=== PATIENT | female | born 1930 | race Caucasian/White ===

== ENCOUNTER → 2016-11-15 | Outpatient (CLI) | payer MEDICARE, OTHER ==
[~2016-11-15] MED LIST: ACTOS15 MG; AML2.5T PO; AMLO2.5T PO; AMLO5TAB2 PO; AMOX250C PO; APIX5TAB PO; APIX5TAB2 PO; ASP81CT; ASPI-875 PO; ATOR40TA70 PO; CLOP75TA PO; CRESTOR; CRV6.25T PO; DCS100C PO; DILT180C PO; DRON400T PO; DRON400T2 PO; FURO20TA4 PO; HCT25T; HCT25T PO; HYDR-3583 PO; INSASP10V SQ; INSU100C; INSU100C4; INSU100I23 SQ; INSU100I5; INSU100V5 SQ; INSU300I SQ; Insulin Human Lispro SC; LISI20TA PO; LOSA25TA21 PO; LOSA50TA36 PO; LOSA50TA6 PO; METF-380; METF-380 PO; MULT1TAB12 PO; PGLT30T; POTA10TA6 PO; ROSU10TA12; SIMV40TA2 PO; SIMV40TA4 PO; WRF2.5T; WRF5T
--- OUTSIDE RECORDS SUMMARY | 2016-11-15 10:29 | XMS REPORT | Continuity of Care Document ---
Author Author [facility] Organization [facility] Address Unknown Phone Unavailable Care Team Providers Care [employer] Name Role Phone PCP Unavailable Source Comments Some departments are not documenting in the electronic medical record. If you do not see the information that you expected, contact Release of Information in the Health Information Management department at [phone] for further assistance in locating additional records.[facility] Active Allergies and Adverse Reactions Not on File Current Medications Not on file Active Problems Not on file Social History Tobacco Use Types Packs/Day Years Used Date Never Assessed Plan of Care Health Maintenance Due Date Last Done Comments Physical (Comprehensive) 1936 Exam Pertussis Vaccine 1940 Tetanus Vaccine 1946 Breast Cancer Screening 1969 Shingles Vaccine 1989 Osteoporosis Screening 1994 Prevnar/Pneumovax (#1) 1994 Influenza Vaccine 05/19/2015 Results from Last 3 Months Not on file
[2016-11-15 11:09] LABS: CHOLESTEROL 137 MG/DL (< 200); DIRECT LDL 66 MG/DL (1-129); TRIGLYCERIDES 104 MG/DL (<150); VLDL CHOLESTEROL 21 MG/DL (5-40)
== END ==
LOC: LAB 10:25
PROVIDERS: ATTEND Internal Medicine Endocrinology, Diabetes & Metabolism
DX: E11.9 Type 2 diabetes mellitus without complications (principal)
CPT/HCPCS: 36415; 80061

== ENCOUNTER 2017-05-26 07:49 | Emergency (ER) | payer MEDICARE, OTHER ==
[~2017-05-26] VITALS: Ht 152.4 cm; Wt 54.4 kg
--- NOTE | 2017-05-26 08:35 | ED Cardiac General ---
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 She presents this morning with a complaint of chest pressure, shortness of breath, palpitations. She is known to have intermittent atrial fibrillation and takes multaq and Eliquis. EKG on arrival showed atrial fibrillation with a rate of 143. Shortly thereafter this resolved to a sinus rhythm. She states that this is the first time and nearly 2 years that she has had these symptoms. Timing/Duration: 1-3 hours Location: central Modifying Factors: improves with palpation Allergies and Home Medications Allergies Coded Allergies: No Known Drug Allergies (Unverified , 11/03/09) Home Medications Amlodipine Besylate 2.5 Mg Tablet, 5 MG PO DAILY, #90 LAST FILLED #90 03-22-16 Prescribed by: JONN YAO on 08/17/16 174 Apixaban 5 Mg Tablet, 5 MG PO BID, (Reported) LAST FILLED #180 03-28-16 Atorvastatin Calcium 40 Mg Tablet, 40 MG PO HS, (Reported) Dronedarone HCl 400 Mg Tablet, 400 MG PO BID, (Reported) LAST FILLED #60 07-07-16 Furosemide 20 Mg Tablet, 20 MG PO DAILY PRN for EDEMA, (Reported) Insulin Glargine,Hum.rec.anlog 300 Unit/1 Ml Insuln.pen, 35 UNIT SQ HS, ( Reported) Insulin Lispro 100 Unit/1 Ml Insuln.pen, 8 UNIT SQ AC, (Reported) Losartan Potassium 50 Mg Tablet, 100 MG PO DAILY, #30 Ref 6 Prescribed by: JONN YAO on 08/17/16 174 Potassium Chloride 10 Meq Tablet.sa, 10 MEQ PO DAILY PRN for WHEN TAKING FUROSEMIDE, (Reported) Review of Systems Constitutional: see HPI EENTM: No Symptoms Reported Respiratory: Shortness of Air Cardiovascular: Chest Pain, Irregular Heart Rate, Lightheadedness, Palpitations Gastrointestinal: No Symptoms Reported Genitourinary: No Symptoms Reported Musculoskeletal: no symptoms reported Skin: no symptoms reported Psychiatric/Neurological: No Symptoms Reported Endocrine: No Symptoms Reported Hematologic/Lymphatic: No Symptoms Reported Past Xkuzsqp-Uqmpjk-Pnavjq Hx Patient Social History Recent Foreign Travel: No Contact w/Someone Who Travel: No Recent Hopitalizations: Yes Immunizations Up To Date Tetanus Booster (TDap): Unknown Date of Pneumonia Vaccine: Jun 11, 2013 Date of Influenza Vaccine: Jun 20, 2016 Cardiovascular Cardiac Disorders: Atrial Fibrillation, Hypertension, Peripheral Vascular Reproductive System Hx Reproductive Disorders: No Sexually Transmitted Disease: No HIV/AIDS: No Genitourinary Genitourinary Disorders: Renal Failure Musculoskeletal Musculoskeletal Disorders: Arthritis Endocrine Endocrine Disorders: Diabetes, Insulin dep HEENT HEENT Disorders: Cataract Hearing Impairment: Hard of Hearing, Bilateral Hearing Aide Family Medical History Significant Family History: Heart Disease, Diabetes, Hypertension, Stroke Family Medial History: Alzheimer's disease 19 MOTHER, Arthritis 19 FATHER, 19 MOTHER, G8 BROTHER, G8 BROTHER, G8 BROTHER G8 SISTER G8 SISTER Cardiovascular disease 19 MOTHER, G8 BROTHER, Completed stroke 19 MOTHER, G8 SISTER Hypercholesterolemia 19 FATHER, G8 BROTHER, Hypertension 19 MOTHER, Myocardial infarction 19 FATHER, G8 BROTHER, Physical Exam Vital Signs Vital Sign - Last 12Hours 05/26/17 07:49 Temp 97.5 Pulse 130 Resp 20 B/P (MAP) 192/116 Pulse Ox 97 Capillary Refill : General Appearance: Mild Distress HEENT: Normal ENT Inspection Neck: Normal Inspection Respiratory: Chest Non Tender, Lungs Clear, Normal Breath Sounds, No Accessory Muscle Use, No Respiratory Distress Cardiovascular: Regular Rate, Rhythm, No Edema, No Gallop, No JVD, No Murmur, Normal Peripheral Pulses Gastrointestinal: Normal Bowel Sounds, No Organomegaly, No Pulsatile Mass, Non Tender Extremity: Normal Capillary Refill, Normal Inspection, Normal Range of Motion, Non Tender, No Calf Tenderness, No Pedal Edema Neurologic/Psychiatric: Alert, Oriented x3, No Motor/Sensory Deficits, Normal Mood/Affect Skin: Normal Color, Warm/Dry Lymphatic: No Adenopathy Progress/Results/Core Measures Results/Orders Lab Results Laboratory Tests Test 05/26/17 08:30 05/26/17 08:50 Range/Units White Blood Count 8.0 4.3-11.0 10^3/uL Red Blood Count 5.01 4.35-5.85 10^6/uL Hemoglobin 14.6 11.5-16.0 G/DL Hematocrit 45 35-52 % Mean Corpuscular Volume 89 80-99 FL Mean Corpuscular Hemoglobin 29 25-34 PG Mean Corpuscular Hemoglobin Concent 33 32-36 G/DL Red Cell Distribution Width 14.9 H 10.0-14.5 % Platelet Count 409 H 130-400 10^3/uL Mean Platelet Volume 10.8 H 7.4-10.4 FL Neutrophils (%) (Auto) 54 42-75 % Lymphocytes (%) (Auto) 34 12-44 % Monocytes (%) (Auto) 8 0-12 % Eosinophils (%) (Auto) 4 0-10 % Basophils (%) (Auto) 1 0-10 % Neutrophils # (Auto) 4.3 1.8-7.8 X 10^3 Lymphocytes # (Auto) 2.7 1.0-4.0 X 10^3 Monocytes # (Auto) 0.6 0.0-1.0 X 10^3 Eosinophils # (Auto) 0.3 0.0-0.3 10^3/uL Basophils # (Auto) 0.0 0.0-0.1 10^3/uL Prothrombin Time 14.9 H 12.2-14.7 SEC INR Comment 1.2 0.8-1.4 Sodium Level 141 135-145 MMOL/L Potassium Level 4.0 3.6-5.0 MMOL/L Chloride Level 109 H 98-107 MMOL/L Carbon Dioxide Level 20 L 21-32 MMOL/L Anion Gap 12 5-14 MMOL/L Blood Urea Nitrogen 20 H 7-18 MG/DL Creatinine 1.15 0.60-1.30 MG/DL Estimat Glomerular Filtration Rate 45 BUN/Creatinine Ratio 17 Glucose Level 388 H 70-105 MG/DL Calcium Level 10.2 H 8.5-10.1 MG/DL Total Bilirubin 0.3 0.1-1.0 MG/DL Aspartate Amino Transf (AST/SGOT) 23 5-34 U/L Alanine Aminotransferase (ALT/SGPT) 21 0-55 U/L Alkaline Phosphatase 152 H 40-136 U/L Troponin I < 0.30 <0.30 NG/ML Total Protein 7.0 6.4-8.2 GM/DL Albumin 3.6 3.2-4.5 GM/DL My Orders Orders - SELMA RUIZ MD Cbc With Automated Diff (05/26/17 08:01) Comprehensive Metabolic Panel (05/26/17 08:01) Troponin I (05/26/17 08:01) Ua Culture If Indicated (05/26/17 08:01) Continuous Ekg Monitoring (05/26/17 08:01) Ekg Tracing (05/26/17 08:01) Protime With Inr (05/26/17 08:14) Chest 1 View, Ap/Pa Only (05/26/17 08:14) Vital Signs/I&O Vital Sign - Last 12Hours 05/26/17 07:49 Temp 97.5 Pulse 130 Resp 20 B/P (MAP) 192/116 Pulse Ox 97 Departure Communication (Admissions) Progress Notes Discussed with Dr. Rivas at [id number]. He recommended no medication changes at this time. She is to call him for an appointment early next week. Upon informing him that she also does not take any beta elisa he recommended Toprol 25 XL. Impression Impression: Primary Impression: paroxysmal atrial fibrillation with rapid ventricular response Disposition: HOME, SELF-CARE Condition: Improved Departure-Patient Inst. Decision time for Depature: 09:29 Referrals: JONN YAO MD (PCP/Family) Primary Care Physician Patient Instructions: Atrial Fibrillation (DC) Add. Discharge Instructions: Continue present medications. Dr. Rivas has advised we add Toprol. Fill this prescription and begin today. Call Dr. Rivas at [phone] for an appointment in approximately one week. Scripts Metoprolol Succinate (Toprol Xl) 25 Mg Tab.er.24h 25 MG PO DAILY, #30 TAB Prov: SELMA RUIZ MD 05/26/17 SELMA RUIZ MD May 26, 2017 08:35
[2017-05-26 08:37] LABS: BASOPHILS % (AUTO) 1 % (0-10); EOSINOPHILS # (AUTO) 0.3 10^3/uL (0.0-0.3); EOSINOPHILS % (AUTO) 4 % (0-10); LYMPHOCYTES # (AUTO) 2.7 X 10^3 (1.0-4.0); LYMPHOCYTES % (AUTO) 34 % (12-44); MEAN CORPUSCULAR HEMOGLOBIN 29 PG (25-34); MEAN CORPUSCULAR HGB CONC 33 G/DL (32-36); MEAN CORPUSCULAR VOLUME 89 FL (80-99); MEAN PLATELET VOLUME 10.8 FL (7.4-10.4); MONOCYTES # (AUTO) 0.6 X 10^3 (0.0-1.0); MONOCYTES % (AUTO) 8 % (0-12); NEUTROPHILS # (AUTO) 4.3 X 10^3 (1.8-7.8); NEUTROPHILS % (AUTO) 54 % (42-75); PLATELET COUNT 409 10^3/uL (130-400); RED BLOOD COUNT 5.01 10^6/uL (4.35-5.85); RED CELL DISTRIBUTION WIDTH 14.9 % (10.0-14.5)
--- NOTE | 2017-05-26 08:42 | Diagnostic Imaging Report ---
INDICATION: History of atrial fibrillation. COMPARISON: 08/16/2016. FINDINGS: Upright portable view of the chest is obtained. Heart size is normal. The pulmonary vessels appear unremarkable. There is no pneumothorax, mediastinal widening, or pleural fluid. The lungs appear clear. IMPRESSION: No radiographic evidence of an acute cardiopulmonary abnormality. No significant interval change from the prior study. Dictated by: Dictated on workstation # [id number]
[2017-05-26 08:47] LABS: INR 1.2 (0.8-1.4); PROTHROMBIN TIME PATIENT 14.9 SEC (12.2-14.7)
[2017-05-26 08:55] LABS: BILIRUBIN,URINE NEGATIVE (NEGATIVE); KETONES,URINE NEGATIVE (NEGATIVE); LEUKOCYTE ESTERASE ,URINE NEGATIVE (NEGATIVE); NITRITE,URINE NEGATIVE (NEGATIVE); PH,URINE 7 (5-9); PROTEIN,URINE 3+ (NEGATIVE); UROBILINOGEN,URINE NORMAL (NORMAL)
[2017-05-26 08:57] LABS: ALANINE AMINOTRANSFERASE 21 U/L (0-55); ALBUMIN 3.6 GM/DL (3.2-4.5); ANION GAP 12 MMOL/L (5-14); ASPARTATE AMINO TRANSFERASE 23 U/L (5-34); BILIRUBIN,TOTAL 0.3 MG/DL (0.1-1.0); BLOOD UREA NITROGEN 20 MG/DL (7-18); BUN/CREATININE RATIO 17; CALCIUM 10.2 MG/DL (8.5-10.1); CARBON DIOXIDE 20 MMOL/L (21-32); CHLORIDE 109 MMOL/L (98-107); CREATININE SERUM 1.15 MG/DL (0.60-1.30); GFR ESTIMATED 45; GLUCOSE 388 MG/DL (70-105); SODIUM 141 MMOL/L (135-145)
[2017-05-26 09:03] LABS: TROPONIN I < 0.30 NG/ML (<0.30)
[2017-05-26 09:25] LABS: WBC,URINE RARE /HPF
[2017-05-26] MEDS ORDERED: METO-351 PO (09:31)
[2017-05-26 10:40] VITALS: BP 172/86
== END 2017-05-26 10:40 | disposition home or self-care (01) ==
LOC: EDUNIT# 07:49 → ER 07:56
DX: I48.0 Paroxysmal atrial fibrillation (principal); I10 Essential (primary) hypertension; I73.9 Peripheral vascular disease, unspecified; M19.90 Unspecified osteoarthritis, unspecified site; E11.9 Type 2 diabetes mellitus without complications; Z79.01 Long term (current) use of anticoagulants; Z79.4 Long term (current) use of insulin; Z82.49 Family history of ischemic heart disease and other diseases of the circulatory system
CPT/HCPCS: 36415; 71010; 80053; 81000; 84484; 85025; 85610; 87088; 93005

== ENCOUNTER 2017-07-27 14:17 | Outpatient (RCR) | payer MEDICARE, OTHER ==
[~2017-07-27 14:17] MED LIST changes: +METO-351 PO
== END 2017-07-27 15:15 | disposition home or self-care (01) ==
PROVIDERS: ATTEND Family Medicine
DX: R26.2 Difficulty in walking, not elsewhere classified (principal); E11.9 Type 2 diabetes mellitus without complications; I10 Essential (primary) hypertension; Z79.4 Long term (current) use of insulin

== ENCOUNTER → 2017-08-04 | Outpatient (CLI) | payer MEDICARE, OTHER ==
[2017-08-04 11:11] LABS: ALBUMIN 3.3 GM/DL (3.2-4.5); BILIRUBIN,TOTAL 0.6 MG/DL (0.1-1.0); CALCIUM 9.5 MG/DL (8.5-10.1); CREATININE SERUM 1.04 MG/DL (0.60-1.30); POTASSIUM 3.8 MMOL/L (3.6-5.0); TOTAL PROTEIN 6.6 GM/DL (6.4-8.2)
== END ==
LOC: LAB 10:35
PROVIDERS: ATTEND Physician Assistant
DX: I25.10 Atherosclerotic heart disease of native coronary artery without angina pectoris (principal); I10 Essential (primary) hypertension; E78.2 Mixed hyperlipidemia
CPT/HCPCS: 36415; 80053; 80061

== ENCOUNTER 2017-08-22 14:21 | Inpatient (IN) | payer MEDICARE, OTHER ==
[~2017-08-22] VITALS: Ht 147.3 cm; Wt 55.5 kg
[2017-08-22 14:45] VITALS: BP 131/68
[2017-08-22] MEDS ORDERED: INSU100I23 SQ (15:34)
[2017-08-22] MEDS ORDERED: AMLO2.5T PO (15:34)
[2017-08-22] MEDS ORDERED: METO-387 PO (15:34)
[2017-08-22] MEDS ORDERED: FURO20TA4 PO (15:34)
[2017-08-22] MEDS ORDERED: SITA50TA PO (15:34)
[2017-08-22] MEDS ORDERED: POTA10TA10 PO (15:34)
[2017-08-22] MEDS ORDERED: LOSA50TA36 PO (15:34)
--- NOTE | 2017-08-22 15:36 | ST Cognitive Linguistic Eval ---
Speech Evaluation-General Medical Diagnosis Debility Therapy Diagnosis Therapy Diagnosis: Cognitive Linguistic Skills WNL Referral Referring Physician: Dr. Aubrey Tipton Reason for Referral: Evaluation/Treatment Cognitive Evaluation Speech PLF-Current Status Prior Level of Function The patient denied prior challenges with speech, language, or cognition. Per patient, she is hard of hearing. Subjective The patient was recently admitted with a diagnosis of debility. The patient greeted the clinician appropriately and was agreeable to participation in the cognitive evaluation. Language Eval: Auditory Comprehends Simple Yes/No Ques: Functional Indent/Objects Multiple [place]: Functional Ident/Pics in Multiple [place]: Functional Follows 1-Step Commands: Functional Follows Complex Directions: Functional Follows General Conversations: Functional Language Eval: Verbal Language Completes Spontaneous Greeting: Functional Produces Auto, Serial Info: Functional Imitates Simple Words/Phrases: Functional Word Finding: Functional Requests Basic Needs: Functional States Basic Personal Info: Functional Expresses Complex Ideas: Functional Cognitive Patient Orientation The patient is independently oriented to self, location, month, day of week, and year. Objective Cognitive Domain Attention: WNL Problem Solving: Functional Objective Impression The patient displayed cognitive linguistic skills WNL. Communication/Social Cognition Comprehension: 6 Expression: 6 Social Interaction: 6 Problem Solvin Memory: 5 Speech Patient Assess Expression of Ideas/Wants: Expression (4) Understanding Vebal Content: Understands (4) Brief Interview-Mental Status: Yes Repetition of Three Words: Three (3) Temporal Orientation: Year: Correct (3) Temporal Orientation: Month: Accurate within 5 days(2) Temporal Orientation: Day: Correct (1) Recall : Wear to say "Sock": Yes, no cue required (2) Recall : Color: Yes, no cue required (2) Recall : Bed: Yes, no cue required (2) Speech-Plan Treatment Plan Speech Therapy Treatment Plan: Discontinue ST Evaluation, only. Frequency: Modified Program (IRF) Estimated Hrs Per Day: Other Rehab Potential: Good Safety Risks/Education Teaching Recipient: Patient, Family, Significant Other Teaching Methods: Discussion Response to Teaching: Verbalize Understanding Education Topics Provided: Results, Recommendations, Plan of Care Time Speech Therapy Time In: 14:56 Speech Therapy Time Out: 15:10 Total Billed Time: 14 Billed Treatment Time 1, WES SANTOS Aug 22, 2017 15:36
--- NOTE | 2017-08-22 15:40 | Physical Therapy Evaluation ---
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 PT Evaluation-Current Subjective Patient sitting EOB pre tx visiting with family. He states she has 9/10 pain in her posterior right hip and the back of her head. Apparently she hit these areas when she fell. Pt/Family Goals to be independent at home Objective Patient Orientation: Person, Place, Situation ROM/Strength ROM Lower Extremities WNL Strenght Lower Extremities 4+/5 gross bilateral lower extremities Neuromuscular (Tone, Coordination, Reflexes) normal tone but coordination shown when stepping during ambulation Sensory Vision: Wears Glasses Hearing: Impaired Sensation Right Lower Extremit: Intact Sensation Left Lower Extremity: Intact Sensation Lower Extremities Patient has no complaints of numbness or tingling. Transfers Functional [place] Measure 0=Not Assessed/NA 4=Minimal Assistance 1=Total Assistance 5=Supervision or Setup 2=Maximal Assistance 6=Modified [place] 3=Moderate Assistance 7=Complete IndependenceIRFPAI Quality Coding Scale 6 Independent with activity with or without an assistive device 5 Patient requires set up or clean up by helper. Patient completes activity by themselves 4 Supervision or touching assist (CGA). [place] provide cues , steadying assist 3 The helper provides less than half the effort to complete the activity 2 The helper provides more than half the effort to complete the activity 1 Dependent. The helper does all the effort to complete an activity 7 Patient refused to complete or attempt activity 9 The patient did not perform the activity before the current illness or injury 88 Not attempted due to Medical conditions or safety concerns Transfers (B, C, W/C) (FIM): 4 Scootin Rollin Roll Left to Right (QC): 4 Supine to/from Sit: 5 Sit to/from Stand: 4 Sit to Lying (QC): 4 Lying to Sitting/Side of Bed(Q: 4 Sit to Stand (QC): 4 Chair/Khg-ze-Puccb Xfer(QC): 4 Car Transfer (QC): 4 Patient performs bed mobility with SBA, transfers with CGA, and car transfer with CGA. Gait Does the Patient Walk?: Yes Mode of Locomotion: Walk Anticipated Mode of Locomotion: Walk Gait (FIM): 4 Walk 10 feet (QC): 4 Walk 50 ft with 2 Turns(QC): 4 Walk 150 ft (QC): 4 Walking 10ft/uneven surface-QC: 4 Distance: 150', 300' Gait Level of Assist: 4 Gait Persons Needed: 1 Gait Assistive Device: Cane Single Point Comments/Gait Description Patient can ambulate 300' with a single point cane with CGA, including 50' with at least 2 turns of 90 degrees and 10' over an uneven surface. She is fairly unsteady but had no LOB, she tends to lean too far forward but has been able to catch herself without cues. Wheelchair Training Does the Pt Use a Wheelchair?: No Stairs Stairs (FIM): 2 #of Steps: 4 Level of Assist: 4 1 Step (curb) (QC): 4 4 Steps (QC): 4 12 Steps (QC): 88 Patient can go up and down 4 steps using 1 handrail with CGA and cues for foot placement. Balance Sitting Static: Normal Sitting Dynamic: Normal Standing Static: Fair Standing Dynamic: Fair Picking up an Object (QC): 4 (CGA) Treatment Patient scored 20/28 on the Tinetti Assessment Tool Assessment/Needs Patient has impairments in balance, mobility, strength, and endurance. She is at risk for a fall. Rehab Potential: Fair PT Short Term Goals Short Term Goals Time Frame: Aug 29, 2017 Transfers (B,C,W/C) (FIM): 5 Gait (FIM): 5 Gait Distance Comment: 400' Gait Level of Assist: 5 Gait Assistive Device: Cane Single Point PT Tennis Desk Team Member Goals Skilled Nursing Goals PT Skilled Nursing Goals Time Frame: Sep 12, 2017 Transfers (B,C,W/C) (FIM): 6 Sit to Lying (QC): 6 Lying-Sitting on Side/Bed(QC): 6 Sit to Stand (QC): 6 Rollin Roll Left to Right (QC): 6 Chair/Vih-ne-Dfzmf Xfer(QC): 6 Car Transfer (QC): 6 Gait (FIM): 6 Distance: 500' Walk 10 feet (QC): 6 Walk 10ft-Uneven Surface(QC): 6 Walk 50ft with 2 Turns (QC): 6 Walk 150 ft (QC): 6 Gait Level of Assist: 6 Gait Assistive Device: Cane Single Point Stairs (FIM): 5 # of Steps: 12 1 Step (curb) (QC): 4 4 Steps (QC): 4 12 Steps (QC): 4 Stairs Level Of Assist: 5 Picking up an Object (QC): 4 (SBA) PT Plan Problem List Problem List: Activity Tolerance, Functional Strength, Safety, Balance, Gait, Transfer, Bed Mobility Treatment/Plan Treatment Plan: Continue Plan of Care Treatment Plan: Bed Mobility, Concurrent Therapy, Education, Functional Activity Ravi, Functional Strength, Group Therapy, Gait, Safety, Therapeutic Exercise, Transfers Treatment Duration: Sep 12, 2017 Frequency: At least 5 of 7 days/Wk (IRF) Estimated Hrs Per Day: 1.5 hours per day Patient and/or Family Agrees t: Yes Safety Risks/Education Patient Education: Gait Training, Transfer Techniques, Steps, Correct Positioning, Safety Issues Teaching Recipient: Patient Teaching Methods: Demonstration, Discussion Response to Teaching: Reinforcement Needed Discharge Recommendations Plan Patient will perform bed mobility and transfer training, balance and endurance training, functional strengthening, stair training, gait training, and education , to improve functional mobility and independence at home. Therapy D/C Recommendations: Home w/ Family Support Time/GCodes Time In: 1510 Time Out: 1540 Total Billed Treatment Time: 30 Total Billed Treatment 1 visit VIKTORIA 30' KELTON PALMER PT Aug 22, 2017 15:40
[2017-08-22] MEDS ORDERED: inSUlin ASPART (NovoLOG) 1 UNIT/0.01 ML (CHARGE PER UNIT) SC SCH (16:00)
[2017-08-22] MEDS: inSUlin (REGULAR) HUMAN 1 UNIT/0.01 ML (CHARGE PER UNIT) SC SCH ×2 (16:26→20:57)
[2017-08-22] MEDS ORDERED: KCL 10 MEQ TAB (MICRO K) PO PRN (16:30)
[2017-08-22] MEDS ORDERED: FUROSEMIDE 20 MG (LASIX) TAB PO PRN (16:30)
[2017-08-22 19:26] VITALS: BP 125/52
[2017-08-22] MEDS: CARVEDILOL 12.5 MG (COREG) TABLET PO SCH (20:56)
[2017-08-22] MEDS: APIXABAN 5 MG (ELIQUIS) TABLET PO SCH (20:57)
[2017-08-22] MEDS: ATORVASTATIN 40 MG (LIPITOR) TABLET PO SCH (20:57)
[2017-08-22] MEDS: DRONEDARONE TABLET 400 MG TABLET PO SCH (20:57)
[2017-08-22] MEDS: inSUlin DETERMIR 1 UNIT/0.01 ML (LEVEMIR) CHARGE PER UNIT SQ SCH (20:57)
[2017-08-23] MEDS: inSUlin (REGULAR) HUMAN 1 UNIT/0.01 ML (CHARGE PER UNIT) SC SCH ×4 (05:08→20:53)
[2017-08-23] MEDS: PANTOPRAZOLE 20 MG TABLET (PROTONIX) PO SCH (06:36)
[2017-08-23 06:42] VITALS: BP 118/67
--- NOTE | 2017-08-23 08:16 | History & Physicial ---
History of Present Illness History of Present Illness Reason for visit/HPI patient was in [place] and had syncope episode. Patient was sent [facility] [place]. Patient had hypertension malignant and A. fib with RVR. Patient admitted. Patient states she had 2 surgeries but doesn't know what they are. Patient states 10-2 = 6. Patient had a mild elevated troponin probably due to ischemia with RVR. Patient diabetic. Patient has chronic kidney disease. Patient has baseline dementia. Patient has generalized weakness Date of Admission Aug 22, 2017 at 14:37 Time Seen by Provider: 08:05 I consulted on this patient on 08/23/17 08:12 Attending Physician Aubrey Tipton MD Admitting Physician Kate Sow MD Consult Allergies and Home Medications Allergies Coded Allergies: No Known Drug Allergies (Unverified , 11/03/09) Home Medications Amlodipine Besylate 2.5 Mg Tablet, 2.5 MG PO DAILY, (Reported) Apixaban 5 Mg Tablet, 5 MG PO BID, (Reported) Atorvastatin Calcium 40 Mg Tablet, 40 MG PO HS, (Reported) Dronedarone HCl 400 Mg Tablet, 400 MG PO BID, (Reported) Furosemide 20 Mg Tablet, 20 MG PO DAILY PRN for SWELLING, (Reported) Insulin Glargine,Hum.rec.anlog 300 Unit/1 Ml Insuln.pen, 35 UNIT SQ HS, ( Reported) Insulin Lispro 100 Unit/1 Ml Insuln.pen, SQ SLIDING/SCALE, (Reported) Insulin Lispro 100 Unit/1 Ml Insuln.pen, SQ SLIDING/SCALE, (Reported) Losartan Potassium 50 Mg Tablet, 50 MG PO DAILY, (Reported) Metoprolol Succinate 25 Mg Tab.er.24h, 25 MG PO DAILY, (Reported) Potassium Chloride 10 Meq Tablet.er, 10 MEQ PO DAILY PRN for WITH FUROSEMIDE, ( Reported) Sitagliptin Phosphate 50 Mg Tablet, 50 MG PO DAILY, (Reported) Past Ncvhsnx-Owpvjm-Iydpel Hx Patient Social History Employed/Student: unemployed Alcohol Use: Occasionally Uses Alcohol Beverage of Choice: Rum Recreational Drug Use: No Smoking Status: Never a Smoker Physical Abuse Screen: No Sexual Abuse: No Recent Foreign Travel: No Contact w/other who traveled: No Recent Hopitalizations: Yes ([place] WITH [employer]) Recent Infectious Disease Expo: No Immunizations Up To Date Tetanus Booster (TDap): Unknown Pediatric: No Date of Pneumonia Vaccine: Jun 11, 2013 Date of Influenza Vaccine: Aug 08, 2017 Seasonal Allergies Seasonal Allergies: No Surgeries Yes (RIGHT FOOT SURGERY) Respiratory No Currently Using CPAP: No Currently Using BIPAP: No Cardiovascular Yes (STENTS, MONITOR PLACED BY DR. REHMAN) Atrial Fibrillation, Hypertension, Peripheral Vascular Neurological No Reproductive System Hx Reproductive Disorders: No Sexually Transmitted Disease: No HIV/AIDS: No Genitourinary Renal Failure Gastrointestinal No Musculoskeletal Yes (MINOR ARTHRITIS IN BILATERAL HANDS) Arthritis Endocrine History of Endocrine Disorders: Yes Endocrine Disorders: Diabetes, Insulin dep Are Your Blood Sugars Over 250: Yes HEENT History of HEENT Disorders: Yes HEENT Disorders: Cataract Hearing Impairment: Hard of Hearing, Bilateral Hearing Aide Cancer No Psychosocial History of Psychiatric Problem: No Integumentary History of Skin or Integumenta: No Blood Transfusions History of Blood Disorders: No Family Medical History Significant Family History: Heart Disease, Diabetes, Hypertension, Stroke Family Hx: Alzheimer's disease 19 MOTHER, Arthritis 19 FATHER, 19 MOTHER, G8 BROTHER, G8 BROTHER, G8 BROTHER G8 SISTER G8 SISTER Cardiovascular disease 19 MOTHER, G8 BROTHER, Completed stroke 19 MOTHER, G8 SISTER Hypercholesterolemia 19 FATHER, G8 BROTHER, Hypertension 19 MOTHER, Myocardial infarction 19 FATHER, G8 BROTHER, Constitutional: malaise, weakness EENTM: no symptoms reported Respiratory: no symptoms reported Cardiovascular: no symptoms reported Gastrointestinal: no symptoms reported Genitourinary: no symptoms reported Physical Exam Vital Signs Vital Sign - Last 12Hours 08/22/17 14:45 Temp 99.2 Pulse 61 Resp 16 B/P (MAP) 131/68 (89) Pulse Ox 97 O2 Delivery Room Air Capillary Refill : Less Than 3 Seconds General Appearance: No Apparent Distress Eyes: Bilateral Eye Normal Inspection HEENT: Normal ENT Inspection Neck: Full Range of Motion, Normal Inspection Respiratory: Chest Non Tender, Lungs Clear, No Accessory Muscle Use, No Respiratory Distress Cardiovascular: Regular Rate, Rhythm, No Murmur Gastrointestinal: Non Tender, Soft Assessment/Plan Assessment and Plan debility. Uncontrolled hypertension. A. fib with RVR. Syncope. Diabetes type II. History of COPD. Baseline dementia. generalized weakness Problems: Clinical Quality Measures DVT/VTE Risk/Contraindication: Risk Factor Score Per Nursin RFS Level Per Nursing on Admit: 3=High SHEMAR CORTEZ DO Aug 23, 2017 08:16
[2017-08-23] MEDS: CARVEDILOL 12.5 MG (COREG) TABLET PO SCH ×2 (09:51→20:53)
[2017-08-23] MEDS: ASPIRIN 81 MG CHEW (CHILDREN'S ASA) PO SCH (09:51)
[2017-08-23] MEDS: APIXABAN 5 MG (ELIQUIS) TABLET PO SCH ×2 (09:51→20:53)
[2017-08-23] MEDS: DRONEDARONE TABLET 400 MG TABLET PO SCH ×2 (09:51→20:53)
[2017-08-23] MEDS: inSUlin DETERMIR 1 UNIT/0.01 ML (LEVEMIR) CHARGE PER UNIT SQ SCH ×2 (09:51→20:53)
[2017-08-23] MEDS: LOSARTAN 50 MG (COZAAR) TAB PO SCH (09:51)
[2017-08-23] MEDS: amLODIPine 2.5MG (NORVASC) TAB PO SCH (09:51)
--- NOTE | 2017-08-23 10:13 | Occupational Therapy Eval ---
OT Evaluation-General/PLF Medical Diagnosis Admission Date Aug 22, 2017 at 14:37 Medical Diagnosis: debility Onset Date: Aug 16, 2017 Therapy Diagnosis Therapy Diagnosis: decr safety, decr func mobility, decr self care, weakness Height/Weight Height (Feet): 4 Height (Inches): 10.00 Weight (Pounds): 119 Weight (Ounces): 6.0 Precautions Precautions/Isolations: Fall Prevention, Standard Precautions Safety Interventions: Reorient-PRN Referral Physician: Saeed Referral Reason: Evaluation/Treatment Medical History Pertinent Medical History: Atrial Fib, CAD, DM, Dementia, HTN Additional Medical History Coronary stent, pacemaker. cataract surgery. hard of hearing Current History Pt found on floor at store in [employer]. She said she had a syncopal episode and felt her self falling backwards. She has a hematoma on the back of her head and pain in her low back. She also reported chronic pain posterior R hip area. Reviewed History: Yes Social History Home: Single Level Current Living Status: Spouse Entry Into Home: Stairs With Railing Steps Into Home: 3 ADL-Prior Level of Function ADL PLOF Comments Pt reported that she was able to manage all of her basic self care needs prior to fall. She also cooks, cleaned, did laundry but does not drive. She and her care for two dogs. 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 Pt reported discomfort in low back but did not rate or describe it. Appearance Alert, oriented Current Glasses/Contacts: Yes Hearing Aids: Yes (bilat) Dentures/Partials: No Upper Extremity ROM grossly WFL bilat. Some arthritic changes in hands Upper Extremity Sensation Pt reported no problems Upper Extremity Strength Grossly 4/5 bilat ADL-Treatment Functional [place] Measure 0=Not Assessed/NA 4=Minimal Assistance 1=Total Assistance 5=Supervision or Setup 2=Maximal Assistance 6=Modified [place] 3=Moderate Assistance 7=Complete IndependenceIRFPAI Quality Coding Scale 6 Independent with activity with or without an assistive device 5 Patient requires set up or clean up by helper. Patient completes activity by themselves 4 Supervision or touching assist (CGA). [place] provide cues , steadying assist 3 The helper provides less than half the effort to complete the activity 2 The helper provides more than half the effort to complete the activity 1 Dependent. The helper does all the effort to complete an activity 7 Patient refused to complete or attempt activity 9 The patient did not perform the activity before the current illness or injury 88 Not attempted due to Medical conditions or safety concerns Eating (FIM): 7 (No problems opening packages, getting food to mouth. No dentures. Helped order breakfast because pt KOI and cannot hear to place order. pt education modified technique for ordering meals) Eating (QC): 6 Grooming (FIM): 5 (Pt stood at sink to brush hair and teeth with SBA with no observed LOB. Washed hands and face in shower. Cane for balance.) Oral Hygiene (QC): 4 Bathing (FIM): 5 (Pt able to wash 10 parts with supervision, standing with SBA. Pt not able to turn water on/off but could retrieve towel. Shower bench, hand held shower, grab bars, ) Shower/Bathe Self (QC): 4 Upper Body Dressing (FIM): 5 (Pt able to doff and don pullover shirt and bra while standing with SBA with no observed LOB. ) Upper Body Dressing (QC): 4 Lower Body Dressing (FIM): 5 (Pt able to doff and don underwear and pants with SBA with no observed LOB. ) Lower Body Dressing (QC): 4 On/Off Footwear (QC): 5 (Pt able to don shoes with setup) Toileting (FIM): 5 (Pt able to manage hygiene and clothing with SBA. Tall toilet, grab bars, ) Toileting Hygiene (QC): 4 Toilet/Commode Transfer (FIM): 5 (Pt able to transfer on and off toilet with SBA. Tall toilet, grab bar) Toilet Transfer (QC): 4 Shower Transfer (FIM): 4 (Pt able to transfer on and off shower bench with CGA. Shower bench, grab bar, hand held shower) Pt was on toilet at beginning of tx. Pt walked to shower with CGA. Pt walked from bathroom to EOB to put in hearing aids with CGA, SPC. Other Treatments Pt walked to gym with single point cane and CGA for safety. Pt used arm bike for 10 minutes at 10 rodriguez with no recovery periods. Pt walked back to room with cane and CGA with no observed LOB. Pt in recliner with all needs met at end of tx. Education OT Patient Education: Purpose of tx/functional activities, Rehab process, Safety issues, Transfer techniques, Use of adapted equipment Teaching Recipient: Patient, Family Teaching Methods: Demonstration, Discussion Response to Teaching: Verbalize Understanding, Return Demonstration OT Systems Integration Analyst Goals Snf Goals Time Frame: Sep 01, 2017 Eating (FIM): 7 Eating (QC): 6 Groomin Oral Hygiene (QC): 6 Bathing(FIM): 6 Shower/Bathe Self (QC): 6 Upper Body Dressing(FIM): 6 Upper Body Dressing (QC): 6 Lower Body Dressing(FIM): 6 Lower Body Dressing (QC): 6 On/Off Footwear (QC): 6 Toileting(FIM): 6 Toileting Hygiene (QC): 6 Toilet/Commode Transfer(FIM): 6 Toilet/Commode Transfer (QC): 6 Shower Transfer(FIM): 6 Pt will demonstrate safe techniques for IADLs, using 4WW for steadiness and energy conservation Additional Goals: 2-Verbalize Understanding, 3-ImproveStrength/Ravi 1=Demonstrate adherence to instructed precautions during ADL tasks. 2=Patient will verbalize/demonstrate understanding of assistive devices/ modifications for ADL. 3=Patient will improve strength/tolerance for activity to enable patient to perform ADL's. OT Education/Plan Problem List/Assessment Assessment: Decreased Activ Tolerance, Decreased Safety Aware, Decreased UE Strength, Impaired Funct Balance, Impaired I ADL's ((safety)), Impaired Self- Care Skills Pt would benefit from skilled OT to increase her independence and safety in basic self care and IADLs and to prevent falls Discharge Recommendations Plan/Recommendations: Continue POC Target Placement home Treatment Plan/Plan of Care Treatment,Training & Education: Yes Patient would benefit from OT for education, treatment and training to promote independence in ADL's, mobility, safety and/or upper extremity function for ADL' s. Plan of Care: ADL Retraining, Functional Mobility, Group Exercise/Act as Ind ( education, exercise, funct activities, activ tolerance, memory), UE Funct Exercise/Act, UE Neuromus Re-Ed/Coord Treatment Duration: Sep 01, 2017 Frequency: At least 5 of 7 days/Wk (IRF) Estimated Hrs Per Day: 1.5 hours per day Agreement: Yes Rehab Potential: Fair Time/GCodes Start Time: 08:30 Stop Time: 09:38 Total Time Billed (hr/min): 68 Billed Treatment Time visit, evaluation moderate intensity 10 minutes, ADL 42 minutes, 16 minutes exercise CLIVE WHITAKER OT Aug 23, 2017 10:13
--- NOTE | 2017-08-23 11:56 | Physical Therapy Daily Note ---
PT Daily Note-Current Subjective Pt. agreeable to rx. States she had been doing well then had this sudden incident and fell backwards abruptly. Pain Numeric Pain Scale: 0-No Pain Mental Status Patient Orientation: Normal For Age Transfers Functional [place] Measure 0=Not Assessed/NA 4=Minimal Assistance 1=Total Assistance 5=Supervision or Setup 2=Maximal Assistance 6=Modified [place] 3=Moderate Assistance 7=Complete IndependenceIRFPAI Quality Coding Scale 6 Independent with activity with or without an assistive device 5 Patient requires set up or clean up by helper. Patient completes activity by themselves 4 Supervision or touching assist (CGA). [place] provide cues , steadying assist 3 The helper provides less than half the effort to complete the activity 2 The helper provides more than half the effort to complete the activity 1 Dependent. The helper does all the effort to complete an activity 7 Patient refused to complete or attempt activity 9 The patient did not perform the activity before the current illness or injury 88 Not attempted due to Medical conditions or safety concerns Transfers (B, C, W/C) (FIM): 5 Scootin Rollin Supine to/from Sit: 6 Sit to/from Stand: 5 Gait Training Does the Patient Walk?: Yes Gait (FIM): 4 Distance (FIM): 3=150 ft (x2) Gait Level of Assist: 4 Gait Persons Needed: 1 Gait Assistive Device: Cane Single Point Stair Training Stair Training: Handrails/: 2 handrails Stairs (FIM): 2 #of Steps: 4 Stairs: Pattern: Reciprocal Level of Assist: 4 Exercises Seated Therapy Exercises: Ankle pumps, Sit to stand, Long arc quads, Hip flexion, Hip abd/add Seated Reps: 12 NuStep Minutes: 10 NuStep Workload: 4 Treatments leg presses on nustep x12 Assessment Current Status: Good Progress PT Short Term Goals Short Term Goals Time Frame: Aug 29, 2017 Transfers (B,C,W/C) (FIM): 5 Gait (FIM): 5 Gait Distance Comment: 400' Gait Level of Assist: 5 Gait Assistive Device: Cane Single Point PT [place] Inspector Goals Intermediate Goals PT [place] Inspector Goals Time Frame: Sep 12, 2017 Transfers (B,C,W/C) (FIM): 6 Sit to Lying (QC): 6 Lying-Sitting on Side/Bed(QC): 6 Sit to Stand (QC): 6 Rollin Roll Left to Right (QC): 6 Chair/Vjz-ss-Enxlx Xfer(QC): 6 Car Transfer (QC): 6 Gait (FIM): 6 Distance: 500' Walk 10 feet (QC): 6 Walk 10ft-Uneven Surface(QC): 6 Walk 50ft with 2 Turns (QC): 6 Walk 150 ft (QC): 6 Gait Level of Assist: 6 Gait Assistive Device: Cane Single Point Stairs (FIM): 5 # of Steps: 12 1 Step (curb) (QC): 4 4 Steps (QC): 4 12 Steps (QC): 4 Stairs Level Of Assist: 5 Picking up an Object (QC): 4 (SBA) PT Plan Treatment/Plan Treatment Plan: Continue Plan of Care Treatment Plan: Bed Mobility, Concurrent Therapy, Education, Functional Activity Ravi, Functional Strength, Group Therapy, Gait, Safety, Therapeutic Exercise, Transfers Treatment Duration: Sep 12, 2017 Frequency: At least 5 of 7 days/Wk (IRF) Estimated Hrs Per Day: 1.5 hours per day Patient and/or Family Agrees t: Yes Safety Risks/Education Patient Education: Gait Training, Transfer Techniques, Steps Teaching Recipient: Patient Teaching Methods: Demonstration, Discussion Response to Teaching: Verbalize Understanding, Return Demonstration, Reinforcement Needed Time/GCodes Time In: 1100 Time Out: 1200 Total Billed Treatment Time: 60 Total Billed Treatment 1,GT20m,EX25m,FA15m G Codes Necessary: BARBRA Negrete FARM MACHINERY ENGINE MECHANIC Aug 23, 2017 11:56
--- NOTE | 2017-08-23 14:17 | Physical Therapy Daily Note ---
PT Daily Note-Current Subjective Pt. agrees to Rx. States " I have had trouble mostly with my balance for quite some time" Pain Numeric Pain Scale: 0-No Pain Mental Status Patient Orientation: Normal For Age Transfers Functional [place] Measure 0=Not Assessed/NA 4=Minimal Assistance 1=Total Assistance 5=Supervision or Setup 2=Maximal Assistance 6=Modified [place] 3=Moderate Assistance 7=Complete IndependenceIRFPAI Quality Coding Scale 6 Independent with activity with or without an assistive device 5 Patient requires set up or clean up by helper. Patient completes activity by themselves 4 Supervision or touching assist (CGA). [place] provide cues , steadying assist 3 The helper provides less than half the effort to complete the activity 2 The helper provides more than half the effort to complete the activity 1 Dependent. The helper does all the effort to complete an activity 7 Patient refused to complete or attempt activity 9 The patient did not perform the activity before the current illness or injury 88 Not attempted due to Medical conditions or safety concerns all TRFs SBA Gait Training Gait Assistive Device: Cane Single Point 150 f t x2 CGA to SBA Neuromuscular completed REYES balance with 44/56 score revealing "cane indoors " status Assessment Current Status: Good Progress PT Short Term Goals Short Term Goals Time Frame: Aug 29, 2017 Gait (FIM): 5 Gait Distance Comment: 400' Gait Level of Assist: 5 Gait Assistive Device: Cane Single Point PT Proof Carrier Goals Custodial Goals PT Custodial Goals Time Frame: Sep 12, 2017 Transfers (B,C,W/C) (FIM): 6 Sit to Lying (QC): 6 Lying-Sitting on Side/Bed(QC): 6 Sit to Stand (QC): 6 Rollin Roll Left to Right (QC): 6 Chair/Fnc-zl-Gnnot Xfer(QC): 6 Car Transfer (QC): 6 Gait (FIM): 6 Distance: 500' Walk 10 feet (QC): 6 Walk 10ft-Uneven Surface(QC): 6 Walk 50ft with 2 Turns (QC): 6 Walk 150 ft (QC): 6 Gait Level of Assist: 6 Gait Assistive Device: Cane Single Point Stairs (FIM): 5 # of Steps: 12 1 Step (curb) (QC): 4 4 Steps (QC): 4 12 Steps (QC): 4 Stairs Level Of Assist: 5 Picking up an Object (QC): 4 (SBA) PT Plan Treatment/Plan Treatment Plan: Continue Plan of Care Treatment Plan: Bed Mobility, Concurrent Therapy, Education, Functional Activity Ravi, Functional Strength, Group Therapy, Gait, Safety, Therapeutic Exercise, Transfers Treatment Duration: Sep 12, 2017 Frequency: At least 5 of 7 days/Wk (IRF) Estimated Hrs Per Day: 1.5 hours per day Patient and/or Family Agrees t: Yes Safety Risks/Education Patient Education: Gait Training, Transfer Techniques, Correct Positioning, Safety Issues Teaching Recipient: Patient Teaching Methods: Demonstration, Discussion Response to Teaching: Verbalize Understanding, Return Demonstration, Reinforcement Needed Time/GCodes Time In: 1330 Time Out: 1400 Total Billed Treatment Time: 30 Total Billed Treatment 1,NM30m G Codes Necessary: BARBRA Negrete FIRE CONTROL OFFICER Aug 23, 2017 14:17
--- NOTE | 2017-08-23 14:40 | Occupational Ther Daily Note ---
OT Current Status-Daily Note Subjective Pt in recliner at beginning of tx. Agreeable to therapy. No mention of pain. Appearance Alert, cooperative. Mental Status/Objective Functional [place] Measure 0=Not Assessed/NA 4=Minimal Assistance 1=Total Assistance 5=Supervision or Setup 2=Maximal Assistance 6=Modified [place] 3=Moderate Assistance 7=Complete [place] ADL-Treatment Functional [place] Measure 0=Not Assessed/NA 4=Minimal Assistance 1=Total Assistance 5=Supervision or Setup 2=Maximal Assistance 6=Modified [place] 3=Moderate Assistance 7=Complete IndependenceIRFPAI Quality Coding Scale 6 Independent with activity with or without an assistive device 5 Patient requires set up or clean up by helper. Patient completes activity by themselves 4 Supervision or touching assist (CGA). [place] provide cues , steadying assist 3 The helper provides less than half the effort to complete the activity 2 The helper provides more than half the effort to complete the activity 1 Dependent. The helper does all the effort to complete an activity 7 Patient refused to complete or attempt activity 9 The patient did not perform the activity before the current illness or injury 88 Not attempted due to Medical conditions or safety concerns Other Treatment Pt stood from recliner with close SBA and small plastic base tripod cane. Pt walked with tripod cane to gym and did tabletop activity of 1/4 in stem pegs and pegboard. Pt placed and removed 41 pegs while standing to increase standing balance to improve safety during ADLs and IADLs. Pt removed and replaced graduated clothes pins, once while standing to increase standing balance, once while sitting to increase strength to improve transfers. Pt placed and removed 40 pegs into pegboard while seated with 1# weights on wrists to increase strength to improve transfers. Pt walked to room with tripod cane with close SBA. Pt in recliner with all needs met at end of tx. Education OT Patient Education: Purpose of tx/functional activities, Rehab process Teaching Recipient: Patient Teaching Methods: Discussion Response to Teaching: Verbalize Understanding OT Short Term Goals Short Term Goals 1=Demonstrate adherence to instructed precautions during ADL tasks. 2=Patient will verbalize/demonstrate understanding of assistive devices/ modifications for ADL. 3=Patient will improve strength/tolerance for activity to enable patient to perform ADL's. OT Software Tools Developer Goals Longterm Goals Time Frame: Sep 01, 2017 Eating (FIM): 7 Eating (QC): 6 Groomin Oral Hygiene (QC): 6 Bathing(FIM): 6 Shower/Bathe Self (QC): 6 Upper Body Dressing(FIM): 6 Upper Body Dressing (QC): 6 Lower Body Dressing(FIM): 6 Lower Body Dressing (QC): 6 On/Off Footwear (QC): 6 Toileting(FIM): 6 Toileting Hygiene (QC): 6 Toilet/Commode Transfer(FIM): 6 Toilet/Commode Transfer (QC): 6 Shower Transfer(FIM): 6 Pt will demonstrate safe techniques for IADLs, using 4WW for steadiness and energy conservation Additional Goals: 2-Verbalize Understanding, 3-ImproveStrength/Ravi 1=Demonstrate adherence to instructed precautions during ADL tasks. 2=Patient will verbalize/demonstrate understanding of assistive devices/ modifications for ADL. 3=Patient will improve strength/tolerance for activity to enable patient to perform ADL's. OT Education/Plan Problem List/Assessment Pt would benefit from skilled OT to increase her independence and safety in basic self care and IADLs and to prevent falls Discharge Recommendations Plan/Recommendations: Continue POC Treatment Plan/Plan of Care Patient would benefit from OT for education, treatment and training to promote independence in ADL's, mobility, safety and/or upper extremity function for ADL' s. Plan of Care: ADL Retraining, Functional Mobility, Group Exercise/Act as Ind ( education, exercise, funct activities, activ tolerance, memory), UE Funct Exercise/Act, UE Neuromus Re-Ed/Coord Treatment Duration: Sep 01, 2017 Frequency: At least 5 of 7 days/Wk (IRF) Estimated Hrs Per Day: 1.5 hours per day Agreement: Yes Rehab Potential: Fair Time/GCodes Start Time: 12:45 Stop Time: 13:15 Total Time Billed (hr/min): 30 Billed Treatment Time visit, exercise 30 minutes CLIVE WHITAKER OT Aug 23, 2017 14:40
--- NOTE | 2017-08-23 14:55 | PM&R Post Admission Assessment ---
Post Admission Physician Asses The preadmission screen agrees with the post admission assessment that the patient is a good candidate for inpatient rehabilitation. The patient will have a comprehensive program of inpatient rehabilitation with a goal of maximizing level of functional independence prior to discharge home with spouse. The patient will have PT/OT ninety minutes per day, each discipline, five days a week for gait, strengthening, conditioning, balance, ADLs, any patient/family/caregiver training as necessary. Speech therapy to do cognitive assessment and treat as indicated. Rehabilitation nursing to assist with bowel, bladder, skin, wound care, medication administration, pain management. Auto Collision Repair Instructor to assist with discharge planning, community reentry. SCD's for DVT prophylaxis. She appears to be well motivated to participate in three hours of therapy a day. She should be able to tolerate three hours of therapy a day from a medical standpoint. She should benefit from the three hours of therapy a day. She has a reasonable discharge plan, reasonable discharge rehabilitation goals and a supportive family. She has various comorbidities that need to be closely monitored with medications and treatments adjusted on a daily basis as needed. These include: A FIB DM HTN Barriers to discharge for this patient who had been independent prior to this are for her to be modified independent to supervision for ADLs and mobility skills prior to discharge home with spouse, so as to lessen the burden of the caregivers. Risks for this patient include: 1. Fall 2. Fracture 3. DVT 4. Pulmonary embolism 5. Wound infection 6. Skin breakdown 7. Contractures 8. Poorly controlled pain 9. Urinary retention 10. UTI 11. Respiratory infection 12. Aspiration 13. Recurrent HTN 14. Recurrent A FIB 15. Poorly controlled DM Estimated Length of Stay: 14 days Prognosis: Rehab prognosis appears good for goal of discharge home with spouse modified independent to supervision for ADLs and mobility skills. KACIE DAIGLE MD Aug 23, 2017 14:55
[2017-08-23 18:46] VITALS: BP 118/74
[2017-08-23 20:52] VITALS: BP 135/76
[2017-08-23] MEDS: ATORVASTATIN 40 MG (LIPITOR) TABLET PO SCH (20:53)
[2017-08-24] MEDS: PANTOPRAZOLE 20 MG TABLET (PROTONIX) PO SCH (06:13)
[2017-08-24] MEDS: inSUlin (REGULAR) HUMAN 1 UNIT/0.01 ML (CHARGE PER UNIT) SC SCH ×4 (06:13→20:46)
[2017-08-24 06:30] VITALS: BP 112/68
[2017-08-24 06:50] LABS: MEAN PLATELET VOLUME 12.1 FL (7.4-10.4); RED BLOOD COUNT 3.7 10^6/uL (4.35-5.85); RED CELL DISTRIBUTION WIDTH 15.1 % (10.0-14.5); WHITE BLOOD COUNT 10.1 10^3/uL (4.3-11.0)
[2017-08-24 07:09] LABS: ALBUMIN 2.8 GM/DL (3.2-4.5); BILIRUBIN,TOTAL 0.4 MG/DL (0.1-1.0); CALCIUM 9.2 MG/DL (8.5-10.1); CREATININE SERUM 1.52 MG/DL (0.60-1.30); POTASSIUM 4.4 MMOL/L (3.6-5.0); TOTAL PROTEIN 5.5 GM/DL (6.4-8.2)
--- NOTE | 2017-08-24 07:45 | Progress Note (SOAP) ---
Subjective Time Seen by Provider: 07:40 Subjective/Events-last exam Debility. Renal insufficiency. Diabetes. Dementia. Patient feeling good today. Patient not having any complaints. GFR 32 Objective Exam Vital Signs Date Time Temp Pulse Resp B/P (MAP) Pulse Ox O2 Delivery O2 Flow Rate FiO2 08/24/17 06:30 98.5 61 16 112/68 (83) 95 Room Air 08/23/17 20:52 60 135/76 (95) 08/23/17 18:46 99.0 56 16 118/74 (89) 94 Room Air I & O 08/24/17 07:00 Intake Total 400 ml Balance 400 ml Capillary Refill : Less Than 3 Seconds General Appearance: No Apparent Distress, WD/WN HEENT: Normal ENT Inspection, Other (USES HEARING AID) Neck: Full Range of Motion, Normal Inspection Respiratory: Chest Non Tender, No Accessory Muscle Use, No Respiratory Distress Cardiovascular: Regular Rate, Rhythm Gastrointestinal: non tender, soft Results Lab Laboratory Tests 08/24/17 06:24 Laboratory Tests 08/23/17 10:58: Glucometer 206H 08/23/17 16:01: Glucometer 269H 08/23/17 20:06: Glucometer 233H 08/24/17 05:13: Glucometer 119H 08/24/17 06:24: White Blood Count 10.1, Red Blood Count 3.70L, Hemoglobin 11.3L, Hematocrit 35, Mean Corpuscular Volume 94, Mean Corpuscular Hemoglobin 31, Mean Corpuscular Hemoglobin Concent 33, Red Cell Distribution Width 15.1H, Platelet Count 325, Mean Platelet Volume 12.1H, Sodium Level 139, Potassium Level 4.4, Chloride Level 110H, Carbon Dioxide Level 21, Anion Gap 8, Blood Urea Nitrogen 40H, Creatinine 1.52H, Estimat Glomerular Filtration Rate 32, BUN/Creatinine Ratio 26 , Glucose Level 115H, Calcium Level 9.2, Total Bilirubin 0.4, Aspartate Amino Transf (AST/SGOT) 18, Alanine Aminotransferase (ALT/SGPT) 25, Alkaline Phosphatase 95, Total Protein 5.5L, Albumin 2.8L Assessment/Plan Assessment/Plan Assess & Plan/Chief Complaint debility. Renal insufficiency. Diabetes. Syncope. patient voices no complaints Clinical Quality Measures DVT/VTE Risk/Contraindication: Risk Factor Score Per Nursin RFS Level Per Nursing on Admit: 3=High GELLENDER,SHEMAR A DO Aug 24, 2017 07:45
[2017-08-24] MEDS: LOSARTAN 50 MG (COZAAR) TAB PO SCH (08:33)
[2017-08-24] MEDS: amLODIPine 2.5MG (NORVASC) TAB PO SCH (08:33)
[2017-08-24] MEDS: DRONEDARONE TABLET 400 MG TABLET PO SCH ×2 (08:33→20:47)
[2017-08-24] MEDS: APIXABAN 5 MG (ELIQUIS) TABLET PO SCH (08:33)
[2017-08-24] MEDS: CARVEDILOL 12.5 MG (COREG) TABLET PO SCH ×2 (08:34→20:47)
[2017-08-24] MEDS: ASPIRIN 81 MG CHEW (CHILDREN'S ASA) PO SCH (08:34)
[2017-08-24] MEDS: inSUlin DETERMIR 1 UNIT/0.01 ML (LEVEMIR) CHARGE PER UNIT SQ SCH ×2 (08:34→20:47)
--- NOTE | 2017-08-24 11:03 | Physical Therapy Daily Note ---
PT Daily Note-Current Subjective Pt sitting in recliner upon arrival. Pt agrees to PT. Mental Status Patient Orientation: Person, Place, Time, Situation Transfers Functional [place] Measure 0=Not Assessed/NA 4=Minimal Assistance 1=Total Assistance 5=Supervision or Setup 2=Maximal Assistance 6=Modified [place] 3=Moderate Assistance 7=Complete IndependenceIRFPAI Quality Coding Scale 6 Independent with activity with or without an assistive device 5 Patient requires set up or clean up by helper. Patient completes activity by themselves 4 Supervision or touching assist (CGA). [place] provide cues , steadying assist 3 The helper provides less than half the effort to complete the activity 2 The helper provides more than half the effort to complete the activity 1 Dependent. The helper does all the effort to complete an activity 7 Patient refused to complete or attempt activity 9 The patient did not perform the activity before the current illness or injury 88 Not attempted due to Medical conditions or safety concerns Scootin Sit to/from Stand: 6 Sit to Stand (QC): 6 Weight Bearing Right Lower Extremity: Right Full Weight Bearing Left Lower Extremity: Left Full Weight Bearing Gait Training Distance (FIM): 3=150 ft Distance: 150' Walk 10 feet (QC): 6 Walk 50 ft with 2 Turns(QC): 6 Walk 150 ft (QC): 6 Gait Level of Assist: 6 Gait Assistive Device: Cane Small Base Quad Wheelchair Training Does the Pt Use a Wheelchair?: No Stair Training Stair Training: Handrails/: 2 handrails #of Steps: 12 1 Step (curb) (QC): 5 4 Steps (QC): 5 Stairs: Pattern: Reciprocal Exercises Seated Therapy Exercises: Ankle pumps, Hip flexion, Kicking activity, Hip abd/ add NuStep Minutes: 5 Treatments Pt transfers from recliner to standing using QC at Mod I. Pt ambulates in hallway to & from Therapy Gym using QC at Mod I. Pt uses NuStep for 5m at Workload 5 then completed Seated Ex. Pt takes short rest than completes 3 sets of 4 stairs. Pt returns to room to rest at end of tx with all needs met. Assessment Current Status: Good Progress Pt ambulates and transfers well but will work on distance of ambulation. PT Short Term Goals Short Term Goals Time Frame: Aug 29, 2017 Gait (FIM): 5 Gait Distance Comment: 400' Gait Level of Assist: 5 Gait Assistive Device: Cane Single Point PT Alf Goals Alf Goals PT Loading Unit Tool Setter Goals Time Frame: Sep 12, 2017 Transfers (B,C,W/C) (FIM): 6 Sit to Lying (QC): 6 Lying-Sitting on Side/Bed(QC): 6 Sit to Stand (QC): 6 Rollin Roll Left to Right (QC): 6 Chair/Rxj-up-Aovvd Xfer(QC): 6 Car Transfer (QC): 6 Gait (FIM): 6 Distance: 500' Walk 10 feet (QC): 6 Walk 10ft-Uneven Surface(QC): 6 Walk 50ft with 2 Turns (QC): 6 Walk 150 ft (QC): 6 Gait Level of Assist: 6 Gait Assistive Device: Cane Single Point Stairs (FIM): 5 # of Steps: 12 1 Step (curb) (QC): 4 4 Steps (QC): 4 12 Steps (QC): 4 Stairs Level Of Assist: 5 Picking up an Object (QC): 4 (SBA) PT Plan Problem List Problem List: Activity Tolerance, Gait Treatment/Plan Treatment Plan: Continue Plan of Care Treatment Plan: Bed Mobility, Concurrent Therapy, Education, Functional Activity Ravi, Functional Strength, Group Therapy, Gait, Safety, Therapeutic Exercise, Transfers Treatment Duration: Sep 12, 2017 Frequency: At least 5 of 7 days/Wk (IRF) Estimated Hrs Per Day: 1.5 hours per day Patient and/or Family Agrees t: Yes Safety Risks/Education Patient Education: Gait Training, Transfer Techniques, Correct Positioning, Safety Issues Teaching Recipient: Patient Teaching Methods: Discussion Response to Teaching: Verbalize Understanding Time/GCodes Time In: 900 Time Out: 1000 Total Billed Treatment 1,GT x2 (30m), FA (10m) & EX (20m) KYLE ALARCON SPOOL CARRIER Aug 24, 2017 11:03
--- NOTE | 2017-08-24 12:01 | Occupational Ther Daily Note ---
OT Current Status-Daily Note Subjective Pt in recliner at beginning of tx. Agreeable to therapy. Pt c/o right hip being sore but not in pain. Appearance Alert, cooperative. Mental Status/Objective Functional [place] Measure 0=Not Assessed/NA 4=Minimal Assistance 1=Total Assistance 5=Supervision or Setup 2=Maximal Assistance 6=Modified [place] 3=Moderate Assistance 7=Complete [place] ADL-Treatment Pt walked to bathroom with TPC and SBA. Functional [place] Measure 0=Not Assessed/NA 4=Minimal Assistance 1=Total Assistance 5=Supervision or Setup 2=Maximal Assistance 6=Modified [place] 3=Moderate Assistance 7=Complete IndependenceIRFPAI Quality Coding Scale 6 Independent with activity with or without an assistive device 5 Patient requires set up or clean up by helper. Patient completes activity by themselves 4 Supervision or touching assist (CGA). [place] provide cues , steadying assist 3 The helper provides less than half the effort to complete the activity 2 The helper provides more than half the effort to complete the activity 1 Dependent. The helper does all the effort to complete an activity 7 Patient refused to complete or attempt activity 9 The patient did not perform the activity before the current illness or injury 88 Not attempted due to Medical conditions or safety concerns Grooming (FIM): 5 (Pt reported teeth brushed earlier, stood at sink to brush hair with SBA, face and hands washed in shower. ) Bathing (FIM): 5 (Pt bathed 10 parts with supervision, SBA when standing to rinse. Pt able to get water on and retrieve towel, but not turn water off. Shower bench, hand held shower, grab bars) Upper Body (FIM): 5 (Pt able to doff and don pullover shirt and don bra while standing with SBA for safety. ) Lower Body Dressing (FIM): 5 (Pt able to doff and don underwear and pants with SBA for standing to manage clothing. Pt donned shoes with setup. ) Shower Transfer(FIM): 5 (Pt transferred on and off shower bench with SBA. Shower bench, grab bars.) Pt walked to recliner with TPC and SBA and inserted hearing aids. Pt walked to gym with TPC and SBA. Pt used arm bike for 8 minutes at 15 rodriguez (increase of 5 rodriguez) to increase activity tolerance. Pt did table top activity of peg [place] game 3 times with 1# weights on both wrists to increase strength to improve transfers. Pt also worked on craft activity involving cutting while wearing 1# weights to increase strength to improve ADLs. Pt walked to room with TPC and SBA. Pt in recliner with all needs met at end of tx. Education OT Patient Education: Progress toward Goal/Update tx plan, Purpose of tx/ functional activities Teaching Recipient: Patient Teaching Methods: Discussion Response to Teaching: Verbalize Understanding OT Short Term Goals Short Term Goals 1=Demonstrate adherence to instructed precautions during ADL tasks. 2=Patient will verbalize/demonstrate understanding of assistive devices/ modifications for ADL. 3=Patient will improve strength/tolerance for activity to enable patient to perform ADL's. OT Intermediate Goals Acid Cleaner Goals Time Frame: Sep 01, 2017 Eating (FIM): 7 Eating (QC): 6 Groomin Oral Hygiene (QC): 6 Bathing(FIM): 6 Shower/Bathe Self (QC): 6 Upper Body Dressing(FIM): 6 Upper Body Dressing (QC): 6 Lower Body Dressing(FIM): 6 Lower Body Dressing (QC): 6 On/Off Footwear (QC): 6 Toileting(FIM): 6 Toileting Hygiene (QC): 6 Toilet/Commode Transfer(FIM): 6 Toilet/Commode Transfer (QC): 6 Shower Transfer(FIM): 6 Pt will demonstrate safe techniques for IADLs, using 4WW for steadiness and energy conservation Additional Goals: 2-Verbalize Understanding, 3-ImproveStrength/Ravi 1=Demonstrate adherence to instructed precautions during ADL tasks. 2=Patient will verbalize/demonstrate understanding of assistive devices/ modifications for ADL. 3=Patient will improve strength/tolerance for activity to enable patient to perform ADL's. OT Education/Plan Problem List/Assessment Pt would benefit from skilled OT to increase her independence and safety in basic self care and IADLs and to prevent falls Discharge Recommendations Plan/Recommendations: Continue POC Treatment Plan/Plan of Care Patient would benefit from OT for education, treatment and training to promote independence in ADL's, mobility, safety and/or upper extremity function for ADL' s. Plan of Care: ADL Retraining, Functional Mobility, Group Exercise/Act as Ind ( education, exercise, funct activities, activ tolerance, memory), UE Funct Exercise/Act, UE Neuromus Re-Ed/Coord Treatment Duration: Sep 01, 2017 Frequency: At least 5 of 7 days/Wk (IRF) Estimated Hrs Per Day: 1.5 hours per day Agreement: Yes Rehab Potential: Fair Time/GCodes Start Time: 10:00 Stop Time: 11:30 Total Time Billed (hr/min): 90 Billed Treatment Time visit, ADL 45 minutes, exercise 45 minutes CLIVE WHITAKER OT Aug 24, 2017 12:01
--- NOTE | 2017-08-24 14:03 | Physical Therapy Daily Note ---
PT Daily Note-Current Subjective Pt sitting in recliner upon arrival. Pt agrees to PT. Mental Status Patient Orientation: Person, Place, Time, Situation Transfers Functional [place] Measure 0=Not Assessed/NA 4=Minimal Assistance 1=Total Assistance 5=Supervision or Setup 2=Maximal Assistance 6=Modified [place] 3=Moderate Assistance 7=Complete IndependenceIRFPAI Quality Coding Scale 6 Independent with activity with or without an assistive device 5 Patient requires set up or clean up by helper. Patient completes activity by themselves 4 Supervision or touching assist (CGA). [place] provide cues , steadying assist 3 The helper provides less than half the effort to complete the activity 2 The helper provides more than half the effort to complete the activity 1 Dependent. The helper does all the effort to complete an activity 7 Patient refused to complete or attempt activity 9 The patient did not perform the activity before the current illness or injury 88 Not attempted due to Medical conditions or safety concerns Scootin Sit to/from Stand: 6 Sit to Stand (QC): 6 Weight Bearing Right Lower Extremity: Right Full Weight Bearing Left Lower Extremity: Left Full Weight Bearing Gait Training Does the Patient Walk?: Yes Distance (FIM): 3=150 ft Distance: 150' Walk 10 feet (QC): 5 Walk 50 ft with 2 Turns(QC): 5 Walk 150 ft (QC): 5 Gait Level of Assist: 5 Gait Persons Needed: 1 Gait Assistive Device: Cane Small Base Quad Pt is tired and fatigues easier than this morning. Wheelchair Training Does the Pt Use a Wheelchair?: No Exercises Supine Ex: Ankle pumps, Quad Set, Glut sets, Heel Slides, Straight leg raise, Hip abd/add Treatments Pt transfers from recliner to standing using QC at SBA due to fatigue. Pt ambulates to Therapy gym using QC at SBA due to fatigue. Pt completes Supine Ex on mat. Pt transfers back to standing at SBA and ambulates back to room to rest in recliner. Pt rests at end of tx in recliner with all needs met. Assessment Current Status: Good Progress Pt fatigues but recovers quickly. PT Short Term Goals Short Term Goals Time Frame: Aug 29, 2017 Gait (FIM): 5 Gait Distance Comment: 400' Gait Level of Assist: 5 Gait Assistive Device: Cane Single Point PT Alf Goals Tso Goals PT Tso Goals Time Frame: Sep 12, 2017 Transfers (B,C,W/C) (FIM): 6 Sit to Lying (QC): 6 Lying-Sitting on Side/Bed(QC): 6 Sit to Stand (QC): 6 Rollin Roll Left to Right (QC): 6 Chair/Sba-yb-Wsfue Xfer(QC): 6 Car Transfer (QC): 6 Gait (FIM): 6 Distance: 500' Walk 10 feet (QC): 6 Walk 10ft-Uneven Surface(QC): 6 Walk 50ft with 2 Turns (QC): 6 Walk 150 ft (QC): 6 Gait Level of Assist: 6 Gait Assistive Device: Cane Single Point Stairs (FIM): 5 # of Steps: 12 1 Step (curb) (QC): 4 4 Steps (QC): 4 12 Steps (QC): 4 Stairs Level Of Assist: 5 Picking up an Object (QC): 4 (SBA) PT Plan Problem List Problem List: Activity Tolerance Treatment/Plan Treatment Plan: Continue Plan of Care Treatment Plan: Bed Mobility, Concurrent Therapy, Education, Functional Activity Ravi, Functional Strength, Group Therapy, Gait, Safety, Therapeutic Exercise, Transfers Treatment Duration: Sep 12, 2017 Frequency: At least 5 of 7 days/Wk (IRF) Estimated Hrs Per Day: 1.5 hours per day Patient and/or Family Agrees t: Yes Safety Risks/Education Patient Education: Gait Training, Correct Positioning, Safety Issues Teaching Recipient: Patient Teaching Methods: Discussion Response to Teaching: Verbalize Understanding Time/GCodes Time In: 1330 Time Out: 1400 Total Billed Treatment Time: 30 Total Billed Treatment 1, GT (10m) & EX (20m) KYLE ALARCON PTA Aug 24, 2017 14:03
[2017-08-24 18:23] VITALS: BP 124/57
[2017-08-24] MEDS: ATORVASTATIN 40 MG (LIPITOR) TABLET PO SCH (20:47)
[2017-08-24] MEDS: APIXABAN 2.5 MG (ELIQUIS) TABLET PO SCH (20:47)
[2017-08-25] MEDS: inSUlin (REGULAR) HUMAN 1 UNIT/0.01 ML (CHARGE PER UNIT) SC SCH ×4 (05:40→21:16)
[2017-08-25 06:00] VITALS: BP 120/55
[2017-08-25] MEDS: PANTOPRAZOLE 20 MG TABLET (PROTONIX) PO SCH (06:03)
[2017-08-25 06:40] LABS: CREATININE SERUM 1.55 MG/DL (0.60-1.30); POTASSIUM 4.1 MMOL/L (3.6-5.0)
[2017-08-25] MEDS: DRONEDARONE TABLET 400 MG TABLET PO SCH ×2 (08:06→20:15)
[2017-08-25] MEDS: amLODIPine 2.5MG (NORVASC) TAB PO SCH (08:06)
[2017-08-25] MEDS: CARVEDILOL 12.5 MG (COREG) TABLET PO SCH ×2 (08:06→20:15)
[2017-08-25] MEDS: APIXABAN 2.5 MG (ELIQUIS) TABLET PO SCH ×2 (08:06→20:15)
[2017-08-25] MEDS: LOSARTAN 50 MG (COZAAR) TAB PO SCH (08:06)
[2017-08-25 08:07] VITALS: BP 122/69
[2017-08-25] MEDS: ASPIRIN 81 MG CHEW (CHILDREN'S ASA) PO SCH (08:07)
[2017-08-25] MEDS: inSUlin DETERMIR 1 UNIT/0.01 ML (LEVEMIR) CHARGE PER UNIT SQ SCH ×3 (08:13→21:17)
--- NOTE | 2017-08-25 08:16 | Progress Note (SOAP) ---
Subjective Time Seen by Provider: 08:12 Subjective/Events-last exam Debility. Syncope. Dementia. Diabetes. Patient had episode of hypoglycemia this morning. pATIENT pleasant Objective Exam Vital Signs Date Time Temp Pulse Resp B/P (MAP) Pulse Ox O2 Delivery O2 Flow Rate FiO2 08/25/17 08:07 66 122/69 (86) 08/25/17 06:00 98.4 60 16 120/55 (76) 98 Room Air 08/24/17 21:00 Room Air 08/24/17 18:23 98.4 55 16 124/57 (79) 95 Room Air 08/24/17 09:26 Room Air I & O 08/25/17 07:00 Intake Total 960 ml Balance 960 ml Capillary Refill : Less Than 3 Seconds General Appearance: No Apparent Distress HEENT: Normal ENT Inspection, Other (hearing aid) Neck: Full Range of Motion Respiratory: No Accessory Muscle Use, No Respiratory Distress Cardiovascular: Regular Rate, Rhythm, No Murmur Gastrointestinal: non tender, soft Results Lab Laboratory Tests 08/24/17 11:49: Glucometer 341H 08/24/17 16:07: Glucometer 232H 08/24/17 20:38: Glucometer 245H 08/25/17 05:32: Glucometer 56*L 08/25/17 06:06: Glucometer 99 08/25/17 06:11: Sodium Level 141, Potassium Level 4.1, Chloride Level 111H, Carbon Dioxide Level 21, Anion Gap 9, Blood Urea Nitrogen 34H, Creatinine 1.55H, Estimat Glomerular Filtration Rate 32, BUN/Creatinine Ratio 22, Glucose Level 122H, Calcium Level 9.0 Assessment/Plan Assessment/Plan Assess & Plan/Chief Complaint debility. Renal insufficiency. Diabetes. Syncope. patient voices no complaints. . 08/25/17. Debility. Renal insufficiency. Diabetes. Syncope. Patient worked yesterday Clinical Quality Measures DVT/VTE Risk/Contraindication: Risk Factor Score Per Nursin RFS Level Per Nursing on Admit: 3=High SHEMAR CORTEZ DO Aug 25, 2017 08:16
--- NOTE | 2017-08-25 09:01 | Physical Therapy Daily Note ---
PT Daily Note-Current Subjective Pt. states that earlier this morning her blood sugar was 57 but she ate some crackers and peanut butter and is feeling better and is willing to work. Pain Numeric Pain Scale: 0-No Pain Mental Status Patient Orientation: Normal For Age hard of hearing Transfers Functional [place] Measure 0=Not Assessed/NA 4=Minimal Assistance 1=Total Assistance 5=Supervision or Setup 2=Maximal Assistance 6=Modified [place] 3=Moderate Assistance 7=Complete IndependenceIRFPAI Quality Coding Scale 6 Independent with activity with or without an assistive device 5 Patient requires set up or clean up by helper. Patient completes activity by themselves 4 Supervision or touching assist (CGA). [place] provide cues , steadying assist 3 The helper provides less than half the effort to complete the activity 2 The helper provides more than half the effort to complete the activity 1 Dependent. The helper does all the effort to complete an activity 7 Patient refused to complete or attempt activity 9 The patient did not perform the activity before the current illness or injury 88 Not attempted due to Medical conditions or safety concerns Transfers (B, C, W/C) (FIM): 6 Scootin Rollin Supine to/from Sit: 6 Sit to/from Stand: 6 Bed to/from Chair: 6 Weight Bearing Right Lower Extremity: Right Full Weight Bearing Left Lower Extremity: Left Full Weight Bearing Gait Training Does the Patient Walk?: Yes Gait (FIM): 5 Distance (FIM): 3=150 ft (x3) Gait Level of Assist: 5 Gait Persons Needed: 1 Gait Assistive Device: Cane Single Point SBA Stair Training Stair Training: Handrails/: 2 handrails Stairs (FIM): 5 #of Steps: 12 Stairs: Pattern: Reciprocal Level of Assist: 5 Balance Picking up an Object (QC): 6 Exercises Supine Ex: Ankle pumps, Rolling, Heel Slides, Scooting, Straight leg raise, Hip abd/add Supine Reps: 15 Standing: Hip Abduction, Hamstring curls, Heel/toe raises, Marching, Mini squats, Sit to Stand Standing Reps: 15 NuStep Minutes: 10 NuStep Workload: 4 Neuromuscular fig *s and picking up objects from floor along the way, no LOB, not using cane Assessment Current Status: Excellent Progress PT Short Term Goals Short Term Goals Time Frame: Aug 29, 2017 Gait (FIM): 5 Gait Distance Comment: 400' Gait Level of Assist: 5 Gait Assistive Device: Cane Single Point PT Fpc Goals Fpc Goals PT Fpc Goals Time Frame: Sep 12, 2017 Transfers (B,C,W/C) (FIM): 6 Sit to Lying (QC): 6 Lying-Sitting on Side/Bed(QC): 6 Sit to Stand (QC): 6 Rollin Roll Left to Right (QC): 6 Chair/Nch-bc-Lbctf Xfer(QC): 6 Car Transfer (QC): 6 Gait (FIM): 6 Distance: 500' Walk 10 feet (QC): 6 Walk 10ft-Uneven Surface(QC): 6 Walk 50ft with 2 Turns (QC): 6 Walk 150 ft (QC): 6 Gait Level of Assist: 6 Gait Assistive Device: Cane Single Point Stairs (FIM): 5 # of Steps: 12 1 Step (curb) (QC): 4 4 Steps (QC): 4 12 Steps (QC): 4 Stairs Level Of Assist: 5 Picking up an Object (QC): 4 (SBA) PT Plan Treatment/Plan Treatment Plan: Continue Plan of Care Treatment Plan: Bed Mobility, Concurrent Therapy, Education, Functional Activity Ravi, Functional Strength, Group Therapy, Gait, Safety, Therapeutic Exercise, Transfers Treatment Duration: Sep 12, 2017 Frequency: At least 5 of 7 days/Wk (IRF) Estimated Hrs Per Day: 1.5 hours per day Patient and/or Family Agrees t: Yes Safety Risks/Education Patient Education: Gait Training, Transfer Techniques, Steps, Issued Written HEP, Correct Positioning, Safety Issues Teaching Recipient: Patient Teaching Methods: Demonstration, Discussion Response to Teaching: Verbalize Understanding, Return Demonstration, Reinforcement Needed Time/GCodes Time In: 800 Time Out: 900 Total Billed Treatment Time: 60 Total Billed Treatment 1,FA15m,GT15m,EX15m G Codes Necessary: BARBRA Negrete STAFF DEVELOPMENT COORDINATOR Aug 25, 2017 09:01
--- NOTE | 2017-08-25 11:15 | Occupational Ther Daily Note ---
OT Current Status-Daily Note Subjective Pt in recliner at beginning of tx. Agreeable to therapy. No mention of pain. Appearance Alert, cooperative. Mental Status/Objective Functional [place] Measure 0=Not Assessed/NA 4=Minimal Assistance 1=Total Assistance 5=Supervision or Setup 2=Maximal Assistance 6=Modified [place] 3=Moderate Assistance 7=Complete [place] ADL-Treatment Pt walked to bathroom with TPC and SBA, carrying clean clothes. Functional [place] Measure 0=Not Assessed/NA 4=Minimal Assistance 1=Total Assistance 5=Supervision or Setup 2=Maximal Assistance 6=Modified [place] 3=Moderate Assistance 7=Complete IndependenceIRFPAI Quality Coding Scale 6 Independent with activity with or without an assistive device 5 Patient requires set up or clean up by helper. Patient completes activity by themselves 4 Supervision or touching assist (CGA). [place] provide cues , steadying assist 3 The helper provides less than half the effort to complete the activity 2 The helper provides more than half the effort to complete the activity 1 Dependent. The helper does all the effort to complete an activity 7 Patient refused to complete or attempt activity 9 The patient did not perform the activity before the current illness or injury 88 Not attempted due to Medical conditions or safety concerns Grooming (FIM): 5 (Pt stated she had already brushed teeth but stood at sink to brush hair, hands and face washed in shower. ) Bathing (FIM): 5 (Pt able to wash 10 parts with SBA for standing to rinse. Pt able to turn water off and on and retrieve towel. Shower bench, hand held shower , TPC) Upper Body (FIM): 5 (Pt able to [place] and doff pajama top and don pullover shirt and bra with setup. ) Lower Body Dressing (FIM): 5 (Pt able to doff and don underwear and pants with SBA for standing to manage clothing with no observed LOB. Pt donned shoes with setup. ) Shower Transfer(FIM): 5 (Pt able to transfer on and off shower bench with SBA for safety. Shower bench, grab bars, TPC) While pt was dressing, she experienced an episode of SOB but pulse ox was 95%. Pt stated she had noticed getting tired easier lately. Pt walked to recliner with TPC and SBA to insert hearing aids. Other Treatment Pt walked to gym with TPC and SBA. Pt used arm bike for 12 minutes at 15 rodriguez ( increase of 4 minutes) to increase strength to improve transfers. Pt then participated in craft activity involving cutting and tabletop activity of placing 1/4 inch stem pegs in pegboard with 1# weights on both wrists to increase strength to improve transfers. While pt was cutting, energy conservation handout was presented and pt educated on ways to conserve energy. Pt walked to room with TPC and SBA. Pt was in recliner with all needs met at end of tx. Education OT Patient Education: Energy conservation, Purpose of tx/functional activities , Safety issues Teaching Recipient: Patient Teaching Methods: Discussion Response to Teaching: Verbalize Understanding OT Short Term Goals Short Term Goals 1=Demonstrate adherence to instructed precautions during ADL tasks. 2=Patient will verbalize/demonstrate understanding of assistive devices/ modifications for ADL. 3=Patient will improve strength/tolerance for activity to enable patient to perform ADL's. OT Custodial Goals Skirt Trimmer Goals Time Frame: Sep 01, 2017 Eating (FIM): 7 Eating (QC): 6 Groomin Oral Hygiene (QC): 6 Bathing(FIM): 6 Shower/Bathe Self (QC): 6 Upper Body Dressing(FIM): 6 Upper Body Dressing (QC): 6 Lower Body Dressing(FIM): 6 Lower Body Dressing (QC): 6 On/Off Footwear (QC): 6 Toileting(FIM): 6 Toileting Hygiene (QC): 6 Toilet/Commode Transfer(FIM): 6 Toilet/Commode Transfer (QC): 6 Shower Transfer(FIM): 6 Pt will demonstrate safe techniques for IADLs, using 4WW for steadiness and energy conservation Additional Goals: 2-Verbalize Understanding, 3-ImproveStrength/Ravi 1=Demonstrate adherence to instructed precautions during ADL tasks. 2=Patient will verbalize/demonstrate understanding of assistive devices/ modifications for ADL. 3=Patient will improve strength/tolerance for activity to enable patient to perform ADL's. OT Education/Plan Problem List/Assessment Pt would benefit from skilled OT to increase her independence and safety in basic self care and IADLs and to prevent falls Discharge Recommendations Plan/Recommendations: Continue POC Treatment Plan/Plan of Care Patient would benefit from OT for education, treatment and training to promote independence in ADL's, mobility, safety and/or upper extremity function for ADL' s. Plan of Care: ADL Retraining, Functional Mobility, Group Exercise/Act as Ind ( education, exercise, funct activities, activ tolerance, memory), UE Funct Exercise/Act, UE Neuromus Re-Ed/Coord Treatment Duration: Sep 01, 2017 Frequency: At least 5 of 7 days/Wk (IRF) Estimated Hrs Per Day: 1.5 hours per day Agreement: Yes Rehab Potential: Fair Time/GCodes Start Time: 09:35 Stop Time: 11:05 Total Time Billed (hr/min): 90 Billed Treatment Time visit, ADL 30 minutes, exercise 60 CLIVE WHITAKER OT Aug 25, 2017 11:15
--- NOTE | 2017-08-25 14:00 | Physical Therapy Daily Note ---
PT Daily Note-Current Subjective Agrees to Rx. Feeling well. Shares her long history of diabetes Pain Numeric Pain Scale: 0-No Pain Mental Status Patient Orientation: Normal For Age very hard of hearing Transfers Functional [place] Measure 0=Not Assessed/NA 4=Minimal Assistance 1=Total Assistance 5=Supervision or Setup 2=Maximal Assistance 6=Modified [place] 3=Moderate Assistance 7=Complete IndependenceIRFPAI Quality Coding Scale 6 Independent with activity with or without an assistive device 5 Patient requires set up or clean up by helper. Patient completes activity by themselves 4 Supervision or touching assist (CGA). [place] provide cues , steadying assist 3 The helper provides less than half the effort to complete the activity 2 The helper provides more than half the effort to complete the activity 1 Dependent. The helper does all the effort to complete an activity 7 Patient refused to complete or attempt activity 9 The patient did not perform the activity before the current illness or injury 88 Not attempted due to Medical conditions or safety concerns bed and chair TRFs SBA to Mod I Weight Bearing Right Lower Extremity: Right Full Weight Bearing Left Lower Extremity: Left Full Weight Bearing Gait Training Gait Assistive Device: Cane Single Point 155 ft x 2 with fig 8s and tight turns as well as retro gait and side steps no LOB Exercises Supine Ex: Bridging, Ankle pumps, Quad Set, Rolling, Glut sets, Heel Slides, Short Arc Quads, Scooting, Straight leg raise, Hip abd/add Supine Reps: 15 Treatments in room in recliner after Rx with present Assessment Current Status: Good Progress PT Short Term Goals Short Term Goals Time Frame: Aug 29, 2017 Gait (FIM): 5 Gait Distance Comment: 400' Gait Level of Assist: 5 Gait Assistive Device: Cane Single Point PT Residential Goals Die Sinker Apprentice Goals PT Residential Goals Time Frame: Sep 12, 2017 Transfers (B,C,W/C) (FIM): 6 Sit to Lying (QC): 6 Lying-Sitting on Side/Bed(QC): 6 Sit to Stand (QC): 6 Rollin Roll Left to Right (QC): 6 Chair/Ycq-un-Cpquk Xfer(QC): 6 Car Transfer (QC): 6 Gait (FIM): 6 Distance: 500' Walk 10 feet (QC): 6 Walk 10ft-Uneven Surface(QC): 6 Walk 50ft with 2 Turns (QC): 6 Walk 150 ft (QC): 6 Gait Level of Assist: 6 Gait Assistive Device: Cane Single Point Stairs (FIM): 5 # of Steps: 12 1 Step (curb) (QC): 4 4 Steps (QC): 4 12 Steps (QC): 4 Stairs Level Of Assist: 5 Picking up an Object (QC): 4 (SBA) PT Plan Treatment/Plan Treatment Plan: Continue Plan of Care Treatment Plan: Bed Mobility, Concurrent Therapy, Education, Functional Activity Ravi, Functional Strength, Group Therapy, Gait, Safety, Therapeutic Exercise, Transfers Treatment Duration: Sep 12, 2017 Frequency: At least 5 of 7 days/Wk (IRF) Estimated Hrs Per Day: 1.5 hours per day Patient and/or Family Agrees t: Yes Safety Risks/Education Patient Education: Gait Training, Transfer Techniques, Correct Positioning, Disease Process, Safety Issues Teaching Recipient: Patient Teaching Methods: Demonstration, Discussion Response to Teaching: Verbalize Understanding, Return Demonstration, Reinforcement Needed Time/GCodes Time In: 1330 Time Out: 1400 Total Billed Treatment Time: 30 Total Billed Treatment 1, Ex15m,Gt15m G Codes Necessary: BARBRA Negrete PTA Aug 25, 2017 14:00
[2017-08-25 18:00] VITALS: BP 160/67
[2017-08-25] MEDS: ATORVASTATIN 40 MG (LIPITOR) TABLET PO SCH (20:15)
[2017-08-26 05:17] VITALS: BP 133/73
[2017-08-26] MEDS: inSUlin (REGULAR) HUMAN 1 UNIT/0.01 ML (CHARGE PER UNIT) SC SCH ×5 (05:22→20:25)
[2017-08-26] MEDS: PANTOPRAZOLE 20 MG TABLET (PROTONIX) PO SCH (05:22)
[2017-08-26] MEDS: ASPIRIN 81 MG CHEW (CHILDREN'S ASA) PO SCH (08:57)
[2017-08-26] MEDS: DRONEDARONE TABLET 400 MG TABLET PO SCH ×2 (08:57→20:25)
[2017-08-26] MEDS: inSUlin DETERMIR 1 UNIT/0.01 ML (LEVEMIR) CHARGE PER UNIT SQ SCH ×2 (08:57→20:25)
[2017-08-26] MEDS: APIXABAN 2.5 MG (ELIQUIS) TABLET PO SCH ×2 (08:57→20:25)
[2017-08-26] MEDS: CARVEDILOL 12.5 MG (COREG) TABLET PO SCH ×2 (08:57→20:25)
[2017-08-26] MEDS: amLODIPine 2.5MG (NORVASC) TAB PO SCH (08:57)
[2017-08-26] MEDS: LOSARTAN 50 MG (COZAAR) TAB PO SCH (09:10)
--- NOTE | 2017-08-26 09:12 | Occupational Ther Daily Note ---
OT Current Status-Daily Note Subjective Pt sitting in chair, agrees to treatment. Pt has no c/o pain. Mental Status/Objective Functional [place] Measure 0=Not Assessed/NA 4=Minimal Assistance 1=Total Assistance 5=Supervision or Setup 2=Maximal Assistance 6=Modified [place] 3=Moderate Assistance 7=Complete [place] ADL-Treatment Gait to restroom with cane without LOB. Pt doffed clothing without assistance. Transfer to walk in shower with supervision using grab bar. Pt able to wash/dry all areas with supervision. Don bra and pullover shirt with set up. Pt donned underwear, pants, socks, and shoes with set up. Grooming tasks completed standing at sink. Pt brushed teeth and combed hair with modified independence. Functional [place] Measure 0=Not Assessed/NA 4=Minimal Assistance 1=Total Assistance 5=Supervision or Setup 2=Maximal Assistance 6=Modified [place] 3=Moderate Assistance 7=Complete IndependenceIRFPAI Quality Coding Scale 6 Independent with activity with or without an assistive device 5 Patient requires set up or clean up by helper. Patient completes activity by themselves 4 Supervision or touching assist (CGA). [place] provide cues , steadying assist 3 The helper provides less than half the effort to complete the activity 2 The helper provides more than half the effort to complete the activity 1 Dependent. The helper does all the effort to complete an activity 7 Patient refused to complete or attempt activity 9 The patient did not perform the activity before the current illness or injury 88 Not attempted due to Medical conditions or safety concerns Grooming (FIM): 6 Oral Hygiene (QC): 6 Bathing (FIM): 5 Upper Body (FIM): 5 Upper Body Dressing (QC): 5 Lower Body Dressing (FIM): 5 Lower Body Dressing (QC): 5 On/Off Footwear (QC): 5 Shower Transfer(FIM): 5 Other Treatment Gait to therapy gym with cane, no LOB noted. Arm bike x12 minutes to increase overall strength and activity tolerance needed for functional task completion. Pt completed task with 15 rodriguez resistance and steady pace. No rest breaks needed. Pt completed bilateral UE exercises to increase strength needed for ADLs and transfers. Pt performed shoulder flexion, forward press, and biceps curls x15 reps with 1# dowel kylie. Rest breaks taken between exercises. Pt completed tabletop peg activity with bilateral UE with 1# weights in place to increase strength for ADLs. Pt able to place and remove beads from pegboard without assistance. Graded clothespin activity with bilateral hands to increase pinch strength for ADLs. Pt completes task without difficulty. Arm arc activity with bilateral UE with 1# weights in place to increase overall strength needed for functional tasks. Pt returned to room, sitting in chair with needs met after session. OT Short Term Goals Short Term Goals 1=Demonstrate adherence to instructed precautions during ADL tasks. 2=Patient will verbalize/demonstrate understanding of assistive devices/ modifications for ADL. 3=Patient will improve strength/tolerance for activity to enable patient to perform ADL's. OT Intermediate Goals Intermediate Goals Time Frame: Sep 01, 2017 Eating (FIM): 7 Eating (QC): 6 Groomin Oral Hygiene (QC): 6 Bathing(FIM): 6 Shower/Bathe Self (QC): 6 Upper Body Dressing(FIM): 6 Upper Body Dressing (QC): 6 Lower Body Dressing(FIM): 6 Lower Body Dressing (QC): 6 On/Off Footwear (QC): 6 Toileting(FIM): 6 Toileting Hygiene (QC): 6 Toilet/Commode Transfer(FIM): 6 Toilet/Commode Transfer (QC): 6 Shower Transfer(FIM): 6 Pt will demonstrate safe techniques for IADLs, using 4WW for steadiness and energy conservation Additional Goals: 2-Verbalize Understanding, 3-ImproveStrength/Ravi 1=Demonstrate adherence to instructed precautions during ADL tasks. 2=Patient will verbalize/demonstrate understanding of assistive devices/ modifications for ADL. 3=Patient will improve strength/tolerance for activity to enable patient to perform ADL's. OT Education/Plan Problem List/Assessment Pt would benefit from skilled OT to increase her independence and safety in basic self care and IADLs and to prevent falls Discharge Recommendations Plan/Recommendations: Continue POC Treatment Plan/Plan of Care Patient would benefit from OT for education, treatment and training to promote independence in ADL's, mobility, safety and/or upper extremity function for ADL' s. Plan of Care: ADL Retraining, Functional Mobility, Group Exercise/Act as Ind ( education, exercise, funct activities, activ tolerance, memory), UE Funct Exercise/Act, UE Neuromus Re-Ed/Coord Treatment Duration: Sep 01, 2017 Frequency: At least 5 of 7 days/Wk (IRF) Estimated Hrs Per Day: 1.5 hours per day Agreement: Yes Rehab Potential: Fair Time/GCodes Start Time: 07:30 Stop Time: 09:00 Total Time Billed (hr/min): 90 Billed Treatment Time 1 visit, ADLx2(30minutes), EXx4(60minutes) ELISA WIN OT Aug 26, 2017 09:12
--- NOTE | 2017-08-26 12:04 | Physical Therapy Daily Note ---
PT Daily Note-Current Subjective Pt. agreeable to Rx, pleasant and motivated. Pain Numeric Pain Scale: 0-No Pain Mental Status Patient Orientation: Normal For Age hard of hearing Transfers Functional [place] Measure 0=Not Assessed/NA 4=Minimal Assistance 1=Total Assistance 5=Supervision or Setup 2=Maximal Assistance 6=Modified [place] 3=Moderate Assistance 7=Complete IndependenceIRFPAI Quality Coding Scale 6 Independent with activity with or without an assistive device 5 Patient requires set up or clean up by helper. Patient completes activity by themselves 4 Supervision or touching assist (CGA). [place] provide cues , steadying assist 3 The helper provides less than half the effort to complete the activity 2 The helper provides more than half the effort to complete the activity 1 Dependent. The helper does all the effort to complete an activity 7 Patient refused to complete or attempt activity 9 The patient did not perform the activity before the current illness or injury 88 Not attempted due to Medical conditions or safety concerns Transfers (B, C, W/C) (FIM): 6 Scootin Rollin Supine to/from Sit: 6 Sit to/from Stand: 6 Weight Bearing Right Lower Extremity: Right Full Weight Bearing Left Lower Extremity: Left Full Weight Bearing Gait Training Does the Patient Walk?: Yes Gait (FIM): 5 Distance (FIM): 3=150 ft (300x3) Gait Level of Assist: 5 Gait Persons Needed: 1 Gait Assistive Device: Cane Single Point pt. weaving slightly one time recovering indep. Pt. taken on psuedo outing about lobby, gift shop and chapel. Pt. opened doors, crossed differing levels and junctures as well as bending and turning while in small spaces of gift shop and while observing salt water fish tank. Stair Training Stair Training: Handrails/: 2 handrails Stairs (FIM): 5 #of Steps: 12 Stairs: Pattern: Reciprocal Level of Assist: 5 Exercises Supine Ex: Bridging, Ankle pumps, Quad Set, Rolling, Glut sets, Lower trunk rotation, Heel Slides, Short Arc Quads, Scooting, Straight leg raise, Hip abd/ add Supine Reps: 20 Seated Therapy Exercises: Ankle pumps, Sit to stand, Long arc quads, Hip flexion Seated Reps: 15 NuStep Minutes: 15 NuStep Workload: 3 Assessment Current Status: Good Progress PT Short Term Goals Short Term Goals Time Frame: Aug 29, 2017 Gait (FIM): 5 Gait Distance Comment: 400' Gait Level of Assist: 5 Gait Assistive Device: Cane Single Point PT Bar Machine Operator Production Goals Senior Care Goals PT Senior Care Goals Time Frame: Sep 12, 2017 Transfers (B,C,W/C) (FIM): 6 Sit to Lying (QC): 6 Lying-Sitting on Side/Bed(QC): 6 Sit to Stand (QC): 6 Rollin Roll Left to Right (QC): 6 Chair/Mtp-wu-Qmfwt Xfer(QC): 6 Car Transfer (QC): 6 Gait (FIM): 6 Distance: 500' Walk 10 feet (QC): 6 Walk 10ft-Uneven Surface(QC): 6 Walk 50ft with 2 Turns (QC): 6 Walk 150 ft (QC): 6 Gait Level of Assist: 6 Gait Assistive Device: Cane Single Point Stairs (FIM): 5 # of Steps: 12 1 Step (curb) (QC): 4 4 Steps (QC): 4 12 Steps (QC): 4 Stairs Level Of Assist: 5 Picking up an Object (QC): 4 (SBA) PT Plan Treatment/Plan Treatment Plan: Continue Plan of Care Treatment Plan: Bed Mobility, Concurrent Therapy, Education, Functional Activity Ravi, Functional Strength, Group Therapy, Gait, Safety, Therapeutic Exercise, Transfers Treatment Duration: Sep 12, 2017 Frequency: At least 5 of 7 days/Wk (IRF) Estimated Hrs Per Day: 1.5 hours per day Patient and/or Family Agrees t: Yes Safety Risks/Education Patient Education: Gait Training, Transfer Techniques, Steps, Issued Written HEP Teaching Recipient: Patient Teaching Methods: Demonstration, Discussion Response to Teaching: Verbalize Understanding, Return Demonstration, Reinforcement Needed Time/GCodes Time In: 940 Time Out: 1110 Total Billed Treatment Time: 90 Total Billed Treatment 1,FA40m,EX30m,GT20m G Codes Necessary: BARBRA Negrete PRODUCTION TECHNOLOGIST Aug 26, 2017 12:04
[2017-08-26 18:00] VITALS: BP 154/77
[2017-08-26] MEDS: ATORVASTATIN 40 MG (LIPITOR) TABLET PO SCH (20:25)
[2017-08-27 05:16] VITALS: BP 102/57
[2017-08-27] MEDS: PANTOPRAZOLE 20 MG TABLET (PROTONIX) PO SCH (05:20)
[2017-08-27] MEDS: inSUlin (REGULAR) HUMAN 1 UNIT/0.01 ML (CHARGE PER UNIT) SC SCH ×4 (05:21→20:40)
--- NOTE | 2017-08-27 08:58 | Individualized Plan of Care ---
Individualized Plan of Care Rehab Nursing IPOC Order Admission Date Aug 22, 2017 at 14:37 Current Orders Orders Request For Cognitive Services (08/22/17 15:20) Admission (Physician Order) (08/22/17 15:20) Occupational Therapy Rehab Ord (08/22/17 15:20) Physical Therapy Rehab Orders (08/22/17 15:20) Rehab Nursing Orders-Ipoc (08/22/17 15:20) Consult Physician (08/22/17 15:23) Accucheck Achs ACHS (08/22/17 15:23) Daily Weight 06 (08/22/17 15:23) Insulin Aspart (Novolog) (Novolog (Charg (08/22/17 16:00) Insulin Determir (Per Unit) (Levemir (Pe (08/22/17 21:00) Aspirin Chewable Tablet (Baby Aspirin Ch (08/23/17 09:00) Carvedilol Tablet (Coreg Tablet) (08/22/17 21:00) Amlodipine Tablet (Norvasc Tablet) (08/23/17 09:00) Atorvastatin Tablet (Lipitor) (08/22/17 21:00) Apixaban Tablet (Eliquis Tablet) (08/22/17 21:00) Dronedarone Tablet (Multaq Tablet) (08/22/17 21:00) Losartan Tablet (Cozaar Tablet) (08/23/17 09:00) Insulin (Regular) Human (Humulin R (Per (08/22/17 16:00) Patient Visit (08/22/17 ) Speech Sound Lang Comp (08/22/17 ) Patient Visit (08/22/17 ) Pt Eval Moderate Complexity (08/22/17 ) Cho 45g/M 3snack (12-1500 Elder) (08/22/17 Dinner) Ambulate TID (08/22/17 16:20) Sequential Compression Device 08,20 (08/22/17 16:20) Dvt/Vte Risk - Notifiy Physici (08/22/17 16:20) Furosemide Tablet (Lasix Tablet) (08/22/17 16:30) Potassium Chloride (Tablet) (Klor Con Ta (08/22/17 16:30) Pantoprazole Tablet (Protonix Tablet) (08/23/17 07:00) Comprehensive Metabolic Panel (08/24/17 06:00) Cbc No Diff (08/24/17 06:00) Patient Visit (08/23/17 ) Gait Training, Ea 15 Min (08/23/17 ) Functional Activities, Ea 15 (08/23/17 ) Exercise Therap, Ea 15 Min (08/23/17 ) Ex Neuromuscular, Ea 15 Min (08/23/17 ) Basic Metabolic Panel (08/25/17 06:00) Apixaban Tablet (Eliquis Tablet) (08/24/17 21:00) Patient Visit (08/24/17 ) Gait Training, Ea 15 Min (08/24/17 ) Functional Activities, Ea 15 (08/24/17 ) Exercise Therap, Ea 15 Min (08/24/17 ) Insulin Determir (Per Unit) (Levemir (Pe (08/25/17 09:00) Patient Visit (08/25/17 ) Functional Activities, Ea 15 (08/25/17 ) Gait Training, Ea 15 Min (08/25/17 ) Exercise Therap, Ea 15 Min (08/25/17 ) Patient Visit (08/26/17 ) Functional Activities, Ea 15 (08/26/17 ) Exercise Therap, Ea 15 Min (08/26/17 ) Gait Training, Ea 15 Min (08/26/17 ) Rehab Nursing Orders: Bladder Program, Bladder Scan, Bladder Training, Bowel Program, Bowel Training, Diseage Management, Edu in Press Rel Techn, Hydration Management, Nutrition Management, Pain Management, Wound Management Other Nursing Orders: Monitor for any urinary retention and constipation Intensity of Therapy to be met Patient to be seen: Min.3h per day/5 of 7d PT IPOC Problem List: Activity Tolerance Treatment Plan: Continue Plan of Care Bed Mobility, Concurrent Therapy, Education, Functional Activity Ravi, Functional Strength, Group Therapy, Gait, Safety, Therapeutic Exercise, Transfers Treatment Duration: Sep 12, 2017 Frequency: At least 5 of 7 days/Wk (IRF) Estimated Hrs Per Day: 1.5 hours per day OT IPOC Problems: Decreased Activ Tolerance, Decreased Safety Aware, Decreased UE Strength, Impaired Funct Balance, Impaired I ADL's ((safety)), Impaired Self- Care Skills OT Treatment, Training and Edu: Yes OT Problems Pt would benefit from skilled OT to increase her independence and safety in basic self care and IADLs and to prevent falls Plan of Care: ADL Retraining, Functional Mobility, Group Exercise/Act as Ind ( education, exercise, funct activities, activ tolerance, memory), UE Funct Exercise/Act, UE Neuromus Re-Ed/Coord Treatment Duration: Sep 01, 2017 Frequency: At least 5 of 7 days/Wk (IRF) Estimated Hrs Per Day: 1.[address] IPOC Speech Therapy Treatment Plan: Discontinue ST Treatment Duration: Aug 27, 2017 Frequency: Modified Program (IRF) Estimated Hrs Per Day: Other Clinic Receptionist/Case Mgmt Clinic Receptionist/Case Managemen: Discharge Planning, Patient/Family Counseling Physician IPOC Medical Issues being managed closely and that require the 24 hour availability of a physician:HTN CRI DM hypoglycemia Medical Issues: DVT Prophylaxis, Falls Precautions, Fluid/Electrolyte/ Nutrition Balance, Infection Protection, Pain Management, Other (List) (as per above) Brief Synthesis of Preadmission Screen, Post-Admission Evaluation, and Therapy Evaluations:87 yo female wwho had syncopal episode treated at OSH referred to IRU for ongoing care and therapies Patient bhad been Modified Independent Patinet had a decline in functional [place].PMH significant for DM HTN CRI Medical Prognosis: good Anticipated Length of Stay: 12-18-17 Rehab Goals Modified Indeependent to supervision for adls and mobilty skills Anticipated discharge destinat: Home with family and [facility] KACIE DAIGLE MD Aug 27, 2017 08:58
[2017-08-27] MEDS: APIXABAN 2.5 MG (ELIQUIS) TABLET PO SCH ×2 (09:17→20:40)
[2017-08-27] MEDS: DRONEDARONE TABLET 400 MG TABLET PO SCH ×2 (09:17→20:40)
[2017-08-27] MEDS: ASPIRIN 81 MG CHEW (CHILDREN'S ASA) PO SCH (09:17)
[2017-08-27] MEDS: amLODIPine 2.5MG (NORVASC) TAB PO SCH (09:17)
[2017-08-27] MEDS: LOSARTAN 50 MG (COZAAR) TAB PO SCH (09:17)
[2017-08-27] MEDS: CARVEDILOL 12.5 MG (COREG) TABLET PO SCH ×2 (09:17→20:40)
[2017-08-27] MEDS: inSUlin DETERMIR 1 UNIT/0.01 ML (LEVEMIR) CHARGE PER UNIT SQ SCH ×2 (09:20→20:41)
[2017-08-27 18:25] VITALS: BP 126/76
[2017-08-27] MEDS: ATORVASTATIN 40 MG (LIPITOR) TABLET PO SCH (20:40)
[2017-08-28 05:25] VITALS: BP 150/70
[2017-08-28] MEDS: inSUlin (REGULAR) HUMAN 1 UNIT/0.01 ML (CHARGE PER UNIT) SC SCH ×4 (05:29→21:00)
[2017-08-28] MEDS: PANTOPRAZOLE 20 MG TABLET (PROTONIX) PO SCH (05:35)
--- NOTE | 2017-08-28 08:17 | Progress Note (SOAP) ---
Subjective Time Seen by Provider: 08:15 Subjective/Events-last exam debility. Syncope. Dementia. Diabetes. Patient resting comfortably. Patient uses cane to get around. Patient had hypoglycemic episode this morning Objective Exam Vital Signs Date Time Temp Pulse Resp B/P (MAP) Pulse Ox O2 Delivery O2 Flow Rate FiO2 08/28/17 05:25 98.9 62 20 150/70 (96) 97 Room Air 08/27/17 21:00 Room Air 08/27/17 18:25 99.6 64 14 126/76 (93) 97 Room Air 08/27/17 09:00 Room Air I & O 08/28/17 07:00 Intake Total 1040 ml Balance 1040 ml Capillary Refill : Less Than 3 Seconds General Appearance: No Apparent Distress, WD/WN HEENT: Normal ENT Inspection Neck: Full Range of Motion, Normal Inspection Respiratory: Lungs Clear, No Accessory Muscle Use, No Respiratory Distress Cardiovascular: Regular Rate, Rhythm, No Murmur Gastrointestinal: non tender, soft Results Lab Laboratory Tests 08/27/17 10:41: Glucometer 106 08/27/17 16:12: Glucometer 162H 08/27/17 20:25: Glucometer 265H 08/28/17 05:28: Glucometer 55*L 08/28/17 05:54: Glucometer 70 Assessment/Plan Assessment/Plan Assess & Plan/Chief Complaint debility. Renal insufficiency. Diabetes. Syncope. patient voices no complaints. . 08/25/17. Debility. Renal insufficiency. Diabetes. Syncope. Patient worked yesterday. . 10/29/16. Debility. Renal insufficiency. Diabetes. Syncope. Patient resting comfortably area Patient voices no complaints Clinical Quality Measures DVT/VTE Risk/Contraindication: Risk Factor Score Per Nursin RFS Level Per Nursing on Admit: 3=High SHEMAR CORTEZ DO Aug 28, 2017 08:17
[2017-08-28] MEDS: DRONEDARONE TABLET 400 MG TABLET PO SCH ×2 (08:29→21:00)
[2017-08-28] MEDS: CARVEDILOL 12.5 MG (COREG) TABLET PO SCH ×2 (08:30→21:00)
[2017-08-28] MEDS: ASPIRIN 81 MG CHEW (CHILDREN'S ASA) PO SCH (08:30)
[2017-08-28] MEDS: LOSARTAN 50 MG (COZAAR) TAB PO SCH (08:30)
[2017-08-28] MEDS: APIXABAN 2.5 MG (ELIQUIS) TABLET PO SCH ×2 (08:30→21:00)
[2017-08-28] MEDS: amLODIPine 2.5MG (NORVASC) TAB PO SCH (08:30)
[2017-08-28] MEDS: inSUlin DETERMIR 1 UNIT/0.01 ML (LEVEMIR) CHARGE PER UNIT SQ SCH ×2 (08:31→21:00)
--- NOTE | 2017-08-28 12:11 | Physical Therapy Daily Note ---
PT Daily Note-Current Subjective Pt. agrees to Rx but state she is fatigued and having some SOB. "I have it occasionally" Agrees to use the FWW today and that she should use it at home on days when she feels SOB or weaker. Pain Numeric Pain Scale: 0-No Pain Mental Status Patient Orientation: Normal For Age hard of hearing Transfers Functional [place] Measure 0=Not Assessed/NA 4=Minimal Assistance 1=Total Assistance 5=Supervision or Setup 2=Maximal Assistance 6=Modified [place] 3=Moderate Assistance 7=Complete IndependenceIRFPAI Quality Coding Scale 6 Independent with activity with or without an assistive device 5 Patient requires set up or clean up by helper. Patient completes activity by themselves 4 Supervision or touching assist (CGA). [place] provide cues , steadying assist 3 The helper provides less than half the effort to complete the activity 2 The helper provides more than half the effort to complete the activity 1 Dependent. The helper does all the effort to complete an activity 7 Patient refused to complete or attempt activity 9 The patient did not perform the activity before the current illness or injury 88 Not attempted due to Medical conditions or safety concerns Transfers (B, C, W/C) (FIM): 6 Scootin Rollin Roll Left to Right (QC): 6 Supine to/from Sit: 6 Sit to/from Stand: 6 Sit to Lying (QC): 6 Sit to Stand (QC): 6 Chair/Oxh-si-Gbvcm Xfer(QC): 6 Bed to/from Chair: 6 Car Transfer (QC): 6 Weight Bearing Right Lower Extremity: Right Full Weight Bearing Left Lower Extremity: Left Full Weight Bearing Gait Training Does the Patient Walk?: Yes Gait (FIM): 6 Distance (FIM): 3=150 ft (175x2) Walk 10 feet (QC): 6 Walk 50 ft with 2 Turns(QC): 6 Walk 150 ft (QC): 6 Walking 10ft/uneven surface-QC: 6 Gait Level of Assist: 6 Gait Persons Needed: 0 Gait Assistive Device: FWW pt. feeling a little SOB this date and c/o fatigue, good stability noted with FWW Stair Training Stair Training: Handrails/: 2 handrails Stairs (FIM): 6 #of Steps: 12 1 Step (curb) (QC): 6 4 Steps (QC): 6 12 Steps (QC): 6 Stairs: Pattern: Reciprocal Level of Assist: 6 Balance Picking up an Object (QC): 5 Exercises Supine Ex: Bridging, Ankle pumps, Quad Set, Rolling, Heel Slides, Short Arc Quads, Straight leg raise, Hip abd/add Supine Reps: 10 NuStep Minutes: 8 NuStep Workload: 3 Treatments toilets indep Assessment Current Status: Good Progress PT Short Term Goals Short Term Goals Time Frame: Aug 29, 2017 Gait (FIM): 5 Gait Distance Comment: 400' Gait Level of Assist: 5 Gait Assistive Device: Cane Single Point PT Jewel Hole Cornerer Goals Jail Goals PT Jail Goals Time Frame: Sep 12, 2017 Transfers (B,C,W/C) (FIM): 6 Sit to Lying (QC): 6 Lying-Sitting on Side/Bed(QC): 6 Sit to Stand (QC): 6 Rollin Roll Left to Right (QC): 6 Chair/Vqn-yk-Rwdkv Xfer(QC): 6 Car Transfer (QC): 6 Gait (FIM): 6 Distance: 500' Walk 10 feet (QC): 6 Walk 10ft-Uneven Surface(QC): 6 Walk 50ft with 2 Turns (QC): 6 Walk 150 ft (QC): 6 Gait Level of Assist: 6 Gait Assistive Device: Cane Single Point Stairs (FIM): 5 # of Steps: 12 1 Step (curb) (QC): 4 4 Steps (QC): 4 12 Steps (QC): 4 Stairs Level Of Assist: 5 Picking up an Object (QC): 4 (SBA) PT Plan Treatment/Plan Treatment Plan: Continue Plan of Care Treatment Plan: Bed Mobility, Concurrent Therapy, Education, Functional Activity Ravi, Functional Strength, Group Therapy, Gait, Safety, Therapeutic Exercise, Transfers Treatment Duration: Sep 12, 2017 Frequency: At least 5 of 7 days/Wk (IRF) Estimated Hrs Per Day: 1.5 hours per day Patient and/or Family Agrees t: Yes Safety Risks/Education Patient Education: Gait Training, Transfer Techniques, Steps, Correct Positioning, Disease Process, Safety Issues Teaching Recipient: Patient Teaching Methods: Demonstration, Discussion Response to Teaching: Verbalize Understanding, Return Demonstration, Reinforcement Needed reviewed use of FWW and when to use FWW vs hurry cane Time/GCodes Time In: 1115 Time Out: 1215 Total Billed Treatment Time: 60 Total Billed Treatment 1,FA30m,GT15m,EX15m G Codes Necessary: BARBRA Negrete GERMAN TUTOR Aug 28, 2017 12:11
--- NOTE | 2017-08-28 13:31 | Physical Therapy Daily Note ---
PT Daily Note-Current Subjective Pt. c/o she is so cold and has no appetite and feels more fatigued. Temp taken at 99.3 and nurse alerted to pts. c/o Pain Numeric Pain Scale: 0-No Pain Mental Status Patient Orientation: Normal For Age very hard of hearing Transfers Functional [place] Measure 0=Not Assessed/NA 4=Minimal Assistance 1=Total Assistance 5=Supervision or Setup 2=Maximal Assistance 6=Modified [place] 3=Moderate Assistance 7=Complete IndependenceIRFPAI Quality Coding Scale 6 Independent with activity with or without an assistive device 5 Patient requires set up or clean up by helper. Patient completes activity by themselves 4 Supervision or touching assist (CGA). [place] provide cues , steadying assist 3 The helper provides less than half the effort to complete the activity 2 The helper provides more than half the effort to complete the activity 1 Dependent. The helper does all the effort to complete an activity 7 Patient refused to complete or attempt activity 9 The patient did not perform the activity before the current illness or injury 88 Not attempted due to Medical conditions or safety concerns Transfers (B, C, W/C) (FIM): 6 all TRFs Mod I Weight Bearing Right Lower Extremity: Right Full Weight Bearing Left Lower Extremity: Left Full Weight Bearing Gait Training Gait Assistive Device: FWW 250x1,150x1 FWW mod I Exercises Seated Therapy Exercises: Ankle pumps, Sit to stand, Long arc quads, Hip flexion Seated Reps: 12 Treatments in bed after Rx , head of bed up with hot coffee. hwite at hand Assessment Current Status: Good Progress nurse to assess pt. secondary to her c/o PT Short Term Goals Short Term Goals Time Frame: Aug 29, 2017 Gait (FIM): 5 Gait Distance Comment: 400' Gait Level of Assist: 5 Gait Assistive Device: Cane Single Point PT Skilled Nursing Goals Skilled Nursing Goals PT Skilled Nursing Goals Time Frame: Sep 12, 2017 Transfers (B,C,W/C) (FIM): 6 Sit to Lying (QC): 6 Lying-Sitting on Side/Bed(QC): 6 Sit to Stand (QC): 6 Rollin Roll Left to Right (QC): 6 Chair/Kzy-ne-Qwdhm Xfer(QC): 6 Car Transfer (QC): 6 Gait (FIM): 6 Distance: 500' Walk 10 feet (QC): 6 Walk 10ft-Uneven Surface(QC): 6 Walk 50ft with 2 Turns (QC): 6 Walk 150 ft (QC): 6 Gait Level of Assist: 6 Gait Assistive Device: Cane Single Point Stairs (FIM): 5 # of Steps: 12 1 Step (curb) (QC): 4 4 Steps (QC): 4 12 Steps (QC): 4 Stairs Level Of Assist: 5 Picking up an Object (QC): 4 (SBA) PT Plan Treatment/Plan Treatment Plan: Continue Plan of Care Treatment Plan: Bed Mobility, Concurrent Therapy, Education, Functional Activity Ravi, Functional Strength, Group Therapy, Gait, Safety, Therapeutic Exercise, Transfers Treatment Duration: Sep 12, 2017 Frequency: At least 5 of 7 days/Wk (IRF) Estimated Hrs Per Day: 1.5 hours per day Patient and/or Family Agrees t: Yes Safety Risks/Education Patient Education: Gait Training, Transfer Techniques Teaching Recipient: Patient Teaching Methods: Demonstration, Discussion Response to Teaching: Verbalize Understanding, Return Demonstration, Reinforcement Needed Time/GCodes Time In: 1300 Time Out: 1330 Total Billed Treatment Time: 30 Total Billed Treatment 1,GT30m G Codes Necessary: BARBRA Negrete SALVAGER Aug 28, 2017 13:31
--- NOTE | 2017-08-28 14:03 | Occupational Ther Daily Note ---
OT Current Status-Daily Note Subjective Pt seen in room, up in bed, agreeable to OT. No pain mentioned but pt reported she seemed more SOB this morning. She thought it was from not moving much yesterday. Appearance Alert, cooperative Mental Status/Objective Functional [place] Measure 0=Not Assessed/NA 4=Minimal Assistance 1=Total Assistance 5=Supervision or Setup 2=Maximal Assistance 6=Modified [place] 3=Moderate Assistance 7=Complete [place] ADL-Treatment Pt was able to get herself out of bed and walk to bathroom with SPC with triangle base., with no LOB. She tended to also reach out with her other hand to balance on wall or furniture if available and was observed to lean up against sink for support when putting her shirt on. Functional [place] Measure 0=Not Assessed/NA 4=Minimal Assistance 1=Total Assistance 5=Supervision or Setup 2=Maximal Assistance 6=Modified [place] 3=Moderate Assistance 7=Complete IndependenceIRFPAI Quality Coding Scale 6 Independent with activity with or without an assistive device 5 Patient requires set up or clean up by helper. Patient completes activity by themselves 4 Supervision or touching assist (CGA). [place] provide cues , steadying assist 3 The helper provides less than half the effort to complete the activity 2 The helper provides more than half the effort to complete the activity 1 Dependent. The helper does all the effort to complete an activity 7 Patient refused to complete or attempt activity 9 The patient did not perform the activity before the current illness or injury 88 Not attempted due to Medical conditions or safety concerns Eating (FIM): 7 (Pt is able to open food containers, cut food, feed herself with no difficulty. No dentures. ) Eating (QC): 6 Grooming (FIM): 6 (Pt stood at sink to brush teeth and hair, balancing on countertop. Did not chose makeup. Washed face and hands in shower) Oral Hygiene (QC): 6 Bathing (FIM): 6 (Pt washed and dried all parts, standing and sitting with no LOB. Turned water on and off and retrieved towels from bar. Shower bench, grab bar, hand held shower) Shower/Bathe Self (QC): 6 Upper Body (FIM): 6 (Retrieved clean clothes from closet and put dirty ones away, with SPQ with tripod base. Doffed and donned clothing with no assistance, including managing buttons and hooking bra. ) Upper Body Dressing (QC): 6 Lower Body Dressing (FIM): 6 (Retrieved clean clothes from closet and put dirty ones away, with SPQ with tripod base. Doffed and donned clothing with no assistance, including panties, slacks, shoes and socks) Lower Body Dressing (QC): 6 On/Off Footwear (QC): 6 Toileting (FIM): 6 (Managed clothing and hygiene with no help or supervision needed. No LOB. Tall toilet, grab bar. ) Toileting Hygiene (QC): 6 Toilet/Commode Transfer (FIM): 6 (On/off tall toilet with grab bar. No LOB observed) Toilet Transfer (QC): 6 Shower Transfer(FIM): 6 (On/off shower bench with no assistnace. Grab bar) Other Treatment Pt walked to gym with SBA, SPC with tripod base, with no LOB. Pt was able to get on/off chair with arms without assistance. Pt did 15 minutes bilat UE ex with arm bike set at 15W resistance (increase 3 minutes), with a couple brief recovery periods.Pt also did graded clothespins and dot activity with 1# weight on each arm, all to strengthen arms for safe mobility and ALDs. Pt educ energy conservation techniques, especially pacing herself when she has SOB times. Pt walked back to room, was left up in recliner, all needs met. pt voiced no concerns about going home tomorrow and did not believe that she needed any additional equipment for her bathroom (she has shower chair, grab bars). Pt also encouraged to use 4WW with seat for transporting items at home, for increased steadiness. pt left up in recliner, all needs met. Education OT Patient Education: Progress toward Goal/Update tx plan, Purpose of tx/ functional activities Teaching Recipient: Patient Teaching Methods: Discussion Response to Teaching: Verbalize Understanding OT Short Term Goals Short Term Goals 1=Demonstrate adherence to instructed precautions during ADL tasks. 2=Patient will verbalize/demonstrate understanding of assistive devices/ modifications for ADL. 3=Patient will improve strength/tolerance for activity to enable patient to perform ADL's. OT Usp Goals Usp Goals Time Frame: Sep 01, 2017 Eating (FIM): 7 Eating (QC): 6 Groomin Oral Hygiene (QC): 6 Bathing(FIM): 6 Shower/Bathe Self (QC): 6 Upper Body Dressing(FIM): 6 Upper Body Dressing (QC): 6 Lower Body Dressing(FIM): 6 Lower Body Dressing (QC): 6 On/Off Footwear (QC): 6 Toileting(FIM): 6 Toileting Hygiene (QC): 6 Toilet/Commode Transfer(FIM): 6 Toilet/Commode Transfer (QC): 6 Shower Transfer(FIM): 6 Pt will demonstrate safe techniques for IADLs, using 4WW for steadiness and energy conservation Additional Goals: 2-Verbalize Understanding, 3-ImproveStrength/Ravi 1=Demonstrate adherence to instructed precautions during ADL tasks. 2=Patient will verbalize/demonstrate understanding of assistive devices/ modifications for ADL. 3=Patient will improve strength/tolerance for activity to enable patient to perform ADL's. OT Education/Plan Problem List/Assessment Pt would benefit from skilled OT to increase her independence and safety in basic self care and IADLs and to prevent falls Discharge Recommendations Plan/Recommendations: Continue POC (anticipate DC to home tomorrow) Treatment Plan/Plan of Care Patient would benefit from OT for education, treatment and training to promote independence in ADL's, mobility, safety and/or upper extremity function for ADL' s. Plan of Care: ADL Retraining, Functional Mobility, Group Exercise/Act as Ind ( education, exercise, funct activities, activ tolerance, memory), UE Funct Exercise/Act, UE Neuromus Re-Ed/Coord Treatment Duration: Sep 01, 2017 Frequency: At least 5 of 7 days/Wk (IRF) Estimated Hrs Per Day: 1.5 hours per day Agreement: Yes Rehab Potential: Fair Time/GCodes Start Time: 09:30 Stop Time: 11:00 Total Time Billed (hr/min): 90 Billed Treatment Time visit, 50 minutes ADL, 40 minutes exercise CLIVE WHITAKER OT Aug 28, 2017 14:03
[2017-08-28 18:00] VITALS: BP 147/67
[2017-08-28] MEDS: ATORVASTATIN 40 MG (LIPITOR) TABLET PO SCH (21:00)
[2017-08-29] MEDS: inSUlin (REGULAR) HUMAN 1 UNIT/0.01 ML (CHARGE PER UNIT) SC SCH ×2 (05:25→11:00)
[2017-08-29] MEDS: PANTOPRAZOLE 20 MG TABLET (PROTONIX) PO SCH (05:26)
[2017-08-29 05:44] VITALS: BP 119/64
[2017-08-29 06:41] LABS: CALCIUM 9.3 MG/DL (8.5-10.1); CREATININE SERUM 1.56 MG/DL (0.60-1.30); POTASSIUM 4.2 MMOL/L (3.6-5.0)
--- NOTE | 2017-08-29 08:08 | Progress Note (SOAP) ---
Subjective Date Seen by Provider: Aug 29, 2017 Time Seen by Provider: 08:05 Subjective/Events-last exam debility. Diabetes. Dementia Patient has improved to be discharged today Objective Exam Vital Signs Date Time Temp Pulse Resp B/P (MAP) Pulse Ox O2 Delivery O2 Flow Rate FiO2 08/29/17 05:44 99.1 67 16 119/64 (82) 92 Room Air 08/28/17 21:00 Room Air 08/28/17 18:00 98.2 65 20 147/67 (93) 95 Room Air 08/28/17 09:00 97 Room Air I & O 08/29/17 07:00 Intake Total 390 ml Balance 390 ml Capillary Refill : Less Than 3 Seconds General Appearance: Thin HEENT: Normal ENT Inspection Neck: Full Range of Motion, Normal Inspection Respiratory: Normal Breath Sounds, No Accessory Muscle Use, No Respiratory Distress Cardiovascular: No Murmur Results Lab Laboratory Tests 08/29/17 06:06 Laboratory Tests 08/28/17 11:37: Glucometer 305H 08/28/17 12:56: Glucometer 316H 08/28/17 16:11: Glucometer 216H 08/28/17 20:54: Glucometer 235H 08/29/17 05:25: Glucometer 119H 08/29/17 06:06: Sodium Level 140, Potassium Level 4.2, Chloride Level 110H, Carbon Dioxide Level 20L, Anion Gap 10, Blood Urea Nitrogen 30H, Creatinine 1.56H, Estimat Glomerular Filtration Rate 31, BUN/Creatinine Ratio 19, Glucose Level 112H, Calcium Level 9.3 Assessment/Plan Assessment/Plan Assess & Plan/Chief Complaint debility. Renal insufficiency. Diabetes. Syncope. patient voices no complaints. . 08/25/17. Debility. Renal insufficiency. Diabetes. Syncope. Patient worked yesterday. . 10/29/16. Debility. Renal insufficiency. Diabetes. Syncope. Patient resting comfortably area Patient voices no complaints. . 08/29/17. Debility. Renal insufficiency. Diabetes. Syncope. Patient be discharged today. Patient doing better Patient discharged to home Clinical Quality Measures DVT/VTE Risk/Contraindication: Risk Factor Score Per Nursin RFS Level Per Nursing on Admit: 3=High SHEMAR CORTEZ DO Aug 29, 2017 08:08
--- NOTE | 2017-08-29 08:12 | Discharge Inst-Simple/Standard ---
Discharge Inst-Standard Patient Instructions/Follow Up Plan of Care/Instructions/FU: following diabetic diet. to see primary care physician in one week Activity as Tolerated: Yes Discharge Diet: ADA Diet SHEMAR CORTEZ DO Aug 29, 2017 08:12
[2017-08-29] MEDS: DRONEDARONE TABLET 400 MG TABLET PO SCH (08:36)
[2017-08-29] MEDS: CARVEDILOL 12.5 MG (COREG) TABLET PO SCH (08:36)
[2017-08-29] MEDS: LOSARTAN 50 MG (COZAAR) TAB PO SCH (08:36)
[2017-08-29] MEDS: ASPIRIN 81 MG CHEW (CHILDREN'S ASA) PO SCH (08:36)
[2017-08-29] MEDS: APIXABAN 2.5 MG (ELIQUIS) TABLET PO SCH (08:36)
[2017-08-29] MEDS: amLODIPine 2.5MG (NORVASC) TAB PO SCH (08:36)
--- NOTE | 2017-08-29 08:37 | Therapy Team Discharge Summary ---
Therapy Discharge Summary Discharge Recommendations Date of Discharge Therapy D/C Recommendations: Home w/ Family Support Occupational Therapy Pt. has been seen by occupational therapy to increase overall strength and independence with daily tasks. Pt. has met all goals, and demonstrates mod I/I with bathing/dressing/toileting/ADLs overall. Pt. plans to discharge home with spouse support. No further OT warranted at this time. Decreased Activ Tolerance, Decreased Safety Aware, Decreased UE Strength, Impaired Funct Balance, Impaired I ADL's ((safety)), Impaired Self-Care Skills PT Fci Goals Church Musician Goals PT [facility]ci Goals Time Frame: Sep 12, 2017 Transfers (B,C,W/C) (FIM): 6 Roll Left to Right (QC): 6 Sit to Lying (QC): 6 Lying-Sitting on Side/Bed(QC): 6 Sit to Stand (QC): 6 Chair/Gys-yy-Vpjth Xfer(QC): 6 Car Transfer (QC): 6 Gait (FIM): 6 Distance: 500' Walk 10 feet (QC): 6 Walk 10ft-Uneven Surface(QC): 6 Walk 50ft with 2 Turns (QC): 6 Walk 150 ft (QC): 6 Gait Level of Assist: 6 Gait Assistive Device: Cane Single Point Stairs (FIM): 5 # of Steps: 12 1 Step (curb) (QC): 4 4 Steps (QC): 4 12 Steps (QC): 4 Stairs Level Of Assist: 5 Picking up an Object (QC): 4 (SBA) OT Fci Goals Fci Goals Time Frame: Sep 01, 2017 Eating (FIM): 7 (met) Eating (QC): 6 (met) Oral Hygiene (QC): 6 (met) Grooming(FIM): 6 (met) Bathing(FIM): 6 (met) Shower/Bathe Self (QC): 6 (met) Upper Body Dressing(FIM): 6 (met) Upper Body Dressing (QC): 6 (met) Lower Body Dressing(FIM): 6 (met) Lower Body Dressing (QC): 6 (met) On/Off Footwear (QC): 6 (met) Toileting(FIM): 6 (met) Toileting Hygiene (QC): 6 (met) Toilet/Commode Transfer(FIM): 6 (met) Toilet/Commode Transfer (QC): 6 (met) Shower Transfer(FIM): 6 (met) Pt will demonstrate safe techniques for IADLs, using 4WW for steadiness and energy conservation Additional Goals: 2-Verbalize Understanding, 3-ImproveStrength/Ravi 1=Demonstrate adherence to instructed precautions during ADL tasks. 2=Patient will verbalize/demonstrate understanding of assistive devices/ modifications for ADL. 3=Patient will improve strength/tolerance for activity to enable patient to perform ADL's. ASIF SHANKS OT Aug 29, 2017 08:37
[2017-08-29] MEDS: inSUlin DETERMIR 1 UNIT/0.01 ML (LEVEMIR) CHARGE PER UNIT SQ SCH (08:40)
--- NOTE | 2017-08-29 09:11 | Therapy Team Discharge Summary ---
Therapy Discharge Summary Discharge Recommendations Date of Discharge Therapy D/C Recommendations: Home w/ Family Support Physical Therapy Patient came to rehab with debility. Upon evaluation patient performed bed mobility with SBA, transfers with CGA, car transfers with CGA, ambulated 300' with a SPC with CGA and went up and down 4 steps using 1 handrail with CGA. Patient has been performing bed mobility and transfer training, balance and endurance training, functional strengthening, stair training, gait training, and education. 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 Now, patient performs bed mobility and transfers with mod I, ambulates 175' with a rolling walker with mod I ( including 50' with at least 2 turns of 90 degrees and 10' over an uneven surface ), performs a car transfer with mod I, picks up an object from the floor with SBA, and can go up and down 12 steps with 2 handrails with mod I. Patient is being discharged from this facility today and will be discharged from PT at this time. Occupational Therapy Decreased Activ Tolerance, Decreased Safety Aware, Decreased UE Strength, Impaired Funct Balance, Impaired I ADL's ((safety)), Impaired Self-Care Skills PT Emulsion Operator Goals Emulsion Operator Goals PT Emulsion Operator Goals Time Frame: Sep 12, 2017 Transfers (B,C,W/C) (FIM): 6 Roll Left to Right (QC): 6 Sit to Lying (QC): 6 Lying-Sitting on Side/Bed(QC): 6 Sit to Stand (QC): 6 Chair/Unr-ie-Zixyx Xfer(QC): 6 Car Transfer (QC): 6 Gait (FIM): 6 Distance: 500' Walk 10 feet (QC): 6 Walk 10ft-Uneven Surface(QC): 6 Walk 50ft with 2 Turns (QC): 6 Walk 150 ft (QC): 6 Gait Level of Assist: 6 Gait Assistive Device: Cane Single Point Stairs (FIM): 5 # of Steps: 12 1 Step (curb) (QC): 4 4 Steps (QC): 4 12 Steps (QC): 4 Stairs Level Of Assist: 5 Picking up an Object (QC): 4 (SBA) OT Emulsion Operator Goals Retirement Goals Time Frame: Sep 01, 2017 Eating (FIM): 7 (met) Eating (QC): 6 (met) Oral Hygiene (QC): 6 (met) Grooming(FIM): 6 (met) Bathing(FIM): 6 (met) Shower/Bathe Self (QC): 6 (met) Upper Body Dressing(FIM): 6 (met) Upper Body Dressing (QC): 6 (met) Lower Body Dressing(FIM): 6 (met) Lower Body Dressing (QC): 6 (met) On/Off Footwear (QC): 6 (met) Toileting(FIM): 6 (met) Toileting Hygiene (QC): 6 (met) Toilet/Commode Transfer(FIM): 6 (met) Toilet/Commode Transfer (QC): 6 (met) Shower Transfer(FIM): 6 (met) Pt will demonstrate safe techniques for IADLs, using 4WW for steadiness and energy conservation Additional Goals: 2-Verbalize Understanding, 3-ImproveStrength/Ravi 1=Demonstrate adherence to instructed precautions during ADL tasks. 2=Patient will verbalize/demonstrate understanding of assistive devices/ modifications for ADL. 3=Patient will improve strength/tolerance for activity to enable patient to perform ADL's. KELTON PALMER PT Aug 29, 2017 09:11
[2017-08-29] MEDS ORDERED: PRAV20TA3 PO (09:58)
[2017-08-29] MEDS ORDERED: PANT20TA3 PO (10:42)
[2017-08-29] MEDS ORDERED: ASPI-999 PO (10:42)
[2017-08-29] MEDS ORDERED: CARV12.53 PO (10:42)
[2017-08-29 15:07] VITALS: BP 128/72
== END 2017-08-29 11:30 | disposition home or self-care (01) | DRG 948 ==
PROVIDERS: ADMIT Family Medicine; ATTEND Physical Medicine & Rehabilitation
DX: R53.1 Weakness (principal); I12.9 Hypertensive chronic kidney disease with stage 1 through stage 4 chronic kidney disease, or unspecified chronic kidney disease; N18.9 Chronic kidney disease, unspecified; I48.91 Unspecified atrial fibrillation; E11.649 Type 2 diabetes mellitus with hypoglycemia without coma; Z79.4 Long term (current) use of insulin; F03.90 Unspecified dementia, unspecified severity, without behavioral disturbance, psychotic disturbance, mood disturbance, and anxiety; J44.9 Chronic obstructive pulmonary disease, unspecified; Z95.5 Presence of coronary angioplasty implant and graft
CPT/HCPCS: 36415; 80048; 80053; 82962; 85027

== ENCOUNTER 2017-12-13 00:33 | Inpatient (IN) | payer MEDICARE, OTHER ==
[~2017-12-13] VITALS: Ht 149.9 cm; Wt 50.1 kg
[~2017-12-13 00:33] MED LIST changes: +ASPI-999 PO; +CARV12.53 PO; +METO-387 PO; +PANT20TA3 PO; +POTA10TA10 PO; +PRAV20TA3 PO; +SITA50TA PO
--- OUTSIDE RECORDS SUMMARY | 2017-12-13 00:41 | XMS REPORT | CCD ---
Author Author [facility] Organization [facility] Address [address] [place] [address] Phone Care Team Providers Care Security Chief [employer] Name Role Phone PP Unavailable CCM Unavailable Summary Purpose Interface Exchange Insurance Providers Payer name Policy type / Coverage type Covered green party ID Effective Begin Date Effective End Date WPS Medicare Part B Medicare Part B [id number] Unknown Unknown [employer] Medicare Part B [id number] Unknown Unknown Family history Mother Diagnosis Age At Onset Stroke Unknown Brother Diagnosis Age At Onset Heart Attack Unknown alcohol dependence Unknown Daughter Diagnosis Age At Onset Hypertension Unknown Father Diagnosis Age At Onset Heart Attack Unknown Social History Social History Element Codes Description Effective Dates Marital status Unknown Nazario 06/15/2017 Living arrangements Unknown House with spouse 05/11/2017 Number of children Unknown 3 05/04/[address]: [id number] Never smoker 05/04/2015 Alcohol history Unknown occasionally drinks alcohol 05/04/2015 Allergies, Adverse Reactions, Alerts Allergies, Adverse Reactions, Alerts data not found Past Medical History Illness Codes Condition Status Onset Date Resolved Date Essential (primary) hypertension ICD-9: 401.1 ICD-10: I10 Active 09/20/2016 Unknown Mixed hyperlipidemia ICD-9: 272.2 ICD-10: E78.2 Active 05/11/2017 Unknown Type 2 diabetes mellitus without complications ICD-9: 250.00 ICD-10: E11.9 Active 05/03/2015 Unknown Essential (primary) hypertension ICD-9: 401.9 ICD-10: I10 Active 08/31/2016 Unknown Weakness ICD-9: 780.79 ICD-10: R53.1 Active 08/30/2017 Unknown Dyspnea, unspecified ICD-9: 786.09 ICD-10: R06.00 Active 07/20/2015 Unknown Encounter for follow-up examination after completed treatment for conditions other than malignant neoplasm ICD-9: V67.59 ICD-10: Z09 Active 08/30/2017 Unknown Unsteadiness on feet ICD-9: 781.2 ICD-10: R26.81 Active 06/15/2017 Unknown Impacted cerumen, right ear ICD-9: 380.4 ICD-10: H61.21 Active 06/07/2016 Unknown Encounter for immunization ICD-9: V04.81 ICD-10: Z23 Active 06/01/2016 Unknown Other specified cardiac arrhythmias ICD-9: 427.89 ICD-10: I49.8 Active 03/24/2016 Unknown Edema, unspecified ICD -9: 782.3 ICD-10: R60.9 Active 07/07/2015 Unknown Diabetes Unknown Active 05/04/2015 Unknown Hypertension Unknown Active 05/04/2015 Unknown DIABETES TYPE II ICD-9 : 250.00 Active 05/03/2015 Unknown ESSENTIAL HYPERTENSION ICD-9: 401.9 Active 05/03/2015 Unknown Problems Condition Codes Effective Dates Condition Status Essential (primary) hypertension ICD-9: 401.1 ICD-10: I10 09/20/2016 Active Mixed hyperlipidemia ICD-9: 272.2 ICD-10: E78.2 05/11/2017 Active Type 2 diabetes mellitus without complications ICD-9: 250.00 ICD-10: E11.9 05/03/2015 Active Essential (primary) hypertension ICD-9: 401.9 ICD-10: I10 08/31/2016 Active Weakness ICD-9: 780.79 ICD-10: R53.1 08/30/2017 Active Dyspnea, unspecified ICD-9: 786.09 ICD-10: R06.00 07/20/2015 Active Encounter for follow-up examination after completed treatment for conditions other than malignant neoplasm ICD-9: V67.59 ICD-10: Z09 08/30/2017 Active Unsteadiness on feet ICD-9: 781.2 ICD-10: R26.81 06/15/2017 Active Impacted cerumen, right ear ICD-9: 380.4 ICD-10: H61.21 06/07/2016 Active Encounter for immunization ICD-9: V04.81 ICD-10: Z23 06/01/2016 Active Other specified cardiac arrhythmias ICD-9: 427.89 ICD-10: I49.8 03/24/2016 Active Edema, unspecified ICD -9: 782.3 ICD-10: R60.9 07/07/2015 Active Diabetes Unknown 05/04/2015 Active Hypertension Unknown 05/04/2015 Active DIABETES TYPE II ICD-9 : 250.00 05/03/2015 Active ESSENTIAL HYPERTENSION ICD-9: 401.9 05/03/2015 Active Medications Medication Codes Instructions Start Date Stop Date Status Fill Instructions losartan 50 mg tablet RxNorm: 846390 1 Tablet(s) PO QAM 201603/12/2018 Active Lasix 20 mg tablet RxNorm: 833990 1 Tablet(s) PO daily 201610/03/2017 Inactive potassium chloride ER 10 mEq tablet,extended release RxNorm: 053377 1 Tablet(s) PO daily while on the Lasix 08/30/2017 Inactive Toujeo SoloStar 300 unit/mL (1.5 mL) subcutaneous insulin pen RxNorm: 5476150 35 Unit(s) SQ QHS MANAGED BY DR. JOHNSON 06/15/2017 10/12/2017 Active Eliquis 5 mg tablet RxNorm: 5840304 TAKE ONE TABLET BY MOUTH TWICE DAILY 03/01/2017 02/23/2018 Active Januvia 100 mg tablet RxNorm: 167721 1/2 Tablet(s) PO daily 04/04/2017 Inactive losartan 50 mg tablet RxNorm: 229717 1 Tablet(s) PO BID 201509/13/2017 Inactive amlodipine 10 mg tablet RxNorm: 874539 1 Tablet(s) PO daily 06/14/2017 Inactive generic for NORVASC losartan 50 mg tablet RxNorm: 040953 1 Tablet(s) PO daily 201508/31/2016 Inactive Toujeo SoloStar 300 unit/mL (1.5 mL) subcutaneous insulin pen RxNorm: 6054168 40 Unit(s) SQ QHS MANAGED BY DR. JOHNSON 07/01/2016 06/14/2017 Inactive Humalog 100 unit/mL subcutaneous solution RxNorm: 999286 15 Unit(s) SQ AC MANAGED BY DR. JOHNSON 06/02/2016 No Stop Date Active Toujeo SoloStar 300 unit/mL (1.5 mL) subcutaneous insulin pen RxNorm: 5315961 35 Unit(s) SQ QHS MANAGED BY DR. JOHNSON 06/02/2016 06/30/2016 Inactive carvedilol 3.125 mg tablet RxNorm: 742555 1 Tablet(s) PO BID 04/23/2016 Inactive simvastatin 40 mg tablet RxNorm: 340576 1 Tablet(s) PO QHS 01/29/2017 Inactive Humalog 100 unit/mL subcutaneous solution RxNorm: 755218 13 Unit(s) SQ AC MANAGED BY DR. JOHNSON 01/26/2016 06/01/2016 Inactive Eliquis 5 mg tablet RxNorm: 3945631 1 Tablet(s) PO BID 201501/13/2017 Inactive carvedilol 6.25 mg tablet RxNorm: 225713 1 Tablet(s) PO BID 2016 Inactive Humalog 100 unit/mL subcutaneous solution RxNorm: 442053 Unit(s) SQ UD as directed by office 08/07/2015 01/25/2016 Inactive Klor-Con 10 mEq tablet,extended release RxNorm: 533036 1 Tablet(s) PO daily as needed 06/26/2015 10/23/2015 Inactive Lasix 20 mg tablet RxNorm: 157694 1 Tablet(s) PO daily as needed 06/26/2015 10/23/2015 Inactive fluticasone 50 mcg/actuation nasal spray,suspension RxNorm: 554446 2 [place] NASAL daily No Start Date Active Multaq 400 mg tablet RxNorm: 451665 1 Tablet(s) PO BID No Start Date Active cetirizine 10 mg tablet RxNorm: 7221786 1 Tablet(s) PO daily No Start Date Active Norvasc 2.5 mg tablet RxNorm: 144376 1 Tablet(s) PO daily No Start Date Active losartan 25 mg tablet RxNorm: 261851 1 Tablet(s) PO daily No Start Date 08/31/2016 Inactive losartan 100 mg tablet RxNorm: 937155 1 Tablet(s) PO daily No Start Date 06/30/2016 Inactive Klor-Con 10 mEq tablet,extended release RxNorm: 499855 1 Tablet(s) PO daily as needed No Start Date 06/25/2015 Inactive simvastatin 40 mg tablet RxNorm: 618528 1 Tablet(s) PO daily No Start Date 02/04/2016 Inactive carvedilol 6.25 mg tablet RxNorm: 019324 1 Tablet(s) PO BID No Start Date 11/30/2015 Inactive Eliquis 5 mg tablet RxNorm: 5185583 1 Tablet(s) PO BID No Start Date 01/19/2016 Inactive Toujeo SoloStar 300 unit/mL (1.5 mL) subcutaneous insulin pen RxNorm: 8119277 33 Unit(s) SQ QHS MANAGED BY DR. JOHNSON No Start Date 06/01/2016 Inactive Lasix 20 mg tablet RxNorm: 505692 1 Tablet(s) PO daily as needed No Start Date 06/25/2015 Inactive Humalog 100 unit/mL subcutaneous solution RxNorm: 059314 10 Unit(s) SQ TID No Start Date 08/06/2015 Inactive amlodipine 5 mg tablet RxNorm: 052011 1 Tablet(s) PO daily No Start Date 08/31/2016 Inactive Medication Administered No Medication Administered data Immunizations Vaccine Codes Date Status Influenza CVX: 141 06/02/2016 completed Influenza CVX: 141 07/17/2015 completed Influenza CVX: 141 06/18/2014 completed Pneumococcal CVX: 33 06/18/2014 completed Assessments Condition Codes Effective Dates Essential (primary) hypertension ICD-10: I10 ICD-9: 401.1 10/10/2017 Mixed hyperlipidemia ICD-10: E78.2 ICD-9: 272.2 10/10/2017 Type 2 diabetes mellitus without complications ICD-10: E11.9 ICD-9: 250.00 10/10/2017 Weakness ICD-10: R53.1 ICD-9: 780.79 09/07/2017 Essential (primary) hypertension ICD-10: I10 ICD-9: 401.9 09/07/2017 Dyspnea, unspecified ICD-10: R06.00 ICD-9: 786.09 08/30/2017 Encounter for follow-up examination after completed treatment for conditions other than malignant neoplasm ICD-10: Z09 ICD-9: V67.59 08/30/2017 Unsteadiness on feet ICD-10: R26.81 ICD-9: 781.2 08/30/2017 Impacted cerumen, right ear ICD-10: H61.21 ICD-9: 380.4 06/08/2016 Encounter for immunization ICD-10: Z23 ICD-9: V04.81 06/02/2016 Other specified cardiac arrhythmias ICD-10: I49.8 ICD-9: 427.89 03/25/2016 Edema, unspecified ICD-10: R60.9 ICD-9: 782.3 07/08/2015 DIABETES TYPE II ICD-9: 250.00 2014 ESSENTIAL HYPERTENSION ICD-9: 401.9 05/04 Reason For Visit Reason For Visit Effective Dates Notes hypertension 10/10/2017 weakness 09/07/2017 fever 08/30/2017 hypertension 08/15/2017 hypertension 06/15/2017 hypertension 05/11/2017 hypertension 01/05/2017 hypertension 09/20/2016 Hospital Follow Up 09/01/2016 diabetes mellitus 06/02/2016 blood pressure followup 03/25/2016 diabetes mellitus 01/26/2016 diabetes mellitus 10/29/2015 edema 07/21/2015 diabetes mellitus 05/04/2015 Results Observation Observation Code Item Item Code Result Date Tsh Ord6 hTSH II 3.31 uIU/mL 05/25/2017 Cbc With Differential Ord2 WBC 8.27 K/ul 05/25/2017 Cbc With Differential Ord2 RBC 4.62 M/ul 05/25/2017 Cbc With Differential Ord2 HGB 14.4 g/dl 05/25/2017 Cbc With Differential Ord2 Neut% 32.1 % 05/25/2017 Cbc With Differential Ord2 HCT 42.6 % 05/25/2017 Cbc With Differential Ord2 MCV 92.2 fl 05/25/2017 Cbc With Differential Ord2 Lymph% 45.7 % 05/25/2017 Cbc With Differential Ord2 MCH 31.2 pg 05/25/2017 Cbc With Differential Ord2 [place]% 8.9 % 05/25/2017 Cbc With Differential Ord2 Eos% 9.7 % 05/25/2017 Cbc With Differential Ord2 MCHC 33.8 pg 05/25/2017 Cbc With Differential Ord2 PLT 493 K/ul 05/25/2017 Cbc With Differential Ord2 Baso% 3.6 % 05/25/2017 Cbc With Differential Ord2 Neut ABS# 2.65 K/ul 05/25/2017 Cbc With Differential Ord2 RDW 16.3 % 05/25/2017 Cbc With Differential Ord2 Lymph ABS# 3.78 K/ul 05/25/2017 Cbc With Differential Ord2 [place] ABS# 0.7 K/ul 05/25/2017 Cbc With Differential Ord2 Eos ABS# 0.8 K/ul 05/25/2017 Cbc With Differential Ord2 Baso ABS# 0.3 K/ul 05/25/2017 Manual Differential Ord52 D-Neutr 50 % 05/25/2017 Manual Differential Ord52 D-Lymph 38 % 05/25/2017 Manual Differential Ord52 D-Eos 10 % 05/25/2017 Manual Differential Ord52 D-1 2 NRBC 05/25/2017 Comp Metabolic Ztn799 NA 140 mEq/L 05/25/2017 Comp Metabolic Bhy866 K 4.0 mEq/L 05/25/2017 Comp Metabolic Mvu170 CL 107 mEq/L 05/25/2017 Comp Metabolic Oue429 CO2 22.0 mEq/L 05/25/2017 Comp Metabolic Wvf354 ANION GAP 15 05/25/2017 Comp Metabolic Ftp977 GLUCOSE 97 mg/dL 05/25/2017 Comp Metabolic Vgt980 Creat 0.9 mg/dL 05/25/2017 Comp Metabolic Unr373 eGFR 61 ml/min/1.73m2 05/25/2017 Comp Metabolic Ast821 BUN 16 mg/dL 05/25/2017 Comp Metabolic Ibw506 B/C Ratio 17.4 Ratio 05/25/2017 Comp Metabolic Vhd590 CALCIUM 9.1 mg/dL 05/25/2017 Comp Metabolic Xvo765 ALK PHOS 109 U/L 05/25/2017 Comp Metabolic Mxp215 AST(SGOT) 19 U/L 05/25/2017 Comp Metabolic Pge032 ALT(SGPT) 17 U/L 05/25/2017 Comp Metabolic Rbp244 BILI T 0.4 mg/dL 05/25/2017 Comp Metabolic Tiy539 ALBUMIN 3.3 g/dL 05/25/2017 Comp Metabolic Lhs738 TPRO 6.0 g/dL 05/25/2017 Comp Metabolic Qae802 GLOB 2.7 g/dL 05/25/2017 Comp Metabolic Oty161 A/G Ratio 1.2 Ratio 05/25/2017 Comp Metabolic Hef617 Osmo 281 mOsmo 05/25/2017 Lipid Ord30 CHOL 204 mg/dL 05/25/2017 Lipid Ord30 HDL 49.0 mg/dl 05/25/2017 Lipid Ord30 TRIG 117 mg/dL 05/25/2017 Lipid Ord30 LDL 132 mg/dL 05/25/2017 Lipid Ord30 C/HDL 4.2 Ratio 05/25/2017 %Hba1C Pzd236 % HbA1c 70094-0 10.5 % 05/25/2017 %Hba1C Cpr766 Gluc Ave 255 mg/dL 05/25/2017 Microalbumin Mop284 MicroAlb 95.0 mg/dL 05/25/2017 Review of Systems System Result Effective Dates Constitutional No recent illness 2017 Constitutional No chills 10/10/2017 Constitutional No diaphoresis 10/10/2017 Constitutional No fever 10/10/2017 Ears/Nose/Throat/Neck No nasal discharge 10/10/2017 Ears/Nose/Throat/Neck No sore throat Ears/Nose/Throat/Neck No sinus congestion 10/10/2017 Cardiovascular No chest pain/pressure Cardiovascular edema 10/10/2017 Cardiovascular hypertension 10/10/2017 Respiratory No chest congestion 2017 Respiratory No cough 10/10/2017 Respiratory No dyspnea on exertion 2017 Gastrointestinal No abdominal pain 2017 Gastrointestinal No constipation 2017 Gastrointestinal No diarrhea 10/10/2017 Gastrointestinal No nausea 10/10/2017 Gastrointestinal No vomiting 10/10/2017 Dermatologic No rash 10/10/2017 Endocrine diabetes mellitus type 2 2017 Eyes No eye erythema 10/10/2017 Musculoskeletal arthralgia(s) 10/10/2017 Neurologic No alteration of consciousness 10/10/2017 Neurologic No mental status change 2017 Constitutional No recent illness 2016 Constitutional No chills 09/07/2017 Constitutional No diaphoresis 09/07/2017 Eyes No eye erythema 09/07/2017 Ears/Nose/Throat/Neck nasal allergies Ears/Nose/Throat/Neck nasal discharge Cardiovascular No chest pain/pressure Cardiovascular No edema 09/07/2017 Respiratory No chest congestion 2016 Gastrointestinal No abdominal pain 2016 Gastrointestinal No constipation 2016 Gastrointestinal No diarrhea 09/07/2017 Gastrointestinal No vomiting 09/07/2017 Musculoskeletal muscle weakness 2016 Dermatologic No rash 09/07/2017 Neurologic No alteration of consciousness 09/07/2017 Neurologic No mental status change 2016 Constitutional No fever 09/07/2017 Respiratory No cough 09/07/2017 Gastrointestinal No nausea 09/07/2017 Constitutional recent illness 08/30/2017 Constitutional No chills 08/30/2017 Constitutional No diaphoresis 08/30/2017 Constitutional fever 08/30/2017 Constitutional fatigue 08/30/2017 Constitutional malaise 08/30/2017 Eyes No eye erythema 08/30/2017 Ears/Nose/Throat/Neck nasal allergies Ears/Nose/Throat/Neck nasal discharge Cardiovascular No chest pain/pressure Cardiovascular No edema 08/30/2017 Respiratory No chest congestion 2016 Respiratory cough 08/30/2017 Respiratory dyspnea on exertion 2016 Gastrointestinal No abdominal pain 2016 Gastrointestinal No constipation 2016 Gastrointestinal No diarrhea 08/30/2017 Gastrointestinal No vomiting 08/30/2017 Gastrointestinal nausea 08/30/2017 Gastrointestinal No melena 08/30/2017 Gastrointestinal No hematochezia 2016 Musculoskeletal muscle weakness 2016 Dermatologic No rash 08/30/2017 Neurologic No alteration of consciousness 08/30/2017 Neurologic No mental status change 2016 Constitutional No recent illness 2016 Constitutional No anorexia 08/15/2017 Constitutional No night sweats 2016 Constitutional No chills 08/15/2017 Constitutional No diaphoresis 08/15/2017 Constitutional No fever 08/15/2017 Constitutional No insomnia 08/15/2017 Constitutional No malaise 08/15/2017 Ears/Nose/Throat/Neck No nasal discharge 08/15/2017 Ears/Nose/Throat/Neck No sore throat Ears/Nose/Throat/Neck No sinus congestion 08/15/2017 Cardiovascular No chest pain/pressure Cardiovascular No edema 08/15/2017 Cardiovascular No exercise intolerance Cardiovascular hypertension 08/15/2017 Respiratory No pleuritic pain 08/15/2017 Respiratory No chest congestion 2016 Respiratory No chest tightness 2016 Respiratory No cigarette smoking 2016 Respiratory No cough 08/15/2017 Respiratory No dyspnea on exertion 2016 Respiratory No snoring 08/15/2017 Respiratory No wheezing 08/15/2017 Gastrointestinal No abdominal pain 2016 Gastrointestinal No constipation 2016 Gastrointestinal No diarrhea 08/15/2017 Gastrointestinal No nausea 08/15/2017 Gastrointestinal No vomiting 08/15/2017 Genitourinary/Nephrology No dysuria 08/15 Genitourinary/Nephrology No nocturia Genitourinary/Nephrology No urinary incontinence 08/15/2017 Musculoskeletal No stiffness 08/15/2017 Dermatologic No rash 08/15/2017 Neurologic No dizziness 08/15/2017 Neurologic No headache 08/15/2017 Neurologic No syncope 08/15/2017 Psychiatric No anxiety 08/15/2017 Psychiatric No depression 08/15/2017 Endocrine diabetes mellitus type 2 2016 Constitutional No recent illness 2016 Constitutional No anorexia 06/15/2017 Constitutional No night sweats 2016 Constitutional No chills 06/15/2017 Constitutional No diaphoresis 06/15/2017 Constitutional No fever 06/15/2017 Constitutional No insomnia 06/15/2017 Constitutional No malaise 06/15/2017 Ears/Nose/Throat/Neck No nasal discharge 06/15/2017 Ears/Nose/Throat/Neck No sore throat Ears/Nose/Throat/Neck No sinus congestion 06/15/2017 Cardiovascular No chest pain/pressure Cardiovascular No edema 06/15/2017 Cardiovascular No exercise intolerance Cardiovascular hypertension 06/15/2017 Respiratory No pleuritic pain 06/15/2017 Respiratory No chest congestion 2016 Respiratory No chest tightness 2016 Respiratory No cigarette smoking 2016 Respiratory No cough 06/15/2017 Respiratory No dyspnea on exertion 2016 Respiratory No snoring 06/15/2017 Respiratory No wheezing 06/15/2017 Gastrointestinal No abdominal pain 2016 Gastrointestinal No constipation 2016 Gastrointestinal No diarrhea 06/15/2017 Gastrointestinal No nausea 06/15/2017 Gastrointestinal No vomiting 06/15/2017 Genitourinary/Nephrology No dysuria 06/15 Genitourinary/Nephrology No nocturia Genitourinary/Nephrology No urinary incontinence 06/15/2017 Dermatologic No rash 06/15/2017 Neurologic No dizziness 06/15/2017 Neurologic No headache 06/15/2017 Neurologic No syncope 06/15/2017 Psychiatric No anxiety 06/15/2017 Psychiatric No depression 06/15/2017 Musculoskeletal No stiffness 06/15/2017 Endocrine diabetes mellitus type 2 2016 Constitutional No recent illness 2016 Constitutional No anorexia 05/11/2017 Constitutional No night sweats 2016 Constitutional No chills 05/11/2017 Constitutional No diaphoresis 05/11/2017 Constitutional No fever 05/11/2017 Constitutional No insomnia 05/11/2017 Constitutional No malaise 05/11/2017 Eyes No eye discharge 05/11/2017 Eyes No eye erythema 05/11/2017 Ears/Nose/Throat/Neck No dizziness 2016 Ears/Nose/Throat/Neck No nasal discharge 05/11/2017 Ears/Nose/Throat/Neck No sore throat Ears/Nose/Throat/Neck No sinus congestion 05/11/2017 Cardiovascular No chest pain/pressure Cardiovascular No edema 05/11/2017 Cardiovascular No exercise intolerance Cardiovascular hypertension 05/11/2017 Respiratory No pleuritic pain 05/11/2017 Respiratory No chest congestion 2016 Respiratory No chest tightness 2016 Respiratory No cigarette smoking 2016 Respiratory No cough 05/11/2017 Respiratory No dyspnea on exertion 2016 Respiratory dyspnea 05/11/2017 Respiratory pedal edema 05/11/2017 Respiratory No snoring 05/11/2017 Respiratory No wheezing 05/11/2017 Gastrointestinal No abdominal pain 2016 Gastrointestinal No constipation 2016 Gastrointestinal No diarrhea 05/11/2017 Gastrointestinal No nausea 05/11/2017 Gastrointestinal No vomiting 05/11/2017 Genitourinary/Nephrology No dysuria 05/11 Genitourinary/Nephrology No nocturia Genitourinary/Nephrology No urinary incontinence 05/11/2017 Musculoskeletal back pain 05/11/2017 Musculoskeletal No joint complaint 2016 Dermatologic No rash 05/11/2017 Neurologic No dizziness 05/11/2017 Neurologic No headache 05/11/2017 Neurologic No neck pain 05/11/2017 Neurologic No syncope 05/11/2017 Psychiatric No anxiety 05/11/2017 Psychiatric No depression 05/11/2017 Constitutional No recent illness 2016 Constitutional No anorexia 01/05/2017 Constitutional No night sweats 2016 Constitutional No chills 01/05/2017 Constitutional No diaphoresis 01/05/2017 Constitutional No fever 01/05/2017 Constitutional No insomnia 01/05/2017 Constitutional No malaise 01/05/2017 Ears/Nose/Throat/Neck No nasal discharge 01/05/2017 Ears/Nose/Throat/Neck No sore throat Ears/Nose/Throat/Neck No sinus congestion 01/05/2017 Cardiovascular No chest pain/pressure Cardiovascular No edema 01/05/2017 Cardiovascular No exercise intolerance Cardiovascular hypertension 01/05/2017 Respiratory No pleuritic pain 01/05/2017 Respiratory No chest congestion 2016 Respiratory No chest tightness 2016 Respiratory No cigarette smoking 2016 Respiratory No cough 01/05/2017 Respiratory No dyspnea on exertion 2016 Respiratory No snoring 01/05/2017 Respiratory No wheezing 01/05/2017 Gastrointestinal No abdominal pain 2016 Gastrointestinal No constipation 2016 Gastrointestinal No diarrhea 01/05/2017 Gastrointestinal No nausea 01/05/2017 Gastrointestinal No vomiting 01/05/2017 Genitourinary/Nephrology No dysuria 01/05 Genitourinary/Nephrology No nocturia Genitourinary/Nephrology No urinary incontinence 01/05/2017 Dermatologic No rash 01/05/2017 Neurologic No headache 01/05/2017 Neurologic No syncope 01/05/2017 Psychiatric No anxiety 01/05/2017 Psychiatric No depression 01/05/2017 Neurologic No dizziness 01/05/2017 Constitutional No recent illness 2016 Constitutional No anorexia 09/20/2016 Constitutional No night sweats 2016 Constitutional No chills 09/20/2016 Constitutional No diaphoresis 09/20/2016 Constitutional No fever 09/20/2016 Constitutional No insomnia 09/20/2016 Constitutional No malaise 09/20/2016 Eyes No eye discharge 09/20/2016 Eyes No eye erythema 09/20/2016 Ears/Nose/Throat/Neck No dizziness 2016 Ears/Nose/Throat/Neck No nasal discharge 09/20/2016 Ears/Nose/Throat/Neck No sore throat 11/2016 Ears/Nose/Throat/Neck No sinus congestion 09/20/2016 Cardiovascular No chest pain/pressure 11/2016 Cardiovascular No edema 09/20/2016 Respiratory No pleuritic pain 09/20/2016 Respiratory No chest congestion 2016 Respiratory No chest tightness 2016 Respiratory No cigarette smoking 2016 Respiratory No cough 09/20/2016 Respiratory No dyspnea on exertion 2016 Respiratory dyspnea 09/20/2016 Respiratory pedal edema 09/20/2016 Respiratory No snoring 09/20/2016 Respiratory No wheezing 09/20/2016 Gastrointestinal No abdominal pain 2016 Gastrointestinal No constipation 2016 Gastrointestinal No diarrhea 09/20/2016 Gastrointestinal No nausea 09/20/2016 Gastrointestinal No vomiting 09/20/2016 Genitourinary/Nephrology No dysuria 09/20 Genitourinary/Nephrology No nocturia 11/2016 Genitourinary/Nephrology No urinary incontinence 09/20/2016 Musculoskeletal back pain 09/20/2016 Musculoskeletal No joint complaint 2016 Dermatologic No rash 09/20/2016 Neurologic No dizziness 09/20/2016 Neurologic No headache 09/20/2016 Neurologic No neck pain 09/20/2016 Neurologic No syncope 09/20/2016 Psychiatric No anxiety 09/20/2016 Psychiatric No depression 09/20/2016 Constitutional No recent illness 2015 Constitutional No anorexia 09/01/2016 Constitutional No night sweats 2015 Constitutional No chills 09/01/2016 Constitutional No diaphoresis 09/01/2016 Constitutional No fever 09/01/2016 Constitutional No insomnia 09/01/2016 Constitutional No malaise 09/01/2016 Eyes No eye discharge 09/01/2016 Eyes No eye erythema 09/01/2016 Ears/Nose/Throat/Neck No dizziness 2015 Ears/Nose/Throat/Neck No nasal discharge 09/01/2016 Ears/Nose/Throat/Neck No sore throat Ears/Nose/Throat/Neck No sinus congestion 09/01/2016 Cardiovascular No chest pain/pressure Cardiovascular No edema 09/01/2016 Cardiovascular No exercise intolerance Cardiovascular hypertension 09/01/2016 Respiratory No pleuritic pain 09/01/2016 Respiratory No chest congestion 2015 Respiratory No chest tightness 2015 Respiratory No cigarette smoking 2015 Respiratory No cough 09/01/2016 Respiratory No dyspnea on exertion 2015 Respiratory No snoring 09/01/2016 Respiratory No wheezing 09/01/2016 Gastrointestinal No abdominal pain 2015 Gastrointestinal No constipation 2015 Gastrointestinal No diarrhea 09/01/2016 Gastrointestinal No nausea 09/01/2016 Gastrointestinal No vomiting 09/01/2016 Genitourinary/Nephrology No dysuria 09/01 Genitourinary/Nephrology No nocturia Genitourinary/Nephrology No urinary incontinence 09/01/2016 Musculoskeletal No joint complaint 2015 Dermatologic No rash 09/01/2016 Neurologic No dizziness 09/01/2016 Neurologic No headache 09/01/2016 Neurologic No neck pain 09/01/2016 Neurologic No syncope 09/01/2016 Psychiatric No anxiety 09/01/2016 Psychiatric No depression 09/01/2016 Musculoskeletal back pain 09/01/2016 Constitutional No recent illness 2015 Constitutional No anorexia 06/02/2016 Constitutional No night sweats 2015 Constitutional No chills 06/02/2016 Constitutional No diaphoresis 06/02/2016 Constitutional No fever 06/02/2016 Constitutional No insomnia 06/02/2016 Constitutional No malaise 06/02/2016 Eyes No eye discharge 06/02/2016 Eyes No eye erythema 06/02/2016 Ears/Nose/Throat/Neck No dizziness 2015 Ears/Nose/Throat/Neck No nasal discharge 06/02/2016 Ears/Nose/Throat/Neck No sore throat Ears/Nose/Throat/Neck No sinus congestion 06/02/2016 Cardiovascular No chest pain/pressure Cardiovascular No edema 06/02/2016 Respiratory No pleuritic pain 06/02/2016 Respiratory No chest congestion 2015 Respiratory No chest tightness 2015 Respiratory No cigarette smoking 2015 Respiratory No cough 06/02/2016 Respiratory No dyspnea on exertion 2015 Respiratory dyspnea 06/02/2016 Respiratory pedal edema 06/02/2016 Respiratory No snoring 06/02/2016 Respiratory No wheezing 06/02/2016 Gastrointestinal No abdominal pain 2015 Gastrointestinal No constipation 2015 Gastrointestinal No diarrhea 06/02/2016 Gastrointestinal No nausea 06/02/2016 Gastrointestinal No vomiting 06/02/2016 Genitourinary/Nephrology No dysuria 06/02 Genitourinary/Nephrology No nocturia Genitourinary/Nephrology No urinary incontinence 06/02/2016 Musculoskeletal back pain 06/02/2016 Musculoskeletal No joint complaint 2015 Dermatologic No rash 06/02/2016 Neurologic No dizziness 06/02/2016 Neurologic No headache 06/02/2016 Neurologic No neck pain 06/02/2016 Neurologic No syncope 06/02/2016 Psychiatric No anxiety 06/02/2016 Psychiatric No depression 06/02/2016 Cardiovascular hypertension 06/02/2016 Cardiovascular No exercise intolerance Constitutional No recent illness 2015 Constitutional No fever 03/25/2016 Eyes No eye discharge 03/25/2016 Eyes No eye erythema 03/25/2016 Ears/Nose/Throat/Neck dizziness 2015 Ears/Nose/Throat/Neck No sore throat 04/2016 Ears/Nose/Throat/Neck No sinus congestion 03/25/2016 Cardiovascular No chest pain/pressure 04/2016 Respiratory No cough 03/25/2016 Respiratory dyspnea 03/25/2016 Gastrointestinal No abdominal pain 2015 Dermatologic No rash 03/25/2016 Psychiatric No anxiety 03/25/2016 Psychiatric No depression 03/25/2016 Constitutional fatigue 03/25/2016 Ears/Nose/Throat/Neck No nasal discharge 03/25/2016 Ears/Nose/Throat/Neck No nasal allergies 03/25/2016 Cardiovascular No dyspnea 03/25/2016 Neurologic No alteration of consciousness 03/25/2016 Neurologic No mental status change 2015 Cardiovascular near-syncope/dizziness 04/2016 Constitutional No recent illness 2015 Constitutional No anorexia 01/26/2016 Constitutional No night sweats 2015 Constitutional No chills 01/26/2016 Constitutional No diaphoresis 01/26/2016 Constitutional No fever 01/26/2016 Constitutional No insomnia 01/26/2016 Constitutional No malaise 01/26/2016 Eyes No eye discharge 01/26/2016 Eyes No eye erythema 01/26/2016 Ears/Nose/Throat/Neck No dizziness 2015 Ears/Nose/Throat/Neck No nasal discharge 01/26/2016 Ears/Nose/Throat/Neck No sore throat 06/2016 Ears/Nose/Throat/Neck No sinus congestion 01/26/2016 Cardiovascular No chest pain/pressure 06/2016 Cardiovascular No edema 01/26/2016 Respiratory No pleuritic pain 01/26/2016 Respiratory No chest congestion 2015 Respiratory No chest tightness 2015 Respiratory No cigarette smoking 2015 Respiratory No cough 01/26/2016 Respiratory No dyspnea on exertion 2015 Respiratory dyspnea 01/26/2016 Respiratory pedal edema 01/26/2016 Respiratory No snoring 01/26/2016 Respiratory No wheezing 01/26/2016 Gastrointestinal No abdominal pain 2015 Gastrointestinal No constipation 2015 Gastrointestinal No diarrhea 01/26/2016 Gastrointestinal No nausea 01/26/2016 Gastrointestinal No vomiting 01/26/2016 Genitourinary/Nephrology No dysuria 01/25 Genitourinary/Nephrology No nocturia 06/2016 Genitourinary/Nephrology No urinary incontinence 01/26/2016 Musculoskeletal back pain 01/26/2016 Musculoskeletal No joint complaint 2015 Dermatologic No rash 01/26/2016 Neurologic No dizziness 01/26/2016 Neurologic No headache 01/26/2016 Neurologic No neck pain 01/26/2016 Neurologic No syncope 01/26/2016 Psychiatric No anxiety 01/26/2016 Psychiatric No depression 01/26/2016 Constitutional No recent illness 2015 Constitutional No anorexia 10/29/2015 Constitutional No night sweats 2015 Constitutional No chills 10/29/2015 Constitutional No diaphoresis 10/29/2015 Constitutional No fever 10/29/2015 Constitutional No insomnia 10/29/2015 Constitutional No malaise 10/29/2015 Eyes No eye discharge 10/29/2015 Eyes No eye erythema 10/29/2015 Ears/Nose/Throat/Neck No dizziness 2015 Ears/Nose/Throat/Neck No nasal discharge 10/29/2015 Ears/Nose/Throat/Neck No sore throat 07/2016 Ears/Nose/Throat/Neck No sinus congestion 10/29/2015 Cardiovascular No chest pain/pressure 07/2016 Cardiovascular No edema 10/29/2015 Respiratory No pleuritic pain 10/29/2015 Respiratory No chest congestion 2015 Respiratory No chest tightness 2015 Respiratory No cigarette smoking 2015 Respiratory No cough 10/29/2015 Respiratory No dyspnea on exertion 2015 Respiratory dyspnea 10/29/2015 Respiratory pedal edema 10/29/2015 Respiratory No snoring 10/29/2015 Respiratory No wheezing 10/29/2015 Gastrointestinal No abdominal pain 2015 Gastrointestinal No constipation 2015 Gastrointestinal No diarrhea 10/29/2015 Gastrointestinal No nausea 10/29/2015 Gastrointestinal No vomiting 10/29/2015 Genitourinary/Nephrology No dysuria 10/29 Genitourinary/Nephrology No nocturia 07/2016 Genitourinary/Nephrology No urinary incontinence 10/29/2015 Musculoskeletal back pain 10/29/2015 Musculoskeletal No joint complaint 2015 Dermatologic No rash 10/29/2015 Neurologic No dizziness 10/29/2015 Neurologic No headache 10/29/2015 Neurologic No neck pain 10/29/2015 Neurologic No syncope 10/29/2015 Psychiatric No anxiety 10/29/2015 Psychiatric No depression 10/29/2015 Constitutional No recent illness 2014 Constitutional No chills 07/21/2015 Constitutional No fever 07/21/2015 Constitutional No insomnia 07/21/2015 Constitutional No malaise 07/21/2015 Cardiovascular No edema 07/21/2015 Cardiovascular fatigue 07/21/2015 Respiratory No chest tightness 2014 Respiratory No cigarette smoking 2014 Respiratory No cough 07/21/2015 Respiratory dyspnea 07/21/2015 Respiratory pedal edema 07/21/2015 Respiratory No snoring 07/21/2015 Respiratory No wheezing 07/21/2015 Psychiatric No anxiety 07/21/2015 Psychiatric No depression 07/21/2015 Constitutional No anorexia 07/21/2015 Constitutional No night sweats 2014 Constitutional No diaphoresis 07/21/2015 Eyes No eye discharge 07/21/2015 Eyes No eye erythema 07/21/2015 Ears/Nose/Throat/Neck No dizziness 2014 Ears/Nose/Throat/Neck No nasal discharge 07/21/2015 Ears/Nose/Throat/Neck No sore throat 11/2014 Ears/Nose/Throat/Neck No sinus congestion 07/21/2015 Cardiovascular No chest pain/pressure 11/2014 Respiratory No pleuritic pain 07/21/2015 Respiratory No chest congestion 2014 Respiratory No dyspnea on exertion 2014 Gastrointestinal No abdominal pain 2014 Gastrointestinal No constipation 2014 Gastrointestinal No diarrhea 07/21/2015 Gastrointestinal No nausea 07/21/2015 Gastrointestinal No vomiting 07/21/2015 Genitourinary/Nephrology No dysuria 07/21 Genitourinary/Nephrology No nocturia 11/2014 Genitourinary/Nephrology No urinary incontinence 07/21/2015 Musculoskeletal back pain 07/21/2015 Musculoskeletal No joint complaint 2014 Dermatologic No rash 07/21/2015 Neurologic No dizziness 07/21/2015 Neurologic No headache 07/21/2015 Neurologic No neck pain 07/21/2015 Neurologic No syncope 07/21/2015 Constitutional No recent illness 2014 Constitutional No chills 07/08/2015 Constitutional fatigue 07/08/2015 Constitutional No fever 07/08/2015 Constitutional No insomnia 07/08/2015 Constitutional No malaise 07/08/2015 Cardiovascular edema 07/08/2015 Cardiovascular fatigue 07/08/2015 Respiratory No chest tightness 2014 Respiratory No cigarette smoking 2014 Respiratory No cough 07/08/2015 Respiratory dyspnea 07/08/2015 Respiratory pedal edema 07/08/2015 Respiratory No snoring 07/08/2015 Respiratory No wheezing 07/08/2015 Psychiatric No anxiety 07/08/2015 Psychiatric No depression 07/08/2015 Constitutional No fever 05/04/2015 Constitutional No chills 05/04/2015 Cardiovascular No chest pain/pressure Cardiovascular No dyspnea 05/04/2015 Cardiovascular No edema 05/04/2015 Respiratory No pleuritic pain 05/04/2015 Respiratory No chest congestion 2014 Respiratory No chest tightness 2014 Respiratory No cough 05/04/2015 Respiratory No dyspnea on exertion 2014 Gastrointestinal No abdominal pain 2014 Gastrointestinal No constipation 2014 Gastrointestinal No diarrhea 05/04/2015 Musculoskeletal back pain 05/04/2015 Dermatologic No rash 05/04/2015 Constitutional No anorexia 05/04/2015 Constitutional No diaphoresis 05/04/2015 Constitutional No fatigue 05/04/2015 Constitutional No night sweats 2014 Constitutional No recent illness 2014 Eyes No eye discharge 05/04/2015 Eyes No eye erythema 05/04/2015 Ears/Nose/Throat/Neck No dizziness 2014 Ears/Nose/Throat/Neck No nasal discharge 05/04/2015 Ears/Nose/Throat/Neck No sinus congestion 05/04/2015 Ears/Nose/Throat/Neck No sore throat Gastrointestinal No nausea 05/04/2015 Gastrointestinal No vomiting 05/04/2015 Musculoskeletal No joint complaint 2014 Psychiatric No anxiety 05/04/2015 Psychiatric No depression 05/04/2015 Neurologic No dizziness 05/04/2015 Neurologic No headache 05/04/2015 Neurologic No neck pain 05/04/2015 Neurologic No syncope 05/04/2015 Genitourinary/Nephrology No dysuria 05/04 Genitourinary/Nephrology No nocturia Genitourinary/Nephrology No urinary incontinence 05/04/2015 Physical Exam Exam Name System Name Item Name Status Result Effective Dates Notes Full Exam - General 1994 Constitutional general appearance Hygiene/Attention to Grooming: good hygiene 10/10/2017 None Full Exam - General 1994 Eyes conjunctiva /eyelids Overall: conjunctiva clear 10/10/2017 None Full Exam - General 1994 Eyes conjunctiva /eyelids Overall: cornea clear 10/10/2017 None Full Exam - General 1994 Eyes conjunctiva /eyelids Overall: eyelids normal 10/10/2017 None Full Exam - General 1994 Eyes pupils and irises Overall: pupils equal, round, reactive to light and accomodation 10/10/2017 None Full Exam - General 1994 Ears/Nose/Throat otoscopic exam Overall: external auditory canals clear 10/10/2017 None Full Exam - General 1994 Ears/Nose/Throat otoscopic exam Overall: tympanic membranes clear 10/10/2017 None Full Exam - General 1994 Ears/Nose/Throat lips/teeth/gingiva Overall: benign lips 10/10/2017 None Full Exam - General 1994 Ears/Nose/Throat oral cavity/pharynx/larynx Overall: oral mucosa clear 10/10/2017 None Full Exam - General 1994 Ears/Nose/Throat oral cavity/pharynx/larynx Overall: oropharyngeal mucosa clear 10/10/2017 None Full Exam - General 1994 Respiratory auscultation Overall: breath sounds clear bilaterally 10/10/2017 None Full Exam - General 1994 Respiratory respiratory effort/rhythm Overall: no retractions 10/10/2017 None Full Exam - General 1994 Respiratory respiratory effort/rhythm Overall: normal rate 10/10/2017 None Full Exam - General 1994 Cardiovascular auscultation of heart Overall: regular rate 10/10/2017 None Full Exam - General 1994 Cardiovascular auscultation of heart Overall: normal heart sounds 10/10/2017 None Full Exam - General 1994 Abdomen abdominal exam Overall: no tenderness 10/10/2017 None Full Exam - General 1994 Abdomen abdominal exam Overall: normal bowel sounds 10/10/2017 None Full Exam - General 1994 Lymphatic neck nodes Overall: anterior cervical chain benign 10/10/2017 None Full Exam - General 1994 Lymphatic neck nodes Overall: posterior cervical chain benign 10/10/2017 None Full Exam - General 1994 Neurologic cranial nerves Overall: crainial nerves 2 - 12 grossly intact 10/10/2017 None Full Exam - General 1994 Psychiatric orientation/consciousness Overall: oriented to person, place and time 10/10/2017 None Full Exam - General 1994 Psychiatric mood and affect Overall: normal mood and affect 10/10/2017 None Full Exam - General 1994 Constitutional general appearance Overall: well developed 10/10/2017 None Full Exam - General 1994 Constitutional general appearance Overall: in no acute distress 10/10/2017 None Full Exam - General 1994 Constitutional general appearance Overall: well nourished 10/10/2017 None Full Exam - General 1994 Constitutional general appearance Overall: well developed 09/07/2017 None Full Exam - General 1994 Constitutional general appearance Overall: well nourished 09/07/2017 None Full Exam - General 1994 Eyes conjunctiva /eyelids Overall: conjunctiva clear 09/07/2017 None Full Exam - General 1994 Eyes conjunctiva /eyelids Overall: cornea clear 09/07/2017 None Full Exam - General 1994 Eyes conjunctiva /eyelids Overall: eyelids normal 09/07/2017 None Full Exam - General 1994 Ears/Nose/Throat lips/teeth/gingiva Overall: benign lips 09/07/2017 None Full Exam - General 1994 Ears/Nose/Throat oral cavity/pharynx/larynx Overall: oral mucosa clear 09/07/2017 None Full Exam - General 1994 Respiratory auscultation Diffuse: diminished 09/07/2017 None Full Exam - General 1994 Respiratory respiratory effort/rhythm Overall: no retractions 09/07/2017 None Full Exam - General 1994 Respiratory respiratory effort/rhythm Overall: normal rate 09/07/2017 None Full Exam - General 1994 Cardiovascular extremities Overall: no clubbing 09/07/2017 None Full Exam - General 1994 Cardiovascular auscultation of heart Rate: regular rate 09/07/2017 None Full Exam - General 1994 Cardiovascular auscultation of heart Rhythm: regular rhythm 09/07/2017 None Full Exam - General 1994 Abdomen abdominal exam Overall: no tenderness 09/07/2017 None Full Exam - General 1994 Abdomen abdominal exam Overall: normal bowel sounds 09/07/2017 None Full Exam - General 1994 Musculoskeletal head and neck Overall: head atraumatic 09/07/2017 None Full Exam - General 1994 Neurologic gait Conventional walking: unsteady 09/07/2017 None Full Exam - General 1994 Neurologic cranial nerves Overall: crainial nerves 2 - 12 grossly intact 09/07/2017 None Full Exam - General 1994 Psychiatric orientation/consciousness Overall: oriented to person, place and time 09/07/2017 None Full Exam - General 1994 Psychiatric mood and affect Overall: normal mood and affect 09/07/2017 None Full Exam - General 1994 Constitutional general appearance Overall: in no acute distress 09/07/2017 None Full Exam - General 1994 Constitutional general appearance Overall: well developed 08/30/2017 None Full Exam - General 1994 Constitutional general appearance Overall: well nourished 08/30/2017 None Full Exam - General 1994 Constitutional general appearance Evidence of Distress: anxious 08/30/2017 None Full Exam - General 1994 Eyes conjunctiva /eyelids Overall: eyelids normal 08/30/2017 None Full Exam - General 1994 Eyes conjunctiva /eyelids Overall: cornea clear 08/30/2017 None Full Exam - General 1994 Eyes conjunctiva /eyelids Overall: conjunctiva clear 08/30/2017 None Full Exam - General 1994 Ears/Nose/Throat oral cavity/pharynx/larynx Overall: oral mucosa clear 08/30/2017 None Full Exam - General 1994 Ears/Nose/Throat lips/teeth/gingiva Overall: benign lips 08/30/2017 None Full Exam - General 1994 Respiratory respiratory effort/rhythm Overall: normal rate 08/30/2017 None Full Exam - General 1994 Respiratory respiratory effort/rhythm Overall: no retractions 08/30/2017 None Full Exam - General 1994 Respiratory auscultation Diffuse: diminished 08/30/2017 None Full Exam - General 1994 Cardiovascular auscultation of heart Rate: regular rate 08/30/2017 None Full Exam - General 1994 Cardiovascular auscultation of heart Rhythm: regular rhythm 08/30/2017 None Full Exam - General 1994 Cardiovascular extremities Overall: no clubbing 08/30/2017 None Full Exam - General 1994 Abdomen abdominal exam Overall: normal bowel sounds 08/30/2017 None Full Exam - General 1994 Abdomen abdominal exam Overall: no tenderness 08/30/2017 None Full Exam - General 1994 Musculoskeletal head and neck Overall: head atraumatic 08/30/2017 None Full Exam - General 1994 Neurologic cranial nerves Overall: crainial nerves 2 - 12 grossly intact 08/30/2017 None Full Exam - General 1994 Psychiatric orientation/consciousness Overall: oriented to person, place and time 08/30/2017 None Full Exam - General 1994 Psychiatric mood and affect Overall: normal mood and affect 08/30/2017 None Full Exam - General 1994 Neurologic gait Conventional walking: unsteady 08/30/2017 None Full Exam - General 1994 Constitutional general appearance Assistive Device: walker 08/30/2017 None Full Exam - General 1994 Constitutional general appearance Development: well developed 08/15/2017 None Full Exam - General 1994 Constitutional general appearance Development: appears stated age 1108/15/2017 None Full Exam - General 1994 Constitutional general appearance Hygiene/Attention to Grooming: good hygiene 08/15/2017 None Full Exam - General 1994 Eyes conjunctiva /eyelids Overall: conjunctiva clear 08/15/2017 None Full Exam - General 1994 Eyes conjunctiva /eyelids Overall: cornea clear 08/15/2017 None Full Exam - General 1994 Eyes conjunctiva /eyelids Overall: eyelids normal 08/15/2017 None Full Exam - General 1994 Eyes pupils and irises Overall: pupils equal, round, reactive to light and accomodation 08/15/2017 None Full Exam - General 1994 Ears/Nose/Throat otoscopic exam Overall: external auditory canals clear 08/15/2017 None Full Exam - General 1994 Ears/Nose/Throat otoscopic exam Overall: tympanic membranes clear 08/15/2017 None Full Exam - General 1994 Ears/Nose/Throat lips/teeth/gingiva Overall: benign lips 08/15/2017 None Full Exam - General 1994 Ears/Nose/Throat lips/teeth/gingiva Overall: normal dentition 08/15/2017 None Full Exam - General 1994 Ears/Nose/Throat oral cavity/pharynx/larynx Overall: oral mucosa clear 08/15/2017 None Full Exam - General 1994 Ears/Nose/Throat oral cavity/pharynx/larynx Overall: oropharyngeal mucosa clear 08/15/2017 None Full Exam - General 1994 Ears/Nose/Throat oral cavity/pharynx/larynx Overall: hypopharynx benign 08/15/2017 None Full Exam - General 1994 Ears/Nose/Throat oral cavity/pharynx/larynx Overall: no masses 08/15/2017 None Full Exam - General 1994 Respiratory auscultation Overall: breath sounds clear bilaterally 08/15/2017 None Full Exam - General 1994 Respiratory respiratory effort/rhythm Overall: no retractions 08/15/2017 None Full Exam - General 1994 Respiratory respiratory effort/rhythm Overall: normal rate 08/15/2017 None Full Exam - General 1994 Cardiovascular extremities Overall: no clubbing 08/15/2017 None Full Exam - General 1994 Cardiovascular auscultation of heart Overall: regular rate 08/15/2017 None Full Exam - General 1994 Cardiovascular auscultation of heart Overall: normal heart sounds 08/15/2017 None Full Exam - General 1994 Abdomen abdominal exam Overall: no tenderness 08/15/2017 None Full Exam - General 1994 Abdomen abdominal exam Overall: normal bowel sounds 08/15/2017 None Full Exam - General 1994 Lymphatic neck nodes Overall: anterior cervical chain benign 08/15/2017 None Full Exam - General 1994 Lymphatic neck nodes Overall: posterior cervical chain benign 08/15/2017 None Full Exam - General 1994 Integument inspection of skin Overall: few scattered moles, no gross abnormalities 08/15/2017 None Full Exam - General 1994 Neurologic deep tendon reflexes Overall: deep tendon reflexes intact 08/15/2017 None Full Exam - General 1994 Neurologic cranial nerves Overall: crainial nerves 2 - 12 grossly intact 08/15/2017 None Full Exam - General 1994 Psychiatric orientation/consciousness Overall: oriented to person, place and time 08/15/2017 None Full Exam - General 1994 Psychiatric mood and affect Overall: normal mood and affect 08/15/2017 None Full Exam - General 1994 Constitutional general appearance Development: well developed 06/15/2017 None Full Exam - General 1994 Constitutional general appearance Development: appears stated age 0906/15/2017 None Full Exam - General 1994 Constitutional general appearance Hygiene/Attention to Grooming: good hygiene 06/15/2017 None Full Exam - General 1994 Eyes conjunctiva /eyelids Overall: conjunctiva clear 06/15/2017 None Full Exam - General 1994 Eyes conjunctiva /eyelids Overall: cornea clear 06/15/2017 None Full Exam - General 1994 Eyes conjunctiva /eyelids Overall: eyelids normal 06/15/2017 None Full Exam - General 1994 Eyes pupils and irises Overall: pupils equal, round, reactive to light and accomodation 06/15/2017 None Full Exam - General 1994 Ears/Nose/Throat otoscopic exam Overall: external auditory canals clear 06/15/2017 None Full Exam - General 1994 Ears/Nose/Throat otoscopic exam Overall: tympanic membranes clear 06/15/2017 None Full Exam - General 1994 Ears/Nose/Throat lips/teeth/gingiva Overall: benign lips 06/15/2017 None Full Exam - General 1994 Ears/Nose/Throat lips/teeth/gingiva Overall: normal dentition 06/15/2017 None Full Exam - General 1994 Ears/Nose/Throat oral cavity/pharynx/larynx Overall: oral mucosa clear 06/15/2017 None Full Exam - General 1995 Ears/Nose/Throat oral cavity/pharynx/larynx Overall: oropharyngeal mucosa clear 06/15/2017 None Full Exam - General 1995 Ears/Nose/Throat oral cavity/pharynx/larynx Overall: hypopharynx benign 06/15/2017 None Full Exam - General 1994 Ears/Nose/Throat oral cavity/pharynx/larynx Overall: no masses 06/15/2017 None Full Exam - General 1994 Respiratory auscultation Overall: breath sounds clear bilaterally 06/15/2017 None Full Exam - General 1994 Respiratory respiratory effort/rhythm Overall: no retractions 06/15/2017 None Full Exam - General 1994 Respiratory respiratory effort/rhythm Overall: normal rate 06/15/2017 None Full Exam - General 1994 Cardiovascular extremities Overall: no clubbing 06/15/2017 None Full Exam - General 1994 Cardiovascular auscultation of heart Overall: regular rate 06/15/2017 None Full Exam - General 1994 Cardiovascular auscultation of heart Overall: normal heart sounds 06/15/2017 None Full Exam - General 1994 Abdomen abdominal exam Overall: no tenderness 06/15/2017 None Full Exam - General 1994 Abdomen abdominal exam Overall: normal bowel sounds 06/15/2017 None Full Exam - General 1994 Lymphatic neck nodes Overall: anterior cervical chain benign 06/15/2017 None Full Exam - General 1994 Lymphatic neck nodes Overall: posterior cervical chain benign 06/15/2017 None Full Exam - General 1994 Integument inspection of skin Overall: few scattered moles, no gross abnormalities 06/15/2017 None Full Exam - General 1994 Neurologic deep tendon reflexes Overall: deep tendon reflexes intact 06/15/2017 None Full Exam - General 1994 Neurologic cranial nerves Overall: crainial nerves 2 - 12 grossly intact 06/15/2017 None Full Exam - General 1994 Psychiatric orientation/consciousness Overall: oriented to person, place and time 06/15/2017 None Full Exam - General 1994 Psychiatric mood and affect Overall: normal mood and affect 06/15/2017 None Full Exam - General 1994 Constitutional general appearance Development: well developed 05/11/2017 None Full Exam - General 1994 Constitutional general appearance Development: appears stated age 0805/11/2017 None Full Exam - General 1994 Constitutional general appearance Hygiene/Attention to Grooming: good hygiene 05/11/2017 None Full Exam - General 1994 Eyes conjunctiva /eyelids Overall: conjunctiva clear 05/11/2017 None Full Exam - General 1994 Eyes conjunctiva /eyelids Overall: cornea clear 05/11/2017 None Full Exam - General 1994 Eyes conjunctiva /eyelids Overall: eyelids normal 05/11/2017 None Full Exam - General 1994 Eyes pupils and irises Overall: pupils equal, round, reactive to light and accomodation 05/11/2017 None Full Exam - General 1994 Ears/Nose/Throat otoscopic exam Overall: external auditory canals clear 05/11/2017 None Full Exam - General 1994 Ears/Nose/Throat otoscopic exam Overall: tympanic membranes clear 05/11/2017 None Full Exam - General 1994 Ears/Nose/Throat lips/teeth/gingiva Overall: benign lips 05/11/2017 None Full Exam - General 1994 Ears/Nose/Throat lips/teeth/gingiva Overall: normal dentition 05/11/2017 None Full Exam - General 1994 Ears/Nose/Throat oral cavity/pharynx/larynx Overall: oral mucosa clear 05/11/2017 None Full Exam - General 1994 Ears/Nose/Throat oral cavity/pharynx/larynx Overall: oropharyngeal mucosa clear 05/11/2017 None Full Exam - General 1994 Ears/Nose/Throat oral cavity/pharynx/larynx Overall: hypopharynx benign 05/11/2017 None Full Exam - General 1994 Ears/Nose/Throat oral cavity/pharynx/larynx Overall: no masses 05/11/2017 None Full Exam - General 1994 Respiratory auscultation Overall: breath sounds clear bilaterally 05/11/2017 None Full Exam - General 1994 Respiratory respiratory effort/rhythm Overall: no retractions 05/11/2017 None Full Exam - General 1994 Respiratory respiratory effort/rhythm Overall: normal rate 05/11/2017 None Full Exam - General 1994 Cardiovascular extremities Overall: no clubbing 05/11/2017 None Full Exam - General 1994 Cardiovascular auscultation of heart Overall: regular rate 05/11/2017 None Full Exam - General 1994 Cardiovascular auscultation of heart Overall: normal heart sounds 05/11/2017 None Full Exam - General 1994 Abdomen abdominal exam Overall: no tenderness 05/11/2017 None Full Exam - General 1994 Abdomen abdominal exam Overall: normal bowel sounds 05/11/2017 None Full Exam - General 1994 Lymphatic neck nodes Overall: anterior cervical chain benign 05/11/2017 None Full Exam - General 1994 Lymphatic neck nodes Overall: posterior cervical chain benign 05/11/2017 None Full Exam - General 1994 Integument inspection of skin Overall: few scattered moles, no gross abnormalities 05/11/2017 None Full Exam - General 1994 Neurologic deep tendon reflexes Overall: deep tendon reflexes intact 05/11/2017 None Full Exam - General 1994 Neurologic cranial nerves Overall: crainial nerves 2 - 12 grossly intact 05/11/2017 None Full Exam - General 1994 Psychiatric orientation/consciousness Overall: oriented to person, place and time 05/11/2017 None Full Exam - General 1994 Psychiatric mood and affect Overall: normal mood and affect 05/11/2017 None Full Exam - General 1994 Constitutional general appearance Development: well developed 01/05/2017 None Full Exam - General 1994 Constitutional general appearance Development: appears stated age 0401/05/2017 None Full Exam - General 1994 Constitutional general appearance Hygiene/Attention to Grooming: good hygiene 01/05/2017 None Full Exam - General 1994 Eyes conjunctiva /eyelids Overall: conjunctiva clear 01/05/2017 None Full Exam - General 1994 Eyes conjunctiva /eyelids Overall: cornea clear 01/05/2017 None Full Exam - General 1994 Eyes conjunctiva /eyelids Overall: eyelids normal 01/05/2017 None Full Exam - General 1994 Eyes pupils and irises Overall: pupils equal, round, reactive to light and accomodation 01/05/2017 None Full Exam - General 1994 Ears/Nose/Throat otoscopic exam Overall: external auditory canals clear 01/05/2017 None Full Exam - General 1994 Ears/Nose/Throat otoscopic exam Overall: tympanic membranes clear 01/05/2017 None Full Exam - General 1994 Ears/Nose/Throat lips/teeth/gingiva Overall: benign lips 01/05/2017 None Full Exam - General 1994 Ears/Nose/Throat lips/teeth/gingiva Overall: normal dentition 01/05/2017 None Full Exam - General 1994 Ears/Nose/Throat oral cavity/pharynx/larynx Overall: oral mucosa clear 01/05/2017 None Full Exam - General 1994 Ears/Nose/Throat oral cavity/pharynx/larynx Overall: oropharyngeal mucosa clear 01/05/2017 None Full Exam - General 1994 Ears/Nose/Throat oral cavity/pharynx/larynx Overall: hypopharynx benign 01/05/2017 None Full Exam - General 1994 Ears/Nose/Throat oral cavity/pharynx/larynx Overall: no masses 01/05/2017 None Full Exam - General 1994 Respiratory auscultation Overall: breath sounds clear bilaterally 01/05/2017 None Full Exam - General 1994 Respiratory respiratory effort/rhythm Overall: no retractions 01/05/2017 None Full Exam - General 1994 Respiratory respiratory effort/rhythm Overall: normal rate 01/05/2017 None Full Exam - General 1994 Cardiovascular extremities Overall: no clubbing 01/05/2017 None Full Exam - General 1994 Cardiovascular auscultation of heart Overall: regular rate 01/05/2017 None Full Exam - General 1994 Cardiovascular auscultation of heart Overall: normal heart sounds 01/05/2017 None Full Exam - General 1994 Abdomen abdominal exam Overall: no tenderness 01/05/2017 None Full Exam - General 1994 Abdomen abdominal exam Overall: normal bowel sounds 01/05/2017 None Full Exam - General 1994 Lymphatic neck nodes Overall: anterior cervical chain benign 01/05/2017 None Full Exam - General 1994 Lymphatic neck nodes Overall: posterior cervical chain benign 01/05/2017 None Full Exam - General 1994 Integument inspection of skin Overall: few scattered moles, no gross abnormalities 01/05/2017 None Full Exam - General 1994 Neurologic deep tendon reflexes Overall: deep tendon reflexes intact 01/05/2017 None Full Exam - General 1994 Neurologic cranial nerves Overall: crainial nerves 2 - 12 grossly intact 01/05/2017 None Full Exam - General 1994 Psychiatric orientation/consciousness Overall: oriented to person, place and time 01/05/2017 None Full Exam - General 1994 Psychiatric mood and affect Overall: normal mood and affect 01/05/2017 None Full Exam - General 1994 Constitutional general appearance Development: well developed 09/20/2016 None Full Exam - General 1994 Constitutional general appearance Development: appears stated age 0109/20/2016 None Full Exam - General 1994 Constitutional general appearance Hygiene/Attention to Grooming: good hygiene 09/20/2016 None Full Exam - General 1994 Eyes conjunctiva /eyelids Overall: conjunctiva clear 09/20/2016 None Full Exam - General 1994 Eyes conjunctiva /eyelids Overall: cornea clear 09/20/2016 None Full Exam - General 1994 Eyes conjunctiva /eyelids Overall: eyelids normal 09/20/2016 None Full Exam - General 1994 Eyes pupils and irises Overall: pupils equal, round, reactive to light and accomodation 09/20/2016 None Full Exam - General 1994 Ears/Nose/Throat otoscopic exam Overall: external auditory canals clear 09/20/2016 None Full Exam - General 1994 Ears/Nose/Throat otoscopic exam Overall: tympanic membranes clear 09/20/2016 None Full Exam - General 1994 Ears/Nose/Throat lips/teeth/gingiva Overall: benign lips 09/20/2016 None Full Exam - General 1995 Ears/Nose/Throat lips/teeth/gingiva Overall: normal dentition 09/20/2016 None Full Exam - General 1994 Ears/Nose/Throat oral cavity/pharynx/larynx Overall: oral mucosa clear 09/20/2016 None Full Exam - General 1994 Ears/Nose/Throat oral cavity/pharynx/larynx Overall: oropharyngeal mucosa clear 09/20/2016 None Full Exam - General 1994 Ears/Nose/Throat oral cavity/pharynx/larynx Overall: hypopharynx benign 09/20/2016 None Full Exam - General 1994 Ears/Nose/Throat oral cavity/pharynx/larynx Overall: no masses 09/20/2016 None Full Exam - General 1994 Respiratory auscultation Overall: breath sounds clear bilaterally 09/20/2016 None Full Exam - General 1994 Respiratory respiratory effort/rhythm Overall: no retractions 09/20/2016 None Full Exam - General 1994 Respiratory respiratory effort/rhythm Overall: normal rate 09/20/2016 None Full Exam - General 1994 Cardiovascular extremities Overall: no clubbing 09/20/2016 None Full Exam - General 1994 Cardiovascular auscultation of heart Overall: regular rate 09/20/2016 None Full Exam - General 1994 Cardiovascular auscultation of heart Overall: normal heart sounds 09/20/2016 None Full Exam - General 1994 Abdomen abdominal exam Overall: no tenderness 09/20/2016 None Full Exam - General 1994 Abdomen abdominal exam Overall: normal bowel sounds 09/20/2016 None Full Exam - General 1994 Integument inspection of skin Overall: few scattered moles, no gross abnormalities 09/20/2016 None Full Exam - General 1994 Neurologic deep tendon reflexes Overall: deep tendon reflexes intact 09/20/2016 None Full Exam - General 1994 Neurologic cranial nerves Overall: crainial nerves 2 - 12 grossly intact 09/20/2016 None Full Exam - General 1994 Psychiatric orientation/consciousness Overall: oriented to person, place and time 09/20/2016 None Full Exam - General 1994 Psychiatric mood and affect Overall: normal mood and affect 09/20/2016 None Full Exam - General 1994 Constitutional general appearance Development: well developed 09/01/2016 None Full Exam - General 1994 Constitutional general appearance Development: appears stated age 1209/01/2016 None Full Exam - General 1994 Constitutional general appearance Hygiene/Attention to Grooming: good hygiene 09/01/2016 None Full Exam - General 1994 Eyes conjunctiva /eyelids Overall: conjunctiva clear 09/01/2016 None Full Exam - General 1994 Eyes conjunctiva /eyelids Overall: cornea clear 09/01/2016 None Full Exam - General 1994 Eyes conjunctiva /eyelids Overall: eyelids normal 09/01/2016 None Full Exam - General 1994 Eyes pupils and irises Overall: pupils equal, round, reactive to light and accomodation 09/01/2016 None Full Exam - General 1994 Ears/Nose/Throat lips/teeth/gingiva Overall: benign lips 09/01/2016 None Full Exam - General 1994 Ears/Nose/Throat lips/teeth/gingiva Overall: normal dentition 09/01/2016 None Full Exam - General 1994 Ears/Nose/Throat oral cavity/pharynx/larynx Overall: oral mucosa clear 09/01/2016 None Full Exam - General 1994 Ears/Nose/Throat oral cavity/pharynx/larynx Overall: oropharyngeal mucosa clear 09/01/2016 None Full Exam - General 1994 Ears/Nose/Throat oral cavity/pharynx/larynx Overall: hypopharynx benign 09/01/2016 None Full Exam - General 1994 Ears/Nose/Throat oral cavity/pharynx/larynx Overall: no masses 09/01/2016 None Full Exam - General 1994 Respiratory auscultation Overall: breath sounds clear bilaterally 09/01/2016 None Full Exam - General 1994 Respiratory respiratory effort/rhythm Overall: no retractions 09/01/2016 None Full Exam - General 1994 Respiratory respiratory effort/rhythm Overall: normal rate 09/01/2016 None Full Exam - General 1994 Cardiovascular extremities Overall: no clubbing 09/01/2016 None Full Exam - General 1994 Cardiovascular auscultation of heart Overall: regular rate 09/01/2016 None Full Exam - General 1994 Cardiovascular auscultation of heart Overall: normal heart sounds 09/01/2016 None Full Exam - General 1994 Abdomen abdominal exam Overall: no tenderness 09/01/2016 None Full Exam - General 1994 Abdomen abdominal exam Overall: normal bowel sounds 09/01/2016 None Full Exam - General 1994 Lymphatic neck nodes Overall: anterior cervical chain benign 09/01/2016 None Full Exam - General 1994 Lymphatic neck nodes Overall: posterior cervical chain benign 09/01/2016 None Full Exam - General 1994 Integument inspection of skin Overall: few scattered moles, no gross abnormalities 09/01/2016 None Full Exam - General 1994 Neurologic deep tendon reflexes Overall: deep tendon reflexes intact 09/01/2016 None Full Exam - General 1994 Neurologic cranial nerves Overall: crainial nerves 2 - 12 grossly intact 09/01/2016 None Full Exam - General 1994 Psychiatric orientation/consciousness Overall: oriented to person, place and time 09/01/2016 None Full Exam - General 1994 Psychiatric mood and affect Overall: normal mood and affect 09/01/2016 None Full Exam - General 1994 Constitutional general appearance Development: well developed 06/02/2016 None Full Exam - General 1994 Constitutional general appearance Development: appears stated age 0906/02/2016 None Full Exam - General 1994 Constitutional general appearance Hygiene/Attention to Grooming: good hygiene 06/02/2016 None Full Exam - General 1994 Eyes conjunctiva /eyelids Overall: conjunctiva clear 06/02/2016 None Full Exam - General 1994 Eyes conjunctiva /eyelids Overall: cornea clear 06/02/2016 None Full Exam - General 1994 Eyes conjunctiva /eyelids Overall: eyelids normal 06/02/2016 None Full Exam - General 1994 Eyes pupils and irises Overall: pupils equal, round, reactive to light and accomodation 06/02/2016 None Full Exam - General 1994 Ears/Nose/Throat otoscopic exam Overall: external auditory canals clear 06/02/2016 None Full Exam - General 1994 Ears/Nose/Throat otoscopic exam Overall: tympanic membranes clear 06/02/2016 None Full Exam - General 1994 Ears/Nose/Throat lips/teeth/gingiva Overall: benign lips 06/02/2016 None Full Exam - General 1994 Ears/Nose/Throat lips/teeth/gingiva Overall: normal dentition 06/02/2016 None Full Exam - General 1994 Ears/Nose/Throat oral cavity/pharynx/larynx Overall: oral mucosa clear 06/02/2016 None Full Exam - General 1994 Ears/Nose/Throat oral cavity/pharynx/larynx Overall: oropharyngeal mucosa clear 06/02/2016 None Full Exam - General 1994 Ears/Nose/Throat oral cavity/pharynx/larynx Overall: hypopharynx benign 06/02/2016 None Full Exam - General 1994 Ears/Nose/Throat oral cavity/pharynx/larynx Overall: no masses 06/02/2016 None Full Exam - General 1994 Respiratory auscultation Overall: breath sounds clear bilaterally 06/02/2016 None Full Exam - General 1994 Respiratory respiratory effort/rhythm Overall: no retractions 06/02/2016 None Full Exam - General 1994 Respiratory respiratory effort/rhythm Overall: normal rate 06/02/2016 None Full Exam - General 1994 Cardiovascular extremities Overall: no clubbing 06/02/2016 None Full Exam - General 1994 Cardiovascular auscultation of heart Overall: regular rate 06/02/2016 None Full Exam - General 1994 Cardiovascular auscultation of heart Overall: normal heart sounds 06/02/2016 None Full Exam - General 1994 Abdomen abdominal exam Overall: no tenderness 06/02/2016 None Full Exam - General 1994 Abdomen abdominal exam Overall: normal bowel sounds 06/02/2016 None Full Exam - General 1994 Integument inspection of skin Overall: few scattered moles, no gross abnormalities 06/02/2016 None Full Exam - General 1994 Neurologic deep tendon reflexes Overall: deep tendon reflexes intact 06/02/2016 None Full Exam - General 1994 Neurologic cranial nerves Overall: crainial nerves 2 - 12 grossly intact 06/02/2016 None Full Exam - General 1994 Psychiatric orientation/consciousness Overall: oriented to person, place and time 06/02/2016 None Full Exam - General 1994 Psychiatric mood and affect Overall: normal mood and affect 06/02/2016 None Full Exam - General 1994 Lymphatic neck nodes Overall: anterior cervical chain benign 06/02/2016 None Full Exam - General 1994 Lymphatic neck nodes Overall: posterior cervical chain benign 06/02/2016 None Full Exam - General 1994 Constitutional general appearance Development: well developed 03/25/2016 None Full Exam - General 1994 Constitutional general appearance Development: appears stated age 0703/25/2016 None Full Exam - General 1994 Constitutional general appearance Hygiene/Attention to Grooming: good hygiene 03/25/2016 None Full Exam - General 1994 Eyes conjunctiva /eyelids Overall: conjunctiva clear 03/25/2016 None Full Exam - General 1994 Eyes conjunctiva /eyelids Overall: cornea clear 03/25/2016 None Full Exam - General 1994 Eyes conjunctiva /eyelids Overall: eyelids normal 03/25/2016 None Full Exam - General 1994 Eyes pupils and irises Overall: pupils equal, round, reactive to light and accomodation 03/25/2016 None Full Exam - General 1994 Ears/Nose/Throat otoscopic exam Overall: external auditory canals clear 03/25/2016 None Full Exam - General 1994 Ears/Nose/Throat otoscopic exam Overall: tympanic membranes clear 03/25/2016 None Full Exam - General 1994 Ears/Nose/Throat lips/teeth/gingiva Overall: benign lips 03/25/2016 None Full Exam - General 1994 Ears/Nose/Throat lips/teeth/gingiva Overall: normal dentition 03/25/2016 None Full Exam - General 1994 Ears/Nose/Throat oral cavity/pharynx/larynx Overall: oral mucosa clear 03/25/2016 None Full Exam - General 1994 Respiratory auscultation Overall: breath sounds clear bilaterally 03/25/2016 None Full Exam - General 1994 Respiratory respiratory effort/rhythm Overall: no retractions 03/25/2016 None Full Exam - General 1994 Respiratory respiratory effort/rhythm Overall: normal rate 03/25/2016 None Full Exam - General 1994 Cardiovascular extremities Overall: no clubbing 03/25/2016 None Full Exam - General 1994 Cardiovascular auscultation of heart Overall: normal heart sounds 03/25/2016 None Full Exam - General 1994 Neurologic cranial nerves Overall: crainial nerves 2 - 12 grossly intact 03/25/2016 None Full Exam - General 1994 Psychiatric orientation/consciousness Overall: oriented to person, place and time 03/25/2016 None Full Exam - General 1994 Psychiatric mood and affect Overall: normal mood and affect 03/25/2016 None Full Exam - General 1994 Cardiovascular auscultation of heart Rate: bradycardia 03/25/2016 None Full Exam - General 1994 Psychiatric appearance Overall: well-groomed, good eye contact 03/25/2016 None Full Exam - General 1994 Constitutional general appearance Development: well developed 01/26/2016 None Full Exam - General 1994 Constitutional general appearance Development: appears stated age 0501/26/2016 None Full Exam - General 1994 Constitutional general appearance Hygiene/Attention to Grooming: good hygiene 01/26/2016 None Full Exam - General 1994 Eyes conjunctiva /eyelids Overall: conjunctiva clear 01/26/2016 None Full Exam - General 1994 Eyes conjunctiva /eyelids Overall: cornea clear 01/26/2016 None Full Exam - General 1994 Eyes conjunctiva /eyelids Overall: eyelids normal 01/26/2016 None Full Exam - General 1994 Eyes pupils and irises Overall: pupils equal, round, reactive to light and accomodation 01/26/2016 None Full Exam - General 1994 Ears/Nose/Throat otoscopic exam Overall: external auditory canals clear 01/26/2016 None Full Exam - General 1994 Ears/Nose/Throat otoscopic exam Overall: tympanic membranes clear 01/26/2016 None Full Exam - General 1994 Ears/Nose/Throat lips/teeth/gingiva Overall: benign lips 01/26/2016 None Full Exam - General 1994 Ears/Nose/Throat lips/teeth/gingiva Overall: normal dentition 01/26/2016 None Full Exam - General 1994 Ears/Nose/Throat oral cavity/pharynx/larynx Overall: oral mucosa clear 01/26/2016 None Full Exam - General 1994 Ears/Nose/Throat oral cavity/pharynx/larynx Overall: oropharyngeal mucosa clear 01/26/2016 None Full Exam - General 1994 Ears/Nose/Throat oral cavity/pharynx/larynx Overall: hypopharynx benign 01/26/2016 None Full Exam - General 1994 Ears/Nose/Throat oral cavity/pharynx/larynx Overall: no masses 01/26/2016 None Full Exam - General 1994 Respiratory auscultation Overall: breath sounds clear bilaterally 01/26/2016 None Full Exam - General 1994 Respiratory respiratory effort/rhythm Overall: no retractions 01/26/2016 None Full Exam - General 1994 Respiratory respiratory effort/rhythm Overall: normal rate 01/26/2016 None Full Exam - General 1994 Cardiovascular extremities Overall: no clubbing 01/26/2016 None Full Exam - General 1994 Cardiovascular auscultation of heart Overall: regular rate 01/26/2016 None Full Exam - General 1994 Cardiovascular auscultation of heart Overall: normal heart sounds 01/26/2016 None Full Exam - General 1994 Abdomen abdominal exam Overall: no tenderness 01/26/2016 None Full Exam - General 1994 Abdomen abdominal exam Overall: normal bowel sounds 01/26/2016 None Full Exam - General 1994 Integument inspection of skin Overall: few scattered moles, no gross abnormalities 01/26/2016 None Full Exam - General 1994 Neurologic deep tendon reflexes Overall: deep tendon reflexes intact 01/26/2016 None Full Exam - General 1994 Neurologic cranial nerves Overall: crainial nerves 2 - 12 grossly intact 01/26/2016 None Full Exam - General 1994 Psychiatric orientation/consciousness Overall: oriented to person, place and time 01/26/2016 None Full Exam - General 1994 Psychiatric mood and affect Overall: normal mood and affect 01/26/2016 None Full Exam - General 1994 Constitutional general appearance Development: well developed 10/29/2015 None Full Exam - General 1994 Constitutional general appearance Development: appears stated age 0210/29/2015 None Full Exam - General 1994 Constitutional general appearance Hygiene/Attention to Grooming: good hygiene 10/29/2015 None Full Exam - General 1994 Eyes conjunctiva /eyelids Overall: conjunctiva clear 10/29/2015 None Full Exam - General 1994 Eyes conjunctiva /eyelids Overall: cornea clear 10/29/2015 None Full Exam - General 1994 Eyes conjunctiva /eyelids Overall: eyelids normal 10/29/2015 None Full Exam - General 1994 Eyes pupils and irises Overall: pupils equal, round, reactive to light and accomodation 10/29/2015 None Full Exam - General 1994 Ears/Nose/Throat otoscopic exam Overall: external auditory canals clear 10/29/2015 None Full Exam - General 1994 Ears/Nose/Throat otoscopic exam Overall: tympanic membranes clear 10/29/2015 None Full Exam - General 1994 Ears/Nose/Throat lips/teeth/gingiva Overall: benign lips 10/29/2015 None Full Exam - General 1994 Ears/Nose/Throat lips/teeth/gingiva Overall: normal dentition 10/29/2015 None Full Exam - General 1994 Ears/Nose/Throat oral cavity/pharynx/larynx Overall: oral mucosa clear 10/29/2015 None Full Exam - General 1994 Ears/Nose/Throat oral cavity/pharynx/larynx Overall: oropharyngeal mucosa clear 10/29/2015 None Full Exam - General 1994 Ears/Nose/Throat oral cavity/pharynx/larynx Overall: hypopharynx benign 10/29/2015 None Full Exam - General 1994 Ears/Nose/Throat oral cavity/pharynx/larynx Overall: no masses 10/29/2015 None Full Exam - General 1994 Respiratory auscultation Overall: breath sounds clear bilaterally 10/29/2015 None Full Exam - General 1994 Respiratory respiratory effort/rhythm Overall: no retractions 10/29/2015 None Full Exam - General 1994 Respiratory respiratory effort/rhythm Overall: normal rate 10/29/2015 None Full Exam - General 1994 Cardiovascular extremities Overall: no clubbing 10/29/2015 None Full Exam - General 1994 Cardiovascular auscultation of heart Overall: regular rate 10/29/2015 None Full Exam - General 1994 Cardiovascular auscultation of heart Overall: normal heart sounds 10/29/2015 None Full Exam - General 1994 Abdomen abdominal exam Overall: no tenderness 10/29/2015 None Full Exam - General 1994 Abdomen abdominal exam Overall: normal bowel sounds 10/29/2015 None Full Exam - General 1994 Integument inspection of skin Overall: few scattered moles, no gross abnormalities 10/29/2015 None Full Exam - General 1994 Neurologic deep tendon reflexes Overall: deep tendon reflexes intact 10/29/2015 None Full Exam - General 1994 Neurologic cranial nerves Overall: crainial nerves 2 - 12 grossly intact 10/29/2015 None Full Exam - General 1994 Psychiatric orientation/consciousness Overall: oriented to person, place and time 10/29/2015 None Full Exam - General 1994 Psychiatric mood and affect Overall: normal mood and affect 10/29/2015 None Full Exam - General 1994 Constitutional general appearance Development: well developed 07/21/2015 None Full Exam - General 1994 Constitutional general appearance Development: appears stated age 1107/21/2015 None Full Exam - General 1994 Constitutional general appearance Hygiene/Attention to Grooming: good hygiene 07/21/2015 None Full Exam - General 1994 Eyes conjunctiva /eyelids Overall: conjunctiva clear 07/21/2015 None Full Exam - General 1994 Eyes conjunctiva /eyelids Overall: cornea clear 07/21/2015 None Full Exam - General 1994 Eyes conjunctiva /eyelids Overall: eyelids normal 07/21/2015 None Full Exam - General 1994 Eyes pupils and irises Overall: pupils equal, round, reactive to light and accomodation 07/21/2015 None Full Exam - General 1994 Ears/Nose/Throat otoscopic exam Overall: external auditory canals clear 07/21/2015 None Full Exam - General 1994 Ears/Nose/Throat otoscopic exam Overall: tympanic membranes clear 07/21/2015 None Full Exam - General 1994 Ears/Nose/Throat lips/teeth/gingiva Overall: benign lips 07/21/2015 None Full Exam - General 1994 Ears/Nose/Throat lips/teeth/gingiva Overall: normal dentition 07/21/2015 None Full Exam - General 1994 Ears/Nose/Throat oral cavity/pharynx/larynx Overall: oral mucosa clear 07/21/2015 None Full Exam - General 1994 Ears/Nose/Throat oral cavity/pharynx/larynx Overall: oropharyngeal mucosa clear 07/21/2015 None Full Exam - General 1994 Ears/Nose/Throat oral cavity/pharynx/larynx Overall: hypopharynx benign 07/21/2015 None Full Exam - General 1994 Ears/Nose/Throat oral cavity/pharynx/larynx Overall: no masses 07/21/2015 None Full Exam - General 1994 Respiratory auscultation Overall: breath sounds clear bilaterally 07/21/2015 None Full Exam - General 1994 Respiratory respiratory effort/rhythm Overall: no retractions 07/21/2015 None Full Exam - General 1994 Respiratory respiratory effort/rhythm Overall: normal rate 07/21/2015 None Full Exam - General 1994 Cardiovascular extremities Overall: no clubbing 07/21/2015 None Full Exam - General 1994 Cardiovascular auscultation of heart Overall: regular rate 07/21/2015 None Full Exam - General 1994 Cardiovascular auscultation of heart Overall: normal heart sounds 07/21/2015 None Full Exam - General 1994 Psychiatric orientation/consciousness Overall: oriented to person, place and time 07/21/2015 None Full Exam - General 1994 Psychiatric mood and affect Overall: normal mood and affect 07/21/2015 None Full Exam - General 1994 Abdomen abdominal exam Overall: no tenderness 07/21/2015 None Full Exam - General 1994 Abdomen abdominal exam Overall: normal bowel sounds 07/21/2015 None Full Exam - General 1994 Integument inspection of skin Overall: few scattered moles, no gross abnormalities 07/21/2015 None Full Exam - General 1994 Neurologic deep tendon reflexes Overall: deep tendon reflexes intact 07/21/2015 None Full Exam - General 1994 Neurologic cranial nerves Overall: crainial nerves 2 - 12 grossly intact 07/21/2015 None Full Exam - General 1994 Constitutional general appearance Development: well developed 07/08/2015 None Full Exam - General 1994 Constitutional general appearance Development: appears stated age 1007/08/2015 None Full Exam - General 1994 Constitutional general appearance Hygiene/Attention to Grooming: good hygiene 07/08/2015 None Full Exam - General 1994 Eyes conjunctiva /eyelids Overall: conjunctiva clear 07/08/2015 None Full Exam - General 1994 Eyes conjunctiva /eyelids Overall: cornea clear 07/08/2015 None Full Exam - General 1994 Eyes conjunctiva /eyelids Overall: eyelids normal 07/08/2015 None Full Exam - General 1994 Eyes pupils and irises Overall: pupils equal, round, reactive to light and accomodation 07/08/2015 None Full Exam - General 1994 Ears/Nose/Throat otoscopic exam Overall: external auditory canals clear 07/08/2015 None Full Exam - General 1994 Ears/Nose/Throat otoscopic exam Overall: tympanic membranes clear 07/08/2015 None Full Exam - General 1994 Ears/Nose/Throat lips/teeth/gingiva Overall: benign lips 07/08/2015 None Full Exam - General 1994 Ears/Nose/Throat lips/teeth/gingiva Overall: normal dentition 07/08/2015 None Full Exam - General 1994 Ears/Nose/Throat oral cavity/pharynx/larynx Overall: oral mucosa clear 07/08/2015 None Full Exam - General 1994 Ears/Nose/Throat oral cavity/pharynx/larynx Overall: oropharyngeal mucosa clear 07/08/2015 None Full Exam - General 1994 Ears/Nose/Throat oral cavity/pharynx/larynx Overall: hypopharynx benign 07/08/2015 None Full Exam - General 1994 Ears/Nose/Throat oral cavity/pharynx/larynx Overall: no masses 07/08/2015 None Full Exam - General 1994 Respiratory auscultation Overall: breath sounds clear bilaterally 07/08/2015 None Full Exam - General 1994 Respiratory respiratory effort/rhythm Overall: no retractions 07/08/2015 None Full Exam - General 1994 Respiratory respiratory effort/rhythm Overall: normal rate 07/08/2015 None Full Exam - General 1994 Cardiovascular extremities Overall: no clubbing 07/08/2015 None Full Exam - General 1994 Cardiovascular auscultation of heart Overall: regular rate 07/08/2015 None Full Exam - General 1994 Cardiovascular auscultation of heart Overall: normal heart sounds 07/08/2015 None Full Exam - General 1994 Psychiatric orientation/consciousness Overall: oriented to person, place and time 07/08/2015 None Full Exam - General 1994 Psychiatric mood and affect Overall: normal mood and affect 07/08/2015 None Full Exam - General 1994 Constitutional general appearance Development: appears stated age 0805/04/2015 None Full Exam - General 1994 Constitutional general appearance Development: well developed 05/04/2015 None Full Exam - General 1994 Constitutional general appearance Hygiene/Attention to Grooming: good hygiene 05/04/2015 None Full Exam - General 1994 Eyes conjunctiva /eyelids Overall: conjunctiva clear 05/04/2015 None Full Exam - General 1994 Eyes conjunctiva /eyelids Overall: cornea clear 05/04/2015 None Full Exam - General 1994 Eyes conjunctiva /eyelids Overall: eyelids normal 05/04/2015 None Full Exam - General 1994 Eyes pupils and irises Overall: pupils equal, round, reactive to light and accomodation 05/04/2015 None Full Exam - General 1994 Ears/Nose/Throat otoscopic exam Overall: external auditory canals clear 05/04/2015 None Full Exam - General 1994 Ears/Nose/Throat otoscopic exam Overall: tympanic membranes clear 05/04/2015 None Full Exam - General 1994 Ears/Nose/Throat lips/teeth/gingiva Overall: benign lips 05/04/2015 None Full Exam - General 1994 Ears/Nose/Throat lips/teeth/gingiva Overall: normal dentition 05/04/2015 None Full Exam - General 1994 Ears/Nose/Throat oral cavity/pharynx/larynx Overall: hypopharynx benign 05/04/2015 None Full Exam - General 1994 Ears/Nose/Throat oral cavity/pharynx/larynx Overall: no masses 05/04/2015 None Full Exam - General 1994 Ears/Nose/Throat oral cavity/pharynx/larynx Overall: oral mucosa clear 05/04/2015 None Full Exam - General 1994 Ears/Nose/Throat oral cavity/pharynx/larynx Overall: oropharyngeal mucosa clear 05/04/2015 None Full Exam - General 1994 Respiratory auscultation Overall: breath sounds clear bilaterally 05/04/2015 None Full Exam - General 1994 Respiratory respiratory effort/rhythm Overall: no retractions 05/04/2015 None Full Exam - General 1994 Respiratory respiratory effort/rhythm Overall: normal rate 05/04/2015 None Full Exam - General 1994 Cardiovascular extremities Overall: no clubbing 05/04/2015 None Full Exam - General 1994 Cardiovascular auscultation of heart Overall: normal heart sounds 05/04/2015 None Full Exam - General 1994 Cardiovascular auscultation of heart Overall: regular rate 05/04/2015 None Full Exam - General 1994 Abdomen abdominal exam Overall: no tenderness 05/04/2015 None Full Exam - General 1994 Abdomen abdominal exam Overall: normal bowel sounds 05/04/2015 None Full Exam - General 1994 Integument inspection of skin Overall: few scattered moles, no gross abnormalities 05/04/2015 None Full Exam - General 1994 Neurologic deep tendon reflexes Overall: deep tendon reflexes intact 05/04/2015 None Full Exam - General 1994 Neurologic cranial nerves Overall: crainial nerves 2 - 12 grossly intact 05/04/2015 None Full Exam - General 1994 Psychiatric orientation/consciousness Overall: oriented to person, place and time 05/04/2015 None Full Exam - General 1994 Psychiatric mood and affect Overall: normal mood and affect 05/04/2015 None Procedures Procedure Codes Date ADMIN INFLUENZA VIRUS VAC CPT-4: G0008 06/02/2016 FLU VACC PRSV FREE INC ANTIG CPT-4: 29404 06/02/2016 Vital Signs Date Vital 10/10/2017 Blood Pressure 1: 168/78 Code : 8480-6 BMI: 23.0 Code : 47477-0 Heart Rate 1 : 54 bpm Height: 4'11" SpO2: 98% Weight: 114 lbs 09/07/2017 Blood Pressure 1: 142/72 Code : 8480-6 Heart Rate 1: 84 bpm Height: 4'11" SpO2: 97% Weight: 08/30/2017 Blood Pressure 1: 188/82 Code : 8480-6 BMI: 24.4 Code : 18188-8 Heart Rate 1 : 79 bpm Height: 4'11" SpO2: 88% Temperature: 38.5 (C) / 101.3 (F) Weight: 121 lbs 08/15/2017 Blood Pressure 1: 166/78 Code : 8480-6 BMI: 22.8 Code : 38006-6 Heart Rate 1 : 71 bpm Height: 4'11" SpO2: 96% Weight: 113 lbs 06/15/2017 Blood Pressure 1: 138/68 Code : 8480-6 BMI: 22.8 Code : 45435-0 Heart Rate 1 : 54 bpm Height: 4'11" SpO2: 98% Weight: 113 lbs 05/29/2017 Blood Pressure 1: 96/46 Code : 8480-6 Blood Pressure 2: 116/57 Code: 8480-6 Heart Rate 1: 54 bpm 05/11/2017 Blood Pressure 1: 144/60 Code : 8480-6 BMI: 23.8 Code : 17044-9 Heart Rate 1 : 68 bpm Height: 4'11" SpO2: 97% Weight: 118 lbs 01/05/2017 Blood Pressure 1: 134/72 Code : 8480-6 BMI: 24.8 Code : 55410-2 Heart Rate 1 : 64 bpm Height: 4'11" SpO2: 94% Weight: 123 lbs 09/20/2016 Blood Pressure 1: 148/66 Code : 8480-6 BMI: 25.4 Code : 32119-7 Heart Rate 1 : 68 bpm Height: 4'11" SpO2: 97% Weight: 126 lbs 09/01/2016 Blood Pressure 1: 162/80 Code : 8480-6 BMI: 26.1 Code : 99207-6 Heart Rate 1 : 75 bpm Height: 4'11" SpO2: 95% Weight: 129 lbs 06/02/2016 Blood Pressure 1: 144/82 Code : 8480-6 BMI: 25.4 Code : 06112-6 Heart Rate 1 : 68 bpm Height: 4'11" SpO2: 98% Weight: 126 lbs 03/25/2016 Blood Pressure 1: 140/58 Code : 8480-6 BMI: 25.9 Code : 20664-0 Heart Rate 1 : 58 bpm Height: 4'11" SpO2: 95% Weight: 128 lbs 01/26/2016 Blood Pressure 1: 138/68 Code : 8480-6 BMI: 26.3 Code : 58703-1 Heart Rate 1 : 66 bpm Height: 4'11" SpO2: 96% Weight: 130 lbs 10/29/2015 Blood Pressure 1: 180/78 Code : 8480-6 BMI: 25.7 Code : 88899-1 Heart Rate 1 : 74 bpm Height: 4'11" SpO2: 97% Weight: 127 lbs 07/21/2015 Blood Pressure 1: 136/70 Code : 8480-6 BMI: 25.9 Code : 67371-1 Heart Rate 1 : 63 bpm Height: 4'11" SpO2: 95% Weight: 128 lbs 07/08/2015 Blood Pressure 1: 140/70 Code : 8480-6 BMI: 26.5 Code : 66548-1 Heart Rate 1 : 59 bpm Height: 4'11" SpO2: 94% Weight: 131 lbs 5 oz 05/04/2015 Blood Pressure 1: 140/60 Code : 8480-6 BMI: 25.7 Code : 96600-6 Heart Rate 1 : 60 bpm Height: 4'11" SpO2: 94% Weight: 127 lbs Functional Status No Functional Status data History of Present Illness Symptom Name Status Result Effective Date Notes hypertension Quality chronic 10/10/2017 None hypertension Quality worsening 10/10/2017 None hypertension Onset and Resolution ongoing 10/10/2017 None hypertension Onset of Symptom during adulthood 10/10/2017 None hypertension Blood Pressure Values Stage 2:SBP 160-179 mmHg / DBP 100-109 mmHg 10/10/2017 None hypertension Severity not consistently severe symptoms, the symptoms fluctuate from no symptoms to anxiety and headaches 10/10/2017 None hypertension Triggers stress 10/10/2017 None hypertension Pertinent Findings Denies dyspnea 10/10/2017 None weakness Quality bilateral 09/07/2017 None weakness Quality improving 09/07/2017 None weakness Pertinent Findings Denies fever 09/07/2017 None fever Quality constant 08/30/2017 None fever Onset and Resolution sudden in onset 08/30/2017 None weakness Onset and Resolution ongoing 08/30/2017 None shortness of breath Quality breathlessness 08/30/2017 None shortness of breath Onset and Resolution sudden in onset 08/30/2017 None shortness of breath Onset of Symptom 24 hours ago 08/30/2017 None hypertension Quality primary hypertension 08/15/2017 None hypertension Onset and Resolution ongoing 08/15/2017 None hypertension Onset of Symptom during adulthood 08/15/2017 None hypertension Severity mild 08/15/2017 None hypertension Alleviating Factors medication 08/15/2017 None hypertension Pertinent Findings dizziness 08/15/2017 -feels lightheaded most of the time hypertension Pertinent Findings dyspnea 08/15/2017 with exertion hypertension Pertinent Findings edema 08/15/2017 occasionally- takes lasix and potassium as needed diabetes mellitus Onset of Symptom onset as an adult 08/15/2017 None diabetes mellitus Glucose monitoring before meals 08/15/2017 None diabetes mellitus Glucose monitoring bedtime 08/15/2017 None hypertension Quality primary hypertension 06/15/2017 None hypertension Onset and Resolution ongoing 06/15/2017 None hypertension Onset of Symptom during adulthood 06/15/2017 None hypertension Alleviating Factors medication 06/15/2017 None hypertension Pertinent Findings dizziness 06/15/2017 -feels lightheaded most of the time hypertension Pertinent Findings dyspnea 06/15/2017 with exertion hypertension Pertinent Findings edema 06/15/2017 occasionally- takes lasix and potassium as needed hypertension Severity mild 06/15/2017 None hypertension Quality intermittent 05/11/2017 None hypertension Onset and Resolution ongoing 05/11/2017 None hypertension Onset of Symptom during adulthood 05/11/2017 None hypertension Blood Pressure Values not checking blood pressure at home 05/11/2017 None hypertension Alleviating Factors medication 05/11/2017 None hypertension Pertinent Findings Denies dizziness 05/11/2017 None hypertension Pertinent Findings Denies dyspnea 05/11/2017 occasionally hypertension Pertinent Findings edema 05/11/2017 None diabetes mellitus Onset of Symptom onset as an adult 05/11/2017 None diabetes mellitus Glucose monitoring before meals 05/11/2017 None diabetes mellitus Glucose monitoring bedtime 05/11/2017 None hypertension Quality intermittent 01/05/2017 None hypertension Onset and Resolution ongoing 01/05/2017 None hypertension Onset of Symptom during adulthood 01/05/2017 None hypertension Alleviating Factors medication 01/05/2017 None hypertension Pertinent Findings Denies dizziness 01/05/2017 None hypertension Pertinent Findings Denies dyspnea 01/05/2017 occasionally hypertension Pertinent Findings edema 01/05/2017 None hypertension Blood Pressure Values not checking blood pressure at home 01/05/2017 None hypertension Onset and Resolution ongoing 09/20/2016 None hypertension Quality intermittent 09/20/2016 None hypertension Onset of Symptom during adulthood 09/20/2016 None hypertension Blood Pressure Values patient checking blood pressure at home - did not bring in readings 09/20/2016 None hypertension Alleviating Factors medication 09/20/2016 None hypertension Pertinent Findings Denies dizziness 09/20/2016 None hypertension Pertinent Findings dyspnea 09/20/2016 occasionally hypertension Pertinent Findings Denies edema 09/20/2016 None Hospital Follow Up _ cardiac disease 09/01/2016 HTN Hospital Follow Up Quality chronic illness 09/01/2016 None Hospital Follow Up Onset and Resolution ongoing 09/01/2016 None blood pressure followup Quality intermittent 09/01/2016 None blood pressure followup Onset and Resolution ongoing 09/01/2016 None blood pressure followup Pertinent Findings Denies anxiety 09/01/2016 None blood pressure followup Pertinent Findings Denies dizziness 09/01/2016 None Hospital Follow Up Pertinent Findings Denies pain 09/01/2016 None diabetes mellitus Onset of Symptom onset as an adult 06/02/2016 None diabetes mellitus Quality insulin dependent 06/02/2016 None diabetes mellitus Quality chronic 06/02/2016 None diabetes mellitus Alleviating Factors medication 06/02/2016 None diabetes mellitus Alleviating Factors insulin 06/02/2016 None diabetes mellitus Exacerbating Factors diet 06/02/2016 None diabetes mellitus Nutrition ADA diet 06/02/2016 None diabetes mellitus Pertinent Findings Denies dizziness 06/02/2016 None diabetes mellitus Pertinent Findings Denies nausea 06/02/2016 None diabetes mellitus Pertinent Findings Denies numbness 06/02/2016 None diabetes mellitus Pertinent Findings Denies tingling 06/02/2016 None hypertension Onset and Resolution ongoing 06/02/2016 None hypertension Blood Pressure Values not checking blood pressure at home 06/02/2016 -checks once in a while- hypertension Alleviating Factors medication 06/02/2016 None hypertension Pertinent Findings edema 06/02/2016 if she walks frequently or stands for long periods diabetes mellitus Test results Pt checking blood glucose readings, did not bring results to clinic 06/02/2016 None diabetes mellitus Glucose monitoring before meals 06/02/2016 None diabetes mellitus Glucose monitoring bedtime 06/02/2016 None diabetes mellitus Pertinent Findings dyspnea 06/02/2016 with exertion hypertension Onset of Symptom during adulthood 06/02/2016 None hyperlipidemia Onset and Resolution gradual in onset 06/02/2016 None hyperlipidemia Onset and Resolution ongoing 06/02/2016 None hyperlipidemia Onset of Symptom during adulthood 06/02/2016 None hyperlipidemia Alleviating Factors medication 06/02/2016 None hyperlipidemia Exacerbating Factors diet 06/02/2016 None blood pressure followup Onset and Resolution sudden in onset 03/25/2016 1 blood pressure followup Onset of Symptom 1 days ago 03/25/2016 None blood pressure followup Blood Pressure Values pt checking blood pressure - see scanned document 03/25 None diabetes mellitus Onset of Symptom onset as an adult 01/26/2016 None diabetes mellitus Quality insulin dependent 01/26/2016 None diabetes mellitus Quality chronic 01/26/2016 None diabetes mellitus Alleviating Factors medication 01/26/2016 None diabetes mellitus Alleviating Factors insulin 01/26/2016 None diabetes mellitus Nutrition ADA diet 01/26/2016 None hypertension Onset and Resolution ongoing 01/26/2016 None hypertension Blood Pressure Values not checking blood pressure at home 01/26/2016 -checks once in a while- hypertension Alleviating Factors medication 01/26/2016 None hypertension Pertinent Findings dizziness 01/26/2016 None hypertension Pertinent Findings dyspnea 01/26/2016 with exertion hypertension Pertinent Findings edema 01/26/2016 in the left ankle intermittently dyspnea Quality intermittent 01/26/2016 None dyspnea Quality shortness of breath 01/26/2016 None dyspnea Onset and Resolution ongoing 01/26/2016 None dyspnea Alleviating Factors rest 01/26/2016 None dyspnea Exacerbating Factors exertion 01/26/2016 None edema Quality intermittent 01/26/2016 None edema Onset and Resolution ongoing 01/26/2016 None edema Location on the left ankle 01/26/2016 None edema Quality improving 01/26/2016 None edema Exacerbating Factors standing 01/26/2016 None edema Exacerbating Factors activity 01/26/2016 None edema Alleviating Factors rest 01/26/2016 None dyspnea Quality improving 01/26/2016 None diabetes mellitus Test results Pt checking blood glucose readings, did not bring results to clinic 01/26/2016 None diabetes mellitus Glucose monitoring before meals 01/26/2016 None diabetes mellitus Glucose monitoring bedtime 01/26/2016 None diabetes mellitus Exacerbating Factors diet 01/26/2016 None diabetes mellitus Pertinent Findings dizziness 01/26/2016 None diabetes mellitus Pertinent Findings Denies nausea 01/26/2016 None diabetes mellitus Pertinent Findings numbness 01/26/2016 in her feet occasionally diabetes mellitus Pertinent Findings tingling 01/26/2016 in her feet occasionally diabetes mellitus Test results HgbA1c level 10.9 01/26/2016 None diabetes mellitus Onset of Symptom onset as an adult 10/29/2015 None diabetes mellitus Quality insulin dependent 10/29/2015 None diabetes mellitus Quality chronic 10/29/2015 None diabetes mellitus Alleviating Factors medication 10/29/2015 None diabetes mellitus Alleviating Factors insulin 10/29/2015 None diabetes mellitus Nutrition ADA diet 10/29/2015 None diabetes mellitus Test results Pt checking blood glucose readings, did not bring results to clinic 10/29/2015 None diabetes mellitus Glucose monitoring daily 10/29/2015 -checks 5x daily- hypertension Onset and Resolution ongoing 10/29/2015 None hypertension Blood Pressure Values not checking blood pressure at home 10/29/2015 -checks once in a while- hypertension Alleviating Factors medication 10/29/2015 None hypertension Pertinent Findings edema 10/29/2015 lower legs/ankles hypertension Pertinent Findings Denies dizziness 10/29/2015 None hypertension Pertinent Findings dyspnea 10/29/2015 with exertion dyspnea Onset and Resolution ongoing 10/29/2015 None dyspnea Quality intermittent 10/29/2015 None dyspnea Quality shortness of breath 10/29/2015 None dyspnea Onset of Symptom 2 months ago 10/29/2015 None dyspnea Exacerbating Factors exertion 10/29/2015 None dyspnea Alleviating Factors rest 10/29/2015 None edema Onset and Resolution ongoing 10/29/2015 None edema Quality intermittent 10/29/2015 None edema Location on the left ankle 10/29/2015 None edema Location on the right ankle 10/29/2015 None diabetes mellitus Test results HgbA1c level 9.5 10/29/2015 - done at Dr. Johnson's office edema Quality improving 07/21/2015 None diabetes mellitus Onset of Symptom onset as an adult 07/21/2015 None diabetes mellitus Quality non-insulin dependent 07/21/2015 None diabetes mellitus Quality insulin dependent 07/21/2015 None diabetes mellitus Quality chronic 07/21/2015 None diabetes mellitus Alleviating Factors medication 07/21/2015 None diabetes mellitus Alleviating Factors insulin 07/21/2015 None diabetes mellitus Nutrition ADA diet 07/21/2015 None edema Onset and Resolution ongoing 07/21/2015 None edema Triggers no known associated factors 07/21/2015 None edema Alleviating Factors medication 07/21/2015 None diabetes mellitus Alleviating Factors insulin 05/04/2015 None diabetes mellitus Alleviating Factors medication 05/04/2015 None diabetes mellitus Exercise minimal exercise 05/04/2015 None diabetes mellitus Nutrition ADA diet 05/04/2015 None diabetes mellitus Onset of Symptom onset as an adult 05/04/2015 None diabetes mellitus Quality chronic 05/04/2015 None diabetes mellitus Quality insulin dependent 05/04/2015 None diabetes mellitus Quality non-insulin dependent 05/04/2015 None diabetes mellitus Test results HgbA1c level _ 05/04/2015 None Advance Directives Advance Directives Present Encounters Encounter Performer Location Codes Date 45446 EST. PATIENT, LEVEL IV Diagnosis: Type 2 diabetes mellitus without complications[ICD10: E11.9] Diagnosis: Mixed hyperlipidemia[ICD10: E78.2] Diagnosis: Essential (primary) hypertension[ICD10: I10] Elizabeth Sow MD, [facility] CPT-4: 74914 10/10/2017 53572 EST. PATIENT, LEVEL III Diagnosis: Weakness[ICD10: R53.1] Diagnosis: Essential (primary) hypertension[ICD10: I10] Elizabeth Sow MD, [facility] CPT-4: 26895 09/07/2017 13752 EST. PATIENT, LEVEL III Diagnosis: Encounter for follow-up examination after completed treatment for conditions other than malignant neoplasm[ICD10: Z09] Diagnosis: Weakness[ICD10: R53.1] Diagnosis: Essential (primary) hypertension[ICD10: I10] Diagnosis: Dyspnea, unspecified[ICD10: R06.00] Diagnosis: Unsteadiness on feet[ICD10: R26.81] Elizabeth Sow MD, [facility] CPT-4: 35811 08/30/2017 ([id number]) 45592 EST. PATIENT, LEVEL IV Diagnosis: Type 2 diabetes mellitus without complications[ICD10: E11.9] Diagnosis: Essential (primary) hypertension[ICD10: I10] Kate Sow MD [facility] CPT-4: 64627 08/15/2017 ([id number]) [id number] EST. PATIENT, LEVEL IV Diagnosis: Type 2 diabetes mellitus without complications[ICD10: E11.9] Diagnosis: Essential (primary) hypertension[ICD10: I10] Diagnosis: Unsteadiness on feet[ICD10: R26.81] Kate Sow MD, [facility] CPT-4: 94263 06/15/2017 ([id number]) Miscellaneous no charge Diagnosis: Essential (primary) hypertension[ICD10: I10] Laney Sow MD, [facility] CPT-4: 83709 05/29/2017 ([id number]) 66573 EST. PATIENT, LEVEL IV Diagnosis: Type 2 diabetes mellitus without complications[ICD10: E11.9] Diagnosis: Essential (primary) hypertension[ICD10: I10] Diagnosis: Mixed hyperlipidemia[ICD10: E78.2] Kate Sow MD, [facility] CPT-4: 92885 05/11/2017 ([id number]) 01156 EST. PATIENT, LEVEL IV Diagnosis: Type 2 diabetes mellitus without complications[ICD10: E11.9] Diagnosis: Essential (primary) hypertension[ICD10: I10] Kate Sow MD, [facility] CPT-4: 54468 01/05/2017 ([id number]) 90866 EST. PATIENT, LEVEL III Diagnosis: Essential (primary) hypertension[ICD10: I10] Kate Sow MD, [facility] CPT-4: 59662 09/20/2016 ([id number]) [id number] EST. PATIENT, LEVEL III Diagnosis: Essential (primary) hypertension[ICD10: I10] Laney Sow MD, [facility] CPT-4: 89630 09/01/2016 ([id number]) Miscellaneous no charge Diagnosis: Impacted cerumen, right ear[ICD10: H61.21] Elizabeth Sow MD, [facility] CPT-4: 84573 06/08/2016 ([id number]) 16980 EST. PATIENT, LEVEL IV Diagnosis: Type 2 diabetes mellitus without complications[ICD10: E11.9] Diagnosis: Essential (primary) hypertension[ICD10: I10] Diagnosis: Encounter for immunization[ICD10: Z23] [facility] CPT-4: 94259 06/02/2016 97623 EST. PATIENT, LEVEL III Diagnosis: Essential (primary) hypertension[ICD10: I10] Diagnosis: Other specified cardiac arrhythmias[ICD10: I49.8] Elizabeth Sow MD, [facility] CPT-4: 94540 03/25/2016 ([id number]) 03735 EST. PATIENT, LEVEL IV Diagnosis: Type 2 diabetes mellitus without complications[ICD10: E11.9] Diagnosis: Essential (primary) hypertension[ICD10: I10] [facility] CPT-4: 15589 01/26/2016 ([id number]) 37697 EST. PATIENT, LEVEL IV Diagnosis: Essential (primary) hypertension[ICD10: I10] Diagnosis: Type 2 diabetes mellitus without complications[ICD10: E11.9] [facility] CPT-4: 21420 10/29/2015 [id number]) [id number] EST. PATIENT, LEVEL IV Diagnosis: Essential (primary) hypertension[ICD10: I10] Diagnosis: Dyspnea, unspecified[ICD10: R06.00] [facility] CPT-4: 88469 07/21/2015 [id number]) [id number] EST. PATIENT, LEVEL III Diagnosis: Edema, unspecified[ICD10: R60.9] [facility] CPT-4: 12532 07/08/2015 ([id number]) OFFICE VISIT, NEW - LEVEL 4 Diagnosis: ESSENTIAL HYPERTENSION[ICD9: 401.9] Diagnosis: DIABETES TYPE II[ICD9: 250.00] [facility] CPT- 4: 00688 05/04/2015 Plan of Care Planned Activity Notes Codes Status Date Appointment: Elizabeth Milner WPtel: [address] [place], [place] [address] [place] (15 min) Moderate 10/10/2017 Patient Education: Patient Medication Summary Completed 10/10/2017 Appointment: Elizabeth Milner WPtel: [phone] [facility] [place] (30 min) Complex 09/07/2017 Patient Education: Patient Medication Summary Completed 09/07/2017 Appointment: Kate Sow WPtel: [phone] [facility] [place] (15 min) Moderate 09/05/2017 Appointment: Elizabeth Milner WPtel: [phone] [facility] [place] (30 min) Complex 08/30/2017 Patient Education: Patient Medication Summary Completed 08/30/2017 Appointment: Elizabeth Milner WPtel: [phone] [facility] [place] (15 min) Moderate 08/29/2017 Appointment: Kate Sow WPtel: [facility] [place] (15 min) Moderate 08/15/2017 Patient Education: Patient Medication Summary Completed 08/15/2017 Care Plan: [id number] Cancelled 08/15/2017 [phone] Patient[facility] informed. Completed 06/26/2017 Appointment: [facility] [place] ([place] min) Moderate 06/15/2017 Patient Education: Patient Medication Summary Completed 06/15/2017 Care Plan: Referral Order SNOMED-CT : [id number] Pending 06/15/2017 Appointment: Nurse Visit 05/29/2017 Patient Education: Patient Medication Summary Completed 05/29/2017 Patient Education: Hypertension Completed 05/29/2017 Appointment: Kate Sow WPtel: [phone] [facility] [place] (15 min) Moderate 05/11/2017 Patient Education: Patient Medication Summary Completed 05/11/2017 Appointment: [phone] [place] [place] ([place] min) Moderate 01/05/2017 Patient Education: Patient Medication Summary Completed 01/05/2017 Appointment: [phone] [place] ([place] min) Complex 09/20/2016 Patient Education: Patient Medication Summary Completed 09/20/2016 [phone] [place] (30 min) Complex 09/01/2016 Patient Education: Patient Medication Summary Completed 09/01/2016 Appointment: [phone] [place] (15 min) Moderate 08/31/2016 Appointment: Nurse Visit 06/08/2016 Patient Education: Patient Medication Summary Completed 06/08/2016 Appointment: [phone] [place] [place] (15 min) Moderate 06/02/2016 Patient Education: Patient Medication Summary Completed 06/02/2016 Patient Education: Hypertension Completed 06/02/2016 App[facility]ment: [phone] [place] [place] (10 min) Simple 03/25/2016 Patient Education: Patient Medication Summary Completed 03/25/2016 Patient Education: Hypertension Completed 03/25/2016 Patient Education: Patient Medication Summary Completed 01/26/2016 Patient Education: Hypertension Completed 01/26/2016 Appointment: Laney Mcmillan WPtel: [phone] [phone] [place] (30 min) Complex 12/31/2015 Appointment: Kate [facility]ow [phone] [place] (15 min) Moderate 10/29/2015 Patient Education: Patient Medication Summary Completed 10/29/2015 Patient Education: Hypertension Completed 10/29/2015 Appointment: Kate [facility]ow [phone] (15 min) Moderate 09/14/2015 Patient Education: Patient Medication Summary Completed 07/21/2015 Patient Education: Hypertension Completed 07/21/2015 Appointment: Nurse Visit 07/08/2015 Patient Education: Patient Medication Summary Completed 07/08/2015 Appointment: Kate Sow W[facility]el: [facility] [place] (S[place] New Patient 05/04/2015 Patient Education: Patient Medication Summary Completed 05/04/2015 Patient Education: Hypertension Completed 05/04/2015 [phone] Referral Appointment Requested Instructions No Instructions
--- OUTSIDE RECORDS SUMMARY | 2017-12-13 00:42 | XMS REPORT | CCD ---
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 Name Role Phone PP Unavailable CCM Unavailable Summary Purpose Interface Exchange Insurance Providers Payer name Policy type / Coverage type Covered green party ID Effective Begin Date Effective End Date WPS Medicare Part B Medicare Part B [id number] Unknown Unknown [employer] Medicare Part B [id number] Unknown Unknown Family history Mother Diagnosis Age [...] Unknown 2 05/04/[address]: 428588133 Never smoker 05/04/2015 Alcohol history Unknown occasionally drinks alcohol 05/04/2015 Allergies, Adverse Reactions, Alerts Allergies, Adverse Reactions, Alerts data not found Past Medical History Illness Codes Condition Status Onset Date Resolved Date Essential (primary) hypertension ICD-9: 401.9 ICD-10: I10 Active 08/31/2016 Unknown Weakness ICD-9: 780.79 ICD-10: R53.1 Active 08/30/2017 Unknown Dyspnea, unspecified ICD-9: 786.09 ICD-10: R06.00 Active 07/20/2015 Unknown Encounter for follow-up examination after completed treatment for conditions other than malignant neoplasm ICD-9: V67.59 ICD-10: Z09 Active 08/30/2017 Unknown Essential (primary) hypertension ICD-9: 401.1 ICD-10: I10 Active 09/20/2016 Unknown Unsteadiness on feet ICD-9: 781.2 ICD-10: R26.81 Active 06/15/2017 Unknown Type 2 diabetes mellitus without complications ICD-9: 250.00 ICD-10: E11.9 Active 05/03/2015 Unknown Mixed hyperlipidemia ICD-9: 272.2 ICD-10: E78.2 Active 05/11/2017 Unknown Impacted cerumen, right ear ICD-9: 380.4 [...] Dates Condition Status Essential (primary) hypertension ICD-9: 401.9 ICD-10: I10 08/31/2016 Active Weakness ICD-9: 780.79 ICD-10: R53.1 08/30/2017 Active Dyspnea, unspecified ICD-9: 786.09 ICD-10: R06.00 07/20/2015 Active Encounter for follow-up examination after completed treatment for conditions other than malignant neoplasm ICD-9: V67.59 ICD-10: Z09 08/30/2017 Active Essential (primary) hypertension ICD-9: 401.1 ICD-10: I10 09/20/2016 Active Unsteadiness on feet ICD-9: 781.2 ICD-10: R26.81 06/15/2017 Active Type 2 diabetes mellitus without complications ICD-9: 250.00 ICD-10: E11.9 05/03/2015 Active Mixed hyperlipidemia ICD-9: 272.2 ICD-10: E78.2 05/11/2017 Active Impacted cerumen, right ear ICD-9: 380.4 [...] Fill Instructions losartan 50 mg tablet RxNorm: 483767 1 Tablet(s) PO QAM 201603/12/2018 Active Lasix 20 mg tablet RxNorm: 730728 1 Tablet(s) PO daily 201610/03/2017 Inactive potassium chloride ER 10 mEq tablet,extended release RxNorm: 845742 1 Tablet(s) PO daily while on the Lasix 08/30/2017 Inactive Toujeo SoloStar 300 unit/mL (1.5 mL) subcutaneous insulin pen RxNorm: 0370517 35 Unit(s) SQ QHS MANAGED BY DR. JOHNSON 06/15/2017 10/12/2017 Active Eliquis 5 mg tablet RxNorm: 2002852 TAKE ONE TABLET BY MOUTH TWICE DAILY 03/01/2017 02/23/2018 Active Januvia 100 mg tablet RxNorm: 745847 1/2 Tablet(s) PO daily 04/04/2017 Inactive losartan 50 mg tablet RxNorm: 740132 1 Tablet(s) PO BID 201509/13/2017 Inactive amlodipine 10 mg tablet RxNorm: 088775 1 Tablet(s) PO daily 06/14/2017 Inactive generic for NORVASC losartan 50 mg tablet RxNorm: 420273 1 Tablet(s) PO daily 201508/31/2016 Inactive Toujeo SoloStar 300 unit/mL (1.5 mL) subcutaneous insulin pen RxNorm: 3744044 40 Unit(s) SQ QHS MANAGED BY DR. JOHNSON 07/01/2016 06/14/2017 Inactive Humalog 100 unit/mL subcutaneous solution RxNorm: 898907 15 Unit(s) SQ AC MANAGED BY DR. JOHNSON 06/02/2016 No Stop Date Active Toujeo SoloStar 300 unit/mL (1.5 mL) subcutaneous insulin pen RxNorm: 1264496 35 Unit(s) SQ QHS MANAGED BY DR. JOHNSON 06/02/2016 06/30/2016 Inactive carvedilol 3.125 mg tablet RxNorm: 763778 1 Tablet(s) PO BID 04/23/2016 Inactive simvastatin 40 mg tablet RxNorm: 232368 1 Tablet(s) PO QHS 01/29/2017 Inactive Humalog 100 unit/mL subcutaneous solution RxNorm: 986231 13 Unit(s) SQ AC MANAGED BY DR. JOHNSON 01/26/2016 06/01/2016 Inactive Eliquis 5 mg tablet RxNorm: 2728282 1 Tablet(s) PO BID 201501/13/2017 Inactive carvedilol 6.25 mg tablet RxNorm: 122397 1 Tablet(s) PO BID 2016 Inactive Humalog 100 unit/mL subcutaneous solution RxNorm: 232672 Unit(s) SQ UD as directed by office 08/07/2015 01/25/2016 Inactive Klor-Con 10 mEq tablet,extended release RxNorm: 753167 1 Tablet(s) PO daily as needed 06/26/2015 10/23/2015 Inactive Lasix 20 mg tablet RxNorm: 007217 1 Tablet(s) PO daily as needed 06/26/2015 10/23/2015 Inactive fluticasone 50 mcg/actuation nasal spray,suspension RxNorm: 496668 2 [place] NASAL daily No Start Date Active Multaq 400 mg tablet RxNorm: 021943 1 Tablet(s) PO BID No Start Date Active cetirizine 10 mg tablet RxNorm: 7012201 1 Tablet(s) PO daily No Start Date Active Norvasc 2.5 mg tablet RxNorm: 687976 1 Tablet(s) PO daily No Start Date Active losartan 25 mg tablet RxNorm: 898606 1 Tablet(s) PO daily No Start Date 08/31/2016 Inactive losartan 100 mg tablet RxNorm: 068267 1 Tablet(s) PO daily No Start Date 06/30/2016 Inactive Klor-Con 10 mEq tablet,extended release RxNorm: 144394 1 Tablet(s) PO daily as needed No Start Date 06/25/2015 Inactive simvastatin 40 mg tablet RxNorm: 434487 1 Tablet(s) PO daily No Start Date 02/04/2016 Inactive carvedilol 6.25 mg tablet RxNorm: 475721 1 Tablet(s) PO BID No Start Date 11/30/2015 Inactive Eliquis 5 mg tablet RxNorm: 1387305 1 Tablet(s) PO BID No Start Date 01/19/2016 Inactive Toujeo SoloStar 300 unit/mL (1.5 mL) subcutaneous insulin pen RxNorm: 6720057 33 Unit(s) SQ QHS MANAGED BY DR. JOHNSON No Start Date 06/01/2016 Inactive Lasix 20 mg tablet RxNorm: 844812 1 Tablet(s) PO daily as needed No Start Date 06/25/2015 Inactive Humalog 100 unit/mL subcutaneous solution RxNorm: 321053 10 Unit(s) SQ TID No Start Date 08/06/2015 Inactive amlodipine 5 mg tablet RxNorm: 659688 1 Tablet(s) PO daily No Start Date 08/31/2016 Inactive Medication Administered No Medication Administered data Immunizations Vaccine Codes Date Status Influenza CVX: 141 06/02/2016 completed Influenza CVX: 141 07/17/2015 completed Influenza CVX: 141 06/18/2014 completed Pneumococcal CVX: 33 06/18/2014 completed Assessments Condition Codes Effective Dates Weakness ICD-10: R53.1 ICD-9: 780.79 09/07/2017 Essential (primary) hypertension ICD-10: I10 ICD-9: 401.9 09/07/2017 Dyspnea, unspecified ICD-10: R06.00 ICD-9: 786.09 08/30/2017 Essential (primary) hypertension ICD-10: I10 ICD-9: 401.1 08/30/2017 Encounter for follow-up examination after completed treatment for conditions other than malignant neoplasm ICD-10: Z09 ICD-9: V67.59 08/30/2017 Unsteadiness on feet ICD-10: R26.81 ICD-9: 781.2 08/30/2017 Type 2 diabetes mellitus without complications ICD-10: E11.9 ICD-9: 250.00 08/15/2017 Mixed hyperlipidemia ICD-10: E78.2 ICD-9: 272.2 05/11/2017 Impacted cerumen, right ear ICD-10: H61.21 ICD-9: 380.4 06/08/2016 Encounter for immunization ICD-10: Z23 ICD-9: V04.81 06/02/2016 Other specified cardiac arrhythmias ICD-10: I49.8 ICD-9: 427.89 03/25/2016 Edema, unspecified ICD-10: R60.9 ICD-9: 782.3 07/08/2015 DIABETES TYPE II ICD-9: 250.00 2014 ESSENTIAL HYPERTENSION ICD-9: 401.9 05/04 Reason For Visit Reason For Visit Effective Dates Notes weakness 09/07/2017 fever 08/30/2017 hypertension 08/15/2017 hypertension [...] 42.6 % 05/25/2017 Cbc With Differential Ord2 Lymph% 45.7 % 05/25/2017 Cbc With Differential Ord2 MCV 92.2 fl 05/25/2017 Cbc With Differential Ord2 Sutter% 8.9 % 05/25/2017 Cbc With Differential Ord2 MCH 31.2 pg 05/25/2017 Cbc With Differential Ord2 MCHC 33.8 pg 05/25/2017 Cbc With Differential Ord2 Eos% 9.7 % 05/25/2017 Cbc With Differential Ord2 Baso% 3.6 % 05/25/2017 Cbc With Differential Ord2 PLT 493 K/ul 05/25/2017 Cbc With Differential Ord2 Neut ABS# 2.65 K/ul 05/25/2017 Cbc With Differential Ord2 RDW 16.3 % 05/25/2017 Cbc With Differential Ord2 Lymph ABS# 3.78 K/ul 05/25/2017 Cbc With Differential Ord2 Sutter ABS# 0.7 K/ul 05/25/2017 Cbc With Differential Ord2 Eos ABS# 0.8 K/ul 05/25/2017 Cbc With Differential Ord2 Baso ABS# 0.3 K/ul 05/25/2017 Manual Differential Ord52 D-Neutr 50 % 05/25/2017 Manual Differential Ord52 D-Lymph 38 % 05/25/2017 Manual Differential Ord52 D-Eos 10 % 05/25/2017 Manual Differential Ord52 D-1 2 NRBC 05/25/2017 Comp Metabolic Bmz270 NA 140 mEq/L 05/25/2017 Comp Metabolic Mly093 K 4.0 mEq/L 05/25/2017 Comp Metabolic Gtu501 CL 107 mEq/L 05/25/2017 Comp Metabolic Xuj153 CO2 22.0 mEq/L 05/25/2017 Comp Metabolic Mkf673 ANION GAP 15 05/25/2017 Comp Metabolic Ubt761 GLUCOSE 97 mg/dL 05/25/2017 Comp Metabolic Rqx079 Creat 0.9 mg/dL 05/25/2017 Comp Metabolic Pru810 eGFR 61 ml/min/1.73m2 05/25/2017 Comp Metabolic Aip294 BUN 16 mg/dL 05/25/2017 Comp Metabolic Gpb043 B/C Ratio 17.4 Ratio 05/25/2017 Comp Metabolic Dmj671 CALCIUM 9.1 mg/dL 05/25/2017 Comp Metabolic Idb599 ALK PHOS 109 U/L 05/25/2017 Comp Metabolic Ycq043 AST(SGOT) 19 U/L 05/25/2017 Comp Metabolic Ivc170 ALT(SGPT) 17 U/L 05/25/2017 Comp Metabolic Abn319 BILI T 0.4 mg/dL 05/25/2017 Comp Metabolic Vnx903 ALBUMIN 3.3 g/dL 05/25/2017 Comp Metabolic Ktr479 TPRO 6.0 g/dL 05/25/2017 Comp Metabolic Pbe679 GLOB 2.7 g/dL 05/25/2017 Comp Metabolic Zae042 A/G Ratio 1.2 Ratio 05/25/2017 Comp Metabolic Hog564 Osmo 281 mOsmo 05/25/2017 Lipid Ord30 CHOL 204 mg/dL 05/25/2017 Lipid Ord30 HDL 49.0 mg/dl 05/25/2017 Lipid Ord30 TRIG 117 mg/dL 05/25/2017 Lipid Ord30 LDL 132 mg/dL 05/25/2017 Lipid Ord30 C/HDL 4.2 Ratio 05/25/2017 %Hba1C Yfl758 % HbA1c 94284-9 10.5 % 05/25/2017 %Hba1C Oqy873 Gluc Ave 255 mg/dL 05/25/2017 Microalbumin Bqn421 MicroAlb 95.0 mg/dL 05/25/2017 Review of Systems System Result Effective Dates Constitutional No recent illness 2016 Constitutional No [...] 1994 Ears/Nose/Throat oral cavity/pharynx/larynx Overall: hypopharynx benign 06/15/2017 [...] lips 09/20/2016 None Full Exam - General 1994 Ears/Nose/Throat lips/teeth/gingiva Overall: normal dentition 09/20/2016 None [...] FLU VACC PRSV FREE INC ANTIG CPT-4: 36301 06/02/2016 Vital Signs Date Vital 09/07/2017 Blood Pressure 1: 142/72 Code : 8480-6 Heart Rate 1: 84 bpm Height: 4'11" SpO2: 97% Weight: 08/30/2017 Blood Pressure 1: 188/82 Code : 8480-6 BMI: 24.4 Code : 20969-1 Heart Rate 1 : 79 bpm Height: 4'11" SpO2: 88% Temperature: 38.5 (C) / 101.3 (F) Weight: 121 lbs 08/15/2017 Blood Pressure 1: 166/78 Code : 8480-6 BMI: 22.8 Code : 05412-8 Heart Rate 1 : 71 bpm Height: 4'11" SpO2: 96% Weight: 113 lbs 06/15/2017 Blood Pressure 1: 138/68 Code : 8480-6 BMI: 22.8 Code : 93443-1 Heart Rate 1 : 54 bpm Height: 4'11" SpO2: 98% Weight: 113 lbs 05/29/2017 Blood Pressure 1: 96/46 Code : 8480-6 Blood Pressure 2: 116/57 Code: 8480-6 Heart Rate 1: 54 bpm 05/11/2017 Blood Pressure 1: 144/60 Code : 8480-6 BMI: 23.8 Code : 89249-6 Heart Rate 1 : 68 bpm Height: 4'11" SpO2: 97% Weight: 118 lbs 01/05/2017 Blood Pressure 1: 134/72 Code : 8480-6 BMI: 24.8 Code : 36654-6 Heart Rate 1 : 64 bpm Height: 4'11" SpO2: 94% Weight: 123 lbs 09/20/2016 Blood Pressure 1: 148/66 Code : 8480-6 BMI: 25.4 Code : 51053-7 Heart Rate 1 : 68 bpm Height: 4'11" SpO2: 97% Weight: 126 lbs 09/01/2016 Blood Pressure 1: 162/80 Code : 8480-6 BMI: 26.1 Code : 44241-7 Heart Rate 1 : 75 bpm Height: 4'11" SpO2: 95% Weight: 129 lbs 06/02/2016 Blood Pressure 1: 144/82 Code : 8480-6 BMI: 25.4 Code : 62998-6 Heart Rate 1 : 68 bpm Height: 4'11" SpO2: 98% Weight: 126 lbs 03/25/2016 Blood Pressure 1: 140/58 Code : 8480-6 BMI: 25.9 Code : 18348-1 Heart Rate 1 : 58 bpm Height: 4'11" SpO2: 95% Weight: 128 lbs 01/26/2016 Blood Pressure 1: 138/68 Code : 8480-6 BMI: 26.3 Code : 43855-5 Heart Rate 1 : 66 bpm Height: 4'11" SpO2: 96% Weight: 130 lbs 10/29/2015 Blood Pressure 1: 180/78 Code : 8480-6 BMI: 25.7 Code : 19803-8 Heart Rate 1 : 74 bpm Height: 4'11" SpO2: 97% Weight: 127 lbs 07/21/2015 Blood Pressure 1: 136/70 Code : 8480-6 BMI: 25.9 Code : 04059-4 Heart Rate 1 : 63 bpm Height: 4'11" SpO2: 95% Weight: 128 lbs 07/08/2015 Blood Pressure 1: 140/70 Code : 8480-6 BMI: 26.5 Code : 55183-1 Heart Rate 1 : 59 bpm Height: 4'11" SpO2: 94% Weight: 131 lbs 5 oz 05/04/2015 Blood Pressure 1: 140/60 Code : 8480-6 BMI: 25.7 Code : 66214-1 Heart Rate 1 : 60 bpm Height: 4'11" SpO2: 94% Weight: 127 lbs Functional Status No Functional Status data History of Present Illness Symptom Name Status Result Effective Date Notes weakness Quality bilateral 09/07/2017 None weakness Quality [...] Present Encounters Encounter Performer Location Codes Date 73026 EST. PATIENT, LEVEL III Diagnosis: Weakness[ICD10: R53.1] Diagnosis: Essential (primary) hypertension[ICD10: I10] Elizabeth Sow MD, [facility] CPT-4: 06552 09/07/2017 [id number] EST. PATIENT, LEVEL III Diagnosis: Encounter for follow-up examination after completed treatment for conditions other than malignant neoplasm[ICD10: Z09] Diagnosis: Weakness[ICD10: R53.1] Diagnosis: Essential (primary) hypertension[ICD10: I10] Diagnosis: Dyspnea, unspecified[ICD10: R06.00] Diagnosis: Unsteadiness on feet[ICD10: R26.81] Elizabeth Sow MD, [facility] CPT-4: 76030 08/30/2017 ([id number] 20521 EST. PATIENT, LEVEL IV Diagnosis: Type 2 diabetes mellitus without complications[ICD10: E11.9] Diagnosis: Essential (primary) hypertension[ICD10: I10] Kate Sow MD [facility] CPT-4: 87047 08/15/2017 ([id number]) 34815 EST. PATIENT, LEVEL IV Diagnosis: Type 2 diabetes mellitus without complications[ICD10: E11.9] Diagnosis: Essential (primary) hypertension[ICD10: I10] Diagnosis: Unsteadiness on feet[ICD10: R26.81] Kate Sow MD [facility] CPT-4: 56093 06/15/2017 ([id number]) Miscellaneous no charge Diagnosis: Essential (primary) hypertension[ICD10: I10] Laney Sow MD [facility] CPT-4: 57718 05/29/2017 ([id number]) 48768 EST. PATIENT, LEVEL IV Diagnosis: Type 2 diabetes mellitus without complications[ICD10: E11.9] Diagnosis: Essential (primary) hypertension[ICD10: I10] Diagnosis: Mixed hyperlipidemia[ICD10: E78.2] Kate Sow MD [facility] CPT-4: 72593 05/11/2017 ([id number]) 04421 EST. PATIENT, LEVEL IV Diagnosis: Type 2 diabetes mellitus without complications[ICD10: E11.9] Diagnosis: Essential (primary) hypertension[ICD10: I10] Kate Sow MD [facility] CPT-4: 29076 01/05/2017 ([id number]) 80998 EST. PATIENT, LEVEL III Diagnosis: Essential (primary) hypertension[ICD10: I10] Kate Sow MD [facility] CPT-4: 86627 09/20/2016 ([id number]) 75000 EST. PATIENT, LEVEL III Diagnosis: Essential (primary) hypertension[ICD10: I10] Laney Sow MD [facility] CPT-4: 44153 09/01/2016 ([id number]) Miscellaneous no charge Diagnosis: Impacted cerumen, right ear[ICD10: H61.21] Elizabeth Sow MD [facility] CPT-4: 88660 06/08/2016 ([id number]) 93111 EST. PATIENT, LEVEL IV Diagnosis: Type 2 diabetes mellitus without complications[ICD10: E11.9] Diagnosis: Essential (primary) hypertension[ICD10: I10] Diagnosis: Encounter for immunization[ICD10: Z23] Kate Sow MD, [facility] CPT-4: 22539 06/02/2016 [id number] EST. PATIENT, LEVEL III Diagnosis: Essential (primary) hypertension[ICD10: I10] Diagnosis: Other specified cardiac arrhythmias[ICD10: I49.8] Elizabeth Sow MD, [facility] CPT-4: 64130 03/25/2016 ([id number]) 43511 EST. PATIENT, LEVEL IV Diagnosis: Type 2 diabetes mellitus without complications[ICD10: E11.9] Diagnosis: Essential (primary) hypertension[ICD10: I10] Kate Sow MD [facility] CPT-4: 00991 01/26/2016 ([id number]) 24534 EST. PATIENT, LEVEL IV Diagnosis: Essential (primary) hypertension[ICD10: I10] Diagnosis: Type 2 diabetes mellitus without complications[ICD10: E11.9] Kate Sow MD, [facility] CPT-4: 38930 10/29/2015 ([id number]) 56653 EST. PATIENT, LEVEL IV Diagnosis: Essential (primary) hypertension[ICD10: I10] Diagnosis: Dyspnea, unspecified[ICD10: R06.00] Kate Sow MD, [facility] CPT-4: 90522 07/21/2015 ([id number]) 15196 EST. PATIENT, LEVEL III Diagnosis: Edema, unspecified[ICD10: R60.9] Kate Sow MD, [facility] CPT-4: 32896 07/08/2015 ([id number]) OFFICE VISIT, NEW - LEVEL 4 Diagnosis: ESSENTIAL HYPERTENSION[ICD9: 401.9] Diagnosis: DIABETES TYPE II[ICD9: 250.00] Kate Sow MD, [facility] CPT- 4: 16181 05/04/2015 Plan of Care Planned Activity Notes Codes Status Date Visit Plan: Weakness - improved - pt is to continue with therapy and notify clinic with any changes, questions, or concerns. Hypertension - well controlled - continue with current medications, continue with no added salt diet. Pt has been encouraged to exercise daily. The pt has been advised to call the office if there are any acute concerns about change in blood pressure readings at home. 09/07/2017 [facility] [phone] [facility] [place] (30 min) Complex 09/07/2017 Patient Education: Patient Medication Summary Completed 09/07/2017 [facility] [phone] [facility] [place] (15 min) Moderate 09/05/2017 Visit Plan: Hospital follow up - Dr. Sow in to see pt - pt was in the hospital with uncontrolled hypertension and a. fib - controlled at this time - persistent weakness requiring ongoing PT and assistance with some ADLs and medication management - will admit pt to half-way facility for ongoing rehabilitation. 08/30/2017 App[facility]ment: [facility] [phone] [facility] [place] (30 min) Complex 08/30/2017 Patient Education: Patient Medication Summary Completed 08/30/2017 [facility]: [facility] [phone] [facility] [place] (15 min) Moderate 08/29/2017 Visit Plan: Diabetes Mellitus - uncontrolled - per patient report - but I have recommended labs prior to her starting medication changes. I have recommended that the patient needs to have diabetic education - she reports large amounts of carbohydrates being eaten at breakfast and lunch and supper. She reports that she has been to diabetic education in the past, but her would like to attend with her if they can attend again. I have recommended for the patient to have follow up labs prior to the next office visit. The patient has been instructed to continue with current medications as previously directed, continue with regular FSBS monitoring to assure continued control of diabetes. Pt to call for any acute concerns, complaints, or if the blood glucose readings are starting to become less controlled. Hypertension - well controlled - continue with current medications, continue with no added salt diet. Pt has been encouraged to exercise daily. The pt has been advised to call the office if there are any acute concerns about change in blood pressure readings at home. 08/15/2017 App[facility]: [facility] [phone] [facility] [place] (15 min) Moderate 08/15/2017 Patient Education: Patient Medication Summary Completed 08/15/2017 Care Plan: %Hba1C LOINC : 88956-6 Cancelled 08/15/2017 [facility] [phone] [facility] Patient's informed. Completed 06/26/2017 Visit Plan: Diabetes Mellitus - Uncontrolled - per recent FSBS reports. I have recommended for the patient to have follow up labs prior to the next office visit. The patient has been instructed to continue with current medications as previously directed, continue with regular FSBS monitoring to assure continued control of diabetes. Pt to call for any acute concerns, complaints, or if the blood glucose readings are starting to become less controlled. I have recommended for the patient to follow more strictly to the diabetic diet as discussed in clinic to allow for greater blood glucose control. Gait Instability - referral to [facility] for gait instability. Hypertension - well controlled - continue with current medications , continue with no added salt diet. Pt has been encouraged to exercise daily. The pt has been advised to call the office if there are any acute concerns about change in blood pressure readings at home. 06/15/2017 Appointment: Kate Sow WPtel: [facility] [place] (15 min) Moderate 06/15/2017 Patient Education: Patient Medication Summary Completed 06/15/2017 Care Plan: Referral Order SNOMED-CT : [id number] Pending 06/15/2017 Appointment: Nurse Visit 05/29/2017 Patient Education: Patient Medication Summary Completed 05/29/2017 Patient Education: Hypertension Completed 05/29/2017 Visit Plan: Hypertension - well controlled - continue with current medications, continue with no added salt diet. Pt has been encouraged to exercise daily. The pt has been advised to call the office if there are any acute concerns about change in blood pressure readings at home. Diabetes Mellitus - controlled - per recent FSBS reports. I have recommended for the patient to have follow up labs prior to the next office visit. The patient has been instructed to continue with current medications as previously directed, continue with regular FSBS monitoring to assure continued control of diabetes. Pt to call for any acute concerns, complaints, or if the blood glucose readings are starting to become less controlled. you need to see your eye doctor to get a dilated eye exam for complete diabetes health checks - this needs to be done every year - please have a copy sent to this office. GET YOUR NEXT SET OF LABS DONE AFTER - these need to be fasting labs - don't eat after midnight and come in here or go to [facility] or [facility] to get this set of labs done. Hyperlipidemia - pt has been counseled about appropriate diet, exercise, and need for low fat food choices. I have discussed the need for the patient to take medications as prescribed. If the patient has negative side effects from the medication, they are to CALL the office and not abruptly discontinue the medication without discussion with a practitioner in the office. We will check labs in 3-6 months for follow up on the patient's chronic medical problem and to assure normal liver response to medications. Continue with Statin 05/11/2017 Appointment: [facility] [phone] [facility] (15 min) Moderate 05/11/2017 Patient Education: Patient Medication Summary Completed 05/11/2017 Visit Plan: Hypertension - well controlled - continue with current medications, continue with no added salt diet. Pt has been encouraged to exercise daily. The pt has been advised to call the office if there are any acute concerns about change in blood pressure readings at home. Diabetes Mellitus - Uncontrolled - per recent FSBS reports. I have recommended for the patient to have follow up labs prior to the next office visit. The patient has been instructed to continue with current medications as previously directed, continue with regular FSBS monitoring to assure continued control of diabetes. Pt to call for any acute concerns, complaints, or if the blood glucose readings are starting to become less controlled. I have recommended for the patient to follow more strictly to the diabetic diet as discussed in clinic to allow for greater blood glucose control. Dr. Johnson manages - she was started on januvia 100mg 1/2 pill daily. 01/05/2017 Appointment: [facility] [phone] [facility] (15 min) Moderate 01/05/2017 Patient Education: Patient Medication Summary Completed 01/05/2017 Visit Plan: Hypertension - well controlled - continue with current medications, continue with no added salt diet. Pt has been encouraged to exercise daily. The pt has been advised to call the office if there are any acute concerns about change in blood pressure readings at home. 09/20/2016 Appointment: Kate Sow WPtel: [phone] [facility] (30 min) Complex 09/20/2016 Patient Education: Patient Medication Summary Completed 09/20/2016 Visit Plan: Hypertension - uncontrolled - the patient's medications have been modified as documented in the visit note. The patient has been counseled to cut back on salt in diet for a no added salt diet, low fat diet, start an exercise program with low weight bearing exercises and higher aerobic activity for heart health. The patient is to check blood pressure readings as an outpatient and either fax, call, or email the readings to the office next week for practitioner to review. The pt is to call for acute concerns. 09/01/2016 Appointment: Laney Mcmillan WPtel: [phone] [phone] (30 min) Complex 09/01/2016 Patient Education: Patient Medication Summary Completed 09/01/2016 Appointment: Kaet Sow WPtel: [phone] [facility] (15 min) Moderate 08/31/2016 Appointment: Nurse Visit 06/08/2016 Patient Education: Patient Medication Summary Completed 06/08/2016 Visit Plan: Hypertension - well controlled - continue with current medications, continue with no added salt diet. Pt has been encouraged to exercise daily. The pt has been advised to call the office if there are any acute concerns about change in blood pressure readings at home. flu shot today Diabetes Mellitus - controlled - per recent FSBS reports. I have recommended for the patient to have follow up labs prior to the next office visit. The patient has been instructed to continue with current medications as previously directed, continue with regular FSBS monitoring to assure continued control of diabetes. Pt to call for any acute concerns, complaints, or if the blood glucose readings are starting to become less controlled. 06/02/2016 Appointment: Kate Sow WPtel: [phone] [facility] (15 min) Moderate 06/02/2016 Patient Education: Patient Medication Summary Completed 06/02/2016 Patient Education: Hypertension Completed 06/02/2016 Visit Plan: Bradycardia - reports pt has brought in indicates that the pt has been having a pulse in the 40s-50s. Will adjust medications, pt is to notify clinic if her symptoms do not improve, or with any concerns. 03/25/2016 Appointment: Laney Mcmillan WPtel: [facility] [phone] (10 min) Simple 03/25/2016 Patient Education: Patient Medication Summary Completed 03/25/2016 Patient Education: Hypertension Completed 03/25/2016 Visit Plan: Hypertension - well controlled - continue with current medications, continue with no added salt diet. Pt has been encouraged to exercise daily. The pt has been advised to call the office if there are any acute concerns about change in blood pressure readings at home. DM - managed by Dr. Johnson from [place] 01/26/2016 Patient Education: Patient Medication Summary Completed 01/26/2016 Patient Education: Hypertension Completed 01/26/2016 Appointment: Laney Mcmillan WPtel: [facility] [place] [phone] (30 min) Complex 12/31/2015 Visit Plan: Hypertension - uncontrolled - the patient's medications have been modified as documented in the visit note. The patient has been counseled to cut back on salt in diet for a no added salt diet, low fat diet, start an exercise program with low weight bearing exercises and higher aerobic activity for heart health. The patient is to check blood pressure readings as an outpatient and either fax, call, or email the readings to the office next week for practitioner to review. The pt is to call for acute concerns. Diabetes Mellitus - controlled - per recent FSBS reports. I have recommended for the patient to have follow up labs prior to the next office visit. The patient has been instructed to continue with current medications as previously directed, continue with regular FSBS monitoring to assure continued control of diabetes. Pt to call for any acute concerns, complaints, or if the blood glucose readings are starting to become less controlled. 10/29/2015 Appointment: Kate Sow WPtel: [facility] [place] (15 min) Moderate 10/29/2015 Patient Education: Patient Medication Summary Completed 10/29/2015 Patient Education: Hypertension Completed 10/29/2015 Appointment: [phone] (15 min) Moderate 09/14/2015 Visit Plan: Hypertension - well controlled - continue with current medications, continue with no added salt diet. Pt has been encouraged to exercise daily. The pt has been advised to call the office if there are any acute concerns about change in blood pressure readings at home. Dyspnea - continue with lasix, monitor symptoms, call if not improving. 07/21/2015 Patient Education: Patient Medication Summary Completed 07/21/2015 Patient Education: Hypertension Completed 07/21/2015 Visit Plan: Edema - pt has been advised to elevate legs to prevent dependent edema, compression has been recommended to help to naturally decrease peripheral edema. Diuretic use has been discussed and pt has been instructed in appropriate use of such medication as necessary to further attempt to reduce peripheral edema. take lasix today, as soon as you get to [place], monday morning, then start taking the lasix three days a week on Monday, Monday, take potassium today, , monday, then take the potssium on monday, monday and with the lasix 07/08/2015 Appointment: Nurse Visit 07/08/2015 Patient Education: Patient Medication Summary Completed 07/08/2015 Visit Plan: Hypertension - well controlled - continue with current medications, continue with no added salt diet. Pt has been encouraged to exercise daily. The pt has been advised to call the office if there are any acute concerns about change in blood pressure readings at home. Diabetes Mellitus - controlled - per recent FSBS reports. I have recommended for the patient to have follow up labs prior to the next office visit. The patient has been instructed to continue with current medications as previously directed, continue with regular FSBS monitoring to assure continued control of diabetes. Pt to call for any acute concerns, complaints, or if the blood glucose readings are starting to become less controlled. Back pain - recommended the following: Stretching and exercises for back- follow instructions from handout Begin using muscle rub on back (Lasara balm) 05/04/2015 Appointment: [facility]el[phone] [place] New Patient 05/04/2015 Patient Education: Patient Medication Summary Completed 05/04/2015 Patient Education: Hypertension Completed 05/04/2015 [facility] [place] Referral Appointment Requested Instructions Comment see if Dr. Johnson has the toujeo samples for you - if not , go to the pharmacy to shrimp picker the toujeo script. if the toujeo script is too expensive , call the office and we will give you a sample of basaglar or levemir or lantus to get you through until you can get the samples from dr. johnson . Diabetes Mellitus - Uncontrolled - per recent FSBS reports. I have recommended for the patient to have follow up labs prior to the next office visit. The patient has been instructed to continue with current medications as previously directed, continue with regular FSBS monitoring to assure continued control of diabetes. Pt to call for any acute concerns, complaints, or if the blood glucose readings are starting to become less controlled. I have recommended for the patient to follow more strictly to the diabetic diet as discussed in clinic to allow for greater blood glucose control. Gait Instability - referral to [facility] physical therapy for gait instability. Hypertension - well controlled - continue with current medications, continue with no added salt diet. Pt has been encouraged to exercise daily. The pt has been advised to call the office if there are any acute concerns about change in blood pressure readings at home. . Hypertension - well controlled - continue with current medications, continue with no added salt diet. Pt has been encouraged to exercise daily. The pt has been advised to call the office if there are any acute concerns about change in blood pressure readings at home. Diabetes Mellitus - Uncontrolled - per recent FSBS reports. I have recommended for the patient to have follow up labs prior to the next office visit. The patient has been instructed to continue with current medications as previously directed, continue with regular FSBS monitoring to assure continued control of diabetes. Pt to call for any acute concerns, complaints, or if the blood glucose readings are starting to become less controlled. I have recommended for the patient to follow more strictly to the diabetic diet as discussed in clinic to allow for greater blood glucose control. Dr. Johnson manages - she was started on januvia 100mg 1/2 pill daily. . Diabetes Mellitus - uncontrolled - per patient report - but I have recommended labs prior to her starting medication changes. I have recommended that the patient needs to have diabetic education - she reports large amounts of carbohydrates being eaten at breakfast and lunch and supper. She reports that she has been to diabetic education in the past, but her would like to attend with her if they can attend again. I have recommended for the patient to have follow up labs prior to the next office visit. The patient has been instructed to continue with current medications as previously directed, continue with regular FSBS monitoring to assure continued control of diabetes. Pt to call for any acute concerns, complaints, or if the blood glucose readings are starting to become less controlled. Hypertension - well controlled - continue with current medications, continue with no added salt diet. Pt has been encouraged to exercise daily. The pt has been advised to call the office if there are any acute concerns about change in blood pressure readings at home. . Hypertension - uncontrolled - the patient's medications have been modified as documented in the visit note. The patient has been counseled to cut back on salt in diet for a no added salt diet, low fat diet, start an exercise program with low weight bearing exercises and higher aerobic activity for heart health. The patient is to check blood pressure readings as an outpatient and either fax , call, or email the readings to the office next week for practitioner to review. The pt is to call for acute concerns. . Weakness - improved - pt is to continue with therapy and notify clinic with any changes, questions, or concerns. Hypertension - well controlled - continue with current medications, continue with no added salt diet. Pt has been encouraged to exercise daily. The pt has been advised to call the office if there are any acute concerns about change in blood pressure readings at home. . Hypertension - well controlled - continue with current medications, continue with no added salt diet. Pt has been encouraged to exercise daily. The pt has been advised to call the office if there are any acute concerns about change in blood pressure readings at home. take lasix today, as soon as you get to [place], monday morning, then start taking the lasix three days a week on Monday, Monday , take potassium today, , monday, then take the potssium on monday, monday and with the lasix . Edema - pt has been advised to elevate legs to prevent dependent edema, compression has been recommended to help to naturally decrease peripheral edema. Diuretic use has been discussed and pt has been instructed in appropriate use of such medication as necessary to further attempt to reduce peripheral edema. take lasix today, as soon as you get to [place], monday morning, then start taking the lasix three days a week on Monday, Monday, take potassium today, , monday, then take the potssium on monday, monday and with the lasix . Hospital follow up - Dr. Sow in to see pt - pt was in the hospital with uncontrolled hypertension and a. fib - controlled at this time - persistent weakness requiring ongoing PT and assistance with some ADLs and medication management - will admit pt to half-way facility for ongoing rehabilitation. . Bradycardia - reports pt has brought in indicates that the pt has been having a pulse in the 40s-50s. Will adjust medications, pt is to notify clinic if her symptoms do not improve, or with any concerns. . Hypertension - well controlled - continue with current medications, continue with no added salt diet. Pt has been encouraged to exercise daily. The pt has been advised to call the office if there are any acute concerns about change in blood pressure readings at home. DM - managed by Dr. Johnson from [place] . Hypertension - well controlled - continue with current medications, continue with no added salt diet. Pt has been encouraged to exercise daily. The pt has been advised to call the office if there are any acute concerns about change in blood pressure readings at home. flu shot today Diabetes Mellitus - controlled - per recent FSBS reports. I have recommended for the patient to have follow up labs prior to the next office visit. The patient has been instructed to continue with current medications as previously directed, continue with regular FSBS monitoring to assure continued control of diabetes. Pt to call for any acute concerns, complaints, or if the blood glucose readings are starting to become less controlled. you need to see your eye doctor to get a dilated eye exam for complete diabetes health checks - this needs to be done every year - please have a copy sent to this office. GET YOUR NEXT SET OF LABS DONE AFTER - these need to be fasting labs - don't eat after midnight and come in here or go to [facility] or [facility] to get this set of labs done. . Hypertension - well controlled - continue with current medications, continue with no added salt diet. Pt has been encouraged to exercise daily. The pt has been advised to call the office if there are any acute concerns about change in blood pressure readings at home. Diabetes Mellitus - controlled - per recent FSBS reports. I have recommended for the patient to have follow up labs prior to the next office visit. The patient has been instructed to continue with current medications as previously directed, continue with regular FSBS monitoring to assure continued control of diabetes. Pt to call for any acute concerns, complaints, or if the blood glucose readings are starting to become less controlled. you need to see your eye doctor to get a dilated eye exam for complete diabetes health checks - this needs to be done every year - please have a copy sent to this office. GET YOUR NEXT SET OF LABS DONE AFTER - these need to be fasting labs - don't eat after midnight and come in here or go to [facility] or [facility] to get this set of labs done. Hyperlipidemia - pt has been counseled about appropriate diet, exercise, and need for low fat food choices. I have discussed the need for the patient to take medications as prescribed. If the patient has negative side effects from the medication, they are to CALL the office and not abruptly discontinue the medication without discussion with a practitioner in the office. We will check labs in 3-6 months for follow up on the patient's chronic medical problem and to assure normal liver response to medications. Continue with Statin . Hypertension - well controlled - continue with current medications, continue with no added salt diet. Pt has been encouraged to exercise daily. The pt has been advised to call the office if there are any acute concerns about change in blood pressure readings at home. Dyspnea - continue with lasix, monitor symptoms, call if not improving. hold flonase x 3 days - come to the office on monday for blood pressure check - if your pressure is still high, we will adjust your blood pressure medicaitons. if your blood pressure is normal, we will have to use something else to control your allergies. . Hypertension - uncontrolled - the patient's medications have been modified as documented in the visit note. The patient has been counseled to cut back on salt in diet for a no added salt diet, low fat diet, start an exercise program with low weight bearing exercises and higher aerobic activity for heart health. The patient is to check blood pressure readings as an outpatient and either fax , call, or email the readings to the office next week for practitioner to review. The pt is to call for acute concerns. Diabetes Mellitus - controlled - per recent FSBS reports. I have recommended for the patient to have follow up labs prior to the next office visit. The patient has been instructed to continue with current medications as previously directed, continue with regular FSBS monitoring to assure continued control of diabetes. Pt to call for any acute concerns, complaints, or if the blood glucose readings are starting to become less controlled. Stretching and exercises for back- follow instructions from handout Begin using muscle rub on back (Lasara balm) Begin taking Lasix again No blood work needed, was done in ER recently . Hypertension - well controlled - continue with current medications, continue with no added salt diet. Pt has been encouraged to exercise daily. The pt has been advised to call the office if there are any acute concerns about change in blood pressure readings at home. Diabetes Mellitus - controlled - per recent FSBS reports. I have recommended for the patient to have follow up labs prior to the next office visit. The patient has been instructed to continue with current medications as previously directed, continue with regular FSBS monitoring to assure continued control of diabetes. Pt to call for any acute concerns, complaints, or if the blood glucose readings are starting to become less controlled. Back pain - recommended the following: Stretching and exercises for back- follow instructions from handout Begin using muscle rub on back (Lasara balm)
--- OUTSIDE RECORDS SUMMARY | 2017-12-13 00:44 | XMS REPORT | CCD ---
Author Author Kate Sow Organization [facility] Address [address] [place] [address] Phone Care Team Providers Care Urban Planning Teacher Name Role Phone PP Unavailable CCM Unavailable Summary Purpose Interface Exchange Insurance Providers Payer name Policy type / Coverage type Covered alliance party ID Effective Begin Date Effective End Date WPS Medicare Part B Medicare Part B [id number] Unknown Unknown [employer] Medicare Part B [id number] Unknown Unknown Family history Mother Diagnosis Age [...] Unknown 2 05/04/[address]: 715162598 Never smoker 05/04/2015 Alcohol history Unknown occasionally [...] Fill Instructions losartan 50 mg tablet RxNorm: 818461 1 Tablet(s) PO QAM 201603/12/2018 Active Lasix 20 mg tablet RxNorm: 800163 1 Tablet(s) PO daily 2016 No Stop Date Active potassium chloride ER 10 mEq tablet,extended release RxNorm: 371073 1 Tablet(s) PO daily while on the Lasix 08/30/2017 Inactive Toujeo SoloStar 300 unit/mL (1.5 mL) subcutaneous insulin pen RxNorm: 4381566 35 Unit(s) SQ QHS MANAGED BY DR. JOHNSON 06/15/2017 10/12/2017 Active Eliquis 5 mg tablet RxNorm: 8744455 TAKE ONE TABLET BY MOUTH TWICE DAILY 03/01/2017 02/23/2018 Active Januvia 100 mg tablet RxNorm: 737818 1/2 Tablet(s) PO daily 04/04/2017 Inactive losartan 50 mg tablet RxNorm: 008724 1 Tablet(s) PO BID 201509/13/2017 Inactive amlodipine 10 mg tablet RxNorm: 381695 1 Tablet(s) PO daily 06/14/2017 Inactive generic for NORVASC losartan 50 mg tablet RxNorm: 368039 1 Tablet(s) PO daily 201508/31/2016 Inactive Toujeo SoloStar 300 unit/mL (1.5 mL) subcutaneous insulin pen RxNorm: 6844918 40 Unit(s) SQ QHS MANAGED BY DR. JOHNSON 07/01/2016 06/14/2017 Inactive Humalog 100 unit/mL subcutaneous solution RxNorm: 398149 15 Unit(s) SQ AC MANAGED BY DR. JHONSON 06/02/2016 No Stop Date Active Toujeo SoloStar 300 unit/mL (1.5 mL) subcutaneous insulin pen RxNorm: 5617876 35 Unit(s) SQ QHS MANAGED BY DR. JOHNSON 06/02/2016 06/30/2016 Inactive carvedilol 3.125 mg tablet RxNorm: 441427 1 Tablet(s) PO BID 04/23/2016 Inactive simvastatin 40 mg tablet RxNorm: 179953 1 Tablet(s) PO QHS 01/29/2017 Inactive Humalog 100 unit/mL subcutaneous solution RxNorm: 321719 13 Unit(s) SQ AC MANAGED BY DR. JOHNSON 01/26/2016 06/01/2016 Inactive Eliquis 5 mg tablet RxNorm: 2266410 1 Tablet(s) PO BID 201501/13/2017 Inactive carvedilol 6.25 mg tablet RxNorm: 325100 1 Tablet(s) PO BID 2016 Inactive Humalog 100 unit/mL subcutaneous solution RxNorm: 163224 Unit(s) SQ UD as directed by office 08/07/2015 01/25/2016 Inactive Klor-Con 10 mEq tablet,extended release RxNorm: 965538 1 Tablet(s) PO daily as needed 06/26/2015 10/23/2015 Inactive Lasix 20 mg tablet RxNorm: 567657 1 Tablet(s) PO daily as needed 06/26/2015 10/23/2015 Inactive fluticasone 50 mcg/actuation nasal spray,suspension RxNorm: 804946 2 [place] NASAL daily No Start Date Active Multaq 400 mg tablet RxNorm: 987191 1 Tablet(s) PO BID No Start Date Active cetirizine 10 mg tablet RxNorm: 2471320 1 Tablet(s) PO daily No Start Date Active Norvasc 2.5 mg tablet RxNorm: 982623 1 Tablet(s) PO daily No Start Date Active losartan 25 mg tablet RxNorm: 272333 1 Tablet(s) PO daily No Start Date 08/31/2016 Inactive losartan 100 mg tablet RxNorm: 290949 1 Tablet(s) PO daily No Start Date 06/30/2016 Inactive Klor-Con 10 mEq tablet,extended release RxNorm: 971938 1 Tablet(s) PO daily as needed No Start Date 06/25/2015 Inactive simvastatin 40 mg tablet RxNorm: 499635 1 Tablet(s) PO daily No Start Date 02/04/2016 Inactive carvedilol 6.25 mg tablet RxNorm: 238045 1 Tablet(s) PO BID No Start Date 11/30/2015 Inactive Eliquis 5 mg tablet RxNorm: 5172606 1 Tablet(s) PO BID No Start Date 01/19/2016 Inactive Toujeo SoloStar 300 unit/mL (1.5 mL) subcutaneous insulin pen RxNorm: 9382748 33 Unit(s) SQ QHS MANAGED BY DR. JOHNSON No Start Date 06/01/2016 Inactive Lasix 20 mg tablet RxNorm: 396479 1 Tablet(s) PO daily as needed No Start Date 06/25/2015 Inactive Humalog 100 unit/mL subcutaneous solution RxNorm: 955784 10 Unit(s) SQ TID No Start Date 08/06/2015 Inactive amlodipine 5 mg tablet RxNorm: 895284 1 Tablet(s) PO daily No Start Date [...] 31.2 pg 05/25/2017 Cbc With Differential Ord2 [place]% 8.9 % 05/25/2017 Cbc With Differential Ord2 MCHC 33.8 pg 05/25/2017 Cbc With Differential Ord2 Eos% 9.7 % 05/25/2017 Cbc With Differential Ord2 PLT 493 K/ul 05/25/2017 Cbc With Differential Ord2 Baso% 3.6 % 05/25/2017 Cbc With Differential Ord2 RDW 16.3 % 05/25/2017 Cbc With Differential Ord2 Neut ABS# 2.65 K/ul 05/25/2017 Cbc With Differential Ord2 Lymph ABS# 3.78 K/ul 05/25/2017 Cbc With Differential Ord2 [place] ABS# 0.7 K/ul 05/25/2017 Cbc With Differential Ord2 Eos ABS# 0.8 K/ul 05/25/2017 Cbc With Differential Ord2 Baso ABS# 0.3 K/ul 05/25/2017 Manual Differential Ord52 D-Neutr 50 % 05/25/2017 Manual Differential Ord52 D-Lymph 38 % 05/25/2017 Manual Differential Ord52 D-Eos 10 % 05/25/2017 Manual Differential Ord52 D-1 2 NRBC 05/25/2017 Comp Metabolic Wfn123 NA 140 mEq/L 05/25/2017 Comp Metabolic Kka660 K 4.0 mEq/L 05/25/2017 Comp Metabolic Yip771 CL 107 mEq/L 05/25/2017 Comp Metabolic Irw019 CO2 22.0 mEq/L 05/25/2017 Comp Metabolic Qvk019 ANION GAP 15 05/25/2017 Comp Metabolic Crq450 GLUCOSE 97 mg/dL 05/25/2017 Comp Metabolic Wua446 Creat 0.9 mg/dL 05/25/2017 Comp Metabolic Lrd124 eGFR 61 ml/min/1.73m2 05/25/2017 Comp Metabolic Wsk727 BUN 16 mg/dL 05/25/2017 Comp Metabolic Jce136 B/C Ratio 17.4 Ratio 05/25/2017 Comp Metabolic Zjc741 CALCIUM 9.1 mg/dL 05/25/2017 Comp Metabolic Gcz971 ALK PHOS 109 U/L 05/25/2017 Comp Metabolic Elg344 AST(SGOT) 19 U/L 05/25/2017 Comp Metabolic Mhr166 ALT(SGPT) 17 U/L 05/25/2017 Comp Metabolic Xvc214 BILI T 0.4 mg/dL 05/25/2017 Comp Metabolic Nav315 ALBUMIN 3.3 g/dL 05/25/2017 Comp Metabolic Pfy756 TPRO 6.0 g/dL 05/25/2017 Comp Metabolic Uut378 GLOB 2.7 g/dL 05/25/2017 Comp Metabolic Cji953 A/G Ratio 1.2 Ratio 05/25/2017 Comp Metabolic Cdg169 Osmo 281 mOsmo 05/25/2017 Lipid Ord30 CHOL 204 mg/dL 05/25/2017 Lipid Ord30 HDL 49.0 mg/dl 05/25/2017 Lipid Ord30 TRIG 117 mg/dL 05/25/2017 Lipid Ord30 LDL 132 mg/dL 05/25/2017 Lipid Ord30 C/HDL 4.2 Ratio 05/25/2017 %Hba1C Har873 % HbA1c 12159-4 10.5 % 05/25/2017 %Hba1C Iab950 Gluc Ave 255 mg/dL 05/25/2017 Microalbumin Zse546 MicroAlb 95.0 mg/dL 05/25/2017 Review of Systems [...] FLU VACC PRSV FREE INC ANTIG CPT-4: 89907 06/02/2016 Vital Signs Date Vital 09/07/2017 Blood Pressure 1: 142/72 Code : 8480-6 Heart Rate 1: 84 bpm Height: 4'11" SpO2: 97% Weight: 08/30/2017 Blood Pressure 1: 188/82 Code : 8480-6 BMI: 24.4 Code : 64929-9 Heart Rate 1 : 79 bpm Height: 4'11" SpO2: 88% Temperature: 38.5 (C) / 101.3 (F) Weight: 121 lbs 08/15/2017 Blood Pressure 1: 166/78 Code : 8480-6 BMI: 22.8 Code : 05419-5 Heart Rate 1 : 71 bpm Height: 4'11" SpO2: 96% Weight: 113 lbs 06/15/2017 Blood Pressure 1: 138/68 Code : 8480-6 BMI: 22.8 Code : 48669-3 Heart Rate 1 : 54 bpm Height: 4'11" SpO2: 98% Weight: 113 lbs 05/29/2017 Blood Pressure 1: 96/46 Code : 8480-6 Blood Pressure 2: 116/57 Code: 8480-6 Heart Rate 1: 54 bpm 05/11/2017 Blood Pressure 1: 144/60 Code : 8480-6 BMI: 23.8 Code : 99394-8 Heart Rate 1 : 68 bpm Height: 4'11" SpO2: 97% Weight: 118 lbs 01/05/2017 Blood Pressure 1: 134/72 Code : 8480-6 BMI: 24.8 Code : 50611-5 Heart Rate 1 : 64 bpm Height: 4'11" SpO2: 94% Weight: 123 lbs 09/20/2016 Blood Pressure 1: 148/66 Code : 8480-6 BMI: 25.4 Code : 54217-6 Heart Rate 1 : 68 bpm Height: 4'11" SpO2: 97% Weight: 126 lbs 09/01/2016 Blood Pressure 1: 162/80 Code : 8480-6 BMI: 26.1 Code : 19655-1 Heart Rate 1 : 75 bpm Height: 4'11" SpO2: 95% Weight: 129 lbs 06/02/2016 Blood Pressure 1: 144/82 Code : 8480-6 BMI: 25.4 Code : 77431-4 Heart Rate 1 : 68 bpm Height: 4'11" SpO2: 98% Weight: 126 lbs 03/25/2016 Blood Pressure 1: 140/58 Code : 8480-6 BMI: 25.9 Code : 68858-2 Heart Rate 1 : 58 bpm Height: 4'11" SpO2: 95% Weight: 128 lbs 01/26/2016 Blood Pressure 1: 138/68 Code : 8480-6 BMI: 26.3 Code : 13777-4 Heart Rate 1 : 66 bpm Height: 4'11" SpO2: 96% Weight: 130 lbs 10/29/2015 Blood Pressure 1: 180/78 Code : 8480-6 BMI: 25.7 Code : 53373-6 Heart Rate 1 : 74 bpm Height: 4'11" SpO2: 97% Weight: 127 lbs 07/21/2015 Blood Pressure 1: 136/70 Code : 8480-6 BMI: 25.9 Code : 72149-3 Heart Rate 1 : 63 bpm Height: 4'11" SpO2: 95% Weight: 128 lbs 07/08/2015 Blood Pressure 1: 140/70 Code : 8480-6 BMI: 26.5 Code : 45363-0 Heart Rate 1 : 59 bpm Height: 4'11" SpO2: 94% Weight: 131 lbs 5 oz 05/04/2015 Blood Pressure 1: 140/60 Code : 8480-6 BMI: 25.7 Code : 16167-7 Heart Rate 1 : 60 bpm Height: [...] Present Encounters Encounter Performer Location Codes Date EST. PATIENT, LEVEL III Diagnosis: Weakness[ICD10: R53.1] Diagnosis: Essential (primary) hypertension[ICD10: I10] Elizabeth Swo MD, [facility] CPT-4: 10883 09/07/2017 20048 EST. PATIENT, LEVEL III Diagnosis: Encounter for follow-up examination after completed treatment for conditions other than malignant neoplasm[ICD10: Z09] Diagnosis: Weakness[ICD10: R53.1] Diagnosis: Essential (primary) hypertension[ICD10: I10] Diagnosis: Dyspnea, unspecified[ICD10: R06.00] Diagnosis: Unsteadiness on feet[ICD10: R26.81] Elizabeth Sow MD, [facility] CPT-4: 23841 08/30/2017 ([id number]) 03707 EST. PATIENT, LEVEL IV Diagnosis: Type 2 diabetes mellitus without complications[ICD10: E11.9] Diagnosis: Essential (primary) hypertension[ICD10: I10] Kate Sow MD [facility] CPT-4: 81365 08/15/2017 ([id number]) 48969 EST. PATIENT, LEVEL IV Diagnosis: Type 2 diabetes mellitus without complications[ICD10: E11.9] Diagnosis: Essential (primary) hypertension[ICD10: I10] Diagnosis: Unsteadiness on feet[ICD10: R26.81] Kate Sow MD [facility] CPT-4: 96670 06/15/2017 ([id number]) Miscellaneous no charge Diagnosis: Essential (primary) hypertension[ICD10: I10] Laney Sow MD [facility] CPT-4: 61913 05/29/2017 ([id number]) 23286 EST. PATIENT, LEVEL IV Diagnosis: Type 2 diabetes mellitus without complications[ICD10: E11.9] Diagnosis: Essential (primary) hypertension[ICD10: I10] Diagnosis: Mixed hyperlipidemia[ICD10: E78.2] Kate Sow MD [facility] CPT-4: 43375 05/11/2017 ([id number]) 45494 EST. PATIENT, LEVEL IV Diagnosis: Type 2 diabetes mellitus without complications[ICD10: E11.9] Diagnosis: Essential (primary) hypertension[ICD10: I10] Kate Sow MD [facility] CPT-4: 33631 01/05/2017 ([id number]) 23302 EST. PATIENT, LEVEL III Diagnosis: Essential (primary) hypertension[ICD10: I10] Kate Sow MD [facility] CPT-4: 07271 09/20/2016 ([id number]) 60168 EST. PATIENT, LEVEL III Diagnosis: Essential (primary) hypertension[ICD10: I10] Laney Sow MD [facility] CPT-4: 62471 09/01/2016 ([id number]) Miscellaneous no charge Diagnosis: Impacted cerumen, right ear[ICD10: H61.21] Elizabeth Sow MD [facility] CPT-4: 00778 06/08/2016 ([id number]) 21518 EST. PATIENT, LEVEL IV Diagnosis: Type 2 diabetes mellitus without complications[ICD10: E11.9] Diagnosis: Essential (primary) hypertension[ICD10: I10] Diagnosis: Encounter for immunization[ICD10: Z23] [facility] CPT-4: 90379 06/02/2016 05329 EST. PATIENT, LEVEL III Diagnosis: Essential (primary) hypertension[ICD10: I10] Diagnosis: Other specified cardiac arrhythmias[ICD10: I49.8] [facility] CPT-4: 93001 03/25/2016 ([id number]) 20458 EST. PATIENT, LEVEL IV Diagnosis: Type 2 diabetes mellitus without complications[ICD10: E11.9] Diagnosis: Essential (primary) hypertension[ICD10: I10] MARIANN Wong MD CPT-4: 43925 01/26/2016 ([id number]) 09414 EST. PATIENT, LEVEL IV Diagnosis: Essential (primary) hypertension[ICD10: I10] Diagnosis: Type 2 diabetes mellitus without complications[ICD10: E11.9] Kate Sow MD, MARI[facility] CPT-4: 61658 10/29/2015 ([id number]) 68316 EST. PATIENT, LEVEL IV Diagnosis: Essential (primary) hypertension[ICD10: I10] Diagnosis: Dyspnea, unspecified[ICD10: R06.00] [facility] CPT-4: 42678 07/21/2015 ([id number]) 44497 EST. PATIENT, LEVEL III Diagnosis: Edema, unspecified[ICD10: R60.9] Kate Sow MD, MARIANN CPT-4: 92158 07/08/2015 ([id number]) OFFICE VISIT, NEW - LEVEL 4 Diagnosis: ESSENTIAL HYPERTENSION[ICD9: 401.9] Diagnosis: DIABETES TYPE II[ICD9: 250.00] [facility] CPT- 4: 83993 05/04/2015 Plan of Care Planned Activity Notes [...] at home. 09/07/2017 [phone] [facility] [place] ([facility] min) Complex 09/07/2017 Patient Education: Patient Medication Summary Completed 09/07/2017 [phone] [place] (15 min) Moderate 09/05/2017 Visit Plan: Hospital follow up - Dr. Sow in to see pt - pt was in the hospital with uncontrolled hypertension and a. fib - controlled at this time - persistent weakness requiring ongoing PT and assistance with some ADLs and medication management - will admit pt to senior care facility for ongoing rehabilitation. 08/30/2017 [facility]ment[phone] [facility] [place] ([facility] min) Complex 08/30/2017 Patient Education: Patient Medication Summary Completed 08/30/2017 [phone] [facility] [place] (15 min) Moderate 08/29/2017 Visit [...] home. 08/15/2017 App[facility]ment: [facility] [phone] [facility] [place] (15 min) Moderate 08/15/2017 Patient Education: Patient Medication Summary Completed 08/15/2017 Care Plan: %Hba1C LOINC : 41325-8 Cancelled 08/15/2017 [phone] Patient's informed. Completed 06/26/2017 Visit Plan: Diabetes [...] at home. 06/15/2017 Appointment: Kate Sow [facility]el[facility] (15 min) Moderate 06/15/2017 Patient Education: Patient Medication Summary Completed 06/15/2017 Care Plan: Referral Order SNOMED-CT : [id number] Pending 06/15/2017 Appointment: Nurse Visit 05/29/2017 Patient [...] and come in here or go to [facility] or [facility] to get this set of labs [...] Statin 05/11/2017 Appointment: Kate Sow WPtel: [phone] [facility] (15 min) Moderate 05/11/2017 Patient Education: Patient [...] daily. 01/05/2017 Appointment: [facility] [phone] [facility] (15 min) Moderate 01/05/2017 Patient Education: Patient [...] home. 09/20/2016 Appointment: Kate Sow WPtel: [phone] [facility] (30 min) Complex 09/20/2016 Patient Education: Patient [...] acute concerns. 09/01/2016 Appointment: Laney Mcmillan WPtel: [phone] [place] (30 min) Complex 09/01/2016 Patient Education: Patient Medication Summary Completed 09/01/2016 Appointment: Kate Sow WPtel: [facility] (15 min) Moderate 08/31/2016 Appointment: Nurse Visit [...] controlled. 06/02/2016 Appointment: Kate Sow WPtel: [phone] [facility] [place] (15 min) Moderate 06/02/2016 Patient Education: Patient Medication Summary Completed 06/02/2016 Patient Education: Hypertension Completed 06/02/2016 Visit Plan: Bradycardia - reports pt has brought in indicates that the pt has been having a pulse in the 40s-50s. Will adjust medications, pt is to notify clinic if her symptoms do not improve, or with any concerns. 03/25/2016 Appointment: Laney Mcmillan WPtel: [phone] [phone] (10 min) Simple 03/25/2016 Patient Education: Patient [...] DM - managed by Dr. Johnson from [place] 01/26/2016 Patient Education: Patient Medication Summary Completed 01/26/2016 Patient Education: Hypertension Completed 01/26/2016 [phone] [facility] (30 min) Complex 12/31/2015 Visit Plan: [...] less controlled. 10/29/2015 Appointment: [facility] [phone] [facility] [place] (15 min) Moderate 10/29/2015 Patient Education: Patient Medication Summary Completed 10/29/2015 Patient Education: Hypertension Completed 10/29/2015 Appointment: [facility] [phone] [facility] (15 min) Moderate 09/14/2015 Visit Plan: Hypertension [...] today, as soon as you get to [place], monday morning, then start taking the lasix [...] handout Begin using muscle rub on back (Mullen balm) 05/04/2015 Appointment: [facility] [phone] [facility] [place] ([place] New Patient 05/04/2015 Patient Education: Patient Medication Summary Completed 05/04/2015 Patient Education: Hypertension Completed 05/04/2015 [phone] [facility] [place] Referral Appointment Requested Instructions Comment see if Dr. Johnson has the toujeo samples for you - if not , go to the pharmacy to garbage pick up worker the toujeo script. if the toujeo script [...] glucose control. Gait Instability - referral to [facility] physical therapy for gait instability. Hypertension [...] blood pressure readings at home. take lasix , as soon as you get to [place], monday morning, then start taking the lasix [...] today, as soon as you get to [place], monday morning, then start taking the lasix [...] medication management - will admit pt to senior care facility for ongoing rehabilitation. . Bradycardia - [...] DM - managed by Dr. Johnson from [place] . Hypertension - well controlled - continue [...] and come in here or go to [facility] or [facility] to get this set [...] and come in here or go to [facility] to get this set [...] handout Begin using muscle rub on back (Mullen balm) Begin taking Lasix again No blood [...] handout Begin using muscle rub on back (Mullen balm)
[2017-12-13] MEDS ORDERED: ONDANSETRON 4 MG/2 ML (SDV) Z0FRAN IVP ONE (00:45)
--- OUTSIDE RECORDS SUMMARY | 2017-12-13 00:46 | XMS REPORT | CCD ---
Author Author Kate Sow Organization [facility] Address [address] [place] [address] Phone Care Team Providers Care Lumber Mover Name Role Phone PP Unavailable CCM Unavailable Summary Purpose Interface Exchange Insurance Providers Payer name Policy type / Coverage type Covered alliance party ID Effective Begin Date Effective End Date WPS Medicare Part B Medicare Part B [id number] Unknown Unknown [employer] Medicare Part B [id number] Unknown Unknown Family history Mother Diagnosis Age [...] Unknown 3 05/04/[address]: 707922875 Never smoker 05/04/2015 Alcohol history Unknown occasionally [...] Fill Instructions losartan 50 mg tablet RxNorm: 341251 1 Tablet(s) PO QAM 201603/12/2018 Active Lasix 20 mg tablet RxNorm: 566940 1 Tablet(s) PO daily 201610/03/2017 Inactive potassium chloride ER 10 mEq tablet,extended release RxNorm: 824122 1 Tablet(s) PO daily while on the Lasix 08/30/2017 Inactive Toujeo SoloStar 300 unit/mL (1.5 mL) subcutaneous insulin pen RxNorm: 7161122 35 Unit(s) SQ QHS MANAGED BY DR. JOHNSON 06/15/2017 10/12/2017 Active Eliquis 5 mg tablet RxNorm: 0048839 TAKE ONE TABLET BY MOUTH TWICE DAILY 03/01/2017 02/23/2018 Active Januvia 100 mg tablet RxNorm: 086498 1/2 Tablet(s) PO daily 04/04/2017 Inactive losartan 50 mg tablet RxNorm: 675835 1 Tablet(s) PO BID 201509/13/2017 Inactive amlodipine 10 mg tablet RxNorm: 140577 1 Tablet(s) PO daily 06/14/2017 Inactive generic for NORVASC losartan 50 mg tablet RxNorm: 489255 1 Tablet(s) PO daily 201508/31/2016 Inactive Toujeo SoloStar 300 unit/mL (1.5 mL) subcutaneous insulin pen RxNorm: 8675110 40 Unit(s) SQ QHS MANAGED BY DR. JOHNSON 07/01/2016 06/14/2017 Inactive Humalog 100 unit/mL subcutaneous solution RxNorm: 379264 15 Unit(s) SQ AC MANAGED BY DR. JOHNSON 06/02/2016 No Stop Date Active Toujeo SoloStar 300 unit/mL (1.5 mL) subcutaneous insulin pen RxNorm: 9555111 35 Unit(s) SQ QHS MANAGED BY DR. JOHNSON 06/02/2016 06/30/2016 Inactive carvedilol 3.125 mg tablet RxNorm: 937373 1 Tablet(s) PO BID 04/23/2016 Inactive simvastatin 40 mg tablet RxNorm: 311760 1 Tablet(s) PO QHS 01/29/2017 Inactive Humalog 100 unit/mL subcutaneous solution RxNorm: 382013 13 Unit(s) SQ AC MANAGED BY DR. JOHNSON 01/26/2016 06/01/2016 Inactive Eliquis 5 mg tablet RxNorm: 2497690 1 Tablet(s) PO BID 201501/13/2017 Inactive carvedilol 6.25 mg tablet RxNorm: 575239 1 Tablet(s) PO BID 2016 Inactive Humalog 100 unit/mL subcutaneous solution RxNorm: 326313 Unit(s) SQ UD as directed by office 08/07/2015 01/25/2016 Inactive Klor-Con 10 mEq tablet,extended release RxNorm: 193863 1 Tablet(s) PO daily as needed 06/26/2015 10/23/2015 Inactive Lasix 20 mg tablet RxNorm: 064219 1 Tablet(s) PO daily as needed 06/26/2015 10/23/2015 Inactive fluticasone 50 mcg/actuation nasal spray,suspension RxNorm: 714797 2 [place] NASAL daily No Start Date Active Multaq 400 mg tablet RxNorm: 296297 1 Tablet(s) PO BID No Start Date Active cetirizine 10 mg tablet RxNorm: 4455707 1 Tablet(s) PO daily No Start Date Active Norvasc 2.5 mg tablet RxNorm: 895701 1 Tablet(s) PO daily No Start Date Active losartan 25 mg tablet RxNorm: 018777 1 Tablet(s) PO daily No Start Date 08/31/2016 Inactive losartan 100 mg tablet RxNorm: 947315 1 Tablet(s) PO daily No Start Date 06/30/2016 Inactive Klor-Con 10 mEq tablet,extended release RxNorm: 347561 1 Tablet(s) PO daily as needed No Start Date 06/25/2015 Inactive simvastatin 40 mg tablet RxNorm: 605666 1 Tablet(s) PO daily No Start Date 02/04/2016 Inactive carvedilol 6.25 mg tablet RxNorm: 570881 1 Tablet(s) PO BID No Start Date 11/30/2015 Inactive Eliquis 5 mg tablet RxNorm: 6820922 1 Tablet(s) PO BID No Start Date 01/19/2016 Inactive Toujeo SoloStar 300 unit/mL (1.5 mL) subcutaneous insulin pen RxNorm: 8899819 33 Unit(s) SQ QHS MANAGED BY DR. JOHNSON No Start Date 06/01/2016 Inactive Lasix 20 mg tablet RxNorm: 656845 1 Tablet(s) PO daily as needed No Start Date 06/25/2015 Inactive Humalog 100 unit/mL subcutaneous solution RxNorm: 901956 10 Unit(s) SQ TID No Start Date 08/06/2015 Inactive amlodipine 5 mg tablet RxNorm: 777573 1 Tablet(s) PO daily No Start Date [...] 92.2 fl 05/25/2017 Cbc With Differential Ord2 Elbert% 8.9 % 05/25/2017 Cbc With Differential Ord2 [...] 3.78 K/ul 05/25/2017 Cbc With Differential Ord2 Elbert ABS# 0.7 K/ul 05/25/2017 Cbc With Differential Ord2 Eos ABS# 0.8 K/ul 05/25/2017 Cbc With Differential Ord2 Baso ABS# 0.3 K/ul 05/25/2017 Manual Differential Ord52 D-Neutr 50 % 05/25/2017 Manual Differential Ord52 D-Lymph 38 % 05/25/2017 Manual Differential Ord52 D-Eos 10 % 05/25/2017 Manual Differential Ord52 D-1 2 NRBC 05/25/2017 Comp Metabolic Ylb747 NA 140 mEq/L 05/25/2017 Comp Metabolic Unp544 K 4.0 mEq/L 05/25/2017 Comp Metabolic Vmd634 CL 107 mEq/L 05/25/2017 Comp Metabolic Jmq973 CO2 22.0 mEq/L 05/25/2017 Comp Metabolic Ozg180 ANION GAP 15 05/25/2017 Comp Metabolic Lgm953 GLUCOSE 97 mg/dL 05/25/2017 Comp Metabolic Plg249 Creat 0.9 mg/dL 05/25/2017 Comp Metabolic Nci150 eGFR 61 ml/min/1.73m2 05/25/2017 Comp Metabolic Kgl019 BUN 16 mg/dL 05/25/2017 Comp Metabolic Ntd783 B/C Ratio 17.4 Ratio 05/25/2017 Comp Metabolic Qzu097 CALCIUM 9.1 mg/dL 05/25/2017 Comp Metabolic Oky904 ALK PHOS 109 U/L 05/25/2017 Comp Metabolic Gca178 AST(SGOT) 19 U/L 05/25/2017 Comp Metabolic Zwl082 ALT(SGPT) 17 U/L 05/25/2017 Comp Metabolic Qbo322 BILI T 0.4 mg/dL 05/25/2017 Comp Metabolic Dwo558 ALBUMIN 3.3 g/dL 05/25/2017 Comp Metabolic Hkq003 TPRO 6.0 g/dL 05/25/2017 Comp Metabolic Bip321 GLOB 2.7 g/dL 05/25/2017 Comp Metabolic Lei515 A/G Ratio 1.2 Ratio 05/25/2017 Comp Metabolic Rih428 Osmo 281 mOsmo 05/25/2017 Lipid Ord30 CHOL 204 mg/dL 05/25/2017 Lipid Ord30 HDL 49.0 mg/dl 05/25/2017 Lipid Ord30 TRIG 117 mg/dL 05/25/2017 Lipid Ord30 LDL 132 mg/dL 05/25/2017 Lipid Ord30 C/HDL 4.2 Ratio 05/25/2017 %Hba1C Alh979 % HbA1c 85096-6 10.5 % 05/25/2017 %Hba1C Liy157 Gluc Ave 255 mg/dL 05/25/2017 Microalbumin Zne082 MicroAlb 95.0 mg/dL 05/25/2017 Review of Systems [...] FLU VACC PRSV FREE INC ANTIG CPT-4: 88443 06/02/2016 Vital Signs Date Vital 10/10/2017 Blood Pressure 1: 168/78 Code : 8480-6 BMI: 23.0 Code : 10819-9 Heart Rate 1 : 54 bpm Height: 4'11" SpO2: 98% Weight: 114 lbs 09/07/2017 Blood Pressure 1: 142/72 Code : 8480-6 Heart Rate 1: 84 bpm Height: 4'11" SpO2: 97% Weight: 08/30/2017 Blood Pressure 1: 188/82 Code : 8480-6 BMI: 24.4 Code : 02635-3 Heart Rate 1 : 79 bpm Height: 4'11" SpO2: 88% Temperature: 38.5 (C) / 101.3 (F) Weight: 121 lbs 08/15/2017 Blood Pressure 1: 166/78 Code : 8480-6 BMI: 22.8 Code : 63257-2 Heart Rate 1 : 71 bpm Height: 4'11" SpO2: 96% Weight: 113 lbs 06/15/2017 Blood Pressure 1: 138/68 Code : 8480-6 BMI: 22.8 Code : 22100-0 Heart Rate 1 : 54 bpm Height: 4'11" SpO2: 98% Weight: 113 lbs 05/29/2017 Blood Pressure 1: 96/46 Code : 8480-6 Blood Pressure 2: 116/57 Code: 8480-6 Heart Rate 1: 54 bpm 05/11/2017 Blood Pressure 1: 144/60 Code : 8480-6 BMI: 23.8 Code : 14808-5 Heart Rate 1 : 68 bpm Height: 4'11" SpO2: 97% Weight: 118 lbs 01/05/2017 Blood Pressure 1: 134/72 Code : 8480-6 BMI: 24.8 Code : 25895-5 Heart Rate 1 : 64 bpm Height: 4'11" SpO2: 94% Weight: 123 lbs 09/20/2016 Blood Pressure 1: 148/66 Code : 8480-6 BMI: 25.4 Code : 24653-0 Heart Rate 1 : 68 bpm Height: 4'11" SpO2: 97% Weight: 126 lbs 09/01/2016 Blood Pressure 1: 162/80 Code : 8480-6 BMI: 26.1 Code : 43901-8 Heart Rate 1 : 75 bpm Height: 4'11" SpO2: 95% Weight: 129 lbs 06/02/2016 Blood Pressure 1: 144/82 Code : 8480-6 BMI: 25.4 Code : 08419-6 Heart Rate 1 : 68 bpm Height: 4'11" SpO2: 98% Weight: 126 lbs 03/25/2016 Blood Pressure 1: 140/58 Code : 8480-6 BMI: 25.9 Code : 25493-3 Heart Rate 1 : 58 bpm Height: 4'11" SpO2: 95% Weight: 128 lbs 01/26/2016 Blood Pressure 1: 138/68 Code : 8480-6 BMI: 26.3 Code : 53656-2 Heart Rate 1 : 66 bpm Height: 4'11" SpO2: 96% Weight: 130 lbs 10/29/2015 Blood Pressure 1: 180/78 Code : 8480-6 BMI: 25.7 Code : 30958-6 Heart Rate 1 : 74 bpm Height: 4'11" SpO2: 97% Weight: 127 lbs 07/21/2015 Blood Pressure 1: 136/70 Code : 8480-6 BMI: 25.9 Code : 47575-2 Heart Rate 1 : 63 bpm Height: 4'11" SpO2: 95% Weight: 128 lbs 07/08/2015 Blood Pressure 1: 140/70 Code : 8480-6 BMI: 26.5 Code : 21464-3 Heart Rate 1 : 59 bpm Height: 4'11" SpO2: 94% Weight: 131 lbs 5 oz 05/04/2015 Blood Pressure 1: 140/60 Code : 8480-6 BMI: 25.7 Code : 15975-7 Heart Rate 1 : 60 bpm Height: [...] Present Encounters Encounter Performer Location Codes Date 22748 EST. PATIENT, LEVEL IV Diagnosis: Type 2 diabetes mellitus without complications[ICD10: E11.9] Diagnosis: Mixed hyperlipidemia[ICD10: E78.2] Diagnosis: Essential (primary) hypertension[ICD10: I10] Elizabeth Sow MD, [facility] CPT-4: 98240 10/10/2017 82968 EST. PATIENT, LEVEL III Diagnosis: Weakness[ICD10: R53.1] Diagnosis: Essential (primary) hypertension[ICD10: I10] Elizabeth Sow MD, [facility] CPT-4: 08280 09/07/2017 88749 EST. PATIENT, LEVEL III Diagnosis: Encounter for follow-up examination after completed treatment for conditions other than malignant neoplasm[ICD10: Z09] Diagnosis: Weakness[ICD10: R53.1] Diagnosis: Essential (primary) hypertension[ICD10: I10] Diagnosis: Dyspnea, unspecified[ICD10: R06.00] Diagnosis: Unsteadiness on feet[ICD10: R26.81] Elizabeth Sow MD, [facility] CPT-4: 96008 08/30/2017 ([id number]) 83114 EST. PATIENT, LEVEL IV Diagnosis: Type 2 diabetes mellitus without complications[ICD10: E11.9] Diagnosis: Essential (primary) hypertension[ICD10: I10] Kate Sow MD [facility] CPT-4: 63205 08/15/2017 ([id number]) 50222 EST. PATIENT, LEVEL IV Diagnosis: Type 2 diabetes mellitus without complications[ICD10: E11.9] Diagnosis: Essential (primary) hypertension[ICD10: I10] Diagnosis: Unsteadiness on feet[ICD10: R26.81] Kate Sow MD, [facility] CPT-4: 36202 06/15/2017 ([id number]) Miscellaneous no charge Diagnosis: Essential (primary) hypertension[ICD10: I10] Laney Sow MD, [facility] CPT-4: 83660 05/29/2017 ([id number]) 62014 EST. PATIENT, LEVEL IV Diagnosis: Type 2 diabetes mellitus without complications[ICD10: E11.9] Diagnosis: Essential (primary) hypertension[ICD10: I10] Diagnosis: Mixed hyperlipidemia[ICD10: E78.2] Kate Sow MD, [facility] CPT-4: 12643 05/11/2017 ([id number]) 12696 EST. PATIENT, LEVEL IV Diagnosis: Type 2 diabetes mellitus without complications[ICD10: E11.9] Diagnosis: Essential (primary) hypertension[ICD10: I10] Kate Sow MD, [facility] CPT-4: 61201 01/05/2017 ([id number]) 90692 EST. PATIENT, LEVEL III Diagnosis: Essential (primary) hypertension[ICD10: I10] Kate Sow MD, [facility] CPT-4: 87107 09/20/2016 ([id number]) 62991 EST. PATIENT, LEVEL III Diagnosis: Essential (primary) hypertension[ICD10: I10] Laney Sow MD, [facility] CPT-4: 22543 09/01/2016 ([id number]) Miscellaneous no charge Diagnosis: Impacted cerumen, right ear[ICD10: H61.21] Elizabeth Sow MD, [facility] CPT-4: 91385 06/08/2016 ([id number]) 94766 EST. PATIENT, LEVEL IV Diagnosis: Type 2 diabetes mellitus without complications[ICD10: E11.9] Diagnosis: Essential (primary) hypertension[ICD10: I10] Diagnosis: Encounter for immunization[ICD10: Z23] Kate Sow MD, [facility] CPT-4: 33612 06/02/2016 18344 EST. PATIENT, LEVEL III Diagnosis: Essential (primary) hypertension[ICD10: I10] Diagnosis: Other specified cardiac arrhythmias[ICD10: I49.8] Elizabeth Sow MD, [facility] CPT-4: 97695 03/25/2016 ([id number]) 59309 EST. PATIENT, LEVEL IV Diagnosis: Type 2 diabetes mellitus without complications[ICD10: E11.9] Diagnosis: Essential (primary) hypertension[ICD10: I10] Kate Sow MD [facility] CPT-4: 41470 01/26/2016 ([id number]) 37139 EST. PATIENT, LEVEL IV Diagnosis: Essential (primary) hypertension[ICD10: I10] Diagnosis: Type 2 diabetes mellitus without complications[ICD10: E11.9] Kate Sow MD [facility] CPT-4: 54317 10/29/2015 ([id number]) 49220 EST. PATIENT, LEVEL IV Diagnosis: Essential (primary) hypertension[ICD10: I10] Diagnosis: Dyspnea, unspecified[ICD10: R06.00] Kate Sow MD [facility] CPT-4: 01004 07/21/2015 ([id number]) 41364 EST. PATIENT, LEVEL III Diagnosis: Edema, unspecified[ICD10: R60.9] Kate Sow MD, [facility] CPT-4: 49768 07/08/2015 ([id number]) OFFICE VISIT, NEW - LEVEL 4 Diagnosis: ESSENTIAL HYPERTENSION[ICD9: 401.9] Diagnosis: DIABETES TYPE II[ICD9: 250.00] [facility] CPT- 4: 76049 05/04/2015 Plan of Care Planned Activity Notes Codes Status Date Visit Plan: Hypertension - uncontrolled - the [...] pt is to call for acute concerns. Hyperlipidemia - pt has been counseled about [...] to assure normal liver response to medications. Diabetes Mellitus - I have recommended for the patient to [...] to allow for greater blood glucose control. 10/10/2017 Patient Education: Patient Medication Summary Completed 10/10/2017 Visit Plan: Weakness - improved - pt [...] at home. 09/07/2017 App[facility]ment[facility] [phone] [facility] [place] (30 min) Complex 09/07/2017 Patient Education: Patient Medication Summary Completed 09/07/2017 App[facility]ment: [facility] [phone] [facility] [place] (15 min) Moderate 09/05/2017 Visit Plan: Hospital follow up - Dr. Sow in to see pt - pt was in the hospital with uncontrolled hypertension and a. fib - controlled at this time - persistent weakness requiring ongoing PT and assistance with some ADLs and medication management - will admit pt to long-term facility for ongoing rehabilitation. 08/30/2017 Appointment: [facility] [phone] [facility] (30 min) Complex 08/30/2017 Patient Education: Patient Medication Summary Completed 08/30/2017 Appointment: Elizabeth Milner WPtel: [address] [place], [place] [phone] (15 min) Moderate 08/29/2017 Visit Plan: Diabetes [...] at home. 08/15/2017 Appointment: Kate Sow WPtel: [address] [place], [place] [phone] (15 min) Moderate 08/15/2017 Patient Education: Patient Medication Summary Completed 08/15/2017 Care Plan: %Hba1C LOINC : 44842-8 Cancelled 08/15/2017 Referral: [facility] WPtel: [phone] [facility] Patient's informed. Completed 06/26/2017 Visit Plan: Diabetes [...] glucose control. 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 Hypertension - well controlled - continue with current medications , continue with no added salt diet. Pt has been encouraged to exercise daily. The pt has been advised to call the office if there are any acute concerns about change in blood pressure readings at home. 06/15/2017 Appointment: Kate Sow W[facility]el: [place] (15 min) Moderate 06/15/2017 Patient Education: Patient Medication Summary Completed 06/15/2017 Care Plan: Referral Order SNOMED-CT : [id number] Pending 06/15/2017 Appointment: Nurse Visit 05/29/2017 Patient [...] and come in here or go to [facility] or [facility] to get this set of labs done. [...] Statin 05/11/2017 Appointment: Kate [facility] [phone] [facility] (15 min) Moderate 05/11/2017 Patient Education: Patient [...] daily. 01/05/2017 Appointment: Kate Sow [facility] [phone] [facility] (15 min) Moderate 01/05/2017 Patient Education: Patient Medication Summary Completed 01/05/2017 Visit Plan: Hypertension - well controlled - continue with current medications, continue with no added salt diet. Pt has been encouraged to exercise daily. The pt has been advised to call the office if there are any acute concerns about change in blood pressure readings at home. 09/20/2016 Appointment: Kate [facility] [phone] [facility] (30 min) Complex 09/20/2016 Patient Education: Patient [...] call for acute concerns. 09/01/2016 Appointment: Laney Mcmillna WPtel: [phone] [phone] (30 min) Complex 09/01/2016 Patient Education: Patient Medication Summary Completed 09/01/2016 Appointment: Kate Sow [facility] [phone] [facility] (15 min) Moderate 08/31/2016 Appointment: Nurse Visit [...] controlled. 06/02/2016 Appointment: Kate Sow [facility]el: [phone] [facility] [place] (15 min) Moderate 06/02/2016 Patient Education: Patient Medication Summary Completed 06/02/2016 Patient Education: Hypertension Completed 06/02/2016 Visit Plan: Bradycardia - reports pt has brought in indicates that the pt has been having a pulse in the 40s-50s. Will adjust medications, pt is to notify clinic if her symptoms do not improve, or with any concerns. 03/25/2016 Appointment: [facility] [phone] [phone] [place] (10 min) Simple 03/25/2016 Patient Education: [...] DM - managed by Dr. Johnson from [place] 01/26/2016 Patient Education: Patient Medication Summary Completed 01/26/2016 Patient Education: Hypertension Completed 01/26/2016 Appointment: Laney Mcmillan WPtel: [phone] [phone] (30 min) Complex 12/31/2015 Visit Plan: Hypertension [...] less controlled. 10/29/2015 Appointment: Kate S[facility] [phone] [facility] (15 min) Moderate 10/29/2015 Patient Education: Patient Medication Summary Completed 10/29/2015 Patient Education: Hypertension Completed 10/29/2015 Appointment: Kate Sow WPtel: [phone] [facility] (15 min) Moderate 09/14/2015 Visit Plan: Hypertension [...] today, as soon as you get to [place], monday morning, then start taking the lasix [...] handout Begin using muscle rub on back (Clarinda balm) 05/04/2015 Appointment: Kate Sow [facility]el[facility] [phone] [facility] [place] (S) New Patient 05/04/2015 Patient Education: Patient Medication Summary Completed 05/04/2015 Patient Education: Hypertension Completed 05/04/2015 [facility] [phone] [facility] [place] Referral Appointment Requested Instructions Comment see if Dr. Johnson has the tougloba.lyo samples for you - if not , go to the pharmacy to product picker the toujeo script. if the toujeo [...] glucose control. 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 Hypertension - [...] blood pressure readings at home. take lasix as soon as you get to monday, then start taking the lasix three days [...] attempt to reduce peripheral edema. take lasix as soon as you get to monday morning, then start taking the lasix [...] medication management - will admit pt to long-term facility for ongoing rehabilitation. . Bradycardia - reports pt has brought in indicates that the pt has been having a pulse in the 40s-50s. Will adjust medications, pt is to notify clinic if her symptoms do not improve, or with any concerns. Increase losartan to 100mg daily come in for a BMP blood test in 1 week Come back for a blood pressure follow up appointment in 2 weeks bring a blood pressure and heart rate log to your appointment.. Hypertension - uncontrolled - the patient's medications [...] pt is to call for acute concerns. Hyperlipidemia - pt has been counseled about [...] to assure normal liver response to medications. Diabetes Mellitus - I have recommended for the patient to [...] to allow for greater blood glucose control. . Hypertension - well controlled - continue with current medications, continue with no added salt diet. Pt has been encouraged to exercise daily. The pt has been advised to call the office if there are any acute concerns about change in blood pressure readings at home. DM - managed by Dr. Johnson from [place] . Hypertension - well controlled - continue [...] and come in here or go to [facility] or [facility] to get this set [...] and come in here or go to [facility] or [facility] to get this set [...] handout Begin using muscle rub on back (Clarinda balm) Begin taking Lasix again No blood [...] handout Begin using muscle rub on back (Clarinda balm)
--- NOTE | 2017-12-13 00:47 | ED Neurological Problem ---
General Stated Complaint: LEFT ARM NUMBNESS Source: patient, spouse Exam Limitations: no limitations History of Present Illness Date Seen by Provider: Dec 13, 2017 Time Seen by Provider: 00:32 Initial Comments Patient presents to ER by private conveyance with a chief complaint that just prior to arrival she was sitting at home and she said she started having loss of control of movement in her left arm as well as feeling very dizzy. She has not vomited had fevers chills nausea or cough or shortness of breath or pain. She says she also had a little weakness in her left leg. She is at baseline hard of hearing and did not bring her hearing aids. She is accompanied by her . She has no history of stroke or heart attack. She says she is concerned she might be having a stroke. The patient's who brought her to the ER is equally hard of hearing and has hearing aids present. Difficult to get much more history. He states that the symptoms began around 11:30 last night. She has no prior history of stroke and is on the blood thinner Eliquis. Initially she was complaining of pain in her left arm more than numbness and weakness. She is not having any pain presently. She takes an 81 mg aspirin daily. Allergies and Home Medications Allergies Coded Allergies: No Known Drug Allergies (Unverified , 11/03/09) Home Medications Amlodipine Besylate 2.5 Mg Tablet, 2.5 MG PO DAILY, (Reported) Apixaban 5 Mg Tablet, 5 MG PO BID, (Reported) Aspirin 81 Mg Tab.chew, 81 MG PO DAILY Prescribed by: SHEMAR CORTEZ on 08/29/17 1042 Carvedilol 12.5 Mg Tablet, 12.5 MG PO BID Prescribed by: SHEMAR CORTEZ on 08/29/17 1042 Dronedarone HCl 400 Mg Tablet, 400 MG PO BID, (Reported) Furosemide 20 Mg Tablet, 20 MG PO DAILY PRN for SWELLING, (Reported) Insulin Glargine,Hum.rec.anlog 300 Unit/1 Ml Insuln.pen, 35 UNIT SQ HS, ( Reported) Insulin Lispro 100 Unit/1 Ml Insuln.pen, SQ SLIDING/SCALE, (Reported) Insulin Lispro 100 Unit/1 Ml Insuln.pen, SQ SLIDING/SCALE, (Reported) Losartan Potassium 50 Mg Tablet, 50 MG PO DAILY, (Reported) Pantoprazole Sodium 20 Mg Tablet.dr, 20 MG PO DAILY@0700 Prescribed by: SHEMAR CORTEZ on 08/29/17 1042 Potassium Chloride 10 Meq Tablet.er, 10 MEQ PO DAILY PRN for WITH FUROSEMIDE, ( Reported) Pravastatin Sodium 20 Mg Tablet, 20 MG PO HS Prescribed by: MAGI HILL on 08/29/17 0958 Patient Home Medication List Home Medication List Reviewed: Yes Constitutional: No chills, No diaphoresis, No fever Eyes: Denies Blindness, Denies Blurred Vision, Denies Drainage Ears, Nose, Mouth, Throat: denies ear pain, denies ear discharge Respiratory: No cough, No short of breath Cardiovascular: No chest pain, No edema, No palpitations, No syncope, No vascular heart diseas Gastrointestinal: No abdominal pain, No constipation, No diarrhea, No nausea Genitourinary: No discharge, No dysuria Musculoskeletal: No back pain, No joint pain Past Immdwjf-Sjywvl-Ixumoj Hx Patient Social History Alcohol Use: Occasionally Uses Alcohol Beverage of Choice: Rum Recreational Drug Use: No Recent Foreign Travel: No Contact w/Someone Who Travel: No Recent Hopitalizations: Yes (FINE WITH SYNCOPE) Immunizations Up To Date Tetanus Booster (TDap): Unknown PED Vaccines UTD: No Date of Pneumonia Vaccine: Jun 11, 2013 Date of Influenza Vaccine: Aug 08, 2017 Seasonal Allergies Seasonal Allergies: No Surgeries History of Surgeries: Yes (RIGHT FOOT SURGERY) Respiratory History of Respiratory Disorde: No Currently Using CPAP: No Currently Using BIPAP: No Cardiovascular History of Cardiac Disorders: Yes (STENTS, MONITOR PLACED BY DR. RVIAS) Cardiac Disorders: Atrial Fibrillation, Hypertension, Peripheral Vascular Neurological History of Neurological Disord: No Reproductive System Hx Reproductive Disorders: No Sexually Transmitted Disease: No HIV/AIDS: No Genitourinary Genitourinary Disorders: Renal Failure Gastrointestinal History of Gastrointestinal Di: No Musculoskeletal History of Musculoskeletal Dis: Yes (MINOR ARTHRITIS IN BILATERAL HANDS) Musculoskeletal Disorders: Arthritis Endocrine History of Endocrine Disorders: Yes Endocrine Disorders: Diabetes, Insulin dep HEENT History of HEENT Disorders: Yes HEENT Disorders: Cataract Hearing Impairment: Hard of Hearing, Bilateral Hearing Aide Cancer History of Cancer: No Psychosocial History of Psychiatric Problem: No Integumentary History of Skin or Integumenta: No Blood Transfusions History of Blood Disorders: No Family Medical History Significant Family History: Heart Disease, Diabetes, Hypertension, Stroke Family Medial History: Alzheimer's disease 19 MOTHER, Arthritis 19 FATHER, 19 MOTHER, G8 BROTHER, G8 BROTHER, G8 BROTHER G8 SISTER G8 SISTER Cardiovascular disease 19 MOTHER, G8 BROTHER, Completed stroke 19 MOTHER, G8 SISTER Hypercholesterolemia 19 FATHER, G8 BROTHER, Hypertension 19 MOTHER, Myocardial infarction 19 FATHER, G8 BROTHER, Physical Exam Vital Signs Vital Signs - First Documented 12/13/17 00:40 Temp 98.7 Pulse 70 Resp 18 B/P (MAP) 148/67 (94) Pulse Ox 100 O2 Delivery Room Air Capillary Refill : General Appearance: WD/WN, mild distress HEENT: PERRL/EOMI, pharynx normal Neck: non-tender, normal inspection Respiratory: chest non-tender, normal breath sounds, no respiratory distress, no accessory muscle use Cardiovascular: normal peripheral pulses, regular rate, rhythm, no edema Peripheral Pulses: 2+ Radial Pulses (R), 2+ Radial Pulses (L) Gastrointestinal: normal bowel sounds, non tender, soft Neurologic/Psychiatric: qa auditor II-XII nml as tested, alert, oriented x 3 Crainal Nerves: normal speech, PERRL, No abnormal eye position, No facial droop , hearing deficit (R), hearing deficit (L) Coordination/Gait: normal finger to nose, other (transfers with 2 people assist but able to stand and walk one step.) Motor/Sensory: no pronator drift, sensory deficit (decreased sensation left lower extremity ordered on both), weak motor strength LLE Skin: normal color, warm/dry Lymphatic: no adenopathy Stroke NIH Stroke Scale Assessment Select: Initial Level of Consciousness: 0=Alert (0), Level of Consciousness- Questions: 0=Answers both month/age (0), LOC Commands: 1=Performs one task UPPER MATTAPONI ( 1), Gaze: Normal (0), Visual Escoto: 0=No visual loss (0), Facial Movement ( Facial Paresis): 0=Normal symmetrical mnt (0), Motor Function-Arms Right: 0=No drift (0), Motor Function-Arms Left: 0=No drift (0), Motor Function-Legs Right: 0=No drift (0), Motor Function-Legs Left: 1=Drift (1), Limb Ataxia: 0=Absent (0) , Sensory: 1=Mild to Moderate loss (1), Best Language: 0=No aphasia (0), Dysarthria: 0=Normal (0), Extinction & Inattention: 0=No abnormality (0), Total : 3 Stroke Thrombolytic Exclusion Age 18 or Over: Yes Acute intenal hemorrhage: No History of CVA: No Uncontrolled Coagulation Defec: No Intracranial Hemorrhage: No Severe Hypertension: No GI or Bleed: No Subarachnoid Hemorrhage: No Intracranial Neoplasm/Aneurysm: No Oral Anticoagulants: Yes Surgery or Trauma: No Puncture of Non-Compressible V: No Recent CPR: No Diabetic Hemorrhagic Retinopat: No Organ Biopsy: No Recent Obstetric Delivery: No Glucose: Yes (84) Significant Hepatic Dysfunctio: No NIH Stoke Scale >22: No Bacterial Endocarditis: No Pericarditis: No Improving Symptoms: Yes TPA Contraindication: Yes IV - TPa Received IV - TPa Procedure Performed?: No Progress/Results/Core Measures Results/Orders Lab Results Laboratory Tests Test 12/13/17 00:53 Range/Units Glucometer 84 70-110 MG/DL My Orders Orders - IVONNE MUHAMMAD Cbc With Automated Diff (12/13/17 00:38) Protime With Inr (12/13/17 00:38) Partial Thromboplastin Time (12/13/17 00:38) Comprehensive Metabolic Panel (12/13/17 00:38) Fibrin Degradation Products (12/13/17 00:38) Troponin I (12/13/17 00:38) Ua Culture If Indicated (12/13/17 00:38) Chest 1 View, Ap/Pa Only (12/13/17 00:38) Ekg Tracing (12/13/17 00:38) Nothing By Mouth (12/13/17 Breakfast) Accucheck Stat ONCE (12/13/17 00:38) Saline Lock/Iv-Start (12/13/17 00:38) Saline Lock/Iv-Start (12/13/17 00:38) Vital Signs Stroke Patient Q15M (12/13/17 00:38) Ct Head Wo-R/O Stroke (12/13/17 00:38) O2 (12/13/17 00:38) Intake & Output 06,14,22 (12/13/17 00:38) Monitor-Rhythm Ecg Trace Only (12/13/17 00:38) Dysphagia Screening Tool (12/13/17 00:38) Post Thrombolytic Adminstratio (12/13/17 00:38) Ondansetron Injection (Zofran Injectio (12/13/17 00:45) Medications Given in ED Current Medications Medications Dose Ordered Sig/Thee Route Start Time Stop Time Status Last Admin Dose Admin Ondansetron HCl 4 mg ONCE ONCE IVP 12/13/17 00:45 12/13/17 00:46 DC 12/13/17 00:47 4 MG Vital Signs/I&O Vital Sign - Last 12Hours 12/13/17 12/13/17 00:40 00:40 Temp 98.7 Pulse 70 Resp 18 B/P (MAP) 148/67 (94) Pulse Ox 100 100 O2 Delivery Room Air Room Air Progress Note : Time: 01:13 Progress Note Neuro examination is made more difficult by the patient's hard of hearing so it is difficult to know if she can't understand to commands or she is just not able to follow them. Is easily distracted and stares off into space saying she can't hear anything. 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 Probably her NIH score is only about 1 or 2 points however she has not really a candidate for TPA given her Eliquis use anyways. Not in atrial fibrillation presently. 2013 CTA of head and neck Atherosclerotic plaques of the internal carotid arteries without significant stenosis or occlusion. Atherosclerotic pack of the carotid bifurcation on left with approximately a 2 cm extension into the proximal left carotid internal artery with associated underlying stenosis of 60-80%. Internal right carotid artery is patent with no significant stenosis. Previous H&P's indicate the patient has a history of coronary artery disease, paroxysmal atrial fibrillation, hypertension, hyperlipidemia, sick sinus syndrome, using Eliquis, multi-and having an implanted linked device. Carotid duplex done in May 2014 reveals significant left internal carotid artery stenosis. Mild right side disease. Vascular surgeon recommended to monitor and 2016. Patient is known to Dr. Rivas. Myocardial perfusion scan January 2016 demonstrated no ischemic pattern. Normal left ventricular size and normal contractility with an capsulated ejection fraction a 91%. ECG Initial ECG Impression Date: Dec 13, 2017 Initial ECG Impression Time: 00:42 Initial ECG Rate: 58 Initial ECG Rhythm: Normal Sinus Initial ECG Intervals: Normal Initial ECG Impression: Normal, Nonspecific Changes Diagnostic Imaging Diagonstic Imaging: Xray Plain Films/CT/US/NM/MRI: chest Comments No acute cardiopulmonary processes noted. Reviewed: Reviewed by Me Diagonstic Imaging: CT Plain Films/CT/US/NM/MRI: head (c/o) Comments Stat read impression no acute intracranial findings. Reviewed: Reviewed Night Hawk Study ([employer]), Reviewed by Me Consults Consults : Consults Notes [facility] Neurology: Discussed the case use of Eliquis concomitantly with 81 mg of aspirin and she feels it is likely that the patient has had a small subcortical stroke given the history of paroxysmal atrial fibrillation and wants us to repeat an MRI and a CTA inpatient. Her recommendation would be if there are atherosclerotic changes intracranially then she would consider changing the Eliquis to another anticoagulant. Departure Communication (Admissions) Time/Spoke to Admitting Phy: 01:48 Communication Discussed case lab imaging EKG and findings with Dr. Sow and the plan to do MRI and CTA in the morning and if there is atherosclerotic changes intracranially that the neurologist would recommend reconsidering choice of anticoagulation. Impression Impression: Primary Impression: CVA (cerebral vascular accident) Qualified Codes: I63.9 - Cerebral infarction, unspecified Disposition: ADMITTED INPATIENT Condition: Stable Admissions Decision to Admit Reason: Admit from ER (General) Decision to Admit/Date: Dec 13, 2017 Time/Decision to Admit Time: 01:52 Departure-Patient Inst. Referrals: JONN SOW MD (PCP/Family) Primary Care Physician IVONNE MUHAMMAD Dec 13, 2017 00:47
[2017-12-13] MEDS ORDERED: ATOR40TA70 PO (01:20)
[2017-12-13] MEDS ORDERED: METO-387 PO (01:20)
[2017-12-13 02:20] VITALS: BP 135/67
[2017-12-13 04:00] VITALS: BP 160/69
[2017-12-13] MEDS: inSUlin (REGULAR) HUMAN 1 UNIT/0.01 ML (CHARGE PER UNIT) SC SCH ×4 (05:02→21:15)
[2017-12-13 05:56] LABS: BASOPHILS % (AUTO) 0 % (0-10); EOSINOPHILS # (AUTO) 0.2 10^3/uL (0.0-0.3); EOSINOPHILS % (AUTO) 3 % (0-10); HEMATOCRIT 41 % (35-52); HEMOGLOBIN 13.4 G/DL (11.5-16.0); LYMPHOCYTES # (AUTO) 2.9 X 10^3 (1.0-4.0); LYMPHOCYTES % (AUTO) 38 % (12-44); MEAN CORPUSCULAR HEMOGLOBIN 29 PG (25-34); MEAN CORPUSCULAR HGB CONC 33 G/DL (32-36); MEAN CORPUSCULAR VOLUME 86 FL (80-99); MEAN PLATELET VOLUME 10.8 FL (7.4-10.4); MONOCYTES # (AUTO) 0.6 X 10^3 (0.0-1.0); MONOCYTES % (AUTO) 7 % (0-12); NEUTROPHILS # (AUTO) 3.9 X 10^3 (1.8-7.8); NEUTROPHILS % (AUTO) 51 % (42-75); PLATELET COUNT 374 10^3/uL (130-400); RED CELL DISTRIBUTION WIDTH 15.2 % (10.0-14.5); WHITE BLOOD COUNT 7.5 10^3/uL (4.3-11.0)
[2017-12-13] MEDS: CARVEDILOL 12.5 MG (COREG) TABLET PO SCH ×2 (06:00→16:37)
[2017-12-13 06:03] LABS: INR 1.2 (0.8-1.4); PARTIAL THROMBOPLASTIN TIME 31 SEC (24-35)
[2017-12-13 06:05] LABS: FIBRIN DEGRADATION PRODUCTS < 0.27 UG/ML (0.00-0.49)
[2017-12-13 06:09] LABS: ALANINE AMINOTRANSFERASE 18 U/L (0-55); ALBUMIN 3.2 GM/DL (3.2-4.5); ALKALINE PHOSPHATASE 92 U/L (40-136); BILIRUBIN,TOTAL 0.6 MG/DL (0.1-1.0); BUN/CREATININE RATIO 15; CALCIUM 9.6 MG/DL (8.5-10.1); CARBON DIOXIDE 26 MMOL/L (21-32); CHLORIDE 106 MMOL/L (98-107); CREATININE SERUM 1.13 MG/DL (0.60-1.30); GFR ESTIMATED 45; GLUCOSE 153 MG/DL (70-105); POTASSIUM 4.3 MMOL/L (3.6-5.0); SODIUM 138 MMOL/L (135-145); TOTAL PROTEIN 5.6 GM/DL (6.4-8.2)
[2017-12-13 08:00] VITALS: BP 120/53
--- NOTE | 2017-12-13 08:05 | Diagnostic Imaging Report ---
INDICATION: Left arm numbness. EXAMINATION: Frontal chest obtained at 01:08 a.m. COMPARISON: 05/26/2017. FINDINGS: The heart is mildly enlarged. There is central vascular congestion without raina edema. There is no consolidation or pleural fluid. IMPRESSION: Cardiomegaly and mild central vascular prominence, without raina edema. No consolidation or pleural fluid. Dictated by: Dictated on workstation # [id number]
--- NOTE | 2017-12-13 08:10 | Diagnostic Imaging Report ---
INDICATION: Left arm numbness. Noncontrast brain CT is performed. FINDINGS: There are mild diffuse atrophic changes. There are patchy low-density changes in the deep white matter compatible with chronic ischemic change, these findings appear to have progress compared with 06/16/2014. There is no acute hemorrhage or mass effect or midline shift. Ventricles are normal in size and position. Calvarial windows are unremarkable. IMPRESSION: Mild atrophic changes and chronic ischemic changes in deep white matter, which have progressed compared with 06/16/2014. No acute hemorrhage or mass effect or acute appearing finding. Dictated by: Dictated on workstation # [id number]
[2017-12-13] MEDS: ASPIRIN 81 MG CHEW (CHILDREN'S ASA) PO SCH (08:39)
[2017-12-13] MEDS: amLODIPine 2.5MG (NORVASC) TAB PO SCH (08:39)
[2017-12-13] MEDS: LOSARTAN 50 MG (COZAAR) TAB PO SCH (08:39)
[2017-12-13] MEDS: APIXABAN 5 MG (ELIQUIS) TABLET PO SCH ×2 (08:39→21:14)
--- NOTE | 2017-12-13 08:58 | History & Physicial ---
History of Present Illness History of Present Illness Reason for visit/HPI PT IS AN 87 Y/O FEMALE WHO IS KNOWN TO ME FROM CLINIC. SHE STATES THAT SHE HAD BEEN FEELING WELL, A LITTLE FATIGUED ON RETURN FROM [facility] TO VISIT FAMILY. SHE REPORTS THAT SHE HAS NOT BEEN FOLLOWING HER DIABETIC DIET DIRECTED. SHE WAS FEELING FAIRLY WELL UNTIL EARLY THIS MORNING WHEN SHE HAD WEAKNESS, CONFUSION, WEAKNESS OF ARM/LEG ON LEFT - Date of Admission Dec 13, 2017 at 01:50 Date Seen by Provider: Dec 13, 2017 Time Seen by Provider: 09:00 I consulted on this patient on 12/13/17 08:57 Attending Physician Jonn Sow MD Admitting Physician Jonn Sow MD Consult Allergies and Home Medications Allergies Coded Allergies: No Known Drug Allergies (Unverified , 11/03/09) Home Medications Amlodipine Besylate 2.5 Mg Tablet, 2.5 MG PO DAILY, (Reported) LAST FILLED #30 10-17-17 Apixaban 2.5 Mg Tablet, 2.5 MG PO BID Prescribed by: JONN SOW on 12/14/17 09 Aspirin 81 Mg Tab.chew, 81 MG PO DAILY@0900 Prescribed by: JONN SOW on 12/14/17 0937 Atorvastatin Calcium 40 Mg Tablet, 40 MG PO HS, (Reported) LAST FILLED #30 10-17-17 Carvedilol 12.5 Mg Tablet, 12.5 MG PO BID, (Reported) LAST FILLED #60 09-21-17 Dronedarone HCl 400 Mg Tablet, 400 MG PO BID, (Reported) LAST FILLED #60 09-08-17 Furosemide 20 Mg Tablet, 20 MG PO DAILY PRN for SWELLING, (Reported) LAST FILLED #3 09-08-17 Insulin Glargine,Hum.rec.anlog 300 Unit/1 Ml Insuln.pen, 32 UNIT SQ HS, ( Reported) Insulin Lispro 100 Unit/1 Ml Insuln.pen, SQ UD, (Reported) USE 18 UNITS WITH MEALS PLUS CORRECTION Losartan Potassium 50 Mg Tablet, 50 MG PO DAILY, (Reported) Pantoprazole Sodium 20 Mg Tablet.dr, 20 MG PO DAILY, (Reported) LAST FILLED #30 09-21-17 Potassium Chloride 10 Meq Tablet.er, 10 MEQ PO DAILY PRN for WITH FUROSEMIDE, ( Reported) LAST FILLED #3 09-08-17 Sitagliptin Phosphate 100 Mg Tablet, 50 MG PO DAILY, (Reported) LAST RECEIVED UNKNOWN QUANTITIY OF SAMPLES IN SEPTEMBER TAKE 1/2 (100MG) TABLET Patient Home Medication List Home Medication List Reviewed: Yes Past Fwqgctj-Fenbhn-Sirzrg Hx Patient Social History Marrital Status: Living Status: LIVES AT HOME WITH SPOUSE Employed/Student: retired Alcohol Use: Occasionally Uses Number of Drinks Today: DD Alcohol Beverage of Choice: Rum Recreational Drug Use: No Smoking Status: Never a Smoker 2nd Hand Smoke Exposure: No Physical Abuse Screen: No Sexual Abuse: No Recent Foreign Travel: No Contact w/other who traveled: No Recent Hopitalizations: No Recent Infectious Disease Expo: No Immunizations Up To Date Tetanus Booster (TDap): Unknown Pediatric: No Date of Pneumonia Vaccine: Jun 11, 2013 Date of Influenza Vaccine: Aug 08, 2017 Seasonal Allergies Seasonal Allergies: No Surgeries Yes (RIGHT FOOT SURGERY) Respiratory No Currently Using CPAP: No Currently Using BIPAP: No Cardiovascular Yes (STENTS, MONITOR PLACED BY DR. REHMAN) Atrial Fibrillation, Hypertension, Peripheral Vascular Neurological No Reproductive System Hx Reproductive Disorders: No Sexually Transmitted Disease: No HIV/AIDS: No Genitourinary Yes ( KIDNEY DISEASE) Renal Failure Gastrointestinal No Musculoskeletal Yes Arthritis Endocrine History of Endocrine Disorders: Yes Endocrine Disorders: Diabetes, Insulin dep HEENT History of HEENT Disorders: Yes HEENT Disorders: Cataract Hearing Impairment: Hard of Hearing, Bilateral Hearing Aide Cancer No Psychosocial History of Psychiatric Problem: No Integumentary History of Skin or Integumenta: No Blood Transfusions History of Blood Disorders: No Reviewed Nursing Assessment Reviewed/Agree w Nursing PMH: Yes Family Medical History Significant Family History: Heart Disease, Diabetes, Hypertension, Stroke Family Hx: Alzheimer's disease 19 MOTHER, Arthritis 19 FATHER, 19 MOTHER, G8 BROTHER, G8 BROTHER, G8 BROTHER G8 SISTER G8 SISTER Cardiovascular disease 19 MOTHER, G8 BROTHER, Completed stroke 19 MOTHER, G8 SISTER Hypercholesterolemia 19 FATHER, G8 BROTHER, Hypertension 19 MOTHER, Myocardial infarction 19 FATHER, G8 BROTHER, Constitutional: dizziness, malaise, weakness EENTM: No vision loss, No hoarseness, No throat pain Respiratory: No cough, No dyspnea on exertion, No short of breath Cardiovascular: No chest pain, No palpitations Gastrointestinal: No abdominal pain, No loss of appetite, No nausea Genitourinary: no symptoms reported Musculoskeletal: No back pain, No muscle pain, No muscle weakness Skin: no symptoms reported Psychiatric/Neurological: Denies Anxiety, Denies Depressed, Weakness (LEFT LEG) All Other Systems Reviewed Negative Unless Noted: Yes Physical Exam Vital Signs Vital Signs - First Documented 12/13/17 00:40 Temp 98.7 Pulse 70 Resp 18 B/P (MAP) 148/67 (94) Pulse Ox 100 O2 Delivery Room Air Capillary Refill : Less Than 3 Seconds General Appearance: No Apparent Distress, WD/WN Eyes: Bilateral Eye Normal Inspection, Bilateral Eye PERRL, Bilateral Eye EOMI HEENT: PERRL/EOMI, Pharynx Normal Neck: Full Range of Motion, Supple Respiratory: Chest Non Tender, Lungs Clear, Normal Breath Sounds, No Accessory Muscle Use Cardiovascular: Regular Rate, Rhythm Gastrointestinal: Normal Bowel Sounds, Non Tender, Soft Rectal: Deferred Extremity: Normal Capillary Refill, Normal Inspection, Normal Range of Motion, Non Tender, No Calf Tenderness, No Pedal Edema Neurologic/Psychiatric: Alert, Oriented x3, No Motor/Sensory Deficits, Normal Mood/Affect, meals on wheels driver II-XII Norm as Tested Skin: Warm/Dry Lymphatic: No Adenopathy Assessment/Plan Assessment and Plan TIA DIABETES MELLITUS - UNCONTROLLED HYPERTENSION HYPERLIPIDEMIA TIA - CHECK MRI, STARTED ON ASPIRIN, CONTINUE WITH ELIQUIS, RESTARTED LIPITOR AND ANTIHYPERTENSIVE THERAPY. DIABETES MELLITUS - UNCONTROLLED - RESTARTED HOME MEDICATIONS - PATIENT IS TO HAVE DIABETIC EDUCATION. DISCUSSED WITH HER FAMILY THE NEED TO MODIFY HER DIET. HYPERTENSION - RESTART HOME MEDICATIONS HYPERLIPIDEMIA - RESTART LIPITOR Problems: Admission Diagnosis TIA DIABETES MELLITUS - UNCONTROLLED HYPERTENSION HYPERLIPIDEMIA Admission Status: Inpatient Order (span 2 midnights) Reason for Inpatient Admission: PT HAD TIA - NEEDS FURTHER IMAGING, MONITORING OF SYMPTOMS AND WORK-UP Clinical Quality Measures DVT/VTE Risk/Contraindication: Risk Factor Score Per Nursin RFS Level Per Nursing on Admit: 4+=Very High JONN SOW MD Dec 13, 2017 08:58
--- NOTE | 2017-12-13 09:46 | Physical Therapy Evaluation ---
PT Evaluation-General Medical Diagnosis Admission Date Dec 13, 2017 at 01:50 Medical Diagnosis: TIA vs. CVA Onset Date: Dec 13, 2017 Therapy Diagnosis Therapy Diagnosis: debility Height/Weight Height (Feet): 4 Height (Inches): 11.00 Weight (Pounds): 110 Weight (Ounces): 7.0 Precautions Precautions/Isolations: Standard Precautions Weight Bear Status Right Lower Extremity: Right Weight Bearing/Tolerated Left Lower Extremity: Left Weight Bearing/Tolerated Referral Physician: Juanjose Reason for Referral: Evaluation/Treatment Medical History Pertinent Medical History: Atrial Fib, CAD, DM, Dementia, HTN Current History ED with left UE numbness and dizzy. Uses cane at home. Just returned from [facility] 1 day prior to admit per spouse. Reviewed History: Yes Social History Home: Single Level Current Living Status: Spouse Prior/[facility] Prior Level of Function Functional Moffat Measure 0=Not Assessed/NA 4=Minimal Assistance 1=Total Assistance 5=Supervision or Setup 2=Maximal Assistance 6=Modified Moffat 3=Moderate Assistance 7=Complete Moffat Bed Mobility: 6 Transfers (B,C,W/C) (FIM): 6 Gait: 6 Spouse reports she uses a cane at home but does not do much at home otherwise. PT Evaluation-Current Subjective Patient agrees to PT. She is deaf, however, understands PT. Pain Numeric Pain Scale: 0-No Pain Location: No Pain Reported Objective Patient Orientation: Normal For Age Problem Solving: Good ROM/Strength ROM Lower Extremities bilateral LE WNL Strength Lower Extremities right knee flexion 4/5; hip flexion 4/5; DF/PF 4/5 left knee flexion 4/5; hip flexion 4/5; DF/PF 4/5 Integumentary/Posture Integumentary refer to nursing notes Bowel Incontinence: No Bladder Incontinence: No Posture WFL Neuromuscular (Tone, Coordination, Reflexes) grossly intact Sensory Vision: Functional Hearing: Deaf Sensation Right Lower Extremit: Intact Sensation Left Lower Extremity: Intact Transfers Functional Moffat Measure 0=Not Assessed/NA 4=Minimal Assistance 1=Total Assistance 5=Supervision or Setup 2=Maximal Assistance 6=Modified Moffat 3=Moderate Assistance 7=Complete M[place]at Transfers (B, C, W/C) (FIM): 6 Scootin Rollin Supine to/from Sit: 6 Sit to/from Stand: 6 Gait Mode of Locomotion: Walk Anticipated Mode of Locomotion: Walk Gait (FIM): 6 Distance (FIM): 3=150 ft Distance: 350' Gait Level of Assist: 6 Gait Assistive Device: FWW Comments/Gait Description Patient instructed spouse for patient to use FWW at home for safety. Cane ambulation is not safe for her. Balance Sitting Static: Normal Sitting Dynamic: Normal Standing Static: Normal Standing Dynamic: Normal Assessment/Needs 87 y.o. female, will be seen short term by skilled PT to ensure safe return to home with spouse at maximum LOF. Education with spouse and patient on use of FWW at home for safety and to prevent falls. Both voice understanding. Rehab Potential: Fair Post Rehab Potential-Barriers: compliance PT Short Term Goals Short Term Goals Time Frame: Dec 15, 2017 Transfers (B,C,W/C) (FIM): 6 Gait (FIM): 6 Distance (FIM): 3=150 ft Gait Level of Assist: 6 Gait Assistive Device: FWW PT Plan Problem List Problem List: Safety Treatment/Plan Treatment Plan: Continue Plan of Care Treatment Plan: Education, Functional Activity Ravi, Functional Strength, Gait , Safety, Therapeutic Exercise Treatment Duration: Dec 15, 2017 Frequency: 3 times per week Estimated Hrs Per Day: .25 hour per day Patient and/or Family Agrees t: Yes Safety Risks/Education Patient Education: Safety Issues Teaching Recipient: Patient, Significant Other Teaching Methods: Discussion Response to Teaching: Verbalize Understanding Discharge Recommendations Therapy D/C Recommendations: Home w/ Family Support, Physical Therapy Outpatient (or wellness) Equpiment Recommendations-D/C: Front Wheeled Walker (estabilished) Time/GCodes Time In: 848 Time Out: 902 Total Billed Treatment Time: 14 Total Billed Treatment 1 visit EVHigh 14 min KINGA FISHMAN PT Dec 13, 2017 09:46
--- NOTE | 2017-12-13 09:48 | ST Dysphagia Evaluation ---
Speech Evaluation-General Medical Diagnosis TIA vs. CVA Onset Date: Dec 12, 2017 Therapy Diagnosis Therapy Diagnosis: Oropharyngeal Swallow Grossly WNL Precautions Precautions/Isolations: Fall Prevention, Standard Precautions Referral Referring Physician: Dr. Kate Sow Reason for Referral: Evaluation/Treatment Clinical Bedside Swallowing Evaluation Medical History Pertinent Medical History: Atrial Fib, CAD, DM, Dementia, HTN Current History The patient experienced left sided weakness and presented to [facility] for further evaluation. At this time, the patient is being treated for TIA versus CVA. Reviewed History: Yes Speech PLF/Current-Dysphagia Prior Level of Function The patient (patient's , patient's family member) denied signs/symptoms of aspiration with any consistency she currently consumes. Additionally, the patient's RN stated the patient consumed breakfast without any difficulty. Subjective The patient was seated at the edge of bed upon entrance. The patient was agreeable to participation in the dysphagia evaluation. To note, the patient is extremely hard of hearing and does not have her hearing aids present. Cognitive Status Patient Orientation: Person, Place, Situation Oral Motor Skills Dentition: Natural Current Food Consistancy: Regular, Thin Liquids Ability to Follow Directions: Hard of Hearing Oral Expression Ability: No Impairment Voice Voice Phonatory-Based Quality: Glottal May Voice Pitch: Normal Voice Loudness: Mildly Soft/Quiet Face Facial Symmetry: Symmetrical Oral-Facial Assessment Oral-Facial Dentition: Normal Labial Seal Description: Normal Smile: Normal Lingual Protrusion: Normal Lingual ROM: Normal Lingual Strength: Normal Pharynx Velopharyngeal Move.: Normal Volitional Dry Swallow: Yes Dysphagia Evaluation Consistencies Presented: Regular, Thin Liquid, Pureed - No oral impairments were noted throughout the evaluation. - No pharyngeal impairments were noted throughout the evaluation. - The patient demonstrated one delayed throat clear following large, consecutive straw drinks of thin liquid. No signs/symptoms of aspiration were demonstrated with single straw sips of thin liquid, puree, or solid consistencies. The patient's vocal quality remained clear. Dietary Recommendations: Regular Liquid Recommendations: Thin Swallowing Precautions: Small Bites and Sips (Single.), Sitting 90 Degrees 30 Post Intake Dysphagia Evaluation Summary The patient demonstrated an oropharyngeal swallow function grossly within normal limits. Speech-Plan Treatment Plan Speech Therapy Treatment Plan: Discontinue ST Evaluation, only. Frequency: 1 time per month Estimated Hrs Per Day: .25 hour per day Rehab Potential: Good Safety Risks/Education Teaching Recipient: Patient, Family, Significant Other Teaching Methods: Discussion Response to Teaching: Verbalize Understanding Education Topics Provided: Results, Recommendations, Plan of Care, Swallowing Strategies Time Speech Therapy Time In: 09:25 Speech Therapy Time Out: 09:40 Total Billed Time: 15 Billed Treatment Time 1ESTEBAN [facility] ST Dec 13, 2017 09:48
[2017-12-13] MEDS ORDERED: PRAV20TA3 PO (10:00)
[2017-12-13] MEDS ORDERED: CARV12.52 PO (10:00)
[2017-12-13] MEDS ORDERED: PANT20TA2 PO (10:00)
[2017-12-13] MEDS ORDERED: ASPI-999 PO (10:00)
[2017-12-13] MEDS ORDERED: SITA100T12 PO (10:31)
[2017-12-13 12:00] VITALS: BP 140/63
--- NOTE | 2017-12-13 13:42 | Occupational Therapy Eval ---
OT Evaluation-General/PLF Medical Diagnosis Admission Date Dec 13, 2017 at 01:50 Medical Diagnosis: TIA vs. CVA Onset Date: Dec 12, 2017 Therapy Diagnosis Therapy Diagnosis: decreased self care Height/Weight Height (Feet): 4 Height (Inches): 11.00 Weight (Pounds): 110 Weight (Ounces): 7.0 Precautions Precautions/Isolations: Fall Prevention, Standard Precautions Safety Interventions: None Referral Physician: Juanjose Medical History Pertinent Medical History: Atrial Fib, CAD, DM, Dementia, HTN Additional Medical History right foot surgery, PVD, renal failure, [place] Reviewed History: Yes Social History Home: Single Level Current Living Status: Spouse Entry Into Home: Stairs With Railing Steps Into Home: 3 ADL-Prior Level of Function ADL PLOF Comments Pt reports being independent with basic self care. Uses cane for mobility. Minimal activity level at baseline DME/Equipment: Bath Chair, Grab Bars, Shower Drive Self: No OT Current Status Subjective Pt in bed, agrees to treatment. No c/o pain. Mental Status/Objective Patient Orientation: Person, Place Current Glasses/Contacts: Yes Hearing Aids: Yes Dentures/Partials: No Hand Dominance: Right Upper Extremity ROM WFL Upper Extremity Coordination Intact Upper Extremity Sensation intact per pt report Upper Extremity Strength Grossly 4/5 ADL-Treatment ADL-Current Pt supine to sit with modified independence. Pt donned socks with set up while seated. Pt sat EOB with good balance during UE assessment. Sit to stand with modified independence. Pt demonstrated ability to perform transfer with supervision using FWW. Pt sit to supine with modified independence. Pt in bed with needs met and family present after session. Functional [place] Measure 0=Not Assessed/NA 4=Minimal Assistance 1=Total Assistance 5=Supervision or Setup 2=Maximal Assistance 6=Modified [place] 3=Moderate Assistance 7=Complete IndependenceIRFPAI Quality Coding Scale 6 Independent with activity with or without an assistive device 5 Patient requires set up or clean up by helper. Patient completes activity by themselves 4 Supervision or touching assist (CGA). Central provide cues , steadying assist 3 The helper provides less than half the effort to complete the activity 2 The helper provides more than half the effort to complete the activity 1 Dependent. The helper does all the effort to complete an activity 7 Patient refused to complete or attempt activity 9 The patient did not perform the activity before the current illness or injury 88 Not attempted due to Medical conditions or safety concerns Lower Body Dressing (FIM): 5 Toilet/Commode Transfer (FIM): 5 Education OT Patient Education: Rehab process Teaching Recipient: Patient Teaching Methods: Discussion Response to Teaching: Verbalize Understanding OT Short Term Goals Short Term Goals Transfers (B,C,W/C) (FIM): 6 1=Demonstrate adherence to instructed precautions during ADL tasks. 2=Patient will verbalize/demonstrate understanding of assistive devices/ modifications for ADL. 3=Patient will improve strength/tolerance for activity to enable patient to perform ADL's. OT Snf Goals Snf Goals Time Frame: Dec 20, 2017 Grooming(FIM): 6 Bathing(FIM): 5 Upper Body Dressing(FIM): 6 Lower Body Dressing(FIM): 6 Toileting(FIM): 6 Toilet/Commode Transfer(FIM): 6 Additional Goals: 2-Verbalize Understanding, 3-ImproveStrength/Ravi 1=Demonstrate adherence to instructed precautions during ADL tasks. 2=Patient will verbalize/demonstrate understanding of assistive devices/ modifications for ADL. 3=Patient will improve strength/tolerance for activity to enable patient to perform ADL's. OT Education/Plan Problem List/Assessment Assessment: Dependent Transfers, Impaired Self-Care Skills Discharge Recommendations Plan/Recommendations: Continue POC Treatment Plan/Plan of Care Treatment,Training & Education: Yes Patient would benefit from OT for education, treatment and training to promote independence in ADL's, mobility, safety and/or upper extremity function for ADL' s. Plan of Care: ADL Retraining, Functional Mobility, UE Funct Exercise/Act Treatment Duration: Dec 20, 2017 Frequency: 5 times per week Estimated Hrs Per Day: .25 hour per day Rehab Potential: Good Time/GCodes Start Time: 11:25 Stop Time: 11:40 Total Time Billed (hr/min): 15 Billed Treatment Time 1 visit, SHIRA(15minutes) ELISA WIN OT Dec 13, 2017 13:42
[2017-12-13] MEDS ORDERED: GADOBUTROL 7.5 MMOL/7.5 ML (GADAVIST) VIAL IV ONE (14:30)
--- NOTE | 2017-12-13 15:17 | Diagnostic Imaging Report ---
CLINICAL INDICATION: Patient had syncopal episode with left arm numbness. Patient has history of cataract surgery. EXAM: MRI of the brain/ IACs performed without and with 4 cc of Gadavist IV contrast. Sequences include sagittal T1 localizer, axial T2, axial flair, axial T1, axial gradient echo, DWI, ADC map, axial T1 thin, axial T2 thin, coronal T1 thin, axial T2 3D SPACE, axial T1 post contrast whole brain, coronal T1 fat-sat post IV contrast whole brain, sagittal T1 post IV contrast whole brain, axial T1 post IV contrast thin fat sat, and coronal T1 post IV contrast thin. COMPARISONS: None. FINDINGS: TEMPORAL BONE STRUCTURES: There is a small caliber vascular loop seen in the region of the internal auditory meatus adjacent to seventh and eighth cranial nerves. Otherwise, the remainder of the temporal bone structures are unremarkable. The internal auditory canal, otic capsule, middle ear, and temporal bone structures have normal anatomic appearance and are unremarkable. There is no abnormal fluid in the mastoid air cells seen. The visualized nerves VII and VIII within the IACs bilaterally and cisternal portions have normal appearance. CISTERNAL STRUCTURES: There is no cisternal mass seen. The remainder of the visualized cranial nerves in the basal cistern regions are unremarkable. BRAIN PARENCHYMA: There is a 6 mm area of low gradient echo signal in the right parietal lobe which may be an area of remote microhemorrhage or cavernous malformation. Is a small area of encephalomalacia and confluent high T2 signal in this region near the area of residual hemosiderin. There is focal, patchy and confluent areas of high T2 signal white matter changes seen throughout both cerebral hemispheres and periventricular regions, likely representing chronic small vessel ischemic disease and leukoaraiosis. There is diffuse brain parenchymal volume loss seen. There is no significant architectural distortion, midline shift, or herniation. There is no abnormal IV contrast enhancement or diffusion restriction signal changes. VENTRICLES: There is no hydrocephalus. VISUALIZED INTRACRANIAL VESSELS: Unremarkable as visualized. SKULL/ ORBITS: Unremarkable. VISUALIZED PARANASAL SINUSES: There is mild ethmoid sinus mucosal thickening. IMPRESSION: 1: There is a small caliber vascular loop seen in the region of the right internal auditory canal meatus adjacent to the seventh and eighth cranial nerves. Otherwise, unremarkable MRI of the internal auditory canals, temporal bone structures, and basal cisterns. There is no abnormal IV contrast enhancement. 2: There is no evidence of acute intracranial process. 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 4: Chronic small vessel ischemic disease and leukoaraiosis. Dictated by: Dictated on workstation # [id number]
[2017-12-13 15:20] VITALS: BP 145/65
[2017-12-13 19:40] VITALS: BP 117/51
[2017-12-13] MEDS ORDERED: ATORVASTATIN 40 MG (LIPITOR) TABLET PO SCH (21:00)
[2017-12-14] VITALS: BP 147/64
[2017-12-14 04:00] VITALS: BP 139/65
[2017-12-14] MEDS: CARVEDILOL 12.5 MG (COREG) TABLET PO SCH (06:03)
[2017-12-14] MEDS: inSUlin (REGULAR) HUMAN 1 UNIT/0.01 ML (CHARGE PER UNIT) SC SCH (06:03)
[2017-12-14 08:00] VITALS: BP 131/58
[2017-12-14] MEDS: APIXABAN 5 MG (ELIQUIS) TABLET PO SCH (08:35)
[2017-12-14] MEDS: LOSARTAN 50 MG (COZAAR) TAB PO SCH (08:35)
[2017-12-14] MEDS: ASPIRIN 81 MG CHEW (CHILDREN'S ASA) PO SCH (08:36)
[2017-12-14] MEDS: amLODIPine 2.5MG (NORVASC) TAB PO SCH (08:37)
[2017-12-14] MEDS ORDERED: APIX2.5T PO (09:37)
[2017-12-14] MEDS ORDERED: ASPI-999 PO (09:37)
--- NOTE | 2017-12-14 09:38 | Discharge Inst-Complex ---
PDI Med Rec & Follow Up Appt. New Medications: Apixaban (Eliquis) 2.5 Mg Tablet 2.5 MG PO BID, #60 TAB 6 Refills Aspirin (Aspirin) 81 Mg Tab.chew 81 MG PO DAILY@0900, #90 TAB 3 Refills Continued Medications: Amlodipine Besylate (Amlodipine Besylate) 2.5 Mg Tablet 2.5 MG PO DAILY, TAB LAST FILLED #30 18 Atorvastatin Calcium (Atorvastatin Calcium) 40 Mg Tablet 40 MG PO HS, TAB LAST FILLED #30 18 Carvedilol (Coreg) 12.5 Mg Tablet 12.5 MG PO BID, TAB LAST FILLED #60 18 Dronedarone HCl (Multaq) 400 Mg Tablet 400 MG PO BID, TAB LAST FILLED #60 09-08-17 Furosemide (Furosemide) 20 Mg Tablet 20 MG PO DAILY PRN for SWELLING, TAB LAST FILLED #3 09-08-17 Insulin Glargine,Hum.rec.anlog (Toujeo Solostar) 300 Unit/1 Ml Insuln.pen 32 UNIT SQ HS, EA Insulin Lispro (Humalog Kwikpen) 100 Unit/1 Ml Insuln.pen SQ UD, EA USE 18 UNITS WITH MEALS PLUS CORRECTION Losartan Potassium (Losartan Potassium) 50 Mg Tablet 50 MG PO DAILY, TAB Pantoprazole Sodium (Protonix) 20 Mg Tablet.dr 20 MG PO DAILY, TAB LAST FILLED #30 09-21-17 Potassium Chloride (Potassium Chloride) 10 Meq Tablet.er 10 MEQ PO DAILY PRN for WITH FUROSEMIDE, TAB LAST FILLED #3 09-08-17 Sitagliptin Phosphate (Januvia) 100 Mg Tablet 50 MG PO DAILY, TAB LAST RECEIVED UNKNOWN QUANTITIY OF SAMPLES IN SEPTEMBER TAKE 1/2 (100MG) TABLET Discontinued Medications: Apixaban (Eliquis) 5 Mg Tablet 5 MG PO BID, TAB LAST FILLED #60 09-08-17 Metoprolol Succinate (Metoprolol Succinate) 25 Mg Tab.er.24h 25 MG PO DAILY, TAB Pravastatin Sodium (Pravastatin Sodium) 20 Mg Tablet 20 MG PO HS, TAB LAST FILLED #30 08-29-17 & #7 09-08-17 Prescription: Transmitted to Pharmacy Activity, Diet and PDI Resume Normal Activity: Yes Discharge Diet: ADA Diet Drink 6-8 Glasses of Fluid/Day: Yes Driving Instructions: No Driving for 24 Hours Symptoms to Reoprt to : Appetite Changes, Fever Over 101 Degrees F, Pain/ Pressure in Chest, Memory Changes Suddenly For Problems or Questions: Contact Your Physician, Go to Emergency Room JONN YAO MD Dec 14, 2017 09:38
--- NOTE | 2017-12-14 09:40 | Discharge Summary ---
Diagnosis/Chief Complaint Date of Admission Dec 13, 2017 at 01:50 Date of Discharge Discharge Date: Dec 14, 2017 Discharge Time: 1030 Admission Diagnosis Admission Diagnosis TIA DIABETES MELLITUS - UNCONTROLLED HYPERTENSION HYPERLIPIDEMIA Discharge Diagnosis TIA DIABETES MELLITUS - UNCONTROLLED HYPERTENSION HYPERLIPIDEMIA Reason Hospital Visit PT IS AN 87 Y/O FEMALE WHO IS KNOWN TO ME FROM CLINIC. SHE STATES THAT SHE HAD BEEN FEELING WELL, A LITTLE FATIGUED ON RETURN FROM [facility] TO VISIT FAMILY. SHE REPORTS THAT SHE HAS NOT BEEN FOLLOWING HER DIABETIC DIET DIRECTED. SHE WAS FEELING FAIRLY WELL UNTIL EARLY THIS MORNING WHEN SHE HAD WEAKNESS, CONFUSION, WEAKNESS OF ARM/LEG ON LEFT - Discharge Summary Discharge Physical Examination Allergies: Coded Allergies: No Known Drug Allergies (Unverified , 11/03/09) Vitals & I&Os Vital Signs Date Time Temp Pulse Resp B/P (MAP) Pulse Ox O2 Delivery O2 Flow Rate FiO2 12/14/17 10:35 56 18 131/58 98 Room Air 12/14/17 08:00 98.0 General Appearance: Alert, Oriented X3, Cooperative HEENT: Atraumatic, PERRLA, EOMI, Mucous Memb Moist/Hallam Respiratory: Clear to Auscultation Cardiovascular: Regular Rate Abdominal: Normal Bowel Sounds, Soft Extremities: No Clubbing Skin: No Rashes Neuro: Strength at 5/5 X4 Ext, Cranial Nerves 3-12 NL Psych/Mental Status: Mental Status NL, Mood NL Hospital Course TIA DIABETES MELLITUS - UNCONTROLLED HYPERTENSION HYPERLIPIDEMIA TIA - CHECK MRI, STARTED ON ASPIRIN, CONTINUE WITH ELIQUIS, RESTARTED LIPITOR AND ANTIHYPERTENSIVE THERAPY. MRI REPORT FOLLOWS: IMPRESSION: 1: There is a small caliber vascular loop seen in the region of the right internal auditory canal meatus adjacent to the seventh and eighth cranial nerves. Otherwise, unremarkable MRI of the internal auditory canals, temporal bone structures, and basal cisterns. There is no abnormal IV contrast enhancement. 2: There is no evidence of acute intracranial process. 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 4: Chronic small vessel ischemic disease and leukoaraiosis. DIABETES MELLITUS - UNCONTROLLED - RESTARTED HOME MEDICATIONS - PATIENT IS TO HAVE DIABETIC EDUCATION. DISCUSSED WITH HER FAMILY THE NEED TO MODIFY HER DIET. HYPERTENSION - RESTART HOME MEDICATIONS HYPERLIPIDEMIA - RESTART LIPITOR PT DISCHARGED TO HOME WITH PLANS FOR OUTPATIENT PHYSICAL THERAPY. Pending Labs Discharge Condition at discharge IMPROVED Instructions to patient/family Please see electronic discharge instructions given to patient. Discharge Medications Reviewed and agree with Discharge Medication list on patient's Discharge Instruction sheet Clinical Quality Measures DVT/VTE Risk/Contraindication: Risk Factor Score Per Nursin RFS Level Per Nursing on Admit: 4+=Very High JONN YAO MD Dec 14, 2017 09:40
[2017-12-14 10:35] VITALS: BP 131/58
--- NOTE | 2017-12-15 13:43 | Physician Query Clarification ---
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 Treatment: Eliquis 5 mg, Aspirin 81mg-Discharged to home with plans for outpatient physical therapy. Question: Do you agree with the impression of the CVA per MRI report or TIA as diagnosis after study? Please document a response below. In responding to this query, please exercise your independent professional judgment. The purpose of this communication is to more accurately reflect the complexity of your patients condition. The fact that a question is asked does not imply that any particular answer is desired or expected. Thank you for your timely response to this clarification. Requestors name: [ ] Phone # [ ] THIS PHYSICIAN QUERY FORM IS A PERMANENT PART OF THE MEDICAL RECORD KATHY FLORES Dec 15, 2017 13:43
--- NOTE | 2017-12-15 13:55 | Physician Query Clarification ---
PQ-Further Specificity Admission/Discharge Admission Date: Dec 13, 2017 at 01:50 Discharge Date: Dec 14, 2017 at 10:35 The medical record reflects the following clinical scenario: History/Risk Factors: Weakness of arm/leg on left Confusion Clinical Findings: MRI:There is a small chronic hemorrhagic infarction involving the right parietal lobe. Treatment: Eliquis 5mg, Aspirin 81mg-Discharged to home with plan for outpatient physical therapy. Question: Can you further specify Final discharge diagnosis per the clinical indicators above? There was confusion on your discharge summary, when you gave a diagnosis of TIA , but listed the findings on the MRI also. For clarification, would you please document which diagnosis should be coded. Thank you. 1. TIA ON THIS VISIT - HX OF CVA PHYSICIAN RESPONSE Can you specify per above: Other, explanation/clinical finding In responding to this query, please exercise your independent professional judgment. The purpose of this communication is to more accurately reflect the complexity of your patients condition. The fact that a question is asked does not imply that any particular answer is desired or expected. Thank you for your timely response to this clarification. Requestors name: Tena Flores [facility] Phone # ext [phone] or [phone] THIS PHYSICIAN QUERY FORM IS A PERMANENT PART OF THE MEDICAL RECORD TENA FLORES Dec 15, 2017 13:55 JONN YAO MD Dec 15, 2017 14:22
== END 2017-12-14 10:35 | disposition home or self-care (01) | DRG 69 ==
LOC: EDUNIT# 00:33 → ER 00:34 → 4TH 01:50
PROVIDERS: ADMIT Family Medicine; ATTEND Family Medicine
DX: G45.9 Transient cerebral ischemic attack, unspecified (principal); G81.94 Hemiplegia, unspecified affecting left nondominant side; R42 Dizziness and giddiness; E11.51 Type 2 diabetes mellitus with diabetic peripheral angiopathy without gangrene; Z91.11 Patient's noncompliance with dietary regimen; I10 Essential (primary) hypertension; E78.5 Hyperlipidemia, unspecified; I48.0 Paroxysmal atrial fibrillation; I25.10 Atherosclerotic heart disease of native coronary artery without angina pectoris; N28.9 Disorder of kidney and ureter, unspecified; M19.041 Primary osteoarthritis, right hand; M19.042 Primary osteoarthritis, left hand; I65.23 Occlusion and stenosis of bilateral carotid arteries; H91.93 Unspecified hearing loss, bilateral; R29.703 NIHSS score 3; Z86.73 Personal history of transient ischemic attack (TIA), and cerebral infarction without residual deficits; Z79.4 Long term (current) use of insulin; Z97.4 Presence of external hearing-aid; Z95.5 Presence of coronary angioplasty implant and graft; Z79.01 Long term (current) use of anticoagulants; Z79.82 Long term (current) use of aspirin
CPT/HCPCS: 36415; 70450; 70553; 71045; 80053; 82962; 84484; 85025; 85379; 85610; 85730; 93005; 93041; 96374

== ENCOUNTER 2017-12-18 04:14 | Emergency (ER) | payer MEDICARE, OTHER ==
[~2017-12-18] VITALS: Ht 149.9 cm; Wt 50.1 kg
[~2017-12-18 04:14] MED LIST changes: +APIX2.5T PO; +CARV12.52 PO; +PANT20TA2 PO; +SITA100T12 PO
--- NOTE | 2017-12-18 04:25 | ED Neurological Problem ---
General Stated Complaint: HEART ISSUES Source: patient, spouse Exam Limitations: physical impairment ([place]) History of Present Illness Date Seen by Provider: Dec 18, 2017 Time Seen by Provider: 04:10 Initial Comments Last known well time 354. Patient woke her spouse up complaining of numbness in bilateral upper extremities. She had some weakness but no facial droop or slurred speech. Patient was recently released from the hospital on was told she might have had a stroke. She says she was taken off of the Eliquis and multaq. Discharge medication reconciliation demonstrates that the Eliquis was cut from 5 -2.5 mg twice a day. She was also switched from pravastatin to atorvastatin. She was also kept on the Multaq. Allergies and Home Medications Allergies Coded Allergies: No Known Drug Allergies (Unverified , 11/03/09) Home Medications Amlodipine Besylate 2.5 Mg Tablet, 2.5 MG PO DAILY, (Reported) LAST FILLED #30 10-17-17 Apixaban 2.5 Mg Tablet, 2.5 MG PO BID Prescribed by: JONN YAO on 12/14/17 09 Aspirin 81 Mg Tab.chew, 81 MG PO DAILY@0900 Prescribed by: JONN YAO on 12/14/17 0937 Atorvastatin Calcium 40 Mg Tablet, 40 MG PO HS, (Reported) LAST FILLED #30 10-17-17 Carvedilol 12.5 Mg Tablet, 12.5 MG PO BID, (Reported) LAST FILLED #60 09-21-17 Dronedarone HCl 400 Mg Tablet, 400 MG PO BID, (Reported) LAST FILLED #60 09-08-17 Furosemide 20 Mg Tablet, 20 MG PO DAILY PRN for SWELLING, (Reported) LAST FILLED #3 09-08-17 Insulin Glargine,Hum.rec.anlog 300 Unit/1 Ml Insuln.pen, 32 UNIT SQ HS, ( Reported) Insulin Lispro 100 Unit/1 Ml Insuln.pen, SQ UD, (Reported) USE 18 UNITS WITH MEALS PLUS CORRECTION Losartan Potassium 50 Mg Tablet, 50 MG PO DAILY, (Reported) Pantoprazole Sodium 20 Mg Tablet.dr, 20 MG PO DAILY, (Reported) LAST FILLED #30 09-21-17 Potassium Chloride 10 Meq Tablet.er, 10 MEQ PO DAILY PRN for WITH FUROSEMIDE, ( Reported) LAST FILLED #3 09-08-17 Sitagliptin Phosphate 100 Mg Tablet, 50 MG PO DAILY, (Reported) LAST RECEIVED UNKNOWN QUANTITIY OF SAMPLES IN SEPTEMBER TAKE 1/2 (100MG) TABLET Patient Home Medication List Home Medication List Reviewed: Yes Constitutional: see HPI (review of systems is difficult to obtain secondary to the patient being profoundly hard of hearing and not wearing her hearing aids.) , No chills, No diaphoresis Eyes: Denies Blindness, Denies Blurred Vision Ears, Nose, Mouth, Throat: denies ear pain, denies nose pain Respiratory: No cough, short of breath Cardiovascular: No chest pain, No syncope Gastrointestinal: No abdominal pain, No nausea Past Hvhpzqw-Ectwbb-Mtmhlj Hx Patient Social History Alcohol Use: Occasionally Uses Alcohol Beverage of Choice: Rum Recreational Drug Use: No Smoking Status: Never a Smoker 2nd Hand Smoke Exposure: No Recent Hopitalizations: No Immunizations Up To Date Tetanus Booster (TDap): Unknown PED Vaccines UTD: No Date of Pneumonia Vaccine: Jun 11, 2013 Date of Influenza Vaccine: Aug 08, 2017 Seasonal Allergies Seasonal Allergies: No Surgeries History of Surgeries: Yes (RIGHT FOOT SURGERY) Respiratory History of Respiratory Disorde: No Currently Using CPAP: No Currently Using BIPAP: No Cardiovascular History of Cardiac Disorders: Yes (STENTS, MONITOR PLACED BY DR. REHMAN) Cardiac Disorders: Atrial Fibrillation, Hypertension, Peripheral Vascular Neurological History of Neurological Disord: No Reproductive System Hx Reproductive Disorders: No Sexually Transmitted Disease: No HIV/AIDS: No Genitourinary History of Genitourinary Disor: Yes ( KIDNEY DISEASE) Genitourinary Disorders: Renal Failure Gastrointestinal History of Gastrointestinal Di: No Musculoskeletal History of Musculoskeletal Dis: Yes Musculoskeletal Disorders: Arthritis Endocrine History of Endocrine Disorders: Yes Endocrine Disorders: Diabetes, Insulin dep HEENT History of HEENT Disorders: Yes HEENT Disorders: Cataract Hearing Impairment: Hard of Hearing, Bilateral Hearing Aide Cancer History of Cancer: No Psychosocial History of Psychiatric Problem: No Integumentary History of Skin or Integumenta: No Blood Transfusions History of Blood Disorders: No Family Medical History Significant Family History: Heart Disease, Diabetes, Hypertension, Stroke Family Medial History: Alzheimer's disease 19 MOTHER, Arthritis 19 FATHER, 19 MOTHER, G8 BROTHER, G8 BROTHER, G8 BROTHER G8 SISTER G8 SISTER Cardiovascular disease 19 MOTHER, G8 BROTHER, Completed stroke 19 MOTHER, G8 SISTER Hypercholesterolemia 19 FATHER, G8 BROTHER, Hypertension 19 MOTHER, Myocardial infarction 19 FATHER, G8 BROTHER, Physical Exam Vital Signs Vital Signs - First Documented Capillary Refill : General Appearance: WD/WN, no apparent distress HEENT: PERRL/EOMI, normal ENT inspection, TMs normal, pharynx normal Neck: non-tender, normal inspection Respiratory: chest non-tender, lungs clear, normal breath sounds, no respiratory distress, no accessory muscle use Cardiovascular: normal peripheral pulses, regular rate, rhythm, no edema Peripheral Pulses: 2+ Dorsalis Pedis (R), 2+ Left Dors-Pedis (L), 2+ Radial Pulses (R), 2+ Radial Pulses (L) Gastrointestinal: normal bowel sounds, non tender, soft 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, no motor/sensory deficits, alert, normal mood/affect, oriented x 3, other (profoundly hard of hearing) Crainal Nerves: No normal hearing, normal speech, PERRL Coordination/Gait: normal gait Motor/Sensory: no motor deficit, no sensory deficit, no pronator drift Skin: normal color, warm/dry Stroke Onset of Symptoms Date of Onset of Symptoms: Dec 18, 2017 Time of Symptom Onset: 03:55 Onset of Symptoms: Yes Symptoms onset unknown: No NIH Stroke Scale Assessment Select: Initial Level of Consciousness: 0=Alert (0), Level of Consciousness- Questions: 0=Answers both month/age (0), LOC Commands: 0=Performs both tasks (0) , Gaze: Normal (0), Visual Escoto: 0=No visual loss (0), Facial Movement ( Facial Paresis): 0=Normal symmetrical mnt (0), Motor Function-Arms Right: 0=No drift (0), Motor Function-Arms Left: 0=No drift (0), Motor Function-Legs Right: 0=No drift (0), Motor Function-Legs Left: 0=No drift (0), Limb Ataxia: 0=Absent (0), Sensory: 0=Normal:no loss (0), Best Language: 0=No aphasia (0), Dysarthria : 0=Normal (0), Extinction & Inattention: 0=No abnormality (0), Total: 0 Stroke Thrombolytic Exclusion Age 18 or Over: Yes Acute intenal hemorrhage: No History of CVA: No Uncontrolled Coagulation Defec: No Intracranial Hemorrhage: No Severe Hypertension: No GI or Bleed: No Subarachnoid Hemorrhage: No Intracranial Neoplasm/Aneurysm: No Oral Anticoagulants: Yes Surgery or Trauma: No Puncture of Non-Compressible V: No Recent CPR: No Diabetic Hemorrhagic Retinopat: No Organ Biopsy: No Recent Obstetric Delivery: No Glucose: Yes (138) Significant Hepatic Dysfunctio: No NIH Stoke Scale >22: No Bacterial Endocarditis: No Pericarditis: No Improving Symptoms: Yes Platelets: No TPA Contraindication: Yes IV - TPa Received IV - TPa Procedure Performed?: No Progress/Results/Core Measures Results/Orders Lab Results Laboratory Tests Test 12/18/17 04:30 12/18/17 04:40 Range/Units White Blood Count 8.0 4.3-11.0 10^3/uL Red Blood Count 4.49 4.35-5.85 10^6/uL Hemoglobin 13.0 11.5-16.0 G/DL Hematocrit 39 35-52 % Mean Corpuscular Volume 87 80-99 FL Mean Corpuscular Hemoglobin 29 25-34 PG Mean Corpuscular Hemoglobin Concent 33 32-36 G/DL Red Cell Distribution Width 15.6 H 10.0-14.5 % Platelet Count 410 H 130-400 10^3/uL Mean Platelet Volume 10.7 H 7.4-10.4 FL Neutrophils (%) (Auto) 30 L 42-75 % Lymphocytes (%) (Auto) 54 H 12-44 % Monocytes (%) (Auto) 10 0-12 % Eosinophils (%) (Auto) 6 0-10 % Basophils (%) (Auto) 0 0-10 % Neutrophils # (Auto) 2.4 1.8-7.8 X 10^3 Lymphocytes # (Auto) 4.3 H 1.0-4.0 X 10^3 Monocytes # (Auto) 0.8 0.0-1.0 X 10^3 Eosinophils # (Auto) 0.5 H 0.0-0.3 10^3/uL Basophils # (Auto) 0.0 0.0-0.1 10^3/uL Prothrombin Time 13.0 12.2-14.7 SEC INR Comment 1.0 0.8-1.4 Activated Partial Thromboplast Time 24 24-35 SEC D-Dimer 0.38 0.00-0.49 UG/ML Sodium Level 138 135-145 MMOL/L Potassium Level 4.1 3.6-5.0 MMOL/L Chloride Level 110 H 98-107 MMOL/L Carbon Dioxide Level 22 21-32 MMOL/L Anion Gap 6 5-14 MMOL/L Blood Urea Nitrogen 20 H 7-18 MG/DL Creatinine 0.99 0.60-1.30 MG/DL Estimat Glomerular Filtration Rate 53 BUN/Creatinine Ratio 20 Glucose Level 157 H 70-105 MG/DL Calcium Level 9.2 8.5-10.1 MG/DL Total Bilirubin 0.3 0.1-1.0 MG/DL Aspartate Amino Transf (AST/SGOT) 21 5-34 U/L Alanine Aminotransferase (ALT/SGPT) 18 0-55 U/L Alkaline Phosphatase 92 40-136 U/L Troponin I < 0.30 <0.30 NG/ML Total Protein 5.7 L 6.4-8.2 GM/DL Albumin 3.1 L 3.2-4.5 GM/DL Glucometer 138 H 70-110 MG/DL My Orders Orders - SABINA,IVONNE J Cbc With Automated Diff (12/18/17 04:18) Protime With Inr (12/18/17 04:18) Partial Thromboplastin Time (12/18/17 04:18) Comprehensive Metabolic Panel (12/18/17 04:18) Fibrin Degradation Products (12/18/17 04:18) Troponin I (12/18/17 04:18) Ua Culture If Indicated (12/18/17 04:18) Chest 1 View, Ap/Pa Only (12/18/17 04:18) Ekg Tracing (12/18/17 04:18) Nothing By Mouth (12/18/17 Breakfast) Accucheck Stat ONCE (12/18/17 04:18) Saline Lock/Iv-Start (12/18/17 04:18) Saline Lock/Iv-Start (12/18/17 04:18) Vital Signs Stroke Patient Q15M (12/18/17 04:18) Ct Head Wo-R/O Stroke (12/18/17 04:18) O2 (12/18/17 04:18) Intake & Output 06,14,22 (12/18/17 04:18) Monitor-Rhythm Ecg Trace Only (12/18/17 04:18) Dysphagia Screening Tool (12/18/17 04:18) Vital Signs/I&O Vital Sign - Last 12Hours 12/18/17 12/18/17 04:20 04:20 Temp 96.9 Pulse 54 Resp 18 B/P (MAP) 126/52 (76) Pulse Ox 95 95 O2 Delivery Room Air Room Air Progress Note #1: Time: 04:54 Progress Note NIH of 0. Just some subjective numbness in her bilateral arms however she seems to have good feeling in them. Could be cervical radiculopathy versus insufficient blood supply to her arms however she has warm extremities with good pulses. Very difficult to get a good exam or history from her given her profound hardness of hearing and not bringing her hearing aids with her. Her is also similarly hard of hearing. They do seem to be confused about what medicines she is supposed to be on. Progress Note #2: Time: 05:58 Progress Note The patient reported to her nurse that she has no longer having any numbness in her left arm and never had any numbness in her right arm however she is now having some pain behind her left knee. TIA versus cervical radiculopathy versus? . Reexamination of her neck on the left side does re-create some pain in her shoulder and arm as well as pressing over the L5-S1 facet joint on the left re- creates sciatic pain down her leg to her knee. She says this morning when she woke up she had that pain on both legs but now it's just on her left leg down to the knee. She's had no trauma. She is on blood thinners so a blood clot is very unlikely and this also precludes the use of NSAIDs. We can use Tylenol in addition to her daily aspirin and topical creams. Her primary care physician may consider things such as physical therapy, steroids or even local injections. However the spouse and I would like to avoid steroids with her recent history of very labile blood sugars. The spouse states that they have an appointment either this or Monday with the primary care physician and they were already considering doing physical therapy. ECG Initial ECG Impression Date: Dec 18, 2017 Initial ECG Impression Time: 04:15 Initial ECG Rate: 56 Initial ECG Rhythm: Normal Sinus Initial ECG Intervals: Normal Initial ECG Impression: Normal Initial ECG Comparisson: Unchanged Comment No ST segment elevation or depression. Diagnostic Imaging Diagonstic Imaging: CT Plain Films/CT/US/NM/MRI: head Comments No acute findings. Reviewed: Reviewed by Me Departure Impression Impression: Primary Impression: Cervical radiculopathy Additional Impression: Lumbago with sciatica, left side Qualified Codes: M54.42 - Lumbago with sciatica, left side Disposition: 01 HOME, SELF-CARE Condition: Stable Departure-Patient Inst. Decision time for Depature: 06:11 Referrals: JONN YAO MD (PCP/Family) Primary Care Physician Patient Instructions: Radiculopathy (DC) Add. Discharge Instructions: Use Tylenol 1000 mg every 8 hours on a schedule for the next week to see if this doesn't help with some of your pain. You can also use creams such as icy hot, Biofreeze etc. over her back and neck see if that doesn't help with her symptoms. Stay active. Follow up with your primary care physician this week or next to discuss other management of your left sciatica and left neck nerve pain/ numbness. Return to the ER if he started to have slurred speech, facial droop or other weakness. Copy Copies To 1: JONN YAO MD, TITUS J Dec 18, 2017 04:25
--- OUTSIDE RECORDS SUMMARY | 2017-12-18 04:27 | XMS REPORT | Continuity of Care Document ---
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 LONG-TERM (CURRENT) USE OF INSULIN 05/26/2017 DANIEL WEINSTEIN MD Ot 959.7 LOWER LEG INJURY NOS 05/26/2017 DANIEL WEINSTEIN MD Ot E888.9 FALL NOS 05/26/2017 TAMMIE REHMAN MD Ot 414.00 CORON ATHEROSCLER NOS TYPE VESSEL, NATIV 05/26/2017 TAMMIE REHMAN MD Ot 427.31 ATRIAL FIBRILLATION 05/26/2017 TAMMIE REHMAN MD Ot 433.30 MULT BILTRAL ARTERY OCCLUSION WO CEREBRA 05/26/2017 TAMMIE REHMAN MD Ot V58.69 OT MED,LT,CURRENT USE 05/26/2017 BRUNILDA BAKER Ot E78.5 HYPERLIPIDEMIA, UNSPECIFIED 05/26/2017 Ot 250.02 DIAB ANDREEA WO COMPL, TYPE II OR UNSPEC TY 05/26/2017 Ot 401.9 HYPERTENSION NOS 05/26/2017 TAMMIE REHMAN MD Ot 272.4 HYPERLIPIDEMIA NEC/NOS 05/26/2017 TAMMIE REHMAN MD Ot 401.9 HYPERTENSION NOS 05/26/2017 TAMMIE REHMAN MD Ot 414.00 CORON ATHEROSCLER NOS TYPE VESSEL, NATIV 05/26/2017 TAMMIE REHMAN MD Ot 433.10 CAROTID ARTERY OCCLUSION W O CEREBRAL IN 05/26/2017 TAMMIE REHMAN MD Ot 786.50 CHEST PAIN NOS 05/26/2017 Ot 272.4 HYPERLIPIDEMIA NEC/NOS 05/26/2017 DESTINEE JOHNSON DO Ot 250.00 DIAB ANDREEA WO COMPL, TYPE II OR UNSPEC TY 05/26/2017 NAJMA DAHL, JONN Prieto Ot R06.00 DYSPNEA, UNSPECIFIED 05/26/2017 LACHO BROWER DO Ot J30.9 ALLERGIC RHINITIS, UNSPECIFIED 05/26/2017 LAHCO BROWER DO Ot R05 COUGH 05/26/2017 LACHO BROWER DO Ot R06.02 SHORTNESS OF BREATH 05/26/2017 BRUNILDA BAKER Ot E78.2 MIXED HYPERLIPIDEMIA 05/26/2017 BRUNILDA BAKER Ot I10 ESSENTIAL (PRIMARY) HYPERTENSION 05/26/2017 BRUNILDA BAKER Ot I25.10 ATHSCL HEART DISEASE OF [place] CORONARY 05/26/2017 BRUNILDA BAKER Ot I48.0 PAROXYSMAL ATRIAL FIBRILLATION 05/26/2017 BRUNILDA BAKER Ot I65.23 OCCLUSION AND STENOSIS OF BILATERAL [place] 05/26/2017 DESTINEE JOHNSON DO Ot E11.9 TYPE 2 DIABETES MELLITUS WITHOUT COMPLIC 05/26/2017 BRUNILDA BAKER Ot E78.2 MIXED HYPERLIPIDEMIA 05/26/2017 BRUNILDA BAKER Ot I10 ESSENTIAL (PRIMARY) HYPERTENSION 05/26/2017 BRUNILDA BAKER Ot I25.10 ATHSCL HEART DISEASE OF [place] CORONARY 05/26/2017 BRUNILDA BAKER Ot I48.0 PAROXYSMAL ATRIAL FIBRILLATION 05/26/2017 BRUNILDA BAKER Ot I65.23 OCCLUSION AND STENOSIS OF BILATERAL [place] 05/26/2017 DESTINEE JOHNSON DO Ot R94.4 ABNORMAL RESULTS OF KIDNEY FUNCTION STUD 05/26/2017 BRUNILDA BAKER Ot E11.9 TYPE 2 DIABETES MELLITUS WITHOUT COMPLIC 05/26/2017 BRUNILDA BAKER Ot E78.2 MIXED HYPERLIPIDEMIA 05/26/2017 BRUNILDA BAKER Ot I10 ESSENTIAL (PRIMARY) HYPERTENSION 05/26/2017 BRUNILDA BAKER Ot I48.0 PAROXYSMAL ATRIAL FIBRILLATION 05/26/2017 BRUNILDA BAKER Ot I65.23 OCCLUSION AND STENOSIS OF BILATERAL [place] 05/26/2017 DESTINEE JOHNSON DO Ot E11.9 TYPE 2 DIABETES MELLITUS WITHOUT COMPLIC 05/29/2017 SELMA RUIZ MD Ot E11.9 TYPE 2 DIABETES MELLITUS WITHOUT COMPLIC 05/29/2017 SELMA RUIZ MD Ot I10 ESSENTIAL (PRIMARY) HYPERTENSION 05/29/2017 SELMA RUIZ MD Ot I48.0 PAROXYSMAL ATRIAL FIBRILLATION 05/29/2017 SELMA RUIZ MD Ot I73.9 PERIPHERAL VASCULAR DISEASE, UNSPECIFIED 05/29/2017 SELMA RUIZ MD Ot M19.90 UNSPECIFIED OSTEOARTHRITIS, UNSPECIFIED 05/29/2017 SELMA RUIZ MD Ot R07.89 OTHER CHEST PAIN 05/29/2017 SELMA RUIZ MD, Ot Z79.01 SENIOR CARE (CURRENT) USE OF ANTICOAGULANT 05/29/2017 SELMA RUIZ MD Ot Z79.4 SENIOR CARE (CURRENT) USE OF INSULIN 05/29/2017 SELMA RUIZ MD Ot Z82.49 FAMILY HX OF ISCHEM HEART DIS AND OTH DI 07/03/2017 JONN YAO MD Ot E11.9 TYPE 2 DIABETES MELLITUS WITHOUT COMPLIC 07/03/2017 JONN YAO MD Ot I10 ESSENTIAL (PRIMARY) HYPERTENSION 07/03/2017 JONN YAO MD Ot R26.2 DIFFICULTY IN WALKING, NOT ELSEWHERE CLA 07/03/2017 JONN YAO MD Ot Z79.4 ESTHETICIAN/SPA COORDINATOR (CURRENT) USE OF INSULIN 07/27/2017 JONN YAO MD Ot E11.9 TYPE 2 DIABETES MELLITUS WITHOUT COMPLIC 07/27/2017 JONN YAO MD Ot I10 ESSENTIAL (PRIMARY) HYPERTENSION 07/27/2017 JONN YAO MD Ot R26.2 DIFFICULTY IN WALKING, NOT ELSEWHERE CLA 07/27/2017 JONN YAO MD Ot Z79.4 SENIOR CARE (CURRENT) USE OF INSULIN 08/29/2017 KACIE DAIGLE MD Ot E11.649 TYPE 2 DIABETES MELLITUS WITH HYPOGLYCEM 08/29/2017 KACIE DAIGLE MD Ot F03.90 UNSPECIFIED DEMENTIA WITHOUT BEHAVIORAL 08/29/2017 KACIE DAIGLE MD Ot I12.9 HYPERTENSIVE CHRONIC KIDNEY DISEASE W ST 08/29/2017 KACIE DAIGLE MD Ot I48.91 UNSPECIFIED ATRIAL FIBRILLATION 08/29/2017 KACIE DAIGLE MD Ot J44.9 CHRONIC OBSTRUCTIVE PULMONARY DISEASE, U 08/29/2017 KACIE DAIGLE MD Ot N18.9 CHRONIC KIDNEY DISEASE, UNSPECIFIED 08/29/2017 KACIE DAIGLE MD Ot R53.1 WEAKNESS 08/29/2017 KACIE DAIGLE MD E Ot Z79.4 SENIOR CARE (CURRENT) USE OF INSULIN 08/29/2017 KACIE DAIGLE MD Ot Z95.5 PRESENCE OF CORONARY ANGIOPLASTY IMPLANT 08/29/2017 KACIE DAIGLE MD Ot E11.649 TYPE 2 DIABETES MELLITUS WITH HYPOGLYCEM 08/29/2017 KACIE DAIGLE MD Ot F03.90 UNSPECIFIED DEMENTIA WITHOUT BEHAVIORAL 08/29/2017 KACIE DAIGLE MD Ot I12.9 HYPERTENSIVE CHRONIC KIDNEY DISEASE W ST 08/29/2017 KACIE DAIGEL MD Ot I48.91 UNSPECIFIED ATRIAL FIBRILLATION 08/29/2017 KACIE DAIGLE MD Ot J44.9 CHRONIC OBSTRUCTIVE PULMONARY DISEASE, U 08/29/2017 KACIE DAIGLE MD Ot N18.9 CHRONIC KIDNEY DISEASE, UNSPECIFIED 08/29/2017 KACIE DAIGLE MD Ot R53.1 WEAKNESS 08/29/2017 KACIE DAIGLE MD Ot Z79.4 ESTHETICIAN/SPA COORDINATOR (CURRENT) USE OF INSULIN 08/29/2017 KACIE DAIGLE MD Ot Z95.5 PRESENCE OF CORONARY ANGIOPLASTY IMPLANT 08/29/2017 BRUNILDA BAKER Ot E78.2 MIXED HYPERLIPIDEMIA 08/29/2017 BRUNILDA BAKER Ot I10 ESSENTIAL (PRIMARY) HYPERTENSION 08/29/2017 BRUNILDA BAKER Ot I25.10 ATHSCL HEART DISEASE OF [place] CORONARY Procedures Code Description Performed By Performed On 44.43 ENDOSCOPIC CONTROL OF GASTRIC OR DUODENA 01/15/2010 37.79 REVISION OR RELOCATION OF CARDIAC DEVICE 05/12/2014 Results Test Result Range Complete blood count (CBC) with automated white blood cell (WBC) differential - 08/16/16 21:49 Blood leukocytes automated count (number/volume) 10.3 10*3/uL 4.3-11.0 Blood erythrocytes automated count (number/volume) 5.00 10*6/uL 4.35-5.85 Venous blood hemoglobin measurement (mass/volume) 14.0 g/dL 11.5-16.0 Blood hematocrit (volume fraction) 43 % 35-52 Automated erythrocyte mean corpuscular volume 86 [foz_us] 80-99 Automated erythrocyte mean corpuscular hemoglobin (mass per erythrocyte) 28 pg 25-34 Automated erythrocyte mean corpuscular hemoglobin concentration measurement ( mass/volume) 33 g/dL 32-36 Automated erythrocyte distribution width ratio 14.9 % 10.0-14.5 Automated blood platelet count (count/volume) 439 10*3/uL 130-400 Automated blood platelet mean volume measurement 10.7 [foz_us] 7.4-10.4 Automated blood neutrophils/100 leukocytes 51 % 42-75 Automated blood lymphocytes/100 leukocytes 38 % 12-44 Blood monocytes/100 leukocytes 9 % 0-12 Automated blood eosinophils/100 leukocytes 2 % 0-10 Automated blood basophils/100 leukocytes 0 % 0-10 Blood neutrophils automated count (number/volume) 5.3 10*3 1.8-7.8 Blood lymphocytes automated count (number/volume) 3.9 10*3 1.0-4.0 Blood monocytes automated count (number/volume) 0.9 10*3 0.0-1.0 Automated eosinophil count 0.2 10*3/uL 0.0-0.3 Automated blood basophil count (count/volume) 0.0 10*3/uL 0.0-0.1 PT panel in platelet poor plasma by coagulation assay - 08/16/16 21:49 Prothrombin time (PT) in platelet poor plasma by coagulation assay 15.8 s 12.2-14.7 INR in platelet poor plasma or blood by coagulation assay 1.3 0.8-1.4 Activated partial thromboplastin time (aPTT) in platelet poor plasma bycoagulation assay - 08/16/16 21:49 Activated partial thromboplastin time (aPTT) in platelet poor plasma bycoagulation assay 30 s 24-35 Comprehensive metabolic panel - 08/16/16 21:49 Serum or plasma sodium measurement (moles/volume) 136 mmol/L 135-145 Serum or plasma potassium measurement (moles/volume) 4.0 mmol/L 3.6-5.0 Serum or plasma chloride measurement (moles/volume) 107 mmol/L 98-107 Carbon dioxide 20 mmol/L 21-32 Serum or plasma anion gap determination (moles/volume) 9 mmol/L 5-14 Serum or plasma urea nitrogen measurement (mass/volume) 29 mg/dL 7-18 Serum or plasma creatinine measurement (mass/volume) 1.71 mg/dL 0.60-1.30 Serum or plasma urea nitrogen/creatinine mass ratio 17 NRG Serum or plasma creatinine measurement with calculation of estimated glomerular filtration rate 28 NRG Serum or plasma glucose measurement (mass/volume) 455 mg/dL 70-105 Serum or plasma calcium measurement (mass/volume) 9.5 mg/dL 8.5-10.1 Serum or plasma total bilirubin measurement (mass/volume) < mg/dL 0.1-1.0 Serum or plasma alkaline phosphatase measurement (enzymatic activity/volume) 116 U/L 40-136 Serum or plasma aspartate aminotransferase measurement (enzymatic activity/ volume) 18 U/L 5-34 Serum or plasma alanine aminotransferase measurement (enzymatic activity/volume ) 19 U/L 0-55 Serum or plasma protein measurement (mass/volume) 6.2 g/dL 6.4-8.2 Serum or plasma albumin measurement (mass/volume) 3.3 g/dL 3.2-4.5 Magnesium - 08/16/16 21:49 Magnesium 2.1 mg/dL 1.8-2.4 Serum or plasma troponin i.cardiac measurement (mass/volume) - 08/16/16 21:49 Serum or plasma troponin i.cardiac measurement (mass/volume) < ng/ mL <0.30 Capillary blood glucose measurement by glucometer (mass/volume) - 08/17/16 00: 17 Capillary blood glucose measurement by glucometer (mass/volume) 301 mg/dL 70-110 Complete blood count (CBC) with automated white blood cell (WBC) differential - 08/17/16 04:28 Blood leukocytes automated count (number/volume) 8.4 10*3/uL 4.3-11.0 Blood erythrocytes automated count (number/volume) 4.56 10*6/uL 4.35-5.85 Venous blood hemoglobin measurement (mass/volume) 12.8 g/dL 11.5-16.0 Blood hematocrit (volume fraction) 39 % 35-52 Automated erythrocyte mean corpuscular volume 86 [foz_us] 80-99 Automated erythrocyte mean corpuscular hemoglobin (mass per erythrocyte) 28 pg 25-34 Automated erythrocyte mean corpuscular hemoglobin concentration measurement ( mass/volume) 33 g/dL 32-36 Automated erythrocyte distribution width ratio 14.8 % 10.0-14.5 Automated blood platelet count (count/volume) 411 10*3/uL 130-400 Automated blood platelet mean volume measurement 10.7 [foz_us] 7.4-10.4 Automated blood neutrophils/100 leukocytes 35 % 42-75 Automated blood lymphocytes/100 leukocytes 51 % 12-44 Blood monocytes/100 leukocytes 10 % 0-12 Automated blood eosinophils/100 leukocytes 4 % 0-10 Automated blood basophils/100 leukocytes 0 % 0-10 Blood neutrophils automated count (number/volume) 3.0 10*3 1.8-7.8 Blood lymphocytes automated count (number/volume) 4.3 10*3 1.0-4.0 Blood monocytes automated count (number/volume) 0.8 10*3 0.0-1.0 Automated eosinophil count 0.3 10*3/uL 0.0-0.3 Automated blood basophil count (count/volume) 0.0 10*3/uL 0.0-0.1 Comprehensive metabolic panel - 08/17/16 04:28 Serum or plasma sodium measurement (moles/volume) 140 mmol/L 135-145 Serum or plasma potassium measurement (moles/volume) 3.4 mmol/L 3.6-5.0 Serum or plasma chloride measurement (moles/volume) 111 mmol/L 98-107 Carbon dioxide 22 mmol/L 21-32 Serum or plasma anion gap determination (moles/volume) 7 mmol/L 5-14 Serum or plasma urea nitrogen measurement (mass/volume) 29 mg/dL 7-18 Serum or plasma creatinine measurement (mass/volume) 1.33 mg/dL 0.60-1.30 Serum or plasma urea nitrogen/creatinine mass ratio 22 NRG Serum or plasma creatinine measurement with calculation of estimated glomerular filtration rate 38 NRG Serum or plasma glucose measurement (mass/volume) 209 mg/dL 70-105 Serum or plasma calcium measurement (mass/volume) 9.0 mg/dL 8.5-10.1 Serum or plasma total bilirubin measurement (mass/volume) 0.2 mg/dL 0.1-1.0 Serum or plasma alkaline phosphatase measurement (enzymatic activity/volume) 98 U/L 40-136 Serum or plasma aspartate aminotransferase measurement (enzymatic activity/ volume) 15 U/L 5-34 Serum or plasma alanine aminotransferase measurement (enzymatic activity/volume ) 16 U/L 0-55 Serum or plasma protein measurement (mass/volume) 5.2 g/dL 6.4-8.2 Serum or plasma albumin measurement (mass/volume) 2.9 g/dL 3.2-4.5 Capillary blood glucose measurement by glucometer (mass/volume) - 08/17/16 11: 07 Capillary blood glucose measurement by glucometer (mass/volume) 158 mg/dL 70-110 Capillary blood glucose measurement by glucometer (mass/volume) - 08/17/16 16: 19 Capillary blood glucose measurement by glucometer (mass/volume) 171 mg/dL 70-110 Lipid 1996 panel - 11/15/16 10:45 Serum or plasma triglyceride measurement (mass/volume) 104 mg/dL <150 Serum or plasma cholesterol measurement (mass/volume) 137 mg/dL < 200 Serum or plasma cholesterol in HDL measurement (mass/volume) 46 mg/ dL 40-60 Cholesterol in LDL [mass/volume] in serum or plasma by direct assay 66 mg/dL 1-129 Serum or plasma cholesterol in VLDL measurement (mass/volume) 21 mg/ dL 5-40 Complete blood count (CBC) with automated white blood cell (WBC) differential - 05/26/17 08:30 Blood leukocytes automated count (number/volume) 8.0 10*3/uL 4.3-11.0 Blood erythrocytes automated count (number/volume) 5.01 10*6/uL 4.35-5.85 Venous blood hemoglobin measurement (mass/volume) 14.6 g/dL 11.5-16.0 Blood hematocrit (volume fraction) 45 % 35-52 Automated erythrocyte mean corpuscular volume 89 [foz_us] 80-99 Automated erythrocyte mean corpuscular hemoglobin (mass per erythrocyte) 29 pg 25-34 Automated erythrocyte mean corpuscular hemoglobin concentration measurement ( mass/volume) 33 g/dL 32-36 Automated erythrocyte distribution width ratio 14.9 % 10.0-14.5 Automated blood platelet count (count/volume) 409 10*3/uL 130-400 Automated blood platelet mean volume measurement 10.8 [foz_us] 7.4-10.4 Automated blood neutrophils/100 leukocytes 54 % 42-75 Automated blood lymphocytes/100 leukocytes 34 % 12-44 Blood monocytes/100 leukocytes 8 % 0-12 Automated blood eosinophils/100 leukocytes 4 % 0-10 Automated blood basophils/100 leukocytes 1 % 0-10 Blood neutrophils automated count (number/volume) 4.3 10*3 1.8-7.8 Blood lymphocytes automated count (number/volume) 2.7 10*3 1.0-4.0 Blood monocytes automated count (number/volume) 0.6 10*3 0.0-1.0 Automated eosinophil count 0.3 10*3/uL 0.0-0.3 Automated blood basophil count (count/volume) 0.0 10*3/uL 0.0-0.1 PT panel in platelet poor plasma by coagulation assay - 05/26/17 08:30 Prothrombin time (PT) in platelet poor plasma by coagulation assay 14.9 s 12.2-14.7 INR in platelet poor plasma or blood by coagulation assay 1.2 0.8-1.4 Comprehensive metabolic panel - 05/26/17 08:30 Serum or plasma sodium measurement (moles/volume) 141 mmol/L 135-145 Serum or plasma potassium measurement (moles/volume) 4.0 mmol/L 3.6-5.0 Serum or plasma chloride measurement (moles/volume) 109 mmol/L 98-107 Carbon dioxide 20 mmol/L 21-32 Serum or plasma anion gap determination (moles/volume) 12 mmol/L 5-14 Serum or plasma urea nitrogen measurement (mass/volume) 20 mg/dL 7-18 Serum or plasma creatinine measurement (mass/volume) 1.15 mg/dL 0.60-1.30 Serum or plasma urea nitrogen/creatinine mass ratio 17 NRG Serum or plasma creatinine measurement with calculation of estimated glomerular filtration rate 45 NRG Serum or plasma glucose measurement (mass/volume) 388 mg/dL 70-105 Serum or plasma calcium measurement (mass/volume) 10.2 mg/dL 8.5-10.1 Serum or plasma total bilirubin measurement (mass/volume) 0.3 mg/dL 0.1-1.0 Serum or plasma alkaline phosphatase measurement (enzymatic activity/volume) 152 U/L 40-136 Serum or plasma aspartate aminotransferase measurement (enzymatic activity/ volume) 23 U/L 5-34 Serum or plasma alanine aminotransferase measurement (enzymatic activity/volume ) 21 U/L 0-55 Serum or plasma protein measurement (mass/volume) 7.0 g/dL 6.4-8.2 Serum or plasma albumin measurement (mass/volume) 3.6 g/dL 3.2-4.5 Serum or plasma troponin i.cardiac measurement (mass/volume) - 05/26/17 08:30 Serum or plasma troponin i.cardiac measurement (mass/volume) < ng/ mL <0.30 Complete urinalysis with reflex to culture - 05/26/17 08:50 Urine color determination YELLOW NRG Urine clarity determination CLEAR NRG Urine pH measurement by test strip 7 5-9 Specific gravity of urine by test strip 1.005 1.016- 1.022 Urine protein assay by test strip, semi-quantitative 3+ NEGATIVE Urine glucose detection by automated test strip 4+ NEGATIVE Erythrocytes detection in urine sediment by light microscopy 2+ NEGATIVE Urine ketones detection by automated test strip NEGATIVE NEGATIVE Urine nitrite detection by test strip NEGATIVE NEGATIVE Urine total bilirubin detection by test strip NEGATIVE NEGATIVE Urine urobilinogen measurement by automated test strip (mass/volume) NORMAL NORMAL Urine leukocyte esterase detection by dipstick NEGATIVE NEGATIVE Automated urine sediment erythrocyte count by microscopy (number/high power field) [HPF] NRG Automated urine sediment leukocyte count by microscopy (number/high power field ) RARE NRG Bacteria detection in urine sediment by light microscopy TRACE NRG Crystals detection in urine sediment by light microscopy PRESENT NRG Casts detection in urine sediment by light microscopy NONE NRG Mucus detection in urine sediment by light microscopy NEGATIVE NRG Complete urinalysis with reflex to culture YES NRG Amorphous sediment detection in urine sediment by light microscopy RARE TITUS PHOSPHATE NRG Bacterial urine culture - 05/26/17 08:50 Bacterial urine culture [id number] NRG COLONY COUNT 10,000/ML - 100,000/ML NR Comprehensive metabolic panel - 08/04/17 10:43 Serum or plasma sodium measurement (moles/volume) 141 mmol/L 135-145 Serum or plasma potassium measurement (moles/volume) 3.8 mmol/L 3.6-5.0 Serum or plasma chloride measurement (moles/volume) 106 mmol/L 98-107 Carbon dioxide 24 mmol/L 21-32 Serum or plasma anion gap determination (moles/volume) 11 mmol/L 5-14 Serum or plasma urea nitrogen measurement (mass/volume) 16 mg/dL 7-18 Serum or plasma creatinine measurement (mass/volume) 1.04 mg/dL 0.60-1.30 Serum or plasma urea nitrogen/creatinine mass ratio 15 NRG Serum or plasma creatinine measurement with calculation of estimated glomerular filtration rate 50 NRG Serum or plasma glucose measurement (mass/volume) 101 mg/dL 70-105 Serum or plasma calcium measurement (mass/volume) 9.5 mg/dL 8.5-10.1 Serum or plasma total bilirubin measurement (mass/volume) 0.6 mg/dL 0.1-1.0 Serum or plasma alkaline phosphatase measurement (enzymatic activity/volume) 118 U/L 40-136 Serum or plasma aspartate aminotransferase measurement (enzymatic activity/ volume) 28 U/L 5-34 Serum or plasma alanine aminotransferase measurement (enzymatic activity/volume ) 27 U/L 0-55 Serum or plasma protein measurement (mass/volume) 6.6 g/dL 6.4-8.2 Serum or plasma albumin measurement (mass/volume) 3.3 g/dL 3.2-4.5 Lipid 1996 panel - 08/04/17 10:43 Serum or plasma triglyceride measurement (mass/volume) 112 mg/dL <150 Serum or plasma cholesterol measurement (mass/volume) 183 mg/dL < 200 Serum or plasma cholesterol in HDL measurement (mass/volume) 58 mg/ dL 40-60 Cholesterol in LDL [mass/volume] in serum or plasma by direct assay 104 mg/dL 1-129 Serum or plasma cholesterol in VLDL measurement (mass/volume) 22 mg/ dL 5-40 Capillary blood glucose measurement by glucometer (mass/volume) - 08/22/17 16: 09 Capillary blood glucose measurement by glucometer (mass/volume) 249 mg/dL 70-110 Capillary blood glucose measurement by glucometer (mass/volume) - 08/22/17 20: 29 Capillary blood glucose measurement by glucometer (mass/volume) 333 mg/dL 70-110 Capillary blood glucose measurement by glucometer (mass/volume) - 08/23/17 05: 03 Capillary blood glucose measurement by glucometer (mass/volume) 161 mg/dL 70-110 Capillary blood glucose measurement by glucometer (mass/volume) - 08/23/17 10: 58 Capillary blood glucose measurement by glucometer (mass/volume) 206 mg/dL 70-110 Capillary blood glucose measurement by glucometer (mass/volume) - 08/23/17 16: 01 Capillary blood glucose measurement by glucometer (mass/volume) 269 mg/dL 70-110 Capillary blood glucose measurement by glucometer (mass/volume) - 08/23/17 20: 06 Capillary blood glucose measurement by glucometer (mass/volume) 233 mg/dL 70-110 Capillary blood glucose measurement by glucometer (mass/volume) - 08/24/17 05: 13 Capillary blood glucose measurement by glucometer (mass/volume) 119 mg/dL 70-110 Automated blood complete blood count (hemogram) panel - 08/24/17 06:24 Blood leukocytes automated count (number/volume) 10.1 10*3/uL 4.3-11.0 Blood erythrocytes automated count (number/volume) 3.70 10*6/uL 4.35-5.85 Venous blood hemoglobin measurement (mass/volume) 11.3 g/dL 11.5-16.0 Blood hematocrit (volume fraction) 35 % 35-52 Automated erythrocyte mean corpuscular volume 94 [foz_us] 80-99 Automated erythrocyte mean corpuscular hemoglobin (mass per erythrocyte) 31 pg 25-34 Automated erythrocyte mean corpuscular hemoglobin concentration measurement ( mass/volume) 33 g/dL 32-36 Automated erythrocyte distribution width ratio 15.1 % 10.0-14.5 Automated blood platelet count (count/volume) 325 10*3/uL 130-400 Automated blood platelet mean volume measurement 12.1 [foz_us] 7.4-10.4 Comprehensive metabolic panel - 08/24/17 06:24 Serum or plasma sodium measurement (moles/volume) 139 mmol/L 135-145 Serum or plasma potassium measurement (moles/volume) 4.4 mmol/L 3.6-5.0 Serum or plasma chloride measurement (moles/volume) 110 mmol/L 98-107 Carbon dioxide 21 mmol/L 21-32 Serum or plasma anion gap determination (moles/volume) 8 mmol/L 5-14 Serum or plasma urea nitrogen measurement (mass/volume) 40 mg/dL 7-18 Serum or plasma creatinine measurement (mass/volume) 1.52 mg/dL 0.60-1.30 Serum or plasma urea nitrogen/creatinine mass ratio 26 NRG Serum or plasma creatinine measurement with calculation of estimated glomerular filtration rate 32 NRG Serum or plasma glucose measurement (mass/volume) 115 mg/dL 70-105 Serum or plasma calcium measurement (mass/volume) 9.2 mg/dL 8.5-10.1 Serum or plasma total bilirubin measurement (mass/volume) 0.4 mg/dL 0.1-1.0 Serum or plasma alkaline phosphatase measurement (enzymatic activity/volume) 95 U/L 40-136 Serum or plasma aspartate aminotransferase measurement (enzymatic activity/ volume) 18 U/L 5-34 Serum or plasma alanine aminotransferase measurement (enzymatic activity/volume ) 25 U/L 0-55 Serum or plasma protein measurement (mass/volume) 5.5 g/dL 6.4-8.2 Serum or plasma albumin measurement (mass/volume) 2.8 g/dL 3.2-4.5 Capillary blood glucose measurement by glucometer (mass/volume) - 08/24/17 11: 49 Capillary blood glucose measurement by glucometer (mass/volume) 341 mg/dL 70-110 Capillary blood glucose measurement by glucometer (mass/volume) - 08/24/17 16: 07 Capillary blood glucose measurement by glucometer (mass/volume) 232 mg/dL 70-110 Capillary blood glucose measurement by glucometer (mass/volume) - 08/24/17 20: 38 Capillary blood glucose measurement by glucometer (mass/volume) 245 mg/dL 70-110 Capillary blood glucose measurement by glucometer (mass/volume) - 08/25/17 05: 32 Capillary blood glucose measurement by glucometer (mass/volume) 56 mg/dL 70-110 Capillary blood glucose measurement by glucometer (mass/volume) - 08/25/17 06: 06 Capillary blood glucose measurement by glucometer (mass/volume) 99 mg/dL 70-110 Whole blood basic metabolic panel - 08/25/17 06:11 Serum or plasma sodium measurement (moles/volume) 141 mmol/L 135-145 Serum or plasma potassium measurement (moles/volume) 4.1 mmol/L 3.6-5.0 Serum or plasma chloride measurement (moles/volume) 111 mmol/L 98-107 Carbon dioxide 21 mmol/L 21-32 Serum or plasma anion gap determination (moles/volume) 9 mmol/L 5-14 Serum or plasma urea nitrogen measurement (mass/volume) 34 mg/dL 7-18 Serum or plasma creatinine measurement (mass/volume) 1.55 mg/dL 0.60-1.30 Serum or plasma urea nitrogen/creatinine mass ratio 22 NRG Serum or plasma creatinine measurement with calculation of estimated glomerular filtration rate 32 NRG Serum or plasma glucose measurement (mass/volume) 122 mg/dL 70-105 Serum or plasma calcium measurement (mass/volume) 9.0 mg/dL 8.5-10.1 Capillary blood glucose measurement by glucometer (mass/volume) - 08/25/17 10: 59 Capillary blood glucose measurement by glucometer (mass/volume) 290 mg/dL 70-110 Capillary blood glucose measurement by glucometer (mass/volume) - 08/25/17 16: 04 Capillary blood glucose measurement by glucometer (mass/volume) 283 mg/dL 70-110 Capillary blood glucose measurement by glucometer (mass/volume) - 08/25/17 21: 00 Capillary blood glucose measurement by glucometer (mass/volume) 300 mg/dL 70-110 Capillary blood glucose measurement by glucometer (mass/volume) - 08/26/17 05: 19 Capillary blood glucose measurement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
[2017-12-18 04:48] LABS: BASOPHILS % (AUTO) 0 % (0-10); EOSINOPHILS # (AUTO) 0.5 10^3/uL (0.0-0.3); EOSINOPHILS % (AUTO) 6 % (0-10); HEMATOCRIT 39 % (35-52); LYMPHOCYTES # (AUTO) 4.3 X 10^3 (1.0-4.0); LYMPHOCYTES % (AUTO) 54 % (12-44); MEAN CORPUSCULAR HEMOGLOBIN 29 PG (25-34); MEAN CORPUSCULAR HGB CONC 33 G/DL (32-36); MEAN CORPUSCULAR VOLUME 87 FL (80-99); MEAN PLATELET VOLUME 10.7 FL (7.4-10.4); MONOCYTES # (AUTO) 0.8 X 10^3 (0.0-1.0); MONOCYTES % (AUTO) 10 % (0-12); NEUTROPHILS # (AUTO) 2.4 X 10^3 (1.8-7.8); NEUTROPHILS % (AUTO) 30 % (42-75); PLATELET COUNT 410 10^3/uL (130-400); RED BLOOD COUNT 4.49 10^6/uL (4.35-5.85); RED CELL DISTRIBUTION WIDTH 15.6 % (10.0-14.5)
[2017-12-18 04:56] LABS: FIBRIN DEGRADATION PRODUCTS 0.38 UG/ML (0.00-0.49)
[2017-12-18 05:03] LABS: ALANINE AMINOTRANSFERASE 18 U/L (0-55); ALBUMIN 3.1 GM/DL (3.2-4.5); ALKALINE PHOSPHATASE 92 U/L (40-136); BILIRUBIN,TOTAL 0.3 MG/DL (0.1-1.0); BUN/CREATININE RATIO 20; CALCIUM 9.2 MG/DL (8.5-10.1); CARBON DIOXIDE 22 MMOL/L (21-32); CHLORIDE 110 MMOL/L (98-107); CREATININE SERUM 0.99 MG/DL (0.60-1.30); GFR ESTIMATED 53; GLUCOSE 157 MG/DL (70-105); POTASSIUM 4.1 MMOL/L (3.6-5.0); SODIUM 138 MMOL/L (135-145); TOTAL PROTEIN 5.7 GM/DL (6.4-8.2)
--- NOTE | 2017-12-18 06:10 | Diagnostic Imaging Report ---
INDICATION: Left paresthesia. AP upright view of the chest is obtained with comparison made study of 12/13/2017. FINDINGS: Heart size and pulmonary vascularity are within normal limits, and the lungs are clear, bilaterally. IMPRESSION: Unremarkable chest. Dictated by: Dictated on workstation # [id number]
--- NOTE | 2017-12-18 06:37 | Diagnostic Imaging Report ---
INDICATION: Left paresthesia Multiple contiguous axial CT images of the head are obtained with comparison made to study of 12/13/2017. Ventricles and sulci remain prominent. There is low-density throughout the deep white matter of both hemispheres. No hemorrhage is identified. There is no evidence of territorial infarct. Calvarium is intact and the visualized paranasal sinuses are clear. IMPRESSION: Senescent findings in the brain without CT evidence of acute intracranial abnormality. Dictated by: Dictated on workstation # [id number]
[2017-12-18 07:10] VITALS: BP 129/95
== END 2017-12-18 07:10 | disposition home or self-care (01) ==
LOC: EDUNIT# 04:14 → ER 04:15
DX: M54.12 Radiculopathy, cervical region (principal); M54.42 Lumbago with sciatica, left side; I48.91 Unspecified atrial fibrillation; I10 Essential (primary) hypertension; E11.59 Type 2 diabetes mellitus with other circulatory complications; I73.9 Peripheral vascular disease, unspecified; Z82.49 Family history of ischemic heart disease and other diseases of the circulatory system; Z79.01 Long term (current) use of anticoagulants; Z79.82 Long term (current) use of aspirin; Z79.4 Long term (current) use of insulin; Z95.5 Presence of coronary angioplasty implant and graft
CPT/HCPCS: 36415; 70450; 71045; 80053; 82962; 84484; 85025; 85379; 85610; 85730; 93005; 93041

== ENCOUNTER 2017-12-19 15:38 | Emergency (ER) | payer MEDICARE, OTHER ==
[~2017-12-19] VITALS: Ht 157.5 cm; Wt 55.8 kg
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
[2017-12-19] MEDS ORDERED: DEXTROSE 50% 50 ML (IMS) SYR ONE (16:08)
--- NOTE | 2017-12-19 16:22 | Diagnostic Imaging Report ---
INDICATION: 87-year-old female with weakness and confusion, suspect for CVA. COMPARISONS: 12/18/2017. FINDINGS: Midline structures are not displaced. There are senescent changes in the brain with involutional changes and generalized atrophy. There is a slight frontal and temporal lobe predominance to the generalized atrophy. There is extensive background chronic microvascular ischemic change. Álvarez-white differentiation is otherwise reasonably well maintained, and there is no sulcal effacement. There is no evidence of hemorrhage. There are no abnormal extra-axial fluid collections or hemorrhage. Basilar cisterns appear normal. Sinuses, orbits, and mastoid air cells are normal. Bone windows show no calvarial changes. IMPRESSION: 1. Senescent brain with involutional changes and generalized atrophy with a slight frontal and temporal lobe predominance. 2. Extensive chronic background microvascular ischemic change, but no definite acute findings identified by CT criteria with no adverse interval change since the prior exam. If symptoms warrant, an MRI is recommended. Dictated by: Dictated on workstation # [id number]
--- NOTE | 2017-12-19 16:27 | ED Neurological Problem ---
General Chief Complaint: Neuro-Stroke Like Symptoms Stated Complaint: STROKE SYMPTOMS Source: patient Exam Limitations: no limitations History of Present Illness Date Seen by Provider: Dec 19, 2017 Time Seen by Provider: 15:41 Initial Comments Here by POV with spouse who reports that she is been weak and confused today but got much worse about 15 minutes ago and the patient was having slurred speech and increasing difficulty with walking. 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 Patient is on Eliquis. No report of recent injury or fall. Patient is diabetic. Patient is somewhat confused but is also significantly hard of hearing making exam limited. Timing/Duration: other (8 hours of weakness and 15 minutes of presenting symptoms of significant slurred speech.) Severity: moderate Associated Symptoms: confusion, No fatigue, No nausea/vomiting, slurred speech , trouble walking, weakness Allergies and Home Medications Allergies Coded Allergies: No Known Drug Allergies (Unverified , 11/03/09) Home Medications Amlodipine Besylate 2.5 Mg Tablet, 2.5 MG PO DAILY, (Reported) LAST FILLED #30 18 Apixaban 2.5 Mg Tablet, 2.5 MG PO BID Prescribed by: JONN SOW on 12/14/17 09 Aspirin 81 Mg Tab.chew, 81 MG PO DAILY@0900 Prescribed by: JONN SOW on 12/14/17 0937 Atorvastatin Calcium 40 Mg Tablet, 40 MG PO HS, (Reported) LAST FILLED #30 10-17-17 Carvedilol 12.5 Mg Tablet, 12.5 MG PO BID, (Reported) LAST FILLED #60 09-21-17 Dronedarone HCl 400 Mg Tablet, 400 MG PO BID, (Reported) LAST FILLED #60 09-08-17 Furosemide 20 Mg Tablet, 20 MG PO DAILY PRN for SWELLING, (Reported) LAST FILLED #3 09-08-17 Insulin Glargine,Hum.rec.anlog 300 Unit/1 Ml Insuln.pen, 32 UNIT SQ HS, ( Reported) Insulin Lispro 100 Unit/1 Ml Insuln.pen, SQ UD, (Reported) USE 18 UNITS WITH MEALS PLUS CORRECTION Losartan Potassium 50 Mg Tablet, 50 MG PO DAILY, (Reported) Pantoprazole Sodium 20 Mg Tablet.dr, 20 MG PO DAILY, (Reported) LAST FILLED #30 1-4-18 Potassium Chloride 10 Meq Tablet.er, 10 MEQ PO DAILY PRN for WITH FUROSEMIDE, ( Reported) LAST FILLED #3 09-08-17 Sitagliptin Phosphate 100 Mg Tablet, 50 MG PO DAILY, (Reported) LAST RECEIVED UNKNOWN QUANTITIY OF SAMPLES IN SEPTEMBER TAKE 1/2 (100MG) TABLET Patient Home Medication List Home Medication List Reviewed: Yes Constitutional: see HPI, No chills, No fever Eyes: No Symptoms Reported Ears, Nose, Mouth, Throat: no symptoms reported Respiratory: No cough, No short of breath Cardiovascular: No chest pain, No palpitations Gastrointestinal: No abdominal pain, No nausea, No vomiting Genitourinary: no symptoms reported Musculoskeletal: No muscle pain, muscle weakness Skin: no symptoms reported Psychiatric/Neurological: See HPI, Cognitive Dysfunction, Weakness Endocrine: No Symptoms Reported All Other Systems Reviewed Negative Unless Noted: Yes Past Choyadc-Yagvib-Weqpbj Hx Patient Social History Alcohol Use: Denies Use Number of Drinks Today: DD Alcohol Beverage of Choice: Rum Recreational Drug Use: No 2nd Hand Smoke Exposure: No Recent Foreign Travel: No Contact w/Someone Who Travel: No Recent Hopitalizations: Yes (tia vs cva) Immunizations Up To Date Tetanus Booster (TDap): Unknown PED Vaccines UTD: No Date of Pneumonia Vaccine: Jun 11, 2013 Date of Influenza Vaccine: Aug 08, 2017 Seasonal Allergies Seasonal Allergies: No Surgeries History of Surgeries: Yes (RIGHT FOOT SURGERY) Respiratory History of Respiratory Disorde: No Currently Using CPAP: No Currently Using BIPAP: No Cardiovascular History of Cardiac Disorders: Yes (STENTS, MONITOR PLACED BY DR. REHMAN) Cardiac Disorders: Atrial Fibrillation, Hypertension, Peripheral Vascular Neurological History of Neurological Disord: No Reproductive System Hx Reproductive Disorders: No Sexually Transmitted Disease: No HIV/AIDS: No FOURTH OFFICER History: Menopausal Genitourinary History of Genitourinary Disor: Yes ( KIDNEY DISEASE) Genitourinary Disorders: Renal Failure Gastrointestinal History of Gastrointestinal Di: No Musculoskeletal History of Musculoskeletal Dis: Yes Musculoskeletal Disorders: Arthritis Endocrine History of Endocrine Disorders: Yes Endocrine Disorders: Diabetes, Insulin dep HEENT History of HEENT Disorders: Yes HEENT Disorders: Cataract Hearing Impairment: Hard of Hearing, Bilateral Hearing Aide Cancer History of Cancer: No Psychosocial History of Psychiatric Problem: No Integumentary History of Skin or Integumenta: No Blood Transfusions History of Blood Disorders: No Reviewed Nursing Assessment Reviewed/Agree w Nursing PMH: Yes Family Medical History Significant Family History: Heart Disease, Diabetes, Hypertension, Stroke Family Medial History: Alzheimer's disease 19 MOTHER, Arthritis 19 FATHER, 19 MOTHER, G8 BROTHER, G8 BROTHER, G8 BROTHER G8 SISTER G8 SISTER Cardiovascular disease 19 MOTHER, G8 BROTHER, Completed stroke 19 MOTHER, G8 SISTER Hypercholesterolemia 19 FATHER, G8 BROTHER, Hypertension 19 MOTHER, Myocardial infarction 19 FATHER, G8 BROTHER, Physical Exam Vital Signs Vital Signs - First Documented 12/19/17 15:43 Temp 97.6 Pulse 57 B/P (MAP) 104/50 (68) Pulse Ox 97 O2 Delivery Room Air Capillary Refill : General Appearance: WD/WN, mild distress (confused) HEENT: PERRL/EOMI, pharynx normal Neck: full range of motion, supple Respiratory: lungs clear, normal breath sounds Cardiovascular: regular rate, rhythm, no edema, no murmur Peripheral Pulses: 2+ Dorsalis Pedis (R), 2+ Left Dors-Pedis (L), 2+ Radial Pulses (R), 2+ Radial Pulses (L) Gastrointestinal: non tender, soft Back: normal inspection, no CVA tenderness, no vertebral tenderness Extremities: non-tender, normal inspection Neurologic/Psychiatric: alert, oriented x 3 (cor) Crainal Nerves: PERRL, abnormal speech, hearing deficit (R) (chronic), hearing deficit (L) (chronic) Coordination/Gait: normal finger to nose Motor/Sensory: no pronator drift, other (globally mildly weak but no pronator drift overall.) Skin: normal color, warm/dry Stroke NIH Stroke Scale Assessment Gaze: Normal (0), Total: Stroke Thrombolytic Exclusion Age 18 or Over: Yes Acute intenal hemorrhage: No History of CVA: No Uncontrolled Coagulation Defec: No Intracranial Hemorrhage: No Severe Hypertension: No GI or Bleed: No Subarachnoid Hemorrhage: No Intracranial Neoplasm/Aneurysm: No Oral Anticoagulants: Yes Surgery or Trauma: No Puncture of Non-Compressible V: No Recent CPR: No Diabetic Hemorrhagic Retinopat: No Organ Biopsy: No Recent Obstetric Delivery: No Glucose: Yes Significant Hepatic Dysfunctio: No NIH Stoke Scale >22: No Bacterial Endocarditis: No Pericarditis: No Improving Symptoms: Yes Platelets: No Progress/Results/Core Measures Results/Orders Lab Results Laboratory Tests Test 12/19/17 16:10 12/19/17 16:24 12/19/17 17:01 12/19/17 17:30 Range/Units Glucometer 46 *L 162 H 70-110 MG/DL White Blood Count 5.3 4.3-11.0 10^3/uL Red Blood Count 3.79 L 4.35-5.85 10^6/uL Hemoglobin 11.0 L 11.5-16.0 G/DL Hematocrit 34 L 35-52 % Mean Corpuscular Volume 88 80-99 FL Mean Corpuscular Hemoglobin 29 25-34 PG Mean Corpuscular Hemoglobin Concent 33 32-36 G/DL Red Cell Distribution Width 15.8 H 10.0-14.5 % Platelet Count 342 130-400 10^3/uL Mean Platelet Volume 11.1 H 7.4-10.4 FL Neutrophils (%) (Auto) 30 L 42-75 % Lymphocytes (%) (Auto) 53 H 12-44 % Monocytes (%) (Auto) 11 0-12 % Eosinophils (%) (Auto) 5 0-10 % Basophils (%) (Auto) 1 0-10 % Neutrophils # (Auto) 1.6 L 1.8-7.8 X 10^3 Lymphocytes # (Auto) 2.8 1.0-4.0 X 10^3 Monocytes # (Auto) 0.6 0.0-1.0 X 10^3 Eosinophils # (Auto) 0.3 0.0-0.3 10^3/uL Basophils # (Auto) 0.0 0.0-0.1 10^3/uL Prothrombin Time 15.1 H 12.2-14.7 SEC INR Comment 1.2 0.8-1.4 Activated Partial Thromboplast Time 30 24-35 SEC D-Dimer < 0.27 0.00-0.49 UG/ML Sodium Level 138 135-145 MMOL/L Potassium Level 3.9 3.6-5.0 MMOL/L Chloride Level 110 H 98-107 MMOL/L Carbon Dioxide Level 20 L 21-32 MMOL/L Anion Gap 8 5-14 MMOL/L Blood Urea Nitrogen 21 H 7-18 MG/DL Creatinine 1.34 H 0.60-1.30 MG/DL Estimat Glomerular Filtration Rate 37 BUN/Creatinine Ratio 16 Glucose Level 338 H 70-105 MG/DL Calcium Level 8.5 8.5-10.1 MG/DL Total Bilirubin 0.4 0.1-1.0 MG/DL Aspartate Amino Transf (AST/SGOT) 18 5-34 U/L Alanine Aminotransferase (ALT/SGPT) 15 0-55 U/L Alkaline Phosphatase 73 40-136 U/L Troponin I < 0.30 <0.30 NG/ML B-Type Natriuretic Peptide 277.8 H <100.0 PG/ML Total Protein 4.8 L 6.4-8.2 GM/DL Albumin 2.7 L 3.2-4.5 GM/DL Urine Color YELLOW Urine Clarity SLIGHTLY CLOUDY Urine pH 5 5-9 Urine Specific [place] 1.020 1.016-1.022 Urine Protein 3+ H NEGATIVE Urine Glucose (UA) 2+ H NEGATIVE Urine Ketones NEGATIVE NEGATIVE Urine Nitrite NEGATIVE NEGATIVE Urine Bilirubin NEGATIVE NEGATIVE Urine Urobilinogen NORMAL NORMAL MG/DL Urine Leukocyte Esterase NEGATIVE NEGATIVE Urine RBC (Auto) NEGATIVE NEGATIVE Urine RBC NONE /HPF Urine WBC 0-2 /HPF Urine Squamous Epithelial Cells 2-5 /HPF Urine Crystals NONE /LPF Urine Bacteria MODERATE H /HPF Urine Casts NONE /LPF Urine Mucus NEGATIVE /LPF Urine Culture Indicated NO Test 12/19/17 17:46 Range/Units Glucometer 96 70-110 MG/DL My Orders Orders - HOSSEIN LEI MD Ekg Tracing (12/19/17 15:40) Ct Head Wo-R/O Stroke (12/19/17 15:41) Cbc With Automated Diff (12/19/17 15:52) Protime With Inr (12/19/17 15:52) Partial Thromboplastin Time (12/19/17 15:52) Comprehensive Metabolic Panel (12/19/17 15:52) Fibrin Degradation Products (12/19/17 15:52) Troponin I (12/19/17 15:52) Ua Culture If Indicated (12/19/17 15:52) Chest 1 View, Ap/Pa Only (12/19/17 15:52) Nothing By Mouth (12/19/17 Dinner) Accucheck Stat ONCE (12/19/17 15:52) Saline Lock/Iv-Start (12/19/17 15:52) Saline Lock/Iv-Start (12/19/17 15:52) Vital Signs Stroke Patient Q15M (12/19/17 15:52) O2 (12/19/17 15:52) Intake & Output 06,14,22 (12/19/17 15:52) Monitor-Rhythm Ecg Trace Only (12/19/17 15:52) Dysphagia Screening Tool (12/19/17 15:52) D50w (Emergency) Syringe (Dextrose 50% 5 (12/19/17 16:08) D50w (Emergency) Syringe (Dextrose 50% 5 (12/19/17 17:15) BNP (12/19/17 17:07) Medications Given in ED Current Medications Medications Dose Ordered Sig/Thee Route Start Time Stop Time Status Last Admin Dose Admin Dextrose 50 ml ONCE ONCE IV 12/19/17 17:15 12/19/17 17:16 DC 12/19/17 16:12 50 ML Vital Signs/I&O Vital Sign - Last 12Hours 12/19/17 15:43 Temp 97.6 Pulse 57 B/P (MAP) 104/50 (68) Pulse Ox 97 O2 Delivery Room Air Progress Note : Progress Note Seen and evaluated. IV, labs, EKG, chest x-ray and CT head ordered. Stroke scale 3 due to some confusion and difficulty with speech. Patient recently admitted for concerns of CVA and MRI does show chronic small hemorrhage. Patient is on eliquis and aspirin by records. TPA not indicated due to timeframe and anticoagulants as well as question of previous or chronic hemorrhage. Blood sugar noted to be 43. D50 1 amp IV given. Monitor patient. 1620: No acute finding on CT scan. Monitor patient. Patient much improved after sugar. Monitor patient. 1840: Case discussed with Dr. Sow. Due to sugar concerns and patient's history, she would like the patient to hold her Lantus tonight and we will decrease that to 15 units every afternoon starting tomorrow. Patient will double her Lasix for 5 days and also double her potassium for 5 days per discharge instructions. Patient is to follow-up this week. I did discuss all of this with the patient (who is very hard of hearing but is also written down) and patient reports that she has appointment at Dr. Sow's clinic tomorrow and she will keep that. Patient was given juice to drink. Discharged home with return precautions. Patient and family verbalize understanding instructions and agreement with plan. ECG Initial ECG Impression Date: Dec 19, 2017 Initial ECG Impression Time: 16:11 Initial ECG Rate: 57 Initial ECG Rhythm: Normal Sinus Initial ECG Comparisson: Unchanged Comment Sinus rhythm with premature atrial complexes. No evidence of ST elevation [place]. Similar to previous of 12/18/17. Interpreted by me. Diagnostic Imaging Diagonstic Imaging: CT Plain Films/CT/US/NM/MRI: head Comments [place], [place] NAME: ABBIE JENKINS [facility] REC#: [id number] PT STATUS: REG ER : 1930 PHYSICIAN: HOSSEIN LEI MD ADMIT DATE: 12/19/17/ER Draft Date of Exam:12/19/17 CT HEAD WO-R/O STROKE INDICATION: 87-year-old female with weakness and confusion, suspect for CVA. COMPARISONS: 12/18/2017. FINDINGS: Midline structures are not displaced. There are senescent changes in the brain with involutional changes and generalized atrophy. There is a slight frontal and temporal lobe predominance to the generalized atrophy. There is extensive background chronic microvascular ischemic change. Álvarez-white differentiation is otherwise reasonably well maintained, and there is no sulcal effacement. There is no evidence of hemorrhage. There are no abnormal extra-axial fluid collections or hemorrhage. Basilar cisterns appear normal. Sinuses, orbits, and mastoid air cells are normal. Bone windows show no calvarial changes. IMPRESSION: 1. Senescent brain with involutional changes and generalized atrophy with a slight frontal and temporal lobe predominance. 2. Extensive chronic background microvascular ischemic change, but no definite acute findings identified by CT criteria with no adverse interval change since the prior exam. If symptoms warrant, an MRI is recommended. Dictated on workstation # [id number] Dict: 12/19/17 1613 Trans: 12/19/17 1621 [id number] Interpreted by: SHINE LUND MD Electronically signed by: Diagonstic Imaging: Xray Plain Films/CT/US/NM/MRI: chest Comments NAME: ABBIE JENKINS [facility] REC#: [id number] PT STATUS: REG ER : 1930 PHYSICIAN: HOSSEIN LEI MD ADMIT DATE: 12/19/17/ER Signed Date of Exam: 12/19/17 CHEST 1 VIEW, AP/PA ONLY INDICATION: Stroke protocol. Weakness and confusion. COMPARISON: 12/18/2017. FINDINGS: Portable chest shows increasing cardiac size. There has been development of some pulmonary venous congestion with bilateral interstitial Kathrine B lines now present. No evidence of consolidated infiltrate. No pneumothorax or pleural effusion. IMPRESSION: 1. Findings are consistent with developing pulmonary edema and congestive failure when compared with previous day's exam. Dictated by: Dictated on workstation # [id number] Dict: 12/19/17 1628 Trans: 12/19/17 1647 Interpreted by: KACIE VAN MD Electronically signed by: KACIE VAN MD 12/19/17 1647 Departure Impression Impression: Primary Impression: Hypoglycemia Additional Impression: Pulmonary edema Qualified Codes: J81.0 - Acute pulmonary edema Disposition: HOME, SELF-CARE Condition: Stable Departure-Patient Inst. Decision time for Depature: 19:12 Referrals: JONN SOW MD (PCP/Family) Primary Care Physician Patient Instructions: HYPOGLYCEMIA, Heart Failure, Adult (DC) Add. Discharge Instructions: All discharge instructions reviewed with patient and/or family. Voiced understanding. Follow-up with Dr. Sow tomorrow as scheduled. Do not take your Lantus tonight and you should decrease that to 15 units nightly starting tomorrow. You should take your Lasix twice daily for the next 5 days starting tonight and then return to daily dosing after that. You should take your potassium chloride tablet twice daily for the next 5 days and then return to daily dosing after that. Return for worse pain, fever, vomiting, weakness, breathing problems or other concerns as needed. Copy Copies To 1: JONN SOW MD, TIMOTHY D MD Dec 19, 2017 16:27
[2017-12-19 16:30] LABS: BASOPHILS % (AUTO) 1 % (0-10); EOSINOPHILS # (AUTO) 0.3 10^3/uL (0.0-0.3); EOSINOPHILS % (AUTO) 5 % (0-10); HEMATOCRIT 34 % (35-52); LYMPHOCYTES # (AUTO) 2.8 X 10^3 (1.0-4.0); LYMPHOCYTES % (AUTO) 53 % (12-44); MEAN CORPUSCULAR HEMOGLOBIN 29 PG (25-34); MEAN CORPUSCULAR HGB CONC 33 G/DL (32-36); MEAN CORPUSCULAR VOLUME 88 FL (80-99); MEAN PLATELET VOLUME 11.1 FL (7.4-10.4); MONOCYTES # (AUTO) 0.6 X 10^3 (0.0-1.0); MONOCYTES % (AUTO) 11 % (0-12); NEUTROPHILS # (AUTO) 1.6 X 10^3 (1.8-7.8); NEUTROPHILS % (AUTO) 30 % (42-75); PLATELET COUNT 342 10^3/uL (130-400); RED BLOOD COUNT 3.79 10^6/uL (4.35-5.85); RED CELL DISTRIBUTION WIDTH 15.8 % (10.0-14.5); WHITE BLOOD COUNT 5.3 10^3/uL (4.3-11.0)
--- NOTE | 2017-12-19 16:31 | Diagnostic Imaging Report ---
INDICATION: Stroke protocol. Weakness and confusion. COMPARISON: 12/18/2017. FINDINGS: Portable chest shows increasing cardiac size. There has been development of some pulmonary venous congestion with bilateral interstitial Kathrine B lines now present. No evidence of consolidated infiltrate. No pneumothorax or pleural effusion. IMPRESSION: 1. Findings are consistent with developing pulmonary edema and congestive failure when compared with previous day's exam. Dictated by: Dictated on workstation # [id number]
[2017-12-19 16:43] LABS: INR 1.2 (0.8-1.4); PARTIAL THROMBOPLASTIN TIME 30 SEC (24-35); PROTHROMBIN TIME PATIENT 15.1 SEC (12.2-14.7)
[2017-12-19 16:45] LABS: FIBRIN DEGRADATION PRODUCTS < 0.27 UG/ML (0.00-0.49)
[2017-12-19 16:54] LABS: ALANINE AMINOTRANSFERASE 15 U/L (0-55); ALBUMIN 2.7 GM/DL (3.2-4.5); ALKALINE PHOSPHATASE 73 U/L (40-136); BILIRUBIN,TOTAL 0.4 MG/DL (0.1-1.0); BUN/CREATININE RATIO 16; CALCIUM 8.5 MG/DL (8.5-10.1); CARBON DIOXIDE 20 MMOL/L (21-32); CHLORIDE 110 MMOL/L (98-107); CREATININE SERUM 1.34 MG/DL (0.60-1.30); GFR ESTIMATED 37; GLUCOSE 338 MG/DL (70-105); POTASSIUM 3.9 MMOL/L (3.6-5.0); SODIUM 138 MMOL/L (135-145); TOTAL PROTEIN 4.8 GM/DL (6.4-8.2)
[2017-12-19] MEDS ORDERED: DEXTROSE 50% 50 ML (IMS) SYR IV ONE (17:15)
[2017-12-19 17:40] LABS: BILIRUBIN,URINE NEGATIVE (NEGATIVE); CLARITY,URINE SLIGHTLY CLOUDY; COLOR,URINE YELLOW; GLUCOSE, URINE (UA) 2+ (NEGATIVE); KETONES,URINE NEGATIVE (NEGATIVE); LEUKOCYTE ESTERASE ,URINE NEGATIVE (NEGATIVE); NITRITE,URINE NEGATIVE (NEGATIVE); PH,URINE 5 (5-9); PROTEIN,URINE 3+ (NEGATIVE); UROBILINOGEN,URINE NORMAL (NORMAL)
[2017-12-19 17:49] LABS: BACTERIA,URINE MODERATE /HPF; WBC,URINE 0-2 /HPF
[2017-12-19 20:10] VITALS: BP 122/76
== END 2017-12-19 20:10 | disposition home or self-care (01) ==
LOC: EDUNIT# 15:38 → ER 15:40
DX: E11.649 Type 2 diabetes mellitus with hypoglycemia without coma (principal); J81.1 Chronic pulmonary edema; I48.91 Unspecified atrial fibrillation; I10 Essential (primary) hypertension; Z87.448 Personal history of other diseases of urinary system; Z79.82 Long term (current) use of aspirin; Z79.4 Long term (current) use of insulin; Z79.01 Long term (current) use of anticoagulants
CPT/HCPCS: 36415; 70450; 71045; 80053; 81000; 82962; 83880; 84484; 85025; 85379; 85610; 85730; 93005; 93041; 96374

== ENCOUNTER 2017-12-22 16:45 | Emergency (ER) | payer MEDICARE, OTHER ==
[~2017-12-22] VITALS: Ht 149.9 cm; Wt 52.6 kg
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
[2017-12-22] MEDS ORDERED: NS IV 500 ML 500 ML IV ONE (17:08)
--- NOTE | 2017-12-22 17:36 | ED General ---
General Chief Complaint: Glucose Problems Stated Complaint: VISION ISSUES/WEAKNESS Nursing Triage Note: PT TO ROOM 5 PT CO OF GLUECOSE PROBLEMS, STATES BS LOW TODAY AND VISION BLURRED. PT IS AN INSULIN DEPENDANT DIABETIC, PT HAS AUTOMATIC GLUECOSE READER Nursing Sepsis Screen: No Definite Risk Source of Information: Patient Exam Limitations: No Limitations History of Present Illness Date Seen by Provider: Dec 22, 2017 Time Seen by Provider: 17:20 Initial Comments Here with report of glucose problems and some vision blurriness. Overall much better now. She's had a couple visits over the last week including a hospitalization. She is overall much better today and in no acute distress. She states that she is here because her was concerned and wanted to have her evaluated prior to any worsening problems occurring. She is denying any other concerns currently. She has seen her doctor yesterday and they have adjusted her medications. Timing/Duration: 1 Hour, Gone Now Severity: Mild Modifying Factors: improves with Medication Associated Systoms: No Fever/Chills, No Nausea/Vomiting, No Weakness Allergies and Home Medications Allergies Coded Allergies: No Known Drug Allergies (Unverified , 11/03/09) Home Medications Amlodipine Besylate 2.5 Mg Tablet, 2.5 MG PO DAILY, (Reported) LAST FILLED #30 10-17-17 Apixaban 2.5 Mg Tablet, 2.5 MG PO BID Prescribed by: JONN YAO on 12/14/17 09 Aspirin 81 Mg Tab.chew, 81 MG PO DAILY@0900 Prescribed by: JONN YAO on 12/14/17 09 Atorvastatin Calcium 40 Mg Tablet, 40 MG PO HS, (Reported) LAST FILLED #30 10-17-17 Carvedilol 12.5 Mg Tablet, 12.5 MG PO BID, (Reported) LAST FILLED #60 09-21-17 Dronedarone HCl 400 Mg Tablet, 400 MG PO BID, (Reported) LAST FILLED #60 09-08-17 Furosemide 20 Mg Tablet, 20 MG PO DAILY PRN for SWELLING, (Reported) LAST FILLED #3 09-08-17 Insulin Glargine,Hum.rec.anlog 300 Unit/1 Ml Insuln.pen, 32 UNIT SQ HS, ( Reported) Insulin Lispro 100 Unit/1 Ml Insuln.pen, SQ UD, (Reported) USE 18 UNITS WITH MEALS PLUS CORRECTION Losartan Potassium 50 Mg Tablet, 50 MG PO DAILY, (Reported) Pantoprazole Sodium 20 Mg Tablet.dr, 20 MG PO DAILY, (Reported) LAST FILLED #30 09-21-17 Potassium Chloride 10 Meq Tablet.er, 10 MEQ PO DAILY PRN for WITH FUROSEMIDE, ( Reported) LAST FILLED #3 09-08-17 Sitagliptin Phosphate 100 Mg Tablet, 50 MG PO DAILY, (Reported) LAST RECEIVED UNKNOWN QUANTITIY OF SAMPLES IN SEPTEMBER TAKE 1/ (100MG) TABLET Patient Home Medication List Home Medication List Reviewed: Yes Review of Systems Constitutional: see HPI, No chills, No fever EENTM: see HPI Respiratory: No cough, No short of breath Cardiovascular: No chest pain, No edema Gastrointestinal: No nausea, No vomiting Skin: no symptoms reported Psychiatric/Neurological: See HPI, Denies Numbness, Denies Tingling Past Lukgzio-Hqwanz-Vnzqex Hx Past Med/Social Hx: Reviewed Nursing Past Med/Soc Hx Patient Social History Alcohol Use: Rarely Uses Number of Drinks Today: DD Alcohol Beverage of Choice: Rum Recreational Drug Use: No Smoking Status: Never a Smoker 2nd Hand Smoke Exposure: No Recent Foreign Travel: No Contact w/Someone Who Travel: No Recent Infectious Disease Expo: No Recent Hopitalizations: Yes (ED VISITS FOR BLOOD SUGAR PROB) Physical Abuse: No Sexual Abuse: No Immunizations Up To Date Tetanus Booster (TDap): Unknown PED Vaccines UTD: No Date of Pneumonia Vaccine: Jun 11, 2013 Date of Influenza Vaccine: Aug 08, 2017 Seasonal Allergies Seasonal Allergies: No Past Medical History Surgeries: Yes (RIGHT FOOT SURGERY) Respiratory: No Currently Using CPAP: No Currently Using BIPAP: No Cardiac: Yes (STENTS, MONITOR PLACED BY DR. 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 Sexually Transmitted Disease: No HIV/AIDS: No Genitourinary: Yes ( KIDNEY DISEASE) Renal Failure Gastrointestinal: No Musculoskeletal: Yes Arthritis Endocrine: Yes Diabetes, Insulin dep HEENT: Yes Cataract Hearing Impairment: Hard of Hearing, Bilateral Hearing Aide Cancer: No Psychosocial: No Nursing Suicide Risk Score: 0 Integumentary: No Blood Disorders: No Family Medical History Reviewed Nursing Family Hx Alzheimer's disease 19 MOTHER, Arthritis 19 FATHER, 19 MOTHER, G8 BROTHER, G8 BROTHER, G8 BROTHER G8 SISTER G8 SISTER Cardiovascular disease 19 MOTHER, G8 BROTHER, Completed stroke 19 MOTHER, G8 SISTER Hypercholesterolemia 19 FATHER, G8 BROTHER, Hypertension 19 MOTHER, Myocardial infarction 19 FATHER, G8 BROTHER, Heart Disease, Diabetes, Hypertension, Stroke Physical Exam Vital Signs Vital Signs - First Documented 12/22/17 16:50 Temp 97.2 Pulse 58 Resp 18 B/P (MAP) 94/67 (76) Pulse Ox 97 Capillary Refill : Less Than 3 Seconds General Appearance: No Apparent Distress, WD/WN HEENT: PERRL/EOMI, Pharynx Normal Neck: Non Tender, Supple Respiratory: No Accessory Muscle Use, No Respiratory Distress, Crackles (here at the base much less than on previous exam earlier this week by me.) Cardiovascular: Regular Rate, Rhythm, No Murmur Gastrointestinal: Non Tender, Soft Extremity: Normal Range of Motion, Non Tender Progress/Results/Core Measures Suspected Sepsis Recent Fever Within 48 Hours: No Infection Criteria Present: None New/Unexplained Altered Menta: No Sepsis Screen: No Definite Risk Sepsis Diagnosis: SIRS Temperature:97.2 Pulse: 58 Respiratory Rate: 18 Blood Pressure 94 /67 Mean: 76 Results/Orders Lab Results Laboratory Tests Test 12/22/17 16:51 Range/Units Glucometer 115 H 70-110 MG/DL My Orders Orders - HOSSEIN LEI MD Ns Iv 500 Ml (Sodium Chloride 0.9%) (12/22/17 17:08) Vital Signs/I&O Capillary Refill : Less Than 3 Seconds Blood Pressure Mean: 76 Progress Note : Progress Note Seen and evaluated. Overall much improved from previous visit earlier this week. Patient states that she does not require anything specifically now and family at bedside agree. Discharged home on current medication regimen with discharge instructions. Patient and family verbalized understanding instructions and agreement with plan. 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 Decision time for Depature: 17:38 Referrals: JONN YAO MD (PCP/Family) Primary Care Physician Patient Instructions: Diabetes Type 2 (DC) Add. Discharge Instructions: All discharge instructions reviewed with patient and/or family. Voiced understanding. Continue home medications as directed. Return for worse pain, fever, vomiting, weakness, breathing problems or other concerns as needed. HOSSEIN LEI MD Dec 22, 2017 17:35
[2017-12-22 18:02] VITALS: BP 105/48
== END 2017-12-22 18:02 | disposition home or self-care (01) ==
LOC: EDUNIT# 16:45 → ER 16:48
DX: E11.59 Type 2 diabetes mellitus with other circulatory complications (principal); I73.9 Peripheral vascular disease, unspecified; I48.91 Unspecified atrial fibrillation; I10 Essential (primary) hypertension; Z82.49 Family history of ischemic heart disease and other diseases of the circulatory system; Z79.01 Long term (current) use of anticoagulants; Z79.82 Long term (current) use of aspirin; Z79.4 Long term (current) use of insulin; Z95.5 Presence of coronary angioplasty implant and graft
CPT/HCPCS: 82962; 99281

== ENCOUNTER 2018-03-02 22:24 | Inpatient (IN) | payer MEDICARE, OTHER ==
[~2018-03-02] VITALS: Ht 149.9 cm; Wt 56.7 kg
[2018-03-02 22:45] LABS: BASOPHILS % (AUTO) 0 % (0-10); EOSINOPHILS # (AUTO) 0.3 10^3/uL (0.0-0.3); EOSINOPHILS % (AUTO) 3 % (0-10); HEMATOCRIT 42 % (35-52); HEMOGLOBIN 14.2 G/DL (11.5-16.0); LYMPHOCYTES # (AUTO) 3.6 X 10^3 (1.0-4.0); LYMPHOCYTES % (AUTO) 45 % (12-44); MEAN CORPUSCULAR HEMOGLOBIN 30 PG (25-34); MEAN CORPUSCULAR HGB CONC 34 G/DL (32-36); MEAN CORPUSCULAR VOLUME 87 FL (80-99); MEAN PLATELET VOLUME 12.3 FL (7.4-10.4); MONOCYTES # (AUTO) 0.7 X 10^3 (0.0-1.0); MONOCYTES % (AUTO) 9 % (0-12); NEUTROPHILS # (AUTO) 3.4 X 10^3 (1.8-7.8); NEUTROPHILS % (AUTO) 42 % (42-75); PLATELET COUNT 362 10^3/uL (130-400); RED BLOOD COUNT 4.82 10^6/uL (4.35-5.85); RED CELL DISTRIBUTION WIDTH 14.3 % (10.0-14.5)
[2018-03-02] MEDS ORDERED: inSUlin (REGULAR) HUMAN 1 UNIT/0.01 ML (CHARGE PER UNIT) SC ONE (22:45)
[2018-03-02 22:56] LABS: BILIRUBIN,URINE NEGATIVE (NEGATIVE); CLARITY,URINE CLEAR; COLOR,URINE YELLOW; GLUCOSE, URINE (UA) 4+ (NEGATIVE); KETONES,URINE NEGATIVE (NEGATIVE); LEUKOCYTE ESTERASE ,URINE 1+ (NEGATIVE); NITRITE,URINE NEGATIVE (NEGATIVE); PH,URINE 7 (5-9); PROTEIN,URINE 3+ (NEGATIVE); UROBILINOGEN,URINE NORMAL (NORMAL)
[2018-03-02] MEDS ORDERED: LORazepam INJ 2 MG/ML (ATIVAN) VIAL ONE (22:59)
[2018-03-02 23:00] LABS: ALBUMIN 3.6 GM/DL (3.2-4.5); BILIRUBIN,TOTAL 0.3 MG/DL (0.1-1.0); CALCIUM 10.3 MG/DL (8.5-10.1); CREATININE SERUM 2.02 MG/DL (0.60-1.30); TOTAL PROTEIN 6.9 GM/DL (6.4-8.2)
[2018-03-02] MEDS ORDERED: LABETALOL HCL 20 MG/4 ML VIAL ONE (23:05)
[2018-03-02 23:08] LABS: BACTERIA,URINE FEW /HPF; SQUAMOUS EPITHELIAL CELL,UR 0-2 /HPF
[2018-03-02] MEDS ORDERED: LABETALOL HCL 20 MG/4 ML VIAL IV ONE (23:15)
[2018-03-02] MEDS ORDERED: LORazepam INJ 2 MG/ML (ATIVAN) VIAL IVP ONE (23:15)
[2018-03-02] MEDS ORDERED: NS IV 1000 ML 1,000 ML IV ONE (23:40)
[2018-03-03] VITALS (24 sets, daily range): BP systolic 135–196; BP diastolic 45–71
--- NOTE | 2018-03-03 01:53 | ED Neurological Problem ---
General Chief Complaint: Neurological Problems Stated Complaint: POSSIBLE ANXIETY Nursing Triage Note: pt brought in by ems with complaint of stroke like smyptoms. per ems, pts blood sugar was "high plus ketones". Nursing Sepsis Screen: No Definite Risk Source: patient Exam Limitations: no limitations History of Present Illness Date Seen by Provider: Mar 03, 2018 Time Seen by Provider: 22:25 Initial Comments This 87-year-old woman presents to the emergency room via EMS with concern for possible stroke. EMS reports no focal neurologic deficits but the patient appears rather anxious. She has had high blood sugars recently and her present blood sugar reads "high". She is also notably hypertensive with systolic blood pressures exceeding 200. Family reports she has seemed confused recently. She has a history of atrial fibrillation but is in sinus rhythm at present. She takes Eliquis. She is an insulin-dependent type II diabetic. Family reports she had a seizure and was diagnosed with stroke in August of last year. Patient has decreased alertness but is technically oriented 3. She complains of paresthesias in her hands. Patient reports frequent urination and thirst. Allergies and Home Medications Allergies Coded Allergies: No Known Drug Allergies (Unverified , 11/03/09) Home Medications Amlodipine Besylate 2.5 Mg Tablet, 2.5 MG PO DAILY, (Reported) LAST FILLED #30 10-17-17 Apixaban 2.5 Mg Tablet, 2.5 MG PO BID Prescribed by: JONN YAO on 12/14/17 09 Aspirin 81 Mg Tab.chew, 81 MG PO DAILY@0900 Prescribed by: JONN YAO on 12/14/17 0937 Atorvastatin Calcium 40 Mg Tablet, 40 MG PO HS, (Reported) LAST FILLED #30 10-17-17 Dronedarone HCl 400 Mg Tablet, 400 MG PO BID, (Reported) LAST FILLED #60 09-08-17 Furosemide 20 Mg Tablet, 20 MG PO DAILY PRN for SWELLING, (Reported) LAST FILLED #3 09-08-17 Insulin Glargine,Hum.rec.anlog 300 Unit/1 Ml Insuln.pen, 32 UNIT SQ HS, ( Reported) Insulin Lispro 100 Unit/1 Ml Insuln.pen, SQ UD, (Reported) USE 18 UNITS WITH MEALS PLUS CORRECTION Losartan Potassium 50 Mg Tablet, 50 MG PO DAILY, (Reported) Pantoprazole Sodium 20 Mg Tablet.dr, 20 MG PO DAILY, (Reported) LAST FILLED #30 09-21-17 Potassium Chloride 10 Meq Tablet.er, 10 MEQ PO DAILY PRN for WITH FUROSEMIDE, ( Reported) LAST FILLED #3 09-08-17 Patient Home Medication List Home Medication List Reviewed: Yes Review of Systems Constitutional: see HPI Eyes: No Symptoms Reported Ears, Nose, Mouth, Throat: no symptoms reported Respiratory: no symptoms reported Cardiovascular: no symptoms reported Gastrointestinal: no symptoms reported Genitourinary: no symptoms reported Musculoskeletal: no symptoms reported Skin: no symptoms reported Psychiatric/Neurological: See HPI Endocrine: See HPI Hematologic/Lymphatic: No Symptoms Reported Past Zfohsjb-Qlumzj-Cgcmyi Hx Past Med/Social Hx: Reviewed and Corrections made Patient Social History Alcohol Use: Denies Use Number of Drinks Today: DD Alcohol Beverage of Choice: Rum Recreational Drug Use: No Smoking Status: Never a Smoker 2nd Hand Smoke Exposure: No Recent Foreign Travel: No Contact w/Someone Who Travel: No Recent Infectious Disease Expo: No Recent Hopitalizations: Yes (ED VISITS FOR BLOOD SUGAR PROB) Immunizations Up To Date Tetanus Booster (TDap): Unknown PED Vaccines UTD: No Date of Pneumonia Vaccine: Jun 11, 2013 Date of Influenza Vaccine: Aug 08, 2017 Seasonal Allergies Seasonal Allergies: No Past Medical History Surgeries: Yes (RIGHT FOOT SURGERY) Respiratory: No Currently Using CPAP: No Currently Using BIPAP: No Cardiac: Yes (STENTS, MONITOR PLACED BY DR. 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 Sexually Transmitted Disease: No HIV/AIDS: No Genitourinary: Yes ( KIDNEY DISEASE) Renal Failure Gastrointestinal: No Musculoskeletal: Yes Arthritis Endocrine: Yes Diabetes, Insulin dep HEENT: Yes Cataract Hearing Impairment: Hard of Hearing, Bilateral Hearing Aide Cancer: No Psychosocial: No Integumentary: No Blood Disorders: No Family Medical History Reviewed Nursing Family Hx Alzheimer's disease 19 MOTHER, Arthritis 19 FATHER, 19 MOTHER, G8 BROTHER, G8 BROTHER, G8 BROTHER G8 SISTER G8 SISTER Cardiovascular disease 19 MOTHER, G8 BROTHER, Completed stroke 19 MOTHER, G8 SISTER Hypercholesterolemia 19 FATHER, G8 BROTHER, Hypertension 19 MOTHER, Myocardial infarction 19 FATHER, G8 BROTHER, Heart Disease, Diabetes, Hypertension, Stroke Physical Exam Vital Signs Vital Signs - First Documented 03/02/18 22:25 Temp 97.6 Pulse 80 Resp 20 B/P (MAP) 219/96 (137) Pulse Ox 98 O2 Delivery Room Air Capillary Refill : Less Than 3 Seconds General Appearance: WD/WN, mild distress HEENT: PERRL/EOMI, normal ENT inspection, other (Oropharynx appears dry) Neck: normal inspection Respiratory: lungs clear, normal breath sounds, no respiratory distress, no accessory muscle use Cardiovascular: regular rate, rhythm, no edema, no murmur Gastrointestinal: normal bowel sounds, non tender, soft Extremities: non-tender, normal inspection, no pedal edema 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, alert (Alert but decreased alertness from baseline), normal mood/affect, oriented x 3 (But cognition dulled ), motor weakness (Generalized) Crainal Nerves: normal hearing, normal speech, PERRL Skin: normal color, warm/dry Stroke NIH Stroke Scale Assessment Gaze: Normal (0), Total: Stroke Thrombolytic Exclusion Age 18 or Over: Yes Acute intenal hemorrhage: No History of CVA: No Uncontrolled Coagulation Defec: No Intracranial Hemorrhage: No Severe Hypertension: No GI or Bleed: No Subarachnoid Hemorrhage: No Intracranial Neoplasm/Aneurysm: No Oral Anticoagulants: Yes Surgery or Trauma: No Puncture of Non-Compressible V: No Recent CPR: No Diabetic Hemorrhagic Retinopat: No Organ Biopsy: No Recent Obstetric Delivery: No Glucose: Yes Significant Hepatic Dysfunctio: No NIH Stoke Scale >22: No Bacterial Endocarditis: No Pericarditis: No Improving Symptoms: Yes Platelets: No Progress/Results/Core Measures Results/Orders Lab Results Laboratory Tests Test 03/02/18 22:30 03/02/18 22:45 03/02/18 22:48 03/02/18 23:02 Range/Units White Blood Count 8.0 4.3-11.0 10^3/uL Red Blood Count 4.82 4.35-5.85 10^6/uL Hemoglobin 14.2 11.5-16.0 G/DL Hematocrit 42 35-52 % Mean Corpuscular Volume 87 80-99 FL Mean Corpuscular Hemoglobin 30 25-34 PG Mean Corpuscular Hemoglobin Concent 34 32-36 G/DL Red Cell Distribution Width 14.3 10.0-14.5 % Platelet Count 362 130-400 10^3/uL Mean Platelet Volume 12.3 H 7.4-10.4 FL Neutrophils (%) (Auto) 42 42-75 % Lymphocytes (%) (Auto) 45 H 12-44 % Monocytes (%) (Auto) 9 0-12 % Eosinophils (%) (Auto) 3 0-10 % Basophils (%) (Auto) 0 0-10 % Neutrophils # (Auto) 3.4 1.8-7.8 X 10^3 Lymphocytes # (Auto) 3.6 1.0-4.0 X 10^3 Monocytes # (Auto) 0.7 0.0-1.0 X 10^3 Eosinophils # (Auto) 0.3 0.0-0.3 10^3/uL Basophils # (Auto) 0.0 0.0-0.1 10^3/uL Sodium Level 132 L 135-145 MMOL/L Potassium Level 5.0 3.6-5.0 MMOL/L Chloride Level 100 98-107 MMOL/L Carbon Dioxide Level 15 L 21-32 MMOL/L Anion Gap 17 H 5-14 MMOL/L Blood Urea Nitrogen 29 H 7-18 MG/DL Creatinine 2.02 H 0.60-1.30 MG/DL Estimat Glomerular Filtration Rate 23 BUN/Creatinine Ratio 14 Glucose Level 771 *H 70-105 MG/DL Calcium Level 10.3 H 8.5-10.1 MG/DL Magnesium Level 2.0 1.8-2.4 MG/DL Total Bilirubin 0.3 0.1-1.0 MG/DL Aspartate Amino Transf (AST/SGOT) 36 H 5-34 U/L Alanine Aminotransferase (ALT/SGPT) 34 0-55 U/L Alkaline Phosphatase 139 H 40-136 U/L Total Protein 6.9 6.4-8.2 GM/DL Albumin 3.6 3.2-4.5 GM/DL Urine Color YELLOW Urine Clarity CLEAR Urine pH 7 5-9 Urine Specific [place] 1.005 L 1.016-1.022 Urine Protein 3+ H NEGATIVE Urine Glucose (UA) 4+ H NEGATIVE Urine Ketones NEGATIVE NEGATIVE Urine Nitrite NEGATIVE NEGATIVE Urine Bilirubin NEGATIVE NEGATIVE Urine Urobilinogen NORMAL NORMAL MG/DL Urine Leukocyte Esterase 1+ H NEGATIVE Urine RBC (Auto) 1+ H NEGATIVE Urine RBC NONE /HPF Urine WBC 2-5 /HPF Urine Squamous Epithelial Cells 0-2 /HPF Urine Crystals NONE /LPF Urine Bacteria FEW H /HPF Urine Casts NONE /LPF Urine Mucus NEGATIVE /LPF Urine Culture Indicated NO Glucometer > 600 *H 560 *H 70-110 MG/DL Test 03/03/18 01:06 Range/Units Glucometer 456 *H 70-110 MG/DL My Orders Orders - BRUNO MCCABE MD Cbc With Automated Diff (03/02/18 22:32) Comprehensive Metabolic Panel (03/02/18 22:32) Magnesium (03/02/18 22:32) Ua Culture If Indicated (03/02/18 22:32) Saline Lock/Iv-Start (03/02/18 22:32) Monitor-Rhythm Ecg Trace Only (03/02/18 22:32) Chest 1 View, Ap/Pa Only (03/02/18 22:32) Insulin (Regular) Human (Humulin R (Per (03/02/18 22:45) Accucheck Stat ONCE (03/02/18 22:45) Lorazepam Injection (Ativan Injection) (03/02/18 22:59) Lorazepam Injection (Ativan Injection) (03/02/18 23:15) Labetalol Injection (Normodyne Injection (03/02/18 23:15) Labetalol Injection (Normodyne Injection (03/02/18 23:05) Ct Head Wo (03/02/18 23:08) Ekg Tracing (03/02/18 23:28) Saline Lock/Iv-Start (03/02/18 23:40) Ns Iv 1000 Ml (Sodium Chloride 0.9%) (03/02/18 23:40) Accucheck Stat ONCE (03/03/18 01:04) Accucheck Stat ONCE (03/03/18 01:04) Medications Given in ED Current Medications Medications Dose Ordered Sig/Thee Route Start Time Stop Time Status Last Admin Dose Admin Insulin Human Regular 5 unit ONCE ONCE SC 03/02/18 22:45 03/02/18 22:46 DC 03/02/18 22:49 5 UNIT Labetalol HCl 10 mg ONCE ONCE IV 03/02/18 23:15 03/02/18 23:16 DC 03/02/18 23:09 10 MG Lorazepam 1 mg ONCE ONCE IVP 03/02/18 23:15 03/02/18 23:16 DC 03/02/18 23:09 1 MG Sodium Chloride 1,000 ml @ 0 mls/hr Q0M ONCE IV 03/02/18 23:40 03/02/18 23:41 DC 03/02/18 23:50 1,000 MLS/HR Vital Signs/I&O 03/02/18 22:25 Temp 97.6 Pulse 80 Resp 20 B/P (MAP) 219/96 (137) Pulse Ox 98 O2 Delivery Room Air 03/03/18 00:00 Intake Total 1000 ml Balance 1000 ml Blood Pressure Mean: 137 FSBG Bedside Testing Finger Stick Blood Glucose: 456 Blood Glucose Action Taken: PHYSCIAN NOTIFIED Progress Progress Note : Progress Note Patient was seen and examined upon arrival. "High" blood sugar was confirmed. IV fluids were initiated. Insulin 5 units IV was administered. Patient had a brief seizure lasting less than 2 minutes. Ativan 1 mg IV was administered. Patient was taken to CT for CT of the head. No acute findings were found on imaging. Patient's blood sugar was monitored and continued to trend down. His second liter of IV fluid was administered. Patient was admitted to the ICU. CODE STATUS was discussed with the . He states patient's desires were clearly expressed as DO NOT RESUSCITATE. Patient was noted to be persistently hypertensive. Labetalol 10 mg IV was administered for control of blood pressure with good results. Initial ECG Impression Date: Mar 02, 2018 Initial ECG Impression Time: 23:41 Initial ECG Rate: 86 Initial ECG Rhythm: Normal Sinus Initial ECG Intervals: Normal Initial ECG Impression: Normal Comment Normal sinus rhythm with no ST elevation or depression. No abnormal intervals or axis deviation. Diagnostic Imaging Diagonstic Imaging: CT Plain Films/CT/US/NM/MRI: head Comments CT head viewed by me and stat rad report reviewed. No acute abnormalities appreciated. Diagonstic Imaging: Xray Plain Films/CT/US/NM/MRI: chest Comments Chest x-ray viewed by me. Report not yet available. No significant acute abnormalities appreciated. Departure Communication (Admissions) Time/Spoke to Admitting Phy: 01:30 Dr. Tucker Impression Primary Impression: Hypertensive emergency Additional Impressions: Seizure Hyperglycemia Acute renal failure Qualified Codes: N17.9 - Acute kidney failure, unspecified Disposition: ADMITTED INPATIENT Condition: Improved Admissions Decision to Admit Reason: Admit from ER (General) Decision to Admit/Date: Mar 02, 2018 Time/Decision to Admit Time: 23:00 Departure-Patient Inst. Referrals: JONN YAO MD (PCP/Family) Primary Care Physician BRUNO MCCABE MD Mar 03, 2018 01:53
--- OUTSIDE RECORDS SUMMARY | 2018-03-03 02:11 | XMS REPORT | Continuity of Care Document ---
Author Author [facility] Organization [facility] Address Unknown Phone Unavailable Allergies Active Description Code Type Severity Reaction Onset Reported/Identified Relationship to Patient Clinical Status Yes No Known Drug Allergies [id number] Drug Allergy Mild N/A 11/03/2009 Medications There is no data. Problems Date Dx Coded Attending Type Code Diagnosis Diagnosed By 08/17/1514 JONN YAO MD Ot E11.9 TYPE 2 DIABETES MELLITUS WITHOUT COMPLIC 08/17/1514 JONN YAO MD Ot I10 ESSENTIAL (PRIMARY) HYPERTENSION 08/17/1514 JONN YAO MD Ot R26.2 DIFFICULTY IN WALKING, NOT ELSEWHERE CLA 08/17/1514 JONN YAO MD Ot Z79.4 GENERAL SERVICE OFFICER (CURRENT) USE OF INSULIN 01/26/2010 Ot 250.00 [...] REHMAN MD Ot 414.01 CORONARY ATHEROSCLEROSIS OF [place] CORON 04/02/2013 TAMMIE REHMAN MD, Ot 414.4 [...] WEINSTEIN MD Ot 414.01 CORONARY ATHEROSCLEROSIS OF [place] CORON 04/17/2013 DANIEL WEINSTEIN MD Ot 427.31 [...] Ot V45.82 PERCUTANEOUS TRANSLUM CORON ANGIOPLASTY 04/17/2013 DNAIEL WEINSTEIN MD Ot V58.67 LONG-TERM (CURRENT) USE OF INSULIN 06/10/2013 MORE PLAZA BOLIVAR Booth Ot 853.00 TRAUMATIC BRAIN HEM NEC 06/10/2013 MORE DO BOLIVAR Booth Ot 959.01 HEAD INJURY, NOS 06/10/2013 MORE BOLIVAR Booth Ot E000.8 OTHER EXTERNAL CAUSE STATUS 06/10/2013 MORE DO BOLIVAR Booth Ot 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 06/10/2013 MORE BOLIVAR Booth Ot E849.[address]/HIGHWAY 06/26/2013 OXANA DAHL, KACIE Fan Ot 250.00 DIAB ANDREEA WO COMPL, TYPE II OR UNSPEC TY 06/26/2013 OXANA DAHL, KACIE Fan Ot 401.9 HYPERTENSION NOS 06/26/2013 OXANA DAHL, KACIE Fan Ot 414.01 CORONARY ATHEROSCLEROSIS OF [place] CORON 06/26/2013 OXANA DAHL, KACIE Fan Ot [...] REHMAN MD Ot 414.01 CORONARY ATHEROSCLEROSIS OF [place] CORON 05/12/2014 TAMMIE REHMAN MD Ot 427.31 [...] REHMAN MD Ot 414.01 CORONARY ATHEROSCLEROSIS OF [place] CORON 05/15/2014 TAMMIE REHMAN MD Ot 427.31 [...] BAKER Ot I25.10 ATHSCL HEART DISEASE OF [place] CORONARY 01/21/2016 BRUNILDA BAKER Ot I48.0 PAROXYSMAL ATRIAL FIBRILLATION 01/21/2016 BRUNILDA BAKER Ot I65.23 OCCLUSION AND STENOSIS OF BILATERAL [place] 01/25/2016 BRUNILDA BAKER Ot E78.2 MIXED HYPERLIPIDEMIA 01/25/2016 BRUNILDA BAKER Ot I10 ESSENTIAL (PRIMARY) HYPERTENSION 01/25/2016 BRUNILDA BAKER Ot I25.10 ATHSCL HEART DISEASE OF [place] CORONARY 01/25/2016 HORTON-VANIA PA, BRUNILDA K Ot I48.0 PAROXYSMAL ATRIAL FIBRILLATION 01/25/2016 TERRY PA, BRUNILDA Booth Ot I65.23 OCCLUSION AND STENOSIS OF BILATERAL [place] 01/26/2016 TERRY PA, BRUNILDA Booth Ot E78.2 MIXED HYPERLIPIDEMIA 01/26/2016 TERRY VACA, BRUNILDA K Ot I10 ESSENTIAL (PRIMARY) HYPERTENSION 01/26/2016 TERRY VACA, BRUNILDA Booth Ot I25.10 ATHSCL HEART DISEASE OF [place] CORONARY 01/26/2016 TERRY PA, BRUNILDA Booth Ot [...] Booth Ot I25.10 ATHSCL HEART DISEASE OF [place] CORONARY 02/09/2016 TERRY PA, BRUNILDA Booth Ot [...] Leobardo Ot I25.10 ATHSCL HEART DISEASE OF [place] CORONARY 02/23/2016 TERRY VACA, BRUNILDA Booth Ot [...] TAMMIE Landa Ot 414.01 CORONARY ATHEROSCLEROSIS OF [place] CORON 07/15/2016 CORINNA DAHL, DANIEL King Ot [...] TYPE II OR UNSPEC TY 07/15/2016 TERRY VCAA BRUNILDA K Ot 272.4 HYPERLIPIDEMIA NEC/NOS 07/15/2016 [...] K Ot I25.10 ATHSCL HEART DISEASE OF [place] CORONARY 07/15/2016 TERRY PA, BRUNILDA K Ot [...] K Ot I25.10 ATHSCL HEART DISEASE OF [place] CORONARY 07/15/2016 TERRY PA, BRUNILDA K Ot [...] MD Ot I25.10 ATHSCL HEART DISEASE OF [place] CORONARY 08/17/2016 JONN YAO MD Ot I48.0 PAROXYSMAL ATRIAL FIBRILLATION 08/17/2016 JONN YAO MD Ot I49.5 SICK SINUS SYNDROME 08/17/2016 JONN YAO MD Ot 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 08/17/2016 JONN YAO MD Ot N28.9 DISORDER OF KIDNEY AND URETER, UNSPECIFI 08/17/2016 JONN YAO MD Ot Z79.4 USP (CURRENT) USE OF INSULIN 08/17/2016 JONN YAO MD Ot Z95.5 PRESENCE OF CORONARY ANGIOPLASTY IMPLANT 08/17/2016 JONN YAO MD Ot E11.9 TYPE 2 DIABETES MELLITUS WITHOUT COMPLIC 08/17/2016 JONN YAO MD Ot E78.5 HYPERLIPIDEMIA, UNSPECIFIED 08/17/2016 JONN YAO MD Ot I10 ESSENTIAL (PRIMARY) HYPERTENSION 08/17/2016 JONN YAO MD Ot I25.10 ATHSCL HEART DISEASE OF [place] CORONARY 08/17/2016 JONN YAO MD Ot I48.0 PAROXYSMAL ATRIAL FIBRILLATION 08/17/2016 JONN YAO MD Ot I49.5 SICK SINUS SYNDROME 08/17/2016 JONN YAO MD Ot 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 08/17/2016 JONN YAO MD Ot N28.9 DISORDER OF KIDNEY AND URETER, UNSPECIFI 08/17/2016 JONN YAO MD Ot Z79.4 GENERAL SERVICE OFFICER (CURRENT) USE OF INSULIN 08/17/2016 JONN YAO [...] REHMAN MD Ot 414.01 CORONARY ATHEROSCLEROSIS OF [place] CORON 05/26/2017 CORINNA DAHL, DANIEL King Ot [...] Booth Ot I25.10 ATHSCL HEART DISEASE OF [place] CORONARY 05/26/2017 HORTON-VANIA VACA, BRUNILDA K Ot I48.0 PAROXYSMAL ATRIAL FIBRILLATION 05/26/2017 HORTON-AVNIA VACA, BRUNILDA K Ot I65.23 OCCLUSION AND STENOSIS OF BILATERAL [place] 05/26/2017 JOHNSON DO, DESTINEE L Ot E11.9 TYPE 2 DIABETES MELLITUS WITHOUT COMPLIC 05/26/2017 HORTON-VANIA VACA BRUNILDA K Ot E78.2 MIXED HYPERLIPIDEMIA 05/26/2017 HORTONJUAQUIN NOLA, BRUNILDA K Ot I10 ESSENTIAL (PRIMARY) HYPERTENSION 05/26/2017 HORTON-VANIA VACA, BRUNILDA K Ot I25.10 ATHSCL HEART DISEASE OF [place] CORONARY 05/26/2017 HORTON-VANIA VACA BRUNILDA K Ot I48.0 PAROXYSMAL ATRIAL FIBRILLATION 05/26/2017 HORTON-VANIA VACA BRNUILDA K Ot I65.23 OCCLUSION AND STENOSIS OF [...] PAIN 05/26/2017 SELMA RUIZ MD Ot Z79.01 GENERAL SERVICE OFFICER (CURRENT) USE OF ANTICOAGULANT 05/26/2017 SELMA RUIZ MD Ot Z79.4 USP (CURRENT) USE OF INSULIN 05/26/2017 SELMA RUIZ MD Ot Z82.49 FAMILY HX OF ISCHEM HEART DIS AND OTH DI 05/26/2017 Ot V76.12 OTH SCREEN MAMMO-MALIGN NEOPLASM OF [place] 05/26/2017 DANIEL WEISNTEIN MD Ot 276.1 HYPOSMOLALITY 05/26/2017 DANIEL WEINSTEIN MD Ot 276.8 HYPOPOTASSEMIA 05/26/2017 DANIEL WEINSTEIN MD Ot 287.5 THROMBOCYTOPENIA NOS 05/26/2017 TAMMIE REHMAN MD Ot 250.00 DIAB ANDREEA WO COMPL, TYPE II OR UNSPEC TY 05/26/2017 TAMMIE REHMAN MD Ot 272.4 HYPERLIPIDEMIA NEC/NOS 05/26/2017 TAMMIE REHMAN MD Ot 414.01 CORONARY ATHEROSCLEROSIS OF [place] CORON 05/26/2017 DANIEL WEINSTEIN MD Ot 782.3 [...] BAKER Ot I25.10 ATHSCL HEART DISEASE OF [place] CORONARY 05/26/2017 BRUNILDA BAKER Ot I48.0 PAROXYSMAL ATRIAL FIBRILLATION 05/26/2017 BRUNILDA BAKER Ot I65.23 OCCLUSION AND STENOSIS OF [place]ILATERAL [place] 05/26/2017 DESTINEE JOHNSON DO Ot E11.9 TYPE 2 DIABETES MELLITUS WITHOUT COMPLIC 05/26/2017 BRUNILDA BAKER Ot E78.2 MIXED HYPERLIPIDEMIA 05/26/2017 BRUNILDA BAKER Ot I10 ESSENTIAL (PRIMARY) HYPERTENSION 05/26/2017 BRUNILDA BAKER Ot I25.10 ATHSCL HEART DISEASE OF [place] CORONARY 05/26/2017 BRUNILDA BAKER Ot I48.0 PAROXYSMAL [...] PAIN 05/29/2017 SELMA RUIZ MD, Ot Z79.01 USP (CURRENT) USE OF ANTICOAGULANT 05/29/2017 SELMA RUIZ MD Ot Z79.4 USP (CURRENT) USE OF INSULIN 05/29/2017 SELMA RUIZ MD Ot Z82.49 FAMILY HX OF ISCHEM HEART DIS AND OTH DI 07/03/2017 JONN YAO MD Ot E11.9 TYPE 2 DIABETES MELLITUS WITHOUT COMPLIC 07/03/2017 JONN YAO MD Ot I10 ESSENTIAL (PRIMARY) HYPERTENSION 07/03/2017 JONN YAO MD Ot R26.2 DIFFICULTY IN WALKING, NOT ELSEWHERE CLA 07/03/2017 JONN YAO MD Ot Z79.4 GENERAL SERVICE OFFICER (CURRENT) USE OF INSULIN 07/27/2017 JONN YAO MD Ot E11.9 TYPE 2 DIABETES MELLITUS WITHOUT COMPLIC 07/27/2017 JONN YAO MD Ot I10 ESSENTIAL (PRIMARY) HYPERTENSION 07/27/2017 JONN YAO MD Ot R26.2 DIFFICULTY IN WALKING, NOT ELSEWHERE CLA 07/27/2017 JONN YAO MD Ot Z79.4 USP (CURRENT) USE OF INSULIN 08/29/2017 KACIE DAIGLE [...] 08/29/2017 KACIE DAIGLE MD E Ot Z79.4 USP (CURRENT) USE OF INSULIN 08/29/2017 KACIE DAIGLE MD E Ot Z95.5 PRESENCE OF CORONARY ANGIOPLASTY IMPLANT 08/29/2017 KACIE DAIGLE MD E Ot E11.649 TYPE 2 DIABETES MELLITUS WITH HYPOGLYCEM 08/29/2017 KACIE DAIGLE MD E Ot F03.90 UNSPECIFIED DEMENTIA [...] 08/29/2017 KACIE DAIGLE MD E Ot Z79.4 GENERAL SERVICE OFFICER (CURRENT) USE OF INSULIN 08/29/2017 KACIE DAIGLE MD E Ot Z95.5 PRESENCE OF CORONARY ANGIOPLASTY IMPLANT 08/29/2017 BRUNILDA BAKER Ot E78.2 MIXED HYPERLIPIDEMIA 08/29/2017 BRUNILDA BAKER Ot I10 ESSENTIAL (PRIMARY) HYPERTENSION 08/29/2017 BRUNILDA BAKER Ot I25.10 ATHSCL HEART DISEASE OF [place] CORONARY 12/14/2017 JONN YAO MD Ot E11.51 [...] MD Ot I25.10 ATHSCL HEART DISEASE OF [place] CORONARY 12/14/2017 JONN YAO MD Ot I48.0 [...] GIDDINESS 12/14/2017 JONN YAO MD, Ot Z79.01 USP (CURRENT) USE OF ANTICOAGULANT 12/14/2017 JONN YAO MD Ot Z79.4 GENERAL SERVICE OFFICER (CURRENT) USE OF INSULIN 12/14/2017 JONN YAO MD, Ot Z79.82 GENERAL SERVICE OFFICER (CURRENT) USE OF ASPIRIN 12/14/2017 JONN YAO MD Ot Z86.73 PRSNL HX OF TIA (TIA), AND CEREB INFRC W 12/14/2017 JONN YAO MD, Ot Z91.11 PATIENT'S NONCOMPLIANCE WITH DIETARY REG 12/14/2017 JONN YAO MD Ot Z95.5 PRESENCE OF CORONARY ANGIOPLASTY IMPLANT 12/14/2017 JONN YAO MD Ot Z97.4 PRESENCE OF EXTERNAL HEARING-AID 12/18/2017 IVONNE MUHAMMAD MD Ot E11.59 TYPE 2 DIABETES MELLITUS WITH OTH CIRCUL 12/18/2017 IVONNE MUHAMMAD MD Ot I10 ESSENTIAL (PRIMARY) HYPERTENSION 12/18/2017 IVONNE MUHAMMAD MD Ot I48.91 UNSPECIFIED ATRIAL FIBRILLATION 12/18/2017 IVONNE MUHAMMAD MD Ot I73.9 PERIPHERAL VASCULAR DISEASE, UNSPECIFIED 12/18/2017 IVONNE MUHAMMAD MD Ot M54.12 RADICULOPATHY, CERVICAL REGION 12/18/2017 IVONNE MUHAMMAD MD, Ot M54.42 LUMBAGO WITH SCIATICA, LEFT SIDE 12/18/2017 IVONNE MUHAMMAD MD Ot R20.0 ANESTHESIA OF SKIN 12/18/2017 IVONNE MUHAMMAD MD Ot Z79.01 USP (CURRENT) USE OF ANTICOAGULANT 12/18/2017 IVONNE MUHAMMAD MD Ot Z79.4 USP (CURRENT) USE OF INSULIN 12/18/2017 IVONNE MUHAMMAD MD, Ot Z79.82 GENERAL SERVICE OFFICER (CURRENT) USE OF ASPIRIN 12/18/2017 IVONNE MUHAMMAD MD, Ot Z82.49 FAMILY HX OF ISCHEM HEART DIS AND OTH DI 12/18/2017 IVONNE MUHAMMAD MD, Ot Z95.5 PRESENCE OF CORONARY ANGIOPLASTY IMPLANT 12/19/2017 HOSSEIN LEI MD, Ot E11.649 TYPE 2 DIABETES MELLITUS WITH HYPOGLYCEM 12/19/2017 HOSSEIN LEI MD Ot I10 ESSENTIAL (PRIMARY) HYPERTENSION 12/19/2017 HOSSEIN LEI MD Ot I48.91 UNSPECIFIED ATRIAL FIBRILLATION 12/19/2017 HOSSEIN LEI MD, Ot J81.1 CHRONIC PULMONARY EDEMA 12/19/2017 HOSSEIN LEI MD Ot R29.898 OTH SYMPTOMS AND SIGNS INVOLVING THE MUS 12/19/2017 HOSSEIN LEI MD Ot Z79.01 GENERAL SERVICE OFFICER (CURRENT) USE OF ANTICOAGULANT 12/19/2017 HOSSEIN LEI MD Ot Z79.4 USP (CURRENT) USE OF INSULIN 12/19/2017 HOSSEIN LEI MD, Ot Z79.82 GENERAL SERVICE OFFICER (CURRENT) USE OF ASPIRIN 12/19/2017 HOSSEIN LEI MD Ot Z87.448 PERSONAL HISTORY OF OTHER DISEASES OF [place] 12/21/2017 HOSSEIN LEI MD Ot E11.649 TYPE 2 DIABETES MELLITUS WITH HYPOGLYCEM 12/21/2017 HOSSEIN LEI MD Ot I10 ESSENTIAL (PRIMARY) HYPERTENSION 12/21/2017 HOSSEIN LEI MD Ot I48.91 UNSPECIFIED ATRIAL FIBRILLATION 12/21/2017 HOSSEIN LEI MD Ot J81.1 CHRONIC PULMONARY EDEMA 12/21/2017 HOSSEIN LEI MD Ot R29.898 OTH SYMPTOMS AND SIGNS INVOLVING THE MUS 12/21/2017 HOSSEIN LEI MD Ot R60.0 LOCALIZED EDEMA 12/21/2017 HOSSEIN LEI MD Ot Z79.01 USP (CURRENT) USE OF ANTICOAGULANT 12/21/2017 HOSSEIN LEI MD Ot Z79.4 USP (CURRENT) USE OF INSULIN 12/21/2017 HOSSEIN LEI MD Ot Z79.82 USP (CURRENT) USE OF ASPIRIN 12/21/2017 HOSSEIN LEI MD Ot Z87.448 PERSONAL HISTORY OF OTHER DISEASES OF UR 12/21/2017 HOSSEIN LEI MD Ot E11.649 TYPE 2 DIABETES MELLITUS WITH HYPOGLYCEM 12/21/2017 HOSSEIN LEI MD Ot I10 ESSENTIAL (PRIMARY) HYPERTENSION 12/21/2017 HOSSEIN LEI MD Ot I48.91 UNSPECIFIED ATRIAL FIBRILLATION 12/21/2017 HOSSEIN LEI MD Ot J81.1 CHRONIC PULMONARY EDEMA 12/21/2017 HOSSEIN LEI MD Ot R29.898 OTH SYMPTOMS AND SIGNS INVOLVING THE MUS 12/21/2017 HOSSEIN LEI MD Ot Z79.01 USP (CURRENT) USE OF ANTICOAGULANT 12/21/2017 HOSSEIN LEI MD Ot Z79.4 USP (CURRENT) USE OF INSULIN 12/21/2017 HOSSEIN LEI MD Ot Z79.82 GENERAL SERVICE OFFICER (CURRENT) USE OF ASPIRIN 12/21/2017 HOSSEIN LEI MD Ot Z87.448 PERSONAL HISTORY OF OTHER DISEASES OF [place] 12/22/2017 HOSSEIN LEI MD Ot E11.59 TYPE 2 DIABETES MELLITUS WITH OTH CIRCUL 12/22/2017 HOSSEIN LEI MD Ot H53.8 OTHER VISUAL DISTURBANCES 12/22/2017 HOSSEIN LEI MD Ot I10 ESSENTIAL (PRIMARY) HYPERTENSION 12/22/2017 HOSSEIN LEI MD Ot I48.91 UNSPECIFIED ATRIAL FIBRILLATION 12/22/2017 HOSSEIN LEI MD Ot I73.9 PERIPHERAL VASCULAR DISEASE, UNSPECIFIED 12/22/2017 HOSSEIN LEI MD Ot Z79.01 USP (CURRENT) USE OF ANTICOAGULANT 12/22/2017 HOSSEIN LEI MD Ot Z79.4 USP (CURRENT) USE OF INSULIN 12/22/2017 HOSSEIN LEI MD Ot Z79.82 GENERAL SERVICE OFFICER (CURRENT) USE OF ASPIRIN 12/22/2017 HOSSEIN LEI MD Ot Z82.49 FAMILY HX OF ISCHEM HEART DIS AND OTH DI 12/22/2017 HOSSEIN LEI MD Ot Z95.5 PRESENCE OF CORONARY ANGIOPLASTY IMPLANT 12/24/2017 IVONNE MUHAMMAD MD Ot E11.59 TYPE 2 DIABETES MELLITUS WITH OTH CIRCUL 12/24/2017 IVONNE MUHAMMAD MD Ot I10 ESSENTIAL (PRIMARY) HYPERTENSION 12/24/2017 IVONNE MUHAMMAD MD Ot I48.91 UNSPECIFIED ATRIAL FIBRILLATION 12/24/2017 IVONNE MUHAMMAD MD Ot I73.9 PERIPHERAL VASCULAR DISEASE, UNSPECIFIED 12/24/2017 IVONNE MUHAMMAD MD Ot M54.12 RADICULOPATHY, CERVICAL REGION 12/24/2017 IVONNE MUHAMMAD MD Ot M54.42 LUMBAGO WITH SCIATICA, LEFT SIDE 12/24/2017 IVONNE MUHAMMAD MD Ot R20.0 ANESTHESIA OF SKIN 12/24/2017 IVONNE MUHAMMAD MD Ot Z79.01 USP (CURRENT) USE OF ANTICOAGULANT 12/24/2017 IVONNE MUHAMMAD MD Ot Z79.4 USP (CURRENT) USE OF INSULIN 12/24/2017 IVONNE MUHAMMAD MD Ot Z79.82 USP (CURRENT) USE OF ASPIRIN 12/24/2017 IVONNE MUHAMMAD MD Ot Z82.49 FAMILY HX OF ISCHE[place] HEART DIS AND OTH DI 12/24/2017 IVONNE MUHAMMAD MD Ot Z95.5 PRESENCE OF CORONARY ANGIOPLASTY IMPLANT 12/25/2017 HOSSEIN LEI MD Ot E11.649 TYPE 2 DIABETES MELLITUS WITH HYPOGLYCEM 12/25/2017 HOSSEIN LEI MD Ot I10 ESSENTIAL (PRIMARY) HYPERTENSION 12/25/2017 HOSSEIN LEI MD Ot I48.91 UNSPECIFIED ATRIAL FIBRILLATION 12/25/2017 HOSSEIN LEI MD Ot J81.1 CHRONIC PULMONARY EDEMA 12/25/2017 HOSSEIN LEI MD Ot R29.898 OT SYMPTOMS AND SIGNS INVOLVING THE MUS 12/25/2017 HOSSEIN LEI MD, Ot Z79.01 GENERAL SERVICE OFFICER (CURRENT) USE OF ANTICOAGULANT 12/25/2017 HOSSEIN LEI MD, Ot Z79.4 USP (CURRENT) USE OF INSULIN 12/25/2017 HOSSEIN LEI MD Ot Z79.82 GENERAL SERVICE OFFICER (CURRENT) USE OF ASPIRIN 12/25/2017 HOSSEIN LEI MD, Ot Z87.448 PERSONAL HISTORY OF OTHER DISEASES OF [place] 12/27/2017 DANIEL WEINSTEIN MD Ot 276.1 HYPOSMOLALITY 12/27/2017 DANIEL WEINSTEIN MD Ot 276.8 HYPOPOTASSEMIA 12/27/2017 DANIEL WEINSTEIN MD Ot 287.5 THROMBOCYTOPENIA NOS 12/27/2017 TAMMIE REHMAN MD Ot 250.00 DIAB ANDREEA WO COMPL, TYPE II OR UNSPEC TY 12/27/2017 TAMMIE REHMAN MD Ot 272.4 HYPERLIPIDEMIA NEC/NOS 12/27/2017 TAMMIE REHMAN MD Ot 414.01 CORONARY ATHEROSCLEROSIS OF [place] CORON 12/27/2017 DANIEL WEINSTEIN MD Ot 782.3 EDEMA 12/27/2017 BRUNILDA BAKER Ot 272.4 HYPERLIPIDEMIA NEC/NOS 12/27/2017 BRUNILDA BAKER Ot 397.0 TRICUSPID VALVE DISEASE 12/27/2017 BRUNILDA BAKER Ot 401.9 HYPERTENSION NOS 12/27/2017 BRUNILDA BAKER Ot 414.00 CORON ATHEROSCLER NOS TYPE VESSEL, NATIV 12/27/2017 BRUNILDA BAKER Ot 424.0 MITRAL VALVE DISORDER 12/27/2017 BRUNILDA BAKER Ot 427.31 ATRIAL FIBRILLATION 12/27/2017 BRUNILDA BAKER Ot 780.2 SYNCOPE AND COLLAPSE 12/27/2017 BRUNILDA BAKER Ot 786.50 CHEST PAIN NOS 12/27/2017 BRUNILDA BAKER Ot 250.00 DIAB ANDREEA WO COMPL, TYPE II OR UNSPEC TY 12/27/2017 BRUNILDA BAKER Ot 272.4 HYPERLIPIDEMIA NEC/NOS 12/27/2017 BRUNILDA BAKER Ot 401.9 HYPERTENSION NOS 12/27/2017 BRUNILDA BAKER Ot 414.00 CORON ATHEROSCLER NOS TYPE VESSEL, NATIV 12/27/2017 BRUNILDA BAKER Ot 427.31 ATRIAL FIBRILLATION 12/27/2017 BRUNILDA BAKER Ot 780.2 SYNCOPE AND COLLAPSE 12/27/2017 BRUNILDA BAKER Ot 780.4 DIZZINESS AND GIDDINESS 12/27/2017 BRUNILDA BAKER Ot 786.50 CHEST PAIN NOS 12/27/2017 BRUNILDA BAKER Ot V58.67 LONG-TERM (CURRENT) USE OF INSULIN 12/27/2017 DANIEL WEINSTEIN MD Ot 959.7 LOWER LEG INJURY NOS 12/27/2017 DANIEL WEINSTEIN MD Ot E888.9 FALL NOS 12/27/2017 TAMMIE REHMAN MD Ot 414.00 CORON ATHEROSCLER NOS TYPE VESSEL, NATIV 12/27/2017 TAMMIE REHMAN MD Ot 427.31 ATRIAL FIBRILLATION 12/27/2017 TAMMIE REHMAN MD Ot 433.30 MULT BILTRAL ARTERY OCCLUSION WO CEREBRA 12/27/2017 TAMMIE REHMAN MD Ot V58.69 OT MED,LT,CURRENT USE 12/27/2017 BRUNILDA BAKER Ot E78.5 HYPERLIPIDEMIA, UNSPECIFIED 12/27/2017 Ot 250.02 DIAB ANDREEA WO COMPL, TYPE II OR UNSPEC TY 12/27/2017 Ot 401.9 HYPERTENSION NOS 12/27/2017 TAMMIE REHMAN MD Ot 272.4 HYPERLIPIDEMIA NEC/NOS 12/27/2017 TAMMIE REHMAN MD Ot 401.9 HYPERTENSION NOS 12/27/2017 TAMMIE REHMAN MD Ot 414.00 CORON ATHEROSCLER NOS TYPE VESSEL, NATIV 12/27/2017 TAMMIE REHMAN MD Ot 433.10 CAROTID ARTERY OCCLUSION W O CEREBRAL IN 12/27/2017 TAMMIE REHMAN MD Ot 786.50 CHEST PAIN NOS 12/27/2017 Ot 272.4 HYPERLIPIDEMIA NEC/NOS 12/27/2017 DESTINEE JOHNSON DO Ot 250.00 DIAB ANDREEA WO COMPL, TYPE II OR UNSPEC TY 12/27/2017 NAJMA DAHL, JONN Prieto Ot R06.00 DYSPNEA, UNSPECIFIED 12/27/2017 LACHO BROWER DO Christine Ot J30.9 ALLERGIC RHINITIS, UNSPECIFIED 12/27/[address] LACHO Christine Ot R05 COUGH 12/27/[address] LACHO King Ot R06.02 SHORTNESS OF BREATH 12/27/2017 GIANNAVANIA VACA, BRUNILDA K Ot E78.2 MIXED HYPERLIPIDEMIA 12/27/2017 HORTONJUAQUIN NOLA, BRUNILDA K Ot I10 ESSENTIAL (PRIMARY) HYPERTENSION 12/27/2017 HORTONJUAQUIN NOLA, BRUNILDA K Ot I25.10 ATHSCL HEART DISEASE OF [place] CORONARY 12/27/2017 TERRY PA, BRUNILDA K Ot I48.0 PAROXYSMAL ATRIAL FIBRILLATION 12/27/2017 HORTON-VANIA VACA, BRUNILDA K Ot I65.23 OCCLUSION AND STENOSIS OF BILATERAL [place] 12/27/2017 JOHNSON DO, DESTINEE L Ot E11.9 TYPE 2 DIABETES MELLITUS WITHOUT COMPLIC 12/27/2017 HORTON-VANIA VACA, BRUNILDA K Ot E78.2 MIXED HYPERLIPIDEMIA 12/27/2017 HORTONJUAQUIN NOLA, BRUNILDA K Ot I10 ESSENTIAL (PRIMARY) HYPERTENSION 12/27/2017 TERRY NOLA, BRUNILDA K Ot I25.10 ATHSCL HEART DISEASE OF [place] CORONARY 12/27/2017 HORTON-VANIA VACA, BRUNILDA K Ot I48.0 PAROXYSMAL ATRIAL FIBRILLATION 12/27/2017 HORTON-VANIA VACA, BRUNILDA K Ot I65.23 OCCLUSION AND STENOSIS OF BILATERAL [place] 12/27/2017 JOHNSON DO, DESTINEE L Ot R94.4 ABNORMAL RESULTS OF KIDNEY FUNCTION STUD 12/27/2017 HORTON-VANIA VACA BRUNILDA K Ot E11.9 TYPE 2 DIABETES MELLITUS WITHOUT COMPLIC 12/27/2017 HORTON-VANIA VACA, BRUNILDA K Ot E78.2 MIXED HYPERLIPIDEMIA 12/27/2017 HORTONJUAQUIN NOLA, BRUNILDA K Ot I10 ESSENTIAL (PRIMARY) HYPERTENSION 12/27/2017 HORTON-VANIA VACA, BRUNILDA K Ot I48.0 PAROXYSMAL ATRIAL FIBRILLATION 12/27/2017 HORTON-VANIA VACA, BRUNILDA K Ot I65.23 OCCLUSION AND STENOSIS OF BILATERAL [place] 12/27/2017 JOHNSON DO, DESTINEE L Ot E11.9 TYPE 2 DIABETES MELLITUS WITHOUT COMPLIC 12/27/2017 HORTONBRUNILDA ROUSE Ot E78.2 MIXED HYPERLIPIDEMIA 12/27/2017 BRUNILDA BAKER Ot I10 ESSENTIAL (PRIMARY) HYPERTENSION 12/27/2017 BRUNILDA BAKER Ot I25.10 ATHSCL HEART DISEASE OF [place] CORONARY 12/28/2017 HOSSEIN LEI MD Ot E11.59 TYPE 2 DIABETES MELLITUS WITH OTH CIRCUL 12/28/2017 HOSSEIN LEI MD, Ot H53.8 OTHER VISUAL DISTURBANCES 12/28/2017 HOSSEIN LEI MD, Ot I10 ESSENTIAL (PRIMARY) HYPERTENSION 12/28/2017 HOSSEIN LEI MD Ot I48.91 UNSPECIFIED ATRIAL FIBRILLATION 12/28/2017 HOSSEIN LEI MD, Ot I73.9 PERIPHERAL VASCULAR DISEASE, UNSPECIFIED 12/28/2017 HOSSEIN LEI MD, Ot Z79.01 GENERAL SERVICE OFFICER (CURRENT) USE OF ANTICOAGULANT 12/28/2017 HOSSEIN LEI MD, Ot Z79.4 GENERAL SERVICE OFFICER (CURRENT) USE OF INSULIN 12/28/2017 HOSSEIN LEI MD, Ot Z79.82 USP (CURRENT) USE OF ASPIRIN 12/28/2017 HOSSEIN LEI MD, Ot Z82.49 FAMILY HX OF ISCHEM HEART DIS AND OTH DI 12/28/2017 HOSSEIN LEI MD Ot Z95.5 PRESENCE OF CORONARY ANGIOPLASTY IMPLANT 01/22/2018 JONN YAO MD Ot R53.1 WEAKNESS 01/22/2018 JONN YAO MD Ot R53.81 OTHER MALAISE 01/22/2018 JONN YAO MD Ot R53.1 WEAKNESS 01/22/2018 JONN YAO MD Ot R53.81 OTHER MALAISE 02/05/2018 TAMMIE REHMAN MD Ot E78.5 HYPERLIPIDEMIA, UNSPECIFIED 02/05/2018 TAMMIE REHMAN MD, Ot I10 ESSENTIAL (PRIMARY) HYPERTENSION 02/05/2018 TAMMIE REHMAN MD Ot I25.10 ATHSCL HEART DISEASE OF [place] CORONARY 02/05/2018 TAMMIE REHMAN MD Ot I48.0 PAROXYSMAL ATRIAL FIBRILLATION 02/05/2018 TAMMIE REHMAN MD Ot R06.02 SHORTNESS OF BREATH 02/05/2018 TAMMIE REHMAN MD, Ot R07.9 CHEST PAIN, UNSPECIFIED 02/05/2018 TAMMIE REHMAN MD Ot R55 SYNCOPE AND COLLAPSE 02/21/2018 TAMMIE REHMAN MD, Ot E78.5 HYPERLIPIDEMIA, UNSPECIFIED 02/21/2018 TAMMIE REHMAN MD Ot I10 ESSENTIAL (PRIMARY) HYPERTENSION 02/21/2018 TAMMIE REHMAN MD Ot I25.10 ATHSCL HEART DISEASE OF [place] CORONARY 02/21/2018 TAMMIE REHMAN MD, Ot I48.0 PAROXYSMAL ATRIAL FIBRILLATION 02/21/2018 TAMMIE REHMAN MD, Ot R06.02 SHORTNESS OF BREATH 02/21/2018 TAMMIE REHMAN MD, Ot R07.9 CHEST PAIN, UNSPECIFIED 02/21/2018 TAMMIE REHMAN MD, Ot R55 SYNCOPE AND COLLAPSE Procedures Code Description Performed By Performed On [...] culture - 05/26/17 08:50 Bacterial urine culture [id number] NRG COLONY COUNT 10,000/ML - 100,000/ML NRG [...] measurement by glucometer (mass/volume) 114 mg/dL 70-110 Capillary blood glucose measurement by glucometer (mass/volume) - 12/22/17 16: 51 Capillary blood glucose measurement by glucometer (mass/volume) 115 mg/dL 70-110 Encounters ACCT No. Visit Date/Time Discharge Status Pt. Type Provider Facility Loc./Unit Complaint [id number] 02/22/2018 12:59:00 02/22/2018 23:59:59 CLS Outpatient JONN YAO MD [facility] REHAB WEAKNESS, GENERALIZED MALAISE [id number] 02/01/2018 08:35:00 02/01/2018 23:59:59 CLS Outpatient ORI DAHL, TAMMIE Landa [facility] LAB I25.10,I65.23,I10 [id number] 12/22/2017 16:48:00 12/22/2017 18:02:00 DIS Emergency DO DAHL, HOSSEIN Ga [facility] ER VISION ISSUES/ WEAKNESS [id number] 12/19/2017 15:40:00 12/19/2017 20:10:00 DIS Emergency DO DAHL, HOSSEIN Ga [facility] ER STROKE SYMPTOMS [id number] 12/18/2017 04:15:00 12/18/2017 07:10:00 DIS Emergency SABINA DAHL, IVONNE Landa [facility] ER HEART ISSUES [id number] 12/13/2017 01:50:00 12/14/2017 10:35:00 DIS Inpatient JONN YAO MD [facility] 4TH TIA VS CVA [id number] 08/22/2017 14:37:00 08/29/2017 11:30:00 DIS Inpatient OXANA DAHL, KACIE Fan [facility] IRF DEBILITY [id number] 08/18/2017 10:00:00 08/18/2017 23:59:59 CLS Preadmit JONN YAO MD [facility] DSME TYPE 2 DIABETES [id number] 08/04/2017 10:35:00 08/04/2017 23:59:59 CLS Outpatient BRUNILDA BAKER [facility] LAB I25.10,I10, E78.2 [id number] 07/27/2017 14:17:00 07/27/2017 15:15:00 DIS Outpatient JONN YAO MD [facility] REHAB GAIT INSTABILITY [id number] 05/26/2017 07:56:00 05/26/2017 10:40:00 DIS Emergency SELMA RUIZ MD [facility] ER THROAT PAIN/INCREASE BP [id number] 11/15/2016 10:25:00 11/15/2016 23:59:59 CLS Outpatient DESTINEE JOHNSON DO [facility] LAB DIABETES MELLITUS [id number] 08/16/2016 22:40:00 08/17/2016 17:55:00 DIS Inpatient JONN YAO MD [facility] 4TH HYPERTENSION, HYPERGLYCEMIC [id number] 07/15/2016 08:51:00 07/15/2016 23:59:59 CLS Outpatient BRUNILDA BAKER [facility] LAB CAD,CAROTID ARTERY STENOSIS [id number] 02/11/2016 09:50:00 02/11/2016 23:59:59 CLS Outpatient DESTINEE JOHNSON DO [facility] LAB ABNORMAL KIDNEY FUNCTION [id number] 01/25/2016 07:56:00 01/25/2016 23:59:59 CLS Outpatient BRUNILDA BAKER [facility] CARD CAD,HTN,HLP [id number] 01/20/2016 08:33:00 01/20/2016 23:59:59 CLS Outpatient BRUNILDA BAKER [facility] CARD CAD HTN HLP [id number] 01/09/2016 07:53:00 01/09/2016 23:59:59 CLS Outpatient DESTINEE JOHNSON DO [facility] LAB DIABETES MELLITUS [id number] 10/21/2015 11:30:00 10/21/2015 23:59:59 CLS Outpatient LACHO BROWER DO [facility] RT SOB,DYSPNEA [id number] 08/20/2015 10:17:00 08/20/2015 23:59:59 CLS Outpatient BRUNILDA BAKER [facility] LAB HLP [id number] 07/22/2015 09:21:00 07/22/2015 23:59:59 CLS Outpatient JONN YAO MD [facility] RAD DYSPNEA [id number] 04/30/2015 16:27:00 04/30/2015 19:31:00 DIS Emergency SELMA RUIZ MD [facility] ER CP [id number] 04/23/2015 08:44:00 04/23/2015 23:59:59 CLS Outpatient DESTINEE JOHNSON DO [facility] LAB DIABETES MELLITUS, TYPE II [id number] 08/12/2014 08:32:00 08/12/2014 23:59:59 CLS Outpatient TAMMIE RHEMAN MD [facility] LAB CAD,HTN,HYPERLIPADEMA [id number] 04/07/2014 18:00:00 07/03/2014 00:01:00 DIS Outpatient DANIEL WEINSTEIN MD [facility] DSME DM 2 [id number] 06/16/2014 11:42:00 06/16/2014 23:59:59 CLS Outpatient TAMMIE REHMAN MD [facility] RAD NAGI [id number] 05/14/2014 01:50:00 05/15/2014 16:50:00 DIS Inpatient TAMMIE REHMAN MD [facility] CSD A-FIB RVR - RESOLVED, CHEST PAIN-RESOLVED [id number] 05/10/2014 04:01:00 05/10/2014 23:59:59 CLS Inpatient TAMMIE REHMAN MD [facility] CSD A-FIB W/RAPID VENTRICULAR RESPONSE,HYPERGLYCEMIA [id number] 01/15/2014 14:52:00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
[2018-03-03] MEDS ORDERED: NS W/KCL 20 MEQ/L 1,000 ML IV ONE (03:17)
[2018-03-03] MEDS ORDERED: LORazepam INJ 2 MG/ML (ATIVAN) VIAL IV PRN (03:30)
[2018-03-03] MEDS ORDERED: NS W/KCL 20 MEQ/L 1,000 ML IV SCH (03:30)
[2018-03-03 04:09] LABS: BASOPHILS % (AUTO) 0 % (0-10); EOSINOPHILS # (AUTO) 0.1 10^3/uL (0.0-0.3); EOSINOPHILS % (AUTO) 1 % (0-10); LYMPHOCYTES # (AUTO) 2.1 X 10^3 (1.0-4.0); LYMPHOCYTES % (AUTO) 31 % (12-44); MEAN CORPUSCULAR HGB CONC 34 G/DL (32-36); MEAN CORPUSCULAR VOLUME 87 FL (80-99); MEAN PLATELET VOLUME 11.6 FL (7.4-10.4); MONOCYTES # (AUTO) 0.5 X 10^3 (0.0-1.0); MONOCYTES % (AUTO) 7 % (0-12); NEUTROPHILS # (AUTO) 4.1 X 10^3 (1.8-7.8); NEUTROPHILS % (AUTO) 61 % (42-75); RED CELL DISTRIBUTION WIDTH 13.8 % (10.0-14.5)
[2018-03-03 04:10] LABS: WHITE BLOOD COUNT 7.5 10^3/uL (4.3-11.0)
[2018-03-03 04:11] LABS: HEMATOCRIT 39 % (35-52); HEMOGLOBIN 13.3 G/DL (11.5-16.0); MEAN CORPUSCULAR HEMOGLOBIN 29 PG (25-34); PLATELET COUNT 261 10^3/uL (130-400); RED BLOOD COUNT 4.51 10^6/uL (4.35-5.85)
[2018-03-03 04:21] LABS: ALBUMIN 3.4 GM/DL (3.2-4.5); BILIRUBIN,TOTAL 0.3 MG/DL (0.1-1.0); CALCIUM 9.6 MG/DL (8.5-10.1); CREATININE SERUM 1.53 MG/DL (0.60-1.30); POTASSIUM 4.4 MMOL/L (3.6-5.0); TOTAL PROTEIN 6.4 GM/DL (6.4-8.2)
[2018-03-03] MEDS ORDERED: 1/2 NS IV SOLUTION 1,000 ML IV ONE (05:23)
[2018-03-03] MEDS ORDERED: inSUlin (REGULAR) HUMAN 1 UNIT/0.01 ML (CHARGE PER UNIT) ONE ×2 (05:23→05:28)
[2018-03-03] MEDS ORDERED: NORMAL SALINE 250 ML ONE (05:26)
[2018-03-03] MEDS ORDERED: inSUlin REGULAR TPN/DRIP 250 UNITS/NS 250 ML IV SCH ×2 (05:45)
[2018-03-03] MEDS ORDERED: inSUlin (REGULAR) HUMAN 1 UNIT/0.01 ML (CHARGE PER UNIT) SC ONE (05:45)
[2018-03-03] MEDS ORDERED: inSUlin ASPART (NovoLOG) 1 UNIT/0.01 ML (CHARGE PER UNIT) SC SCH (06:00)
[2018-03-03] MEDS ORDERED: NS IV 1000 ML 1,000 ML IV ONE (06:03)
[2018-03-03] MEDS: 1/2 NS W/KCL 20 MEQ/L 1,000 ML IV ONE ×2 (06:10→06:14)
[2018-03-03] MEDS: 1/2 NS IV SOLUTION 1,000 ML IV SCH ×5 (06:13→22:19)
[2018-03-03] MEDS ORDERED: inSUlin REGULAR TPN/DRIP ONLY 250 UNITS in NORMAL SALINE 250 ML IV SCH (06:15)
[2018-03-03] MEDS ORDERED: D5 1/2 NS 1000 ML IV SOLUTION 1,000 ML IV SCH (06:15)
--- NOTE | 2018-03-03 06:56 | Diagnostic Imaging Report ---
Procedure: CT head without contrast. Technique: Multiple contiguous axial images were obtained through the brain without the use of intravenous contrast. Indication: Hyperglycemia, altered metal status. Comparison: 12/19/2017. Discussion: No significant interval change. Diffuse brain volume loss is again noted, stable and likely age related. White matter hypoattenuation is nonspecific though not greater than expected for age related chronic small vessel ischemic disease. Chronic appearing lacunar infarct within the right basal ganglia stable. No acute intracranial hemorrhage, mass, midline shift, or hydrocephalus. The orbits, sinuses, mastoid air cells, and calvarium are unremarkable. Impression: 1. Stable senescent changes as described. No acute intracranial abnormality identified. 2. Agree with preliminary report. Dictated by: Dictated on workstation # [id number]
[2018-03-03] MEDS: 1/2 NS W/KCL 20 MEQ/L 1,000 ML IV SCH ×4 (07:00→20:33)
[2018-03-03] MEDS ORDERED: D5 1/2 NS W/KCL 20 MEQ/L 1,000 ML IV ONE (07:03)
[2018-03-03 07:27] LABS: CALCIUM 9.3 MG/DL (8.5-10.1); CREATININE SERUM 1.28 MG/DL (0.60-1.30); POTASSIUM 4.8 MMOL/L (3.6-5.0)
--- NOTE | 2018-03-03 07:39 | Diagnostic Imaging Report ---
Indication: Hyperglycemia, altered mental status. Discussion: Single portable upright view of the chest was obtained, comparison 12/19/2017. Borderline cardiomegaly is stable. Bilateral mixed interstitial and alveolar opacities are slightly increased in the prior exam which could be seen with mild pulmonary edema or atypical infection. No pleural fluid or pneumothorax. No osseous abnormality. Postoperative changes are again noted in the left upper quadrant. Impression: 1. Mild cardiomegaly with new infiltrates, favor pulmonary edema over atypical infection. Dictated by: Dictated on workstation # [id number]
[2018-03-03] MEDS: D5 1/2 NS W/KCL 20 MEQ/L 1,000 ML IV SCH ×4 (08:26→20:33)
[2018-03-03] MEDS: DRONEDARONE TABLET 400 MG TABLET PO SCH ×3 (09:00→21:46)
[2018-03-03] MEDS: LOSARTAN 100 MG (COZAAR) TABLET PO SCH (09:00)
[2018-03-03] MEDS: amLODIPine 2.5MG (NORVASC) TAB PO SCH (09:00)
[2018-03-03] MEDS: APIXABAN 2.5 MG (ELIQUIS) TABLET PO SCH ×2 (09:00→20:48)
--- NOTE | 2018-03-03 11:22 | History & Physical-Hospitalist ---
History of Present Illness HPI/Chief Complaint Mrs. Cazares is an 44-edtd-mbgtaaku female with long-standing brittle poorly controlled diabetes mellituswho was brought in by her . Noted altered mental status. She been a little more lethargic for the past 24 hours that she was quite confused and difficult to arouse promptinghim to bring her to the emergency room. She was noted to have a blood sugarof 700 with only mild decrease in CO2 there is no evidence for ketones on her breath or 2 small respirations. She was started on IV fluids as she was dehydrated. Her ER stay was complicated by generalized seizure for which she received 1 mg of lorazepamwith no recurrence. This morning as she is still somnolentbut appears to be in no acute distress. History was taken from her and daughter. They had not noted any other abnormality should not been complaining about any respiratory or urinary tract symptoms other than polyuria Date Seen 03/03/18 Time Seen by Provider: 07:30 Attending Physician Semaj Tucker MD PCP Jonn Sow MD Referring Physician Date of Admission Mar 03, 2018 at 01:49 Home Medications & Allergies Home Medications Reviewed patient Home Medication Reconciliation performed by pharmacy medication reconciliations water and fire technician and/or nursing. Patients Allergies have been reviewed. Allergies Allergies Coded Allergies No Known Drug Allergies (Unverified11/03/09) Past Dojgddp-Vlwxiq-Fqyrqu Hx Past Med/Social Hx: Reviewed and Corrections made Patient Social History Alcohol Use: Denies Use Number of Drinks Today: DD Alcohol Beverage of Choice: Rum Recreational Drug Use: No Smoking Status: Never a Smoker 2nd Hand Smoke Exposure: No Physical Abuse Screen: No Sexual Abuse: No Recent Foreign Travel: No Contact w/other who traveled: No Recent Hopitalizations: Yes (ED VISITS FOR BLOOD SUGAR PROB) Recent Infectious Disease Expo: No Immunizations Up To Date Tetanus Booster (TDap): Unknown Pediatric: No Date of Pneumonia Vaccine: Jun 18, 2017 Date of Influenza Vaccine: Aug 08, 2017 Seasonal Allergies Seasonal Allergies: No Past Medical History Currently Using CPAP: No Currently Using BIPAP: No Cardiac: Atrial Fibrillation, Heart Attack, Hypertension, Peripheral Vascular Neurological: Seizure Disorder (Seizure times one), Stroke Reproductive: No Sexually Transmitted Disease: No HIV/AIDS: No Menopausal Genitourinary: Renal Failure Musculoskeletal: Arthritis Endocrine: Diabetes, Insulin dep HEENT: Cataract Hearing Impairment: Hard of Hearing, Bilateral Hearing Aide History of Blood Disorders: No Family History Reviewed Nursing Family Hx Alzheimer's disease 19 MOTHER, Arthritis 19 FATHER, 19 MOTHER, G8 BROTHER, G8 BROTHER, G8 BROTHER G8 SISTER G8 SISTER Cardiovascular disease 19 MOTHER, G8 BROTHER, Completed stroke 19 MOTHER, G8 SISTER Hypercholesterolemia 19 FATHER, G8 BROTHER, Hypertension 19 MOTHER, Myocardial infarction 19 FATHER, G8 BROTHER, Heart Disease, Diabetes, Hypertension, Stroke Review of Systems ROS-Unable to Obtain: ee history of present illness obtained from family members. Constitutional: see HPI Physical Exam Physical Exam Vital Signs Vital Signs - First Documented 03/02/18 22:25 Temp 97.6 Pulse 80 Resp 20 B/P (MAP) 219/96 (137) Pulse Ox 98 O2 Delivery Room Air Capillary Refill : Less Than 3 Seconds General Appearance: No Apparent Distress, Chronically ill Neck: Normal Inspection Respiratory: Chest Non Tender, Lungs Clear, Normal Breath Sounds, No Accessory Muscle Use, No Respiratory Distress Cardiovascular: Regular Rate, Rhythm, No Edema, No Gallop, No JVD, No Murmur, Normal Peripheral Pulses Gastrointestinal: Normal Bowel Sounds, No Organomegaly, No Pulsatile Mass, Non Tender, Soft Extremity: Normal Capillary Refill, Normal Inspection, Normal Range of Motion, Non Tender, No Calf Tenderness, No Pedal Edema Neurologic/Psychiatric: Other (somnolent) Skin: Warm/Dry, Pallor Results Results/Procedures Labs Laboratory Tests 03/02/18 22:30 03/03/18 03:27 03/03/18 07:00 Patient resulted labs reviewed. Assessment/Plan Admission Diagnosis A/P 1. Altered mental status secondary to combination of hyperglycemia dehydration and post ictal state we'll continue insulin drip and IV fluidswith resumption of oral meds and the patient is more alert and can demonstrate the ability to swallow without coughing or choking. 2. Long history of poorly controlled diabetes mellitus presumably type I without likely ketoacidosis continue insulin drip. 3. Reported history of CVAand a past isolated seizure several months ago with recurrence likely aggravated by number 1. I do not feel the patient isget a candidate for antiseizure medicine considering this is likely aggravated by number 1 continue to monitor seizure precautions. 4. Acute kidney injury secondary to dehydration from number 1. Continue IV fluids. . Warned staff and family that she is high risk for agitated behavior when she does wake up. A CT head done in the emergency room revealed no acute pathologyor old CT evidence for CVA. Admission Status: Inpatient Order (span 2 midnights) Reason for Inpatient Admission: as per admission diagnosis Assessment and Plan as per above Critical Care Critically Ill Patient Clinical Quality Measures DVT/VTE Risk/Contraindication: Risk Factor Score Per Nursin RFS Level Per Nursing on Admit: 2=Moderate Copy Copies To 1: JONN SOW MD, MARK D MD Mar 03, 2018 11:22
[2018-03-03 12:47] LABS: CALCIUM 8.7 MG/DL (8.5-10.1); CREATININE SERUM 0.92 MG/DL (0.60-1.30); POTASSIUM 3.9 MMOL/L (3.6-5.0)
[2018-03-03 20:26] LABS: CALCIUM 8.6 MG/DL (8.5-10.1); CREATININE SERUM 0.9 MG/DL (0.60-1.30)
[2018-03-03 20:28] LABS: POTASSIUM 4.5 MMOL/L (3.6-5.0)
[2018-03-03] MEDS ORDERED: DEXTROSE 10% IV SOLUTION 1,000 ML IV ONE (20:40)
[2018-03-03] MEDS ORDERED: NS IV 1000 ML 1,000 ML ONE (23:15)
[2018-03-03] MEDS: LABETALOL HCL 20 MG/4 ML VIAL IV PRN (23:22)
[2018-03-04] VITALS (25 sets, daily range): BP systolic 111–193; BP diastolic 37–101
[2018-03-04] MEDS: inSUlin DETERMIR 1 UNIT/0.01 ML (LEVEMIR) CHARGE PER UNIT SQ SCH ×2 (00:08→20:55)
[2018-03-04] MEDS: NS IV 1000 ML 1,000 ML IV SCH ×4 (00:08→23:11)
[2018-03-04] MEDS: inSUlin ASPART (NovoLOG) 1 UNIT/0.01 ML (CHARGE PER UNIT) SC SCH ×7 (00:08→20:55)
[2018-03-04 04:23] LABS: BASOPHILS % (AUTO) 0 % (0-10); EOSINOPHILS # (AUTO) 0.4 10^3/uL (0.0-0.3); EOSINOPHILS % (AUTO) 6 % (0-10); HEMATOCRIT 37 % (35-52); HEMOGLOBIN 12.3 G/DL (11.5-16.0); LYMPHOCYTES # (AUTO) 3.4 X 10^3 (1.0-4.0); LYMPHOCYTES % (AUTO) 47 % (12-44); MEAN CORPUSCULAR HEMOGLOBIN 29 PG (25-34); MEAN CORPUSCULAR HGB CONC 33 G/DL (32-36); MEAN CORPUSCULAR VOLUME 88 FL (80-99); MEAN PLATELET VOLUME 11.4 FL (7.4-10.4); MONOCYTES # (AUTO) 0.5 X 10^3 (0.0-1.0); MONOCYTES % (AUTO) 7 % (0-12); NEUTROPHILS % (AUTO) 40 % (42-75); PLATELET COUNT 307 10^3/uL (130-400); RED BLOOD COUNT 4.25 10^6/uL (4.35-5.85); RED CELL DISTRIBUTION WIDTH 14.4 % (10.0-14.5); WHITE BLOOD COUNT 7.4 10^3/uL (4.3-11.0)
[2018-03-04 04:49] LABS: BUN/CREATININE RATIO 13; CALCIUM 8.8 MG/DL (8.5-10.1); CARBON DIOXIDE 16 MMOL/L (21-32); CHLORIDE 117 MMOL/L (98-107); CREATININE SERUM 0.85 MG/DL (0.60-1.30); GFR ESTIMATED > 60; GLUCOSE 110 MG/DL (70-105); MAGNESIUM 1.3 MG/DL (1.8-2.4); PHOSPHORUS 2.5 MG/DL (2.3-4.7); POTASSIUM 4.3 MMOL/L (3.6-5.0); SODIUM 140 MMOL/L (135-145)
[2018-03-04] MEDS: MAGNESIUM 1 GM/100 ML IVPB 100 ML IV SCH ×5 (05:10→09:48)
[2018-03-04] MEDS: POTASSIUM CL 10MEQ/50ML IVPB 50 ML IV SCH (05:10)
[2018-03-04] MEDS: KCL 20 MEQ TAB (K-DUR) PO SCH (05:11)
--- NOTE | 2018-03-04 07:23 | Diagnostic Imaging Report ---
Indication: Dyspnea. Discussion: Single portable upright view of the chest was obtained, comparison 03/02/2018. Cardiomegaly appears slightly decreased. Improved aeration of the lungs with no residual infiltrate identified within the right lung. Small amount of infiltrate remains within the lingula. No pleural fluid or pneumothorax. Impression: 1. Improved aeration of the lungs with residual interstitial infiltrate within the lingula. Dictated by: Dictated on workstation # [id number]
[2018-03-04] MEDS: DRONEDARONE TABLET 400 MG TABLET PO SCH ×2 (09:58→20:55)
[2018-03-04] MEDS: LOSARTAN 100 MG (COZAAR) TABLET PO SCH (09:58)
[2018-03-04] MEDS: amLODIPine 2.5MG (NORVASC) TAB PO SCH (09:58)
[2018-03-04] MEDS: APIXABAN 2.5 MG (ELIQUIS) TABLET PO SCH ×2 (09:58→20:55)
[2018-03-04] MEDS ORDERED: inSUlin ASPART (NovoLOG) 1 UNIT/0.01 ML (CHARGE PER UNIT) SC NR (11:00)
--- NOTE | 2018-03-04 13:10 | Progress Note-Hospitalist ---
Subjective HPI/CC On Admission Date Seen by Provider: Mar 04, 2018 Time Seen by Provider: 08:45 Mrs. Cazares is an 42-tdkj-axdlpfmq female with long-standing brittle poorly controlled diabetes mellituswho was brought in by her . Noted altered mental status. She been a little more lethargic for the past 24 hours that she was quite confused and difficult to arouse promptinghim to bring her to the emergency room. She was noted to have a blood sugarof 700 with only mild decrease in CO2 there is no evidence for ketones on her breath or 2 small respirations. She was started on IV fluids as she was dehydrated. Her ER stay was complicated by generalized seizure for which she received 1 mg of lorazepamwith no recurrence. This morning as she is still somnolentbut appears to be in no acute distress. History was taken from her and daughter. They had not noted any other abnormality should not been complaining about any respiratory or urinary tract symptoms other than polyuria Subjective/Events-last exam Patient was resting comfortably this morning. She is easily arousable and oriented to person and place. She did not recognize me and when I ask her what my profession was wearing a physician's lab coats and stethoscope identified me as a nurse. She was pleasant and didn't appear to answer questions appropriately. She denied pain stating that she was a little bit hungry without nausea. Family heard the bedside and either family nor staff of noted any evidence for seizure activity. There is been no reported agitated behavior. Objective Exam Vital Signs Vital Signs Date Time Temp Pulse Resp B/P (MAP) Pulse Ox O2 Delivery O2 Flow Rate FiO2 03/04/18 11:03 Room Air 03/04/18 10:00 61 20 184/64 (104) 94 03/04/18 07:00 98.0 Capillary Refill : Less Than 3 Seconds General Appearance: No Apparent Distress, WD/WN Neck: Normal Inspection, Non Tender Respiratory: Chest Non Tender, Lungs Clear, Normal Breath Sounds, No Accessory Muscle Use, No Respiratory Distress Cardiovascular: Regular Rate, Rhythm, No Edema, No Gallop, No JVD, No Murmur, Normal Peripheral Pulses Gastrointestinal: Normal Bowel Sounds, No Organomegaly, No Pulsatile Mass, Non Tender, Soft Extremity: Normal Inspection, Normal Range of Motion, Non Tender, No Calf Tenderness, No Pedal Edema Neurologic/Psychiatric: Alert, Other (Able to move all extremities with reasonable fine motor control. Speech is normal no evidence for inattention. Mild confusion see history of present illness) Results/Procedures Lab Laboratory Tests 03/03/18 20:02 03/04/18 04:06 Patient resulted labs reviewed. Assessment/Plan Assessment and Plan Assess & Plan/Chief Complaint A/P 1. Altered mental status secondary to combination of hyperglycemia dehydration and post ictal state improved suspect underlying mild dementia 2. Long history of poorly controlled diabetes mellitus presumably type I without likely ketoacidosis. Will advance diet and start scheduled bolus insulin therapy although it is significantly lower dose than her usual 18 units considering most recent blood sugars of in the low normal range.. 3. Reported history of CVA and a past isolated seizure several months ago with recurrence likely aggravated by number 1. Continue to monitor 4. Acute kidney injury secondary to dehydration from number 1 resolved patient back to baseline renal function. Continue IV fluids. 5. Hypomagnesemia IV replacement yesterday we will repeat BMP and magnesium in the morning. Critical Care Critical Care: Critically Ill Patient Clinical Quality Measures DVT/VTE Risk/Contraindication: Risk Factor Score Per Nursin RFS Level Per Nursing on Admit: 2=Moderate RENE MARQUIS MD Mar 04, 2018 13:10
[2018-03-04] MEDS ORDERED: inSUlin ASPART (NovoLOG) 1 UNIT/0.01 ML (CHARGE PER UNIT) SC SCH (16:00)
[2018-03-04] MEDS: LABETALOL HCL 20 MG/4 ML VIAL IV PRN ×2 (16:51→20:55)
[2018-03-05] VITALS (24 sets, daily range): BP systolic 107–190; BP diastolic 52–98
[2018-03-05 03:31] LABS: BASOPHILS % (AUTO) 0 % (0-10); EOSINOPHILS # (AUTO) 0.6 10^3/uL (0.0-0.3); EOSINOPHILS % (AUTO) 8 % (0-10); HEMATOCRIT 38 % (35-52); HEMOGLOBIN 12.7 G/DL (11.5-16.0); LYMPHOCYTES # (AUTO) 3.6 X 10^3 (1.0-4.0); LYMPHOCYTES % (AUTO) 47 % (12-44); MEAN CORPUSCULAR HEMOGLOBIN 30 PG (25-34); MEAN CORPUSCULAR HGB CONC 34 G/DL (32-36); MEAN CORPUSCULAR VOLUME 88 FL (80-99); MEAN PLATELET VOLUME 11.7 FL (7.4-10.4); MONOCYTES # (AUTO) 0.7 X 10^3 (0.0-1.0); MONOCYTES % (AUTO) 9 % (0-12); NEUTROPHILS # (AUTO) 2.8 X 10^3 (1.8-7.8); NEUTROPHILS % (AUTO) 36 % (42-75); PLATELET COUNT 307 10^3/uL (130-400); RED BLOOD COUNT 4.25 10^6/uL (4.35-5.85); RED CELL DISTRIBUTION WIDTH 14.5 % (10.0-14.5); WHITE BLOOD COUNT 7.7 10^3/uL (4.3-11.0)
[2018-03-05 03:53] LABS: CALCIUM 8.9 MG/DL (8.5-10.1); CREATININE SERUM 1.06 MG/DL (0.60-1.30); MAGNESIUM 2.2 MG/DL (1.8-2.4); PHOSPHORUS 2.7 MG/DL (2.3-4.7); POTASSIUM 4.2 MMOL/L (3.6-5.0)
[2018-03-05] MEDS: LABETALOL HCL 20 MG/4 ML VIAL IV PRN ×4 (03:58→21:54)
[2018-03-05] MEDS: inSUlin ASPART (NovoLOG) 1 UNIT/0.01 ML (CHARGE PER UNIT) SC SCH ×5 (03:59→17:08)
--- NOTE | 2018-03-05 05:21 | Pulmonary Consultation ---
History of Present Illness History of Present Illness Date of Consultation 03/05/18 05:16 Time Seen by Provider: 05:16 Date of Admission History of Present Illness 87yo with hx of poorly controlled DM presented to ED secondary to MS changes, and lethergic. Onset was 24hrs prior to admission. She was found to have a BS of 700 and dehydrated. She was given aggressive IVF. While in the ED she had a witnessed generalized seizure and was given Ativan . Pt is very RAMPART and it is difficult to obtain complete ROS. I am consulted for ICU management. Allergies and Home Medications Allergies Coded Allergies: No Known Drug Allergies (Unverified , 11/03/09) Home Medications Amlodipine Besylate 2.5 Mg Tablet, 2.5 MG PO DAILY, (Reported) LAST FILLED #30 10-17-17 Apixaban 2.5 Mg Tablet, 2.5 MG PO BID Prescribed by: JONN YAO on 12/14/17 09 Aspirin 81 Mg Tab.chew, 81 MG PO DAILY@0900 Prescribed by: JONN YAO on 12/14/17 0937 Atorvastatin Calcium 40 Mg Tablet, 40 MG PO HS, (Reported) LAST FILLED #30 10-17-17 Dronedarone HCl 400 Mg Tablet, 400 MG PO BID, (Reported) LAST FILLED #60 09-08-17 Furosemide 20 Mg Tablet, 20 MG PO DAILY PRN for SWELLING, (Reported) LAST FILLED #3 09-08-17 Insulin Glargine,Hum.rec.anlog 300 Unit/1 Ml Insuln.pen, 32 UNIT SQ HS, ( Reported) Insulin Lispro 100 Unit/1 Ml Insuln.pen, SQ UD, (Reported) USE 18 UNITS WITH MEALS PLUS CORRECTION Losartan Potassium 50 Mg Tablet, 50 MG PO DAILY, (Reported) Pantoprazole Sodium 20 Mg Tablet.dr, 20 MG PO DAILY, (Reported) LAST FILLED #30 09-21-17 Potassium Chloride 10 Meq Tablet.er, 10 MEQ PO DAILY PRN for WITH FUROSEMIDE, ( Reported) LAST FILLED #3 09-08-17 Past Nusrjcu-Npqufd-Xuhiwx Hx Past Med/Social Hx: Reviewed and Corrections made Patient Social History Alcohol Use: Denies Use Number of Drinks Today: DD Alcohol Beverage of Choice: Rum Recreational Drug Use: No Smoking Status: Never a Smoker 2nd Hand Smoke Exposure: No Recent Foreign Travel: No Contact w/Someone Who Travel: No Recent Infectious Disease Expo: No Recent Hopitalizations: Yes (ED VISITS FOR BLOOD SUGAR PROB) Immunizations Up To Date Tetanus Booster (TDap): Unknown PED Vaccines UTD: No Date of Pneumonia Vaccine: Jun 18, 2017 Date of Influenza Vaccine: Aug 08, 2017 Seasonal Allergies Seasonal Allergies: No Past Medical History Surgeries: Yes (RIGHT FOOT SURGERY) Respiratory: No Currently Using CPAP: No Currently Using BIPAP: No Cardiac: Yes (STENTS, MONITOR PLACED BY DR. 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 Sexually Transmitted Disease: No HIV/AIDS: No Genitourinary: Yes ( KIDNEY DISEASE) Renal Failure Gastrointestinal: No Musculoskeletal: Yes Arthritis Endocrine: Yes Diabetes, Insulin dep HEENT: Yes Cataract Hearing Impairment: Hard of Hearing, Bilateral Hearing Aide Cancer: No Psychosocial: No Integumentary: No Blood Disorders: No Family Medical History Reviewed Nursing Family Hx Alzheimer's disease 19 MOTHER, Arthritis 19 FATHER, 19 MOTHER, G8 BROTHER, G8 BROTHER, G8 BROTHER G8 SISTER G8 SISTER Cardiovascular disease 19 MOTHER, G8 BROTHER, Completed stroke 19 MOTHER, G8 SISTER Hypercholesterolemia 19 FATHER, G8 BROTHER, Hypertension 19 MOTHER, Myocardial infarction 19 FATHER, G8 BROTHER, Heart Disease, Diabetes, Hypertension, Stroke Review of Systems Time Seen by Provider: 05:35 Exam Exam Vital Signs Date Time Temp Pulse Resp B/P (MAP) Pulse Ox O2 Delivery O2 Flow Rate FiO2 03/05/18 01:00 70 03/05/18 00:00 Room Air 03/05/18 00:00 71 17 155/85 (108) 93 Room Air 03/04/18 23:00 70 19 165/66 (99) 94 Room Air 03/04/18 22:00 82 17 192/79 (116) 99 Room Air 03/04/18 21:00 75 23 169/71 (103) 96 Room Air 03/04/18 20:00 97.8 67 19 193/70 (111) 99 Room Air 03/04/18 20:00 Room Air 03/04/18 19:00 80 30 174/83 (113) 99 Room Air 03/04/18 19:00 78 03/04/18 18:00 71 19 147/53 (84) 94 Room Air 03/04/18 17:00 62 22 130/52 (78) 96 Room Air 03/04/18 16:49 98.0 188/64 (105) 03/04/18 16:00 60 18 172/65 (100) 97 Room Air 03/04/18 15:30 Room Air 03/04/18 15:00 57 19 134/101 (112) 96 Room Air 03/04/18 14:00 62 24 174/65 (101) 93 Room Air 03/04/18 13:00 61 03/04/18 13:00 61 16 163/65 (97) 93 Room Air 03/04/18 12:00 65 20 142/55 (84) 93 Room Air 03/04/18 12:00 98.9 03/04/18 11:03 Room Air 03/04/18 11:00 60 31 143/76 (98) 96 Room Air 03/04/18 10:00 61 20 184/64 (104) 94 Room Air 03/04/18 09:00 62 11 168/56 (93) 97 Room Air 03/04/18 08:00 Room Air 03/04/18 08:00 62 17 123/39 (67) 95 Room Air 03/04/18 07:00 98.0 61 20 120/38 (65) 92 Room Air 03/04/18 07:00 62 03/04/18 06:00 58 30 131/45 (73) 97 Room Air I & O 03/05/18 07:00 Intake Total 1875 ml Output Total 950 ml Balance 925 ml General Appearance: No Apparent Distress, WD/WN Neck: Normal Inspection, Non Tender Respiratory: Chest Non Tender, Lungs Clear, Normal Breath Sounds, No Accessory Muscle Use, No Respiratory Distress Cardiovascular: Regular Rate, Rhythm, No Edema, No Gallop, No JVD, No Murmur, Normal Peripheral Pulses Capillary Refill: Less Than 3 Seconds Gastrointestinal: normal bowel sounds, non tender, soft Extremity: Normal Inspection, Normal Range of Motion, Non Tender, No Calf Tenderness, No Pedal Edema Neurologic/Psychiatric: Alert, Other (Able to move all extremities with reasonable fine motor control. Speech is normal no evidence for inattention. Mild confusion see history of present illness) Skin: Warm/Dry, Pallor Results Lab Laboratory Tests 6/16/18 07:00 03/03/18 12:20 03/03/18 20:02 03/04/18 04:06 03/05/18 03:10 Assessment/Plan Assessment/Plan Acute seizure -while in ED on Admission -monitor seizure precautions MOUNA secondary to dehydration -IVF Uncontrolled HTN -Continue to monitor closely Nonanion gapped Metabolic acidosis probably from MOUNA -Monitor -will give 2 amps of bicarb x 1. -may need to start PO bicarb if continues to be persistent -Check LA, No Ketones on admission. Will hold off on ABG for now. Metabolic encephalopathy with probable chronic dementia Very RAMPART Poorly controlled DM I HX of CVA Critical Care: Critically Ill Patient LACHO BROWER DO Mar 05, 2018 05:21
[2018-03-05] MEDS ORDERED: SODIUM BICARB 8.4% 50 MEQ/50 ML (ABBOTT) SYR IV ONE (05:30)
[2018-03-05] MEDS: POTASSIUM CL 10MEQ/50ML IVPB 50 ML IV SCH (05:36)
[2018-03-05] MEDS: KCL 20 MEQ TAB (K-DUR) PO SCH (05:36)
[2018-03-05] MEDS: MAGNESIUM 1 GM/100 ML IVPB 100 ML IV SCH (05:36)
--- NOTE | 2018-03-05 07:15 | Diagnostic Imaging Report ---
Clinical indication: Patient with dyspnea. Exam: Portable chest x-ray upright view. Comparison: Portable chest x-ray upright view dated 03/04/2018. Findings: Stable appearance of the chest x-ray with residual mild reticular patchy airspace changes within both lungs with left lung base affected the most. There is no definite pleural effusion or pneumothorax. Pulmonary vasculature and cardiac silhouette within normal limits. Cardiac loop recorder is seen overlying the left lung base region. The remainder of this exam shows no significant interval change compared to the prior study of comparison. Impression: Stable chest x-ray exam with residual mild airspace infiltrates involving both lungs with the left lung base affected the most. Dictated by: Dictated on workstation # [id number]
--- NOTE | 2018-03-05 08:20 | Progress Note ---
Subjective Date Seen by Provider: Mar 05, 2018 Time Seen by Provider: 08:15 Subjective/Events-last exam PT IS AN 87 Y/O FEMALE WHO IS WELL KNOWN TO ME FROM CLINIC. SHE HAS POORLY CONTROLLED DIABETES MELLITUS - INSULIN DEPENDENT. SHE RECENTLY HAD APPT WITH HER MACHINE MARKER WHO GOT HER A CONTINUOUS GLUCOSE MONITOR WHICH I PLACED IN MY OFFICE SEVERAL MONTHS AGO. THE PATIENT DOES NOT APPROPRIATELY CONTROL HER DIETARY INTAKE. SHE WAS BROUGHT TO THE HOSPITAL WITH LETHARGY AND WAS FOUND TO HAVE A BLOOD GLUCOSE OVER 700. SHE THEN HAD A SEIZURE WHILE IN THE EMERGENCY DEPARTMENT. TODAY SHE STATES THAT SHE FEELS... Objective Exam Last Set of Vital Signs Vital Signs Date Time Temp Pulse Resp B/P (MAP) Pulse Ox O2 Delivery O2 Flow Rate FiO2 03/05/18 06:00 80 28 155/80 (105) 100 Room Air 03/05/18 04:00 97.5 Capillary Refill : Less Than 3 Seconds I&O Intake and Output 03/05/18 00:00 Intake Total 1875 ml Output Total 1725 ml Balance 150 ml Intake Oral 475 ml IV Total 1400 ml Output Urine Total 1725 ml # Voids 3 # Urine Diapers 1 # Bowel Movements 2 Results Lab Laboratory Tests 03/04/18 08:16: Glucometer 116H 03/04/18 10:52: Glucometer 100 03/04/18 16:19: Glucometer 96 03/04/18 20:49: Glucometer 122H 03/05/18 02:12: Glucometer 225H 03/05/18 03:10: White Blood Count 7.7, Red Blood Count 4.25L, Hemoglobin 12.7, Hematocrit 38, Mean Corpuscular Volume 88, Mean Corpuscular Hemoglobin 30, Mean Corpuscular Hemoglobin Concent 34, Red Cell Distribution Width 14.5, Platelet Count 307, Mean Platelet Volume 11.7H, Neutrophils (%) (Auto) 36L, Lymphocytes (%) (Auto) 47H, Monocytes (%) (Auto) 9, Eosinophils (%) (Auto) 8, Basophils (%) (Auto) 0, Neutrophils # (Auto) 2.8, Lymphocytes # (Auto) 3.6, Monocytes # (Auto) 0.7, Eosinophils # (Auto) 0.6H, Basophils # (Auto) 0.0, Sodium Level 139, Potassium Level 4.2, Chloride Level 115H, Carbon Dioxide Level 16L, Anion Gap 8, Blood Urea Nitrogen 16, Creatinine 1.06, Estimat Glomerular Filtration Rate 49, BUN/ Creatinine Ratio 15, Glucose Level 223H, Calcium Level 8.9, Phosphorus Level 2.7 , Magnesium Level 2.2 03/05/18 05:51: Glucometer 71 Microbiology 03/03/18 MRSA Screen - Final, Complete MRSA not isolated Assessment/Plan Assessment/Plan Assess & Plan/Chief Complaint ALTERED MENTAL STATUS UNCONTROLLED DIABETES MELLITUS - INSULIN DEPENDENT HYPERTENSION ATRIAL FIBRILLATION RENAL INSUFFICIENCY DUE TO DEHYDRATION METABOLIC ACIDOSIS 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
[2018-03-05] MEDS: APIXABAN 2.5 MG (ELIQUIS) TABLET PO SCH ×2 (08:37→20:11)
[2018-03-05] MEDS: DRONEDARONE TABLET 400 MG TABLET PO SCH ×2 (08:37→20:11)
[2018-03-05] MEDS ORDERED: amLODIPine 5 MG (NORVASC) TAB PO SCH (09:00)
[2018-03-05] MEDS ORDERED: LOSA100T28 PO (09:18)
[2018-03-05] MEDS ORDERED: ASPI-999 PO (09:18)
[2018-03-05] MEDS ORDERED: APIX2.5T PO (09:18)
[2018-03-05] MEDS ORDERED: METO-387 PO (09:18)
[2018-03-05] MEDS: LOSARTAN 100 MG (COZAAR) TABLET PO SCH (09:19)
[2018-03-05] MEDS: NS IV 1000 ML 1,000 ML IV SCH ×2 (09:19→22:43)
[2018-03-05] MEDS: inSUlin ASPART (NovoLOG) 1 UNIT/0.01 ML (CHARGE PER UNIT) SC PRN ×2 (11:40→20:12)
[2018-03-05] MEDS: inSUlin DETERMIR 1 UNIT/0.01 ML (LEVEMIR) CHARGE PER UNIT SQ SCH (20:12)
[2018-03-06] VITALS (11 sets, daily range): BP systolic 113–194; BP diastolic 56–88
[2018-03-06 04:26] LABS: BASOPHILS % (AUTO) 0 % (0-10); EOSINOPHILS # (AUTO) 0.7 10^3/uL (0.0-0.3); EOSINOPHILS % (AUTO) 8 % (0-10); HEMATOCRIT 37 % (35-52); HEMOGLOBIN 12.1 G/DL (11.5-16.0); LYMPHOCYTES # (AUTO) 4.3 X 10^3 (1.0-4.0); LYMPHOCYTES % (AUTO) 54 % (12-44); MEAN CORPUSCULAR HEMOGLOBIN 29 PG (25-34); MEAN CORPUSCULAR HGB CONC 33 G/DL (32-36); MEAN CORPUSCULAR VOLUME 89 FL (80-99); MONOCYTES # (AUTO) 0.9 X 10^3 (0.0-1.0); MONOCYTES % (AUTO) 12 % (0-12); NEUTROPHILS % (AUTO) 25 % (42-75); PLATELET COUNT 288 10^3/uL (130-400); RED BLOOD COUNT 4.16 10^6/uL (4.35-5.85); RED CELL DISTRIBUTION WIDTH 14.9 % (10.0-14.5)
[2018-03-06] MEDS: LABETALOL HCL 20 MG/4 ML VIAL IV PRN (04:43)
[2018-03-06 04:51] LABS: CALCIUM 9.2 MG/DL (8.5-10.1); CREATININE SERUM 0.93 MG/DL (0.60-1.30); MAGNESIUM 1.7 MG/DL (1.8-2.4); PHOSPHORUS 3.5 MG/DL (2.3-4.7); POTASSIUM 3.9 MMOL/L (3.6-5.0)
[2018-03-06] MEDS: MAGNESIUM 1 GM/100 ML IVPB 100 ML IV SCH ×3 (04:58→07:35)
[2018-03-06] MEDS: POTASSIUM CL 10MEQ/50ML IVPB 50 ML IV SCH (04:58)
[2018-03-06] MEDS: KCL 20 MEQ TAB (K-DUR) PO SCH (04:58)
--- NOTE | 2018-03-06 06:09 | Pulmonary Progress Note ---
Subjective Time Seen by Provider: 06:15 Subjective/Events-last exam Pt is doing better. Her BP is still running high around 180's. She is only on RA and breathing well. Exam Exam Vital Signs Date Time Temp Pulse Resp B/P (MAP) Pulse Ox O2 Delivery O2 Flow Rate FiO2 03/06/18 04:00 Room Air 03/06/18 04:00 60 14 185/74 (111) 99 Room Air 03/06/18 03:14 97.6 Room Air 03/06/18 03:00 65 24 181/64 (103) 99 Room Air 03/06/18 02:00 58 16 170/71 (104) 93 Room Air 03/06/18 01:00 65 18 187/77 (113) 93 Room Air 03/06/18 01:00 70 03/06/18 00:00 69 22 173/66 (101) 96 Room Air 03/06/18 00:00 Room Air 03/05/18 23:00 65 19 186/65 (105) 96 Room Air 03/05/18 22:00 73 20 181/83 (115) 96 Room Air 03/05/18 21:00 57 22 189/69 (109) 98 Room Air 03/05/18 20:00 70 17 177/73 (107) 96 Room Air 03/05/18 20:00 98.4 Room Air 03/05/18 20:00 Room Air 03/05/18 19:00 65 16 175/55 (95) 97 Room Air 03/05/18 19:00 68 03/05/18 18:00 60 21 161/70 (100) 96 Room Air 03/05/18 17:00 67 39 142/72 (95) 97 Room Air 03/05/18 16:00 Room Air 03/05/18 16:00 59 22 127/59 (81) 94 Room Air 03/05/18 16:00 98.0 Room Air 03/05/18 15:00 58 14 143/73 (96) 97 Room Air 03/05/18 14:00 60 19 145/55 (85) 97 Room Air 03/05/18 13:00 64 11 109/75 (86) 90 Room Air 03/05/18 13:00 60 03/05/18 12:00 Room Air 03/05/18 12:00 97.0 Room Air 03/05/18 12:00 63 17 133/80 (97) 96 Room Air 03/05/18 11:00 71 25 159/56 (90) 97 Room Air 03/05/18 10:00 77 17 180/70 (106) 100 Room Air 03/05/18 09:00 68 21 179/72 (107) 95 Room Air 03/05/18 08:00 Room Air 03/05/18 08:00 70 26 140/52 (81) 97 Room Air 03/05/18 07:00 69 03/05/18 07:00 97.6 Room Air 03/05/18 07:00 68 23 190/66 (107) 97 Room Air I & O 03/06/18 07:00 Intake Total 1700 ml Output Total 1600 ml Balance 100 ml General Appearance: No Apparent Distress, WD/WN Neck: Normal Inspection, Non Tender Respiratory: Chest Non Tender, Lungs Clear, Normal Breath Sounds, No Accessory Muscle Use, No Respiratory Distress Cardiovascular: Regular Rate, Rhythm, No Edema, No Gallop, No JVD, No Murmur, Normal Peripheral Pulses Capillary Refill: Less Than 3 Seconds Gastrointestinal: normal bowel sounds, non tender, soft Extremity: Normal Inspection, Normal Range of Motion, Non Tender, No Calf Tenderness, No Pedal Edema Neurologic/Psychiatric: Alert, Oriented x3, Other (Able to move all extremities with reasonable fine motor control. Speech is normal no evidence for inattention. Mild confusion see history of present illness) Skin: Warm/Dry, Pallor Results Lab Laboratory Tests 03/05/18 03:10 03/06/18 03:20 Assessment/Plan Assessment/Plan Acute seizure -while in ED on Admission -monitor seizure precautions MOUNA secondary to dehydration -IVF Uncontrolled HTN- much improved -Continue to monitor closely -Increase Norvasc to 10mg and Metoprol to 50mg PO daily Nonanion gapped Metabolic acidosis probably from MOUNA -- improved -Monitor Metabolic encephalopathy with probable chronic dementia Very INAJA Poorly controlled DM I pt is doing better will transfer her to 4th floor with Tele Critical Care: Critically Ill Patient LACHO BROWER DO Mar 06, 2018 06:09
[2018-03-06] MEDS: inSUlin ASPART (NovoLOG) 1 UNIT/0.01 ML (CHARGE PER UNIT) SC SCH (07:36)
[2018-03-06] MEDS: LOSARTAN 100 MG (COZAAR) TABLET PO SCH (07:54)
[2018-03-06] MEDS: DRONEDARONE TABLET 400 MG TABLET PO SCH (07:55)
[2018-03-06] MEDS: APIXABAN 2.5 MG (ELIQUIS) TABLET PO SCH (07:55)
--- NOTE | 2018-03-06 08:15 | Diagnostic Imaging Report ---
INDICATION: Shortness of breath. COMPARISON: 03/05/2018. FINDINGS: Single view of the chest demonstrates cardiac enlargement with stable central vascular congestion. There is no pneumothorax or effusion. Osseous structures are stable. IMPRESSION: Unchanged aeration of the lungs. Dictated by: Dictated on workstation # [id number]
--- NOTE | 2018-03-06 08:54 | Discharge Summary ---
Diagnosis/Chief Complaint Date of Admission Mar 03, 2018 at 01:49 Date of Discharge Discharge Summary Discharge Physical Examination Allergies: Coded Allergies: No Known Drug Allergies (Unverified , 11/03/09) Vitals & I&Os Vital Signs Date Time Temp Pulse Resp B/P (MAP) Pulse Ox O2 Delivery O2 Flow Rate FiO2 03/06/18 07:45 Room Air 03/06/18 07:22 57 03/06/18 06:00 21 113/88 (96) 98 03/06/18 03:14 97.6 Hospital Course Pending Labs Laboratory Tests 03/06/18 03:20: White Blood Count 8.0, Red Blood Count 4.16, Hemoglobin 12.1, Hematocrit 37, Mean Corpuscular Volume 89, Mean Corpuscular Hemoglobin 29, Mean Corpuscular Hemoglobin Concent 33, Red Cell Distribution Width 14.9, Platelet Count 288, Mean Platelet Volume 12.0, Neutrophils (%) (Auto) 25, Lymphocytes (%) (Auto) 54 , Monocytes (%) (Auto) 12, Eosinophils (%) (Auto) 8, Basophils (%) (Auto) 0, Neutrophils # (Auto) 2.0, Lymphocytes # (Auto) 4.3, Monocytes # (Auto) 0.9, Eosinophils # (Auto) 0.7, Basophils # (Auto) 0.0, Sodium Level 141, Potassium Level 3.9, Chloride Level 112, Carbon Dioxide Level 21, Anion Gap 8, Blood Urea Nitrogen 15, Creatinine 0.93, Estimat Glomerular Filtration Rate 57, BUN/ Creatinine Ratio 16, Glucose Level 173, Calcium Level 9.2, Phosphorus Level 3.5 , Magnesium Level 1.7 Discharge Instructions to patient/family Please see electronic discharge instructions given to patient. Discharge Medications Reviewed and agree with Discharge Medication list on patient's Discharge Instruction sheet Clinical Quality Measures DVT/VTE Risk/Contraindication: Risk Factor Score Per Nursin RFS Level Per Nursing on Admit: 2=Moderate JONN YAO MD Mar 06, 2018 08:54
[2018-03-06] MEDS ORDERED: METO-370 PO (08:59)
[2018-03-06] MEDS ORDERED: INSU300I SQ (08:59)
[2018-03-06] MEDS ORDERED: amLODIPine 5 MG (NORVASC) TAB PO SCH (09:00)
[2018-03-06] MEDS ORDERED: hydrALAZINE (APESOLINE) 20 MG/ML VIAL IV SCH (12:00)
== END 2018-03-06 10:20 | disposition home or self-care (01) | DRG 683 ==
LOC: EDUNIT# 22:24 → ER 22:25 → ICU 03-03 01:49
PROVIDERS: ADMIT Internal Medicine; ATTEND Internal Medicine
DX: N17.9 Acute kidney failure, unspecified (principal); E10.65 Type 1 diabetes mellitus with hyperglycemia; E86.0 Dehydration; G40.909 Epilepsy, unspecified, not intractable, without status epilepticus; I16.1 Hypertensive emergency; E83.42 Hypomagnesemia; I25.2 Old myocardial infarction; E10.51 Type 1 diabetes mellitus with diabetic peripheral angiopathy without gangrene; Z66 Do not resuscitate; R35.8 Other polyuria; R20.2 Paresthesia of skin; I48.91 Unspecified atrial fibrillation; M19.91 Primary osteoarthritis, unspecified site; H91.93 Unspecified hearing loss, bilateral; Z95.5 Presence of coronary angioplasty implant and graft; Z79.4 Long term (current) use of insulin; Z79.01 Long term (current) use of anticoagulants; Z86.73 Personal history of transient ischemic attack (TIA), and cerebral infarction without residual deficits; Z97.4 Presence of external hearing-aid
CPT/HCPCS: 36415; 51702; 70450; 71045; 80048; 80053; 81000; 82962; 83735; 84100; 85025; 87081; 93005; 93041; 96361; 96372; 96374; 96375

== ENCOUNTER 2018-03-17 18:02 | Emergency (ER) | payer MEDICARE, OTHER ==
[~2018-03-17] VITALS: Ht 149.9 cm; Wt 56.7 kg
[~2018-03-17 18:02] MED LIST changes: +LOSA100T28 PO; +METO-370 PO
[2018-03-17 18:05] VITALS: BP 129/51
[2018-03-17] MEDS ORDERED: DEXTROSE 50% 50 ML (IMS) SYR ONE (18:19)
[2018-03-17] MEDS ORDERED: DEXTROSE 50% 50 ML (IMS) SYR IV ONE (18:30)
[2018-03-17 18:36] LABS: BASOPHILS % (AUTO) 0 % (0-10); EOSINOPHILS # (AUTO) 0.5 10^3/uL (0.0-0.3); EOSINOPHILS % (AUTO) 5 % (0-10); HEMATOCRIT 36 % (35-52); HEMOGLOBIN 11.6 G/DL (11.5-16.0); LYMPHOCYTES # (AUTO) 4.4 X 10^3 (1.0-4.0); LYMPHOCYTES % (AUTO) 47 % (12-44); MEAN CORPUSCULAR HEMOGLOBIN 30 PG (25-34); MEAN CORPUSCULAR HGB CONC 33 G/DL (32-36); MEAN CORPUSCULAR VOLUME 92 FL (80-99); MEAN PLATELET VOLUME 10.5 FL (7.4-10.4); MONOCYTES # (AUTO) 1.1 X 10^3 (0.0-1.0); MONOCYTES % (AUTO) 12 % (0-12); NEUTROPHILS # (AUTO) 3.4 X 10^3 (1.8-7.8); NEUTROPHILS % (AUTO) 36 % (42-75); PLATELET COUNT 402 10^3/uL (130-400); RED CELL DISTRIBUTION WIDTH 15.6 % (10.0-14.5); WHITE BLOOD COUNT 9.4 10^3/uL (4.3-11.0)
--- NOTE | 2018-03-17 18:38 | ED General ---
General Chief Complaint: Glucose Problems Stated Complaint: LOW BLOOD SUGAR Nursing Triage Note: C/O blood sugar at 1400 245 and she took 17u of humalog. Blood sugar at 1725 65 and has been dropping. C/O sweating. Nursing Sepsis Screen: No Definite Risk Source of Information: Patient Exam Limitations: No Limitations History of Present Illness Date Seen by Provider: Mar 17, 2018 Time Seen by Provider: 18:36 Initial Comments to ER by family with reports of hypoglycemia. At home it was checked and found to be 56 this evening. Started out this morning about 3 AM with 318 blood glucose. She took 17 units of NovoLog through she's not had any additional insulin that the daughter knows about since then. She is not on any long-acting insulin. She states that she feels a little weak and lightheaded. She was given half an amp of D50 on arrival to ER, IV access was established and she was given a meal tray. Labs will be obtained. Timing/Duration: 12-24 Hours Severity: Moderate Allergies and Home Medications Allergies Coded Allergies: No Known Drug Allergies (Unverified , 03/17/18) Home Medications Amlodipine Besylate 2.5 Mg Tablet, 2.5 MG PO DAILY, (Reported) Apixaban 2.5 Mg Tablet, 2.5 MG PO BID, (Reported) Aspirin 81 Mg Tab.chew, 81 MG PO DAILY, (Reported) Atorvastatin Calcium 40 Mg Tablet, 40 MG PO HS, (Reported) Dronedarone HCl 400 Mg Tablet, 400 MG PO BID, (Reported) Furosemide 20 Mg Tablet, 20 MG PO DAILY PRN for SWELLING, (Reported) LAST FILLED #3 09-08-17 Insulin Glargine,Hum.rec.anlog 300 Unit/1 Ml Insuln.pen, 18 UNIT SQ HS Prescribed by: JONN YAO on 03/06/18 0859 Insulin Lispro 100 Unit/1 Ml Insuln.pen, SQ UD, (Reported) 80-150= 10 units 151-200= 15 units 201-300= 17 units 300+= 21 units Losartan Potassium 100 Mg Tablet, 100 MG PO DAILY, (Reported) Metoprolol Succinate 50 Mg Tab.er.24h, 50 MG PO DAILY Prescribed by: JONN YAO on 03/06/18 0859 Potassium Chloride 10 Meq Tablet.er, 10 MEQ PO DAILY PRN for WITH FUROSEMIDE, ( Reported) LAST FILLED #3 09-08-17 Patient Home Medication List Home Medication List Reviewed: Yes Review of Systems Constitutional: see HPI EENTM: see HPI Respiratory: no symptoms reported Cardiovascular: no symptoms reported Genitourinary: no symptoms reported Musculoskeletal: no symptoms reported Skin: no symptoms reported Psychiatric/Neurological: No Symptoms Reported Hematologic/Lymphatic: No Symptoms Reported Immunological/Allergic: no symptoms reported Past Xpvczbm-Puijbn-Mjaagu Hx Patient Social History Alcohol Use: Denies Use Number of Drinks Today: DD Alcohol Beverage of Choice: Rum Recreational Drug Use: No Smoking Status: Never a Smoker 2nd Hand Smoke Exposure: No Recent Foreign Travel: No Contact w/Someone Who Travel: No Recent Infectious Disease Expo: No Recent Hopitalizations: Yes (ED VISITS FOR BLOOD SUGAR PROB) Physical Abuse: No Sexual Abuse: No Mistreated: No Fear: No Immunizations Up To Date Tetanus Booster (TDap): Unknown PED Vaccines UTD: No Date of Pneumonia Vaccine: Jun 18, 2017 Date of Influenza Vaccine: Aug 08, 2017 Seasonal Allergies Seasonal Allergies: No Past Medical History Surgeries: Yes (RIGHT FOOT SURGERY) Respiratory: No Currently Using CPAP: No Currently Using BIPAP: No Cardiac: Yes (STENTS, MONITOR PLACED BY DR. 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 Sexually Transmitted Disease: No HIV/AIDS: No Genitourinary: Yes ( KIDNEY DISEASE) Renal Failure Gastrointestinal: No Musculoskeletal: Yes Arthritis Endocrine: Yes Diabetes, Insulin dep HEENT: Yes Cataract Hearing Impairment: Hard of Hearing, Bilateral Hearing Aide Cancer: No Psychosocial: No Nursing Suicide Risk Score: 0 Integumentary: No Blood Disorders: No Family Medical History Alzheimer's disease 19 MOTHER, Arthritis 19 FATHER, 19 MOTHER, G8 BROTHER, G8 BROTHER, G8 BROTHER G8 SISTER G8 SISTER Cardiovascular disease 19 MOTHER, G8 BROTHER, Completed stroke 19 MOTHER, G8 SISTER Hypercholesterolemia 19 FATHER, G8 BROTHER, Hypertension 19 MOTHER, Myocardial infarction 19 FATHER, G8 BROTHER, Heart Disease, Diabetes, Hypertension, Stroke Physical Exam Vital Signs Vital Signs - First Documented 03/17/18 18:05 Temp 98.0 Pulse 48 Resp 18 B/P (MAP) 129/51 (77) Pulse Ox 95 Capillary Refill : Less Than 3 Seconds General Appearance: No Apparent Distress, WD/WN Eyes: Bilateral Eye Normal Inspection, Bilateral Eye PERRL, Bilateral Eye EOMI HEENT: PERRL/EOMI, TMs Normal Neck: Full Range of Motion, Normal Inspection Respiratory: No Accessory Muscle Use, No Respiratory Distress Cardiovascular: Regular Rate, Rhythm, Normal Peripheral Pulses Gastrointestinal: Normal Bowel Sounds, Non Tender, Soft Extremity: Normal Capillary Refill, Normal Inspection Neurologic/Psychiatric: Alert, Oriented x3 Skin: Normal Color, Warm/Dry Progress/Results/Core Measures Suspected Sepsis Recent Fever Within 48 Hours: No Infection Criteria Present: None New/Unexplained Altered Menta: No Sepsis Screen: No Definite Risk SIRS Temperature:98.0 Pulse: 48 Respiratory Rate: 18 Laboratory Tests 03/17/18 18:30: White Blood Count 9.4 Blood Pressure 129 /51 Mean: 77 Laboratory Tests 03/17/18 18:30: Creatinine 2.12H, Platelet Count 402H, Total Bilirubin 0.2 Results/Orders Lab Results Laboratory Tests Test 03/17/18 18:11 03/17/18 18:30 03/17/18 18:56 Range/Units Glucometer 56 *L 142 H 70-110 MG/DL White Blood Count 9.4 4.3-11.0 10^3/uL Red Blood Count 3.90 L 4.35-5.85 10^6/uL Hemoglobin 11.6 11.5-16.0 G/DL Hematocrit 36 35-52 % Mean Corpuscular Volume 92 80-99 FL Mean Corpuscular Hemoglobin 30 25-34 PG Mean Corpuscular Hemoglobin Concent 33 32-36 G/DL Red Cell Distribution Width 15.6 H 10.0-14.5 % Platelet Count 402 H 130-400 10^3/uL Mean Platelet Volume 10.5 H 7.4-10.4 FL Neutrophils (%) (Auto) 36 L 42-75 % Lymphocytes (%) (Auto) 47 H 12-44 % Monocytes (%) (Auto) 12 0-12 % Eosinophils (%) (Auto) 5 0-10 % Basophils (%) (Auto) 0 0-10 % Neutrophils # (Auto) 3.4 1.8-7.8 X 10^3 Lymphocytes # (Auto) 4.4 H 1.0-4.0 X 10^3 Monocytes # (Auto) 1.1 H 0.0-1.0 X 10^3 Eosinophils # (Auto) 0.5 H 0.0-0.3 10^3/uL Basophils # (Auto) 0.0 0.0-0.1 10^3/uL Sodium Level 138 135-145 MMOL/L Potassium Level 5.3 H 3.6-5.0 MMOL/L Chloride Level 107 98-107 MMOL/L Carbon Dioxide Level 21 21-32 MMOL/L Anion Gap 10 5-14 MMOL/L Blood Urea Nitrogen 39 H 7-18 MG/DL Creatinine 2.12 H 0.60-1.30 MG/DL Estimat Glomerular Filtration Rate 22 BUN/Creatinine Ratio 18 Glucose Level 198 H 70-105 MG/DL Calcium Level 9.7 8.5-10.1 MG/DL Total Bilirubin 0.2 0.1-1.0 MG/DL Aspartate Amino Transf (AST/SGOT) 32 5-34 U/L Alanine Aminotransferase (ALT/SGPT) 30 0-55 U/L Alkaline Phosphatase 108 40-136 U/L Total Protein 5.9 L 6.4-8.2 GM/DL Albumin 3.2 3.2-4.5 GM/DL My Orders Orders - ISHA BYERS CLARITY DEVELOPER Cbc With Automated Diff (03/17/18 18:22) Iv Heplock-Insert (Order) (03/17/18 18:22) Comprehensive Metabolic Panel (03/17/18 18:22) General/Regular (03/18/18 Breakfast) Accucheck Stat ONCE (03/17/18 18:22) D50w (Emergency) Syringe (Dextrose 50% 5 (03/17/18 18:30) Ns Iv 1000 Ml (Sodium Chloride 0.9%) (03/17/18 19:00) Cho 60g/M 1snack (16-2000 Elder) (03/17/18 Dinner) Medications Given in ED Current Medications Medications Dose Ordered Sig/Thee Route Start Time Stop Time Status Last Admin Dose Admin Dextrose 25 ml ONCE ONCE IV 03/17/18 18:30 03/17/18 18:31 DC 03/17/18 18:22 25 ML Vital Signs/I&O 03/17/18 18:05 Temp 98.0 Pulse 48 Resp 18 B/P (MAP) 129/51 (77) Pulse Ox 95 Capillary Refill : Less Than 3 Seconds Blood Pressure Mean: 77 Point of Care Testing Finger Stick Blood Glucose: 56 Blood Glucose Action Taken: 09/19 amp d50 given Departure Impression Primary Impression: Acute renal insufficiency Additional Impression: Hypoglycemia Disposition: 01 HOME, SELF-CARE Condition: Stable Departure-Patient Inst. Decision time for Depature: 19:34 Referrals: JONN YAO MD (PCP/Family) Primary Care Physician Patient Instructions: HYPOGLYCEMIA ISHA BYERS APRN Mar 17, 2018 18:38
[2018-03-17 18:53] LABS: ALBUMIN 3.2 GM/DL (3.2-4.5); BILIRUBIN,TOTAL 0.2 MG/DL (0.1-1.0); CALCIUM 9.7 MG/DL (8.5-10.1); CREATININE SERUM 2.12 MG/DL (0.60-1.30); POTASSIUM 5.3 MMOL/L (3.6-5.0); TOTAL PROTEIN 5.9 GM/DL (6.4-8.2)
[2018-03-17] MEDS ORDERED: NS IV 1000 ML 1,000 ML IV SCH (19:00)
== END 2018-03-17 20:19 | disposition home or self-care (01) ==
LOC: EDUNIT# 18:02 → ER 18:03
DX: E11.649 Type 2 diabetes mellitus with hypoglycemia without coma (principal); N28.9 Disorder of kidney and ureter, unspecified; I48.91 Unspecified atrial fibrillation; I25.2 Old myocardial infarction; G40.909 Epilepsy, unspecified, not intractable, without status epilepticus; Z86.73 Personal history of transient ischemic attack (TIA), and cerebral infarction without residual deficits; Z98.890 Other specified postprocedural states; Z79.82 Long term (current) use of aspirin; Z79.4 Long term (current) use of insulin
CPT/HCPCS: 36415; 80053; 82962; 85025; 96374; 99282

== ENCOUNTER 2018-04-14 15:17 | Emergency (ER) | payer MEDICARE, OTHER ==
[~2018-04-14] VITALS: Ht 149.9 cm; Wt 56.7 kg
--- OUTSIDE RECORDS SUMMARY | 2018-04-14 15:22 | XMS REPORT ---
Author Author DILSHAD CANTRELL Organization [facility] Address [address] [place] [address] Care Team Providers Care Production Operator Name Role Phone DILSHAD CANTRELL Unavailable PROBLEMS Unknown Problems ALLERGIES No Information ENCOUNTERS Encounter Location Date Diagnosis [facility] [address] [facility] [id number] [address] Jul, Encounter for immunization Z23 IMMUNIZATIONS Vaccine Route Administration Date Status FLUARIX QUAD (3 AND UP) 2016 IM Intramuscular Aug 03, 2017 Administered SOCIAL HISTORY Never Assessed REASON FOR VISIT Flu shot---[place],[facility] PLAN OF CARE VITAL SIGNS MEDICATIONS Unknown Medications RESULTS No Results PROCEDURES Procedure Date Ordered Result Body Site FLUARIX QUAD (3 AND UP) 2017 Aug 03, 2017 SINGLE IMMUNIZATION ADMIN Aug 03, 2017 INSTRUCTIONS MEDICATIONS ADMINISTERED No Known Medications
--- NOTE | 2018-04-14 15:37 | ED General ---
General Stated Complaint: TOOK THE WRONG INSULIN Source of Information: Patient Exam Limitations: No Limitations History of Present Illness Date Seen by Provider: Apr 14, 2018 Time Seen by Provider: 15:33 Initial Comments to ER with reports of having taken the wrong insulin. At about 245 she ate some ice cream and followed that with a dose of her sliding scale insulin. However she is supposed to use NovoLog on her sliding scale and it called for 21 units based on her blood sugar. However, instead of taking NovoLog and she accidentally took 21 units of Toujeo instead of NovoLog and this was at about 3 PM. She normally takes 20 units of Toujeo at bedtime. On arrival to ER her blood sugar is 500. She states that her blood sugars normally run in the 200- 300 range. She did receive a steroid injection 2 days ago for sciatica and started prednisone yesterday. She is asymptomatic. Timing/Duration: 1 Hour Severity: Moderate Allergies and Home Medications Allergies Coded Allergies: No Known Drug Allergies (Unverified , 03/17/18) Home Medications Amlodipine Besylate 2.5 Mg Tablet, 2.5 MG PO DAILY, (Reported) Apixaban 2.5 Mg Tablet, 2.5 MG PO BID, (Reported) Aspirin 81 Mg Tab.chew, 81 MG PO DAILY, (Reported) Atorvastatin Calcium 40 Mg Tablet, 40 MG PO HS, (Reported) Dronedarone HCl 400 Mg Tablet, 400 MG PO BID, (Reported) Furosemide 20 Mg Tablet, 20 MG PO DAILY PRN for SWELLING, (Reported) LAST FILLED #3 09-08-17 Insulin Glargine,Hum.rec.anlog 300 Unit/1 Ml Insuln.pen, 18 UNIT SQ HS Prescribed by: JONN YAO on 03/06/18 0859 Insulin Lispro 100 Unit/1 Ml Insuln.pen, SQ UD, (Reported) 80-150= 10 units 151-200= 15 units 201-300= 17 units 300+= 21 units Losartan Potassium 100 Mg Tablet, 100 MG PO DAILY, (Reported) Metoprolol Succinate 50 Mg Tab.er.24h, 50 MG PO DAILY Prescribed by: JONN YAO on 03/06/18 0859 Potassium Chloride 10 Meq Tablet.er, 10 MEQ PO DAILY PRN for WITH FUROSEMIDE, ( Reported) LAST FILLED #3 09-08-17 Patient Home Medication List Home Medication List Reviewed: Yes Review of Systems Constitutional: see HPI EENTM: see HPI Respiratory: no symptoms reported Cardiovascular: no symptoms reported Genitourinary: no symptoms reported Musculoskeletal: no symptoms reported Skin: no symptoms reported Psychiatric/Neurological: No Symptoms Reported Past Degddwn-Dtjtkt-Bzsbrs Hx Patient Social History Alcohol Beverage of Choice: Rum 2nd Hand Smoke Exposure: No Recent Foreign Travel: No Contact w/Someone Who Travel: No Recent Hopitalizations: Yes (ED VISITS FOR BLOOD SUGAR PROB) Immunizations Up To Date Tetanus Booster (TDap): Unknown PED Vaccines UTD: No Date of Pneumonia Vaccine: Jun 18, 2017 Date of Influenza Vaccine: Aug 08, 2017 Seasonal Allergies Seasonal Allergies: No Past Medical History Surgeries: Yes (RIGHT FOOT SURGERY) Respiratory: No Currently Using CPAP: No Currently Using BIPAP: No Cardiac: Yes (STENTS, MONITOR PLACED BY DR. 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 Sexually Transmitted Disease: No HIV/AIDS: No Genitourinary: Yes ( KIDNEY DISEASE) Renal Failure Gastrointestinal: No Musculoskeletal: Yes Arthritis Endocrine: Yes Diabetes, Insulin dep HEENT: Yes Cataract Hearing Impairment: Hard of Hearing, Bilateral Hearing Aide Cancer: No Psychosocial: No Integumentary: No Blood Disorders: No Family Medical History Alzheimer's disease 19 MOTHER, Arthritis 19 FATHER, 19 MOTHER, G8 BROTHER, G8 BROTHER, G8 BROTHER G8 SISTER G8 SISTER Cardiovascular disease 19 MOTHER, G8 BROTHER, Completed stroke 19 MOTHER, G8 SISTER Hypercholesterolemia 19 FATHER, G8 BROTHER, Hypertension 19 MOTHER, Myocardial infarction 19 FATHER, G8 BROTHER, Heart Disease, Diabetes, Hypertension, Stroke Physical Exam Vital Signs Capillary Refill : Height, Weight, BMI Height: 4'11.00" Weight: 125lbs. 0.0oz. [id number]; 22.6 BMI Method:Stated General Appearance: No Apparent Distress, WD/WN, Other (alert and oriented well -appearing.) Eyes: Left Eye Other (there is some conjunctivitis on the left with matting of the eye. There is erythema and mild edema to the left lower eyelid bridge of the nose with some vesicles within this. She states this just started today. She associates this with application of ice E hot to her hip for the sciatic pain that she is recently had. She believes that she rubbed the icy hot with her hand and then accidentally touched her face. However she does not have this rash on the hip or the icy hot was placed.); Bilateral Eye PERRL, Bilateral Eye EOMI HEENT: PERRL/EOMI, TMs Normal Neck: Full Range of Motion, Normal Inspection Respiratory: No Accessory Muscle Use, No Respiratory Distress Cardiovascular: Regular Rate, Rhythm, Normal Peripheral Pulses Gastrointestinal: Normal Bowel Sounds, Non Tender, Soft Extremity: Normal Capillary Refill, Normal Inspection Neurologic/Psychiatric: Alert, Oriented x3 Skin: Normal Color, Warm/Dry Progress/Results/Core Measures Suspected Sepsis SIRS Temperature: Pulse: Respiratory Rate: Laboratory Tests 04/14/18 15:38: White Blood Count 6.2 Blood Pressure / Mean: Laboratory Tests 04/14/18 15:38: Creatinine 1.69H, Platelet Count 414H Results/Orders Lab Results Laboratory Tests Test 04/14/18 15:26 04/14/18 15:38 04/14/18 16:28 04/14/18 17:13 Range/Units Glucometer 500 *H 555 *H 450 *H 70-110 MG/DL White Blood Count 6.2 4.3-11.0 10^3/uL Red Blood Count 4.45 4.35-5.85 10^6/uL Hemoglobin 13.5 11.5-16.0 G/DL Hematocrit 40 35-52 % Mean Corpuscular Volume 90 80-99 FL Mean Corpuscular Hemoglobin 30 25-34 PG Mean Corpuscular Hemoglobin Concent 34 32-36 G/DL Red Cell Distribution Width 14.7 H 10.0-14.5 % Platelet Count 414 H 130-400 10^3/uL Mean Platelet Volume 10.9 H 7.4-10.4 FL Neutrophils (%) (Auto) 72 42-75 % Lymphocytes (%) (Auto) 27 12-44 % Monocytes (%) (Auto) 2 0-12 % Eosinophils (%) (Auto) 0 0-10 % Basophils (%) (Auto) 1 0-10 % Neutrophils # (Auto) 4.4 1.8-7.8 X 10^3 Lymphocytes # (Auto) 1.6 1.0-4.0 X 10^3 Monocytes # (Auto) 0.1 0.0-1.0 X 10^3 Eosinophils # (Auto) 0.0 0.0-0.3 10^3/uL Basophils # (Auto) 0.0 0.0-0.1 10^3/uL Sodium Level 131 L 135-145 MMOL/L Potassium Level 5.2 H 3.6-5.0 MMOL/L Chloride Level 98 98-107 MMOL/L Carbon Dioxide Level 22 21-32 MMOL/L Anion Gap 11 5-14 MMOL/L Blood Urea Nitrogen 30 H 7-18 MG/DL Creatinine 1.69 H 0.60-1.30 MG/DL Estimat Glomerular Filtration Rate 28 BUN/Creatinine Ratio 18 Glucose Level 629 *H 70-105 MG/DL Calcium Level 10.2 H 8.5-10.1 MG/DL Test 04/14/18 17:41 04/14/18 18:52 Range/Units Glucometer 431 *H 381 H 70-110 MG/DL My Orders Orders - ISHA BYERS APRN Cbc With Automated Diff (04/14/18 15:25) Basic Metabolic Panel (04/14/18 15:25) Iv Heplock-Insert (Order) (04/14/18 15:25) Ns Iv 500 Ml (Sodium Chloride 0.9%) (04/14/18 15:45) Insulin (Regular) Human (Humulin R (Per (04/14/18 15:45) Metoprolol Tartrate Injection (Lopressor (04/14/18 15:45) Accucheck Stat ONCE (04/14/18 16:26) Insulin (Regular) Human (Humulin R (Per (04/14/18 16:30) Amlodipine Tablet (Norvasc Tablet) (04/14/18 17:30) Accucheck Stat ONCE (04/14/18 17:35) Insulin (Regular) Human (Humulin R (Per (04/14/18 18:00) Medications Given in ED Current Medications Medications Dose Ordered Sig/Thee Route Start Time Stop Time Status Last Admin Dose Admin Amlodipine Besylate 5 mg ONCE ONCE PO 04/14/18 17:30 04/14/18 17:31 DC 04/14/18 18:06 5 MG Insulin Human Regular 10 unit ONCE ONCE IV 04/14/18 15:45 04/14/18 15:46 DC 04/14/18 15:56 10 UNIT Insulin Human Regular 10 unit ONCE ONCE IV 04/14/18 16:30 04/14/18 16:32 DC 04/14/18 16:36 10 UNIT Insulin Human Regular 10 unit ONCE ONCE IV 04/14/18 18:00 04/14/18 18:01 DC 04/14/18 18:07 10 UNIT Metoprolol Tartrate 5 mg ONCE ONCE IV 04/14/18 15:45 04/14/18 15:46 DC 04/14/18 15:59 5 MG Vital Signs/I&O Capillary Refill : Departure Communication (Admissions) 190- blood sugar down to 381. This is after 30 units of IV regular insulin. She's also had ater of fluids. She remains alert and oriented very talkative. Blood pressure is down to 150/72.due to the conjunctivitis on the left and erythema to the left cheek and bridge of the nose I'll prescribe some Keflex as well.I will let her go home with a blood sugar 381. She is not acidotic. She's had a couple of episodes of unresponsiveness with hypoglycemia so I would rather keep her bit on the high side. Impression Primary Impression: Hyperglycemia Additional Impression: Blepharitis of left eye with impetigo Disposition: HOME, SELF-CARE Condition: Improved Departure-Patient Inst. Decision time for Depature: 15:54 Referrals: JONN YAO MD (PCP/Family) Primary Care Physician Patient Instructions: Hyperglycemia, Adult Add. Discharge Instructions: 1. Do not take your Toujeo tonight. You may take your novolog based on sliding scale at dinner time. 2. You may notice that your blood sugars run higher than usual for the next week or two as an effect of the prednisone that your. Scripts Cephalexin (Keflex) 500 Mg Capsule 500 MG PO TID, #21 CAP Prov: ISHA BYERS DIRECT SALES REPRESENTATIVE 04/14/18 ISHA BYERS DIRECT SALES REPRESENTATIVE Apr 14, 2018 15:36
[2018-04-14] MEDS ORDERED: NS IV 500 ML 500 ML IV SCH (15:45)
[2018-04-14] MEDS ORDERED: inSUlin (REGULAR) HUMAN 1 UNIT/0.01 ML (CHARGE PER UNIT) IV ONE ×3 (15:45→18:00)
[2018-04-14] MEDS ORDERED: meTOprolol 5 MG/5 ML (LOPRESSOR) VIAL IV ONE (15:45)
[2018-04-14 15:51] LABS: BASOPHILS % (AUTO) 1 % (0-10); EOSINOPHILS % (AUTO) 0 % (0-10); HEMATOCRIT 40 % (35-52); HEMOGLOBIN 13.5 G/DL (11.5-16.0); LYMPHOCYTES # (AUTO) 1.6 X 10^3 (1.0-4.0); LYMPHOCYTES % (AUTO) 27 % (12-44); MEAN CORPUSCULAR HEMOGLOBIN 30 PG (25-34); MEAN CORPUSCULAR HGB CONC 34 G/DL (32-36); MEAN CORPUSCULAR VOLUME 90 FL (80-99); MEAN PLATELET VOLUME 10.9 FL (7.4-10.4); MONOCYTES # (AUTO) 0.1 X 10^3 (0.0-1.0); MONOCYTES % (AUTO) 2 % (0-12); NEUTROPHILS # (AUTO) 4.4 X 10^3 (1.8-7.8); NEUTROPHILS % (AUTO) 72 % (42-75); PLATELET COUNT 414 10^3/uL (130-400); RED BLOOD COUNT 4.45 10^6/uL (4.35-5.85); RED CELL DISTRIBUTION WIDTH 14.7 % (10.0-14.5); WHITE BLOOD COUNT 6.2 10^3/uL (4.3-11.0)
[2018-04-14 16:07] LABS: CALCIUM 10.2 MG/DL (8.5-10.1); CREATININE SERUM 1.69 MG/DL (0.60-1.30); POTASSIUM 5.2 MMOL/L (3.6-5.0)
[2018-04-14] MEDS ORDERED: amLODIPine 5 MG (NORVASC) TAB PO ONE (17:30)
[2018-04-14] MEDS ORDERED: CEPHALEXIN 250 MG (KEFLEX) CAP PO ONE (19:00)
[2018-04-14] MEDS ORDERED: RX-GENTAMICIN SULFATE 0.3% OP 5 ML BTL OS STA (19:00)
[2018-04-14] MEDS ORDERED: CEPH-507 PO (19:04)
[2018-04-14 19:38] VITALS: BP 144/67
== END 2018-04-14 19:38 | disposition home or self-care (01) ==
LOC: EDUNIT# 15:17 → ER 15:19
DX: E11.65 Type 2 diabetes mellitus with hyperglycemia (principal); T38.3X5A Adverse effect of insulin and oral hypoglycemic [antidiabetic] drugs, initial encounter; H01.006 Unspecified blepharitis left eye, unspecified eyelid; L01.00 Impetigo, unspecified; I48.91 Unspecified atrial fibrillation; I25.2 Old myocardial infarction; I10 Essential (primary) hypertension; E11.51 Type 2 diabetes mellitus with diabetic peripheral angiopathy without gangrene; I73.9 Peripheral vascular disease, unspecified; G40.909 Epilepsy, unspecified, not intractable, without status epilepticus; Z79.01 Long term (current) use of anticoagulants; Z82.49 Family history of ischemic heart disease and other diseases of the circulatory system; Z86.73 Personal history of transient ischemic attack (TIA), and cerebral infarction without residual deficits; Z79.82 Long term (current) use of aspirin; Z95.5 Presence of coronary angioplasty implant and graft; Z79.4 Long term (current) use of insulin
CPT/HCPCS: 36415; 80048; 82962; 85025; 96361; 96374; 96375; 96376; 99283

== ENCOUNTER → 2018-04-17 | Outpatient (RCR) | payer MEDICARE, OTHER ==
[~2018-04-17] MED LIST changes: +CEPH-507 PO
== END | disposition home or self-care (01) ==
PROVIDERS: ATTEND Family Medicine
DX: R53.1 Weakness (principal); R53.81 Other malaise

== ENCOUNTER → 2018-04-27 | Outpatient (CLI) | payer MEDICARE, OTHER ==
--- NOTE | 2018-04-27 16:35 | Diagnostic Imaging Report ---
CLINICAL INDICATION: Patient with low back pain. No known trauma. EXAM: X-ray of the lumbar spine, three views. COMPARISON: None. FINDINGS: There is diffuse osteopenia which greatly limits evaluation of fine bony detail. There is levoscoliosis of the thoracolumbar spine. There is grade 1 anterolisthesis of L5 on S1. There is no definite pars defect seen. Subtle grade 1 anterolisthesis of L4 on L5. There are degenerative spurs seen throughout the lumbar spine, which are worse at the L1-L2 level. There is severe loss of intervertebral disc height, endplate sclerosis, and hypertrophic spurs involving the L1-L2 level. There is lower lumbar spine facet arthropathy. There is sclerosis and spurring of the bilateral sacroiliac joints. Old healed fractures involving the left pubic bones. IMPRESSION: 1: There is no acute lumbar spine fracture as visualized. 2: There is [id number] lumbar spine degenerative disc disease which is most pronounced at the L1-L2 and L5-S1 levels. 3: There is grade 1 anterolisthesis of L4 on L5 and L5 on S1. There is no gross pars defect seen. Dictated by: Dictated on workstation # [id number]
== END ==
LOC: RAD 14:49
PROVIDERS: ATTEND Nurse Practitioner Family
DX: M51.37 Other intervertebral disc degeneration, lumbosacral region (principal); M43.17 Spondylolisthesis, lumbosacral region
CPT/HCPCS: 72100

== ENCOUNTER 2018-05-08 12:58 | Outpatient (RCR) | payer MEDICARE, OTHER ==
[~2018-05-08 12:58] MED LIST changes: -AMLO2.5T PO; +AMLO2.5T3 PO; -LOSA100T28 PO; +LOSA100T8 PO; -LOSA25TA21 PO; +LOSA25TA6 PO; -LOSA50TA36 PO; +LOSA50TA7 PO
== END 2018-06-07 14:58 | disposition home or self-care (01) ==
PROVIDERS: ATTEND Family Medicine
DX: R53.1 Weakness (principal); R53.81 Other malaise

== ENCOUNTER 2018-06-10 21:43 | Inpatient (IN) | payer MEDICARE, OTHER ==
[~2018-06-10] VITALS: Ht 162.6 cm; Wt 49.7 kg
--- NOTE | 2018-06-10 21:50 | ED Neurological Problem ---
General Stated Complaint: WEAKNESS Source: patient, EMS Exam Limitations: clinical condition History of Present Illness Date Seen by Provider: Jun 10, 2018 Time Seen by Provider: 21:38 Initial Comments The patient presents to the ER by EMS with chief complaint she's having rightward slump and right eyes and face deviation. Last known well time 2029. She is comfortable by her . EMS reports blood sugar was unable to read on their glucometer. Our initial glucometer read is also too high. does not know if she took her insulin tonight. She is on Tradjenta O and sliding scale. She has a history of stroke without any residual symptoms. Her stroke was greater than 3 years ago according to the . She had no residual deficits. He says she got up and went to the bathroom about 10 till 9 PM tonight and when she didn't come back he went to check on her. He says last time he saw her and she was normal would've been around 8:30. She was laying on the ground propped up against the cabinets. EMS established a c-collar precaution on her C-spine and brought her in. Allergies and Home Medications Allergies Coded Allergies: No Known Drug Allergies (Unverified , 03/17/18) Home Medications Amlodipine Besylate 2.5 Mg Tablet, 2.5 MG PO DAILY, (Reported) Apixaban 2.5 Mg Tablet, 2.5 MG PO BID, (Reported) Aspirin 81 Mg Tab.chew, 81 MG PO DAILY, (Reported) Atorvastatin Calcium 40 Mg Tablet, 40 MG PO HS, (Reported) Cephalexin 500 Mg Capsule, 500 MG PO TID Prescribed by: ISHA BYERS on 04/14/181903 Dronedarone HCl 400 Mg Tablet, 400 MG PO BID, (Reported) Furosemide 20 Mg Tablet, 20 MG PO DAILY PRN for SWELLING, (Reported) LAST FILLED #3 09-08-17 Insulin Glargine,Hum.rec.anlog 300 Unit/1 Ml Insuln.pen, 18 UNIT SQ HS Prescribed by: JONN YAO on 03/06/18 0859 Insulin Lispro 100 Unit/1 Ml Insuln.pen, SQ UD, (Reported) 80-150= 10 units 151-200= 15 units 201-300= 17 units 300+= 21 units Losartan Potassium 100 Mg Tablet, 100 MG PO DAILY, (Reported) Metoprolol Succinate 50 Mg Tab.er.24h, 50 MG PO DAILY Prescribed by: JONN YAO on 03/06/18 0859 Potassium Chloride 10 Meq Tablet.er, 10 MEQ PO DAILY PRN for WITH FUROSEMIDE, ( Reported) LAST FILLED #3 09-08-17 Patient Home Medication List Home Medication List Reviewed: Yes Review of Systems Review of Systems Constitutional: see HPI (review of systems is severely hampered by her hard of hearing and clinical condition.); No chills, No diaphoresis Eyes: Denies Blindness, Denies Blurred Vision Respiratory: No cough, No phlegm, No short of breath Cardiovascular: No chest pain Gastrointestinal: No abdominal pain, No diarrhea, No vomiting Past Kxtydhc-Kxtivg-Lmnzkx Hx Patient Social History Alcohol Beverage of Choice: Rum 2nd Hand Smoke Exposure: No Recent Hopitalizations: Yes (ED VISITS FOR BLOOD SUGAR PROB) Immunizations Up To Date Tetanus Booster (TDap): Unknown PED Vaccines UTD: No Date of Pneumonia Vaccine: Jun 18, 2017 Date of Influenza Vaccine: Aug 08, 2017 Seasonal Allergies Seasonal Allergies: No Past Medical History Surgeries: Yes (RIGHT FOOT SURGERY) Respiratory: No Currently Using CPAP: No Currently Using BIPAP: No Cardiac: Yes (STENTS, MONITOR PLACED BY DR. 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 Sexually Transmitted Disease: No HIV/AIDS: No Genitourinary: Yes ( KIDNEY DISEASE) Renal Failure Gastrointestinal: No Musculoskeletal: Yes Arthritis Endocrine: Yes Diabetes, Insulin dep HEENT: Yes Cataract Hearing Impairment: Hard of Hearing, Bilateral Hearing Aide Cancer: No Psychosocial: No Integumentary: No Blood Disorders: No Family Medical History Alzheimer's disease 19 MOTHER, Arthritis 19 FATHER, 19 MOTHER, G8 BROTHER, G8 BROTHER, G8 BROTHER G8 SISTER G8 SISTER Cardiovascular disease 19 MOTHER, G8 BROTHER, Completed stroke 19 MOTHER, G8 SISTER Hypercholesterolemia 19 FATHER, G8 BROTHER, Hypertension 19 MOTHER, Myocardial infarction 19 FATHER, G8 BROTHER, Heart Disease, Diabetes, Hypertension, Stroke Physical Exam Vital Signs Vital Signs - First Documented 06/10/18 22:00 Temp 97.6 Pulse 115 Resp 20 B/P (MAP) 246/128 (167) Pulse Ox 98 O2 Delivery Nasal Cannula O2 Flow Rate 6.00 Capillary Refill : Height, Weight, BMI Height: 4'11.00" Weight: 125lbs. 0.0oz. 56.661234xw; 22.6 BMI Method:Stated General Appearance: moderate distress, thin HEENT: TMs normal, pharynx normal, other (left pupil rightward gaze and right pupil straight ahead.) Neck: non-tender, normal inspection, other (c-collar on) Respiratory: chest non-tender, lungs clear, normal breath sounds, no respiratory distress, no accessory muscle use Cardiovascular: normal peripheral pulses, regular rate, rhythm, no edema Peripheral Pulses: 2+ Dorsalis Pedis (R), 2+ Left Dors-Pedis (L), 2+ Radial Pulses (R), 2+ Radial Pulses (L) Gastrointestinal: normal bowel sounds, non tender, soft Extremities: normal range of motion, non-tender, normal capillary refill Neurologic/Psychiatric: alert, oriented x 3, other (anxious) Crainal Nerves: abnormal eye position (left eye is rightward deviated), hearing deficit (R), hearing deficit (L) (baseline) Coordination/Gait: ABN nose to finger (R), ABN nose to finger (L) Skin: normal color, warm/dry Stroke Onset of Symptoms Date of Onset of Symptoms: Jun 10, 2018 Time of Symptom Onset: 20:00 Onset of Symptoms: Yes Symptoms onset unknown: No NIH Stroke Scale Assessment Select: Initial Level of Consciousness: 0=Alert (0), Level of Consciousness- Questions: 0=Answers both month/age (0), LOC Commands: 1=Performs one task (1), Gaze: Forced Deviation (2), Visual Escoto: 0=No visual loss (0), Facial Movement (Facial Paresis): 2=Partial paralysis (2), Motor Function-Arms Right: 1 =Drift (1), Motor Function-Arms Left: 1=Drift (1), Motor Function-Legs Right: 1= Drift (1), Motor Function-Legs Left: 1=Drift (1), Limb Ataxia: 2=Present in two limbs (2), Sensory: 0=Normal:no loss (0), Best Language: 0=No aphasia (0), Dysarthria: 1=Mild to moderate loss (1), Extinction & Inattention: 1=Visual, tactile,auditory (1), Total: 13 Stroke Thrombolytic Exclusion Age 18 or Over: Yes Acute intenal hemorrhage: No History of CVA: No Uncontrolled Coagulation Defec: No Intracranial Hemorrhage: No Severe Hypertension: No GI or Bleed: No Subarachnoid Hemorrhage: No Intracranial Neoplasm/Aneurysm: No Oral Anticoagulants: Yes Surgery or Trauma: No Puncture of Non-Compressible V: No Recent CPR: No Diabetic Hemorrhagic Retinopat: No Organ Biopsy: No Recent Obstetric Delivery: No Glucose: Yes Significant Hepatic Dysfunctio: No NIH Stoke Scale >22: No Bacterial Endocarditis: No Pericarditis: No Improving Symptoms: Yes Platelets: No Focused Exam Lactate Level 06/10/18 22:10: Lactic Acid Level Laboratory Tests Test 06/10/18 22:10 Progress/Results/Core Measures Results/Orders Lab Results Laboratory Tests Test 06/10/18 21:53 06/10/18 22:10 06/10/18 22:30 06/10/18 22:39 Range/Units Glucometer > 600 *H > 600 *H 70-110 MG/DL White Blood Count 6.4 4.3-11.0 10^3/uL Red Blood Count 5.02 4.35-5.85 10^6/uL Hemoglobin 14.8 11.5-16.0 G/DL Hematocrit 44 35-52 % Mean Corpuscular Volume 88 80-99 FL Mean Corpuscular Hemoglobin 30 25-34 PG Mean Corpuscular Hemoglobin Concent 34 32-36 G/DL Red Cell Distribution Width 14.1 10.0-14.5 % Platelet Count 425 H 130-400 10^3/uL Mean Platelet Volume 11.2 H 7.4-10.4 FL Neutrophils (%) (Auto) 53 42-75 % Lymphocytes (%) (Auto) 34 12-44 % Monocytes (%) (Auto) 11 0-12 % Eosinophils (%) (Auto) 2 0-10 % Basophils (%) (Auto) 0 0-10 % Neutrophils # (Auto) 3.4 1.8-7.8 X 10^3 Lymphocytes # (Auto) 2.2 1.0-4.0 X 10^3 Monocytes # (Auto) 0.7 0.0-1.0 X 10^3 Eosinophils # (Auto) 0.1 0.0-0.3 10^3/uL Basophils # (Auto) 0.0 0.0-0.1 10^3/uL Prothrombin Time 12.0 L 12.2-14.7 SEC INR Comment 0.9 0.8-1.4 Activated Partial Thromboplast Time 23 L 24-35 SEC D-Dimer 1.53 H 0.00-0.49 UG/ML Sodium Level 132 L 135-145 MMOL/L Potassium Level 5.2 H 3.6-5.0 MMOL/L Chloride Level 97 L 98-107 MMOL/L Carbon Dioxide Level 21 21-32 MMOL/L Anion Gap 14 5-14 MMOL/L Blood Urea Nitrogen 25 H 7-18 MG/DL Creatinine 1.76 H 0.60-1.30 MG/DL Estimat Glomerular Filtration Rate 27 BUN/Creatinine Ratio 14 Glucose Level 743 *H 70-105 MG/DL Calcium Level 10.7 H 8.5-10.1 MG/DL Corrected Calcium 11.1 H 8.5-10.1 MG/DL Total Bilirubin 0.4 0.1-1.0 MG/DL Aspartate Amino Transf (AST/SGOT) 29 5-34 U/L Alanine Aminotransferase (ALT/SGPT) 33 0-55 U/L Alkaline Phosphatase 115 40-136 U/L Troponin I < 0.30 <0.30 NG/ML Total Protein 6.7 6.4-8.2 GM/DL Albumin 3.5 3.2-4.5 GM/DL Urine Color YELLOW Urine Clarity CLEAR Urine pH 8 5-9 Urine Specific Plush 1.010 L 1.016-1.022 Urine Protein 3+ H NEGATIVE Urine Glucose (UA) 4+ H NEGATIVE Urine Ketones NEGATIVE NEGATIVE Urine Nitrite NEGATIVE NEGATIVE Urine Bilirubin NEGATIVE NEGATIVE Urine Urobilinogen NORMAL NORMAL MG/DL Urine Leukocyte Esterase NEGATIVE NEGATIVE Urine RBC (Auto) 2+ H NEGATIVE Urine RBC 2-5 H /HPF Urine WBC 5-10 H /HPF Urine Squamous Epithelial Cells 0-2 /HPF Urine Renal Epithelial Cells NONE /HPF Urine Crystals NONE /LPF Urine Bacteria MODERATE H /HPF Urine Casts NONE /LPF Urine Mucus NEGATIVE /LPF Urine Culture Indicated YES My Orders Orders - IVONNE MUHAMMAD Code/Resuscitation (06/10/18 21:47) Cbc With Automated Diff (06/10/18 21:47) Protime With Inr (06/10/18 21:47) Partial Thromboplastin Time (06/10/18 21:47) Comprehensive Metabolic Panel (06/10/18 21:47) Fibrin Degradation Products (06/10/18:47) Troponin I (06/10/18:47) Ua Culture If Indicated (06/10/18:47) Chest 1 View, Ap/Pa Only (06/10/18:47) Catheter(Urinary) Insert & Ass 03,15 (06/10/18:47) Ekg Tracing (06/10/18:47) Nothing By Mouth (06/11/18 Breakfast) Accucheck Stat ONCE (06/10/18:47) Saline Lock/Iv-Start (06/10/18:47) Saline Lock/Iv-Start (06/10/18:47) Vital Signs Stroke Patient Q15M (06/10/18:47) Ct Head Wo-R/O Stroke (06/10/18:47) O2 (06/10/18:47) Intake & Output 06,14,22 (06/10/18:47) Monitor-Rhythm Ecg Trace Only (06/10/18:47) Dysphagia Screening Tool (06/10/18:47) Lipid Panel (06/11/18 06:00) Ct Cervical Spine Wo (06/10/18:47) Insulin (Regular) Human (Humulin R (Per (06/10/18 22:15) Ct Angio Head/Neck (06/10/18 22:37) Lorazepam Injection (Ativan Injection) (06/10/18 22:43) Lorazepam Injection (Ativan Injection) (06/10/18 23:00) Ekg Tracing (06/10/18 22:58) Continuous Ekg Monitoring (06/10/18 22:58) Urine Culture (06/10/18 22:30) Iohexol Injection (Omnipaque 350 Mg/Ml 1 (06/10/18 23:30) Blood Culture (06/10/18 23:54) Lactic Acid Analyzer (06/10/18 23:54) Ceftriaxone For Iv Use (Rocephin For I (06/11/18 00:00) Vital Signs/I&O 06/10/18 06/10/18 22:00 22:06 Temp 97.6 Pulse 115 Resp 20 B/P (MAP) 246/128 (167) Pulse Ox 98 98 O2 Delivery Nasal Cannula Nasal Cannula O2 Flow Rate 6.00 6.00 18 00:00 Intake Total 250 ml Balance 250 ml Progress Progress Note #1: Time: 22:46 Progress Note As patient was being transported down to do a CT angiogram of the head neck with runoffs she started having a seizure. We gave her 2 mg Ativan IV which halted her seizure. She was tachycardic so we obtained EKG to rule out atrial fib/flutter with rapid ventricular response since she does have a history of paroxysmal atrial fibrillation. She is in sinus tach. Progress Note #2: Time: 23:36 Progress Note C-collar removed by radiographic imaging. Patient is nontender in the neck. Initial ECG Impression Date: Jun 10, 2018 Initial ECG Impression Time: 22:15 Initial ECG Rate: 102 Initial ECG Rhythm: S.Tach Initial ECG Intervals: Normal Initial ECG Impression: Normal, Nonspecific Changes Comment Sinus tachycardia without ST elevation or depression. EKG : EKG Time: 22:51 Rate: 115 Rhythm: S.Tach Intervals: Normal Intervals Sinus tachycardia. No ST elevation or depression. Diagnostic Imaging Diagonstic Imaging: CT Plain Films/CT/US/NM/MRI: c-spine, head Comments Noncontrast CT of the head shows old nonacute MCA right temporal lobe that is new since the previous study in February but does not appear to be recent. There is no acute bleed. Stable moderate generalized atrophic change and moderate microvascular ischemic change in the paraventricular white matter. Old right MCA segmental distribution infarct and superior aspect of temporal lobe with ongoing encephalomalacic change, new from the study on March 02. Acute intracranial pathology is not otherwise apparent. Findings of a bland thromboembolic infarct can develop called 18 hours after onset of symptoms. Multilevel degenerative disc disease with disc bulging/disc osteophyte complex formation from C3 to C4 through C5 to C6, with associated foraminal narrowing as described, without spinal canal stenosis and without acute bony pathology. Reviewed: Reviewed by Me Diagonstic Imaging: CT (angio) Plain Films/CT/US/NM/MRI: head (neck) Comments Left carotid bulb 1-2 cm distal has a 50-60% stenosis. Unremarkable head CT angiogram. Reviewed: Reviewed by Me Consults : Consults Notes [facility] neurology on-call. Dr Castillo; we discussed case and decided the patient is not a candidate for tPA because of her recent Eliquis use. She encourages to continue to treat the blood sugars as we would. She would not do anything with the blood pressure at this point to try and control it. She does recommend that we get a CT angiogram and if she has worsening or progressive symptoms or if the CT angiogram shows actionable to call her back. If the creatinine is historically been good then go ahead and do the CT angiogram. If we have any further questions then we can call her back. Departure Communication (Admissions) Time/Spoke to Admitting Phy: 00:17 Discussed case lab imaging findings and discussion with neurology with Dr. Tucker and he agrees to admit patient to ICU for HHS. Impression Primary Impression: Hyperosmolar hyperglycemic coma due to diabetes mellitus without ketoacidosis Additional Impression: Seizure Disposition: ADMITTED INPATIENT Condition: Critical Admissions Decision to Admit Reason: Admit from ER (General) Decision to Admit/Date: Jun 11, 2018 Time/Decision to Admit Time: 00:27 Departure-Patient Inst. Referrals: JONN YAO MD (PCP/Family) Primary Care Physician Copy Copies To 1: JONN YAO MD, TITUS J Jun 10, 2018 21:50
--- OUTSIDE RECORDS SUMMARY | 2018-06-10 21:51 | XMS REPORT | CCD ---
Author Author [facility] Organization [facility] Address [address] [place] [address] Phone Care Team Providers Care General Internist And Physician Leader Name Role Phone PP Unavailable CCM Unavailable Summary Purpose Interface Exchange Insurance Providers Payer name Policy type / Coverage type Covered democrat ID Effective Begin Date Effective End Date WPS Medicare Part B Medicare Part B [id number] Unknown Unknown [employer] Medicare Part B [id number] Unknown Unknown Family history Mother Diagnosis Age [...] Unknown 2 05/04/[address]: [id number] Never smoker 05/04/2015 Alcohol history Unknown occasionally drinks alcohol 05/04/2015 Allergies, Adverse Reactions, Alerts Substance Reaction Codes Entered Date Inactivated Date Status * NO KNOWN DRUG ALLERGIES Unknown 07/08/2015 No Inactive Date Active Past Medical History Illness Codes Condition Status Onset Date Resolved Date Intervertebral disc disorders with radiculopathy, 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.10 ICD-10: M51.16 Active 05/02/2018 Unknown Low back pain ICD-9: 724.2 ICD-10: M54.5 Active 04/12/2018 Unknown Diplopia ICD-9: 368.2 ICD-10: H53.2 Active 04/20/2018 Unknown Rash and other nonspecific skin eruption ICD-9: 782.1 ICD-10: R21 Active 04/20/2018 Unknown Type 2 diabetes mellitus with hyperglycemia ICD-9: 250.02 ICD-10: E11.65 Active 12/21/2017 Unknown Lumbago with sciatica, left side ICD-9: 724.3 ICD-10: M54.42 Active 04/03/2018 Unknown Essential (primary) hypertension ICD-9: 401.1 ICD-10: I10 Active 09/20/2016 Unknown Sciatica Unknown Active 04/03/2018 Unknown Encounter for general adult medical examination with abnormal findings ICD-9: V70.0 ICD-10: Z00.01 Active 02/22/2018 Unknown Muscle weakness (generalized) ICD-9: 728.87 ICD-10: M62.81 Active 12/21/2017 Unknown Mixed hyperlipidemia ICD-9: 272.2 ICD-10: E78.2 [...] Problems Condition Codes Effective Dates Condition Status Intervertebral disc disorders with radiculopathy, 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.10 ICD-10: M51.16 05/02/2018 Active Low back pain ICD-9: 724.2 ICD-10: M54.5 04/12/2018 Active Diplopia ICD-9: 368.2 ICD-10: H53.2 04/20/2018 Active Rash and other nonspecific skin eruption ICD-9: 782.1 ICD-10: R21 04/20/2018 Active Type 2 diabetes mellitus with hyperglycemia ICD-9: 250.02 ICD-10: E11.65 12/21/2017 Active Lumbago with sciatica, left side ICD-9: 724.3 ICD-10: M54.42 04/03/2018 Active Essential (primary) hypertension ICD-9: 401.1 ICD-10: I10 09/20/2016 Active Sciatica Unknown 04/03/2018 Active Encounter for general adult medical examination with abnormal findings ICD-9: V70.0 ICD-10: Z00.01 02/22/2018 Active Muscle weakness (generalized) ICD-9: 728.87 ICD-10: M62.81 12/21/2017 Active Mixed hyperlipidemia ICD-9: 272.2 ICD-10: E78.2 [...] Start Date Stop Date Status Fill Instructions cyclobenzaprine 5 mg tablet RxNorm: 628943 1/2 Tablet(s) PO BID as needed muscle spasms/back pain 05/02/2018 05/31/2018 Active Voltaren 1 % topical gel RxNorm: 843236 1 Application TOP QID 04/27/2018 No Stop Date Active tramadol 50 mg tablet RxNorm: 000636 1 Tablet(s) PO TID as needed for pain 04/27/2018 05/01/2018 Inactive acyclovir 400 mg tablet RxNorm: 616683 2 Tablet(s) PO QID 04/20 No Stop Date Active mupirocin 2 % topical ointment RxNorm: 928579 1 Application TOP BID 04/20/2018 04/29/2018 Inactive right cheek/nose gentamicin 0.3 % eye drops RxNorm: 816946 2 Drop(s) ophthalmic (eye) left eye Q8 04/16/2018 No Stop Date Active prednisone 20 mg tablet RxNorm: 605419 2 Tablet(s) PO daily 04/12/2018 Inactive prednisone 20 mg tablet RxNorm: 229341 2 Tablet(s) PO daily 04/17/2018 Inactive Kenalog 40 mg/mL suspension for injection RxNorm: 4062571 1 Milliliter(s) Inj 04/12/2018 04/12/2018 Inactive losartan 100 mg tablet RxNorm: 936992 1 Tablet(s) PO QAM 201712/28/2018 Active update RX -dose should be 100mg Norvasc 5 mg tablet RxNorm: 136242 1 Tablet(s) PO daily 201709/29/2018 Active update RX losartan 50 mg tablet RxNorm: 758027 TAKE ONE TABLET BY MOUTH ONCE DAILY IN THE MORNING 03/26/2018 04/02/2018 Inactive Tourutho SoloStar U-300 Insulin 300 unit/mL (1.5 mL) subcutaneous pen RxNorm: 5174811 20 Unit(s) SQ QHS MANAGED BY DR. JOHNSON 201707/10/2018 Active Humalog U-100 Insulin 100 unit/mL subcutaneous solution RxNorm: 202102 15 Unit(s) SQ AC MANAGED BY DR. JOHNSON 03/13/2018 No Stop Date Active 201- 200 17 units, greater than 300 21 units losartan 100 mg tablet RxNorm: 455489 1 Tablet(s) PO QAM 201704/02/2018 Inactive pantoprazole 40 mg tablet,delayed release RxNorm: 876776 1 Tablet(s) PO daily 01/11/2018 08/08/2018 Active carvedilol 12.5 mg tablet RxNorm: 568609 1 Tablet(s) PO BID 03/06/2019 Active Toujeo SoloStar U-300 Insulin 300 unit/mL (1.5 mL) subcutaneous pen RxNorm: 3728268 15 Unit(s) SQ QHS MANAGED BY DR. JOHNSON 201703/12/2018 Inactive Multaq 400 mg tablet RxNorm: 353857 1 Tablet(s) PO BID 201712/14/2018 Active potassium chloride ER 10 mEq tablet,extended release RxNorm: 678864 1 Tablet(s) PO daily while on the Lasix 10/18/201701/2018 Inactive losartan 50 mg tablet RxNorm: 992893 1 Tablet(s) PO QAM 201601/17/2018 Inactive Lasix 20 mg tablet RxNorm: 362082 1 Tablet(s) PO daily 201610/03/2017 Inactive potassium chloride ER 10 mEq tablet,extended release RxNorm: 661692 1 Tablet(s) PO daily while on the Lasix 08/30/2017 Inactive Toujeo SoloStar 300 unit/mL (1.5 mL) subcutaneous insulin pen RxNorm: 1933020 35 Unit(s) SQ QHS MANAGED BY DR. JOHNSON 06/15/2017 10/12/2017 Inactive Eliquis 5 mg tablet RxNorm: 6782461 TAKE ONE TABLET BY MOUTH TWICE DAILY 03/01/2017 02/23/2018 Inactive Januvia 100 mg tablet RxNorm: 869999 1/2 Tablet(s) PO daily 04/04/2017 Inactive losartan 50 mg tablet RxNorm: 958492 1 Tablet(s) PO BID 201509/13/2017 Inactive amlodipine 10 mg tablet RxNorm: 739944 1 Tablet(s) PO daily 06/14/2017 Inactive generic for NORVASC losartan 50 mg tablet RxNorm: 253255 1 Tablet(s) PO daily 201508/31/2016 Inactive Toujeo SoloStar 300 unit/mL (1.5 mL) subcutaneous insulin pen RxNorm: 6208833 40 Unit(s) SQ QHS MANAGED BY DR. JOHNSON 07/01/2016 06/14/2017 Inactive Toujeo SoloStar 300 unit/mL (1.5 mL) subcutaneous insulin pen RxNorm: 2906793 35 Unit(s) SQ QHS MANAGED BY DR. JOHNSON 06/02/2016 06/30/2016 Inactive Humalog 100 unit/mL subcutaneous solution RxNorm: 667548 15 Unit(s) SQ AC MANAGED BY DR. JOHNSON 06/02/2016 03/12/2018 Inactive carvedilol 3.125 mg tablet RxNorm: 970494 1 Tablet(s) PO BID 04/23/2016 Inactive simvastatin 40 mg tablet RxNorm: 707865 1 Tablet(s) PO QHS 01/29/2017 Inactive Humalog 100 unit/mL subcutaneous solution RxNorm: 299610 13 Unit(s) SQ AC MANAGED BY DR. JOHNSON 01/26/2016 06/01/2016 Inactive Eliquis 5 mg tablet RxNorm: 5528048 1 Tablet(s) PO BID 201501/13/2017 Inactive carvedilol 6.25 mg tablet RxNorm: 690242 1 Tablet(s) PO BID 2016 Inactive Humalog 100 unit/mL subcutaneous solution RxNorm: 935621 Unit(s) SQ UD as directed by office 08/07/2015 01/25/2016 Inactive Klor-Con 10 mEq tablet,extended release RxNorm: 351109 1 Tablet(s) PO daily as needed 06/26/2015 10/23/2015 Inactive Lasix 20 mg tablet RxNorm: 030470 1 Tablet(s) PO daily as needed 06/26/2015 10/23/2015 Inactive fluticasone 50 mcg/actuation nasal spray,suspension RxNorm: 629963 2 [place] NASAL daily No Start Date Active cetirizine 10 mg tablet RxNorm: 2858746 1 Tablet(s) PO daily No Start Date Active losartan 25 mg tablet RxNorm: 833305 1 Tablet(s) PO daily No Start Date 08/31/2016 Inactive losartan 100 mg tablet RxNorm: 108424 1 Tablet(s) PO daily No Start Date 06/30/2016 Inactive gentamicin 0.3 % eye drops RxNorm: 330476 2 Drop(s) ophthalmic (eye) left eye Q8 No Start Date 04/15/2018 Inactive Multaq 400 mg tablet RxNorm: 923873 1 Tablet(s) PO BID No Start Date 12/19/2017 Inactive Klor-Con 10 mEq tablet,extended release RxNorm: 174916 1 Tablet(s) PO daily as needed No Start Date 06/25/2015 Inactive simvastatin 40 mg tablet RxNorm: 444690 1 Tablet(s) PO daily No Start Date 02/04/2016 Inactive carvedilol 6.25 mg tablet RxNorm: 490439 1 Tablet(s) PO BID No Start Date 11/30/2015 Inactive Eliquis 5 mg tablet RxNorm: 1881071 1 Tablet(s) PO BID No Start Date 01/19/2016 Inactive Toujeo SoloStar 300 unit/mL (1.5 mL) subcutaneous insulin pen RxNorm: 6362332 33 Unit(s) SQ QHS MANAGED BY DR. JOHNSON No Start Date 06/01/2016 Inactive Lasix 20 mg tablet RxNorm: 002838 1 Tablet(s) PO daily as needed No Start Date 06/25/2015 Inactive Humalog 100 unit/mL subcutaneous solution RxNorm: 335808 10 Unit(s) SQ TID No Start Date 08/06/2015 Inactive amlodipine 5 mg tablet RxNorm: 363833 1 Tablet(s) PO daily No Start Date 08/31/2016 Inactive Norvasc 2.5 mg tablet RxNorm: 207144 1 Tablet(s) PO daily No Start Date 04/02/2018 Inactive Medication Administered Medication Codes Instructions Start Date Status Kenalog 40 mg/mL suspension for injection RxNorm: 6334863 1Milliliter 04/12/2018 No longer Active Immunizations Vaccine Codes Date Status Influenza CVX: 141 06/02/2016 completed Influenza CVX: 141 07/17/2015 completed Influenza CVX: 141 06/18/2014 completed Pneumococcal CVX: 33 06/18/2014 completed Assessments Condition Codes Effective Dates Intervertebral disc disorders with radiculopathy, lumbar region ICD-10: M51.16 ICD-9: 722.10 05/02/2018 Low back pain ICD-10: M54.5 ICD-9: 724.2 04/27/2018 Rash and other nonspecific skin eruption ICD-10: R21 ICD-9: 782.1 04/20/2018 Type 2 diabetes mellitus with hyperglycemia ICD-10: E11.65 ICD-9: 250.02 04/20/2018 Diplopia ICD-10: H53.2 ICD-9: 368.2 04/20/2018 Lumbago with sciatica, left side ICD-10: M54.42 ICD-9: 724.3 04/12/2018 Essential (primary) hypertension ICD-10: I10 ICD-9: 401.1 04/10/2018 Encounter for general adult medical examination with abnormal findings ICD-10: Z00.01 ICD-9: V70.0 02/22/2018 Muscle weakness (generalized) ICD-10: M62.81 ICD-9: 728.87 12/21/2017 Mixed hyperlipidemia ICD-10: E78.2 ICD-9: 272.2 10/10/2017 [...] Visit Reason For Visit Effective Dates Notes vision change 05/02/2018 leg pain/sciatica 04/27/2018 vision change 04/20/2018 sciatica 04/12/2018 myalgias 04/10/2018 myalgias 04/03/2018 Hospital Follow Up 03/13/2018 Annual Medicare Wellness Exam 02/22/2018 diabetes mellitus 02/01/2018 Hospital Follow Up 01/18/2018 Hospital Follow Up 12/21/2017 hypertension 10/10/2017 weakness 09/07/2017 fever 08/30/2017 hypertension [...] 92.2 fl 05/25/2017 Cbc With Differential Ord2 [place]% 8.9 % 05/25/2017 Cbc With Differential Ord2 [...] 3.78 K/ul 05/25/2017 Cbc With Differential Ord2 [place] ABS# 0.7 K/ul 05/25/2017 Cbc With Differential Ord2 Eos ABS# 0.8 K/ul 05/25/2017 Cbc With Differential Ord2 Baso ABS# 0.3 K/ul 05/25/2017 Manual Differential Ord52 D-Neutr 50 % 05/25/2017 Manual Differential Ord52 D-Lymph 38 % 05/25/2017 Manual Differential Ord52 D-Eos 10 % 05/25/2017 Manual Differential Ord52 D-1 2 NRBC 05/25/2017 Comp Metabolic Omz927 NA 140 mEq/L 05/25/2017 Comp Metabolic Fxn816 K 4.0 mEq/L 05/25/2017 Comp Metabolic Wpz038 CL 107 mEq/L 05/25/2017 Comp Metabolic Lpe809 CO2 22.0 mEq/L 05/25/2017 Comp Metabolic Vib500 ANION GAP 15 05/25/2017 Comp Metabolic Sgc793 GLUCOSE 97 mg/dL 05/25/2017 Comp Metabolic Qsl180 Creat 0.9 mg/dL 05/25/2017 Comp Metabolic Glq648 eGFR 61 ml/min/1.73m2 05/25/2017 Comp Metabolic Vsv557 BUN 16 mg/dL 05/25/2017 Comp Metabolic Ozc304 B/C Ratio 17.4 Ratio 05/25/2017 Comp Metabolic Skx245 CALCIUM 9.1 mg/dL 05/25/2017 Comp Metabolic Yue924 ALK PHOS 109 U/L 05/25/2017 Comp Metabolic Nqb225 AST(SGOT) 19 U/L 05/25/2017 Comp Metabolic Ipg705 ALT(SGPT) 17 U/L 05/25/2017 Comp Metabolic Niw605 BILI T 0.4 mg/dL 05/25/2017 Comp Metabolic Kok612 ALBUMIN 3.3 g/dL 05/25/2017 Comp Metabolic Dhn468 TPRO 6.0 g/dL 05/25/2017 Comp Metabolic Qha812 GLOB 2.7 g/dL 05/25/2017 Comp Metabolic Bwt013 A/G Ratio 1.2 Ratio 05/25/2017 Comp Metabolic Dny675 Osmo 281 mOsmo 05/25/2017 Lipid Ord30 CHOL 204 mg/dL 05/25/2017 Lipid Ord30 HDL 49.0 mg/dl 05/25/2017 Lipid Ord30 TRIG 117 mg/dL 05/25/2017 Lipid Ord30 LDL 132 mg/dL 05/25/2017 Lipid Ord30 C/HDL 4.2 Ratio 05/25/2017 %Hba1C Dvd633 % HbA1c 68555-5 10.5 % 05/25/2017 %Hba1C Iwo847 Gluc Ave 255 mg/dL 05/25/2017 Microalbumin Per288 MicroAlb 95.0 mg/dL 05/25/2017 Review of Systems System Result Effective Dates Constitutional No recent illness 2017 Constitutional No chills 05/02/2018 Constitutional No diaphoresis 05/02/2018 Constitutional No fever 05/02/2018 Eyes No blindness 05/02/2018 Ears/Nose/Throat/Neck No nasal discharge 05/02/2018 Ears/Nose/Throat/Neck No sore throat Ears/Nose/Throat/Neck No sinus congestion 05/02/2018 Cardiovascular No chest pain/pressure Cardiovascular hypertension 05/02/2018 Respiratory No chest congestion 2017 Respiratory No cough 05/02/2018 Respiratory No dyspnea on exertion 2017 Gastrointestinal No abdominal pain 2017 Gastrointestinal No constipation 2017 Gastrointestinal No diarrhea 05/02/2018 Gastrointestinal No nausea 05/02/2018 Gastrointestinal No vomiting 05/02/2018 Musculoskeletal stiffness 05/02/2018 Musculoskeletal arthralgia(s) 05/02/2018 Dermatologic No rash 05/02/2018 Neurologic No alteration of consciousness 05/02/2018 Neurologic No mental status change 2017 Endocrine diabetes mellitus type 2 2017 Constitutional No recent illness 2017 Constitutional No chills 04/27/2018 Constitutional No fever 04/27/2018 Eyes No eye erythema 04/27/2018 Ears/Nose/Throat/Neck No nasal discharge 04/27/2018 Cardiovascular No chest pain/pressure 06/2018 Cardiovascular No dyspnea 04/27/2018 Respiratory No cough 04/27/2018 Respiratory No dyspnea 04/27/2018 Musculoskeletal joint complaint 2017 Neurologic No alteration of consciousness 04/27/2018 Neurologic No mental status change 2017 Musculoskeletal back pain 04/27/2018 Constitutional recent illness 04/20/2018 Constitutional No anorexia 04/20/2018 Constitutional No night sweats 2017 Constitutional No diaphoresis 04/20/2018 Constitutional No chills 04/20/2018 Constitutional fatigue 04/20/2018 Constitutional No fever 04/20/2018 Constitutional No insomnia 04/20/2018 Constitutional No malaise 04/20/2018 Constitutional No weight loss 04/20/2018 Constitutional No weight gain 04/20/2018 Eyes eye discharge 04/20/2018 Eyes eye erythema 04/20/2018 Eyes vision change 04/20/2018 Ears/Nose/Throat/Neck No dizziness 2017 Ears/Nose/Throat/Neck No headache 2017 Cardiovascular No chest pain/pressure 11/2017 Respiratory No cough 04/20/2018 Gastrointestinal No abdominal pain 2017 Gastrointestinal No constipation 2017 Gastrointestinal No diarrhea 04/20/2018 Genitourinary/Nephrology No dysuria 04/20 Musculoskeletal No joint complaint 2017 Dermatologic rash 04/20/2018 Neurologic No alteration of consciousness 04/20/2018 Neurologic vision change 04/20/2018 Constitutional No recent illness 2017 Constitutional No chills 04/12/2018 Constitutional No fever 04/12/2018 Eyes No eye erythema 04/12/2018 Ears/Nose/Throat/Neck No nasal discharge 04/12/2018 Cardiovascular No chest pain/pressure Cardiovascular No dyspnea 04/12/2018 Respiratory No cough 04/12/2018 Respiratory No dyspnea 04/12/2018 Neurologic No alteration of consciousness 04/12/2018 Neurologic No mental status change 2017 Musculoskeletal back pain 04/12/2018 Dermatologic No rash 04/12/2018 Constitutional No recent illness 2017 Constitutional No chills 04/10/2018 Constitutional No diaphoresis 04/10/2018 Constitutional No fever 04/10/2018 Eyes No blindness 04/10/2018 Ears/Nose/Throat/Neck No nasal discharge 04/10/2018 Ears/Nose/Throat/Neck No sore throat Ears/Nose/Throat/Neck No sinus congestion 04/10/2018 Cardiovascular No chest pain/pressure Cardiovascular hypertension 04/10/2018 Respiratory No chest congestion 2017 Respiratory No cough 04/10/2018 Respiratory No dyspnea on exertion 2017 Gastrointestinal No abdominal pain 2017 Gastrointestinal No constipation 2017 Gastrointestinal No diarrhea 04/10/2018 Gastrointestinal No nausea 04/10/2018 Gastrointestinal No vomiting 04/10/2018 Musculoskeletal stiffness 04/10/2018 Musculoskeletal arthralgia(s) 04/10/2018 Dermatologic No rash 04/10/2018 Neurologic No alteration of consciousness 04/10/2018 Neurologic No mental status change 2017 Endocrine diabetes mellitus type 2 2017 Constitutional No recent illness 2017 Constitutional No chills 04/03/2018 Constitutional No diaphoresis 04/03/2018 Constitutional No fever 04/03/2018 Eyes No blindness 04/03/2018 Ears/Nose/Throat/Neck No nasal discharge 04/03/2018 Ears/Nose/Throat/Neck No sore throat Ears/Nose/Throat/Neck No sinus congestion 04/03/2018 Cardiovascular No chest pain/pressure Cardiovascular hypertension 04/03/2018 Respiratory No chest congestion 2017 Respiratory No cough 04/03/2018 Respiratory No dyspnea on exertion 2017 Gastrointestinal No abdominal pain 2017 Gastrointestinal No constipation 2017 Gastrointestinal No diarrhea 04/03/2018 Gastrointestinal No nausea 04/03/2018 Gastrointestinal No vomiting 04/03/2018 Musculoskeletal stiffness 04/03/2018 Musculoskeletal arthralgia(s) 04/03/2018 Dermatologic No rash 04/03/2018 Neurologic No alteration of consciousness 04/03/2018 Neurologic No mental status change 2017 Endocrine diabetes mellitus type 2 2017 Musculoskeletal back pain 04/03/2018 Constitutional No recent illness 2017 Constitutional No chills 03/13/2018 Constitutional No diaphoresis 03/13/2018 Constitutional No fever 03/13/2018 Eyes No blindness 03/13/2018 Ears/Nose/Throat/Neck No nasal discharge 03/13/2018 Ears/Nose/Throat/Neck No sore throat Ears/Nose/Throat/Neck No sinus congestion 03/13/2018 Cardiovascular No chest pain/pressure Cardiovascular hypertension 03/13/2018 Respiratory No chest congestion 2017 Respiratory No cough 03/13/2018 Respiratory No dyspnea on exertion 2017 Gastrointestinal No abdominal pain 2017 Gastrointestinal No constipation 2017 Gastrointestinal No diarrhea 03/13/2018 Gastrointestinal No nausea 03/13/2018 Gastrointestinal No vomiting 03/13/2018 Musculoskeletal stiffness 03/13/2018 Musculoskeletal arthralgia(s) 03/13/2018 Dermatologic No rash 03/13/2018 Neurologic No alteration of consciousness 03/13/2018 Neurologic No mental status change 2017 Endocrine diabetes mellitus type 2 2017 Constitutional No recent illness 2017 Constitutional No chills 02/22/2018 Constitutional No diaphoresis 02/22/2018 Constitutional No fever 02/22/2018 Eyes No blindness 02/22/2018 Ears/Nose/Throat/Neck No nasal discharge 02/22/2018 Ears/Nose/Throat/Neck No sore throat 03/2018 Ears/Nose/Throat/Neck No sinus congestion 02/22/2018 Cardiovascular No chest pain/pressure 03/2018 Cardiovascular hypertension 02/22/2018 Respiratory No chest congestion 2017 Respiratory No cough 02/22/2018 Respiratory No dyspnea on exertion 2017 Gastrointestinal No abdominal pain 2017 Gastrointestinal No constipation 2017 Gastrointestinal No diarrhea 02/22/2018 Gastrointestinal No nausea 02/22/2018 Gastrointestinal No vomiting 02/22/2018 Musculoskeletal arthralgia(s) 02/22/2018 Dermatologic No rash 02/22/2018 Neurologic No alteration of consciousness 02/22/2018 Neurologic No mental status change 2017 Endocrine diabetes mellitus type 2 2017 Ears/Nose/Throat/Neck hearing loss 2017 Constitutional No recent illness 2017 Constitutional No chills 02/01/2018 Constitutional No diaphoresis 02/01/2018 Constitutional No fever 02/01/2018 Eyes No blindness 02/01/2018 Ears/Nose/Throat/Neck No nasal discharge 02/01/2018 Ears/Nose/Throat/Neck No sinus congestion 02/01/2018 Ears/Nose/Throat/Neck No sore throat Cardiovascular No chest pain/pressure Cardiovascular edema 02/01/2018 Cardiovascular hypertension 02/01/2018 Respiratory No chest congestion 2017 Respiratory No cough 02/01/2018 Respiratory No dyspnea on exertion 2017 Gastrointestinal No abdominal pain 2017 Gastrointestinal No constipation 2017 Gastrointestinal No diarrhea 02/01/2018 Gastrointestinal No nausea 02/01/2018 Gastrointestinal No vomiting 02/01/2018 Musculoskeletal arthralgia(s) 02/01/2018 Dermatologic No rash 02/01/2018 Neurologic No alteration of consciousness 02/01/2018 Neurologic No mental status change 2017 Endocrine diabetes mellitus type 2 2017 Constitutional No recent illness 2017 Constitutional No chills 01/18/2018 Constitutional No diaphoresis 01/18/2018 Constitutional No fever 01/18/2018 Eyes No blindness 01/18/2018 Ears/Nose/Throat/Neck No nasal discharge 01/18/2018 Ears/Nose/Throat/Neck No sore throat 11/2017 Ears/Nose/Throat/Neck No sinus congestion 01/18/2018 Cardiovascular No chest pain/pressure 11/2017 Cardiovascular hypertension 01/18/2018 Respiratory No chest congestion 2017 Respiratory No cough 01/18/2018 Respiratory No dyspnea on exertion 2017 Gastrointestinal No abdominal pain 2017 Gastrointestinal No constipation 2017 Gastrointestinal No diarrhea 01/18/2018 Gastrointestinal No nausea 01/18/2018 Gastrointestinal No vomiting 01/18/2018 Musculoskeletal stiffness 01/18/2018 Musculoskeletal arthralgia(s) 01/18/2018 Dermatologic No rash 01/18/2018 Neurologic No alteration of consciousness 01/18/2018 Neurologic No mental status change 2017 Endocrine diabetes mellitus type 2 2017 Constitutional No recent illness 2017 Constitutional No chills 12/21/2017 Constitutional No diaphoresis 12/21/2017 Constitutional No fever 12/21/2017 Eyes No blindness 12/21/2017 Ears/Nose/Throat/Neck No nasal discharge 12/21/2017 Ears/Nose/Throat/Neck No sinus congestion 12/21/2017 Ears/Nose/Throat/Neck No sore throat 01/2018 Cardiovascular No chest pain/pressure 01/2018 Cardiovascular edema 12/21/2017 Cardiovascular hypertension 12/21/2017 Respiratory No chest congestion 2017 Respiratory No cough 12/21/2017 Respiratory No dyspnea on exertion 2017 Gastrointestinal No abdominal pain 2017 Gastrointestinal No constipation 2017 Gastrointestinal No diarrhea 12/21/2017 Gastrointestinal No nausea 12/21/2017 Gastrointestinal No vomiting 12/21/2017 Musculoskeletal arthralgia(s) 12/21/2017 Dermatologic No rash 12/21/2017 Neurologic No alteration of consciousness 12/21/2017 Neurologic No mental status change 2017 Endocrine diabetes mellitus type 2 2017 Musculoskeletal stiffness 12/21/2017 Constitutional No recent illness 2017 Constitutional No [...] 1994 Constitutional general appearance Overall: well developed 05/02/2018 None Full Exam - General 1994 Constitutional general appearance Overall: in no acute distress 05/02/2018 None Full Exam - General 1994 Constitutional general appearance Overall: well nourished 05/02/2018 None Full Exam - General 1994 Constitutional general appearance Hygiene/Attention to Grooming: good hygiene 05/02/2018 None Full Exam - General 1994 Ears/Nose/Throat lips/teeth/gingiva Overall: benign lips 05/02/2018 None Full Exam - General 1994 Ears/Nose/Throat oral cavity/pharynx/larynx Overall: oral mucosa clear 05/02/2018 None Full Exam - General 1994 Ears/Nose/Throat oral cavity/pharynx/larynx Overall: oropharyngeal mucosa clear 05/02/2018 None Full Exam - General 1994 Respiratory auscultation Overall: breath sounds clear bilaterally 05/02/2018 None Full Exam - General 1994 Respiratory respiratory effort/rhythm Overall: no retractions 05/02/2018 None Full Exam - General 1994 Respiratory respiratory effort/rhythm Overall: normal rate 05/02/2018 None Full Exam - General 1994 Cardiovascular auscultation of heart Overall: regular rate 05/02/2018 None Full Exam - General 1994 Cardiovascular auscultation of heart Overall: normal heart sounds 05/02/2018 None Full Exam - General 1994 Abdomen abdominal exam Overall: normal bowel sounds 05/02/2018 None Full Exam - General 1994 Psychiatric orientation/consciousness Overall: oriented to person, place and time 05/02/2018 None Full Exam - General 1994 Psychiatric mood and affect Overall: normal mood and affect 05/02/2018 None Full Exam - General 1994 Abdomen abdominal exam Overall: no tenderness 05/02/2018 None Full Exam - General 1994 Musculoskeletal spine, ribs and pelvis Posture: lordosis 05/02/2018 None Full Exam - Orthopedics Constitutional general appearance Overall: well nourished 04/27/2018 None Full Exam - Orthopedics Constitutional general appearance Overall: well developed 04/27/2018 None Full Exam - Orthopedics Constitutional general appearance Overall: in no acute distress 04/27/2018 None Full Exam - Orthopedics Eyes conjunctiva/ eyelids Overall: conjunctiva clear 04/27/2018 None Full Exam - Orthopedics Eyes conjunctiva/ eyelids Overall: eyelids normal 04/27/2018 None Full Exam - Orthopedics Ears/Nose/Throat lips/teeth/gingiva Overall: benign lips 04/27/2018 None Full Exam - Orthopedics Ears/Nose/Throat oral cavity/pharynx/larynx Overall: oral mucosa clear 04/27/2018 None Full Exam - Orthopedics Respiratory respiratory effort/rhythm Overall: no retractions 04/27/2018 None Full Exam - Orthopedics Respiratory respiratory effort/rhythm Overall: normal rate 04/27/2018 None Full Exam - Orthopedics Psychiatric orientation/consciousness Overall: oriented to person, place and time 04/27/2018 None Full Exam - Orthopedics Psychiatric mood and affect Overall: normal mood and affect 04/27/2018 None Full Exam - Orthopedics Psychiatric appearance Overall: well-groomed, good eye contact 04/27/2018 None Full Exam - Orthopedics MS: head/neck insp & palp - H/N Overall: head atraumatic 04/27/2018 None Full Exam - Orthopedics MS: spine/rib/pelvis insp & palp - S/R/P Lumbar spine palpation: tender lumbar spinous processes 04/27/2018 None Full Exam - Orthopedics MS: spine/rib/pelvis insp & palp - S/R/P Lumbar spine palpation: tender facet joints 04/27/2018 None Full Exam - Orthopedics MS: spine/rib/pelvis insp & palp - S/R/P Thoracic/lumbar muscles palpation: tender right paralumbar 04/27/2018 None Full Exam - Orthopedics MS: spine/rib/pelvis insp & palp - S/R/P Thoracic/lumbar muscles palpation: tender left paralumbar 04/27/2018 None Full Exam - Orthopedics MS: spine/rib/pelvis insp & palp - S/R/P Sacroiliac palpation: left sacroiliac joint tenderness 04/27/2018 None Full Exam - Orthopedics MS: spine/rib/pelvis insp & palp - S/R/P Sacroiliac palpation: right sacroiliac joint tenderness 04/27/2018 None Full Exam - General 1994 Constitutional general appearance Overall: well developed 04/20/2018 None Full Exam - General 1994 Constitutional general appearance Overall: in no acute distress 04/20/2018 None Full Exam - General 1994 Constitutional general appearance Overall: well nourished 04/20/2018 None Full Exam - General 1994 Constitutional general appearance Hygiene/Attention to Grooming: good hygiene 04/20/2018 None Full Exam - General 1994 Eyes conjunctiva /eyelids Overall: conjunctiva clear 04/20/2018 None Full Exam - General 1994 Eyes conjunctiva /eyelids Overall: cornea clear 04/20/2018 None Full Exam - General 1994 Eyes conjunctiva /eyelids Overall: eyelids normal 04/20/2018 None Full Exam - General 1994 Eyes pupils and irises Overall: pupils equal, round, reactive to light and accomodation 04/20/2018 None Full Exam - General 1994 Ears/Nose/Throat otoscopic exam Overall: external auditory canals clear 04/20/2018 None Full Exam - General 1994 Ears/Nose/Throat otoscopic exam Overall: tympanic membranes clear 04/20/2018 None Full Exam - General 1994 Ears/Nose/Throat lips/teeth/gingiva Overall: benign lips 04/20/2018 None Full Exam - General 1994 Ears/Nose/Throat oral cavity/pharynx/larynx Overall: oral mucosa clear 04/20/2018 None Full Exam - General 1994 Ears/Nose/Throat oral cavity/pharynx/larynx Overall: oropharyngeal mucosa clear 04/20/2018 None Full Exam - General 1994 Respiratory auscultation Overall: breath sounds clear bilaterally 04/20/2018 None Full Exam - General 1994 Respiratory respiratory effort/rhythm Overall: no retractions 04/20/2018 None Full Exam - General 1994 Respiratory respiratory effort/rhythm Overall: normal rate 04/20/2018 None Full Exam - General 1994 Cardiovascular auscultation of heart Overall: regular rate 04/20/2018 None Full Exam - General 1994 Cardiovascular auscultation of heart Overall: normal heart sounds 04/20/2018 None Full Exam - General 1994 Abdomen abdominal exam Overall: no tenderness 04/20/2018 None Full Exam - General 1994 Abdomen abdominal exam Overall: normal bowel sounds 04/20/2018 None Full Exam - General 1994 Lymphatic neck nodes Overall: anterior cervical chain benign 04/20/2018 None Full Exam - General 1994 Lymphatic neck nodes Overall: posterior cervical chain benign 04/20/2018 None Full Exam - General 1994 Neurologic cranial nerves Overall: crainial nerves 2 - 12 grossly intact 04/20/2018 None Full Exam - General 1994 Psychiatric orientation/consciousness Overall: oriented to person, place and time 04/20/2018 None Full Exam - General 1994 Psychiatric mood and affect Overall: normal mood and affect 04/20/2018 None Full Exam - General 1994 Integument inspection of skin Location: face 04/20/2018 scabbed rash left nose, cheek and lower eyelid Full Exam - Orthopedics Constitutional general appearance Overall: well nourished 04/12/2018 None Full Exam - Orthopedics Constitutional general appearance Overall: well developed 04/12/2018 None Full Exam - Orthopedics Constitutional general appearance Overall: in no acute distress 04/12/2018 None Full Exam - Orthopedics Eyes conjunctiva/ eyelids Overall: conjunctiva clear 04/12/2018 None Full Exam - Orthopedics Eyes conjunctiva/ eyelids Overall: eyelids normal 04/12/2018 None Full Exam - Orthopedics Ears/Nose/Throat lips/teeth/gingiva Overall: benign lips 04/12/2018 None Full Exam - Orthopedics Ears/Nose/Throat oral cavity/pharynx/larynx Overall: oral mucosa clear 04/12/2018 None Full Exam - Orthopedics Respiratory respiratory effort/rhythm Overall: no retractions 04/12/2018 None Full Exam - Orthopedics Respiratory respiratory effort/rhythm Overall: normal rate 04/12/2018 None Full Exam - Orthopedics Psychiatric orientation/consciousness Overall: oriented to person, place and time 04/12/2018 None Full Exam - Orthopedics Psychiatric mood and affect Overall: normal mood and affect 04/12/2018 None Full Exam - Orthopedics Psychiatric appearance Overall: well-groomed, good eye contact 04/12/2018 None Full Exam - Orthopedics MS: head/neck insp & palp - H/N Overall: head atraumatic 04/12/2018 None Full Exam - Orthopedics MS: spine/rib/pelvis insp & palp - S/R/P Sacroiliac palpation: left sacroiliac joint tenderness 04/12/2018 None Full Exam - Orthopedics MS: spine/rib/pelvis insp & palp - S/R/P Lumbar spine palpation: tender lumbar spinous processes 04/12/2018 None Full Exam - Orthopedics MS: spine/rib/pelvis insp & palp - S/R/P Lumbar spine palpation: tender facet joints 04/12/2018 None Full Exam - General 1994 Constitutional general appearance Overall: well developed 04/10/2018 None Full Exam - General 1994 Constitutional general appearance Overall: in no acute distress 04/10/2018 None Full Exam - General 1994 Constitutional general appearance Overall: well nourished 04/10/2018 None Full Exam - General 1994 Constitutional general appearance Hygiene/Attention to Grooming: good hygiene 04/10/2018 None Full Exam - General 1994 Eyes conjunctiva /eyelids Overall: conjunctiva clear 04/10/2018 None Full Exam - General 1994 Eyes conjunctiva /eyelids Overall: cornea clear 04/10/2018 None Full Exam - General 1994 Eyes conjunctiva /eyelids Overall: eyelids normal 04/10/2018 None Full Exam - General 1994 Eyes pupils and irises Overall: pupils equal, round, reactive to light and accomodation 04/10/2018 None Full Exam - General 1994 Ears/Nose/Throat otoscopic exam Overall: external auditory canals clear 04/10/2018 None Full Exam - General 1994 Ears/Nose/Throat otoscopic exam Overall: tympanic membranes clear 04/10/2018 None Full Exam - General 1994 Ears/Nose/Throat lips/teeth/gingiva Overall: benign lips 04/10/2018 None Full Exam - General 1994 Ears/Nose/Throat oral cavity/pharynx/larynx Overall: oral mucosa clear 04/10/2018 None Full Exam - General 1994 Ears/Nose/Throat oral cavity/pharynx/larynx Overall: oropharyngeal mucosa clear 04/10/2018 None Full Exam - General 1994 Respiratory auscultation Overall: breath sounds clear bilaterally 04/10/2018 None Full Exam - General 1994 Respiratory respiratory effort/rhythm Overall: no retractions 04/10/2018 None Full Exam - General 1994 Respiratory respiratory effort/rhythm Overall: normal rate 04/10/2018 None Full Exam - General 1994 Cardiovascular auscultation of heart Overall: regular rate 04/10/2018 None Full Exam - General 1994 Cardiovascular auscultation of heart Overall: normal heart sounds 04/10/2018 None Full Exam - General 1994 Abdomen abdominal exam Overall: no tenderness 04/10/2018 None Full Exam - General 1994 Abdomen abdominal exam Overall: normal bowel sounds 04/10/2018 None Full Exam - General 1994 Lymphatic neck nodes Overall: anterior cervical chain benign 04/10/2018 None Full Exam - General 1994 Lymphatic neck nodes Overall: posterior cervical chain benign 04/10/2018 None Full Exam - General 1994 Neurologic cranial nerves Overall: crainial nerves 2 - 12 grossly intact 04/10/2018 None Full Exam - General 1994 Psychiatric orientation/consciousness Overall: oriented to person, place and time 04/10/2018 None Full Exam - General 1994 Psychiatric mood and affect Overall: normal mood and affect 04/10/2018 None Full Exam - General 1994 Constitutional general appearance Overall: well developed 04/03/2018 None Full Exam - General 1994 Constitutional general appearance Overall: in no acute distress 04/03/2018 None Full Exam - General 1994 Constitutional general appearance Overall: well nourished 04/03/2018 None Full Exam - General 1994 Constitutional general appearance Hygiene/Attention to Grooming: good hygiene 04/03/2018 None Full Exam - General 1994 Eyes conjunctiva /eyelids Overall: conjunctiva clear 04/03/2018 None Full Exam - General 1994 Eyes conjunctiva /eyelids Overall: cornea clear 04/03/2018 None Full Exam - General 1994 Eyes conjunctiva /eyelids Overall: eyelids normal 04/03/2018 None Full Exam - General 1994 Eyes pupils and irises Overall: pupils equal, round, reactive to light and accomodation 04/03/2018 None Full Exam - General 1994 Ears/Nose/Throat otoscopic exam Overall: external auditory canals clear 04/03/2018 None Full Exam - General 1994 Ears/Nose/Throat otoscopic exam Overall: tympanic membranes clear 04/03/2018 None Full Exam - General 1994 Ears/Nose/Throat lips/teeth/gingiva Overall: benign lips 04/03/2018 None Full Exam - General 1994 Ears/Nose/Throat oral cavity/pharynx/larynx Overall: oral mucosa clear 04/03/2018 None Full Exam - General 1994 Ears/Nose/Throat oral cavity/pharynx/larynx Overall: oropharyngeal mucosa clear 04/03/2018 None Full Exam - General 1994 Respiratory auscultation Overall: breath sounds clear bilaterally 04/03/2018 None Full Exam - General 1994 Respiratory respiratory effort/rhythm Overall: no retractions 04/03/2018 None Full Exam - General 1994 Respiratory respiratory effort/rhythm Overall: normal rate 04/03/2018 None Full Exam - General 1994 Cardiovascular auscultation of heart Overall: regular rate 04/03/2018 None Full Exam - General 1994 Cardiovascular auscultation of heart Overall: normal heart sounds 04/03/2018 None Full Exam - General 1994 Abdomen abdominal exam Overall: no tenderness 04/03/2018 None Full Exam - General 1994 Abdomen abdominal exam Overall: normal bowel sounds 04/03/2018 None Full Exam - General 1994 Lymphatic neck nodes Overall: anterior cervical chain benign 04/03/2018 None Full Exam - General 1994 Lymphatic neck nodes Overall: posterior cervical chain benign 04/03/2018 None Full Exam - General 1994 Neurologic cranial nerves Overall: crainial nerves 2 - 12 grossly intact 04/03/2018 None Full Exam - General 1994 Psychiatric orientation/consciousness Overall: oriented to person, place and time 04/03/2018 None Full Exam - General 1994 Psychiatric mood and affect Overall: normal mood and affect 04/03/2018 None Full Exam - General 1994 Musculoskeletal spine, ribs and pelvis Sacroiliac joints: tender left sacroiliac joint 04/03/2018 None Full Exam - General 1994 Musculoskeletal spine, ribs and pelvis Palpation: tender at greater trochanter 04/03/2018 None Full Exam - General 1994 Constitutional general appearance Overall: well developed 03/13/2018 None Full Exam - General 1994 Constitutional general appearance Overall: in no acute distress 03/13/2018 None Full Exam - General 1994 Constitutional general appearance Overall: well nourished 03/13/2018 None Full Exam - General 1994 Constitutional general appearance Hygiene/Attention to Grooming: good hygiene 03/13/2018 None Full Exam - General 1994 Eyes conjunctiva /eyelids Overall: conjunctiva clear 03/13/2018 None Full Exam - General 1994 Eyes conjunctiva /eyelids Overall: cornea clear 03/13/2018 None Full Exam - General 1994 Eyes conjunctiva /eyelids Overall: eyelids normal 03/13/2018 None Full Exam - General 1994 Eyes pupils and irises Overall: pupils equal, round, reactive to light and accomodation 03/13/2018 None Full Exam - General 1994 Ears/Nose/Throat otoscopic exam Overall: external auditory canals clear 03/13/2018 None Full Exam - General 1994 Ears/Nose/Throat otoscopic exam Overall: tympanic membranes clear 03/13/2018 None Full Exam - General 1994 Ears/Nose/Throat lips/teeth/gingiva Overall: benign lips 03/13/2018 None Full Exam - General 1994 Ears/Nose/Throat oral cavity/pharynx/larynx Overall: oral mucosa clear 03/13/2018 None Full Exam - General 1994 Ears/Nose/Throat oral cavity/pharynx/larynx Overall: oropharyngeal mucosa clear 03/13/2018 None Full Exam - General 1994 Respiratory auscultation Overall: breath sounds clear bilaterally 03/13/2018 None Full Exam - General 1994 Respiratory respiratory effort/rhythm Overall: no retractions 03/13/2018 None Full Exam - General 1994 Respiratory respiratory effort/rhythm Overall: normal rate 03/13/2018 None Full Exam - General 1994 Cardiovascular auscultation of heart Overall: regular rate 03/13/2018 None Full Exam - General 1994 Cardiovascular auscultation of heart Overall: normal heart sounds 03/13/2018 None Full Exam - General 1994 Abdomen abdominal exam Overall: no tenderness 03/13/2018 None Full Exam - General 1994 Abdomen abdominal exam Overall: normal bowel sounds 03/13/2018 None Full Exam - General 1994 Lymphatic neck nodes Overall: anterior cervical chain benign 03/13/2018 None Full Exam - General 1994 Lymphatic neck nodes Overall: posterior cervical chain benign 03/13/2018 None Full Exam - General 1994 Neurologic cranial nerves Overall: crainial nerves 2 - 12 grossly intact 03/13/2018 None Full Exam - General 1994 Psychiatric orientation/consciousness Overall: oriented to person, place and time 03/13/2018 None Full Exam - General 1994 Psychiatric mood and affect Overall: normal mood and affect 03/13/2018 None Full Exam - General 1994 Constitutional general appearance Overall: well developed 02/22/2018 None Full Exam - General 1994 Constitutional general appearance Overall: in no acute distress 02/22/2018 None Full Exam - General 1994 Constitutional general appearance Overall: well nourished 02/22/2018 None Full Exam - General 1994 Constitutional general appearance Hygiene/Attention to Grooming: good hygiene 02/22/2018 None Full Exam - General 1994 Eyes conjunctiva /eyelids Overall: conjunctiva clear 02/22/2018 None Full Exam - General 1994 Eyes conjunctiva /eyelids Overall: cornea clear 02/22/2018 None Full Exam - General 1994 Eyes conjunctiva /eyelids Overall: eyelids normal 02/22/2018 None Full Exam - General 1994 Eyes pupils and irises Overall: pupils equal, round, reactive to light and accomodation 02/22/2018 None Full Exam - General 1994 Ears/Nose/Throat otoscopic exam Overall: external auditory canals clear 02/22/2018 None Full Exam - General 1994 Ears/Nose/Throat otoscopic exam Overall: tympanic membranes clear 02/22/2018 None Full Exam - General 1994 Ears/Nose/Throat lips/teeth/gingiva Overall: benign lips 02/22/2018 None Full Exam - General 1994 Ears/Nose/Throat oral cavity/pharynx/larynx Overall: oral mucosa clear 02/22/2018 None Full Exam - General 1994 Ears/Nose/Throat oral cavity/pharynx/larynx Overall: oropharyngeal mucosa clear 02/22/2018 None Full Exam - General 1994 Respiratory auscultation Overall: breath sounds clear bilaterally 02/22/2018 None Full Exam - General 1994 Respiratory respiratory effort/rhythm Overall: no retractions 02/22/2018 None Full Exam - General 1994 Respiratory respiratory effort/rhythm Overall: normal rate 02/22/2018 None Full Exam - General 1994 Cardiovascular auscultation of heart Overall: regular rate 02/22/2018 None Full Exam - General 1994 Cardiovascular auscultation of heart Overall: normal heart sounds 02/22/2018 None Full Exam - General 1994 Abdomen abdominal exam Overall: no tenderness 02/22/2018 None Full Exam - General 1994 Abdomen abdominal exam Overall: normal bowel sounds 02/22/2018 None Full Exam - General 1994 Lymphatic neck nodes Overall: anterior cervical chain benign 02/22/2018 None Full Exam - General 1994 Lymphatic neck nodes Overall: posterior cervical chain benign 02/22/2018 None Full Exam - General 1994 Neurologic cranial nerves Overall: crainial nerves 2 - 12 grossly intact 02/22/2018 None Full Exam - General 1994 Psychiatric orientation/consciousness Overall: oriented to person, place and time 02/22/2018 None Full Exam - General 1994 Psychiatric mood and affect Overall: normal mood and affect 02/22/2018 None Full Exam - General 1994 Constitutional general appearance Overall: well developed 02/01/2018 None Full Exam - General 1994 Constitutional general appearance Overall: in no acute distress 02/01/2018 None Full Exam - General 1994 Constitutional general appearance Overall: well nourished 02/01/2018 None Full Exam - General 1994 Constitutional general appearance Hygiene/Attention to Grooming: good hygiene 02/01/2018 None Full Exam - General 1994 Eyes conjunctiva /eyelids Overall: conjunctiva clear 02/01/2018 None Full Exam - General 1994 Eyes conjunctiva /eyelids Overall: cornea clear 02/01/2018 None Full Exam - General 1994 Eyes conjunctiva /eyelids Overall: eyelids normal 02/01/2018 None Full Exam - General 1994 Eyes pupils and irises Overall: pupils equal, round, reactive to light and accomodation 02/01/2018 None Full Exam - General 1994 Ears/Nose/Throat otoscopic exam Overall: external auditory canals clear 02/01/2018 None Full Exam - General 1994 Ears/Nose/Throat otoscopic exam Overall: tympanic membranes clear 02/01/2018 None Full Exam - General 1994 Ears/Nose/Throat lips/teeth/gingiva Overall: benign lips 02/01/2018 None Full Exam - General 1994 Ears/Nose/Throat oral cavity/pharynx/larynx Overall: oral mucosa clear 02/01/2018 None Full Exam - General 1994 Ears/Nose/Throat oral cavity/pharynx/larynx Overall: oropharyngeal mucosa clear 02/01/2018 None Full Exam - General 1994 Respiratory auscultation Overall: breath sounds clear bilaterally 02/01/2018 None Full Exam - General 1994 Respiratory respiratory effort/rhythm Overall: no retractions 02/01/2018 None Full Exam - General 1994 Respiratory respiratory effort/rhythm Overall: normal rate 02/01/2018 None Full Exam - General 1994 Cardiovascular auscultation of heart Overall: regular rate 02/01/2018 None Full Exam - General 1994 Cardiovascular auscultation of heart Overall: normal heart sounds 02/01/2018 None Full Exam - General 1994 Abdomen abdominal exam Overall: no tenderness 02/01/2018 None Full Exam - General 1994 Abdomen abdominal exam Overall: normal bowel sounds 02/01/2018 None Full Exam - General 1994 Lymphatic neck nodes Overall: anterior cervical chain benign 02/01/2018 None Full Exam - General 1994 Lymphatic neck nodes Overall: posterior cervical chain benign 02/01/2018 None Full Exam - General 1994 Neurologic cranial nerves Overall: crainial nerves 2 - 12 grossly intact 02/01/2018 None Full Exam - General 1994 Psychiatric orientation/consciousness Overall: oriented to person, place and time 02/01/2018 None Full Exam - General 1994 Psychiatric mood and affect Overall: normal mood and affect 02/01/2018 None Full Exam - General 1994 Constitutional general appearance Overall: well developed 01/18/2018 None Full Exam - General 1994 Constitutional general appearance Overall: in no acute distress 01/18/2018 None Full Exam - General 1994 Constitutional general appearance Overall: well nourished 01/18/2018 None Full Exam - General 1994 Constitutional general appearance Hygiene/Attention to Grooming: good hygiene 01/18/2018 None Full Exam - General 1994 Eyes conjunctiva /eyelids Overall: conjunctiva clear 01/18/2018 None Full Exam - General 1994 Eyes conjunctiva /eyelids Overall: cornea clear 01/18/2018 None Full Exam - General 1994 Eyes conjunctiva /eyelids Overall: eyelids normal 01/18/2018 None Full Exam - General 1994 Eyes pupils and irises Overall: pupils equal, round, reactive to light and accomodation 01/18/2018 None Full Exam - General 1994 Ears/Nose/Throat otoscopic exam Overall: external auditory canals clear 01/18/2018 None Full Exam - General 1994 Ears/Nose/Throat otoscopic exam Overall: tympanic membranes clear 01/18/2018 None Full Exam - General 1994 Ears/Nose/Throat lips/teeth/gingiva Overall: benign lips 01/18/2018 None Full Exam - General 1994 Ears/Nose/Throat oral cavity/pharynx/larynx Overall: oral mucosa clear 01/18/2018 None Full Exam - General 1994 Ears/Nose/Throat oral cavity/pharynx/larynx Overall: oropharyngeal mucosa clear 01/18/2018 None Full Exam - General 1994 Respiratory auscultation Overall: breath sounds clear bilaterally 01/18/2018 None Full Exam - General 1994 Respiratory respiratory effort/rhythm Overall: no retractions 01/18/2018 None Full Exam - General 1994 Respiratory respiratory effort/rhythm Overall: normal rate 01/18/2018 None Full Exam - General 1994 Cardiovascular auscultation of heart Overall: regular rate 01/18/2018 None Full Exam - General 1994 Cardiovascular auscultation of heart Overall: normal heart sounds 01/18/2018 None Full Exam - General 1994 Abdomen abdominal exam Overall: no tenderness 01/18/2018 None Full Exam - General 1994 Abdomen abdominal exam Overall: normal bowel sounds 01/18/2018 None Full Exam - General 1994 Psychiatric orientation/consciousness Overall: oriented to person, place and time 01/18/2018 None Full Exam - General 1994 Psychiatric mood and affect Overall: normal mood and affect 01/18/2018 None Full Exam - General 1994 Lymphatic neck nodes Overall: anterior cervical chain benign 01/18/2018 None Full Exam - General 1994 Lymphatic neck nodes Overall: posterior cervical chain benign 01/18/2018 None Full Exam - General 1994 Constitutional general appearance Overall: well developed 12/21/2017 None Full Exam - General 1994 Constitutional general appearance Overall: in no acute distress 12/21/2017 None Full Exam - General 1994 Constitutional general appearance Overall: well nourished 12/21/2017 None Full Exam - General 1994 Constitutional general appearance Hygiene/Attention to Grooming: good hygiene 12/21/2017 None Full Exam - General 1994 Eyes conjunctiva /eyelids Overall: conjunctiva clear 12/21/2017 None Full Exam - General 1994 Eyes conjunctiva /eyelids Overall: cornea clear 12/21/2017 None Full Exam - General 1994 Eyes conjunctiva /eyelids Overall: eyelids normal 12/21/2017 None Full Exam - General 1994 Eyes pupils and irises Overall: pupils equal, round, reactive to light and accomodation 12/21/2017 None Full Exam - General 1994 Ears/Nose/Throat otoscopic exam Overall: external auditory canals clear 12/21/2017 None Full Exam - General 1994 Ears/Nose/Throat otoscopic exam Overall: tympanic membranes clear 12/21/2017 None Full Exam - General 1994 Ears/Nose/Throat lips/teeth/gingiva Overall: benign lips 12/21/2017 None Full Exam - General 1994 Ears/Nose/Throat oral cavity/pharynx/larynx Overall: oral mucosa clear 12/21/2017 None Full Exam - General 1994 Ears/Nose/Throat oral cavity/pharynx/larynx Overall: oropharyngeal mucosa clear 12/21/2017 None Full Exam - General 1994 Respiratory auscultation Overall: breath sounds clear bilaterally 12/21/2017 None Full Exam - General 1994 Respiratory respiratory effort/rhythm Overall: no retractions 12/21/2017 None Full Exam - General 1994 Respiratory respiratory effort/rhythm Overall: normal rate 12/21/2017 None Full Exam - General 1994 Cardiovascular auscultation of heart Overall: regular rate 12/21/2017 None Full Exam - General 1994 Cardiovascular auscultation of heart Overall: normal heart sounds 12/21/2017 None Full Exam - General 1994 Abdomen abdominal exam Overall: no tenderness 12/21/2017 None Full Exam - General 1994 Abdomen abdominal exam Overall: normal bowel sounds 12/21/2017 None Full Exam - General 1994 Neurologic cranial nerves Overall: crainial nerves 2 - 12 grossly intact 12/21/2017 None Full Exam - General 1994 Psychiatric orientation/consciousness Overall: oriented to person, place and time 12/21/2017 None Full Exam - General 1994 Psychiatric mood and affect Overall: normal mood and affect 12/21/2017 None Full Exam - General 1994 Constitutional [...] accomodation 09/20/2016 None Full Exam - General 1995 Ears/Nose/Throat otoscopic exam Overall: external auditory canals clear 09/20/2016 None Full Exam - General 1995 Ears/Nose/Throat otoscopic exam Overall: tympanic membranes clear 09/20/2016 None Full Exam - General 1995 Ears/Nose/Throat lips/teeth/gingiva Overall: benign lips 09/20/2016 None Full Exam - General 1995 Ears/Nose/Throat lips/teeth/gingiva Overall: normal dentition 09/20/2016 None Full Exam - General 1995 Ears/Nose/Throat oral cavity/pharynx/larynx Overall: oral mucosa clear 09/20/2016 None Full Exam - General 1995 Ears/Nose/Throat oral cavity/pharynx/larynx Overall: oropharyngeal mucosa clear 09/20/2016 None Full Exam - General 1995 Ears/Nose/Throat oral cavity/pharynx/larynx Overall: hypopharynx benign 09/20/2016 [...] affect 05/04/2015 None Procedures Procedure Codes Date DRAIN/INJECT JOINT/BURSA CPT-4: 13680 04/12/2018 TRIAMCINOLONE ACET INJ NOS CPT-4: J3301 04/12/2018 PPPS, SUBSEQ VISIT CPT -4: G0439 02/22/2018 ADMIN INFLUENZA VIRUS VAC CPT-4: G0008 06/02/2016 FLU VACC PRSV FREE INC ANTIG CPT-4: 40524 06/02/2016 Vital Signs Date Vital 05/02/2018 Blood Pressure 1: 178/76 Code : 8480-6 BMI: 24.7 Code : 66855-4 Heart Rate 1 : 72 bpm Height: 4'8" SpO2: 98% Weight: 110 lbs 04/27/2018 Blood Pressure 1: 164/78 Code : 8480-6 BMI: 24.7 Code : 18862-9 Heart Rate 1 : 69 bpm Height: 4'8" SpO2: 97% Weight: 110 lbs 04/20/2018 Blood Pressure 1: 140/80 Code : 8480-6 BMI: 24.7 Code : 08348-4 Heart Rate 1 : 83 bpm Height: 4'8" SpO2: 97% Weight: 110 lbs 04/12/2018 Blood Pressure 1: 146/78 Code : 8480-6 Heart Rate 1: 68 bpm Height: SpO2: 98% Weight: 04/10/2018 Blood Pressure 1: 146/60 Code : 8480-6 BMI: 24.7 Code : 04736-7 Heart Rate 1 : 60 bpm Height: 4'8" SpO2: 95% Weight: 110 lbs 04/03/2018 Blood Pressure 1: 204/80 Code : 8480-6 BMI: 24.9 Code : 79752-3 Heart Rate 1 : 62 bpm Height: 4'8" SpO2: 98% Weight: 111 lbs 03/13/2018 Blood Pressure 1: 140/68 Code : 8480-6 BMI: 25.6 Code : 99592-9 Heart Rate 1 : 68 bpm Height: 4'8" SpO2: 95% Weight: 114 lbs 02/22/2018 Blood Pressure 1: 166/88 Code : 8480-6 BMI: 24.7 Code : 48384-4 Heart Rate 1 : 72 bpm Height: 4'8" SpO2: 95% Weight: 110 lbs 02/01/2018 Blood Pressure 1: 162/70 Code : 8480-6 BMI: 23.2 Code : 16617-9 Heart Rate 1 : 64 bpm Height: 4'11" SpO2: 95% Weight: 115 lbs 01/18/2018 Blood Pressure 1: 192/86 Code : 8480-6 BMI: 22.6 Code : 94428-9 Heart Rate 1 : 68 bpm Height: 4'11" SpO2: 94% Weight: 112 lbs 12/21/2017 Blood Pressure 1: 110/52 Code : 8480-6 BMI: 23.0 Code : 32726-7 Heart Rate 1 : 58 bpm Height: 4'11" SpO2: 94% Weight: 114 lbs 10/10/2017 Blood Pressure 1: 168/78 Code : 8480-6 BMI: 23.0 Code : 32165-9 Heart Rate 1 : 54 bpm Height: 4'11" SpO2: 98% Weight: 114 lbs 09/07/2017 Blood Pressure 1: 142/72 Code : 8480-6 Heart Rate 1: 84 bpm Height: 4'11" SpO2: 97% Weight: 08/30/2017 Blood Pressure 1: 188/82 Code : 8480-6 BMI: 24.4 Code : 65561-8 Heart Rate 1 : 79 bpm Height: 4'11" SpO2: 88% Temperature: 38.5 (C) / 101.3 (F) Weight: 121 lbs 08/15/2017 Blood Pressure 1: 166/78 Code : 8480-6 BMI: 22.8 Code : 98132-4 Heart Rate 1 : 71 bpm Height: 4'11" SpO2: 96% Weight: 113 lbs 06/15/2017 Blood Pressure 1: 138/68 Code : 8480-6 BMI: 22.8 Code : 65567-4 Heart Rate 1 : 54 bpm Height: 4'11" SpO2: 98% Weight: 113 lbs 05/29/2017 Blood Pressure 1: 96/46 Code : 8480-6 Blood Pressure 2: 116/57 Code: 8480-6 Heart Rate 1: 54 bpm 05/11/2017 Blood Pressure 1: 144/60 Code : 8480-6 BMI: 23.8 Code : 91700-8 Heart Rate 1 : 68 bpm Height: 4'11" SpO2: 97% Weight: 118 lbs 01/05/2017 Blood Pressure 1: 134/72 Code : 8480-6 BMI: 24.8 Code : 19394-9 Heart Rate 1 : 64 bpm Height: 4'11" SpO2: 94% Weight: 123 lbs 09/20/2016 Blood Pressure 1: 148/66 Code : 8480-6 BMI: 25.4 Code : 00784-3 Heart Rate 1 : 68 bpm Height: 4'11" SpO2: 97% Weight: 126 lbs 09/01/2016 Blood Pressure 1: 162/80 Code : 8480-6 BMI: 26.1 Code : 68422-5 Heart Rate 1 : 75 bpm Height: 4'11" SpO2: 95% Weight: 129 lbs 06/02/2016 Blood Pressure 1: 144/82 Code : 8480-6 BMI: 25.4 Code : 86210-0 Heart Rate 1 : 68 bpm Height: 4'11" SpO2: 98% Weight: 126 lbs 03/25/2016 Blood Pressure 1: 140/58 Code : 8480-6 BMI: 25.9 Code : 51605-5 Heart Rate 1 : 58 bpm Height: 4'11" SpO2: 95% Weight: 128 lbs 01/26/2016 Blood Pressure 1: 138/68 Code : 8480-6 BMI: 26.3 Code : 45707-6 Heart Rate 1 : 66 bpm Height: 4'11" SpO2: 96% Weight: 130 lbs 10/29/2015 Blood Pressure 1: 180/78 Code : 8480-6 BMI: 25.7 Code : 50420-2 Heart Rate 1 : 74 bpm Height: 4'11" SpO2: 97% Weight: 127 lbs 07/21/2015 Blood Pressure 1: 136/70 Code : 8480-6 BMI: 25.9 Code : 74367-6 Heart Rate 1 : 63 bpm Height: 4'11" SpO2: 95% Weight: 128 lbs 07/08/2015 Blood Pressure 1: 140/70 Code : 8480-6 BMI: 26.5 Code : 44889-4 Heart Rate 1 : 59 bpm Height: 4'11" SpO2: 94% Weight: 131 lbs 5 oz 05/04/2015 Blood Pressure 1: 140/60 Code : 8480-6 BMI: 25.7 Code : 02649-8 Heart Rate 1 : 60 bpm Height: 4'11" SpO2: 94% Weight: 127 lbs Functional Status No Functional Status data History of Present Illness Symptom Name Status Result Effective Date Notes vision change Location on the right eye 05/02/2018 None vision change Quality diplopia 05/02/2018 None vision change Onset and Resolution sudden in onset 05/02/2018 None vision change Limitation on Activities moderately limits activities 05/02/2018 None vision change Pertinent Findings dizziness 05/02/2018 None vision change Quality constant 05/02/2018 None vision change Onset of Symptom 13 days ago 05/02/2018 None vision change Triggers no known associated factors 05/02/2018 None leg pain/sciatica Location left leg sciatica 05/02/2018 None leg pain/sciatica Onset and Resolution ongoing 05/02/2018 None leg pain/sciatica Onset of Symptom months ago 05/02/2018 None leg pain/sciatica Limitation on Activities allows weight bearing activity 05/02/2018 None leg pain/sciatica Frequency of Episodes daily 05/02/2018 None leg pain/sciatica Mechanism of injury unknown 05/02/2018 None leg pain/sciatica Location left paralumbar 04/27/2018 None leg pain/sciatica Location right paralumbar 04/27/2018 None leg pain/sciatica Location left leg sciatica 04/27/2018 None leg pain/sciatica Radiating the left buttock 04/27/2018 None leg pain/sciatica Radiating the right buttock 04/27/2018 None leg pain/sciatica Quality worsening 04/27/2018 None leg pain/sciatica Onset and Resolution ongoing 04/27/2018 None vision change Location on the right eye 04/20/2018 None vision change Quality intermittent 04/20/2018 None vision change Quality diplopia 04/20/2018 None vision change Onset and Resolution sudden in onset 04/20/2018 None vision change Limitation on Activities moderately limits activities 04/20/2018 None vision change Pertinent Findings dizziness 04/20/2018 None vision change Pertinent Findings Denies lightheadedness 04/20/2018 None sciatica Location on the left 04/12/2018 None sciatica Quality acute 04/12/2018 None sciatica Quality worsening 04/12/2018 None sciatica Limitation on Activities is incapacitating 04/12/2018 None sciatica Pertinent Findings Denies fever 04/12/2018 None myalgias Location on both legs 04/10/2018 None myalgias Quality cramping 04/10/2018 None myalgias Quality acute 04/10/2018 None myalgias Quality intermittent 04/10/2018 None myalgias Quality worsening 04/10/2018 None myalgias Onset and Resolution ongoing 04/10/2018 None myalgias Onset of Symptom 3 weeks ago 04/10/2018 None myalgias Frequency of Episodes daily 04/10/2018 None myalgias Frequency of Episodes increasing 04/10/2018 None myalgias Timing of Episodes at night 04/10/2018 None myalgias Timing of Episodes during sleep 04/10/2018 None myalgias Significant Medical Conditions hypertension 04/10/2018 None myalgias Triggers no known associated factors 04/10/2018 None hypertension Quality chronic 04/10/2018 None hypertension Quality primary hypertension 04/10/2018 None hypertension Onset and Resolution ongoing 04/10/2018 None hypertension Onset of Symptom during adulthood 04/10/2018 None hypertension Blood Pressure Values patient checking blood pressure at home - did not bring in readings 04/10/2018 None hypertension Alleviating Factors medication 04/10/2018 None hypertension Quality primary hypertension 04/03/2018 None hypertension Onset and Resolution ongoing 04/03/2018 None hypertension Onset of Symptom during adulthood 04/03/2018 None hypertension Blood Pressure Values patient checking blood pressure at home - did not bring in readings 04/03/2018 None hypertension Quality chronic 04/03/2018 None hypertension Alleviating Factors medication 04/03/2018 None myalgias Location on both legs 04/03/2018 None myalgias Quality acute 04/03/2018 None myalgias Quality cramping 04/03/2018 None myalgias Quality intermittent 04/03/2018 None myalgias Onset and Resolution ongoing 04/03/2018 None myalgias Onset of Symptom 3 weeks ago 04/03/2018 None myalgias Frequency of Episodes daily 04/03/2018 None myalgias Timing of Episodes at night 04/03/2018 None myalgias Timing of Episodes during sleep 04/03/2018 None myalgias Significant Medical Conditions hypertension 04/03/2018 None myalgias Triggers no known associated factors 04/03/2018 None myalgias Quality worsening 04/03/2018 None myalgias Frequency of Episodes increasing 04/03/2018 None Hospital Follow Up _ Other: 03/13/2018 increased blood sugar Hospital Follow Up Quality intermittent 03/13/2018 None Hospital Follow Up Onset of Symptom 2 weeks ago 03/13/2018 None Hospital Follow Up Pertinent Findings Denies pain 03/13/2018 None Annual Medicare Wellness Exam Alcohol Use drinks occasional days per week 02/22/2018 1-2 per month -rum Annual Medicare Wellness Exam Aspirin Use yes 02/22/2018 baby aspirin Annual Medicare Wellness Exam Blood Glucose (self reported) high (126 or higher) 02/22/2018 None Annual Medicare Wellness Exam Blood Pressure (self reported ) high (140/90 or higher) 02/22/2018 None Annual Medicare Wellness Exam Cholesterol (self reported) desireable (below 200) 02/22/2018 None Annual Medicare Wellness Exam Depression (last 6 months) almost never 02/22/2018 None Annual Medicare Wellness Exam Depression or Hopelessness almost never 02/22/2018 None Annual Medicare Wellness Exam Describe Your Health fair 02/22/2018 None Annual Medicare Wellness Exam Exercise Habits exercises 3 days per week 02/22/2018 None Annual Medicare Wellness Exam Handling Stress usually robb effectively 02/22/2018 None Annual Medicare Wellness Exam Hemaglobin A-1C (self reported ) borderline high (7) 02/22/2018 unsure of what it was Annual Medicare Wellness Exam Interaction with Friends yes 02/22/2018 mostly with daughters Annual Medicare Wellness Exam Interests & Pleasure most of the time 02/22/2018 None Annual Medicare Wellness Exam Life Satisfaction satisfied 02/22/2018 None Annual Medicare Wellness Exam Hours of Sleep 8 02/22/2018 None Annual Medicare Wellness Exam Smoking and Tobacco Use non smoker 02/22/2018 None Annual Medicare Wellness Exam Social & Emotional Support always 02/22/2018 None Annual Medicare Wellness Exam Nutrition servings of vegetables / fruit per day: 1 02/22/2018 None Annual Medicare Wellness Exam Nutrition servings of high fiber / whole grain per day: 2 02/22/2018 None Annual Medicare Wellness Exam Nutrition servings of fried food / high fat foods per day: 0 2017 occasoinally Annual Medicare Wellness Exam Motor Vehicle Safety always fastens seat belt: usually 02/22/2018 None Annual Medicare Wellness Exam Stress some of the time 02/22/2018 None diabetes mellitus Onset of Symptom onset as an adult 02/01/2018 None hypertension Quality chronic 02/01/2018 None hypertension Quality worsening 02/01/2018 None hypertension Onset and Resolution ongoing 02/01/2018 None hypertension Onset of Symptom during adulthood 02/01/2018 None hypertension Blood Pressure Values Stage 2:SBP 160-179 mmHg / DBP 100-109 mmHg 02/01/2018 None hypertension Severity not consistently severe symptoms, the symptoms fluctuate from no symptoms to anxiety and headaches 02/01/2018 None hypertension Triggers stress 02/01/2018 None hypertension Pertinent Findings Denies dyspnea 02/01/2018 None diabetes mellitus Quality insulin dependent 02/01/2018 None diabetes mellitus Severity moderate 02/01/2018 None diabetes mellitus Blood glucose levels greater than 120 02/01/2018 None diabetes mellitus Glucose monitoring daily 02/01/2018 continuous monitor Hospital Follow Up _ pain 01/18/2018 None Hospital Follow Up _ Other: _ 01/18/2018 None Hospital Follow Up Quality acute illness 01/18/2018 TIA and hypoglycemia Hospital Follow Up Onset of Symptom 1 weeks ago 01/18/2018 None Hospital Follow Up Onset and Resolution sudden in onset 01/18/2018 None diabetes mellitus Onset of Symptom onset as an adult 01/18/2018 None hypertension Quality chronic 01/18/2018 None hypertension Quality worsening 01/18/2018 None hypertension Onset and Resolution ongoing 01/18/2018 None hypertension Onset of Symptom during adulthood 01/18/2018 None hypertension Blood Pressure Values Stage 2:SBP 160-179 mmHg / DBP 100-109 mmHg 01/18/2018 None hypertension Severity not consistently severe symptoms, the symptoms fluctuate from no symptoms to anxiety and headaches 01/18/2018 None hypertension Triggers stress 01/18/2018 None hypertension Pertinent Findings Denies dyspnea 01/18/2018 None Hospital Follow Up _ Other: _ 12/21/2017 None Hospital Follow Up _ pain 12/21/2017 None Hospital Follow Up Onset of Symptom 1 weeks ago 12/21/2017 None Hospital Follow Up Onset and Resolution sudden in onset 12/21/2017 None Hospital Follow Up Quality acute illness 12/21/2017 TIA and hypoglycemia hypertension Quality chronic 12/21/2017 None hypertension Quality chronic 10/10/2017 None hypertension Quality [...] Present Encounters Encounter Performer Location Codes Date ([id number]) 24091 EST. 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 PATIENT, LEVEL III Diagnosis: Low back pain[ICD10: M54.5] Elizabeth Sow MD, [facility] CPT-4 : 32101 04/27/2018 ([id number]) 32615 EST. PATIENT, LEVEL IV Diagnosis: Diplopia[ICD10: H53.2] Diagnosis: Rash and other nonspecific skin eruption[ICD10: R21] Diagnosis: Type 2 diabetes mellitus with hyperglycemia[ICD10: E11.65] Laney Sow MD, [facility] CPT-4: 48625 04/20/2018 ([id number]) 21316 EST. PATIENT, LEVEL III Diagnosis: Low back pain[ICD10: M54.5] Elizabeth Sow MD, [facility] CPT-4 : 82154 04/12/2018 ([id number]) 00525 EST. PATIENT, LEVEL III Diagnosis: Essential (primary) hypertension[ICD10: I10] Diagnosis: Type 2 diabetes mellitus with hyperglycemia[ICD10: E11.65] Kate Sow MD , [facility] CPT-4: 58110 04/10/2018 ([id number]) 36215 EST. PATIENT, LEVEL III Diagnosis: Lumbago with sciatica, left side[ICD10: M54.42] Diagnosis: Essential (primary) hypertension[ICD10: I10] Laney Sow MD, [facility] CPT-4: 21965 04/03/2018 ([id number]) 24623 EST. PATIENT, LEVEL IV Diagnosis: Type 2 diabetes mellitus with hyperglycemia[ICD10: E11.65] Diagnosis: Essential (primary) hypertension[ICD10: I10] Kate Sow MD, [facility] CPT-4: 96594 03/13/2018 ([id number]) 96066 EST. PATIENT, LEVEL IV Diagnosis: Essential (primary) hypertension[ICD10: I10] Diagnosis: Type 2 diabetes mellitus with hyperglycemia[ICD10: E11.65] Kate Sow MD , [facility] CPT-4: 79882 02/01/2018 ([id number]) 08125 EST. PATIENT, LEVEL IV Diagnosis: Type 2 diabetes mellitus with hyperglycemia[ICD10: E11.65] Diagnosis: Essential (primary) hypertension[ICD10: I10] Kate Sow MD, [facility] CPT-4: 84866 01/18/2018 ([id number]) Miscellaneous no charge Diagnosis: Type 2 diabetes mellitus with hyperglycemia[ICD10: E11.65] Elizabeth Sow MD, [facility] CPT-4: 39810 12/22/2017 ([id number]) 23182 EST. PATIENT, LEVEL IV Diagnosis: Type 2 diabetes mellitus with hyperglycemia[ICD10: E11.65] Diagnosis: Essential (primary) hypertension[ICD10: I10] Diagnosis: Muscle weakness (generalized)[ICD10: M62.81] Kate Sow MD, [facility] CPT-4: 53156 12/21/2017 66925 EST. PATIENT, LEVEL IV Diagnosis: Type 2 diabetes mellitus without complications[ICD10: E11.9] Diagnosis: Mixed hyperlipidemia[ICD10: E78.2] Diagnosis: Essential (primary) hypertension[ICD10: I10] Elizabeth Sow MD, [facility] CPT-4: 29651 10/10/2017 81149 EST. PATIENT, LEVEL III Diagnosis: Weakness[ICD10: R53.1] Diagnosis: Essential (primary) hypertension[ICD10: I10] Elizabeth Sow MD, [facility] CPT-4: 14697 09/07/2017 51986 EST. PATIENT, LEVEL III Diagnosis: Encounter for follow-up examination after completed treatment for conditions other than malignant neoplasm[ICD10: Z09] Diagnosis: Weakness[ICD10: R53.1] Diagnosis: Essential (primary) hypertension[ICD10: I10] Diagnosis: Dyspnea, unspecified[ICD10: R06.00] Diagnosis: Unsteadiness on feet[ICD10: R26.81] Elizabeth Swo MD, [facility] CPT-4: 65829 08/30/2017 ([id number]) 22693 EST. PATIENT, LEVEL IV Diagnosis: Type 2 diabetes mellitus without complications[ICD10: E11.9] Diagnosis: Essential (primary) hypertension[ICD10: I10] Kate Sow MD, [facility] CPT-4: 93849 08/15/2017 ([id number]) 32973 EST. PATIENT, LEVEL IV Diagnosis: Type 2 diabetes mellitus without complications[ICD10: E11.9] Diagnosis: Essential (primary) hypertension[ICD10: I10] Diagnosis: Unsteadiness on feet[ICD10: R26.81] Kate Sow MD, [facility] CPT-4: 74515 06/15/2017 ([id number]) Miscellaneous no charge Diagnosis: Essential (primary) hypertension[ICD10: I10] Laney Sow MD, [facility] CPT-4: 56697 05/29/2017 ([id number]) 21568 EST. PATIENT, LEVEL IV Diagnosis: Type 2 diabetes mellitus without complications[ICD10: E11.9] Diagnosis: Essential (primary) hypertension[ICD10: I10] Diagnosis: Mixed hyperlipidemia[ICD10: E78.2] Kate Sow MD, [facility] CPT-4: 01299 05/11/2017 ([id number]) 15512 EST. PATIENT, LEVEL IV Diagnosis: Type 2 diabetes mellitus without complications[ICD10: E11.9] Diagnosis: Essential (primary) hypertension[ICD10: I10] Kate Sow MD, [facility] CPT-4: 56160 01/05/2017 ([id number]) 56369 EST. PATIENT, LEVEL III Diagnosis: Essential (primary) hypertension[ICD10: I10] Kate Sow MD, [facility] CPT-4: 59708 09/20/2016 ([id number]) 34720 EST. PATIENT, LEVEL III Diagnosis: Essential (primary) hypertension[ICD10: I10] Laney Sow MD, [facility] CPT-4: 04163 09/01/2016 ([id number]) Miscellaneous no charge Diagnosis: Impacted cerumen, right ear[ICD10: H61.21] Elizabeth Sow MD, [facility] CPT-4: 27038 06/08/2016 ([id number]) 93008 EST. PATIENT, LEVEL IV Diagnosis: Type 2 diabetes mellitus without complications[ICD10: E11.9] Diagnosis: Essential (primary) hypertension[ICD10: I10] Diagnosis: Encounter for immunization[ICD10: Z23] Kate Sow MD, [facility] CPT-4: 00708 06/02/2016 20673 EST. PATIENT, LEVEL III Diagnosis: Essential (primary) hypertension[ICD10: I10] Diagnosis: Other specified cardiac arrhythmias[ICD10: I49.8] Elizabeth Sow MD, [facility] CPT-4: 65158 03/25/2016 ([id number]) 86813 EST. PATIENT, LEVEL IV Diagnosis: Type 2 diabetes mellitus without complications[ICD10: E11.9] Diagnosis: Essential (primary) hypertension[ICD10: I10] Kate Sow MD, [facility] CPT-4: 99097 01/26/2016 ([id number]) 67730 EST. PATIENT, LEVEL IV Diagnosis: Essential (primary) hypertension[ICD10: I10] Diagnosis: Type 2 diabetes mellitus without complications[ICD10: E11.9] Kate Sow MD, [facility] CPT-4: 05775 10/29/2015 ([id number]) 78526 EST. PATIENT, LEVEL IV Diagnosis: Essential (primary) hypertension[ICD10: I10] Diagnosis: Dyspnea, unspecified[ICD10: R06.00] [facility] CPT-4: 45162 07/21/2015 ([id number]) 58866 EST. PATIENT, LEVEL III Diagnosis: Edema, unspecified[ICD10: R60.9] [facility] CPT-4: 57679 07/08/2015 ([id number]) OFFICE VISIT, NEW - LEVEL 4 Diagnosis: ESSENTIAL HYPERTENSION[ICD9: 401.9] Diagnosis: DIABETES TYPE II[ICD9: 250.00] [facility] CPT- 4: 64663 05/04/2015 Plan of Care Planned Activity Notes Codes Status Date Visit Plan: Uncontrolled DM - pt has been taking her insulin after she eats - I have advised Chery to take the humalog at the beginning of her meals - NOT after the meals. Lumbar disc disease with inflammation and muscle spasms - RX for cyclobenzaprine - muscle relaxer - send to the pharmacy. - Pt is to take 1/2 of a pill at night and then she may take it up to twice a day - this will help to alleviate some of the spasming of the back allowing her to sleep better. 05/02/2018 Patient Education: Patient Medication Summary Completed 05/02/2018 Care Plan: X-RAY EXAM L-S SPINE 10/21 [facility] LOINC : 71653-3 Pending 05/02/2018 Visit Plan: Low back pain- the patient was instructed in appropriate posture - The pt is to use prn antiinflammatories to manage acute pain. The patient is to call the office if the pain is worsening or does not improve. 04/27/2018 App[facility]ment[phone] [facility] (15 min) Moderate 04/27/2018 Patient Education: Patient Medication Summary Completed 04/27/2018 Visit Plan: Double vision-suspect due to elevated blood sugars -recommend patient bring in log of blood sugars to next appt -notify training technician of elevated readings and watch diet closely -also recommend f/u with eye doctor Rash-suspect shingles-rx for acyclovir provided and instructed on use 04/20/2018 Appointment: [facility] [phone] [phone] [place] (15 min) Moderate 04/20/2018 Patient Education: Patient Medication Summary Completed 04/20/2018 Appointment: Nurse Visit 04/16/2018 Visit Plan: Joint Injection - Pt was given post - injection instructions. The pt has been advised to use anti-inflammatories post injection today, ice to the injected site, call if redness, warmth, or increased pain occurs at the site of injection. Sciatica- exercises discussed with the patient, pt to continue with antiinflammatories. Pt is to call if the symptoms do not improve or if they worsen. 04/12/2018 Visit Plan: Joint Injection - Pt was given post - injection instructions. The pt has been advised to use anti-inflammatories post injection today, ice to the injected site, call if redness, warmth, or increased pain occurs at the site of injection. Sciatica- exercises discussed with the patient, pt to continue with antiinflammatories. Pt is to call if the symptoms do not improve or if they worsen. 04/12/2018 Appointment: Elizabeth Milner WPtel: [facility] (15 min) Moderate 04/12/2018 Patient Education: Patient Medication Summary Completed 04/12/2018 Visit Plan: Hypertension - well controlled - [...] readings are starting to become less controlled. 04/10/2018 Appointment: Kate Sow WPtel: [facility]9 [facility] (15 min) Moderate 04/10/2018 Patient Education: Patient Medication Summary Completed 04/10/2018 Visit Plan: Sciatica- exercises discussed with the patient- refer for PT to evaluate and treat. Pt is to call if the symptoms do not improve or if they worsen. Hypertension - uncontrolled - the patient's medications [...] pt is to call for acute concerns. 04/03/2018 Appointment: [facility] Mc[facility] [phone] [phone] [place] (15 min) Moderate 04/03/2018 Patient Education: Patient Medication Summary Completed 04/03/2018 Appointment: Nurse Visit 03/19/2018 Appointment: Nurse Visit 03/16/2018 Visit Plan: Diabetes Mellitus - Uncontrolled - [...] to allow for greater blood glucose control. increase toujeo to 20 units. Hypertension - well controlled - continue with current medications, continue with no added salt diet. Pt has been encouraged to exercise daily. The pt has been advised to call the office if there are any acute concerns about change in blood pressure readings at home. 03/13/2018 Appointment: [facility]el[facility] [phone] [id number] [place] (15 min) Moderate 03/13/2018 Patient Education: Patient Medication Summary Completed 03/13/2018 Visit Plan: Medicare Exam - today we discussed the patients past history, immunizations, preventative exams/evaluations - colonoscopy, fecal occult blood testing, routine labs for renal function, glucose, cholesterol, osteoporosis evaluations, cardiovascular testing and cancer screenings. We have also discussed mental health and the signs/symptoms of depression. The patient was advised of home safety evaluations and the need to make sure that as the aging process continues, we need to be aware of different ways to make the home a safer place to reside. The patient has also been counseled that exercise is necessary - and of utmost importance as we age to help decrease fall risk and to maintain independence in the home. Today we discussed the need for the patient to create paperwork for Advanced directives as well as for the patient to provide this office with a copy of her DOPA paperwork for health care surrogate. 02/22/2018 Patient Education: Patient Medication Summary Completed 02/22/2018 Appointment: Nurse Visit 02/05/2018 Visit Plan: Hypertension - not yet optimally controlled - however we will not change medications today. She has been advised to cut out extra salt in her diet. DM - will bring back glucose monitor for download next Monday. Continue with diabetic diet. 02/01/2018 Appointment: Kate Sow [facility]el[facility] [phone] [facility] (15 min) Moderate 02/01/2018 Patient Education: Patient Medication Summary Completed 02/01/2018 Visit Plan: Diabetes Mellitus - uncontrolled -per her Daughter's report - she states that she has not been eating correctly. I have recommended for the patient to have follow up labs prior to the next office visit. The patient has been instructed to continue with current medications as previously directed, continue with regular FSBS monitoring to assure continued control of diabetes. Pt to call for any acute concerns, complaints, or if the blood glucose readings are starting to become less controlled. Hypertension - uncontrolled - the patient's medications [...] pt is to call for acute concerns. use the losartan 50mg - give her a dose when she gets home. then increase the losartan 100mg daily. 01/18/2018 Appointment: [facility]ow [facility]el: [phone] [facility] [place] (15 min) Moderate 01/18/2018 Patient Education: Patient Medication Summary Completed 01/18/2018 Appointment: Kate Sow [facility]Ptel: [phone] [facility] [place] (15 min) Moderate 01/11/2018 Appointment: Kate Sow [facility]Ptel: [phone] [facility] [place] (15 min) Moderate 12/25/2017 Visit Plan: Diabetes Mellitus - Uncontrolled - [...] to allow for greater blood glucose control. Pt is to decrease toujeo to 13 units. If her blood sugars are still dropping and she is symptomatic she is to decrease it to 10 units. Pt is to update clinic with her blood sugars and how she is feeling on Monday. 12/22/2017 Appointment: Nurse Visit 12/22/2017 Patient Education: Patient Medication Summary Completed 12/22/2017 Visit Plan: Diabetes Mellitus - I have recommended for [...] to allow for greater blood glucose control. Pt has continuous glucose monitor - I placed monitor on patient today in clinic and reviewed use with the pt and her dtr. toujeo at 15 units Hypertension - well controlled - continue with current medications, continue with no added salt diet. Pt has been encouraged to exercise daily. The pt has been advised to call the office if there are any acute concerns about change in blood pressure readings at home. Generalized weakness - physical therapy at [facility] out 12/21/2017 Appointment: Kate Sow WPtel: [facility] [place] (15 min) Moderate 12/21/2017 Patient Education: Patient Medication Summary Completed 12/21/2017 Appointment: Kate Sow WPtel: [phone] [facility] (15 min) Moderate 12/13/2017 Visit Plan: Hypertension - uncontrolled - the [...] allow for greater blood glucose control. 10/10/2017 [facility]ment[phone] (15 min) Moderate 10/10/2017 Patient Education: Patient [...] home. 09/07/2017 Appointment: [facility]el[phone] [facility] [place] (30 min) Complex 09/07/2017 Patient Education: Patient Medication Summary Completed 09/07/2017 Appointment: Kate Sow WPtel: [phone] [facility] (15 min) Moderate 09/05/2017 Visit Plan: Hospital follow up - Dr. Sow in to see pt - pt was in the hospital with uncontrolled hypertension and a. fib - controlled at this time - persistent weakness requiring ongoing PT and assistance with some ADLs and medication management - [facility]. 08/30/2017 App[facility]ment: [facility]el[phone] [facility] (30 min) Complex 08/30/2017 Patient Education: Patient Medication Summary Completed 08/30/2017 Appointment: Elizabeth Milner WPtel: [phone] [facility] (15 min) Moderate 08/29/2017 Visit Plan: Diabetes [...] at home. 08/15/2017 Appointment: Kate Sow [facility]Ptel: [phone] [facility] (15 min) Moderate 08/15/2017 Patient Education: Patient Medication Summary Completed 08/15/2017 Care Plan: %Hba1C LOINC : 44549-1 Cancelled 08/15/2017 [phone] Patient's informed. Completed 06/26/2017 Visit Plan: [...] glucose control. Gait Instability - referral to [facility] physical therapy for gait instability. Hypertension - well controlled - continue with current medications , continue with no added salt diet. Pt has been encouraged to exercise daily. The pt has been advised to call the office if there are any acute concerns about change in blood pressure readings at home. 06/15/2017 Appointment: Kate Sow WPtel: [facility] (15 min) Moderate 06/15/2017 Patient Education: Patient Medication Summary Completed 06/15/2017 Care Plan: Referral Order SNOMED-CT : [id number] Pending 06/15/2017 Appointment: Nurse Visit 05/29/2017 Patient [...] and come in here or go to [facility] or [facility] to get this set of labs [...] Statin 05/11/2017 Appointment: Kate Sow WPtel: [phone] [facility] (15 min) Moderate 05/11/2017 Patient Education: [...] pill daily. 01/05/2017 Appointment: Kate Sow [facility]Ptel: [phone] [facility] (15 min) Moderate 01/05/2017 Patient Education: [...] at home. 09/20/2016 Appointment: Kate Sow WPtel: [phone] [facility] (30 min) Complex 09/20/2016 Patient Education: Patient [...] concerns. 09/01/2016 Appointment: Laney Mcmillan WPtel: [phone] [phone] (30 min) Complex 09/01/2016 Patient Education: Patient Medication Summary Completed 09/01/2016 Appointment: Kate Sow WPtel: [phone] [facility] (15 min) Moderate 08/31/2016 Appointment: Nurse [...] controlled. 06/02/2016 Appointment: Kate Sow WPtel: [phone] [facility] [place] (15 min) Moderate 06/02/2016 Patient Education: Patient Medication Summary Completed 06/02/2016 Patient Education: Hypertension Completed 06/02/2016 Visit Plan: Bradycardia - reports pt has brought in indicates that the pt has been having a pulse in the 40s-50s. Will adjust medications, pt is to notify clinic if her symptoms do not improve, or with any concerns. 03/25/2016 Appointment: Laney Mcmillan WPtel: [phone] [phone] (10 min) Simple 03/25/2016 Patient Education: Patient [...] DM - managed by Dr. Johnson from [place] 01/26/2016 Patient Education: Patient Medication Summary Completed 01/26/2016 Patient Education: Hypertension Completed 01/26/2016 Appointment: Laney Mcmillan WPtel: [phone] [phone] (30 min) Complex 12/31/2015 Visit Plan: Hypertension [...] controlled. 10/29/2015 Appointment: Kate Sow [facility]Ptel: [phone] [facility] (15 min) Moderate 10/29/2015 Patient Education: Patient Medication Summary Completed 10/29/2015 Patient Education: Hypertension Completed 10/29/2015 Appointment: Kate Sow WPtel: [phone] [facility] (15 min) Moderate 09/14/2015 Visit Plan: [...] today, as soon as you get to [place], monday morning, then start taking the lasix [...] handout Begin using muscle rub on back ([place] balm) 05/04/2015 Appointment: Kate Sow WPtel: [phone] [facility] [place] (S) New Patient 05/04/2015 Patient Education: Patient Medication Summary Completed 05/04/2015 Patient Education: Hypertension Completed 05/04/2015 Referral: [phone] [facility] [place] Referral Appointment Requested Instructions Comment see if Dr. Johnson has the toujeo samples for you - if not , go to the pharmacy to pickle maker the toujeo script. if the toujeo script [...] glucose control. Gait Instability - referral to [facility] physical therapy for gait instability. Hypertension - well controlled - continue with current medications, continue with no added salt diet. Pt has been encouraged to exercise daily. The pt has been advised to call the office if there are any acute concerns about change in blood pressure readings at home. . Hypertension - not yet optimally controlled - however we will not change medications today. She has been advised to cut out extra salt in her diet. DM - will bring back glucose monitor for download next Monday. Continue with diabetic diet. . Hypertension - well controlled - continue [...] readings are starting to become less controlled. . Diabetes Mellitus - I have recommended for [...] to allow for greater blood glucose control. Pt has continuous glucose monitor - I placed monitor on patient today in clinic and reviewed use with the pt and her dtr. john at 15 units Hypertension - well controlled - continue with current medications, continue with no added salt diet. Pt has been encouraged to exercise daily. The pt has been advised to call the office if there are any acute concerns about change in blood pressure readings at home. Generalized weakness - physical therapy at [facility] with [facility] Increase amlodipine to 5mg (take 2 pills of your current supply until you run out) then get your new prescription for 5mg 1 pill daily. . Sciatica- exercises discussed with the patient-refer for PT to evaluate and treat. Pt is to call if the symptoms do not improve or if they worsen. Hypertension - uncontrolled - the patient's medications [...] is to call for acute concerns. . Hypertension - well controlled - [...] pt is to call for acute concerns. use the losartan 50mg - give her a dose when she gets home. then increase the losartan 100mg daily. . Diabetes Mellitus - uncontrolled -per her Daughter's report - she states that she has not been eating correctly. I have recommended for the patient to have follow up labs prior to the next office visit. The patient has been instructed to continue with current medications as previously directed, continue with regular FSBS monitoring to assure continued control of diabetes. Pt to call for any acute concerns, complaints, or if the blood glucose readings are starting to become less controlled. Hypertension - uncontrolled - the patient's medications [...] pt is to call for acute concerns. use the losartan 50mg - give her a dose when she gets home. then increase the losartan 100mg daily. . Weakness - improved - pt is [...] change in blood pressure readings at home. Appt with Dr Richmond for eye exam start acyclovir four times daily mupirocin ointment to rash on face -don't use on eye/eyelids -continue the eye drops you already have . Double vision-suspect due to elevated blood sugars -recommend patient bring in log of blood sugars to next appt -notify training technician of elevated readings and watch diet closely -also recommend f/u with eye doctor Rash-suspect shingles-rx for acyclovir provided and instructed on use . Hypertension - well controlled - continue with current medications, continue with no added salt diet. Pt has been encouraged to exercise daily. The pt has been advised to call the office if there are any acute concerns about change in blood pressure readings at home. . Diabetes Mellitus - Uncontrolled - per [...] to allow for greater blood glucose control. Pt is to decrease toujeo to 13 units. If her blood sugars are still dropping and she is symptomatic she is to decrease it to 10 units. Pt is to update clinic with her blood sugars and how she is feeling on Monday. take lasix today, as soon as you get to [place], monday morning, then start taking the lasix [...] today, as soon as you get to [place], monday morning, then start taking the lasix three days a week on Monday, Monday, take potassium today, , monday, then take the potssium on monday, monday and with the lasix Increase the toujeo to 20 units . Diabetes Mellitus - Uncontrolled - per [...] to allow for greater blood glucose control. increase toujeo to 20 units. Hypertension - well controlled - continue with current medications, continue with no added salt diet. Pt has been encouraged to exercise daily. The pt has been advised to call the office if there are any acute concerns about change in blood pressure readings at home. . Hospital follow up - Dr. Sow in to see pt - pt was in the hospital with uncontrolled hypertension and a. fib - controlled at this time - persistent weakness requiring ongoing PT and assistance with some ADLs and medication management - [facility]. . Bradycardia - [...] DM - managed by Dr. Johnson from [place] . Low back pain- the patient was instructed in appropriate posture - The pt is to use prn antiinflammatories to manage acute pain. The patient is to call the office if the pain is worsening or does not improve. . Hypertension - well controlled - continue [...] readings are starting to become less controlled. . Joint Injection - Pt was given post - injection instructions. The pt has been advised to use anti-inflammatories post injection today, ice to the injected site, call if redness, warmth, or increased pain occurs at the site of injection. Sciatica- exercises discussed with the patient, pt to continue with antiinflammatories. Pt is to call if the symptoms do not improve or if they worsen. . Joint Injection - Pt was given post - injection instructions. The pt has been advised to use anti-inflammatories post injection today, ice to the injected site, call if redness, warmth, or increased pain occurs at the site of injection. Sciatica- exercises discussed with the patient, pt to continue with antiinflammatories. Pt is to call if the symptoms do not improve or if they worsen. you need to see your eye doctor [...] lasix, monitor symptoms, call if not improving. . Medicare Exam - today we discussed the patients past history, immunizations, preventative exams/evaluations - colonoscopy, fecal occult blood testing, routine labs for renal function, glucose, cholesterol, osteoporosis evaluations, cardiovascular testing and cancer screenings. We have also discussed mental health and the signs/symptoms of depression. The patient was advised of home safety evaluations and the need to make sure that as the aging process continues, we need to be aware of different ways to make the home a safer place to reside. The patient has also been counseled that exercise is necessary - and of utmost importance as we age to help decrease fall risk and to maintain independence in the home. Today we discussed the need for the patient to create paperwork for Advanced directives as well as for the patient to provide this office with a copy of her DOPA paperwork for health care surrogate. take the humalog at the beginning of your meals - NOT after the meals cyclobenzaprine - muscle relaxer - take 1/2 of a pill at night and then you may take it up to twice a day - this will help to alleviate some of the spasming of the back allowing her to sleep better. . Uncontrolled DM - pt has been taking her insulin after she eats - I have advised Chery to take the humalog at the beginning of her meals - NOT after the meals. Lumbar disc disease with inflammation and muscle spasms - RX for cyclobenzaprine - muscle relaxer - send to the pharmacy. - Pt is to take 1/2 of a pill at night and then she may take it up to twice a day - this will help to alleviate some of the spasming of the back allowing her to sleep better. hold flonase x 3 days - come [...] handout Begin using muscle rub on back ([place] balm) Begin taking Lasix again No blood [...] handout Begin using muscle rub on back ([place] balm)
--- OUTSIDE RECORDS SUMMARY | 2018-06-10 21:54 | XMS REPORT | CCD ---
Author Author [facility] Organization [facility] Address [address] [place] [address] Phone Care Team Providers Care Chin Strap [employer]er Name Role Phone PP Unavailable CCM Unavailable Summary Purpose Interface Exchange Insurance Providers Payer name Policy type / Coverage type Covered alliance party ID Effective Begin Date Effective End Date WPS Medicare Part B Medicare Part B [id number] Unknown Unknown [employer] Medicare Part B [id number] Unknown Unknown Family history Mother Diagnosis Age [...] Unknown 3 05/04/[address]: 148353853 Never smoker 05/04/2015 Alcohol history Unknown occasionally drinks alcohol 05/04/2015 Allergies, Adverse Reactions, Alerts Substance Reaction Codes Entered Date Inactivated Date Status * NO KNOWN DRUG ALLERGIES Unknown 07/08/2015 No Inactive Date Active Past Medical History Illness Codes Condition Status Onset Date Resolved Date Low back pain ICD-9: 724.2 ICD-10: M54.5 [...] Problems Condition Codes Effective Dates Condition Status Low back pain ICD-9: 724.2 ICD-10: M54.5 [...] Fill Instructions cyclobenzaprine 5 mg tablet RxNorm: 852219 1/2 Tablet(s) PO BID as needed muscle spasms/back pain 05/02/2018 05/31/2018 Active Voltaren 1 % topical gel RxNorm: 884529 1 Application TOP QID 04/27/2018 No Stop Date Active tramadol 50 mg tablet RxNorm: 065059 1 Tablet(s) PO TID as needed for pain 04/27/2018 05/01/2018 Inactive acyclovir 400 mg tablet RxNorm: 193116 2 Tablet(s) PO QID 04/20 No Stop Date Active mupirocin 2 % topical ointment RxNorm: 960820 1 Application TOP BID 04/20/2018 04/29/2018 Inactive right cheek/nose gentamicin 0.3 % eye drops RxNorm: 230509 2 Drop(s) ophthalmic (eye) left eye Q8 04/16/2018 No Stop Date Active prednisone 20 mg tablet RxNorm: 733254 2 Tablet(s) PO daily 04/12/2018 Inactive prednisone 20 mg tablet RxNorm: 518772 2 Tablet(s) PO daily 04/17/2018 Inactive Kenalog 40 mg/mL suspension for injection RxNorm: 1415869 1 Milliliter(s) Inj 04/12/2018 04/12/2018 Inactive losartan 100 mg tablet RxNorm: 645081 1 Tablet(s) PO QAM 201712/28/2018 Active update RX -dose should be 100mg Norvasc 5 mg tablet RxNorm: 644757 1 Tablet(s) PO daily 201709/29/2018 Active update RX losartan 50 mg tablet RxNorm: 092625 TAKE ONE TABLET BY MOUTH ONCE DAILY IN THE MORNING 03/26/2018 04/02/2018 Inactive Touvipul SoloStar U-300 Insulin 300 unit/mL (1.5 mL) subcutaneous pen RxNorm: 9968375 20 Unit(s) SQ QHS MANAGED BY DR. JOHNSON 201707/10/2018 Active Humalog U-100 Insulin 100 unit/mL subcutaneous solution RxNorm: 147751 15 Unit(s) SQ AC MANAGED BY DR. JOHNSON 03/13/2018 No Stop Date Active 201- 200 17 units, greater than 300 21 units losartan 100 mg tablet RxNorm: 092158 1 Tablet(s) PO QAM 201704/02/2018 Inactive pantoprazole 40 mg tablet,delayed release RxNorm: 815415 1 Tablet(s) PO daily 01/11/2018 08/08/2018 Active carvedilol 12.5 mg tablet RxNorm: 925408 1 Tablet(s) PO BID 03/06/2019 Active Toujeo SoloStar U-300 Insulin 300 unit/mL (1.5 mL) subcutaneous pen RxNorm: 4640173 15 Unit(s) SQ QHS MANAGED BY DR. JOHNSON 201703/12/2018 Inactive Multaq 400 mg tablet RxNorm: 246551 1 Tablet(s) PO BID 201712/14/2018 Active potassium chloride ER 10 mEq tablet,extended release RxNorm: 665518 1 Tablet(s) PO daily while on the Lasix 10/18/201701/2018 Inactive losartan 50 mg tablet RxNorm: 037233 1 Tablet(s) PO QAM 201601/17/2018 Inactive Lasix 20 mg tablet RxNorm: 157456 1 Tablet(s) PO daily 201610/03/2017 Inactive potassium chloride ER 10 mEq tablet,extended release RxNorm: 799793 1 Tablet(s) PO daily while on the Lasix 08/30/2017 Inactive Toujeo SoloStar 300 unit/mL (1.5 mL) subcutaneous insulin pen RxNorm: 2185502 35 Unit(s) SQ QHS MANAGED BY DR. JOHNSON 06/15/2017 10/12/2017 Inactive Eliquis 5 mg tablet RxNorm: 5995763 TAKE ONE TABLET BY MOUTH TWICE DAILY 03/01/2017 02/23/2018 Inactive Januvia 100 mg tablet RxNorm: 078331 1/2 Tablet(s) PO daily 04/04/2017 Inactive losartan 50 mg tablet RxNorm: 797795 1 Tablet(s) PO BID 201509/13/2017 Inactive amlodipine 10 mg tablet RxNorm: 534997 1 Tablet(s) PO daily 06/14/2017 Inactive generic for NORVASC losartan 50 mg tablet RxNorm: 340181 1 Tablet(s) PO daily 201508/31/2016 Inactive Toujeo SoloStar 300 unit/mL (1.5 mL) subcutaneous insulin pen RxNorm: 0695208 40 Unit(s) SQ QHS MANAGED BY DR. JOHNSON 07/01/2016 06/14/2017 Inactive Toujeo SoloStar 300 unit/mL (1.5 mL) subcutaneous insulin pen RxNorm: 9319495 35 Unit(s) SQ QHS MANAGED BY DR. JOHNSON 06/02/2016 06/30/2016 Inactive Humalog 100 unit/mL subcutaneous solution RxNorm: 500153 15 Unit(s) SQ AC MANAGED BY DR. JOHNSON 06/02/2016 03/12/2018 Inactive carvedilol 3.125 mg tablet RxNorm: 981694 1 Tablet(s) PO BID 04/23/2016 Inactive simvastatin 40 mg tablet RxNorm: 831112 1 Tablet(s) PO QHS 01/29/2017 Inactive Humalog 100 unit/mL subcutaneous solution RxNorm: 745112 13 Unit(s) SQ AC MANAGED BY DR. JOHNSON 01/26/2016 06/01/2016 Inactive Eliquis 5 mg tablet RxNorm: 8775212 1 Tablet(s) PO BID 201501/13/2017 Inactive carvedilol 6.25 mg tablet RxNorm: 435996 1 Tablet(s) PO BID 2016 Inactive Humalog 100 unit/mL subcutaneous solution RxNorm: 975064 Unit(s) SQ UD as directed by office 08/07/2015 01/25/2016 Inactive Klor-Con 10 mEq tablet,extended release RxNorm: 179383 1 Tablet(s) PO daily as needed 06/26/2015 10/23/2015 Inactive Lasix 20 mg tablet RxNorm: 689831 1 Tablet(s) PO daily as needed 06/26/2015 10/23/2015 Inactive fluticasone 50 mcg/actuation nasal spray,suspension RxNorm: 900387 2 [place] NASAL daily No Start Date Active cetirizine 10 mg tablet RxNorm: 5999438 1 Tablet(s) PO daily No Start Date Active losartan 25 mg tablet RxNorm: 979356 1 Tablet(s) PO daily No Start Date 08/31/2016 Inactive losartan 100 mg tablet RxNorm: 292610 1 Tablet(s) PO daily No Start Date 06/30/2016 Inactive gentamicin 0.3 % eye drops RxNorm: 205701 2 Drop(s) ophthalmic (eye) left eye Q8 No Start Date 04/15/2018 Inactive Multaq 400 mg tablet RxNorm: 429093 1 Tablet(s) PO BID No Start Date 12/19/2017 Inactive Klor-Con 10 mEq tablet,extended release RxNorm: 065440 1 Tablet(s) PO daily as needed No Start Date 06/25/2015 Inactive simvastatin 40 mg tablet RxNorm: 379048 1 Tablet(s) PO daily No Start Date 02/04/2016 Inactive carvedilol 6.25 mg tablet RxNorm: 581879 1 Tablet(s) PO BID No Start Date 11/30/2015 Inactive Eliquis 5 mg tablet RxNorm: 9227214 1 Tablet(s) PO BID No Start Date 01/19/2016 Inactive Toujeo SoloStar 300 unit/mL (1.5 mL) subcutaneous insulin pen RxNorm: 0167502 33 Unit(s) SQ QHS MANAGED BY DR. JOHNSON No Start Date 06/01/2016 Inactive Lasix 20 mg tablet RxNorm: 493878 1 Tablet(s) PO daily as needed No Start Date 06/25/2015 Inactive Humalog 100 unit/mL subcutaneous solution RxNorm: 290472 10 Unit(s) SQ TID No Start Date 08/06/2015 Inactive amlodipine 5 mg tablet RxNorm: 960429 1 Tablet(s) PO daily No Start Date 08/31/2016 Inactive Norvasc 2.5 mg tablet RxNorm: 760084 1 Tablet(s) PO daily No Start Date 04/02/2018 Inactive Medication Administered Medication Codes Instructions Start Date Status Kenalog 40 mg/mL suspension for injection RxNorm: 8461163 1Milliliter 04/12/2018 No longer Active Immunizations Vaccine Codes Date Status Influenza CVX: 141 06/02/2016 completed Influenza CVX: 141 07/17/2015 completed Influenza CVX: 141 06/18/2014 completed Pneumococcal CVX: 33 06/18/2014 completed Assessments Condition Codes Effective Dates Low back pain ICD-10: M54.5 ICD-9: 724.2 [...] Visit Reason For Visit Effective Dates Notes leg pain/sciatica 04/27/2018 vision change 04/20/2018 sciatica [...] 92.2 fl 05/25/2017 Cbc With Differential Ord2 Pine% 8.9 % 05/25/2017 Cbc With Differential Ord2 [...] 3.78 K/ul 05/25/2017 Cbc With Differential Ord2 Pine ABS# 0.7 K/ul 05/25/2017 Cbc With Differential Ord2 Eos ABS# 0.8 K/ul 05/25/2017 Cbc With Differential Ord2 Baso ABS# 0.3 K/ul 05/25/2017 Manual Differential Ord52 D-Neutr 50 % 05/25/2017 Manual Differential Ord52 D-Lymph 38 % 05/25/2017 Manual Differential Ord52 D-Eos 10 % 05/25/2017 Manual Differential Ord52 D-1 2 NRBC 05/25/2017 Comp Metabolic Pzg093 NA 140 mEq/L 05/25/2017 Comp Metabolic Tii316 K 4.0 mEq/L 05/25/2017 Comp Metabolic Mwk567 CL 107 mEq/L 05/25/2017 Comp Metabolic Tqm710 CO2 22.0 mEq/L 05/25/2017 Comp Metabolic Bsv345 ANION GAP 15 05/25/2017 Comp Metabolic Wop253 GLUCOSE 97 mg/dL 05/25/2017 Comp Metabolic Hrn846 Creat 0.9 mg/dL 05/25/2017 Comp Metabolic Qmn576 eGFR 61 ml/min/1.73m2 05/25/2017 Comp Metabolic Pmx912 BUN 16 mg/dL 05/25/2017 Comp Metabolic Udb794 B/C Ratio 17.4 Ratio 05/25/2017 Comp Metabolic Jyo572 CALCIUM 9.1 mg/dL 05/25/2017 Comp Metabolic Yrv562 ALK PHOS 109 U/L 05/25/2017 Comp Metabolic Cjc336 AST(SGOT) 19 U/L 05/25/2017 Comp Metabolic Ikt142 ALT(SGPT) 17 U/L 05/25/2017 Comp Metabolic Qwf910 BILI T 0.4 mg/dL 05/25/2017 Comp Metabolic Jfk126 ALBUMIN 3.3 g/dL 05/25/2017 Comp Metabolic Ppx932 TPRO 6.0 g/dL 05/25/2017 Comp Metabolic Lbd376 GLOB 2.7 g/dL 05/25/2017 Comp Metabolic Pcy590 A/G Ratio 1.2 Ratio 05/25/2017 Comp Metabolic Ikw840 Osmo 281 mOsmo 05/25/2017 Lipid Ord30 CHOL 204 mg/dL 05/25/2017 Lipid Ord30 HDL 49.0 mg/dl 05/25/2017 Lipid Ord30 TRIG 117 mg/dL 05/25/2017 Lipid Ord30 LDL 132 mg/dL 05/25/2017 Lipid Ord30 C/HDL 4.2 Ratio 05/25/2017 %Hba1C Zdd165 % HbA1c 58474-9 10.5 % 05/25/2017 %Hba1C Bbq252 Gluc Ave 255 mg/dL 05/25/2017 Microalbumin Jsa380 MicroAlb 95.0 mg/dL 05/25/2017 Review of Systems [...] Result Effective Dates Notes Full Exam - Orthopedics Constitutional general appearance [...] Procedures Procedure Codes Date DRAIN/INJECT JOINT/BURSA CPT-4: 58007 04/12/2018 TRIAMCINOLONE ACET INJ NOS CPT-4: J3301 04/12/2018 PPPS, SUBSEQ VISIT CPT -4: G0439 02/22/2018 ADMIN INFLUENZA VIRUS VAC CPT-4: G0008 06/02/2016 FLU VACC PRSV FREE INC ANTIG CPT-4: 04286 06/02/2016 Vital Signs Date Vital 04/27/2018 Blood Pressure 1: 164/78 Code : 8480-6 BMI: 24.7 Code : 61233-4 Heart Rate 1 : 69 bpm Height: 4'8" SpO2: 97% Weight: 110 lbs 04/20/2018 Blood Pressure 1: 140/80 Code : 8480-6 BMI: 24.7 Code : 94934-6 Heart Rate 1 : 83 bpm Height: 4'8" SpO2: 97% Weight: 110 lbs 04/12/2018 Blood Pressure 1: 146/78 Code : 8480-6 Heart Rate 1: 68 bpm Height: SpO2: 98% Weight: 04/10/2018 Blood Pressure 1: 146/60 Code : 8480-6 BMI: 24.7 Code : 92775-3 Heart Rate 1 : 60 bpm Height: 4'8" SpO2: 95% Weight: 110 lbs 04/03/2018 Blood Pressure 1: 204/80 Code : 8480-6 BMI: 24.9 Code : 09835-4 Heart Rate 1 : 62 bpm Height: 4'8" SpO2: 98% Weight: 111 lbs 03/13/2018 Blood Pressure 1: 140/68 Code : 8480-6 BMI: 25.6 Code : 51743-9 Heart Rate 1 : 68 bpm Height: 4'8" SpO2: 95% Weight: 114 lbs 02/22/2018 Blood Pressure 1: 166/88 Code : 8480-6 BMI: 24.7 Code : 78893-3 Heart Rate 1 : 72 bpm Height: 4'8" SpO2: 95% Weight: 110 lbs 02/01/2018 Blood Pressure 1: 162/70 Code : 8480-6 BMI: 23.2 Code : 91715-7 Heart Rate 1 : 64 bpm Height: 4'11" SpO2: 95% Weight: 115 lbs 01/18/2018 Blood Pressure 1: 192/86 Code : 8480-6 BMI: 22.6 Code : 58671-5 Heart Rate 1 : 68 bpm Height: 4'11" SpO2: 94% Weight: 112 lbs 12/21/2017 Blood Pressure 1: 110/52 Code : 8480-6 BMI: 23.0 Code : 60191-5 Heart Rate 1 : 58 bpm Height: 4'11" SpO2: 94% Weight: 114 lbs 10/10/2017 Blood Pressure 1: 168/78 Code : 8480-6 BMI: 23.0 Code : 83363-2 Heart Rate 1 : 54 bpm Height: 4'11" SpO2: 98% Weight: 114 lbs 09/07/2017 Blood Pressure 1: 142/72 Code : 8480-6 Heart Rate 1: 84 bpm Height: 4'11" SpO2: 97% Weight: 08/30/2017 Blood Pressure 1: 188/82 Code : 8480-6 BMI: 24.4 Code : 24623-7 Heart Rate 1 : 79 bpm Height: 4'11" SpO2: 88% Temperature: 38.5 (C) / 101.3 (F) Weight: 121 lbs 08/15/2017 Blood Pressure 1: 166/78 Code : 8480-6 BMI: 22.8 Code : 15990-0 Heart Rate 1 : 71 bpm Height: 4'11" SpO2: 96% Weight: 113 lbs 06/15/2017 Blood Pressure 1: 138/68 Code : 8480-6 BMI: 22.8 Code : 84252-9 Heart Rate 1 : 54 bpm Height: 4'11" SpO2: 98% Weight: 113 lbs 05/29/2017 Blood Pressure 1: 96/46 Code : 8480-6 Blood Pressure 2: 116/57 Code: 8480-6 Heart Rate 1: 54 bpm 05/11/2017 Blood Pressure 1: 144/60 Code : 8480-6 BMI: 23.8 Code : 33096-9 Heart Rate 1 : 68 bpm Height: 4'11" SpO2: 97% Weight: 118 lbs 01/05/2017 Blood Pressure 1: 134/72 Code : 8480-6 BMI: 24.8 Code : 69389-6 Heart Rate 1 : 64 bpm Height: 4'11" SpO2: 94% Weight: 123 lbs 09/20/2016 Blood Pressure 1: 148/66 Code : 8480-6 BMI: 25.4 Code : 68530-1 Heart Rate 1 : 68 bpm Height: 4'11" SpO2: 97% Weight: 126 lbs 09/01/2016 Blood Pressure 1: 162/80 Code : 8480-6 BMI: 26.1 Code : 54353-7 Heart Rate 1 : 75 bpm Height: 4'11" SpO2: 95% Weight: 129 lbs 06/02/2016 Blood Pressure 1: 144/82 Code : 8480-6 BMI: 25.4 Code : 12218-3 Heart Rate 1 : 68 bpm Height: 4'11" SpO2: 98% Weight: 126 lbs 03/25/2016 Blood Pressure 1: 140/58 Code : 8480-6 BMI: 25.9 Code : 28036-8 Heart Rate 1 : 58 bpm Height: 4'11" SpO2: 95% Weight: 128 lbs 01/26/2016 Blood Pressure 1: 138/68 Code : 8480-6 BMI: 26.3 Code : 79990-7 Heart Rate 1 : 66 bpm Height: 4'11" SpO2: 96% Weight: 130 lbs 10/29/2015 Blood Pressure 1: 180/78 Code : 8480-6 BMI: 25.7 Code : 36818-5 Heart Rate 1 : 74 bpm Height: 4'11" SpO2: 97% Weight: 127 lbs 07/21/2015 Blood Pressure 1: 136/70 Code : 8480-6 BMI: 25.9 Code : 02165-9 Heart Rate 1 : 63 bpm Height: 4'11" SpO2: 95% Weight: 128 lbs 07/08/2015 Blood Pressure 1: 140/70 Code : 8480-6 BMI: 26.5 Code : 47663-8 Heart Rate 1 : 59 bpm Height: 4'11" SpO2: 94% Weight: 131 lbs 5 oz 05/04/2015 Blood Pressure 1: 140/60 Code : 8480-6 BMI: 25.7 Code : 33396-7 Heart Rate 1 : 60 bpm Height: 4'11" SpO2: 94% Weight: 127 lbs Functional Status No Functional Status data History of Present Illness Symptom Name Status Result Effective Date Notes leg pain/sciatica Location left paralumbar 04/27/2018 None [...] Codes Date EST. PATIENT, LEVEL III Diagnosis: Low back pain[ICD10: M54.5] Elizabeth Sow MD, [facility] CPT-4 : 37715 04/27/2018 ([id number]) 30016 EST. PATIENT, LEVEL IV Diagnosis: Diplopia[ICD10: H53.2] Diagnosis: Rash and other nonspecific skin eruption[ICD10: R21] Diagnosis: Type 2 diabetes mellitus with hyperglycemia[ICD10: E11.65] Laney Sow MD, [facility] CPT-4: 71341 04/20/2018 ([id number]) 70603 EST. PATIENT, LEVEL III Diagnosis: Low back pain[ICD10: M54.5] Elizabeth Sow MD, [facility] CPT-4 : 70014 04/12/2018 ([id number]) 82267 EST. PATIENT, LEVEL III Diagnosis: Essential (primary) hypertension[ICD10: I10] Diagnosis: Type 2 diabetes mellitus with hyperglycemia[ICD10: E11.65] Kate Sow MD , [facility] CPT-4: 97438 04/10/2018 ([id number]) 32136 EST. PATIENT, LEVEL III Diagnosis: Lumbago with sciatica, left side[ICD10: M54.42] Diagnosis: Essential (primary) hypertension[ICD10: I10] Laney Sow MD, [facility] CPT-4: 28484 04/03/2018 ([id number]) 18627 EST. PATIENT, LEVEL IV Diagnosis: Type 2 diabetes mellitus with hyperglycemia[ICD10: E11.65] Diagnosis: Essential (primary) hypertension[ICD10: I10] Kate Sow MD, [facility] CPT-4: 81161 03/13/2018 ([id number]) 42273 EST. PATIENT, LEVEL IV Diagnosis: Essential (primary) hypertension[ICD10: I10] Diagnosis: Type 2 diabetes mellitus with hyperglycemia[ICD10: E11.65] Kate Sow MD [facility] CPT-4: 86152 02/01/2018 ([id number]) 30414 EST. PATIENT, LEVEL IV Diagnosis: Type 2 diabetes mellitus with hyperglycemia[ICD10: E11.65] Diagnosis: Essential (primary) hypertension[ICD10: I10] Kate Sow MD, [facility] CPT-4: 89410 01/18/2018 ([id number]) Miscellaneous no charge Diagnosis: Type 2 diabetes mellitus with hyperglycemia[ICD10: E11.65] Elizabeth Sow MD, [facility] CPT-4: 04068 12/22/2017 ([id number]) 68646 EST. PATIENT, LEVEL IV Diagnosis: Type 2 diabetes mellitus with hyperglycemia[ICD10: E11.65] Diagnosis: Essential (primary) hypertension[ICD10: I10] Diagnosis: Muscle weakness (generalized)[ICD10: M62.81] Kate Sow MD, [facility] CPT-4: 22660 12/21/2017 85077 EST. PATIENT, LEVEL IV Diagnosis: Type 2 diabetes mellitus without complications[ICD10: E11.9] Diagnosis: Mixed hyperlipidemia[ICD10: E78.2] Diagnosis: Essential (primary) hypertension[ICD10: I10] Elizabeth Sow MD, [facility] CPT-4: 71897 10/10/2017 35423 EST. PATIENT, LEVEL III Diagnosis: Weakness[ICD10: R53.1] Diagnosis: Essential (primary) hypertension[ICD10: I10] Elizabeth Sow MD, [facility] CPT-4: 57223 09/07/2017 81864 EST. PATIENT, LEVEL III Diagnosis: Encounter for follow-up examination after completed treatment for conditions other than malignant neoplasm[ICD10: Z09] Diagnosis: Weakness[ICD10: R53.1] Diagnosis: Essential (primary) hypertension[ICD10: I10] Diagnosis: Dyspnea, unspecified[ICD10: R06.00] Diagnosis: Unsteadiness on feet[ICD10: R26.81] Elizabeth Sow MD [facility] CPT-4: 77811 08/30/2017 ([id number]) 52034 EST. PATIENT, LEVEL IV Diagnosis: Type 2 diabetes mellitus without complications[ICD10: E11.9] Diagnosis: Essential (primary) hypertension[ICD10: I10] Kate Sow MD [facility] CPT-4: 57542 08/15/2017 ([id number]) 82100 EST. PATIENT, LEVEL IV Diagnosis: Type 2 diabetes mellitus without complications[ICD10: E11.9] Diagnosis: Essential (primary) hypertension[ICD10: I10] Diagnosis: Unsteadiness on feet[ICD10: R26.81] Kate Sow MD [facility] CPT-4: 46489 06/15/2017 ([id number]) Miscellaneous no charge Diagnosis: Essential (primary) hypertension[ICD10: I10] Laney Sow MD [facility] CPT-4: 08516 05/29/2017 ([id number]) 69103 EST. PATIENT, LEVEL IV Diagnosis: Type 2 diabetes mellitus without complications[ICD10: E11.9] Diagnosis: Essential (primary) hypertension[ICD10: I10] Diagnosis: Mixed hyperlipidemia[ICD10: E78.2] Kate Sow MD [facility] CPT-4: 61381 05/11/2017 ([id number]) 89440 EST. PATIENT, LEVEL IV Diagnosis: Type 2 diabetes mellitus without complications[ICD10: E11.9] Diagnosis: Essential (primary) hypertension[ICD10: I10] Kate Sow MD [facility] CPT-4: 03560 01/05/2017 ([id number]) 43034 EST. PATIENT, LEVEL III Diagnosis: Essential (primary) hypertension[ICD10: I10] Kate Sow MD [facility] CPT-4: 57042 09/20/2016 ([id number]) 47769 EST. PATIENT, LEVEL III Diagnosis: Essential (primary) hypertension[ICD10: I10] Laney Sow MD [facility] CPT-4: 72912 09/01/2016 ([id number]) Miscellaneous no charge Diagnosis: Impacted cerumen, right ear[ICD10: H61.21] Elizabeth Sow MD, [facility] CPT-4: 38021 06/08/2016 ([id number]) 23076 EST. PATIENT, LEVEL IV Diagnosis: Type 2 diabetes mellitus without complications[ICD10: E11.9] Diagnosis: Essential (primary) hypertension[ICD10: I10] Diagnosis: Encounter for immunization[ICD10: Z23] Kate Sow MD, [facility] CPT-4: 21419 06/02/2016 22432 EST. PATIENT, LEVEL III Diagnosis: Essential (primary) hypertension[ICD10: I10] Diagnosis: Other specified cardiac arrhythmias[ICD10: I49.8] Elizabeth Sow MD, [facility] CPT-4: 90246 03/25/2016 ([id number]) 75528 EST. PATIENT, LEVEL IV Diagnosis: Type 2 diabetes mellitus without complications[ICD10: E11.9] Diagnosis: Essential (primary) hypertension[ICD10: I10] Kate Sow MD [facility] CPT-4: 64068 01/26/2016 ([id number]) 89170 EST. PATIENT, LEVEL IV Diagnosis: Essential (primary) hypertension[ICD10: I10] Diagnosis: Type 2 diabetes mellitus without complications[ICD10: E11.9] Kate Sow MD, [facility] CPT-4: 86782 10/29/2015 ([id number]) 87449 EST. PATIENT, LEVEL IV Diagnosis: Essential (primary) hypertension[ICD10: I10] Diagnosis: Dyspnea, unspecified[ICD10: R06.00] Kate Sow MD, [facility] CPT-4: 54320 07/21/2015 ([id number]) 40568 EST. PATIENT, LEVEL III Diagnosis: Edema, unspecified[ICD10: R60.9] [facility] CPT-4: 27316 07/08/2015 ([id number]) OFFICE VISIT, NEW - LEVEL 4 Diagnosis: ESSENTIAL HYPERTENSION[ICD9: 401.9] Diagnosis: DIABETES TYPE II[ICD9: 250.00] [facility] CPT- 4: 68103 05/04/2015 Plan of Care Planned Activity Notes Codes Status Date Care Plan: X-RAY EXAM L-S SPINE 2/3 VWS LOINC : 23156-4 Pending 05/02/2018 Visit Plan: Low back pain- the patient was instructed in appropriate posture - The pt is to use prn antiinflammatories to manage acute pain. The patient is to call the office if the pain is worsening or does not improve. 04/27/2018 Appointment: Elizabeth Milner WPtel: [phone] [facility] (15 min) Moderate 04/27/2018 Patient Education: Patient Medication Summary Completed 04/27/2018 Visit Plan: Double vision-suspect due to elevated blood sugars -recommend patient bring in log of blood sugars to next appt -notify congressional representative of elevated readings and watch diet closely -also recommend f/u with eye doctor Rash-suspect shingles-rx for acyclovir provided and instructed on use 04/20/2018 Appointment: Laney Mcmillan WPtel: [phone] [facility] [place] (15 min) Moderate 04/20/2018 Patient Education: [...] they worsen. 04/12/2018 [phone] [facility] [place] (15 min) Moderate 04/12/2018 Patient Education: Patient [...] less controlled. 04/10/2018 Appointment: Kate Sow WPtel: [phone] [facility] (15 min) Moderate 04/10/2018 Patient Education: Patient [...] concerns. 04/03/2018 App[facility]ment[phone] [phone] (15 min) Moderate 04/03/2018 Patient Education: Patient [...] at home. 03/13/2018 [phone] ([facility] min) Moderate 03/13/2018 Patient Education: Patient [...] diet. 02/01/2018 Appointment: [phone] [facility] [place] (15 min) Moderate 02/01/2018 Patient Education: Patient [...] daily. 01/18/2018 Appointment: [phone] [facility] (15 min) Moderate 01/18/2018 Patient Education: Patient Medication Summary Completed 01/18/2018 Appointment: Kate Sow [facility] (15 min) Moderate 01/11/2018 Appointment: Kate Sow [facility]el: [facility] (15 min) Moderate 12/25/2017 Visit Plan: Diabetes [...] home. Generalized weakness - physical therapy at [facility] outpt 12/21/2017 Appointment: [phone] [facility] (15 min) Moderate 12/21/2017 Patient Education: Patient Medication Summary Completed 12/21/2017 Appointment: Kate S[phone] [facility] [place] (15 min) Moderate 12/13/2017 Visit Plan: Hypertension [...] control. 10/10/2017 Appointment: Elizabeth Milner WPtel: [phone] [facility] (15 min) Moderate 10/10/2017 Patient Education: Patient [...] home. 09/07/2017 Appointment: Elizabeth Milner WPtel: [phone] [facility] (30 min) Complex 09/07/2017 Patient Education: Patient Medication Summary Completed 09/07/2017 Appointment: Kate Sow WPtel: [phone] [facility] [place] (15 min) Moderate 09/05/2017 Visit Plan: Hospital follow up - Dr. Sow in to see pt - pt was in the hospital with uncontrolled hypertension and a. fib - controlled at this time - persistent weakness requiring ongoing PT and assistance with some ADLs and medication management - [facility]. 08/30/2017 Appointment: Elizabeth Milner WPtel: [phone] [facility] [place] (30 min) Complex 08/30/2017 Patient Education: Patient Medication Summary Completed 08/30/2017 Appointment: Elizabeth Milenr WPtel: [phone] [facility] [place] (15 min) Moderate 08/29/2017 Visit Plan: [...] home. 08/15/2017 Appointment: [phone] (15 min) Moderate 08/15/2017 Patient Education: Patient Medication Summary Completed 08/15/2017 Care Plan: %Hba1C LOINC : 87532-6 Cancelled 08/15/2017 [phone] Patient's informed. Completed 06/26/2017 Visit Plan: [...] glucose control. Gait Instability - referral to [facility] for gait instability. Hypertension - well controlled - continue with current medications , continue with no added salt diet. Pt has been encouraged to exercise daily. The pt has been advised to call the office if there are any acute concerns about change in blood pressure readings at home. 06/15/2017 App[facility]ment[phone] (15 min) Moderate 06/15/2017 Patient Education: Patient Medication Summary Completed 06/15/2017 Care Plan: Referral Order SNOMED-CT : [id number] Pending 06/15/2017 Appointment: Nurse Visit 05/29/2017 Patient [...] and come in here or go to [facility] to get this set of labs [...] with Statin 05/11/2017 Appointment: [phone] (15 min) Moderate [...] daily. 01/05/2017 Appointment: Kate Sow WPtel: [phone] [facility] (15 min) Moderate 01/05/2017 Patient Education: Patient [...] home. 09/20/2016 Appointment: Kate Sow WPtel: [phone] [facility] (30 min) Complex 09/20/2016 Patient Education: Patient [...] acute concerns. 09/01/2016 Appointment: Laney Mcmillan WPtel: [phone] [phone] (30 min) Complex 09/01/2016 Patient Education: Patient [...] controlled. 06/02/2016 Appointment: Kate Sow WPtel: [phone] [facility] (15 min) Moderate 06/02/2016 Patient Education: Patient Medication Summary Completed 06/02/2016 Patient Education: Hypertension Completed 06/02/2016 Visit Plan: Bradycardia - reports pt has brought in indicates that the pt has been having a pulse in the 40s-50s. Will adjust medications, pt is to notify clinic if her symptoms do not improve, or with any concerns. 03/25/2016 App[facility]ment: [phone] (10 min) Simple 03/25/2016 Patient Education: Patient [...] DM - managed by Dr. Johnson from [place] 01/26/2016 Patient Education: Patient Medication Summary Completed 01/26/2016 Patient Education: Hypertension Completed 01/26/2016 Appointment: Laney Mcmillan WPtel: [phone] [phone] (30 min) Complex 12/31/2015 Visit Plan: Hypertension [...] less controlled. 10/29/2015 Appointment: Kate Sow WPtel: [facility] (15 min) Moderate 10/29/2015 Patient Education: Patient Medication Summary Completed 10/29/2015 Patient Education: Hypertension Completed 10/29/2015 Appointment: Kate Sow WPtel: [facility] (15 min) Moderate 09/14/2015 Visit Plan: Hypertension [...] attempt to reduce peripheral edema. take lasix , as soon as you get to [place], monday morning, then start taking the lasix [...] handout Begin using muscle rub on back (Dayton balm) 05/04/2015 Appointment: [phone] [place] ([place] New Patient 05/04/2015 Patient Education: Patient Medication Summary Completed 05/04/2015 Patient Education: Hypertension Completed 05/04/2015 [phone] [place] Referral Appointment Requested Instructions Comment see if Dr. Johnson has the toujeo samples for you - if not , go to the pharmacy to pick up and delivery driver the toujeo script. if the toujeo script [...] glucose control. Gait Instability - referral to [facility] therapy for gait instability. Hypertension [...] therapy at [facility] with Sade Amaya Increase amlodipine to 5mg (take 2 pills [...] of blood sugars to next appt -notify congressional representative of elevated readings and watch diet closely [...] she is feeling on Monday. take lasix as soon as you get to monday morning, then start taking the lasix three days a week on Monday, Monday , take potassium today, monday, then take the potssium on monday, [...] week on Monday, Monday, take potassium today, monday, then take the potssium on monday, [...] medication management - [facility]. . Bradycardia - [...] DM - managed by Dr. Johnson from [place] . Low back pain- the patient was [...] YOUR NEXT SET OF LABS DONE AFTER FABY 19TH - these need to be fasting labs [...] her DOPA paperwork for health care surrogate. hold flonase x 3 days - come [...] handout Begin using muscle rub on back (Dayton balm) Begin taking Lasix again No blood [...] handout Begin using muscle rub on back (Dayton balm)
[2018-06-10] MEDS ORDERED: inSUlin (REGULAR) HUMAN 1 UNIT/0.01 ML (CHARGE PER UNIT) IV ONE (22:15)
[2018-06-10 22:26] LABS: BASOPHILS % (AUTO) 0 % (0-10); EOSINOPHILS # (AUTO) 0.1 10^3/uL (0.0-0.3); EOSINOPHILS % (AUTO) 2 % (0-10); HEMATOCRIT 44 % (35-52); HEMOGLOBIN 14.8 G/DL (11.5-16.0); LYMPHOCYTES # (AUTO) 2.2 X 10^3 (1.0-4.0); LYMPHOCYTES % (AUTO) 34 % (12-44); MEAN CORPUSCULAR HEMOGLOBIN 30 PG (25-34); MEAN CORPUSCULAR HGB CONC 34 G/DL (32-36); MEAN CORPUSCULAR VOLUME 88 FL (80-99); MEAN PLATELET VOLUME 11.2 FL (7.4-10.4); MONOCYTES # (AUTO) 0.7 X 10^3 (0.0-1.0); MONOCYTES % (AUTO) 11 % (0-12); NEUTROPHILS # (AUTO) 3.4 X 10^3 (1.8-7.8); NEUTROPHILS % (AUTO) 53 % (42-75); PLATELET COUNT 425 10^3/uL (130-400); RED BLOOD COUNT 5.02 10^6/uL (4.35-5.85); RED CELL DISTRIBUTION WIDTH 14.1 % (10.0-14.5); WHITE BLOOD COUNT 6.4 10^3/uL (4.3-11.0)
[2018-06-10 22:39] LABS: BILIRUBIN,URINE NEGATIVE (NEGATIVE); CLARITY,URINE CLEAR; COLOR,URINE YELLOW; GLUCOSE, URINE (UA) 4+ (NEGATIVE); KETONES,URINE NEGATIVE (NEGATIVE); LEUKOCYTE ESTERASE ,URINE NEGATIVE (NEGATIVE); NITRITE,URINE NEGATIVE (NEGATIVE); PH,URINE 8 (5-9); PROTEIN,URINE 3+ (NEGATIVE); UROBILINOGEN,URINE NORMAL (NORMAL)
[2018-06-10 22:42] LABS: FIBRIN DEGRADATION PRODUCTS 1.53 UG/ML (0.00-0.49); INR 0.9 (0.8-1.4)
[2018-06-10] MEDS ORDERED: LORazepam INJ 2 MG/ML (ATIVAN) VIAL ONE (22:43)
[2018-06-10 22:45] LABS: ALANINE AMINOTRANSFERASE 33 U/L (0-55); ALBUMIN 3.5 GM/DL (3.2-4.5); ALKALINE PHOSPHATASE 115 U/L (40-136); BILIRUBIN,TOTAL 0.4 MG/DL (0.1-1.0); BUN/CREATININE RATIO 14; CALCIUM 10.7 MG/DL (8.5-10.1); CARBON DIOXIDE 21 MMOL/L (21-32); CHLORIDE 97 MMOL/L (98-107); CREATININE SERUM 1.76 MG/DL (0.60-1.30); GFR ESTIMATED 27; POTASSIUM 5.2 MMOL/L (3.6-5.0); SODIUM 132 MMOL/L (135-145); TOTAL PROTEIN 6.7 GM/DL (6.4-8.2)
[2018-06-10 22:46] LABS: GLUCOSE 743 MG/DL (70-105)
[2018-06-10 23:00] LABS: BACTERIA,URINE MODERATE /HPF; SQUAMOUS EPITHELIAL CELL,UR 0-2 /HPF
[2018-06-10] MEDS ORDERED: LORazepam INJ 2 MG/ML (ATIVAN) VIAL IVP ONE (23:00)
[2018-06-10] MEDS ORDERED: IOHEXOL 350 MG/ML 100 ML (OMNIPAQUE 350) VIAL IV ONE (23:30)
[2018-06-11] VITALS (39 sets, daily range): BP systolic 108–202; BP diastolic 44–101
[2018-06-11] MEDS ORDERED: cefTRIAXone FOR IV USE 1,000 MG in NS (IVPB) 50 ML IV ONE ×2
[2018-06-11] MEDS ORDERED: NS IV 1000 ML 1,000 ML ONE (00:23)
[2018-06-11] MEDS ORDERED: NS IV 1000 ML 1,000 ML IV SCH (00:28)
[2018-06-11] MEDS ORDERED: meTOprolol 5 MG/5 ML (LOPRESSOR) VIAL IV ONE (00:30)
[2018-06-11] MEDS ORDERED: inSUlin DETERMIR 1 UNIT/0.01 ML (LEVEMIR) CHARGE PER UNIT SQ ONE (02:04)
[2018-06-11] MEDS: inSUlin DETERMIR 1 UNIT/0.01 ML (LEVEMIR) CHARGE PER UNIT SQ SCH (02:04)
[2018-06-11] MEDS: NS IV 1000 ML 1,000 ML IV SCH ×2 (02:30→16:01)
[2018-06-11] MEDS ORDERED: D5 1/2 NS W/KCL 20 MEQ/L 1,000 ML IV SCH (03:10)
[2018-06-11] MEDS ORDERED: 1/2 NS W/KCL 20 MEQ/L 1,000 ML IV SCH (03:10)
[2018-06-11] MEDS ORDERED: NS IV 1000 ML 1,000 ML IV ONE (03:10)
[2018-06-11] MEDS ORDERED: DEXTROSE 10% IV SOLUTION 1,000 ML IV SCH (03:10)
[2018-06-11] MEDS ORDERED: ACETAMINOPHEN 500 MG TAB (TYLENOL) PO PRN (03:15)
[2018-06-11] MEDS ORDERED: LORazepam INJ 2 MG/ML (ATIVAN) VIAL IV PRN (03:15)
[2018-06-11] MEDS ORDERED: ONDANSETRON 4 MG/2 ML (SDV) Z0FRAN IV PRN (03:15)
[2018-06-11] MEDS ORDERED: inSUlin REGULAR TPN/DRIP ONLY 250 UNITS in NORMAL SALINE 250 ML IV SCH (03:15)
[2018-06-11] MEDS: inSUlin ASPART (NovoLOG) 1 UNIT/0.01 ML (CHARGE PER UNIT) SC SCH ×6 (05:40→23:27)
[2018-06-11] MEDS ORDERED: inSUlin ASPART (NovoLOG) 1 UNIT/0.01 ML (CHARGE PER UNIT) SC SCH (06:00)
--- NOTE | 2018-06-11 06:10 | Diagnostic Imaging Report ---
INDICATION: "Stroke like symptoms" unwitnessed fall. FINDINGS: Noncontrast enhanced head CT performed. There is no intracranial hemorrhage. Atrophy and periventricular white matter small vessel disease stable chronic findings. No focal edema is found. No sulcal effacement. Orbits, sinuses and calvarium appeared nonacute. IMPRESSION: Chronic finding stable from prior. No hemorrhage, edema or acute appearing abnormality. Dictated by: Dictated on workstation # [id number]
--- NOTE | 2018-06-11 06:15 | Diagnostic Imaging Report ---
PROCEDURE: CT cervical spine without contrast. TECHNIQUE: Multiple contiguous axial images were obtained through the cervical spine without the use of intravenous contrast. Sagittal and coronal reformations were then performed. INDICATION: "Stroke like symptoms" unwitnessed fall Reconstruction views revealed body heights to be maintained and the alignment within normal limits. No fracture or acute endplate irregularity. No facet joint dislocation. The skull base appeared intact. There are degenerative changes to the discs, endplates, facets and uncovertebral joints throughout the cervical spine. Canal narrowing mild to moderate at the C3-4, C4-5, and C5-C6 levels. There is multilevel bony foraminal encroachment. An acute or posttraumatic abnormality, however, not identified. There is atherosclerotic vascular calcifications to the left greater than right carotids. IMPRESSION: Degenerative changes without fracture or traumatic malalignment. Carotid atherosclerosis. Dictated by: Dictated on workstation # [id number]
--- NOTE | 2018-06-11 06:21 | Diagnostic Imaging Report ---
PROCEDURE: CT angiography of the head and CT angiography of the neck with and without contrast. TECHNIQUE: Contiguous noncontrast images were obtained from the skull base through the vertex. After intravenous contrast administration, helical CT angiography of the neck was performed. Source data was reformatted into multiple 2D MIP projections. Delayed post contrast acquisition was also obtained. INDICATION: "Stroke like symptoms" fall. CT angio neck and head compared with 06/16/2014. Neck: Calcifications of the aortic arch chronic. Branching pattern of the great vessels unremarkable. Mixed heavy calcified as well as some soft plaque in the left carotid bulb extends into the proximal left ICA where the lumen is narrowed by about 70%. A more mild plaque at the right carotid bulb and bifurcation does not result in significant stenosis. The vertebrals are patent and codominant. CT angio head: There is calcified plaque at the cavernous segments of the intracranial carotids without hemodynamically significant degrees of stenosis. Middle cerebral arterial branches appeared patent. A-com and anterior cerebral unremarkable. The intrathecal vertebrals, the basilar and grade foreman unremarkable. Right INSPECTOR ALUMINUM BOAT is of origin. No aneurysm, branch occlusion, intraluminal thrombus or vascular malformation is seen. IMPRESSION: No large vessel occlusion or acute appearing pathology. Roughly 70% stenosis proximal left ICA owing to mixed soft and hard plaque. Intracranial calcified plaques without intracranial significant stenosis. No aneurysm or vascular malformation evident. Dictated by: Dictated on workstation # [id number]
[2018-06-11 06:44] LABS: BASOPHILS % (AUTO) 0 % (0-10); EOSINOPHILS % (AUTO) 0 % (0-10); HEMATOCRIT 48 % (35-52); HEMOGLOBIN 16.4 G/DL (11.5-16.0); LYMPHOCYTES # (AUTO) 2.1 X 10^3 (1.0-4.0); LYMPHOCYTES % (AUTO) 18 % (12-44); MEAN CORPUSCULAR HEMOGLOBIN 31 PG (25-34); MEAN CORPUSCULAR HGB CONC 34 G/DL (32-36); MEAN CORPUSCULAR VOLUME 90 FL (80-99); MONOCYTES # (AUTO) 0.7 X 10^3 (0.0-1.0); MONOCYTES % (AUTO) 6 % (0-12); NEUTROPHILS # (AUTO) 8.8 X 10^3 (1.8-7.8); NEUTROPHILS % (AUTO) 76 % (42-75); PLATELET COUNT 277 10^3/uL (130-400); RED BLOOD COUNT 5.31 10^6/uL (4.35-5.85); RED CELL DISTRIBUTION WIDTH 14.4 % (10.0-14.5); WHITE BLOOD COUNT 11.6 10^3/uL (4.3-11.0)
[2018-06-11 06:54] LABS: ALBUMIN 3.3 GM/DL (3.2-4.5); BILIRUBIN,TOTAL 0.2 MG/DL (0.1-1.0); CALCIUM 9.8 MG/DL (8.5-10.1); CREATININE SERUM 1.13 MG/DL (0.60-1.30); MAGNESIUM 3.9 MG/DL (1.8-2.4); PHOSPHORUS 2.6 MG/DL (2.3-4.7); POTASSIUM 5.8 MMOL/L (3.6-5.0); TOTAL PROTEIN 7.5 GM/DL (6.4-8.2)
[2018-06-11 07:02] LABS: CHOLESTEROL 252 MG/DL (< 200); HDL CHOLESTEROL 61 MG/DL (40-60); TRIGLYCERIDES 88 MG/DL (<150); VLDL CHOLESTEROL 18 MG/DL (5-40)
--- NOTE | 2018-06-11 07:02 | Diagnostic Imaging Report ---
EXAM: CHEST 1 VIEW, AP/PA ONLY INDICATION: Stroke. COMPARISON: Chest radiograph 03/06/2018. FINDINGS: Normal heart size and central pulmonary vascularity. No focal pulmonary opacity, pleural effusion or pneumothorax. Calcified aorta. Implanted loop recorder. Surgical clips in the upper abdomen. No acute osseous findings. IMPRESSION: No acute cardiopulmonary findings. Dictated by: Dictated on workstation # [id number]
[2018-06-11] MEDS ORDERED: FLU QUADRIvalent (5+ YOA) 2018-2019 (AFLURIA) 0.5 ML IM ONE (07:30)
--- NOTE | 2018-06-11 08:39 | History & Physicial ---
History of Present Illness History of Present Illness Reason for visit/HPI PT IS AN 88 YH/O FEMALE WHO IS WELL KNOWN TO ME FROM CLINIC. SHE PRESENTED TO THE EMERGENCY DEPARTMENT AFTER HAVING AN EPISODE OF SHAKING AND CONFUSION AT HOME. CONCERN BY EMS WAS FOR POSSIBLE STROKE, HOWEVER THE REPORT THAT HER DAUGHTER GAVE ME THIS MORNING WAS FOR SEIZURE LIKE ACTIVITY WITNESSED BY HER . APPARENTLY THEY HAD NOT BEEN FOLLOWING THEIR DIABETIC DIET, AND SHE HAD BEEN HAVING ELEVATED BLOOD GLUCOSE READINGS AND IN THE EMERGENCY DEPARTMENT HER BLOOD GLUCOSE WAS FOUND TO BE OVER 700. SHE WAS THUS ADMITTED TO THE ICU WITH HYPEROSMOLAR COMA Date of Admission Jun 11, 2018 at 00:30 Date Seen by a Provider: Jun 11, 2018 Time Seen by a Provider: 08:30 I consulted on this patient on 06/11/18 08:36 Attending Physician Jonn Sow MD Admitting Physician Jonn Sow MD Consult Allergies and Home Medications Allergies Coded Allergies: No Known Drug Allergies (Unverified , 03/17/18) Home Medications Amlodipine Besylate 5 Mg Tablet, 5 MG PO DAILY, (Reported) Apixaban 2.5 Mg Tablet, 2.5 MG PO BID, (Reported) Aspirin 81 Mg Tab.chew, 81 MG PO DAILY, (Reported) Atorvastatin Calcium 40 Mg Tablet, 40 MG PO HS, (Reported) Dronedarone HCl 400 Mg Tablet, 400 MG PO BID, (Reported) Furosemide 20 Mg Tablet, 20 MG PO DAILY PRN for SWELLING, (Reported) Insulin Aspart 300 Units/3 Ml Solution, SC AC, (Reported) 80-150 = 10 UNITS 151-200 = 15 UNITS 201-300 = 17 UNITS > 300 = 21 UNITS Insulin Glargine,Hum.rec.anlog 300 Unit/1 Ml Insuln.pen, 20 UNIT SQ HS, ( Reported) Losartan Potassium 100 Mg Tablet, 100 MG PO DAILY, (Reported) Metoprolol Succinate 25 Mg Tab.er.24h, 25 MG PO DAILY, (Reported) Potassium Chloride 10 Meq Tablet.er, 10 MEQ PO DAILY PRN for WHEN TAKING FUROSEMIDE, (Reported) Patient Home Medication List Home Medication List Reviewed: Yes Past Slwaave-Fjwrre-Rgsxoi Hx Patient Social History Marrital Status: Living Status: LIVES AT HOME WITH SPOUSE, LIVES IN [place], FROM [facility] Employed/Student: retired Alcohol Use: Denies Use Number of Drinks Today: DD Alcohol Beverage of Choice: Rum Recreational Drug Use: No 2nd Hand Smoke Exposure: No Physical Abuse Screen: No Sexual Abuse: No Recent Foreign Travel: No Contact w/other who traveled: No Recent Hopitalizations: Yes (ED VISITS FOR BLOOD SUGAR PROB) Recent Infectious Disease Expo: No Immunizations Up To Date Tetanus Booster (TDap): Unknown Pediatric: No Date of Pneumonia Vaccine: Jun 18, 2017 Date of Influenza Vaccine: Aug 08, 2017 Seasonal Allergies Seasonal Allergies: No Surgeries Yes (RIGHT FOOT SURGERY) Respiratory No Currently Using CPAP: No Currently Using BIPAP: No Cardiovascular Yes (STENTS, MONITOR PLACED BY DR. REHMAN) Atrial Fibrillation, Heart Attack, Hypertension, Peripheral Vascular Neurological Yes (SEIZURES WHEN BLOOD SUGAR IS HIGH) Stroke Reproductive System : No Hx Reproductive Disorders: No Sexually Transmitted Disease: No HIV/AIDS: No MANAGER BANQUET History: Menopausal Genitourinary Yes ( KIDNEY DISEASE) Renal Failure Gastrointestinal No Musculoskeletal Yes Arthritis Endocrine History of Endocrine Disorders: Yes Endocrine Disorders: Diabetes, Insulin dep HEENT History of HEENT Disorders: Yes HEENT Disorders: Cataract Loss of Vision: Denies Hearing Impairment: Hard of Hearing, Bilateral Hearing Aide Cancer No Psychosocial History of Psychiatric Problem: No Integumentary History of Skin or Integumenta: No Blood Transfusions History of Blood Disorders: No Adverse Reaction to a Blood Tr: No Reviewed Nursing Assessment Reviewed/Agree w Nursing PMH: Yes Family Medical History Significant Family History: Heart Disease, Diabetes, Hypertension, Stroke Family Hx: Alzheimer's disease 19 MOTHER, Arthritis 19 FATHER, 19 MOTHER, G8 BROTHER, G8 BROTHER, G8 BROTHER G8 SISTER G8 SISTER Cardiovascular disease 19 MOTHER, G8 BROTHER, Completed stroke 19 MOTHER, G8 SISTER Hypercholesterolemia 19 FATHER, G8 BROTHER, Hypertension 19 MOTHER, Myocardial infarction 19 FATHER, G8 BROTHER, Review of Systems Constitutional: No chills, No fever; malaise, weakness EENTM: hearing loss Respiratory: No cough, No dyspnea on exertion, No short of breath Cardiovascular: Hx of Intervention, vascular heart diseas Gastrointestinal: No nausea, No vomiting Genitourinary: no symptoms reported Musculoskeletal: no symptoms reported Skin: no symptoms reported Psychiatric/Neurological: Other (CONFUSION, SPEAKING IN ESTONIAN, UNABLE TO COMMUNICATE EFFECTIVELY DUE TO CONFUSION) Physical Exam Vital Signs Vital Signs - First Documented 06/10/18 22:00 Temp 97.6 Pulse 115 Resp 20 B/P (MAP) 246/128 (167) Pulse Ox 98 O2 Delivery Nasal Cannula O2 Flow Rate 6.00 Capillary Refill : Less Than 3 Seconds Height, Weight, BMI Height: 5'4.00" Weight: 107lbs. 9.0oz. [id number]; 18.5 BMI Method:Estimated General Appearance: WD/WN, Mild Distress Eyes: Bilateral Eye Normal Inspection, Bilateral Eye PERRL, Bilateral Eye EOMI HEENT: PERRL/EOMI, Pharynx Normal Neck: Full Range of Motion, Supple Respiratory: Chest Non Tender, Lungs Clear, Normal Breath Sounds, No Accessory Muscle Use Cardiovascular: Regular Rate, Rhythm Gastrointestinal: Normal Bowel Sounds, Non Tender, Soft Rectal: Deferred Extremity: Normal Capillary Refill, Non Tender, No Calf Tenderness, Pedal Edema (TRACE EDEMA) Neurologic/Psychiatric: Other (CONFUSED, WON'T OPEN EYES TO VERBAL STIMULI - WHEN AROUSED SHE SPEAKS IN ESTONIAN, DAUGHTER ABLE TO CALM HER) Skin: Warm/Dry Lymphatic: No Adenopathy Assessment/Plan Assessment and Plan HYPEROSMOLAR HYPERGLYCEMIC COMA DUE TO UNCONTROLLED DIABETES MELLITUS HYPERTENSION ATRIAL FIBRILLATION CHRONIC ANTICOAGULANT USE HYPERLIPIDEMIA HYPEROSMOLAR HYPERGLYCEMIC COMA DUE TO UNCONTROLLED DIABETES MELLITUS - IV FLUIDS - SUPPORTIVE CARE, WILL INITIATE ICU HYPERGLYCEMIC PROTOCOL. HYPERTENSION - HOLD ON TREATMENT AT THIS TIME - MONITOR BLOOD PRESSURES AND MAY INTERVENE IF BP IS ELEVATED ABOVE 200'S. ATRIAL FIBRILLATION - AND CHRONIC ANTICOAGULANT USE - HOLDING MEDICATION AT THIS TIME DUE TO PT IS NOT ABLE TO TAKE PO MEDS DUE TO CONFUSION. HYPERLIPIDEMIA - HOLD MEDS RIGHT NOW. Admission Diagnosis HYPEROSMOLAR HYPERGLYCEMIC COMA DUE TO UNCONTROLLED DIABETES MELLITUS HYPERTENSION ATRIAL FIBRILLATION CHRONIC ANTICOAGULANT USE HYPERLIPIDEMIA Admission Status: Inpatient Order (span 2 midnights) Reason for Inpatient Admission: PT ADMITTED INPATIENT DUE TO HYPEROSMOLAR HYPERGLYCEMIC COMA DUE TO UNCONTROLLED DIABETES MELLITUS WITH MENTAL STATUS CHANGES THAT WILL REQUIRE MORE THAN TWO MIDNIGHTS TO STABLIZE AND MAKE A TREATMENT PLAN. Clinical Quality Measures DVT/VTE Risk/Contraindication: Risk Factor Score Per Nursin RFS Level Per Nursing on Admit: 2=Moderate Stroke: Date of last known well: Jun 10, 2018 Time of last known well: 20:00 Symptoms onset unknown: No JONN SOW MD Jun 11, 2018 08:39
[2018-06-11 09:07] LABS: HEMOGLOBIN 14.9 G/DL (11.5-16.0); MEAN PLATELET VOLUME 10.8 FL (7.4-10.4); RED BLOOD COUNT 4.97 10^6/uL (4.35-5.85); RED CELL DISTRIBUTION WIDTH 14.1 % (10.0-14.5); WHITE BLOOD COUNT 12.7 10^3/uL (4.3-11.0)
[2018-06-11 09:28] LABS: ALBUMIN 3.3 GM/DL (3.2-4.5); BILIRUBIN,TOTAL 0.3 MG/DL (0.1-1.0); CREATININE SERUM 1.1 MG/DL (0.60-1.30); MAGNESIUM 1.8 MG/DL (1.8-2.4); POTASSIUM 3.5 MMOL/L (3.6-5.0); TOTAL PROTEIN 6.3 GM/DL (6.4-8.2)
[2018-06-11] MEDS ORDERED: INSU300I SQ (10:49)
[2018-06-11] MEDS ORDERED: METO-387 PO (10:49)
[2018-06-11] MEDS ORDERED: INSU100I14 SC (10:49)
[2018-06-11] MEDS ORDERED: AMLO5TAB7 PO (10:49)
[2018-06-11 14:27] LABS: CALCIUM 9.6 MG/DL (8.5-10.1); CREATININE SERUM 0.97 MG/DL (0.60-1.30); POTASSIUM 3.7 MMOL/L (3.6-5.0)
[2018-06-11] MEDS ORDERED: DEXTROSE 50% 50 ML (IMS) SYR IV ONE (16:00)
[2018-06-11] MEDS ORDERED: HALOPERIDOL 5 MG/ML (HALDOL) AMP IV ONE (23:30)
[2018-06-12] VITALS (23 sets, daily range): BP systolic 127–198; BP diastolic 56–99
[2018-06-12 04:08] LABS: BASOPHILS % (AUTO) 0 % (0-10); EOSINOPHILS # (AUTO) 0.1 10^3/uL (0.0-0.3); EOSINOPHILS % (AUTO) 1 % (0-10); HEMATOCRIT 43 % (35-52); HEMOGLOBIN 14.4 G/DL (11.5-16.0); LYMPHOCYTES # (AUTO) 3.4 X 10^3 (1.0-4.0); LYMPHOCYTES % (AUTO) 31 % (12-44); MEAN CORPUSCULAR HEMOGLOBIN 30 PG (25-34); MEAN CORPUSCULAR HGB CONC 33 G/DL (32-36); MEAN CORPUSCULAR VOLUME 89 FL (80-99); MEAN PLATELET VOLUME 10.8 FL (7.4-10.4); MONOCYTES # (AUTO) 0.9 X 10^3 (0.0-1.0); MONOCYTES % (AUTO) 8 % (0-12); NEUTROPHILS # (AUTO) 6.4 X 10^3 (1.8-7.8); NEUTROPHILS % (AUTO) 59 % (42-75); PLATELET COUNT 323 10^3/uL (130-400); RED BLOOD COUNT 4.82 10^6/uL (4.35-5.85); RED CELL DISTRIBUTION WIDTH 14.8 % (10.0-14.5); WHITE BLOOD COUNT 10.8 10^3/uL (4.3-11.0)
[2018-06-12 04:26] LABS: CALCIUM 9.8 MG/DL (8.5-10.1); CREATININE SERUM 0.92 MG/DL (0.60-1.30); MAGNESIUM 1.6 MG/DL (1.8-2.4); POTASSIUM 3.4 MMOL/L (3.6-5.0)
[2018-06-12] MEDS: inSUlin ASPART (NovoLOG) 1 UNIT/0.01 ML (CHARGE PER UNIT) SC SCH ×5 (04:47→20:00)
[2018-06-12] MEDS: NS IV 1000 ML 1,000 ML IV SCH ×2 (05:55→16:55)
--- NOTE | 2018-06-12 08:24 | Progress Note ---
Subjective Date Seen by a Provider: Jun 12, 2018 Time Seen by a Provider: 08:15 Subjective/Events-last exam PT IS OBTUNDED, NOT RESPONDING TO QUESTIONS. FAMILY REPORTS THAT SHE HAS BEEN SPEAKING IN ISRAELI AT TIMES, WAS MORE WORKED UP LAST NIGHT THAN SHE IS THIS MORNING. STAFF REPORTS DECREASED URINE OUTPUT, BUT STILL WITHIN NORMAL LIMITS OF URINE OUTPUT. PT NOT AWAKE ENOUGH TO TAKE IN PO. Review of Systems General: Fatigue, Other (CONFUSION) Pulmonary: No Dyspnea, No Cough Cardiovascular: No: Chest Pain Neurological: Weakness, Confusion Focused Exam Lactate Level 06/10/18 22:10: Lactic Acid Level 3.45*H 06/11/18 00:33: Lactic Acid Level 4.61*H Objective Exam Last Set of Vital Signs Vital Signs Date Time Temp Pulse Resp B/P (MAP) Pulse Ox O2 Delivery O2 Flow Rate FiO2 06/12/18 06:00 80 21 165/89 (114) 92 Room Air 06/12/18 04:00 98.1 06/11/18 01:20 2.00 Capillary Refill : Less Than 3 Seconds I&O Intake and Output 06/12/18 00:00 Intake Total 3050 ml Output Total 1300 ml Balance 1750 ml Intake Oral 0 ml IV Total 3050 ml Output Urine Total 1300 ml Daily Weight Change No General: Other (CONFUSED, NOT RESPONDING WELL TO VERBAL OR PHYSICAL STIMULI) HEENT: Atraumatic Neck: Supple Lungs: Clear to Auscultation (POOR EFFORT) Heart: Other (IRREGULARLY IRREGULAR WITH III/ KATIA) Extremities: No Clubbing, No Cyanosis Psych/Mental Status: Other (CONFUSED) Results Lab Laboratory Tests 06/11/18 09:00: White Blood Count 12.7H, Red Blood Count 4.97, Hemoglobin 14.9, Hematocrit 44, Mean Corpuscular Volume 88, Mean Corpuscular Hemoglobin 30, Mean Corpuscular Hemoglobin Concent 34, Red Cell Distribution Width 14.1, Platelet Count 343, Mean Platelet Volume 10.8H, Sodium Level 142, Potassium Level 3.5L, Chloride Level 109H, Carbon Dioxide Level 24, Anion Gap 9, Blood Urea Nitrogen 16, Creatinine 1.10, Estimat Glomerular Filtration Rate 47, BUN/Creatinine Ratio 15 , Glucose Level 128H, Calcium Level 10.0, Corrected Calcium 10.6H, Magnesium Level 1.8, Total Bilirubin 0.3, Aspartate Amino Transf (AST/SGOT) 26, Alanine Aminotransferase (ALT/SGPT) 32, Alkaline Phosphatase 103, Total Protein 6.3L, Albumin 3.3 06/11/18 11:30: Glucometer 73 06/11/18 12:23: Glucometer 72 06/11/18 13:55: Sodium Level 142, Potassium Level 3.7, Chloride Level 109H, Carbon Dioxide Level 25, Anion Gap 8, Blood Urea Nitrogen 16, Creatinine 0.97, Estimat Glomerular Filtration Rate 54, BUN/Creatinine Ratio 16, Glucose Level 72, Calcium Level 9.6 06/11/18 15:52: Glucometer 50*L 06/11/18 16:28: Glucometer 113H 06/11/18 19:55: Glucometer 67L 06/11/18 23:26: Glucometer 78 06/12/18 04:00: White Blood Count 10.8, Red Blood Count 4.82, Hemoglobin 14.4, Hematocrit 43, Mean Corpuscular Volume 89, Mean Corpuscular Hemoglobin 30, Mean Corpuscular Hemoglobin Concent 33, Red Cell Distribution Width 14.8H, Platelet Count 323, Mean Platelet Volume 10.8H, Neutrophils (%) (Auto) 59, Lymphocytes (%) (Auto) 31 , Monocytes (%) (Auto) 8, Eosinophils (%) (Auto) 1, Basophils (%) (Auto) 0, Neutrophils # (Auto) 6.4, Lymphocytes # (Auto) 3.4, Monocytes # (Auto) 0.9, Eosinophils # (Auto) 0.1, Basophils # (Auto) 0.0, Sodium Level 143, Potassium Level 3.4L, Chloride Level 114H, Carbon Dioxide Level 20L, Anion Gap 9, Blood Urea Nitrogen 13, Creatinine 0.92, Estimat Glomerular Filtration Rate 57, BUN/ Creatinine Ratio 14, Glucose Level 77, Calcium Level 9.8, Phosphorus Level 3.0, Magnesium Level 1.6L Microbiology 06/11/18 Blood Culture - Preliminary, Resulted No growth 06/10/18 Urine Culture - Preliminary, Resulted Gram Negative Maninder Assessment/Plan Assessment/Plan Assess & Plan/Chief Complaint HYPEROSMOLAR HYPERGLYCEMIC COMA DUE TO UNCONTROLLED DIABETES MELLITUS URINARY TRACT INFECTION HYPERTENSION ATRIAL FIBRILLATION CHRONIC ANTICOAGULANT USE HYPERLIPIDEMIA HYPEROSMOLAR HYPERGLYCEMIC COMA DUE TO UNCONTROLLED DIABETES MELLITUS - IV FLUIDS - SUPPORTIVE CARE, WITH BLOOD GLUCOSE BEING LOW - WILL ADD D5 NS TO HER FLUIDS AND TREAT ANY ELEVATIONS WITH INSULIN. HOPEFULLY SHE WILL AWAKEN MORE IN THE NEXT DAY AND WE CAN RE-INITIATE HOME MEDICATIONS. FOR NOW ALL OF HER HOME MEDS ARE ON HOLD. UTI - WAITING ON SPECIATION - GRAM NEGATIVE - ROCEPHIN STARTED. HYPERTENSION - PT NOT TAKING PO - WILL HAVE TO USE PRN IV MEDICATIONS TO BRING DOWN HER BLOOD PRESSURE. ATRIAL FIBRILLATION - AND CHRONIC ANTICOAGULANT USE - HOLDING ORAL MEDICATION AT THIS TIME DUE TO PT IS NOT ABLE TO TAKE PO MEDS DUE TO CONFUSION. - START LOVENOX, AND PT ON SCD'S. HYPERLIPIDEMIA - HOLD MEDS RIGHT NOW. Clinical Quality Measures Admission Status Admission Dx HYPEROSMOLAR HYPERGLYCEMIC COMA DUE TO UNCONTROLLED DIABETES MELLITUS HYPERTENSION ATRIAL FIBRILLATION CHRONIC ANTICOAGULANT USE HYPERLIPIDEMIA DVT/VTE Risk/Contraindication: Risk Factor Score Per Nursin RFS Level Per Nursing on Admit: 2=Moderate Stroke: Date of last known well: Jun 10, 2018 Time of last known well: 20:00 Symptoms onset unknown: No JONN YAO MD Jun 12, 2018 08:23
[2018-06-12] MEDS ORDERED: D5 NS 1000 ML IV SOLUTION 1,000 ML IV ONE (08:30)
[2018-06-12] MEDS ORDERED: NS (IVPB) 50 ML ONE (08:31)
[2018-06-12] MEDS: cefTRIAXone FOR IV USE 1,000 MG in NS (IVPB) 50 ML IV SCH ×2 (08:38→08:50)
[2018-06-12] MEDS ORDERED: D5 NS 1000 ML IV SOLUTION 1,000 ML IV SCH (09:30)
[2018-06-12] MEDS ORDERED: ENOXAPARIN 60 MG/0.6 ML (LOVENOX) SYR SC SCH (10:00)
[2018-06-12] MEDS: ENALAPRILAT 2.5 MG/2 ML (VASOTEC) VIAL IV SCH ×2 (10:21→13:21)
--- NOTE | 2018-06-12 10:22 | Diagnostic Imaging Report ---
INDICATION: CVA. COMPARISON: 06/10/2018. FINDINGS: The heart size is stable. The mediastinum is unremarkable. There is no pleural effusion, pneumothorax, or pneumonia. IMPRESSION: No acute cardiopulmonary abnormality. Dictated by: Dictated on workstation # [id number]
[2018-06-12] MEDS: DRONEDARONE TABLET 400 MG TABLET PO SCH (20:32)
[2018-06-12] MEDS: inSUlin DETERMIR 1 UNIT/0.01 ML (LEVEMIR) CHARGE PER UNIT SQ SCH (20:32)
[2018-06-12] MEDS: APIXABAN 2.5 MG (ELIQUIS) TABLET PO SCH (20:32)
[2018-06-12] MEDS: amLODIPine 5 MG (NORVASC) TAB PO SCH (20:33)
[2018-06-13] VITALS (21 sets, daily range): BP systolic 163–229; BP diastolic 63–95
[2018-06-13] MEDS: inSUlin ASPART (NovoLOG) 1 UNIT/0.01 ML (CHARGE PER UNIT) SC SCH ×7 (04:00→23:54)
[2018-06-13 04:23] LABS: BASOPHILS % (AUTO) 0 % (0-10); EOSINOPHILS # (AUTO) 0.2 10^3/uL (0.0-0.3); EOSINOPHILS % (AUTO) 2 % (0-10); HEMATOCRIT 42 % (35-52); HEMOGLOBIN 14.5 G/DL (11.5-16.0); LYMPHOCYTES # (AUTO) 4.4 X 10^3 (1.0-4.0); LYMPHOCYTES % (AUTO) 45 % (12-44); MEAN CORPUSCULAR HEMOGLOBIN 30 PG (25-34); MEAN CORPUSCULAR HGB CONC 34 G/DL (32-36); MEAN CORPUSCULAR VOLUME 88 FL (80-99); MEAN PLATELET VOLUME 11.2 FL (7.4-10.4); MONOCYTES # (AUTO) 0.9 X 10^3 (0.0-1.0); MONOCYTES % (AUTO) 9 % (0-12); NEUTROPHILS # (AUTO) 4.3 X 10^3 (1.8-7.8); NEUTROPHILS % (AUTO) 44 % (42-75); PLATELET COUNT 329 10^3/uL (130-400); RED BLOOD COUNT 4.79 10^6/uL (4.35-5.85); RED CELL DISTRIBUTION WIDTH 14.6 % (10.0-14.5); WHITE BLOOD COUNT 9.8 10^3/uL (4.3-11.0)
[2018-06-13 04:43] LABS: BUN/CREATININE RATIO 15; CALCIUM 9.7 MG/DL (8.5-10.1); CARBON DIOXIDE 20 MMOL/L (21-32); CHLORIDE 112 MMOL/L (98-107); CREATININE SERUM 0.86 MG/DL (0.60-1.30); GFR ESTIMATED > 60; GLUCOSE 69 MG/DL (70-105); MAGNESIUM 1.5 MG/DL (1.8-2.4); PHOSPHORUS 2.4 MG/DL (2.3-4.7); POTASSIUM 3.1 MMOL/L (3.6-5.0); SODIUM 142 MMOL/L (135-145)
[2018-06-13] MEDS ORDERED: POTASSIUM CL 10MEQ/50ML IVPB 300 ML IV ONE (06:07)
[2018-06-13] MEDS ORDERED: MAGNESIUM 1 GM/100 ML IVPB 400 ML IV ONE (06:07)
[2018-06-13] MEDS: NS IV 1000 ML 1,000 ML IV SCH (06:18)
[2018-06-13] MEDS: POTASSIUM CL 10MEQ/50ML IVPB 50 ML IV SCH ×2 (06:19→08:24)
[2018-06-13] MEDS: MAGNESIUM 1 GM/100 ML IVPB 100 ML IV SCH ×3 (06:19→08:25)
--- NOTE | 2018-06-13 06:49 | Diagnostic Imaging Report ---
INDICATION: Seizure and cerebrovascular accident. Upright portable AP view of the chest is obtained. Comparison is made study of 06/12/2018. FINDINGS: Overall heart size and pulmonary vascularity are within normal limits. No pneumothorax or consolidation is identified. Monitoring leads overlie the chest. IMPRESSION: No acute abnormality or adverse change is identified. Dictated by: Dictated on workstation # [id number]
[2018-06-13] MEDS: cefTRIAXone FOR IV USE 1,000 MG in NS (IVPB) 50 ML IV SCH (08:23)
[2018-06-13] MEDS: DRONEDARONE TABLET 400 MG TABLET PO SCH ×2 (08:25→20:56)
[2018-06-13] MEDS: LOSARTAN 100 MG (COZAAR) TABLET PO SCH (08:25)
[2018-06-13] MEDS: APIXABAN 2.5 MG (ELIQUIS) TABLET PO SCH ×2 (08:25→20:56)
--- NOTE | 2018-06-13 08:29 | Progress Note ---
Subjective Date Seen by a Provider: Jun 13, 2018 Time Seen by a Provider: 08:29 Subjective/Events-last exam PT IS CONFUSED, SHE WAS UNSURE WHO I WAS AT FIRST WHEN I WAS IN THE ROOM AND THEN SHE REMEMBERED WHO I WAS. SHE REPORTS THAT SHE IS FEELING BETTER, HER FAMILY REPORTS THAT SHE IS SPEAKING B[place] INTERMITTENTLY. Review of Systems General: Fatigue HEENT: No Head Aches Pulmonary: No Dyspnea, No Cough Cardiovascular: No: Chest Pain Gastrointestinal: No: Nausea, Abdominal Pain Neurological: Weakness, Confusion Focused Exam Lactate Level 06/10/18 22:10: Lactic Acid Level 3.45*H 06/11/18 00:33: Lactic Acid Level 4.61*H Objective Exam Last Set of Vital Signs Vital Signs Date Time Temp Pulse Resp B/P (MAP) Pulse Ox O2 Delivery O2 Flow Rate FiO2 06/13/18 07:00 80 06/13/18 06:00 29 186/68 (107) 96 Room Air 06/13/18 04:00 98.2 06/11/18 01:20 2.00 Capillary Refill : Less Than 3 Seconds I&O Intake and Output 06/13/18 00:00 Intake Total 1220 ml Output Total 1025 ml Balance 195 ml Intake Oral 170 ml IV Total 1050 ml Output Urine Total 1025 ml General: Alert, Other (STILL CONFUSED) HEENT: Atraumatic Neck: Supple Lungs: Clear to Auscultation (POOR EFFORT) Heart: Other (IRREGULARLY IRREGULAR WITH III/ KATIA) Extremities: No Clubbing, No Cyanosis Psych/Mental Status: Other (CONFUSED) Results Lab Laboratory Tests 06/12/18 08:48: Glucometer 105 06/12/18 13:11: Glucometer 169H 06/12/18 16:15: Glucometer 236H 06/12/18 20:00: Glucometer 176H 06/13/18 04:00: White Blood Count 9.8, Red Blood Count 4.79, Hemoglobin 14.5, Hematocrit 42, Mean Corpuscular Volume 88, Mean Corpuscular Hemoglobin 30, Mean Corpuscular Hemoglobin Concent 34, Red Cell Distribution Width 14.6H, Platelet Count 329, Mean Platelet Volume 11.2H, Neutrophils (%) (Auto) 44, Lymphocytes (%) (Auto) 45H, Monocytes (%) (Auto) 9, Eosinophils (%) (Auto) 2, Basophils (%) (Auto) 0, Neutrophils # (Auto) 4.3, Lymphocytes # (Auto) 4.4H, Monocytes # (Auto) 0.9, Eosinophils # (Auto) 0.2, Basophils # (Auto) 0.0, Sodium Level 142, Potassium Level 3.1L, Chloride Level 112H, Carbon Dioxide Level 20L, Anion Gap 10, Blood Urea Nitrogen 13, Creatinine 0.86, Estimat Glomerular Filtration Rate > 60, BUN/ Creatinine Ratio 15, Glucose Level 69L, Calcium Level 9.7, Phosphorus Level 2.4 , Magnesium Level 1.5L Microbiology 06/11/18 Blood Culture - Preliminary, Resulted No growth 06/11/18 MRSA Screen - Final, Complete MRSA not isolated 06/10/18 Urine Culture - Final, Complete Escherichia coli Assessment/Plan Assessment/Plan Assess & Plan/Chief Complaint HYPEROSMOLAR HYPERGLYCEMIC COMA DUE TO UNCONTROLLED DIABETES MELLITUS URINARY TRACT INFECTION HYPERTENSION ATRIAL FIBRILLATION CHRONIC ANTICOAGULANT USE HYPERLIPIDEMIA HYPEROSMOLAR HYPERGLYCEMIC COMA DUE TO UNCONTROLLED DIABETES MELLITUS - IV FLUIDS - SUPPORTIVE CARE, WITH BLOOD GLUCOSE BEING LOW -RESTART HOME MEDICATIONS, STOP D5NS. UTI - - ROCEPHIN STARTED. HYPERTENSION - RESTART HOME MEDICATIONS, MONITOR PRESSURE CLOSELY ATRIAL FIBRILLATION - AND CHRONIC ANTICOAGULANT USE - HOLDING ORAL MEDICATION AT THIS TIME DUE TO PT IS NOT ABLE TO TAKE PO MEDS DUE TO CONFUSION. - START LOVENOX, AND PT ON SCD'S. HYPERLIPIDEMIA - HOLD MEDS RIGHT NOW. Clinical Quality Measures Admission Status Admission Dx HYPEROSMOLAR HYPERGLYCEMIC COMA DUE TO UNCONTROLLED DIABETES MELLITUS HYPERTENSION ATRIAL FIBRILLATION CHRONIC ANTICOAGULANT USE HYPERLIPIDEMIA HYPEROSMOLAR HYPERGLYCEMIC COMA DUE TO UNCONTROLLED DIABETES MELLITUS - IV FLUIDS - SUPPORTIVE CARE, WILL INITIATE ICU HYPERGLYCEMIC PROTOCOL. HYPERTENSION - HOLD ON TREATMENT AT THIS TIME - MONITOR BLOOD PRESSURES AND MAY INTERVENE IF BP IS ELEVATED ABOVE 200'S. ATRIAL FIBRILLATION - AND CHRONIC ANTICOAGULANT USE - HOLDING MEDICATION AT THIS TIME DUE TO PT IS NOT ABLE TO TAKE PO MEDS DUE TO CONFUSION. HYPERLIPIDEMIA - HOLD MEDS RIGHT NOW. DVT/VTE Risk/Contraindication: Risk Factor Score Per Nursin RFS Level Per Nursing on Admit: 2=Moderate Stroke: Date of last known well: Jun 10, 2018 Time of last known well: 20:00 Symptoms onset unknown: No JONN YAO MD Jun 13, 2018 08:29
[2018-06-13] MEDS ORDERED: NS W/KCL 20 MEQ/L 1,000 ML IV SCH (08:45)
[2018-06-13] MEDS ORDERED: hydrALAZINE (APRESOLINE) 25 MG TAB PO ONE (19:30)
[2018-06-13] MEDS: amLODIPine 5 MG (NORVASC) TAB PO SCH (20:56)
[2018-06-13] MEDS: inSUlin DETERMIR 1 UNIT/0.01 ML (LEVEMIR) CHARGE PER UNIT SQ SCH (20:57)
[2018-06-13] MEDS ORDERED: hydrALAZINE (APRESOLINE) 25 MG TAB ONE (23:35)
[2018-06-14] VITALS (7 sets, daily range): BP systolic 140–170; BP diastolic 60–80
[2018-06-14] MEDS ORDERED: hydrALAZINE (APRESOLINE) 25 MG TAB PO ONE
[2018-06-14] MEDS: inSUlin ASPART (NovoLOG) 1 UNIT/0.01 ML (CHARGE PER UNIT) SC SCH ×5 (04:00→20:36)
[2018-06-14 06:00] LABS: BASOPHILS % (AUTO) 0 % (0-10); EOSINOPHILS # (AUTO) 0.1 10^3/uL (0.0-0.3); EOSINOPHILS % (AUTO) 1 % (0-10); HEMATOCRIT 42 % (35-52); HEMOGLOBIN 14.3 G/DL (11.5-16.0); LYMPHOCYTES # (AUTO) 2.8 X 10^3 (1.0-4.0); LYMPHOCYTES % (AUTO) 29 % (12-44); MEAN CORPUSCULAR HEMOGLOBIN 30 PG (25-34); MEAN CORPUSCULAR HGB CONC 34 G/DL (32-36); MEAN CORPUSCULAR VOLUME 88 FL (80-99); MEAN PLATELET VOLUME 10.8 FL (7.4-10.4); MONOCYTES # (AUTO) 0.9 X 10^3 (0.0-1.0); MONOCYTES % (AUTO) 9 % (0-12); NEUTROPHILS % (AUTO) 61 % (42-75); PLATELET COUNT 368 10^3/uL (130-400); RED BLOOD COUNT 4.78 10^6/uL (4.35-5.85); RED CELL DISTRIBUTION WIDTH 14.9 % (10.0-14.5); WHITE BLOOD COUNT 9.8 10^3/uL (4.3-11.0)
[2018-06-14] MEDS ORDERED: POTASSIUM CL 10MEQ/50ML IVPB 50 ML IV SCH (06:00)
[2018-06-14] MEDS ORDERED: MAGNESIUM 1 GM/100 ML IVPB 100 ML IV SCH (06:00)
[2018-06-14] MEDS ORDERED: KCL 20 MEQ TAB (K-DUR) PO SCH (06:00)
[2018-06-14 06:27] LABS: CALCIUM 10.1 MG/DL (8.5-10.1); CREATININE SERUM 0.92 MG/DL (0.60-1.30); MAGNESIUM 2.2 MG/DL (1.8-2.4); POTASSIUM 3.9 MMOL/L (3.6-5.0)
--- NOTE | 2018-06-14 07:55 | Diagnostic Imaging Report ---
INDICATION: CVA. COMPARISON: 06/13/2018 FINDINGS: Single frontal radiographic view of the chest was obtained and demonstrates normal cardiac silhouette. Pulmonary vasculature appears slightly prominent. Pulmonary interstitium may be slightly prominent as well. There is no focal alveolar consolidation, large effusion, nor pneumothorax. Bony structures show no gross acute abnormalities. IMPRESSION: 1. Slight prominence of pulmonary vasculature and pulmonary interstitium concerning for congestion with perhaps early interstitial edema. Clinical correlation and followup is recommended. Dictated by: Dictated on workstation # [id number]
--- NOTE | 2018-06-14 09:33 | Progress Note (SOAP) ---
Subjective Date Seen by a Provider: Jun 14, 2018 Time Seen by a Provider: 09:15 Subjective/Events-last exam PT REPORTS THAT SHE IS FEELING A LITTLE BIT BETTER TODAY, SHE KNEW WHO I WAS, REPORTS THAT SHE DOES NOT HAVE ANY PAIN IN HER CHEST, ABDOMEN, IS BREATHING FINE. SHE DENIES URINARY ISSUES. Review of Systems General: Fatigue Pulmonary: No Dyspnea, No Cough Cardiovascular: No: Chest Pain Gastrointestinal: No: Nausea, Abdominal Pain Neurological: Confusion; No: Weakness Objective Exam Vital Signs Date Time Temp Pulse Resp B/P (MAP) Pulse Ox O2 Delivery O2 Flow Rate FiO2 06/14/18 08:16 98.1 79 16 160/78 (105) 97 Room Air 06/14/18 06:03 158/70 (99) 06/14/18 04:13 97.9 71 18 166/78 (107) 96 Room Air 06/14/18 00:53 168/60 (96) 06/13/18 23:56 97.4 74 18 182/84 (116) 96 Room Air 06/13/18 20:30 178/84 (115) 06/13/18 20:00 Room Air 06/13/18 19:20 96.9 76 18 201/82 (121) 97 Room Air 06/13/18 16:30 220/95 (136) 229/92 (137) 06/13/18 16:20 98.2 73 18 198/88 (124) 96 Room Air 06/13/18 15:00 72 23 195/74 (114) 95 Room Air 06/13/18 14:00 66 16 163/64 (97) 95 Room Air 06/13/18 13:00 67 22 168/69 (102) 96 Room Air 06/13/18 13:00 68 06/13/18 12:00 61 17 164/68 (100) 95 Room Air 06/13/18 11:08 96 Room Air 06/13/18 11:00 66 21 182/73 (109) 97 Room Air 06/13/18 10:00 67 22 173/68 (103) 94 Room Air I & O 06/14/18 06:59 Intake Total 920 ml Output Total 925 ml Balance -5 ml Capillary Refill : Less Than 3 Seconds General Appearance: No Apparent Distress, WD/WN HEENT: PERRL/EOMI Neck: Supple Respiratory: Chest Non Tender, Lungs Clear, Normal Breath Sounds Cardiovascular: Regular Rate, Rhythm Gastrointestinal: normal bowel sounds, non tender, soft Neurologic/Psychiatric: Alert, Oriented x3, Normal Mood/Affect Results Lab Laboratory Tests 06/13/18 11:15: Glucometer 189H 06/13/18 16:22: Glucometer 239H 06/13/18 19:56: Glucometer 226H 06/13/18 23:44: Glucometer 129H 06/14/18 03:58: Glucometer 84 06/14/18 05:51: White Blood Count 9.8, Red Blood Count 4.78, Hemoglobin 14.3, Hematocrit 42, Mean Corpuscular Volume 88, Mean Corpuscular Hemoglobin 30, Mean Corpuscular Hemoglobin Concent 34, Red Cell Distribution Width 14.9H, Platelet Count 368, Mean Platelet Volume 10.8H, Neutrophils (%) (Auto) 61, Lymphocytes (%) (Auto) 29 , Monocytes (%) (Auto) 9, Eosinophils (%) (Auto) 1, Basophils (%) (Auto) 0, Neutrophils # (Auto) 6.0, Lymphocytes # (Auto) 2.8, Monocytes # (Auto) 0.9, Eosinophils # (Auto) 0.1, Basophils # (Auto) 0.0, Sodium Level 139, Potassium Level 3.9, Chloride Level 113H, Carbon Dioxide Level 19L, Anion Gap 7, Blood Urea Nitrogen 17, Creatinine 0.92, Estimat Glomerular Filtration Rate 57, BUN/ Creatinine Ratio 18, Glucose Level 111H, Calcium Level 10.1, Phosphorus Level 3.0, Magnesium Level 2.2 06/14/18 07:56: Glucometer 119H Microbiology 06/11/18 Blood Culture - Preliminary, Resulted No growth 06/11/18 MRSA Screen - Final, Complete MRSA not isolated 06/10/18 Urine Culture - Final, Complete Escherichia coli Assessment/Plan Assessment/Plan Assess & Plan/Chief Complaint HYPEROSMOLAR HYPERGLYCEMIC COMA DUE TO UNCONTROLLED DIABETES MELLITUS URINARY TRACT INFECTION HYPERTENSION ATRIAL FIBRILLATION CHRONIC ANTICOAGULANT USE HYPERLIPIDEMIA HYPEROSMOLAR HYPERGLYCEMIC COMA DUE TO UNCONTROLLED DIABETES MELLITUS - IV FLUIDS - SUPPORTIVE CARE, WITH BLOOD GLUCOSE BEING LOW -RESTARTED HOME MEDICATIONS. UTI - - ROCEPHIN STARTED. HYPERTENSION - RESTARTED HOME MEDICATIONS - USE PRN MEDICATION TO BRING BLOOD GLUCOSE. ATRIAL FIBRILLATION - AND CHRONIC ANTICOAGULANT USE -RESTART HOME MEDICATIONS HYPERLIPIDEMIA - HOLD MEDS RIGHT NOW. Clinical Quality Measures Admission Status Admission Dx HYPEROSMOLAR HYPERGLYCEMIC COMA DUE TO UNCONTROLLED DIABETES MELLITUS HYPERTENSION ATRIAL FIBRILLATION CHRONIC ANTICOAGULANT USE HYPERLIPIDEMIA HYPEROSMOLAR HYPERGLYCEMIC COMA DUE TO UNCONTROLLED DIABETES MELLITUS - IV FLUIDS - SUPPORTIVE CARE, WILL INITIATE ICU HYPERGLYCEMIC PROTOCOL. HYPERTENSION - HOLD ON TREATMENT AT THIS TIME - MONITOR BLOOD PRESSURES AND MAY INTERVENE IF BP IS ELEVATED ABOVE 200'S. ATRIAL FIBRILLATION - AND CHRONIC ANTICOAGULANT USE - HOLDING MEDICATION AT THIS TIME DUE TO PT IS NOT ABLE TO TAKE PO MEDS DUE TO CONFUSION. HYPERLIPIDEMIA - HOLD MEDS RIGHT NOW. DVT/VTE Risk/Contraindication: Risk Factor Score Per Nursin RFS Level Per Nursing on Admit: 2=Moderate Stroke: Date of last known well: Jun 10, 2018 Time of last known well: 20:00 Symptoms onset unknown: No JONN YAO MD Jun 14, 2018 09:33
[2018-06-14] MEDS: ASPIRIN 81 MG CHEW (CHILDREN'S ASA) PO SCH (09:58)
[2018-06-14] MEDS: APIXABAN 2.5 MG (ELIQUIS) TABLET PO SCH ×2 (09:58→20:37)
[2018-06-14] MEDS: meTOproloL SUCCINATE 50 MG (TOPROL XL) TAB PO SCH (09:58)
[2018-06-14] MEDS: LOSARTAN 100 MG (COZAAR) TABLET PO SCH (09:58)
[2018-06-14] MEDS: cefTRIAXone FOR IV USE 1,000 MG in NS (IVPB) 50 ML IV SCH (09:58)
[2018-06-14] MEDS: DRONEDARONE TABLET 400 MG TABLET PO SCH ×2 (10:21→20:37)
--- NOTE | 2018-06-14 10:56 | Physical Therapy Evaluation ---
PT Evaluation-General Medical Diagnosis Admission Date Jun 11, 2018 at 00:30 Medical Diagnosis: DM/HTN Onset Date: Jun 11, 2018 Therapy Diagnosis Therapy Diagnosis: debility/weakness Height/Weight Height (Feet): 5 Height (Inches): 4.00 Weight (Pounds): 107 Weight (Ounces): 6.0 Precautions Precautions/Isolations: Fall Prevention, Standard Precautions Weight Bear Status Right Lower Extremity: Right Full Weight Bearing Left Lower Extremity: Left Full Weight Bearing Referral Physician: Juanjose Reason for Referral: Evaluation/Treatment Medical History Pertinent Medical History: Atrial Fib, CAD, DM, Dementia, HTN, PVD, Renal Insufficiency Current History EMS secondary to right slump and facial deviation Reviewed History: Yes Social History Home: Single Level Current Living Status: Spouse Prior/Core FIM Prior Level of Function Functional [place] Measure 0=Not Assessed/NA 4=Minimal Assistance 1=Total Assistance 5=Supervision or Setup 2=Maximal Assistance 6=Modified [place] 3=Moderate Assistance 7=Complete [place] Bed Mobility: 6 Transfers (B,C,W/C) (FIM): 6 Gait: 6 PT Evaluation-Current Subjective Patient agrees to PT. Spouse present in room. Pain Numeric Pain Scale: 0-No Pain Location: No Pain Reported Objective Patient Orientation: Confused Problem Solving: Poor ROM/Strength ROM Lower Extremities bilateral LE WFL Strength Lower Extremities 4-/5 grossly bilaterally Integumentary/Posture Integumentary refer to nursing notes Bowel Incontinence: No Bladder Incontinence: Yes Posture WFL Neuromuscular (Tone, Coordination, Reflexes) grossly intact Sensory Vision: Wears Glasses Hearing: Impaired Sensation Right Lower Extremit: Impaired Sensation Left Lower Extremity: Impaired Transfers Functional [place] Measure 0=Not Assessed/NA 4=Minimal Assistance 1=Total Assistance 5=Supervision or Setup 2=Maximal Assistance 6=Modified [place] 3=Moderate Assistance 7=Complete [place] Transfers (B, C, W/C) (FIM): 5 Scootin Rollin Supine to/from Sit: 5 Sit to/from Stand: 5 Gait Mode of Locomotion: Walk Anticipated Mode of Locomotion: Walk Gait (FIM): 5 Distance (FIM): 3=150 ft Distance: 250' Gait Level of Assist: 5 Gait Assistive Device: FWW Comments/Gait Description safe and functional Balance Sitting Static: Normal Sitting Dynamic: Normal Standing Static: Normal Standing Dynamic: Normal Assessment/Needs 88. y.o. female, will benefit from short term skilled PT to address functional strength and mobility to improve current LOF and to safely transfer to LTC for continued care. Rehab Potential: Fair PT Lockstitch Lining Setter Goals Lockstitch Lining Setter Goals PT Fdc Goals Time Frame: Jun 20, 2018 Transfers (B,C,W/C) (FIM): 6 Gait (FIM): 6 Gait distance (FIM): 3=150 ft Gait Level of Assist: 6 PT Plan Treatment/Plan Treatment Plan: Continue Plan of Care Treatment Plan: Education, Functional Activity Ravi, Functional Strength, Gait , Safety, Therapeutic Exercise Treatment Duration: Jun 20, 2018 Frequency: 6 times per week Estimated Hrs Per Day: .25 hour per day Patient and/or Family Agrees t: Yes Time/GCodes Time In: 1023 Time Out: 1040 Total Billed Treatment Time: 17 [facility] K[facility]A [facility] Jun 14, 2018 10:56
--- NOTE | 2018-06-14 15:28 | Occupational Therapy Eval ---
OT Evaluation-General/PLF Medical Diagnosis Admission Date Jun 11, 2018 at 00:30 Medical Diagnosis: hyperosmolar coma Onset Date: Jun 11, 2018 Therapy Diagnosis Therapy Diagnosis: Weakness Height/Weight Height (Feet): 5 Height (Inches): 4.00 Weight (Pounds): 107 Weight (Ounces): 6.0 Precautions Precautions/Isolations: Fall Prevention, Standard Precautions Safety Interventions: None Weight Bear Status Weight Bearing Restriction: Weight Bearing/Tolerated Referral Physician: Juanjsoe Referral Reason: Activity Tolerance, Self Care, Evaluation/Treatment, Strengthening/ROM Medical History Pertinent Medical History: Atrial Fib, CAD, DM, Dementia, HTN, PVD, Renal Insufficiency Additional Medical History Right foot surgery Current History Pt. came to ER with blood sugar over 700. Reviewed History: Yes Social History Home: Single Level Current Living Status: Spouse Entry Into Home: Stairs With Railing Steps Into Home: 3 ADL-Prior Level of Function ADL PLOF Comments Pt. is [place] and has difficulty understanding this OT. There may be a language barrier as well. Spouse in room and answers many questions for pt. States that up until 3 weeks ago, pt. able to bathe and dress herself. States that she has had a "setback" and has difficulty with ADL tasks. DME/Equipment: Bath Chair, Shower DME/Equipment Comments Pt. has a walker. OT Current Status Subjective No pain reported. Appearance Pt. up in chair. Alert but undecided if she is oriented. Mental Status/Objective Patient Orientation: Unable to Assess Current Glasses/Contacts: Yes Hand Dominance: Right Upper Extremity ROM WFL Upper Extremity Strength 3/5 bilateral UE strength ADL-Treatment Functional [place] Measure 0=Not Assessed/NA 4=Minimal Assistance 1=Total Assistance 5=Supervision or Setup 2=Maximal Assistance 6=Modified [place] 3=Moderate Assistance 7=Complete IndependenceIRFPAI Quality Coding Scale 6 Independent with activity with or without an assistive device 5 Patient requires set up or clean up by helper. Patient completes activity by themselves 4 Supervision or touching assist (CGA). [place] provide cues , steadying assist 3 The helper provides less than half the effort to complete the activity 2 The helper provides more than half the effort to complete the activity 1 Dependent. The helper does all the effort to complete an activity 7 Patient refused to complete or attempt activity 9 The patient did not perform the activity before the current illness or injury 88 Not attempted due to Medical conditions or safety concerns Eating (FIM): 5 Lower Body Dressing (FIM): 3 (Pt. struggles and requires mod assist overall to doff/don socks.) Transfers (B, C, W/C) (FIM): 4 (Min assist to stand.) Other Treatments Pt. up in chair. Very [place] and spouse answers most questions for her. Pt. finishing her meal, and company came to visit. Educated pt. and spouse of purpose of OT and need to gain strength. Spouse verbalizes understanding of this. All needs met in room. Education OT Patient Education: Correct positioning, Modified ADL techniques, Progress toward Goal/Update tx plan, Purpose of tx/functional activities, Reviewed precautions, Rehab process, Transfer techniques Teaching Recipient: Patient Teaching Methods: Demonstration, Discussion Response to Teaching: Verbalize Understanding, Return Demonstration OT Short Term Goals Short Term Goals Time Frame: Jun 21, 2018 Eating(FIM): 5 Grooming(FIM): 5 Bathing(FIM): 4 Upper Body Dressing(FIM): 4 Lower Body Dressing(FIM): 4 Toileting(FIM): 5 Transfers (B,C,W/C) (FIM): 5 Toilet/Commode Transfer(FIM): 5 1=Demonstrate adherence to instructed precautions during ADL tasks. 2=Patient will verbalize/demonstrate understanding of assistive devices/ modifications for ADL. 3=Patient will improve strength/tolerance for activity to enable patient to perform ADL's. OT Underground Supervisor Goals Underground Supervisor Goals Time Frame: Jun 28, 2018 Eating (FIM): 6 Grooming(FIM): 5 Bathing(FIM): 5 Upper Body Dressing(FIM): 5 Lower Body Dressing(FIM): 5 Toileting(FIM): 6 Transfers (B,C,W/C) (FIM): 6 Toilet/Commode Transfer(FIM): 6 Shower Transfer(FIM): 4 Additional Goals: 1-Demonstrate ADL Tasks, 2-Verbalize Understanding, 3- ImproveStrength/Ravi 1=Demonstrate adherence to instructed precautions during ADL tasks. 2=Patient will verbalize/demonstrate understanding of assistive devices/ modifications for ADL. 3=Patient will improve strength/tolerance for activity to enable patient to perform ADL's. OT Education/Plan Problem List/Assessment Assessment: Decreased Activ Tolerance, Decreased UE Strength, Dependent Transfers, Impaired Cognition, Impaired Funct Balance, Impaired I ADL's, Impaired Self-Care Skills Discharge Recommendations Plan/Recommendations: Continue POC Therapy D/C Recommendations: Assisted Living Treatment Plan/Plan of Care Treatment,Training & Education: Yes Patient would benefit from OT for education, treatment and training to promote independence in ADL's, mobility, safety and/or upper extremity function for ADL' s. Plan of Care: ADL Retraining, Caregiver Training, Functional Mobility, UE Funct Exercise/Act Treatment Duration: Jun 28, 2018 Frequency: 5 times per week Estimated Hrs Per Day: .25 hour per day Agreement: Yes Rehab Potential: Fair Time/GCodes Start Time: 14:00 Stop Time: 14:10 Total Time Billed (hr/min): 10 Billed Treatment Time 1, ASIF HORTA OT Jun 14, 2018 15:28
[2018-06-14] MEDS: inSUlin DETERMIR 1 UNIT/0.01 ML (LEVEMIR) CHARGE PER UNIT SQ SCH (20:36)
[2018-06-14] MEDS: amLODIPine 5 MG (NORVASC) TAB PO SCH (20:37)
[2018-06-14] MEDS ORDERED: ATORVASTATIN 40 MG (LIPITOR) TABLET PO SCH (21:00)
[2018-06-15] VITALS: BP 162/64
[2018-06-15] MEDS: inSUlin ASPART (NovoLOG) 1 UNIT/0.01 ML (CHARGE PER UNIT) SC SCH ×4 (00:23→12:00)
[2018-06-15 04:00] VITALS: BP 142/78
[2018-06-15 05:55] LABS: BASOPHILS % (AUTO) 0 % (0-10); EOSINOPHILS # (AUTO) 0.2 10^3/uL (0.0-0.3); EOSINOPHILS % (AUTO) 2 % (0-10); HEMATOCRIT 45 % (35-52); HEMOGLOBIN 15.4 G/DL (11.5-16.0); LYMPHOCYTES # (AUTO) 3.3 X 10^3 (1.0-4.0); LYMPHOCYTES % (AUTO) 36 % (12-44); MEAN CORPUSCULAR HEMOGLOBIN 31 PG (25-34); MEAN CORPUSCULAR HGB CONC 35 G/DL (32-36); MEAN CORPUSCULAR VOLUME 89 FL (80-99); MONOCYTES # (AUTO) 1.1 X 10^3 (0.0-1.0); MONOCYTES % (AUTO) 12 % (0-12); NEUTROPHILS # (AUTO) 4.7 X 10^3 (1.8-7.8); NEUTROPHILS % (AUTO) 50 % (42-75); PLATELET COUNT 298 10^3/uL (130-400); RED CELL DISTRIBUTION WIDTH 15.3 % (10.0-14.5); WHITE BLOOD COUNT 9.4 10^3/uL (4.3-11.0)
[2018-06-15 06:25] LABS: CALCIUM 9.7 MG/DL (8.5-10.1); CREATININE SERUM 1.01 MG/DL (0.60-1.30); MAGNESIUM 2.3 MG/DL (1.8-2.4); PHOSPHORUS 3.9 MG/DL (2.3-4.7); POTASSIUM 4.5 MMOL/L (3.6-5.0)
[2018-06-15 08:00] VITALS: BP 176/77
[2018-06-15] MEDS ORDERED: FLU QUADRIvalent (5+ YOA) 2018-2019 (AFLURIA) 0.5 ML IM ONE (09:56)
--- NOTE | 2018-06-15 10:00 | Discharge Summary ---
Diagnosis/Chief Complaint Date of Admission Jun 11, 2018 at 00:30 Date of Discharge Discharge Date: Jun 15, 2018 Discharge Time: 10:00 Admission Diagnosis Admission Diagnosis HYPEROSMOLAR HYPERGLYCEMIC COMA DUE TO UNCONTROLLED DIABETES MELLITUS URINARY TRACT INFECTION HYPERTENSION ATRIAL FIBRILLATION CHRONIC ANTICOAGULANT USE HYPERLIPIDEMIA Discharge Diagnosis HYPEROSMOLAR HYPERGLYCEMIC COMA DUE TO UNCONTROLLED DIABETES MELLITUS URINARY TRACT INFECTION DUE TO ECOLI HYPERTENSION ATRIAL FIBRILLATION CHRONIC ANTICOAGULANT USE HYPERLIPIDEMIA Reason Hospital Visit PT IS AN 88 YH/O FEMALE WHO IS WELL KNOWN TO ME FROM CLINIC. SHE PRESENTED TO THE EMERGENCY DEPARTMENT AFTER HAVING AN EPISODE OF SHAKING AND CONFUSION AT HOME. CONCERN BY EMS WAS FOR POSSIBLE STROKE, HOWEVER THE REPORT THAT HER DAUGHTER GAVE ME THIS MORNING WAS FOR SEIZURE LIKE ACTIVITY WITNESSED BY HER . APPARENTLY THEY HAD NOT BEEN FOLLOWING THEIR DIABETIC DIET, AND SHE HAD BEEN HAVING ELEVATED BLOOD GLUCOSE READINGS AND IN THE EMERGENCY DEPARTMENT HER BLOOD GLUCOSE WAS FOUND TO BE OVER 700. SHE WAS THUS ADMITTED TO THE ICU WITH HYPEROSMOLAR COMA Discharge Summary Discharge Physical Examination Allergies: Coded Allergies: No Known Drug Allergies (Unverified , 03/17/18) Vitals & I&Os Vital Signs Date Time Temp Pulse Resp B/P (MAP) Pulse Ox O2 Delivery O2 Flow Rate FiO2 06/15/18 04:00 97.3 64 16 142/78 (99) 93 Room Air 06/11/18 01:20 2.00 General Appearance: Alert, Oriented X3, Cooperative, No Acute Distress HEENT: Atraumatic, PERRLA Respiratory: Clear to Auscultation Cardiovascular: Regular Rate, Other (IRREGULARLY IRREGULAR WITH III/ KATIA) Abdominal: Normal Bowel Sounds, Soft Extremities: No Clubbing, No Cyanosis Skin: No Rashes, No Breakdown Neuro: Cranial Nerves 3-12 NL Psych/Mental Status: Mental Status NL, Mood NL Hospital Course HYPEROSMOLAR HYPERGLYCEMIC COMA DUE TO UNCONTROLLED DIABETES MELLITUS URINARY TRACT INFECTION WITH ECOLI HYPERTENSION ATRIAL FIBRILLATION CHRONIC ANTICOAGULANT USE HYPERLIPIDEMIA HYPEROSMOLAR HYPERGLYCEMIC COMA DUE TO UNCONTROLLED DIABETES MELLITUS - IV FLUIDS - SUPPORTIVE CARE, WITH BLOOD GLUCOSE BEING LOW -RESTARTED HOME MEDICATIONS. UTI WITH ECOLI- - ROCEPHIN STARTED - WILL CONTINUE WITH CEFDINIR OUTPATIENT HYPERTENSION - RESTARTED HOME MEDICATIONS - USE PRN MEDICATION TO BRING BLOOD GLUCOSE. ATRIAL FIBRILLATION - AND CHRONIC ANTICOAGULANT USE -RESTARTED HOME MEDICATIONS HYPERLIPIDEMIA -RESTART HOME MEDICATIONS. Pending Labs Laboratory Tests 06/15/18 04:48: Glucometer 53 06/15/18 05:31: Glucometer 101 06/15/18 05:35: White Blood Count 9.4, Red Blood Count 5.00, Hemoglobin 15.4, Hematocrit 45, Mean Corpuscular Volume 89, Mean Corpuscular Hemoglobin 31, Mean Corpuscular Hemoglobin Concent 35, Red Cell Distribution Width 15.3, Platelet Count 298, Mean Platelet Volume 11.0, Neutrophils (%) (Auto) 50, Lymphocytes (%) (Auto) 36 , Monocytes (%) (Auto) 12, Eosinophils (%) (Auto) 2, Basophils (%) (Auto) 0, Neutrophils # (Auto) 4.7, Lymphocytes # (Auto) 3.3, Monocytes # (Auto) 1.1, Eosinophils # (Auto) 0.2, Basophils # (Auto) 0.0, Sodium Level 137, Potassium Level 4.5, Chloride Level 111, Carbon Dioxide Level 17, Anion Gap 9, Blood Urea Nitrogen 19, Creatinine 1.01, Estimat Glomerular Filtration Rate 52, BUN/ Creatinine Ratio 19, Glucose Level 99, Calcium Level 9.7, Phosphorus Level 3.9, Magnesium Level 2.3 06/15/18 09:57: Glucometer 209 Discharge Condition at discharge IMPROVED Instructions to patient/family Please see electronic discharge instructions given to patient. Discharge Medications Reviewed and agree with Discharge Medication list on patient's Discharge Instruction sheet Clinical Quality Measures DVT/VTE Risk/Contraindication: Risk Factor Score Per Nursin RFS Level Per Nursing on Admit: 2=Moderate Stroke: Date of last known well: Jun 10, 2018 Time of last known well: 20:00 Symptoms onset unknown: No JONN YAO MD Jun 15, 2018 10:00
[2018-06-15] MEDS ORDERED: METO-370 PO (10:06)
[2018-06-15] MEDS: meTOproloL SUCCINATE 50 MG (TOPROL XL) TAB PO SCH (10:06)
[2018-06-15] MEDS ORDERED: CEFD300C3 PO (10:06)
[2018-06-15] MEDS: LOSARTAN 100 MG (COZAAR) TABLET PO SCH (10:06)
[2018-06-15] MEDS ORDERED: LACT1CAP87 PO (10:06)
[2018-06-15] MEDS: APIXABAN 2.5 MG (ELIQUIS) TABLET PO SCH (10:06)
[2018-06-15] MEDS: DRONEDARONE TABLET 400 MG TABLET PO SCH (10:06)
[2018-06-15] MEDS: ASPIRIN 81 MG CHEW (CHILDREN'S ASA) PO SCH (10:07)
--- NOTE | 2018-06-15 10:10 | Discharge Inst-Complex ---
PDI Med Rec & Follow Up Appt. New Medications: Cefdinir (Cefdinir) 300 Mg Capsule 300 MG PO BID, #8 CAP Lactobacillus Acidophilus (Acidophilus Lactobacilli) 1 Each Capsule 1 EACH PO TID, #30 CAP Metoprolol Succinate (Metoprolol Succinate) 50 Mg Tab.er.24h 50 MG PO DAILY, #30 TAB 3 Refills Continued Medications: Amlodipine Besylate (Amlodipine Besylate) 5 Mg Tablet 5 MG PO DAILY, TAB Apixaban (Eliquis) 2.5 Mg Tablet 2.5 MG PO BID, TAB Aspirin (Aspirin) 81 Mg Tab.chew 81 MG PO DAILY, TAB Atorvastatin Calcium (Atorvastatin Calcium) 40 Mg Tablet 40 MG PO HS, TAB Dronedarone HCl (Multaq) 400 Mg Tablet 400 MG PO BID, TAB Furosemide (Furosemide) 20 Mg Tablet 20 MG PO DAILY PRN for SWELLING, TAB Insulin Aspart (Novolog Flexpen) 300 Units/3 Ml Solution SC AC, EA 80-150 = 10 UNITS 151-200 = 15 UNITS 201-300 = 17 UNITS > 300 = 21 UNITS Insulin Glargine,Hum.rec.anlog (Toujeo Solostar) 300 Unit/1 Ml Insuln.pen 20 UNIT SQ HS, EA Losartan Potassium (Losartan Potassium) 100 Mg Tablet 100 MG PO DAILY, TAB Potassium Chloride (Potassium Chloride) 10 Meq Tablet.er 10 MEQ PO DAILY PRN for WHEN TAKING FUROSEMIDE, TAB Discontinued Medications: Metoprolol Succinate (Metoprolol Succinate) 25 Mg Tab.er.24h 25 MG PO DAILY, TAB Prescription: Transmitted to Pharmacy Activity, Diet and PDI Resume Normal Activity: Yes Discharge Diet: ADA Diet Drink 6-8 Glasses of Fluid/Day: Yes Return to The Hospital For: chest pain, shortness of breath, abdominal pain Symptoms to Reoprt to DrChelsea: Fever Over 101 Degrees F, Pain/Pressure in Chest, Shortness of Breath For Problems or Questions: Contact Your Physician, Go to Emergency Room Infection Signs and Symptoms: Temperature Above 101 F JONN YAO MD Jun 15, 2018 10:10
[2018-06-15] MEDS: cefTRIAXone FOR IV USE 1,000 MG in NS (IVPB) 50 ML IV SCH (10:11)
--- NOTE | 2018-06-15 10:12 | Discharge Inst-Skilled Nursing ---
Discharge Inst-Skilled NF Patient Instructions Patient Problems: diabetes mellitus hypertension weakness confusion hard of hearing Consult/Follow Up/Orders Skilled NF Admit to: [facility] Certification (SNF) I certify that SNF services are required to be given on an inpatient basis because of the above named patient's need for long-term care on a continuing basis for the conditions(s) for which he/she was receiving inpatient hospital services prior to his/her transfer to the SNF. [facility] Order: Nursing Services, Plant Tender-Evaluate & Treat, Physical Therapy-Evaluate & Treat Discharge Diet: ADA Diet New & Resume Previous Orders Jonn Sow Jun 15, 2018 10:11 JONN SOW MD Jun 15, 2018 10:12
[2018-06-15 12:00] VITALS: BP 184/73
== END 2018-06-15 15:15 | DRG 638 ==
LOC: EDUNIT# 21:43 → ER 21:44 → ICU 06-11 00:30 → 4TH 06-13 16:25 → EDPENDDISTM 06-15 10:00
PROVIDERS: ADMIT Internal Medicine; ATTEND Family Medicine
DX: E11.01 Type 2 diabetes mellitus with hyperosmolarity with coma (principal); N39.0 Urinary tract infection, site not specified; B96.20 Unspecified Escherichia coli [E. coli] as the cause of diseases classified elsewhere; I10 Essential (primary) hypertension; I25.2 Old myocardial infarction; I48.0 Paroxysmal atrial fibrillation; E78.5 Hyperlipidemia, unspecified; E11.51 Type 2 diabetes mellitus with diabetic peripheral angiopathy without gangrene; G40.909 Epilepsy, unspecified, not intractable, without status epilepticus; M19.91 Primary osteoarthritis, unspecified site; R29.713 NIHSS score 13; H91.93 Unspecified hearing loss, bilateral; Z79.4 Long term (current) use of insulin; Z79.01 Long term (current) use of anticoagulants; Z95.5 Presence of coronary angioplasty implant and graft; Z86.73 Personal history of transient ischemic attack (TIA), and cerebral infarction without residual deficits; Z97.4 Presence of external hearing-aid
CPT/HCPCS: 36415; 70450; 70496; 70498; 71045; 72125; 80048; 80053; 80061; 81000; 82962; 83036; 83605; 83735; 84100; 84484; 85025; 85027; 85379; 85610; 85730; 87040; 87077; 87081; 87088; 87186; 90686; 93005; 93041; 96361; 96365; 96375

== ENCOUNTER → 2018-07-30 | Emergency (ER) | payer MEDICARE, OTHER ==
[~2018-07-30] VITALS: Ht 152.4 cm; Wt 49.9 kg
[~2018-07-30] MED LIST changes: +AMLO5TAB7 PO; +CEFD300C3 PO; +INSU100I14 SC; +LACT1CAP87 PO; +NS IV 1000 ML 1,000 ML IV ONE; +amLODIPine 5 MG (NORVASC) TAB PO ONE; +cefTRIAXone FOR IV USE 1,000 MG in NS (IVPB) 50 ML IV ONE; +inSUlin (REGULAR) HUMAN 1 UNIT/0.01 ML (CHARGE PER UNIT) SC ONE
--- OUTSIDE RECORDS SUMMARY | 2018-07-30 23:18 | XMS REPORT | CCD ---
Author Author [facility] Organization [facility] Address [address] [place] [address] Phone Care Team Providers Care Realtime Reporter Name Role Phone PP Unavailable CCM Unavailable Summary Purpose Interface Exchange Insurance Providers Payer name Policy type / Coverage type Covered libertarian ID Effective Begin Date Effective End Date WPS Medicare Part B Medicare Part B [id number] Unknown Unknown [employer] Medicare Part B [id number] Unknown Unknown Family history Mother Diagnosis Age [...] Unknown 2 05/04/[address]: [id number] Never smoker 05/04/2015 Alcohol history Unknown occasionally drinks alcohol 05/04/2015 Allergies, Adverse Reactions, Alerts Substance Reaction Codes Entered Date Inactivated Date Status * NO KNOWN DRUG ALLERGIES Unknown 07/08/2015 No Inactive Date Active Past Medical History Illness Codes Condition Status Onset Date Resolved Date Type 2 diabetes mellitus with hyperglycemia ICD-9: 250.02 ICD-10: E11.65 Active 12/21/2017 Unknown Unsteadiness on feet ICD-9: 781.2 ICD-10: R26.81 Active 06/15/2017 Unknown Weakness ICD-9: 780.79 ICD-10: R53.1 Active 08/30/2017 Unknown Essential (primary) hypertension ICD-9: 401.1 ICD-10: I10 Active 09/20/2016 Unknown Localized edema ICD-9 : 782.3 ICD-10: R60.0 Active 06/21/2018 Unknown Muscle weakness (generalized) ICD-9: 728.87 ICD-10: M62.81 Active 12/21/2017 Unknown Intervertebral disc disorders with radiculopathy, 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.10 ICD-10: M51.16 Active 05/02/2018 Unknown Low back pain ICD-9: 724.2 ICD-10: M54.5 Active 04/12/2018 Unknown Diplopia ICD-9: 368.2 ICD-10: H53.2 Active 04/20/2018 Unknown Rash and other nonspecific skin eruption ICD-9: 782.1 ICD-10: R21 Active 04/20/2018 Unknown Lumbago with sciatica, left side ICD-9: 724.3 ICD-10: M54.42 Active 04/03/2018 Unknown Sciatica Unknown Active 04/03/2018 Unknown Encounter for general adult medical examination with abnormal findings ICD-9: V70.0 ICD-10: Z00.01 Active 02/22/2018 Unknown Mixed hyperlipidemia ICD-9: 272.2 ICD-10: E78.2 Active 05/11/2017 Unknown Type 2 diabetes mellitus without complications ICD-9: 250.00 ICD-10: E11.9 Active 05/03/2015 Unknown Essential (primary) hypertension ICD-9: 401.9 ICD-10: I10 Active 08/31/2016 Unknown Dyspnea, unspecified ICD-9: 786.09 ICD-10: R06.00 Active 07/20/2015 Unknown Encounter for follow-up examination after completed treatment for conditions other than malignant neoplasm ICD-9: V67.59 ICD-10: Z09 Active 08/30/2017 Unknown Impacted cerumen, right ear ICD-9: 380.4 [...] Problems Condition Codes Effective Dates Condition Status Type 2 diabetes mellitus with hyperglycemia ICD-9: 250.02 ICD-10: E11.65 12/21/2017 Active Unsteadiness on feet ICD-9: 781.2 ICD-10: R26.81 06/15/2017 Active Weakness ICD-9: 780.79 ICD-10: R53.1 08/30/2017 Active Essential (primary) hypertension ICD-9: 401.1 ICD-10: I10 09/20/2016 Active Localized edema ICD-9 : 782.3 ICD-10: R60.0 06/21/2018 Active Muscle weakness (generalized) ICD-9: 728.87 ICD-10: M62.81 12/21/2017 Active Intervertebral disc disorders with radiculopathy, 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.10 ICD-10: M51.16 05/02/2018 Active Low back pain ICD-9: 724.2 ICD-10: M54.5 04/12/2018 Active Diplopia ICD-9: 368.2 ICD-10: H53.2 04/20/2018 Active Rash and other nonspecific skin eruption ICD-9: 782.1 ICD-10: R21 04/20/2018 Active Lumbago with sciatica, left side ICD-9: 724.3 ICD-10: M54.42 04/03/2018 Active Sciatica Unknown 04/03/2018 Active Encounter for general adult medical examination with abnormal findings ICD-9: V70.0 ICD-10: Z00.01 02/22/2018 Active Mixed hyperlipidemia ICD-9: 272.2 ICD-10: E78.2 05/11/2017 Active Type 2 diabetes mellitus without complications ICD-9: 250.00 ICD-10: E11.9 05/03/2015 Active Essential (primary) hypertension ICD-9: 401.9 ICD-10: I10 08/31/2016 Active Dyspnea, unspecified ICD-9: 786.09 ICD-10: R06.00 07/20/2015 Active Encounter for follow-up examination after completed treatment for conditions other than malignant neoplasm ICD-9: V67.59 ICD-10: Z09 08/30/2017 Active Impacted cerumen, right ear ICD-9: 380.4 [...] Start Date Stop Date Status Fill Instructions Norvasc 10 mg tablet RxNorm: 636497 1 Tablet(s) PO daily 201701/25/2019 Active update RX Eliquis 2.5 mg tablet RxNorm: 1752187 Tablet(s) PO TAKE ONE TABLET BY MOUTH TWICE DAILY 06/21/2018 06/15/2019 Active cyclobenzaprine 5 mg tablet RxNorm: 112401 1/2 Tablet(s) PO BID as needed muscle spasms/back pain 05/02/2018 05/31/2018 Inactive Voltaren 1 % topical gel RxNorm: 266257 1 Application TOP QID 04/27/2018 No Stop Date Active tramadol 50 mg tablet RxNorm: 654285 1 Tablet(s) PO TID as needed for pain 04/27/2018 05/01/2018 Inactive acyclovir 400 mg tablet RxNorm: 201740 2 Tablet(s) PO QID 04/2006/20/2018 Inactive mupirocin 2 % topical ointment RxNorm: 832008 1 Application TOP BID 04/20/2018 04/29/2018 Inactive right cheek/nose gentamicin 0.3 % eye drops RxNorm: 402930 2 Drop(s) ophthalmic (eye) left eye Q8 04/16/2018 No Stop Date Active prednisone 20 mg tablet RxNorm: 347311 2 Tablet(s) PO daily 04/12/2018 Inactive prednisone 20 mg tablet RxNorm: 637978 2 Tablet(s) PO daily 04/17/2018 Inactive Kenalog 40 mg/mL suspension for injection RxNorm: 2927251 1 Milliliter(s) Inj 04/12/2018 04/12/2018 Inactive losartan 100 mg tablet RxNorm: 807016 1 Tablet(s) PO QAM 201712/28/2018 Active update RX -dose should be 100mg Norvasc 5 mg tablet RxNorm: 468260 1 Tablet(s) PO daily 201707/29/2018 Inactive update RX losartan 50 mg tablet RxNorm: 642463 TAKE ONE TABLET BY MOUTH ONCE DAILY IN THE MORNING 03/26/2018 04/02/2018 Inactive Toujeo SoloStar U-300 Insulin 300 unit/mL (1.5 mL) subcutaneous pen RxNorm: 7430855 20 Unit(s) SQ QHS MANAGED BY DR. JOHNSON 201707/10/2018 Inactive Humalog U-100 Insulin 100 unit/mL subcutaneous solution RxNorm: 182451 15 Unit(s) SQ AC MANAGED BY DR. JOHNSON 03/13/2018 No Stop Date Active 201- 200 17 units, greater than 300 21 units losartan 100 mg tablet RxNorm: 705412 1 Tablet(s) PO QAM 201704/02/2018 Inactive pantoprazole 40 mg tablet,delayed release RxNorm: 207845 1 Tablet(s) PO daily 01/11/2018 07/19/2018 Inactive carvedilol 12.5 mg tablet RxNorm: 086462 1 Tablet(s) PO BID 07/19/2018 Inactive Toujeo SoloStar U-300 Insulin 300 unit/mL (1.5 mL) subcutaneous pen RxNorm: 5348840 15 Unit(s) SQ QHS MANAGED BY DR. JOHNSON 201703/12/2018 Inactive Multaq 400 mg tablet RxNorm: 615468 1 Tablet(s) PO BID 201712/14/2018 Active potassium chloride ER 10 mEq tablet,extended release RxNorm: 237365 1 Tablet(s) PO daily while on the Lasix 10/18/201701/2018 Inactive losartan 50 mg tablet RxNorm: 993179 1 Tablet(s) PO QAM 201601/17/2018 Inactive Lasix 20 mg tablet RxNorm: 827732 1 Tablet(s) PO daily 201610/03/2017 Inactive potassium chloride ER 10 mEq tablet,extended release RxNorm: 537600 1 Tablet(s) PO daily while on the Lasix 08/30/2017 Inactive Toujeo SoloStar 300 unit/mL (1.5 mL) subcutaneous insulin pen RxNorm: 7408139 35 Unit(s) SQ QHS MANAGED BY DR. JOHNSON 06/15/2017 10/12/2017 Inactive Eliquis 5 mg tablet RxNorm: 4897936 TAKE ONE TABLET BY MOUTH TWICE DAILY 03/01/2017 02/23/2018 Inactive Januvia 100 mg tablet RxNorm: 603491 1/2 Tablet(s) PO daily 07/19/2018 Inactive losartan 50 mg tablet RxNorm: 029592 1 Tablet(s) PO BID 201509/13/2017 Inactive amlodipine 10 mg tablet RxNorm: 350025 1 Tablet(s) PO daily 06/14/2017 Inactive generic for NORVASC losartan 50 mg tablet RxNorm: 256719 1 Tablet(s) PO daily 201508/31/2016 Inactive Toujeo SoloStar 300 unit/mL (1.5 mL) subcutaneous insulin pen RxNorm: 7700919 40 Unit(s) SQ QHS MANAGED BY DR. JOHNSON 07/01/2016 06/14/2017 Inactive Toujeo SoloStar 300 unit/mL (1.5 mL) subcutaneous insulin pen RxNorm: 4052763 35 Unit(s) SQ QHS MANAGED BY DR. JOHNSON 06/02/2016 06/30/2016 Inactive Humalog 100 unit/mL subcutaneous solution RxNorm: 433332 15 Unit(s) SQ AC MANAGED BY DR. JOHNSON 06/02/2016 03/12/2018 Inactive carvedilol 3.125 mg tablet RxNorm: 904137 1 Tablet(s) PO BID 04/23/2016 Inactive simvastatin 40 mg tablet RxNorm: 424977 1 Tablet(s) PO QHS 07/19/2018 Inactive Humalog 100 unit/mL subcutaneous solution RxNorm: 709319 13 Unit(s) SQ AC MANAGED BY DR. JOHNSON 01/26/2016 06/01/2016 Inactive Eliquis 5 mg tablet RxNorm: 3636529 1 Tablet(s) PO BID 201501/13/2017 Inactive carvedilol 6.25 mg tablet RxNorm: 493667 1 Tablet(s) PO BID 2016 Inactive Humalog 100 unit/mL subcutaneous solution RxNorm: 357815 Unit(s) SQ UD as directed by office 08/07/2015 01/25/2016 Inactive Klor-Con 10 mEq tablet,extended release RxNorm: 385347 1 Tablet(s) PO daily as needed 06/26/2015 10/23/2015 Inactive Lasix 20 mg tablet RxNorm: 539563 1 Tablet(s) PO daily as needed 06/26/2015 10/23/2015 Inactive fluticasone 50 mcg/actuation nasal spray,suspension RxNorm: 220802 2 [place] NASAL daily No Start Date Active metoprolol succinate ER 50 mg tablet,extended release 24 hr RxNorm: 349475 1 Tablet(s) PO daily No Start Date Active aspirin 81 mg capsule,delayed release RxNorm: 734749 1 Capsule(s) PO daily No Start Date Active Novolog U-100 Insulin aspart 100 unit/mL subcutaneous solution RxNorm: 977212 SSI 80-150 10u 151-200 15u 201-300 17u over 300 21u Unit(s) SQ AC & HS as needed No Start Date Active cetirizine 10 mg tablet RxNorm: 6336083 1 Tablet(s) PO daily No Start Date Active atorvastatin 40 mg tablet RxNorm: 638172 1 Tablet(s) PO daily No Start Date Active Culturelle [employer]otics 10 billion cell-200 mg capsule RxNorm: 1 Capsule(s) PO TID No Start Date Active losartan 25 mg tablet RxNorm: 684584 1 Tablet(s) PO daily No Start Date 08/31/2016 Inactive losartan 100 mg tablet RxNorm: 903428 1 Tablet(s) PO daily No Start Date 06/30/2016 Inactive gentamicin 0.3 % eye drops RxNorm: 212232 2 Drop(s) ophthalmic (eye) left eye Q8 No Start Date 04/15/2018 Inactive Multaq 400 mg tablet RxNorm: 128475 1 Tablet(s) PO BID No Start Date 12/19/2017 Inactive Klor-Con 10 mEq tablet,extended release RxNorm: 431049 1 Tablet(s) PO daily as needed No Start Date 06/25/2015 Inactive simvastatin 40 mg tablet RxNorm: 805504 1 Tablet(s) PO daily No Start Date 02/04/2016 Inactive carvedilol 6.25 mg tablet RxNorm: 158072 1 Tablet(s) PO BID No Start Date 11/30/2015 Inactive Eliquis 5 mg tablet RxNorm: 7601285 1 Tablet(s) PO BID No Start Date 01/19/2016 Inactive Toujeo SoloStar 300 unit/mL (1.5 mL) subcutaneous insulin pen RxNorm: 1387575 33 Unit(s) SQ QHS MANAGED BY DR. JOHNSON No Start Date 06/01/2016 Inactive Lasix 20 mg tablet RxNorm: 168323 1 Tablet(s) PO daily as needed No Start Date 06/25/2015 Inactive Humalog 100 unit/mL subcutaneous solution RxNorm: 730385 10 Unit(s) SQ TID No Start Date 08/06/2015 Inactive amlodipine 5 mg tablet RxNorm: 853933 1 Tablet(s) PO daily No Start Date 08/31/2016 Inactive Norvasc 2.5 mg tablet RxNorm: 782332 1 Tablet(s) PO daily No Start Date 04/02/2018 Inactive Medication Administered Medication Codes Instructions Start Date Status Kenalog 40 mg/mL suspension for injection RxNorm: 1208976 1Milliliter 04/12/2018 No longer Active Immunizations Vaccine Codes Date Status Influenza CVX: 141 06/02/2016 completed Influenza CVX: 141 07/17/2015 completed Influenza CVX: 141 06/18/2014 completed Pneumococcal CVX: 33 06/18/2014 completed Assessments Condition Codes Effective Dates Type 2 diabetes mellitus with hyperglycemia ICD-10: E11.65 ICD-9: 250.02 07/17/2018 Weakness ICD-10: R53.1 ICD-9: 780.79 06/26/2018 Unsteadiness on feet ICD-10: R26.81 ICD-9: 781.2 06/26/2018 Localized edema ICD-10: R60.0 ICD-9: 782.3 06/21/2018 Muscle weakness (generalized) ICD-10: M62.81 ICD-9: 728.87 06/21/2018 Essential (primary) hypertension ICD-10: I10 ICD-9: 401.1 06/21/2018 Intervertebral disc disorders with radiculopathy, lumbar region ICD-10: M51.16 ICD-9: 722.10 05/02/2018 Low back pain ICD-10: M54.5 ICD-9: 724.2 04/27/2018 Rash and other nonspecific skin eruption ICD-10: R21 ICD-9: 782.1 04/20/2018 Diplopia ICD-10: H53.2 ICD-9: 368.2 04/20/2018 Lumbago with sciatica, left side ICD-10: M54.42 ICD-9: 724.3 04/12/2018 Encounter for general adult medical examination with abnormal findings ICD-10: Z00.01 ICD-9: V70.0 02/22/2018 Mixed hyperlipidemia ICD-10: E78.2 ICD-9: 272.2 10/10/2017 Type 2 diabetes mellitus without complications ICD-10: E11.9 ICD-9: 250.00 10/10/2017 Essential (primary) hypertension ICD-10: I10 ICD-9: 401.9 09/07/2017 Dyspnea, unspecified ICD-10: R06.00 ICD-9: 786.09 08/30/2017 Encounter for follow-up examination after completed treatment for conditions other than malignant neoplasm ICD-10: Z09 ICD-9: V67.59 08/30/2017 Impacted cerumen, right ear ICD-10: H61.21 ICD-9: 380.4 06/08/2016 Encounter for immunization ICD-10: Z23 ICD-9: V04.81 06/02/2016 Other specified cardiac arrhythmias ICD-10: I49.8 ICD-9: 427.89 03/25/2016 Edema, unspecified ICD-10: R60.9 ICD-9: 782.3 07/08/2015 DIABETES TYPE II ICD-9: 250.00 2014 ESSENTIAL HYPERTENSION ICD-9: 401.9 05/04 Reason For Visit Reason For Visit Effective Dates Notes diabetes mellitus 07/17/2018 diabetes mellitus 06/26/2018 diabetes mellitus 06/21/2018 vision change 05/02/2018 leg pain/sciatica 04/27/2018 vision [...] 92.2 fl 05/25/2017 Cbc With Differential Ord2 Jerome% 8.9 % 05/25/2017 Cbc With Differential Ord2 [...] 3.78 K/ul 05/25/2017 Cbc With Differential Ord2 Jerome ABS# 0.7 K/ul 05/25/2017 Cbc With Differential Ord2 Eos ABS# 0.8 K/ul 05/25/2017 Cbc With Differential Ord2 Baso ABS# 0.3 K/ul 05/25/2017 Manual Differential Ord52 D-Neutr 50 % 05/25/2017 Manual Differential Ord52 D-Lymph 38 % 05/25/2017 Manual Differential Ord52 D-Eos 10 % 05/25/2017 Manual Differential Ord52 D-1 2 NRBC 05/25/2017 Comp Metabolic Kui687 NA 140 mEq/L 05/25/2017 Comp Metabolic Jdh399 K 4.0 mEq/L 05/25/2017 Comp Metabolic Jrt935 CL 107 mEq/L 05/25/2017 Comp Metabolic Tai038 CO2 22.0 mEq/L 05/25/2017 Comp Metabolic Pzn073 ANION GAP 15 05/25/2017 Comp Metabolic Gfc416 GLUCOSE 97 mg/dL 05/25/2017 Comp Metabolic Bwe461 Creat 0.9 mg/dL 05/25/2017 Comp Metabolic Oxv425 eGFR 61 ml/min/1.73m2 05/25/2017 Comp Metabolic Igv438 BUN 16 mg/dL 05/25/2017 Comp Metabolic Wll989 B/C Ratio 17.4 Ratio 05/25/2017 Comp Metabolic Pol633 CALCIUM 9.1 mg/dL 05/25/2017 Comp Metabolic Nco611 ALK PHOS 109 U/L 05/25/2017 Comp Metabolic Ufc704 AST(SGOT) 19 U/L 05/25/2017 Comp Metabolic Pmz108 ALT(SGPT) 17 U/L 05/25/2017 Comp Metabolic Akt333 BILI T 0.4 mg/dL 05/25/2017 Comp Metabolic Gpr725 ALBUMIN 3.3 g/dL 05/25/2017 Comp Metabolic Nrm637 TPRO 6.0 g/dL 05/25/2017 Comp Metabolic Fld067 GLOB 2.7 g/dL 05/25/2017 Comp Metabolic Mik226 A/G Ratio 1.2 Ratio 05/25/2017 Comp Metabolic Gdb151 Osmo 281 mOsmo 05/25/2017 Lipid Ord30 CHOL 204 mg/dL 05/25/2017 Lipid Ord30 HDL 49.0 mg/dl 05/25/2017 Lipid Ord30 TRIG 117 mg/dL 05/25/2017 Lipid Ord30 LDL 132 mg/dL 05/25/2017 Lipid Ord30 C/HDL 4.2 Ratio 05/25/2017 %Hba1C Yvr078 % HbA1c 96198-0 10.5 % 05/25/2017 %Hba1C Via248 Gluc Ave 255 mg/dL 05/25/2017 Microalbumin Lcr121 MicroAlb 95.0 mg/dL 05/25/2017 Review of Systems System Result Effective Dates Constitutional No recent illness 2017 Constitutional No chills 07/17/2018 Constitutional No diaphoresis 07/17/2018 Constitutional No fever 07/17/2018 Eyes No eye erythema 07/17/2018 Ears/Nose/Throat/Neck No nasal discharge 07/17/2018 Cardiovascular No chest pain/pressure Cardiovascular No dyspnea 07/17/2018 Respiratory No chest congestion 2017 Respiratory No cough 07/17/2018 Gastrointestinal No abdominal pain 2017 Gastrointestinal No constipation 2017 Gastrointestinal No diarrhea 07/17/2018 Dermatologic No rash 07/17/2018 Neurologic No alteration of consciousness 07/17/2018 Neurologic No mental status change 2017 Constitutional No recent illness 2017 Constitutional No fever 06/26/2018 Constitutional No chills 06/26/2018 Constitutional No diaphoresis 06/26/2018 Eyes No eye erythema 06/26/2018 Ears/Nose/Throat/Neck No nasal discharge 06/26/2018 Cardiovascular No chest pain/pressure 05/2018 Cardiovascular No dyspnea 06/26/2018 Respiratory No cough 06/26/2018 Respiratory No chest congestion 2017 Gastrointestinal No abdominal pain 2017 Gastrointestinal No constipation 2017 Gastrointestinal No diarrhea 06/26/2018 Dermatologic No rash 06/26/2018 Neurologic No alteration of consciousness 06/26/2018 Neurologic No mental status change 2017 Constitutional recent illness 06/21/2018 Constitutional No chills 06/21/2018 Constitutional No diaphoresis 06/21/2018 Constitutional No fever 06/21/2018 Eyes No blindness 06/21/2018 Ears/Nose/Throat/Neck No nasal discharge 06/21/2018 Cardiovascular No chest pain/pressure 12/2017 Cardiovascular No dyspnea 06/21/2018 Respiratory No chest congestion 2017 Respiratory No cough 06/21/2018 Gastrointestinal No abdominal pain 2017 Gastrointestinal No constipation 2017 Gastrointestinal No diarrhea 06/21/2018 Dermatologic No rash 06/21/2018 Neurologic No alteration of consciousness 06/21/2018 Neurologic No mental status change 2017 Constitutional fatigue 06/21/2018 Musculoskeletal stiffness 06/21/2018 Endocrine diabetes mellitus type 2 2017 Endocrine weakness 06/21/2018 Cardiovascular edema 06/21/2018 Cardiovascular exercise intolerance 06/21 Cardiovascular fatigue 06/21/2018 Constitutional No recent illness 2017 Constitutional No [...] 1994 Constitutional general appearance Overall: well developed 07/17/2018 None Full Exam - General 1994 Constitutional general appearance Overall: in no acute distress 07/17/2018 None Full Exam - General 1994 Constitutional general appearance Overall: well nourished 07/17/2018 None Full Exam - General 1994 Eyes conjunctiva /eyelids Overall: conjunctiva clear 07/17/2018 None Full Exam - General 1994 Eyes conjunctiva /eyelids Overall: cornea clear 07/17/2018 None Full Exam - General 1994 Eyes conjunctiva /eyelids Overall: eyelids normal 07/17/2018 None Full Exam - General 1995 Ears/Nose/Throat lips/teeth/gingiva Overall: benign lips 07/17/2018 None Full Exam - General 1994 Ears/Nose/Throat oral cavity/pharynx/larynx Overall: oral mucosa clear 07/17/2018 None Full Exam - General 1994 Respiratory auscultation Overall: breath sounds clear bilaterally 07/17/2018 None Full Exam - General 1994 Respiratory respiratory effort/rhythm Overall: no retractions 07/17/2018 None Full Exam - General 1994 Respiratory respiratory effort/rhythm Overall: normal rate 07/17/2018 None Full Exam - General 1994 Cardiovascular auscultation of heart Overall: regular rate 07/17/2018 None Full Exam - General 1994 Cardiovascular auscultation of heart Overall: normal heart sounds 07/17/2018 None Full Exam - General 1994 Musculoskeletal head and neck Overall: head atraumatic 07/17/2018 None Full Exam - General 1994 Neurologic cranial nerves Overall: crainial nerves 2 - 12 grossly intact 07/17/2018 None Full Exam - General 1994 Psychiatric orientation/consciousness Overall: oriented to person, place and time 07/17/2018 None Full Exam - General 1994 Psychiatric mood and affect Overall: normal mood and affect 07/17/2018 None Full Exam - General 1994 Constitutional general appearance Overall: well developed 06/26/2018 None Full Exam - General 1994 Constitutional general appearance Overall: in no acute distress 06/26/2018 None Full Exam - General 1994 Constitutional general appearance Overall: well nourished 06/26/2018 None Full Exam - General 1994 Eyes conjunctiva /eyelids Overall: conjunctiva clear 06/26/2018 None Full Exam - General 1994 Eyes conjunctiva /eyelids Overall: cornea clear 06/26/2018 None Full Exam - General 1994 Eyes conjunctiva /eyelids Overall: eyelids normal 06/26/2018 None Full Exam - General 1994 Ears/Nose/Throat lips/teeth/gingiva Overall: benign lips 06/26/2018 None Full Exam - General 1994 Ears/Nose/Throat oral cavity/pharynx/larynx Overall: oral mucosa clear 06/26/2018 None Full Exam - General 1994 Respiratory respiratory effort/rhythm Overall: normal rate 06/26/2018 None Full Exam - General 1994 Respiratory respiratory effort/rhythm Overall: no retractions 06/26/2018 None Full Exam - General 1994 Respiratory auscultation Overall: breath sounds clear bilaterally 06/26/2018 None Full Exam - General 1994 Cardiovascular auscultation of heart Overall: regular rate 06/26/2018 None Full Exam - General 1994 Cardiovascular auscultation of heart Overall: normal heart sounds 06/26/2018 None Full Exam - General 1994 Musculoskeletal head and neck Overall: head atraumatic 06/26/2018 None Full Exam - General 1994 Neurologic cranial nerves Overall: crainial nerves 2 - 12 grossly intact 06/26/2018 None Full Exam - General 1994 Psychiatric orientation/consciousness Overall: oriented to person, place and time 06/26/2018 None Full Exam - General 1994 Psychiatric mood and affect Overall: normal mood and affect 06/26/2018 None Full Exam - General 1994 Constitutional general appearance Overall: well developed 06/21/2018 None Full Exam - General 1994 Constitutional general appearance Overall: in no acute distress 06/21/2018 None Full Exam - General 1994 Constitutional general appearance Overall: well nourished 06/21/2018 None Full Exam - General 1994 Eyes conjunctiva /eyelids Overall: conjunctiva clear 06/21/2018 None Full Exam - General 1994 Eyes conjunctiva /eyelids Overall: cornea clear 06/21/2018 None Full Exam - General 1994 Eyes conjunctiva /eyelids Overall: eyelids normal 06/21/2018 None Full Exam - General 1994 Ears/Nose/Throat lips/teeth/gingiva Overall: benign lips 06/21/2018 None Full Exam - General 1994 Ears/Nose/Throat oral cavity/pharynx/larynx Overall: oral mucosa clear 06/21/2018 None Full Exam - General 1994 Respiratory auscultation Overall: breath sounds clear bilaterally 06/21/2018 None Full Exam - General 1994 Respiratory respiratory effort/rhythm Overall: no retractions 06/21/2018 None Full Exam - General 1994 Respiratory respiratory effort/rhythm Overall: normal rate 06/21/2018 None Full Exam - General 1994 Cardiovascular auscultation of heart Overall: regular rate 06/21/2018 None Full Exam - General 1994 Cardiovascular auscultation of heart Overall: normal heart sounds 06/21/2018 None Full Exam - General 1994 Musculoskeletal head and neck Overall: head atraumatic 06/21/2018 None Full Exam - General 1994 Neurologic cranial nerves Overall: crainial nerves 2 - 12 grossly intact 06/21/2018 None Full Exam - General 1994 Psychiatric orientation/consciousness Overall: oriented to person, place and time 06/21/2018 None Full Exam - General 1994 Psychiatric mood and affect Overall: normal mood and affect 06/21/2018 None Full Exam - General 1994 Abdomen abdominal exam Overall: no tenderness 06/21/2018 None Full Exam - General 1994 Abdomen abdominal exam Overall: normal bowel sounds 06/21/2018 None Full Exam - General 1994 Cardiovascular extremities Edema present: pitting 06/21/2018 2+ Full Exam - General 1994 Cardiovascular extremities Edema present: to knees 06/21/2018 None Full Exam - General 1994 Constitutional [...] dentition 06/15/2017 None Full Exam - General 1995 [...] Procedures Procedure Codes Date DRAIN/INJECT JOINT/BURSA CPT-4: 62202 04/12/2018 TRIAMCINOLONE ACET INJ NOS CPT-4: J3301 04/12/2018 PPPS, SUBSEQ VISIT CPT -4: G0439 02/22/2018 ADMIN INFLUENZA VIRUS VAC CPT-4: G0008 06/02/2016 FLU VACC PRSV FREE INC ANTIG CPT-4: 50267 06/02/2016 Vital Signs Date Vital 07/17/2018 Blood Pressure 1: 148/62 Code : 8480-6 BMI: 24.9 Code : 96388-6 Heart Rate 1 : 65 bpm Height: 4'8" SpO2: 97% Weight: 111 lbs 06/26/2018 Blood Pressure 1: 118/72 Code : 8480-6 BMI: 25.1 Code : 73823-2 Heart Rate 1 : 58 bpm Height: 4'8" SpO2: 97% Weight: 112 lbs 06/21/2018 Blood Pressure 1: 120/72 Code : 8480-6 BMI: 25.1 Code : 93329-4 Heart Rate 1 : 56 bpm Height: 4'8" SpO2: 96% Weight: 112 lbs 05/02/2018 Blood Pressure 1: 178/76 Code : 8480-6 BMI: 24.7 Code : 89715-8 Heart Rate 1 : 72 bpm Height: 4'8" SpO2: 98% Weight: 110 lbs 04/27/2018 Blood Pressure 1: 164/78 Code : 8480-6 BMI: 24.7 Code : 02568-3 Heart Rate 1 : 69 bpm Height: 4'8" SpO2: 97% Weight: 110 lbs 04/20/2018 Blood Pressure 1: 140/80 Code : 8480-6 BMI: 24.7 Code : 20445-3 Heart Rate 1 : 83 bpm Height: 4'8" SpO2: 97% Weight: 110 lbs 04/12/2018 Blood Pressure 1: 146/78 Code : 8480-6 Heart Rate 1: 68 bpm Height: SpO2: 98% Weight: 04/10/2018 Blood Pressure 1: 146/60 Code : 8480-6 BMI: 24.7 Code : 47374-7 Heart Rate 1 : 60 bpm Height: 4'8" SpO2: 95% Weight: 110 lbs 04/03/2018 Blood Pressure 1: 204/80 Code : 8480-6 BMI: 24.9 Code : 97178-9 Heart Rate 1 : 62 bpm Height: 4'8" SpO2: 98% Weight: 111 lbs 03/13/2018 Blood Pressure 1: 140/68 Code : 8480-6 BMI: 25.6 Code : 35699-0 Heart Rate 1 : 68 bpm Height: 4'8" SpO2: 95% Weight: 114 lbs 02/22/2018 Blood Pressure 1: 166/88 Code : 8480-6 BMI: 24.7 Code : 92115-4 Heart Rate 1 : 72 bpm Height: 4'8" SpO2: 95% Weight: 110 lbs 02/01/2018 Blood Pressure 1: 162/70 Code : 8480-6 BMI: 23.2 Code : 90923-7 Heart Rate 1 : 64 bpm Height: 4'11" SpO2: 95% Weight: 115 lbs 01/18/2018 Blood Pressure 1: 192/86 Code : 8480-6 BMI: 22.6 Code : 75179-9 Heart Rate 1 : 68 bpm Height: 4'11" SpO2: 94% Weight: 112 lbs 12/21/2017 Blood Pressure 1: 110/52 Code : 8480-6 BMI: 23.0 Code : 89906-6 Heart Rate 1 : 58 bpm Height: 4'11" SpO2: 94% Weight: 114 lbs 10/10/2017 Blood Pressure 1: 168/78 Code : 8480-6 BMI: 23.0 Code : 34143-1 Heart Rate 1 : 54 bpm Height: 4'11" SpO2: 98% Weight: 114 lbs 09/07/2017 Blood Pressure 1: 142/72 Code : 8480-6 Heart Rate 1: 84 bpm Height: 4'11" SpO2: 97% Weight: 08/30/2017 Blood Pressure 1: 188/82 Code : 8480-6 BMI: 24.4 Code : 78690-4 Heart Rate 1 : 79 bpm Height: 4'11" SpO2: 88% Temperature: 38.5 (C) / 101.3 (F) Weight: 121 lbs 08/15/2017 Blood Pressure 1: 166/78 Code : 8480-6 BMI: 22.8 Code : 62786-7 Heart Rate 1 : 71 bpm Height: 4'11" SpO2: 96% Weight: 113 lbs 06/15/2017 Blood Pressure 1: 138/68 Code : 8480-6 BMI: 22.8 Code : 21380-8 Heart Rate 1 : 54 bpm Height: 4'11" SpO2: 98% Weight: 113 lbs 05/29/2017 Blood Pressure 1: 96/46 Code : 8480-6 Blood Pressure 2: 116/57 Code: 8480-6 Heart Rate 1: 54 bpm 05/11/2017 Blood Pressure 1: 144/60 Code : 8480-6 BMI: 23.8 Code : 62354-9 Heart Rate 1 : 68 bpm Height: 4'11" SpO2: 97% Weight: 118 lbs 01/05/2017 Blood Pressure 1: 134/72 Code : 8480-6 BMI: 24.8 Code : 10636-7 Heart Rate 1 : 64 bpm Height: 4'11" SpO2: 94% Weight: 123 lbs 09/20/2016 Blood Pressure 1: 148/66 Code : 8480-6 BMI: 25.4 Code : 71126-2 Heart Rate 1 : 68 bpm Height: 4'11" SpO2: 97% Weight: 126 lbs 09/01/2016 Blood Pressure 1: 162/80 Code : 8480-6 BMI: 26.1 Code : 38435-9 Heart Rate 1 : 75 bpm Height: 4'11" SpO2: 95% Weight: 129 lbs 06/02/2016 Blood Pressure 1: 144/82 Code : 8480-6 BMI: 25.4 Code : 79434-2 Heart Rate 1 : 68 bpm Height: 4'11" SpO2: 98% Weight: 126 lbs 03/25/2016 Blood Pressure 1: 140/58 Code : 8480-6 BMI: 25.9 Code : 22721-3 Heart Rate 1 : 58 bpm Height: 4'11" SpO2: 95% Weight: 128 lbs 01/26/2016 Blood Pressure 1: 138/68 Code : 8480-6 BMI: 26.3 Code : 78244-4 Heart Rate 1 : 66 bpm Height: 4'11" SpO2: 96% Weight: 130 lbs 10/29/2015 Blood Pressure 1: 180/78 Code : 8480-6 BMI: 25.7 Code : 70775-1 Heart Rate 1 : 74 bpm Height: 4'11" SpO2: 97% Weight: 127 lbs 07/21/2015 Blood Pressure 1: 136/70 Code : 8480-6 BMI: 25.9 Code : 82390-0 Heart Rate 1 : 63 bpm Height: 4'11" SpO2: 95% Weight: 128 lbs 07/08/2015 Blood Pressure 1: 140/70 Code : 8480-6 BMI: 26.5 Code : 63736-0 Heart Rate 1 : 59 bpm Height: 4'11" SpO2: 94% Weight: 131 lbs 5 oz 05/04/2015 Blood Pressure 1: 140/60 Code : 8480-6 BMI: 25.7 Code : 76208-0 Heart Rate 1 : 60 bpm Height: 4'11" SpO2: 94% Weight: 127 lbs Functional Status No Functional Status data History of Present Illness Symptom Name Status Result Effective Date Notes diabetes mellitus Quality IDDM 07/17/2018 None diabetes mellitus Pertinent Findings Denies dizziness 07/17/2018 None diabetes mellitus Pertinent Findings Denies numbness 07/17/2018 None edema Onset and Resolution sudden in onset 07/17/2018 None diabetes mellitus Quality IDDM 06/26/2018 None diabetes mellitus Pertinent Findings Denies dizziness 06/26/2018 None diabetes mellitus Pertinent Findings Denies numbness 06/26/2018 None diabetes mellitus Quality IDDM 06/21/2018 None diabetes mellitus Glucose monitoring before meals 06/21/2018 None diabetes mellitus Glucose monitoring bedtime 06/21/2018 None diabetes mellitus Pertinent Findings Denies numbness 06/21/2018 None diabetes mellitus Pertinent Findings Denies dizziness 06/21/2018 None edema Quality acute None edema Onset and Resolution ongoing 06/21/2018 slightly improved edema Onset of Symptom 2.5 weeks ago 06/21/2018 None edema Significant Past Medical History cardiac disease 06/21/2018 None edema Triggers diet change 06/21/2018 None vision change Location on the right [...] Codes Date EST. PATIENT, LEVEL III Diagnosis: Type 2 diabetes mellitus with hyperglycemia[ICD10: E11.65] Elizabeth Sow MD, [facility] CPT-4: 24355 07/17/2018 29131 EST. PATIENT, LEVEL III Diagnosis: Type 2 diabetes mellitus with hyperglycemia[ICD10: E11.65] Diagnosis: Weakness[ICD10: R53.1] Diagnosis: Unsteadiness on feet[ICD10: R26.81] Elizabeth Sow MD, [facility] CPT-4: 25861 06/26/2018 ([id number]) 75510 EST. PATIENT, LEVEL IV Diagnosis: Type 2 diabetes mellitus with hyperglycemia[ICD10: E11.65] Diagnosis: Essential (primary) hypertension[ICD10: I10] Diagnosis: Muscle weakness (generalized)[ICD10: M62.81] Diagnosis: Localized edema[ICD10: R60.0] Kate Sow MD, [facility] CPT- 4: 02664 06/21/2018 ([id number]) 48026 EST. 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 PATIENT, LEVEL III Diagnosis: Low back pain[ICD10: M54.5] Elizabeth Sow MD, [facility] CPT-4 : 84618 04/27/2018 ([id number]) 05315 EST. PATIENT, LEVEL IV Diagnosis: Diplopia[ICD10: H53.2] Diagnosis: Rash and other nonspecific skin eruption[ICD10: R21] Diagnosis: Type 2 diabetes mellitus with hyperglycemia[ICD10: E11.65] Laney Sow MD, [facility] CPT-4: 81149 04/20/2018 ([id number]) 55404 EST. PATIENT, LEVEL III Diagnosis: Low back pain[ICD10: M54.5] Elizabeth Sow MD, [facility] CPT-4 : 94656 04/12/2018 ([id number]) 97553 EST. PATIENT, LEVEL III Diagnosis: Essential (primary) hypertension[ICD10: I10] Diagnosis: Type 2 diabetes mellitus with hyperglycemia[ICD10: E11.65] Kate Sow MD [facility] CPT-4: 49888 04/10/2018 ([id number]) 78609 EST. PATIENT, LEVEL III Diagnosis: Lumbago with sciatica, left side[ICD10: M54.42] Diagnosis: Essential (primary) hypertension[ICD10: I10] Laney Sow MD, [facility] CPT-4: 49116 04/03/2018 ([id number]) 44905 EST. PATIENT, LEVEL IV Diagnosis: Type 2 diabetes mellitus with hyperglycemia[ICD10: E11.65] Diagnosis: Essential (primary) hypertension[ICD10: I10] Kate Sow MD [facility] CPT-4: 64414 03/13/2018 ([id number]) 90244 EST. PATIENT, LEVEL IV Diagnosis: Essential (primary) hypertension[ICD10: I10] Diagnosis: Type 2 diabetes mellitus with hyperglycemia[ICD10: E11.65] Kate Sow MD , [facility] CPT-4: 18127 02/01/2018 ([id number]) 05172 EST. PATIENT, LEVEL IV Diagnosis: Type 2 diabetes mellitus with hyperglycemia[ICD10: E11.65] Diagnosis: Essential (primary) hypertension[ICD10: I10] Kate Sow MD, [facility] CPT-4: 29976 01/18/2018 ([id number]) Miscellaneous no charge Diagnosis: Type 2 diabetes mellitus with hyperglycemia[ICD10: E11.65] Elizabeth Sow MD, [facility] CPT-4: 42132 12/22/2017 ([id number]) 85987 EST. PATIENT, LEVEL IV Diagnosis: Type 2 diabetes mellitus with hyperglycemia[ICD10: E11.65] Diagnosis: Essential (primary) hypertension[ICD10: I10] Diagnosis: Muscle weakness (generalized)[ICD10: M62.81] Kate Sow MD, [facility] CPT-4: 13922 12/21/2017 02812 EST. PATIENT, LEVEL IV Diagnosis: Type 2 diabetes mellitus without complications[ICD10: E11.9] Diagnosis: Mixed hyperlipidemia[ICD10: E78.2] Diagnosis: Essential (primary) hypertension[ICD10: I10] Elizabeth Sow MD, [facility] CPT-4: 21653 10/10/2017 03451 EST. PATIENT, LEVEL III Diagnosis: Weakness[ICD10: R53.1] Diagnosis: Essential (primary) hypertension[ICD10: I10] Elizabeth Sow MD, [facility] CPT-4: 54690 09/07/2017 13177 EST. PATIENT, LEVEL III Diagnosis: Encounter for follow-up examination after completed treatment for conditions other than malignant neoplasm[ICD10: Z09] Diagnosis: Weakness[ICD10: R53.1] Diagnosis: Essential (primary) hypertension[ICD10: I10] Diagnosis: Dyspnea, unspecified[ICD10: R06.00] Diagnosis: Unsteadiness on feet[ICD10: R26.81] Elizabeth Sow MD, [facility] CPT-4: 41340 08/30/2017 ([id number]) 89513 EST. PATIENT, LEVEL IV Diagnosis: Type 2 diabetes mellitus without complications[ICD10: E11.9] Diagnosis: Essential (primary) hypertension[ICD10: I10] Kate Sow MD, [facility] CPT-4: 23961 08/15/2017 ([id number]) 12414 EST. PATIENT, LEVEL IV Diagnosis: Type 2 diabetes mellitus without complications[ICD10: E11.9] Diagnosis: Essential (primary) hypertension[ICD10: I10] Diagnosis: Unsteadiness on feet[ICD10: R26.81] Kate Sow MD, [facility] CPT-4: 90884 06/15/2017 ([id number]) Miscellaneous no charge Diagnosis: Essential (primary) hypertension[ICD10: I10] Laney Sow MD, [facility] CPT-4: 39224 05/29/2017 ([id number]) 08259 EST. PATIENT, LEVEL IV Diagnosis: Type 2 diabetes mellitus without complications[ICD10: E11.9] Diagnosis: Essential (primary) hypertension[ICD10: I10] Diagnosis: Mixed hyperlipidemia[ICD10: E78.2] Kate Sow MD, [facility] CPT-4: 88535 05/11/2017 ([id number]) 40296 EST. PATIENT, LEVEL IV Diagnosis: Type 2 diabetes mellitus without complications[ICD10: E11.9] Diagnosis: Essential (primary) hypertension[ICD10: I10] Kate Sow MD, [facility] CPT-4: 94702 01/05/2017 ([id number]) 48702 EST. PATIENT, LEVEL III Diagnosis: Essential (primary) hypertension[ICD10: I10] [facility] CPT-4: 76110 09/20/2016 ([id number]) 22815 EST. PATIENT, LEVEL III Diagnosis: Essential (primary) hypertension[ICD10: I10] [facility] CPT-4: 97550 09/01/2016 ([id number]) Miscellaneous no charge Diagnosis: Impacted cerumen, right ear[ICD10: H61.21] Elizabeth Sow MD, [facility] CPT-4: 54880 06/08/2016 ([id number]) 12399 EST. PATIENT, LEVEL IV Diagnosis: Type 2 diabetes mellitus without complications[ICD10: E11.9] Diagnosis: Essential (primary) hypertension[ICD10: I10] Diagnosis: Encounter for immunization[ICD10: Z23] [facility] CPT-4: 74841 06/02/2016 30383 EST. PATIENT, LEVEL III Diagnosis: Essential (primary) hypertension[ICD10: I10] Diagnosis: Other specified cardiac arrhythmias[ICD10: I49.8] [facility] CPT-4: 68695 03/25/2016 ([id number]) 67314 EST. PATIENT, LEVEL IV Diagnosis: Type 2 diabetes mellitus without complications[ICD10: E11.9] Diagnosis: Essential (primary) hypertension[ICD10: I10] [facility] CPT-4: 70509 01/26/2016 ([id number]) 32647 EST. PATIENT, LEVEL IV Diagnosis: Essential (primary) hypertension[ICD10: I10] Diagnosis: Type 2 diabetes mellitus without complications[ICD10: E11.9] [facility] CPT-4: 47362 10/29/2015 ([id number]) 53887 EST. PATIENT, LEVEL IV Diagnosis: Essential (primary) hypertension[ICD10: I10] Diagnosis: Dyspnea, unspecified[ICD10: R06.00] [facility] CPT-4: 79871 07/21/2015 ([id number]) 23130 EST. PATIENT, LEVEL III Diagnosis: Edema, unspecified[ICD10: R60.9] Kate Sow MD, [facility] CPT-4: 29781 07/08/2015 ([id number]) OFFICE VISIT, NEW - LEVEL 4 Diagnosis: ESSENTIAL HYPERTENSION[ICD9: 401.9] Diagnosis: DIABETES TYPE II[ICD9: 250.00] Kate Sow MD, [facility] CPT- 4: 20775 05/04/2015 Plan of Care Planned Activity Notes Codes Status Date Visit Plan: Diabetes Mellitus - Uncontrolled - [...] to allow for greater blood glucose control. 07/17/2018 Appointment: Elizabeth Milner WPtel: [address] [place], [place] [address] (15 min) Moderate 07/17/2018 Patient Education: Patient Medication Summary Completed 07/17/2018 Patient Education: Diabetes Completed 07/17/2018 Visit Plan: Diabetes Mellitus - Uncontrolled - [...] to allow for greater blood glucose control. Addendum: Pt will need home health to assist with medication management , monitoring of chronic medical conditions (diabetes and weakness), and diabetes education. Pt will need PT/OT to eval and treat for weakness and gait instability. 06/26/2018 Visit Plan: Diabetes Mellitus - Uncontrolled - [...] to allow for greater blood glucose control. 06/26/2018 App[facility]ment: [phone] [facility] ([facility] min) Moderate 06/26/2018 Patient Education: Patient Medication Summary Completed 06/26/2018 Patient Education: Diabetes Completed 06/26/2018 Visit Plan: Diabetes improved control while at the longterm - discussed with patient and her daughte r- agree with the changes made by Dr. Johnson - monitor blood glucose, and control diet closely. Edema - not optimally controlled, but vastly improved from hospital. Continue with compression and elevation and lasix at current dose. Hypertension - well controlled - continue with current medications, continue with no added salt diet. Pt has been encouraged to exercise daily. The pt has been advised to call the office if there are any acute concerns about change in blood pressure readings at home. Generalized weakness - discussed with pt and her DTR - will continue with physical therapy x 1 more week then re-eval patient and likely discharge her to home with home health. My preference and that of her children would be for the patient and her to go to assisted living, however her is vehemently opposed to Assisted Living. 06/21/2018 Appointment: [facility] [phone] [facility] [place] (15 min) Moderate 06/21/2018 Patient Education: Patient Medication Summary Completed 06/21/2018 Patient Education: Diabetes Completed 06/21/2018 Appointment: [facility] [phone] [facility] [place] (15 min) Moderate 05/09/2018 Visit Plan: Uncontrolled DM - pt has [...] back allowing her to sleep better. 05/02/2018 Appointment: Kate Sow WPtel: [phone] [facility] (15 min) Moderate 05/02/2018 Patient Education: Patient Medication Summary Completed 05/02/2018 Care Plan: X-RAY EXAM L-S SPINE 10/21 VWS LOINC : 48384-5 Pending 05/02/2018 Visit Plan: Low back pain- the patient was instructed in appropriate posture - The pt is to use prn antiinflammatories to manage acute pain. The patient is to call the office if the pain is worsening or does not improve. 04/27/2018 Appointment: Elizabeth Milner WPtel: [phone] [facility] (15 min) Moderate 04/27/2018 Patient Education: Patient Medication Summary Completed 04/27/2018 Visit Plan: Double vision-suspect due to elevated blood sugars -recommend patient bring in log of blood sugars to next appt -notify jd edwards of elevated readings and watch diet closely -also recommend f/u with eye doctor Rash-suspect shingles-rx for acyclovir provided and instructed on use 04/20/2018 Appointment: Laney Mcmillan WPtel: [phone] [phone] [place] (15 min) Moderate 04/20/2018 Patient Education: [...] they worsen. 04/12/2018 Appointment: Elizabeth Milner WPtel: [facility] (15 min) Moderate 04/12/2018 Patient Education: Patient [...] less controlled. 04/10/2018 Appointment: Kate Sow WPtel: [facility]8 [facility] (15 min) Moderate 04/10/2018 Patient Education: Patient [...] concerns. 04/03/2018 Appointment: Lane[facility] Mcmillan [facility]el[facility] [phone] [phone] [place] (15 min) Moderate 04/03/2018 Patient [...] home. 03/13/2018 Appointment: Kate Sow [facility]Ptel[facility] [phone] [facility] [place] (15 min) Moderate 03/13/2018 Patient [...] diet. 02/01/2018 Appointment: [facility]el[facility] [phone] [facility] (15 min) Moderate 02/01/2018 Patient Education: [...] 100mg daily. 01/18/2018 Appointment: Kate [facility]ow [facility]Ptel[facility] [phone] [facility] [place] (15 min) Moderate 01/18/2018 Patient Education: Patient Medication Summary Completed 01/18/2018 Appointment: Kate [facility]ow [facility]Ptel[facility] [phone] [facility] [place] (15 min) Moderate 01/11/2018 Appointment: Kate Sow WPtel: [phone] [facility] [place] (15 min) Moderate 12/25/2017 Visit [...] home. Generalized weakness - physical therapy at [facility] out 12/21/2017 Appointment: Kate Sow WPtel: [facility] (15 min) Moderate 12/21/2017 Patient Education: Patient Medication Summary Completed 12/21/2017 Appointment: Kate Sow [facility]Ptel[facility] [phone] [facility] (15 min) Moderate 12/13/2017 Visit Plan: [...] glucose control. 10/10/2017 Appointment: Elizabeth Milner [facility]el[phone] [facility] (15 min) Moderate 10/10/2017 Patient Education: [...] home. 09/07/2017 Appointment: Elizabeth Milner [facility]el[facility] [phone] [facility] [place] (30 min) Complex 09/07/2017 Patient Education: Patient Medication Summary Completed 09/07/2017 Appointment: Kate Sow [facility]Ptel[facility] [phone] [facility] [place] (15 min) Moderate 09/05/2017 Visit Plan: Hospital follow up - Dr. Sow in to see pt - pt was in the hospital with uncontrolled hypertension and a. fib - controlled at this time - persistent weakness requiring ongoing PT and assistance with some ADLs and medication management - will admit pt to shelter facility for ongoing rehabilitation. 08/30/2017 Appointment: Elizabeth Milner [facility]Ptel[facility] [phone] [facility] (30 min) Complex 08/30/2017 Patient Education: Patient Medication Summary Completed 08/30/2017 Appointment: Elizabeth Milner WPtel: [phone] [facility] (15 min) Moderate 08/29/2017 Visit Plan: Diabetes [...] at home. 08/15/2017 Appointment: Kate Sow [facility]Ptel[facility] [phone] [facility] (15 min) Moderate 08/15/2017 Patient Education: Patient Medication Summary Completed 08/15/2017 Care Plan: %Hba1C LOINC : 21451-9 Cancelled 08/15/2017 [phone] Patient's informed. Completed 06/26/2017 Visit Plan: Diabetes [...] glucose control. Gait Instability - referral to [facility] physical therapy for gait instability. Hypertension - well controlled - continue with current medications , continue with no added salt diet. Pt has been encouraged to exercise daily. The pt has been advised to call the office if there are any acute concerns about change in blood pressure readings at home. 06/15/2017 Appointment: Kate Sow WPtel: [facility] (15 min) Moderate 06/15/2017 Patient Education: Patient Medication Summary Completed 06/15/2017 Care Plan: Referral Order SNOMED-CT : [id number] Pending 06/15/2017 Appointment: Nurse Visit 05/29/2017 Patient [...] and come in here or go to [facility] or [facility] to get this set of labs done. [...] with Statin 05/11/2017 Appointment: Kate Sow WPtel[facility] [phone] [facility] (15 min) Moderate 05/11/2017 Patient Education: [...] pill daily. 01/05/2017 Appointment: Kate Sow [facility]Ptel[facility] [phone] [facility] (15 min) Moderate 01/05/2017 Patient Education: [...] home. 09/20/2016 Appointment: Kate Sow [facility]Ptel: [phone] [facility] (30 min) Complex 09/20/2016 Patient Education: [...] concerns. 09/01/2016 Appointment: Laney Mcmillan WPtel: [phone] [phone] (30 min) Complex 09/01/2016 Patient Education: Patient Medication Summary Completed 09/01/2016 Appointment: Kate Sow WPtel: [phone] [facility] (15 min) Moderate 08/31/2016 Appointment: Nurse [...] controlled. 06/02/2016 Appointment: Kate Sow WPtel: [phone] [facility] (15 min) Moderate 06/02/2016 Patient Education: Patient Medication Summary Completed 06/02/2016 Patient Education: Hypertension Completed 06/02/2016 Visit Plan: Bradycardia - reports pt has brought in indicates that the pt has been having a pulse in the 40s-50s. Will adjust medications, pt is to notify clinic if her symptoms do not improve, or with any concerns. 03/25/2016 Appointment: Laney Mcmillan WPtel: [phone] [phone] [place] (10 min) Simple 03/25/2016 Patient Education: [...] DM - managed by Dr. Johnson from [place] 01/26/2016 Patient Education: Patient Medication Summary Completed 01/26/2016 Patient Education: Hypertension Completed 01/26/2016 Appointment: Laney Mcmillan WPtel: [facility]5 [phone] [place] (30 min) Complex 12/31/2015 Visit Plan: Hypertension [...] less controlled. 10/29/2015 Appointment: Kate Sow WPtel: [facility] [place] (15 min) Moderate 10/29/2015 Patient Education: Patient Medication Summary Completed 10/29/2015 Patient Education: Hypertension Completed 10/29/2015 Appointment: Kate Sow WPtel: [facility]5 [facility] [place] (15 min) Moderate 09/14/2015 Visit Plan: Hypertension [...] today, as soon as you get to [place], monday morning, then start taking the lasix [...] handout Begin using muscle rub on back ([place] balm) 05/04/2015 Appointment: Kate Sow WPtel: [phone] [facility] [place] (S) New Patient 05/04/2015 Patient Education: Patient Medication Summary Completed 05/04/2015 Patient Education: Hypertension Completed 05/04/2015 Referral: [phone] [place] Referral Appointment Requested Instructions Comment see if Dr. Johnson has the tokadeo samples for you - if not , go to the pharmacy to black pickler the toujeo script. if the toujeo script [...] glucose control. Gait Instability - referral to [facility] physical therapy for gait instability. Hypertension [...] to allow for greater blood glucose control. Appt with Dr Richmond for eye exam start acyclovir four times daily mupirocin ointment to rash on face -don't use on eye/eyelids -continue the eye drops you already have . Double vision-suspect due to elevated blood sugars -recommend patient bring in log of blood sugars to next appt -notify jd edwards of elevated readings and watch diet closely [...] she is feeling on Monday. take lasix , [place], then start taking the lasix three [...] today, as soon as you get to [place], monday morning, then start taking the lasix [...] medication management - will admit pt to shelter facility for ongoing rehabilitation. . Bradycardia - [...] allow for greater blood glucose control. . Diabetes Mellitus - Uncontrolled - per [...] to allow for greater blood glucose control. Addendum: Pt will need home health to assist with medication management, monitoring of chronic medical conditions (diabetes and weakness), and diabetes education. Pt will need PT/OT to eval and treat for weakness and gait instability. . Diabetes Mellitus - Uncontrolled - per [...] DM - managed by Dr. Johnson from [place] . Low back pain- the patient was [...] and come in here or go to [facility] or [facility] to get this set [...] back allowing her to sleep better. . Diabetes improved control while at the longterm - discussed with patient and her hirale r- agree with the changes made by Dr. Johnson - monitor blood glucose, and control diet closely. Edema - not optimally controlled, but vastly improved from hospital. Continue with compression and elevation and lasix at current dose. Hypertension - well controlled - continue with current medications, continue with no added salt diet. Pt has been encouraged to exercise daily. The pt has been advised to call the office if there are any acute concerns about change in blood pressure readings at home. Generalized weakness - discussed with pt and her DTR - will continue with physical therapy x 1 more week then re-eval patient and likely discharge her to home with home health. My preference and that of her children would be for the patient and her to go to assisted living, however her is vehemently opposed to Assisted Living. hold flonase x 3 days - come [...] handout Begin using muscle rub on back ([place] balm) Begin taking Lasix again No blood [...] handout Begin using muscle rub on back ([place] balm)
--- OUTSIDE RECORDS SUMMARY | 2018-07-30 23:21 | XMS REPORT | CCD ---
Author Author [facility] Organization [facility] Address [address] [place] [address] Phone Care Team Providers Care Legal Aid Name Role Phone PP Unavailable CCM Unavailable Summary Purpose Interface Exchange Insurance Providers Payer name Policy type / Coverage type Covered green party ID Effective Begin Date Effective End Date WPS Medicare Part B Medicare Part B [id number] Unknown Unknown [employer] Medicare Part B [id number] Unknown Unknown Family history Mother Diagnosis Age [...] Unknown 3 05/04/[address]: 901206988 Never smoker 05/04/2015 Alcohol history Unknown occasionally [...] Start Date Stop Date Status Fill Instructions Eliquis 2.5 mg tablet RxNorm: 4456261 Tablet(s) PO TAKE ONE TABLET BY MOUTH TWICE DAILY 06/21/2018 06/15/2019 Active cyclobenzaprine 5 mg tablet RxNorm: 929678 1/2 Tablet(s) PO BID as needed muscle spasms/back pain 05/02/2018 05/31/2018 Inactive Voltaren 1 % topical gel RxNorm: 094582 1 Application TOP QID 04/27/2018 No Stop Date Active tramadol 50 mg tablet RxNorm: 006547 1 Tablet(s) PO TID as needed for pain 04/27/2018 05/01/2018 Inactive acyclovir 400 mg tablet RxNorm: 189272 2 Tablet(s) PO QID 04/2006/20/2018 Inactive mupirocin 2 % topical ointment RxNorm: 215573 1 Application TOP BID 04/20/2018 04/29/2018 Inactive right cheek/nose gentamicin 0.3 % eye drops RxNorm: 953956 2 Drop(s) ophthalmic (eye) left eye Q8 04/16/2018 No Stop Date Active prednisone 20 mg tablet RxNorm: 789642 2 Tablet(s) PO daily 04/12/2018 Inactive prednisone 20 mg tablet RxNorm: 756687 2 Tablet(s) PO daily 04/17/2018 Inactive Kenalog 40 mg/mL suspension for injection RxNorm: 7836020 1 Milliliter(s) Inj 04/12/2018 04/12/2018 Inactive losartan 100 mg tablet RxNorm: 947709 1 Tablet(s) PO QAM 201712/28/2018 Active update RX -dose should be 100mg Norvasc 5 mg tablet RxNorm: 882806 1 Tablet(s) PO daily 201709/29/2018 Active update RX losartan 50 mg tablet RxNorm: 026166 TAKE ONE TABLET BY MOUTH ONCE DAILY IN THE MORNING 03/26/2018 04/02/2018 Inactive Toujeo SoloStar U-300 Insulin 300 unit/mL (1.5 mL) subcutaneous pen RxNorm: 7214058 20 Unit(s) SQ QHS MANAGED BY DR. JOHNSON 201707/10/2018 Inactive Humalog U-100 Insulin 100 unit/mL subcutaneous solution RxNorm: 805454 15 Unit(s) SQ AC MANAGED BY DR. JOHNSON 03/13/2018 No Stop Date Active 201- 200 17 units, greater than 300 21 units losartan 100 mg tablet RxNorm: 448974 1 Tablet(s) PO QAM 201704/02/2018 Inactive pantoprazole 40 mg tablet,delayed release RxNorm: 349200 1 Tablet(s) PO daily 01/11/2018 08/08/2018 Active carvedilol 12.5 mg tablet RxNorm: 416686 1 Tablet(s) PO BID 03/06/2019 Active Toujeo SoloStar U-300 Insulin 300 unit/mL (1.5 mL) subcutaneous pen RxNorm: 8646152 15 Unit(s) SQ QHS MANAGED BY DR. JOHNSON 201703/12/2018 Inactive Multaq 400 mg tablet RxNorm: 398043 1 Tablet(s) PO BID 201712/14/2018 Active potassium chloride ER 10 mEq tablet,extended release RxNorm: 971920 1 Tablet(s) PO daily while on the Lasix 10/18/201701/2018 Inactive losartan 50 mg tablet RxNorm: 720967 1 Tablet(s) PO QAM 201601/17/2018 Inactive Lasix 20 mg tablet RxNorm: 437232 1 Tablet(s) PO daily 201610/03/2017 Inactive potassium chloride ER 10 mEq tablet,extended release RxNorm: 324370 1 Tablet(s) PO daily while on the Lasix 08/30/2017 Inactive Toujeo SoloStar 300 unit/mL (1.5 mL) subcutaneous insulin pen RxNorm: 5612944 35 Unit(s) SQ QHS MANAGED BY DR. JOHNSON 06/15/2017 10/12/2017 Inactive Eliquis 5 mg tablet RxNorm: 3170039 TAKE ONE TABLET BY MOUTH TWICE DAILY 03/01/2017 02/23/2018 Inactive Januvia 100 mg tablet RxNorm: 796381 1/2 Tablet(s) PO daily 04/04/2017 Inactive losartan 50 mg tablet RxNorm: 919977 1 Tablet(s) PO BID 201509/13/2017 Inactive amlodipine 10 mg tablet RxNorm: 280075 1 Tablet(s) PO daily 06/14/2017 Inactive generic for NORVASC losartan 50 mg tablet RxNorm: 200314 1 Tablet(s) PO daily 201508/31/2016 Inactive Toujeo SoloStar 300 unit/mL (1.5 mL) subcutaneous insulin pen RxNorm: 8114191 40 Unit(s) SQ QHS MANAGED BY DR. JOHNSON 07/01/2016 06/14/2017 Inactive Toujeo SoloStar 300 unit/mL (1.5 mL) subcutaneous insulin pen RxNorm: 6977634 35 Unit(s) SQ QHS MANAGED BY DR. JOHNSON 06/02/2016 06/30/2016 Inactive Humalog 100 unit/mL subcutaneous solution RxNorm: 694851 15 Unit(s) SQ AC MANAGED BY DR. JOHNSON 06/02/2016 03/12/2018 Inactive carvedilol 3.125 mg tablet RxNorm: 231451 1 Tablet(s) PO BID 04/23/2016 Inactive simvastatin 40 mg tablet RxNorm: 653782 1 Tablet(s) PO QHS 01/29/2017 Inactive Humalog 100 unit/mL subcutaneous solution RxNorm: 551601 13 Unit(s) SQ AC MANAGED BY DR. JOHNSON 01/26/2016 06/01/2016 Inactive Eliquis 5 mg tablet RxNorm: 6594669 1 Tablet(s) PO BID 201501/13/2017 Inactive carvedilol 6.25 mg tablet RxNorm: 732522 1 Tablet(s) PO BID 2016 Inactive Humalog 100 unit/mL subcutaneous solution RxNorm: 424531 Unit(s) SQ UD as directed by office 08/07/2015 01/25/2016 Inactive Klor-Con 10 mEq tablet,extended release RxNorm: 620886 1 Tablet(s) PO daily as needed 06/26/2015 10/23/2015 Inactive Lasix 20 mg tablet RxNorm: 774169 1 Tablet(s) PO daily as needed 06/26/2015 10/23/2015 Inactive fluticasone 50 mcg/actuation nasal spray,suspension RxNorm: 738678 2 [place] NASAL daily No Start Date Active metoprolol succinate ER 50 mg tablet,extended release 24 hr RxNorm: 263572 1 Tablet(s) PO daily No Start Date Active aspirin 81 mg capsule,delayed release RxNorm: 784276 1 Capsule(s) PO daily No Start Date Active Novolog U-100 Insulin aspart 100 unit/mL subcutaneous solution RxNorm: 967786 SSI 80-150 10u 151-200 15u 201-300 17u over 300 21u Unit(s) SQ AC & HS as needed No Start Date Active cetirizine 10 mg tablet RxNorm: 0867576 1 Tablet(s) PO daily No Start Date Active atorvastatin 40 mg tablet RxNorm: 618313 1 Tablet(s) PO daily No Start Date Active Culturelle Probiotics 10 billion cell-200 mg capsule RxNorm: 1 Capsule(s) PO TID No Start Date Active losartan 25 mg tablet RxNorm: 321782 1 Tablet(s) PO daily No Start Date 08/31/2016 Inactive losartan 100 mg tablet RxNorm: 117327 1 Tablet(s) PO daily No Start Date 06/30/2016 Inactive gentamicin 0.3 % eye drops RxNorm: 806754 2 Drop(s) ophthalmic (eye) left eye Q8 No Start Date 04/15/2018 Inactive Multaq 400 mg tablet RxNorm: 858252 1 Tablet(s) PO BID No Start Date 12/19/2017 Inactive Klor-Con 10 mEq tablet,extended release RxNorm: 311369 1 Tablet(s) PO daily as needed No Start Date 06/25/2015 Inactive simvastatin 40 mg tablet RxNorm: 044394 1 Tablet(s) PO daily No Start Date 02/04/2016 Inactive carvedilol 6.25 mg tablet RxNorm: 352527 1 Tablet(s) PO BID No Start Date 11/30/2015 Inactive Eliquis 5 mg tablet RxNorm: 2805840 1 Tablet(s) PO BID No Start Date 01/19/2016 Inactive Toujeo SoloStar 300 unit/mL (1.5 mL) subcutaneous insulin pen RxNorm: 2595666 33 Unit(s) SQ QHS MANAGED BY DR. JOHNSON No Start Date 06/01/2016 Inactive Lasix 20 mg tablet RxNorm: 237029 1 Tablet(s) PO daily as needed No Start Date 06/25/2015 Inactive Humalog 100 unit/mL subcutaneous solution RxNorm: 303012 10 Unit(s) SQ TID No Start Date 08/06/2015 Inactive amlodipine 5 mg tablet RxNorm: 503859 1 Tablet(s) PO daily No Start Date 08/31/2016 Inactive Norvasc 2.5 mg tablet RxNorm: 811080 1 Tablet(s) PO daily No Start Date 04/02/2018 Inactive Medication Administered Medication Codes Instructions Start Date Status Kenalog 40 mg/mL suspension for injection RxNorm: 9368456 1Milliliter 04/12/2018 No longer Active Immunizations Vaccine [...] 92.2 fl 05/25/2017 Cbc With Differential Ord2 [place]% 8.9 % 05/25/2017 Cbc With Differential Ord2 [...] 3.78 K/ul 05/25/2017 Cbc With Differential Ord2 [place] ABS# 0.7 K/ul 05/25/2017 Cbc With Differential Ord2 Eos ABS# 0.8 K/ul 05/25/2017 Cbc With Differential Ord2 Baso ABS# 0.3 K/ul 05/25/2017 Manual Differential Ord52 D-Neutr 50 % 05/25/2017 Manual Differential Ord52 D-Lymph 38 % 05/25/2017 Manual Differential Ord52 D-Eos 10 % 05/25/2017 Manual Differential Ord52 D-1 2 NRBC 05/25/2017 Comp Metabolic Nas504 NA 140 mEq/L 05/25/2017 Comp Metabolic Rre469 K 4.0 mEq/L 05/25/2017 Comp Metabolic Tlx870 CL 107 mEq/L 05/25/2017 Comp Metabolic Qzt720 CO2 22.0 mEq/L 05/25/2017 Comp Metabolic Ory397 ANION GAP 15 05/25/2017 Comp Metabolic Crn081 GLUCOSE 97 mg/dL 05/25/2017 Comp Metabolic Tmy347 Creat 0.9 mg/dL 05/25/2017 Comp Metabolic Amr347 eGFR 61 ml/min/1.73m2 05/25/2017 Comp Metabolic Ify570 BUN 16 mg/dL 05/25/2017 Comp Metabolic Ifh359 B/C Ratio 17.4 Ratio 05/25/2017 Comp Metabolic Jrw747 CALCIUM 9.1 mg/dL 05/25/2017 Comp Metabolic Rtq081 ALK PHOS 109 U/L 05/25/2017 Comp Metabolic Icz381 AST(SGOT) 19 U/L 05/25/2017 Comp Metabolic Tzj350 ALT(SGPT) 17 U/L 05/25/2017 Comp Metabolic Qid180 BILI T 0.4 mg/dL 05/25/2017 Comp Metabolic Njk609 ALBUMIN 3.3 g/dL 05/25/2017 Comp Metabolic Ura680 TPRO 6.0 g/dL 05/25/2017 Comp Metabolic Egv077 GLOB 2.7 g/dL 05/25/2017 Comp Metabolic Hlm482 A/G Ratio 1.2 Ratio 05/25/2017 Comp Metabolic Zvp703 Osmo 281 mOsmo 05/25/2017 Lipid Ord30 CHOL 204 mg/dL 05/25/2017 Lipid Ord30 HDL 49.0 mg/dl 05/25/2017 Lipid Ord30 TRIG 117 mg/dL 05/25/2017 Lipid Ord30 LDL 132 mg/dL 05/25/2017 Lipid Ord30 C/HDL 4.2 Ratio 05/25/2017 %Hba1C Tnd541 % HbA1c 08620-1 10.5 % 05/25/2017 %Hba1C Mgw863 Gluc Ave 255 mg/dL 05/25/2017 Microalbumin Dxn805 MicroAlb 95.0 mg/dL 05/25/2017 Review of Systems [...] normal 07/17/2018 None Full Exam - General 1994 Ears/Nose/Throat lips/teeth/gingiva Overall: benign lips 07/17/2018 None [...] Procedures Procedure Codes Date DRAIN/INJECT JOINT/BURSA CPT-4: 73431 04/12/2018 TRIAMCINOLONE ACET INJ NOS CPT-4: J3301 04/12/2018 PPPS, SUBSEQ VISIT CPT -4: G0439 02/22/2018 ADMIN INFLUENZA VIRUS VAC CPT-4: G0008 06/02/2016 FLU VACC PRSV FREE INC ANTIG CPT-4: 04290 06/02/2016 Vital Signs Date Vital 07/17/2018 Blood Pressure 1: 148/62 Code : 8480-6 BMI: 24.9 Code : 21703-1 Heart Rate 1 : 65 bpm Height: 4'8" SpO2: 97% Weight: 111 lbs 06/26/2018 Blood Pressure 1: 118/72 Code : 8480-6 BMI: 25.1 Code : 33311-1 Heart Rate 1 : 58 bpm Height: 4'8" SpO2: 97% Weight: 112 lbs 06/21/2018 Blood Pressure 1: 120/72 Code : 8480-6 BMI: 25.1 Code : 42016-4 Heart Rate 1 : 56 bpm Height: 4'8" SpO2: 96% Weight: 112 lbs 05/02/2018 Blood Pressure 1: 178/76 Code : 8480-6 BMI: 24.7 Code : 36288-3 Heart Rate 1 : 72 bpm Height: 4'8" SpO2: 98% Weight: 110 lbs 04/27/2018 Blood Pressure 1: 164/78 Code : 8480-6 BMI: 24.7 Code : 10467-6 Heart Rate 1 : 69 bpm Height: 4'8" SpO2: 97% Weight: 110 lbs 04/20/2018 Blood Pressure 1: 140/80 Code : 8480-6 BMI: 24.7 Code : 95081-5 Heart Rate 1 : 83 bpm Height: 4'8" SpO2: 97% Weight: 110 lbs 04/12/2018 Blood Pressure 1: 146/78 Code : 8480-6 Heart Rate 1: 68 bpm Height: SpO2: 98% Weight: 04/10/2018 Blood Pressure 1: 146/60 Code : 8480-6 BMI: 24.7 Code : 09939-3 Heart Rate 1 : 60 bpm Height: 4'8" SpO2: 95% Weight: 110 lbs 04/03/2018 Blood Pressure 1: 204/80 Code : 8480-6 BMI: 24.9 Code : 36439-5 Heart Rate 1 : 62 bpm Height: 4'8" SpO2: 98% Weight: 111 lbs 03/13/2018 Blood Pressure 1: 140/68 Code : 8480-6 BMI: 25.6 Code : 60780-6 Heart Rate 1 : 68 bpm Height: 4'8" SpO2: 95% Weight: 114 lbs 02/22/2018 Blood Pressure 1: 166/88 Code : 8480-6 BMI: 24.7 Code : 15515-9 Heart Rate 1 : 72 bpm Height: 4'8" SpO2: 95% Weight: 110 lbs 02/01/2018 Blood Pressure 1: 162/70 Code : 8480-6 BMI: 23.2 Code : 78169-6 Heart Rate 1 : 64 bpm Height: 4'11" SpO2: 95% Weight: 115 lbs 01/18/2018 Blood Pressure 1: 192/86 Code : 8480-6 BMI: 22.6 Code : 28721-0 Heart Rate 1 : 68 bpm Height: 4'11" SpO2: 94% Weight: 112 lbs 12/21/2017 Blood Pressure 1: 110/52 Code : 8480-6 BMI: 23.0 Code : 70063-7 Heart Rate 1 : 58 bpm Height: 4'11" SpO2: 94% Weight: 114 lbs 10/10/2017 Blood Pressure 1: 168/78 Code : 8480-6 BMI: 23.0 Code : 77289-2 Heart Rate 1 : 54 bpm Height: 4'11" SpO2: 98% Weight: 114 lbs 09/07/2017 Blood Pressure 1: 142/72 Code : 8480-6 Heart Rate 1: 84 bpm Height: 4'11" SpO2: 97% Weight: 08/30/2017 Blood Pressure 1: 188/82 Code : 8480-6 BMI: 24.4 Code : 72656-5 Heart Rate 1 : 79 bpm Height: 4'11" SpO2: 88% Temperature: 38.5 (C) / 101.3 (F) Weight: 121 lbs 08/15/2017 Blood Pressure 1: 166/78 Code : 8480-6 BMI: 22.8 Code : 16652-7 Heart Rate 1 : 71 bpm Height: 4'11" SpO2: 96% Weight: 113 lbs 06/15/2017 Blood Pressure 1: 138/68 Code : 8480-6 BMI: 22.8 Code : 21512-9 Heart Rate 1 : 54 bpm Height: 4'11" SpO2: 98% Weight: 113 lbs 05/29/2017 Blood Pressure 1: 96/46 Code : 8480-6 Blood Pressure 2: 116/57 Code: 8480-6 Heart Rate 1: 54 bpm 05/11/2017 Blood Pressure 1: 144/60 Code : 8480-6 BMI: 23.8 Code : 31234-4 Heart Rate 1 : 68 bpm Height: 4'11" SpO2: 97% Weight: 118 lbs 01/05/2017 Blood Pressure 1: 134/72 Code : 8480-6 BMI: 24.8 Code : 22029-7 Heart Rate 1 : 64 bpm Height: 4'11" SpO2: 94% Weight: 123 lbs 09/20/2016 Blood Pressure 1: 148/66 Code : 8480-6 BMI: 25.4 Code : 41349-7 Heart Rate 1 : 68 bpm Height: 4'11" SpO2: 97% Weight: 126 lbs 09/01/2016 Blood Pressure 1: 162/80 Code : 8480-6 BMI: 26.1 Code : 45427-8 Heart Rate 1 : 75 bpm Height: 4'11" SpO2: 95% Weight: 129 lbs 06/02/2016 Blood Pressure 1: 144/82 Code : 8480-6 BMI: 25.4 Code : 98450-2 Heart Rate 1 : 68 bpm Height: 4'11" SpO2: 98% Weight: 126 lbs 03/25/2016 Blood Pressure 1: 140/58 Code : 8480-6 BMI: 25.9 Code : 40956-0 Heart Rate 1 : 58 bpm Height: 4'11" SpO2: 95% Weight: 128 lbs 01/26/2016 Blood Pressure 1: 138/68 Code : 8480-6 BMI: 26.3 Code : 96847-5 Heart Rate 1 : 66 bpm Height: 4'11" SpO2: 96% Weight: 130 lbs 10/29/2015 Blood Pressure 1: 180/78 Code : 8480-6 BMI: 25.7 Code : 97065-7 Heart Rate 1 : 74 bpm Height: 4'11" SpO2: 97% Weight: 127 lbs 07/21/2015 Blood Pressure 1: 136/70 Code : 8480-6 BMI: 25.9 Code : 82608-4 Heart Rate 1 : 63 bpm Height: 4'11" SpO2: 95% Weight: 128 lbs 07/08/2015 Blood Pressure 1: 140/70 Code : 8480-6 BMI: 26.5 Code : 65714-9 Heart Rate 1 : 59 bpm Height: 4'11" SpO2: 94% Weight: 131 lbs 5 oz 05/04/2015 Blood Pressure 1: 140/60 Code : 8480-6 BMI: 25.7 Code : 02233-8 Heart Rate 1 : 60 bpm Height: [...] mellitus with hyperglycemia[ICD10: E11.65] Elizabeth Sow MD, [facility] CPT-4: 97767 07/17/2018 74714 EST. PATIENT, LEVEL III Diagnosis: Type 2 diabetes mellitus with hyperglycemia[ICD10: E11.65] Diagnosis: Weakness[ICD10: R53.1] Diagnosis: Unsteadiness on feet[ICD10: R26.81] Elizabeth Sow MD, [facility] CPT-4: 67519 06/26/2018 ([id number]) 34773 EST. PATIENT, LEVEL IV Diagnosis: Type 2 diabetes mellitus with hyperglycemia[ICD10: E11.65] Diagnosis: Essential (primary) hypertension[ICD10: I10] Diagnosis: Muscle weakness (generalized)[ICD10: M62.81] Diagnosis: Localized edema[ICD10: R60.0] Kate Sow MD, [facility] CPT- 4: 79684 06/21/2018 ([id number]) 54274 EST. 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 PATIENT, LEVEL III Diagnosis: Low back pain[ICD10: M54.5] Elizabeth Sow MD, [facility] CPT-4 : 97293 04/27/2018 ([id number]) 04037 EST. PATIENT, LEVEL IV Diagnosis: Diplopia[ICD10: H53.2] Diagnosis: Rash and other nonspecific skin eruption[ICD10: R21] Diagnosis: Type 2 diabetes mellitus with hyperglycemia[ICD10: E11.65] Laney Sow MD, [facility] CPT-4: 06691 04/20/2018 ([id number]) 76555 EST. PATIENT, LEVEL III Diagnosis: Low back pain[ICD10: M54.5] Elizabeth Sow MD, [facility] CPT-4 : 31519 04/12/2018 ([id number]) 02055 EST. PATIENT, LEVEL III Diagnosis: Essential (primary) hypertension[ICD10: I10] Diagnosis: Type 2 diabetes mellitus with hyperglycemia[ICD10: E11.65] Kate Sow MD [facility] CPT-4: 54190 04/10/2018 ([id number]) 34075 EST. PATIENT, LEVEL III Diagnosis: Lumbago with sciatica, left side[ICD10: M54.42] Diagnosis: Essential (primary) hypertension[ICD10: I10] Laney Sow MD [facility] CPT-4: 44121 04/03/2018 ([id number]) 86510 EST. PATIENT, LEVEL IV Diagnosis: Type 2 diabetes mellitus with hyperglycemia[ICD10: E11.65] Diagnosis: Essential (primary) hypertension[ICD10: I10] Kate Sow MD [facility] CPT-4: 27305 03/13/2018 ([id number]) 03071 EST. PATIENT, LEVEL IV Diagnosis: Essential (primary) hypertension[ICD10: I10] Diagnosis: Type 2 diabetes mellitus with hyperglycemia[ICD10: E11.65] Kate Sow MD [facility] CPT-4: 28989 02/01/2018 ([id number]) 49404 EST. PATIENT, LEVEL IV Diagnosis: Type 2 diabetes mellitus with hyperglycemia[ICD10: E11.65] Diagnosis: Essential (primary) hypertension[ICD10: I10] Kate Sow MD [facility] CPT-4: 31763 01/18/2018 ([id number]) Miscellaneous no charge Diagnosis: Type 2 diabetes mellitus with hyperglycemia[ICD10: E11.65] Elizabeth Sow MD [facility] CPT-4: 43032 12/22/2017 ([id number]) 91868 EST. PATIENT, LEVEL IV Diagnosis: Type 2 diabetes mellitus with hyperglycemia[ICD10: E11.65] Diagnosis: Essential (primary) hypertension[ICD10: I10] Diagnosis: Muscle weakness (generalized)[ICD10: M62.81] Kate Sow MD [facility] CPT-4: 24367 12/21/2017 59309 EST. PATIENT, LEVEL IV Diagnosis: Type 2 diabetes mellitus without complications[ICD10: E11.9] Diagnosis: Mixed hyperlipidemia[ICD10: E78.2] Diagnosis: Essential (primary) hypertension[ICD10: I10] Elizabeth Sow MD, [facility] CPT-4: 78725 10/10/2017 89984 EST. PATIENT, LEVEL III Diagnosis: Weakness[ICD10: R53.1] Diagnosis: Essential (primary) hypertension[ICD10: I10] Elizabeth Sow MD, [facility] CPT-4: 38504 09/07/2017 30097 EST. PATIENT, LEVEL III Diagnosis: Encounter for follow-up examination after completed treatment for conditions other than malignant neoplasm[ICD10: Z09] Diagnosis: Weakness[ICD10: R53.1] Diagnosis: Essential (primary) hypertension[ICD10: I10] Diagnosis: Dyspnea, unspecified[ICD10: R06.00] Diagnosis: Unsteadiness on feet[ICD10: R26.81] Elizabeth Sow MD, [facility] CPT-4: 87146 08/30/2017 ([id number]) 13548 EST. PATIENT, LEVEL IV Diagnosis: Type 2 diabetes mellitus without complications[ICD10: E11.9] Diagnosis: Essential (primary) hypertension[ICD10: I10] Kate Sow MD [facility] CPT-4: 43664 08/15/2017 ([id number]) 17851 EST. PATIENT, LEVEL IV Diagnosis: Type 2 diabetes mellitus without complications[ICD10: E11.9] Diagnosis: Essential (primary) hypertension[ICD10: I10] Diagnosis: Unsteadiness on feet[ICD10: R26.81] Kate Sow MD, [facility] CPT-4: 44758 06/15/2017 ([id number]) Miscellaneous no charge Diagnosis: Essential (primary) hypertension[ICD10: I10] Laney Sow MD, [facility] CPT-4: 63607 05/29/2017 ([id number]) 53270 EST. PATIENT, LEVEL IV Diagnosis: Type 2 diabetes mellitus without complications[ICD10: E11.9] Diagnosis: Essential (primary) hypertension[ICD10: I10] Diagnosis: Mixed hyperlipidemia[ICD10: E78.2] Kate Sow MD, [facility] CPT-4: 97380 05/11/2017 ([id number]) 32121 EST. PATIENT, LEVEL IV Diagnosis: Type 2 diabetes mellitus without complications[ICD10: E11.9] Diagnosis: Essential (primary) hypertension[ICD10: I10] Kate Sow MD [facility] CPT-4: 01725 01/05/2017 ([id number]) 74230 EST. PATIENT, LEVEL III Diagnosis: Essential (primary) hypertension[ICD10: I10] Kate Sow MD [facility] CPT-4: 37195 09/20/2016 ([id number]) 76944 EST. PATIENT, LEVEL III Diagnosis: Essential (primary) hypertension[ICD10: I10] Laney Sow MD, [facility] CPT-4: 07731 09/01/2016 ([id number]) Miscellaneous no charge Diagnosis: Impacted cerumen, right ear[ICD10: H61.21] Elizabeth Sow MD, [facility] CPT-4: 99791 06/08/2016 ([id number]) 90829 EST. PATIENT, LEVEL IV Diagnosis: Type 2 diabetes mellitus without complications[ICD10: E11.9] Diagnosis: Essential (primary) hypertension[ICD10: I10] Diagnosis: Encounter for immunization[ICD10: Z23] Kate Sow MD, [facility] CPT-4: 40795 06/02/2016 59706 EST. PATIENT, LEVEL III Diagnosis: Essential (primary) hypertension[ICD10: I10] Diagnosis: Other specified cardiac arrhythmias[ICD10: I49.8] Elizabeth Sow MD, [facility] CPT-4: 75390 03/25/2016 ([id number]) 16054 EST. PATIENT, LEVEL IV Diagnosis: Type 2 diabetes mellitus without complications[ICD10: E11.9] Diagnosis: Essential (primary) hypertension[ICD10: I10] Kate Sow MD, [facility] CPT-4: 11222 01/26/2016 ([id number]) 01864 EST. PATIENT, LEVEL IV Diagnosis: Essential (primary) hypertension[ICD10: I10] Diagnosis: Type 2 diabetes mellitus without complications[ICD10: E11.9] Kate Sow MD, [facility] CPT-4: 20718 10/29/2015 ([id number]) 48276 EST. PATIENT, LEVEL IV Diagnosis: Essential (primary) hypertension[ICD10: I10] Diagnosis: Dyspnea, unspecified[ICD10: R06.00] Kate Sow MD, [facility] CPT-4: 05653 07/21/2015 ([id number]) 03696 EST. PATIENT, LEVEL III Diagnosis: Edema, unspecified[ICD10: R60.9] MARIANN Wong MD CPT-4: 40606 07/08/2015 ([id number]) OFFICE VISIT, NEW - LEVEL 4 Diagnosis: ESSENTIAL HYPERTENSION[ICD9: 401.9] Diagnosis: DIABETES TYPE II[ICD9: 250.00] MARIANN Wong MD CPT- 4: 17893 05/04/2015 Plan of Care Planned Activity Notes [...] glucose control. 07/17/2018 Appointment: Elizabeth Milner WPtel: [address] [place], [place] [address] (15 min) Moderate 07/17/2018 Patient Education: Patient [...] allow for greater blood glucose control. 06/26/2018 Visit Plan: Diabetes Mellitus - Uncontrolled [...] treat for weakness and gait instability. 06/26/2018 [facility] [phone] [facility] ([facility] min) Moderate 06/26/2018 Patient Education: Patient Medication Summary Completed 06/26/2018 Patient Education: Diabetes Completed 06/26/2018 Visit Plan: Diabetes improved control while at the [facility] - discussed with patient and her marisaughte r- agree with the changes made by [...] Assisted Living. 06/21/2018 [facility] [phone] [facility] [place] (15 min) Moderate 06/21/2018 Patient Education: Patient Medication Summary Completed 06/21/2018 Patient Education: Diabetes Completed 06/21/2018 [facility]ment: [facility] [phone] [facility] [place] (15 min) Moderate 05/09/2018 Visit [...] better. 05/02/2018 Appointment: Kate Sow WPtel: [phone] [facility] (15 min) Moderate 05/02/2018 Patient Education: Patient Medication Summary Completed 05/02/2018 Care Plan: X-RAY EXAM L-S SPINE 10/21 S LOINC : 63720-2 Pending 05/02/2018 Visit Plan: Low back pain- the patient was instructed in appropriate posture - The pt is to use prn antiinflammatories to manage acute pain. The patient is to call the office if the pain is worsening or does not improve. 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 04/12/2018 App[facility]ment: [facility] [phone] [facility] (15 min) Moderate 04/12/2018 Patient Education: Patient [...] controlled. 04/10/2018 Appointment: Kate Sow WPtel: [phone] [facility] [place] (15 min) Moderate 04/10/2018 Patient Education: Patient [...] concerns. 04/03/2018 Appointment: Laney Mcmillan WPtel: [phone] [phone] [place] (15 min) Moderate 04/03/2018 Patient Education: [...] at home. 03/13/2018 Appointment: Kate Sow WPtel: [address] [place], [place] [address] (15 min) Moderate 03/13/2018 Patient Education: Patient [...] diabetic diet. 02/01/2018 Appointment: Kate Sow WPtel: [facility] (15 min) Moderate 02/01/2018 Patient Education: Patient [...] 100mg daily. 01/18/2018 Appointment: Kate Sow WPtel: [facility]5 [facility] (15 min) Moderate 01/18/2018 Patient Education: Patient Medication Summary Completed 01/18/2018 Appointment: Kate Sow WPtel: [facility] (15 min) Moderate 01/11/2018 Appointment: Kate Sow WPtel[facility] ([facility] min) Moderate 12/25/2017 Visit Plan: Diabetes [...] home. Generalized weakness - physical therapy at [facility] out[facility] 12/21/2017 Appointment: [facility]ow [facility]Ptel[phone] [facility] [place] (15 min) Moderate 12/21/2017 Patient Education: Patient Medication Summary Completed 12/21/2017 Appointment: [facility]el[phone] [facility] [place] (15 min) Moderate 12/13/2017 Visit Plan: [...] control. 10/10/2017 [facility]ment[phone] (15 min) Moderate 10/10/2017 Patient Education: Patient [...] at home. 09/07/2017 Appointment: Elizabeth Milner WPtel[facility] (30 min) Complex 09/07/2017 Patient Education: Patient Medication Summary Completed 09/07/2017 Appointment: [facility]el[phone] [facility] (15 min) Moderate 09/05/2017 Visit Plan: Hospital follow up - Dr. Sow in to see pt - pt was in the hospital with uncontrolled hypertension and a. fib - controlled at this time - persistent weakness requiring ongoing PT and assistance with some ADLs and medication management - will admit pt to halfway facility for ongoing rehabilitation. 08/30/2017 Appointment: Fartun Milnerie WPtel: [phone] [phone] (30 min) Complex 08/30/2017 Patient Education: Patient Medication Summary Completed 08/30/2017 Appointment: Fartun Milnerie WPtel: [phone] [facility]6[address] (15 min) Moderate 08/29/2017 Visit Plan: Diabetes [...] at home. 08/15/2017 Appointment: Kate Sow WPtel: [phone] [facility] (15 min) Moderate 08/15/2017 Patient Education: Patient Medication Summary Completed 08/15/2017 Care Plan: %Hba1C [facility] : [id number] Cancelled 08/15/2017 Ref[phone] [facility] Patient's informed. Completed 06/26/2017 Visit Plan: Diabetes [...] control. Gait Instability - referral to [facility] physical therapy for gait instability. Hypertension - well controlled - continue with current medications , continue with no added salt diet. Pt has been encouraged to exercise daily. The pt has been advised to call the office if there are any acute concerns about change in blood pressure readings at home. 06/15/2017 Appointment: [facility] Sow WPtel[facility] [phone] [facility] (15 min) Moderate 06/15/2017 Patient Education: Patient Medication Summary Completed 06/15/2017 Care Plan: Referral Order SNOMED-CT : [id number] Pending 06/15/2017 Appointment: Nurse Visit 05/29/2017 Patient [...] and come in here or go to [facility] or [facility] to get this set of labs done. [...] medications. Continue with Statin 05/11/2017 Appointment: Kate oSw WPtel: [phone] [facility] (15 min) Moderate 05/11/2017 Patient Education: [...] daily. 01/05/2017 Appointment: [facility]ow [facility]Ptel: [phone] [facility] (15 min) Moderate 01/05/2017 Patient Education: [...] home. 09/20/2016 Appointment: [facility]ow [facility]Ptel[facility] [phone] [facility] (30 min) Complex 09/20/2016 Patient Education: [...] concerns. 09/01/2016 Appointment: Laney Mcmillan WPtel: [phone] [phone] (30 min) Complex 09/01/2016 Patient Education: Patient Medication Summary Completed 09/01/2016 Appointment: Kate Sow WPtel: [phone] [facility] (15 min) Moderate 08/31/2016 Appointment: Nurse [...] controlled. 06/02/2016 Appointment: Kate Sow WPtel: [phone] [facility] [place] (15 min) Moderate 06/02/2016 Patient Education: Patient Medication Summary Completed 06/02/2016 Patient Education: Hypertension Completed 06/02/2016 Visit Plan: Bradycardia - reports pt has brought in indicates that the pt has been having a pulse in the 40s-50s. Will adjust medications, pt is to notify clinic if her symptoms do not improve, or with any concerns. 03/25/2016 Appointment: Laney Mcmillan WPtel: [phone] [phone] [place] (10 min) Simple 03/25/2016 Patient Education: [...] DM - managed by Dr. Johnson from [place] 01/26/2016 Patient Education: Patient Medication Summary Completed 01/26/2016 Patient Education: Hypertension Completed 01/26/2016 Appointment: Laney Mcmillan WPtel: [facility]8 [phone] (30 min) Complex 12/31/2015 Visit Plan: Hypertension [...] controlled. 10/29/2015 Appointment: Kate Sow WPtel: [phone] [facility] (15 min) Moderate 10/29/2015 Patient Education: Patient Medication Summary Completed 10/29/2015 Patient Education: Hypertension Completed 10/29/2015 Appointment: Kate Sow WPtel: [phone] [facility] (15 min) Moderate 09/14/2015 Visit Plan: Hypertension [...] today, as soon as you get to travelers rest, monday morning, then start taking the lasix [...] handout Begin using muscle rub on back (Clint balm) 05/04/2015 Appointment: Kate Sow WPtel: [phone] [facility] [place] (S) New Patient 05/04/2015 Patient Education: Patient Medication Summary Completed 05/04/2015 Patient Education: Hypertension Completed 05/04/2015 Referral: [facility] physical therapy WPtel: [phone] Referral Appointment Requested Instructions Comment . Diabetes Mellitus - Uncontrolled - per [...] are starting to become less controlled. . Low back pain- the patient was [...] DM - managed by Dr. Johnson from [place] . Diabetes Mellitus - Uncontrolled - per [...] and treat for weakness and gait instability. Increase losartan to 100mg daily come in [...] allow for greater blood glucose control. . Bradycardia - reports pt has brought in indicates that the pt has been having a pulse in the 40s-50s. Will adjust medications, pt is to notify clinic if her symptoms do not improve, or with any concerns. . Hospital follow up - Dr. Sow in to see pt - pt was in the hospital with uncontrolled hypertension and a. fib - controlled at this time - persistent weakness requiring ongoing PT and assistance with some ADLs and medication management - will admit pt to halfway facility for ongoing rehabilitation. take lasix today, as soon as you get to monday [...] monday, monday and with the lasix . Diabetes Mellitus - Uncontrolled - per [...] and how she is feeling on Monday. . Hypertension - well controlled - continue [...] of blood sugars to next appt -notify [employer] inspector of elevated readings and watch diet closely -also recommend f/u with eye doctor Rash-suspect shingles-rx for acyclovir provided and instructed on use . Weakness - improved - pt is [...] change in blood pressure readings at home. use the losartan 50mg - give her [...] then increase the losartan 100mg daily. . Hypertension - uncontrolled - the patient's [...] is to call for acute concerns. . Diabetes Mellitus - uncontrolled - per [...] started on januvia 100mg 1/2 pill daily. PT with Sade Amaya Increase amlodipine to [...] is to call for acute concerns. . Diabetes Mellitus - I have recommended [...] - physical therapy at [facility] . Hypertension - well controlled - continue [...] are starting to become less controlled. . Hypertension - not yet optimally controlled - however we will not change medications today. She has been advised to cut out extra salt in her diet. DM - will bring back glucose monitor for download next Monday. Continue with diabetic diet. see if Dr. Johnson has the toujeo samples for you - if not , go to the pharmacy to brick picker the toujeo script. if the toujeo [...] control. Gait Instability - referral to [facility] physical therapy for gait instability. Hypertension - well controlled - continue with current medications, continue with no added salt diet. Pt has been encouraged to exercise daily. The pt has been advised to call the office if there are any acute concerns about change in blood pressure readings at home. . Joint Injection - Pt was given [...] and come in here or go to [facility] or [facility] to get this set of labs done. [...] and come in here or go to [facility] or [facility] to get this set of labs done. [...] . Diabetes improved control while at the [facility] - discussed with patient and her daughte [...] handout Begin using muscle rub on back (Clint balm) Begin taking Lasix again No blood [...] handout Begin using muscle rub on back (Clint balm) Increase the toujeo to 20 units . [...]
--- OUTSIDE RECORDS SUMMARY | 2018-07-30 23:24 | XMS REPORT | CCD ---
Author Author [facility] Organization [facility] Address [address] [place] [address] Phone Care Team Providers Care Procedural Nurse Name Role Phone PP Unavailable CCM Unavailable Summary Purpose Interface Exchange Insurance Providers Payer name Policy type / Coverage type Covered democrat ID Effective Begin Date Effective End Date WPS Medicare Part B Medicare Part B [id number] Unknown Unknown [employer] Medicare Part B [id number] Unknown Unknown Family history Mother Diagnosis Age [...] Unknown 2 05/04/[address]: 939290637 Never smoker 05/04/2015 Alcohol history Unknown occasionally [...] Fill Instructions Eliquis 2.5 mg tablet RxNorm: 0698240 Tablet(s) PO TAKE ONE TABLET BY MOUTH TWICE DAILY 06/21/2018 06/15/2019 Active cyclobenzaprine 5 mg tablet RxNorm: 546915 1/2 Tablet(s) PO BID as needed muscle spasms/back pain 05/02/2018 05/31/2018 Inactive Voltaren 1 % topical gel RxNorm: 808131 1 Application TOP QID 04/27/2018 No Stop Date Active tramadol 50 mg tablet RxNorm: 314004 1 Tablet(s) PO TID as needed for pain 04/27/2018 05/01/2018 Inactive acyclovir 400 mg tablet RxNorm: 253888 2 Tablet(s) PO QID 04/2006/20/2018 Inactive mupirocin 2 % topical ointment RxNorm: 829164 1 Application TOP BID 04/20/2018 04/29/2018 Inactive right cheek/nose gentamicin 0.3 % eye drops RxNorm: 112146 2 Drop(s) ophthalmic (eye) left eye Q8 04/16/2018 No Stop Date Active prednisone 20 mg tablet RxNorm: 565596 2 Tablet(s) PO daily 04/12/2018 Inactive prednisone 20 mg tablet RxNorm: 647292 2 Tablet(s) PO daily 04/17/2018 Inactive Kenalog 40 mg/mL suspension for injection RxNorm: 7248530 1 Milliliter(s) Inj 04/12/2018 04/12/2018 Inactive losartan 100 mg tablet RxNorm: 601149 1 Tablet(s) PO QAM 201712/28/2018 Active update RX -dose should be 100mg Norvasc 5 mg tablet RxNorm: 900095 1 Tablet(s) PO daily 201709/29/2018 Active update RX losartan 50 mg tablet RxNorm: 802790 TAKE ONE TABLET BY MOUTH ONCE DAILY IN THE MORNING 03/26/2018 04/02/2018 Inactive Toujeo SoloStar U-300 Insulin 300 unit/mL (1.5 mL) subcutaneous pen RxNorm: 9919540 20 Unit(s) SQ QHS MANAGED BY DR. JOHNSON 201707/10/2018 Inactive Humalog U-100 Insulin 100 unit/mL subcutaneous solution RxNorm: 582607 15 Unit(s) SQ AC MANAGED BY DR. JOHNSON 03/13/2018 No Stop Date Active 201- 200 17 units, greater than 300 21 units losartan 100 mg tablet RxNorm: 352952 1 Tablet(s) PO QAM 201704/02/2018 Inactive pantoprazole 40 mg tablet,delayed release RxNorm: 624446 1 Tablet(s) PO daily 01/11/2018 08/08/2018 Active carvedilol 12.5 mg tablet RxNorm: 691584 1 Tablet(s) PO BID 03/06/2019 Active Toujeo SoloStar U-300 Insulin 300 unit/mL (1.5 mL) subcutaneous pen RxNorm: 9632482 15 Unit(s) SQ QHS MANAGED BY DR. JOHNSON 201703/12/2018 Inactive Multaq 400 mg tablet RxNorm: 331140 1 Tablet(s) PO BID 201712/14/2018 Active potassium chloride ER 10 mEq tablet,extended release RxNorm: 830589 1 Tablet(s) PO daily while on the Lasix 10/18/201701/2018 Inactive losartan 50 mg tablet RxNorm: 364531 1 Tablet(s) PO QAM 201601/17/2018 Inactive Lasix 20 mg tablet RxNorm: 253971 1 Tablet(s) PO daily 201610/03/2017 Inactive potassium chloride ER 10 mEq tablet,extended release RxNorm: 054061 1 Tablet(s) PO daily while on the Lasix 08/30/2017 Inactive Toujeo SoloStar 300 unit/mL (1.5 mL) subcutaneous insulin pen RxNorm: 3965612 35 Unit(s) SQ QHS MANAGED BY DR. JOHNSON 06/15/2017 10/12/2017 Inactive Eliquis 5 mg tablet RxNorm: 6641877 TAKE ONE TABLET BY MOUTH TWICE DAILY 03/01/2017 02/23/2018 Inactive Januvia 100 mg tablet RxNorm: 536569 1/2 Tablet(s) PO daily 04/04/2017 Inactive losartan 50 mg tablet RxNorm: 598367 1 Tablet(s) PO BID 201509/13/2017 Inactive amlodipine 10 mg tablet RxNorm: 004863 1 Tablet(s) PO daily 06/14/2017 Inactive generic for NORVASC losartan 50 mg tablet RxNorm: 242006 1 Tablet(s) PO daily 201508/31/2016 Inactive Toujeo SoloStar 300 unit/mL (1.5 mL) subcutaneous insulin pen RxNorm: 8820831 40 Unit(s) SQ QHS MANAGED BY DR. JOHNSON 07/01/2016 06/14/2017 Inactive Toujeo SoloStar 300 unit/mL (1.5 mL) subcutaneous insulin pen RxNorm: 0267986 35 Unit(s) SQ QHS MANAGED BY DR. JOHNSON 06/02/2016 06/30/2016 Inactive Humalog 100 unit/mL subcutaneous solution RxNorm: 652211 15 Unit(s) SQ AC MANAGED BY DR. JOHNSON 06/02/2016 03/12/2018 Inactive carvedilol 3.125 mg tablet RxNorm: 559048 1 Tablet(s) PO BID 04/23/2016 Inactive simvastatin 40 mg tablet RxNorm: 212807 1 Tablet(s) PO QHS 01/29/2017 Inactive Humalog 100 unit/mL subcutaneous solution RxNorm: 375935 13 Unit(s) SQ AC MANAGED BY DR. JOHNSON 01/26/2016 06/01/2016 Inactive Eliquis 5 mg tablet RxNorm: 3924245 1 Tablet(s) PO BID 201501/13/2017 Inactive carvedilol 6.25 mg tablet RxNorm: 707115 1 Tablet(s) PO BID 2016 Inactive Humalog 100 unit/mL subcutaneous solution RxNorm: 392384 Unit(s) SQ UD as directed by office 08/07/2015 01/25/2016 Inactive Klor-Con 10 mEq tablet,extended release RxNorm: 716969 1 Tablet(s) PO daily as needed 06/26/2015 10/23/2015 Inactive Lasix 20 mg tablet RxNorm: 626193 1 Tablet(s) PO daily as needed 06/26/2015 10/23/2015 Inactive fluticasone 50 mcg/actuation nasal spray,suspension RxNorm: 455632 2 [place] NASAL daily No Start Date Active metoprolol succinate ER 50 mg tablet,extended release 24 hr RxNorm: 449141 1 Tablet(s) PO daily No Start Date Active aspirin 81 mg capsule,delayed release RxNorm: 018398 1 Capsule(s) PO daily No Start Date Active Novolog U-100 Insulin aspart 100 unit/mL subcutaneous solution RxNorm: 612181 SSI 80-150 10u 151-200 15u 201-300 17u over 300 21u Unit(s) SQ AC & HS as needed No Start Date Active cetirizine 10 mg tablet RxNorm: 0199102 1 Tablet(s) PO daily No Start Date Active atorvastatin 40 mg tablet RxNorm: 265246 1 Tablet(s) PO daily No Start Date Active Culturelle Probiotics 10 billion cell-200 mg capsule RxNorm: 1 Capsule(s) PO TID No Start Date Active losartan 25 mg tablet RxNorm: 361307 1 Tablet(s) PO daily No Start Date 08/31/2016 Inactive losartan 100 mg tablet RxNorm: 039379 1 Tablet(s) PO daily No Start Date 06/30/2016 Inactive gentamicin 0.3 % eye drops RxNorm: 906196 2 Drop(s) ophthalmic (eye) left eye Q8 No Start Date 04/15/2018 Inactive Multaq 400 mg tablet RxNorm: 243118 1 Tablet(s) PO BID No Start Date 12/19/2017 Inactive Klor-Con 10 mEq tablet,extended release RxNorm: 419243 1 Tablet(s) PO daily as needed No Start Date 06/25/2015 Inactive simvastatin 40 mg tablet RxNorm: 182188 1 Tablet(s) PO daily No Start Date 02/04/2016 Inactive carvedilol 6.25 mg tablet RxNorm: 990791 1 Tablet(s) PO BID No Start Date 11/30/2015 Inactive Eliquis 5 mg tablet RxNorm: 4227978 1 Tablet(s) PO BID No Start Date 01/19/2016 Inactive Toujeo SoloStar 300 unit/mL (1.5 mL) subcutaneous insulin pen RxNorm: 6255853 33 Unit(s) SQ QHS MANAGED BY DR. JOHNSON No Start Date 06/01/2016 Inactive Lasix 20 mg tablet RxNorm: 245019 1 Tablet(s) PO daily as needed No Start Date 06/25/2015 Inactive Humalog 100 unit/mL subcutaneous solution RxNorm: 469547 10 Unit(s) SQ TID No Start Date 08/06/2015 Inactive amlodipine 5 mg tablet RxNorm: 052037 1 Tablet(s) PO daily No Start Date 08/31/2016 Inactive Norvasc 2.5 mg tablet RxNorm: 104674 1 Tablet(s) PO daily No Start Date 04/02/2018 Inactive Medication Administered Medication Codes Instructions Start Date Status Kenalog 40 mg/mL suspension for injection RxNorm: 7045580 1Milliliter 04/12/2018 No longer Active Immunizations Vaccine [...] 31.2 pg 05/25/2017 Cbc With Differential Ord2 [place]% 8.9 % 05/25/2017 Cbc With Differential Ord2 [...] 3.78 K/ul 05/25/2017 Cbc With Differential Ord2 [place] ABS# 0.7 K/ul 05/25/2017 Cbc With Differential Ord2 Eos ABS# 0.8 K/ul 05/25/2017 Cbc With Differential Ord2 Baso ABS# 0.3 K/ul 05/25/2017 Manual Differential Ord52 D-Neutr 50 % 05/25/2017 Manual Differential Ord52 D-Lymph 38 % 05/25/2017 Manual Differential Ord52 D-Eos 10 % 05/25/2017 Manual Differential Ord52 D-1 2 NRBC 05/25/2017 Comp Metabolic Jft281 NA 140 mEq/L 05/25/2017 Comp Metabolic Dcz347 K 4.0 mEq/L 05/25/2017 Comp Metabolic Lxt061 CL 107 mEq/L 05/25/2017 Comp Metabolic Fkv864 CO2 22.0 mEq/L 05/25/2017 Comp Metabolic Yzs138 ANION GAP 15 05/25/2017 Comp Metabolic Cxx956 GLUCOSE 97 mg/dL 05/25/2017 Comp Metabolic Nzc413 Creat 0.9 mg/dL 05/25/2017 Comp Metabolic Yuk055 eGFR 61 ml/min/1.73m2 05/25/2017 Comp Metabolic Yap813 BUN 16 mg/dL 05/25/2017 Comp Metabolic Zon513 B/C Ratio 17.4 Ratio 05/25/2017 Comp Metabolic Tkn580 CALCIUM 9.1 mg/dL 05/25/2017 Comp Metabolic Mop556 ALK PHOS 109 U/L 05/25/2017 Comp Metabolic Voq770 AST(SGOT) 19 U/L 05/25/2017 Comp Metabolic Dno696 ALT(SGPT) 17 U/L 05/25/2017 Comp Metabolic Ecg386 BILI T 0.4 mg/dL 05/25/2017 Comp Metabolic Rlr149 ALBUMIN 3.3 g/dL 05/25/2017 Comp Metabolic Uch071 TPRO 6.0 g/dL 05/25/2017 Comp Metabolic Xev054 GLOB 2.7 g/dL 05/25/2017 Comp Metabolic Fqb515 A/G Ratio 1.2 Ratio 05/25/2017 Comp Metabolic Djl576 Osmo 281 mOsmo 05/25/2017 Lipid Ord30 CHOL 204 mg/dL 05/25/2017 Lipid Ord30 HDL 49.0 mg/dl 05/25/2017 Lipid Ord30 TRIG 117 mg/dL 05/25/2017 Lipid Ord30 LDL 132 mg/dL 05/25/2017 Lipid Ord30 C/HDL 4.2 Ratio 05/25/2017 %Hba1C Wwd055 % HbA1c 61719-2 10.5 % 05/25/2017 %Hba1C Jhn498 Gluc Ave 255 mg/dL 05/25/2017 Microalbumin Rhi337 MicroAlb 95.0 mg/dL 05/25/2017 Review of Systems [...] Procedures Procedure Codes Date DRAIN/INJECT JOINT/BURSA CPT-4: 79372 04/12/2018 TRIAMCINOLONE ACET INJ NOS CPT-4: J3301 04/12/2018 PPPS, SUBSEQ VISIT CPT -4: G0439 02/22/2018 ADMIN INFLUENZA VIRUS VAC CPT-4: G0008 06/02/2016 FLU VACC PRSV FREE INC ANTIG CPT-4: 02784 06/02/2016 Vital Signs Date Vital 07/17/2018 Blood Pressure 1: 148/62 Code : 8480-6 BMI: 24.9 Code : 20785-0 Heart Rate 1 : 65 bpm Height: 4'8" SpO2: 97% Weight: 111 lbs 06/26/2018 Blood Pressure 1: 118/72 Code : 8480-6 BMI: 25.1 Code : 86729-1 Heart Rate 1 : 58 bpm Height: 4'8" SpO2: 97% Weight: 112 lbs 06/21/2018 Blood Pressure 1: 120/72 Code : 8480-6 BMI: 25.1 Code : 29833-3 Heart Rate 1 : 56 bpm Height: 4'8" SpO2: 96% Weight: 112 lbs 05/02/2018 Blood Pressure 1: 178/76 Code : 8480-6 BMI: 24.7 Code : 21670-3 Heart Rate 1 : 72 bpm Height: 4'8" SpO2: 98% Weight: 110 lbs 04/27/2018 Blood Pressure 1: 164/78 Code : 8480-6 BMI: 24.7 Code : 87730-7 Heart Rate 1 : 69 bpm Height: 4'8" SpO2: 97% Weight: 110 lbs 04/20/2018 Blood Pressure 1: 140/80 Code : 8480-6 BMI: 24.7 Code : 69949-0 Heart Rate 1 : 83 bpm Height: 4'8" SpO2: 97% Weight: 110 lbs 04/12/2018 Blood Pressure 1: 146/78 Code : 8480-6 Heart Rate 1: 68 bpm Height: SpO2: 98% Weight: 04/10/2018 Blood Pressure 1: 146/60 Code : 8480-6 BMI: 24.7 Code : 31623-1 Heart Rate 1 : 60 bpm Height: 4'8" SpO2: 95% Weight: 110 lbs 04/03/2018 Blood Pressure 1: 204/80 Code : 8480-6 BMI: 24.9 Code : 01928-5 Heart Rate 1 : 62 bpm Height: 4'8" SpO2: 98% Weight: 111 lbs 03/13/2018 Blood Pressure 1: 140/68 Code : 8480-6 BMI: 25.6 Code : 74817-9 Heart Rate 1 : 68 bpm Height: 4'8" SpO2: 95% Weight: 114 lbs 02/22/2018 Blood Pressure 1: 166/88 Code : 8480-6 BMI: 24.7 Code : 07341-9 Heart Rate 1 : 72 bpm Height: 4'8" SpO2: 95% Weight: 110 lbs 02/01/2018 Blood Pressure 1: 162/70 Code : 8480-6 BMI: 23.2 Code : 41346-0 Heart Rate 1 : 64 bpm Height: 4'11" SpO2: 95% Weight: 115 lbs 01/18/2018 Blood Pressure 1: 192/86 Code : 8480-6 BMI: 22.6 Code : 71944-9 Heart Rate 1 : 68 bpm Height: 4'11" SpO2: 94% Weight: 112 lbs 12/21/2017 Blood Pressure 1: 110/52 Code : 8480-6 BMI: 23.0 Code : 65044-6 Heart Rate 1 : 58 bpm Height: 4'11" SpO2: 94% Weight: 114 lbs 10/10/2017 Blood Pressure 1: 168/78 Code : 8480-6 BMI: 23.0 Code : 59001-1 Heart Rate 1 : 54 bpm Height: 4'11" SpO2: 98% Weight: 114 lbs 09/07/2017 Blood Pressure 1: 142/72 Code : 8480-6 Heart Rate 1: 84 bpm Height: 4'11" SpO2: 97% Weight: 08/30/2017 Blood Pressure 1: 188/82 Code : 8480-6 BMI: 24.4 Code : 80096-9 Heart Rate 1 : 79 bpm Height: 4'11" SpO2: 88% Temperature: 38.5 (C) / 101.3 (F) Weight: 121 lbs 08/15/2017 Blood Pressure 1: 166/78 Code : 8480-6 BMI: 22.8 Code : 63821-3 Heart Rate 1 : 71 bpm Height: 4'11" SpO2: 96% Weight: 113 lbs 06/15/2017 Blood Pressure 1: 138/68 Code : 8480-6 BMI: 22.8 Code : 10889-2 Heart Rate 1 : 54 bpm Height: 4'11" SpO2: 98% Weight: 113 lbs 05/29/2017 Blood Pressure 1: 96/46 Code : 8480-6 Blood Pressure 2: 116/57 Code: 8480-6 Heart Rate 1: 54 bpm 05/11/2017 Blood Pressure 1: 144/60 Code : 8480-6 BMI: 23.8 Code : 12955-8 Heart Rate 1 : 68 bpm Height: 4'11" SpO2: 97% Weight: 118 lbs 01/05/2017 Blood Pressure 1: 134/72 Code : 8480-6 BMI: 24.8 Code : 77324-0 Heart Rate 1 : 64 bpm Height: 4'11" SpO2: 94% Weight: 123 lbs 09/20/2016 Blood Pressure 1: 148/66 Code : 8480-6 BMI: 25.4 Code : 69264-0 Heart Rate 1 : 68 bpm Height: 4'11" SpO2: 97% Weight: 126 lbs 09/01/2016 Blood Pressure 1: 162/80 Code : 8480-6 BMI: 26.1 Code : 82374-0 Heart Rate 1 : 75 bpm Height: 4'11" SpO2: 95% Weight: 129 lbs 06/02/2016 Blood Pressure 1: 144/82 Code : 8480-6 BMI: 25.4 Code : 82469-1 Heart Rate 1 : 68 bpm Height: 4'11" SpO2: 98% Weight: 126 lbs 03/25/2016 Blood Pressure 1: 140/58 Code : 8480-6 BMI: 25.9 Code : 67243-9 Heart Rate 1 : 58 bpm Height: 4'11" SpO2: 95% Weight: 128 lbs 01/26/2016 Blood Pressure 1: 138/68 Code : 8480-6 BMI: 26.3 Code : 00587-5 Heart Rate 1 : 66 bpm Height: 4'11" SpO2: 96% Weight: 130 lbs 10/29/2015 Blood Pressure 1: 180/78 Code : 8480-6 BMI: 25.7 Code : 88305-0 Heart Rate 1 : 74 bpm Height: 4'11" SpO2: 97% Weight: 127 lbs 07/21/2015 Blood Pressure 1: 136/70 Code : 8480-6 BMI: 25.9 Code : 33005-1 Heart Rate 1 : 63 bpm Height: 4'11" SpO2: 95% Weight: 128 lbs 07/08/2015 Blood Pressure 1: 140/70 Code : 8480-6 BMI: 26.5 Code : 49560-6 Heart Rate 1 : 59 bpm Height: 4'11" SpO2: 94% Weight: 131 lbs 5 oz 05/04/2015 Blood Pressure 1: 140/60 Code : 8480-6 BMI: 25.7 Code : 31063-9 Heart Rate 1 : 60 bpm Height: [...] mellitus with hyperglycemia[ICD10: E11.65] Elizabeth Sow MD, [facility] CPT-4: 00969 07/17/2018 [id number] EST. PATIENT, LEVEL III Diagnosis: Type 2 diabetes mellitus with hyperglycemia[ICD10: E11.65] Diagnosis: Weakness[ICD10: R53.1] Diagnosis: Unsteadiness on feet[ICD10: R26.81] Elizabeth Sow MD, [facility] CPT-4: 90528 06/26/2018 ([id number]) 11899 EST. PATIENT, LEVEL IV Diagnosis: Type 2 diabetes mellitus with hyperglycemia[ICD10: E11.65] Diagnosis: Essential (primary) hypertension[ICD10: I10] Diagnosis: Muscle weakness (generalized)[ICD10: M62.81] Diagnosis: Localized edema[ICD10: R60.0] Kate Sow MD, [facility] CPT- 4: 26591 06/21/2018 ([id number]) 22827 EST. 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 PATIENT, LEVEL III Diagnosis: Low back pain[ICD10: M54.5] Elizabeth Sow MD, [facility] CPT-4 : 05065 04/27/2018 ([id number]) 40747 EST. PATIENT, LEVEL IV Diagnosis: Diplopia[ICD10: H53.2] Diagnosis: Rash and other nonspecific skin eruption[ICD10: R21] Diagnosis: Type 2 diabetes mellitus with hyperglycemia[ICD10: E11.65] Laney Sow MD, [facility] CPT-4: 97819 04/20/2018 ([id number]) 88312 EST. PATIENT, LEVEL III Diagnosis: Low back pain[ICD10: M54.5] Elizabeth Sow MD, [facility] CPT-4 : 69983 04/12/2018 ([id number]) 08943 EST. PATIENT, LEVEL III Diagnosis: Essential (primary) hypertension[ICD10: I10] Diagnosis: Type 2 diabetes mellitus with hyperglycemia[ICD10: E11.65] Kate Sow MD [facility] CPT-4: 18335 04/10/2018 ([id number]) 22132 EST. PATIENT, LEVEL III Diagnosis: Lumbago with sciatica, left side[ICD10: M54.42] Diagnosis: Essential (primary) hypertension[ICD10: I10] Laney Sow MD [facility] CPT-4: 41401 04/03/2018 ([id number]) 69626 EST. PATIENT, LEVEL IV Diagnosis: Type 2 diabetes mellitus with hyperglycemia[ICD10: E11.65] Diagnosis: Essential (primary) hypertension[ICD10: I10] Kate Sow MD [facility] CPT-4: 73231 03/13/2018 ([id number]) 38615 EST. PATIENT, LEVEL IV Diagnosis: Essential (primary) hypertension[ICD10: I10] Diagnosis: Type 2 diabetes mellitus with hyperglycemia[ICD10: E11.65] Kate Sow MD [facility] CPT-4: 29833 02/01/2018 ([id number]) 03953 EST. PATIENT, LEVEL IV Diagnosis: Type 2 diabetes mellitus with hyperglycemia[ICD10: E11.65] Diagnosis: Essential (primary) hypertension[ICD10: I10] Kate Sow MD [facility] CPT-4: 75857 01/18/2018 ([id number]) Miscellaneous no charge Diagnosis: Type 2 diabetes mellitus with hyperglycemia[ICD10: E11.65] Elizabeth Sow MD [facility] CPT-4: 56267 12/22/2017 ([id number]) 22822 EST. PATIENT, LEVEL IV Diagnosis: Type 2 diabetes mellitus with hyperglycemia[ICD10: E11.65] Diagnosis: Essential (primary) hypertension[ICD10: I10] Diagnosis: Muscle weakness (generalized)[ICD10: M62.81] Kate Sow MD [facility] CPT-4: 27753 12/21/2017 48790 EST. PATIENT, LEVEL IV Diagnosis: Type 2 diabetes mellitus without complications[ICD10: E11.9] Diagnosis: Mixed hyperlipidemia[ICD10: E78.2] Diagnosis: Essential (primary) hypertension[ICD10: I10] Elizabeth Sow MD, [facility] CPT-4: 77965 10/10/2017 05740 EST. PATIENT, LEVEL III Diagnosis: Weakness[ICD10: R53.1] Diagnosis: Essential (primary) hypertension[ICD10: I10] Elizabeth Sow MD, [facility] CPT-4: 75727 09/07/2017 09883 EST. PATIENT, LEVEL III Diagnosis: Encounter for follow-up examination after completed treatment for conditions other than malignant neoplasm[ICD10: Z09] Diagnosis: Weakness[ICD10: R53.1] Diagnosis: Essential (primary) hypertension[ICD10: I10] Diagnosis: Dyspnea, unspecified[ICD10: R06.00] Diagnosis: Unsteadiness on feet[ICD10: R26.81] Elizabeth Sow MD, [facility] CPT-4: 10115 08/30/2017 ([id number]) 55385 EST. PATIENT, LEVEL IV Diagnosis: Type 2 diabetes mellitus without complications[ICD10: E11.9] Diagnosis: Essential (primary) hypertension[ICD10: I10] Kate Sow MD [facility] CPT-4: 45479 08/15/2017 ([id number]) 61846 EST. PATIENT, LEVEL IV Diagnosis: Type 2 diabetes mellitus without complications[ICD10: E11.9] Diagnosis: Essential (primary) hypertension[ICD10: I10] Diagnosis: Unsteadiness on feet[ICD10: R26.81] Kate Sow MD, [facility] CPT-4: 56802 06/15/2017 ([id number]) Miscellaneous no charge Diagnosis: Essential (primary) hypertension[ICD10: I10] Laney Sow MD, [facility] CPT-4: 42911 05/29/2017 ([id number]) 41678 EST. PATIENT, LEVEL IV Diagnosis: Type 2 diabetes mellitus without complications[ICD10: E11.9] Diagnosis: Essential (primary) hypertension[ICD10: I10] Diagnosis: Mixed hyperlipidemia[ICD10: E78.2] Kate Sow MD, [facility] CPT-4: 28212 05/11/2017 ([id number]) 75425 EST. PATIENT, LEVEL IV Diagnosis: Type 2 diabetes mellitus without complications[ICD10: E11.9] Diagnosis: Essential (primary) hypertension[ICD10: I10] Kate Sow MD [facility] CPT-4: 02676 01/05/2017 ([id number]) 22059 EST. PATIENT, LEVEL III Diagnosis: Essential (primary) hypertension[ICD10: I10] Kate Sow MD [facility] CPT-4: 15224 09/20/2016 ([id number]) 67574 EST. PATIENT, LEVEL III Diagnosis: Essential (primary) hypertension[ICD10: I10] Laney Sow MD, [facility] CPT-4: 36420 09/01/2016 ([id number]) Miscellaneous no charge Diagnosis: Impacted cerumen, right ear[ICD10: H61.21] Elizabeth Sow MD, [facility] CPT-4: 24377 06/08/2016 ([id number]) 06350 EST. PATIENT, LEVEL IV Diagnosis: Type 2 diabetes mellitus without complications[ICD10: E11.9] Diagnosis: Essential (primary) hypertension[ICD10: I10] Diagnosis: Encounter for immunization[ICD10: Z23] Kate Sow MD, [facility] CPT-4: 83251 06/02/2016 82929 EST. PATIENT, LEVEL III Diagnosis: Essential (primary) hypertension[ICD10: I10] Diagnosis: Other specified cardiac arrhythmias[ICD10: I49.8] Elizabeth Sow MD, [facility] CPT-4: 25376 03/25/2016 ([id number]) 75171 EST. PATIENT, LEVEL IV Diagnosis: Type 2 diabetes mellitus without complications[ICD10: E11.9] Diagnosis: Essential (primary) hypertension[ICD10: I10] Kate Sow MD, [facility] CPT-4: 42202 01/26/2016 ([id number]) 64107 EST. PATIENT, LEVEL IV Diagnosis: Essential (primary) hypertension[ICD10: I10] Diagnosis: Type 2 diabetes mellitus without complications[ICD10: E11.9] Kate Sow MD, [facility] CPT-4: 07549 10/29/2015 ([id number]) 55024 EST. PATIENT, LEVEL IV Diagnosis: Essential (primary) hypertension[ICD10: I10] Diagnosis: Dyspnea, unspecified[ICD10: R06.00] [facility] CPT-4: 61799 07/21/2015 ([id number]) 55729 EST. PATIENT, LEVEL III Diagnosis: Edema, unspecified[ICD10: R60.9] Kate Sow MD, [facility] CPT-4: 35191 07/08/2015 ([id number]) OFFICE VISIT, NEW - LEVEL 4 Diagnosis: ESSENTIAL HYPERTENSION[ICD9: 401.9] Diagnosis: DIABETES TYPE II[ICD9: 250.00] Kate Sow MD, [facility] CPT- 4: 87474 05/04/2015 Plan of Care Planned Activity Notes [...] glucose control. 07/17/2018 Appointment: Elizabeth Milner WPtel: [address] [place], [place] [address] (15 min) Moderate 07/17/2018 Patient Education: Patient [...] control. 06/26/2018 [facility] [phone] [facility] (15 min) Moderate 06/26/2018 Patient Education: Patient Medication Summary Completed 06/26/2018 Patient Education: Diabetes Completed 06/26/2018 Visit Plan: Diabetes improved control while at the [place] [facility] - discussed with patient and her daughte [...] Assisted Living. 06/21/2018 [facility] [phone] [facility] [place] (15 min) Moderate 06/21/2018 Patient Education: Patient Medication Summary Completed 06/21/2018 Patient Education: Diabetes Completed 06/21/2018 App[facility]: [facility] [phone] [facility] [place] (15 min) Moderate 05/09/2018 Visit [...] better. 05/02/2018 Appointment: Kate Sow WPtel: [phone] [facility] (15 min) Moderate 05/02/2018 Patient Education: Patient Medication Summary Completed 05/02/2018 Care Plan: X-RAY EXAM L-S SPINE 10/21 S LOINC : 81560-9 Pending 05/02/2018 Visit Plan: Low back pain- the patient was instructed in appropriate posture - The pt is to use prn antiinflammatories to manage acute pain. The patient is to call the office if the pain is worsening or does not improve. 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 04/12/2018 Appointment: [facility] [phone] [facility] (15 min) Moderate 04/12/2018 Patient Education: [...] controlled. 04/10/2018 Appointment: Kate Sow WPtel: [phone] [facility] [place] (15 min) Moderate 04/10/2018 Patient [...] concerns. 04/03/2018 Appointment: Laney Mcmillan WPtel: [phone] [phone] [place] (15 min) Moderate 04/03/2018 Patient Education: [...] at home. 03/13/2018 Appointment: Kate Sow WPtel: [address] [place], [place] [address] (15 min) Moderate 03/13/2018 Patient Education: Patient [...] diabetic diet. 02/01/2018 Appointment: Kate Sow WPtel: [facility] (15 min) Moderate 02/01/2018 Patient Education: [...] 100mg daily. 01/18/2018 Appointment: Kate Sow WPtel: [facility] (15 min) Moderate 01/18/2018 Patient Education: Patient Medication Summary Completed 01/18/2018 Appointment: Kate Sow WPtel: [facility] (15 min) Moderate 01/11/2018 Appointment: Kate [facility]ow [facility]Ptel[facility] (15 min) Moderate 12/25/2017 Visit Plan: [...] outpt 12/21/2017 App[facility]ment: [facility] [phone] [facility] [place] (15 min) Moderate 12/21/2017 Patient Education: Patient Medication Summary Completed 12/21/2017 App[facility]: [phone] [place] (15 min) Moderate 12/13/2017 Visit [...] control. 10/10/2017 App[facility]ment[phone] (15 min) Moderate 10/10/2017 Patient Education: [...] at home. 09/07/2017 Appointment: Elizabeth Milner [facility]Ptel[facility] (30 min) Complex 09/07/2017 Patient Education: Patient Medication Summary Completed 09/07/2017 Appointment: [facility]el[phone] (15 min) Moderate 09/05/2017 Visit Plan: Hospital follow up - Dr. Sow in to see pt - pt was in the hospital with uncontrolled hypertension and a. fib - controlled at this time - persistent weakness requiring ongoing PT and assistance with some ADLs and medication management - will admit pt to alf facility for ongoing rehabilitation. 08/30/2017 Appointment: Fartun Milnerie WPtel: [phone] [facility] (30 min) Complex 08/30/2017 Patient Education: Patient Medication Summary Completed 08/30/2017 Appointment: Fartun Milnerie WPtel: [phone] [facility] (15 min) Moderate 08/29/2017 Visit Plan: Diabetes [...] home. 08/15/2017 Appointment: Kate Sow WPtel: [phone] [facility] (15 min) Moderate 08/15/2017 Patient Education: Patient Medication Summary Completed 08/15/2017 Care Plan: %Hba1C [facility] : [address]-3 Cancelled 08/15/2017 Ref[phone] Patient's informed. Completed 06/26/2017 Visit Plan: [...] glucose control. Gait Instability - referral to [facility] physical therapy for gait instability. Hypertension - well controlled - continue with current medications , continue with no added salt diet. Pt has been encouraged to exercise daily. The pt has been advised to call the office if there are any acute concerns about change in blood pressure readings at home. 06/15/2017 Appointment: [facility]ow [facility]el[phone] (15 min) Moderate 06/15/2017 Patient Education: Patient Medication Summary Completed 06/15/2017 Care Plan: Referral Order SNOMED-CT : [id number] Pending 06/15/2017 Appointment: Nurse Visit 05/29/2017 Patient [...] and come in here or go to [facility] or [facility] to get this set of labs [...] Statin 05/11/2017 Appointment: [facility]el[phone] (15 min) Moderate 05/11/2017 Patient Education: [...] daily. 01/05/2017 Appointment: [facility]el[phone] (15 min) Moderate 01/05/2017 Patient Education: [...] at home. 09/20/2016 Appointment: [facility]el[phone] (30 min) Complex 09/20/2016 Patient Education: [...] concerns. 09/01/2016 Appointment: Laney Mcmillan WPtel: [phone] [facility] (30 min) Complex 09/01/2016 Patient Education: Patient Medication Summary Completed 09/01/2016 Appointment: Kate Sow WPtel: [phone] [facility] (15 min) Moderate 08/31/2016 Appointment: Nurse [...] controlled. 06/02/2016 Appointment: Kate Sow WPtel: [phone] [facility] [place] (15 min) Moderate 06/02/2016 Patient Education: Patient Medication Summary Completed 06/02/2016 Patient Education: Hypertension Completed 06/02/2016 Visit Plan: Bradycardia - reports pt has brought in indicates that the pt has been having a pulse in the 40s-50s. Will adjust medications, pt is to notify clinic if her symptoms do not improve, or with any concerns. 03/25/2016 Appointment: Laney Mcmillan WPtel: [phone] [facility] [place] (10 min) Simple 03/25/2016 Patient Education: [...] DM - managed by Dr. Johnson from [place] 01/26/2016 Patient Education: Patient Medication Summary Completed 01/26/2016 Patient Education: Hypertension Completed 01/26/2016 Appointment: Laney Mcmillan WPtel: [facility] (30 min) Complex 12/31/2015 Visit Plan: [...] controlled. 10/29/2015 Appointment: Kate Sow WPtel: [phone] [facility] (15 min) Moderate 10/29/2015 Patient Education: Patient Medication Summary Completed 10/29/2015 Patient Education: Hypertension Completed 10/29/2015 Appointment: Kate Sow WPtel: [phone] [facility] (15 min) Moderate 09/14/2015 Visit Plan: [...] today, as soon as you get to [place], monday morning, then start taking the lasix [...] handout Begin using muscle rub on back ([place] balm) 05/04/2015 Appointment: [facility]el[phone] [place] (S) New Patient 05/04/2015 Patient Education: Patient Medication Summary Completed 05/04/2015 Patient Education: Hypertension Completed 05/04/2015 Referral: Kar[facility] physical therapy WPtel: [phone] [facility] [place] Referral Appointment Requested Instructions Comment see if Dr. Johnson has the toujeo samples for you - if not , go to the pharmacy to pickle solution maker the toujeo script. if the toujeo [...] glucose control. Gait Instability - referral to [facility] therapy for gait instability. 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 . Bradycardia - [...] DM - managed by Dr. Johnson from [place] . Low back pain- the patient was [...] and come in here or go to [facility] or [facility] to get this set [...] and come in here or go to [facility] or [facility] to get this set [...] . Diabetes improved control while at [facility] [place] [facility] - discussed with patient and her hirale [...] handout Begin using muscle rub on back ([place] balm) Begin taking Lasix again No blood [...] handout Begin using muscle rub on back ([place] balm)
[2018-07-31 00:02] LABS: BASOPHILS % (AUTO) 1 % (0-10); EOSINOPHILS # (AUTO) 0.3 10^3/uL (0.0-0.3); EOSINOPHILS % (AUTO) 4 % (0-10); HEMATOCRIT 42 % (35-52); HEMOGLOBIN 13.4 G/DL (11.5-16.0); LYMPHOCYTES # (AUTO) 3.1 X 10^3 (1.0-4.0); LYMPHOCYTES % (AUTO) 43 % (12-44); MEAN CORPUSCULAR HEMOGLOBIN 30 PG (25-34); MEAN CORPUSCULAR HGB CONC 32 G/DL (32-36); MEAN CORPUSCULAR VOLUME 93 FL (80-99); MEAN PLATELET VOLUME 10.7 FL (7.4-10.4); MONOCYTES # (AUTO) 0.9 X 10^3 (0.0-1.0); MONOCYTES % (AUTO) 12 % (0-12); NEUTROPHILS # (AUTO) 2.9 X 10^3 (1.8-7.8); NEUTROPHILS % (AUTO) 40 % (42-75); PLATELET COUNT 368 10^3/uL (130-400); RED BLOOD COUNT 4.49 10^6/uL (4.35-5.85); RED CELL DISTRIBUTION WIDTH 14.9 % (10.0-14.5); WHITE BLOOD COUNT 7.2 10^3/uL (4.3-11.0)
[2018-07-31 00:24] LABS: BILIRUBIN,URINE NEGATIVE (NEGATIVE); CLARITY,URINE CLEAR; COLOR,URINE YELLOW; GLUCOSE, URINE (UA) 4+ (NEGATIVE); KETONES,URINE NEGATIVE (NEGATIVE); LEUKOCYTE ESTERASE ,URINE 2+ (NEGATIVE); NITRITE,URINE NEGATIVE (NEGATIVE); PH,URINE 6 (5-9); PROTEIN,URINE 3+ (NEGATIVE); UROBILINOGEN,URINE NORMAL (NORMAL)
[2018-07-31 00:34] LABS: BACTERIA,URINE FEW /HPF; SQUAMOUS EPITHELIAL CELL,UR 0-2 /HPF
[2018-07-31 00:38] LABS: ALBUMIN 3.3 GM/DL (3.2-4.5); BILIRUBIN,TOTAL 0.2 MG/DL (0.1-1.0); CALCIUM 9.4 MG/DL (8.5-10.1); CREATININE SERUM 1.39 MG/DL (0.60-1.30); POTASSIUM 4.4 MMOL/L (3.6-5.0); TOTAL PROTEIN 5.9 GM/DL (6.4-8.2)
--- NOTE | 2018-07-31 01:12 | ED General ---
General Chief Complaint: Glucose Problems Stated Complaint: ELEVATED BLOOD SUGAR Nursing Triage Note: PT AMB TO ROOM #10 W/O DIFFICULTY. A&OX4. C/O HYPERGLYCEMIA AND HYPERTENSION. PT REPORTS GLUCOSE HAS BEEN FLUCTUATING FOR APPROX 4 MONTHS NOW. PT REPORTS SHE NOTICED HER BP INCREASE YESTERDAY. INITIAL BP 236/95 Nursing Sepsis Screen: No Definite Risk Source of Information: Patient Exam Limitations: No Limitations History of Present Illness Date Seen by Provider: Jul 31, 2018 Time Seen by Provider: 23:16 Initial Comments This 88-year-old woman presents to the emergency room with concerns about hyperglycemia. She states Dr. Sow told her to present to the emergency room if blood sugars were over 400 and it was outside of office hours. Patient denies any symptoms at this time. She is noted to be markedly hypertensive. She is unclear about whether she has taken her blood pressure medications today. Blood sugar on assessment was 352. Patient is somewhat reluctant to receive workup and treatment. Allergies and Home Medications Allergies Coded Allergies: No Known Drug Allergies (Unverified , 03/17/18) Home Medications Amlodipine Besylate 5 Mg Tablet, 5 MG PO DAILY, (Reported) Apixaban 2.5 Mg Tablet, 2.5 MG PO BID, (Reported) Aspirin 81 Mg Tab.chew, 81 MG PO DAILY, (Reported) Atorvastatin Calcium 40 Mg Tablet, 40 MG PO HS, (Reported) Cefdinir 300 Mg Capsule, 300 MG PO BID Prescribed by: JONN SOW on 06/15/18 1006 Cephalexin 500 Mg Capsule, 500 MG PO TID Prescribed by: BRUNO HYATT on 07/31/18 0112 Dronedarone HCl 400 Mg Tablet, 400 MG PO BID, (Reported) Furosemide 20 Mg Tablet, 20 MG PO DAILY PRN for SWELLING, (Reported) Insulin Aspart 300 Units/3 Ml Solution, SC AC, (Reported) 80-150 = 10 UNITS 151-200 = 15 UNITS 201-300 = 17 UNITS > 300 = 21 UNITS Insulin Glargine,Hum.rec.anlog 300 Unit/1 Ml Insuln.pen, 20 UNIT SQ HS, ( Reported) Lactobacillus Acidophilus 1 Each Capsule, 1 EACH PO TID Prescribed by: JONN SOW on 06/15/18 1006 Losartan Potassium 100 Mg Tablet, 100 MG PO DAILY, (Reported) Metoprolol Succinate 50 Mg Tab.er.24h, 50 MG PO DAILY Prescribed by: JONN SOW on 06/15/18 1006 Potassium Chloride 10 Meq Tablet.er, 10 MEQ PO DAILY PRN for WHEN TAKING FUROSEMIDE, (Reported) Patient Home Medication List Home Medication List Reviewed: Yes Review of Systems Review of Systems Constitutional: no symptoms reported EENTM: no symptoms reported Respiratory: no symptoms reported Cardiovascular: see HPI Gastrointestinal: no symptoms reported Genitourinary: no symptoms reported : No Musculoskeletal: no symptoms reported Skin: no symptoms reported Psychiatric/Neurological: No Symptoms Reported Hematologic/Lymphatic: No Symptoms Reported Immunological/Allergic: no symptoms reported Past Dsurdpx-Rvbhcu-Svymmc Hx Past Med/Social Hx: Reviewed Nursing Past Med/Soc Hx Patient Social History Alcohol Beverage of Choice: Rum 2nd Hand Smoke Exposure: No Recent Foreign Travel: No Contact w/Someone Who Travel: No Recent Infectious Disease Expo: No Recent Hopitalizations: Yes (ED VISITS FOR BLOOD SUGAR PROB) Immunizations Up To Date Tetanus Booster (TDap): Unknown PED Vaccines UTD: No Date of Pneumonia Vaccine: Jun 18, 2017 Date of Influenza Vaccine: Aug 08, 2017 Seasonal Allergies Seasonal Allergies: No Past Medical History Surgeries: Yes (RIGHT FOOT SURGERY) Respiratory: No Currently Using CPAP: No Currently Using BIPAP: No Cardiac: Yes (STENTS, MONITOR PLACED BY DR. 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 Sexually Transmitted Disease: No HIV/AIDS: No Genitourinary: Yes ( KIDNEY DISEASE) Renal Failure Gastrointestinal: No Musculoskeletal: Yes Arthritis Endocrine: Yes Diabetes, Insulin dep HEENT: Yes Cataract Loss of Vision: Denies Hearing Impairment: Hard of Hearing, Bilateral Hearing Aide Cancer: No Psychosocial: No Integumentary: No Blood Disorders: No Adverse Reaction/Blood Tranf: No Family Medical History Alzheimer's disease 19 MOTHER, Arthritis 19 FATHER, 19 MOTHER, G8 BROTHER, G8 BROTHER, G8 BROTHER G8 SISTER G8 SISTER Cardiovascular disease 19 MOTHER, G8 BROTHER, Completed stroke 19 MOTHER, G8 SISTER Hypercholesterolemia 19 FATHER, G8 BROTHER, Hypertension 19 MOTHER, Myocardial infarction 19 FATHER, G8 BROTHER, Heart Disease, Diabetes, Hypertension, Stroke Physical Exam Vital Signs Vital Signs - First Documented 07/30/18 23:20 Temp 98.8 Pulse 62 Resp 20 B/P (MAP) 236/95 (142) Pulse Ox 97 O2 Delivery Room Air Capillary Refill : Less Than 3 Seconds Height, Weight, BMI Height: 5'0" Weight: 110lbs. 8.0oz. 49.660201jn; 18.5 BMI Method:Stated General Appearance: No Apparent Distress, WD/WN, Thin HEENT: PERRL/EOMI, Normal ENT Inspection Neck: Normal Inspection Respiratory: Lungs Clear, Normal Breath Sounds, No Accessory Muscle Use, No Respiratory Distress Cardiovascular: Regular Rate, Rhythm, No Edema, No Murmur Gastrointestinal: Non Tender, Soft Extremity: Normal Inspection, No Pedal Edema Neurologic/Psychiatric: Alert, Oriented x3, No Motor/Sensory Deficits, Normal Mood/Affect, wheel cutter II-XII Norm as Tested (Heart of hearing) Skin: Normal Color, Warm/Dry Progress/Results/Core Measures Suspected Sepsis Recent Fever Within 48 Hours: No Infection Criteria Present: None New/Unexplained Altered Menta: No Sepsis Screen: No Definite Risk SIRS Temperature:98.8 Pulse: 62 Respiratory Rate: 20 Laboratory Tests 07/30/18 23:55: White Blood Count 7.2 Blood Pressure 236 /95 Mean: 142 Laboratory Tests 07/30/18 23:55: Creatinine 1.39H, Platelet Count 368, Total Bilirubin 0.2 Results/Orders Lab Results Laboratory Tests Test 07/30/18 00:18 07/30/18 23:25 07/30/18 23:55 Range/Units Urine Color YELLOW Urine Clarity CLEAR Urine pH 6 5-9 Urine Specific [place] 1.015 L 1.016-1.022 Urine Protein 3+ H NEGATIVE Urine Glucose (UA) 4+ H NEGATIVE Urine Ketones NEGATIVE NEGATIVE Urine Nitrite NEGATIVE NEGATIVE Urine Bilirubin NEGATIVE NEGATIVE Urine Urobilinogen NORMAL NORMAL MG/DL Urine Leukocyte Esterase 2+ H NEGATIVE Urine RBC (Auto) 1+ H NEGATIVE Urine RBC NONE /HPF Urine WBC 10-25 H /HPF Urine Squamous Epithelial Cells 0-2 /HPF Urine Crystals NONE /LPF Urine Bacteria FEW H /HPF Urine Casts NONE /LPF Urine Mucus NEGATIVE /LPF Urine Culture Indicated YES Glucometer 352 H 70-110 MG/DL White Blood Count 7.2 4.3-11.0 10^3/uL Red Blood Count 4.49 4.35-5.85 10^6/uL Hemoglobin 13.4 11.5-16.0 G/DL Hematocrit 42 35-52 % Mean Corpuscular Volume 93 80-99 FL Mean Corpuscular Hemoglobin 30 25-34 PG Mean Corpuscular Hemoglobin Concent 32 32-36 G/DL Red Cell Distribution Width 14.9 H 10.0-14.5 % Platelet Count 368 130-400 10^3/uL Mean Platelet Volume 10.7 H 7.4-10.4 FL Neutrophils (%) (Auto) 40 L 42-75 % Lymphocytes (%) (Auto) 43 12-44 % Monocytes (%) (Auto) 12 0-12 % Eosinophils (%) (Auto) 4 0-10 % Basophils (%) (Auto) 1 0-10 % Neutrophils # (Auto) 2.9 1.8-7.8 X 10^3 Lymphocytes # (Auto) 3.1 1.0-4.0 X 10^3 Monocytes # (Auto) 0.9 0.0-1.0 X 10^3 Eosinophils # (Auto) 0.3 0.0-0.3 10^3/uL Basophils # (Auto) 0.0 0.0-0.1 10^3/uL Sodium Level 141 135-145 MMOL/L Potassium Level 4.4 3.6-5.0 MMOL/L Chloride Level 109 H 98-107 MMOL/L Carbon Dioxide Level 23 21-32 MMOL/L Anion Gap 9 5-14 MMOL/L Blood Urea Nitrogen 27 H 7-18 MG/DL Creatinine 1.39 H 0.60-1.30 MG/DL Estimat Glomerular Filtration Rate 36 BUN/Creatinine Ratio 19 Glucose Level 388 H 70-105 MG/DL Calcium Level 9.4 8.5-10.1 MG/DL Corrected Calcium 10.0 8.5-10.1 MG/DL Total Bilirubin 0.2 0.1-1.0 MG/DL Aspartate Amino Transf (AST/SGOT) 17 5-34 U/L Alanine Aminotransferase (ALT/SGPT) 20 0-55 U/L Alkaline Phosphatase 85 40-136 U/L Total Protein 5.9 L 6.4-8.2 GM/DL Albumin 3.3 3.2-4.5 GM/DL My Orders Orders - BRUNO MCCABE MD Cbc With Automated Diff (07/30/18 23:16) Comprehensive Metabolic Panel (07/30/18 23:16) Ua Culture If Indicated (07/30/18 23:16) Saline Lock/Iv-Start (07/30/18 23:16) Accucheck Stat ONCE (07/30/18 23:16) Amlodipine Tablet (Norvasc Tablet) (07/31/18 00:15) Insulin (Regular) Human (Humulin R (Per (07/31/18 00:15) Urine Culture (07/30/18 00:18) Ceftriaxone For Iv Use (Rocephin For I (07/31/18 01:00) Ns Iv 1000 Ml (Sodium Chloride 0.9%) (07/31/18 00:50) Medications Given in ED Vital Signs/I&O Capillary Refill : Less Than 3 Seconds Blood Pressure Mean: 142 Point of Care Testing Finger Stick Blood Glucose: 352 Blood Glucose Action Taken: NOTIFIED DR. MCCABE Progress Note : Progress Note Patient was given an additional amlodipine 5 mg orally to help treat her hypertensive urgency. Labs and urinalysis were obtained. She was found to have renal insufficiency beyond her baseline and a urinary tract infection. She was treated with IV fluids and Rocephin. She was also given regular insulin 10 units subcutaneously and blood sugars were trending down after that. Blood pressure was also modestly trending down after amlodipine. Departure Impression Primary Impression: Hyperglycemia Additional Impressions: Hypertension Qualified Codes: I10 - Essential (primary) hypertension Urinary tract infection Qualified Codes: N39.0 - Urinary tract infection, site not specified Renal insufficiency Disposition: HOME, SELF-CARE Condition: Improved Departure-Patient Inst. Referrals: JONN SOW MD (PCP/Family) Primary Care Physician Patient Instructions: Urinary Tract Infections in Adults Add. Discharge Instructions: Drink plenty of clear liquids. Follow-up with your primary care provider tomorrow for further instructions. Have your doctor review urine culture results on Monday or . Return to care if you have worsening symptoms. Continue your current medications as prescribed until otherwise instructed by your doctor. All discharge instructions reviewed with patient and/or family. Voiced understanding. Scripts Cephalexin (Keflex) 500 Mg Capsule 500 MG PO TID, #20 CAP Prov: BRUNO MCCABE MD 07/31/18 Copy Copies To 1: JONN SOW MD, JOSHUA T MD Jul 31, 2018 01:12
[2018-07-31 02:22] VITALS: BP 192/72
== END | disposition home or self-care (01) ==
LOC: EDUNIT# 23:10 → ER 23:11
DX: E11.65 Type 2 diabetes mellitus with hyperglycemia (principal); I10 Essential (primary) hypertension; N39.0 Urinary tract infection, site not specified; N28.9 Disorder of kidney and ureter, unspecified; I25.2 Old myocardial infarction; I73.9 Peripheral vascular disease, unspecified; I48.91 Unspecified atrial fibrillation; Z79.82 Long term (current) use of aspirin; Z86.73 Personal history of transient ischemic attack (TIA), and cerebral infarction without residual deficits; Z79.4 Long term (current) use of insulin; Z82.49 Family history of ischemic heart disease and other diseases of the circulatory system
CPT/HCPCS: 36415; 80053; 81000; 82962; 85025; 87077; 87088

== ENCOUNTER 2018-08-16 11:49 | Emergency (ER) | payer MEDICARE, OTHER ==
[~2018-08-16] VITALS: Ht 152.4 cm; Wt 51.3 kg
[~2018-08-16 11:49] MED LIST changes: -NS IV 1000 ML 1,000 ML IV ONE; -amLODIPine 5 MG (NORVASC) TAB PO ONE; -cefTRIAXone FOR IV USE 1,000 MG in NS (IVPB) 50 ML IV ONE; -inSUlin (REGULAR) HUMAN 1 UNIT/0.01 ML (CHARGE PER UNIT) SC ONE
[2018-08-16 12:17] LABS: BILIRUBIN,URINE NEGATIVE (NEGATIVE); CLARITY,URINE CLEAR; COLOR,URINE YELLOW; GLUCOSE, URINE (UA) 2+ (NEGATIVE); KETONES,URINE NEGATIVE (NEGATIVE); LEUKOCYTE ESTERASE ,URINE 2+ (NEGATIVE); NITRITE,URINE NEGATIVE (NEGATIVE); PH,URINE 6 (5-9); PROTEIN,URINE 3+ (NEGATIVE); UROBILINOGEN,URINE NORMAL (NORMAL)
[2018-08-16] MEDS ORDERED: FUROSEMIDE 20 MG (LASIX) TAB PO ONE (12:30)
[2018-08-16] MEDS ORDERED: APIXABAN 5 MG (ELIQUIS) TABLET PO ONE (12:30)
[2018-08-16] MEDS ORDERED: meTOproloL SUCCINATE 50 MG (TOPROL XL) TAB PO SCH (12:30)
[2018-08-16] MEDS ORDERED: LOSARTAN 100 MG (COZAAR) TABLET PO ONE (12:30)
[2018-08-16] MEDS ORDERED: ASPIRIN E.C. 81 MG (ECOTRIN) TAB PO ONE (12:30)
[2018-08-16 12:36] LABS: BACTERIA,URINE FEW /HPF; SQUAMOUS EPITHELIAL CELL,UR 0-2 /HPF
[2018-08-16 12:44] LABS: BASOPHILS # (AUTO) 0.1 10^3/uL (0.0-0.1); BASOPHILS % (AUTO) 1 % (0-10); EOSINOPHILS # (AUTO) 0.5 10^3/uL (0.0-0.3); EOSINOPHILS % (AUTO) 6 % (0-10); HEMATOCRIT 42 % (35-52); HEMOGLOBIN 13.4 G/DL (11.5-16.0); LYMPHOCYTES # (AUTO) 2.9 X 10^3 (1.0-4.0); LYMPHOCYTES % (AUTO) 36 % (12-44); MEAN CORPUSCULAR HEMOGLOBIN 30 PG (25-34); MEAN CORPUSCULAR HGB CONC 32 G/DL (32-36); MEAN CORPUSCULAR VOLUME 92 FL (80-99); MEAN PLATELET VOLUME 10.7 FL (7.4-10.4); MONOCYTES # (AUTO) 1.1 X 10^3 (0.0-1.0); MONOCYTES % (AUTO) 14 % (0-12); NEUTROPHILS # (AUTO) 3.6 X 10^3 (1.8-7.8); NEUTROPHILS % (AUTO) 44 % (42-75); PLATELET COUNT 434 10^3/uL (130-400); RED BLOOD COUNT 4.51 10^6/uL (4.35-5.85); WHITE BLOOD COUNT 8.2 10^3/uL (4.3-11.0)
[2018-08-16] MEDS ORDERED: DRONEDARONE TABLET 400 MG TABLET PO ONE (13:00)
[2018-08-16 13:03] LABS: ALBUMIN 3.4 GM/DL (3.2-4.5); BILIRUBIN,TOTAL 0.3 MG/DL (0.1-1.0); CALCIUM 9.9 MG/DL (8.5-10.1); CREATININE SERUM 1.1 MG/DL (0.60-1.30); POTASSIUM 4.3 MMOL/L (3.6-5.0); TOTAL PROTEIN 6.3 GM/DL (6.4-8.2)
--- NOTE | 2018-08-16 13:18 | ED General ---
General Chief Complaint: Glucose Problems Stated Complaint: HYPERGLYCEMIA Nursing Triage Note: ARRIVED VIA EMS TO ROOM 07. STATES SHE WAS AT [facility] WHEN SHE STARTED HAVING TUNNEL VISION AND SEEING LIGHTS. BLOOD SUGAR WAS 257. UPON EMS ARRIVAL BLOOD SUGAR 250. DAUGHTER STATES THE LAST TIME THIS HAPPENED SHE HAD A UTI. Nursing Sepsis Screen: No Definite Risk Source of Information: Patient Exam Limitations: No Limitations History of Present Illness Date Seen by Provider: Aug 16, 2018 Time Seen by Provider: 12:05 Initial Comments This 88-year-old woman presents to the emergency room with complaints of a brief vision change in the left of her vision which she described as flashes. Those have resolved and she states her vision is now normal. She also felt lightheaded at the time. This occurred around 10:30. She had a second very brief episode as well. Blood sugar was checked at that time and was 257. Patient ate some chocolate and crackers because she thought her blood sugar might be an issue. Patient admits to forgetting to take all of her morning medications including Lasix, losartan, Eliquis, metoprolol, Multaq, amlodipine, and aspirin. She feels relatively well now except feels a little wobbly with walking. Nursing staff reports that she walked to the restroom on her own power without trouble. Patient also does not remember taking her insulin this morning. A home nurse evaluated her at 11:12. At that time she was found to have a blood sugar 257, blood pressure 142/88, and temperature of 97.6. Review of her chart notes an ER visit within the past month for urinary tract infection and hypertensive urgency. Patient is known to me from that prior visit. 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 Patient states she has since been seen by Dr. Hennessy and told that there are no interventions indicated at this time. Patient is alert and oriented. Family reports that patient had a similar episode previously with urinary tract infection. Patient has systolic blood pressures exceeding 200 during this visit. Allergies and Home Medications Allergies Coded Allergies: No Known Drug Allergies (Unverified , 03/17/18) Home Medications Amlodipine Besylate 5 Mg Tablet, 5 MG PO DAILY, (Reported) Apixaban 2.5 Mg Tablet, 2.5 MG PO BID, (Reported) Aspirin 81 Mg Tab.chew, 81 MG PO DAILY, (Reported) Atorvastatin Calcium 40 Mg Tablet, 40 MG PO HS, (Reported) Cefdinir 300 Mg Capsule, 300 MG PO BID Prescribed by: JONN SOW on 06/15/18 100 Cephalexin 500 Mg Capsule, 500 MG PO TID Prescribed by: BRUNO HYATT on 07/31/18 0112 Cephalexin 500 Mg Capsule, 500 MG PO TID Prescribed by: BRUNO HYATT on 08/16/18 1410 Dronedarone HCl 400 Mg Tablet, 400 MG PO BID, (Reported) Furosemide 20 Mg Tablet, 20 MG PO DAILY PRN for SWELLING, (Reported) Insulin Aspart 300 Units/3 Ml Solution, SC AC, (Reported) 80-150 = 10 UNITS 151-200 = 15 UNITS 201-300 = 17 UNITS > 300 = 21 UNITS Insulin Glargine,Hum.rec.anlog 300 Unit/1 Ml Insuln.pen, 20 UNIT SQ HS, ( Reported) Lactobacillus Acidophilus 1 Each Capsule, 1 EACH PO TID Prescribed by: JONN SOW on 06/15/18 100 Losartan Potassium 100 Mg Tablet, 100 MG PO DAILY, (Reported) Metoprolol Succinate 50 Mg Tab.er.24h, 50 MG PO DAILY Prescribed by: JONN SOW on 06/15/18 100 Potassium Chloride 10 Meq Tablet.er, 10 MEQ PO DAILY PRN for WHEN TAKING FUROSEMIDE, (Reported) Patient Home Medication List Home Medication List Reviewed: Yes Review of Systems Review of Systems Constitutional: no symptoms reported EENTM: see HPI Respiratory: no symptoms reported Cardiovascular: see HPI Gastrointestinal: no symptoms reported Genitourinary: see HPI : No Musculoskeletal: no symptoms reported Skin: no symptoms reported Psychiatric/Neurological: See HPI Hematologic/Lymphatic: No Symptoms Reported Immunological/Allergic: no symptoms reported Past Byvqnba-Cjfmjz-Oscgob Hx Patient Social History Alcohol Use: Denies Use Alcohol Beverage of Choice: Rum Recreational Drug Use: No Smoking Status: Never a Smoker 2nd Hand Smoke Exposure: No Recent Foreign Travel: No Contact w/Someone Who Travel: No Recent Infectious Disease Expo: No Recent Hopitalizations: Yes (ED VISITS FOR BLOOD SUGAR PROB) Immunizations Up To Date Tetanus Booster (TDap): Unknown PED Vaccines UTD: No Date of Pneumonia Vaccine: Jun 18, 2017 Date of Influenza Vaccine: Aug 08, 2017 Seasonal Allergies Seasonal Allergies: No Past Medical History Surgeries: Yes (RIGHT FOOT SURGERY) Respiratory: No Currently Using CPAP: No Currently Using BIPAP: No Cardiac: Yes (STENTS, MONITOR PLACED BY DR. 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[employer] History: Menopausal Sexually Transmitted Disease: No HIV/AIDS: No Genitourinary: Yes ( KIDNEY DISEASE, recurrent urinary tract infection) Renal Failure Gastrointestinal: No Musculoskeletal: Yes Arthritis Endocrine: Yes Diabetes, Insulin dep HEENT: Yes Cataract Loss of Vision: Denies Hearing Impairment: Hard of Hearing, Bilateral Hearing Aide Cancer: No Psychosocial: No Integumentary: No Blood Disorders: No Adverse Reaction/Blood Tranf: No Family Medical History Alzheimer's disease 19 MOTHER, Arthritis 19 FATHER, 19 MOTHER, G8 BROTHER, G8 BROTHER, G8 BROTHER G8 SISTER G8 SISTER Cardiovascular disease 19 MOTHER, G8 BROTHER, Completed stroke 19 MOTHER, G8 SISTER Hypercholesterolemia 19 FATHER, G8 BROTHER, Hypertension 19 MOTHER, Myocardial infarction 19 FATHER, G8 BROTHER, Heart Disease, Diabetes, Hypertension, Stroke Physical Exam Vital Signs Vital Signs - First Documented 08/16/18 11:49 Temp 99.1 Pulse 72 Resp 16 B/P (MAP) 195/77 (116) Pulse Ox 98 O2 Delivery Room Air Capillary Refill : Less Than 3 Seconds Height, Weight, BMI Height: 5'0" Weight: 113lbs. 8.0oz. 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 as Tested Skin: Normal Color, Warm/Dry Progress/Results/Core Measures Suspected Sepsis Recent Fever Within 48 Hours: No Infection Criteria Present: None New/Unexplained Altered Menta: No Sepsis Screen: No Definite Risk SIRS Temperature:99.1 Pulse: 72 Respiratory Rate: 16 Laboratory Tests 08/16/18 12:37: White Blood Count 8.2 Blood Pressure 195 /77 Mean: 116 Laboratory Tests 08/16/18 12:37: Creatinine 1.10, Platelet Count 434H, Total Bilirubin 0.3 Results/Orders Lab Results Laboratory Tests Test 08/16/18 12:07 08/16/18 12:37 Range/Units Urine Color YELLOW Urine Clarity CLEAR Urine pH 6 5-9 Urine Specific [place] 1.015 L 1.016-1.022 Urine Protein 3+ H NEGATIVE Urine Glucose (UA) 2+ H NEGATIVE Urine Ketones NEGATIVE NEGATIVE Urine Nitrite NEGATIVE NEGATIVE Urine Bilirubin NEGATIVE NEGATIVE Urine Urobilinogen NORMAL NORMAL MG/DL Urine Leukocyte Esterase 2+ H NEGATIVE Urine RBC (Auto) 1+ H NEGATIVE Urine RBC 2-5 H /HPF Urine WBC 10-25 H /HPF Urine Squamous Epithelial Cells 0-2 /HPF Urine Crystals NONE /LPF Urine Bacteria FEW H /HPF Urine Casts NONE /LPF Urine Mucus NEGATIVE /LPF Urine Culture Indicated YES White Blood Count 8.2 4.3-11.0 10^3/uL Red Blood Count 4.51 4.35-5.85 10^6/uL Hemoglobin 13.4 11.5-16.0 G/DL Hematocrit 42 35-52 % Mean Corpuscular Volume 92 80-99 FL Mean Corpuscular Hemoglobin 30 25-34 PG Mean Corpuscular Hemoglobin Concent 32 32-36 G/DL Red Cell Distribution Width 14.0 10.0-14.5 % Platelet Count 434 H 130-400 10^3/uL Mean Platelet Volume 10.7 H 7.4-10.4 FL Neutrophils (%) (Auto) 44 42-75 % Lymphocytes (%) (Auto) 36 12-44 % Monocytes (%) (Auto) 14 H 0-12 % Eosinophils (%) (Auto) 6 0-10 % Basophils (%) (Auto) 1 0-10 % Neutrophils # (Auto) 3.6 1.8-7.8 X 10^3 Lymphocytes # (Auto) 2.9 1.0-4.0 X 10^3 Monocytes # (Auto) 1.1 H 0.0-1.0 X 10^3 Eosinophils # (Auto) 0.5 H 0.0-0.3 10^3/uL Basophils # (Auto) 0.1 0.0-0.1 10^3/uL Sodium Level 138 135-145 MMOL/L Potassium Level 4.3 3.6-5.0 MMOL/L Chloride Level 108 H 98-107 MMOL/L Carbon Dioxide Level 20 L 21-32 MMOL/L Anion Gap 10 5-14 MMOL/L Blood Urea Nitrogen 23 H 7-18 MG/DL Creatinine 1.10 0.60-1.30 MG/DL Estimat Glomerular Filtration Rate 47 BUN/Creatinine Ratio 21 Glucose Level 253 H 70-105 MG/DL Calcium Level 9.9 8.5-10.1 MG/DL Corrected Calcium 10.4 H 8.5-10.1 MG/DL Total Bilirubin 0.3 0.1-1.0 MG/DL Aspartate Amino Transf (AST/SGOT) 15 5-34 U/L Alanine Aminotransferase (ALT/SGPT) 19 0-55 U/L Alkaline Phosphatase 107 40-136 U/L Total Protein 6.3 L 6.4-8.2 GM/DL Albumin 3.4 3.2-4.5 GM/DL TSH [place] Testing 2.73 0.35-4.94 UIU/ML My Orders Orders - BRUNO MCCABE MD Thyroid Analyzer (08/16/18 12:24) Furosemide Tablet (Lasix Tablet) (08/16/18 12:30) Dronedarone Tablet (Multaq Tablet) (08/16/18 13:00) Losartan Tablet (Cozaar Tablet) (08/16/18 12:30) Metoprolol Succinate (Xl) Tab (Toprol Xl (08/16/18 12:30) Apixaban Tablet (Eliquis Tablet) (08/16/18 12:30) Aspirin Enteric Coated Tablet (Ecotrin T (08/16/18 12:30) Amlodipine Tablet (Norvasc Tablet) (08/16/18 14:00) Amlodipine Tablet (Norvasc Tablet) (08/16/18 14:15) Medications Given in ED Current Medications Medications Dose Ordered Sig/Thee Route Start Time Stop Time Status Last Admin Dose Admin Amlodipine Besylate 5 mg ONCE ONCE PO 08/16/18 14:00 08/16/18 14:01 DC 08/16/18 14:16 5 MG Amlodipine Besylate 5 mg ONCE ONCE PO 08/16/18 14:15 08/16/18 14:16 DC 08/16/18 14:17 5 MG Apixaban 5 mg ONCE ONCE PO 08/16/18 12:30 08/16/18 12:33 DC 08/16/18 13:01 5 MG Aspirin 81 mg ONCE ONCE PO 08/16/18 12:30 08/16/18 12:33 DC 08/16/18 13:00 81 MG Dronedarone 400 mg PC ONCE PO 08/16/18 13:00 08/16/18 13:01 DC 08/16/18 13:01 400 MG Furosemide 20 mg ONCE ONCE PO 08/16/18 12:30 08/16/18 12:33 DC 08/16/18 13:01 20 MG Losartan Potassium 100 mg ONCE ONCE PO 08/16/18 12:30 08/16/18 12:33 DC 08/16/18 13:01 100 MG Vital Signs/I&O 08/16/18 08/16/18 11:49 14:28 Temp 99.1 Pulse 72 58 Resp 16 16 B/P (MAP) 195/77 (116) 189/80 (116) Pulse Ox 98 96 O2 Delivery Room Air Room Air Capillary Refill : Less Than 3 Seconds Blood Pressure Mean: 116 Progress Note #1: Time: 13:21 Progress Note Patient seen and examined. I confirmed again that patient has not taken her morning medications. Her morning oral medications were ordered after patient confirmed that she has not taken them. Many of her medications are time sensitive and I did not want to incur any further delay in her therapies. Urinary tract infection still appears present. Renal function appears improved from prior visit based on labs. Progress Note #2: Time: 14:07 Progress Note Patient's blood pressures are improving some. Her last blood pressure was 189/ 80. Blood pressures prior to that were modestly improved as well at 188/86 and 195/66. Patient is still feeling better and ambulated independently and safely to the restroom the last time she got up. She states she feels "a bit wobbly" but no measurable deficits were identified. CT of the head was not performed as patient had no measurable deficits and her vision symptoms had improved prior to arrival. Departure Communication (PCP) Case was discussed with Dr. Sow. She is agreeable with sending the patient home with treatment for UTI. She will do a medication review in the office. Patient has no measurable neurologic deficits and is able to ambulate safely on her own power. Impression Primary Impression: Recurrent urinary tract infection Additional Impressions: Hyperglycemia Hypertensive urgency Chronic renal insufficiency Qualified Codes: N18.9 - Chronic kidney disease, unspecified Vision changes Noncompliance with medications Disposition: HOME, SELF-CARE Condition: Improved Departure-Patient Inst. Decision time for Depature: 14:05 Referrals: JONN SOW MD (PCP/Family) Primary Care Physician Patient Instructions: High Blood Pressure (DC), Urinary Tract Infection, Adult (DC) Add. Discharge Instructions: Please strictly comply with all of your medications to prevent problems with high blood sugar, high blood pressure, etc. Complete your antibiotics as prescribed. Follow-up with Dr. Sow tomorrow or early next week. Bring all of your medications in their original bottles with you for a medication review. Return to the emergency room if you have worsening symptoms. All discharge instructions reviewed with patient and/or family. Voiced understanding. Scripts Cephalexin (Keflex) 500 Mg Capsule 500 MG PO TID, #20 CAP Prov: BRUNO MCCABE MD 08/16/18 Copy Copies To 1: JONN SOW MD, JOSHUA T MD Aug 16, 2018 13:18
[2018-08-16 13:23] LABS: TSH (THYROID ANALYZER) 2.73 UIU/ML (0.35-4.94)
[2018-08-16] MEDS ORDERED: amLODIPine 5 MG (NORVASC) TAB PO ONE ×2 (14:00→14:15)
[2018-08-16] MEDS ORDERED: CEPH-507 PO (14:10)
[2018-08-16 14:28] VITALS: BP 189/80
--- OUTSIDE RECORDS SUMMARY | 2018-08-17 02:54 | XMS REPORT | CCD ---
Author Author [facility] Organization [facility] Address [address] [place] [address] Phone Care Team Providers Care Hand Mounter Name Role Phone PP Unavailable CCM Unavailable Summary Purpose Interface Exchange Insurance Providers Payer name Policy type / Coverage type Covered democrat ID Effective Begin Date Effective End Date WPS Medicare Part B Medicare Part B [id number] Unknown Unknown [employer] Medicare Part B [id number] Unknown Unknown Family history Mother Diagnosis Age [...] Unknown 3 05/04/[address]: [id number] Never smoker 05/04/2015 Alcohol history Unknown occasionally [...] Start Date Stop Date Status Fill Instructions Estevan Marte U-300 Insulin 300 unit/mL (1.5 mL) subcutaneous pen RxNorm: 6568430 25 Unit(s) SQ QHS MANAGED BY DR. JOHNSON 201711/28/2018 Active Norvasc 10 mg tablet RxNorm: 574758 1 Tablet(s) PO daily 201701/25/2019 Active update RX Eliquis 2.5 mg tablet RxNorm: 5073392 Tablet(s) PO TAKE ONE TABLET BY MOUTH TWICE DAILY 06/21/2018 06/15/2019 Active cyclobenzaprine 5 mg tablet RxNorm: 066612 1/2 Tablet(s) PO BID as needed muscle spasms/back pain 05/02/2018 05/31/2018 Inactive Voltaren 1 % topical gel RxNorm: 845451 1 Application TOP QID 04/27/2018 No Stop Date Active tramadol 50 mg tablet RxNorm: 804866 1 Tablet(s) PO TID as needed for pain 04/27/2018 05/01/2018 Inactive acyclovir 400 mg tablet RxNorm: 550785 2 Tablet(s) PO QID 04/2006/20/2018 Inactive mupirocin 2 % topical ointment RxNorm: 471325 1 Application TOP BID 04/20/2018 04/29/2018 Inactive right cheek/nose gentamicin 0.3 % eye drops RxNorm: 842440 2 Drop(s) ophthalmic (eye) left eye Q8 04/16/2018 No Stop Date Active prednisone 20 mg tablet RxNorm: 951558 2 Tablet(s) PO daily 04/12/2018 Inactive prednisone 20 mg tablet RxNorm: 509242 2 Tablet(s) PO daily 04/17/2018 Inactive Kenalog 40 mg/mL suspension for injection RxNorm: 8990791 1 Milliliter(s) Inj 04/12/2018 04/12/2018 Inactive losartan 100 mg tablet RxNorm: 523912 1 Tablet(s) PO QAM 201712/28/2018 Active update RX -dose should be 100mg Norvasc 5 mg tablet RxNorm: 268662 1 Tablet(s) PO daily 201707/29/2018 Inactive update RX losartan 50 mg tablet RxNorm: 060918 TAKE ONE TABLET BY MOUTH ONCE DAILY IN THE MORNING 03/26/2018 04/02/2018 Inactive Humalog U-100 Insulin 100 unit/mL subcutaneous solution RxNorm: 370161 15 Unit(s) SQ AC MANAGED BY DR. JOHNSON 03/13/2018 No Stop Date Active 201- 200 17 units, greater than 300 21 units Toujeo SoloStar U-300 Insulin 300 unit/mL (1.5 mL) subcutaneous pen RxNorm: 5105669 20 Unit(s) SQ QHS MANAGED BY DR. JOHNSON 201707/10/2018 Inactive losartan 100 mg tablet RxNorm: 130699 1 Tablet(s) PO QAM 201704/02/2018 Inactive pantoprazole 40 mg tablet,delayed release RxNorm: 971459 1 Tablet(s) PO daily 01/11/2018 07/19/2018 Inactive carvedilol 12.5 mg tablet RxNorm: 898927 1 Tablet(s) PO BID 07/19/2018 Inactive Toujeo SoloStar U-300 Insulin 300 unit/mL (1.5 mL) subcutaneous pen RxNorm: 3891892 15 Unit(s) SQ QHS MANAGED BY DR. JOHNSON 201703/12/2018 Inactive Multaq 400 mg tablet RxNorm: 567447 1 Tablet(s) PO BID 201712/14/2018 Active potassium chloride ER 10 mEq tablet,extended release RxNorm: 318552 1 Tablet(s) PO daily while on the Lasix 10/18/201701/2018 Inactive losartan 50 mg tablet RxNorm: 319817 1 Tablet(s) PO QAM 201601/17/2018 Inactive Lasix 20 mg tablet RxNorm: 434773 1 Tablet(s) PO daily 201610/03/2017 Inactive potassium chloride ER 10 mEq tablet,extended release RxNorm: 263418 1 Tablet(s) PO daily while on the Lasix 08/30/2017 Inactive Toujeo SoloStar 300 unit/mL (1.5 mL) subcutaneous insulin pen RxNorm: 2084593 35 Unit(s) SQ QHS MANAGED BY DR. JOHNSON 06/15/2017 10/12/2017 Inactive Eliquis 5 mg tablet RxNorm: 2709872 TAKE ONE TABLET BY MOUTH TWICE DAILY 03/01/2017 02/23/2018 Inactive Januvia 100 mg tablet RxNorm: 421851 1/2 Tablet(s) PO daily 07/19/2018 Inactive losartan 50 mg tablet RxNorm: 316195 1 Tablet(s) PO BID 201509/13/2017 Inactive amlodipine 10 mg tablet RxNorm: 260641 1 Tablet(s) PO daily 06/14/2017 Inactive generic for NORVASC losartan 50 mg tablet RxNorm: 895179 1 Tablet(s) PO daily 201508/31/2016 Inactive Toujeo SoloStar 300 unit/mL (1.5 mL) subcutaneous insulin pen RxNorm: 0184098 40 Unit(s) SQ QHS MANAGED BY DR. JOHNSON 07/01/2016 06/14/2017 Inactive Toujeo SoloStar 300 unit/mL (1.5 mL) subcutaneous insulin pen RxNorm: 0740489 35 Unit(s) SQ QHS MANAGED BY DR. JOHNSON 06/02/2016 06/30/2016 Inactive Humalog 100 unit/mL subcutaneous solution RxNorm: 290500 15 Unit(s) SQ AC MANAGED BY DR. JOHNSON 06/02/2016 03/12/2018 Inactive carvedilol 3.125 mg tablet RxNorm: 657418 1 Tablet(s) PO BID 04/23/2016 Inactive simvastatin 40 mg tablet RxNorm: 797539 1 Tablet(s) PO QHS 07/19/2018 Inactive Humalog 100 unit/mL subcutaneous solution RxNorm: 930976 13 Unit(s) SQ AC MANAGED BY DR. JOHNSON 01/26/2016 06/01/2016 Inactive Eliquis 5 mg tablet RxNorm: 7552071 1 Tablet(s) PO BID 201501/13/2017 Inactive carvedilol 6.25 mg tablet RxNorm: 891677 1 Tablet(s) PO BID 2016 Inactive Humalog 100 unit/mL subcutaneous solution RxNorm: 777156 Unit(s) SQ UD as directed by office 08/07/2015 01/25/2016 Inactive Klor-Con 10 mEq tablet,extended release RxNorm: 922516 1 Tablet(s) PO daily as needed 06/26/2015 10/23/2015 Inactive Lasix 20 mg tablet RxNorm: 546689 1 Tablet(s) PO daily as needed 06/26/2015 10/23/2015 Inactive fluticasone 50 mcg/actuation nasal spray,suspension RxNorm: 495429 2 Natalia NASAL daily No Start Date Active metoprolol succinate ER 50 mg tablet,extended release 24 hr RxNorm: 331891 1 Tablet(s) PO daily No Start Date Active aspirin 81 mg capsule,delayed release RxNorm: 661903 1 Capsule(s) PO daily No Start Date Active Novolog U-100 Insulin aspart 100 unit/mL subcutaneous solution RxNorm: 477224 SSI 80-150 10u 151-200 15u 201-300 17u over 300 21u Unit(s) SQ AC & HS as needed No Start Date Active cetirizine 10 mg tablet RxNorm: 8321930 1 Tablet(s) PO daily No Start Date Active atorvastatin 40 mg tablet RxNorm: 904338 1 Tablet(s) PO daily No Start Date Active Culturelle Probiotics 10 billion cell-200 mg capsule RxNorm: 1 Capsule(s) PO TID No Start Date Active losartan 25 mg tablet RxNorm: 947944 1 Tablet(s) PO daily No Start Date 08/31/2016 Inactive losartan 100 mg tablet RxNorm: 289171 1 Tablet(s) PO daily No Start Date 06/30/2016 Inactive gentamicin 0.3 % eye drops RxNorm: 449204 2 Drop(s) ophthalmic (eye) left eye Q8 No Start Date 04/15/2018 Inactive Multaq 400 mg tablet RxNorm: 648678 1 Tablet(s) PO BID No Start Date 12/19/2017 Inactive Klor-Con 10 mEq tablet,extended release RxNorm: 290885 1 Tablet(s) PO daily as needed No Start Date 06/25/2015 Inactive simvastatin 40 mg tablet RxNorm: 040740 1 Tablet(s) PO daily No Start Date 02/04/2016 Inactive carvedilol 6.25 mg tablet RxNorm: 603246 1 Tablet(s) PO BID No Start Date 11/30/2015 Inactive Eliquis 5 mg tablet RxNorm: 4213007 1 Tablet(s) PO BID No Start Date 01/19/2016 Inactive Toujeo SoloStar 300 unit/mL (1.5 mL) subcutaneous insulin pen RxNorm: 0829888 33 Unit(s) SQ QHS MANAGED BY DR. JOHNSON No Start Date 06/01/2016 Inactive Lasix 20 mg tablet RxNorm: 771086 1 Tablet(s) PO daily as needed No Start Date 06/25/2015 Inactive Humalog 100 unit/mL subcutaneous solution RxNorm: 185355 10 Unit(s) SQ TID No Start Date 08/06/2015 Inactive amlodipine 5 mg tablet RxNorm: 092230 1 Tablet(s) PO daily No Start Date 08/31/2016 Inactive Norvasc 2.5 mg tablet RxNorm: 384497 1 Tablet(s) PO daily No Start Date 04/02/2018 Inactive Medication Administered Medication Codes Instructions Start Date Status Kenalog 40 mg/mL suspension for injection RxNorm: 1519515 1Milliliter 04/12/2018 No longer Active Immunizations Vaccine [...] 92.2 fl 05/25/2017 Cbc With Differential Ord2 MCH 31.2 pg 05/25/2017 Cbc With Differential Ord2 Cuming% 8.9 % 05/25/2017 Cbc With Differential Ord2 [...] 3.78 K/ul 05/25/2017 Cbc With Differential Ord2 Cuming ABS# 0.7 K/ul 05/25/2017 Cbc With Differential Ord2 Eos ABS# 0.8 K/ul 05/25/2017 Cbc With Differential Ord2 Baso ABS# 0.3 K/ul 05/25/2017 Manual Differential Ord52 D-Neutr 50 % 05/25/2017 Manual Differential Ord52 D-Lymph 38 % 05/25/2017 Manual Differential Ord52 D-Eos 10 % 05/25/2017 Manual Differential Ord52 D-1 2 NRBC 05/25/2017 Comp Metabolic Kbj169 NA 140 mEq/L 05/25/2017 Comp Metabolic Agg635 K 4.0 mEq/L 05/25/2017 Comp Metabolic Yii884 CL 107 mEq/L 05/25/2017 Comp Metabolic Paj975 CO2 22.0 mEq/L 05/25/2017 Comp Metabolic Euw720 ANION GAP 15 05/25/2017 Comp Metabolic Olr256 GLUCOSE 97 mg/dL 05/25/2017 Comp Metabolic Wlv219 Creat 0.9 mg/dL 05/25/2017 Comp Metabolic Naq709 eGFR 61 ml/min/1.73m2 05/25/2017 Comp Metabolic Jab361 BUN 16 mg/dL 05/25/2017 Comp Metabolic Jho580 B/C Ratio 17.4 Ratio 05/25/2017 Comp Metabolic Fzs500 CALCIUM 9.1 mg/dL 05/25/2017 Comp Metabolic Juo094 ALK PHOS 109 U/L 05/25/2017 Comp Metabolic Sxl193 AST(SGOT) 19 U/L 05/25/2017 Comp Metabolic Lhw482 ALT(SGPT) 17 U/L 05/25/2017 Comp Metabolic Poi136 BILI T 0.4 mg/dL 05/25/2017 Comp Metabolic Hco034 ALBUMIN 3.3 g/dL 05/25/2017 Comp Metabolic Gim309 TPRO 6.0 g/dL 05/25/2017 Comp Metabolic Cde067 GLOB 2.7 g/dL 05/25/2017 Comp Metabolic Jmu128 A/G Ratio 1.2 Ratio 05/25/2017 Comp Metabolic Use441 Osmo 281 mOsmo 05/25/2017 Lipid Ord30 CHOL 204 mg/dL 05/25/2017 Lipid Ord30 HDL 49.0 mg/dl 05/25/2017 Lipid Ord30 TRIG 117 mg/dL 05/25/2017 Lipid Ord30 LDL 132 mg/dL 05/25/2017 Lipid Ord30 C/HDL 4.2 Ratio 05/25/2017 %Hba1C Xvo804 % HbA1c 16566-3 10.5 % 05/25/2017 %Hba1C Nbx389 Gluc Ave 255 mg/dL 05/25/2017 Microalbumin Xiw474 MicroAlb 95.0 mg/dL 05/25/2017 Review of Systems [...] nourished 06/26/2018 None Full Exam - General 1995 Eyes conjunctiva /eyelids Overall: conjunctiva clear 06/26/2018 None Full Exam - General 1994 Eyes conjunctiva /eyelids Overall: cornea clear 06/26/2018 None Full Exam - General 1995 Eyes conjunctiva /eyelids Overall: eyelids normal 06/26/2018 None Full Exam - General 1995 Ears/Nose/Throat lips/teeth/gingiva Overall: benign lips 06/26/2018 None Full Exam - General 1995 Ears/Nose/Throat [...] normal 06/21/2018 None Full Exam - General 1995 Ears/Nose/Throat lips/teeth/gingiva Overall: benign lips 06/21/2018 None [...] Procedures Procedure Codes Date DRAIN/INJECT JOINT/BURSA CPT-4: 08066 04/12/2018 TRIAMCINOLONE ACET INJ NOS CPT-4: J3301 04/12/2018 PPPS, SUBSEQ VISIT CPT -4: G0439 02/22/2018 ADMIN INFLUENZA VIRUS VAC CPT-4: G0008 06/02/2016 FLU VACC PRSV FREE INC ANTIG CPT-4: 74267 06/02/2016 Vital Signs Date Vital 07/17/2018 Blood Pressure 1: 148/62 Code : 8480-6 BMI: 24.9 Code : 11812-1 Heart Rate 1 : 65 bpm Height: 4'8" SpO2: 97% Weight: 111 lbs 06/26/2018 Blood Pressure 1: 118/72 Code : 8480-6 BMI: 25.1 Code : 61425-1 Heart Rate 1 : 58 bpm Height: 4'8" SpO2: 97% Weight: 112 lbs 06/21/2018 Blood Pressure 1: 120/72 Code : 8480-6 BMI: 25.1 Code : 53689-7 Heart Rate 1 : 56 bpm Height: 4'8" SpO2: 96% Weight: 112 lbs 05/02/2018 Blood Pressure 1: 178/76 Code : 8480-6 BMI: 24.7 Code : 46787-8 Heart Rate 1 : 72 bpm Height: 4'8" SpO2: 98% Weight: 110 lbs 04/27/2018 Blood Pressure 1: 164/78 Code : 8480-6 BMI: 24.7 Code : 03612-3 Heart Rate 1 : 69 bpm Height: 4'8" SpO2: 97% Weight: 110 lbs 04/20/2018 Blood Pressure 1: 140/80 Code : 8480-6 BMI: 24.7 Code : 55236-3 Heart Rate 1 : 83 bpm Height: 4'8" SpO2: 97% Weight: 110 lbs 04/12/2018 Blood Pressure 1: 146/78 Code : 8480-6 Heart Rate 1: 68 bpm Height: SpO2: 98% Weight: 04/10/2018 Blood Pressure 1: 146/60 Code : 8480-6 BMI: 24.7 Code : 58702-4 Heart Rate 1 : 60 bpm Height: 4'8" SpO2: 95% Weight: 110 lbs 04/03/2018 Blood Pressure 1: 204/80 Code : 8480-6 BMI: 24.9 Code : 16598-0 Heart Rate 1 : 62 bpm Height: 4'8" SpO2: 98% Weight: 111 lbs 03/13/2018 Blood Pressure 1: 140/68 Code : 8480-6 BMI: 25.6 Code : 53729-4 Heart Rate 1 : 68 bpm Height: 4'8" SpO2: 95% Weight: 114 lbs 02/22/2018 Blood Pressure 1: 166/88 Code : 8480-6 BMI: 24.7 Code : 43745-0 Heart Rate 1 : 72 bpm Height: 4'8" SpO2: 95% Weight: 110 lbs 02/01/2018 Blood Pressure 1: 162/70 Code : 8480-6 BMI: 23.2 Code : 55244-0 Heart Rate 1 : 64 bpm Height: 4'11" SpO2: 95% Weight: 115 lbs 01/18/2018 Blood Pressure 1: 192/86 Code : 8480-6 BMI: 22.6 Code : 17319-8 Heart Rate 1 : 68 bpm Height: 4'11" SpO2: 94% Weight: 112 lbs 12/21/2017 Blood Pressure 1: 110/52 Code : 8480-6 BMI: 23.0 Code : 88950-2 Heart Rate 1 : 58 bpm Height: 4'11" SpO2: 94% Weight: 114 lbs 10/10/2017 Blood Pressure 1: 168/78 Code : 8480-6 BMI: 23.0 Code : 72116-9 Heart Rate 1 : 54 bpm Height: 4'11" SpO2: 98% Weight: 114 lbs 09/07/2017 Blood Pressure 1: 142/72 Code : 8480-6 Heart Rate 1: 84 bpm Height: 4'11" SpO2: 97% Weight: 08/30/2017 Blood Pressure 1: 188/82 Code : 8480-6 BMI: 24.4 Code : 36842-7 Heart Rate 1 : 79 bpm Height: 4'11" SpO2: 88% Temperature: 38.5 (C) / 101.3 (F) Weight: 121 lbs 08/15/2017 Blood Pressure 1: 166/78 Code : 8480-6 BMI: 22.8 Code : 66205-9 Heart Rate 1 : 71 bpm Height: 4'11" SpO2: 96% Weight: 113 lbs 06/15/2017 Blood Pressure 1: 138/68 Code : 8480-6 BMI: 22.8 Code : 80305-9 Heart Rate 1 : 54 bpm Height: 4'11" SpO2: 98% Weight: 113 lbs 05/29/2017 Blood Pressure 1: 96/46 Code : 8480-6 Blood Pressure 2: 116/57 Code: 8480-6 Heart Rate 1: 54 bpm 05/11/2017 Blood Pressure 1: 144/60 Code : 8480-6 BMI: 23.8 Code : 81995-2 Heart Rate 1 : 68 bpm Height: 4'11" SpO2: 97% Weight: 118 lbs 01/05/2017 Blood Pressure 1: 134/72 Code : 8480-6 BMI: 24.8 Code : 64138-4 Heart Rate 1 : 64 bpm Height: 4'11" SpO2: 94% Weight: 123 lbs 09/20/2016 Blood Pressure 1: 148/66 Code : 8480-6 BMI: 25.4 Code : 98308-6 Heart Rate 1 : 68 bpm Height: 4'11" SpO2: 97% Weight: 126 lbs 09/01/2016 Blood Pressure 1: 162/80 Code : 8480-6 BMI: 26.1 Code : 37640-4 Heart Rate 1 : 75 bpm Height: 4'11" SpO2: 95% Weight: 129 lbs 06/02/2016 Blood Pressure 1: 144/82 Code : 8480-6 BMI: 25.4 Code : 00888-5 Heart Rate 1 : 68 bpm Height: 4'11" SpO2: 98% Weight: 126 lbs 03/25/2016 Blood Pressure 1: 140/58 Code : 8480-6 BMI: 25.9 Code : 58061-8 Heart Rate 1 : 58 bpm Height: 4'11" SpO2: 95% Weight: 128 lbs 01/26/2016 Blood Pressure 1: 138/68 Code : 8480-6 BMI: 26.3 Code : 10659-2 Heart Rate 1 : 66 bpm Height: 4'11" SpO2: 96% Weight: 130 lbs 10/29/2015 Blood Pressure 1: 180/78 Code : 8480-6 BMI: 25.7 Code : 29253-5 Heart Rate 1 : 74 bpm Height: 4'11" SpO2: 97% Weight: 127 lbs 07/21/2015 Blood Pressure 1: 136/70 Code : 8480-6 BMI: 25.9 Code : 47362-7 Heart Rate 1 : 63 bpm Height: 4'11" SpO2: 95% Weight: 128 lbs 07/08/2015 Blood Pressure 1: 140/70 Code : 8480-6 BMI: 26.5 Code : 02758-0 Heart Rate 1 : 59 bpm Height: 4'11" SpO2: 94% Weight: 131 lbs 5 oz 05/04/2015 Blood Pressure 1: 140/60 Code : 8480-6 BMI: 25.7 Code : 55677-2 Heart Rate 1 : 60 bpm Height: [...] mellitus with hyperglycemia[ICD10: E11.65] Elizabeth Sow MD, [facility] CPT-4: 32470 07/17/2018 [id number] EST. PATIENT, LEVEL III Diagnosis: Type 2 diabetes mellitus with hyperglycemia[ICD10: E11.65] Diagnosis: Weakness[ICD10: R53.1] Diagnosis: Unsteadiness on feet[ICD10: R26.81] Elizabeth Sow MD, [facility] CPT-4: 47946 06/26/2018 ([id number]) 07396 EST. PATIENT, LEVEL IV Diagnosis: Type 2 diabetes mellitus with hyperglycemia[ICD10: E11.65] Diagnosis: Essential (primary) hypertension[ICD10: I10] Diagnosis: Muscle weakness (generalized)[ICD10: M62.81] Diagnosis: Localized edema[ICD10: R60.0] Kate Sow MD, [facility] CPT- 4: 32864 06/21/2018 ([id number]) 38970 EST. 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 PATIENT, LEVEL III Diagnosis: Low back pain[ICD10: M54.5] Elizabeth Sow MD, [facility] CPT-4 : 59549 04/27/2018 ([id number]) 80231 EST. PATIENT, LEVEL IV Diagnosis: Diplopia[ICD10: H53.2] Diagnosis: Rash and other nonspecific skin eruption[ICD10: R21] Diagnosis: Type 2 diabetes mellitus with hyperglycemia[ICD10: E11.65] Laney Sow MD, [facility] CPT-4: 68914 04/20/2018 ([id number]) 99364 EST. PATIENT, LEVEL III Diagnosis: Low back pain[ICD10: M54.5] Elizabeth Sow MD [facility] CPT-4 : 24936 04/12/2018 ([id number]) 13537 EST. PATIENT, LEVEL III Diagnosis: Essential (primary) hypertension[ICD10: I10] Diagnosis: Type 2 diabetes mellitus with hyperglycemia[ICD10: E11.65] Kate Sow MD , [facility] CPT-4: 39701 04/10/2018 ([id number]) 03779 EST. PATIENT, LEVEL III Diagnosis: Lumbago with sciatica, left side[ICD10: M54.42] Diagnosis: Essential (primary) hypertension[ICD10: I10] Laney Sow MD, [facility] CPT-4: 10283 04/03/2018 ([id number]) 47615 EST. PATIENT, LEVEL IV Diagnosis: Type 2 diabetes mellitus with hyperglycemia[ICD10: E11.65] Diagnosis: Essential (primary) hypertension[ICD10: I10] Kate Sow MD, [facility] CPT-4: 74076 03/13/2018 ([id number]) 28430 EST. PATIENT, LEVEL IV Diagnosis: Essential (primary) hypertension[ICD10: I10] Diagnosis: Type 2 diabetes mellitus with hyperglycemia[ICD10: E11.65] Kate Sow MD , [facility] CPT-4: 01144 02/01/2018 ([id number]) 78190 EST. PATIENT, LEVEL IV Diagnosis: Type 2 diabetes mellitus with hyperglycemia[ICD10: E11.65] Diagnosis: Essential (primary) hypertension[ICD10: I10] Kate Sow MD, [facility] CPT-4: 52238 01/18/2018 ([id number]) Miscellaneous no charge Diagnosis: Type 2 diabetes mellitus with hyperglycemia[ICD10: E11.65] Elizabeth Sow MD, [facility] CPT-4: 43218 12/22/2017 ([id number]) 92819 EST. PATIENT, LEVEL IV Diagnosis: Type 2 diabetes mellitus with hyperglycemia[ICD10: E11.65] Diagnosis: Essential (primary) hypertension[ICD10: I10] Diagnosis: Muscle weakness (generalized)[ICD10: M62.81] Kate Sow MD, [facility] CPT-4: 61007 12/21/2017 90439 EST. PATIENT, LEVEL IV Diagnosis: Type 2 diabetes mellitus without complications[ICD10: E11.9] Diagnosis: Mixed hyperlipidemia[ICD10: E78.2] Diagnosis: Essential (primary) hypertension[ICD10: I10] Elizabeth Sow MD, [facility] CPT-4: 80902 10/10/2017 87780 EST. PATIENT, LEVEL III Diagnosis: Weakness[ICD10: R53.1] Diagnosis: Essential (primary) hypertension[ICD10: I10] Elizabeth Sow MD, [facility] CPT-4: 73876 09/07/2017 23198 EST. PATIENT, LEVEL III Diagnosis: Encounter for follow-up examination after completed treatment for conditions other than malignant neoplasm[ICD10: Z09] Diagnosis: Weakness[ICD10: R53.1] Diagnosis: Essential (primary) hypertension[ICD10: I10] Diagnosis: Dyspnea, unspecified[ICD10: R06.00] Diagnosis: Unsteadiness on feet[ICD10: R26.81] Elizabeth Sow MD, [facility] CPT-4: 71365 08/30/2017 ([id number]) 41284 EST. PATIENT, LEVEL IV Diagnosis: Type 2 diabetes mellitus without complications[ICD10: E11.9] Diagnosis: Essential (primary) hypertension[ICD10: I10] Kate Sow MD, [facility] CPT-4: 06700 08/15/2017 ([id number]) 85306 EST. PATIENT, LEVEL IV Diagnosis: Type 2 diabetes mellitus without complications[ICD10: E11.9] Diagnosis: Essential (primary) hypertension[ICD10: I10] Diagnosis: Unsteadiness on feet[ICD10: R26.81] Kate Sow MD, [facility] CPT-4: 33880 06/15/2017 ([id number]) Miscellaneous no charge Diagnosis: Essential (primary) hypertension[ICD10: I10] Laney Sow MD, [facility] CPT-4: 35441 05/29/2017 ([id number]) 72359 EST. PATIENT, LEVEL IV Diagnosis: Type 2 diabetes mellitus without complications[ICD10: E11.9] Diagnosis: Essential (primary) hypertension[ICD10: I10] Diagnosis: Mixed hyperlipidemia[ICD10: E78.2] Kate Sow MD, [facility] CPT-4: 95020 05/11/2017 ([id number]) 61866 EST. PATIENT, LEVEL IV Diagnosis: Type 2 diabetes mellitus without complications[ICD10: E11.9] Diagnosis: Essential (primary) hypertension[ICD10: I10] Kate Sow MD, [facility] CPT-4: 58342 01/05/2017 ([id number]) 19131 EST. PATIENT, LEVEL III Diagnosis: Essential (primary) hypertension[ICD10: I10] Kate Sow MD, [facility] CPT-4: 79046 09/20/2016 ([id number]) 31624 EST. PATIENT, LEVEL III Diagnosis: Essential (primary) hypertension[ICD10: I10] Laney Sow MD, [facility] CPT-4: 65805 09/01/2016 ([id number]) Miscellaneous no charge Diagnosis: Impacted cerumen, right ear[ICD10: H61.21] Elizabeth Sow MD, [facility] CPT-4: 81818 06/08/2016 ([id number]) 77233 EST. PATIENT, LEVEL IV Diagnosis: Type 2 diabetes mellitus without complications[ICD10: E11.9] Diagnosis: Essential (primary) hypertension[ICD10: I10] Diagnosis: Encounter for immunization[ICD10: Z23] Kate Sow MD, [facility] CPT-4: 90734 06/02/2016 06341 EST. PATIENT, LEVEL III Diagnosis: Essential (primary) hypertension[ICD10: I10] Diagnosis: Other specified cardiac arrhythmias[ICD10: I49.8] Elizabeth Sow MD, [facility] CPT-4: 69669 03/25/2016 ([id number]) 58316 EST. PATIENT, LEVEL IV Diagnosis: Type 2 diabetes mellitus without complications[ICD10: E11.9] Diagnosis: Essential (primary) hypertension[ICD10: I10] Kate Sow MD, [facility] CPT-4: 02329 01/26/2016 ([id number]) 57725 EST. PATIENT, LEVEL IV Diagnosis: Essential (primary) hypertension[ICD10: I10] Diagnosis: Type 2 diabetes mellitus without complications[ICD10: E11.9] Kate Sow MD, [facility] CPT-4: 26939 10/29/2015 ([id number]) 34966 EST. PATIENT, LEVEL IV Diagnosis: Essential (primary) hypertension[ICD10: I10] Diagnosis: Dyspnea, unspecified[ICD10: R06.00] Kate Sow MD, [facility] CPT-4: 55811 07/21/2015 ([id number]) 78125 EST. PATIENT, LEVEL III Diagnosis: Edema, unspecified[ICD10: R60.9] Kate Sow MD, [facility] CPT-4: 47324 07/08/2015 ([id number]) OFFICE VISIT, NEW - LEVEL 4 Diagnosis: ESSENTIAL HYPERTENSION[ICD9: 401.9] Diagnosis: DIABETES TYPE II[ICD9: 250.00] Kate Sow MD, [facility] CPT- 4: 90463 05/04/2015 Plan of Care Planned Activity Notes [...] glucose control. 07/17/2018 Appointment: Elizabeth Milner WPtel: [address] [place], [place] [id number] (15 min) [facility] 07/17/2018 Patient Education: Patient Medication Summary Completed [...] glucose control. 06/26/2018 [facility] [phone] [facility] ([facility] min[facility] Moderate 06/26/2018 Patient Education: Patient Medication Summary Completed 06/26/2018 Patient Education: Diabetes Completed 06/26/2018 Visit Plan: Diabetes [facility] - discussed with patient and her daughte [...] Assisted Living. 06/21/2018 [facility] [phone] [facility] ([facility] min) Moderate 06/21/2018 Patient Education: Patient Medication Summary Completed 06/21/2018 Patient Education: Diabetes Completed 06/21/2018 [facility]ment: [facility] [phone] [facility] [place] (15 min) Moderate 05/09/2018 Visit [...] better. 05/02/2018 Appointment: Kate Sow WPtel: [phone] [facility] (15 min) Moderate 05/02/2018 Patient Education: Patient Medication Summary Completed 05/02/2018 Care Plan: X-RAY EXAM L-S SPINE 10/21 S LOINC : 15652-0 Pending 05/02/2018 Visit Plan: Low back pain- the patient was instructed in appropriate posture - The pt is to use prn antiinflammatories to manage acute pain. The patient is to call the office if the pain is worsening or does not improve. 04/27/2018 Appointment: [facility] [phone] [facility] [place] (15 min) Moderate 04/27/2018 Patient Education: Patient Medication Summary Completed 04/27/2018 Visit Plan: Double vision-suspect due to elevated blood sugars -recommend patient bring in log of blood sugars to next appt -notify bottle label inspector of elevated readings and watch diet closely -also recommend f/u with eye doctor Rash-suspect shingles-rx for acyclovir provided and instructed on use 04/20/2018 Appointment: Laney Mcmillan WPtel: [phone] [phone] [place] (15 min) Moderate 04/20/2018 Patient Education: [...] they worsen. 04/12/2018 Appointment: Elizabeth Milner WPtel: [phone] [facility] (15 min) Moderate 04/12/2018 Patient Education: Patient [...] less controlled. 04/10/2018 App[facility]ment: [facility] [phone] [facility] (15 min) Moderate 04/10/2018 Patient Education: Patient [...] acute concerns. 04/03/2018 [id number] [place] (15 min) Moderate 04/03/2018 [facility] [place] ([facility] Moderate 02/01/2018 Patient Education: [...] 100mg daily. 01/18/2018 Appointment: [facility]el[facility] [phone] [place] [facility] [place] (15 min) Moderate 01/18/2018 Patient Education: Patient Medication Summary Completed 01/18/2018 Appointment: Kate Sow WPtel: [phone] [place] [...] - physical therapy at [facility] 12/21/2017 Appointment: [facility]ow [facility]Ptel[facility] [phone] [place] [facility] [place] (15 min) Moderate 12/21/2017 Patient Education: Patient Medication Summary Completed 12/21/2017 Appointment: [facility] Sow [facility]Ptel: [phone] [facility] [facility] [place] (15 min) Moderate 12/13/2017 Visit [...] control. 10/10/2017 [facility]ment: [phone] ([facility] min) Moderate 10/10/2017 Patient Education: [...] at home. 09/07/2017 Appointment: [phone] (30 min) Complex 09/07/2017 Patient Education: Patient Medication Summary Completed 09/07/2017 Appointment: Kate Sow WPtel: [phone] [facility] (15 min) Moderate 09/05/2017 Visit Plan: Hospital follow up - Dr. Sow in to see pt - pt was in the hospital with uncontrolled hypertension and a. fib - controlled at this time - persistent weakness requiring ongoing PT and assistance with some ADLs and medication management - will admit pt to residential facility for ongoing rehabilitation. 08/30/2017 Appointment: Elizabeth Milner WPtel: [phone] [facility] (30 min) Complex 08/30/2017 Patient Education: Patient Medication Summary Completed 08/30/2017 Appointment: Elizabeth Milner WPtel: [phone] [facility] (15 min) Moderate 08/29/2017 Visit Plan: Diabetes [...] home. 08/15/2017 Appointment: Kate Sow WPtel: [phone] [facility] [place] (15 min) Moderate 08/15/2017 Patient Education: Patient Medication Summary Completed 08/15/2017 Care Plan: %Hba1C LOINC : 08755-1 Cancelled 08/15/2017 Referral: Kar[facility] physical therapy WPtel: [phone] [facility] Patient's informed. Completed 06/26/2017 Visit Plan: Diabetes [...] at home. 06/15/2017 Appointment: Kate Sow WPtel[facility] [phone] [place] [facility] (15 min) Moderate 06/15/2017 Patient Education: Patient Medication Summary Completed 06/15/2017 Care Plan: Referral Order SNOMED-CT : [id number] Pending 06/15/2017 Appointment: Nurse Visit 05/29/2017 Patient [...] and come in here or go to [facility] or [facility] to get this set of labs done. [...] with Statin 05/11/2017 Appointment: Kate Sow WPtel: [phone] [facility] (15 min) Moderate 05/11/2017 Patient Education: [...] pill daily. 01/05/2017 Appointment: Kate Sow WPtel: [phone] [facility] [facility] (15 min) Moderate [...] at home. 09/20/2016 Appointment: Kate Sow WPtel: [phone] [facility] (30 min) Complex 09/20/2016 Patient Education: [...] concerns. 09/01/2016 Appointment: Laney Mcmillan WPtel: [phone] [phone] [place] (30 min) Complex 09/01/2016 Patient Education: Patient Medication Summary Completed 09/01/2016 Appointment: Kate Sow WPtel: [phone] [facility] (15 min) Moderate 08/31/2016 Appointment: Nurse Visit [...] less controlled. 06/02/2016 Appointment: Kate Sow WPtel: [facility] (15 min) Moderate 06/02/2016 Patient Education: Patient Medication Summary Completed 06/02/2016 Patient Education: Hypertension Completed 06/02/2016 Visit Plan: Bradycardia - reports pt has brought in indicates that the pt has been having a pulse in the 40s-50s. Will adjust medications, pt is to notify clinic if her symptoms do not improve, or with any concerns. 03/25/2016 Appointment: Laney Mcmillan WPtel: [facility] [place] [phone] (10 min) Simple 03/25/2016 Patient Education: Patient [...] DM - managed by Dr. Johnson from [place] 01/26/2016 Patient Education: Patient Medication Summary Completed 01/26/2016 Patient Education: Hypertension Completed 01/26/2016 Appointment: Laney Mcmillan WPtel: [phone] (30 min) Complex 12/31/2015 Visit Plan: Hypertension [...] less controlled. 10/29/2015 Appointment: Kate Sow WPtel: [address] [place], [place] [phone] (15 min) Moderate 10/29/2015 Patient Education: Patient Medication Summary Completed 10/29/2015 Patient Education: Hypertension Completed 10/29/2015 Appointment: Kate Sow WPtel: [address] [place], [place] [phone] [place] (15 min) Moderate 09/14/2015 Visit Plan: [...] today, as soon as you get to [place], monday morning, then start taking the lasix [...] handout Begin using muscle rub on back (Reed balm) 05/04/2015 Appointment: Kate Sow WPtel: [phone] [place] [facility] [place] (S) New Patient 05/04/2015 Patient Education: Patient Medication Summary Completed 05/04/2015 Patient Education: Hypertension Completed 05/04/2015 Referral: [phone] [place] Referral Appointment Requested Instructions Comment see if Dr. Johnson has the toujeo samples for you - if not , go to the pharmacy to moss picker the toujeo script. if the toujeo [...] glucose control. Gait Instability - [facility]. Hypertension [...] greater blood glucose control. Appt with Dr Richmodn for eye exam start acyclovir four times daily mupirocin ointment to rash on face -don't use on eye/eyelids -continue the eye drops you already have . Double vision-suspect due to elevated blood sugars -recommend patient bring in log of blood sugars to next appt -notify bottle label inspector of elevated readings and watch diet [...] medication management - will admit pt to residential facility for ongoing rehabilitation. . Bradycardia - [...] DM - managed by Dr. Johnson from [place] . Low back pain- the patient was [...] . [facility] - discussed with patient and her hirale [...] handout Begin using muscle rub on back (Reed balm) Begin taking Lasix again No blood [...] handout Begin using muscle rub on back (Reed balm)
[2018-08-28] MEDS ORDERED: INSU100I14 SC (10:18)
== END 2018-08-16 14:28 | disposition home or self-care (01) ==
LOC: EDUNIT# 11:49 → ER 11:50
DX: N39.0 Urinary tract infection, site not specified (principal); E11.65 Type 2 diabetes mellitus with hyperglycemia; E11.22 Type 2 diabetes mellitus with diabetic chronic kidney disease; I12.9 Hypertensive chronic kidney disease with stage 1 through stage 4 chronic kidney disease, or unspecified chronic kidney disease; N18.9 Chronic kidney disease, unspecified; H53.8 Other visual disturbances; I16.0 Hypertensive urgency; I48.91 Unspecified atrial fibrillation; I25.2 Old myocardial infarction; I10 Essential (primary) hypertension; E11.59 Type 2 diabetes mellitus with other circulatory complications; I73.9 Peripheral vascular disease, unspecified; Z82.49 Family history of ischemic heart disease and other diseases of the circulatory system; Z86.73 Personal history of transient ischemic attack (TIA), and cerebral infarction without residual deficits; Z79.01 Long term (current) use of anticoagulants; Z79.82 Long term (current) use of aspirin; Z79.4 Long term (current) use of insulin; Z91.14 Patient's other noncompliance with medication regimen; Z95.5 Presence of coronary angioplasty implant and graft
CPT/HCPCS: 36415; 80053; 81000; 84443; 85025; 87077; 87088; 87186

== ENCOUNTER 2018-08-21 03:18 | Inpatient (IN) | payer MEDICARE, OTHER ==
[2018-08-21] VITALS (9 sets, daily range): BP systolic 143–161; BP diastolic 56–73
[~2018-08-21] VITALS: Ht 152.4 cm; Wt 50.7 kg
--- OUTSIDE RECORDS SUMMARY | 2018-08-21 03:27 | XMS REPORT | CCD ---
Author Author [facility] Organization [facility] Address [address] [place] [address] Phone Care Team Providers Care Industrial Psychology Professor Name Role Phone PP Unavailable CCM Unavailable Summary Purpose Interface Exchange Insurance Providers Payer name Policy type / Coverage type Covered constitution party ID Effective Begin Date Effective End Date WPS Medicare Part B Medicare Part B [id number] Unknown Unknown [employer] Medicare Part B [id number] Unknown Unknown Family history Mother Diagnosis Age [...] Unknown 3 05/04/[address]: 866782331 Never smoker 05/04/2015 Alcohol history Unknown occasionally drinks alcohol 05/04/2015 Allergies, Adverse Reactions, Alerts Substance Reaction Codes Entered Date Inactivated Date Status * NO KNOWN DRUG ALLERGIES Unknown 07/08/2015 No Inactive Date Active Past Medical History Illness Codes Condition Status Onset Date Resolved Date Essential (primary) hypertension ICD-9: 401.1 ICD-10: I10 Active 09/20/2016 Unknown Muscle weakness (generalized) ICD-9: 728.87 ICD-10: M62.81 Active 12/21/2017 Unknown Type 2 diabetes mellitus without complications ICD-9: 250.00 ICD-10: E11.9 Active 05/03/2015 Unknown Type 2 diabetes mellitus with hyperglycemia ICD-9: 250.02 ICD-10: E11.65 Active 12/21/2017 Unknown Unsteadiness on feet ICD-9: 781.2 ICD-10: R26.81 Active 06/15/2017 Unknown Weakness ICD-9: 780.79 ICD-10: R53.1 Active 08/30/2017 Unknown Localized edema ICD-9 : 782.3 ICD-10: R60.0 Active 06/21/2018 Unknown Intervertebral disc disorders with radiculopathy, lumbar [...] ICD-9: 272.2 ICD-10: E78.2 Active 05/11/2017 Unknown Essential (primary) hypertension ICD-9: 401.9 ICD-10: [...] hypertension ICD-9: 401.1 ICD-10: I10 09/20/2016 Active Muscle weakness (generalized) ICD-9: 728.87 ICD-10: M62.81 12/21/2017 Active Type 2 diabetes mellitus without complications ICD-9: 250.00 ICD-10: E11.9 05/03/2015 Active Type 2 diabetes mellitus with hyperglycemia ICD-9: 250.02 ICD-10: E11.65 12/21/2017 Active Unsteadiness on feet ICD-9: 781.2 ICD-10: R26.81 06/15/2017 Active Weakness ICD-9: 780.79 ICD-10: R53.1 08/30/2017 Active Localized edema ICD-9 : 782.3 ICD-10: R60.0 06/21/2018 Active Intervertebral disc disorders with radiculopathy, lumbar [...] hyperlipidemia ICD-9: 272.2 ICD-10: E78.2 05/11/2017 Active Essential (primary) hypertension ICD-9: 401.9 ICD-10: [...] Start Date Stop Date Status Fill Instructions Levaquin 250 mg tablet RxNorm: 296276 2 tabs on 1st day then 1 tab day 2-7 Tablet( s) PO daily 08/20/2018 08/26/2018 Active dc keflex Levaquin 250 mg tablet RxNorm: 369332 2 tabs on 1st day then 1 tab day 2-7 Tablet( s) PO daily 08/20/2018 08/19/2018 Inactive dc keflex Keflex 500 mg capsule RxNorm: 250851 1 Capsule(s) PO TID 201708/19/2018 Inactive Estevan Marte U-300 Insulin 300 unit/mL (1.5 mL) subcutaneous pen RxNorm: 5458487 25 Unit(s) SQ QHS MANAGED BY DR. JOHNSON 201711/28/2018 Active Norvasc 10 mg tablet RxNorm: 046639 1 Tablet(s) PO daily 201701/25/2019 Active update RX Eliquis 2.5 mg tablet RxNorm: 7034766 Tablet(s) PO TAKE ONE TABLET BY MOUTH TWICE DAILY 06/21/2018 06/15/2019 Active cyclobenzaprine 5 mg tablet RxNorm: 076766 1/2 Tablet(s) PO BID as needed muscle spasms/back pain 05/02/2018 05/31/2018 Inactive Voltaren 1 % topical gel RxNorm: 823577 1 Application TOP QID 04/27/2018 No Stop Date Active tramadol 50 mg tablet RxNorm: 909631 1 Tablet(s) PO TID as needed for pain 04/27/2018 05/01/2018 Inactive acyclovir 400 mg tablet RxNorm: 630319 2 Tablet(s) PO QID 04/2006/20/2018 Inactive mupirocin 2 % topical ointment RxNorm: 137842 1 Application TOP BID 04/20/2018 04/29/2018 Inactive right cheek/nose gentamicin 0.3 % eye drops RxNorm: 687347 2 Drop(s) ophthalmic (eye) left eye Q8 04/16/2018 No Stop Date Active prednisone 20 mg tablet RxNorm: 415897 2 Tablet(s) PO daily 04/12/2018 Inactive prednisone 20 mg tablet RxNorm: 477474 2 Tablet(s) PO daily 04/17/2018 Inactive Kenalog 40 mg/mL suspension for injection RxNorm: 3403893 1 Milliliter(s) Inj 04/12/2018 04/12/2018 Inactive losartan 100 mg tablet RxNorm: 279965 1 Tablet(s) PO QAM 201712/28/2018 Active update RX -dose should be 100mg Norvasc 5 mg tablet RxNorm: 372917 1 Tablet(s) PO daily 201707/29/2018 Inactive update RX losartan 50 mg tablet RxNorm: 734847 TAKE ONE TABLET BY MOUTH ONCE DAILY IN THE MORNING 03/26/2018 04/02/2018 Inactive Humalog U-100 Insulin 100 unit/mL subcutaneous solution RxNorm: 618565 15 Unit(s) SQ AC MANAGED BY DR. JOHNSON 03/13/2018 No Stop Date Active 201- 200 17 units, greater than 300 21 units Toujeo SoloStar U-300 Insulin 300 unit/mL (1.5 mL) subcutaneous pen RxNorm: 1267586 20 Unit(s) SQ QHS MANAGED BY DR. JOHNSON 201707/10/2018 Inactive losartan 100 mg tablet RxNorm: 352136 1 Tablet(s) PO QAM 201704/02/2018 Inactive pantoprazole 40 mg tablet,delayed release RxNorm: 830086 1 Tablet(s) PO daily 01/11/2018 07/19/2018 Inactive carvedilol 12.5 mg tablet RxNorm: 439672 1 Tablet(s) PO BID 07/19/2018 Inactive Toujeo SoloStar U-300 Insulin 300 unit/mL (1.5 mL) subcutaneous pen RxNorm: 4230287 15 Unit(s) SQ QHS MANAGED BY DR. JOHNSON 201703/12/2018 Inactive Multaq 400 mg tablet RxNorm: 626520 1 Tablet(s) PO BID 201712/14/2018 Active potassium chloride ER 10 mEq tablet,extended release RxNorm: 854026 1 Tablet(s) PO daily while on the Lasix 10/18/201701/2018 Inactive losartan 50 mg tablet RxNorm: 689091 1 Tablet(s) PO QAM 201601/17/2018 Inactive Lasix 20 mg tablet RxNorm: 557246 1 Tablet(s) PO daily 201610/03/2017 Inactive potassium chloride ER 10 mEq tablet,extended release RxNorm: 534495 1 Tablet(s) PO daily while on the Lasix 08/30/2017 Inactive Toujeo SoloStar 300 unit/mL (1.5 mL) subcutaneous insulin pen RxNorm: 2098968 35 Unit(s) SQ QHS MANAGED BY DR. JOHNSON 06/15/2017 10/12/2017 Inactive Eliquis 5 mg tablet RxNorm: 7762761 TAKE ONE TABLET BY MOUTH TWICE DAILY 03/01/2017 02/23/2018 Inactive Januvia 100 mg tablet RxNorm: 329250 1/2 Tablet(s) PO daily 07/19/2018 Inactive losartan 50 mg tablet RxNorm: 240179 1 Tablet(s) PO BID 201509/13/2017 Inactive amlodipine 10 mg tablet RxNorm: 956853 1 Tablet(s) PO daily 06/14/2017 Inactive generic for NORVASC losartan 50 mg tablet RxNorm: 652704 1 Tablet(s) PO daily 201508/31/2016 Inactive Toujeo SoloStar 300 unit/mL (1.5 mL) subcutaneous insulin pen RxNorm: 0832666 40 Unit(s) SQ QHS MANAGED BY DR. JOHNSON 07/01/2016 06/14/2017 Inactive Toujeo SoloStar 300 unit/mL (1.5 mL) subcutaneous insulin pen RxNorm: 5887611 35 Unit(s) SQ QHS MANAGED BY DR. JOHNSON 06/02/2016 06/30/2016 Inactive Humalog 100 unit/mL subcutaneous solution RxNorm: 972893 15 Unit(s) SQ AC MANAGED BY DR. JOHNSON 06/02/2016 03/12/2018 Inactive carvedilol 3.125 mg tablet RxNorm: 442857 1 Tablet(s) PO BID 04/23/2016 Inactive simvastatin 40 mg tablet RxNorm: 385889 1 Tablet(s) PO QHS 07/19/2018 Inactive Humalog 100 unit/mL subcutaneous solution RxNorm: 347030 13 Unit(s) SQ AC MANAGED BY DR. JOHNSON 01/26/2016 06/01/2016 Inactive Eliquis 5 mg tablet RxNorm: 8501687 1 Tablet(s) PO BID 201501/13/2017 Inactive carvedilol 6.25 mg tablet RxNorm: 483516 1 Tablet(s) PO BID 2016 Inactive Humalog 100 unit/mL subcutaneous solution RxNorm: 730094 Unit(s) SQ UD as directed by office 08/07/2015 01/25/2016 Inactive Klor-Con 10 mEq tablet,extended release RxNorm: 631765 1 Tablet(s) PO daily as needed 06/26/2015 10/23/2015 Inactive Lasix 20 mg tablet RxNorm: 567057 1 Tablet(s) PO daily as needed 06/26/2015 10/23/2015 Inactive fluticasone 50 mcg/actuation nasal spray,suspension RxNorm: 153124 2 Bland NASAL daily No Start Date Active metoprolol succinate ER 50 mg tablet,extended release 24 hr RxNorm: 014305 1 Tablet(s) PO daily No Start Date Active aspirin 81 mg capsule,delayed release RxNorm: 946428 1 Capsule(s) PO daily No Start Date Active Novolog U-100 Insulin aspart 100 unit/mL subcutaneous solution RxNorm: 241001 SSI 80-150 10u 151-200 15u 201-300 17u over 300 21u Unit(s) SQ AC & HS as needed No Start Date Active cetirizine 10 mg tablet RxNorm: 9065881 1 Tablet(s) PO daily No Start Date Active atorvastatin 40 mg tablet RxNorm: 320221 1 Tablet(s) PO daily No Start Date Active Culturelle Probiotics 10 billion cell-200 mg capsule RxNorm: 1 Capsule(s) PO TID No Start Date Active losartan 25 mg tablet RxNorm: 050114 1 Tablet(s) PO daily No Start Date 08/31/2016 Inactive losartan 100 mg tablet RxNorm: 013043 1 Tablet(s) PO daily No Start Date 06/30/2016 Inactive gentamicin 0.3 % eye drops RxNorm: 250670 2 Drop(s) ophthalmic (eye) left eye Q8 No Start Date 04/15/2018 Inactive Multaq 400 mg tablet RxNorm: 531737 1 Tablet(s) PO BID No Start Date 12/19/2017 Inactive Klor-Con 10 mEq tablet,extended release RxNorm: 813561 1 Tablet(s) PO daily as needed No Start Date 06/25/2015 Inactive simvastatin 40 mg tablet RxNorm: 719491 1 Tablet(s) PO daily No Start Date 02/04/2016 Inactive carvedilol 6.25 mg tablet RxNorm: 165443 1 Tablet(s) PO BID No Start Date 11/30/2015 Inactive Eliquis 5 mg tablet RxNorm: 1091279 1 Tablet(s) PO BID No Start Date 01/19/2016 Inactive Toujeo SoloStar 300 unit/mL (1.5 mL) subcutaneous insulin pen RxNorm: 9306977 33 Unit(s) SQ QHS MANAGED BY DR. JOHNSON No Start Date 06/01/2016 Inactive Lasix 20 mg tablet RxNorm: 265581 1 Tablet(s) PO daily as needed No Start Date 06/25/2015 Inactive Humalog 100 unit/mL subcutaneous solution RxNorm: 353607 10 Unit(s) SQ TID No Start Date 08/06/2015 Inactive amlodipine 5 mg tablet RxNorm: 607461 1 Tablet(s) PO daily No Start Date 08/31/2016 Inactive Norvasc 2.5 mg tablet RxNorm: 375872 1 Tablet(s) PO daily No Start Date 04/02/2018 Inactive Medication Administered Medication Codes Instructions Start Date Status Kenalog 40 mg/mL suspension for injection RxNorm: 7142490 1Milliliter 04/12/2018 No longer Active Immunizations Vaccine Codes Date Status Influenza CVX: 141 06/02/2016 completed Influenza CVX: 141 07/17/2015 completed Influenza CVX: 141 06/18/2014 completed Pneumococcal CVX: 33 06/18/2014 completed Assessments Condition Codes Effective Dates Type 2 diabetes mellitus without complications ICD-10: E11.9 ICD-9: 250.00 08/08/2018 Essential (primary) hypertension ICD-10: I10 ICD-9: 401.1 08/08/2018 Type 2 diabetes mellitus with hyperglycemia ICD-10: E11.65 ICD-9: 250.02 07/17/2018 Weakness ICD-10: R53.1 ICD-9: 780.79 06/26/2018 Unsteadiness on feet ICD-10: R26.81 ICD-9: 781.2 06/26/2018 Localized edema ICD-10: R60.0 ICD-9: 782.3 06/21/2018 Muscle weakness (generalized) ICD-10: M62.81 ICD-9: 728.87 06/21/2018 Intervertebral disc disorders with radiculopathy, lumbar [...] Mixed hyperlipidemia ICD-10: E78.2 ICD-9: 272.2 10/10/2017 Essential (primary) hypertension ICD-10: I10 ICD-9: [...] For Visit Effective Dates Notes diabetes mellitus 08/08/2018 diabetes mellitus 07/17/2018 diabetes mellitus 06/26/2018 diabetes [...] 14.4 g/dl 05/25/2017 Cbc With Differential Ord2 HCT 42.6 % 05/25/2017 Cbc With Differential Ord2 Neut% 32.1 % 05/25/2017 Cbc With Differential Ord2 Lymph% 45.7 % 05/25/2017 Cbc With Differential Ord2 MCV 92.2 fl 05/25/2017 Cbc With Differential Ord2 MCH 31.2 pg 05/25/2017 Cbc With Differential Ord2 Cascade% 8.9 % 05/25/2017 Cbc With Differential Ord2 MCHC 33.8 pg 05/25/2017 Cbc With Differential Ord2 Eos% 9.7 % 05/25/2017 Cbc With Differential Ord2 Baso% 3.6 % 05/25/2017 Cbc With Differential Ord2 PLT 493 K/ul 05/25/2017 Cbc With Differential Ord2 RDW 16.3 % 05/25/2017 Cbc With Differential Ord2 Neut ABS# 2.65 K/ul 05/25/2017 Cbc With Differential Ord2 Lymph ABS# 3.78 K/ul 05/25/2017 Cbc With Differential Ord2 Cascade ABS# 0.7 K/ul 05/25/2017 Cbc With Differential Ord2 Eos ABS# 0.8 K/ul 05/25/2017 Cbc With Differential Ord2 Baso ABS# 0.3 K/ul 05/25/2017 Manual Differential Ord52 D-Neutr 50 % 05/25/2017 Manual Differential Ord52 D-Lymph 38 % 05/25/2017 Manual Differential Ord52 D-Eos 10 % 05/25/2017 Manual Differential Ord52 D-1 2 NRBC 05/25/2017 Comp Metabolic Kzu711 NA 140 mEq/L 05/25/2017 Comp Metabolic Goa297 K 4.0 mEq/L 05/25/2017 Comp Metabolic Htr877 CL 107 mEq/L 05/25/2017 Comp Metabolic Tig711 CO2 22.0 mEq/L 05/25/2017 Comp Metabolic Yqd669 ANION GAP 15 05/25/2017 Comp Metabolic Mgw269 GLUCOSE 97 mg/dL 05/25/2017 Comp Metabolic Yjo100 Creat 0.9 mg/dL 05/25/2017 Comp Metabolic Cem216 eGFR 61 ml/min/1.73m2 05/25/2017 Comp Metabolic Hdj069 BUN 16 mg/dL 05/25/2017 Comp Metabolic Oei632 B/C Ratio 17.4 Ratio 05/25/2017 Comp Metabolic Qih285 CALCIUM 9.1 mg/dL 05/25/2017 Comp Metabolic Lxf540 ALK PHOS 109 U/L 05/25/2017 Comp Metabolic Yse285 AST(SGOT) 19 U/L 05/25/2017 Comp Metabolic Ame721 ALT(SGPT) 17 U/L 05/25/2017 Comp Metabolic Eoa164 BILI T 0.4 mg/dL 05/25/2017 Comp Metabolic Jyu436 ALBUMIN 3.3 g/dL 05/25/2017 Comp Metabolic Owl319 TPRO 6.0 g/dL 05/25/2017 Comp Metabolic Cmw629 GLOB 2.7 g/dL 05/25/2017 Comp Metabolic Tvi615 A/G Ratio 1.2 Ratio 05/25/2017 Comp Metabolic Dcl218 Osmo 281 mOsmo 05/25/2017 Lipid Ord30 CHOL 204 mg/dL 05/25/2017 Lipid Ord30 HDL 49.0 mg/dl 05/25/2017 Lipid Ord30 TRIG 117 mg/dL 05/25/2017 Lipid Ord30 LDL 132 mg/dL 05/25/2017 Lipid Ord30 C/HDL 4.2 Ratio 05/25/2017 %Hba1C Lvk312 % HbA1c 42002-7 10.5 % 05/25/2017 %Hba1C Spf392 Gluc Ave 255 mg/dL 05/25/2017 Microalbumin Qcu820 MicroAlb 95.0 mg/dL 05/25/2017 Review of Systems System Result Effective Dates Constitutional No recent illness 2017 Constitutional No chills 08/08/2018 Constitutional No diaphoresis 08/08/2018 Constitutional No fever 08/08/2018 Eyes No blindness 08/08/2018 Ears/Nose/Throat/Neck No nasal discharge 08/08/2018 Ears/Nose/Throat/Neck No sore throat Ears/Nose/Throat/Neck No sinus congestion 08/08/2018 Cardiovascular No chest pain/pressure Cardiovascular edema 08/08/2018 Cardiovascular hypertension 08/08/2018 Respiratory No chest congestion 2017 Respiratory No cough 08/08/2018 Respiratory No dyspnea on exertion 2017 Gastrointestinal No abdominal pain 2017 Gastrointestinal No constipation 2017 Gastrointestinal No diarrhea 08/08/2018 Gastrointestinal No nausea 08/08/2018 Gastrointestinal No vomiting 08/08/2018 Musculoskeletal arthralgia(s) 08/08/2018 Dermatologic No rash 08/08/2018 Neurologic No alteration of consciousness 08/08/2018 Neurologic No mental status change 2017 Endocrine diabetes mellitus type 2 2017 Psychiatric No anxiety 08/08/2018 Psychiatric No depression 08/08/2018 Constitutional No recent illness 2017 Constitutional No [...] 1994 Constitutional general appearance Overall: well developed 08/08/2018 None Full Exam - General 1994 Constitutional general appearance Overall: in no acute distress 08/08/2018 None Full Exam - General 1994 Constitutional general appearance Overall: well nourished 08/08/2018 None Full Exam - General 1994 Constitutional general appearance Hygiene/Attention to Grooming: good hygiene 08/08/2018 None Full Exam - General 1994 Eyes conjunctiva /eyelids Overall: conjunctiva clear 08/08/2018 None Full Exam - General 1994 Eyes conjunctiva /eyelids Overall: cornea clear 08/08/2018 None Full Exam - General 1994 Eyes conjunctiva /eyelids Overall: eyelids normal 08/08/2018 None Full Exam - General 1994 Eyes pupils and irises Overall: pupils equal, round, reactive to light and accomodation 08/08/2018 None Full Exam - General 1994 Ears/Nose/Throat otoscopic exam Overall: external auditory canals clear 08/08/2018 None Full Exam - General 1994 Ears/Nose/Throat otoscopic exam Overall: tympanic membranes clear 08/08/2018 None Full Exam - General 1994 Ears/Nose/Throat lips/teeth/gingiva Overall: benign lips 08/08/2018 None Full Exam - General 1994 Ears/Nose/Throat oral cavity/pharynx/larynx Overall: oral mucosa clear 08/08/2018 None Full Exam - General 1994 Ears/Nose/Throat oral cavity/pharynx/larynx Overall: oropharyngeal mucosa clear 08/08/2018 None Full Exam - General 1994 Respiratory auscultation Overall: breath sounds clear bilaterally 08/08/2018 None Full Exam - General 1994 Respiratory respiratory effort/rhythm Overall: no retractions 08/08/2018 None Full Exam - General 1994 Respiratory respiratory effort/rhythm Overall: normal rate 08/08/2018 None Full Exam - General 1994 Cardiovascular auscultation of heart Overall: regular rate 08/08/2018 None Full Exam - General 1994 Cardiovascular auscultation of heart Overall: normal heart sounds 08/08/2018 None Full Exam - General 1994 Abdomen abdominal exam Overall: no tenderness 08/08/2018 None Full Exam - General 1994 Abdomen abdominal exam Overall: normal bowel sounds 08/08/2018 None Full Exam - General 1994 Lymphatic neck nodes Overall: anterior cervical chain benign 08/08/2018 None Full Exam - General 1994 Lymphatic neck nodes Overall: posterior cervical chain benign 08/08/2018 None Full Exam - General 1994 Neurologic cranial nerves Overall: crainial nerves 2 - 12 grossly intact 08/08/2018 None Full Exam - General 1994 Psychiatric orientation/consciousness Overall: oriented to person, place and time 08/08/2018 None Full Exam - General 1994 Psychiatric mood and affect Overall: normal mood and affect 08/08/2018 None Full Exam - General 1994 Constitutional [...] lips 06/15/2017 None Full Exam - General 1995 Ears/Nose/Throat lips/teeth/gingiva Overall: normal dentition 06/15/2017 None [...] Procedures Procedure Codes Date DRAIN/INJECT JOINT/BURSA CPT-4: 86189 04/12/2018 TRIAMCINOLONE ACET INJ NOS CPT-4: J3301 04/12/2018 PPPS, SUBSEQ VISIT CPT -4: G0439 02/22/2018 ADMIN INFLUENZA VIRUS VAC CPT-4: G0008 06/02/2016 FLU VACC PRSV FREE INC ANTIG CPT-4: 90289 06/02/2016 Vital Signs Date Vital 08/08/2018 Blood Pressure 1: 174/70 Code : 8480-6 BMI: 25.3 Code : 09976-7 Heart Rate 1 : 60 bpm Height: 4'8" SpO2: 97% Weight: 113 lbs 07/17/2018 Blood Pressure 1: 148/62 Code : 8480-6 BMI: 24.9 Code : 64299-5 Heart Rate 1 : 65 bpm Height: 4'8" SpO2: 97% Weight: 111 lbs 06/26/2018 Blood Pressure 1: 118/72 Code : 8480-6 BMI: 25.1 Code : 95305-5 Heart Rate 1 : 58 bpm Height: 4'8" SpO2: 97% Weight: 112 lbs 06/21/2018 Blood Pressure 1: 120/72 Code : 8480-6 BMI: 25.1 Code : 89300-3 Heart Rate 1 : 56 bpm Height: 4'8" SpO2: 96% Weight: 112 lbs 05/02/2018 Blood Pressure 1: 178/76 Code : 8480-6 BMI: 24.7 Code : 85561-7 Heart Rate 1 : 72 bpm Height: 4'8" SpO2: 98% Weight: 110 lbs 04/27/2018 Blood Pressure 1: 164/78 Code : 8480-6 BMI: 24.7 Code : 20263-4 Heart Rate 1 : 69 bpm Height: 4'8" SpO2: 97% Weight: 110 lbs 04/20/2018 Blood Pressure 1: 140/80 Code : 8480-6 BMI: 24.7 Code : 07260-8 Heart Rate 1 : 83 bpm Height: 4'8" SpO2: 97% Weight: 110 lbs 04/12/2018 Blood Pressure 1: 146/78 Code : 8480-6 Heart Rate 1: 68 bpm Height: SpO2: 98% Weight: 04/10/2018 Blood Pressure 1: 146/60 Code : 8480-6 BMI: 24.7 Code : 16701-0 Heart Rate 1 : 60 bpm Height: 4'8" SpO2: 95% Weight: 110 lbs 04/03/2018 Blood Pressure 1: 204/80 Code : 8480-6 BMI: 24.9 Code : 18426-6 Heart Rate 1 : 62 bpm Height: 4'8" SpO2: 98% Weight: 111 lbs 03/13/2018 Blood Pressure 1: 140/68 Code : 8480-6 BMI: 25.6 Code : 83901-8 Heart Rate 1 : 68 bpm Height: 4'8" SpO2: 95% Weight: 114 lbs 02/22/2018 Blood Pressure 1: 166/88 Code : 8480-6 BMI: 24.7 Code : 16426-2 Heart Rate 1 : 72 bpm Height: 4'8" SpO2: 95% Weight: 110 lbs 02/01/2018 Blood Pressure 1: 162/70 Code : 8480-6 BMI: 23.2 Code : 17651-1 Heart Rate 1 : 64 bpm Height: 4'11" SpO2: 95% Weight: 115 lbs 01/18/2018 Blood Pressure 1: 192/86 Code : 8480-6 BMI: 22.6 Code : 50750-0 Heart Rate 1 : 68 bpm Height: 4'11" SpO2: 94% Weight: 112 lbs 12/21/2017 Blood Pressure 1: 110/52 Code : 8480-6 BMI: 23.0 Code : 06194-0 Heart Rate 1 : 58 bpm Height: 4'11" SpO2: 94% Weight: 114 lbs 10/10/2017 Blood Pressure 1: 168/78 Code : 8480-6 BMI: 23.0 Code : 08707-6 Heart Rate 1 : 54 bpm Height: 4'11" SpO2: 98% Weight: 114 lbs 09/07/2017 Blood Pressure 1: 142/72 Code : 8480-6 Heart Rate 1: 84 bpm Height: 4'11" SpO2: 97% Weight: 08/30/2017 Blood Pressure 1: 188/82 Code : 8480-6 BMI: 24.4 Code : 12836-7 Heart Rate 1 : 79 bpm Height: 4'11" SpO2: 88% Temperature: 38.5 (C) / 101.3 (F) Weight: 121 lbs 08/15/2017 Blood Pressure 1: 166/78 Code : 8480-6 BMI: 22.8 Code : 27184-4 Heart Rate 1 : 71 bpm Height: 4'11" SpO2: 96% Weight: 113 lbs 06/15/2017 Blood Pressure 1: 138/68 Code : 8480-6 BMI: 22.8 Code : 01994-4 Heart Rate 1 : 54 bpm Height: 4'11" SpO2: 98% Weight: 113 lbs 05/29/2017 Blood Pressure 1: 96/46 Code : 8480-6 Blood Pressure 2: 116/57 Code: 8480-6 Heart Rate 1: 54 bpm 05/11/2017 Blood Pressure 1: 144/60 Code : 8480-6 BMI: 23.8 Code : 34924-2 Heart Rate 1 : 68 bpm Height: 4'11" SpO2: 97% Weight: 118 lbs 01/05/2017 Blood Pressure 1: 134/72 Code : 8480-6 BMI: 24.8 Code : 20139-0 Heart Rate 1 : 64 bpm Height: 4'11" SpO2: 94% Weight: 123 lbs 09/20/2016 Blood Pressure 1: 148/66 Code : 8480-6 BMI: 25.4 Code : 05099-2 Heart Rate 1 : 68 bpm Height: 4'11" SpO2: 97% Weight: 126 lbs 09/01/2016 Blood Pressure 1: 162/80 Code : 8480-6 BMI: 26.1 Code : 15424-3 Heart Rate 1 : 75 bpm Height: 4'11" SpO2: 95% Weight: 129 lbs 06/02/2016 Blood Pressure 1: 144/82 Code : 8480-6 BMI: 25.4 Code : 11512-7 Heart Rate 1 : 68 bpm Height: 4'11" SpO2: 98% Weight: 126 lbs 03/25/2016 Blood Pressure 1: 140/58 Code : 8480-6 BMI: 25.9 Code : 02753-9 Heart Rate 1 : 58 bpm Height: 4'11" SpO2: 95% Weight: 128 lbs 01/26/2016 Blood Pressure 1: 138/68 Code : 8480-6 BMI: 26.3 Code : 58363-9 Heart Rate 1 : 66 bpm Height: 4'11" SpO2: 96% Weight: 130 lbs 10/29/2015 Blood Pressure 1: 180/78 Code : 8480-6 BMI: 25.7 Code : 00818-3 Heart Rate 1 : 74 bpm Height: 4'11" SpO2: 97% Weight: 127 lbs 07/21/2015 Blood Pressure 1: 136/70 Code : 8480-6 BMI: 25.9 Code : 49544-1 Heart Rate 1 : 63 bpm Height: 4'11" SpO2: 95% Weight: 128 lbs 07/08/2015 Blood Pressure 1: 140/70 Code : 8480-6 BMI: 26.5 Code : 70876-0 Heart Rate 1 : 59 bpm Height: 4'11" SpO2: 94% Weight: 131 lbs 5 oz 05/04/2015 Blood Pressure 1: 140/60 Code : 8480-6 BMI: 25.7 Code : 67592-2 Heart Rate 1 : 60 bpm Height: 4'11" SpO2: 94% Weight: 127 lbs Functional Status No Functional Status data History of Present Illness Symptom Name Status Result Effective Date Notes diabetes mellitus Quality chronic 08/08/2018 None diabetes mellitus Quality insulin dependent 08/08/2018 None diabetes mellitus Alleviating Factors insulin 08/08/2018 None diabetes mellitus Exacerbating Factors diet 08/08/2018 None hypertension Quality chronic 08/08/2018 None hypertension Quality primary hypertension 08/08/2018 None hypertension Onset and Resolution ongoing 08/08/2018 None hypertension Onset of Symptom during adulthood 08/08/2018 None hypertension Significant Medical Conditions diabetes 08/08/2018 None hypertension Alleviating Factors medication 08/08/2018 None diabetes mellitus Onset of Symptom onset as an adult 08/08/2018 None diabetes mellitus Test results Pt checking blood glucose at home, see scanned readings 2017 None diabetes mellitus Glucose monitoring daily 08/08/2018 -has a continuous glucose monitor diabetes mellitus Pertinent Findings dizziness 08/08/2018 "some" diabetes mellitus Pertinent Findings Denies dyspnea 08/08/2018 None diabetes mellitus Pertinent Findings Denies nausea 08/08/2018 None hypertension Blood Pressure Values patient checking blood pressure at home - did not bring in readings 08/08/2018 -Does not check often hypertension Pertinent Findings edema 08/08/2018 in the left leg diabetes mellitus Quality IDDM 07/17/2018 None diabetes [...] Present Encounters Encounter Performer Location Codes Date ( [id number] EST. PATIENT, LEVEL IV Diagnosis: Essential (primary) hypertension[ICD10: I10] Diagnosis: Type 2 diabetes mellitus without complications[ICD10: E11.9] Kate Sow MD, [facility] CPT-4: 97992 08/08/2018 [id number] EST. PATIENT, LEVEL III Diagnosis: Type 2 diabetes mellitus with hyperglycemia[ICD10: E11.65] Elizabeth Sow MD, [facility] CPT-4: 08854 07/17/2018 [id number] EST. PATIENT, LEVEL III Diagnosis: Type 2 diabetes mellitus with hyperglycemia[ICD10: E11.65] Diagnosis: Weakness[ICD10: R53.1] Diagnosis: Unsteadiness on feet[ICD10: R26.81] Elizabeth Sow MD, [facility] CPT-4: 28223 06/26/2018 ([id number]) 69507 EST. PATIENT, LEVEL IV Diagnosis: Type 2 diabetes mellitus with hyperglycemia[ICD10: E11.65] Diagnosis: Essential (primary) hypertension[ICD10: I10] Diagnosis: Muscle weakness (generalized)[ICD10: M62.81] Diagnosis: Localized edema[ICD10: R60.0] Kate Sow MD, [facility] CPT- 4: 83551 06/21/2018 ([id number]) 31867 EST. 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 PATIENT, LEVEL III Diagnosis: Low back pain[ICD10: M54.5] Elizabeth Sow MD, [facility] CPT-4 : 08279 04/27/2018 ([id number]) 10965 EST. PATIENT, LEVEL IV Diagnosis: Diplopia[ICD10: H53.2] Diagnosis: Rash and other nonspecific skin eruption[ICD10: R21] Diagnosis: Type 2 diabetes mellitus with hyperglycemia[ICD10: E11.65] Laney Sow MD, [facility] CPT-4: 89925 04/20/2018 ([id number]) 28664 EST. PATIENT, LEVEL III Diagnosis: Low back pain[ICD10: M54.5] Elizabeth Sow MD, [facility] CPT-4 : 97191 04/12/2018 ([id number]) 02203 EST. PATIENT, LEVEL III Diagnosis: Essential (primary) hypertension[ICD10: I10] Diagnosis: Type 2 diabetes mellitus with hyperglycemia[ICD10: E11.65] Kate Sow MD , [facility] CPT-4: 83314 04/10/2018 ([id number]) 85991 EST. PATIENT, LEVEL III Diagnosis: Lumbago with sciatica, left side[ICD10: M54.42] Diagnosis: Essential (primary) hypertension[ICD10: I10] Laney Sow MD, [facility] CPT-4: 22264 04/03/2018 ([id number]) 08141 EST. PATIENT, LEVEL IV Diagnosis: Type 2 diabetes mellitus with hyperglycemia[ICD10: E11.65] Diagnosis: Essential (primary) hypertension[ICD10: I10] Kate Sow MD, [facility] CPT-4: 64085 03/13/2018 ([id number]) 20020 EST. PATIENT, LEVEL IV Diagnosis: Essential (primary) hypertension[ICD10: I10] Diagnosis: Type 2 diabetes mellitus with hyperglycemia[ICD10: E11.65] Kate Sow MD , [facility] CPT-4: 13063 02/01/2018 ([id number]) 39352 EST. PATIENT, LEVEL IV Diagnosis: Type 2 diabetes mellitus with hyperglycemia[ICD10: E11.65] Diagnosis: Essential (primary) hypertension[ICD10: I10] Kate Sow MD, [facility] CPT-4: 52292 01/18/2018 ([id number]) Miscellaneous no charge Diagnosis: Type 2 diabetes mellitus with hyperglycemia[ICD10: E11.65] Elizabeth Sow MD, [facility] CPT-4: 06623 12/22/2017 ([id number]) 92648 EST. PATIENT, LEVEL IV Diagnosis: Type 2 diabetes mellitus with hyperglycemia[ICD10: E11.65] Diagnosis: Essential (primary) hypertension[ICD10: I10] Diagnosis: Muscle weakness (generalized)[ICD10: M62.81] Kate Sow MD, [facility] CPT-4: 31044 12/21/2017 62604 EST. PATIENT, LEVEL IV Diagnosis: Type 2 diabetes mellitus without complications[ICD10: E11.9] Diagnosis: Mixed hyperlipidemia[ICD10: E78.2] Diagnosis: Essential (primary) hypertension[ICD10: I10] Elizabeth Sow MD, [facility] CPT-4: 32234 10/10/2017 09263 EST. PATIENT, LEVEL III Diagnosis: Weakness[ICD10: R53.1] Diagnosis: Essential (primary) hypertension[ICD10: I10] Elizabeth Sow MD, [facility] CPT-4: 29723 09/07/2017 66952 EST. PATIENT, LEVEL III Diagnosis: Encounter for follow-up examination after completed treatment for conditions other than malignant neoplasm[ICD10: Z09] Diagnosis: Weakness[ICD10: R53.1] Diagnosis: Essential (primary) hypertension[ICD10: I10] Diagnosis: Dyspnea, unspecified[ICD10: R06.00] Diagnosis: Unsteadiness on feet[ICD10: R26.81] Elizabeth Sow MD, [facility] CPT-4: 18740 08/30/2017 ([id number]) 39901 EST. PATIENT, LEVEL IV Diagnosis: Type 2 diabetes mellitus without complications[ICD10: E11.9] Diagnosis: Essential (primary) hypertension[ICD10: I10] Kate Sow MD, [facility] CPT-4: 83457 08/15/2017 ([id number]) 92799 EST. PATIENT, LEVEL IV Diagnosis: Type 2 diabetes mellitus without complications[ICD10: E11.9] Diagnosis: Essential (primary) hypertension[ICD10: I10] Diagnosis: Unsteadiness on feet[ICD10: R26.81] Kate Sow MD, [facility] CPT-4: 55857 06/15/2017 ([id number]) Miscellaneous no charge Diagnosis: Essential (primary) hypertension[ICD10: I10] Laney Sow MD, [facility] CPT-4: 25617 05/29/2017 ([id number]) 85398 EST. PATIENT, LEVEL IV Diagnosis: Type 2 diabetes mellitus without complications[ICD10: E11.9] Diagnosis: Essential (primary) hypertension[ICD10: I10] Diagnosis: Mixed hyperlipidemia[ICD10: E78.2] Kate Sow MD, [facility] CPT-4: 85501 05/11/2017 ([id number]) 48677 EST. PATIENT, LEVEL IV Diagnosis: Type 2 diabetes mellitus without complications[ICD10: E11.9] Diagnosis: Essential (primary) hypertension[ICD10: I10] Kate Sow MD, [facility] CPT-4: 61568 01/05/2017 ([id number]) 31204 EST. PATIENT, LEVEL III Diagnosis: Essential (primary) hypertension[ICD10: I10] Kate Sow MD, [facility] CPT-4: 62509 09/20/2016 ([id number]) 38407 EST. PATIENT, LEVEL III Diagnosis: Essential (primary) hypertension[ICD10: I10] Laney Sow MD, [facility] CPT-4: 66780 09/01/2016 ([id number]) Miscellaneous no charge Diagnosis: Impacted cerumen, right ear[ICD10: H61.21] Elizabeth Sow MD, [facility] CPT-4: 93859 06/08/2016 ([id number]) 73078 EST. PATIENT, LEVEL IV Diagnosis: Type 2 diabetes mellitus without complications[ICD10: E11.9] Diagnosis: Essential (primary) hypertension[ICD10: I10] Diagnosis: Encounter for immunization[ICD10: Z23] Kate Sow MD, [facility] CPT-4: 84360 06/02/2016 66754 EST. PATIENT, LEVEL III Diagnosis: Essential (primary) hypertension[ICD10: I10] Diagnosis: Other specified cardiac arrhythmias[ICD10: I49.8] Elizabeth Sow MD, [facility] CPT-4: 03652 03/25/2016 ([id number]) 05038 EST. PATIENT, LEVEL IV Diagnosis: Type 2 diabetes mellitus without complications[ICD10: E11.9] Diagnosis: Essential (primary) hypertension[ICD10: I10] Kate Sow MD, [facility] CPT-4: 95675 01/26/2016 ([id number]) 65684 EST. PATIENT, LEVEL IV Diagnosis: Essential (primary) hypertension[ICD10: I10] Diagnosis: Type 2 diabetes mellitus without complications[ICD10: E11.9] Kate Sow MD, [facility] CPT-4: 77867 10/29/2015 ([id number]) 43066 EST. PATIENT, LEVEL IV Diagnosis: Essential (primary) hypertension[ICD10: I10] Diagnosis: Dyspnea, unspecified[ICD10: R06.00] Kate Sow MD, [facility] CPT-4: 78800 07/21/2015 ([id number]) 09656 EST. PATIENT, LEVEL III Diagnosis: Edema, unspecified[ICD10: R60.9] Kate Sow MD, [facility] CPT-4: 49347 07/08/2015 ([id number]) OFFICE VISIT, NEW - LEVEL 4 Diagnosis: ESSENTIAL HYPERTENSION[ICD9: 401.9] Diagnosis: DIABETES TYPE II[ICD9: 250.00] [facility] CPT- 4: 85591 05/04/2015 Plan of Care Planned Activity Notes Codes Status Date Appointment: [phone] [facility] ([facility] min[facility] Moderate 08/17/2018 Visit Plan: Diabetes Mellitus - improved control- per recent FSBS reports. I have recommended [...] starting to become less controlled. Hypertension - uncontrolled. The patient has been counseled to cut back on salt in diet for a no added salt diet. Check blood pressure at home and monitor symptoms - bring reports to the office next week. The patient is to check blood pressure readings as an outpatient and either fax, call, or email the readings to the office next week for practitioner to review. The pt is to call for acute concerns. 08/08/2018 Appointment: [phone] [facility] [place] 30 min appointments only in this slot 08/08/2018 Patient Education: Patient Medication Summary Completed 08/08/2018 Patient Education: Diabetes Completed 08/08/2018 Appointment: [facility] [phone] [facility] (15 min) Moderate 08/07/2018 Visit Plan: Diabetes Mellitus - Uncontrolled - [...] glucose control. 07/17/2018 Appointment: [phone] [facility] [place] (15 min) Moderate 07/17/2018 Patient Education: Patient [...] glucose control. 06/26/2018 Appointment: Elizabeth Milner WPtel: [address] [place], [place] [address] [place] (15 min) Moderate 06/26/2018 Patient Education: Patient Medication Summary Completed 06/26/2018 Patient Education: Diabetes Completed 06/26/2018 Visit Plan: Diabetes improved control [facility] at the [facility] - discussed with patient and her maribell r- agree with the changes made by [...] Assisted Living. 06/21/2018 Appointment: Kate Sow WPtel: [facility] (15 min) Moderate 06/21/2018 Patient Education: Patient Medication Summary Completed 06/21/2018 Patient Education: Diabetes Completed 06/21/2018 Appointment: Kate Sow WPtel: [facility] (15 min) Moderate 05/09/2018 Visit Plan: Uncontrolled [...] sleep better. 05/02/2018 Appointment: Kate Sow WPtel: [facility] (15 min) Moderate 05/02/2018 Patient Education: Patient Medication Summary Completed 05/02/2018 Care Plan: X-RAY EXAM L-S SPINE 2/3 VWS LOINC : 50388-1 Pending 05/02/2018 Visit Plan: Low back pain- the patient was instructed in appropriate posture - The pt is to use prn antiinflammatories to manage acute pain. The patient is to call the office if the pain is worsening or does not improve. 04/27/2018 Appointment: Elizabeth Milner WPtel: [facility] [place] (15 min) Moderate 04/27/2018 Patient Education: Patient Medication Summary Completed 04/27/2018 Visit Plan: Double vision-suspect due to elevated blood sugars -recommend patient bring in log of blood sugars to next appt -notify rotary soil stabilizer of elevated readings and watch diet closely -also recommend f/u with eye doctor Rash-suspect shingles-rx for acyclovir provided and instructed on use 04/20/2018 Appointment: Laney Mcmillan WPtel: [phone] [phone] (15 min) Moderate 04/20/2018 Patient Education: Patient [...] they worsen. 04/12/2018 Appointment: Elizabeth Milner WPtel: [facility] (15 min) Moderate 04/12/2018 Patient Education: Patient [...] less controlled. 04/10/2018 Appointment: Kate Sow WPtel: [facility] (15 min) Moderate 04/10/2018 Patient Education: Patient [...] concerns. 04/03/2018 Appointment: Laney Mcmillan WPtel: [phone] [phone] [place] (15 min) Moderate 04/03/2018 Patient [...] home. 03/13/2018 Appointment: Kate Sow WPtel: [phone] [facility] (15 min) Moderate 03/13/2018 Patient Education: Patient [...] diet. 02/01/2018 Appointment: Kate Sow WPtel: [facility] (15 min) Moderate 02/01/2018 Patient Education: Patient [...] daily. 01/18/2018 Appointment: Kate Sow WPtel: [phone] [facility] [place] (15 min) Moderate 01/18/2018 Patient Education: Patient Medication Summary Completed 01/18/2018 Appointment: Kate Sow WPtel: [phone] [facility] [place] (15 min) Moderate 01/11/2018 Appointment: [facility] [phone] [facility] [place] (15 min) Moderate 12/25/2017 Visit Plan: [...] therapy at [facility] 12/21/2017 Appointment: [place] [facility] [phone] [facility] (15 min) Moderate 12/21/2017 Patient Education: Patient Medication Summary Completed 12/21/2017 Appointment: Kate Sow WPtel: [phone] [facility] (15 min) Moderate 12/13/2017 Visit Plan: Hypertension [...] glucose control. 10/10/2017 Appointment: [phone] [facility] (15 min) Moderate 10/10/2017 Patient Education: [...] at home. 09/07/2017 Appointment: [phone] [facility] (30 min) Complex 09/07/2017 Patient Education: Patient Medication Summary Completed 09/07/2017 Appointment: Kate [facility]ow [facility] [phone] [facility] [place] (15 min) Moderate 09/05/2017 Visit Plan: [...] rehabilitation. 08/30/2017 Appointment: [facility] [phone] [facility] [place] (30 min) Complex 08/30/2017 Patient Education: Patient Medication Summary Completed 08/30/2017 Appointment: [phone] [facility] [place] (15 min) Moderate 08/29/2017 Visit [...] home. 08/15/2017 Appointment: Kate Sow WPtel: [phone] [facility] (15 min) Moderate 08/15/2017 Patient Education: Patient Medication Summary Completed 08/15/2017 Care Plan: %Hba1C LOINC : 30947-4 Cancelled 08/15/2017 Referral: [facility] WPtel: [phone] [facility] Patient's informed. Completed 06/26/2017 Visit [...] glucose control. [facility]. Hypertension - well controlled - continue with current medications , continue with no added salt diet. Pt has been encouraged to exercise daily. The pt has been advised to call the office if there are any acute concerns about change in blood pressure readings at home. 06/15/2017 Appointment: Kate Sow WPtel: [facility] (15 min) Moderate 06/15/2017 Patient Education: Patient Medication Summary Completed 06/15/2017 Care Plan: Referral Order SNOMED-CT : [id number] Pending 06/15/2017 Appointment: Nurse Visit 05/29/2017 Patient [...] and come in here or go to [facility] or [facility] to get this set of labs done. [...] with Statin 05/11/2017 Appointment: Kate Sow WPtel: [address] [place], [place] [address] (15 min) Moderate 05/11/2017 Patient Education: Patient [...] daily. 01/05/2017 Appointment: Kate Sow WPtel: [phone] [facility] (15 min) Moderate 01/05/2017 Patient Education: Patient Medication Summary Completed 01/05/2017 Visit Plan: Hypertension - well controlled - continue with current medications, continue with no added salt diet. Pt has been encouraged to exercise daily. The pt has been advised to call the office if there are any acute concerns about change in blood pressure readings at home. 09/20/2016 Appointment: Kate Sow WPtel: [facility] (30 min) Complex 09/20/2016 Patient Education: Patient [...] acute concerns. 09/01/2016 Appointment: Laney Mcmillan WPtel: [phone] [place] (30 min) Complex 09/01/2016 Patient Education: Patient Medication Summary Completed 09/01/2016 Appointment: Kate Sow WPtel: [facility] (15 min) Moderate 08/31/2016 Appointment: Nurse Visit [...] less controlled. 06/02/2016 Appointment: Kate Sow WPtel: [phone] [facility] (15 min) Moderate 06/02/2016 Patient Education: Patient Medication Summary Completed 06/02/2016 Patient Education: Hypertension Completed 06/02/2016 Visit Plan: Bradycardia - reports pt has brought in indicates that the pt has been having a pulse in the 40s-50s. Will adjust medications, pt is to notify clinic if her symptoms do not improve, or with any concerns. 03/25/2016 Appointment: Laney Mcmillan WPtel: [phone] [phone] (10 min) Simple 03/25/2016 Patient Education: Patient [...] DM - managed by Dr. Johnson from [place] 01/26/2016 Patient Education: Patient Medication Summary Completed 01/26/2016 Patient Education: Hypertension Completed 01/26/2016 Appointment: Laney Mcmillan WPtel: [phone] [phone] (30 min) Complex 12/31/2015 Visit Plan: [...] starting to become less controlled. 10/29/2015 Appointment: Juanjose Kate [facility] [phone] [facility] (15 min) Moderate 10/29/2015 Patient Education: Patient Medication Summary Completed 10/29/2015 Patient Education: Hypertension Completed 10/29/2015 Appointment: Kate [facility]ow [facility] [phone] [facility] [place] (15 min) Moderate 09/14/2015 Visit Plan: [...] today, as soon as you get to [place], monday morning, then start taking the lasix [...] handout Begin using muscle rub on back ([place] balm) 05/04/2015 Appointment: Kate Sow [facility]el[facility] [phone] [facility] [place] (S) New Patient 05/04/2015 Patient Education: Patient Medication Summary Completed 05/04/2015 Patient Education: Hypertension Completed 05/04/2015 [phone] [facility] [place] Referral Appointment Requested Instructions Comment see if Dr. Johnson has the toujeo samples for you - if not , go to the pharmacy to machine operator picker the toujeo script. if the toujeo script is too expensive , call the office and we will give you a sample of basaglar or levemir or lantus to get you through until you can get the samples from dr. johnosn . Diabetes Mellitus - Uncontrolled - per [...] glucose control. G[facility] Instability - [facility]. Hypertension - [...] use with the pt and her dtr. estevan at 15 units Hypertension - well controlled [...] of blood sugars to next appt -notify rotary soil stabilizer of elevated readings and watch diet closely [...] , as soon as you get to monday [...] DM - managed by Dr. Johnson from [place] . Low back pain- the patient was [...] and come in here or go to [facility] or [facility] to get this set [...] and come in here or go to [facility] or [facility] to get this set [...] . Diabetes [facility] control [facility] discussed with patient and her hirale [...] handout Begin using muscle rub on back ([place] balm) Begin taking Lasix again No blood [...] handout Begin using muscle rub on back ([place] balm) . Diabetes Mellitus - improved control- per recent FSBS reports. I have recommended [...] starting to become less controlled. Hypertension - uncontrolled. The patient has been counseled to cut back on salt in diet for a no added salt diet. Check blood pressure at home and monitor symptoms - bring reports to the office next week. The patient is to check blood pressure readings as an outpatient and either fax , call, or email the readings to the office next week for practitioner to review. The pt is to call for acute concerns.
[2018-08-21] MEDS ORDERED: ASPIRIN 81 MG CHEW (CHILDREN'S ASA) PO ONE (03:30)
--- NOTE | 2018-08-21 03:35 | ED Chest Pain ---
General Stated Complaint: LOW BLOOD SUGAR Source: patient, spouse Exam Limitations: no limitations (IVONNE CORDERO) History of Present Illness Date Seen by Provider: Aug 21, 2018 Time Seen by Provider: 03:11 Initial Comments The patient presents to ER by private conveyance with chief complaint she woke up normally this morning before she got any of her medicines or had any breakfast: she took her blood sugar and found it to be about 29. She said she was not feeling well having some pressure in her chest and palpitations in her heart. Her denies that she fell down or struck her head or passed out. He decided to bring her to the ER. At this point she is endorsing some chest pressure in the middle of her chest that does not radiate. No nausea vomiting sweats. She's been on Keflex for the past 4 days for a bladder infection from her primary care doctor's office. She denies any fevers chills cough shortness of breath nausea vomiting or diarrhea. She is very hard of hearing and her gives most of the history. (IVONNE CORDERO) Allergies and Home Medications Allergies Coded Allergies: No Known Drug Allergies (Unverified , 03/17/18) Home Medications Amlodipine Besylate 10 Mg Tablet, 10 MG PO HS, (Reported) Apixaban 2.5 Mg Tablet, 2.5 MG PO BID, (Reported) LAST FILLED #60 18 Aspirin 81 Mg Tablet.dr, 81 MG PO DAILY, (Reported) Atorvastatin Calcium 40 Mg Tablet, 40 MG PO HS, (Reported) Diclofenac Sodium 100 Gm Gel..gram., TOP QID PRN for ARTHRITIS PAIN, (Reported) Dronedarone HCl 400 Mg Tablet, 400 MG PO BID, (Reported) LAST FILLED #60 18 Furosemide 20 Mg Tablet, 20 MG PO DAILY PRN for SWELLING, (Reported) Insulin Aspart 300 Units/3 Ml Solution, SC AC, (Reported) 80-150 = 10 UNITS 151-200 = 15 UNITS 201-300 = 17 UNITS > 300 = 21 UNITS Insulin Glargine,Hum.rec.anlog 300 Unit/1 Ml Insuln.pen, 20 UNIT SQ HS, ( Reported) L.acidoph & Paracasei,B.lactis 1 Each Capsule, 1 CAP PO TID, (Reported) Levofloxacin 250 Mg Tablet, PO UD, (Reported) 7 DAY SUPPLY FILLED 08-20-18 TAKE 2 (250MG) TABS DAY 1 THEN TAKE 1 (250MG) TAB DAYS 2-7 Losartan Potassium 100 Mg Tablet, 100 MG PO DAILY, (Reported) LAST FILLED #90 04-03-18 Metoprolol Succinate 25 Mg Tab.er.24h, 50 MG PO DAILY, (Reported) LAST FILLED #90 04-07-18 Potassium Chloride 10 Meq Tablet.er, 10 MEQ PO DAILY PRN for WHEN TAKING FUROSEMIDE, (Reported) Patient Home Medication List Home Medication List Reviewed: Yes (IVONNE CORDERO) Review of Systems Review of Systems Constitutional: No chills, No fever; malaise, weakness EENTM: No Blurred Vision, No Double Vision Respiratory: Denies Cough, Denies Shortness of Air Cardiovascular: See HPI, Chest Pain, Edema, Lightheadedness, Palpitations; Denies Syncope Gastrointestinal: Denies Abdomen Distended, Denies Abdominal Pain, Denies Constipated, Denies Diarrhea, Denies Nausea Genitourinary: Denies Burning, Denies Discharge Musculoskeletal: No back pain, No joint pain Skin: No pruritus, No rash Psychiatric/Neurological: Denies Headache, Denies Numbness (IVONNE CORDERO) Past Ktqdzjc-Trvvzv-Vziyjo Hx Patient Social History Alcohol Use: Occasionally Uses Alcohol Beverage of Choice: Rum Recreational Drug Use: No Smoking Status: Never a Smoker 2nd Hand Smoke Exposure: No Recent Foreign Travel: No Contact w/Someone Who Travel: No Recent Hopitalizations: Yes (ED VISITS FOR BLOOD SUGAR PROB) (IVONNE CORDERO) Immunizations Up To Date Tetanus Booster (TDap): Unknown PED Vaccines UTD: No Date of Pneumonia Vaccine: Jun 18, 2017 Date of Influenza Vaccine: Aug 08, 2017 (IVONNE CORDERO) Seasonal Allergies Seasonal Allergies: No (IVONNE CORDERO) Past Medical History Surgeries: Yes (RIGHT FOOT SURGERY) Respiratory: No Currently Using CPAP: No Currently Using BIPAP: No Cardiac: Yes (STENTS, MONITOR PLACED BY DR. 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 Sexually Transmitted Disease: No HIV/AIDS: No Genitourinary: Yes ( KIDNEY DISEASE, recurrent urinary tract infection) Renal Failure Gastrointestinal: No Musculoskeletal: Yes Arthritis Endocrine: Yes Diabetes, Insulin dep HEENT: Yes Cataract Loss of Vision: Denies Hearing Impairment: Hard of Hearing, Bilateral Hearing Aide Cancer: No Psychosocial: No Integumentary: No Blood Disorders: No Adverse Reaction/Blood Tranf: No (IVONNE CORDERO) Family Medical History Alzheimer's disease 19 MOTHER, Arthritis 19 FATHER, 19 MOTHER, G8 BROTHER, G8 BROTHER, G8 BROTHER G8 SISTER G8 SISTER Cardiovascular disease 19 MOTHER, G8 BROTHER, Completed stroke 19 MOTHER, G8 SISTER Hypercholesterolemia 19 FATHER, G8 BROTHER, Hypertension 19 MOTHER, Myocardial infarction 19 FATHER, G8 BROTHER, Heart Disease, Diabetes, Hypertension, Stroke (IVONNE CORDERO) Physical Exam Vital Signs Vital Signs - First Documented (BRUNO MCCABE MD) Vital Signs Capillary Refill : (IVONNE CORDERO) Height, Weight, BMI Height: 5'0" Weight: 113lbs. 8.0oz. 51.745770ts; 18.5 BMI Method:Stated General Appearance: WD/WN, Mild Distress HEENT: PERRL/EOMI, Normal ENT Inspection, Pharynx Normal, Moist Mucous Membranes Neck: Full Range of Motion, Normal Inspection Respiratory: Chest Non Tender, Lungs Clear, Normal Breath Sounds, No Accessory Muscle Use, No Respiratory Distress Cardiovascular: Regular Rate, Rhythm, Other (mild bipedal edema 1+ pitting at the ankle) Gastrointestinal: Normal Bowel Sounds, Non Tender, Soft Extremity: Normal Capillary Refill, Non Tender, No Calf Tenderness Neurologic/Psychiatric: Alert, Oriented x3 Skin: Normal Color, Warm/Dry (IVONNE CORDERO) Progress/Results/Core Measures Results/Orders Lab Results Laboratory Tests Test 08/21/18 03:23 08/21/18 03:42 08/21/18 04:13 08/21/18 04:29 Range/Units Glucometer 164 H 142 H 70-110 MG/DL White Blood Count 7.9 4.3-11.0 10^3/uL Red Blood Count 4.02 L 4.35-5.85 10^6/uL Hemoglobin 12.3 11.5-16.0 G/DL Hematocrit 37 35-52 % Mean Corpuscular Volume 93 80-99 FL Mean Corpuscular Hemoglobin 31 25-34 PG Mean Corpuscular Hemoglobin Concent 33 32-36 G/DL Red Cell Distribution Width 14.3 10.0-14.5 % Platelet Count 50 L 130-400 10^3/uL Mean Platelet Volume 7.4-10.4 FL Neutrophils (%) (Auto) 40 L 42-75 % Lymphocytes (%) (Auto) 41 12-44 % Monocytes (%) (Auto) 12 0-12 % Eosinophils (%) (Auto) 6 0-10 % Basophils (%) (Auto) 1 0-10 % Neutrophils # (Auto) 2.9 1.8-7.8 X 10^3 Lymphocytes # (Auto) 3.0 1.0-4.0 X 10^3 Monocytes # (Auto) 0.8 0.0-1.0 X 10^3 Eosinophils # (Auto) 0.5 H 0.0-0.3 10^3/uL Basophils # (Auto) 0.0 0.0-0.1 10^3/uL Prothrombin Time 14.9 H 12.2-14.7 SEC INR Comment 1.2 0.8-1.4 Activated Partial Thromboplast Time 33 24-35 SEC Sodium Level 136 135-145 MMOL/L Potassium Level 5.1 H 3.6-5.0 MMOL/L Chloride Level 107 98-107 MMOL/L Carbon Dioxide Level 18 L 21-32 MMOL/L Anion Gap 11 5-14 MMOL/L Blood Urea Nitrogen 41 H 7-18 MG/DL Creatinine 1.61 H 0.60-1.30 MG/DL Estimat Glomerular Filtration Rate 30 BUN/Creatinine Ratio 25 Glucose Level 142 H 70-105 MG/DL Calcium Level 9.7 8.5-10.1 MG/DL Corrected Calcium 10.0 8.5-10.1 MG/DL Magnesium Level 2.6 H 1.8-2.4 MG/DL Total Bilirubin 0.3 0.1-1.0 MG/DL Aspartate Amino Transf (AST/SGOT) 577 H 5-34 U/L Alanine Aminotransferase (ALT/SGPT) 531 H 0-55 U/L Alkaline Phosphatase 140 H 40-136 U/L Myoglobin 130.5 H 10.0-92.0 NG/ML Troponin I < 0.30 <0.30 NG/ML Total Protein 8.3 H 6.4-8.2 GM/DL Albumin 3.6 3.2-4.5 GM/DL Lipase 218 H 8-78 U/L B-Type Natriuretic Peptide 245.9 H <100.0 PG/ML Test 08/21/18 06:00 Range/Units Urine Color YELLOW Urine Clarity CLEAR Urine pH 6.5 5-9 Urine Specific Banks 1.015 L 1.016-1.022 Urine Protein 3+ H NEGATIVE Urine Glucose (UA) NEGATIVE NEGATIVE Urine Ketones NEGATIVE NEGATIVE Urine Nitrite NEGATIVE NEGATIVE Urine Bilirubin NEGATIVE NEGATIVE Urine Urobilinogen NORMAL NORMAL MG/DL Urine Leukocyte Esterase 2+ H NEGATIVE Urine RBC (Auto) 2+ H NEGATIVE Urine RBC 10-25 H /HPF Urine WBC 5-10 H /HPF Urine Squamous Epithelial Cells 2-5 /HPF Urine Crystals NONE /LPF Urine Bacteria TRACE /HPF Urine Casts NONE /LPF Urine Mucus NEGATIVE /LPF Urine Culture Indicated YES (BRUNO MCCABE MD) Medications Given in ED Current Medications Medications Dose Ordered Sig/Thee Route Start Time Stop Time Status Last Admin Dose Admin Aspirin 324 mg ONCE ONCE PO 08/21/18 03:30 08/21/18 03:31 DC 08/21/18 03:34 324 MG Ceftriaxone Sodium 1000 mg/ Sodium Chloride 50 ml @ 100 mls/hr ONCE ONCE IV 08/21/18 05:00 08/21/18 05:29 DC 08/21/18 05:19 100 MLS/HR (BRUNO MCCABE MD) Vital Signs/I&O 08/21/18 08/21/18 03:18 03:18 Pulse 42 Resp 17 B/P (MAP) 126/49 (74) O2 Delivery Room Air Room Air (BRUNO MCCABE MD) Progress Progress Note #1: Time: 03:31 Progress Note Blood sugar on arrival was 164. Either she ate something or her liver has released glucagon. We'll go ahead and continue to monitor that and get some labs give her aspirin for her chest pressure. Initial EKG shows a junctional rhythm. We'll give her Rocephin. The urine culture obtained from 16 August demonstrates Escherichia coli and enterococcus faecalis which was both ospina susceptible to the Keflex and others. Differential diagnosis for the low blood sugar was secondary to infection or cardiac in origin. Progress Note #2: Time: 05:05 Progress Note Patient is no longer complaining of chest pain however her pancreatic enzymes and liver enzymes are mildly elevated. We will obtain a CT of the abdomen and pelvis without contrast looking for any obvious acute evidence of disease or infectious disease that might explain her hypoglycemia. We will pursue a chest pain workup on observation stay if there is no other acute pathology in the abdomen. (IVONNE CORDERO) Progress Note : Time: 07:06 Progress Note Care of this patient was assumed from Dr. Cordero shift change. I've reviewed labs and CT imaging. CT was discussed with the [facility] radiologist. There are inflammatory changes in the upper abdomen, possibly pancreatitis. This does seem to correlate with her labs. Cause of pancreatitis is uncertain. Patient denies any pain at this time but states she had a pressure in her lower chest earlier. Labs also revealed hyperkalemia and a bump in creatinine. Because of this I will order some gentle hydration with normal saline at 150 mL per hour 1 L. Rocephin was given by Dr. Cordero for continued treatment of urinary tract infection. Patient and her are both extremely hard of hearing which makes communication very difficult. I do not believe I could have a meaningful conversation about CODE STATUS with them at this time because of the hearing deficits. I will keep the patient as a DO NOT RESUSCITATE status which is what was ordered on her last admission. I am holding off on any of her blood pressure medications at this time because of a blood pressure in the lower range for her historical blood pressures. Also her creatinine is bumped which may reflect some hypovolemia. Pain we will order frequent blood sugars and a vital signs initially. Case was discussed with Dr. Sow. (BRUNO MCCABE MD) Initial ECG Impression Date: Aug 21, 2018 Initial ECG Impression Time: 03:21 Initial ECG Rate: 44 Initial ECG Intervals: QT (418) Initial ECG Impression: Nonspecific Changes Initial ECG Comparisson: Changed Comment Junctional escape rhythm without significant ST elevation or depression. (IVONNE CORDERO) Diagnostic Imaging Diagonstic Imaging: Xray Plain Films/CT/US/NM/MRI: chest (1v) Comments Diffuse patchy appearance possibly consistent with pulmonary edema Reviewed: Reviewed by Me Diagonstic Imaging: CT (without contrast) Plain Films/CT/US/NM/MRI: abdomen, pelvis Reviewed: Reviewed Night Desmond Study, Reviewed by Me (IVONNE CORDERO) Comments Report reviewed. Viewed by me. See report below: NAME: ABBIE [facility] REC#: [id number] PT STATUS: REG ER : 1930 PHYSICIAN: IVONNE CORDERO MD ADMIT DATE: 08/21/18/ER Signed Date of Exam: 08/21/18 CHEST 1 VIEW, AP/PA ONLY INDICATION: Chest pain. Comparison made with prior examination 06/14/2018. FINDINGS: There is cardiomegaly. There is some venous congestion. There are patchy bibasilar infiltrates. There is no pleural effusion or pneumothorax. Mediastinum is unremarkable. IMPRESSION: Patchy bibasilar infiltrates. Cardiomegaly and mild central pulmonary venous congestion. Dictated by: Dictated on workstation # [id number] Dict: 08/21/18637 Trans: 08/21/18 0700 Interpreted by: KAREN MCDUFFIE MD Electronically signed by: KAREN MCDUFFIE MD 08/21/[address] abdomen and pelvis discussed with the radiologist. There are inflammatory changes in the upper abdomen, possibly pancreatitis. See full report for details. Constipation was also suggested. (BRUNO MCCABE MD) Consults : Consulting Physician: TAMMIE RIVAS MD Consults Notes Discussed the case lab imaging findings with Dr. Rivas and he would be willing to follow with the patient inpatient. No immediate intervention for the bradycardia with history of sick sinus syndrome. (IVONNE CORDERO) Departure Communication (Admissions) Time/Spoke to Consulting Phy: 04:30 Discussed case lab imaging findings with Dr. Rivas. He is okay with an observation stay for cardiac workup. (IOVNNE CORDERO) Time/Spoke to Admitting Phy: 06:55 (BRUNO MCCABE MD) Impression Primary Impression: Chest pain Qualified Codes: R07.9 - Chest pain, unspecified Additional Impressions: Hypoglycemia Pancreatitis Qualified Codes: K85.90 - Acute pancreatitis without necrosis or infection, unspecified Urinary tract infection Qualified Codes: N39.0 - Urinary tract infection, site not specified Elevated transaminase level Acute renal failure Qualified Codes: N17.9 - Acute kidney failure, unspecified Hyperkalemia Disposition: ADMITTED INPATIENT Condition: Improved Admissions Decision to Admit Reason: Admit from ER (General) Decision to Admit/Date: Aug 21, 2018 Time/Decision to Admit Time: 05:10 (IVONNE CORDERO) Decision to Admit Reason: Admit from ER (General) Decision to Admit/Date: Aug 21, 2018 Time/Decision to Admit Time: 05:10 (BRUNO MCCABE MD) Departure-Patient Inst. Referrals: JONN SOW MD (PCP/Family) Primary Care Physician IVONNE CORDERO Aug 21, 2018 03:35 BRUNO MCCABE MD Aug 21, 2018 07:12
[2018-08-21 03:49] LABS: BASOPHILS % (AUTO) 1 % (0-10); EOSINOPHILS # (AUTO) 0.5 10^3/uL (0.0-0.3); EOSINOPHILS % (AUTO) 6 % (0-10); LYMPHOCYTES % (AUTO) 41 % (12-44); MEAN CORPUSCULAR HGB CONC 33 G/DL (32-36); MEAN CORPUSCULAR VOLUME 93 FL (80-99); MONOCYTES # (AUTO) 0.8 X 10^3 (0.0-1.0); MONOCYTES % (AUTO) 12 % (0-12); NEUTROPHILS # (AUTO) 2.9 X 10^3 (1.8-7.8); NEUTROPHILS % (AUTO) 40 % (42-75); RED CELL DISTRIBUTION WIDTH 14.3 % (10.0-14.5)
[2018-08-21 03:53] LABS: HEMATOCRIT 37 % (35-52); HEMOGLOBIN 12.3 G/DL (11.5-16.0); MEAN CORPUSCULAR HEMOGLOBIN 31 PG (25-34); PLATELET COUNT 50 10^3/uL (130-400); RED BLOOD COUNT 4.02 10^6/uL (4.35-5.85); WHITE BLOOD COUNT 7.9 10^3/uL (4.3-11.0)
[2018-08-21 04:15] LABS: ALBUMIN 3.6 GM/DL (3.2-4.5); ALKALINE PHOSPHATASE 140 U/L (40-136); BILIRUBIN,TOTAL 0.3 MG/DL (0.1-1.0); BUN/CREATININE RATIO 25; CALCIUM 9.7 MG/DL (8.5-10.1); CARBON DIOXIDE 18 MMOL/L (21-32); CHLORIDE 107 MMOL/L (98-107); CREATININE SERUM 1.61 MG/DL (0.60-1.30); GFR ESTIMATED 30; GLUCOSE 142 MG/DL (70-105); LIPASE 218 U/L (8-78); SODIUM 136 MMOL/L (135-145); TOTAL PROTEIN 8.3 GM/DL (6.4-8.2)
[2018-08-21 04:30] LABS: MYOGLOBIN SERUM 130.5 NG/ML (10.0-92.0)
[2018-08-21 04:50] LABS: INR 1.2 (0.8-1.4); PROTHROMBIN TIME PATIENT 14.9 SEC (12.2-14.7)
[2018-08-21 04:55] LABS: ALANINE AMINOTRANSFERASE 531 U/L (0-55); MAGNESIUM 2.6 MG/DL (1.8-2.4); POTASSIUM 5.1 MMOL/L (3.6-5.0)
[2018-08-21] MEDS ORDERED: cefTRIAXone FOR IV USE 1,000 MG in NS (IVPB) 50 ML IV ONE (05:00)
[2018-08-21 06:12] LABS: BILIRUBIN,URINE NEGATIVE (NEGATIVE); CLARITY,URINE CLEAR; COLOR,URINE YELLOW; GLUCOSE, URINE (UA) NEGATIVE (NEGATIVE); KETONES,URINE NEGATIVE (NEGATIVE); LEUKOCYTE ESTERASE ,URINE 2+ (NEGATIVE); NITRITE,URINE NEGATIVE (NEGATIVE); PH,URINE 6.5 (5-9); PROTEIN,URINE 3+ (NEGATIVE); UROBILINOGEN,URINE NORMAL (NORMAL)
[2018-08-21 06:40] LABS: BACTERIA,URINE TRACE /HPF
--- NOTE | 2018-08-21 06:56 | Diagnostic Imaging Report ---
INDICATION: Chest pain. Comparison made with prior examination 06/14/2018. FINDINGS: There is cardiomegaly. There is some venous congestion. There are patchy bibasilar infiltrates. There is no pleural effusion or pneumothorax. Mediastinum is unremarkable. IMPRESSION: Patchy bibasilar infiltrates. Cardiomegaly and mild central pulmonary venous congestion. Dictated by: Dictated on workstation # [id number]
[2018-08-21] MEDS ORDERED: CATHETER FLUSH 10 ML SYR IV PRN (08:00)
[2018-08-21] MEDS ORDERED: NS IV 1000 ML 1,000 ML IV ONE (08:00)
--- NOTE | 2018-08-21 08:32 | History & Physicial ---
History of Present Illness History of Present Illness Date of Admission Aug 21, 2018 at 07:15 I consulted on this patient on 08/21/18 08:32 Attending Physician Jonn Sow MD Admitting Physician Jonn Sow MD Consult TAMMIE REHMAN MD Allergies and Home Medications Allergies Coded Allergies: No Known Drug Allergies (Unverified , 03/17/18) Home Medications Amlodipine Besylate 5 Mg Tablet, 5 MG PO DAILY, (Reported) Apixaban 2.5 Mg Tablet, 2.5 MG PO BID, (Reported) Aspirin 81 Mg Tab.chew, 81 MG PO DAILY, (Reported) Atorvastatin Calcium 40 Mg Tablet, 40 MG PO HS, (Reported) Cefdinir 300 Mg Capsule, 300 MG PO BID Prescribed by: JONN SOW on 06/15/18 1006 Cephalexin 500 Mg Capsule, 500 MG PO TID Prescribed by: BRUNO HYATT on 07/31/18 0112 Cephalexin 500 Mg Capsule, 500 MG PO TID Prescribed by: BRUNO HYATT on 08/16/18 1410 Dronedarone HCl 400 Mg Tablet, 400 MG PO BID, (Reported) Furosemide 20 Mg Tablet, 20 MG PO DAILY PRN for SWELLING, (Reported) Insulin Aspart 300 Units/3 Ml Solution, SC AC, (Reported) 80-150 = 10 UNITS 151-200 = 15 UNITS 201-300 = 17 UNITS > 300 = 21 UNITS Insulin Glargine,Hum.rec.anlog 300 Unit/1 Ml Insuln.pen, 20 UNIT SQ HS, ( Reported) Lactobacillus Acidophilus 1 Each Capsule, 1 EACH PO TID Prescribed by: JONN SOW on 06/15/18 1006 Losartan Potassium 100 Mg Tablet, 100 MG PO DAILY, (Reported) Metoprolol Succinate 50 Mg Tab.er.24h, 50 MG PO DAILY Prescribed by: JONN SOW on 06/15/18 1006 Potassium Chloride 10 Meq Tablet.er, 10 MEQ PO DAILY PRN for WHEN TAKING FUROSEMIDE, (Reported) Past Rifqreo-Drxjxb-Eosren Hx Patient Social History Alcohol Use: Occasionally Uses Number of Drinks Today: DD Alcohol Beverage of Choice: Rum Recreational Drug Use: No Smoking Status: Never a Smoker 2nd Hand Smoke Exposure: No Recent Foreign Travel: No Contact w/other who traveled: No Recent Hopitalizations: Yes (ED VISITS FOR BLOOD SUGAR PROB) Recent Infectious Disease Expo: No Immunizations Up To Date Tetanus Booster (TDap): Unknown Pediatric: No Date of Pneumonia Vaccine: Jun 18, 2017 Date of Influenza Vaccine: Aug 08, 2017 Seasonal Allergies Seasonal Allergies: No Surgeries Yes (RIGHT FOOT SURGERY) Respiratory No Currently Using CPAP: No Currently Using BIPAP: No Cardiovascular Yes (STENTS, MONITOR PLACED BY DR. 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 Genitourinary Yes ( KIDNEY DISEASE, recurrent urinary tract infection) Renal Failure Gastrointestinal No Musculoskeletal Yes Arthritis Endocrine History of Endocrine Disorders: Yes Endocrine Disorders: Diabetes, Insulin dep HEENT History of HEENT Disorders: Yes HEENT Disorders: Cataract Loss of Vision: Denies Hearing Impairment: Hard of Hearing, Bilateral Hearing Aide Cancer No Psychosocial History of Psychiatric Problem: No Integumentary History of Skin or Integumenta: No Blood Transfusions History of Blood Disorders: No Adverse Reaction to a Blood Tr: No Family Medical History Significant Family History: Heart Disease, Diabetes, Hypertension, Stroke Family Hx: Alzheimer's disease 19 MOTHER, Arthritis 19 FATHER, 19 MOTHER, G8 BROTHER, G8 BROTHER, G8 BROTHER G8 SISTER G8 SISTER Cardiovascular disease 19 MOTHER, G8 BROTHER, Completed stroke 19 MOTHER, G8 SISTER Hypercholesterolemia 19 FATHER, G8 BROTHER, Hypertension 19 MOTHER, Myocardial infarction 19 FATHER, G8 BROTHER, Physical Exam Vital Signs Vital Signs - First Documented 08/21/18 07:26 Pulse Ox 94 Capillary Refill : Less Than 3 Seconds Height, Weight, BMI Height: 5'0" Weight: 113lbs. 8.0oz. 51.025430vg; 18.5 BMI Method:Stated Clinical Quality Measures AMI/AHF: ASA po Prior to arrival: No JONN SOW MD Aug 21, 2018 08:32
--- NOTE | 2018-08-21 08:39 | Diagnostic Imaging Report ---
INDICATION: Abdominal pain. EXAMINATION: CT abdomen/pelvis without contrast on 08/21/2018. COMPARISON: CT pelvis on 06/19/2013. FINDINGS: Diffuse patchy airspace opacities and coarsened interstitial changes are noted within the visualized lung bases. Trace bilateral effusions are also noted. There is atherosclerotic disease along the aorta as well as a tiny hiatal hernia. The visualized abdominal viscera is limited due to the lack of IV contrast. No gross abnormality is seen in the liver. The spleen is either surgically absent (given clips in the region) or markedly atrophied and is not well seen. Diffuse atherosclerotic disease throughout the abdomen is noted. The adrenal glands are slightly prominent, left greater than right, likely due to hyperplasia. The pancreatic head is slightly prominent with surrounding questioned mild fat stranding noted. Clinical correlation with amylase and lipase would be recommended to exclude acute pancreatitis. The remaining pancreas is not well seen, perhaps atrophied. The kidneys contain bilateral nonobstructive stones with cystic lesions bilaterally which are poorly characterized without contrast. The stomach wall is somewhat thickened versus underdistention. Clinical exclusion of an infectious or inflammatory gastritis would be recommended. Ulcerative disease also could cause this appearance. There are findings of moderate constipation but no obstructive process is seen. There is diverticulosis without evidence for diverticulitis. No free fluid or air in the abdomen or pelvis. Chronic fractures are noted in the pelvis. Osteopenia and degenerative disease are noted within the remaining visualized osseous structures with pars defects at L5, chronic in appearance. IMPRESSION: 1. Questioned mild fat stranding about the pancreatic head. Possible pancreatitis, correlate with clinical symptoms and laboratory values. Short term interval followup with contrast may provide better characterization of the region and exclude a possible mass as the area is prominent in appearance. 2. Post operative findings in the upper abdomen as described. The spleen is not identified. 3. The gallbladder is not seen and not mentioned above, likely surgically absent; however, clinical correlation is recommended, specially if there is right upper quadrant pain. 4. Nonobstructive stones in the right kidney with cystic lesions bilaterally, not well evaluated on this examination. These could be followed sonographically if clinically indicated. 5. Underdistended stomach with wall thickening, see above description. 6. Findings of likely mild pulmonary edema versus chronic interstitial thickening as described at the bases. Tiny adjacent effusions. 7. Findings of constipation with other incidental findings as discussed above. 8. The pertinent findings agree with the preliminary report. Dictated by: Dictated on workstation # [id number]
[2018-08-21] MEDS ORDERED: APIXABAN 2.5 MG (ELIQUIS) TABLET PO SCH (09:00)
[2018-08-21] MEDS: PANTOPRAZOLE 40 MG (PROTONIX) VIAL IV SCH (11:32)
[2018-08-21] MEDS: ASPIRIN E.C. 81 MG (ECOTRIN) TAB PO SCH (11:34)
[2018-08-21] MEDS ORDERED: ASPI-983 PO (11:46)
[2018-08-21] MEDS ORDERED: L.AC1CAP6 PO (11:46)
[2018-08-21] MEDS ORDERED: METO-387 PO (11:46)
[2018-08-21] MEDS ORDERED: DICL100G31 TOP (11:46)
[2018-08-21] MEDS ORDERED: LEVO250T46 PO (11:46)
[2018-08-21] MEDS ORDERED: CEPH500C PO (11:46)
[2018-08-21] MEDS ORDERED: AMLO10TA6 PO (11:46)
--- NOTE | 2018-08-21 12:33 | Consultation-Cardiology ---
HPI-Cardiology Cardiology Consultation Date of Consultation 08/21/18 Date of Admission Time Seen by Provider: 12:27 HPI 88 years old lady with extensive cardiac history, was brought to the emergency room after she was noted to be hypoglycemic. Patient was unable to provide any history, denied any chest pain. No palpitation, no syncope or near syncopal episode. Was noted to have hypoglycemia and elevated liver enzymes. She has been on antibiotic for the past few days for urinary tract infection. No fever or chills. No palpitation Home Medications & Allergies Allergies: Coded Allergies: No Known Drug Allergies (Unverified , 03/17/18) Home Medication List Reviewed: Yes DRT-Vrkqhn-Onnvjl Hx Patient Social History Marital Status: Employed/Student: retired Alcohol Use: Occasionally Uses Recreational Drug Use: No Smoking Status: Never a Smoker 2nd Hand Smoke Exposure: No Recent Foreign Travel: No Recent Infectious Disease Expo: No Recent Hopitalizations: Yes (ED VISITS FOR BLOOD SUGAR PROB) Immunizations Up To Date Tetanus Booster (TDap): Unknown Date of Pneumonia Vaccine: Jun 18, 2017 Date of Influenza Vaccine: Aug 08, 2017 Past Medical History past medical history as described below Family Medical History Significant Family History: Heart Disease, Diabetes, Hypertension, Stroke Family History: Alzheimer's disease 19 MOTHER, Arthritis 19 FATHER, 19 MOTHER, G8 BROTHER, G8 BROTHER, G8 BROTHER G8 SISTER G8 SISTER Cardiovascular disease 19 MOTHER, G8 BROTHER, Completed stroke 19 MOTHER, G8 SISTER Hypercholesterolemia 19 FATHER, G8 BROTHER, Hypertension 19 MOTHER, Myocardial infarction 19 FATHER, G8 BROTHER, Review of Systems Constitutional: see HPI, malaise, weakness EENTM: see HPI, no symptoms reported Respiratory: see HPI; No cough, No dyspnea on exertion, No hemoptysis, No orthopnea, No phlegm, No short of breath, No stridor, No wheezing, No other Cardiovascular: no symptoms reported, see HPI; No chest pain, No edema, No Hx of Intervention, No palpitations, No syncope, No vascular heart diseas, No other Gastrointestinal: No RUQ, No LUQ, No RLQ, No LLQ, No no symptoms reported; see HPI; No abdominal pain, No constipation, No diarrhea, No dysphagia, No hematemesis, No heartburn, No jaundice, No loss of appetite, No melena, No nausea, No vomiting, No other Genitourinary: no symptoms reported, see HPI Musculoskeletal: no symptoms reported, see HPI Skin: no symptoms reported, see HPI Psychiatric/Neurological: No Symptoms Reported, See HPI Reviewed Test Results Reviewed Test Results Lab Laboratory Tests Test 08/21/18 03:23 08/21/18 03:42 08/21/18 04:13 08/21/18 04:29 Range/Units Glucometer 164 H 142 H 70-110 MG/DL White Blood Count 7.9 4.3-11.0 10^3/uL Red Blood Count 4.02 L 4.35-5.85 10^6/uL Hemoglobin 12.3 11.5-16.0 G/DL Hematocrit 37 35-52 % Mean Corpuscular Volume 93 80-99 FL Mean Corpuscular Hemoglobin 31 25-34 PG Mean Corpuscular Hemoglobin Concent 33 32-36 G/DL Red Cell Distribution Width 14.3 10.0-14.5 % Platelet Count 50 L 130-400 10^3/uL Mean Platelet Volume 7.4-10.4 FL Neutrophils (%) (Auto) 40 L 42-75 % Lymphocytes (%) (Auto) 41 12-44 % Monocytes (%) (Auto) 12 0-12 % Eosinophils (%) (Auto) 6 0-10 % Basophils (%) (Auto) 1 0-10 % Neutrophils # (Auto) 2.9 1.8-7.8 X 10^3 Lymphocytes # (Auto) 3.0 1.0-4.0 X 10^3 Monocytes # (Auto) 0.8 0.0-1.0 X 10^3 Eosinophils # (Auto) 0.5 H 0.0-0.3 10^3/uL Basophils # (Auto) 0.0 0.0-0.1 10^3/uL Prothrombin Time 14.9 H 12.2-14.7 SEC INR Comment 1.2 0.8-1.4 Activated Partial Thromboplast Time 33 24-35 SEC Sodium Level 136 135-145 MMOL/L Potassium Level 5.1 H 3.6-5.0 MMOL/L Chloride Level 107 98-107 MMOL/L Carbon Dioxide Level 18 L 21-32 MMOL/L Anion Gap 11 5-14 MMOL/L Blood Urea Nitrogen 41 H 7-18 MG/DL Creatinine 1.61 H 0.60-1.30 MG/DL Estimat Glomerular Filtration Rate 30 BUN/Creatinine Ratio 25 Glucose Level 142 H 70-105 MG/DL Calcium Level 9.7 8.5-10.1 MG/DL Corrected Calcium 10.0 8.5-10.1 MG/DL Magnesium Level 2.6 H 1.8-2.4 MG/DL Total Bilirubin 0.3 0.1-1.0 MG/DL Aspartate Amino Transf (AST/SGOT) 577 H 5-34 U/L Alanine Aminotransferase (ALT/SGPT) 531 H 0-55 U/L Alkaline Phosphatase 140 H 40-136 U/L Myoglobin 130.5 H 10.0-92.0 NG/ML Troponin I < 0.30 <0.30 NG/ML Total Protein 8.3 H 6.4-8.2 GM/DL Albumin 3.6 3.2-4.5 GM/DL Lipase 218 H 8-78 U/L B-Type Natriuretic Peptide 245.9 H <100.0 PG/ML Test 08/21/18 06:00 08/21/18 11:31 Range/Units Urine Color YELLOW Urine Clarity CLEAR Urine pH 6.5 5-9 Urine Specific [place] 1.015 L 1.016-1.022 Urine Protein 3+ H NEGATIVE Urine Glucose (UA) NEGATIVE NEGATIVE Urine Ketones NEGATIVE NEGATIVE Urine Nitrite NEGATIVE NEGATIVE Urine Bilirubin NEGATIVE NEGATIVE Urine Urobilinogen NORMAL NORMAL MG/DL Urine Leukocyte Esterase 2+ H NEGATIVE Urine RBC (Auto) 2+ H NEGATIVE Urine RBC 10-25 H /HPF Urine WBC 5-10 H /HPF Urine Squamous Epithelial Cells 2-5 /HPF Urine Crystals NONE /LPF Urine Bacteria TRACE /HPF Urine Casts NONE /LPF Urine Mucus NEGATIVE /LPF Urine Culture Indicated YES Glucometer 181 H 70-110 MG/DL Physical Exam Vital Signs Vital Signs - First Documented 08/21/18 07:26 Pulse Ox 94 Capillary Refill : Less Than 3 Seconds Height, Weight, BMI Height: 5'0" Weight: 113lbs. 8.0oz. 51.173597ge; 18.5 BMI Method:Stated General Appearance: No Apparent Distress, WD/WN Eyes: Bilateral Eye Normal Inspection, Bilateral Eye PERRL, Bilateral Eye EOMI HEENT: PERRL/EOMI, TMs Normal, Normal ENT Inspection, Pharynx Normal Neck: Full Range of Motion, Normal Inspection, Non Tender, Supple, Carotid Bruit Respiratory: Chest Non Tender, Lungs Clear, Normal Breath Sounds, No Accessory Muscle Use, No Respiratory Distress Cardiovascular: No Edema, No Gallop, No JVD, No Murmur, Normal Peripheral Pulses, Bradycardia Gastrointestinal: Normal Bowel Sounds, No Organomegaly, No Pulsatile Mass, Non Tender, Soft Back: Normal Inspection, No CVA Tenderness, No Vertebral Tenderness Extremity: Normal Capillary Refill, Normal Inspection, Normal Range of Motion, Non Tender, No Calf Tenderness, No Pedal Edema Neurologic/Psychiatric: Alert, Oriented x3, No Motor/Sensory Deficits, Normal Mood/Affect Skin: Normal Color, Warm/Dry Lymphatic: No Adenopathy A/P-Cardiology Admission Diagnosis Acute pancreatitis Acute hepatitis Hypoglycemia Coronary artery disease Assessment/Plan Hypoglycemia, labile blood sugar, history of diabetes mellitus, managed by primary care physician Acute hepatitis, elevated lipase, questionable pancreatitis, I will discontinue oral anticoagulation for now and hold aspirin and monitor amylase and lipase Bradycardia, asymptomatic. Continue to monitor heart rate Coronary artery disease-left heart catheterization on 04/04/2013 revealing multivessel disease. Patient had Promus 2.5 x 8 mm stent to LAD, Promus 2.25 x 12 mm stent to diagonal, and complex intervention to the RCA using Promus stents x3, 2.75 x 16 mm, 3.0 x 38 mm, and 3.0 x 12 mm, done by Dr. Vargas at [place]. continue to monitor at this time, no changes are recommended TIA, left sided weakness occurred in November 2017, workup showed unremarkable MRI , resolved and reporting improvement. Continue to monitor [id number] score is 5, yearly risk of stroke without oral anticoagulation is 6.5 percent. Maintained on Eliquis, Multaq, history of Linq implant which reached ANNY in July 2017. Hold anticoagulation at this time Intolerance to beta blockers secondary to bradycardia and dizziness. Continue to monitor Hypertension, continue to monitor blood pressure Hyperlipidemia, hold medication and monitor lipids Renal insufficiency, acute on chronic renal failure, continue on IV fluid and monitor Carotid artery stenosis-carotid duplex done in the office in May 2014 revealed significant left ICA stenosis. CTA of the neck showed significant stenosis on the left carotid artery, 60-80 percent. Otherwise mild disease on the right side. Patient was referred to Dr. Correia who recommended monitoring at this time. Monitored by Dr. Correia at [place] Clinical Quality Measures AMI/AHF: ASA po Prior to arrival: TAMMIE Wooten MD Aug 21, 2018 12:33
--- NOTE | 2018-08-21 13:06 | Pulmonary Consultation ---
History of Present Illness History of Present Illness Date of Consultation 08/21/18 13:01 Time Seen by Provider: 13:01 Date of Admission History of Present Illness 88yo patient with hx of recent UTI on out patient abx presented to ED with MS changes and found to be hypoglycemic with BS 29. She denies any fevers chills cough shortness of breath nausea vomiting or diarrhea. Allergies and Home Medications Allergies Coded Allergies: No Known Drug Allergies (Unverified , 03/17/18) Home Medications Amlodipine Besylate 10 Mg Tablet, 10 MG PO HS, (Reported) Apixaban 2.5 Mg Tablet, 2.5 MG PO BID, (Reported) LAST FILLED #60 18 Aspirin 81 Mg Tablet.dr, 81 MG PO DAILY, (Reported) Atorvastatin Calcium 40 Mg Tablet, 40 MG PO HS, (Reported) Diclofenac Sodium 100 Gm Gel..gram., TOP QID PRN for ARTHRITIS PAIN, (Reported) Dronedarone HCl 400 Mg Tablet, 400 MG PO BID, (Reported) LAST FILLED #60 05-05-18 Furosemide 20 Mg Tablet, 20 MG PO DAILY PRN for SWELLING, (Reported) Insulin Aspart 300 Units/3 Ml Solution, SC AC, (Reported) 80-150 = 10 UNITS 151-200 = 15 UNITS 201-300 = 17 UNITS > 300 = 21 UNITS Insulin Glargine,Hum.rec.anlog 300 Unit/1 Ml Insuln.pen, 20 UNIT SQ HS, ( Reported) L.acidoph & Paracasei,B.lactis 1 Each Capsule, 1 CAP PO TID, (Reported) Levofloxacin 250 Mg Tablet, PO UD, (Reported) 7 DAY SUPPLY FILLED 08-20-18 TAKE 2 (250MG) TABS DAY 1 THEN TAKE 1 (250MG) TAB DAYS 2-7 Losartan Potassium 100 Mg Tablet, 100 MG PO DAILY, (Reported) LAST FILLED #90 18 Metoprolol Succinate 25 Mg Tab.er.24h, 50 MG PO DAILY, (Reported) LAST FILLED #90 18 Potassium Chloride 10 Meq Tablet.er, 10 MEQ PO DAILY PRN for WHEN TAKING FUROSEMIDE, (Reported) Past Ohgvgkn-Dxxzxa-Fndymk Hx Patient Social History Alcohol Use: Occasionally Uses Number of Drinks Today: DD Alcohol Beverage of Choice: Rum Recreational Drug Use: No Smoking Status: Never a Smoker 2nd Hand Smoke Exposure: No Recent Foreign Travel: No Contact w/Someone Who Travel: No Recent Infectious Disease Expo: No Recent Hopitalizations: Yes (ED VISITS FOR BLOOD SUGAR PROB) Immunizations Up To Date Tetanus Booster (TDap): Unknown PED Vaccines UTD: No Date of Pneumonia Vaccine: Jun 18, 2017 Date of Influenza Vaccine: Aug 08, 2018 Seasonal Allergies Seasonal Allergies: No Past Medical History Surgeries: Yes (RIGHT FOOT SURGERY) Respiratory: No Currently Using CPAP: No Currently Using BIPAP: No Cardiac: Yes (STENTS, MONITOR PLACED BY DR. REHMAN) Atrial Fibrillation, Heart Attack, Hypertension, Peripheral Vascular Neurological: Yes (SEIZURES WHEN BLOOD SUGAR IS HIGH) Stroke Reproductive Disorders: No [employer] History: Menopausal Sexually Transmitted Disease: No HIV/AIDS: No Genitourinary: Yes ( KIDNEY DISEASE, recurrent urinary tract infection) Renal Failure Gastrointestinal: No Musculoskeletal: Yes Arthritis Endocrine: Yes Diabetes, Insulin dep HEENT: Yes Cataract Loss of Vision: Denies Hearing Impairment: Hard of Hearing, Bilateral Hearing Aide Cancer: No Psychosocial: No Integumentary: No Blood Disorders: No Adverse Reaction/Blood Tranf: No Family Medical History Alzheimer's disease 19 MOTHER, Arthritis 19 FATHER, 19 MOTHER, G8 BROTHER, G8 BROTHER, G8 BROTHER G8 SISTER G8 SISTER Cardiovascular disease 19 MOTHER, G8 BROTHER, Completed stroke 19 MOTHER, G8 SISTER Hypercholesterolemia 19 FATHER, G8 BROTHER, Hypertension 19 MOTHER, Myocardial infarction 19 FATHER, G8 BROTHER, Heart Disease, Diabetes, Hypertension, Stroke Sepsis Event Evaluation Height, Weight, BMI Height: 5'0.00" Weight: 106lbs. 0.0oz. 48.065229jt; 20.7 BMI Method:Stated Exam Exam Vital Signs Date Time Temp Pulse Resp B/P (MAP) Pulse Ox O2 Delivery O2 Flow Rate FiO2 08/21/18 12:53 96 Room Air 08/21/18 08:00 65 08/21/18 08:00 64 13 155/63 (93) 97 Room Air 08/21/18 07:26 63 18 141/52 (81) 94 08/21/18 03:18 Room Air 08/21/18 03:18 42 17 126/49 (74) Room Air I & O 08/21/18 07:00 Intake Total 50 ml Balance 50 ml Height & Weight Height: 5'0.00" Weight: 106lbs. 0.0oz. 48.230682mp; 20.7 BMI Method:Stated General Appearance: No Apparent Distress, WD/WN HEENT: PERRL/EOMI, TMs Normal, Normal ENT Inspection, Pharynx Normal Neck: Full Range of Motion, Normal Inspection, Non Tender, Supple, Carotid Bruit Respiratory: Chest Non Tender, Lungs Clear, Normal Breath Sounds, No Accessory Muscle Use, No Respiratory Distress Cardiovascular: No Edema, No Gallop, No JVD, No Murmur, Normal Peripheral Pulses, Bradycardia Capillary Refill: Less Than 3 Seconds Extremity: Normal Capillary Refill, Normal Inspection, Normal Range of Motion, Non Tender, No Calf Tenderness, No Pedal Edema Neurologic/Psychiatric: Alert, Oriented x3, No Motor/Sensory Deficits, Normal Mood/Affect Skin: Normal Color, Warm/Dry Lymphatic: No Adenopathy Results Lab Laboratory Tests 08/21/18 03:42 Assessment/Plan Assessment/Plan Acute pancreatitis -IVF at 150cc/hr -monitor elevated LFTs and bilirubin -Check ammonia level -US Abd -Agree with holding anticoagulation for now Hypoglycemia -monitor Bradycardia with hx of CAD -Cardiology following -Monitor Hx of TIA LACHO BROWER DO Aug 21, 2018 13:06
[2018-08-22] VITALS (16 sets, daily range): BP systolic 113–199; BP diastolic 47–84
[2018-08-22 04:23] LABS: HEMOGLOBIN 11.7 G/DL (11.5-16.0); MEAN PLATELET VOLUME 10.4 FL (7.4-10.4); RED BLOOD COUNT 3.89 10^6/uL (4.35-5.85); RED CELL DISTRIBUTION WIDTH 13.8 % (10.0-14.5); WHITE BLOOD COUNT 7.6 10^3/uL (4.3-11.0)
[2018-08-22 04:55] LABS: ALBUMIN 3.1 GM/DL (3.2-4.5); BILIRUBIN,TOTAL 0.3 MG/DL (0.1-1.0); CALCIUM 9.5 MG/DL (8.5-10.1); CREATININE SERUM 1.16 MG/DL (0.60-1.30); POTASSIUM 4.3 MMOL/L (3.6-5.0); TOTAL PROTEIN 5.7 GM/DL (6.4-8.2)
--- NOTE | 2018-08-22 05:28 | Pulmonary Progress Note ---
Subjective Time Seen by a Provider: 05:37 Subjective/Events-last exam PT appears to be improving. She denies N/V Sepsis Event Evaluation Height, Weight, BMI Height: 5'0.00" Weight: 106lbs. 0.0oz. 48.513488ge; 20.7 BMI Method:Stated Exam Exam Vital Signs Date Time Temp Pulse Resp B/P (MAP) Pulse Ox O2 Delivery O2 Flow Rate FiO2 08/22/18 04:00 98.0 60 14 160/84 (109) 94 Room Air 08/22/18 01:00 66 08/22/18 00:00 96 Room Air 08/22/18 00:00 97.6 58 16 160/52 (88) 98 Room Air 08/21/18 22:01 72 08/21/18 20:00 69 17 161/70 (100) 96 Room Air 08/21/18 20:00 98 Room Air 08/21/18 19:54 97.0 69 16 156/69 (98) 98 Room Air 08/21/18 16:00 95 Room Air 08/21/18 16:00 65 14 149/66 (93) 95 Room Air 08/21/18 15:45 68 7 155/73 (100) 97 Room Air 08/21/18 15:30 68 11 155/70 (98) 97 Room Air 08/21/18 15:00 71 18 151/63 (92) Room Air 08/21/18 14:45 67 13 143/56 (85) 96 Room Air 08/21/18 13:00 67 11 94 Room Air 08/21/18 13:00 67 08/21/18 12:53 96 Room Air 08/21/18 12:00 64 7 99 Room Air 08/21/18 11:00 64 7 96 Room Air 08/21/18 11:00 98.4 08/21/18 10:00 91 12 100 Room Air 08/21/18 09:00 65 18 99 Room Air 08/21/18 08:00 65 08/21/18 08:00 64 13 155/63 (93) 97 Room Air 08/21/18 07:40 98.1 65 12 155/63 (93) 97 Room Air 08/21/18 07:26 63 18 141/52 (81) 94 I & O 08/22/18 07:00 Intake Total 1250 ml Balance 1250 ml Height & Weight Height: 5'0.00" Weight: 106lbs. 0.0oz. 48.539165oa; 20.7 BMI Method:Stated General Appearance: WD/WN, Anxious, Moderate Distress HEENT: PERRL/EOMI, TMs Normal, Normal ENT Inspection, Pharynx Normal Neck: Full Range of Motion, Normal Inspection, Non Tender, Supple, Carotid Bruit Respiratory: Chest Non Tender, Lungs Clear, Normal Breath Sounds, No Accessory Muscle Use, No Respiratory Distress Cardiovascular: No Edema, No Gallop, No JVD, No Murmur, Normal Peripheral Pulses, Bradycardia Capillary Refill: Less Than 3 Seconds Extremity: Normal Capillary Refill, Normal Inspection, Normal Range of Motion, Non Tender, No Calf Tenderness, No Pedal Edema Neurologic/Psychiatric: Alert, Oriented x3, No Motor/Sensory Deficits, Normal Mood/Affect Skin: Normal Color, Warm/Dry Lymphatic: No Adenopathy Results Lab Laboratory Tests 08/21/18 03:42 08/22/18 04:15 Assessment/Plan Assessment/Plan Acute pancreatitis pt denies abdominal pain n/v - improved -IVF at 150cc/hr - Restart IVF and give a liter bolus -US of abdomen pending -monitor elevated LFTs and bilirubin - improved -US Abd -Agree with holding anticoagulation for now Metabolic encephalopathy has improved -Ammonia is 40 will hold of on giving Lactulose for now since MS has improved. -Continue to monitor HTN -Start Norvasc PO -Hydralazine 10 mg IV Q 6 Hypoglycemia -monitor Bradycardia with hx of CAD -Cardiology following -Monitor Hx of TIA 06:30 UPDATE: CALLED TO PATIENTS ROOM STAT SECONDARY TO ACUTE RESPIRATORY DISTRESS. WHEN I WALKED INTO PATIENTS ROOM SHE WAS SETTING UP AND ACUTELY AGITATED. HER RR WAS IN THE 30'S WITH SHALLOW BREATHING SHE APPEARED TO BE HAVING A PANIC ATTACK. WHEN SP02 WAS READING CORRECTLY HER SP02 WAS IN THE 90' S. THIS HAPPENED WHILE GIVING LR BOLUS AND AFTER 10MG OF HYDRALAZINE FOR HYPERTENSION. PT WAS PLACED ON A NRB AND GIVEN 1MG OF ATIVAN. TOTAL TIME SPENT WITH PATIENT IS 60MIN. -ACUTE RESPIRATORY DISTRESS - I SUSPECT PANIC ATTACK -WILL REPEAT CXR -ABG, TROPONINS, AND EKG LACHO BROWER DO Aug 22, 2018 05:28
[2018-08-22] MEDS ORDERED: hydrALAZINE (APESOLINE) 20 MG/ML VIAL IV PRN (05:30)
[2018-08-22] MEDS ORDERED: LACTATED RINGERS 1,000 ML IV SCH (05:45)
[2018-08-22] MEDS ORDERED: morphine INJ 10 MG/ML 1ML (SYR OR VIAL) IVP PRN (06:15)
[2018-08-22] MEDS ORDERED: LORazepam INJ 2 MG/ML (ATIVAN) VIAL ONE (06:18)
[2018-08-22] MEDS ORDERED: LORazepam INJ 2 MG/ML (ATIVAN) VIAL IVP PRN (06:30)
--- NOTE | 2018-08-22 08:24 | Progress Note ---
Objective Exam Last Set of Vital Signs Vital Signs Date Time Temp Pulse Resp B/P (MAP) Pulse Ox O2 Delivery O2 Flow Rate FiO2 08/22/18 06:44 70 18 149/56 (87) 99 Non Rebreather 15.00 08/22/18 04:00 98.0 Capillary Refill : Less Than 3 Seconds I&O Intake and Output 08/22/18 00:00 Intake Total 1300 ml Balance 1300 ml Intake Oral 250 ml IV Total 1050 ml # Voids 8 Daily Weight Change No Results Lab Laboratory Tests 08/21/18 11:31: Glucometer 181H 08/21/18 13:58: Glucometer 173H 08/21/18 16:10: Glucometer 143H 08/21/18 18:03: Glucometer 121H 08/21/18 19:51: Glucometer 358H 08/21/18 22:26: Glucometer 245H 08/22/18 04:15: White Blood Count 7.6, Red Blood Count 3.89L, Hemoglobin 11.7, Hematocrit 36, Mean Corpuscular Volume 93, Mean Corpuscular Hemoglobin 30, Mean Corpuscular Hemoglobin Concent 33, Red Cell Distribution Width 13.8, Platelet Count 386, Mean Platelet Volume 10.4, Sodium Level 140, Potassium Level 4.3, Chloride Level 111H, Carbon Dioxide Level 20L, Anion Gap 9, Blood Urea Nitrogen 26H, Creatinine 1.16, Estimat Glomerular Filtration Rate 44, BUN/Creatinine Ratio 22 , Glucose Level 138H, Calcium Level 9.5, Corrected Calcium 10.2H, Total Bilirubin 0.3, Aspartate Amino Transf (AST/SGOT) 128H, Alanine Aminotransferase (ALT/SGPT) 264H, Alkaline Phosphatase 116, Ammonia 40H, Total Protein 5.7L, Albumin 3.1L, Triglycerides Level 92, Cholesterol Level 150, LDL Cholesterol Direct 76, VLDL Cholesterol 18, HDL Cholesterol 51, Amylase Level 83, Lipase 110H Clinical Quality Measures AMI/AHF: ASA po Prior to arrival: No DVT/VTE Risk/Contraindication: Risk Factor Score Per Nursin RFS Level Per Nursing on Admit: 2=Moderate JONN YAO MD Aug 22, 2018 08:24
--- NOTE | 2018-08-22 08:37 | Diagnostic Imaging Report ---
INDICATION: Respiratory distress. TIME OF EXAM: 6:51 AM Correlation is made with prior study from earlier same day. FINDINGS: The heart size is stable. Mild congestive changes are noted that have slightly increased since earlier today. No effusion or pneumothorax is seen. IMPRESSION: There has been some increase in congestive changes when compared with study several hours earlier. Dictated by: Dictated on workstation # [id number]
--- NOTE | 2018-08-22 08:43 | Diagnostic Imaging Report ---
INDICATION: Chest pain. Time of exam: 3:34 AM Correlation is made with prior study one day earlier. Heart is enlarged but stable. Monitoring device overlies the left heart. Slightly nodular density overlies the right base which was not present on prior exam; this may represent nipple shadow. Otherwise, the lungs are clear. No effusion or pneumothorax is seen. IMPRESSION: No acute cardiopulmonary process is detected. Dictated by: Dictated on workstation # [id number]
[2018-08-22] MEDS: PANTOPRAZOLE 40 MG (PROTONIX) VIAL IV SCH (09:27)
[2018-08-22] MEDS: amLODIPine 5 MG (NORVASC) TAB PO SCH (09:28)
[2018-08-22] MEDS: LACTATED RINGERS 1,000 ML IV SCH ×2 (09:28→18:20)
[2018-08-22] MEDS: ASPIRIN E.C. 81 MG (ECOTRIN) TAB PO SCH (09:28)
[2018-08-22 10:52] LABS: ABG BASE EXCESS -3.2 MMOL/L (-2.5-2.5); ABG OXYGEN SATURATION 93 % (94-100); ABG PCO2 30 MMHG (35-45); ABG PH 7.44 (7.37-7.43); ABG PO2 62 MMHG (79-93); ABG TCO2 21.2 MMOL/L (21.0-31.0); ALLENS TEST YES-POS
[2018-08-22 10:53] LABS: INSPIRED O2 RM AIR; PATIENT TEMP 98.5; VENTILATOR NO
--- NOTE | 2018-08-22 11:33 | Diagnostic Imaging Report ---
PROCEDURE: US abdomen complete. TECHNIQUE: Multiple real-time grayscale images were obtained over the abdomen in various projections. INDICATION: Pancreatitis. FINDINGS: The liver is normal in size at 12.6 cm. No discrete liver mass is identified. Gallbladder is surgically absent. No biliary ductal dilatation is seen. There appears to be postsurgical changes to the pancreas. Pancreatic head is unremarkable. No peripancreatic fluid collection is seen. The spleen appears to be surgically absent. Aorta and IVC are unremarkable. Right and left kidneys are unremarkable apart from a 17 mm cyst in the left kidney. There is no ascites. IMPRESSION: 1. Status post cholecystectomy. 2. Status post splenectomy. There also appears to be postsurgical changes to the pancreas. No peripancreatic fluid collection is detected. 3. Left renal cyst. Dictated by: Dictated on workstation # [id number]
--- NOTE | 2018-08-22 11:41 | Cardiology Progress Note ---
Subjective Date Seen by Provider: Aug 22, 2018 Time Seen by Provider: 11:38 Subjective/Events-last exam Patient is in bed, feeling better now, had an episode of shortness of breath, improved at this point Review of Systems General: No Chills, No Night Sweats, No Fatigue, No Malaise, No Appetite, No Other HEENT: No Head Aches, No Visual Changes, No Eye Pain, No Ear Pain, No Dysphasia , No Sinus Congestion, No Post Nasal Drip, No Sore Throat, No Other Pulmonary: No Dyspnea, No Cough, No Pleuritic Chest Pain, No Other Cardiovascular: No: Chest Pain, Palpitations, Orthopnea, Paroxysmal Noc. Dyspnea, Edema, Lt Headedness, Other Objective-Cardiology Exam Last Set of Vital Signs Vital Signs 08/22/18 08/22/18 08/22/18 04:00 10:00 11:03 Temp 98.0 Pulse 70 Resp 21 B/P (MAP) 154/59 (90) Pulse Ox 98 O2 Delivery Nasal Cannula O2 Flow Rate 2.00 Capillary Refill : Less Than 3 Seconds I&O Intake and Output 08/22/18 00:00 Intake Total 1300 ml Balance 1300 ml Intake Oral 250 ml IV Total 1050 ml # Voids 8 Daily Weight Change No General: Alert, Oriented X3, Cooperative HEENT: Atraumatic, PERRLA Neck: Supple, No JVD, No Thyromegaly Lungs: Clear to Auscultation, Normal Air Movement Heart: Regular Rate, Normal S1, Normal S2, No Murmurs Abdomen: Normal Bowel Sounds, Soft, No Tenderness, No Hepatosplenomegaly, No Masses Extremities: No Clubbing, No Cyanosis, No Edema, Normal Pulses, No Tenderness/ Swelling Skin: No Rashes, No Breakdown, No Significant Lesion Neuro: Normal Gait, Normal Speech, Strength at 5/5 X4 Ext, Normal Tone, Sensation Intact Psych/Mental Status: Mental Status NL, Mood NL Results Lab Laboratory Tests 08/22/18 04:15 A/P-Cardiology Admission Diagnosis Acute pancreatitis Acute hepatitis Hypoglycemia Coronary artery disease Assessment/Plan Acute hepatitis, acute pancreatitis, improving, feeling better, continue to monitor Status post hypoglycemia, labile blood sugar, better at this time, managed by primary care team Bradycardia, asymptomatic. Continue to monitor heart rate Coronary artery disease-left heart catheterization on 04/04/2013 revealing multivessel disease. Patient had Promus 2.5 x 8 mm stent to LAD, Promus 2.25 x 12 mm stent to diagonal, and complex intervention to the RCA using Promus stents x3, 2.75 x 16 mm, 3.0 x 38 mm, and 3.0 x 12 mm, done by Dr. Vargas at [place]. continue to monitor at this time, no changes are recommended TIA, left sided weakness occurred in November 2017, workup showed unremarkable MRI , resolved and reporting improvement. Continue to monitor [id number] score is 5, yearly risk of stroke without oral anticoagulation is 6.5 percent. Maintained on Eliquis, Multaq, history of Linq implant which reached ANNY in July 2017. Hold anticoagulation at this time Intolerance to beta blockers secondary to bradycardia and dizziness. Continue to monitor Hypertension, continue to monitor blood pressure Hyperlipidemia, hold medication and monitor lipids Renal insufficiency, acute on chronic renal failure, continue on IV fluid and monitor Carotid artery stenosis-carotid duplex done in the office in May 2014 revealed significant left ICA stenosis. CTA of the neck showed significant stenosis on the left carotid artery, 60-80 percent. Otherwise mild disease on the right side. Patient was referred to Dr. Correia who recommended monitoring at this time. Monitored by Dr. Correia at [place] Clinical Quality Measures AMI/AHF: ASA po Prior to arrival: No DVT/VTE Risk/Contraindication: Risk Factor Score Per Nursin RFS Level Per Nursing on Admit: 2=Moderate TAMMIE REHMAN MD Aug 22, 2018 11:41
[2018-08-22] MEDS ORDERED: PATIENT MAY USE OWN MED,SINGLE MED PO SCH (13:30)
[2018-08-22] MEDS ORDERED: inSUlin ASPART (NovoLOG) 1 UNIT/0.01 ML (CHARGE PER UNIT) ONE ×2 (14:00→18:23)
[2018-08-22] MEDS ORDERED: inSUlin ASPART (NovoLOG) 1 UNIT/0.01 ML (CHARGE PER UNIT) SC SCH ×2 (14:30)
[2018-08-22] MEDS: inSUlin ASPART (NovoLOG) 1 UNIT/0.01 ML (CHARGE PER UNIT) SC SCH (18:25)
[2018-08-22] MEDS: inSUlin DETERMIR 1 UNIT/0.01 ML (LEVEMIR) CHARGE PER UNIT SQ SCH (20:31)
[2018-08-22] MEDS ORDERED: [UNRECOGNIZED DRUG - OTHER] SQ SCH (21:00)
[2018-08-22] MEDS ORDERED: INSULIN GLARGINE HUM REC ANLOG 20 UNIT SQ SCH (21:00)
[2018-08-23] VITALS (9 sets, daily range): BP systolic 124–171; BP diastolic 55–74
[2018-08-23] MEDS: inSUlin ASPART (NovoLOG) 1 UNIT/0.01 ML (CHARGE PER UNIT) SC SCH ×4 (06:37→20:47)
--- NOTE | 2018-08-23 06:50 | Pulmonary Progress Note ---
Sepsis Event Evaluation Height, Weight, BMI Height: 5'0.00" Weight: 112lbs. 8.0oz. [id number]; 20.7 BMI Method:Stated Exam Exam Vital Signs Date Time Temp Pulse Resp B/P (MAP) Pulse Ox O2 Delivery O2 Flow Rate FiO2 08/23/18 06:00 69 19 148/62 (90) Room Air 08/23/18 05:00 76 20 148/62 (90) Room Air 08/23/18 04:00 98.6 73 16 148/62 (90) 93 Room Air 08/23/18 04:00 93 Room Air 08/23/18 01:00 70 08/23/18 00:00 93 Room Air 08/23/18 00:00 71 28 145/55 (85) Room Air 08/23/18 00:00 98.3 19 93 Room Air 08/22/18 20:00 92 Room Air 08/22/18 20:00 68 22 160/56 (90) Room Air 08/22/18 19:51 98.9 73 16 188/75 (112) 92 Room Air 08/22/18 19:00 71 08/22/18 18:00 82 22 170/62 (98) Room Air 08/22/18 16:00 98.8 Nasal Cannula 2.00 08/22/18 16:00 99 Nasal Cannula 2.00 08/22/18 14:00 98.7 Nasal Cannula 2.00 08/22/18 13:00 68 08/22/18 13:00 66 18 140/55 (83) 98 Room Air 08/22/18 12:00 59 20 140/55 (83) 100 Room Air 08/22/18 12:00 98 Room Air 08/22/18 11:03 Nasal Cannula 2.00 08/22/18 11:00 78 20 113/63 (80) 87 Room Air 08/22/18 10:00 70 21 154/59 (90) 98 Room Air 08/22/18 09:00 98 Room Air 08/22/18 09:00 70 16 151/60 (90) 97 Room Air 08/22/18 08:30 67 27 144/47 (79) 96 Room Air 08/22/18 08:00 98 Room Air 08/22/18 07:45 68 40 154/59 (90) 98 Room Air 08/22/18 07:00 67 I & O 08/23/18 07:00 Intake Total 750 ml Output Total 150 ml Balance 600 ml Height & Weight Height: 5'0.00" Weight: 112lbs. 8.0oz. 51.879888nq; 20.7 BMI Method:Stated General Appearance: WD/WN, Mild Distress HEENT: PERRL/EOMI, Normal ENT Inspection, Pharynx Normal, Moist Mucous Membranes Neck: Full Range of Motion, Normal Inspection Respiratory: Chest Non Tender, Lungs Clear, Normal Breath Sounds, No Accessory Muscle Use, No Respiratory Distress Cardiovascular: Regular Rate, Rhythm, Other (mild bipedal edema 1+ pitting at the ankle) Capillary Refill: Less Than 3 Seconds Extremity: Normal Capillary Refill, Non Tender, No Calf Tenderness Neurologic/Psychiatric: Alert, Oriented x3 Skin: Normal Color, Warm/Dry Lymphatic: No Adenopathy Results Lab Laboratory Tests 08/22/18 04:15 Assessment/Plan Assessment/Plan Acute pancreatitis pt denies abdominal pain n/v - improved -PT has no IV access -US of abdomen pending -monitor elevated LFTs and bilirubin - improved -US Abd -Agree with holding anticoagulation for now Metabolic encephalopathy has improved -Continue to monitor HTN -Norvasc -Hydralazine Hypoglycemia -monitor Bradycardia with hx of CAD -Cardiology following -Monitor Hx of TIA D/w Dr. Sow about PICC line. PT currently has no IV access. Transfer to [facility] if ok with Dr. Sow I am going to sign off once patient is transferred out of ICU. Please call with any questions or concerns. LACHO BROWER DO Aug 23, 2018 06:50
[2018-08-23 08:47] LABS: BILIRUBIN,TOTAL 0.2 MG/DL (0.1-1.0); CALCIUM 9.4 MG/DL (8.5-10.1); CREATININE SERUM 1.13 MG/DL (0.60-1.30); POTASSIUM 4.6 MMOL/L (3.6-5.0); TOTAL PROTEIN 5.6 GM/DL (6.4-8.2)
[2018-08-23] MEDS: PANTOPRAZOLE 40 MG (PROTONIX) TAB PO SCH (09:18)
[2018-08-23] MEDS: ASPIRIN E.C. 81 MG (ECOTRIN) TAB PO SCH (09:18)
[2018-08-23] MEDS: amLODIPine 5 MG (NORVASC) TAB PO SCH (09:18)
--- NOTE | 2018-08-23 09:46 | Progress Note ---
Objective Exam Last Set of Vital Signs Vital Signs Date Time Temp Pulse Resp B/P (MAP) Pulse Ox O2 Delivery O2 Flow Rate FiO2 08/23/18 09:00 100 Nasal Cannula 2.00 08/23/18 08:00 70 18 124/59 (80) 08/23/18 04:00 98.6 Capillary Refill : Less Than 3 Seconds I&O Intake and Output 08/23/18 00:00 Intake Total 750 ml Output Total 150 ml Balance 600 ml Intake Oral 750 ml Output Urine Total 150 ml # Voids 4 General: Alert, Oriented X3, Cooperative HEENT: Atraumatic, PERRLA Neck: Supple, No JVD, No Thyromegaly Lungs: Clear to Auscultation, Normal Air Movement Heart: Regular Rate, Normal S1, Normal S2, No Murmurs Abdomen: Normal Bowel Sounds, Soft, No Tenderness, No Hepatosplenomegaly, No Masses Extremities: No Clubbing, No Cyanosis, No Edema, Normal Pulses, No Tenderness/ Swelling Skin: No Rashes, No Breakdown, No Significant Lesion Neuro: Normal Gait, Normal Speech, Strength at 5/5 X4 Ext, Normal Tone, Sensation Intact Psych/Mental Status: Mental Status NL, Mood NL Results Lab Laboratory Tests 08/22/18 10:45: Blood Gas Puncture Site R RAD, Blood Gas Patient Temperature 98.5, Arterial Blood pH 7.44H, Arterial Blood Partial Pressure CO2 30L, Arterial Blood Partial Pressure O2 62L, Arterial Blood HCO3 20L, Arterial Blood Total CO2 21.2, Arterial Blood Oxygen Saturation 93L, Arterial Blood Base Excess -3.2L, [place] Test YES-POS, Blood Gas Ventilator Setting NO, Blood Gas Inspired Oxygen RM AIR 08/22/18 12:19: Troponin I < 0.30 08/22/18 16:39: Glucometer 218H 08/22/18 18:07: Troponin I < 0.30 08/22/18 20:28: Glucometer 118H 08/23/18 02:07: Glucometer 42*L 08/23/18 02:50: Glucometer 76 08/23/18 04:42: Glucometer 67L 08/23/18 05:35: Sodium Level 141, Potassium Level 4.6, Chloride Level 111H, Carbon Dioxide Level 20L, Anion Gap 10, Blood Urea Nitrogen 23H, Creatinine 1.13, Estimat Glomerular Filtration Rate 45, BUN/Creatinine Ratio 20, Glucose Level 107H, Calcium Level 9.4, Corrected Calcium 10.2H, Total Bilirubin 0.2, Aspartate Amino Transf (AST/SGOT) 54H, Alanine Aminotransferase (ALT/SGPT) 172H, Alkaline Phosphatase 113, Troponin I < 0.30, Total Protein 5.6L, Albumin 3.0L 08/23/18 06:03: Glucometer 135H Microbiology 08/21/18 Urine Culture - Final, Complete NO GROWTH Clinical Quality Measures AMI/AHF: ASA po Prior to arrival: No DVT/VTE Risk/Contraindication: Risk Factor Score Per Nursin RFS Level Per Nursing on Admit: 2=Moderate JONN YAO MD Aug 23, 2018 09:45
--- NOTE | 2018-08-23 11:24 | Cardiology Progress Note ---
Subjective Date Seen by Provider: Aug 23, 2018 Time Seen by Provider: 11:22 Subjective/Events-last exam Patient asleep in bed, easily awakens to answer questions. Denies any chest pain or dyspnea. Family reports patient is less confused today. Objective-Cardiology Exam Last Set of Vital Signs Vital Signs 08/23/18 08/23/18 08/23/18 08:00 09:00 10:26 Pulse 70 Resp 18 B/P (MAP) 124/59 (80) Pulse Ox 100 O2 Delivery Nasal Cannula O2 Flow Rate 2.00 Capillary Refill : Less Than 3 Seconds I&O Intake and Output 08/23/18 00:00 Intake Total 1150 ml Output Total 150 ml Balance 1000 ml Intake Oral 750 ml IV Total 400 ml Output Urine Total 150 ml # Voids 4 General: Alert, Oriented X3, Cooperative HEENT: Atraumatic, PERRLA Neck: Supple, No JVD, No Thyromegaly Lungs: Clear to Auscultation, Normal Air Movement Heart: Regular Rate, Normal S1, Normal S2, No Murmurs Abdomen: Normal Bowel Sounds, Soft, No Tenderness, No Hepatosplenomegaly, No Masses Extremities: No Clubbing, No Cyanosis, No Edema, Normal Pulses, No Tenderness/ Swelling Skin: No Rashes, No Breakdown, No Significant Lesion Neuro: Normal Gait, Normal Speech, Strength at 5/5 X4 Ext, Normal Tone, Sensation Intact Psych/Mental Status: Mental Status NL, Mood NL Results Lab Laboratory Tests 08/23/18 05:35 A/P-Cardiology Admission Diagnosis Acute pancreatitis Acute hepatitis Hypoglycemia Coronary artery disease Assessment/Plan Acute hepatitis, acute pancreatitis, improving, feeling better, continue to monitor Status post hypoglycemia, labile blood sugar, better at this time, managed by primary care team Bradycardia, asymptomatic. Continue to monitor heart rate Coronary artery disease-left heart catheterization on 04/04/2013 revealing multivessel disease. Patient had Promus 2.5 x 8 mm stent to LAD, Promus 2.25 x 12 mm stent to diagonal, and complex intervention to the RCA using Promus stents x3, 2.75 x 16 mm, 3.0 x 38 mm, and 3.0 x 12 mm, done by Dr. Vargas at [place]. continue to monitor at this time, no changes are recommended TIA, left sided weakness occurred in November 2017, workup showed unremarkable MRI , resolved and reporting improvement. Continue to monitor [id number] score is 5, yearly risk of stroke without oral anticoagulation is 6.5 percent. Maintained on Eliquis, Multaq, history of Linq implant which reached ANNY in July 2017. Intolerance to beta blockers secondary to bradycardia and dizziness. Continue to monitor Hypertension, continue to monitor blood pressure Hyperlipidemia, hold medication and monitor lipids Renal insufficiency, acute on chronic renal failure, continue on IV fluid and monitor Carotid artery stenosis-carotid duplex done in the office in May 2014 revealed significant left ICA stenosis. CTA of the neck showed significant stenosis on the left carotid artery, 60-80 percent. Otherwise mild disease on the right side. Patient was referred to Dr. Correia who recommended monitoring at this time. Monitored by Dr. Correia at [place] Clinical Quality Measures AMI/AHF: ASA po Prior to arrival: No DVT/VTE Risk/Contraindication: Risk Factor Score Per Nursin RFS Level Per Nursing on Admit: 2=Moderate BRUNILDA STEWART Aug 23, 2018 11:24
--- NOTE | 2018-08-23 11:33 | Cardiology Progress Note ---
Subjective Date Seen by Provider: Aug 23, 2018 Time Seen by Provider: 11:32 Subjective/Events-last exam patient was seen early this morning, she was still sleeping. Return for evaluation at this time, having a port placed Review of Systems General: Other (no reported chest pain, mental status has been improving) Objective-Cardiology Exam Last Set of Vital Signs Vital Signs 08/23/18 08/23/18 08/23/18 08:00 09:00 10:26 Pulse 70 Resp 18 B/P (MAP) 124/59 (80) Pulse Ox 100 O2 Delivery Nasal Cannula O2 Flow Rate 2.00 Capillary Refill : Less Than 3 Seconds I&O Intake and Output 08/23/18 00:00 Intake Total 1150 ml Output Total 150 ml Balance 1000 ml Intake Oral 750 ml IV Total 400 ml Output Urine Total 150 ml # Voids 4 General: Alert, Oriented X3, Cooperative HEENT: Atraumatic, PERRLA Neck: Supple, No JVD, No Thyromegaly Lungs: Clear to Auscultation, Normal Air Movement Heart: Regular Rate, Normal S1, Normal S2, No Murmurs Abdomen: Normal Bowel Sounds, Soft, No Tenderness, No Hepatosplenomegaly, No Masses Extremities: No Clubbing, No Cyanosis, No Edema, Normal Pulses, No Tenderness/ Swelling Skin: No Rashes, No Breakdown, No Significant Lesion Neuro: Normal Gait, Normal Speech, Strength at 5/5 X4 Ext, Normal Tone, Sensation Intact Psych/Mental Status: Mental Status NL, Mood NL Results Lab Laboratory Tests 08/23/18 05:35 A/P-Cardiology Admission Diagnosis Acute pancreatitis Acute hepatitis Hypoglycemia Coronary artery disease Assessment/Plan Acute hepatitis, acute pancreatitis, improving, feeling better, anicteric. Metabolic profile and lipase tomorrow Status post hypoglycemia, labile blood sugar, better at this time, managed by primary care team Bradycardia, asymptomatic. Continue to monitor heart rate Coronary artery disease-left heart catheterization on 04/04/2013 revealing multivessel disease. Patient had Promus 2.5 x 8 mm stent to LAD, Promus 2.25 x 12 mm stent to diagonal, and complex intervention to the RCA using Promus stents x3, 2.75 x 16 mm, 3.0 x 38 mm, and 3.0 x 12 mm, done by Dr. Vargas at [place]. continue to monitor at this time, no changes are recommended TIA, left sided weakness occurred in November 2017, workup showed unremarkable MRI , resolved and reporting improvement. Continue to monitor [id number] score is 5, yearly risk of stroke without oral anticoagulation is 6.5 percent. Maintained on Eliquis, Multaq, history of Linq implant which reached ANNY in July 2017. Intolerance to beta blockers secondary to bradycardia and dizziness. Continue to monitor Hypertension, continue to monitor blood pressure Hyperlipidemia, hold medication and monitor lipids Renal insufficiency, acute on chronic renal failure, continue on IV fluid and monitor Carotid artery stenosis-carotid duplex done in the office in May 2014 revealed significant left ICA stenosis. CTA of the neck showed significant stenosis on the left carotid artery, 60-80 percent. Otherwise mild disease on the right side. Patient was referred to Dr. Correia who recommended monitoring at this time. Monitored by Dr. Correia at [place] Clinical Quality Measures AMI/AHF: ASA po Prior to arrival: No DVT/VTE Risk/Contraindication: Risk Factor Score Per Nursin RFS Level Per Nursing on Admit: 2=Moderate TAMMIE REHMAN MD Aug 23, 2018 11:33
--- NOTE | 2018-08-23 13:39 | Physical Therapy Evaluation ---
PT Evaluation-General Medical Diagnosis Admission Date Aug 21, 2018 at 07:15 Medical Diagnosis: Chest Pain, Pancreatitis, UTI, ARF Onset Date: Aug 21, 2018 Therapy Diagnosis Therapy Diagnosis: General Weakness Height/Weight Height (Feet): 5 Height (Inches): 0.00 Weight (Pounds): 112 Weight (Ounces): 8.0 Precautions Precautions/Isolations: Fall Prevention, Standard Precautions Weight Bear Status Right Lower Extremity: Right Full Weight Bearing Left Lower Extremity: Left Full Weight Bearing Referral Physician: Kate Sow MD Reason for Referral: Evaluation/Treatment Medical History Pertinent Medical History: Atrial Fib, CAD, DM, Dementia, HTN, PVD, Renal Insufficiency Current History Pt reported to ER for chest pain Reviewed History: Yes Social History Home: Single Level Current Living Status: Spouse Entry Into Home: Stairs With Railing PT Steps Into Home: 3 PT Steps Inside Home: 0 Prior/Core FIM Prior Level of Function Therapy Code Descriptions/Definitions Functional [place] Measure: 0=Not Assessed/NA 4=Minimal Assistance 1=Total Assistance 5=Supervision or Setup 2=Maximal Assistance 6=Modified [place] 3=Moderate Assistance 7=Complete [place] Therapy Quality Codes: 6 Independent with activity with or without an assistive device 5 Patient requires set up or clean up by helper. Patient completes activity by themselves 4 Supervision or touching assist (CGA). [place] provide cues , steadying assist 3 The helper provides less than half the effort to complete the activity 2 The helper provides more than half the effort to complete the activity 1 Dependent. The helper does all the effort to complete an activity 7 Patient refused to complete or attempt activity 9 The patient did not perform the activity before the current illness or injury 88 Not attempted due to Medical conditions or safety concerns Functional Abilities and Goals: Independent: Patient completed the activities by him/herself, with or without an assistive device, with no assistance from a helper. Needed Some Help: Patient needed partial assistance from another person to complete activities. Dependent: A helper completed the activities for the patient. Unknown: Not Applicable: Bed Mobility: 5 Transfers (B,C,W/C) (FIM): 5 Gait: 5 Stairs: 5 Indoor Mobility (Ambulation): Needed Some Help Stairs: Needed Some Help Prior Devices Use: Other-see list below Prior Device Use: single point cane PT Evaluation-Current Subjective Pt awake in bed with family in room when PT arrived. PT agreed to PT evaluation. Pain Numeric Pain Scale: 0-No Pain Location: No Pain Reported Objective Patient Orientation: Confused Problem Solving: Fair ROM/Strength ROM Upper Extremities WNL ROM Lower Extremities WNL Strength Upper Extremities WNL Strength Lower Extremities WNL Integumentary/Posture Bowel Incontinence: No Bladder Incontinence: No Posture flexed forward posture Neuromuscular (Tone, Coordination, Reflexes) Gross motor coordination intact Sensory Vision: Functional Hearing: Hearing Aid/Aides Sensation Right Upper Extremit: Intact Sensation Left Upper Extremity: Intact Sensation Right Lower Extremit: Intact Sensation Left Lower Extremity: Intact Transfers Therapy Code Descriptions/Definitions Functional [place] Measure: 0=Not Assessed/NA 4=Minimal Assistance 1=Total Assistance 5=Supervision or Setup 2=Maximal Assistance 6=Modified [place] 3=Moderate Assistance 7=Complete [place] Transfers (B, C, W/C) (FIM): 4 Scootin Rollin Supine to/from Sit: 4 Sit to/from Stand: 4 Gait Mode of Locomotion: Walk Anticipated Mode of Locomotion: Walk Gait (FIM): 4 Distance (FIM): 3=150 ft Distance: 150' Gait Level of Assist: 4 Gait Persons Needed: 1 Gait Assistive Device: FWW Balance Sitting Static: Good Sitting Dynamic: Good Standing Static: Good Standing Dynamic: Good Assessment/Needs Patient is able to ambulate 150' with a FWW requiring CGA. Patient showed signs of fatigue when returning to room but recovered quickly. Patient returned to bed with a guard rails up and call light when PT exited room. Pt will continue PT to improve ambulation and endurance for daily demands. Rehab Potential: Fair PT Chcf Goals Chcf Goals PT Checking Clerk Goals Time Frame: Aug 31, 2018 Transfers (B,C,W/C) (FIM): 5 Gait (FIM): 5 Gait distance (FIM): 3=150 ft Distance: 200' Gait Level of Assist: 5 Gait Assistive Device: FWW PT Plan Problem List Problem List: Activity Tolerance, Functional Strength, Safety, Balance, Gait, Transfer, Bed Mobility, ROM Treatment/Plan Treatment Plan: Continue Plan of Care Treatment Plan: Bed Mobility, Education, Functional Activity Ravi, Functional Strength, Gait, Safety, Therapeutic Exercise, Transfers Treatment Duration: Aug 31, 2018 Frequency: 6 times per week Estimated Hrs Per Day: .25 hour per day Patient and/or Family Agrees t: Yes Safety Risks/Education Patient Education: Gait Training, Instructions to Caregiver, Safety Issues Teaching Recipient: Patient Time/GCodes Time In: 1311 Time Out: 1323 Total Billed Treatment Time: 12 Total Billed Treatment 1 Visit EVL - 12' G Codes Necessary: KINGA Nails PT Aug 23, 2018 13:39
[2018-08-23] MEDS: LACTOBACILLUS ACIDOPHILUS (PROBIOTIC) CAPSULE PO SCH ×2 (16:23→19:41)
[2018-08-23] MEDS: APIXABAN 2.5 MG (ELIQUIS) TABLET PO SCH (20:46)
[2018-08-23] MEDS: inSUlin DETERMIR 1 UNIT/0.01 ML (LEVEMIR) CHARGE PER UNIT SQ SCH (20:47)
[2018-08-24] VITALS: BP 145/72
[2018-08-24 04:04] VITALS: BP 142/63
[2018-08-24] MEDS: inSUlin ASPART (NovoLOG) 1 UNIT/0.01 ML (CHARGE PER UNIT) SC SCH ×2 (05:07→09:14)
[2018-08-24] MEDS: PANTOPRAZOLE 40 MG (PROTONIX) TAB PO SCH (06:03)
[2018-08-24] MEDS: LACTOBACILLUS ACIDOPHILUS (PROBIOTIC) CAPSULE PO SCH ×2 (06:03→12:55)
[2018-08-24 06:23] LABS: ALBUMIN 2.9 GM/DL (3.2-4.5); BILIRUBIN,TOTAL 0.2 MG/DL (0.1-1.0); CALCIUM 9.2 MG/DL (8.5-10.1); CREATININE SERUM 1.19 MG/DL (0.60-1.30); POTASSIUM 4.2 MMOL/L (3.6-5.0); TOTAL PROTEIN 5.3 GM/DL (6.4-8.2)
[2018-08-24 08:00] VITALS: BP 145/65
[2018-08-24] MEDS: APIXABAN 2.5 MG (ELIQUIS) TABLET PO SCH (08:18)
[2018-08-24] MEDS: ASPIRIN E.C. 81 MG (ECOTRIN) TAB PO SCH (08:18)
[2018-08-24] MEDS: amLODIPine 5 MG (NORVASC) TAB PO SCH (08:18)
--- NOTE | 2018-08-24 09:22 | Physical Therapy Daily Note ---
PT Daily Note-Current Subjective Patient denies foot pain on this date and states she wants to go home today. Spouse present. Pain Numeric Pain Scale: 0-No Pain Location: No Pain Reported Mental Status Patient Orientation: Normal For Age Transfers Therapy Code Descriptions/Definitions Functional [place] Measure: 0=Not Assessed/NA 4=Minimal Assistance 1=Total Assistance 5=Supervision or Setup 2=Maximal Assistance 6=Modified [place] 3=Moderate Assistance 7=Complete [place] Therapy Quality Codes: 6 Independent with activity with or without an assistive device 5 Patient requires set up or clean up by helper. Patient completes activity by themselves 4 Supervision or touching assist (CGA). [place] provide cues , steadying assist 3 The helper provides less than half the effort to complete the activity 2 The helper provides more than half the effort to complete the activity 1 Dependent. The helper does all the effort to complete an activity 7 Patient refused to complete or attempt activity 9 The patient did not perform the activity before the current illness or injury 88 Not attempted due to Medical conditions or safety concerns Transfers (B, C, W/C) (FIM): 6 Scootin Rollin Supine to/from Sit: 6 Sit to/from Stand: 6 Weight Bearing Right Lower Extremity: Right Full Weight Bearing Left Lower Extremity: Left Full Weight Bearing Gait Training Gait (FIM): 6 Distance (FIM): 3=150 ft Distance: 400' Gait Level of Assist: 6 Gait Assistive Device: FWW steady, functional Assessment Patient is currently at [facility] with all gross motor skills and does not require skilled PT intervention. PT to dismiss patient from services as this time. PT Retirement Goals Retirement Goals PT Drum Carrier Goals Time Frame: Aug 31, 2018 Transfers (B,C,W/C) (FIM): 5 Gait (FIM): 5 Gait distance (FIM): 3=150 ft Distance: 200' Gait Level of Assist: 5 Gait Assistive Device: FWW PT Plan Treatment/Plan Treatment Plan: Discontinue PT, goals met Treatment Plan: Bed Mobility, Education, Functional Activity Ravi, Functional Strength, Gait, Safety, Therapeutic Exercise, Transfers Treatment Duration: Aug 31, 2018 Frequency: 6 times per week Estimated Hrs Per Day: .25 hour per day Patient and/or Family Agrees t: Yes Time/GCodes Time In: 908 Time Out: 917 Total Billed Treatment Time: 9 Total Billed Treatment 1 visit FA 9 min KINGA FISHMAN PT Aug 24, 2018 09:22
--- NOTE | 2018-08-24 09:41 | Cardiology Progress Note ---
Subjective Date Seen by Provider: Aug 24, 2018 Time Seen by Provider: 09:38 Subjective/Events-last exam Patient is in bed, feeling better, no new complaint, no chest pain Review of Systems General: No Chills, No Night Sweats, No Fatigue, No Malaise, No Appetite, No Other HEENT: No Head Aches, No Visual Changes, No Eye Pain, No Ear Pain, No Dysphasia , No Sinus Congestion, No Post Nasal Drip, No Sore Throat, No Other Pulmonary: No Dyspnea, No Cough, No Pleuritic Chest Pain, No Other Cardiovascular: No: Chest Pain, Palpitations, Orthopnea, Paroxysmal Noc. Dyspnea, Edema, Lt Headedness, Other Objective-Cardiology Exam Last Set of Vital Signs Vital Signs 08/24/18 08/24/18 04:04 07:00 Temp 97.8 Pulse 73 Resp 16 B/P (MAP) 142/63 (89) Pulse Ox 94 O2 Delivery Room Air Capillary Refill : Less Than 3 Seconds I&O Intake and Output 08/24/18 00:00 Intake Total 1030 ml Balance 1030 ml Intake Oral 1030 ml # Voids 6 # Bowel Movements 1 General: Alert, Oriented X3, Cooperative HEENT: Atraumatic, PERRLA Neck: Supple, No JVD, No Thyromegaly Lungs: Clear to Auscultation, Normal Air Movement Heart: Regular Rate, Normal S1, Normal S2, No Murmurs Abdomen: Normal Bowel Sounds, Soft, No Tenderness, No Hepatosplenomegaly, No Masses Extremities: No Clubbing, No Cyanosis, No Edema, Normal Pulses, No Tenderness/ Swelling Skin: No Rashes, No Breakdown, No Significant Lesion Neuro: Normal Gait, Normal Speech, Strength at 5/5 X4 Ext, Normal Tone, Sensation Intact Psych/Mental Status: Mental Status NL, Mood NL Results Lab Laboratory Tests 08/24/18 05:45 A/P-Cardiology Admission Diagnosis Acute pancreatitis Acute hepatitis Hypoglycemia Coronary artery disease Assessment/Plan Acute hepatitis, acute pancreatitis, improving, feeling better, Lipase is still elevated, continue to monitor Status post hypoglycemia, labile blood sugar, better at this time, managed by primary care team Bradycardia, asymptomatic. Continue to monitor heart rate Coronary artery disease-left heart catheterization on 04/04/2013 revealing multivessel disease. Patient had Promus 2.5 x 8 mm stent to LAD, Promus 2.25 x 12 mm stent to diagonal, and complex intervention to the RCA using Promus stents x3, 2.75 x 16 mm, 3.0 x 38 mm, and 3.0 x 12 mm, done by Dr. Vargas at [place]. continue to monitor at this time, no changes are recommended TIA, left sided weakness occurred in November 2017, workup showed unremarkable MRI , resolved and reporting improvement. Continue to monitor [id number] score is 5, yearly risk of stroke without oral anticoagulation is 6.5 percent. Maintained on Eliquis, Multaq, history of Linq implant which reached ANNY in July 2017. Intolerance to beta blockers secondary to bradycardia and dizziness. Continue to monitor Hypertension, continue to monitor blood pressure Hyperlipidemia, hold medication and monitor lipids Renal insufficiency, acute on chronic renal failure, continue on IV fluid and monitor Carotid artery stenosis-carotid duplex done in the office in May 2014 revealed significant left ICA stenosis. CTA of the neck showed significant stenosis on the left carotid artery, 60-80 percent. Otherwise mild disease on the right side. Patient was referred to Dr. Correia who recommended monitoring at this time. Monitored by Dr. Correia at [place] Clinical Quality Measures AMI/AHF: ASA po Prior to arrival: No DVT/VTE Risk/Contraindication: Risk Factor Score Per Nursin RFS Level Per Nursing on Admit: 2=Moderate TAMMIE REHMAN MD Aug 24, 2018 09:41
--- NOTE | 2018-08-24 11:01 | Discharge Summary ---
Diagnosis/Chief Complaint Date of Admission Aug 21, 2018 at 07:15 Date of Discharge Discharge Summary Discharge Physical Examination Allergies: Coded Allergies: No Known Drug Allergies (Unverified , 03/17/18) Vitals & I&Os Vital Signs Date Time Temp Pulse Resp B/P (MAP) Pulse Ox O2 Delivery O2 Flow Rate FiO2 08/24/18 07:00 73 08/24/18 04:04 97.8 16 142/63 (89) 94 Room Air 08/23/18 16:00 2.00 General Appearance: Alert, Oriented X3, Cooperative HEENT: Atraumatic, PERRLA Respiratory: Clear to Auscultation, Normal Air Movement Cardiovascular: Regular Rate, Normal S1, Normal S2, No Murmurs Abdominal: Normal Bowel Sounds, Soft, No Tenderness, No Hepatosplenomegaly, No Masses Extremities: No Clubbing, No Cyanosis, No Edema, Normal Pulses, No Tenderness/ Swelling Skin: No Rashes, No Breakdown, No Significant Lesion Neuro: Normal Gait, Normal Speech, Strength at 5/5 X4 Ext, Normal Tone, Sensation Intact Psych/Mental Status: Mental Status NL, Mood NL Hospital Course Pending Labs Laboratory Tests 08/24/18 05:45: Sodium Level 142, Potassium Level 4.2, Chloride Level 112, Carbon Dioxide Level 22, Anion Gap 8, Blood Urea Nitrogen 26, Creatinine 1.19, Estimat Glomerular Filtration Rate 43, BUN/Creatinine Ratio 22, Glucose Level 113, Calcium Level 9.2, Corrected Calcium 10.1, Total Bilirubin 0.2, Aspartate Amino Transf (AST/ SGOT) 26, Alanine Aminotransferase (ALT/SGPT) 115, Alkaline Phosphatase 94, Total Protein 5.3, Albumin 2.9, Lipase 122 08/24/18 08:41: Glucometer 122 Discharge Instructions to patient/family Please see electronic discharge instructions given to patient. Discharge Medications Reviewed and agree with Discharge Medication list on patient's Discharge Instruction sheet Clinical Quality Measures AMI/AHF: ASA po Prior to arrival: No DVT/VTE Risk/Contraindication: Risk Factor Score Per Nursin RFS Level Per Nursing on Admit: 2=Moderate JONN YAO MD Aug 24, 2018 11:01
--- NOTE | 2018-08-24 11:18 | D/C HH Face to Face Order ---
D/C Face to Face Orders Instructions for Patient Via [employer], Patient Instructions/FollowUp: follow up with soledad ramos in one week, and dr. tolbert in 10-14 days Physician to follow Patient: soledad Discharge Diet for Home: ADA Diet Patient Problems: diabetes mellitus hypoglycemia atrial fibrillation hypertension hard of hearing Goals for Patient: improved strength, improved diabetic control with alerts going to family members to aide her in better glucose control and prevention of hypoglycemia Patient Data-Allergies,Ht & Wt Patient Allergies: Coded Allergies: No Known Drug Allergies (Unverified , 03/17/18) Height (Feet): 5 Height (Inches): 0.00 Weight (Pounds): 111 Weight (Ounces): 12.0 Home Health Need/Face to Face Date of Face to Face: Aug 24, 2018 Clinical Findings: Generalized weakness and fatigue, Muscle weakness, Other- list in note (hypertension, diabetes with hypoglycemia - insulin dependent) I have seen Pt [id number]: Yes Discharged To: Home Diagnosis/Conditions: diabetes mellitus hypoglycemia atrial fibrillation hypertension hard of hearing Patient is Homebound due to: CognItive deficits, Muscle weakness Homebound Status Due to the above stated illness, injury or surgical procedure (medical condition or diagnosis) and associated clinical findings, the patient is homebound because of his/her inability to leave home except with aid of a supportive device and/or person AND leaving the home requires a considerable and taxing effort or is medically contraindicated. Pt req the following assistanc: Aid of another person, [facility] Home Health Nursing Orders Home Health Services Order: Nursing Services, Physical Therapy-Evaluate & Treat manage/monitor blood pressure medication and pressures and heart rate monitor blood glucose, aide pt in setting up medications therapy to aide pt in home safety Home Health Infusion Therapy Line Start Date: Aug 23, 2018 Line Start Time: 1130 Line Type: Midline Site Location: Arm-Upper Therapy Orders Therapy Orders: Physical Therapy, PT to assess for OT Therapy Specific Orders: Teach enviro modifications/safety, Increase strength/ endurance Certify Stmt I certify that this patient is under my care and that I, a nurse practitioner or a physician; a district administrative assistant working with me, had a face to face encounter that - meets the physician face to face encounter requirements with this patient as dated. JONN YAO MD Aug 24, 2018 11:18
[2018-08-24 12:00] VITALS: BP 172/70
[2018-08-24] MEDS ORDERED: METO-370 PO (12:43)
== END 2018-08-24 13:45 | disposition home health service (06) | DRG 438 ==
LOC: EDUNIT# 03:18 → ER 03:19 → ICU 07:15 → 4TH 08-23 12:57
PROVIDERS: ADMIT Family Medicine; ATTEND Family Medicine
DX: K85.90 Acute pancreatitis without necrosis or infection, unspecified (principal); G93.41 Metabolic encephalopathy; B17.9 Acute viral hepatitis, unspecified; N17.9 Acute kidney failure, unspecified; N39.0 Urinary tract infection, site not specified; I12.9 Hypertensive chronic kidney disease with stage 1 through stage 4 chronic kidney disease, or unspecified chronic kidney disease; N18.9 Chronic kidney disease, unspecified; Z66 Do not resuscitate; E11.649 Type 2 diabetes mellitus with hypoglycemia without coma; E11.51 Type 2 diabetes mellitus with diabetic peripheral angiopathy without gangrene; I25.10 Atherosclerotic heart disease of native coronary artery without angina pectoris; R06.03 Acute respiratory distress; F41.0 Panic disorder [episodic paroxysmal anxiety]; I48.91 Unspecified atrial fibrillation; I65.23 Occlusion and stenosis of bilateral carotid arteries; R07.9 Chest pain, unspecified; R00.1 Bradycardia, unspecified; E87.5 Hyperkalemia; M19.91 Primary osteoarthritis, unspecified site; H91.93 Unspecified hearing loss, bilateral; I25.2 Old myocardial infarction; Z79.01 Long term (current) use of anticoagulants; Z95.5 Presence of coronary angioplasty implant and graft; Z79.4 Long term (current) use of insulin; Z86.73 Personal history of transient ischemic attack (TIA), and cerebral infarction without residual deficits; Z97.4 Presence of external hearing-aid
CPT/HCPCS: 36415; 71045; 74176; 76700; 76937; 80053; 80061; 81000; 82140; 82150; 82805; 82962; 83690; 83735; 83874; 83880; 84484; 85025; 85027; 85610; 85730; 87088; 93005; 93041; 96365

== ENCOUNTER 2018-08-24 17:14 | Inpatient (IN) | payer MEDICARE, OTHER ==
[~2018-08-24] VITALS: Ht 152.4 cm; Wt 57.2 kg
[~2018-08-24 17:14] MED LIST changes: +AMLO10TA6 PO; +ASPI-983 PO; +CEPH500C PO; +DICL100G31 TOP; +L.AC1CAP6 PO; +LEVO250T46 PO
[2018-08-24 17:39] LABS: BASOPHILS % (AUTO) 0 % (0-10); EOSINOPHILS # (AUTO) 0.2 10^3/uL (0.0-0.3); EOSINOPHILS % (AUTO) 2 % (0-10); HEMATOCRIT 39 % (35-52); HEMOGLOBIN 12.6 G/DL (11.5-16.0); LYMPHOCYTES # (AUTO) 3.1 X 10^3 (1.0-4.0); LYMPHOCYTES % (AUTO) 28 % (12-44); MEAN CORPUSCULAR HEMOGLOBIN 30 PG (25-34); MEAN CORPUSCULAR HGB CONC 32 G/DL (32-36); MEAN CORPUSCULAR VOLUME 93 FL (80-99); MONOCYTES # (AUTO) 1.4 X 10^3 (0.0-1.0); MONOCYTES % (AUTO) 13 % (0-12); NEUTROPHILS # (AUTO) 6.3 X 10^3 (1.8-7.8); NEUTROPHILS % (AUTO) 57 % (42-75); PLATELET COUNT 438 10^3/uL (130-400); RED BLOOD COUNT 4.23 10^6/uL (4.35-5.85); RED CELL DISTRIBUTION WIDTH 14.1 % (10.0-14.5); WHITE BLOOD COUNT 11.1 10^3/uL (4.3-11.0)
--- OUTSIDE RECORDS SUMMARY | 2018-08-24 17:50 | XMS REPORT | CCD ---
Author Author [facility] Organization [facility] Address [address] [place] [address] Phone Care Team Providers Care Environmental Marketing Representative Name Role Phone PP Unavailable CCM Unavailable Summary Purpose Interface Exchange Insurance Providers Payer name Policy type / Coverage type Covered democrat ID Effective Begin Date Effective End Date WPS Medicare Part B Medicare Part B [id number] Unknown Unknown [employer] Medicare Part B [id number] Unknown Unknown Family history Mother Diagnosis Age [...] Unknown 3 05/04/[address]: [id number] Never smoker 05/04/2015 Alcohol history Unknown occasionally drinks alcohol 05/04/2015 Allergies, Adverse Reactions, Alerts Substance Reaction Codes Entered Date Inactivated Date Status * NO KNOWN DRUG ALLERGIES Unknown 07/08/2015 No Inactive Date Active Past Medical History Illness Codes Condition Status Onset Date Resolved Date Essential (primary) hypertension ICD-9: 401.1 ICD-10: I10 Active 09/20/2016 Unknown Myalgia, other site ICD-9: 729.1 ICD-10: M79.18 Active 08/17/2018 Unknown Type 2 diabetes mellitus without complications ICD-9: 250.00 ICD-10: E11.9 Active 05/03/2015 Unknown Muscle weakness (generalized) ICD-9: 728.87 ICD-10: M62.81 Active 12/21/2017 Unknown Type 2 diabetes mellitus with hyperglycemia [...] hypertension ICD-9: 401.1 ICD-10: I10 09/20/2016 Active Myalgia, other site ICD-9: 729.1 ICD-10: M79.18 08/17/2018 Active Type 2 diabetes mellitus without complications ICD-9: 250.00 ICD-10: E11.9 05/03/2015 Active Muscle weakness (generalized) ICD-9: 728.87 ICD-10: M62.81 12/21/2017 Active Type 2 diabetes mellitus with hyperglycemia [...] Start Date Stop Date Status Fill Instructions Voltaren 1 % topical gel RxNorm: 866583 APPLY THIN LAYER TOPICALLY TO AFFECTED AREA 4 TIMES DAILY 08/24/2018 No Stop Date Active Levaquin 250 mg tablet RxNorm: 632113 2 tabs on 1st day then 1 tab day 2-7 Tablet( s) PO daily 08/20/2018 08/26/2018 Active dc keflex Levaquin 250 mg tablet RxNorm: 443516 2 tabs on 1st day then 1 tab day 2-7 Tablet( s) PO daily 08/20/2018 08/19/2018 Inactive dc keflex Keflex 500 mg capsule RxNorm: 104719 1 Capsule(s) PO TID 201708/19/2018 Inactive Estevan Marte U-300 Insulin 300 unit/mL (1.5 mL) subcutaneous pen RxNorm: 3667321 25 Unit(s) SQ QHS MANAGED BY DR. JOHNSON 201711/28/2018 Active Norvasc 10 mg tablet RxNorm: 487979 1 Tablet(s) PO daily 201701/25/2019 Active update RX Eliquis 2.5 mg tablet RxNorm: 9593124 Tablet(s) PO TAKE ONE TABLET BY MOUTH TWICE DAILY 06/21/2018 06/15/2019 Active cyclobenzaprine 5 mg tablet RxNorm: 142681 1/2 Tablet(s) PO BID as needed muscle spasms/back pain 05/02/2018 05/31/2018 Inactive tramadol 50 mg tablet RxNorm: 232410 1 Tablet(s) PO TID as needed for pain 04/27/2018 05/01/2018 Inactive Voltaren 1 % topical gel RxNorm: 901470 1 Application TOP QID 04/27/2018 08/23/2018 Inactive acyclovir 400 mg tablet RxNorm: 244600 2 Tablet(s) PO QID 04/2006/20/2018 Inactive mupirocin 2 % topical ointment RxNorm: 928130 1 Application TOP BID 04/20/2018 04/29/2018 Inactive right cheek/nose gentamicin 0.3 % eye drops RxNorm: 316905 2 Drop(s) ophthalmic (eye) left eye Q8 04/16/2018 No Stop Date Active prednisone 20 mg tablet RxNorm: 713776 2 Tablet(s) PO daily 04/12/2018 Inactive prednisone 20 mg tablet RxNorm: 184849 2 Tablet(s) PO daily 04/17/2018 Inactive Kenalog 40 mg/mL suspension for injection RxNorm: 4688622 1 Milliliter(s) Inj 04/12/2018 04/12/2018 Inactive losartan 100 mg tablet RxNorm: 168851 1 Tablet(s) PO QAM 201712/28/2018 Active update RX -dose should be 100mg Norvasc 5 mg tablet RxNorm: 298132 1 Tablet(s) PO daily 201707/29/2018 Inactive update RX losartan 50 mg tablet RxNorm: 633949 TAKE ONE TABLET BY MOUTH ONCE DAILY IN THE MORNING 03/26/2018 04/02/2018 Inactive Humalog U-100 Insulin 100 unit/mL subcutaneous solution RxNorm: 837314 15 Unit(s) SQ AC MANAGED BY DR. JOHNSON 03/13/2018 No Stop Date Active 201- 200 17 units, greater than 300 21 units Toujeo SoloStar U-300 Insulin 300 unit/mL (1.5 mL) subcutaneous pen RxNorm: 3875054 20 Unit(s) SQ QHS MANAGED BY DR. JOHNSON 201707/10/2018 Inactive losartan 100 mg tablet RxNorm: 197752 1 Tablet(s) PO QAM 201704/02/2018 Inactive pantoprazole 40 mg tablet,delayed release RxNorm: 169210 1 Tablet(s) PO daily 01/11/2018 07/19/2018 Inactive carvedilol 12.5 mg tablet RxNorm: 426093 1 Tablet(s) PO BID 07/19/2018 Inactive Toujeo SoloStar U-300 Insulin 300 unit/mL (1.5 mL) subcutaneous pen RxNorm: 4288526 15 Unit(s) SQ QHS MANAGED BY DR. JOHNSON 201703/12/2018 Inactive Multaq 400 mg tablet RxNorm: 863037 1 Tablet(s) PO BID 201712/14/2018 Active potassium chloride ER 10 mEq tablet,extended release RxNorm: 765441 1 Tablet(s) PO daily while on the Lasix 10/18/201701/2018 Inactive losartan 50 mg tablet RxNorm: 171277 1 Tablet(s) PO QAM 201601/17/2018 Inactive Lasix 20 mg tablet RxNorm: 718013 1 Tablet(s) PO daily 201610/03/2017 Inactive potassium chloride ER 10 mEq tablet,extended release RxNorm: 123634 1 Tablet(s) PO daily while on the Lasix 08/30/2017 Inactive Toujeo SoloStar 300 unit/mL (1.5 mL) subcutaneous insulin pen RxNorm: 0984479 35 Unit(s) SQ QHS MANAGED BY DR. JOHNSON 06/15/2017 10/12/2017 Inactive Eliquis 5 mg tablet RxNorm: 4762528 TAKE ONE TABLET BY MOUTH TWICE DAILY 03/01/2017 02/23/2018 Inactive Januvia 100 mg tablet RxNorm: 745918 1/2 Tablet(s) PO daily 07/19/2018 Inactive losartan 50 mg tablet RxNorm: 315855 1 Tablet(s) PO BID 201509/13/2017 Inactive amlodipine 10 mg tablet RxNorm: 850950 1 Tablet(s) PO daily 06/14/2017 Inactive generic for NORVASC losartan 50 mg tablet RxNorm: 436272 1 Tablet(s) PO daily 201508/31/2016 Inactive Toujeo SoloStar 300 unit/mL (1.5 mL) subcutaneous insulin pen RxNorm: 6904799 40 Unit(s) SQ QHS MANAGED BY DR. JOHNSON 07/01/2016 06/14/2017 Inactive Estevan SoloStar 300 unit/mL (1.5 mL) subcutaneous insulin pen RxNorm: 6418991 35 Unit(s) SQ QHS MANAGED BY DR. JOHNSON 06/02/2016 06/30/2016 Inactive Humalog 100 unit/mL subcutaneous solution RxNorm: 194284 15 Unit(s) SQ AC MANAGED BY DR. JOHNSON 06/02/2016 03/12/2018 Inactive carvedilol 3.125 mg tablet RxNorm: 261157 1 Tablet(s) PO BID 04/23/2016 Inactive simvastatin 40 mg tablet RxNorm: 254436 1 Tablet(s) PO QHS 07/19/2018 Inactive Humalog 100 unit/mL subcutaneous solution RxNorm: 178275 13 Unit(s) SQ AC MANAGED BY DR. JOHNSON 01/26/2016 06/01/2016 Inactive Eliquis 5 mg tablet RxNorm: 4686669 1 Tablet(s) PO BID 201501/13/2017 Inactive carvedilol 6.25 mg tablet RxNorm: 182540 1 Tablet(s) PO BID 2016 Inactive Humalog 100 unit/mL subcutaneous solution RxNorm: 307245 Unit(s) SQ UD as directed by office 08/07/2015 01/25/2016 Inactive Klor-Con 10 mEq tablet,extended release RxNorm: 347805 1 Tablet(s) PO daily as needed 06/26/2015 10/23/2015 Inactive Lasix 20 mg tablet RxNorm: 881744 1 Tablet(s) PO daily as needed 06/26/2015 10/23/2015 Inactive fluticasone 50 mcg/actuation nasal spray,suspension RxNorm: 998820 2 [place] NASAL daily No Start Date Active metoprolol succinate ER 50 mg tablet,extended release 24 hr RxNorm: 792244 1 Tablet(s) PO daily No Start Date Active aspirin 81 mg capsule,delayed release RxNorm: 386642 1 Capsule(s) PO daily No Start Date Active Novolog U-100 Insulin aspart 100 unit/mL subcutaneous solution RxNorm: 223213 SSI 80-150 10u 151-200 15u 201-300 17u over 300 21u Unit(s) SQ AC & HS as needed No Start Date Active cetirizine 10 mg tablet RxNorm: 5624211 1 Tablet(s) PO daily No Start Date Active atorvastatin 40 mg tablet RxNorm: 051570 1 Tablet(s) PO daily No Start Date Active Culturelle Probiotics 10 billion cell-200 mg capsule RxNorm: 1 Capsule(s) PO TID No Start Date Active losartan 25 mg tablet RxNorm: 619870 1 Tablet(s) PO daily No Start Date 08/31/2016 Inactive losartan 100 mg tablet RxNorm: 211358 1 Tablet(s) PO daily No Start Date 06/30/2016 Inactive gentamicin 0.3 % eye drops RxNorm: 325206 2 Drop(s) ophthalmic (eye) left eye Q8 No Start Date 04/15/2018 Inactive Multaq 400 mg tablet RxNorm: 264583 1 Tablet(s) PO BID No Start Date 12/19/2017 Inactive Klor-Con 10 mEq tablet,extended release RxNorm: 027346 1 Tablet(s) PO daily as needed No Start Date 06/25/2015 Inactive simvastatin 40 mg tablet RxNorm: 021580 1 Tablet(s) PO daily No Start Date 02/04/2016 Inactive carvedilol 6.25 mg tablet RxNorm: 595324 1 Tablet(s) PO BID No Start Date 11/30/2015 Inactive Eliquis 5 mg tablet RxNorm: 4347852 1 Tablet(s) PO BID No Start Date 01/19/2016 Inactive Toujeo SoloStar 300 unit/mL (1.5 mL) subcutaneous insulin pen RxNorm: 5308264 33 Unit(s) SQ QHS MANAGED BY DR. JOHNSON No Start Date 06/01/2016 Inactive Lasix 20 mg tablet RxNorm: 977315 1 Tablet(s) PO daily as needed No Start Date 06/25/2015 Inactive Humalog 100 unit/mL subcutaneous solution RxNorm: 218055 10 Unit(s) SQ TID No Start Date 08/06/2015 Inactive amlodipine 5 mg tablet RxNorm: 175088 1 Tablet(s) PO daily No Start Date 08/31/2016 Inactive Norvasc 2.5 mg tablet RxNorm: 385440 1 Tablet(s) PO daily No Start Date 04/02/2018 Inactive Medication Administered Medication Codes Instructions Start Date Status Kenalog 40 mg/mL suspension for injection RxNorm: 3580307 1Milliliter 04/12/2018 No longer Active Immunizations Vaccine Codes Date Status Influenza CVX: 141 06/02/2016 completed Influenza CVX: 141 07/17/2015 completed Influenza CVX: 141 06/18/2014 completed Pneumococcal CVX: 33 06/18/2014 completed Assessments Condition Codes Effective Dates Type 2 diabetes mellitus without complications ICD-10: E11.9 ICD-9: 250.00 08/17/2018 Myalgia, other site ICD-10: M79.18 ICD-9: 729.1 08/17/2018 Essential (primary) hypertension ICD-10: I10 ICD-9: 401.1 08/17/2018 Type 2 diabetes mellitus with hyperglycemia ICD-10: [...] (primary) hypertension ICD-10: I10 ICD-9: 401.9 09/07/2017 Encounter for follow-up examination after completed treatment for conditions other than malignant neoplasm ICD-10: Z09 ICD-9: V67.59 08/30/2017 Dyspnea, unspecified ICD-10: R06.00 ICD-9: 786.09 08/30/2017 Impacted cerumen, right ear ICD-10: H61.21 ICD-9: 380.4 06/08/2016 Encounter for immunization ICD-10: Z23 ICD-9: V04.81 06/02/2016 Other specified cardiac arrhythmias ICD-10: I49.8 ICD-9: 427.89 03/25/2016 Edema, unspecified ICD-10: R60.9 ICD-9: 782.3 07/08/2015 DIABETES TYPE II ICD-9: 250.00 2014 ESSENTIAL HYPERTENSION ICD-9: 401.9 05/04 Reason For Visit Reason For Visit Effective Dates Notes Hospital Follow Up 08/17/2018 diabetes mellitus 08/08/2018 diabetes mellitus 07/17/2018 diabetes [...] Observation Code Item Item Code Result Date Comp Metabolic Tcx335 NA 140 mEq/L 05/25/2017 Comp Metabolic Hhc377 K 4.0 mEq/L 05/25/2017 Comp Metabolic Qsv841 CL 107 mEq/L 05/25/2017 Comp Metabolic Pte040 CO2 22.0 mEq/L 05/25/2017 Comp Metabolic Pri688 ANION GAP 15 05/25/2017 Comp Metabolic Jqm379 GLUCOSE 97 mg/dL 05/25/2017 Comp Metabolic Byb844 Creat 0.9 mg/dL 05/25/2017 Comp Metabolic Gut925 eGFR 61 ml/min/1.73m2 05/25/2017 Comp Metabolic Lrt491 BUN 16 mg/dL 05/25/2017 Comp Metabolic Shz650 B/C Ratio 17.4 Ratio 05/25/2017 Comp Metabolic Jtt907 CALCIUM 9.1 mg/dL 05/25/2017 Comp Metabolic Tbp726 ALK PHOS 109 U/L 05/25/2017 Comp Metabolic Qfl525 AST(SGOT) 19 U/L 05/25/2017 Comp Metabolic Qxd071 ALT(SGPT) 17 U/L 05/25/2017 Comp Metabolic Roc938 BILI T 0.4 mg/dL 05/25/2017 Comp Metabolic Lky091 ALBUMIN 3.3 g/dL 05/25/2017 Comp Metabolic Ytm173 TPRO 6.0 g/dL 05/25/2017 Comp Metabolic Jgd161 GLOB 2.7 g/dL 05/25/2017 Comp Metabolic Sln263 A/G Ratio 1.2 Ratio 05/25/2017 Comp Metabolic Sxe118 Osmo 281 mOsmo 05/25/2017 Manual Differential Ord52 D-Neutr 50 % 05/25/2017 Manual Differential Ord52 D-Lymph 38 % 05/25/2017 Manual Differential Ord52 D-Eos 10 % 05/25/2017 Manual Differential Ord52 D-1 2 NRBC 05/25/2017 Cbc With Differential Ord2 WBC 8.27 K/ul 05/25/2017 Cbc With Differential Ord2 RBC 4.62 M/ul 05/25/2017 Cbc With Differential Ord2 HGB 14.4 g/dl 05/25/2017 Cbc With Differential Ord2 HCT 42.6 % 05/25/2017 Cbc With Differential Ord2 Neut% 32.1 % 05/25/2017 Cbc With Differential Ord2 MCV 92.2 fl 05/25/2017 Cbc With Differential Ord2 Lymph% 45.7 % 05/25/2017 Cbc With Differential Ord2 MCH 31.2 pg 05/25/2017 Cbc With Differential Ord2 [place]% 8.9 % 05/25/2017 Cbc With Differential Ord2 [...] 3.78 K/ul 05/25/2017 Cbc With Differential Ord2 [place] ABS# 0.7 K/ul 05/25/2017 Cbc With Differential Ord2 Eos ABS# 0.8 K/ul 05/25/2017 Cbc With Differential Ord2 Baso ABS# 0.3 K/ul 05/25/2017 Tsh Ord6 hTSH II 3.31 uIU/mL 05/25/2017 Lipid Ord30 CHOL 204 mg/dL 05/25/2017 Lipid Ord30 HDL 49.0 mg/dl 05/25/2017 Lipid Ord30 TRIG 117 mg/dL 05/25/2017 Lipid Ord30 LDL 132 mg/dL 05/25/2017 Lipid Ord30 C/HDL 4.2 Ratio 05/25/2017 %Hba1C Gis433 % HbA1c 16722-3 10.5 % 05/25/2017 %Hba1C Fsm648 Gluc Ave 255 mg/dL 05/25/2017 Microalbumin Hfb742 MicroAlb 95.0 mg/dL 05/25/2017 Review of Systems System Result Effective Dates Constitutional No recent illness 2017 Constitutional No chills 08/17/2018 Constitutional No diaphoresis 08/17/2018 Constitutional No fever 08/17/2018 Eyes No eye erythema 08/17/2018 Ears/Nose/Throat/Neck No nasal discharge 08/17/2018 Ears/Nose/Throat/Neck No sore throat Ears/Nose/Throat/Neck No sinus congestion 08/17/2018 Cardiovascular No chest pain/pressure Cardiovascular edema 08/17/2018 Cardiovascular hypertension 08/17/2018 Respiratory No chest congestion 2017 Respiratory No cough 08/17/2018 Respiratory No dyspnea on exertion 2017 Gastrointestinal No abdominal pain 2017 Gastrointestinal No constipation 2017 Gastrointestinal No diarrhea 08/17/2018 Gastrointestinal No nausea 08/17/2018 Gastrointestinal No vomiting 08/17/2018 Musculoskeletal arthralgia(s) 08/17/2018 Dermatologic No rash 08/17/2018 Neurologic No alteration of consciousness 08/17/2018 Neurologic No mental status change 2017 Psychiatric No anxiety 08/17/2018 Psychiatric No depression 08/17/2018 Endocrine diabetes mellitus type 2 2017 Constitutional [...] 1994 Constitutional general appearance Overall: well developed 08/17/2018 None Full Exam - General 1994 Constitutional general appearance Overall: in no acute distress 08/17/2018 None Full Exam - General 1994 Constitutional general appearance Overall: well nourished 08/17/2018 None Full Exam - General 1994 Constitutional general appearance Hygiene/Attention to Grooming: good hygiene 08/17/2018 None Full Exam - General 1994 Eyes conjunctiva /eyelids Overall: conjunctiva clear 08/17/2018 None Full Exam - General 1994 Eyes conjunctiva /eyelids Overall: cornea clear 08/17/2018 None Full Exam - General 1994 Eyes conjunctiva /eyelids Overall: eyelids normal 08/17/2018 None Full Exam - General 1994 Eyes pupils and irises Overall: pupils equal, round, reactive to light and accomodation 08/17/2018 None Full Exam - General 1994 Ears/Nose/Throat lips/teeth/gingiva Overall: benign lips 08/17/2018 None Full Exam - General 1994 Ears/Nose/Throat oral cavity/pharynx/larynx Overall: oral mucosa clear 08/17/2018 None Full Exam - General 1994 Ears/Nose/Throat oral cavity/pharynx/larynx Overall: oropharyngeal mucosa clear 08/17/2018 None Full Exam - General 1994 Respiratory auscultation Overall: breath sounds clear bilaterally 08/17/2018 None Full Exam - General 1994 Respiratory respiratory effort/rhythm Overall: no retractions 08/17/2018 None Full Exam - General 1994 Respiratory respiratory effort/rhythm Overall: normal rate 08/17/2018 None Full Exam - General 1994 Cardiovascular auscultation of heart Overall: regular rate 08/17/2018 None Full Exam - General 1994 Cardiovascular auscultation of heart Overall: normal heart sounds 08/17/2018 None Full Exam - General 1994 Abdomen abdominal exam Overall: no tenderness 08/17/2018 None Full Exam - General 1994 Abdomen abdominal exam Overall: normal bowel sounds 08/17/2018 None Full Exam - General 1994 Lymphatic neck nodes Overall: anterior cervical chain benign 08/17/2018 None Full Exam - General 1994 Lymphatic neck nodes Overall: posterior cervical chain benign 08/17/2018 None Full Exam - General 1994 Neurologic cranial nerves Overall: crainial nerves 2 - 12 grossly intact 08/17/2018 None Full Exam - General 1994 Psychiatric orientation/consciousness Overall: oriented to person, place and time 08/17/2018 None Full Exam - General 1994 Psychiatric mood and affect Overall: normal mood and affect 08/17/2018 None Full Exam - General 1994 Constitutional [...] lips 07/17/2018 None Full Exam - General 1995 [...] tenderness 05/02/2018 None Full Exam - General 1995 Musculoskeletal spine, ribs and pelvis Posture: lordosis [...] Procedures Procedure Codes Date DRAIN/INJECT JOINT/BURSA CPT-4: 59337 04/12/2018 TRIAMCINOLONE ACET INJ NOS CPT-4: J3301 04/12/2018 PPPS, SUBSEQ VISIT CPT -4: G0439 02/22/2018 ADMIN INFLUENZA VIRUS VAC CPT-4: G0008 06/02/2016 FLU VACC PRSV FREE INC ANTIG CPT-4: 77437 06/02/2016 Vital Signs Date Vital 08/17/2018 Blood Pressure 1: 140/66 Code : 8480-6 BMI: 25.3 Code : 78623-8 Heart Rate 1 : 66 bpm Height: 4'8" SpO2: 97% Weight: 113 lbs 08/08/2018 Blood Pressure 1: 174/70 Code : 8480-6 BMI: 25.3 Code : 71163-6 Heart Rate 1 : 60 bpm Height: 4'8" SpO2: 97% Weight: 113 lbs 07/17/2018 Blood Pressure 1: 148/62 Code : 8480-6 BMI: 24.9 Code : 22281-8 Heart Rate 1 : 65 bpm Height: 4'8" SpO2: 97% Weight: 111 lbs 06/26/2018 Blood Pressure 1: 118/72 Code : 8480-6 BMI: 25.1 Code : 14941-6 Heart Rate 1 : 58 bpm Height: 4'8" SpO2: 97% Weight: 112 lbs 06/21/2018 Blood Pressure 1: 120/72 Code : 8480-6 BMI: 25.1 Code : 43091-5 Heart Rate 1 : 56 bpm Height: 4'8" SpO2: 96% Weight: 112 lbs 05/02/2018 Blood Pressure 1: 178/76 Code : 8480-6 BMI: 24.7 Code : 38908-8 Heart Rate 1 : 72 bpm Height: 4'8" SpO2: 98% Weight: 110 lbs 04/27/2018 Blood Pressure 1: 164/78 Code : 8480-6 BMI: 24.7 Code : 42910-0 Heart Rate 1 : 69 bpm Height: 4'8" SpO2: 97% Weight: 110 lbs 04/20/2018 Blood Pressure 1: 140/80 Code : 8480-6 BMI: 24.7 Code : 98433-8 Heart Rate 1 : 83 bpm Height: 4'8" SpO2: 97% Weight: 110 lbs 04/12/2018 Blood Pressure 1: 146/78 Code : 8480-6 Heart Rate 1: 68 bpm Height: SpO2: 98% Weight: 04/10/2018 Blood Pressure 1: 146/60 Code : 8480-6 BMI: 24.7 Code : 50926-9 Heart Rate 1 : 60 bpm Height: 4'8" SpO2: 95% Weight: 110 lbs 04/03/2018 Blood Pressure 1: 204/80 Code : 8480-6 BMI: 24.9 Code : 31788-8 Heart Rate 1 : 62 bpm Height: 4'8" SpO2: 98% Weight: 111 lbs 03/13/2018 Blood Pressure 1: 140/68 Code : 8480-6 BMI: 25.6 Code : 41293-3 Heart Rate 1 : 68 bpm Height: 4'8" SpO2: 95% Weight: 114 lbs 02/22/2018 Blood Pressure 1: 166/88 Code : 8480-6 BMI: 24.7 Code : 27596-0 Heart Rate 1 : 72 bpm Height: 4'8" SpO2: 95% Weight: 110 lbs 02/01/2018 Blood Pressure 1: 162/70 Code : 8480-6 BMI: 23.2 Code : 15729-9 Heart Rate 1 : 64 bpm Height: 4'11" SpO2: 95% Weight: 115 lbs 01/18/2018 Blood Pressure 1: 192/86 Code : 8480-6 BMI: 22.6 Code : 30603-5 Heart Rate 1 : 68 bpm Height: 4'11" SpO2: 94% Weight: 112 lbs 12/21/2017 Blood Pressure 1: 110/52 Code : 8480-6 BMI: 23.0 Code : 60957-2 Heart Rate 1 : 58 bpm Height: 4'11" SpO2: 94% Weight: 114 lbs 10/10/2017 Blood Pressure 1: 168/78 Code : 8480-6 BMI: 23.0 Code : 61505-1 Heart Rate 1 : 54 bpm Height: 4'11" SpO2: 98% Weight: 114 lbs 09/07/2017 Blood Pressure 1: 142/72 Code : 8480-6 Heart Rate 1: 84 bpm Height: 4'11" SpO2: 97% Weight: 08/30/2017 Blood Pressure 1: 188/82 Code : 8480-6 BMI: 24.4 Code : 97672-3 Heart Rate 1 : 79 bpm Height: 4'11" SpO2: 88% Temperature: 38.5 (C) / 101.3 (F) Weight: 121 lbs 08/15/2017 Blood Pressure 1: 166/78 Code : 8480-6 BMI: 22.8 Code : 48051-0 Heart Rate 1 : 71 bpm Height: 4'11" SpO2: 96% Weight: 113 lbs 06/15/2017 Blood Pressure 1: 138/68 Code : 8480-6 BMI: 22.8 Code : 33643-5 Heart Rate 1 : 54 bpm Height: 4'11" SpO2: 98% Weight: 113 lbs 05/29/2017 Blood Pressure 1: 96/46 Code : 8480-6 Blood Pressure 2: 116/57 Code: 8480-6 Heart Rate 1: 54 bpm 05/11/2017 Blood Pressure 1: 144/60 Code : 8480-6 BMI: 23.8 Code : 51539-6 Heart Rate 1 : 68 bpm Height: 4'11" SpO2: 97% Weight: 118 lbs 01/05/2017 Blood Pressure 1: 134/72 Code : 8480-6 BMI: 24.8 Code : 69716-8 Heart Rate 1 : 64 bpm Height: 4'11" SpO2: 94% Weight: 123 lbs 09/20/2016 Blood Pressure 1: 148/66 Code : 8480-6 BMI: 25.4 Code : 26152-4 Heart Rate 1 : 68 bpm Height: 4'11" SpO2: 97% Weight: 126 lbs 09/01/2016 Blood Pressure 1: 162/80 Code : 8480-6 BMI: 26.1 Code : 01597-6 Heart Rate 1 : 75 bpm Height: 4'11" SpO2: 95% Weight: 129 lbs 06/02/2016 Blood Pressure 1: 144/82 Code : 8480-6 BMI: 25.4 Code : 54937-6 Heart Rate 1 : 68 bpm Height: 4'11" SpO2: 98% Weight: 126 lbs 03/25/2016 Blood Pressure 1: 140/58 Code : 8480-6 BMI: 25.9 Code : 22128-3 Heart Rate 1 : 58 bpm Height: 4'11" SpO2: 95% Weight: 128 lbs 01/26/2016 Blood Pressure 1: 138/68 Code : 8480-6 BMI: 26.3 Code : 57790-9 Heart Rate 1 : 66 bpm Height: 4'11" SpO2: 96% Weight: 130 lbs 10/29/2015 Blood Pressure 1: 180/78 Code : 8480-6 BMI: 25.7 Code : 95863-9 Heart Rate 1 : 74 bpm Height: 4'11" SpO2: 97% Weight: 127 lbs 07/21/2015 Blood Pressure 1: 136/70 Code : 8480-6 BMI: 25.9 Code : 56566-5 Heart Rate 1 : 63 bpm Height: 4'11" SpO2: 95% Weight: 128 lbs 07/08/2015 Blood Pressure 1: 140/70 Code : 8480-6 BMI: 26.5 Code : 77901-1 Heart Rate 1 : 59 bpm Height: 4'11" SpO2: 94% Weight: 131 lbs 5 oz 05/04/2015 Blood Pressure 1: 140/60 Code : 8480-6 BMI: 25.7 Code : 27442-2 Heart Rate 1 : 60 bpm Height: 4'11" SpO2: 94% Weight: 127 lbs Functional Status No Functional Status data History of Present Illness Symptom Name Status Result Effective Date Notes Hospital Follow Up _ Other: _ 08/17/2018 None Pertinent Findings Denies fever 08/17/2018 None Significant Medical Conditions diabetes 08/17/2018 None diabetes mellitus Quality chronic 08/08/2018 None diabetes [...] Codes Date EST. PATIENT, LEVEL III Diagnosis: Essential (primary) hypertension[ICD10: I10] Diagnosis: Type 2 diabetes mellitus without complications[ICD10: E11.9] Diagnosis: Myalgia, other site[ICD10: M79.18] [facility] CPT-4: 30831 08/17/2018 ([id number]) 90224 EST. PATIENT, LEVEL IV Diagnosis: Essential (primary) hypertension[ICD10: I10] Diagnosis: Type 2 diabetes mellitus without complications[ICD10: E11.9] [facility] CPT-4: 51406 08/08/2018 [id number] EST. PATIENT, LEVEL III Diagnosis: Type 2 diabetes mellitus with hyperglycemia[ICD10: E11.65] Elizabeth [facility] MD, [facility] CPT-4: 79858 07/17/2018 93746 EST. PATIENT, LEVEL III Diagnosis: Type 2 diabetes mellitus with hyperglycemia[ICD10: E11.65] Diagnosis: Weakness[ICD10: R53.1] Diagnosis: Unsteadiness on feet[ICD10: R26.81] Elizabeth Sow MD, [facility] CPT-4: 34991 06/26/2018 ([id number]) 77699 EST. PATIENT, LEVEL IV Diagnosis: Type 2 diabetes mellitus with hyperglycemia[ICD10: E11.65] Diagnosis: Essential (primary) hypertension[ICD10: I10] Diagnosis: Muscle weakness (generalized)[ICD10: M62.81] Diagnosis: Localized edema[ICD10: R60.0] Kate Sow MD, [facility] CPT- 4: 07599 06/21/2018 ([id number]) 65057 EST. 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 PATIENT, LEVEL III Diagnosis: Low back pain[ICD10: M54.5] Elizabeth Sow MD, [facility] CPT-4 : 30759 04/27/2018 ([id number]) 27828 EST. PATIENT, LEVEL IV Diagnosis: Diplopia[ICD10: H53.2] Diagnosis: Rash and other nonspecific skin eruption[ICD10: R21] Diagnosis: Type 2 diabetes mellitus with hyperglycemia[ICD10: E11.65] Laney Sow MD, [facility] CPT-4: 34887 04/20/2018 ([id number]) 63351 EST. PATIENT, LEVEL III Diagnosis: Low back pain[ICD10: M54.5] Elizabeth Sow MD, [facility] CPT-4 : 16187 04/12/2018 ([id number]) 71217 EST. PATIENT, LEVEL III Diagnosis: Essential (primary) hypertension[ICD10: I10] Diagnosis: Type 2 diabetes mellitus with hyperglycemia[ICD10: E11.65] Kate Sow MD , [facility] CPT-4: 25407 04/10/2018 ([id number]) 48652 EST. PATIENT, LEVEL III Diagnosis: Lumbago with sciatica, left side[ICD10: M54.42] Diagnosis: Essential (primary) hypertension[ICD10: I10] Laney Sow MD, [facility] CPT-4: 23462 04/03/2018 ([id number]) 41979 EST. PATIENT, LEVEL IV Diagnosis: Type 2 diabetes mellitus with hyperglycemia[ICD10: E11.65] Diagnosis: Essential (primary) hypertension[ICD10: I10] Kate [facility] MD, [facility] CPT-4: 84801 03/13/2018 ([id number]) 50644 EST. PATIENT, LEVEL IV Diagnosis: Essential (primary) hypertension[ICD10: I10] Diagnosis: Type 2 diabetes mellitus with hyperglycemia[ICD10: E11.65] Kate Sow MD , [facility] CPT-4: 11661 02/01/2018 ([id number]) 64966 EST. PATIENT, LEVEL IV Diagnosis: Type 2 diabetes mellitus with hyperglycemia[ICD10: E11.65] Diagnosis: Essential (primary) hypertension[ICD10: I10] Kate Sow MD, [facility] CPT-4: 63065 01/18/2018 ([id number]) Miscellaneous no charge Diagnosis: Type 2 diabetes mellitus with hyperglycemia[ICD10: E11.65] Elizabeth Sow MD, [facility] CPT-4: 00784 12/22/2017 ([id number]) 15210 EST. PATIENT, LEVEL IV Diagnosis: Type 2 diabetes mellitus with hyperglycemia[ICD10: E11.65] Diagnosis: Essential (primary) hypertension[ICD10: I10] Diagnosis: Muscle weakness (generalized)[ICD10: M62.81] Kate Sow MD, [facility] CPT-4: 06464 12/21/2017 [id number] EST. PATIENT, LEVEL IV Diagnosis: Type 2 diabetes mellitus without complications[ICD10: E11.9] Diagnosis: Mixed hyperlipidemia[ICD10: E78.2] Diagnosis: Essential (primary) hypertension[ICD10: I10] Elizabeth Sow MD, [facility] CPT-4: 03325 10/10/2017 87912 EST. PATIENT, LEVEL III Diagnosis: Weakness[ICD10: R53.1] Diagnosis: Essential (primary) hypertension[ICD10: I10] Elizabeth Sow MD, [facility] CPT-4: 59133 09/07/2017 49146 EST. PATIENT, LEVEL III Diagnosis: Encounter for follow-up examination after completed treatment for conditions other than malignant neoplasm[ICD10: Z09] Diagnosis: Weakness[ICD10: R53.1] Diagnosis: Essential (primary) hypertension[ICD10: I10] Diagnosis: Dyspnea, unspecified[ICD10: R06.00] Diagnosis: Unsteadiness on feet[ICD10: R26.81] Elizabeth Sow MD, [facility] CPT-4: 23249 08/30/2017 ([id number]) 72677 EST. PATIENT, LEVEL IV Diagnosis: Type 2 diabetes mellitus without complications[ICD10: E11.9] Diagnosis: Essential (primary) hypertension[ICD10: I10] Kate Sow MD, [facility] CPT-4: 30808 08/15/2017 ([id number]) 79707 EST. PATIENT, LEVEL IV Diagnosis: Type 2 diabetes mellitus without complications[ICD10: E11.9] Diagnosis: Essential (primary) hypertension[ICD10: I10] Diagnosis: Unsteadiness on feet[ICD10: R26.81] Kate Sow MD, [facility] CPT-4: 76811 06/15/2017 ([id number]) Miscellaneous no charge Diagnosis: Essential (primary) hypertension[ICD10: I10] Laney Sow MD, [facility] CPT-4: 08570 05/29/2017 ([id number]) 13453 EST. PATIENT, LEVEL IV Diagnosis: Type 2 diabetes mellitus without complications[ICD10: E11.9] Diagnosis: Essential (primary) hypertension[ICD10: I10] Diagnosis: Mixed hyperlipidemia[ICD10: E78.2] Kate Sow MD, [facility] CPT-4: 59907 05/11/2017 ([id number]) 01996 EST. PATIENT, LEVEL IV Diagnosis: Type 2 diabetes mellitus without complications[ICD10: E11.9] Diagnosis: Essential (primary) hypertension[ICD10: I10] Kate Sow MD, [facility] CPT-4: 31612 01/05/2017 ([id number]) 72344 EST. PATIENT, LEVEL III Diagnosis: Essential (primary) hypertension[ICD10: I10] Kate Sow MD, [facility] CPT-4: 78754 09/20/2016 ([id number]) 55830 EST. PATIENT, LEVEL III Diagnosis: Essential (primary) hypertension[ICD10: I10] Laney Sow MD, [facility] CPT-4: 66418 09/01/2016 ([id number]) Miscellaneous no charge Diagnosis: Impacted cerumen, right ear[ICD10: H61.21] Elizabeth Sow MD, [facility] CPT-4: 33118 06/08/2016 ([id number]) 88340 EST. PATIENT, LEVEL IV Diagnosis: Type 2 diabetes mellitus without complications[ICD10: E11.9] Diagnosis: Essential (primary) hypertension[ICD10: I10] Diagnosis: Encounter for immunization[ICD10: Z23] Kate Sow MD, [facility] CPT-4: 52333 06/02/2016 01410 EST. PATIENT, LEVEL III Diagnosis: Essential (primary) hypertension[ICD10: I10] Diagnosis: Other specified cardiac arrhythmias[ICD10: I49.8] Elizabeth Sow MD, [facility] CPT-4: 93991 03/25/2016 ([id number]) 55371 EST. PATIENT, LEVEL IV Diagnosis: Type 2 diabetes mellitus without complications[ICD10: E11.9] Diagnosis: Essential (primary) hypertension[ICD10: I10] Kate Sow MD, [facility] CPT-4: 59220 01/26/2016 ([id number]) 47653 EST. PATIENT, LEVEL IV Diagnosis: Essential (primary) hypertension[ICD10: I10] Diagnosis: Type 2 diabetes mellitus without complications[ICD10: E11.9] Kate Sow MD, [facility] CPT-4: 57892 10/29/2015 ([id number]) 23612 EST. PATIENT, LEVEL IV Diagnosis: Essential (primary) hypertension[ICD10: I10] Diagnosis: Dyspnea, unspecified[ICD10: R06.00] Kate Sow MD, [facility] CPT-4: 54615 07/21/2015 ([id number]) 38048 EST. PATIENT, LEVEL III Diagnosis: Edema, unspecified[ICD10: R60.9] [facility] CPT-4: 63206 07/08/2015 ([id number]) OFFICE VISIT, NEW - LEVEL 4 Diagnosis: ESSENTIAL HYPERTENSION[ICD9: 401.9] Diagnosis: DIABETES TYPE II[ICD9: 250.00] [facility] CPT- 4: 26701 05/04/2015 Plan of Care Planned Activity Notes Codes Status Date Visit Plan: Hypertension - The patient has been counseled to cut [...] call for acute concerns. Diabetes Mellitus - Uncontrolled - per recent [...] to allow for greater blood glucose control. myalgias - will stop atorvastatin - pt is to notify clinic if symptoms do not improve or with any questions or concerns. 08/17/2018 Appointment: Elizabeth Milner WPtel: [address] [place], [place] [address] (15 min) Moderate 08/17/2018 Patient Education: Patient Medication Summary Completed 08/17/2018 Patient Education: Diabetes Completed 08/17/2018 Visit Plan: Diabetes Mellitus - improved [...] call for acute concerns. 08/08/2018 Appointment: [facility] [phone] [facility] 30 min appointments only in this slot 08/08/2018 Patient Education: Patient Medication Summary Completed 08/08/2018 Patient Education: Diabetes Completed 08/08/2018 Appointment: Kate Sow WPtel: [phone] [facility] [place] (15 min) Moderate 08/07/2018 Visit Plan: Diabetes [...] glucose control. 07/17/2018 Appointment: [phone] [facility] [place] (15 min) Moderate 07/17/2018 Patient [...] instability. 06/26/2018 Appointment: [facility] [phone] [facility] (15 min) Moderate 06/26/2018 Patient Education: Patient Medication Summary Completed 06/26/2018 Patient Education: Diabetes Completed 06/26/2018 Visit Plan: Diabetes improved control while at the [facility] - discussed with patient and her daughte [...] Assisted Living. 06/21/2018 Appointment: Kate [facility]ow [facility]Ptel[facility] [phone] [facility] [place] (15 min) Moderate 06/21/2018 Patient Education: Patient Medication Summary Completed 06/21/2018 Patient Education: Diabetes Completed 06/21/2018 Appointment: [facility]el[facility] [phone] [facility] [place] (15 min) Moderate 05/09/2018 Visit Plan: [...] better. 05/02/2018 Appointment: Kate Sow WPtel: [facility] (15 min) Moderate 05/02/2018 Patient Education: Patient Medication Summary Completed 05/02/2018 Care Plan: X-RAY EXAM L-S SPINE 10/21 S LOINC : 81215-3 Pending 05/02/2018 Visit Plan: Low back pain- the patient was instructed in appropriate posture - The pt is to use prn antiinflammatories to manage acute pain. The patient is to call the office if the pain is worsening or does not improve. 04/27/2018 Appointment: Elizabeth Milner WPtel: [phone] [facility] (15 min) Moderate 04/27/2018 Patient Education: Patient Medication Summary Completed 04/27/2018 Visit Plan: Double vision-suspect due to elevated blood sugars -recommend patient bring in log of blood sugars to next appt -notify credit counselor of elevated readings and watch diet closely -also recommend f/u with eye doctor Rash-suspect shingles-rx for acyclovir provided and instructed on use 04/20/2018 Appointment: Laney Mcmillan WPtel: [phone] [phone] [place] (15 min) Moderate 04/20/2018 Patient Education: [...] they worsen. 04/12/2018 Appointment: Elizabeth Milner WPtel: [address] [place] [address] (15 min) Moderate 04/12/2018 Patient Education: Patient [...] controlled. 04/10/2018 Appointment: Kate Sow WPtel: [facility] (15 min) Moderate 04/10/2018 Patient Education: Patient [...] concerns. 04/03/2018 Appointment: Laney Mcmillan [facility]Ptel[facility] [phone] [facility] (15 min) Moderate 04/03/2018 Patient Education: Patient [...] at home. 03/13/2018 Appointment: Kate [facility]ow [facility]Ptel[facility] [phone] [facility] (15 min) Moderate 03/13/2018 Patient Education: Patient [...] diet. 02/01/2018 Appointment: Kate Sow WPtel: [phone] [facility] (15 min) Moderate 02/01/2018 Patient Education: [...] 100mg daily. 01/18/2018 Appointment: Kate [facility]ow WPtel[facility] [phone] [facility] (15 min) Moderate 01/18/2018 Patient Education: Patient Medication Summary Completed 01/18/2018 Appointment: Kate [facility]ow WPtel: [phone] [facility] [place] (15 min) Moderate 01/11/2018 Appointment: Kate Sow WPtel: [phone] [facility] (15 min) Moderate 12/25/2017 Visit Plan: Diabetes [...] home. Generalized weakness - physical therapy at [facility] outpt 12/21/2017 Appointment: Kate Sow WPtel: [phone] [facility] (15 min) Moderate 12/21/2017 Patient Education: Patient Medication Summary Completed 12/21/2017 Appointment: Kate Sow WPtel: [phone] [facility] (15 min) Moderate 12/13/2017 Visit Plan: Hypertension [...] control. 10/10/2017 Appointment: Elizabeth Milner WPtel: [phone] [facility] [place] (15 min) Moderate 10/10/2017 Patient Education: [...] home. 09/07/2017 Appointment: Elizabeth Milner WPtel: [phone] [facility] [place] (30 min) Complex 09/07/2017 Patient Education: Patient Medication Summary Completed 09/07/2017 Appointment: Kate Sow WPtel: [phone] [facility] [place] (15 min) Moderate 09/05/2017 Visit Plan: Hospital follow up - Dr. Sow in to see pt - pt was in the hospital with uncontrolled hypertension and a. fib - controlled at this time - persistent weakness requiring ongoing PT and assistance with some ADLs and medication management - will admit pt to nursing home facility for ongoing rehabilitation. 08/30/2017 Appointment: Elizabeth Milner WPtel: [phone] [facility]6[address] (30 min) Complex 08/30/2017 Patient Education: Patient Medication Summary Completed 08/30/2017 Appointment: Elizabeth Milner WPtel: [address] [place], [place] [address] (15 min) Moderate 08/29/2017 Visit Plan: [...] at home. 08/15/2017 Appointment: Kate Sow WPtel: [facility]9 [facility]6[address] (15 min) Moderate 08/15/2017 Patient Education: Patient Medication Summary Completed 08/15/2017 Care Plan: %Hba1C LOINC : 55008-0 Cancelled 08/15/2017 Referral: [facility] WPtel: 101 [facility]66[facility] Patient's informed. Completed 06/26/2017 Visit Plan: [...] glucose control. Gait Instability - referral to [facility] physical therapy for gait instability. Hypertension - well controlled - continue with current medications , continue with no added salt diet. Pt has been encouraged to exercise daily. The pt has been advised to call the office if there are any acute concerns about change in blood pressure readings at home. 06/15/2017 Appointment: Kate Sow WPtel: [address] [place], [place] [address] (15 min) Moderate 06/15/2017 Patient Education: Patient Medication Summary Completed 06/15/2017 Care Plan: Referral Order SNOMED-CT : [id number] Pending 06/15/2017 Appointment: Nurse Visit 05/29/2017 Patient [...] and come in here or go to [facility] or [facility] to get this set of labs [...] Statin 05/11/2017 Appointment: Kate Sow WPtel: [phone] [facility] (15 min) Moderate 05/11/2017 Patient Education: [...] daily. 01/05/2017 Appointment: Kate Sow WPtel: [phone] [facility] (15 min) Moderate 01/05/2017 Patient Education: Patient Medication Summary Completed 01/05/2017 Visit Plan: Hypertension - well controlled - continue with current medications, continue with no added salt diet. Pt has been encouraged to exercise daily. The pt has been advised to call the office if there are any acute concerns about change in blood pressure readings at home. 09/20/2016 Appointment: Kate Sow WPtel: [phone] [facility] (30 min) Complex 09/20/2016 Patient Education: Patient [...] concerns. 09/01/2016 Appointment: Laney Mcmillan WPtel: [phone] [phone] (30 min) Complex 09/01/2016 Patient Education: Patient Medication Summary Completed 09/01/2016 Appointment: Kate Sow WPtel: [phone] [facility] (15 min) Moderate 08/31/2016 Appointment: Nurse [...] less controlled. 06/02/2016 Appointment: Kate Sow WPtel: [facility] (15 min) Moderate 06/02/2016 Patient Education: Patient Medication Summary Completed 06/02/2016 Patient Education: Hypertension Completed 06/02/2016 Visit Plan: Bradycardia - reports pt has brought in indicates that the pt has been having a pulse in the 40s-50s. Will adjust medications, pt is to notify clinic if her symptoms do not improve, or with any concerns. 03/25/2016 Appointment: Laney Mcimllan WPtel: [phone] [phone] [place] (10 min) Simple 03/25/2016 Patient Education: [...] DM - managed by Dr. Johnson from [facility] 01/26/2016 Patient Education: Patient Medication Summary Completed 01/26/2016 Patient Education: Hypertension Completed 01/26/2016 Appointment: Laney Mcmillan WPtel: [phone] [phone] (30 min) Complex 12/31/2015 Visit Plan: Hypertension [...] less controlled. 10/29/2015 Appointment: Kate Sow WPtel: [facility]5 [facility] (15 min) Moderate 10/29/2015 Patient Education: Patient Medication Summary Completed 10/29/2015 Patient Education: Hypertension Completed 10/29/2015 Appointment: Kate Sow WPtel: [phone] [facility] (15 min) Moderate 09/14/2015 Visit Plan: [...] today, as soon as you get to [place], monday morning, then start taking the lasix [...] handout Begin using muscle rub on back (Delphos balm) 05/04/2015 Appointment: Kate Sow WPtel: [phone] [facility] [place] (S) New Patient 05/04/2015 Patient Education: Patient Medication Summary Completed 05/04/2015 Patient Education: Hypertension Completed 05/04/2015 Referral: [phone] [facility] [place] Referral Appointment Requested Instructions Comment . Low back pain- the patient was [...] DM - managed by Dr. Johnson from [facility] . Diabetes Mellitus - Uncontrolled - per [...] allow for greater blood glucose control. . Hospital follow up - Dr. Sow in to see pt - pt was in the hospital with uncontrolled hypertension and a. fib - controlled at this time - persistent weakness requiring ongoing PT and assistance with some ADLs and medication management - will admit pt to nursing home facility for ongoing rehabilitation. Stop the Atorvastatin - I think it is causing you leg pains - stop for 2 weeks and then let me know how you are feeling Start Co-Q10 over the counter - it will help your leg pain Take Keflex antibiotic until finished take a probiotic while you are on the antibiotic Keep appointment with Dr. Johnson. Let me know if you are not feeling any better or with any questions or concerns.. Hypertension - The patient has been counseled to cut [...] call for acute concerns. Diabetes Mellitus - Uncontrolled - per recent [...] to allow for greater blood glucose control. myalgias - will stop atorvastatin - pt is to notify clinic if symptoms do not improve or with any questions or concerns. Increase the toujeo to 20 units . [...] monday, monday and with the lasix . Hypertension - well controlled - continue [...] of blood sugars to next appt -notify credit counselor of elevated readings and watch diet closely [...] not , go to the pharmacy to pickling solution maker the toujeo script. if the [...] glucose control. Gait Instability - referral to [facility] physical therapy for gait instability. Hypertension [...] monitor symptoms, call if not improving. . Bradycardia - reports pt has brought in indicates that the pt has been having a pulse in the 40s-50s. Will adjust medications, pt is to notify clinic if her symptoms do not improve, or with any concerns. . Medicare Exam - today we discussed [...] become less controlled. . Diabetes Mellitus - Uncontrolled - per [...] and how she is feeling on Monday. Stretching and exercises for back- follow instructions from handout Begin using muscle rub on back (Delphos balm) Begin taking Lasix again No blood [...] handout Begin using muscle rub on back (Delphos balm) . Diabetes Mellitus - improved control- [...] for acute concerns. . Diabetes Mellitus - Uncontrolled - per [...]
--- OUTSIDE RECORDS SUMMARY | 2018-08-24 17:53 | XMS REPORT | CCD ---
Author Author [facility] Organization [facility] Address [address] [place] [address] Phone Care Team Providers Care Plumber'S Helper Name Role Phone PP Unavailable CCM Unavailable Summary Purpose Interface Exchange Insurance Providers Payer name Policy type / Coverage type Covered democrat ID Effective Begin Date Effective End Date WPS Medicare Part B Medicare Part B [id number] Unknown Unknown [employer] Medicare Part B [id number] Unknown Unknown Family history Mother Diagnosis Age [...] Unknown 2 05/04/[address]: 963801408 Never smoker 05/04/2015 Alcohol history Unknown occasionally [...] Fill Instructions Levaquin 250 mg tablet RxNorm: 136455 2 tabs on 1st day then 1 tab day 2-7 Tablet( s) PO daily 08/20/2018 08/26/2018 Active dc keflex Levaquin 250 mg tablet RxNorm: 604499 2 tabs on 1st day then 1 tab day 2-7 Tablet( s) PO daily 08/20/2018 08/19/2018 Inactive dc keflex Keflex 500 mg capsule RxNorm: 735682 1 Capsule(s) PO TID 201708/19/2018 Inactive Estevan SoloStar U-300 Insulin 300 unit/mL (1.5 mL) subcutaneous pen RxNorm: 1121380 25 Unit(s) SQ QHS MANAGED BY DR. JOHNSON 201711/28/2018 Active Norvasc 10 mg tablet RxNorm: 285660 1 Tablet(s) PO daily 201701/25/2019 Active update RX Eliquis 2.5 mg tablet RxNorm: 8107515 Tablet(s) PO TAKE ONE TABLET BY MOUTH TWICE DAILY 06/21/2018 06/15/2019 Active cyclobenzaprine 5 mg tablet RxNorm: 596567 1/2 Tablet(s) PO BID as needed muscle spasms/back pain 05/02/2018 05/31/2018 Inactive Voltaren 1 % topical gel RxNorm: 492932 1 Application TOP QID 04/27/2018 No Stop Date Active tramadol 50 mg tablet RxNorm: 668378 1 Tablet(s) PO TID as needed for pain 04/27/2018 05/01/2018 Inactive acyclovir 400 mg tablet RxNorm: 125545 2 Tablet(s) PO QID 04/2006/20/2018 Inactive mupirocin 2 % topical ointment RxNorm: 205808 1 Application TOP BID 04/20/2018 04/29/2018 Inactive right cheek/nose gentamicin 0.3 % eye drops RxNorm: 268876 2 Drop(s) ophthalmic (eye) left eye Q8 04/16/2018 No Stop Date Active prednisone 20 mg tablet RxNorm: 845399 2 Tablet(s) PO daily 04/12/2018 Inactive prednisone 20 mg tablet RxNorm: 858968 2 Tablet(s) PO daily 04/17/2018 Inactive Kenalog 40 mg/mL suspension for injection RxNorm: 4815759 1 Milliliter(s) Inj 04/12/2018 04/12/2018 Inactive losartan 100 mg tablet RxNorm: 166122 1 Tablet(s) PO QAM 201712/28/2018 Active update RX -dose should be 100mg Norvasc 5 mg tablet RxNorm: 937295 1 Tablet(s) PO daily 201707/29/2018 Inactive update RX losartan 50 mg tablet RxNorm: 199681 TAKE ONE TABLET BY MOUTH ONCE DAILY IN THE MORNING 03/26/2018 04/02/2018 Inactive Humalog U-100 Insulin 100 unit/mL subcutaneous solution RxNorm: 373801 15 Unit(s) SQ AC MANAGED BY DR. JOHNSON 03/13/2018 No Stop Date Active 201- 200 17 units, greater than 300 21 units Estevan Marte U-300 Insulin 300 unit/mL (1.5 mL) subcutaneous pen RxNorm: 2186071 20 Unit(s) SQ QHS MANAGED BY DR. JOHNSON 201707/10/2018 Inactive losartan 100 mg tablet RxNorm: 210101 1 Tablet(s) PO QAM 201704/02/2018 Inactive pantoprazole 40 mg tablet,delayed release RxNorm: 512573 1 Tablet(s) PO daily 01/11/2018 07/19/2018 Inactive carvedilol 12.5 mg tablet RxNorm: 652009 1 Tablet(s) PO BID 07/19/2018 Inactive Toujeo SoloStar U-300 Insulin 300 unit/mL (1.5 mL) subcutaneous pen RxNorm: 5513031 15 Unit(s) SQ QHS MANAGED BY DR. JOHNSON 201703/12/2018 Inactive Multaq 400 mg tablet RxNorm: 096108 1 Tablet(s) PO BID 201712/14/2018 Active potassium chloride ER 10 mEq tablet,extended release RxNorm: 363083 1 Tablet(s) PO daily while on the Lasix 10/18/201701/2018 Inactive losartan 50 mg tablet RxNorm: 723992 1 Tablet(s) PO QAM 201601/17/2018 Inactive Lasix 20 mg tablet RxNorm: 295849 1 Tablet(s) PO daily 201610/03/2017 Inactive potassium chloride ER 10 mEq tablet,extended release RxNorm: 718700 1 Tablet(s) PO daily while on the Lasix 08/30/2017 Inactive Toujeo SoloStar 300 unit/mL (1.5 mL) subcutaneous insulin pen RxNorm: 7194174 35 Unit(s) SQ QHS MANAGED BY DR. JOHNSON 06/15/2017 10/12/2017 Inactive Eliquis 5 mg tablet RxNorm: 5132500 TAKE ONE TABLET BY MOUTH TWICE DAILY 03/01/2017 02/23/2018 Inactive Januvia 100 mg tablet RxNorm: 247676 1/2 Tablet(s) PO daily 07/19/2018 Inactive losartan 50 mg tablet RxNorm: 443504 1 Tablet(s) PO BID 201509/13/2017 Inactive amlodipine 10 mg tablet RxNorm: 737606 1 Tablet(s) PO daily 06/14/2017 Inactive generic for NORVASC losartan 50 mg tablet RxNorm: 264460 1 Tablet(s) PO daily 201508/31/2016 Inactive Toujeo SoloStar 300 unit/mL (1.5 mL) subcutaneous insulin pen RxNorm: 5064724 40 Unit(s) SQ QHS MANAGED BY DR. JOHNSON 07/01/2016 06/14/2017 Inactive Toujeo SoloStar 300 unit/mL (1.5 mL) subcutaneous insulin pen RxNorm: 6392463 35 Unit(s) SQ QHS MANAGED BY DR. JOHNSON 06/02/2016 06/30/2016 Inactive Humalog 100 unit/mL subcutaneous solution RxNorm: 697205 15 Unit(s) SQ AC MANAGED BY DR. JOHNSON 06/02/2016 03/12/2018 Inactive carvedilol 3.125 mg tablet RxNorm: 920716 1 Tablet(s) PO BID 04/23/2016 Inactive simvastatin 40 mg tablet RxNorm: 251170 1 Tablet(s) PO QHS 07/19/2018 Inactive Humalog 100 unit/mL subcutaneous solution RxNorm: 787754 13 Unit(s) SQ AC MANAGED BY DR. JOHNSON 01/26/2016 06/01/2016 Inactive Eliquis 5 mg tablet RxNorm: 8257303 1 Tablet(s) PO BID 201501/13/2017 Inactive carvedilol 6.25 mg tablet RxNorm: 086804 1 Tablet(s) PO BID 2016 Inactive Humalog 100 unit/mL subcutaneous solution RxNorm: 597487 Unit(s) SQ UD as directed by office 08/07/2015 01/25/2016 Inactive Klor-Con 10 mEq tablet,extended release RxNorm: 028375 1 Tablet(s) PO daily as needed 06/26/2015 10/23/2015 Inactive Lasix 20 mg tablet RxNorm: 048887 1 Tablet(s) PO daily as needed 06/26/2015 10/23/2015 Inactive fluticasone 50 mcg/actuation nasal spray,suspension RxNorm: 118317 2 [place] NASAL daily No Start Date Active metoprolol succinate ER 50 mg tablet,extended release 24 hr RxNorm: 899069 1 Tablet(s) PO daily No Start Date Active aspirin 81 mg capsule,delayed release RxNorm: 217864 1 Capsule(s) PO daily No Start Date Active Novolog U-100 Insulin aspart 100 unit/mL subcutaneous solution RxNorm: 673338 SSI 80-150 10u 151-200 15u 201-300 17u over 300 21u Unit(s) SQ AC & HS as needed No Start Date Active cetirizine 10 mg tablet RxNorm: 3486825 1 Tablet(s) PO daily No Start Date Active atorvastatin 40 mg tablet RxNorm: 336205 1 Tablet(s) PO daily No Start Date Active Culturelle Probiotics 10 billion cell-200 mg capsule RxNorm: 1 Capsule(s) PO TID No Start Date Active losartan 25 mg tablet RxNorm: 714104 1 Tablet(s) PO daily No Start Date 08/31/2016 Inactive losartan 100 mg tablet RxNorm: 567235 1 Tablet(s) PO daily No Start Date 06/30/2016 Inactive gentamicin 0.3 % eye drops RxNorm: 154644 2 Drop(s) ophthalmic (eye) left eye Q8 No Start Date 04/15/2018 Inactive Multaq 400 mg tablet RxNorm: 956921 1 Tablet(s) PO BID No Start Date 12/19/2017 Inactive Klor-Con 10 mEq tablet,extended release RxNorm: 645126 1 Tablet(s) PO daily as needed No Start Date 06/25/2015 Inactive simvastatin 40 mg tablet RxNorm: 590693 1 Tablet(s) PO daily No Start Date 02/04/2016 Inactive carvedilol 6.25 mg tablet RxNorm: 891812 1 Tablet(s) PO BID No Start Date 11/30/2015 Inactive Eliquis 5 mg tablet RxNorm: 7493945 1 Tablet(s) PO BID No Start Date 01/19/2016 Inactive Toujeo SoloStar 300 unit/mL (1.5 mL) subcutaneous insulin pen RxNorm: 4395055 33 Unit(s) SQ QHS MANAGED BY DR. JOHNSON No Start Date 06/01/2016 Inactive Lasix 20 mg tablet RxNorm: 777334 1 Tablet(s) PO daily as needed No Start Date 06/25/2015 Inactive Humalog 100 unit/mL subcutaneous solution RxNorm: 555838 10 Unit(s) SQ TID No Start Date 08/06/2015 Inactive amlodipine 5 mg tablet RxNorm: 970155 1 Tablet(s) PO daily No Start Date 08/31/2016 Inactive Norvasc 2.5 mg tablet RxNorm: 858781 1 Tablet(s) PO daily No Start Date 04/02/2018 Inactive Medication Administered Medication Codes Instructions Start Date Status Kenalog 40 mg/mL suspension for injection RxNorm: 7999992 1Milliliter 04/12/2018 No longer Active Immunizations Vaccine [...] 45.7 % 05/25/2017 Cbc With Differential Ord2 [place]% 8.9 % 05/25/2017 Cbc With Differential Ord2 [...] 3.78 K/ul 05/25/2017 Cbc With Differential Ord2 [place] ABS# 0.7 K/ul 05/25/2017 Cbc With Differential Ord2 Eos ABS# 0.8 K/ul 05/25/2017 Cbc With Differential Ord2 Baso ABS# 0.3 K/ul 05/25/2017 Manual Differential Ord52 D-Neutr 50 % 05/25/2017 Manual Differential Ord52 D-Lymph 38 % 05/25/2017 Manual Differential Ord52 D-Eos 10 % 05/25/2017 Manual Differential Ord52 D-1 2 NRBC 05/25/2017 Comp Metabolic Kre845 NA 140 mEq/L 05/25/2017 Comp Metabolic Kmg736 K 4.0 mEq/L 05/25/2017 Comp Metabolic Zqt954 CL 107 mEq/L 05/25/2017 Comp Metabolic Mzm656 CO2 22.0 mEq/L 05/25/2017 Comp Metabolic Wnd476 ANION GAP 15 05/25/2017 Comp Metabolic Dnx322 GLUCOSE 97 mg/dL 05/25/2017 Comp Metabolic Foz551 Creat 0.9 mg/dL 05/25/2017 Comp Metabolic Pcl829 eGFR 61 ml/min/1.73m2 05/25/2017 Comp Metabolic Ltp004 BUN 16 mg/dL 05/25/2017 Comp Metabolic Idu401 B/C Ratio 17.4 Ratio 05/25/2017 Comp Metabolic Wny501 CALCIUM 9.1 mg/dL 05/25/2017 Comp Metabolic Cnn176 ALK PHOS 109 U/L 05/25/2017 Comp Metabolic Swc317 AST(SGOT) 19 U/L 05/25/2017 Comp Metabolic Hiq132 ALT(SGPT) 17 U/L 05/25/2017 Comp Metabolic Wru792 BILI T 0.4 mg/dL 05/25/2017 Comp Metabolic Tpp800 ALBUMIN 3.3 g/dL 05/25/2017 Comp Metabolic Yex089 TPRO 6.0 g/dL 05/25/2017 Comp Metabolic Oqc484 GLOB 2.7 g/dL 05/25/2017 Comp Metabolic Lyr600 A/G Ratio 1.2 Ratio 05/25/2017 Comp Metabolic Iov006 Osmo 281 mOsmo 05/25/2017 Lipid Ord30 CHOL 204 mg/dL 05/25/2017 Lipid Ord30 HDL 49.0 mg/dl 05/25/2017 Lipid Ord30 TRIG 117 mg/dL 05/25/2017 Lipid Ord30 LDL 132 mg/dL 05/25/2017 Lipid Ord30 C/HDL 4.2 Ratio 05/25/2017 %Hba1C Lcf441 % HbA1c 72854-6 10.5 % 05/25/2017 %Hba1C Iih688 Gluc Ave 255 mg/dL 05/25/2017 Microalbumin Cvg036 MicroAlb 95.0 mg/dL 05/25/2017 Review of Systems [...] Procedures Procedure Codes Date DRAIN/INJECT JOINT/BURSA CPT-4: 36835 04/12/2018 TRIAMCINOLONE ACET INJ NOS CPT-4: J3301 04/12/2018 PPPS, SUBSEQ VISIT CPT -4: G0439 02/22/2018 ADMIN INFLUENZA VIRUS VAC CPT-4: G0008 06/02/2016 FLU VACC PRSV FREE INC ANTIG CPT-4: 21209 06/02/2016 Vital Signs Date Vital 08/17/2018 Blood Pressure 1: 140/66 Code : 8480-6 BMI: 25.3 Code : 52812-6 Heart Rate 1 : 66 bpm Height: 4'8" SpO2: 97% Weight: 113 lbs 08/08/2018 Blood Pressure 1: 174/70 Code : 8480-6 BMI: 25.3 Code : 76099-6 Heart Rate 1 : 60 bpm Height: 4'8" SpO2: 97% Weight: 113 lbs 07/17/2018 Blood Pressure 1: 148/62 Code : 8480-6 BMI: 24.9 Code : 69281-7 Heart Rate 1 : 65 bpm Height: 4'8" SpO2: 97% Weight: 111 lbs 06/26/2018 Blood Pressure 1: 118/72 Code : 8480-6 BMI: 25.1 Code : 70489-0 Heart Rate 1 : 58 bpm Height: 4'8" SpO2: 97% Weight: 112 lbs 06/21/2018 Blood Pressure 1: 120/72 Code : 8480-6 BMI: 25.1 Code : 40946-7 Heart Rate 1 : 56 bpm Height: 4'8" SpO2: 96% Weight: 112 lbs 05/02/2018 Blood Pressure 1: 178/76 Code : 8480-6 BMI: 24.7 Code : 59014-3 Heart Rate 1 : 72 bpm Height: 4'8" SpO2: 98% Weight: 110 lbs 04/27/2018 Blood Pressure 1: 164/78 Code : 8480-6 BMI: 24.7 Code : 45986-9 Heart Rate 1 : 69 bpm Height: 4'8" SpO2: 97% Weight: 110 lbs 04/20/2018 Blood Pressure 1: 140/80 Code : 8480-6 BMI: 24.7 Code : 47425-5 Heart Rate 1 : 83 bpm Height: 4'8" SpO2: 97% Weight: 110 lbs 04/12/2018 Blood Pressure 1: 146/78 Code : 8480-6 Heart Rate 1: 68 bpm Height: SpO2: 98% Weight: 04/10/2018 Blood Pressure 1: 146/60 Code : 8480-6 BMI: 24.7 Code : 67419-3 Heart Rate 1 : 60 bpm Height: 4'8" SpO2: 95% Weight: 110 lbs 04/03/2018 Blood Pressure 1: 204/80 Code : 8480-6 BMI: 24.9 Code : 17041-1 Heart Rate 1 : 62 bpm Height: 4'8" SpO2: 98% Weight: 111 lbs 03/13/2018 Blood Pressure 1: 140/68 Code : 8480-6 BMI: 25.6 Code : 49726-4 Heart Rate 1 : 68 bpm Height: 4'8" SpO2: 95% Weight: 114 lbs 02/22/2018 Blood Pressure 1: 166/88 Code : 8480-6 BMI: 24.7 Code : 07181-4 Heart Rate 1 : 72 bpm Height: 4'8" SpO2: 95% Weight: 110 lbs 02/01/2018 Blood Pressure 1: 162/70 Code : 8480-6 BMI: 23.2 Code : 79309-7 Heart Rate 1 : 64 bpm Height: 4'11" SpO2: 95% Weight: 115 lbs 01/18/2018 Blood Pressure 1: 192/86 Code : 8480-6 BMI: 22.6 Code : 50001-1 Heart Rate 1 : 68 bpm Height: 4'11" SpO2: 94% Weight: 112 lbs 12/21/2017 Blood Pressure 1: 110/52 Code : 8480-6 BMI: 23.0 Code : 26260-1 Heart Rate 1 : 58 bpm Height: 4'11" SpO2: 94% Weight: 114 lbs 10/10/2017 Blood Pressure 1: 168/78 Code : 8480-6 BMI: 23.0 Code : 45065-7 Heart Rate 1 : 54 bpm Height: 4'11" SpO2: 98% Weight: 114 lbs 09/07/2017 Blood Pressure 1: 142/72 Code : 8480-6 Heart Rate 1: 84 bpm Height: 4'11" SpO2: 97% Weight: 08/30/2017 Blood Pressure 1: 188/82 Code : 8480-6 BMI: 24.4 Code : 80205-8 Heart Rate 1 : 79 bpm Height: 4'11" SpO2: 88% Temperature: 38.5 (C) / 101.3 (F) Weight: 121 lbs 08/15/2017 Blood Pressure 1: 166/78 Code : 8480-6 BMI: 22.8 Code : 36094-3 Heart Rate 1 : 71 bpm Height: 4'11" SpO2: 96% Weight: 113 lbs 06/15/2017 Blood Pressure 1: 138/68 Code : 8480-6 BMI: 22.8 Code : 66728-7 Heart Rate 1 : 54 bpm Height: 4'11" SpO2: 98% Weight: 113 lbs 05/29/2017 Blood Pressure 1: 96/46 Code : 8480-6 Blood Pressure 2: 116/57 Code: 8480-6 Heart Rate 1: 54 bpm 05/11/2017 Blood Pressure 1: 144/60 Code : 8480-6 BMI: 23.8 Code : 49574-4 Heart Rate 1 : 68 bpm Height: 4'11" SpO2: 97% Weight: 118 lbs 01/05/2017 Blood Pressure 1: 134/72 Code : 8480-6 BMI: 24.8 Code : 97671-8 Heart Rate 1 : 64 bpm Height: 4'11" SpO2: 94% Weight: 123 lbs 09/20/2016 Blood Pressure 1: 148/66 Code : 8480-6 BMI: 25.4 Code : 80527-9 Heart Rate 1 : 68 bpm Height: 4'11" SpO2: 97% Weight: 126 lbs 09/01/2016 Blood Pressure 1: 162/80 Code : 8480-6 BMI: 26.1 Code : 27168-8 Heart Rate 1 : 75 bpm Height: 4'11" SpO2: 95% Weight: 129 lbs 06/02/2016 Blood Pressure 1: 144/82 Code : 8480-6 BMI: 25.4 Code : 34712-2 Heart Rate 1 : 68 bpm Height: 4'11" SpO2: 98% Weight: 126 lbs 03/25/2016 Blood Pressure 1: 140/58 Code : 8480-6 BMI: 25.9 Code : 84086-8 Heart Rate 1 : 58 bpm Height: 4'11" SpO2: 95% Weight: 128 lbs 01/26/2016 Blood Pressure 1: 138/68 Code : 8480-6 BMI: 26.3 Code : 71185-5 Heart Rate 1 : 66 bpm Height: 4'11" SpO2: 96% Weight: 130 lbs 10/29/2015 Blood Pressure 1: 180/78 Code : 8480-6 BMI: 25.7 Code : 51341-4 Heart Rate 1 : 74 bpm Height: 4'11" SpO2: 97% Weight: 127 lbs 07/21/2015 Blood Pressure 1: 136/70 Code : 8480-6 BMI: 25.9 Code : 81097-5 Heart Rate 1 : 63 bpm Height: 4'11" SpO2: 95% Weight: 128 lbs 07/08/2015 Blood Pressure 1: 140/70 Code : 8480-6 BMI: 26.5 Code : 62561-1 Heart Rate 1 : 59 bpm Height: 4'11" SpO2: 94% Weight: 131 lbs 5 oz 05/04/2015 Blood Pressure 1: 140/60 Code : 8480-6 BMI: 25.7 Code : 71872-4 Heart Rate 1 : 60 bpm Height: [...] Myalgia, other site[ICD10: M79.18] Elizabeth Sow MD, [facility] CPT-4: 37814 08/17/2018 ([id number]) 16483 EST. PATIENT, LEVEL IV Diagnosis: Essential (primary) hypertension[ICD10: I10] Diagnosis: Type 2 diabetes mellitus without complications[ICD10: E11.9] [facility] CPT-4: 44772 08/08/2018 48807 EST. PATIENT, LEVEL III Diagnosis: Type 2 diabetes mellitus with hyperglycemia[ICD10: E11.65] [facility] CPT-4: 78027 07/17/2018 63884 EST. PATIENT, LEVEL III Diagnosis: Type 2 diabetes mellitus with hyperglycemia[ICD10: E11.65] Diagnosis: Weakness[ICD10: R53.1] Diagnosis: Unsteadiness on feet[ICD10: R26.81] Elizabeth Sow MD, [facility] CPT-4: 54070 06/26/2018 ([id number]) 61753 EST. PATIENT, LEVEL IV Diagnosis: Type 2 diabetes mellitus with hyperglycemia[ICD10: E11.65] Diagnosis: Essential (primary) hypertension[ICD10: I10] Diagnosis: Muscle weakness (generalized)[ICD10: M62.81] Diagnosis: Localized edema[ICD10: R60.0] Kate Sow MD, [facility] CPT- 4: 31936 06/21/2018 ([id number]) 64150 EST. 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 PATIENT, LEVEL III Diagnosis: Low back pain[ICD10: M54.5] Elizabeth Sow MD, [facility] CPT-4 : 87647 04/27/2018 ([id number]) 77790 EST. PATIENT, LEVEL IV Diagnosis: Diplopia[ICD10: H53.2] Diagnosis: Rash and other nonspecific skin eruption[ICD10: R21] Diagnosis: Type 2 diabetes mellitus with hyperglycemia[ICD10: E11.65] Laney Sow MD, [facility] CPT-4: 15630 04/20/2018 ([id number]) 84103 EST. PATIENT, LEVEL III Diagnosis: Low back pain[ICD10: M54.5] Elizabeth Sow MD, [facility] CPT-4 : 53592 04/12/2018 ([id number]) 10784 EST. PATIENT, LEVEL III Diagnosis: Essential (primary) hypertension[ICD10: I10] Diagnosis: Type 2 diabetes mellitus with hyperglycemia[ICD10: E11.65] Kate Sow MD , [facility] CPT-4: 20927 04/10/2018 ([id number]) 61390 EST. PATIENT, LEVEL III Diagnosis: Lumbago with sciatica, left side[ICD10: M54.42] Diagnosis: Essential (primary) hypertension[ICD10: I10] Laney Sow MD, [facility] CPT-4: 76233 04/03/2018 ([id number]) 93953 EST. PATIENT, LEVEL IV Diagnosis: Type 2 diabetes mellitus with hyperglycemia[ICD10: E11.65] Diagnosis: Essential (primary) hypertension[ICD10: I10] Kate Sow MD, [facility] CPT-4: 09508 03/13/2018 ([id number]) 71246 EST. PATIENT, LEVEL IV Diagnosis: Essential (primary) hypertension[ICD10: I10] Diagnosis: Type 2 diabetes mellitus with hyperglycemia[ICD10: E11.65] Kate Sow MD , [facility] CPT-4: 07236 02/01/2018 ([id number]) 08755 EST. PATIENT, LEVEL IV Diagnosis: Type 2 diabetes mellitus with hyperglycemia[ICD10: E11.65] Diagnosis: Essential (primary) hypertension[ICD10: I10] Kate Sow MD, [facility] CPT-4: 72823 01/18/2018 ([id number]) Miscellaneous no charge Diagnosis: Type 2 diabetes mellitus with hyperglycemia[ICD10: E11.65] Elizabeth Sow MD, [facility] CPT-4: 56432 12/22/2017 ([id number]) 88538 EST. PATIENT, LEVEL IV Diagnosis: Type 2 diabetes mellitus with hyperglycemia[ICD10: E11.65] Diagnosis: Essential (primary) hypertension[ICD10: I10] Diagnosis: Muscle weakness (generalized)[ICD10: M62.81] Kate Sow MD, [facility] CPT-4: 27020 12/21/2017 87440 EST. PATIENT, LEVEL IV Diagnosis: Type 2 diabetes mellitus without complications[ICD10: E11.9] Diagnosis: Mixed hyperlipidemia[ICD10: E78.2] Diagnosis: Essential (primary) hypertension[ICD10: I10] Elizabeth Sow MD, [facility] CPT-4: 40831 10/10/2017 58449 EST. PATIENT, LEVEL III Diagnosis: Weakness[ICD10: R53.1] Diagnosis: Essential (primary) hypertension[ICD10: I10] Elizabeth Sow MD, [facility] CPT-4: 69925 09/07/2017 70657 EST. PATIENT, LEVEL III Diagnosis: Encounter for follow-up examination after completed treatment for conditions other than malignant neoplasm[ICD10: Z09] Diagnosis: Weakness[ICD10: R53.1] Diagnosis: Essential (primary) hypertension[ICD10: I10] Diagnosis: Dyspnea, unspecified[ICD10: R06.00] Diagnosis: Unsteadiness on feet[ICD10: R26.81] Elizabeth Sow MD [facility] CPT-4: 90120 08/30/2017 ([id number]) 38674 EST. PATIENT, LEVEL IV Diagnosis: Type 2 diabetes mellitus without complications[ICD10: E11.9] Diagnosis: Essential (primary) hypertension[ICD10: I10] Kate Sow MD [facility] CPT-4: 48684 08/15/2017 ([id number]) 73161 EST. PATIENT, LEVEL IV Diagnosis: Type 2 diabetes mellitus without complications[ICD10: E11.9] Diagnosis: Essential (primary) hypertension[ICD10: I10] Diagnosis: Unsteadiness on feet[ICD10: R26.81] Kate Sow MD, [facility] CPT-4: 30546 06/15/2017 ([id number]) Miscellaneous no charge Diagnosis: Essential (primary) hypertension[ICD10: I10] Laney Sow MD, [facility] CPT-4: 08817 05/29/2017 ([id number]) 84445 EST. PATIENT, LEVEL IV Diagnosis: Type 2 diabetes mellitus without complications[ICD10: E11.9] Diagnosis: Essential (primary) hypertension[ICD10: I10] Diagnosis: Mixed hyperlipidemia[ICD10: E78.2] Kate Sow MD, [facility] CPT-4: 33261 05/11/2017 ([id number]) 78135 EST. PATIENT, LEVEL IV Diagnosis: Type 2 diabetes mellitus without complications[ICD10: E11.9] Diagnosis: Essential (primary) hypertension[ICD10: I10] Kate Sow MD [facility] CPT-4: 26665 01/05/2017 ([id number]) 05276 EST. PATIENT, LEVEL III Diagnosis: Essential (primary) hypertension[ICD10: I10] Kate Sow MD [facility] CPT-4: 87855 09/20/2016 ([id number]) 97259 EST. PATIENT, LEVEL III Diagnosis: Essential (primary) hypertension[ICD10: I10] Laney Sow MD, [facility] CPT-4: 94873 09/01/2016 ([id number]) Miscellaneous no charge Diagnosis: Impacted cerumen, right ear[ICD10: H61.21] [facility] CPT-4: 25304 06/08/2016 ([id number]) 26452 EST. PATIENT, LEVEL IV Diagnosis: Type 2 diabetes mellitus without complications[ICD10: E11.9] Diagnosis: Essential (primary) hypertension[ICD10: I10] Diagnosis: Encounter for immunization[ICD10: Z23] Kate Sow MD, [facility] CPT-4: 94135 06/02/2016 53185 EST. PATIENT, LEVEL III Diagnosis: Essential (primary) hypertension[ICD10: I10] Diagnosis: Other specified cardiac arrhythmias[ICD10: I49.8] Elizabeth Sow MD, [facility] CPT-4: 83222 03/25/2016 ([id number]) 23816 EST. PATIENT, LEVEL IV Diagnosis: Type 2 diabetes mellitus without complications[ICD10: E11.9] Diagnosis: Essential (primary) hypertension[ICD10: I10] Kate Sow MD, [facility] CPT-4: 40306 01/26/2016 ([id number]) 42869 EST. PATIENT, LEVEL IV Diagnosis: Essential (primary) hypertension[ICD10: I10] Diagnosis: Type 2 diabetes mellitus without complications[ICD10: E11.9] Kate Sow MD, [facility] CPT-4: 18922 10/29/2015 ([id number]) 50690 EST. PATIENT, LEVEL IV Diagnosis: Essential (primary) hypertension[ICD10: I10] Diagnosis: Dyspnea, unspecified[ICD10: R06.00] [facility] CPT-4: 85186 07/21/2015 ([id number]) 85542 EST. PATIENT, LEVEL III Diagnosis: Edema, unspecified[ICD10: R60.9] [facility] CPT-4: 06688 07/08/2015 ([id number]) OFFICE VISIT, NEW - LEVEL 4 Diagnosis: ESSENTIAL HYPERTENSION[ICD9: 401.9] Diagnosis: DIABETES TYPE II[ICD9: 250.00] [facility] CPT- 4: 65273 05/04/2015 Plan of Care Planned Activity Notes [...] or concerns. 08/17/2018 Appointment: Elizabeth Milner WPtel: [address] [place], [place] [phone] (15 min) Moderate 08/17/2018 Patient Education: Patient [...] call for acute concerns. 08/08/2018 [phone] [facility] 30 min appointments only in this slot 08/08/2018 Patient Education: Patient Medication Summary Completed 08/08/2018 Patient Education: Diabetes Completed 08/08/2018 Appointment: Kate Sow WPtel: [phone] [facility] (15 min) Moderate 08/07/2018 Visit Plan: Diabetes [...] glucose control. 07/17/2018 Appointment: [facility] [phone] [facility] (15 min) Moderate 07/17/2018 Patient Education: Patient [...] gait instability. 06/26/2018 Appointment: Elizabeth Milner [facility]el[facility] [phone] [facility] (15 min) Moderate 06/26/2018 Patient Education: Patient Medication Summary Completed 06/26/2018 Patient Education: Diabetes Completed 06/26/2018 Visit Plan: Diabetes improved control while at the correction - discussed with patient and her hirale [...] Assisted Living. 06/21/2018 App[facility]ment[phone] [facility] (15 min) Moderate 06/21/2018 Patient Education: Patient Medication Summary Completed 06/21/2018 Patient Education: Diabetes Completed 06/21/2018 [facility]ment: [facility] [phone] [facility] (15 min) Moderate 05/09/2018 Visit Plan: Uncontrolled [...] sleep better. 05/02/2018 App[facility]ment[phone] [facility] (15 min) Moderate 05/02/2018 Patient Education: Patient Medication Summary Completed 05/02/2018 Care Plan: X-RAY EXAM L-S SPINE 2/ VWS LOINC : 40742-6 Pending 05/02/2018 Visit Plan: Low back pain- the patient was instructed in appropriate posture - The pt is to use prn antiinflammatories to manage acute pain. The patient is to call the office if the pain is worsening or does not improve. 04/27/2018 Appointment: Elizabeth Milner WPtel[facility] [phone] [facility] (15 min) Moderate 04/27/2018 Patient Education: Patient Medication Summary Completed 04/27/2018 Visit Plan: Double vision-suspect due to elevated blood sugars -recommend patient bring in log of blood sugars to next appt -notify deli cutter slicer of elevated readings and watch diet closely -also recommend f/u with eye doctor Rash-suspect shingles-rx for acyclovir provided and instructed on use 04/20/2018 Appointment: Lane[facility]millan [facility]el[phone] [place] [place] (15 min) Moderate 04/20/2018 Patient Education: [...] Appointment: Elizabeth Milner WPtel: [phone] [facility] (15 min) Moderate 04/12/2018 Patient Education: Patient [...] controlled. 04/10/2018 [facility]ment[phone] (15 min) Moderate 04/10/2018 Patient Education: [...] concerns. 04/03/2018 Appointment: Laney Mcmillan WPtel: [phone] [place] [place] (15 min) Moderate 04/03/2018 Patient Education: [...] home. 03/13/2018 Appointment: [phone] (15 min) Moderate 03/13/2018 Patient Education: Patient [...] diet. 02/01/2018 Appointment: [facility]el[phone] (15 min) Moderate 02/01/2018 Patient Education: [...] daily. 01/18/2018 Appointment: [facility]el[phone] (15 min) Moderate 01/18/2018 Patient Education: Patient Medication Summary Completed 01/18/2018 Appointment: [facility]el[phone] (15 min) Moderate 01/11/2018 Appointment: [facility]ow [facility]Ptel: [phone] [facility] (15 min) Moderate 12/25/2017 Visit Plan: [...] home. Generalized weakness - physical therapy at [facility] out 12/21/2017 Appointment: [facility]ow [facility]Ptel: [phone] [facility] [place] (15 min) Moderate 12/21/2017 Patient Education: Patient Medication Summary Completed 12/21/2017 Appointment: [facility]ow [facility]Ptel: [phone] [facility] [place] (15 min) Moderate 12/13/2017 Visit [...] glucose control. 10/10/2017 Appointment: Elizabeth Milner WPtel: [facility] [place] (15 min) Moderate 10/10/2017 Patient Education: Patient [...] at home. 09/07/2017 Appointment: Elizabeth Milner WPtel: [facility] [place] (30 min) Complex 09/07/2017 Patient Education: Patient Medication Summary Completed 09/07/2017 Appointment: [facility]Ptel[phone] (15 min) Moderate 09/05/2017 Visit Plan: Hospital follow up - Dr. Sow in to see pt - pt was in the hospital with uncontrolled hypertension and a. fib - controlled at this time - persistent weakness requiring ongoing PT and assistance with some ADLs and medication management - will admit pt to group home facility for ongoing rehabilitation. 08/30/2017 Appointment: Fartun Milnerie WPtel: [phone] [facility] (30 min) Complex 08/30/2017 Patient Education: Patient Medication Summary Completed 08/30/2017 Appointment: Elizabeth Milner WPtel: [phone] [facility] (15 min) Moderate 08/29/2017 Visit [...] home. 08/15/2017 Appointment: Kate Sow WPtel: [phone] [facility] (15 min) Moderate 08/15/2017 Patient Education: Patient Medication Summary Completed 08/15/2017 Care Plan: [id number] Cancelled 08/15/2017 Referral: Karlee physical therapy WPtel: [phone] [facility] Patient's informed. Completed 06/26/2017 Visit [...] glucose control. Gait Instability - referral to [facility] physical therapy for gait instability. Hypertension - well controlled - continue with current medications , continue with no added salt diet. Pt has been encouraged to exercise daily. The pt has been advised to call the office if there are any acute concerns about change in blood pressure readings at home. 06/15/2017 Appointment: Kate Sow [facility]Ptel: [phone] [facility] [place] (15 min) Moderate 06/15/2017 Patient Education: Patient Medication Summary Completed 06/15/2017 Care Plan: Referral Order SNOMED-CT : [id number] Pending 06/15/2017 Appointment: Nurse Visit 05/29/2017 Patient [...] and come in here or [place] [facility] [place] [facility] to get this set of [...] Statin 05/11/2017 Appointment: [facility]ow [facility]Ptel: [phone] (15 min) Moderate 05/11/2017 Patient Education: [...] daily. 01/05/2017 Appointment: [facility]ow [facility]Ptel: [phone] (15 min) Moderate 01/05/2017 Patient Education: [...] home. 09/20/2016 Appointment: [facility]ow [facility]Ptel: [phone] (30 min) Complex 09/20/2016 Patient Education: [...] acute concerns. 09/01/2016 Appointment: Laney Mcmillan WPtel: [phone] [phone] (30 min) Complex 09/01/2016 Patient Education: Patient Medication Summary Completed 09/01/2016 Appointment: Kate Sow WPtel: [phone] [facility] (15 min) Moderate 08/31/2016 Appointment: Nurse Visit [...] less controlled. 06/02/2016 Appointment: Kate Sow WPtel: [phone] [facility] [place] (15 min) Moderate 06/02/2016 Patient Education: Patient Medication Summary Completed 06/02/2016 Patient Education: Hypertension Completed 06/02/2016 Visit Plan: Bradycardia - reports pt has brought in indicates that the pt has been having a pulse in the 40s-50s. Will adjust medications, pt is to notify clinic if her symptoms do not improve, or with any concerns. 03/25/2016 Appointment: Laney Mcmillan WPtel: [phone] [phone] [place] (10 min) Simple 03/25/2016 Patient Education: [...] DM - managed by Dr. Johnson from [place] 01/26/2016 Patient Education: Patient Medication Summary Completed 01/26/2016 Patient Education: Hypertension Completed 01/26/2016 Appointment: Laney Mcmillan WPtel: [phone] [phone] (30 min) Complex 12/31/2015 Visit Plan: Hypertension [...] less controlled. 10/29/2015 Appointment: Kate [facility]ow [facility]Ptel: [phone] (15 min) Moderate 10/29/2015 Patient Education: Patient Medication Summary Completed 10/29/2015 Patient Education: Hypertension Completed 10/29/2015 Appointment: Kate Sow WPtel: [phone] [facility] (15 min) Moderate 09/14/2015 Visit [...] today, as soon as you get to [place], monday morning, then start taking the lasix [...] handout Begin using muscle rub on back ([place] balm) 05/04/2015 Appointment: Kate Sow [facility]Ptel: [phone] [place] (S) New Patient 05/04/2015 Patient Education: Patient Medication Summary Completed 05/04/2015 Patient Education: Hypertension Completed 05/04/2015 Referral: [phone] [facility] [place] Referral Appointment Requested Instructions Comment Stop the Atorvastatin - I think it [...] improve or with any questions or concerns. . Hypertension - well controlled - [...] DM - managed by Dr. Johnson from [place] Increase losartan to 100mg daily come in [...] medication management - will admit pt to group home facility for ongoing rehabilitation. . Weakness - improved - pt is [...] weakness - physical therapy at [facility] . Hypertension - well controlled - continue [...] diet. see if Dr. Johnson has the touIperiao samples for you - if not , go to the pharmacy to potato picker the toujeo script. if the toujeo [...] glucose control. Gait Instability - referral to [facility] physical therapy for gait instability. Hypertension - [...] response to medications. Continue with Statin . Diabetes Mellitus - Uncontrolled - per [...] treat for weakness and gait instability. . 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 Increase the toujeo to 20 units . [...] week on Monday, Monday , take potassium , , monday, then take the potssium on [...] of blood sugars to next appt -notify deli cutter slicer of elevated readings and watch diet closely -also recommend f/u with eye doctor Rash-suspect shingles-rx for acyclovir provided and instructed on use . Diabetes Mellitus - Uncontrolled - per [...] to allow for greater blood glucose control. take the humalog at the beginning of [...] . Diabetes improved control while at the correction - discussed with patient and her daughte [...] handout Begin using muscle rub on back ([place] balm) Begin taking Lasix again No blood [...] handout Begin using muscle rub on back ([place] balm) . Diabetes Mellitus - improved control- [...]
--- OUTSIDE RECORDS SUMMARY | 2018-08-24 17:55 | XMS REPORT | CCD ---
Author Author [facility] Organization [facility] Address [address] [place] [address] Phone Care Team Providers Care Automobile Salesman Name Role Phone PP Unavailable CCM Unavailable Summary Purpose Interface Exchange Insurance Providers Payer name Policy type / Coverage type Covered republican ID Effective Begin Date Effective End Date WPS Medicare Part B Medicare Part B [id number] Unknown Unknown [employer] Medicare Part B [id number] Unknown Unknown Family history Mother Diagnosis Age [...] Unknown 3 05/04/[address]: 645772969 Never smoker 05/04/2015 Alcohol history Unknown occasionally [...] Fill Instructions Levaquin 250 mg tablet RxNorm: 515698 2 tabs on 1st day then 1 tab day 2-7 Tablet( s) PO daily 08/20/2018 08/26/2018 Active dc keflex Levaquin 250 mg tablet RxNorm: 962332 2 tabs on 1st day then 1 tab day 2-7 Tablet( s) PO daily 08/20/2018 08/19/2018 Inactive dc keflex Keflex 500 mg capsule RxNorm: 882226 1 Capsule(s) PO TID 201708/19/2018 Inactive Estevan SoloStar U-300 Insulin 300 unit/mL (1.5 mL) subcutaneous pen RxNorm: 9495858 25 Unit(s) SQ QHS MANAGED BY DR. JOHNSON 201711/28/2018 Active Norvasc 10 mg tablet RxNorm: 610019 1 Tablet(s) PO daily 201701/25/2019 Active update RX Eliquis 2.5 mg tablet RxNorm: 9013551 Tablet(s) PO TAKE ONE TABLET BY MOUTH TWICE DAILY 06/21/2018 06/15/2019 Active cyclobenzaprine 5 mg tablet RxNorm: 428516 1/2 Tablet(s) PO BID as needed muscle spasms/back pain 05/02/2018 05/31/2018 Inactive Voltaren 1 % topical gel RxNorm: 034754 1 Application TOP QID 04/27/2018 No Stop Date Active tramadol 50 mg tablet RxNorm: 453588 1 Tablet(s) PO TID as needed for pain 04/27/2018 05/01/2018 Inactive acyclovir 400 mg tablet RxNorm: 214873 2 Tablet(s) PO QID 04/2006/20/2018 Inactive mupirocin 2 % topical ointment RxNorm: 594503 1 Application TOP BID 04/20/2018 04/29/2018 Inactive right cheek/nose gentamicin 0.3 % eye drops RxNorm: 702613 2 Drop(s) ophthalmic (eye) left eye Q8 04/16/2018 No Stop Date Active prednisone 20 mg tablet RxNorm: 209439 2 Tablet(s) PO daily 04/12/2018 Inactive prednisone 20 mg tablet RxNorm: 250063 2 Tablet(s) PO daily 04/17/2018 Inactive Kenalog 40 mg/mL suspension for injection RxNorm: 7644812 1 Milliliter(s) Inj 04/12/2018 04/12/2018 Inactive losartan 100 mg tablet RxNorm: 976930 1 Tablet(s) PO QAM 201712/28/2018 Active update RX -dose should be 100mg Norvasc 5 mg tablet RxNorm: 127353 1 Tablet(s) PO daily 201707/29/2018 Inactive update RX losartan 50 mg tablet RxNorm: 118356 TAKE ONE TABLET BY MOUTH ONCE DAILY IN THE MORNING 03/26/2018 04/02/2018 Inactive Humalog U-100 Insulin 100 unit/mL subcutaneous solution RxNorm: 242125 15 Unit(s) SQ AC MANAGED BY DR. JOHNSON 03/13/2018 No Stop Date Active 201- 200 17 units, greater than 300 21 units Estevan Marte U-300 Insulin 300 unit/mL (1.5 mL) subcutaneous pen RxNorm: 9994365 20 Unit(s) SQ QHS MANAGED BY DR. JOHNSON 201707/10/2018 Inactive losartan 100 mg tablet RxNorm: 861263 1 Tablet(s) PO QAM 201704/02/2018 Inactive pantoprazole 40 mg tablet,delayed release RxNorm: 247520 1 Tablet(s) PO daily 01/11/2018 07/19/2018 Inactive carvedilol 12.5 mg tablet RxNorm: 354045 1 Tablet(s) PO BID 07/19/2018 Inactive Toujeo SoloStar U-300 Insulin 300 unit/mL (1.5 mL) subcutaneous pen RxNorm: 4696919 15 Unit(s) SQ QHS MANAGED BY DR. JOHNSON 201703/12/2018 Inactive Multaq 400 mg tablet RxNorm: 446077 1 Tablet(s) PO BID 201712/14/2018 Active potassium chloride ER 10 mEq tablet,extended release RxNorm: 485929 1 Tablet(s) PO daily while on the Lasix 10/18/201701/2018 Inactive losartan 50 mg tablet RxNorm: 115195 1 Tablet(s) PO QAM 201601/17/2018 Inactive Lasix 20 mg tablet RxNorm: 303818 1 Tablet(s) PO daily 201610/03/2017 Inactive potassium chloride ER 10 mEq tablet,extended release RxNorm: 879340 1 Tablet(s) PO daily while on the Lasix 08/30/2017 Inactive Toujeo SoloStar 300 unit/mL (1.5 mL) subcutaneous insulin pen RxNorm: 2539596 35 Unit(s) SQ QHS MANAGED BY DR. JOHNSON 06/15/2017 10/12/2017 Inactive Eliquis 5 mg tablet RxNorm: 0919258 TAKE ONE TABLET BY MOUTH TWICE DAILY 03/01/2017 02/23/2018 Inactive Januvia 100 mg tablet RxNorm: 491834 1/2 Tablet(s) PO daily 07/19/2018 Inactive losartan 50 mg tablet RxNorm: 425573 1 Tablet(s) PO BID 201509/13/2017 Inactive amlodipine 10 mg tablet RxNorm: 104307 1 Tablet(s) PO daily 06/14/2017 Inactive generic for NORVASC losartan 50 mg tablet RxNorm: 848441 1 Tablet(s) PO daily 201508/31/2016 Inactive Toujeo SoloStar 300 unit/mL (1.5 mL) subcutaneous insulin pen RxNorm: 8690283 40 Unit(s) SQ QHS MANAGED BY DR. JOHNSON 07/01/2016 06/14/2017 Inactive Toujeo SoloStar 300 unit/mL (1.5 mL) subcutaneous insulin pen RxNorm: 9076270 35 Unit(s) SQ QHS MANAGED BY DR. JOHNSON 06/02/2016 06/30/2016 Inactive Humalog 100 unit/mL subcutaneous solution RxNorm: 823369 15 Unit(s) SQ AC MANAGED BY DR. JOHNSON 06/02/2016 03/12/2018 Inactive carvedilol 3.125 mg tablet RxNorm: 530297 1 Tablet(s) PO BID 04/23/2016 Inactive simvastatin 40 mg tablet RxNorm: 081686 1 Tablet(s) PO QHS 07/19/2018 Inactive Humalog 100 unit/mL subcutaneous solution RxNorm: 371725 13 Unit(s) SQ AC MANAGED BY DR. JOHNSON 01/26/2016 06/01/2016 Inactive Eliquis 5 mg tablet RxNorm: 4258594 1 Tablet(s) PO BID 201501/13/2017 Inactive carvedilol 6.25 mg tablet RxNorm: 112024 1 Tablet(s) PO BID 2016 Inactive Humalog 100 unit/mL subcutaneous solution RxNorm: 697913 Unit(s) SQ UD as directed by office 08/07/2015 01/25/2016 Inactive Klor-Con 10 mEq tablet,extended release RxNorm: 732695 1 Tablet(s) PO daily as needed 06/26/2015 10/23/2015 Inactive Lasix 20 mg tablet RxNorm: 480214 1 Tablet(s) PO daily as needed 06/26/2015 10/23/2015 Inactive fluticasone 50 mcg/actuation nasal spray,suspension RxNorm: 683490 2 [place] NASAL daily No Start Date Active metoprolol succinate ER 50 mg tablet,extended release 24 hr RxNorm: 356260 1 Tablet(s) PO daily No Start Date Active aspirin 81 mg capsule,delayed release RxNorm: 486922 1 Capsule(s) PO daily No Start Date Active Novolog U-100 Insulin aspart 100 unit/mL subcutaneous solution RxNorm: 465107 SSI 80-150 10u 151-200 15u 201-300 17u over 300 21u Unit(s) SQ AC & HS as needed No Start Date Active cetirizine 10 mg tablet RxNorm: 8296760 1 Tablet(s) PO daily No Start Date Active atorvastatin 40 mg tablet RxNorm: 246199 1 Tablet(s) PO daily No Start Date Active Culturelle Probiotics 10 billion cell-200 mg capsule RxNorm: 1 Capsule(s) PO TID No Start Date Active losartan 25 mg tablet RxNorm: 796224 1 Tablet(s) PO daily No Start Date 08/31/2016 Inactive losartan 100 mg tablet RxNorm: 261689 1 Tablet(s) PO daily No Start Date 06/30/2016 Inactive gentamicin 0.3 % eye drops RxNorm: 100733 2 Drop(s) ophthalmic (eye) left eye Q8 No Start Date 04/15/2018 Inactive Multaq 400 mg tablet RxNorm: 403609 1 Tablet(s) PO BID No Start Date 12/19/2017 Inactive Klor-Con 10 mEq tablet,extended release RxNorm: 690812 1 Tablet(s) PO daily as needed No Start Date 06/25/2015 Inactive simvastatin 40 mg tablet RxNorm: 994522 1 Tablet(s) PO daily No Start Date 02/04/2016 Inactive carvedilol 6.25 mg tablet RxNorm: 111681 1 Tablet(s) PO BID No Start Date 11/30/2015 Inactive Eliquis 5 mg tablet RxNorm: 2077918 1 Tablet(s) PO BID No Start Date 01/19/2016 Inactive Toujeo SoloStar 300 unit/mL (1.5 mL) subcutaneous insulin pen RxNorm: 5853559 33 Unit(s) SQ QHS MANAGED BY DR. JOHNSON No Start Date 06/01/2016 Inactive Lasix 20 mg tablet RxNorm: 877307 1 Tablet(s) PO daily as needed No Start Date 06/25/2015 Inactive Humalog 100 unit/mL subcutaneous solution RxNorm: 479617 10 Unit(s) SQ TID No Start Date 08/06/2015 Inactive amlodipine 5 mg tablet RxNorm: 432692 1 Tablet(s) PO daily No Start Date 08/31/2016 Inactive Norvasc 2.5 mg tablet RxNorm: 776194 1 Tablet(s) PO daily No Start Date 04/02/2018 Inactive Medication Administered Medication Codes Instructions Start Date Status Kenalog 40 mg/mL suspension for injection RxNorm: 7321374 1Milliliter 04/12/2018 No longer Active Immunizations Vaccine [...] 31.2 pg 05/25/2017 Cbc With Differential Ord2 [place]% 8.9 % 05/25/2017 Cbc With Differential Ord2 [...] 3.78 K/ul 05/25/2017 Cbc With Differential Ord2 [place] ABS# 0.7 K/ul 05/25/2017 Cbc With Differential Ord2 Eos ABS# 0.8 K/ul 05/25/2017 Cbc With Differential Ord2 Baso ABS# 0.3 K/ul 05/25/2017 Manual Differential Ord52 D-Neutr 50 % 05/25/2017 Manual Differential Ord52 D-Lymph 38 % 05/25/2017 Manual Differential Ord52 D-Eos 10 % 05/25/2017 Manual Differential Ord52 D-1 2 NRBC 05/25/2017 Comp Metabolic Zqz298 NA 140 mEq/L 05/25/2017 Comp Metabolic Yxg461 K 4.0 mEq/L 05/25/2017 Comp Metabolic Zbd724 CL 107 mEq/L 05/25/2017 Comp Metabolic Hyf891 CO2 22.0 mEq/L 05/25/2017 Comp Metabolic Jwx574 ANION GAP 15 05/25/2017 Comp Metabolic Adz562 GLUCOSE 97 mg/dL 05/25/2017 Comp Metabolic Jyw229 Creat 0.9 mg/dL 05/25/2017 Comp Metabolic Tfd721 eGFR 61 ml/min/1.73m2 05/25/2017 Comp Metabolic Vee693 BUN 16 mg/dL 05/25/2017 Comp Metabolic Egf545 B/C Ratio 17.4 Ratio 05/25/2017 Comp Metabolic Xvr384 CALCIUM 9.1 mg/dL 05/25/2017 Comp Metabolic Xav322 ALK PHOS 109 U/L 05/25/2017 Comp Metabolic Ezc878 AST(SGOT) 19 U/L 05/25/2017 Comp Metabolic Fas237 ALT(SGPT) 17 U/L 05/25/2017 Comp Metabolic Lvc421 BILI T 0.4 mg/dL 05/25/2017 Comp Metabolic Rlt482 ALBUMIN 3.3 g/dL 05/25/2017 Comp Metabolic Jaj764 TPRO 6.0 g/dL 05/25/2017 Comp Metabolic Pvn785 GLOB 2.7 g/dL 05/25/2017 Comp Metabolic Ajv662 A/G Ratio 1.2 Ratio 05/25/2017 Comp Metabolic Jtq319 Osmo 281 mOsmo 05/25/2017 Lipid Ord30 CHOL 204 mg/dL 05/25/2017 Lipid Ord30 HDL 49.0 mg/dl 05/25/2017 Lipid Ord30 TRIG 117 mg/dL 05/25/2017 Lipid Ord30 LDL 132 mg/dL 05/25/2017 Lipid Ord30 C/HDL 4.2 Ratio 05/25/2017 %Hba1C Egx593 % HbA1c 56032-6 10.5 % 05/25/2017 %Hba1C Mhn687 Gluc Ave 255 mg/dL 05/25/2017 Microalbumin Cwo738 MicroAlb 95.0 mg/dL 05/25/2017 Review of Systems [...] Procedures Procedure Codes Date DRAIN/INJECT JOINT/BURSA CPT-4: 70523 04/12/2018 TRIAMCINOLONE ACET INJ NOS CPT-4: J3301 04/12/2018 PPPS, SUBSEQ VISIT CPT -4: G0439 02/22/2018 ADMIN INFLUENZA VIRUS VAC CPT-4: G0008 06/02/2016 FLU VACC PRSV FREE INC ANTIG CPT-4: 02886 06/02/2016 Vital Signs Date Vital 08/17/2018 Blood Pressure 1: 140/66 Code : 8480-6 BMI: 25.3 Code : 07798-1 Heart Rate 1 : 66 bpm Height: 4'8" SpO2: 97% Weight: 113 lbs 08/08/2018 Blood Pressure 1: 174/70 Code : 8480-6 BMI: 25.3 Code : 91625-3 Heart Rate 1 : 60 bpm Height: 4'8" SpO2: 97% Weight: 113 lbs 07/17/2018 Blood Pressure 1: 148/62 Code : 8480-6 BMI: 24.9 Code : 82963-3 Heart Rate 1 : 65 bpm Height: 4'8" SpO2: 97% Weight: 111 lbs 06/26/2018 Blood Pressure 1: 118/72 Code : 8480-6 BMI: 25.1 Code : 88104-8 Heart Rate 1 : 58 bpm Height: 4'8" SpO2: 97% Weight: 112 lbs 06/21/2018 Blood Pressure 1: 120/72 Code : 8480-6 BMI: 25.1 Code : 53819-0 Heart Rate 1 : 56 bpm Height: 4'8" SpO2: 96% Weight: 112 lbs 05/02/2018 Blood Pressure 1: 178/76 Code : 8480-6 BMI: 24.7 Code : 27727-5 Heart Rate 1 : 72 bpm Height: 4'8" SpO2: 98% Weight: 110 lbs 04/27/2018 Blood Pressure 1: 164/78 Code : 8480-6 BMI: 24.7 Code : 10126-3 Heart Rate 1 : 69 bpm Height: 4'8" SpO2: 97% Weight: 110 lbs 04/20/2018 Blood Pressure 1: 140/80 Code : 8480-6 BMI: 24.7 Code : 48126-5 Heart Rate 1 : 83 bpm Height: 4'8" SpO2: 97% Weight: 110 lbs 04/12/2018 Blood Pressure 1: 146/78 Code : 8480-6 Heart Rate 1: 68 bpm Height: SpO2: 98% Weight: 04/10/2018 Blood Pressure 1: 146/60 Code : 8480-6 BMI: 24.7 Code : 46248-4 Heart Rate 1 : 60 bpm Height: 4'8" SpO2: 95% Weight: 110 lbs 04/03/2018 Blood Pressure 1: 204/80 Code : 8480-6 BMI: 24.9 Code : 40733-4 Heart Rate 1 : 62 bpm Height: 4'8" SpO2: 98% Weight: 111 lbs 03/13/2018 Blood Pressure 1: 140/68 Code : 8480-6 BMI: 25.6 Code : 74631-9 Heart Rate 1 : 68 bpm Height: 4'8" SpO2: 95% Weight: 114 lbs 02/22/2018 Blood Pressure 1: 166/88 Code : 8480-6 BMI: 24.7 Code : 24700-4 Heart Rate 1 : 72 bpm Height: 4'8" SpO2: 95% Weight: 110 lbs 02/01/2018 Blood Pressure 1: 162/70 Code : 8480-6 BMI: 23.2 Code : 31072-2 Heart Rate 1 : 64 bpm Height: 4'11" SpO2: 95% Weight: 115 lbs 01/18/2018 Blood Pressure 1: 192/86 Code : 8480-6 BMI: 22.6 Code : 77479-7 Heart Rate 1 : 68 bpm Height: 4'11" SpO2: 94% Weight: 112 lbs 12/21/2017 Blood Pressure 1: 110/52 Code : 8480-6 BMI: 23.0 Code : 44897-9 Heart Rate 1 : 58 bpm Height: 4'11" SpO2: 94% Weight: 114 lbs 10/10/2017 Blood Pressure 1: 168/78 Code : 8480-6 BMI: 23.0 Code : 80147-9 Heart Rate 1 : 54 bpm Height: 4'11" SpO2: 98% Weight: 114 lbs 09/07/2017 Blood Pressure 1: 142/72 Code : 8480-6 Heart Rate 1: 84 bpm Height: 4'11" SpO2: 97% Weight: 08/30/2017 Blood Pressure 1: 188/82 Code : 8480-6 BMI: 24.4 Code : 27720-4 Heart Rate 1 : 79 bpm Height: 4'11" SpO2: 88% Temperature: 38.5 (C) / 101.3 (F) Weight: 121 lbs 08/15/2017 Blood Pressure 1: 166/78 Code : 8480-6 BMI: 22.8 Code : 63253-2 Heart Rate 1 : 71 bpm Height: 4'11" SpO2: 96% Weight: 113 lbs 06/15/2017 Blood Pressure 1: 138/68 Code : 8480-6 BMI: 22.8 Code : 57914-3 Heart Rate 1 : 54 bpm Height: 4'11" SpO2: 98% Weight: 113 lbs 05/29/2017 Blood Pressure 1: 96/46 Code : 8480-6 Blood Pressure 2: 116/57 Code: 8480-6 Heart Rate 1: 54 bpm 05/11/2017 Blood Pressure 1: 144/60 Code : 8480-6 BMI: 23.8 Code : 83795-9 Heart Rate 1 : 68 bpm Height: 4'11" SpO2: 97% Weight: 118 lbs 01/05/2017 Blood Pressure 1: 134/72 Code : 8480-6 BMI: 24.8 Code : 10222-4 Heart Rate 1 : 64 bpm Height: 4'11" SpO2: 94% Weight: 123 lbs 09/20/2016 Blood Pressure 1: 148/66 Code : 8480-6 BMI: 25.4 Code : 39531-5 Heart Rate 1 : 68 bpm Height: 4'11" SpO2: 97% Weight: 126 lbs 09/01/2016 Blood Pressure 1: 162/80 Code : 8480-6 BMI: 26.1 Code : 00486-4 Heart Rate 1 : 75 bpm Height: 4'11" SpO2: 95% Weight: 129 lbs 06/02/2016 Blood Pressure 1: 144/82 Code : 8480-6 BMI: 25.4 Code : 30633-8 Heart Rate 1 : 68 bpm Height: 4'11" SpO2: 98% Weight: 126 lbs 03/25/2016 Blood Pressure 1: 140/58 Code : 8480-6 BMI: 25.9 Code : 65057-1 Heart Rate 1 : 58 bpm Height: 4'11" SpO2: 95% Weight: 128 lbs 01/26/2016 Blood Pressure 1: 138/68 Code : 8480-6 BMI: 26.3 Code : 15776-6 Heart Rate 1 : 66 bpm Height: 4'11" SpO2: 96% Weight: 130 lbs 10/29/2015 Blood Pressure 1: 180/78 Code : 8480-6 BMI: 25.7 Code : 68148-4 Heart Rate 1 : 74 bpm Height: 4'11" SpO2: 97% Weight: 127 lbs 07/21/2015 Blood Pressure 1: 136/70 Code : 8480-6 BMI: 25.9 Code : 75458-6 Heart Rate 1 : 63 bpm Height: 4'11" SpO2: 95% Weight: 128 lbs 07/08/2015 Blood Pressure 1: 140/70 Code : 8480-6 BMI: 26.5 Code : 32207-8 Heart Rate 1 : 59 bpm Height: 4'11" SpO2: 94% Weight: 131 lbs 5 oz 05/04/2015 Blood Pressure 1: 140/60 Code : 8480-6 BMI: 25.7 Code : 11517-4 Heart Rate 1 : 60 bpm Height: [...] Myalgia, other site[ICD10: M79.18] Elizabeth Sow MD, [facility] CPT-4: 33167 08/17/2018 ([id number]) 20078 EST. PATIENT, LEVEL IV Diagnosis: Essential (primary) hypertension[ICD10: I10] Diagnosis: Type 2 diabetes mellitus without complications[ICD10: E11.9] [facility] CPT-4: 14675 08/08/2018 32450 EST. PATIENT, LEVEL III Diagnosis: Type 2 diabetes mellitus with hyperglycemia[ICD10: E11.65] [facility] CPT-4: 52138 07/17/2018 23401 EST. PATIENT, LEVEL III Diagnosis: Type 2 diabetes mellitus with hyperglycemia[ICD10: E11.65] Diagnosis: Weakness[ICD10: R53.1] Diagnosis: Unsteadiness on feet[ICD10: R26.81] Elizabeth Sow MD, [facility] [place] CPT-4: 81817 06/26/2018 ([id number]) 97996 EST. PATIENT, LEVEL IV Diagnosis: Type 2 diabetes mellitus with hyperglycemia[ICD10: E11.65] Diagnosis: Essential (primary) hypertension[ICD10: I10] Diagnosis: Muscle weakness (generalized)[ICD10: M62.81] Diagnosis: Localized edema[ICD10: R60.0] Kate Sow MD, [facility] [place] CPT- 4: 02738 06/21/2018 ([id number]) 07289 EST. 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 PATIENT, LEVEL III Diagnosis: Low back pain[ICD10: M54.5] Elizabeth Sow MD, [facility] CPT-4 : 31056 04/27/2018 ([id number]) 15765 EST. PATIENT, LEVEL IV Diagnosis: Diplopia[ICD10: H53.2] Diagnosis: Rash and other nonspecific skin eruption[ICD10: R21] Diagnosis: Type 2 diabetes mellitus with hyperglycemia[ICD10: E11.65] Laney Sow MD, [facility] CPT-4: 88327 04/20/2018 ([id number]) 74291 EST. PATIENT, LEVEL III Diagnosis: Low back pain[ICD10: M54.5] Eilzabeth Sow MD, [facility] CPT-4 : 16912 04/12/2018 ([id number]) 04289 EST. PATIENT, LEVEL III Diagnosis: Essential (primary) hypertension[ICD10: I10] Diagnosis: Type 2 diabetes mellitus with hyperglycemia[ICD10: E11.65] Kate Sow MD , [facility] [place] CPT-4: 21787 04/10/2018 ([id number]) 49191 EST. PATIENT, LEVEL III Diagnosis: Lumbago with sciatica, left side[ICD10: M54.42] Diagnosis: Essential (primary) hypertension[ICD10: I10] Laney Sow MD, [facility] [place] CPT-4: 25045 04/03/2018 ([id number]) 15293 EST. PATIENT, LEVEL IV Diagnosis: Type 2 diabetes mellitus with hyperglycemia[ICD10: E11.65] Diagnosis: Essential (primary) hypertension[ICD10: I10] Kate Sow MD, [facility] [place] CPT-4: 02912 03/13/2018 ([id number]) 78448 EST. PATIENT, LEVEL IV Diagnosis: Essential (primary) hypertension[ICD10: I10] Diagnosis: Type 2 diabetes mellitus with hyperglycemia[ICD10: E11.65] Kate Sow MD , [facility] [place] CPT-4: 02411 02/01/2018 ([id number]) 46348 EST. PATIENT, LEVEL IV Diagnosis: Type 2 diabetes mellitus with hyperglycemia[ICD10: E11.65] Diagnosis: Essential (primary) hypertension[ICD10: I10] Kate Sow MD, [facility] [place] CPT-4: 18196 01/18/2018 ([id number]) Miscellaneous no charge Diagnosis: Type 2 diabetes mellitus with hyperglycemia[ICD10: E11.65] Elizabeth Sow MD, [facility] [place] CPT-4: 92122 12/22/2017 ([id number]) 71924 EST. PATIENT, LEVEL IV Diagnosis: Type 2 diabetes mellitus with hyperglycemia[ICD10: E11.65] Diagnosis: Essential (primary) hypertension[ICD10: I10] Diagnosis: Muscle weakness (generalized)[ICD10: M62.81] Kate Sow MD, [facility] [place] CPT-4: 95045 12/21/2017 49567 EST. PATIENT, LEVEL IV Diagnosis: Type 2 diabetes mellitus without complications[ICD10: E11.9] Diagnosis: Mixed hyperlipidemia[ICD10: E78.2] Diagnosis: Essential (primary) hypertension[ICD10: I10] Elizabeth Sow MD, [facility] [place] CPT-4: 58742 10/10/2017 48001 EST. PATIENT, LEVEL III Diagnosis: Weakness[ICD10: R53.1] Diagnosis: Essential (primary) hypertension[ICD10: I10] Elizabeth Sow MD, [facility] [place] CPT-4: 44895 09/07/2017 03950 EST. PATIENT, LEVEL III Diagnosis: Encounter for follow-up examination after completed treatment for conditions other than malignant neoplasm[ICD10: Z09] Diagnosis: Weakness[ICD10: R53.1] Diagnosis: Essential (primary) hypertension[ICD10: I10] Diagnosis: Dyspnea, unspecified[ICD10: R06.00] Diagnosis: Unsteadiness on feet[ICD10: R26.81] Elizabeth Sow MD [facility] [place] CPT-4: 36347 08/30/2017 ([id number]) 19362 EST. PATIENT, LEVEL IV Diagnosis: Type 2 diabetes mellitus without complications[ICD10: E11.9] Diagnosis: Essential (primary) hypertension[ICD10: I10] Kate Sow MD [facility] [place] CPT-4: 43627 08/15/2017 ([id number]) 40425 EST. PATIENT, LEVEL IV Diagnosis: Type 2 diabetes mellitus without complications[ICD10: E11.9] Diagnosis: Essential (primary) hypertension[ICD10: I10] Diagnosis: Unsteadiness on feet[ICD10: R26.81] Kate Sow MD, [facility] [place] CPT-4: 86351 06/15/2017 ([id number]) Miscellaneous no charge Diagnosis: Essential (primary) hypertension[ICD10: I10] Laney Sow MD, [facility] CPT-4: 15582 05/29/2017 ([id number]) 22020 EST. PATIENT, LEVEL IV Diagnosis: Type 2 diabetes mellitus without complications[ICD10: E11.9] Diagnosis: Essential (primary) hypertension[ICD10: I10] Diagnosis: Mixed hyperlipidemia[ICD10: E78.2] Kate Sow MD, [facility] [place] CPT-4: 94829 05/11/2017 ([id number]) 96271 EST. PATIENT, LEVEL IV Diagnosis: Type 2 diabetes mellitus without complications[ICD10: E11.9] Diagnosis: Essential (primary) hypertension[ICD10: I10] Kate Sow MD [facility] [place] CPT-4: 88526 01/05/2017 ([id number]) 75988 EST. PATIENT, LEVEL III Diagnosis: Essential (primary) hypertension[ICD10: I10] Kate Sow MD [facility] CPT-4: 80404 09/20/2016 ([id number]) 25919 EST. PATIENT, LEVEL III Diagnosis: Essential (primary) hypertension[ICD10: I10] Laney Sow MD, [facility] [place] CPT-4: 75276 09/01/2016 ([id number]) Miscellaneous no charge Diagnosis: Impacted cerumen, right ear[ICD10: H61.21] [facility] CPT-4: 57955 06/08/2016 ([id number]) 82534 EST. PATIENT, LEVEL IV Diagnosis: Type 2 diabetes mellitus without complications[ICD10: E11.9] Diagnosis: Essential (primary) hypertension[ICD10: I10] Diagnosis: Encounter for immunization[ICD10: Z23] Kate Sow MD, [facility] CPT-4: 72911 06/02/2016 16707 EST. PATIENT, LEVEL III Diagnosis: Essential (primary) hypertension[ICD10: I10] Diagnosis: Other specified cardiac arrhythmias[ICD10: I49.8] Elizabeth Sow MD, [facility] [place] CPT-4: 77805 03/25/2016 ([id number]) 79568 EST. PATIENT, LEVEL IV Diagnosis: Type 2 diabetes mellitus without complications[ICD10: E11.9] Diagnosis: Essential (primary) hypertension[ICD10: I10] Kate Sow MD, [facility] CPT-4: 36078 01/26/2016 ([id number]) 08928 EST. PATIENT, LEVEL IV Diagnosis: Essential (primary) hypertension[ICD10: I10] Diagnosis: Type 2 diabetes mellitus without complications[ICD10: E11.9] Kate Sow MD, [facility] CPT-4: 27178 10/29/2015 ([id number]) 20913 EST. PATIENT, LEVEL IV Diagnosis: Essential (primary) hypertension[ICD10: I10] Diagnosis: Dyspnea, unspecified[ICD10: R06.00] [facility] CPT-4: 76160 07/21/2015 ([id number]) 61061 EST. PATIENT, LEVEL III Diagnosis: Edema, unspecified[ICD10: R60.9] [facility] CPT-4: 71516 07/08/2015 ([id number]) OFFICE VISIT, NEW - LEVEL 4 Diagnosis: ESSENTIAL HYPERTENSION[ICD9: 401.9] Diagnosis: DIABETES TYPE II[ICD9: 250.00] [facility] CPT- 4: 75058 05/04/2015 Plan of Care Planned Activity Notes [...] or concerns. 08/17/2018 Appointment: Elizabeth Milner WPtel: [address] [place], [place] [phone] (15 min) Moderate 08/17/2018 Patient Education: Patient [...] concerns. 08/08/2018 Appointment: [facility] [phone] [id number] 30 min appointments only in this slot 08/08/2018 Patient Education: Patient Medication Summary Completed 08/08/2018 Patient Education: Diabetes Completed 08/08/2018 Appointment: Kate Sow WPtel: [phone] [facility] (15 min) Moderate 08/07/2018 Visit Plan: Diabetes [...] glucose control. 07/17/2018 App[facility]ment: [facility] [phone] [facility] (15 min) Moderate 07/17/2018 Patient Education: Patient [...] control. 06/26/2018 Appointment: [facility] [phone] [facility] (15 min) Moderate 06/26/2018 Patient Education: Patient Medication Summary Completed 06/26/2018 Patient Education: Diabetes Completed 06/26/2018 Visit Plan: Diabetes improved control while at the group home - discussed with patient and her hirale [...] Living. 06/21/2018 Appointment: [facility] [phone] [facility] (15 min) Moderate 06/21/2018 Patient Education: Patient Medication Summary Completed 06/21/2018 Patient Education: Diabetes Completed 06/21/2018 Appointment: [facility] [phone] [facility] [place] (15 min) Moderate 05/09/2018 Visit Plan: [...] sleep better. 05/02/2018 Appointment: [facility] [phone] [facility] (15 min) Moderate 05/02/2018 Patient Education: Patient Medication Summary Completed 05/02/2018 Care Plan: X-RAY EXAM L-S SPINE 2/ VWS LOINC : 53871-6 Pending 05/02/2018 Visit Plan: Low back pain- the patient was instructed in appropriate posture - The pt is to use prn antiinflammatories to manage acute pain. The patient is to call the office if the pain is worsening or does not improve. 04/27/2018 Appointment: Elizabeth Milner [facility]: [phone] [facility] [facility] ([place] min) Moderate 04/27/2018 Patient Education: Patient Medication Summary Completed 04/27/2018 Visit Plan: Double vision-suspect due to elevated blood sugars -recommend patient bring in log of blood sugars to next appt -notify plant control operator of elevated readings and watch diet closely -also recommend f/u with eye doctor Rash-suspect shingles-rx for acyclovir provided and instructed on use 04/20/2018 Appointment: [phone] [place] (15 min) Moderate 04/20/2018 Patient Education: [...] worsen. 04/12/2018 Appointment: Elizabeth Milner WPtel: [phone] [facility] (15 min) Moderate 04/12/2018 Patient Education: [...] controlled. 04/10/2018 App[facility]ment: [phone] ([facility] min) Moderate 04/10/2018 Patient Education: Patient [...] concerns. 04/03/2018 Appointment: [facility]el[phone] [place] (15 min) Moderate 04/03/2018 Patient Education: [...] home. 03/13/2018 Appointment: [facility]ow [facility]el[phone] ([facility] min) Moderate 03/13/2018 Patient Education: Patient [...] diet. 02/01/2018 Appointment: [facility] Sow [facility]Ptel: [phone] [facility] (15 min) Moderate 02/01/2018 Patient Education: Patient [...] daily. 01/18/2018 Appointment: Kate Sow [facility]Ptel: [phone] [facility] (15 min) Moderate 01/18/2018 Patient Education: Patient Medication Summary Completed 01/18/2018 Appointment: [facility]ow [facility]el: [phone] [facility] (15 min) Moderate 01/11/2018 Appointment: Kate Sow [facility]Ptel: [phone] [facility] (15 min) Moderate 12/25/2017 Visit Plan: Diabetes [...] home. Generalized weakness - physical therapy at [facility] out 12/21/2017 Appointment: Kate Sow [facility]Ptel: [phone] [facility] [place] (15 min) Moderate 12/21/2017 Patient Education: Patient Medication Summary Completed 12/21/2017 Appointment: Kate Sow [facility]Ptel: [phone] [facility] [place] (15 min) Moderate 12/13/2017 Visit Plan: [...] glucose control. 10/10/2017 Appointment: Elizabeth Milner WPtel: [facility] (15 min) Moderate 10/10/2017 Patient Education: Patient [...] at home. 09/07/2017 Appointment: Elizabeth Milner WPtel: [facility] (30 min) Complex 09/07/2017 Patient Education: Patient Medication Summary Completed 09/07/2017 Appointment: [facility] Sow [facility]Ptel: [phone] [facility] (15 min) Moderate 09/05/2017 Visit Plan: Hospital follow up - Dr. Sow in to see pt - pt was in the hospital with uncontrolled hypertension and a. fib - controlled at this time - persistent weakness requiring ongoing PT and assistance with some ADLs and medication management - [facility]. 08/30/2017 Appointment: Fartun Milnerie WPtel: [phone] [facility] (30 min) Complex 08/30/2017 Patient Education: Patient Medication Summary Completed 08/30/2017 Appointment: Elizabeth Milner WPtel: [phone] [facility] (15 min) Moderate 08/29/2017 Visit Plan: [...] home. 08/15/2017 Appointment: Kate Sow WPtel: [phone] [facility] (15 min) Moderate 08/15/2017 Patient Education: Patient Medication Summary Completed 08/15/2017 [facility] [address] Cancelled 08/15/2017 Referral: Karlee physical therapy WPtel: [phone] [facility] Patient's informed. Completed 06/26/2017 Visit Plan: [...] glucose control. Gait Instability - referral to [facility] for gait instability. Hypertension - well controlled - continue with current medications , continue with no added salt diet. Pt has been encouraged to exercise daily. The pt has been advised to call the office if there are any acute concerns about change in blood pressure readings at home. 06/15/2017 Appointment: Kate Sow WPtel: [phone] [facility] [place] (15 min) Moderate 06/15/2017 Patient Education: Patient Medication Summary Completed 06/15/2017 Care Plan: Referral Order SNOMED-CT : [id number] Pending 06/15/2017 Appointment: Nurse Visit 05/29/2017 Patient [...] and come in here or go to [facility] or [facility] to get this set of labs [...] Statin 05/11/2017 Appointment: Kate Sow WPtel: [phone] [facility] (15 min) Moderate 05/11/2017 Patient Education: Patient [...] daily. 01/05/2017 Appointment: Kate Sow WPtel: [phone] [facility] (15 min) Moderate 01/05/2017 Patient Education: Patient [...] home. 09/20/2016 Appointment: Kate Sow WPtel: [phone] [facility] (30 min) Complex 09/20/2016 Patient Education: Patient [...] acute concerns. 09/01/2016 Appointment: Laney Mcmillan WPtel: [phone] [phone] (30 min) Complex 09/01/2016 Patient Education: Patient Medication Summary Completed 09/01/2016 Appointment: Kate Sow WPtel: [phone] [facility] (15 min) Moderate 08/31/2016 Appointment: Nurse Visit [...] controlled. 06/02/2016 Appointment: Kate Sow WPtel: [phone] [facility] [place] (15 min) Moderate 06/02/2016 Patient Education: Patient Medication Summary Completed 06/02/2016 Patient Education: Hypertension Completed 06/02/2016 Visit Plan: Bradycardia - reports pt has brought in indicates that the pt has been having a pulse in the 40s-50s. Will adjust medications, pt is to notify clinic if her symptoms do not improve, or with any concerns. 03/25/2016 Appointment: Laney Mcmillan WPtel: [phone] [phone] [place] (10 min) Simple 03/25/2016 Patient [...] DM - managed by Dr. Johnson from [place] 01/26/2016 Patient Education: Patient Medication Summary Completed 01/26/2016 Patient Education: Hypertension Completed 01/26/2016 Appointment: Laney Mcmillan WPtel: [phone] [facility] (30 min) Complex 12/31/2015 Visit Plan: [...] less controlled. 10/29/2015 Appointment: Kate Sow [facility]Ptel: [phone] [facility] (15 min) Moderate 10/29/2015 Patient Education: Patient Medication Summary Completed 10/29/2015 Patient Education: Hypertension Completed 10/29/2015 Appointment: Kate Sow WPtel: [phone] [facility] (15 min) Moderate 09/14/2015 Visit Plan: [...] today, as soon as you get to [place], monday morning, then start taking the lasix [...] handout Begin using muscle rub on back ([place] balm) 05/04/2015 Appointment: Kate Sow [facility]Ptel: [phone] [facility] [place] (S) New Patient 05/04/2015 Patient Education: Patient Medication Summary Completed 05/04/2015 Patient Education: Hypertension Completed 05/04/2015 Referral[phone] [facility] [place] Ref[facility] Appointment Requested Instructions Comment see if Dr. Johnson has the toujeo samples for you - if not , go to the pharmacy to cook pickled meat the toujeo script. if the toujeo script [...] glucose control. Gait Instability - referral to [facility] for gait instability. Hypertension - [...] of blood sugars to next appt -notify plant control operator of elevated readings and watch diet closely [...] today, as soon as you get to [place], monday morning, then start taking the lasix [...] today, as soon as you get to [place], monday morning, then start taking the lasix [...] change in blood pressure readings at home. Stop the Atorvastatin - I think it [...] or with any questions or concerns. . Hospital follow up - Dr. Sow in to see pt - pt was in the hospital with uncontrolled hypertension and a. fib - controlled at this time - persistent weakness requiring ongoing PT and assistance with some ADLs and medication management - will [facility] to [facility] facility for ongoing [facility]. . Bradycardia - [...] DM - managed by Dr. Johnson from [place] . Low back pain- the patient was [...] and come in here or go to [facility] or [facility] to get this set of labs [...] and come in here or go to [facility] or [facility] to get this set of labs [...] . Diabetes improved control while at the group home - discussed with patient and her daughte [...] handout Begin using muscle rub on back ([place] balm) Begin taking Lasix again No blood [...] handout Begin using muscle rub on back ([place] balm) . Diabetes Mellitus - improved control- [...]
[2018-08-24] MEDS ORDERED: NS IV 1000 ML 1,000 ML IV SCH ×2 (18:00→20:39)
[2018-08-24 18:01] LABS: ALBUMIN 3.7 GM/DL (3.2-4.5); BILIRUBIN,TOTAL 0.2 MG/DL (0.1-1.0); CALCIUM 9.9 MG/DL (8.5-10.1); CREATININE SERUM 1.8 MG/DL (0.60-1.30); POTASSIUM 4.6 MMOL/L (3.6-5.0)
[2018-08-24 18:11] LABS: BILIRUBIN,URINE NEGATIVE (NEGATIVE); CLARITY,URINE CLEAR; COLOR,URINE YELLOW; GLUCOSE, URINE (UA) 4+ (NEGATIVE); KETONES,URINE NEGATIVE (NEGATIVE); LEUKOCYTE ESTERASE ,URINE 1+ (NEGATIVE); NITRITE,URINE NEGATIVE (NEGATIVE); PH,URINE 6 (5-9); PROTEIN,URINE 3+ (NEGATIVE); UROBILINOGEN,URINE NORMAL (NORMAL)
--- NOTE | 2018-08-24 18:11 | Diagnostic Imaging Report ---
Examination: Frontal portable chest Indication: Fever, cough, and congestion. Comparison: Multiple priors, most recent on 08/22/2018. Findings: There is persistent central venous congestion and interstitial prominence. No focal consolidation. No pneumothorax or significant pleural effusion. The cardiomediastinal silhouette is unchanged. No acute osseous abnormality. Loop recorder and surgical clips overlie the left lower thorax and upper abdomen. Impression: No significant change in interstitial edema. Dictated by: Dictated on workstation # [id number]
[2018-08-24] MEDS ORDERED: ACETAMINOPHEN 500 MG TAB (TYLENOL) PO ONE (18:15)
[2018-08-24 18:17] LABS: BACTERIA,URINE NEGATIVE /HPF; SQUAMOUS EPITHELIAL CELL,UR RARE /HPF
[2018-08-24] MEDS ORDERED: inSUlin (REGULAR) HUMAN 1 UNIT/0.01 ML (CHARGE PER UNIT) IV ONE (18:45)
--- NOTE | 2018-08-24 19:44 | ED General ---
General Chief Complaint: Fever-Adult/Adol Stated Complaint: CONFUSION Nursing Triage Note: PT OUT OF CAR BY THIS RN, PT SHAKING AND CRYING, STATES HE FOUND HER THIS WAY WHEN HE GOT HOME. PT HAS HX OF HYPOGLYCEMIA, FSBS 583 AT THIS X. PT HAS LOW GRADE FEVER OF 100.3. PT RELEASED FROM HOSP TODAY Nursing Sepsis Screen: No Definite Risk Source of Information: Patient Exam Limitations: No Limitations History of Present Illness Date Seen by Provider: Aug 24, 2018 Time Seen by Provider: 17:20 Initial Comments Patient is an 88-year-old female who is brought to the emergency room by her for complaints of anxiety, shaking and crying. Her reports that he dropped his I felt home after being discharged from the hospital today and running to the pharmacy to get medications and when he returned home he found her this way. He reports that she was admitted to the hospital for urinary tract infection and chest pain. He also reports that she has a history of hypoglycemia. Her blood sugar on arrival to the emergency room was 583 via fingerstick. She also has a low-grade fever of 100.3. Timing/Duration: 1-3 Hours Associated Systoms: Fever/Chills Allergies and Home Medications Allergies Coded Allergies: No Known Drug Allergies (Unverified , 03/17/18) Home Medications Amlodipine Besylate 10 Mg Tablet, 10 MG PO HS, (Reported) Apixaban 2.5 Mg Tablet, 2.5 MG PO BID, (Reported) LAST FILLED #60 05-05-18 Aspirin 81 Mg Tablet.dr, 81 MG PO DAILY, (Reported) Atorvastatin Calcium 40 Mg Tablet, 40 MG PO HS, (Reported) Diclofenac Sodium 100 Gm Gel..gram., TOP QID PRN for ARTHRITIS PAIN, (Reported) Furosemide 20 Mg Tablet, 20 MG PO DAILY PRN for SWELLING, (Reported) Insulin Aspart 300 Units/3 Ml Solution, SC AC, (Reported) 80-150 = 10 UNITS 151-200 = 15 UNITS 201-300 = 17 UNITS > 300 = 21 UNITS Insulin Glargine,Hum.rec.anlog 300 Unit/1 Ml Insuln.pen, 20 UNIT SQ HS, ( Reported) L.acidoph & Paracasei,B.lactis 1 Each Capsule, 1 CAP PO TID, (Reported) Levofloxacin 250 Mg Tablet, PO UD, (Reported) 7 DAY SUPPLY FILLED 08-20-18 TAKE 2 (250MG) TABS DAY 1 THEN TAKE 1 (250MG) TAB DAYS 2-7 Losartan Potassium 100 Mg Tablet, 100 MG PO DAILY, (Reported) LAST FILLED #90 04-03-18 Metoprolol Succinate 50 Mg Tab.er.24h, 50 MG PO DAILY, (Reported) Potassium Chloride 10 Meq Tablet.er, 10 MEQ PO DAILY PRN for WHEN TAKING FUROSEMIDE, (Reported) Patient Home Medication List Home Medication List Reviewed: Yes Review of Systems Review of Systems Constitutional: see HPI, chills, fever Psychiatric/Neurological: See HPI, Emotional Problems Past Qqzwwvt-Bowrlt-Bopnmo Hx Past Med/Social Hx: Reviewed Nursing Past Med/Soc Hx Patient Social History Alcohol Use: Denies Use Number of Drinks Today: DD Alcohol Beverage of Choice: Rum Recreational Drug Use: No Smoking Status: Never a Smoker 2nd Hand Smoke Exposure: No Recent Foreign Travel: No Contact w/Someone Who Travel: No Recent Infectious Disease Expo: No Recent Hopitalizations: Yes (RELEASED FROM HOSP TODAY) Immunizations Up To Date Tetanus Booster (TDap): Unknown PED Vaccines UTD: No Date of Pneumonia Vaccine: Jun 18, 2017 Date of Influenza Vaccine: Aug 08, 2018 Seasonal Allergies Seasonal Allergies: No Past Medical History Surgeries: Yes (RIGHT FOOT SURGERY) Respiratory: No Currently Using CPAP: No Currently Using BIPAP: No Cardiac: Yes (STENTS, MONITOR PLACED BY DR. 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 Sexually Transmitted Disease: No HIV/AIDS: No Genitourinary: Yes ( KIDNEY DISEASE, recurrent urinary tract infection) Renal Failure Gastrointestinal: No Musculoskeletal: Yes Arthritis Endocrine: Yes Diabetes, Insulin dep HEENT: Yes Cataract Loss of Vision: Denies Hearing Impairment: Hard of Hearing, Bilateral Hearing Aide Cancer: No Psychosocial: No Integumentary: No Blood Disorders: No Adverse Reaction/Blood Tranf: No Family Medical History Reviewed Nursing Family Hx Alzheimer's disease 19 MOTHER, Arthritis 19 FATHER, 19 MOTHER, G8 BROTHER, G8 BROTHER, G8 BROTHER G8 SISTER G8 SISTER Cardiovascular disease 19 MOTHER, G8 BROTHER, Completed stroke 19 MOTHER, G8 SISTER Hypercholesterolemia 19 FATHER, G8 BROTHER, Hypertension 19 MOTHER, Myocardial infarction 19 FATHER, G8 BROTHER, Heart Disease, Diabetes, Hypertension, Stroke Physical Exam-Suspected Sepsis Physical Exam Vital Signs Vital Signs - First Documented 08/24/18 17:28 Temp 100.3 Pulse 95 Resp 24 B/P (MAP) 200/85 (123) Pulse Ox 97 Capillary Refill : Less Than 3 Seconds Blood Pressure Mean: 123 Height, Weight, BMI Height: 5'0.00" Weight: 111lbs. 12.0oz. 50.301151fn; 20.7 BMI Method:Stated General Appearance: No Apparent Distress, Mild Distress Eyes: Bilateral Eye Normal Inspection, Bilateral Eye PERRL, Bilateral Eye EOMI HEENT: PERRL/EOMI, TMs Normal, Normal ENT Inspection, Pharynx Normal Neck: Full Range of Motion, Normal Inspection, Non Tender, Supple Respiratory: Chest Non Tender, Lungs Clear, Normal Breath Sounds, No Accessory Muscle Use, No Respiratory Distress Cardiovascular: Regular Rate, Rhythm, No Edema, No Gallop, No JVD, No Murmur Gastrointestinal: Normal Bowel Sounds, No Organomegaly, No Pulsatile Mass, Non Tender, Soft Extremity: Normal Capillary Refill Neurologic/Psychiatric: Alert, Oriented x3, Normal Mood/Affect Skin: normal color, warm/dry Focused Exam Lactate Level 08/24/18 17:26: Lactic Acid Level 3.69*H 08/24/18 20:00: Lactic Acid Level 2.94*H Lactic Acid Level Laboratory Tests Test 08/24/18 20:00 Lactic Acid Level 2.94 MMOL/L (0.50-2.00) *H Progress/Results/Core Measures Suspected Sepsis Recent Fever Within 48 Hours: No Infection Criteria Present: None New/Unexplained Altered Menta: No Sepsis Screen: No Definite Risk SIRS Temperature:100.3 Pulse: 95 Respiratory Rate: 24 Laboratory Tests 08/24/18 17:26: White Blood Count 11.1H 08/24/18 21:00: White Blood Count 10.9 Blood Pressure 200 /85 Mean: 123 08/24/18 17:26: Lactic Acid Level 3.69*H 08/24/18 20:00: Lactic Acid Level 2.94*H Laboratory Tests 08/24/18 17:26: Creatinine 1.80H, INR Comment 1.0, Platelet Count 438H, Total Bilirubin 0.2 08/24/18 21:00: Creatinine 1.39H, Platelet Count 407H Results/Orders Lab Results Laboratory Tests Test 08/24/18 17:26 08/24/18 18:02 08/24/18 20:00 08/24/18 20:08 Range/Units White Blood Count 11.1 H 4.3-11.0 10^3/uL Red Blood Count 4.23 L 4.35-5.85 10^6/uL Hemoglobin 12.6 11.5-16.0 G/DL Hematocrit 39 35-52 % Mean Corpuscular Volume 93 80-99 FL Mean Corpuscular Hemoglobin 30 25-34 PG Mean Corpuscular Hemoglobin Concent 32 32-36 G/DL Red Cell Distribution Width 14.1 10.0-14.5 % Platelet Count 438 H 130-400 10^3/uL Mean Platelet Volume 11.0 H 7.4-10.4 FL Neutrophils (%) (Auto) 57 42-75 % Lymphocytes (%) (Auto) 28 12-44 % Monocytes (%) (Auto) 13 H 0-12 % Eosinophils (%) (Auto) 2 0-10 % Basophils (%) (Auto) 0 0-10 % Neutrophils # (Auto) 6.3 1.8-7.8 X 10^3 Lymphocytes # (Auto) 3.1 1.0-4.0 X 10^3 Monocytes # (Auto) 1.4 H 0.0-1.0 X 10^3 Eosinophils # (Auto) 0.2 0.0-0.3 10^3/uL Basophils # (Auto) 0.0 0.0-0.1 10^3/uL Prothrombin Time 13.0 12.2-14.7 SEC INR Comment 1.0 0.8-1.4 Activated Partial Thromboplast Time 31 24-35 SEC Sodium Level 135 135-145 MMOL/L Potassium Level 4.6 3.6-5.0 MMOL/L Chloride Level 105 98-107 MMOL/L Carbon Dioxide Level 15 L 21-32 MMOL/L Anion Gap 15 H 5-14 MMOL/L Blood Urea Nitrogen 32 H 7-18 MG/DL Creatinine 1.80 H 0.60-1.30 MG/DL Estimat Glomerular Filtration Rate 26 BUN/Creatinine Ratio 18 Glucose Level 593 *H 70-105 MG/DL Lactic Acid Level 3.69 *H 2.94 *H 0.50-2.00 MMOL/L Calcium Level 9.9 8.5-10.1 MG/DL Corrected Calcium 10.1 8.5-10.1 MG/DL Total Bilirubin 0.2 0.1-1.0 MG/DL Aspartate Amino Transf (AST/SGOT) 30 5-34 U/L Alanine Aminotransferase (ALT/SGPT) 123 H 0-55 U/L Alkaline Phosphatase 127 40-136 U/L Total Protein 7.0 6.4-8.2 GM/DL Albumin 3.7 3.2-4.5 GM/DL Amylase Level 118 25-125 U/L Lipase 201 H 8-78 U/L Urine Color YELLOW Urine Clarity CLEAR Urine pH 6 5-9 Urine Specific [place] 1.015 L 1.016-1.022 Urine Protein 3+ H NEGATIVE Urine Glucose (UA) 4+ H NEGATIVE Urine Ketones NEGATIVE NEGATIVE Urine Nitrite NEGATIVE NEGATIVE Urine Bilirubin NEGATIVE NEGATIVE Urine Urobilinogen NORMAL NORMAL MG/DL Urine Leukocyte Esterase 1+ H NEGATIVE Urine RBC (Auto) 1+ H NEGATIVE Urine RBC NONE /HPF Urine WBC 2-5 /HPF Urine Squamous Epithelial Cells RARE /HPF Urine Crystals NONE /LPF Urine Bacteria NEGATIVE /HPF Urine Casts NONE /LPF Urine Mucus NEGATIVE /LPF Urine Culture Indicated NO Blood Gas Puncture Site RIGHT RADIAL Blood Gas Patient Temperature 98.7 Arterial Blood pH 7.41 7.37-7.43 Arterial Blood Partial Pressure CO2 31 L 35-45 MMHG Arterial Blood Partial Pressure O2 51 L 79-93 MMHG Arterial Blood HCO3 19 L 23-27 MMOL/L Arterial Blood Total CO2 19.7 L 21.0-31.0 MMOL/L Arterial Blood Oxygen Saturation 85 L 94-100 % Arterial Blood Base Excess -5.1 L -2.5-2.5 MMOL/L [place]um Test POSITIVE Blood Gas Ventilator Setting NO Blood Gas Inspired Oxygen N Test 08/24/18 20:49 08/24/18 21:00 08/24/18 22:04 Range/Units Glucometer 267 H 235 H 70-110 MG/DL White Blood Count 10.9 4.3-11.0 10^3/uL Red Blood Count 3.95 L 4.35-5.85 10^6/uL Hemoglobin 11.8 11.5-16.0 G/DL Hematocrit 37 35-52 % Mean Corpuscular Volume 93 80-99 FL Mean Corpuscular Hemoglobin 30 25-34 PG Mean Corpuscular Hemoglobin Concent 32 32-36 G/DL Red Cell Distribution Width 14.0 10.0-14.5 % Platelet Count 407 H 130-400 10^3/uL Mean Platelet Volume 10.5 H 7.4-10.4 FL Sodium Level 140 135-145 MMOL/L Potassium Level 4.1 3.6-5.0 MMOL/L Chloride Level 111 H 98-107 MMOL/L Carbon Dioxide Level 17 L 21-32 MMOL/L Anion Gap 12 5-14 MMOL/L Blood Urea Nitrogen 31 H 7-18 MG/DL Creatinine 1.39 H 0.60-1.30 MG/DL Estimat Glomerular Filtration Rate 36 BUN/Creatinine Ratio 22 Glucose Level 275 H 70-105 MG/DL Calcium Level 9.6 8.5-10.1 MG/DL Micro Results Microbiology 08/24/18 Influenza Types A,B Antigen (ANUSHA) - Final, Complete My Orders Orders - JAROD TURNER Cbc With Automated Diff (08/24/18 17:20) Comprehensive Metabolic Panel (08/24/18 17:20) Blood Culture (08/24/18 17:20) Sputum Culture (08/24/18 17:20) Urinalysis (08/24/18 17:20) Urine Culture (08/24/18 17:20) Protime With Inr (08/24/18 17:20) Partial Thromboplastin Time (08/24/18 17:20) Chest 1 View, Ap/Pa Only (08/24/18 17:20) Saline Lock/Iv-Start (08/24/18 17:20) Saline Lock/Iv-Start (08/24/18 17:20) O2 (08/24/18 17:20) Remove Rings In Anticipation O (08/24/18 17:20) Lactic Acid Analyzer (08/24/18 17:20) Influenza A And B Antigens (08/24/18 17:22) Amylase (08/24/18 17:28) Lipase (08/24/18 17:28) Ns Iv 1000 Ml (Sodium Chloride 0.9%) (08/24/18 18:00) Acetaminophen Tablet (Tylenol Tablet) (08/24/18 18:15) Insulin (Regular) Human (Humulin R (Per (08/24/18 18:45) Arterial Blood Draw (08/24/18 19:45) Arterial Blood Gas (08/24/18 20:09) Medications Given in ED Current Medications Medications Dose Ordered Sig/Thee Route Start Time Stop Time Status Last Admin Dose Admin Acetaminophen 1,000 mg ONCE ONCE PO 08/24/18 18:15 08/24/18 18:16 DC 08/24/18 18:27 1,000 MG Insulin Human Regular 10 unit ONCE ONCE IV 08/24/18 18:45 08/24/18 18:46 DC 08/24/18 19:20 10 UNIT Vital Signs/I&O 08/24/18 08/24/18 17:28 20:31 Temp 100.3 Pulse 95 96 Resp 24 B/P (MAP) 200/85 (123) Pulse Ox 97 Capillary Refill : Less Than 3 Seconds Blood Pressure Mean: 123 Point of Care Testing Finger Stick Blood Glucose: 583 Blood Glucose Action Taken: REPORTED TO OUTPATIENT SERVICES DIRECTOR Progress Note : Time: 19:00 Progress Note I seen and evaluated the patient. I spoke to Dr. Galeana at this time and she agrees with plans for admission and ordering an ABG. 1945: After several attempts at an ABG I was able to obtain a sample. Nursing staff gave report to the AGRONOMY SPECIALIST and it was recommended to follow-up on ABG results with attending physician/eICU physician. Diagnostic Imaging Diagonstic Imaging: Xray Plain Films/CT/US/NM/MRI: chest Comments [facility] [place] NAME: ABBIE JENKINS [facility] REC#: [id number] PT STATUS: REG ER : 1930 PHYSICIAN: JAROD TURNER ADMIT DATE: 08/24/18/ER Draft Date of Exam:08/24/18 CHEST 1 VIEW, AP/PA ONLY Examination: Frontal portable chest Indication: Fever, cough, and congestion. Comparison: Multiple priors, most recent on 08/22/2018. Findings: There is persistent central venous congestion and interstitial prominence. No focal consolidation. No pneumothorax or significant pleural effusion. The cardiomediastinal silhouette is unchanged. No acute osseous abnormality. Loop recorder and surgical clips overlie the left lower thorax and upper abdomen. Impression: No significant change in interstitial edema. Dictated on workstation # [id number] Dict: 08/24/18 1743 Trans: 08/24/18 1811 [facility] [id number] Interpreted by: ES WHITEHEAD DO Electronically signed by: Reviewed: Reviewed by Me Departure Communication (Admissions) Time/Spoke to Admitting Phy: 19:03 Dr. Galeana Impression Primary Impression: DKA (diabetic ketoacidoses) Disposition: 01 HOME, SELF-CARE Condition: Stable/Unchanged Admissions Decision to Admit Reason: Admit from ER (General) Decision to Admit/Date: Aug 24, 2018 Time/Decision to Admit Time: 19:03 Departure-Patient Inst. Referrals: JONN YAO MD (PCP/Family) Primary Care Physician JAROD TURNER Aug 24, 2018 19:44
[2018-08-24 20:15] LABS: ABG BASE EXCESS -5.1 MMOL/L (-2.5-2.5); ABG OXYGEN SATURATION 85 % (94-100); ABG PCO2 31 MMHG (35-45); ABG PH 7.41 (7.37-7.43); ABG PO2 51 MMHG (79-93); ABG TCO2 19.7 MMOL/L (21.0-31.0)
[2018-08-24 20:16] LABS: ALLENS TEST POSITIVE; INSPIRED O2 N; PATIENT TEMP 98.7; VENTILATOR NO
[2018-08-24] MEDS ORDERED: inSUlin REGULAR TPN/DRIP ONLY 250 UNITS in NORMAL SALINE 250 ML IV SCH (20:45)
[2018-08-24 21:00] VITALS: BP 158/63
[2018-08-24 21:13] LABS: HEMOGLOBIN 11.8 G/DL (11.5-16.0); MEAN PLATELET VOLUME 10.5 FL (7.4-10.4); RED BLOOD COUNT 3.95 10^6/uL (4.35-5.85); WHITE BLOOD COUNT 10.9 10^3/uL (4.3-11.0)
[2018-08-24] MEDS ORDERED: NORMAL SALINE 250 ML ONE (21:15)
[2018-08-24] MEDS ORDERED: ONDANSETRON 4 MG/2 ML (SDV) Z0FRAN IV PRN (21:15)
[2018-08-24] MEDS ORDERED: inSUlin (REGULAR) HUMAN 1 UNIT/0.01 ML (CHARGE PER UNIT) ONE (21:19)
[2018-08-24 21:32] LABS: CALCIUM 9.6 MG/DL (8.5-10.1); CREATININE SERUM 1.39 MG/DL (0.60-1.30); POTASSIUM 4.1 MMOL/L (3.6-5.0)
[2018-08-24] MEDS: 1/2 NS IV SOLUTION 1,000 ML IV SCH (21:46)
[2018-08-24 22:00] VITALS: BP 164/62
[2018-08-24] MEDS: D5 1/2 NS 1000 ML IV SOLUTION 1,000 ML IV SCH (22:17)
[2018-08-24] MEDS: POTASSIUM CL 10MEQ/50ML IVPB 50 ML IV SCH (22:18)
[2018-08-24 23:00] VITALS: BP 154/59
[2018-08-24 23:08] LABS: CALCIUM 9.2 MG/DL (8.5-10.1); CREATININE SERUM 1.25 MG/DL (0.60-1.30); POTASSIUM 4.1 MMOL/L (3.6-5.0)
[2018-08-25] VITALS (25 sets, daily range): BP systolic 104–171; BP diastolic 48–84
[2018-08-25] MEDS: 1/2 NS IV SOLUTION 1,000 ML IV SCH ×5 (00:51→16:48)
[2018-08-25] MEDS: POTASSIUM CL 10MEQ/50ML IVPB 50 ML IV SCH ×9 (01:16→19:27)
[2018-08-25] MEDS: D5 1/2 NS 1000 ML IV SOLUTION 1,000 ML IV SCH ×5 (02:07→19:25)
[2018-08-25] MEDS: ACETAMINOPHEN 500 MG TAB (TYLENOL) PO PRN ×2 (02:07→21:59)
[2018-08-25 03:36] LABS: HEMOGLOBIN 11.1 G/DL (11.5-16.0); MEAN PLATELET VOLUME 10.4 FL (7.4-10.4); RED BLOOD COUNT 3.62 10^6/uL (4.35-5.85); RED CELL DISTRIBUTION WIDTH 14.1 % (10.0-14.5); WHITE BLOOD COUNT 9.5 10^3/uL (4.3-11.0)
[2018-08-25 03:58] LABS: CALCIUM 8.8 MG/DL (8.5-10.1); CREATININE SERUM 1.13 MG/DL (0.60-1.30); POTASSIUM 4.3 MMOL/L (3.6-5.0)
[2018-08-25 05:38] LABS: MAGNESIUM 1.6 MG/DL (1.8-2.4); PHOSPHORUS 2.6 MG/DL (2.3-4.7)
[2018-08-25] MEDS: MAGNESIUM 1 GM/100 ML IVPB 100 ML IV SCH ×3 (05:53→07:19)
[2018-08-25] MEDS: KCL 20 MEQ TAB (K-DUR) PO SCH (05:54)
--- NOTE | 2018-08-25 10:01 | History & Physical-Hospitalist ---
History of Present Illness HPI/Chief Complaint CC: DKA and ARF HPI: This is an 88yoWF clinic patient of Dr Sow who lives at home with her and has HH who was just DC yesterday afternoon who presented to the ER with complaints of confusion and fever. W/U revealed extremely high sugar, elevated lactic acid and low bicarb and increased anion gap and rest of sepsis w /u negative. She was placed on DKA protocol and received IVF overnight and feels better today. She has been increasingly confused at home and having difficulty setting up her meds accurately and she appears to be in need of NH placement or AL due to memory loss as reported by the daughters at the bedside. Bicarb has increased from 15 to 17 while on insulin drip. Dr Mendoza is her Endo, Dr Rivas is her Dry End Tester and Dr Correia is her CVS. Source: patient Exam Limitations: no limitations Date Seen 08/25/18 Time Seen by a Provider: 09:15 Attending Physician Mirian Garcia Holly A MD Referring Physician Date of Admission Aug 24, 2018 at 19:03 Home Medications & Allergies Home Medications Reviewed patient Home Medication Reconciliation performed by pharmacy medication reconciliations fiber technician and/or nursing. Patients Allergies have been reviewed. Allergies Allergies Coded Allergies No Known Drug Allergies (Unverified03/17/18) Past Yllpsdf-Zuxlos-Aisiwo Hx Past Med/Social Hx: Reviewed Nursing Past Med/Soc Hx, Reviewed and Corrections made Patient Social History Marrital Status: Employed/Student: retired Alcohol Use: Denies Use Number of Drinks Today: DD Alcohol Beverage of Choice: Rum Recreational Drug Use: No Smoking Status: Never a Smoker 2nd Hand Smoke Exposure: No Physical Abuse Screen: No Sexual Abuse: No Recent Foreign Travel: No Contact w/other who traveled: No Recent Hopitalizations: Yes (RELEASED FROM HOSP TODAY) Recent Infectious Disease Expo: No Immunizations Up To Date Tetanus Booster (TDap): Unknown Pediatric: No Date of Pneumonia Vaccine: Jun 18, 2017 Date of Influenza Vaccine: Aug 08, 2018 Seasonal Allergies Seasonal Allergies: No Past Medical History Currently Using CPAP: No Currently Using BIPAP: No Cardiac: Atrial Fibrillation, Heart Attack, Hypertension, Peripheral Vascular Neurological: Stroke Reproductive: No Sexually Transmitted Disease: No HIV/AIDS: No Menopausal Genitourinary: Renal Failure Musculoskeletal: Arthritis Endocrine: Diabetes, Insulin dep HEENT: Cataract Loss of Vision: Denies Hearing Impairment: Hard of Hearing, Bilateral Hearing Aide History of Blood Disorders: No Adverse Reaction to Blood Sotomayor: No Family History Reviewed Nursing Family Hx Alzheimer's disease 19 MOTHER, Arthritis 19 FATHER, 19 MOTHER, G8 BROTHER, G8 BROTHER, G8 BROTHER G8 SISTER G8 SISTER Cardiovascular disease 19 MOTHER, G8 BROTHER, Completed stroke 19 MOTHER, G8 SISTER Hypercholesterolemia 19 FATHER, G8 BROTHER, Hypertension 19 MOTHER, Myocardial infarction 19 FATHER, G8 BROTHER, Heart Disease, Diabetes, Hypertension, Stroke Review of Systems Constitutional: see HPI, dizziness, malaise, weakness EENTM: no symptoms reported Respiratory: no symptoms reported Cardiovascular: no symptoms reported Gastrointestinal: no symptoms reported Genitourinary: no symptoms reported Musculoskeletal: no symptoms reported Skin: no symptoms reported Psychiatric/Neurological: Weakness All Other Systems Reviewed Negative Unless Noted: Yes Physical Exam Physical Exam Vital Signs Vital Signs - First Documented 08/24/18 08/24/18 17:28 20:26 Temp 100.3 Pulse 95 Resp 24 B/P (MAP) 200/85 (123) Pulse Ox 97 O2 Delivery Room Air Capillary Refill : Less Than 3 Seconds Height, Weight, BMI Height: 5'0.00" Weight: 128lbs. 1.0oz. 58.238469pc; 24.6 BMI Method:Stated General Appearance: No Apparent Distress, WD/WN, Chronically ill, Other ( baseline confusion) Eyes: Bilateral Eye Normal Inspection, Bilateral Eye PERRL HEENT: PERRL/EOMI, Normal ENT Inspection, Pharynx Normal Neck: Full Range of Motion, Normal Inspection, Non Tender, Supple, Carotid Bruit Respiratory: Chest Non Tender, Lungs Clear, Normal Breath Sounds, No Accessory Muscle Use, No Respiratory Distress Cardiovascular: Regular Rate, Rhythm, No Edema, No Gallop, No JVD, No Murmur, Normal Peripheral Pulses Gastrointestinal: Normal Bowel Sounds, No Organomegaly, No Pulsatile Mass, Non Tender, Soft Back: Normal Inspection, No CVA Tenderness, No Vertebral Tenderness Extremity: Normal Capillary Refill, Normal Inspection, Normal Range of Motion, Non Tender, No Calf Tenderness, No Pedal Edema Neurologic/Psychiatric: Alert, Oriented x3, No Motor/Sensory Deficits, Normal Mood/Affect Skin: Normal Color, Warm/Dry Lymphatic: No Adenopathy Results Results/Procedures Labs Laboratory Tests 08/24/18 17:26 08/24/18 21:00 08/24/18 22:42 08/25/18 03:20 Patient resulted labs reviewed. Assessment/Plan Admission Diagnosis Assessment: DKA in labile diabetic managed by Socrates Mendoza Medication errors at home may need NH placement since HH already in place and failed Severe UNALAKLEET making communication difficult ARF HTN CAD CT hx Advanced age Plan: IVF DKA protocol Monitor creatinine DNR Placement may be needed Admission Status: Inpatient Order (span 2 midnights) Reason for Inpatient Admission: DKA will require 3 days to clear Diagnosis/Problems Diagnosis/Problems (1) DKA (diabetic ketoacidoses) Status: Acute Qualifiers: Diabetes mellitus type: type 2 Diabetes mellitus complication detail: without coma Qualified Codes: E11.10 - Type 2 diabetes mellitus with ketoacidosis without coma (2) Renal insufficiency Status: Acute (3) Anemia Status: Chronic Qualifiers: Anemia type: unspecified type Qualified Codes: D64.9 - Anemia, unspecified (4) Lactic acidemia Status: Acute (5) Advanced age Status: Chronic (6) Hypertension Status: Chronic Qualifiers: Hypertension type: essential hypertension Qualified Codes: I10 - Essential (primary) hypertension Clinical Quality Measures DVT/VTE Risk/Contraindication: Risk Factor Score Per Nursin RFS Level Per Nursing on Admit: 2=Moderate MIRIAN GARCIA DO Aug 25, 2018 10:01
[2018-08-25 13:41] LABS: CALCIUM 9.1 MG/DL (8.5-10.1); CREATININE SERUM 1.06 MG/DL (0.60-1.30); POTASSIUM 4.6 MMOL/L (3.6-5.0)
--- NOTE | 2018-08-25 17:47 | Pulmonary Consultation ---
History of Present Illness History of Present Illness Date of Consultation 08/25/18 17:42 Date of Admission Allergies and Home Medications Allergies Coded Allergies: No Known Drug Allergies (Unverified , 03/17/18) Home Medications Amlodipine Besylate 10 Mg Tablet, 10 MG PO HS, (Reported) Apixaban 2.5 Mg Tablet, 2.5 MG PO BID, (Reported) LAST FILLED #60 05-05-18 Aspirin 81 Mg Tablet.dr, 81 MG PO DAILY, (Reported) Atorvastatin Calcium 40 Mg Tablet, 40 MG PO HS, (Reported) Diclofenac Sodium 100 Gm Gel..gram., TOP QID PRN for ARTHRITIS PAIN, (Reported) Furosemide 20 Mg Tablet, 20 MG PO DAILY PRN for SWELLING, (Reported) Insulin Aspart 300 Units/3 Ml Solution, SC AC, (Reported) 80-150 = 10 UNITS 151-200 = 15 UNITS 201-300 = 17 UNITS > 300 = 21 UNITS Insulin Glargine,Hum.rec.anlog 300 Unit/1 Ml Insuln.pen, 20 UNIT SQ HS, ( Reported) L.acidoph & Paracasei,B.lactis 1 Each Capsule, 1 CAP PO TID, (Reported) Levofloxacin 250 Mg Tablet, PO UD, (Reported) 7 DAY SUPPLY FILLED 08-20-18 TAKE 2 (250MG) TABS DAY 1 THEN TAKE 1 (250MG) TAB DAYS 2-7 Losartan Potassium 100 Mg Tablet, 100 MG PO DAILY, (Reported) LAST FILLED #90 04-03-18 Metoprolol Succinate 50 Mg Tab.er.24h, 50 MG PO DAILY, (Reported) Potassium Chloride 10 Meq Tablet.er, 10 MEQ PO DAILY PRN for WHEN TAKING FUROSEMIDE, (Reported) Past Bbhgfrv-Udzxsj-Snokxn Hx Past Med/Social Hx: Reviewed Nursing Past Med/Soc Hx, Reviewed and Corrections made Patient Social History Alcohol Use: Denies Use Number of Drinks Today: DD Alcohol Beverage of Choice: Rum Recreational Drug Use: No Smoking Status: Never a Smoker 2nd Hand Smoke Exposure: No Recent Foreign Travel: No Contact w/Someone Who Travel: No Recent Infectious Disease Expo: No Recent Hopitalizations: Yes (RELEASED FROM HOSP TODAY) Immunizations Up To Date Tetanus Booster (TDap): Unknown PED Vaccines UTD: No Date of Pneumonia Vaccine: Jun 18, 2017 Date of Influenza Vaccine: Aug 08, 2018 Seasonal Allergies Seasonal Allergies: No Past Medical History Surgeries: Yes (RIGHT FOOT SURGERY) Respiratory: No Currently Using CPAP: No Currently Using BIPAP: No Cardiac: Yes (STENTS, MONITOR PLACED BY DR. 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 Sexually Transmitted Disease: No HIV/AIDS: No Genitourinary: Yes ( KIDNEY DISEASE, recurrent urinary tract infection) Renal Failure Gastrointestinal: No Musculoskeletal: Yes Arthritis Endocrine: Yes Diabetes, Insulin dep HEENT: Yes Cataract Loss of Vision: Denies Hearing Impairment: Hard of Hearing, Bilateral Hearing Aide Cancer: No Psychosocial: No Integumentary: No Blood Disorders: No Adverse Reaction/Blood Tranf: No Family Medical History Reviewed Nursing Family Hx Alzheimer's disease 19 MOTHER, Arthritis 19 FATHER, 19 MOTHER, G8 BROTHER, G8 BROTHER, G8 BROTHER G8 SISTER G8 SISTER Cardiovascular disease 19 MOTHER, G8 BROTHER, Completed stroke 19 MOTHER, G8 SISTER Hypercholesterolemia 19 FATHER, G8 BROTHER, Hypertension 19 MOTHER, Myocardial infarction 19 FATHER, G8 BROTHER, Heart Disease, Diabetes, Hypertension, Stroke Sepsis Event Evaluation Height, Weight, BMI Height: 5'0.00" Weight: 128lbs. 1.0oz. 58.844440zp; 24.6 BMI Method:Stated Exam Exam Vital Signs Date Time Temp Pulse Resp B/P (MAP) Pulse Ox O2 Delivery O2 Flow Rate FiO2 08/25/18 17:00 82 25 164/57 (92) 96 Room Air 08/25/18 16:00 Room Air 08/25/18 16:00 78 11 166/50 (88) 94 Room Air 08/25/18 15:00 77 23 164/63 (96) 96 Room Air 08/25/18 14:00 72 16 144/62 (89) 95 Room Air 08/25/18 13:00 75 08/25/18 13:00 75 16 159/60 (93) 97 Room Air 08/25/18 12:00 98.2 71 13 153/48 (83) 94 Room Air 08/25/18 12:00 Room Air 08/25/18 11:00 71 16 160/58 (92) 93 Room Air 08/25/18 10:00 75 22 125/62 (83) 96 Room Air 08/25/18 09:00 76 14 150/66 (94) 97 Room Air 08/25/18 08:10 97.6 71 16 147/53 (84) 96 Room Air 08/25/18 08:00 74 18 147/53 (84) 96 Nasal Cannula 2.00 08/25/18 08:00 Room Air 08/25/18 07:00 66 16 134/52 (79) 93 Nasal Cannula 2.00 08/25/18 07:00 70 08/25/18 06:09 68 16 143/49 (80) 92 Nasal Cannula 2.00 08/25/18 05:00 66 17 150/58 (88) 94 Nasal Cannula 2.00 08/25/18 05:00 98.2 08/25/18 04:34 98.4 08/25/18 04:00 98.6 08/25/18 04:00 64 17 159/63 (95) 92 Nasal Cannula 2.00 08/25/18 03:00 72 10 148/55 (86) 95 Nasal Cannula 2.00 08/25/18 03:00 Room Air 08/25/18 02:07 99.1 08/25/18 02:00 84 31 152/63 (92) 94 Nasal Cannula 2.00 08/25/18 02:00 99.1 08/25/18 01:00 75 08/25/18 01:00 75 08/25/18 01:00 75 20 135/58 (83) 94 Nasal Cannula 2.00 08/25/18 00:00 78 19 150/56 (87) 94 Nasal Cannula 2.00 08/25/18 00:00 Room Air 08/24/18 23:00 82 11 154/59 (90) 97 Nasal Cannula 2.00 08/24/18 23:00 98.8 08/24/18 22:00 83 25 164/62 (96) 95 Nasal Cannula 2.00 08/24/18 21:00 97 Room Air 08/24/18 21:00 90 14 158/63 (94) 97 Nasal Cannula 2.00 08/24/18 20:31 96 08/24/18 20:26 97 20 158/55 (89) 97 Room Air I & O 08/25/18 07:00 Intake Total 550 ml Output Total 400 ml Balance 150 ml Height & Weight Height: 5'0.00" Weight: 128lbs. 1.0oz. 58.068971fe; 24.6 BMI Method:Stated General Appearance: No Apparent Distress, WD/WN, Chronically ill, Other ( baseline confusion) HEENT: PERRL/EOMI, Normal ENT Inspection, Pharynx Normal Neck: Full Range of Motion, Normal Inspection, Non Tender, Supple, Carotid Bruit Respiratory: Chest Non Tender, Lungs Clear, Normal Breath Sounds, No Accessory Muscle Use, No Respiratory Distress Cardiovascular: Regular Rate, Rhythm, No Edema, No Gallop, No JVD, No Murmur, Normal Peripheral Pulses Capillary Refill: Less Than 3 Seconds Extremity: Normal Capillary Refill, Normal Inspection, Normal Range of Motion, Non Tender, No Calf Tenderness, No Pedal Edema Neurologic/Psychiatric: Alert, Oriented x3, No Motor/Sensory Deficits, Normal Mood/Affect Skin: Normal Color, Warm/Dry Lymphatic: No Adenopathy Results Lab Laboratory Tests 08/24/18 17:26 08/24/18 21:00 08/24/18 22:42 08/25/18 03:20 08/25/18 12:41 Assessment/Plan Assessment/Plan Hyperglycemia - Doubt DKA -repeat Chem, and UA -Currently on DKA protocol Metabolic lactic acidosis -IVF Dehydration -IVF Anemia - chronic Acute renal failure - improved. LACHO BROWER DO Aug 25, 2018 17:47
[2018-08-25 18:31] LABS: CALCIUM 9.2 MG/DL (8.5-10.1); CREATININE SERUM 1.1 MG/DL (0.60-1.30); POTASSIUM 4.7 MMOL/L (3.6-5.0)
[2018-08-25 18:45] LABS: BILIRUBIN,URINE NEGATIVE (NEGATIVE); CLARITY,URINE CLEAR; COLOR,URINE YELLOW; GLUCOSE, URINE (UA) NEGATIVE (NEGATIVE); KETONES,URINE NEGATIVE (NEGATIVE); LEUKOCYTE ESTERASE ,URINE NEGATIVE (NEGATIVE); NITRITE,URINE NEGATIVE (NEGATIVE); PH,URINE 5 (5-9); PROTEIN,URINE 3+ (NEGATIVE); UROBILINOGEN,URINE NORMAL (NORMAL)
[2018-08-25 18:52] LABS: BACTERIA,URINE TRACE /HPF
[2018-08-25] MEDS ORDERED: inSUlin ASPART (NovoLOG) 1 UNIT/0.01 ML (CHARGE PER UNIT) SC SCH (21:00)
[2018-08-25] MEDS ORDERED: NS IV 1000 ML 1,000 ML ONE (21:08)
[2018-08-25] MEDS: NS IV 1000 ML 1,000 ML IV SCH (21:11)
[2018-08-25] MEDS ORDERED: inSUlin ASPART (NovoLOG) 1 UNIT/0.01 ML (CHARGE PER UNIT) ONE (21:52)
[2018-08-26] VITALS (16 sets, daily range): BP systolic 155–194; BP diastolic 51–74
[2018-08-26 03:44] LABS: BASOPHILS % (AUTO) 0 % (0-10); EOSINOPHILS # (AUTO) 0.5 10^3/uL (0.0-0.3); EOSINOPHILS % (AUTO) 6 % (0-10); HEMATOCRIT 32 % (35-52); HEMOGLOBIN 10.4 G/DL (11.5-16.0); LYMPHOCYTES # (AUTO) 3.4 X 10^3 (1.0-4.0); LYMPHOCYTES % (AUTO) 37 % (12-44); MEAN CORPUSCULAR HEMOGLOBIN 30 PG (25-34); MEAN CORPUSCULAR HGB CONC 32 G/DL (32-36); MEAN CORPUSCULAR VOLUME 94 FL (80-99); MONOCYTES # (AUTO) 1.2 X 10^3 (0.0-1.0); MONOCYTES % (AUTO) 13 % (0-12); NEUTROPHILS # (AUTO) 3.9 X 10^3 (1.8-7.8); NEUTROPHILS % (AUTO) 43 % (42-75); PLATELET COUNT 366 10^3/uL (130-400); RED BLOOD COUNT 3.45 10^6/uL (4.35-5.85); RED CELL DISTRIBUTION WIDTH 13.9 % (10.0-14.5)
[2018-08-26 04:13] LABS: CALCIUM 9.5 MG/DL (8.5-10.1); CREATININE SERUM 1.02 MG/DL (0.60-1.30); MAGNESIUM 2.2 MG/DL (1.8-2.4); PHOSPHORUS 2.6 MG/DL (2.3-4.7); POTASSIUM 4.7 MMOL/L (3.6-5.0)
[2018-08-26] MEDS: POTASSIUM CL 10MEQ/50ML IVPB 50 ML IV SCH (04:15)
[2018-08-26] MEDS: MAGNESIUM 1 GM/100 ML IVPB 100 ML IV SCH ×2 (04:16→04:17)
[2018-08-26] MEDS: KCL 20 MEQ TAB (K-DUR) PO SCH ×2 (04:16→04:17)
[2018-08-26] MEDS: NS IV 1000 ML 1,000 ML IV SCH (04:19)
--- NOTE | 2018-08-26 06:55 | Pulmonary Progress Note ---
Sepsis Event Evaluation Height, Weight, BMI Height: 5'0.00" Weight: 129lbs. 1.0oz. 58.029670qo; 24.6 BMI Method:Stated Focused Exam Lactate Level 08/24/18 17:26: Lactic Acid Level 3.69*H 08/24/18 20:00: Lactic Acid Level 2.94*H Exam Exam Vital Signs Date Time Temp Pulse Resp B/P (MAP) Pulse Ox O2 Delivery O2 Flow Rate FiO2 08/26/18 06:00 79 18 92 Room Air 08/26/18 06:00 98.6 08/26/18 05:00 73 15 158/56 (90) 92 Room Air 08/26/18 05:00 98.9 08/26/18 04:00 79 16 169/67 (101) 96 Room Air 08/26/18 04:00 Room Air 08/26/18 03:30 66 15 161/61 (94) 92 Room Air 08/26/18 03:00 98.6 08/26/18 02:00 98.1 08/26/18 02:00 68 15 161/56 (91) 93 Room Air 08/26/18 01:00 70 08/26/18 01:00 70 20 155/60 (91) 94 Room Air 08/26/18 00:00 Room Air 08/26/18 00:00 69 19 168/65 (99) 94 Room Air 08/25/18 23:59 98.6 08/25/18 23:00 98.6 08/25/18 23:00 70 17 158/57 (90) 93 Room Air 08/25/18 22:41 98.8 08/25/18 22:00 98.8 08/25/18 22:00 81 13 171/68 (102) 94 Room Air 08/25/18 21:00 73 18 171/68 (102) 96 Room Air 08/25/18 20:00 73 18 164/56 (92) 96 Room Air 08/25/18 20:00 Room Air 08/25/18 19:00 74 08/25/18 19:00 100.0 08/25/18 19:00 74 23 169/56 (93) 95 Room Air 08/25/18 18:00 84 12 167/61 (96) 95 Room Air 08/25/18 17:00 82 25 164/57 (92) 96 Room Air 08/25/18 16:00 Room Air 08/25/18 16:00 78 11 166/50 (88) 94 Room Air 08/25/18 15:00 77 23 164/63 (96) 96 Room Air 08/25/18 14:00 72 16 144/62 (89) 95 Room Air 08/25/18 13:00 75 08/25/18 13:00 75 16 159/60 (93) 97 Room Air 08/25/18 12:00 98.2 71 13 153/48 (83) 94 Room Air 08/25/18 12:00 Room Air 08/25/18 11:00 71 16 160/58 (92) 93 Room Air 08/25/18 10:00 75 22 125/62 (83) 96 Room Air 08/25/18 09:00 76 14 150/66 (94) 97 Room Air 08/25/18 08:10 97.6 71 16 147/53 (84) 96 Room Air 08/25/18 08:00 74 18 147/53 (84) 96 Nasal Cannula 2.00 08/25/18 08:00 Room Air 08/25/18 07:00 66 16 134/52 (79) 93 Nasal Cannula 2.00 08/25/18 07:00 70 I & O 08/26/18 07:00 Intake Total 3080 ml Output Total 3350 ml Balance -270 ml Height & Weight Height: 5'0.00" Weight: 129lbs. 1.0oz. 58.815626wq; 24.6 BMI Method:Stated General Appearance: No Apparent Distress, WD/WN, Chronically ill, Other ( baseline confusion) HEENT: PERRL/EOMI, Normal ENT Inspection, Pharynx Normal Neck: Full Range of Motion, Normal Inspection, Non Tender, Supple, Carotid Bruit Respiratory: Chest Non Tender, Lungs Clear, Normal Breath Sounds, No Accessory Muscle Use, No Respiratory Distress Cardiovascular: Regular Rate, Rhythm, No Edema, No Gallop, No JVD, No Murmur, Normal Peripheral Pulses Capillary Refill: Less Than 3 Seconds Extremity: Normal Capillary Refill, Normal Inspection, Normal Range of Motion, Non Tender, No Calf Tenderness, No Pedal Edema Neurologic/Psychiatric: Alert, Oriented x3, No Motor/Sensory Deficits, Normal Mood/Affect Skin: Normal Color, Warm/Dry Lymphatic: No Adenopathy Results Lab Laboratory Tests 08/24/18 17:26 08/24/18 21:00 08/24/18 22:42 08/25/18 03:20 08/25/18 12:41 08/25/18 18:05 08/26/18 03:05 Assessment/Plan Assessment/Plan Hyperglycemia - Doubt DKA -d/c'd DKA protocol Metabolic lactic acidosis -IVF Dehydration -IVF Anemia - chronic Acute renal failure - improved. LACHO BROWER DO Aug 26, 2018 06:54
[2018-08-26] MEDS ORDERED: UBID50TA3 PO (10:53)
[2018-08-26] MEDS ORDERED: DRON400T2 PO (10:54)
--- NOTE | 2018-08-26 11:36 | Progress Note-Hospitalist ---
Subjective HPI/CC On Admission Date Seen by Provider: Aug 26, 2018 Time Seen by Provider: 10:30 CC: DKA and ARF HPI: This is an 88yoWF clinic patient of Dr Sow who lives at home with her and has HH who was just DC yesterday afternoon who presented to the ER with complaints of confusion and fever. W/U revealed extremely high sugar, elevated lactic acid and low bicarb and increased anion gap and rest of sepsis w /u negative. She was placed on DKA protocol and received IVF overnight and feels better today. She has been increasingly confused at home and having difficulty setting up her meds accurately and she appears to be in need of NH placement or AL due to memory loss as reported by the daughters at the bedside. Bicarb has increased from 15 to 17 while on insulin drip. 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 Subjective/Events-last exam Patient off insulin drip Checked UA no evidence of UTI and patient was actually discharged on Levaquin so we'll stop that before its restarted Blood pressure elevated and restarted home meds Overall feels much better Eating and drinking No bowel movement but declines stool softer at this current time Denies any pain Checked meds and labs Family the bedside very pleased with her recovery Will transfer to the floor Review of Systems General: Fatigue Focused Exam Lactate Level 08/24/18 17:26: Lactic Acid Level 3.69*H 08/24/18 20:00: Lactic Acid Level 2.94*H Objective Exam Vital Signs Vital Signs Date Time Temp Pulse Resp B/P (MAP) Pulse Ox O2 Delivery O2 Flow Rate FiO2 08/26/18 11:00 79 22 176/74 (108) 97 Room Air 08/26/18 06:00 98.6 08/25/18 08:00 2.00 Capillary Refill : Less Than 3 Seconds General Appearance: No Apparent Distress, WD/WN, Chronically ill HEENT: Other (KAKE) Respiratory: Chest Non Tender, Lungs Clear, Normal Breath Sounds, No Accessory Muscle Use, No Respiratory Distress Cardiovascular: Regular Rate, Rhythm, No Edema, No Gallop, No JVD, No Murmur, Normal Peripheral Pulses Neurologic/Psychiatric: Alert, Oriented x3, No Motor/Sensory Deficits, Normal Mood/Affect Results/Procedures Lab Laboratory Tests 08/25/18 12:41 08/25/18 18:05 08/26/18 03:05 Patient resulted labs reviewed. Assessment/Plan Assessment and Plan Assess & Plan/Chief Complaint Assessment: DKA in labile diabetic managed by Endo Dr Mendoza now resolved and off insulin drip Medication errors at home may need NH placement since HH already in place and failed Severe KAKE making communication difficult ARF HTN CAD TX hx Advanced age AF hx on anticoagulation Plan: Tx to 4th floor Home meds Insulin SQ Diagnosis/Problems Diagnosis/Problems (1) DKA (diabetic ketoacidoses) Status: Resolved Qualifiers: Diabetes mellitus type: type 2 Diabetes mellitus complication detail: without coma Qualified Codes: E11.10 - Type 2 diabetes mellitus with ketoacidosis without coma Resolution Date/Time: 08/26/18 @ 11:35 (2) Renal insufficiency Status: Chronic (3) Anemia Status: Chronic Qualifiers: Anemia type: unspecified type Qualified Codes: D64.9 - Anemia, unspecified (4) Lactic acidemia Status: Resolved Resolution Date/Time: 08/26/18 @ 11:35 (5) Advanced age Status: Chronic (6) Hypertension Status: Chronic Qualifiers: Hypertension type: essential hypertension Qualified Codes: I10 - Essential (primary) hypertension (7) Atrial fibrillation Status: Chronic Qualifiers: Atrial fibrillation type: paroxysmal Qualified Codes: I48.0 - Paroxysmal atrial fibrillation (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
[2018-08-26] MEDS ORDERED: KCL 10 MEQ TAB (MICRO K) PO PRN (11:45)
[2018-08-26] MEDS ORDERED: FUROSEMIDE 20 MG (LASIX) TAB PO PRN (11:45)
[2018-08-26] MEDS ORDERED: APIXABAN 2.5 MG (ELIQUIS) TABLET ONE (11:57)
[2018-08-26] MEDS ORDERED: amLODIPine 10 MG (NORVASC) TAB ONE (11:57)
[2018-08-26] MEDS ORDERED: ASPIRIN E.C. 81 MG (ECOTRIN) TAB PO ONE (11:57)
[2018-08-26] MEDS ORDERED: meTOproloL SUCCINATE 50 MG (TOPROL XL) TAB PO ONE (11:57)
[2018-08-26] MEDS ORDERED: LOSARTAN 100 MG (COZAAR) TABLET ONE (11:57)
[2018-08-26] MEDS: meTOproloL SUCCINATE 50 MG (TOPROL XL) TAB PO SCH (12:02)
[2018-08-26] MEDS: LOSARTAN 100 MG (COZAAR) TABLET PO SCH (12:03)
[2018-08-26] MEDS: ASPIRIN E.C. 81 MG (ECOTRIN) TAB PO SCH (12:03)
[2018-08-26] MEDS: amLODIPine 10 MG (NORVASC) TAB PO SCH ×2 (12:03→21:15)
[2018-08-26] MEDS: APIXABAN 2.5 MG (ELIQUIS) TABLET PO SCH ×2 (12:05→21:15)
[2018-08-26] MEDS ORDERED: inSUlin ASPART (NovoLOG) 1 UNIT/0.01 ML (CHARGE PER UNIT) ONE (12:18)
[2018-08-26] MEDS: inSUlin ASPART (NovoLOG) 1 UNIT/0.01 ML (CHARGE PER UNIT) SC SCH ×3 (12:23→21:15)
[2018-08-26] MEDS: LACTOBACILLUS ACIDOPHILUS (PROBIOTIC) CAPSULE PO SCH ×2 (12:23→21:15)
--- NOTE | 2018-08-26 14:02 | Diagnostic Imaging Report ---
INDICATION: Diabetic ketoacidosis. COMPARISON: Comparison made with prior examination from 08/24/2018. FINDINGS: There is cardiomegaly. There is some venous congestion. There are patchy bibasilar infiltrates. There is no pneumothorax. Mediastinum is unremarkable. IMPRESSION: 1. Patchy bibasilar infiltrates. 2. Cardiomegaly and mild central pulmonary venous congestion. Dictated by: Dictated on workstation # [id number]
[2018-08-26] MEDS: COQ10 PO SCH (14:24)
[2018-08-26] MEDS ORDERED: FLU QUADRIvalent (5+ YOA) 2018-2019 (AFLURIA) 0.5 ML IM ONE (20:29)
[2018-08-26] MEDS: ACETAMINOPHEN 500 MG TAB (TYLENOL) PO PRN (21:14)
[2018-08-26] MEDS: inSUlin DETERMIR 1 UNIT/0.01 ML (LEVEMIR) CHARGE PER UNIT SQ SCH (21:15)
[2018-08-26] MEDS: DRONEDARONE TABLET 400 MG TABLET PO SCH (21:16)
[2018-08-27] VITALS: BP 152/72
[2018-08-27 04:00] VITALS: BP 146/67
[2018-08-27 05:52] LABS: BASOPHILS % (AUTO) 0 % (0-10); EOSINOPHILS # (AUTO) 0.7 10^3/uL (0.0-0.3); EOSINOPHILS % (AUTO) 9 % (0-10); HEMATOCRIT 35 % (35-52); HEMOGLOBIN 11.3 G/DL (11.5-16.0); LYMPHOCYTES # (AUTO) 3.7 X 10^3 (1.0-4.0); LYMPHOCYTES % (AUTO) 46 % (12-44); MEAN CORPUSCULAR HEMOGLOBIN 30 PG (25-34); MEAN CORPUSCULAR HGB CONC 32 G/DL (32-36); MEAN CORPUSCULAR VOLUME 93 FL (80-99); MEAN PLATELET VOLUME 10.5 FL (7.4-10.4); MONOCYTES # (AUTO) 1.2 X 10^3 (0.0-1.0); MONOCYTES % (AUTO) 14 % (0-12); NEUTROPHILS # (AUTO) 2.5 X 10^3 (1.8-7.8); NEUTROPHILS % (AUTO) 31 % (42-75); PLATELET COUNT 420 10^3/uL (130-400); RED BLOOD COUNT 3.75 10^6/uL (4.35-5.85); WHITE BLOOD COUNT 8.1 10^3/uL (4.3-11.0)
[2018-08-27 06:13] LABS: ALBUMIN 3.2 GM/DL (3.2-4.5); BILIRUBIN,TOTAL 0.3 MG/DL (0.1-1.0); CALCIUM 9.8 MG/DL (8.5-10.1); CREATININE SERUM 1.14 MG/DL (0.60-1.30); POTASSIUM 4.4 MMOL/L (3.6-5.0); TOTAL PROTEIN 6.1 GM/DL (6.4-8.2)
[2018-08-27 08:00] VITALS: BP 182/72
[2018-08-27] MEDS: APIXABAN 2.5 MG (ELIQUIS) TABLET PO SCH ×2 (09:32→21:29)
[2018-08-27] MEDS: meTOproloL SUCCINATE 50 MG (TOPROL XL) TAB PO SCH (09:32)
[2018-08-27] MEDS: LOSARTAN 100 MG (COZAAR) TABLET PO SCH (09:32)
[2018-08-27] MEDS: ASPIRIN E.C. 81 MG (ECOTRIN) TAB PO SCH (09:32)
[2018-08-27] MEDS: LACTOBACILLUS ACIDOPHILUS (PROBIOTIC) CAPSULE PO SCH ×3 (09:32→21:29)
[2018-08-27] MEDS: COQ10 PO SCH (09:33)
--- NOTE | 2018-08-27 09:35 | Progress Note ---
Focused Exam Lactate Level 08/24/18 17:26: Lactic Acid Level 3.69*H 08/24/18 20:00: Lactic Acid Level 2.94*H Objective Exam Last Set of Vital Signs Vital Signs Date Time Temp Pulse Resp B/P (MAP) Pulse Ox O2 Delivery O2 Flow Rate FiO2 08/27/18 04:00 99.1 55 16 146/67 (93) 95 Room Air 08/25/18 08:00 2.00 Capillary Refill : Less Than 3 Seconds I&O Intake and Output 08/27/18 00:00 Intake Total 1890 ml Output Total 1300 ml Balance 590 ml Intake Oral 890 ml IV Total 1000 ml Output Urine Total 1300 ml # Voids 5 # Bowel Movements 2 Results Lab Laboratory Tests 08/26/18 12:15: Glucometer 262H 08/26/18 15:34: Glucometer 174H 08/26/18 20:37: Glucometer 241H 08/26/18 22:58: Glucometer 176H 08/26/18 23:42: Glucometer 138H 08/27/18 02:05: Glucometer 50*L 08/27/18 02:30: Glucometer 97 08/27/18 05:08: Glucometer 81 08/27/18 05:30: White Blood Count 8.1, Red Blood Count 3.75L, Hemoglobin 11.3L, Hematocrit 35, Mean Corpuscular Volume 93, Mean Corpuscular Hemoglobin 30, Mean Corpuscular Hemoglobin Concent 32, Red Cell Distribution Width 14.0, Platelet Count 420H, Mean Platelet Volume 10.5H, Neutrophils (%) (Auto) 31L, Lymphocytes (%) (Auto) 46H, Monocytes (%) (Auto) 14H, Eosinophils (%) (Auto) 9, Basophils (%) (Auto) 0 , Neutrophils # (Auto) 2.5, Lymphocytes # (Auto) 3.7, Monocytes # (Auto) 1.2H, Eosinophils # (Auto) 0.7H, Basophils # (Auto) 0.0, Sodium Level 139, Potassium Level 4.4, Chloride Level 113H, Carbon Dioxide Level 19L, Anion Gap 7, Blood Urea Nitrogen 22H, Creatinine 1.14, Estimat Glomerular Filtration Rate 45, BUN/ Creatinine Ratio 19, Glucose Level 70, Calcium Level 9.8, Corrected Calcium 10.4H, Total Bilirubin 0.3, Aspartate Amino Transf (AST/SGOT) 27, Alanine Aminotransferase (ALT/SGPT) 61H, Alkaline Phosphatase 104, Total Protein 6.1L, Albumin 3.2 08/27/18 06:35: Glucometer 53*L Microbiology 08/24/18 Blood Culture - Preliminary, Resulted No growth 08/24/18 Influenza Types A,B Antigen (ANUSHA) - Final, Complete 08/25/18 Urine Culture - Final, Complete See Report Assessment/Plan Assessment/Plan Assess & Plan/Chief Complaint ATRIAL FIBRILLATION DIABETES MELLITUS HYPERTENSION HARD OF HEARING MEDICATION/DIET NONCOMPLIANCE WEAKNESS Clinical Quality Measures DVT/VTE Risk/Contraindication: Risk Factor Score Per Nursin RFS Level Per Nursing on Admit: 2=Moderate JONN YAO MD Aug 27, 2018 09:35
[2018-08-27] MEDS: DRONEDARONE TABLET 400 MG TABLET PO SCH ×2 (09:57→21:29)
[2018-08-27 12:00] VITALS: BP 182/73
[2018-08-27] MEDS: inSUlin ASPART (NovoLOG) 1 UNIT/0.01 ML (CHARGE PER UNIT) SC SCH ×3 (12:29→21:22)
[2018-08-27 16:30] VITALS: BP 159/70
[2018-08-27 20:20] VITALS: BP 150/68
[2018-08-27] MEDS: inSUlin DETERMIR 1 UNIT/0.01 ML (LEVEMIR) CHARGE PER UNIT SQ SCH (21:29)
[2018-08-27] MEDS: amLODIPine 10 MG (NORVASC) TAB PO SCH (21:29)
[2018-08-28] VITALS: BP 131/61
[2018-08-28 04:00] VITALS: BP 129/57
[2018-08-28] MEDS: inSUlin ASPART (NovoLOG) 1 UNIT/0.01 ML (CHARGE PER UNIT) SC SCH ×2 (05:14→11:20)
[2018-08-28 08:00] VITALS: BP 129/63
[2018-08-28] MEDS: LOSARTAN 100 MG (COZAAR) TABLET PO SCH (08:40)
[2018-08-28] MEDS: ASPIRIN E.C. 81 MG (ECOTRIN) TAB PO SCH (08:40)
[2018-08-28] MEDS: LACTOBACILLUS ACIDOPHILUS (PROBIOTIC) CAPSULE PO SCH ×2 (08:40→13:28)
[2018-08-28] MEDS: APIXABAN 2.5 MG (ELIQUIS) TABLET PO SCH (08:40)
[2018-08-28] MEDS: meTOproloL SUCCINATE 50 MG (TOPROL XL) TAB PO SCH (08:40)
[2018-08-28] MEDS: DRONEDARONE TABLET 400 MG TABLET PO SCH (08:40)
[2018-08-28] MEDS: COQ10 PO SCH (08:41)
--- NOTE | 2018-08-28 09:28 | Diagnostic Imaging Report ---
INDICATION: Bibasilar infiltrate. TECHNIQUE: Two view chest 9:16 AM CORRELATION STUDY: 08/26/2018 FINDINGS: Cardiac enlargement with presence of coronary artery stents and/or calcification. Loop recorder device over the anterior chest. Vasculature is slightly increased from prior study. Chronic-appearing change of the lung parenchyma. Superimposed areas of atelectasis and or edema suggested about the lung bases. Trace pleural effusion, slight blunting of the costophrenic angles. Multiple surgical clips in the upper abdomen. Fullness in the region likely tortuous ectatic vessels generally stable. IMPRESSION: 1. Cardiac enlargement. Vascular appears slightly increased from prior study. Dictated by: Dictated on workstation # [id number]
[2018-08-28] MEDS ORDERED: INSU100I14 SC (10:18)
--- NOTE | 2018-08-28 10:22 | Discharge Inst-Skilled Nursing ---
Discharge Inst-Skilled NF Patient Instructions Patient Problems: ATRIAL FIBRILLATION DIABETES MELLITUS HYPERTENSION HARD OF HEARING MEDICATION/DIET NONCOMPLIANCE WEAKNESS Goal: ASSISTED LIVING ON DISCHARGE Consult/Follow Up/Orders Follow Up Appt.: [address] Skilled NF Admit to: [facility] Certification (SNF) I certify that SNF services are required to be given on an inpatient basis because of the above named patient's need for fci care on a continuing basis for the conditions(s) for which he/she was receiving inpatient hospital services prior to his/her transfer to the SNF. Senior Living Facility Order: Nursing Services, Case Finisher-Evaluate & Treat, Physical Therapy-Evaluate & Treat Discharge Diet: ADA Diet Daily Activity as Tolerated: Yes New & Resume Previous Orders New & Resume Previous Orders FSBS AC HS - USE SLIDING SCALE Jonn Sow Aug 28, 2018 10:20 JONN SOW MD Aug 28, 2018 10:22
--- NOTE | 2018-08-28 10:24 | Discharge Summary ---
Diagnosis/Chief Complaint Date of Admission Aug 24, 2018 at 19:03 Date of Discharge Discharge Date: Aug 28, 2018 Discharge Time: 1130 Admission Diagnosis Admission Diagnosis ATRIAL FIBRILLATION DIABETES MELLITUS HYPERTENSION HARD OF HEARING MEDICATION/DIET NONCOMPLIANCE WEAKNESS Discharge Summary Discharge Physical Examination Allergies: Coded Allergies: No Known Drug Allergies (Unverified , 03/17/18) Vitals & I&Os Vital Signs Date Time Temp Pulse Resp B/P (MAP) Pulse Ox O2 Delivery O2 Flow Rate FiO2 08/28/18 09:41 Room Air 08/28/18 08:00 99.3 56 20 129/63 (85) 95 08/25/18 08:00 2.00 Hospital Course Pending Labs Laboratory Tests 08/28/18 05:13: Glucometer 103 Discharge Instructions to patient/family Please see electronic discharge instructions given to patient. Discharge Medications Reviewed and agree with Discharge Medication list on patient's Discharge Instruction sheet Clinical Quality Measures DVT/VTE Risk/Contraindication: Risk Factor Score Per Nursin RFS Level Per Nursing on Admit: 2=Moderate JONN YAO MD Aug 28, 2018 10:24
[2018-08-28 12:00] VITALS: BP 128/59
[2018-08-28 15:05] VITALS: BP 128/59
[2018-08-28] MEDS ORDERED: inSUlin DETERMIR 1 UNIT/0.01 ML (LEVEMIR) CHARGE PER UNIT SQ SCH (21:00)
--- NOTE | 2018-08-31 10:55 | Physician Query Clarification ---
PQ-Conflicting Diagnosis Admission/Discharge Admission Date: Aug 24, 2018 at 19:03 Discharge Date: Aug 28, 2018 at 15:05 The medical record reflects the following clinical scenario: History/Risk Factors: Diabetes type 2, HTN, CKD, proxysmal atrial fibrillation Clinical Findings: negative ketones in urine, Glucose 593, lactic acid 3.69, low bicarb, anion gap 15 Treatment: IV fluids, DKA protocol Question: Do you agree with the impression of the hyperglycemia doubt DKA per Dr. Guido. Please document a response below. HYPERGLYCEMIA PHYSICIAN RESPONSE Do you agree w/Consulting Dx?: Yes In responding to this query, please exercise your independent professional judgment. The purpose of this communication is to more accurately reflect the complexity of your patients condition. The fact that a question is asked does not imply that any particular answer is desired or expected. Thank you for your timely response to this clarification. Requestors name: Eric THIS PHYSICIAN QUERY FORM IS A PERMANENT PART OF THE MEDICAL RECORD ERIC TERRY Aug 31, 2018 10:55 JONN YAO MD Aug 31, 2018 16:52
== END 2018-08-28 15:05 | DRG 638 ==
LOC: EDUNIT# 17:14 → ER 17:15 → ICU 19:03 → 4TH 08-26 14:19
PROVIDERS: ADMIT Internal Medicine; ATTEND Family Medicine
DX: E11.65 Type 2 diabetes mellitus with hyperglycemia (principal); E87.2 Acidosis; N17.9 Acute kidney failure, unspecified; I12.9 Hypertensive chronic kidney disease with stage 1 through stage 4 chronic kidney disease, or unspecified chronic kidney disease; N18.9 Chronic kidney disease, unspecified; E86.0 Dehydration; E11.51 Type 2 diabetes mellitus with diabetic peripheral angiopathy without gangrene; Z66 Do not resuscitate; I25.10 Atherosclerotic heart disease of native coronary artery without angina pectoris; I25.2 Old myocardial infarction; D64.9 Anemia, unspecified; R41.3 Other amnesia; M19.91 Primary osteoarthritis, unspecified site; Z95.5 Presence of coronary angioplasty implant and graft; Z79.4 Long term (current) use of insulin; Z79.01 Long term (current) use of anticoagulants; Z97.4 Presence of external hearing-aid; Z86.73 Personal history of transient ischemic attack (TIA), and cerebral infarction without residual deficits; I48.0 Paroxysmal atrial fibrillation; H91.13 Presbycusis, bilateral; Z91.11 Patient's noncompliance with dietary regimen; Z91.14 Patient's other noncompliance with medication regimen
CPT/HCPCS: 36415; 36600; 71045; 71046; 80048; 80053; 81000; 82150; 82805; 82962; 83036; 83605; 83690; 83735; 84100; 85025; 85027; 85610; 85730; 87040; 87088; 87804; 96374

== ENCOUNTER 2018-12-26 06:49 | Emergency (ER) | payer MEDICARE, OTHER ==
[~2018-12-26] VITALS: Ht 152.4 cm; Wt 57.2 kg
[~2018-12-26 06:49] MED LIST changes: -AMLO10TA6 PO; +AMLO10TA7 PO; -AMLO2.5T3 PO; +AMLO2.5T4 PO; -AMLO5TAB7 PO; +AMLO5TAB9 PO; +LOSA100T57 PO; -LOSA100T8 PO; +LOSA25TA41 PO; -LOSA25TA6 PO; +LOSA50TA63 PO; -LOSA50TA7 PO; +UBID50TA3 PO
[2018-12-26] MEDS ORDERED: ASPIRIN 81 MG CHEW (CHILDREN'S ASA) PO ONE (07:00)
--- OUTSIDE RECORDS SUMMARY | 2018-12-26 07:07 | XMS REPORT | CCD ---
Author Author [facility] Organization [facility] Address [address] [place] [address] Phone Care Team Providers Care Cigar Maker Name Role Phone PP Unavailable CCM Unavailable Summary Purpose Interface Exchange Insurance Providers Payer name Policy type / Coverage type Covered democrat ID Effective Begin Date Effective End Date WPS Medicare Part B Medicare Part B [id number] Unknown Unknown [employer] Medicare Part B [id number] Unknown Unknown Family history Mother Diagnosis Age [...] Unknown 2 05/04/[address]: 978220507 Never smoker 05/04/2015 Alcohol history Unknown occasionally [...] : 782.3 ICD-10: R60.0 Active 06/21/2018 Unknown Type 2 diabetes mellitus with hyperglycemia ICD-9: 250.02 ICD-10: E11.65 Active 12/21/2017 Unknown Essential (primary) hypertension ICD-9: 401.9 ICD-10: I10 Active 08/31/2016 Unknown Cough ICD-9: 786.2 ICD-10: R05 Active 09/25/2018 Unknown Other acute sinusitis ICD-9: 461.8 ICD-10: J01.80 Active 09/25/2018 Unknown Other allergic rhinitis ICD-9: 477.8 ICD-10: J30.89 Active 09/25/2018 Unknown Myalgia, other site ICD-9: 729.1 ICD-10: M79.18 Active 08/17/2018 Unknown Type 2 diabetes mellitus without complications ICD-9: 250.00 ICD-10: E11.9 Active 05/03/2015 Unknown Muscle weakness (generalized) ICD-9: 728.87 ICD-10: M62.81 Active 12/21/2017 Unknown Unsteadiness on feet ICD-9: 781.2 ICD-10: R26.81 Active 06/15/2017 Unknown Weakness ICD-9: 780.79 ICD-10: R53.1 Active 08/30/2017 Unknown Intervertebral disc disorders with radiculopathy, lumbar [...] ICD-9: 272.2 ICD-10: E78.2 Active 05/11/2017 Unknown Dyspnea, unspecified ICD-9: 786.09 ICD-10: R06.00 [...] ICD-9 : 782.3 ICD-10: R60.0 06/21/2018 Active Type 2 diabetes mellitus with hyperglycemia ICD-9: 250.02 ICD-10: E11.65 12/21/2017 Active Essential (primary) hypertension ICD-9: 401.9 ICD-10: I10 08/31/2016 Active Cough ICD-9: 786.2 ICD-10: R05 09/25/2018 Active Other acute sinusitis ICD-9: 461.8 ICD-10: J01.80 09/25/2018 Active Other allergic rhinitis ICD-9: 477.8 ICD-10: J30.89 09/25/2018 Active Myalgia, other site ICD-9: 729.1 ICD-10: M79.18 08/17/2018 Active Type 2 diabetes mellitus without complications ICD-9: 250.00 ICD-10: E11.9 05/03/2015 Active Muscle weakness (generalized) ICD-9: 728.87 ICD-10: M62.81 12/21/2017 Active Unsteadiness on feet ICD-9: 781.2 ICD-10: R26.81 06/15/2017 Active Weakness ICD-9: 780.79 ICD-10: R53.1 08/30/2017 Active Intervertebral disc disorders with radiculopathy, lumbar [...] hyperlipidemia ICD-9: 272.2 ICD-10: E78.2 05/11/2017 Active Dyspnea, unspecified ICD-9: 786.09 ICD-10: R06.00 [...] Start Date Stop Date Status Fill Instructions Lasix 20 mg tablet RxNorm: 041649 1 Tablet(s) PO daily as needed edema 11/29/2018 01/27/2019 Active Novolog U-100 Insulin aspart 100 unit/mL subcutaneous solution RxNorm: 220541 see pharm instruction note Unit(s) SQ AC & HS as needed 10/08 No Stop Date Active if BS <80 eat 15 gram carbs and repeat BS in 15 min.BS 90-120 and eating given 2 unitsBS 121-150 5 unitsBS 151-200 8 unitsBS 201-250 11 unitsBS 251-300 14 unitsBS > 300 17 units and call provider Kenalog 40 mg/mL suspension for injection RxNorm: 6224250 1 Milliliter(s) Inj 09/25/2018 09/25/2018 Inactive Augmentin 500 mg-125 mg tablet RxNorm: 207927 1 Tablet(s) PO TID 09/25/2018 10/04/2018 Inactive Toujeo SoloStar U-300 Insulin 300 unit/mL (1.5 mL) subcutaneous pen RxNorm: 9378172 20 Unit(s) SQ QHS MANAGED BY DR. JOHNSON 2017 No Stop Date Active Voltaren 1 % topical gel RxNorm: 952843 APPLY THIN LAYER TOPICALLY TO AFFECTED AREA 4 TIMES DAILY 08/24/2018 No Stop Date Active Levaquin 250 mg tablet RxNorm: 171721 2 tabs on 1st day then 1 tab day 2-7 Tablet( s) PO daily 08/20/2018 09/03/2018 Inactive dc keflex Levaquin 250 mg tablet RxNorm: 388400 2 tabs on 1st day then 1 tab day 2-7 Tablet( s) PO daily 08/20/2018 08/19/2018 Inactive dc keflex Keflex 500 mg capsule RxNorm: 539561 1 Capsule(s) PO TID 201708/19/2018 Inactive Tourutho SoloStar U-300 Insulin 300 unit/mL (1.5 mL) subcutaneous pen RxNorm: 0509966 25 Unit(s) SQ QHS MANAGED BY DR. JOHNSON 201709/03/2018 Inactive Norvasc 10 mg tablet RxNorm: 640581 1 Tablet(s) PO daily 201701/25/2019 Active update RX Eliquis 2.5 mg tablet RxNorm: 8488427 Tablet(s) PO TAKE ONE TABLET BY MOUTH TWICE DAILY 06/21/2018 06/15/2019 Active cyclobenzaprine 5 mg tablet RxNorm: 900846 1/2 Tablet(s) PO BID as needed muscle spasms/back pain 05/02/2018 05/31/2018 Inactive tramadol 50 mg tablet RxNorm: 942080 1 Tablet(s) PO TID as needed for pain 04/27/2018 05/01/2018 Inactive Voltaren 1 % topical gel RxNorm: 464693 1 Application TOP QID 04/27/2018 08/23/2018 Inactive acyclovir 400 mg tablet RxNorm: 945319 2 Tablet(s) PO QID 04/2006/20/2018 Inactive mupirocin 2 % topical ointment RxNorm: 623302 1 Application TOP BID 04/20/2018 04/29/2018 Inactive right cheek/nose gentamicin 0.3 % eye drops RxNorm: 983806 2 Drop(s) ophthalmic (eye) left eye Q8 04/16/2018 09/03/2018 Inactive prednisone 20 mg tablet RxNorm: 073626 2 Tablet(s) PO daily 04/12/2018 Inactive prednisone 20 mg tablet RxNorm: 990336 2 Tablet(s) PO daily 04/17/2018 Inactive Kenalog 40 mg/mL suspension for injection RxNorm: 6494925 1 Milliliter(s) Inj 04/12/2018 04/12/2018 Inactive losartan 100 mg tablet RxNorm: 888476 1 Tablet(s) PO QAM 201712/28/2018 Active update RX -dose should be 100mg Norvasc 5 mg tablet RxNorm: 817132 1 Tablet(s) PO daily 201707/29/2018 Inactive update RX losartan 50 mg tablet RxNorm: 937404 TAKE ONE TABLET BY MOUTH ONCE DAILY IN THE MORNING 03/26/2018 04/02/2018 Inactive Humalog U-100 Insulin 100 unit/mL subcutaneous solution RxNorm: 272811 15 Unit(s) SQ AC MANAGED BY DR. JOHNSON 03/13/2018 No Stop Date Active 201- 200 17 units, greater than 300 21 units Toujeo SoloStar U-300 Insulin 300 unit/mL (1.5 mL) subcutaneous pen RxNorm: 5828666 20 Unit(s) SQ QHS MANAGED BY DR. JOHNSON 201707/10/2018 Inactive losartan 100 mg tablet RxNorm: 392380 1 Tablet(s) PO QAM 201704/02/2018 Inactive pantoprazole 40 mg tablet,delayed release RxNorm: 091840 1 Tablet(s) PO daily 01/11/2018 07/19/2018 Inactive carvedilol 12.5 mg tablet RxNorm: 784315 1 Tablet(s) PO BID 07/19/2018 Inactive Toujeo SoloStar U-300 Insulin 300 unit/mL (1.5 mL) subcutaneous pen RxNorm: 0993885 15 Unit(s) SQ QHS MANAGED BY DR. JOHNSON 201703/12/2018 Inactive Multaq 400 mg tablet RxNorm: 277635 1 Tablet(s) PO BID 201712/14/2018 Active potassium chloride ER 10 mEq tablet,extended release RxNorm: 925026 1 Tablet(s) PO daily while on the Lasix 10/18/201701/2018 Inactive losartan 50 mg tablet RxNorm: 164259 1 Tablet(s) PO QAM 201601/17/2018 Inactive Lasix 20 mg tablet RxNorm: 847939 1 Tablet(s) PO daily 201610/03/2017 Inactive potassium chloride ER 10 mEq tablet,extended release RxNorm: 465515 1 Tablet(s) PO daily while on the Lasix 08/30/2017 Inactive Toujeo SoloStar 300 unit/mL (1.5 mL) subcutaneous insulin pen RxNorm: 0724303 35 Unit(s) SQ QHS MANAGED BY DR. JOHNSON 06/15/2017 10/12/2017 Inactive Eliquis 5 mg tablet RxNorm: 1932539 TAKE ONE TABLET BY MOUTH TWICE DAILY 03/01/2017 02/23/2018 Inactive Januvia 100 mg tablet RxNorm: 767239 1/2 Tablet(s) PO daily 07/19/2018 Inactive losartan 50 mg tablet RxNorm: 924650 1 Tablet(s) PO BID 201509/13/2017 Inactive amlodipine 10 mg tablet RxNorm: 422324 1 Tablet(s) PO daily 06/14/2017 Inactive generic for NORVASC losartan 50 mg tablet RxNorm: 925913 1 Tablet(s) PO daily 201508/31/2016 Inactive Toujeo SoloStar 300 unit/mL (1.5 mL) subcutaneous insulin pen RxNorm: 4460057 40 Unit(s) SQ QHS MANAGED BY DR. JOHNSON 07/01/2016 06/14/2017 Inactive Toujeo SoloStar 300 unit/mL (1.5 mL) subcutaneous insulin pen RxNorm: 2942921 35 Unit(s) SQ QHS MANAGED BY DR. JOHNSON 06/02/2016 06/30/2016 Inactive Humalog 100 unit/mL subcutaneous solution RxNorm: 710181 15 Unit(s) SQ AC MANAGED BY DR. JOHNSON 06/02/2016 03/12/2018 Inactive carvedilol 3.125 mg tablet RxNorm: 183401 1 Tablet(s) PO BID 04/23/2016 Inactive simvastatin 40 mg tablet RxNorm: 943288 1 Tablet(s) PO QHS 07/19/2018 Inactive Humalog 100 unit/mL subcutaneous solution RxNorm: 070274 13 Unit(s) SQ AC MANAGED BY DR. JOHNSON 01/26/2016 06/01/2016 Inactive Eliquis 5 mg tablet RxNorm: 9684933 1 Tablet(s) PO BID 201501/13/2017 Inactive carvedilol 6.25 mg tablet RxNorm: 958260 1 Tablet(s) PO BID 2016 Inactive Humalog 100 unit/mL subcutaneous solution RxNorm: 932543 Unit(s) SQ UD as directed by office 08/07/2015 01/25/2016 Inactive Klor-Con 10 mEq tablet,extended release RxNorm: 370702 1 Tablet(s) PO daily as needed 06/26/2015 10/23/2015 Inactive Lasix 20 mg tablet RxNorm: 062438 1 Tablet(s) PO daily as needed 06/26/2015 10/23/2015 Inactive metoprolol succinate ER 50 mg tablet,extended release 24 hr RxNorm: 528674 1 Tablet(s) PO daily No Start Date Active melatonin 3 mg tablet RxNorm: 800469 1 Tablet(s) PO QHS as needed insomnia No Start Date Active aspirin 81 mg capsule,delayed release RxNorm: 062491 1 Capsule(s) PO daily No Start Date Active Co Q-10 50 mg capsule RxNorm: 265415 1 Capsule(s) PO daily No Start Date Active Culturelle [employer] 10 billion cell-200 mg capsule RxNorm: 1 Capsule(s) PO TID No Start Date Active losartan 25 mg tablet RxNorm: 431767 1 Tablet(s) PO daily No Start Date 08/31/2016 Inactive losartan 100 mg tablet RxNorm: 523576 1 Tablet(s) PO daily No Start Date 06/30/2016 Inactive gentamicin 0.3 % eye drops RxNorm: 722697 2 Drop(s) ophthalmic (eye) left eye Q8 No Start Date 04/15/2018 Inactive fluticasone 50 mcg/actuation nasal spray,suspension RxNorm: 499131 2 [place] NASAL daily No Start Date 09/03/2018 Inactive Multaq 400 mg tablet RxNorm: 072674 1 Tablet(s) PO BID No Start Date 12/19/2017 Inactive Klor-Con 10 mEq tablet,extended release RxNorm: 296747 1 Tablet(s) PO daily as needed No Start Date 06/25/2015 Inactive Novolog U-100 Insulin aspart 100 unit/mL subcutaneous solution RxNorm: 497402 SSI 80-150 10u 151-200 15u 201-300 17u over 300 21u Unit(s) SQ AC & HS as needed No Start Date 10/07/2018 Inactive simvastatin 40 mg tablet RxNorm: 440662 1 Tablet(s) PO daily No Start Date 02/04/2016 Inactive carvedilol 6.25 mg tablet RxNorm: 628489 1 Tablet(s) PO BID No Start Date 11/30/2015 Inactive Lasix 20 mg tablet RxNorm: 1 Tablet(s) PO daily as needed edema No Start Date 11/28/2018 Inactive cetirizine 10 mg tablet RxNorm: 0487576 1 Tablet(s) PO daily No Start Date 09/03/2018 Inactive Eliquis 5 mg tablet RxNorm: 0565517 1 Tablet(s) PO BID No Start Date 01/19/2016 Inactive Toujeo SoloStar 300 unit/mL (1.5 mL) subcutaneous insulin pen RxNorm: 4813877 33 Unit(s) SQ QHS MANAGED BY DR. JOHNSON No Start Date 06/01/2016 Inactive Lasix 20 mg tablet RxNorm: 1 Tablet(s) PO daily as needed No Start Date 06/25/2015 Inactive atorvastatin 40 mg tablet RxNorm: 959719 1 Tablet(s) PO daily No Start Date 09/03/2018 Inactive Humalog 100 unit/mL subcutaneous solution RxNorm: 206045 10 Unit(s) SQ TID No Start Date 08/06/2015 Inactive amlodipine 5 mg tablet RxNorm: 198964 1 Tablet(s) PO daily No Start Date 08/31/2016 Inactive Norvasc 2.5 mg tablet RxNorm: 144074 1 Tablet(s) PO daily No Start Date 04/02/2018 Inactive Medication Administered Medication Codes Instructions Start Date Status Kenalog 40 mg/mL suspension for injection RxNorm: 5171439 1Milliliter 09/25/2018 No longer Active Kenalog 40 mg/mL suspension for injection RxNorm: 6868624 1Milliliter 04/12/2018 No longer Active Immunizations Vaccine Codes Date Status Influenza CVX: 141 06/02/2016 completed Influenza CVX: 141 07/17/2015 completed Influenza CVX: 141 06/18/2014 completed Pneumococcal CVX: 33 06/18/2014 completed Assessments Condition Codes Effective Dates Localized edema ICD-10: R60.0 ICD-9: 782.3 12/10/2018 Essential (primary) hypertension ICD-10: I10 ICD-9: 401.1 12/10/2018 Type 2 diabetes mellitus with hyperglycemia ICD-10: E11.65 ICD-9: 250.02 12/10/2018 Essential (primary) hypertension ICD-10: I10 ICD-9: 401.9 10/08/2018 Other allergic rhinitis ICD-10: J30.89 ICD-9: 477.8 09/25/2018 Cough ICD-10: R05 ICD-9: 786.2 09/25/2018 Other acute sinusitis ICD-10: J01.80 ICD-9: 461.8 09/25/2018 Type 2 diabetes mellitus without complications ICD-10: E11.9 ICD-9: 250.00 08/17/2018 Myalgia, other site ICD-10: M79.18 ICD-9: 729.1 08/17/2018 Weakness ICD-10: R53.1 ICD-9: 780.79 06/26/2018 Unsteadiness on feet ICD-10: R26.81 ICD-9: 781.2 06/26/2018 Muscle weakness (generalized) ICD-10: M62.81 ICD-9: 728.87 [...] Mixed hyperlipidemia ICD-10: E78.2 ICD-9: 272.2 10/10/2017 Dyspnea, unspecified ICD-10: R06.00 ICD-9: 786.09 08/30/2017 [...] For Visit Effective Dates Notes diabetes mellitus 12/10/2018 diabetes mellitus 10/08/2018 sinus congestion 09/25/2018 edema 09/14/2018 Hospital Follow Up 09/04/2018 Hospital Follow Up 08/17/2018 diabetes mellitus 08/08/2018 [...] 31.2 pg 05/25/2017 Cbc With Differential Ord2 Roberts% 8.9 % 05/25/2017 Cbc With Differential Ord2 [...] 3.78 K/ul 05/25/2017 Cbc With Differential Ord2 Roberts ABS# 0.7 K/ul 05/25/2017 Cbc With Differential Ord2 Eos ABS# 0.8 K/ul 05/25/2017 Cbc With Differential Ord2 Baso ABS# 0.3 K/ul 05/25/2017 Manual Differential Ord52 D-Neutr 50 % 05/25/2017 Manual Differential Ord52 D-Lymph 38 % 05/25/2017 Manual Differential Ord52 D-Eos 10 % 05/25/2017 Manual Differential Ord52 D-1 2 NRBC 05/25/2017 Comp Metabolic Kzk225 NA 140 mEq/L 05/25/2017 Comp Metabolic Cxr723 K 4.0 mEq/L 05/25/2017 Comp Metabolic Lzr039 CL 107 mEq/L 05/25/2017 Comp Metabolic Xjq225 CO2 22.0 mEq/L 05/25/2017 Comp Metabolic Bhw058 ANION GAP 15 05/25/2017 Comp Metabolic Ctk671 GLUCOSE 97 mg/dL 05/25/2017 Comp Metabolic Dgt381 Creat 0.9 mg/dL 05/25/2017 Comp Metabolic Esx487 eGFR 61 ml/min/1.73m2 05/25/2017 Comp Metabolic Kyq990 BUN 16 mg/dL 05/25/2017 Comp Metabolic Eom413 B/C Ratio 17.4 Ratio 05/25/2017 Comp Metabolic Fab851 CALCIUM 9.1 mg/dL 05/25/2017 Comp Metabolic Kox200 ALK PHOS 109 U/L 05/25/2017 Comp Metabolic Lnj771 AST(SGOT) 19 U/L 05/25/2017 Comp Metabolic Aft805 ALT(SGPT) 17 U/L 05/25/2017 Comp Metabolic Krk496 BILI T 0.4 mg/dL 05/25/2017 Comp Metabolic Bqk567 ALBUMIN 3.3 g/dL 05/25/2017 Comp Metabolic Wcn974 TPRO 6.0 g/dL 05/25/2017 Comp Metabolic Chh907 GLOB 2.7 g/dL 05/25/2017 Comp Metabolic Tcp691 A/G Ratio 1.2 Ratio 05/25/2017 Comp Metabolic Rgj185 Osmo 281 mOsmo 05/25/2017 Lipid Ord30 CHOL 204 mg/dL 05/25/2017 Lipid Ord30 HDL 49.0 mg/dl 05/25/2017 Lipid Ord30 TRIG 117 mg/dL 05/25/2017 Lipid Ord30 LDL 132 mg/dL 05/25/2017 Lipid Ord30 C/HDL 4.2 Ratio 05/25/2017 %Hba1C Orc774 % HbA1c 82199-0 10.5 % 05/25/2017 %Hba1C Zpb439 Gluc Ave 255 mg/dL 05/25/2017 Microalbumin Yqe522 MicroAlb 95.0 mg/dL 05/25/2017 Review of Systems System Result Effective Dates Constitutional recent illness 12/10/2018 Constitutional No anorexia 12/10/2018 Constitutional No night sweats 2018 Constitutional No chills 12/10/2018 Constitutional No diaphoresis 12/10/2018 Constitutional fatigue 12/10/2018 Constitutional No insomnia 12/10/2018 Constitutional No malaise 12/10/2018 Eyes No eye discharge 12/10/2018 Eyes No eye erythema 12/10/2018 Ears/Nose/Throat/Neck No dizziness 2018 Ears/Nose/Throat/Neck No headache 2018 Cardiovascular No chest pain/pressure Cardiovascular edema 12/10/2018 Cardiovascular exercise intolerance 12/10 Cardiovascular fatigue 12/10/2018 Respiratory No cough 12/10/2018 Respiratory dyspnea on exertion 2018 Gastrointestinal No abdominal pain 2018 Gastrointestinal No constipation 2018 Gastrointestinal No diarrhea 12/10/2018 Genitourinary/Nephrology No dysuria 12/10 Musculoskeletal No joint complaint 2018 Dermatologic No rash 12/10/2018 Neurologic No alteration of consciousness 12/10/2018 Psychiatric depression 12/10/2018 Endocrine diabetes mellitus type 2 2018 Constitutional recent illness 10/08/2018 Constitutional No anorexia 10/08/2018 Constitutional No night sweats 2018 Constitutional No chills 10/08/2018 Constitutional No diaphoresis 10/08/2018 Constitutional fatigue 10/08/2018 Constitutional No fever 10/08/2018 Constitutional No insomnia 10/08/2018 Constitutional No malaise 10/08/2018 Eyes No eye discharge 10/08/2018 Eyes No eye erythema 10/08/2018 Ears/Nose/Throat/Neck No dizziness 2018 Ears/Nose/Throat/Neck No headache 2018 Cardiovascular No chest pain/pressure Cardiovascular edema 10/08/2018 Cardiovascular exercise intolerance 10/08 Cardiovascular fatigue 10/08/2018 Respiratory No cough 10/08/2018 Respiratory dyspnea on exertion 2018 Gastrointestinal No abdominal pain 2018 Gastrointestinal No constipation 2018 Gastrointestinal No diarrhea 10/08/2018 Genitourinary/Nephrology No dysuria 10/08 Musculoskeletal No joint complaint 2018 Dermatologic No rash 10/08/2018 Neurologic No alteration of consciousness 10/08/2018 Psychiatric depression 10/08/2018 Neurologic No dizziness 10/08/2018 Constitutional recent illness 09/25/2018 Constitutional No chills 09/25/2018 Constitutional No diaphoresis 09/25/2018 Constitutional No fever 09/25/2018 Eyes No eye erythema 09/25/2018 Ears/Nose/Throat/Neck nasal allergies 04/2019 Ears/Nose/Throat/Neck nasal discharge 04/2019 Ears/Nose/Throat/Neck postnasal drip 04/2019 Ears/Nose/Throat/Neck sinus congestion Ears/Nose/Throat/Neck No sore throat 04/2019 Cardiovascular No chest pain/pressure 04/2019 Cardiovascular No dyspnea 09/25/2018 Respiratory chest congestion 09/25/2018 Respiratory cough 09/25/2018 Respiratory No dyspnea 09/25/2018 Gastrointestinal No abdominal pain 2018 Gastrointestinal No constipation 2018 Gastrointestinal No diarrhea 09/25/2018 Gastrointestinal No nausea 09/25/2018 Gastrointestinal No vomiting 09/25/2018 Dermatologic No rash 09/25/2018 Neurologic No alteration of consciousness 09/25/2018 Neurologic No mental status change 2018 Respiratory wheezing 09/25/2018 Constitutional No recent illness 2017 Constitutional No fever 09/14/2018 Constitutional No chills 09/14/2018 Constitutional No diaphoresis 09/14/2018 Eyes No eye erythema 09/14/2018 Ears/Nose/Throat/Neck No nasal discharge 09/14/2018 Cardiovascular No chest pain/pressure Cardiovascular dyspnea 09/14/2018 Cardiovascular edema 09/14/2018 Cardiovascular No fatigue 09/14/2018 Cardiovascular No near-syncope/dizziness 09/14/2018 Respiratory No cough 09/14/2018 Respiratory No chest congestion 2017 Respiratory dyspnea on exertion 2017 Gastrointestinal No abdominal pain 2017 Neurologic No alteration of consciousness 09/14/2018 Neurologic No mental status change 2017 Constitutional recent illness 09/04/2018 Constitutional No anorexia 09/04/2018 Constitutional No night sweats 2017 Constitutional No chills 09/04/2018 Constitutional No diaphoresis 09/04/2018 Constitutional fatigue 09/04/2018 Constitutional No fever 09/04/2018 Constitutional No insomnia 09/04/2018 Constitutional No malaise 09/04/2018 Constitutional No weight loss 09/04/2018 Constitutional No weight gain 09/04/2018 Eyes No eye erythema 09/04/2018 Eyes No eye discharge 09/04/2018 Ears/Nose/Throat/Neck No dizziness 2017 Ears/Nose/Throat/Neck No headache 2017 Cardiovascular No chest pain/pressure Cardiovascular edema 09/04/2018 Cardiovascular fatigue 09/04/2018 Cardiovascular exercise intolerance 09/04 Respiratory No cough 09/04/2018 Respiratory dyspnea on exertion 2017 Gastrointestinal No abdominal pain 2017 Gastrointestinal No constipation 2017 Gastrointestinal No diarrhea 09/04/2018 Genitourinary/Nephrology No dysuria 09/04 Musculoskeletal No joint complaint 2017 Dermatologic No rash 09/04/2018 Neurologic No alteration of consciousness 09/04/2018 Psychiatric depression 09/04/2018 Constitutional No recent illness 2017 Constitutional No [...] 1994 Constitutional general appearance Overall: well developed 12/10/2018 None Full Exam - General 1994 Constitutional general appearance Overall: in no acute distress 12/10/2018 None Full Exam - General 1994 Constitutional general appearance Overall: well nourished 12/10/2018 None Full Exam - General 1994 Constitutional general appearance Hygiene/Attention to Grooming: good hygiene 12/10/2018 None Full Exam - General 1994 Eyes conjunctiva /eyelids Overall: conjunctiva clear 12/10/2018 None Full Exam - General 1994 Eyes conjunctiva /eyelids Overall: cornea clear 12/10/2018 None Full Exam - General 1994 Eyes conjunctiva /eyelids Overall: eyelids normal 12/10/2018 None Full Exam - General 1994 Eyes pupils and irises Overall: pupils equal, round, reactive to light and accomodation 12/10/2018 None Full Exam - General 1994 Ears/Nose/Throat lips/teeth/gingiva Overall: benign lips 12/10/2018 None Full Exam - General 1994 Ears/Nose/Throat oral cavity/pharynx/larynx Overall: oral mucosa clear 12/10/2018 None Full Exam - General 1994 Ears/Nose/Throat oral cavity/pharynx/larynx Overall: oropharyngeal mucosa clear 12/10/2018 None Full Exam - Cardiology Cardiovascular extremities Edema present: pitting 12/10/2018 None Full Exam - Cardiology Cardiovascular extremities Edema present: severity 1+ - 4 +: 1+ 12/10/2018 None Full Exam - Cardiology Cardiovascular extremities Edema present: to knees 12/10/2018 None Full Exam - General 1994 Respiratory auscultation Overall: breath sounds clear bilaterally 12/10/2018 None Full Exam - General 1994 Respiratory respiratory effort/rhythm Overall: no retractions 12/10/2018 None Full Exam - General 1994 Respiratory respiratory effort/rhythm Overall: normal rate 12/10/2018 None Full Exam - General 1994 Cardiovascular auscultation of heart Overall: regular rate 12/10/2018 None Full Exam - General 1994 Cardiovascular auscultation of heart Overall: normal heart sounds 12/10/2018 None Full Exam - General 1994 Abdomen abdominal exam Overall: no tenderness 12/10/2018 None Full Exam - General 1994 Abdomen abdominal exam Overall: normal bowel sounds 12/10/2018 None Full Exam - General 1994 Lymphatic neck nodes Overall: anterior cervical chain benign 12/10/2018 None Full Exam - General 1994 Lymphatic neck nodes Overall: posterior cervical chain benign 12/10/2018 None Full Exam - Cardiology Integument inspection/palpation Overall: no rash, lesions 12/10/2018 None Full Exam - General 1994 Psychiatric orientation/consciousness Overall: oriented to person, place and time 12/10/2018 None Full Exam - General 1994 Psychiatric mood and affect Overall: normal mood and affect 12/10/2018 None Full Exam - Cardiology Constitutional general appearance Assistive Device: walker 12/10/2018 None Full Exam - General 1994 Constitutional general appearance Overall: well developed 10/08/2018 None Full Exam - General 1994 Constitutional general appearance Overall: in no acute distress 10/08/2018 None Full Exam - General 1994 Constitutional general appearance Overall: well nourished 10/08/2018 None Full Exam - General 1994 Constitutional general appearance Hygiene/Attention to Grooming: good hygiene 10/08/2018 None Full Exam - General 1994 Eyes conjunctiva /eyelids Overall: conjunctiva clear 10/08/2018 None Full Exam - General 1994 Eyes conjunctiva /eyelids Overall: cornea clear 10/08/2018 None Full Exam - General 1994 Eyes conjunctiva /eyelids Overall: eyelids normal 10/08/2018 None Full Exam - General 1994 Eyes pupils and irises Overall: pupils equal, round, reactive to light and accomodation 10/08/2018 None Full Exam - General 1994 Ears/Nose/Throat lips/teeth/gingiva Overall: benign lips 10/08/2018 None Full Exam - General 1994 Ears/Nose/Throat oral cavity/pharynx/larynx Overall: oral mucosa clear 10/08/2018 None Full Exam - General 1995 Ears/Nose/Throat oral cavity/pharynx/larynx Overall: oropharyngeal mucosa clear 10/08/2018 None Full Exam - Cardiology Cardiovascular extremities Edema present: pitting 10/08/2018 None Full Exam - Cardiology Cardiovascular extremities Edema present: severity 1+ - 4 +: 1+ 10/08/2018 None Full Exam - Cardiology Cardiovascular extremities Edema present: to knees 10/08/2018 None Full Exam - General 1994 Respiratory auscultation Overall: breath sounds clear bilaterally 10/08/2018 None Full Exam - General 1994 Respiratory respiratory effort/rhythm Overall: no retractions 10/08/2018 None Full Exam - General 1994 Respiratory respiratory effort/rhythm Overall: normal rate 10/08/2018 None Full Exam - General 1994 Cardiovascular auscultation of heart Overall: regular rate 10/08/2018 None Full Exam - General 1994 Cardiovascular auscultation of heart Overall: normal heart sounds 10/08/2018 None Full Exam - General 1994 Abdomen abdominal exam Overall: no tenderness 10/08/2018 None Full Exam - General 1994 Abdomen abdominal exam Overall: normal bowel sounds 10/08/2018 None Full Exam - General 1994 Lymphatic neck nodes Overall: anterior cervical chain benign 10/08/2018 None Full Exam - General 1994 Lymphatic neck nodes Overall: posterior cervical chain benign 10/08/2018 None Full Exam - Cardiology Integument inspection/palpation Overall: no rash, lesions 10/08/2018 None Full Exam - General 1994 Neurologic cranial nerves Overall: crainial nerves 2 - 12 grossly intact 10/08/2018 None Full Exam - General 1994 Psychiatric orientation/consciousness Overall: oriented to person, place and time 10/08/2018 None Full Exam - General 1994 Psychiatric mood and affect Overall: normal mood and affect 10/08/2018 None Full Exam - Cardiology Constitutional general appearance Assistive Device: walker 10/08/2018 None Full Exam - General 1994 Constitutional general appearance Overall: well developed 09/25/2018 None Full Exam - General 1994 Constitutional general appearance Overall: in no acute distress 09/25/2018 None Full Exam - General 1994 Constitutional general appearance Overall: well nourished 09/25/2018 None Full Exam - General 1994 Eyes conjunctiva /eyelids Overall: eyelids normal 09/25/2018 None Full Exam - General 1994 Eyes conjunctiva /eyelids Overall: cornea clear 09/25/2018 None Full Exam - General 1994 Eyes conjunctiva /eyelids Overall: conjunctiva clear 09/25/2018 None Full Exam - General 1994 Eyes pupils and irises Overall: pupils equal, round, reactive to light and accomodation 09/25/2018 None Full Exam - General 1995 Ears/Nose/Throat otoscopic exam Overall: external auditory canals clear 09/25/2018 None Full Exam - General 1995 Ears/Nose/Throat otoscopic exam Tympanic membrane: air- fluid level 09/25/2018 None Full Exam - General 1995 Ears/Nose/Throat lips/teeth/gingiva Overall: benign lips 09/25/2018 None Full Exam - General 1995 Ears/Nose/Throat oral cavity/pharynx/larynx Overall: oral mucosa clear 09/25/2018 None Full Exam - General 1995 Ears/Nose/Throat oral cavity/pharynx/larynx Posterior Pharynx: clear post nasal drainage 09/25/2018 None Full Exam - General 1994 Respiratory respiratory effort/rhythm Overall: normal rate 09/25/2018 None Full Exam - General 1994 Respiratory respiratory effort/rhythm Overall: no retractions 09/25/2018 None Full Exam - General 1994 Respiratory auscultation Diffuse: diminished 09/25/2018 None Full Exam - General 1994 Respiratory auscultation Right lower lung field: expiratory wheezes 09/25/2018 None Full Exam - General 1994 Cardiovascular auscultation of heart Overall: regular rate 09/25/2018 None Full Exam - General 1994 Cardiovascular auscultation of heart Overall: normal heart sounds 09/25/2018 None Full Exam - General 1994 Musculoskeletal head and neck Overall: head atraumatic 09/25/2018 None Full Exam - General 1994 Neurologic cranial nerves Overall: crainial nerves 2 - 12 grossly intact 09/25/2018 None Full Exam - General 1994 Psychiatric orientation/consciousness Overall: oriented to person, place and time 09/25/2018 None Full Exam - General 1994 Psychiatric mood and affect Overall: normal mood and affect 09/25/2018 None Full Exam - General 1994 Constitutional general appearance Overall: well developed 09/14/2018 None Full Exam - General 1994 Constitutional general appearance Overall: in no acute distress 09/14/2018 None Full Exam - General 1994 Constitutional general appearance Overall: well nourished 09/14/2018 None Full Exam - General 1994 Eyes conjunctiva /eyelids Overall: eyelids normal 09/14/2018 None Full Exam - General 1994 Eyes conjunctiva /eyelids Overall: cornea clear 09/14/2018 None Full Exam - General 1994 Eyes conjunctiva /eyelids Overall: conjunctiva clear 09/14/2018 None Full Exam - General 1994 Ears/Nose/Throat lips/teeth/gingiva Overall: benign lips 09/14/2018 None Full Exam - General 1994 Ears/Nose/Throat oral cavity/pharynx/larynx Overall: oral mucosa clear 09/14/2018 None Full Exam - General 1994 Respiratory respiratory effort/rhythm Overall: normal rate 09/14/2018 None Full Exam - General 1994 Respiratory respiratory effort/rhythm Overall: no retractions 09/14/2018 None Full Exam - General 1994 Cardiovascular extremities Edema present: pitting 09/14/2018 None Full Exam - General 1994 Cardiovascular extremities Edema present: severity 1+ - 4 +: 3-4+ 09/14/2018 None Full Exam - General 1994 Cardiovascular extremities Edema present: bilateral 09/14/2018 None Full Exam - General 1994 Cardiovascular extremities Edema present: to thighs 09/14/2018 None Full Exam - General 1994 Cardiovascular auscultation of heart Overall: regular rate 09/14/2018 None Full Exam - General 1994 Cardiovascular auscultation of heart Overall: normal heart sounds 09/14/2018 None Full Exam - General 1994 Musculoskeletal head and neck Overall: head atraumatic 09/14/2018 None Full Exam - General 1994 Neurologic cranial nerves Overall: crainial nerves 2 - 12 grossly intact 09/14/2018 None Full Exam - General 1994 Psychiatric mood and affect Overall: normal mood and affect 09/14/2018 None Full Exam - General 1994 Psychiatric orientation/consciousness Overall: oriented to person, place and time 09/14/2018 None Full Exam - General 1994 Respiratory auscultation Overall: breath sounds clear bilaterally 09/14/2018 None Full Exam - General 1994 Respiratory auscultation Lower lung field: crackles 09/14/2018 faint Full Exam - General 1994 Constitutional general appearance Overall: well developed 09/04/2018 None Full Exam - General 1994 Constitutional general appearance Overall: in no acute distress 09/04/2018 None Full Exam - General 1994 Constitutional general appearance Overall: well nourished 09/04/2018 None Full Exam - General 1994 Constitutional general appearance Hygiene/Attention to Grooming: good hygiene 09/04/2018 None Full Exam - General 1994 Eyes conjunctiva /eyelids Overall: conjunctiva clear 09/04/2018 None Full Exam - General 1994 Eyes conjunctiva /eyelids Overall: cornea clear 09/04/2018 None Full Exam - General 1994 Eyes conjunctiva /eyelids Overall: eyelids normal 09/04/2018 None Full Exam - General 1994 Eyes pupils and irises Overall: pupils equal, round, reactive to light and accomodation 09/04/2018 None Full Exam - General 1994 Ears/Nose/Throat lips/teeth/gingiva Overall: benign lips 09/04/2018 None Full Exam - General 1994 Ears/Nose/Throat oral cavity/pharynx/larynx Overall: oral mucosa clear 09/04/2018 None Full Exam - General 1994 Ears/Nose/Throat oral cavity/pharynx/larynx Overall: oropharyngeal mucosa clear 09/04/2018 None Full Exam - General 1994 Respiratory auscultation Overall: breath sounds clear bilaterally 09/04/2018 None Full Exam - General 1994 Respiratory respiratory effort/rhythm Overall: no retractions 09/04/2018 None Full Exam - General 1994 Respiratory respiratory effort/rhythm Overall: normal rate 09/04/2018 None Full Exam - General 1994 Cardiovascular auscultation of heart Overall: regular rate 09/04/2018 None Full Exam - General 1994 Cardiovascular auscultation of heart Overall: normal heart sounds 09/04/2018 None Full Exam - General 1994 Abdomen abdominal exam Overall: no tenderness 09/04/2018 None Full Exam - General 1994 Abdomen abdominal exam Overall: normal bowel sounds 09/04/2018 None Full Exam - General 1994 Lymphatic neck nodes Overall: anterior cervical chain benign 09/04/2018 None Full Exam - General 1994 Lymphatic neck nodes Overall: posterior cervical chain benign 09/04/2018 None Full Exam - General 1994 Neurologic cranial nerves Overall: crainial nerves 2 - 12 grossly intact 09/04/2018 None Full Exam - General 1994 Psychiatric orientation/consciousness Overall: oriented to person, place and time 09/04/2018 None Full Exam - General 1994 Psychiatric mood and affect Overall: normal mood and affect 09/04/2018 None Full Exam - Cardiology Cardiovascular extremities Edema present: pitting 09/04/2018 None Full Exam - Cardiology Cardiovascular extremities Edema present: severity 1+ - 4 +: 1+ 09/04/2018 None Full Exam - Cardiology Cardiovascular extremities Edema present: to knees 09/04/2018 None Full Exam - Cardiology Constitutional general appearance Assistive Device: walker 09/04/2018 None Full Exam - Cardiology Integument inspection/palpation Overall: no rash, lesions 09/04/2018 None Full Exam - General 1994 Constitutional [...] - General 1995 Eyes conjunctiva /eyelids Overall: cornea clear 06/26/2018 [...] affect 05/04/2015 None Procedures Procedure Codes Date TRIAMCINOLONE ACET INJ NOS CPT-4: J3301 09/25/2018 THER/PROPH/DIAG INJ SC/IM CPT-4: 57409 09/25/2018 DRAIN/INJECT JOINT/BURSA CPT-4: 93461 04/12/2018 TRIAMCINOLONE ACET INJ NOS CPT-4: J3301 04/12/2018 PPPS, SUBSEQ VISIT CPT -4: G0439 02/22/2018 ADMIN INFLUENZA VIRUS VAC CPT-4: G0008 06/02/2016 FLU VACC PRSV FREE INC ANTIG CPT-4: 57163 06/02/2016 Vital Signs Date Vital 12/10/2018 Blood Pressure 1: 152/58 Code : 8480-6 BMI: 25.6 Code : 67579-8 Heart Rate 1 : 63 bpm Height: 4'8" SpO2: 95% Weight: 114 lbs 10/08/2018 Blood Pressure 1: 136/56 Code : 8480-6 BMI: 26.0 Code : 41654-3 Heart Rate 1 : 55 bpm Height: 4'8" SpO2: 99% Weight: 116 lbs 09/25/2018 Blood Pressure 1: 140/62 Code : 8480-6 BMI: 27.4 Code : 45427-7 Heart Rate 1 : 89 bpm Height: 4'8" SpO2: 97% Temperature: 37.6 (C) / 99.6 (F) Weight: 122 lbs 09/14/2018 Blood Pressure 1: 148/72 Code : 8480-6 BMI: 27.4 Code : 78882-1 Heart Rate 1 : 68 bpm Height: 4'8" SpO2: 98% Weight: 122 lbs 09/04/2018 Blood Pressure 1: 152/60 Code : 8480-6 BMI: 27.1 Code : 94588-4 Heart Rate 1 : 56 bpm Height: 4'8" SpO2: 96% Weight: 121 lbs 08/17/2018 Blood Pressure 1: 140/66 Code : 8480-6 BMI: 25.3 Code : 12274-9 Heart Rate 1 : 66 bpm Height: 4'8" SpO2: 97% Weight: 113 lbs 08/08/2018 Blood Pressure 1: 174/70 Code : 8480-6 BMI: 25.3 Code : 68425-5 Heart Rate 1 : 60 bpm Height: 4'8" SpO2: 97% Weight: 113 lbs 07/17/2018 Blood Pressure 1: 148/62 Code : 8480-6 BMI: 24.9 Code : 87799-3 Heart Rate 1 : 65 bpm Height: 4'8" SpO2: 97% Weight: 111 lbs 06/26/2018 Blood Pressure 1: 118/72 Code : 8480-6 BMI: 25.1 Code : 68990-2 Heart Rate 1 : 58 bpm Height: 4'8" SpO2: 97% Weight: 112 lbs 06/21/2018 Blood Pressure 1: 120/72 Code : 8480-6 BMI: 25.1 Code : 95538-6 Heart Rate 1 : 56 bpm Height: 4'8" SpO2: 96% Weight: 112 lbs 05/02/2018 Blood Pressure 1: 178/76 Code : 8480-6 BMI: 24.7 Code : 84977-0 Heart Rate 1 : 72 bpm Height: 4'8" SpO2: 98% Weight: 110 lbs 04/27/2018 Blood Pressure 1: 164/78 Code : 8480-6 BMI: 24.7 Code : 98336-5 Heart Rate 1 : 69 bpm Height: 4'8" SpO2: 97% Weight: 110 lbs 04/20/2018 Blood Pressure 1: 140/80 Code : 8480-6 BMI: 24.7 Code : 21554-4 Heart Rate 1 : 83 bpm Height: 4'8" SpO2: 97% Weight: 110 lbs 04/12/2018 Blood Pressure 1: 146/78 Code : 8480-6 Heart Rate 1: 68 bpm Height: SpO2: 98% Weight: 04/10/2018 Blood Pressure 1: 146/60 Code : 8480-6 BMI: 24.7 Code : 97710-4 Heart Rate 1 : 60 bpm Height: 4'8" SpO2: 95% Weight: 110 lbs 04/03/2018 Blood Pressure 1: 204/80 Code : 8480-6 BMI: 24.9 Code : 65117-9 Heart Rate 1 : 62 bpm Height: 4'8" SpO2: 98% Weight: 111 lbs 03/13/2018 Blood Pressure 1: 140/68 Code : 8480-6 BMI: 25.6 Code : 48444-4 Heart Rate 1 : 68 bpm Height: 4'8" SpO2: 95% Weight: 114 lbs 02/22/2018 Blood Pressure 1: 166/88 Code : 8480-6 BMI: 24.7 Code : 42926-0 Heart Rate 1 : 72 bpm Height: 4'8" SpO2: 95% Weight: 110 lbs 02/01/2018 Blood Pressure 1: 162/70 Code : 8480-6 BMI: 23.2 Code : 88322-4 Heart Rate 1 : 64 bpm Height: 4'11" SpO2: 95% Weight: 115 lbs 01/18/2018 Blood Pressure 1: 192/86 Code : 8480-6 BMI: 22.6 Code : 46658-1 Heart Rate 1 : 68 bpm Height: 4'11" SpO2: 94% Weight: 112 lbs 12/21/2017 Blood Pressure 1: 110/52 Code : 8480-6 BMI: 23.0 Code : 10315-3 Heart Rate 1 : 58 bpm Height: 4'11" SpO2: 94% Weight: 114 lbs 10/10/2017 Blood Pressure 1: 168/78 Code : 8480-6 BMI: 23.0 Code : 54821-3 Heart Rate 1 : 54 bpm Height: 4'11" SpO2: 98% Weight: 114 lbs 09/07/2017 Blood Pressure 1: 142/72 Code : 8480-6 Heart Rate 1: 84 bpm Height: 4'11" SpO2: 97% Weight: 08/30/2017 Blood Pressure 1: 188/82 Code : 8480-6 BMI: 24.4 Code : 82391-3 Heart Rate 1 : 79 bpm Height: 4'11" SpO2: 88% Temperature: 38.5 (C) / 101.3 (F) Weight: 121 lbs 08/15/2017 Blood Pressure 1: 166/78 Code : 8480-6 BMI: 22.8 Code : 59949-4 Heart Rate 1 : 71 bpm Height: 4'11" SpO2: 96% Weight: 113 lbs 06/15/2017 Blood Pressure 1: 138/68 Code : 8480-6 BMI: 22.8 Code : 41564-2 Heart Rate 1 : 54 bpm Height: 4'11" SpO2: 98% Weight: 113 lbs 05/29/2017 Blood Pressure 1: 96/46 Code : 8480-6 Blood Pressure 2: 116/57 Code: 8480-6 Heart Rate 1: 54 bpm 05/11/2017 Blood Pressure 1: 144/60 Code : 8480-6 BMI: 23.8 Code : 70751-8 Heart Rate 1 : 68 bpm Height: 4'11" SpO2: 97% Weight: 118 lbs 01/05/2017 Blood Pressure 1: 134/72 Code : 8480-6 BMI: 24.8 Code : 26197-5 Heart Rate 1 : 64 bpm Height: 4'11" SpO2: 94% Weight: 123 lbs 09/20/2016 Blood Pressure 1: 148/66 Code : 8480-6 BMI: 25.4 Code : 38345-7 Heart Rate 1 : 68 bpm Height: 4'11" SpO2: 97% Weight: 126 lbs 09/01/2016 Blood Pressure 1: 162/80 Code : 8480-6 BMI: 26.1 Code : 84835-8 Heart Rate 1 : 75 bpm Height: 4'11" SpO2: 95% Weight: 129 lbs 06/02/2016 Blood Pressure 1: 144/82 Code : 8480-6 BMI: 25.4 Code : 40706-1 Heart Rate 1 : 68 bpm Height: 4'11" SpO2: 98% Weight: 126 lbs 03/25/2016 Blood Pressure 1: 140/58 Code : 8480-6 BMI: 25.9 Code : 20354-2 Heart Rate 1 : 58 bpm Height: 4'11" SpO2: 95% Weight: 128 lbs 01/26/2016 Blood Pressure 1: 138/68 Code : 8480-6 BMI: 26.3 Code : 93271-4 Heart Rate 1 : 66 bpm Height: 4'11" SpO2: 96% Weight: 130 lbs 10/29/2015 Blood Pressure 1: 180/78 Code : 8480-6 BMI: 25.7 Code : 75754-2 Heart Rate 1 : 74 bpm Height: 4'11" SpO2: 97% Weight: 127 lbs 07/21/2015 Blood Pressure 1: 136/70 Code : 8480-6 BMI: 25.9 Code : 99085-5 Heart Rate 1 : 63 bpm Height: 4'11" SpO2: 95% Weight: 128 lbs 07/08/2015 Blood Pressure 1: 140/70 Code : 8480-6 BMI: 26.5 Code : 33974-6 Heart Rate 1 : 59 bpm Height: 4'11" SpO2: 94% Weight: 131 lbs 5 oz 05/04/2015 Blood Pressure 1: 140/60 Code : 8480-6 BMI: 25.7 Code : 25538-7 Heart Rate 1 : 60 bpm Height: 4'11" SpO2: 94% Weight: 127 lbs Functional Status No Functional Status data History of Present Illness Symptom Name Status Result Effective Date Notes Onset of Symptom onset as an adult 12/10/2018 None Quality insulin dependent 12/10/2018 None Quality chronic 12/10 None Alleviating Factors insulin 12/10/2018 None Exacerbating Factors diet 12/10/2018 None Pertinent Findings Denies dizziness 12/10/2018 None Onset and Resolution ongoing 12/10/2018 None Onset of Symptom during adulthood 12/10/2018 None Quality chronic 10/08 None Quality insulin dependent 10/08/2018 None Onset of Symptom onset as an adult 10/08/2018 None Alleviating Factors insulin 10/08/2018 None Exacerbating Factors diet 10/08/2018 None Pertinent Findings Denies dizziness 10/08/2018 None Test results Pt checking blood glucose readings, did not bring results to clinic 10/08/2018 None Location frontal sinuses 09/25/2018 None Quality fullness 04/2019 None Quality constant 04/2019 None Quality pressure 04/2019 None Onset and Resolution sudden in onset 09/25/2018 None Onset of Symptom 1 weeks ago 09/25/2018 None Frequency of Episodes daily 09/25/2018 None Location diffusely None Quality acute 2018 None Quality intermittent 09/25/2018 None Quality acute 2018 None Quality worsening 04/2019 None Onset and Resolution ongoing 09/25/2018 None Onset of Symptom 5 days ago 09/25/2018 None Pertinent Findings cough 09/25/2018 None Pertinent Findings Denies dyspnea 09/25/2018 None Pertinent Findings Denies fever 09/25/2018 None Pertinent Findings sputum production 09/25/2018 None Onset and Resolution gradual in onset 09/14/2018 None Limitation on Activities moderately limits activities 09/14/2018 None Pertinent Findings Denies nausea 09/14/2018 None Location on both legs 09/14/2018 None Quality acute 2017 None _ Other: uncontrolled blood sugar 09/04/2018 None Significant Medical Conditions diabetes 09/04/2018 None Location on both legs 09/04/2018 None Quality acute 2017 None Pertinent Findings dyspnea on exertion 09/04/2018 None Alleviating Factors Denies medication 09/04/2018 -PRN lasix Onset and Resolution Denies ongoing 09/04/2018 None Limitation on Activities does not limit activities 09/04/2018 None Frequency of Episodes unchanged 09/04/2018 None Significant Past Medical History cardiac disease 09/04/2018 None Significant Medications diuretics 09/04/2018 None Triggers no known associated factors 09/04/2018 None Hospital Follow Up _ Other: _ 08/17/2018 [...] Present Encounters Encounter Performer Location Codes Date ([id number]) 83281 EST. PATIENT, LEVEL IV Diagnosis: Essential (primary) hypertension[ICD10: I10] Diagnosis: Type 2 diabetes mellitus with hyperglycemia[ICD10: E11.65] Diagnosis: Localized edema[ICD10: R60.0] Ktae Sow MD, [facility] CPT- 4: 62680 12/10/2018 [id number]) 96199 EST. PATIENT, LEVEL IV Diagnosis: Essential (primary) hypertension[ICD10: I10] Kate Sow MD, [facility] CPT-4: 39176 10/08/2018 31605 EST. PATIENT, LEVEL IV Diagnosis: Other acute sinusitis[ICD10: J01.80] Diagnosis: Other allergic rhinitis[ICD10: J30.89] Diagnosis: Localized edema[ICD10: R60.0] Diagnosis: Cough[ICD10: R05] Elizabeth Sow MD, [facility] CPT-4: 15823 09/25/2018 77192 EST. PATIENT, LEVEL IV Diagnosis: Localized edema[ICD10: R60.0] Elizabeth Sow MD, [facility] CPT-4 : 20158 09/14/2018 ([id number]) 68391 EST. PATIENT, LEVEL IV Diagnosis: Essential (primary) hypertension[ICD10: I10] Diagnosis: Localized edema[ICD10: R60.0] Diagnosis: Type 2 diabetes mellitus with hyperglycemia[ICD10: E11.65] Laney Sow MD, [facility] CPT-4: 52800 09/04/2018 11045 EST. PATIENT, LEVEL III Diagnosis: Essential (primary) hypertension[ICD10: I10] Diagnosis: Type 2 diabetes mellitus without complications[ICD10: E11.9] Diagnosis: Myalgia, other site[ICD10: M79.18] Elizabeth Sow MD, [facility] CPT-4: 10261 08/17/2018 ([id number]) 60413 EST. PATIENT, LEVEL IV Diagnosis: Essential (primary) hypertension[ICD10: I10] Diagnosis: Type 2 diabetes mellitus without complications[ICD10: E11.9] Kate Sow MD, [facility] CPT-4: 64253 08/08/2018 26966 EST. PATIENT, LEVEL III Diagnosis: Type 2 diabetes mellitus with hyperglycemia[ICD10: E11.65] Elizabeth Sow MD, [facility] CPT-4: 22898 07/17/2018 43418 EST. PATIENT, LEVEL III Diagnosis: Type 2 diabetes mellitus with hyperglycemia[ICD10: E11.65] Diagnosis: Weakness[ICD10: R53.1] Diagnosis: Unsteadiness on feet[ICD10: R26.81] Elizabeth Sow MD, [facility] CPT-4: 89299 06/26/2018 ([id number]) 54213 EST. PATIENT, LEVEL IV Diagnosis: Type 2 diabetes mellitus with hyperglycemia[ICD10: E11.65] Diagnosis: Essential (primary) hypertension[ICD10: I10] Diagnosis: Muscle weakness (generalized)[ICD10: M62.81] Diagnosis: Localized edema[ICD10: R60.0] Kate Sow MD, [facility] CPT- 4: 38430 06/21/2018 ([id number]) 81544 EST. 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 PATIENT, LEVEL III Diagnosis: Low back pain[ICD10: M54.5] Elizabeth Sow MD, [facility] CPT-4 : 51607 04/27/2018 ([id number]) 74159 EST. PATIENT, LEVEL IV Diagnosis: Diplopia[ICD10: H53.2] Diagnosis: Rash and other nonspecific skin eruption[ICD10: R21] Diagnosis: Type 2 diabetes mellitus with hyperglycemia[ICD10: E11.65] Laney Sow MD, [facility] CPT-4: 88361 04/20/2018 ([id number]) 05929 EST. PATIENT, LEVEL III Diagnosis: Low back pain[ICD10: M54.5] Elizabeth Sow MD, [facility] CPT-4 : 94359 04/12/2018 ([id number]) 09766 EST. PATIENT, LEVEL III Diagnosis: Essential (primary) hypertension[ICD10: I10] Diagnosis: Type 2 diabetes mellitus with hyperglycemia[ICD10: E11.65] Kate Sow MD , [facility] CPT-4: 26905 04/10/2018 ([id number]) 71098 EST. PATIENT, LEVEL III Diagnosis: Lumbago with sciatica, left side[ICD10: M54.42] Diagnosis: Essential (primary) hypertension[ICD10: I10] Laney Sow MD, [facility] CPT-4: 97199 04/03/2018 ([id number]) 36610 EST. PATIENT, LEVEL IV Diagnosis: Type 2 diabetes mellitus with hyperglycemia[ICD10: E11.65] Diagnosis: Essential (primary) hypertension[ICD10: I10] Kate Sow MD, [facility] CPT-4: 43129 03/13/2018 ([id number]) 48033 EST. PATIENT, LEVEL IV Diagnosis: Essential (primary) hypertension[ICD10: I10] Diagnosis: Type 2 diabetes mellitus with hyperglycemia[ICD10: E11.65] Kate Sow MD , [facility] CPT-4: 77887 02/01/2018 ([id number]) 69441 EST. PATIENT, LEVEL IV Diagnosis: Type 2 diabetes mellitus with hyperglycemia[ICD10: E11.65] Diagnosis: Essential (primary) hypertension[ICD10: I10] Kate Sow MD [facility] CPT-4: 89749 01/18/2018 ([id number]) Miscellaneous no charge Diagnosis: Type 2 diabetes mellitus with hyperglycemia[ICD10: E11.65] Elizabeth Swo MD, [facility] CPT-4: 65353 12/22/2017 ([id number]) 92880 EST. PATIENT, LEVEL IV Diagnosis: Type 2 diabetes mellitus with hyperglycemia[ICD10: E11.65] Diagnosis: Essential (primary) hypertension[ICD10: I10] Diagnosis: Muscle weakness (generalized)[ICD10: M62.81] Kate Sow MD, [facility] CPT-4: 81636 12/21/2017 56720 EST. PATIENT, LEVEL IV Diagnosis: Type 2 diabetes mellitus without complications[ICD10: E11.9] Diagnosis: Mixed hyperlipidemia[ICD10: E78.2] Diagnosis: Essential (primary) hypertension[ICD10: I10] Elizabeth Sow MD, [facility] CPT-4: 45276 10/10/2017 65932 EST. PATIENT, LEVEL III Diagnosis: Weakness[ICD10: R53.1] Diagnosis: Essential (primary) hypertension[ICD10: I10] Elizabeth Sow MD [facility] CPT-4: 68948 09/07/2017 12490 EST. PATIENT, LEVEL III Diagnosis: Encounter for follow-up examination after completed treatment for conditions other than malignant neoplasm[ICD10: Z09] Diagnosis: Weakness[ICD10: R53.1] Diagnosis: Essential (primary) hypertension[ICD10: I10] Diagnosis: Dyspnea, unspecified[ICD10: R06.00] Diagnosis: Unsteadiness on feet[ICD10: R26.81] Elizabeth Sow MD [facility] CPT-4: 98782 08/30/2017 ([id number]) 91363 EST. PATIENT, LEVEL IV Diagnosis: Type 2 diabetes mellitus without complications[ICD10: E11.9] Diagnosis: Essential (primary) hypertension[ICD10: I10] Kate Sow MD [facility] CPT-4: 98225 08/15/2017 ([id number]) 49940 EST. PATIENT, LEVEL IV Diagnosis: Type 2 diabetes mellitus without complications[ICD10: E11.9] Diagnosis: Essential (primary) hypertension[ICD10: I10] Diagnosis: Unsteadiness on feet[ICD10: R26.81] Kate Sow MD [facility] CPT-4: 90721 06/15/2017 ([id number]) Miscellaneous no charge Diagnosis: Essential (primary) hypertension[ICD10: I10] Laney Sow MD [facility] CPT-4: 52095 05/29/2017 ([id number]) 74027 EST. PATIENT, LEVEL IV Diagnosis: Type 2 diabetes mellitus without complications[ICD10: E11.9] Diagnosis: Essential (primary) hypertension[ICD10: I10] Diagnosis: Mixed hyperlipidemia[ICD10: E78.2] Kate Sow MD [facility] CPT-4: 96721 05/11/2017 ([id number]) 43891 EST. PATIENT, LEVEL IV Diagnosis: Type 2 diabetes mellitus without complications[ICD10: E11.9] Diagnosis: Essential (primary) hypertension[ICD10: I10] Kate Sow MD [facility] CPT-4: 71461 01/05/2017 ([id number]) 88228 EST. PATIENT, LEVEL III Diagnosis: Essential (primary) hypertension[ICD10: I10] Kate Sow MD [facility] CPT-4: 32222 09/20/2016 ([id number]) 15604 EST. PATIENT, LEVEL III Diagnosis: Essential (primary) hypertension[ICD10: I10] Laney Sow MD [facility] CPT-4: 37136 09/01/2016 ([id number]) Miscellaneous no charge Diagnosis: Impacted cerumen, right ear[ICD10: H61.21] Elizabeth Sow MD [facility] CPT-4: 41760 06/08/2016 ([id number]) 14640 EST. PATIENT, LEVEL IV Diagnosis: Type 2 diabetes mellitus without complications[ICD10: E11.9] Diagnosis: Essential (primary) hypertension[ICD10: I10] Diagnosis: Encounter for immunization[ICD10: Z23] Kate Sow MD, [facility] CPT-4: 77534 06/02/2016 72350 EST. PATIENT, LEVEL III Diagnosis: Essential (primary) hypertension[ICD10: I10] Diagnosis: Other specified cardiac arrhythmias[ICD10: I49.8] Elizabeth Sow MD, [facility] CPT-4: 84070 03/25/2016 ([id number]) 74750 EST. PATIENT, LEVEL IV Diagnosis: Type 2 diabetes mellitus without complications[ICD10: E11.9] Diagnosis: Essential (primary) hypertension[ICD10: I10] Kate Sow MD, [facility] CPT-4: 02570 01/26/2016 ([id number]) 08270 EST. PATIENT, LEVEL IV Diagnosis: Essential (primary) hypertension[ICD10: I10] Diagnosis: Type 2 diabetes mellitus without complications[ICD10: E11.9] Kate Sow MD, [facility] CPT-4: 28918 10/29/2015 ([id number]) 93197 EST. PATIENT, LEVEL IV Diagnosis: Essential (primary) hypertension[ICD10: I10] Diagnosis: Dyspnea, unspecified[ICD10: R06.00] Kate Sow MD, [facility] CPT-4: 86609 07/21/2015 ([id number]) 66633 EST. PATIENT, LEVEL III Diagnosis: Edema, unspecified[ICD10: R60.9] Kate Sow MD, [facility] CPT-4: 35203 07/08/2015 ([id number]) OFFICE VISIT, NEW - LEVEL 4 Diagnosis: ESSENTIAL HYPERTENSION[ICD9: 401.9] Diagnosis: DIABETES TYPE II[ICD9: 250.00] [facility] CPT- 4: 77568 05/04/2015 Plan of Care Planned Activity Notes Codes Status Date Visit Plan: Hypertension - well controlled at the [place]- continue with current medications, continue with no added salt diet. Pt has been encouraged to exercise daily. The pt has been advised to call the office if there are any acute concerns about change in blood pressure readings at home. Edema - pt has been advised to elevate legs to prevent dependent edema, compression has been recommended to help to naturally decrease peripheral edema. Diabetes Mellitus - controlled - per recent [...] readings are starting to become less controlled. Pt had a low blood glucose in the office today - her meals at breakfast have not been including protein - I have recommended that she needs to eat an egg, or tran or sausage at breakfast as she had a blood glucose of 32 in the office today. 12/10/2018 Patient Education: Patient Medication Summary Completed 12/10/2018 Patient Education: Diabetes Completed 12/10/2018 Visit Plan: Hypertension - well controlled - continue with current medications, continue with no added salt diet. Pt has been encouraged to exercise daily. The pt has been advised to call the office if there are any acute concerns about change in blood pressure readings at home. DM - improved control - monitor symptoms - pt's wire temperer recently changed the dose of medication and she has had a few low blood glucose readings. Weakness- continue with therapy. 10/08/2018 Appointment: Kate Sow WPtel: [phone] [facility] (15 min) Moderate 10/08/2018 Patient Education: Patient Medication Summary Completed 10/08/2018 Patient Education: Hypertension Completed 10/08/2018 Visit Plan: URI - Pt advised to increase fluids, vitamin C. Discussed natural and expected course of this diagnosis and need to alert me if symptoms do not follow expected course, or if any worse. RX sent to patient' s pharmacy. Sinusitis - Pt has acute infection - pain in face, maxillary region , Pt informed to use decongestant, RX given to patient, sinus rinses also recommended. Call if symptoms do not show improvement. Edema - pt has been advised to elevate legs to prevent dependent edema, compression has been recommended to help to naturally decrease peripheral edema. Diuretic use has been discussed and pt has been instructed in appropriate use of such medication as necessary to further attempt to reduce peripheral edema. 09/25/2018 Appointment: Elizabeth Milner WPtel: [phone] [phone] (15 min) Moderate 09/25/2018 Patient Education: Patient Medication Summary Completed 09/25/2018 Visit Plan: Edema - pt has been advised to elevate legs to prevent dependent edema, compression has been recommended to help to naturally decrease peripheral edema. Diuretic use has been discussed and pt has been instructed in appropriate use of such medication as necessary to further attempt to reduce peripheral edema. 09/14/2018 Appointment: Elizabeth Milner WPtel: [facility] (15 min) Moderate 09/14/2018 Patient Education: Patient Medication Summary Completed 09/14/2018 Visit Plan: Hypertension - well controlled at the [place]- continue with current medications, continue with no added salt diet. Pt has been encouraged to exercise daily. The pt has been advised to call the office if there are any acute concerns about change in blood pressure readings at home. Edema - pt has been advised to elevate legs to prevent dependent edema, compression has been recommended to help to naturally decrease peripheral edema. Diuretic use has been discussed and pt has been instructed in appropriate use of such medication as necessary to further attempt to reduce peripheral edema. DM-blood sugars improved-continue with current management-no changes at this time. 09/04/2018 Appointment: Laney Mcmillan WPtel: [facility]5 [phone] (30 min) Complex 09/04/2018 Patient Education: Patient Medication Summary Completed 09/04/2018 Patient Education: Diabetes Completed 09/04/2018 Appointment: Laney Mcmillan WPtel: [phone] [phone] [place] (15 min) Moderate 08/28/2018 Visit Plan: Hypertension - The patient has [...] or concerns. 08/17/2018 Appointment: [facility]el[phone] (15 min) Moderate 08/17/2018 Patient Education: Patient [...] to call for acute concerns. 08/08/2018 Appointment: [facility]el[phone] 30 min appointments only in this slot 08/08/2018 Patient Education: Patient Medication Summary Completed 08/08/2018 Patient Education: Diabetes Completed 08/08/2018 Appointment: [facility]ow [facility]Ptel[phone] [place] (15 min) Moderate 08/07/2018 Visit Plan: [...] control. 07/17/2018 Appointment: [facility]Ptel[phone] (15 min) Moderate 07/17/2018 Patient Education: Patient [...] control. 06/26/2018 Appointment: [facility]el[phone] [place] (15 min) Moderate 06/26/2018 Patient Education: Patient Medication Summary Completed 06/26/2018 Patient Education: Diabetes Completed 06/26/2018 Visit Plan: Diabetes improved control while at the custodial - discussed with patient and her hirale [...] Living. 06/21/2018 Appointment: Kate Sow [facility]Ptel: [phone] (15 min) Moderate 06/21/2018 Patient Education: Patient Medication Summary Completed 06/21/2018 Patient Education: Diabetes Completed 06/21/2018 Appointment: Kate Sow WPtel: [facility] [place] (15 min) Moderate 05/09/2018 Visit Plan: [...] sleep better. 05/02/2018 Appointment: Kate Sow WPtel: [facility] [place] (15 min) Moderate 05/02/2018 Patient Education: Patient Medication Summary Completed 05/02/2018 Care Plan: X-RAY EXAM L-S SPINE 2/3 VWS LOINC : 48420-2 Pending 05/02/2018 Visit Plan: Low back pain- the patient was instructed in appropriate posture - The pt is to use prn antiinflammatories to manage acute pain. The patient is to call the office if the pain is worsening or does not improve. 04/27/2018 Appointment: Elizabeth Milner WPtel: [facility]5 [facility] (15 min) Moderate 04/27/2018 Patient Education: Patient Medication Summary Completed 04/27/2018 Visit Plan: Double vision-suspect due to elevated blood sugars -recommend patient bring in log of blood sugars to next appt -notify wire temperer of elevated readings and watch diet closely -also recommend f/u with eye doctor Rash-suspect shingles-rx for acyclovir provided and instructed on use 04/20/2018 Appointment: Laney Mcmillan WPtel: [phone] [phone] (15 min) Moderate 04/20/2018 Patient Education: Patient [...] they worsen. 04/12/2018 Appointment: Elizabeth Milner WPtel: [facility] (15 min) Moderate 04/12/2018 Patient Education: Patient [...] controlled. 04/10/2018 Appointment: Kate Sow WPtel: [phone] [facility]6[address] (15 min) Moderate 04/10/2018 Patient Education: [...] acute concerns. 04/03/2018 Appointment: Laney Mcmillan WPtel: [phone] [phone] [place] (15 min) Moderate 04/03/2018 Patient Education: [...] home. 03/13/2018 Appointment: Kate Sow WPtel: [phone] (15 min) Moderate 03/13/2018 Patient Education: [...] diet. 02/01/2018 Appointment: Kate [facility]ow [facility]Ptel: [phone] (15 min) Moderate 02/01/2018 Patient Education: [...] daily. 01/18/2018 Appointment: Kate Sow WPtel: [phone] [facility] (15 min) Moderate 01/18/2018 Patient Education: Patient Medication Summary Completed 01/18/2018 Appointment: Kate Sow WPtel: [phone] [facility] [place] (15 min) Moderate 01/11/2018 Appointment: Kate Sow WPtel: 101 [facility] [place] (15 min) Moderate 12/25/2017 Visit [...] control. 10/10/2017 Appointment: Elizabeth Mil[facility] WPtel: [phone] [facility] (15 min) Moderate 10/10/2017 Patient Education: Patient [...] home. 09/07/2017 Appointment: Elizabeth Milner WPtel: [phone] [facility] (30 min) Complex 09/07/2017 Patient Education: Patient Medication Summary Completed 09/07/2017 Appointment: Kate Sow WPtel: [phone] (15 min) Moderate 09/05/2017 Visit Plan: Hospital follow up - Dr. Sow in to see pt - pt was in the hospital with uncontrolled hypertension and a. fib - controlled at this time - persistent weakness requiring ongoing PT and assistance with some ADLs and medication management - will admit pt to halfway facility for ongoing rehabilitation. 08/30/2017 Appointment: Elizabeth Milner WPtel: [facility] [place] (30 min) Complex 08/30/2017 Patient Education: Patient Medication Summary Completed 08/30/2017 Appointment: Elizabeth Milner WPtel: [phone] [facility] (15 min) Moderate 08/29/2017 Visit Plan: Diabetes [...] at home. 08/15/2017 Appointment: Kate Sow WPtel: [phone] [facility]6[address] (15 min) Moderate 08/15/2017 Patient Education: Patient Medication Summary Completed 08/15/2017 Care Plan: %Hba1C LOINC : 53150-4 Cancelled 08/15/2017 Referral: [facility] WPtel: [phone] [facility]66[facility] Patient's informed. Completed 06/26/2017 Visit [...] control. Gait Instability - referral to [facility] physical therapy for gait instability. Hypertension - well controlled - continue with current medications , continue with no added salt diet. Pt has been encouraged to exercise daily. The pt has been advised to call the office if there are any acute concerns about change in blood pressure readings at home. 06/15/2017 Appointment: Kate Sow WPtel: [phone] [facility]6[address] (15 min) Moderate 06/15/2017 Patient Education: Patient Medication Summary Completed 06/15/2017 Care Plan: Referral Order SNOMED-CT : [id number] Pending 06/15/2017 Appointment: Nurse Visit 05/29/2017 Patient [...] and come in here or go to [facility] or [facility] to get [...] Statin 05/11/2017 Appointment: Kate Sow WPtel: [phone] pill daily. 01/05/2017 Appointment: Kate Sow WPtel: [phone] [facility] (15 min) Moderate 01/05/2017 Patient Education: Patient [...] home. 09/20/2016 Appointment: Kate Sow WPtel: [phone] [facility] (30 min) Complex 09/20/2016 Patient Education: Patient [...] concerns. 09/01/2016 Appointment: Laney Mcmillan WPtel: [phone] [phone] [place] (30 min) Complex 09/01/2016 Patient Education: Patient Medication Summary Completed 09/01/2016 Appointment: Kate Sow WPtel: [phone] [place] (15 min) Moderate 08/31/2016 Appointment: Nurse [...] controlled. 06/02/2016 Appointment: Kate Sow WPtel: [phone] [facility] (15 min) Moderate 06/02/2016 Patient Education: Patient Medication Summary Completed 06/02/2016 Patient Education: Hypertension Completed 06/02/2016 Visit Plan: Bradycardia - reports pt has brought in indicates that the pt has been having a pulse in the 40s-50s. Will adjust medications, pt is to notify clinic if her symptoms do not improve, or with any concerns. 03/25/2016 Appointment: Laney Mcmillan WPtel: [phone] [phone] (10 min) Simple 03/25/2016 Patient Education: Patient [...] DM - managed by Dr. Johnson from [place] 01/26/2016 Patient Education: Patient Medication Summary Completed 01/26/2016 Patient Education: Hypertension Completed 01/26/2016 Appointment: Laney Mcmillan WPtel: [phone] [phone] (30 min) Complex 12/31/2015 Visit Plan: Hypertension [...] controlled. 10/29/2015 Appointment: Kate Sow WPtel: [phone] [facility] (15 min) Moderate 10/29/2015 Patient Education: Patient Medication Summary Completed 10/29/2015 Patient Education: Hypertension Completed 10/29/2015 Appointment: Kate Sow WPtel: [phone] (15 min) Moderate 09/14/2015 Visit Plan: [...] today, as soon as you get to [place], monday morning, then start taking the lasix [...] handout Begin using muscle rub on back (Cameron balm) 05/04/2015 Appointment: Kate Sow WPtel: [phone] [facility] [place] (S) New Patient 05/04/2015 Patient Education: Patient Medication Summary Completed 05/04/2015 Patient Education: Hypertension Completed 05/04/2015 Referral: [facility] WPtel: [phone] [facility]66[facility] Referral Appointment Requested Instructions Comment see if Dr. Johnson has the toujeo samples for you - if not , go to the pharmacy to sweet pickle maker the toujeo script. if the [...] glucose control. G[facility]ability [facility]. Hypertension - [...] blood pressure readings at home. DM - improved control - monitor symptoms - pt's wire temperer recently changed the dose of medication and she has had a few low blood glucose readings. Weakness- continue with therapy. . Hypertension - well controlled - continue [...] readings are starting to become less controlled. steroid shot today stop doxy and start augmentin portable chest x-ray today probiotic while on the antibiotic increase lasix to 40mg daily x 3 days and potassium 20meq daily x 3 days.. URI - Pt advised to increase fluids, vitamin C. Discussed natural and expected course of this diagnosis and need to alert me if symptoms do not follow expected course, or if any worse. RX sent to patient's pharmacy. Sinusitis - Pt has acute infection - pain in face, maxillary region, Pt informed to use decongestant, RX given to patient, sinus rinses also recommended. Call if symptoms do not show improvement. Edema - pt has been advised to elevate legs to prevent dependent edema, compression has been recommended to help to naturally decrease peripheral edema. Diuretic use has been discussed and pt has been instructed in appropriate use of such medication as necessary to further attempt to reduce peripheral edema. . Diabetes Mellitus - I have recommended [...] of blood sugars to next appt -notify wire temperer of elevated readings and watch diet closely [...] pt to halfway facility for ongoing rehabilitation. . Bradycardia - reports pt has brought in indicates that the pt has been having a pulse in the 40s-50s. Will adjust medications, pt is to notify clinic if her symptoms do not improve, or with any concerns. give lasix and potassium daily x 5 days then daily prn weight gain 2# . Hypertension - well controlled at the [place]- continue with current medications, continue with no added salt diet. Pt has been encouraged to exercise daily. The pt has been advised to call the office if there are any acute concerns about change in blood pressure readings at home. Edema - pt has been advised to elevate legs to prevent dependent edema, compression has been recommended to help to naturally decrease peripheral edema. Diuretic use has been discussed and pt has been instructed in appropriate use of such medication as necessary to further attempt to reduce peripheral edema. DM-blood sugars improved-continue with current management-no changes at this time. Increase losartan to 100mg daily come in [...] glucose control. . Hypertension - well controlled at the [place]- continue with current medications, continue with no added salt diet. Pt has been encouraged to exercise daily. The pt has been advised to call the office if there are any acute concerns about change in blood pressure readings at home. Edema - pt has been advised to elevate legs to prevent dependent edema, compression has been recommended to help to naturally decrease peripheral edema. Diabetes Mellitus - controlled - per recent [...] readings are starting to become less controlled. Pt had a low blood glucose in the office today - her meals at breakfast have not been including protein - I have recommended that she needs to eat an egg, or tran or sausage at breakfast as she had a blood glucose of 32 in the office today. . Diabetes Mellitus - Uncontrolled - per [...] DM - managed by Dr. Johnson from [place] . Low back pain- the patient was [...] and come in here or go to [email or web address] or [facility] to get this set [...] and come in here or go to [email or web address] or [facility] to get this set [...] . Diabetes improved control while at the custodial - discussed with patient and her hirale [...] handout Begin using muscle rub on back (Cameron balm) Begin taking Lasix again No blood [...] handout Begin using muscle rub on back (Cameron balm) . Edema - pt has been advised to elevate legs to prevent dependent edema, compression has been recommended to help to naturally decrease peripheral edema. Diuretic use has been discussed and pt has been instructed in appropriate use of such medication as necessary to further attempt to reduce peripheral edema. . Diabetes Mellitus - improved control- per [...]
--- NOTE | 2018-12-26 07:10 | ED Chest Pain ---
General Stated Complaint: CP Source: patient Exam Limitations: physical impairment (hard of hearing) History of Present Illness Date Seen by Provider: Dec 26, 2018 Time Seen by Provider: 06:51 Initial Comments Here with report of upper chest pain on the left and left arm tingling that lasted briefly and then went away. She apparently was having a difficult time sleeping last night was sleeping on the couch. She got onto the bed when she has the pain and numbness. She resides at a care home. She notified staff and then summoned EMS. Pain was gone on their arrival and remains resolved currently. Denies breathing problems or nausea. Patient is very hard of hearing and it is difficult to ascertain review of systems. Patient states that she feels fine now. Timing/Duration: resolved prior to arrival Severity/Quality: moderate, aching, other (tingling) Location: central Radiation: arms (left) Activities at Onset: none Prior CP/Workup: cardiac cath, echocardiography, stress test ASA po FAIRING WORKER: No NTG SL FAIRING WORKER: No Associated Symptoms: No abdominal pain, No diaphoresis, No fever/chills, No nausea/vomiting, No shortness of breath, No weakness Allergies and Home Medications Allergies Coded Allergies: No Known Drug Allergies (Unverified , 03/17/18) Home Medications Amlodipine Besylate 10 Mg Tablet, 10 MG PO HS, (Reported) Apixaban 2.5 Mg Tablet, 2.5 MG PO BID, (Reported) LAST FILLED #60 05-05-18 Aspirin 81 Mg Tablet.dr, 81 MG PO DAILY, (Reported) Diclofenac Sodium 100 Gm Gel..gram., TOP QID PRN for ARTHRITIS PAIN, (Reported) Dronedarone HCl 400 Mg Tablet, 400 MG PO BID, (Reported) Furosemide 20 Mg Tablet, 20 MG PO DAILY PRN for SWELLING, (Reported) Insulin Aspart 300 Units/3 Ml Solution, 1 UNIT SC AC 80-120 = 0 UNITS 120 -150 = 5 UNITS 151-200 = 10 UNITS 201-300 = 15 UNITS > 300 = 20 UNITS Prescribed by: JONN YAO on 08/28/18 1018 Insulin Glargine,Hum.rec.anlog 300 Unit/1 Ml Insuln.pen, 20 UNIT SQ HS, ( Reported) L.acidoph & Paracasei,B.lactis 1 Each Capsule, 1 CAP PO TID, (Reported) Levofloxacin 250 Mg Tablet, PO UD, (Reported) 7 DAY SUPPLY FILLED 08-20-18 TAKE 2 (250MG) TABS DAY 1 THEN TAKE 1 (250MG) TAB DAYS 2-7 Losartan Potassium 100 Mg Tablet, 100 MG PO DAILY, (Reported) LAST FILLED #90 04-03-18 Metoprolol Succinate 50 Mg Tab.er.24h, 50 MG PO DAILY, (Reported) Potassium Chloride 10 Meq Tablet.er, 10 MEQ PO DAILY PRN for WHEN TAKING FUROSEMIDE, (Reported) Ubidecarenone 50 Mg Tab.chew, 50 MG PO DAILY, (Reported) Patient Home Medication List Home Medication List Reviewed: Yes Review of Systems Review of Systems Constitutional: see HPI; No chills, No fever Respiratory: Denies Shortness of Air, Denies Wheezing Cardiovascular: Chest Pain; Denies Lightheadedness Gastrointestinal: Denies Abdominal Pain, Denies Nausea, Denies Vomiting Musculoskeletal: No back pain, No muscle weakness Other Comments Unable to complete review of systems due to hard of hearing although patient denies any specific complaints currently. Past Njljkfx-Ehcxlh-Fmtohp Hx Past Med/Social Hx: Reviewed Nursing Past Med/Soc Hx Patient Social History Alcohol Use: Denies Use Alcohol Beverage of Choice: Rum Recreational Drug Use: No Smoking Status: Never a Smoker 2nd Hand Smoke Exposure: No Recent Foreign Travel: No Contact w/Someone Who Travel: No Recent Hopitalizations: Yes (RELEASED FROM HOSP TODAY) Immunizations Up To Date Tetanus Booster (TDap): Unknown PED Vaccines UTD: No Date of Pneumonia Vaccine: Jun 18, 2017 Date of Influenza Vaccine: Aug 08, 2018 Seasonal Allergies Seasonal Allergies: No Past Medical History Surgeries: Yes (RIGHT FOOT SURGERY) Respiratory: No Currently Using CPAP: No Currently Using BIPAP: No Cardiac: Yes (STENTS, MONITOR PLACED BY DR. 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 Sexually Transmitted Disease: No HIV/AIDS: No Genitourinary: Yes ( KIDNEY DISEASE, recurrent urinary tract infection) Renal Failure Gastrointestinal: No Musculoskeletal: Yes Arthritis Endocrine: Yes Diabetes, Insulin dep HEENT: Yes Cataract Loss of Vision: Denies Hearing Impairment: Hard of Hearing, Bilateral Hearing Aide Cancer: No Psychosocial: No Integumentary: No Blood Disorders: No Adverse Reaction/Blood Tranf: No Family Medical History Reviewed Nursing Family Hx Alzheimer's disease 19 MOTHER, Arthritis 19 FATHER, 19 MOTHER, G8 BROTHER, G8 BROTHER, G8 BROTHER G8 SISTER G8 SISTER Cardiovascular disease 19 MOTHER, G8 BROTHER, Completed stroke 19 MOTHER, G8 SISTER Hypercholesterolemia 19 FATHER, G8 BROTHER, Hypertension 19 MOTHER, Myocardial infarction 19 FATHER, G8 BROTHER, Heart Disease, Diabetes, Hypertension, Stroke Physical Exam Vital Signs Vital Signs - First Documented 12/26/18 06:52 Temp 98.5 Pulse 52 Resp 18 B/P (MAP) 167/66 (99) Pulse Ox 52 O2 Delivery Room Air Capillary Refill : Height, Weight, BMI Height: 5'0.00" Weight: 126lbs. 1.0oz. [id number]; 24.6 BMI Method:Stated General Appearance: No Apparent Distress, WD/WN HEENT: PERRL/EOMI, Pharynx Normal Neck: Non Tender, Supple Respiratory: Lungs Clear, Normal Breath Sounds Cardiovascular: Regular Rate, Rhythm, No Murmur Gastrointestinal: Non Tender, Soft Extremity: Normal Inspection, Normal Range of Motion, Non Tender, No Calf Tenderness, No Pedal Edema Neurologic/Psychiatric: Alert, Oriented x3 Skin: Normal Color, Warm/Dry Progress/Results/Core Measures Results/Orders Lab Results Laboratory Tests Test 12/26/18 07:09 12/26/18 09:15 Range/Units White Blood Count 8.1 4.3-11.0 10^3/uL Red Blood Count 4.78 4.35-5.85 10^6/uL Hemoglobin 13.3 11.5-16.0 G/DL Hematocrit 42 35-52 % Mean Corpuscular Volume 88 80-99 FL Mean Corpuscular Hemoglobin 28 25-34 PG Mean Corpuscular Hemoglobin Concent 32 32-36 G/DL Red Cell Distribution Width 16.3 H 10.0-14.5 % Platelet Count 414 H 130-400 10^3/uL Mean Platelet Volume 10.4 7.4-10.4 FL Neutrophils (%) (Auto) 31 L 42-75 % Lymphocytes (%) (Auto) 50 H 12-44 % Monocytes (%) (Auto) 12 0-12 % Eosinophils (%) (Auto) 6 0-10 % Basophils (%) (Auto) 1 0-10 % Neutrophils # (Auto) 2.5 1.8-7.8 X 10^3 Lymphocytes # (Auto) 4.0 1.0-4.0 X 10^3 Monocytes # (Auto) 1.0 0.0-1.0 X 10^3 Eosinophils # (Auto) 0.5 H 0.0-0.3 10^3/uL Basophils # (Auto) 0.1 0.0-0.1 10^3/uL Prothrombin Time 14.8 H 12.2-14.7 SEC INR Comment 1.1 0.8-1.4 Activated Partial Thromboplast Time 33 24-35 SEC Sodium Level 141 135-145 MMOL/L Potassium Level 4.2 3.6-5.0 MMOL/L Chloride Level 111 H 98-107 MMOL/L Carbon Dioxide Level 24 21-32 MMOL/L Anion Gap 6 5-14 MMOL/L Blood Urea Nitrogen 29 H 7-18 MG/DL Creatinine 1.39 H 0.60-1.30 MG/DL Estimat Glomerular Filtration Rate 36 BUN/Creatinine Ratio 21 Glucose Level 93 70-105 MG/DL Calcium Level 10.0 8.5-10.1 MG/DL Corrected Calcium 10.3 H 8.5-10.1 MG/DL Magnesium Level 2.2 1.8-2.4 MG/DL Total Bilirubin 0.3 0.1-1.0 MG/DL Aspartate Amino Transf (AST/SGOT) 47 H 5-34 U/L Alanine Aminotransferase (ALT/SGPT) 55 0-55 U/L Alkaline Phosphatase 112 40-136 U/L Myoglobin 163.3 H 10.0-92.0 NG/ML Troponin I < 0.028 < 0.028 <0.028 NG/ML Total Protein 6.6 6.4-8.2 GM/DL Albumin 3.6 3.2-4.5 GM/DL My Orders Orders - HOSSEIN LEI MD Cbc With Automated Diff (12/26/18 06:57) Magnesium (12/26/18 06:57) Chest 1 View, Ap/Pa Only (12/26/18 06:57) Ekg Tracing (12/26/18 06:57) Cardiac Profile 1 (12/26/18 06:57) Comprehensive Metabolic Panel (12/26/18 06:57) Myoglobin Serum (12/26/18 06:57) Protime With Inr (12/26/18 06:57) Partial Thromboplastin Time (12/26/18 06:57) O2 (12/26/18 06:57) Monitor-Rhythm Ecg Trace Only (12/26/18 06:57) Lipid Panel (12/27/18 06:00) Ed Iv/Invasive Line Start (12/26/18 06:57) Aspirin Chewable Tablet (Baby Aspirin Ch (12/26/18 07:00) Ns Iv 500 Ml (Sodium Chloride 0.9%) (12/26/18 07:54) Troponin I (12/26/18 08:53) Medications Given in ED Current Medications Medications Dose Ordered Sig/Thee Route Start Time Stop Time Status Last Admin Dose Admin Aspirin 324 mg ONCE ONCE PO 12/26/18 07:00 12/26/18 07:01 DC 12/26/18 07:06 324 MG Sodium Chloride 500 ml @ 0 mls/hr Q0M ONCE IV 12/26/18 07:54 12/26/18 07:55 DC 12/26/18 07:56 500 MLS/HR Vital Signs/I&O 12/26/18 12/26/18 06:52 08:14 Temp 98.5 Pulse 52 49 Resp 18 18 B/P (MAP) 167/66 (99) 158/62 (94) Pulse Ox 52 95 O2 Delivery Room Air Room Air Progress Progress Note : Progress Note Seen and evaluated. IV, labs, EKG and chest x-ray ordered. ASA 324 mg by mouth ordered. Monitor patient. 0900: Remains pain free. No significant acute findings. Some congestion on x-ray but no fever and no elevation of white count. We will recheck troponin. Patient remains bradycardic in the rate of 50 on the monitor without distress. 0952: Repeat troponin are negative and still without chest pain. I did discuss with the family. All agree that she is okay for discharge home. Discharged home with return precautions. Patient and family verbalize understanding instructions and agreement with plan Initial ECG Impression Date: Dec 26, 2018 Initial ECG Impression Time: 06:56 Initial ECG Rate: 50 Initial ECG Rhythm: Normal Sinus Comment Sinus rhythm with bradycardia rate. Normal axis. No evidence of ST elevation LA. Similar to previous of 08/21/18. Interpreted by me. Diagnostic Imaging Diagonstic Imaging: Xray Plain Films/CT/US/NM/MRI: chest Comments [facility], [facility]. [place], [place] NAME: ABBIE JENKINS [facility] REC#: [id number] PT STATUS: REG ER : 1930 PHYSICIAN: HOSSEIN LEI MD ADMIT DATE: 12/26/18/ER Draft Date of Exam:12/26/18 CHEST 1 VIEW, AP/PA ONLY PATIENT HISTORY: Chest pain. TECHNIQUE: Frontal view of the chest. COMPARISON: 08/28/2018. FINDINGS: Lung volumes are mildly large. There are diffuse interstitial opacities which appear increased compared to the prior study. The cardiac silhouette is upper normal in size. There is aortic atherosclerosis. No pneumothorax or pleural effusion is seen. No acute osseous abnormality seen. A desk monitor is noted. IMPRESSION: 1. Diffuse interstitial opacities appear increased compared to the prior exam, may be due to mild interstitial edema. Dictated on workstation # [id number] Dict: 12/26/18 0831 Trans: 12/26/18 0838 [facility] [id number] Interpreted by: ZULMA EDWARDS MD Electronically signed by: Departure Impression Primary Impression: Chest pain Qualified Codes: R07.9 - Chest pain, unspecified Disposition: 01 HOME, SELF-CARE Condition: Improved Departure-Patient Inst. Decision time for Depature: 09:53 Referrals: JONN YAO MD (PCP/Family) Primary Care Physician TAMMIE RIVAS MD Patient Instructions: Chest Pain (DC) Add. Discharge Instructions: Continue home medications as previously prescribed. You should follow up with Dr. Rivas within one week for recheck and further evaluation. You may also follow up with your primary care physician as well. Return for worsening, fever , vomiting, weakness, breathing problems or other concerns as needed. Copy Copies To 1: JONN YAO MD Copies To 2: TAMMIE RIVAS MD, TIMOTHY D MD Dec 26, 2018 07:10
--- OUTSIDE RECORDS SUMMARY | 2018-12-26 07:11 | XMS REPORT | CCD ---
Author Author [facility] Organization [facility] Address [address] [place] [address] Phone Care Team Providers Care System Administration Advisor Name Role Phone PP Unavailable CCM Unavailable Summary Purpose Interface Exchange Insurance Providers Payer name Policy type / Coverage type Covered constitution party ID Effective Begin Date Effective End Date WPS Medicare Part B Medicare Part B [id number] Unknown Unknown [employer] Medicare Part B [id number] Unknown Unknown Family history Mother Diagnosis Age [...] Unknown 2 05/04/[address]: [id number] Never smoker 05/04/2015 Alcohol history Unknown occasionally drinks alcohol 05/04/2015 Allergies, Adverse Reactions, Alerts Substance Reaction Codes Entered Date Inactivated Date Status * NO KNOWN DRUG ALLERGIES Unknown 07/08/2015 No Inactive Date Active Past Medical History Illness Codes Condition Status Onset Date Resolved Date Essential (primary) hypertension ICD-9: 401.9 ICD-10: I10 Active 08/31/2016 Unknown Cough ICD-9: 786.2 ICD-10: R05 Active 09/25/2018 Unknown Localized edema ICD-9 : 782.3 ICD-10: R60.0 Active 06/21/2018 Unknown Other acute sinusitis ICD-9: 461.8 ICD-10: J01.80 Active 09/25/2018 Unknown Other allergic rhinitis ICD-9: 477.8 ICD-10: J30.89 Active 09/25/2018 Unknown Essential (primary) hypertension ICD-9: 401.1 ICD-10: I10 Active 09/20/2016 Unknown Type 2 diabetes mellitus with hyperglycemia ICD-9: 250.02 ICD-10: E11.65 Active 12/21/2017 Unknown Myalgia, other site ICD-9: 729.1 ICD-10: [...] Cough ICD-9: 786.2 ICD-10: R05 09/25/2018 Active Localized edema ICD-9 : 782.3 ICD-10: R60.0 06/21/2018 Active Other acute sinusitis ICD-9: 461.8 ICD-10: J01.80 09/25/2018 Active Other allergic rhinitis ICD-9: 477.8 ICD-10: J30.89 09/25/2018 Active Essential (primary) hypertension ICD-9: 401.1 ICD-10: I10 09/20/2016 Active Type 2 diabetes mellitus with hyperglycemia ICD-9: 250.02 ICD-10: E11.65 12/21/2017 Active Myalgia, other site ICD-9: 729.1 ICD-10: [...] Fill Instructions Lasix 20 mg tablet RxNorm: 563884 1 Tablet(s) PO daily as needed edema 11/29/2018 01/27/2019 Active Novolog U-100 Insulin aspart 100 unit/mL subcutaneous solution RxNorm: 488608 see pharm instruction note Unit(s) SQ AC & HS as needed 10/08 No Stop Date Active if BS <80 eat 15 gram carbs and repeat BS in 15 min.BS 90-120 and eating given 2 unitsBS 121-150 5 unitsBS 151-200 8 unitsBS 201-250 11 unitsBS 251-300 14 unitsBS > 300 17 units and call provider Kenalog 40 mg/mL suspension for injection RxNorm: 8963042 1 Milliliter(s) Inj 09/25/2018 09/25/2018 Inactive Augmentin 500 mg-125 mg tablet RxNorm: 376994 1 Tablet(s) PO TID 09/25/2018 10/04/2018 Inactive Toujeo SoloStar U-300 Insulin 300 unit/mL (1.5 mL) subcutaneous pen RxNorm: 8539897 20 Unit(s) SQ QHS MANAGED BY DR. JOHNSON 2017 No Stop Date Active Voltaren 1 % topical gel RxNorm: 313993 APPLY THIN LAYER TOPICALLY TO AFFECTED AREA 4 TIMES DAILY 08/24/2018 No Stop Date Active Levaquin 250 mg tablet RxNorm: 802277 2 tabs on 1st day then 1 tab day 2-7 Tablet( s) PO daily 08/20/2018 09/03/2018 Inactive dc keflex Levaquin 250 mg tablet RxNorm: 679354 2 tabs on 1st day then 1 tab day 2-7 Tablet( s) PO daily 08/20/2018 08/19/2018 Inactive dc keflex Keflex 500 mg capsule RxNorm: 035411 1 Capsule(s) PO TID 201708/19/2018 Inactive Tourutho SoloStar U-300 Insulin 300 unit/mL (1.5 mL) subcutaneous pen RxNorm: 9152249 25 Unit(s) SQ QHS MANAGED BY DR. JOHNSON 201709/03/2018 Inactive Norvasc 10 mg tablet RxNorm: 653569 1 Tablet(s) PO daily 201701/25/2019 Active update RX Eliquis 2.5 mg tablet RxNorm: 6481753 Tablet(s) PO TAKE ONE TABLET BY MOUTH TWICE DAILY 06/21/2018 06/15/2019 Active cyclobenzaprine 5 mg tablet RxNorm: 268353 1/2 Tablet(s) PO BID as needed muscle spasms/back pain 05/02/2018 05/31/2018 Inactive tramadol 50 mg tablet RxNorm: 160606 1 Tablet(s) PO TID as needed for pain 04/27/2018 05/01/2018 Inactive Voltaren 1 % topical gel RxNorm: 355967 1 Application TOP QID 04/27/2018 08/23/2018 Inactive acyclovir 400 mg tablet RxNorm: 190093 2 Tablet(s) PO QID 04/2006/20/2018 Inactive mupirocin 2 % topical ointment RxNorm: 082557 1 Application TOP BID 04/20/2018 04/29/2018 Inactive right cheek/nose gentamicin 0.3 % eye drops RxNorm: 078348 2 Drop(s) ophthalmic (eye) left eye Q8 04/16/2018 09/03/2018 Inactive prednisone 20 mg tablet RxNorm: 948964 2 Tablet(s) PO daily 04/12/2018 Inactive prednisone 20 mg tablet RxNorm: 884727 2 Tablet(s) PO daily 04/17/2018 Inactive Kenalog 40 mg/mL suspension for injection RxNorm: 1685019 1 Milliliter(s) Inj 04/12/2018 04/12/2018 Inactive losartan 100 mg tablet RxNorm: 965189 1 Tablet(s) PO QAM 201712/28/2018 Active update RX -dose should be 100mg Norvasc 5 mg tablet RxNorm: 978012 1 Tablet(s) PO daily 201707/29/2018 Inactive update RX losartan 50 mg tablet RxNorm: 458662 TAKE ONE TABLET BY MOUTH ONCE DAILY IN THE MORNING 03/26/2018 04/02/2018 Inactive Humalog U-100 Insulin 100 unit/mL subcutaneous solution RxNorm: 101902 15 Unit(s) SQ AC MANAGED BY DR. JOHNSON 03/13/2018 No Stop Date Active 201- 200 17 units, greater than 300 21 units Toujeo SoloStar U-300 Insulin 300 unit/mL (1.5 mL) subcutaneous pen RxNorm: 9035246 20 Unit(s) SQ QHS MANAGED BY DR. JOHNSON 201707/10/2018 Inactive losartan 100 mg tablet RxNorm: 068957 1 Tablet(s) PO QAM 201704/02/2018 Inactive pantoprazole 40 mg tablet,delayed release RxNorm: 631129 1 Tablet(s) PO daily 01/11/2018 07/19/2018 Inactive carvedilol 12.5 mg tablet RxNorm: 750983 1 Tablet(s) PO BID 07/19/2018 Inactive Toujeo SoloStar U-300 Insulin 300 unit/mL (1.5 mL) subcutaneous pen RxNorm: 4139848 15 Unit(s) SQ QHS MANAGED BY DR. JOHNSON 201703/12/2018 Inactive Multaq 400 mg tablet RxNorm: 887626 1 Tablet(s) PO BID 201712/14/2018 Active potassium chloride ER 10 mEq tablet,extended release RxNorm: 796817 1 Tablet(s) PO daily while on the Lasix 10/18/201701/2018 Inactive losartan 50 mg tablet RxNorm: 588855 1 Tablet(s) PO QAM 201601/17/2018 Inactive Lasix 20 mg tablet RxNorm: 341913 1 Tablet(s) PO daily 201610/03/2017 Inactive potassium chloride ER 10 mEq tablet,extended release RxNorm: 168130 1 Tablet(s) PO daily while on the Lasix 08/30/2017 Inactive Toujeo SoloStar 300 unit/mL (1.5 mL) subcutaneous insulin pen RxNorm: 8821985 35 Unit(s) SQ QHS MANAGED BY DR. JOHNSON 06/15/2017 10/12/2017 Inactive Eliquis 5 mg tablet RxNorm: 9193513 TAKE ONE TABLET BY MOUTH TWICE DAILY 03/01/2017 02/23/2018 Inactive Januvia 100 mg tablet RxNorm: 069724 1/2 Tablet(s) PO daily 07/19/2018 Inactive losartan 50 mg tablet RxNorm: 405792 1 Tablet(s) PO BID 201509/13/2017 Inactive amlodipine 10 mg tablet RxNorm: 827484 1 Tablet(s) PO daily 06/14/2017 Inactive generic for NORVASC losartan 50 mg tablet RxNorm: 939001 1 Tablet(s) PO daily 201508/31/2016 Inactive Toujeo SoloStar 300 unit/mL (1.5 mL) subcutaneous insulin pen RxNorm: 8218079 40 Unit(s) SQ QHS MANAGED BY DR. JOHNSON 07/01/2016 06/14/2017 Inactive Toujeo SoloStar 300 unit/mL (1.5 mL) subcutaneous insulin pen RxNorm: 1942001 35 Unit(s) SQ QHS MANAGED BY DR. JOHNSON 06/02/2016 06/30/2016 Inactive Humalog 100 unit/mL subcutaneous solution RxNorm: 681565 15 Unit(s) SQ AC MANAGED BY DR. JOHNSON 06/02/2016 03/12/2018 Inactive carvedilol 3.125 mg tablet RxNorm: 595269 1 Tablet(s) PO BID 04/23/2016 Inactive simvastatin 40 mg tablet RxNorm: 680985 1 Tablet(s) PO QHS 07/19/2018 Inactive Humalog 100 unit/mL subcutaneous solution RxNorm: 651225 13 Unit(s) SQ AC MANAGED BY DR. JOHNSON 01/26/2016 06/01/2016 Inactive Eliquis 5 mg tablet RxNorm: 4410265 1 Tablet(s) PO BID 201501/13/2017 Inactive carvedilol 6.25 mg tablet RxNorm: 829578 1 Tablet(s) PO BID 2016 Inactive Humalog 100 unit/mL subcutaneous solution RxNorm: 189639 Unit(s) SQ UD as directed by office 08/07/2015 01/25/2016 Inactive Klor-Con 10 mEq tablet,extended release RxNorm: 385029 1 Tablet(s) PO daily as needed 06/26/2015 10/23/2015 Inactive Lasix 20 mg tablet RxNorm: 386112 1 Tablet(s) PO daily as needed 06/26/2015 10/23/2015 Inactive metoprolol succinate ER 50 mg tablet,extended release 24 hr RxNorm: 540095 1 Tablet(s) PO daily No Start Date Active melatonin 3 mg tablet RxNorm: 632039 1 Tablet(s) PO QHS as needed insomnia No Start Date Active aspirin 81 mg capsule,delayed release RxNorm: 402388 1 Capsule(s) PO daily No Start Date Active Co Q-10 50 mg capsule RxNorm: 985482 1 Capsule(s) PO daily No Start Date Active Culturelle Pro[employer]otics 10 billion cell-200 mg capsule RxNorm: 1 Capsule(s) PO TID No Start Date Active losartan 25 mg tablet RxNorm: 877041 1 Tablet(s) PO daily No Start Date 08/31/2016 Inactive losartan 100 mg tablet RxNorm: 558938 1 Tablet(s) PO daily No Start Date 06/30/2016 Inactive gentamicin 0.3 % eye drops RxNorm: 886760 2 Drop(s) ophthalmic (eye) left eye Q8 No Start Date 04/15/2018 Inactive fluticasone 50 mcg/actuation nasal spray,suspension RxNorm: 790877 2 [place] NASAL daily No Start Date 09/03/2018 Inactive Multaq 400 mg tablet RxNorm: 085234 1 Tablet(s) PO BID No Start Date 12/19/2017 Inactive Klor-Con 10 mEq tablet,extended release RxNorm: 413142 1 Tablet(s) PO daily as needed No Start Date 06/25/2015 Inactive Novolog U-100 Insulin aspart 100 unit/mL subcutaneous solution RxNorm: 028680 SSI 80-150 10u 151-200 15u 201-300 17u over 300 21u Unit(s) SQ AC & HS as needed No Start Date 10/07/2018 Inactive simvastatin 40 mg tablet RxNorm: 307183 1 Tablet(s) PO daily No Start Date 02/04/2016 Inactive carvedilol 6.25 mg tablet RxNorm: 528258 1 Tablet(s) PO BID No Start Date 11/30/2015 Inactive Lasix 20 mg tablet RxNorm: 1 Tablet(s) PO daily as needed edema No Start Date 11/28/2018 Inactive cetirizine 10 mg tablet RxNorm: 3673790 1 Tablet(s) PO daily No Start Date 09/03/2018 Inactive Eliquis 5 mg tablet RxNorm: 3075174 1 Tablet(s) PO BID No Start Date 01/19/2016 Inactive Toujeo SoloStar 300 unit/mL (1.5 mL) subcutaneous insulin pen RxNorm: 2788278 33 Unit(s) SQ QHS MANAGED BY DR. JOHNSON No Start Date 06/01/2016 Inactive Lasix 20 mg tablet RxNorm: 1 Tablet(s) PO daily as needed No Start Date 06/25/2015 Inactive atorvastatin 40 mg tablet RxNorm: 846498 1 Tablet(s) PO daily No Start Date 09/03/2018 Inactive Humalog 100 unit/mL subcutaneous solution RxNorm: 999945 10 Unit(s) SQ TID No Start Date 08/06/2015 Inactive amlodipine 5 mg tablet RxNorm: 919602 1 Tablet(s) PO daily No Start Date 08/31/2016 Inactive Norvasc 2.5 mg tablet RxNorm: 901629 1 Tablet(s) PO daily No Start Date 04/02/2018 Inactive Medication Administered Medication Codes Instructions Start Date Status Kenalog 40 mg/mL suspension for injection RxNorm: 5158704 1Milliliter 09/25/2018 No longer Active Kenalog 40 mg/mL suspension for injection RxNorm: 6542405 1Milliliter 04/12/2018 No longer Active Immunizations Vaccine Codes Date Status Influenza CVX: 141 06/02/2016 completed Influenza CVX: 141 07/17/2015 completed Influenza CVX: 141 06/18/2014 completed Pneumococcal CVX: 33 06/18/2014 completed Assessments Condition Codes Effective Dates Essential (primary) hypertension ICD-10: I10 ICD-9: 401.9 10/08/2018 Other allergic rhinitis ICD-10: J30.89 ICD-9: 477.8 09/25/2018 Cough ICD-10: R05 ICD-9: 786.2 09/25/2018 Localized edema ICD-10: R60.0 ICD-9: 782.3 09/25/2018 Other acute sinusitis ICD-10: J01.80 ICD-9: 461.8 09/25/2018 Type 2 diabetes mellitus with hyperglycemia ICD-10: E11.65 ICD-9: 250.02 09/04/2018 Essential (primary) hypertension ICD-10: I10 ICD-9: 401.1 09/04/2018 Type 2 diabetes mellitus without complications ICD-10: [...] For Visit Effective Dates Notes diabetes mellitus 10/08/2018 sinus congestion 09/25/2018 edema [...] 31.2 pg 05/25/2017 Cbc With Differential Ord2 [place]% 8.9 % 05/25/2017 Cbc With Differential Ord2 [...] 3.78 K/ul 05/25/2017 Cbc With Differential Ord2 [place] ABS# 0.7 K/ul 05/25/2017 Cbc With Differential Ord2 Eos ABS# 0.8 K/ul 05/25/2017 Cbc With Differential Ord2 Baso ABS# 0.3 K/ul 05/25/2017 Manual Differential Ord52 D-Neutr 50 % 05/25/2017 Manual Differential Ord52 D-Lymph 38 % 05/25/2017 Manual Differential Ord52 D-Eos 10 % 05/25/2017 Manual Differential Ord52 D-1 2 NRBC 05/25/2017 Comp Metabolic Xkv297 NA 140 mEq/L 05/25/2017 Comp Metabolic Ett854 K 4.0 mEq/L 05/25/2017 Comp Metabolic Pol600 CL 107 mEq/L 05/25/2017 Comp Metabolic Zet004 CO2 22.0 mEq/L 05/25/2017 Comp Metabolic Iws098 ANION GAP 15 05/25/2017 Comp Metabolic Elm010 GLUCOSE 97 mg/dL 05/25/2017 Comp Metabolic Sum932 Creat 0.9 mg/dL 05/25/2017 Comp Metabolic Gil524 eGFR 61 ml/min/1.73m2 05/25/2017 Comp Metabolic Fob293 BUN 16 mg/dL 05/25/2017 Comp Metabolic Qlm758 B/C Ratio 17.4 Ratio 05/25/2017 Comp Metabolic Vwf937 CALCIUM 9.1 mg/dL 05/25/2017 Comp Metabolic Xak641 ALK PHOS 109 U/L 05/25/2017 Comp Metabolic Swz356 AST(SGOT) 19 U/L 05/25/2017 Comp Metabolic Azn435 ALT(SGPT) 17 U/L 05/25/2017 Comp Metabolic Kns365 BILI T 0.4 mg/dL 05/25/2017 Comp Metabolic Lrb977 ALBUMIN 3.3 g/dL 05/25/2017 Comp Metabolic Bli396 TPRO 6.0 g/dL 05/25/2017 Comp Metabolic Vbn988 GLOB 2.7 g/dL 05/25/2017 Comp Metabolic Ihg483 A/G Ratio 1.2 Ratio 05/25/2017 Comp Metabolic Qie713 Osmo 281 mOsmo 05/25/2017 Lipid Ord30 CHOL 204 mg/dL 05/25/2017 Lipid Ord30 HDL 49.0 mg/dl 05/25/2017 Lipid Ord30 TRIG 117 mg/dL 05/25/2017 Lipid Ord30 LDL 132 mg/dL 05/25/2017 Lipid Ord30 C/HDL 4.2 Ratio 05/25/2017 %Hba1C Uvg166 % HbA1c 14019-3 10.5 % 05/25/2017 %Hba1C Kld851 Gluc Ave 255 mg/dL 05/25/2017 Microalbumin Zxs981 MicroAlb 95.0 mg/dL 05/25/2017 Review of Systems System Result Effective Dates Constitutional recent illness 10/08/2018 Constitutional No anorexia [...] lips 10/08/2018 None Full Exam - General 1995 [...] 09/25/2018 None Full Exam - General 1995 Eyes conjunctiva /eyelids Overall: conjunctiva clear 09/25/2018 None Full Exam - General 1994 Eyes pupils and irises Overall: pupils equal, round, reactive to light and accomodation 09/25/2018 None Full Exam - General 1994 Ears/Nose/Throat otoscopic exam Overall: external auditory canals clear 09/25/2018 None Full Exam - General 1994 Ears/Nose/Throat otoscopic exam Tympanic membrane: air- fluid level 09/25/2018 None Full Exam - General 1995 Ears/Nose/Throat lips/teeth/gingiva Overall: benign lips 09/25/2018 None Full Exam - General 1994 Ears/Nose/Throat [...] intact 07/17/2018 None Full Exam - General 1995 Psychiatric orientation/consciousness Overall: oriented to person, place and time 07/17/2018 None Full Exam - General 1994 Psychiatric mood and affect Overall: normal mood and affect 07/17/2018 None Full Exam - General 1995 Constitutional general appearance Overall: well developed 06/26/2018 None Full Exam - General 1995 Constitutional general appearance Overall: in no acute distress 06/26/2018 None Full Exam - General 1995 Constitutional general appearance Overall: well nourished 06/26/2018 [...] clear 07/21/2015 None Full Exam - General 1995 Ears/Nose/Throat [...] CPT-4: J3301 09/25/2018 THER/PROPH/DIAG INJ SC/IM CPT-4: 99141 09/25/2018 DRAIN/INJECT JOINT/BURSA CPT-4: 48393 04/12/2018 TRIAMCINOLONE ACET INJ NOS CPT-4: J3301 04/12/2018 PPPS, SUBSEQ VISIT CPT -4: G0439 02/22/2018 ADMIN INFLUENZA VIRUS VAC CPT-4: G0008 06/02/2016 FLU VACC PRSV FREE INC ANTIG CPT-4: 48495 06/02/2016 Vital Signs Date Vital 10/08/2018 Blood Pressure 1: 136/56 Code : 8480-6 BMI: 26.0 Code : 93118-9 Heart Rate 1 : 55 bpm Height: 4'8" SpO2: 99% Weight: 116 lbs 09/25/2018 Blood Pressure 1: 140/62 Code : 8480-6 BMI: 27.4 Code : 42202-1 Heart Rate 1 : 89 bpm Height: 4'8" SpO2: 97% Temperature: 37.6 (C) / 99.6 (F) Weight: 122 lbs 09/14/2018 Blood Pressure 1: 148/72 Code : 8480-6 BMI: 27.4 Code : 50150-8 Heart Rate 1 : 68 bpm Height: 4'8" SpO2: 98% Weight: 122 lbs 09/04/2018 Blood Pressure 1: 152/60 Code : 8480-6 BMI: 27.1 Code : 03222-5 Heart Rate 1 : 56 bpm Height: 4'8" SpO2: 96% Weight: 121 lbs 08/17/2018 Blood Pressure 1: 140/66 Code : 8480-6 BMI: 25.3 Code : 34726-7 Heart Rate 1 : 66 bpm Height: 4'8" SpO2: 97% Weight: 113 lbs 08/08/2018 Blood Pressure 1: 174/70 Code : 8480-6 BMI: 25.3 Code : 43591-0 Heart Rate 1 : 60 bpm Height: 4'8" SpO2: 97% Weight: 113 lbs 07/17/2018 Blood Pressure 1: 148/62 Code : 8480-6 BMI: 24.9 Code : 13719-5 Heart Rate 1 : 65 bpm Height: 4'8" SpO2: 97% Weight: 111 lbs 06/26/2018 Blood Pressure 1: 118/72 Code : 8480-6 BMI: 25.1 Code : 08749-2 Heart Rate 1 : 58 bpm Height: 4'8" SpO2: 97% Weight: 112 lbs 06/21/2018 Blood Pressure 1: 120/72 Code : 8480-6 BMI: 25.1 Code : 86074-6 Heart Rate 1 : 56 bpm Height: 4'8" SpO2: 96% Weight: 112 lbs 05/02/2018 Blood Pressure 1: 178/76 Code : 8480-6 BMI: 24.7 Code : 13671-2 Heart Rate 1 : 72 bpm Height: 4'8" SpO2: 98% Weight: 110 lbs 04/27/2018 Blood Pressure 1: 164/78 Code : 8480-6 BMI: 24.7 Code : 64161-7 Heart Rate 1 : 69 bpm Height: 4'8" SpO2: 97% Weight: 110 lbs 04/20/2018 Blood Pressure 1: 140/80 Code : 8480-6 BMI: 24.7 Code : 48008-6 Heart Rate 1 : 83 bpm Height: 4'8" SpO2: 97% Weight: 110 lbs 04/12/2018 Blood Pressure 1: 146/78 Code : 8480-6 Heart Rate 1: 68 bpm Height: SpO2: 98% Weight: 04/10/2018 Blood Pressure 1: 146/60 Code : 8480-6 BMI: 24.7 Code : 93916-0 Heart Rate 1 : 60 bpm Height: 4'8" SpO2: 95% Weight: 110 lbs 04/03/2018 Blood Pressure 1: 204/80 Code : 8480-6 BMI: 24.9 Code : 97768-9 Heart Rate 1 : 62 bpm Height: 4'8" SpO2: 98% Weight: 111 lbs 03/13/2018 Blood Pressure 1: 140/68 Code : 8480-6 BMI: 25.6 Code : 65894-1 Heart Rate 1 : 68 bpm Height: 4'8" SpO2: 95% Weight: 114 lbs 02/22/2018 Blood Pressure 1: 166/88 Code : 8480-6 BMI: 24.7 Code : 11298-5 Heart Rate 1 : 72 bpm Height: 4'8" SpO2: 95% Weight: 110 lbs 02/01/2018 Blood Pressure 1: 162/70 Code : 8480-6 BMI: 23.2 Code : 47093-9 Heart Rate 1 : 64 bpm Height: 4'11" SpO2: 95% Weight: 115 lbs 01/18/2018 Blood Pressure 1: 192/86 Code : 8480-6 BMI: 22.6 Code : 90068-1 Heart Rate 1 : 68 bpm Height: 4'11" SpO2: 94% Weight: 112 lbs 12/21/2017 Blood Pressure 1: 110/52 Code : 8480-6 BMI: 23.0 Code : 62492-0 Heart Rate 1 : 58 bpm Height: 4'11" SpO2: 94% Weight: 114 lbs 10/10/2017 Blood Pressure 1: 168/78 Code : 8480-6 BMI: 23.0 Code : 68498-5 Heart Rate 1 : 54 bpm Height: 4'11" SpO2: 98% Weight: 114 lbs 09/07/2017 Blood Pressure 1: 142/72 Code : 8480-6 Heart Rate 1: 84 bpm Height: 4'11" SpO2: 97% Weight: 08/30/2017 Blood Pressure 1: 188/82 Code : 8480-6 BMI: 24.4 Code : 69698-0 Heart Rate 1 : 79 bpm Height: 4'11" SpO2: 88% Temperature: 38.5 (C) / 101.3 (F) Weight: 121 lbs 08/15/2017 Blood Pressure 1: 166/78 Code : 8480-6 BMI: 22.8 Code : 74692-1 Heart Rate 1 : 71 bpm Height: 4'11" SpO2: 96% Weight: 113 lbs 06/15/2017 Blood Pressure 1: 138/68 Code : 8480-6 BMI: 22.8 Code : 21188-6 Heart Rate 1 : 54 bpm Height: 4'11" SpO2: 98% Weight: 113 lbs 05/29/2017 Blood Pressure 1: 96/46 Code : 8480-6 Blood Pressure 2: 116/57 Code: 8480-6 Heart Rate 1: 54 bpm 05/11/2017 Blood Pressure 1: 144/60 Code : 8480-6 BMI: 23.8 Code : 04186-5 Heart Rate 1 : 68 bpm Height: 4'11" SpO2: 97% Weight: 118 lbs 01/05/2017 Blood Pressure 1: 134/72 Code : 8480-6 BMI: 24.8 Code : 85209-5 Heart Rate 1 : 64 bpm Height: 4'11" SpO2: 94% Weight: 123 lbs 09/20/2016 Blood Pressure 1: 148/66 Code : 8480-6 BMI: 25.4 Code : 14301-1 Heart Rate 1 : 68 bpm Height: 4'11" SpO2: 97% Weight: 126 lbs 09/01/2016 Blood Pressure 1: 162/80 Code : 8480-6 BMI: 26.1 Code : 45142-1 Heart Rate 1 : 75 bpm Height: 4'11" SpO2: 95% Weight: 129 lbs 06/02/2016 Blood Pressure 1: 144/82 Code : 8480-6 BMI: 25.4 Code : 83617-9 Heart Rate 1 : 68 bpm Height: 4'11" SpO2: 98% Weight: 126 lbs 03/25/2016 Blood Pressure 1: 140/58 Code : 8480-6 BMI: 25.9 Code : 28441-6 Heart Rate 1 : 58 bpm Height: 4'11" SpO2: 95% Weight: 128 lbs 01/26/2016 Blood Pressure 1: 138/68 Code : 8480-6 BMI: 26.3 Code : 48228-7 Heart Rate 1 : 66 bpm Height: 4'11" SpO2: 96% Weight: 130 lbs 10/29/2015 Blood Pressure 1: 180/78 Code : 8480-6 BMI: 25.7 Code : 88631-5 Heart Rate 1 : 74 bpm Height: 4'11" SpO2: 97% Weight: 127 lbs 07/21/2015 Blood Pressure 1: 136/70 Code : 8480-6 BMI: 25.9 Code : 87876-1 Heart Rate 1 : 63 bpm Height: 4'11" SpO2: 95% Weight: 128 lbs 07/08/2015 Blood Pressure 1: 140/70 Code : 8480-6 BMI: 26.5 Code : 54920-0 Heart Rate 1 : 59 bpm Height: 4'11" SpO2: 94% Weight: 131 lbs 5 oz 05/04/2015 Blood Pressure 1: 140/60 Code : 8480-6 BMI: 25.7 Code : 90801-1 Heart Rate 1 : 60 bpm Height: 4'11" SpO2: 94% Weight: 127 lbs Functional Status No Functional Status data History of Present Illness Symptom Name Status Result Effective Date Notes Quality chronic 10/08 None Quality insulin dependent [...] Present Encounters Encounter Performer Location Codes Date ([id number]) [id number] EST. PATIENT, LEVEL IV Diagnosis: Essential (primary) hypertension[ICD10: I10] Kate Sow MD, [facility] CPT-4: 36239 10/08/2018 04210 EST. PATIENT, LEVEL IV Diagnosis: Other acute sinusitis[ICD10: J01.80] Diagnosis: Other allergic rhinitis[ICD10: J30.89] Diagnosis: Localized edema[ICD10: R60.0] Diagnosis: Cough[ICD10: R05] [facility] CPT-4: 42234 09/25/2018 90118 EST. PATIENT, LEVEL IV Diagnosis: Localized edema[ICD10: R60.0] Elizabeth Sow MD, [facility] CPT-4 : 30905 09/14/2018 ([id number]) 41235 EST. PATIENT, LEVEL IV Diagnosis: Essential (primary) hypertension[ICD10: I10] Diagnosis: Localized edema[ICD10: R60.0] Diagnosis: Type 2 diabetes mellitus with hyperglycemia[ICD10: E11.65] Laney Sow MD, [facility] CPT-4: 28281 09/04/2018 [id number] EST. PATIENT, LEVEL III Diagnosis: Essential (primary) hypertension[ICD10: I10] Diagnosis: Type 2 diabetes mellitus without complications[ICD10: E11.9] Diagnosis: Myalgia, other site[ICD10: M79.18] Elizabeth Sow MD, [facility] CPT-4: 26122 08/17/2018 ([id number]) 38328 EST. PATIENT, LEVEL IV Diagnosis: Essential (primary) hypertension[ICD10: I10] Diagnosis: Type 2 diabetes mellitus without complications[ICD10: E11.9] Kate Sow MD, [facility] CPT-4: 15048 08/08/2018 59946 EST. PATIENT, LEVEL III Diagnosis: Type 2 diabetes mellitus with hyperglycemia[ICD10: E11.65] Elizabeth Sow MD, [facility] CPT-4: 90811 07/17/2018 05059 EST. PATIENT, LEVEL III Diagnosis: Type 2 diabetes mellitus with hyperglycemia[ICD10: E11.65] Diagnosis: Weakness[ICD10: R53.1] Diagnosis: Unsteadiness on feet[ICD10: R26.81] Elizabeth Sow MD, [facility] CPT-4: 64352 06/26/2018 ([id number]) 46517 EST. PATIENT, LEVEL IV Diagnosis: Type 2 diabetes mellitus with hyperglycemia[ICD10: E11.65] Diagnosis: Essential (primary) hypertension[ICD10: I10] Diagnosis: Muscle weakness (generalized)[ICD10: M62.81] Diagnosis: Localized edema[ICD10: R60.0] Kate Sow MD, [facility] CPT- 4: 28656 06/21/2018 ([id number]) 84055 EST. 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 PATIENT, LEVEL III Diagnosis: Low back pain[ICD10: M54.5] Elizabeth Sow MD, [facility] CPT-4 : 59950 04/27/2018 ([id number]) 23917 EST. PATIENT, LEVEL IV Diagnosis: Diplopia[ICD10: H53.2] Diagnosis: Rash and other nonspecific skin eruption[ICD10: R21] Diagnosis: Type 2 diabetes mellitus with hyperglycemia[ICD10: E11.65] Laney Sow MD, [facility] CPT-4: 66217 04/20/2018 ([id number]) 99500 EST. PATIENT, LEVEL III Diagnosis: Low back pain[ICD10: M54.5] Elizabeth Sow MD, [facility] CPT-4 : 73414 04/12/2018 ([id number]) 27842 EST. PATIENT, LEVEL III Diagnosis: Essential (primary) hypertension[ICD10: I10] Diagnosis: Type 2 diabetes mellitus with hyperglycemia[ICD10: E11.65] Kate Sow MD , [facility] CPT-4: 21063 04/10/2018 ([id number]) 36641 EST. PATIENT, LEVEL III Diagnosis: Lumbago with sciatica, left side[ICD10: M54.42] Diagnosis: Essential (primary) hypertension[ICD10: I10] Laney Sow MD, [facility] CPT-4: 52434 04/03/2018 ([id number]) 58715 EST. PATIENT, LEVEL IV Diagnosis: Type 2 diabetes mellitus with hyperglycemia[ICD10: E11.65] Diagnosis: Essential (primary) hypertension[ICD10: I10] Kate Sow MD, [facility] CPT-4: 56698 03/13/2018 ([id number]) 98857 EST. PATIENT, LEVEL IV Diagnosis: Essential (primary) hypertension[ICD10: I10] Diagnosis: Type 2 diabetes mellitus with hyperglycemia[ICD10: E11.65] Kate Sow MD , [facility] CPT-4: 52364 02/01/2018 ([id number]) 22215 EST. PATIENT, LEVEL IV Diagnosis: Type 2 diabetes mellitus with hyperglycemia[ICD10: E11.65] Diagnosis: Essential (primary) hypertension[ICD10: I10] Kate Sow MD, [facility] CPT-4: 40808 01/18/2018 ([id number]) Miscellaneous no charge Diagnosis: Type 2 diabetes mellitus with hyperglycemia[ICD10: E11.65] Elizabeth Sow MD, [facility] CPT-4: 64688 12/22/2017 ([id number]) 51833 EST. PATIENT, LEVEL IV Diagnosis: Type 2 diabetes mellitus with hyperglycemia[ICD10: E11.65] Diagnosis: Essential (primary) hypertension[ICD10: I10] Diagnosis: Muscle weakness (generalized)[ICD10: M62.81] Kate Sow MD, [facility] CPT-4: 29648 12/21/2017 [id number] EST. PATIENT, LEVEL IV Diagnosis: Type 2 diabetes mellitus without complications[ICD10: E11.9] Diagnosis: Mixed hyperlipidemia[ICD10: E78.2] Diagnosis: Essential (primary) hypertension[ICD10: I10] Elizabeth Sow MD, [facility] CPT-4: 69931 10/10/2017 [id number] EST. PATIENT, LEVEL III Diagnosis: Weakness[ICD10: R53.1] Diagnosis: Essential (primary) hypertension[ICD10: I10] Elizabeth Sow MD, [facility] CPT-4: 03229 09/07/2017 10969 EST. PATIENT, LEVEL III Diagnosis: Encounter for follow-up examination after completed treatment for conditions other than malignant neoplasm[ICD10: Z09] Diagnosis: Weakness[ICD10: R53.1] Diagnosis: Essential (primary) hypertension[ICD10: I10] Diagnosis: Dyspnea, unspecified[ICD10: R06.00] Diagnosis: Unsteadiness on feet[ICD10: R26.81] Elizabeth Sow MD, [facility] CPT-4: 84315 08/30/2017 ([id number]) 02751 EST. PATIENT, LEVEL IV Diagnosis: Type 2 diabetes mellitus without complications[ICD10: E11.9] Diagnosis: Essential (primary) hypertension[ICD10: I10] Kate Sow MD, [facility] CPT-4: 36845 08/15/2017 ([id number]) 40828 EST. PATIENT, LEVEL IV Diagnosis: Type 2 diabetes mellitus without complications[ICD10: E11.9] Diagnosis: Essential (primary) hypertension[ICD10: I10] Diagnosis: Unsteadiness on feet[ICD10: R26.81] Kate Sow MD, [facility] CPT-4: 03971 06/15/2017 ([id number]) Miscellaneous no charge Diagnosis: Essential (primary) hypertension[ICD10: I10] Laney Sow MD, [facility] CPT-4: 16248 05/29/2017 ([id number]) 73968 EST. PATIENT, LEVEL IV Diagnosis: Type 2 diabetes mellitus without complications[ICD10: E11.9] Diagnosis: Essential (primary) hypertension[ICD10: I10] Diagnosis: Mixed hyperlipidemia[ICD10: E78.2] Kate Sow MD, [facility] CPT-4: 20971 05/11/2017 ([id number]) 26544 EST. PATIENT, LEVEL IV Diagnosis: Type 2 diabetes mellitus without complications[ICD10: E11.9] Diagnosis: Essential (primary) hypertension[ICD10: I10] Kate Sow MD, [facility] CPT-4: 68614 01/05/2017 ([id number]) 83743 EST. PATIENT, LEVEL III Diagnosis: Essential (primary) hypertension[ICD10: I10] Kate Sow MD, [facility] CPT-4: 75887 09/20/2016 ([id number]) 84024 EST. PATIENT, LEVEL III Diagnosis: Essential (primary) hypertension[ICD10: I10] Laney Sow MD, [facility] CPT-4: 17213 09/01/2016 ([id number]) Miscellaneous no charge Diagnosis: Impacted cerumen, right ear[ICD10: H61.21] Elizabeth Sow MD, [facility] CPT-4: 28651 06/08/2016 ([id number]) 82815 EST. PATIENT, LEVEL IV Diagnosis: Type 2 diabetes mellitus without complications[ICD10: E11.9] Diagnosis: Essential (primary) hypertension[ICD10: I10] Diagnosis: Encounter for immunization[ICD10: Z23] Kate Sow MD, [facility] CPT-4: 71482 06/02/2016 [id number] EST. PATIENT, LEVEL III Diagnosis: Essential (primary) hypertension[ICD10: I10] Diagnosis: Other specified cardiac arrhythmias[ICD10: I49.8] Elizabeth Sow MD, [facility] CPT-4: 07172 03/25/2016 ([id number]) 13077 EST. PATIENT, LEVEL IV Diagnosis: Type 2 diabetes mellitus without complications[ICD10: E11.9] Diagnosis: Essential (primary) hypertension[ICD10: I10] MARIANN Wong MD CPT-4: 93838 01/26/2016 ([id number]) 29636 EST. PATIENT, LEVEL IV Diagnosis: Essential (primary) hypertension[ICD10: I10] Diagnosis: Type 2 diabetes mellitus without complications[ICD10: E11.9] MARIANN Wong MD CPT-4: 06249 10/29/2015 ([id number]) 22887 EST. PATIENT, LEVEL IV Diagnosis: Essential (primary) hypertension[ICD10: I10] Diagnosis: Dyspnea, unspecified[ICD10: R06.00] Kate Sow MD, [facility] CPT-4: 07617 07/21/2015 ([id number]) 57583 EST. PATIENT, LEVEL III Diagnosis: Edema, unspecified[ICD10: R60.9] Kate Sow MD, [facility] CPT-4: 82230 07/08/2015 ([id number]) OFFICE VISIT, NEW - LEVEL 4 Diagnosis: ESSENTIAL HYPERTENSION[ICD9: 401.9] Diagnosis: DIABETES TYPE II[ICD9: 250.00] Kate Sow MD, [facility] CPT- 4: 52154 05/04/2015 Plan of Care Planned Activity Notes Codes Status Date Visit Plan: Hypertension - well controlled - continue with current medications, continue with no added salt diet. Pt has been encouraged to exercise daily. The pt has been advised to call the office if there are any acute concerns about change in blood pressure readings at home. DM - improved control - monitor symptoms - pt's certified master safe technician recently changed the dose of medication and she has had a few low blood glucose readings. Weakness- continue with therapy. 10/08/2018 Appointment: Kate Sow WPtel: [address] [place], [place] [address] (15 min) Moderate 10/08/2018 Patient Education: Patient [...] peripheral edema. 09/25/2018 Appointment: Elizabeth Milner WPtel: [facility] (15 min) Moderate 09/25/2018 Patient Education: Patient [...] peripheral edema. 09/14/2018 Appointment: Elizabeth Milner WPtel: [facility] (15 min) Moderate 09/14/2018 Patient Education: Patient Medication Summary Completed 09/14/2018 Visit Plan: Hypertension - well controlled at the DC- continue with current medications, continue with no [...] this time. 09/04/2018 Appointment: Laney Mcmillan WPtel: [facility]5 [phone] [place] (30 min) Complex 09/04/2018 Patient Education: Patient Medication Summary Completed 09/04/2018 Patient Education: Diabetes Completed 09/04/2018 Appointment: Laney Mcmillan WPtel: [phone] [phone] [place] (15 min) Moderate 08/28/2018 Visit Plan: [...] concerns. 08/17/2018 Appointment: [phone] [place] (15 min) Moderate 08/17/2018 Patient Education: Patient [...] to call for acute concerns. 08/08/2018 Appointment: [phone] 30 min appointments only in this slot 08/08/2018 Patient Education: Patient Medication Summary Completed 08/08/2018 Patient Education: Diabetes Completed 08/08/2018 Appointment: Kate Sow WPtel: [phone] [facility] (15 min) Moderate 08/07/2018 Visit [...] glucose control. 07/17/2018 Appointment: [facility]el[phone] (15 min) Moderate 07/17/2018 Patient Education: Patient [...] gait instability. 06/26/2018 Appointment: [facility] Milner [facility]el[phone] (15 min) Moderate 06/26/2018 Patient Education: Patient Medication Summary Completed 06/26/2018 Patient Education: Diabetes Completed 06/26/2018 Visit Plan: Diabetes improved control [facility] at the [facility] - discussed with patient and her marisaughte [...] Living. 06/21/2018 Appointment: Kate [facility]ow [facility]el[phone] (15 min) Moderate 06/21/2018 Patient Education: Patient Medication Summary Completed 06/21/2018 Patient Education: Diabetes Completed 06/21/2018 Appointment: [facility]el[phone] [facility] (15 min) Moderate 05/09/2018 Visit Plan: [...] sleep better. 05/02/2018 Appointment: [facility]el[phone] (15 min) Moderate 05/02/2018 Patient Education: Patient Medication Summary Completed 05/02/2018 Care Plan: X-RAY EXAM L-S SPINE 10/21 VWS LOINC : 51762-7 Pending 05/02/2018 Visit Plan: Low back pain- the patient was instructed in appropriate posture - The pt is to use prn antiinflammatories to manage acute pain. The patient is to call the office if the pain is worsening or does not improve. 04/27/2018 Appointment: [facility] Milner [facility]el[phone] (15 min) Moderate 04/27/2018 Patient Education: Patient Medication Summary Completed 04/27/2018 Visit Plan: Double vision-suspect due to elevated blood sugars -recommend patient bring in log of blood sugars to next appt -notify certified master safe technician of elevated readings and watch diet closely -also recommend f/u with eye doctor Rash-suspect shingles-rx for acyclovir provided and instructed on use 04/20/2018 Appointment: Laney Mcmillan WPtel: [phone] [phone] [place] (15 min) Moderate 04/20/2018 Patient [...] worsen. 04/12/2018 Appointment: Elizabeth Milner WPtel: [phone] [facility] (15 min) Moderate 04/12/2018 Patient Education: [...] controlled. 04/10/2018 Appointment: Kate Sow WPtel: [phone] [facility] (15 min) Moderate 04/10/2018 Patient [...] concerns. 04/03/2018 Appointment: Laney Mcmillan WPtel: [phone] [phone] [place] (15 min) Moderate 04/03/2018 Patient [...] [facility] [place] (15 min) Moderate 03/13/2018 Patient [...] diabetic diet. 02/01/2018 Appointment: Kate Sow WPtel: [facility]5 [facility] (15 min) Moderate 02/01/2018 Patient Education: Patient [...] 100mg daily. 01/18/2018 Appointment: Kate Sow WPtel: [facility] (15 min) Moderate 01/18/2018 Patient Education: Patient Medication Summary Completed 01/18/2018 Appointment: Kate Sow WPtel: [facility] [place] (15 min) Moderate 01/11/2018 Appointment: Kate Sow WPtel: [facility] (15 min) Moderate 12/25/2017 [...] home. Generalized weakness - physical therapy at [facility] outpt 12/21/2017 Appointment: Kate Sow WPtel: [...] glucose control. 10/10/2017 Appointment: Elizabeth Milner WPtel: [facility]5 [facility] (15 min) Moderate 10/10/2017 Patient Education: Patient [...] at home. 09/07/2017 Appointment: Elizabeth Milner WPtel: [facility] (30 min) Complex 09/07/2017 Patient Education: [...] medication management - will admit pt to assisted facility for ongoing rehabilitation. 08/30/2017 Appointment: Elizabeth Milner WPtel: [phone] [facility] (30 min) Complex 08/30/2017 Patient Education: Patient Medication Summary Completed 08/30/2017 Appointment: Elizabeth Milner WPtel: [phone] [facility] (15 min) Moderate 08/29/2017 Visit Plan: [...] at home. 08/15/2017 Appointment: Kate Sow WPtel: [phone] [facility] (15 min) Moderate 08/15/2017 Patient Education: Patient Medication Summary Completed 08/15/2017 Care Plan: %Hba1C LOINC : 51321-4 Cancelled 08/15/2017 Referral: Karlee physical therapy WPtel: [phone] [facility] Patient's informed. Completed 06/26/2017 Visit Plan: [...] at home. 06/15/2017 Appointment: Kate Sow WPtel: [facility] (15 min) Moderate 06/15/2017 Patient Education: Patient Medication Summary Completed 06/15/2017 Care Plan: Referral Order SNOMED-CT : [id number] Pending 06/15/2017 Appointment: Nurse Visit 05/29/2017 Patient [...] and come in here or go to [facility] or [facility] to get this set of labs done. [...] with Statin 05/11/2017 Appointment: Kate Sow WPtel[phone] [facility] (15 min) Moderate 05/11/2017 [...] at home. 09/20/2016 Appointment: Kate Sow [facility]Ptel[phone] [place] (30 min) Complex 09/20/2016 Patient Education: [...] concerns. 09/01/2016 Appointment: Laney Mcmillan WPtel: [phone] [phone] (30 min) Complex 09/01/2016 Patient Education: Patient Medication Summary Completed 09/01/2016 Appointment: Kate Sow WPtel: [phone] [facility] (15 min) Moderate 08/31/2016 Appointment: [...] controlled. 06/02/2016 Appointment: Kate Sow WPtel: [phone] [facility] (15 min) Moderate 06/02/2016 Patient Education: Patient Medication Summary Completed 06/02/2016 Patient Education: Hypertension Completed 06/02/2016 Visit Plan: Bradycardia - reports pt has brought in indicates that the pt has been having a pulse in the 40s-50s. Will adjust medications, pt is to notify clinic if her symptoms do not improve, or with any concerns. 03/25/2016 Appointment: Laney Mcmillan WPtel: [phone] [phone] [place] (10 min) Simple 03/25/2016 Patient [...] DM - managed by Dr. Johnson from [place] 01/26/2016 Patient Education: Patient Medication Summary Completed 01/26/2016 Patient Education: Hypertension Completed 01/26/2016 Appointment: Laney Mcmillan WPtel: [phone] (30 min) Complex 12/31/2015 Visit Plan: [...] less controlled. 10/29/2015 Appointment: Kate Sow WPtel: [facility]5 [facility] (15 min) Moderate 10/29/2015 Patient Education: Patient Medication Summary Completed 10/29/2015 Patient Education: Hypertension Completed 10/29/2015 Appointment: Kate Sow WPtel: [facility]5 [facility] (15 min) Moderate 09/14/2015 Visit [...] today, as soon as you get to [place], monday morning, then start taking the lasix [...] handout Begin using muscle rub on back (Coweta balm) 05/04/2015 Appointment: Kate Sow WPtel: [phone] [place] ([place]) New Patient 05/04/2015 Patient Education: Patient Medication Summary Completed 05/04/2015 Patient Education: Hypertension Completed 05/04/2015 Referral[phone] [place] Referral Appointment Requested Instructions Comment see if Dr. 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 if the toujeo script [...] readings at home. . Diabetes Mellitus - uncontrolled - per [...] is to call for acute concerns. . Joint Injection - Pt was given [...] not improve or if they worsen. . Diabetes Mellitus - I have recommended [...] - physical therapy at [facility] outpt steroid shot today stop doxy and start [...] further attempt to reduce peripheral edema. . Hypertension - well controlled - continue [...] are starting to become less controlled. . 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 . Hypertension - well controlled - continue with current medications, continue with no added salt diet. Pt has been encouraged to exercise daily. The pt has been advised to call the office if there are any acute concerns about change in blood pressure readings at home. DM - improved control - monitor symptoms - pt's certified master safe technician recently changed the dose of medication and she has had a few low blood glucose readings. Weakness- continue with therapy. . Diabetes improved control [facility] the [facility] - discussed with patient and her daughte [...] next Monday. Continue with diabetic diet. . Edema - pt has been advised to elevate legs to prevent dependent edema, compression has been recommended to help to naturally decrease peripheral edema. Diuretic use has been discussed and pt has been instructed in appropriate use of such medication as necessary to further attempt to reduce peripheral edema. . Low back pain- the patient was [...] DM - managed by Dr. Johnson from [place] . Diabetes Mellitus - Uncontrolled - per [...] to allow for greater blood glucose control. give lasix and potassium daily x 5 days then daily prn weight gain 2# . Hypertension - well controlled at the DC- continue with current medications, continue with no [...] with current management-no changes at this time. . Bradycardia - reports pt has brought [...] medication management - will admit pt to assisted facility for ongoing rehabilitation. Stop the Atorvastatin [...] today, as soon as you get to [place], monday morning, then start taking the lasix [...] today, as soon as you get to [place], monday morning, then start taking the lasix [...] of blood sugars to next appt -notify certified master safe technician of elevated readings and watch diet [...] allow for greater blood glucose control. . Weakness - improved - pt is [...] and come in here or go to [facility] or [facility] to get this set of labs done. [...] and come in here or go to [facility] or [facility] to get this set of labs done. [...] lasix, monitor symptoms, call if not improving. take the humalog at the beginning of [...] the back allowing her to sleep better. Stretching and exercises for back- follow instructions from handout Begin using muscle rub on back (Coweta balm) Begin taking Lasix again No blood [...] handout Begin using muscle rub on back (Coweta balm) . Diabetes Mellitus - improved control- [...]
--- OUTSIDE RECORDS SUMMARY | 2018-12-26 07:14 | XMS REPORT | CCD ---
Author Author [facility] Organization [facility] Address [address] [place] [address] Phone Care Team Providers Care Developmental Services Worker Name Role Phone PP Unavailable CCM Unavailable Summary Purpose Interface Exchange Insurance Providers Payer name Policy type / Coverage type Covered alliance party ID Effective Begin Date Effective End Date WPS Medicare Part B Medicare Part B [id number] Unknown Unknown [employer] Medicare Part B [id number] Unknown Unknown Family history Mother Diagnosis Age [...] Unknown 2 05/04/[address]: [id number] Never smoker 05/04/2015 Alcohol history Unknown occasionally [...] Start Date Stop Date Status Fill Instructions Novolog U-100 Insulin aspart 100 unit/mL subcutaneous solution RxNorm: 133829 see pharm instruction note Unit(s) SQ AC & HS as needed 10/08 No Stop Date Active if BS <80 eat 15 gram carbs and repeat BS in 15 min.BS 90-120 and eating given 2 unitsBS 121-150 5 unitsBS 151-200 8 unitsBS 201-250 11 unitsBS 251-300 14 unitsBS > 300 17 units and call provider Kenalog 40 mg/mL suspension for injection RxNorm: 0691515 1 Milliliter(s) Inj 09/25/2018 09/25/2018 Inactive Augmentin 500 mg-125 mg tablet RxNorm: 471883 1 Tablet(s) PO TID 09/25/2018 10/04/2018 Inactive Toujeo SoloStar U-300 Insulin 300 unit/mL (1.5 mL) subcutaneous pen RxNorm: 6701050 20 Unit(s) SQ QHS MANAGED BY DR. JOHNSON 2017 No Stop Date Active Voltaren 1 % topical gel RxNorm: 966332 APPLY THIN LAYER TOPICALLY TO AFFECTED AREA 4 TIMES DAILY 08/24/2018 No Stop Date Active Levaquin 250 mg tablet RxNorm: 912467 2 tabs on 1st day then 1 tab day 2-7 Tablet( s) PO daily 08/20/2018 09/03/2018 Inactive dc keflex Levaquin 250 mg tablet RxNorm: 104914 2 tabs on 1st day then 1 tab day 2-7 Tablet( s) PO daily 08/20/2018 08/19/2018 Inactive dc keflex Keflex 500 mg capsule RxNorm: 471855 1 Capsule(s) PO TID 201708/19/2018 Inactive Estevan SoloStar U-300 Insulin 300 unit/mL (1.5 mL) subcutaneous pen RxNorm: 4996788 25 Unit(s) SQ QHS MANAGED BY DR. JOHNSON 201709/03/2018 Inactive Norvasc 10 mg tablet RxNorm: 062620 1 Tablet(s) PO daily 201701/25/2019 Active update RX Eliquis 2.5 mg tablet RxNorm: 1130157 Tablet(s) PO TAKE ONE TABLET BY MOUTH TWICE DAILY 06/21/2018 06/15/2019 Active cyclobenzaprine 5 mg tablet RxNorm: 095541 1/2 Tablet(s) PO BID as needed muscle spasms/back pain 05/02/2018 05/31/2018 Inactive tramadol 50 mg tablet RxNorm: 496308 1 Tablet(s) PO TID as needed for pain 04/27/2018 05/01/2018 Inactive Voltaren 1 % topical gel RxNorm: 651220 1 Application TOP QID 04/27/2018 08/23/2018 Inactive acyclovir 400 mg tablet RxNorm: 191719 2 Tablet(s) PO QID 04/2006/20/2018 Inactive mupirocin 2 % topical ointment RxNorm: 230526 1 Application TOP BID 04/20/2018 04/29/2018 Inactive right cheek/nose gentamicin 0.3 % eye drops RxNorm: 403149 2 Drop(s) ophthalmic (eye) left eye Q8 04/16/2018 09/03/2018 Inactive prednisone 20 mg tablet RxNorm: 462358 2 Tablet(s) PO daily 04/12/2018 Inactive prednisone 20 mg tablet RxNorm: 552373 2 Tablet(s) PO daily 04/17/2018 Inactive Kenalog 40 mg/mL suspension for injection RxNorm: 5309833 1 Milliliter(s) Inj 04/12/2018 04/12/2018 Inactive losartan 100 mg tablet RxNorm: 845438 1 Tablet(s) PO QAM 201712/28/2018 Active update RX -dose should be 100mg Norvasc 5 mg tablet RxNorm: 912412 1 Tablet(s) PO daily 201707/29/2018 Inactive update RX losartan 50 mg tablet RxNorm: 100817 TAKE ONE TABLET BY MOUTH ONCE DAILY IN THE MORNING 03/26/2018 04/02/2018 Inactive Humalog U-100 Insulin 100 unit/mL subcutaneous solution RxNorm: 817941 15 Unit(s) SQ AC MANAGED BY DR. JOHNSON 03/13/2018 No Stop Date Active 201- 200 17 units, greater than 300 21 units Toujeo SoloStar U-300 Insulin 300 unit/mL (1.5 mL) subcutaneous pen RxNorm: 7484256 20 Unit(s) SQ QHS MANAGED BY DR. JOHNSON 201707/10/2018 Inactive losartan 100 mg tablet RxNorm: 711290 1 Tablet(s) PO QAM 201704/02/2018 Inactive pantoprazole 40 mg tablet,delayed release RxNorm: 441483 1 Tablet(s) PO daily 01/11/2018 07/19/2018 Inactive carvedilol 12.5 mg tablet RxNorm: 965396 1 Tablet(s) PO BID 07/19/2018 Inactive Toujeo SoloStar U-300 Insulin 300 unit/mL (1.5 mL) subcutaneous pen RxNorm: 3970987 15 Unit(s) SQ QHS MANAGED BY DR. JOHNSON 201703/12/2018 Inactive Multaq 400 mg tablet RxNorm: 556612 1 Tablet(s) PO BID 201712/14/2018 Active potassium chloride ER 10 mEq tablet,extended release RxNorm: 668604 1 Tablet(s) PO daily while on the Lasix 10/18/201701/2018 Inactive losartan 50 mg tablet RxNorm: 760605 1 Tablet(s) PO QAM 201601/17/2018 Inactive Lasix 20 mg tablet RxNorm: 971641 1 Tablet(s) PO daily 201610/03/2017 Inactive potassium chloride ER 10 mEq tablet,extended release RxNorm: 441026 1 Tablet(s) PO daily while on the Lasix 08/30/2017 Inactive Toujeo SoloStar 300 unit/mL (1.5 mL) subcutaneous insulin pen RxNorm: 5085883 35 Unit(s) SQ QHS MANAGED BY DR. JOHNSON 06/15/2017 10/12/2017 Inactive Eliquis 5 mg tablet RxNorm: 7831165 TAKE ONE TABLET BY MOUTH TWICE DAILY 03/01/2017 02/23/2018 Inactive Januvia 100 mg tablet RxNorm: 040631 1/2 Tablet(s) PO daily 07/19/2018 Inactive losartan 50 mg tablet RxNorm: 675048 1 Tablet(s) PO BID 201509/13/2017 Inactive amlodipine 10 mg tablet RxNorm: 780100 1 Tablet(s) PO daily 06/14/2017 Inactive generic for NORVASC losartan 50 mg tablet RxNorm: 052183 1 Tablet(s) PO daily 201508/31/2016 Inactive Toujeo SoloStar 300 unit/mL (1.5 mL) subcutaneous insulin pen RxNorm: 9928147 40 Unit(s) SQ QHS MANAGED BY DR. JOHNSON 07/01/2016 06/14/2017 Inactive Toujeo SoloStar 300 unit/mL (1.5 mL) subcutaneous insulin pen RxNorm: 4289056 35 Unit(s) SQ QHS MANAGED BY DR. JOHNSON 06/02/2016 06/30/2016 Inactive Humalog 100 unit/mL subcutaneous solution RxNorm: 327333 15 Unit(s) SQ AC MANAGED BY DR. JOHNSON 06/02/2016 03/12/2018 Inactive carvedilol 3.125 mg tablet RxNorm: 035994 1 Tablet(s) PO BID 04/23/2016 Inactive simvastatin 40 mg tablet RxNorm: 803239 1 Tablet(s) PO QHS 07/19/2018 Inactive Humalog 100 unit/mL subcutaneous solution RxNorm: 441227 13 Unit(s) SQ AC MANAGED BY DR. JOHNSON 01/26/2016 06/01/2016 Inactive Eliquis 5 mg tablet RxNorm: 3739005 1 Tablet(s) PO BID 201501/13/2017 Inactive carvedilol 6.25 mg tablet RxNorm: 682148 1 Tablet(s) PO BID 2016 Inactive Humalog 100 unit/mL subcutaneous solution RxNorm: 998086 Unit(s) SQ UD as directed by office 08/07/2015 01/25/2016 Inactive Klor-Con 10 mEq tablet,extended release RxNorm: 920600 1 Tablet(s) PO daily as needed 06/26/2015 10/23/2015 Inactive Lasix 20 mg tablet RxNorm: 1 Tablet(s) PO daily as needed 06/26/2015 10/23/2015 Inactive metoprolol succinate ER 50 mg tablet,extended release 24 hr RxNorm: 371504 1 Tablet(s) PO daily No Start Date Active melatonin 3 mg tablet RxNorm: 980884 1 Tablet(s) PO QHS as needed insomnia No Start Date Active aspirin 81 mg capsule,delayed release RxNorm: 817877 1 Capsule(s) PO daily No Start Date Active Co Q-10 50 mg capsule RxNorm: 974924 1 Capsule(s) PO daily No Start Date Active Lasix 20 mg tablet RxNorm: 1 Tablet(s) PO daily as needed edema No Start Date Active Culturelle Probiotics 10 billion cell-200 mg capsule RxNorm: 1 Capsule(s) PO TID No Start Date Active losartan 25 mg tablet RxNorm: 928961 1 Tablet(s) PO daily No Start Date 08/31/2016 Inactive losartan 100 mg tablet RxNorm: 019131 1 Tablet(s) PO daily No Start Date 06/30/2016 Inactive gentamicin 0.3 % eye drops RxNorm: 220592 2 Drop(s) ophthalmic (eye) left eye Q8 No Start Date 04/15/2018 Inactive fluticasone 50 mcg/actuation nasal spray,suspension RxNorm: 598965 2 [place] NASAL daily No Start Date 09/03/2018 Inactive Multaq 400 mg tablet RxNorm: 516368 1 Tablet(s) PO BID No Start Date 12/19/2017 Inactive Klor-Con 10 mEq tablet,extended release RxNorm: 608294 1 Tablet(s) PO daily as needed No Start Date 06/25/2015 Inactive Novolog U-100 Insulin aspart 100 unit/mL subcutaneous solution RxNorm: 456072 SSI 80-150 10u 151-200 15u 201-300 17u over 300 21u Unit(s) SQ AC & HS as needed No Start Date 10/07/2018 Inactive simvastatin 40 mg tablet RxNorm: 457154 1 Tablet(s) PO daily No Start Date 02/04/2016 Inactive carvedilol 6.25 mg tablet RxNorm: 778176 1 Tablet(s) PO BID No Start Date 11/30/2015 Inactive cetirizine 10 mg tablet RxNorm: 8072732 1 Tablet(s) PO daily No Start Date 09/03/2018 Inactive Eliquis 5 mg tablet RxNorm: 8866008 1 Tablet(s) PO BID No Start Date 01/19/2016 Inactive Toujeo SoloStar 300 unit/mL (1.5 mL) subcutaneous insulin pen RxNorm: 1288171 33 Unit(s) SQ QHS MANAGED BY DR. JOHNSON No Start Date 06/01/2016 Inactive Lasix 20 mg tablet RxNorm: 251601 1 Tablet(s) PO daily as needed No Start Date 06/25/2015 Inactive atorvastatin 40 mg tablet RxNorm: 360463 1 Tablet(s) PO daily No Start Date 09/03/2018 Inactive Humalog 100 unit/mL subcutaneous solution RxNorm: 069547 10 Unit(s) SQ TID No Start Date 08/06/2015 Inactive amlodipine 5 mg tablet RxNorm: 263540 1 Tablet(s) PO daily No Start Date 08/31/2016 Inactive Norvasc 2.5 mg tablet RxNorm: 232497 1 Tablet(s) PO daily No Start Date 04/02/2018 Inactive Medication Administered Medication Codes Instructions Start Date Status Kenalog 40 mg/mL suspension for injection RxNorm: 1015035 1Milliliter 09/25/2018 No longer Active Kenalog 40 mg/mL suspension for injection RxNorm: 2152915 1Milliliter 04/12/2018 No longer Active Immunizations Vaccine [...] 31.2 pg 05/25/2017 Cbc With Differential Ord2 [place]% 8.9 % 05/25/2017 Cbc With Differential Ord2 [...] 3.78 K/ul 05/25/2017 Cbc With Differential Ord2 [place] ABS# 0.7 K/ul 05/25/2017 Cbc With Differential Ord2 Eos ABS# 0.8 K/ul 05/25/2017 Cbc With Differential Ord2 Baso ABS# 0.3 K/ul 05/25/2017 Manual Differential Ord52 D-Neutr 50 % 05/25/2017 Manual Differential Ord52 D-Lymph 38 % 05/25/2017 Manual Differential Ord52 D-Eos 10 % 05/25/2017 Manual Differential Ord52 D-1 2 NRBC 05/25/2017 Comp Metabolic Oey892 NA 140 mEq/L 05/25/2017 Comp Metabolic Agj257 K 4.0 mEq/L 05/25/2017 Comp Metabolic Moa261 CL 107 mEq/L 05/25/2017 Comp Metabolic Uif214 CO2 22.0 mEq/L 05/25/2017 Comp Metabolic Fxm176 ANION GAP 15 05/25/2017 Comp Metabolic Cel324 GLUCOSE 97 mg/dL 05/25/2017 Comp Metabolic Afa009 Creat 0.9 mg/dL 05/25/2017 Comp Metabolic Zix548 eGFR 61 ml/min/1.73m2 05/25/2017 Comp Metabolic Itu405 BUN 16 mg/dL 05/25/2017 Comp Metabolic Qyp150 B/C Ratio 17.4 Ratio 05/25/2017 Comp Metabolic Cou674 CALCIUM 9.1 mg/dL 05/25/2017 Comp Metabolic Yxt249 ALK PHOS 109 U/L 05/25/2017 Comp Metabolic Mln436 AST(SGOT) 19 U/L 05/25/2017 Comp Metabolic Wlt728 ALT(SGPT) 17 U/L 05/25/2017 Comp Metabolic Omi212 BILI T 0.4 mg/dL 05/25/2017 Comp Metabolic Nak722 ALBUMIN 3.3 g/dL 05/25/2017 Comp Metabolic Eyr754 TPRO 6.0 g/dL 05/25/2017 Comp Metabolic Frh010 GLOB 2.7 g/dL 05/25/2017 Comp Metabolic Vfp803 A/G Ratio 1.2 Ratio 05/25/2017 Comp Metabolic Oif363 Osmo 281 mOsmo 05/25/2017 Lipid Ord30 CHOL 204 mg/dL 05/25/2017 Lipid Ord30 HDL 49.0 mg/dl 05/25/2017 Lipid Ord30 TRIG 117 mg/dL 05/25/2017 Lipid Ord30 LDL 132 mg/dL 05/25/2017 Lipid Ord30 C/HDL 4.2 Ratio 05/25/2017 %Hba1C Lon386 % HbA1c 77472-5 10.5 % 05/25/2017 %Hba1C Tjs269 Gluc Ave 255 mg/dL 05/25/2017 Microalbumin Sly705 MicroAlb 95.0 mg/dL 05/25/2017 Review of Systems [...] accomodation 10/08/2018 None Full Exam - General 1995 Ears/Nose/Throat lips/teeth/gingiva Overall: benign lips 10/08/2018 None [...] developed 09/25/2018 None Full Exam - General 1995 Constitutional general appearance Overall: in no acute distress 09/25/2018 None Full Exam - General 1995 Constitutional general appearance Overall: well nourished 09/25/2018 None Full Exam - General 1995 Eyes conjunctiva /eyelids Overall: eyelids normal 09/25/2018 None Full Exam - General 1995 Eyes conjunctiva /eyelids Overall: cornea clear 09/25/2018 [...] clear 12/21/2017 None Full Exam - General 1995 Ears/Nose/Throat lips/teeth/gingiva Overall: benign lips 12/21/2017 None Full Exam - General 1994 Ears/Nose/Throat oral cavity/pharynx/larynx Overall: oral mucosa clear 12/21/2017 None Full Exam - General 1995 Ears/Nose/Throat [...] CPT-4: J3301 09/25/2018 THER/PROPH/DIAG INJ SC/IM CPT-4: 83260 09/25/2018 DRAIN/INJECT JOINT/BURSA CPT-4: 29089 04/12/2018 TRIAMCINOLONE ACET INJ NOS CPT-4: J3301 04/12/2018 PPPS, SUBSEQ VISIT CPT -4: G0439 02/22/2018 ADMIN INFLUENZA VIRUS VAC CPT-4: G0008 06/02/2016 FLU VACC PRSV FREE INC ANTIG CPT-4: 57385 06/02/2016 Vital Signs Date Vital 10/08/2018 Blood Pressure 1: 136/56 Code : 8480-6 BMI: 26.0 Code : 50632-4 Heart Rate 1 : 55 bpm Height: 4'8" SpO2: 99% Weight: 116 lbs 09/25/2018 Blood Pressure 1: 140/62 Code : 8480-6 BMI: 27.4 Code : 13484-7 Heart Rate 1 : 89 bpm Height: 4'8" SpO2: 97% Temperature: 37.6 (C) / 99.6 (F) Weight: 122 lbs 09/14/2018 Blood Pressure 1: 148/72 Code : 8480-6 BMI: 27.4 Code : 91692-6 Heart Rate 1 : 68 bpm Height: 4'8" SpO2: 98% Weight: 122 lbs 09/04/2018 Blood Pressure 1: 152/60 Code : 8480-6 BMI: 27.1 Code : 31910-6 Heart Rate 1 : 56 bpm Height: 4'8" SpO2: 96% Weight: 121 lbs 08/17/2018 Blood Pressure 1: 140/66 Code : 8480-6 BMI: 25.3 Code : 00428-6 Heart Rate 1 : 66 bpm Height: 4'8" SpO2: 97% Weight: 113 lbs 08/08/2018 Blood Pressure 1: 174/70 Code : 8480-6 BMI: 25.3 Code : 59123-8 Heart Rate 1 : 60 bpm Height: 4'8" SpO2: 97% Weight: 113 lbs 07/17/2018 Blood Pressure 1: 148/62 Code : 8480-6 BMI: 24.9 Code : 98001-1 Heart Rate 1 : 65 bpm Height: 4'8" SpO2: 97% Weight: 111 lbs 06/26/2018 Blood Pressure 1: 118/72 Code : 8480-6 BMI: 25.1 Code : 83563-6 Heart Rate 1 : 58 bpm Height: 4'8" SpO2: 97% Weight: 112 lbs 06/21/2018 Blood Pressure 1: 120/72 Code : 8480-6 BMI: 25.1 Code : 58698-3 Heart Rate 1 : 56 bpm Height: 4'8" SpO2: 96% Weight: 112 lbs 05/02/2018 Blood Pressure 1: 178/76 Code : 8480-6 BMI: 24.7 Code : 23806-5 Heart Rate 1 : 72 bpm Height: 4'8" SpO2: 98% Weight: 110 lbs 04/27/2018 Blood Pressure 1: 164/78 Code : 8480-6 BMI: 24.7 Code : 82394-0 Heart Rate 1 : 69 bpm Height: 4'8" SpO2: 97% Weight: 110 lbs 04/20/2018 Blood Pressure 1: 140/80 Code : 8480-6 BMI: 24.7 Code : 80837-0 Heart Rate 1 : 83 bpm Height: 4'8" SpO2: 97% Weight: 110 lbs 04/12/2018 Blood Pressure 1: 146/78 Code : 8480-6 Heart Rate 1: 68 bpm Height: SpO2: 98% Weight: 04/10/2018 Blood Pressure 1: 146/60 Code : 8480-6 BMI: 24.7 Code : 54427-8 Heart Rate 1 : 60 bpm Height: 4'8" SpO2: 95% Weight: 110 lbs 04/03/2018 Blood Pressure 1: 204/80 Code : 8480-6 BMI: 24.9 Code : 42976-9 Heart Rate 1 : 62 bpm Height: 4'8" SpO2: 98% Weight: 111 lbs 03/13/2018 Blood Pressure 1: 140/68 Code : 8480-6 BMI: 25.6 Code : 05124-4 Heart Rate 1 : 68 bpm Height: 4'8" SpO2: 95% Weight: 114 lbs 02/22/2018 Blood Pressure 1: 166/88 Code : 8480-6 BMI: 24.7 Code : 58873-6 Heart Rate 1 : 72 bpm Height: 4'8" SpO2: 95% Weight: 110 lbs 02/01/2018 Blood Pressure 1: 162/70 Code : 8480-6 BMI: 23.2 Code : 62833-9 Heart Rate 1 : 64 bpm Height: 4'11" SpO2: 95% Weight: 115 lbs 01/18/2018 Blood Pressure 1: 192/86 Code : 8480-6 BMI: 22.6 Code : 40219-0 Heart Rate 1 : 68 bpm Height: 4'11" SpO2: 94% Weight: 112 lbs 12/21/2017 Blood Pressure 1: 110/52 Code : 8480-6 BMI: 23.0 Code : 47682-8 Heart Rate 1 : 58 bpm Height: 4'11" SpO2: 94% Weight: 114 lbs 10/10/2017 Blood Pressure 1: 168/78 Code : 8480-6 BMI: 23.0 Code : 36552-4 Heart Rate 1 : 54 bpm Height: 4'11" SpO2: 98% Weight: 114 lbs 09/07/2017 Blood Pressure 1: 142/72 Code : 8480-6 Heart Rate 1: 84 bpm Height: 4'11" SpO2: 97% Weight: 08/30/2017 Blood Pressure 1: 188/82 Code : 8480-6 BMI: 24.4 Code : 44859-2 Heart Rate 1 : 79 bpm Height: 4'11" SpO2: 88% Temperature: 38.5 (C) / 101.3 (F) Weight: 121 lbs 08/15/2017 Blood Pressure 1: 166/78 Code : 8480-6 BMI: 22.8 Code : 18370-0 Heart Rate 1 : 71 bpm Height: 4'11" SpO2: 96% Weight: 113 lbs 06/15/2017 Blood Pressure 1: 138/68 Code : 8480-6 BMI: 22.8 Code : 76419-9 Heart Rate 1 : 54 bpm Height: 4'11" SpO2: 98% Weight: 113 lbs 05/29/2017 Blood Pressure 1: 96/46 Code : 8480-6 Blood Pressure 2: 116/57 Code: 8480-6 Heart Rate 1: 54 bpm 05/11/2017 Blood Pressure 1: 144/60 Code : 8480-6 BMI: 23.8 Code : 87733-1 Heart Rate 1 : 68 bpm Height: 4'11" SpO2: 97% Weight: 118 lbs 01/05/2017 Blood Pressure 1: 134/72 Code : 8480-6 BMI: 24.8 Code : 20101-0 Heart Rate 1 : 64 bpm Height: 4'11" SpO2: 94% Weight: 123 lbs 09/20/2016 Blood Pressure 1: 148/66 Code : 8480-6 BMI: 25.4 Code : 45280-0 Heart Rate 1 : 68 bpm Height: 4'11" SpO2: 97% Weight: 126 lbs 09/01/2016 Blood Pressure 1: 162/80 Code : 8480-6 BMI: 26.1 Code : 61384-0 Heart Rate 1 : 75 bpm Height: 4'11" SpO2: 95% Weight: 129 lbs 06/02/2016 Blood Pressure 1: 144/82 Code : 8480-6 BMI: 25.4 Code : 10182-5 Heart Rate 1 : 68 bpm Height: 4'11" SpO2: 98% Weight: 126 lbs 03/25/2016 Blood Pressure 1: 140/58 Code : 8480-6 BMI: 25.9 Code : 82595-4 Heart Rate 1 : 58 bpm Height: 4'11" SpO2: 95% Weight: 128 lbs 01/26/2016 Blood Pressure 1: 138/68 Code : 8480-6 BMI: 26.3 Code : 63514-6 Heart Rate 1 : 66 bpm Height: 4'11" SpO2: 96% Weight: 130 lbs 10/29/2015 Blood Pressure 1: 180/78 Code : 8480-6 BMI: 25.7 Code : 98062-7 Heart Rate 1 : 74 bpm Height: 4'11" SpO2: 97% Weight: 127 lbs 07/21/2015 Blood Pressure 1: 136/70 Code : 8480-6 BMI: 25.9 Code : 92130-2 Heart Rate 1 : 63 bpm Height: 4'11" SpO2: 95% Weight: 128 lbs 07/08/2015 Blood Pressure 1: 140/70 Code : 8480-6 BMI: 26.5 Code : 07770-9 Heart Rate 1 : 59 bpm Height: 4'11" SpO2: 94% Weight: 131 lbs 5 oz 05/04/2015 Blood Pressure 1: 140/60 Code : 8480-6 BMI: 25.7 Code : 97668-5 Heart Rate 1 : 60 bpm Height: [...] Present Encounters Encounter Performer Location Codes Date ([id number]) [id number] EST. PATIENT, LEVEL IV Diagnosis: Essential (primary) hypertension[ICD10: I10] Kate Sow MD, [facility] CPT-4: 79896 10/08/2018 04314 EST. PATIENT, LEVEL IV Diagnosis: Other acute sinusitis[ICD10: J01.80] Diagnosis: Other allergic rhinitis[ICD10: J30.89] Diagnosis: Localized edema[ICD10: R60.0] Diagnosis: Cough[ICD10: R05] Elizabeth Sow MD, [facility] CPT-4: 91926 09/25/2018 69332 EST. PATIENT, LEVEL IV Diagnosis: Localized edema[ICD10: R60.0] Elizabeth Sow MD, [facility] CPT-4 : 13068 09/14/2018 [id number]) 35462 EST. PATIENT, LEVEL IV Diagnosis: Essential (primary) hypertension[ICD10: I10] Diagnosis: Localized edema[ICD10: R60.0] Diagnosis: Type 2 diabetes mellitus with hyperglycemia[ICD10: E11.65] Laney Sow MD, [facility] CPT-4: 59624 09/04/2018 75086 EST. PATIENT, LEVEL III Diagnosis: Essential (primary) hypertension[ICD10: I10] Diagnosis: Type 2 diabetes mellitus without complications[ICD10: E11.9] Diagnosis: Myalgia, other site[ICD10: M79.18] Elizabeth Sow MD, [facility] CPT-4: 38657 08/17/2018 ([id number]) 67915 EST. PATIENT, LEVEL IV Diagnosis: Essential (primary) hypertension[ICD10: I10] Diagnosis: Type 2 diabetes mellitus without complications[ICD10: E11.9] Kate Sow MD, [facility] CPT-4: 19263 08/08/2018 67826 EST. PATIENT, LEVEL III Diagnosis: Type 2 diabetes mellitus with hyperglycemia[ICD10: E11.65] Elizabeth Sow MD, [facility] CPT-4: 39486 07/17/2018 49260 EST. PATIENT, LEVEL III Diagnosis: Type 2 diabetes mellitus with hyperglycemia[ICD10: E11.65] Diagnosis: Weakness[ICD10: R53.1] Diagnosis: Unsteadiness on feet[ICD10: R26.81] Elizabeth Sow MD, [facility] CPT-4: 28147 06/26/2018 ([id number]) 01208 EST. PATIENT, LEVEL IV Diagnosis: Type 2 diabetes mellitus with hyperglycemia[ICD10: E11.65] Diagnosis: Essential (primary) hypertension[ICD10: I10] Diagnosis: Muscle weakness (generalized)[ICD10: M62.81] Diagnosis: Localized edema[ICD10: R60.0] Kate Sow MD, [facility] CPT- 4: 71460 06/21/2018 ([id number]) 46842 EST. 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 CPT-4: 79592 58251 EST. PATIENT, LEVEL III Diagnosis: Low back pain[ICD10: M54.5] Elizabeth Sow MD, [facility] CPT-4 : 60665 04/27/2018 ([id number]) 01086 EST. PATIENT, LEVEL IV Diagnosis: Diplopia[ICD10: H53.2] Diagnosis: Rash and other nonspecific skin eruption[ICD10: R21] Diagnosis: Type 2 diabetes mellitus with hyperglycemia[ICD10: E11.65] Laney Sow MD, [facility] CPT-4: 57894 04/20/2018 ([id number]) 27590 EST. PATIENT, LEVEL III Diagnosis: Low back pain[ICD10: M54.5] Elizabeth Sow MD, [facility] CPT-4 : 61295 04/12/2018 ([id number]) 74798 EST. PATIENT, LEVEL III Diagnosis: Essential (primary) hypertension[ICD10: I10] Diagnosis: Type 2 diabetes mellitus with hyperglycemia[ICD10: E11.65] Kate Sow MD , [facility] CPT-4: 18826 04/10/2018 ([id number]) 01871 EST. PATIENT, LEVEL III Diagnosis: Lumbago with sciatica, left side[ICD10: M54.42] Diagnosis: Essential (primary) hypertension[ICD10: I10] Laney Sow MD, [facility] CPT-4: 35873 04/03/2018 ([id number]) 48167 EST. PATIENT, LEVEL IV Diagnosis: Type 2 diabetes mellitus with hyperglycemia[ICD10: E11.65] Diagnosis: Essential (primary) hypertension[ICD10: I10] Kate Sow MD, [facility] CPT-4: 25004 03/13/2018 ([id number]) 79925 EST. PATIENT, LEVEL IV Diagnosis: Essential (primary) hypertension[ICD10: I10] Diagnosis: Type 2 diabetes mellitus with hyperglycemia[ICD10: E11.65] Kate Sow MD , [facility] CPT-4: 79067 02/01/2018 ([id number]) 75498 EST. PATIENT, LEVEL IV Diagnosis: Type 2 diabetes mellitus with hyperglycemia[ICD10: E11.65] Diagnosis: Essential (primary) hypertension[ICD10: I10] Kate Sow MD, [facility] CPT-4: 23363 01/18/2018 ([id number]) Miscellaneous no charge Diagnosis: Type 2 diabetes mellitus with hyperglycemia[ICD10: E11.65] Elizabeth Sow MD [facility] CPT-4: 50295 12/22/2017 ([id number]) 61333 EST. PATIENT, LEVEL IV Diagnosis: Type 2 diabetes mellitus with hyperglycemia[ICD10: E11.65] Diagnosis: Essential (primary) hypertension[ICD10: I10] Diagnosis: Muscle weakness (generalized)[ICD10: M62.81] Kate Sow MD [facility] CPT-4: 02926 12/21/2017 [id number] EST. PATIENT, LEVEL IV Diagnosis: Type 2 diabetes mellitus without complications[ICD10: E11.9] Diagnosis: Mixed hyperlipidemia[ICD10: E78.2] Diagnosis: Essential (primary) hypertension[ICD10: I10] Elizabeth Sow MD [facility] CPT-4: 69420 10/10/2017 55519 EST. PATIENT, LEVEL III Diagnosis: Weakness[ICD10: R53.1] Diagnosis: Essential (primary) hypertension[ICD10: I10] Elizabeth Sow MD, [facility] CPT-4: 46236 09/07/2017 43539 EST. PATIENT, LEVEL III Diagnosis: Encounter for follow-up examination after completed treatment for conditions other than malignant neoplasm[ICD10: Z09] Diagnosis: Weakness[ICD10: R53.1] Diagnosis: Essential (primary) hypertension[ICD10: I10] Diagnosis: Dyspnea, unspecified[ICD10: R06.00] Diagnosis: Unsteadiness on feet[ICD10: R26.81] Elizabeth Sow MD [facility] CPT-4: 48046 08/30/2017 ([id number]) 40524 EST. PATIENT, LEVEL IV Diagnosis: Type 2 diabetes mellitus without complications[ICD10: E11.9] Diagnosis: Essential (primary) hypertension[ICD10: I10] Kate Sow MD [facility] CPT-4: 65228 08/15/2017 ([id number]) 60092 EST. PATIENT, LEVEL IV Diagnosis: Type 2 diabetes mellitus without complications[ICD10: E11.9] Diagnosis: Essential (primary) hypertension[ICD10: I10] Diagnosis: Unsteadiness on feet[ICD10: R26.81] Kate Sow MD [facility] CPT-4: 16945 06/15/2017 ([id number]) Miscellaneous no charge Diagnosis: Essential (primary) hypertension[ICD10: I10] Laney Sow MD [facility] CPT-4: 53643 05/29/2017 ([id number]) 31666 EST. PATIENT, LEVEL IV Diagnosis: Type 2 diabetes mellitus without complications[ICD10: E11.9] Diagnosis: Essential (primary) hypertension[ICD10: I10] Diagnosis: Mixed hyperlipidemia[ICD10: E78.2] Kate Sow MD [facility] CPT-4: 02371 05/11/2017 ([id number]) 07392 EST. PATIENT, LEVEL IV Diagnosis: Type 2 diabetes mellitus without complications[ICD10: E11.9] Diagnosis: Essential (primary) hypertension[ICD10: I10] Kate oSw MD [facility] CPT-4: 46256 01/05/2017 ([id number]) 15033 EST. PATIENT, LEVEL III Diagnosis: Essential (primary) hypertension[ICD10: I10] Kate Swo MD [facility] CPT-4: 77429 09/20/2016 ([id number]) 86071 EST. PATIENT, LEVEL III Diagnosis: Essential (primary) hypertension[ICD10: I10] Laney Sow MD [facility] CPT-4: 74134 09/01/2016 ([id number]) Miscellaneous no charge Diagnosis: Impacted cerumen, right ear[ICD10: H61.21] Elizabeth Sow MD [facility] CPT-4: 06971 06/08/2016 ([id number]) 47240 EST. PATIENT, LEVEL IV Diagnosis: Type 2 diabetes mellitus without complications[ICD10: E11.9] Diagnosis: Essential (primary) hypertension[ICD10: I10] Diagnosis: Encounter for immunization[ICD10: Z23] Kate Sow MD [facility] CPT-4: 06533 06/02/2016 49509 EST. PATIENT, LEVEL III Diagnosis: Essential (primary) hypertension[ICD10: I10] Diagnosis: Other specified cardiac arrhythmias[ICD10: I49.8] Elizabeth Sow MD, [facility] CPT-4: 85811 03/25/2016 ([id number]) 96214 EST. PATIENT, LEVEL IV Diagnosis: Type 2 diabetes mellitus without complications[ICD10: E11.9] Diagnosis: Essential (primary) hypertension[ICD10: I10] Kate Sow MD, [facility] CPT-4: 16729 01/26/2016 ([id number]) 72469 EST. PATIENT, LEVEL IV Diagnosis: Essential (primary) hypertension[ICD10: I10] Diagnosis: Type 2 diabetes mellitus without complications[ICD10: E11.9] Kate Sow MD, [facility] CPT-4: 36028 10/29/2015 ([id number]) 61856 EST. PATIENT, LEVEL IV Diagnosis: Essential (primary) hypertension[ICD10: I10] Diagnosis: Dyspnea, unspecified[ICD10: R06.00] Kate Sow MD, [facility] CPT-4: 56689 07/21/2015 ([id number]) 76116 EST. PATIENT, LEVEL III Diagnosis: Edema, unspecified[ICD10: R60.9] Kate Sow MD, [facility] CPT-4: 32670 07/08/2015 ([id number]) OFFICE VISIT, NEW - LEVEL 4 Diagnosis: ESSENTIAL HYPERTENSION[ICD9: 401.9] Diagnosis: DIABETES TYPE II[ICD9: 250.00] Kate Sow MD, [facility] CPT- 4: 75242 05/04/2015 Plan of Care Planned Activity Notes [...] improved control - monitor symptoms - pt's cloth doffer recently changed the dose of medication and she has had a few low blood glucose readings. Weakness- continue with therapy. 10/08/2018 Patient Education: Patient Medication Summary Completed [...] edema. 09/25/2018 Appointment: Elizabeth Milner WPtel: [phone] [facility] (15 min) Moderate 09/25/2018 Patient Education: Patient [...] peripheral edema. 09/14/2018 Appointment: Elizabeth Milner WPtel: [phone] [facility] (15 min) Moderate 09/14/2018 Patient Education: Patient Medication Summary Completed 09/14/2018 Visit Plan: Hypertension - well controlled at the [place]- continue with current medications, continue with no [...] this time. 09/04/2018 Appointment: Laney Mcmillan WPtel: [phone] [phone] [place] (30 min) Complex 09/04/2018 Patient Education: Patient Medication Summary Completed 09/04/2018 Patient Education: Diabetes Completed 09/04/2018 Appointment: Laney Mcmillan WPtel: [phone] [phone] [place] (15 min) Moderate 08/28/2018 Visit Plan: [...] or concerns. 08/17/2018 [facility]ment[phone] (15 min) Moderate 08/17/2018 Patient Education: Patient [...] acute concerns. 08/08/2018 App[facility]ment: [phone] 30 min appointments only in this slot 08/08/2018 Patient Education: Patient Medication Summary Completed 08/08/2018 Patient Education: Diabetes Completed 08/08/2018 Appointment: [phone] [facility] (15 min) Moderate 08/07/2018 Visit Plan: Diabetes [...] control. 07/17/2018 Appointment: [phone] [facility] (15 min) Moderate 07/17/2018 Patient Education: [...] control. 06/26/2018 Appointment: [phone] [facility] (15 min) Moderate 06/26/2018 Patient Education: Patient Medication Summary Completed 06/26/2018 Patient Education: Diabetes Completed 06/26/2018 Visit Plan: Diabetes improved control while at the sn[facility] - discussed with patient and her daughte [...] Living. 06/21/2018 Appointment: Kate [phone] [facility] (15 min) Moderate 06/21/2018 Patient Education: Patient Medication Summary Completed 06/21/2018 Patient Education: Diabetes Completed 06/21/2018 Appointment: Kate [facility]el[phone] [facility] (15 min) Moderate 05/09/2018 Visit Plan: [...] better. 05/02/2018 Appointment: [facility]el[phone] [facility] (15 min) Moderate 05/02/2018 Patient Education: Patient Medication Summary Completed 05/02/2018 Care Plan: X-RAY EXAM L-S SPINE 2/3 VWS LOINC : 41428-1 Pending 05/02/2018 Visit Plan: Low back pain- the patient was instructed in appropriate posture - The pt is to use prn antiinflammatories to manage acute pain. The patient is to call the office if the pain is worsening or does not improve. 04/27/2018 Appointment: Elizabeth Minler [facility]el[phone] [facility] (15 min) Moderate 04/27/2018 Patient Education: Patient Medication Summary Completed 04/27/2018 Visit Plan: Double vision-suspect due to elevated blood sugars -recommend patient bring in log of blood sugars to next appt -notify cloth doffer of elevated readings and watch diet closely -also recommend f/u with eye doctor Rash-suspect shingles-rx for acyclovir provided and instructed on use 04/20/2018 Appointment: Lane[facility] Mcmillan [facility]el[facility] [phone] [phone] [place] (15 min) Moderate 04/20/2018 Patient [...] they worsen. 04/12/2018 Appointment: Elizabeth Milner [facility]Ptel[facility] [phone] [facility] (15 min) Moderate 04/12/2018 Patient Education: Patient [...] controlled. 04/10/2018 Appointment: Kate [facility]el[phone] [facility] (15 min) Moderate 04/10/2018 Patient Education: [...] Appointment: Lane[facility] Mcmillan [facility]Ptel[facility] [phone] [facility] [place] (15 min) Moderate 04/03/2018 Patient [...] home. 03/13/2018 Appointment: Kate [facility]ow [facility]Ptel: [phone] [facility] (15 min) Moderate 03/13/2018 Patient Education: [...] diet. 02/01/2018 Appointment: Kate [facility]ow WPtel: [phone] [facility] (15 min) Moderate 02/01/2018 Patient Education: [...] 100mg daily. 01/18/2018 Appointment: Kate Sow WPtel: [facility] (15 min) Moderate 01/18/2018 Patient Education: Patient Medication Summary Completed 01/18/2018 Appointment: Kate Sow WPtel: [facility] (15 min) Moderate 01/11/2018 Appointment: Kate Sow WPtel: [facility] (15 min) Moderate 12/25/2017 Visit Plan: Diabetes [...] home. Generalized weakness - physical therapy at [facility] 12/21/2017 Appointment: Kate Sow WPtel: [phone] [facility] [place] (15 min) Moderate 12/21/2017 Patient Education: Patient Medication Summary Completed 12/21/2017 Appointment: Kate [facility]ow WPtel: [phone] [facility] (15 min) Moderate 12/13/2017 Visit Plan: [...] control. 10/10/2017 Appointment: Elizabeth Milner WPtel: [phone] [facility] (15 min) Moderate 10/10/2017 Patient Education: Patient [...] home. 09/07/2017 Appointment: Elizabeth Milner WPtel: [phone] [facility] (30 min) Complex 09/07/2017 Patient Education: Patient Medication Summary Completed 09/07/2017 Appointment: Kate Sow WPtel: [facility] [place] (15 min) Moderate 09/05/2017 Visit Plan: Hospital follow up - Dr. Sow in to see pt - pt was in the hospital with uncontrolled hypertension and a. fib - controlled at this time - persistent weakness requiring ongoing PT and assistance with some ADLs and medication management - will admit pt to intermediate facility for ongoing rehabilitation. 08/30/2017 Appointment: Elizabeth Milner WPtel: [phone] [facility] (30 min) Complex 08/30/2017 Patient Education: Patient Medication Summary Completed 08/30/2017 Appointment: Elizabeth Milnertel: [phone] [facility] (15 min) Moderate 08/29/2017 Visit Plan: Diabetes [...] home. 08/15/2017 Appointment: Kate Sow WPtel: [phone] [facility] (15 min) Moderate 08/15/2017 Patient Education: Patient Medication Summary Completed 08/15/2017 Care Plan: [facility] Cancelled 08/15/2017 [facility]: [phone] Patient's informed. Completed 06/26/2017 [...] at home. 06/15/2017 Appointment: Kate Sow WPtel: [phone] [facility] (15 min) Moderate 06/15/2017 Patient Education: Patient Medication Summary Completed 06/15/2017 Care Plan: Referral Order SNOMED-CT : [id number] Pending 06/15/2017 Appointment: Nurse Visit 05/29/2017 Patient [...] and come in here or go to [facility] or [facility] to get this set of [...] Statin 05/11/2017 Appointment: Kate Sow WPtel: [phone] [facility] [place] (15 min) Moderate 05/11/2017 Patient Education: [...] daily. 01/05/2017 Appointment: Kate Sow WPtel: [phone] [facility] (15 min) Moderate 01/05/2017 Patient Education: [...] home. 09/20/2016 Appointment: Kate Sow WPtel: [phone] [facility] (30 min) Complex 09/20/2016 Patient Education: [...] concerns. 09/01/2016 Appointment: Laney Mcmillan [facility]Ptel[facility] [phone] [phone] (30 min) Complex 09/01/2016 Patient Education: Patient Medication Summary Completed 09/01/2016 Appointment: [place] W[place]el: [facility] (15 min) Moderate 08/31/2016 Appointment: Nurse Visit [...] less controlled. 06/02/2016 Appointment: Kate Sow WPtel: [facility] (15 min) Moderate 06/02/2016 Patient Education: Patient Medication Summary Completed 06/02/2016 Patient Education: Hypertension Completed 06/02/2016 Visit Plan: Bradycardia - reports pt has brought in indicates that the pt has been having a pulse in the 40s-50s. Will adjust medications, pt is to notify clinic if her symptoms do not improve, or with any concerns. 03/25/2016 Appointment: Laney Mcmillan WPtel: [phone] [place] (10 min) Simple 03/25/2016 Patient Education: [...] DM - managed by Dr. Johnson from [place] 01/26/2016 Patient Education: Patient Medication Summary Completed 01/26/2016 Patient Education: Hypertension Completed 01/26/2016 Appointment: Laney Mcmillan WPtel: [phone] [facility] (30 min) Complex 12/31/2015 Visit Plan: Hypertension [...] less controlled. 10/29/2015 Appointment: Kate Sow WPtel: [phone] [facility] (15 min) Moderate 10/29/2015 Patient Education: Patient Medication Summary Completed 10/29/2015 Patient Education: Hypertension Completed 10/29/2015 Appointment: Kate Sow WPtel: [phone] [facility] (15 min) Moderate 09/14/2015 Visit Plan: Hypertension [...] today, as soon as you get to [place], monday morning, then start taking the lasix [...] handout Begin using muscle rub on back (Bradley balm) 05/04/2015 Appointment: Kate Sow WPtel: [phone] [facility] [place] (S) New Patient 05/04/2015 Patient Education: Patient Medication Summary Completed 05/04/2015 Patient Education: Hypertension Completed 05/04/2015 Ref[phone] Referral Appointment Requested Instructions Comment see if Dr. 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 if the toujeo script [...] control. Gait Instability - referral to [facility] physical therapy for gait instability. Hypertension - [...] improved control - monitor symptoms - pt's cloth doffer recently changed the dose of medication and [...] Generalized weakness - physical therapy [facility] with [facility] Increase amlodipine [...] of blood sugars to next appt -notify cloth doffer of elevated readings and watch diet closely [...] medication management - will admit pt to intermediate facility for ongoing rehabilitation. . Bradycardia - reports pt has brought in indicates that the pt has been having a pulse in the 40s-50s. Will adjust medications, pt is to notify clinic if her symptoms do not improve, or with any concerns. give lasix and potassium daily x 5 days then daily prn weight gain 2# . Hypertension - well controlled at the [facility]- continue with current medications, continue with no [...] DM - managed by Dr. Johnson from [place] . Low back pain- the patient was [...] . Diabetes improved control while at the snf - discussed with patient and her hirale [...] handout Begin using muscle rub on back (Bradley balm) Begin taking Lasix again No blood [...] handout Begin using muscle rub on back (Bradley balm) . Edema - pt has been [...]
--- OUTSIDE RECORDS SUMMARY | 2018-12-26 07:17 | XMS REPORT | CCD ---
Author Author [facility] Organization [facility] Address [address] [place] [address] Phone Care Team Providers Care [employer] Technician Name Role Phone PP Unavailable CCM Unavailable Summary Purpose Interface Exchange Insurance Providers Payer name Policy type / Coverage type Covered democrat ID Effective Begin Date Effective End Date WPS Medicare Part B Medicare Part B [id number] Unknown Unknown [employer] Medicare Part B [id number] Unknown Unknown Family history Mother Diagnosis Age [...] Unknown 3 05/04/[address]: [id number] Never smoker 05/04/2015 Alcohol history Unknown occasionally drinks alcohol 05/04/2015 Allergies, Adverse Reactions, Alerts Substance Reaction Codes Entered Date Inactivated Date Status * NO KNOWN DRUG ALLERGIES Unknown 07/08/2015 No Inactive Date Active Past Medical History Illness Codes Condition Status Onset Date Resolved Date Cough ICD-9: 786.2 ICD-10: R05 Active 09/25/2018 [...] Problems Condition Codes Effective Dates Condition Status Cough ICD-9: 786.2 ICD-10: R05 09/25/2018 Active [...] Insulin aspart 100 unit/mL subcutaneous solution RxNorm: 316359 see pharm instruction note Unit(s) SQ AC & HS as needed 10/08 No Stop Date Active if BS <80 eat 15 gram carbs and repeat BS in 15 min.BS 90-120 and eating given 2 unitsBS 121-150 5 unitsBS 151-200 8 unitsBS 201-250 11 unitsBS 251-300 14 unitsBS > 300 17 units and call provider Kenalog 40 mg/mL suspension for injection RxNorm: 2872930 1 Milliliter(s) Inj 09/25/2018 09/25/2018 Inactive Augmentin 500 mg-125 mg tablet RxNorm: 627350 1 Tablet(s) PO TID 09/25/2018 10/04/2018 Inactive Toujeo SoloStar U-300 Insulin 300 unit/mL (1.5 mL) subcutaneous pen RxNorm: 6814760 20 Unit(s) SQ QHS MANAGED BY DR. JOHNSON 2017 No Stop Date Active Voltaren 1 % topical gel RxNorm: 121003 APPLY THIN LAYER TOPICALLY TO AFFECTED AREA 4 TIMES DAILY 08/24/2018 No Stop Date Active Levaquin 250 mg tablet RxNorm: 758242 2 tabs on 1st day then 1 tab day 2-7 Tablet( s) PO daily 08/20/2018 09/03/2018 Inactive dc keflex Levaquin 250 mg tablet RxNorm: 851452 2 tabs on 1st day then 1 tab day 2-7 Tablet( s) PO daily 08/20/2018 08/19/2018 Inactive dc keflex Keflex 500 mg capsule RxNorm: 340211 1 Capsule(s) PO TID 201708/19/2018 Inactive Estevan SoloStar U-300 Insulin 300 unit/mL (1.5 mL) subcutaneous pen RxNorm: 7355794 25 Unit(s) SQ QHS MANAGED BY DR. JOHNSON 201709/03/2018 Inactive Norvasc 10 mg tablet RxNorm: 040130 1 Tablet(s) PO daily 201701/25/2019 Active update RX Eliquis 2.5 mg tablet RxNorm: 2543475 Tablet(s) PO TAKE ONE TABLET BY MOUTH TWICE DAILY 06/21/2018 06/15/2019 Active cyclobenzaprine 5 mg tablet RxNorm: 795732 1/2 Tablet(s) PO BID as needed muscle spasms/back pain 05/02/2018 05/31/2018 Inactive tramadol 50 mg tablet RxNorm: 617718 1 Tablet(s) PO TID as needed for pain 04/27/2018 05/01/2018 Inactive Voltaren 1 % topical gel RxNorm: 817093 1 Application TOP QID 04/27/2018 08/23/2018 Inactive acyclovir 400 mg tablet RxNorm: 400755 2 Tablet(s) PO QID 04/2006/20/2018 Inactive mupirocin 2 % topical ointment RxNorm: 708207 1 Application TOP BID 04/20/2018 04/29/2018 Inactive right cheek/nose gentamicin 0.3 % eye drops RxNorm: 031301 2 Drop(s) ophthalmic (eye) left eye Q8 04/16/2018 09/03/2018 Inactive prednisone 20 mg tablet RxNorm: 638329 2 Tablet(s) PO daily 04/12/2018 Inactive prednisone 20 mg tablet RxNorm: 385423 2 Tablet(s) PO daily 04/17/2018 Inactive Kenalog 40 mg/mL suspension for injection RxNorm: 3605158 1 Milliliter(s) Inj 04/12/2018 04/12/2018 Inactive losartan 100 mg tablet RxNorm: 675185 1 Tablet(s) PO QAM 201712/28/2018 Active update RX -dose should be 100mg Norvasc 5 mg tablet RxNorm: 682067 1 Tablet(s) PO daily 201707/29/2018 Inactive update RX losartan 50 mg tablet RxNorm: 547526 TAKE ONE TABLET BY MOUTH ONCE DAILY IN THE MORNING 03/26/2018 04/02/2018 Inactive Humalog U-100 Insulin 100 unit/mL subcutaneous solution RxNorm: 582535 15 Unit(s) SQ AC MANAGED BY DR. JOHNSON 03/13/2018 No Stop Date Active 201- 200 17 units, greater than 300 21 units Toujeo SoloStar U-300 Insulin 300 unit/mL (1.5 mL) subcutaneous pen RxNorm: 4588642 20 Unit(s) SQ QHS MANAGED BY DR. JOHNSON 201707/10/2018 Inactive losartan 100 mg tablet RxNorm: 069163 1 Tablet(s) PO QAM 201704/02/2018 Inactive pantoprazole 40 mg tablet,delayed release RxNorm: 807942 1 Tablet(s) PO daily 01/11/2018 07/19/2018 Inactive carvedilol 12.5 mg tablet RxNorm: 458821 1 Tablet(s) PO BID 07/19/2018 Inactive Toujeo SoloStar U-300 Insulin 300 unit/mL (1.5 mL) subcutaneous pen RxNorm: 1615648 15 Unit(s) SQ QHS MANAGED BY DR. JOHNSON 201703/12/2018 Inactive Multaq 400 mg tablet RxNorm: 835599 1 Tablet(s) PO BID 201712/14/2018 Active potassium chloride ER 10 mEq tablet,extended release RxNorm: 981417 1 Tablet(s) PO daily while on the Lasix 10/18/201701/2018 Inactive losartan 50 mg tablet RxNorm: 797187 1 Tablet(s) PO QAM 201601/17/2018 Inactive Lasix 20 mg tablet RxNorm: 232775 1 Tablet(s) PO daily 201610/03/2017 Inactive potassium chloride ER 10 mEq tablet,extended release RxNorm: 848611 1 Tablet(s) PO daily while on the Lasix 08/30/2017 Inactive Toujeo SoloStar 300 unit/mL (1.5 mL) subcutaneous insulin pen RxNorm: 8157735 35 Unit(s) SQ QHS MANAGED BY DR. JOHNSON 06/15/2017 10/12/2017 Inactive Eliquis 5 mg tablet RxNorm: 0994805 TAKE ONE TABLET BY MOUTH TWICE DAILY 03/01/2017 02/23/2018 Inactive Januvia 100 mg tablet RxNorm: 718710 1/2 Tablet(s) PO daily 07/19/2018 Inactive losartan 50 mg tablet RxNorm: 615594 1 Tablet(s) PO BID 201509/13/2017 Inactive amlodipine 10 mg tablet RxNorm: 802479 1 Tablet(s) PO daily 06/14/2017 Inactive generic for NORVASC losartan 50 mg tablet RxNorm: 069042 1 Tablet(s) PO daily 201508/31/2016 Inactive Toujeo SoloStar 300 unit/mL (1.5 mL) subcutaneous insulin pen RxNorm: 5895543 40 Unit(s) SQ QHS MANAGED BY DR. JOHNSON 07/01/2016 06/14/2017 Inactive Toujeo SoloStar 300 unit/mL (1.5 mL) subcutaneous insulin pen RxNorm: 8101361 35 Unit(s) SQ QHS MANAGED BY DR. JOHNSON 06/02/2016 06/30/2016 Inactive Humalog 100 unit/mL subcutaneous solution RxNorm: 148643 15 Unit(s) SQ AC MANAGED BY DR. JOHNSON 06/02/2016 03/12/2018 Inactive carvedilol 3.125 mg tablet RxNorm: 650389 1 Tablet(s) PO BID 04/23/2016 Inactive simvastatin 40 mg tablet RxNorm: 948566 1 Tablet(s) PO QHS 07/19/2018 Inactive Humalog 100 unit/mL subcutaneous solution RxNorm: 192031 13 Unit(s) SQ AC MANAGED BY DR. JOHNSON 01/26/2016 06/01/2016 Inactive Eliquis 5 mg tablet RxNorm: 3984374 1 Tablet(s) PO BID 201501/13/2017 Inactive carvedilol 6.25 mg tablet RxNorm: 950363 1 Tablet(s) PO BID 2016 Inactive Humalog 100 unit/mL subcutaneous solution RxNorm: 688362 Unit(s) SQ UD as directed by office 08/07/2015 01/25/2016 Inactive Klor-Con 10 mEq tablet,extended release RxNorm: 572865 1 Tablet(s) PO daily as needed 06/26/2015 10/23/2015 Inactive Lasix 20 mg tablet RxNorm: 1 Tablet(s) PO daily as needed 06/26/2015 10/23/2015 Inactive metoprolol succinate ER 50 mg tablet,extended release 24 hr RxNorm: 204660 1 Tablet(s) PO daily No Start Date Active melatonin 3 mg tablet RxNorm: 620262 1 Tablet(s) PO QHS as needed insomnia No Start Date Active aspirin 81 mg capsule,delayed release RxNorm: 994745 1 Capsule(s) PO daily No Start Date Active Co Q-10 50 mg capsule RxNorm: 853246 1 Capsule(s) PO daily No Start Date Active Lasix 20 mg tablet RxNorm: 1 Tablet(s) PO daily as needed edema No Start Date Active Culturelle Probiotics 10 billion cell-200 mg capsule RxNorm: 1 Capsule(s) PO TID No Start Date Active losartan 25 mg tablet RxNorm: 560727 1 Tablet(s) PO daily No Start Date 08/31/2016 Inactive losartan 100 mg tablet RxNorm: 314407 1 Tablet(s) PO daily No Start Date 06/30/2016 Inactive gentamicin 0.3 % eye drops RxNorm: 515752 2 Drop(s) ophthalmic (eye) left eye Q8 No Start Date 04/15/2018 Inactive fluticasone 50 mcg/actuation nasal spray,suspension RxNorm: 836081 2 [place] NASAL daily No Start Date 09/03/2018 Inactive Multaq 400 mg tablet RxNorm: 023645 1 Tablet(s) PO BID No Start Date 12/19/2017 Inactive Klor-Con 10 mEq tablet,extended release RxNorm: 704871 1 Tablet(s) PO daily as needed No Start Date 06/25/2015 Inactive Novolog U-100 Insulin aspart 100 unit/mL subcutaneous solution RxNorm: 729486 SSI 80-150 10u 151-200 15u 201-300 17u over 300 21u Unit(s) SQ AC & HS as needed No Start Date 10/07/2018 Inactive simvastatin 40 mg tablet RxNorm: 823348 1 Tablet(s) PO daily No Start Date 02/04/2016 Inactive carvedilol 6.25 mg tablet RxNorm: 590055 1 Tablet(s) PO BID No Start Date 11/30/2015 Inactive cetirizine 10 mg tablet RxNorm: 7445927 1 Tablet(s) PO daily No Start Date 09/03/2018 Inactive Eliquis 5 mg tablet RxNorm: 2328993 1 Tablet(s) PO BID No Start Date 01/19/2016 Inactive Toujeo SoloStar 300 unit/mL (1.5 mL) subcutaneous insulin pen RxNorm: 9832460 33 Unit(s) SQ QHS MANAGED BY DR. JOHNSON No Start Date 06/01/2016 Inactive Lasix 20 mg tablet RxNorm: 932529 1 Tablet(s) PO daily as needed No Start Date 06/25/2015 Inactive atorvastatin 40 mg tablet RxNorm: 772010 1 Tablet(s) PO daily No Start Date 09/03/2018 Inactive Humalog 100 unit/mL subcutaneous solution RxNorm: 848875 10 Unit(s) SQ TID No Start Date 08/06/2015 Inactive amlodipine 5 mg tablet RxNorm: 775185 1 Tablet(s) PO daily No Start Date 08/31/2016 Inactive Norvasc 2.5 mg tablet RxNorm: 627474 1 Tablet(s) PO daily No Start Date 04/02/2018 Inactive Medication Administered Medication Codes Instructions Start Date Status Kenalog 40 mg/mL suspension for injection RxNorm: 5576494 1Milliliter 09/25/2018 No longer Active Kenalog 40 mg/mL suspension for injection RxNorm: 2890390 1Milliliter 04/12/2018 No longer Active Immunizations Vaccine Codes Date Status Influenza CVX: 141 06/02/2016 completed Influenza CVX: 141 07/17/2015 completed Influenza CVX: 141 06/18/2014 completed Pneumococcal CVX: 33 06/18/2014 completed Assessments Condition Codes Effective Dates Other allergic rhinitis ICD-10: J30.89 ICD-9: 477.8 [...] Visit Reason For Visit Effective Dates Notes sinus congestion 09/25/2018 edema 09/14/2018 Hospital Follow [...] 31.2 pg 05/25/2017 Cbc With Differential Ord2 [place]% 8.9 % 05/25/2017 Cbc With Differential Ord2 [...] 3.78 K/ul 05/25/2017 Cbc With Differential Ord2 [place] ABS# 0.7 K/ul 05/25/2017 Cbc With Differential Ord2 Eos ABS# 0.8 K/ul 05/25/2017 Cbc With Differential Ord2 Baso ABS# 0.3 K/ul 05/25/2017 Manual Differential Ord52 D-Neutr 50 % 05/25/2017 Manual Differential Ord52 D-Lymph 38 % 05/25/2017 Manual Differential Ord52 D-Eos 10 % 05/25/2017 Manual Differential Ord52 D-1 2 NRBC 05/25/2017 Comp Metabolic Otl913 NA 140 mEq/L 05/25/2017 Comp Metabolic Dfp859 K 4.0 mEq/L 05/25/2017 Comp Metabolic Fze179 CL 107 mEq/L 05/25/2017 Comp Metabolic Wpi766 CO2 22.0 mEq/L 05/25/2017 Comp Metabolic Aoe570 ANION GAP 15 05/25/2017 Comp Metabolic Mmh376 GLUCOSE 97 mg/dL 05/25/2017 Comp Metabolic Jbp198 Creat 0.9 mg/dL 05/25/2017 Comp Metabolic Fkv339 eGFR 61 ml/min/1.73m2 05/25/2017 Comp Metabolic Sev831 BUN 16 mg/dL 05/25/2017 Comp Metabolic Wwm152 B/C Ratio 17.4 Ratio 05/25/2017 Comp Metabolic Zjh546 CALCIUM 9.1 mg/dL 05/25/2017 Comp Metabolic Vmg867 ALK PHOS 109 U/L 05/25/2017 Comp Metabolic Czd202 AST(SGOT) 19 U/L 05/25/2017 Comp Metabolic Wbx690 ALT(SGPT) 17 U/L 05/25/2017 Comp Metabolic Ayf996 BILI T 0.4 mg/dL 05/25/2017 Comp Metabolic Wgh257 ALBUMIN 3.3 g/dL 05/25/2017 Comp Metabolic Yjt374 TPRO 6.0 g/dL 05/25/2017 Comp Metabolic Cvx708 GLOB 2.7 g/dL 05/25/2017 Comp Metabolic Xww486 A/G Ratio 1.2 Ratio 05/25/2017 Comp Metabolic Tkv446 Osmo 281 mOsmo 05/25/2017 Lipid Ord30 CHOL 204 mg/dL 05/25/2017 Lipid Ord30 HDL 49.0 mg/dl 05/25/2017 Lipid Ord30 TRIG 117 mg/dL 05/25/2017 Lipid Ord30 LDL 132 mg/dL 05/25/2017 Lipid Ord30 C/HDL 4.2 Ratio 05/25/2017 %Hba1C Opp457 % HbA1c 16353-0 10.5 % 05/25/2017 %Hba1C Gdr300 Gluc Ave 255 mg/dL 05/25/2017 Microalbumin Ref055 MicroAlb 95.0 mg/dL 05/25/2017 Review of Systems System Result Effective Dates Constitutional recent illness 09/25/2018 Constitutional No chills [...] level 09/25/2018 None Full Exam - General 1994 Ears/Nose/Throat lips/teeth/gingiva Overall: benign lips 09/25/2018 None [...] CPT-4: J3301 09/25/2018 THER/PROPH/DIAG INJ SC/IM CPT-4: 02134 09/25/2018 DRAIN/INJECT JOINT/BURSA CPT-4: 57613 04/12/2018 TRIAMCINOLONE ACET INJ NOS CPT-4: J3301 04/12/2018 PPPS, SUBSEQ VISIT CPT -4: G0439 02/22/2018 ADMIN INFLUENZA VIRUS VAC CPT-4: G0008 06/02/2016 FLU VACC PRSV FREE INC ANTIG CPT-4: 05598 06/02/2016 Vital Signs Date Vital 09/25/2018 Blood Pressure 1: 140/62 Code : 8480-6 BMI: 27.4 Code : 61724-2 Heart Rate 1 : 89 bpm Height: 4'8" SpO2: 97% Temperature: 37.6 (C) / 99.6 (F) Weight: 122 lbs 09/14/2018 Blood Pressure 1: 148/72 Code : 8480-6 BMI: 27.4 Code : 95217-9 Heart Rate 1 : 68 bpm Height: 4'8" SpO2: 98% Weight: 122 lbs 09/04/2018 Blood Pressure 1: 152/60 Code : 8480-6 BMI: 27.1 Code : 34862-0 Heart Rate 1 : 56 bpm Height: 4'8" SpO2: 96% Weight: 121 lbs 08/17/2018 Blood Pressure 1: 140/66 Code : 8480-6 BMI: 25.3 Code : 08769-6 Heart Rate 1 : 66 bpm Height: 4'8" SpO2: 97% Weight: 113 lbs 08/08/2018 Blood Pressure 1: 174/70 Code : 8480-6 BMI: 25.3 Code : 81671-5 Heart Rate 1 : 60 bpm Height: 4'8" SpO2: 97% Weight: 113 lbs 07/17/2018 Blood Pressure 1: 148/62 Code : 8480-6 BMI: 24.9 Code : 64249-3 Heart Rate 1 : 65 bpm Height: 4'8" SpO2: 97% Weight: 111 lbs 06/26/2018 Blood Pressure 1: 118/72 Code : 8480-6 BMI: 25.1 Code : 14925-4 Heart Rate 1 : 58 bpm Height: 4'8" SpO2: 97% Weight: 112 lbs 06/21/2018 Blood Pressure 1: 120/72 Code : 8480-6 BMI: 25.1 Code : 42181-2 Heart Rate 1 : 56 bpm Height: 4'8" SpO2: 96% Weight: 112 lbs 05/02/2018 Blood Pressure 1: 178/76 Code : 8480-6 BMI: 24.7 Code : 74859-2 Heart Rate 1 : 72 bpm Height: 4'8" SpO2: 98% Weight: 110 lbs 04/27/2018 Blood Pressure 1: 164/78 Code : 8480-6 BMI: 24.7 Code : 17326-4 Heart Rate 1 : 69 bpm Height: 4'8" SpO2: 97% Weight: 110 lbs 04/20/2018 Blood Pressure 1: 140/80 Code : 8480-6 BMI: 24.7 Code : 03299-1 Heart Rate 1 : 83 bpm Height: 4'8" SpO2: 97% Weight: 110 lbs 04/12/2018 Blood Pressure 1: 14678 Code : 8480-6 Heart Rate 1: 68 bpm Height: SpO2: 98% Weight: 04/10/2018 Blood Pressure 1: 146/60 Code : 8480-6 BMI: 24.7 Code : 58536-8 Heart Rate 1 : 60 bpm Height: 4'8" SpO2: 95% Weight: 110 lbs 04/03/2018 Blood Pressure 1: 204/80 Code : 8480-6 BMI: 24.9 Code : 57258-3 Heart Rate 1 : 62 bpm Height: 4'8" SpO2: 98% Weight: 111 lbs 03/13/2018 Blood Pressure 1: 140/68 Code : 8480-6 BMI: 25.6 Code : 46017-6 Heart Rate 1 : 68 bpm Height: 4'8" SpO2: 95% Weight: 114 lbs 02/22/2018 Blood Pressure 1: 166/88 Code : 8480-6 BMI: 24.7 Code : 12024-3 Heart Rate 1 : 72 bpm Height: 4'8" SpO2: 95% Weight: 110 lbs 02/01/2018 Blood Pressure 1: 162/70 Code : 8480-6 BMI: 23.2 Code : 60748-3 Heart Rate 1 : 64 bpm Height: 4'11" SpO2: 95% Weight: 115 lbs 01/18/2018 Blood Pressure 1: 192/86 Code : 8480-6 BMI: 22.6 Code : 94181-4 Heart Rate 1 : 68 bpm Height: 4'11" SpO2: 94% Weight: 112 lbs 12/21/2017 Blood Pressure 1: 110/52 Code : 8480-6 BMI: 23.0 Code : 45781-9 Heart Rate 1 : 58 bpm Height: 4'11" SpO2: 94% Weight: 114 lbs 10/10/2017 Blood Pressure 1: 168/78 Code : 8480-6 BMI: 23.0 Code : 91605-7 Heart Rate 1 : 54 bpm Height: 4'11" SpO2: 98% Weight: 114 lbs 09/07/2017 Blood Pressure 1: 142/72 Code : 8480-6 Heart Rate 1: 84 bpm Height: 4'11" SpO2: 97% Weight: 08/30/2017 Blood Pressure 1: 188/82 Code : 8480-6 BMI: 24.4 Code : 74259-5 Heart Rate 1 : 79 bpm Height: 4'11" SpO2: 88% Temperature: 38.5 (C) / 101.3 (F) Weight: 121 lbs 08/15/2017 Blood Pressure 1: 166/78 Code : 8480-6 BMI: 22.8 Code : 17021-0 Heart Rate 1 : 71 bpm Height: 4'11" SpO2: 96% Weight: 113 lbs 06/15/2017 Blood Pressure 1: 138/68 Code : 8480-6 BMI: 22.8 Code : 02472-4 Heart Rate 1 : 54 bpm Height: 4'11" SpO2: 98% Weight: 113 lbs 05/29/2017 Blood Pressure 1: 96/46 Code : 8480-6 Blood Pressure 2: 116/57 Code: 8480-6 Heart Rate 1: 54 bpm 05/11/2017 Blood Pressure 1: 144/60 Code : 8480-6 BMI: 23.8 Code : 39888-8 Heart Rate 1 : 68 bpm Height: 4'11" SpO2: 97% Weight: 118 lbs 01/05/2017 Blood Pressure 1: 134/72 Code : 8480-6 BMI: 24.8 Code : 84395-3 Heart Rate 1 : 64 bpm Height: 4'11" SpO2: 94% Weight: 123 lbs 09/20/2016 Blood Pressure 1: 148/66 Code : 8480-6 BMI: 25.4 Code : 34816-6 Heart Rate 1 : 68 bpm Height: 4'11" SpO2: 97% Weight: 126 lbs 09/01/2016 Blood Pressure 1: 162/80 Code : 8480-6 BMI: 26.1 Code : 37636-3 Heart Rate 1 : 75 bpm Height: 4'11" SpO2: 95% Weight: 129 lbs 06/02/2016 Blood Pressure 1: 144/82 Code : 8480-6 BMI: 25.4 Code : 71982-9 Heart Rate 1 : 68 bpm Height: 4'11" SpO2: 98% Weight: 126 lbs 03/25/2016 Blood Pressure 1: 140/58 Code : 8480-6 BMI: 25.9 Code : 17630-0 Heart Rate 1 : 58 bpm Height: 4'11" SpO2: 95% Weight: 128 lbs 01/26/2016 Blood Pressure 1: 138/68 Code : 8480-6 BMI: 26.3 Code : 18717-9 Heart Rate 1 : 66 bpm Height: 4'11" SpO2: 96% Weight: 130 lbs 10/29/2015 Blood Pressure 1: 180/78 Code : 8480-6 BMI: 25.7 Code : 12921-4 Heart Rate 1 : 74 bpm Height: 4'11" SpO2: 97% Weight: 127 lbs 07/21/2015 Blood Pressure 1: 136/70 Code : 8480-6 BMI: 25.9 Code : 45161-2 Heart Rate 1 : 63 bpm Height: 4'11" SpO2: 95% Weight: 128 lbs 07/08/2015 Blood Pressure 1: 140/70 Code : 8480-6 BMI: 26.5 Code : 33508-8 Heart Rate 1 : 59 bpm Height: 4'11" SpO2: 94% Weight: 131 lbs 5 oz 05/04/2015 Blood Pressure 1: 140/60 Code : 8480-6 BMI: 25.7 Code : 81899-3 Heart Rate 1 : 60 bpm Height: 4'11" SpO2: 94% Weight: 127 lbs Functional Status No Functional Status data History of Present Illness Symptom Name Status Result Effective Date Notes Location frontal sinuses 09/25/2018 None Quality fullness [...] Performer Location Codes Date EST. PATIENT, LEVEL IV Diagnosis: Other acute sinusitis[ICD10: J01.80] Diagnosis: Other allergic rhinitis[ICD10: J30.89] Diagnosis: Localized edema[ICD10: R60.0] Diagnosis: Cough[ICD10: R05] Elizabeth Sow MD, [facility] CPT-4: 52059 09/25/2018 [id number] EST. PATIENT, LEVEL IV Diagnosis: Localized edema[ICD10: R60.0] Elizabeth Sow MD, [facility] CPT-4 : 63135 09/14/2018 ([id number]) 21901 EST. PATIENT, LEVEL IV Diagnosis: Essential (primary) hypertension[ICD10: I10] Diagnosis: Localized edema[ICD10: R60.0] Diagnosis: Type 2 diabetes mellitus with hyperglycemia[ICD10: E11.65] Laney Sow MD, [facility] CPT-4: 07990 09/04/2018 00707 EST. PATIENT, LEVEL III Diagnosis: Essential (primary) hypertension[ICD10: I10] Diagnosis: Type 2 diabetes mellitus without complications[ICD10: E11.9] Diagnosis: Myalgia, other site[ICD10: M79.18] Elizabeth Sow MD [facility] CPT-4: 46909 08/17/2018 ([id number]) 50024 EST. PATIENT, LEVEL IV Diagnosis: Essential (primary) hypertension[ICD10: I10] Diagnosis: Type 2 diabetes mellitus without complications[ICD10: E11.9] Kate Sow MD [facility] CPT-4: 38347 08/08/2018 04992 EST. PATIENT, LEVEL III Diagnosis: Type 2 diabetes mellitus with hyperglycemia[ICD10: E11.65] Elizabeth Sow MD [facility] CPT-4: 52012 07/17/2018 15860 EST. PATIENT, LEVEL III Diagnosis: Type 2 diabetes mellitus with hyperglycemia[ICD10: E11.65] Diagnosis: Weakness[ICD10: R53.1] Diagnosis: Unsteadiness on feet[ICD10: R26.81] Elizabeth Sow MD [facility] CPT-4: 40660 06/26/2018 ([id number]) 13874 EST. PATIENT, LEVEL IV Diagnosis: Type 2 diabetes mellitus with hyperglycemia[ICD10: E11.65] Diagnosis: Essential (primary) hypertension[ICD10: I10] Diagnosis: Muscle weakness (generalized)[ICD10: M62.81] Diagnosis: Localized edema[ICD10: R60.0] Kate Sow MD [facility] CPT- 4: 33828 06/21/2018 ([id number]) 83842 EST. 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 CPT-4: 06626 18347 EST. PATIENT, LEVEL III Diagnosis: Low back pain[ICD10: M54.5] Elizabeth Sow MD [facility] CPT-4 : 16099 04/27/2018 ([id number]) 55499 EST. PATIENT, LEVEL IV Diagnosis: Diplopia[ICD10: H53.2] Diagnosis: Rash and other nonspecific skin eruption[ICD10: R21] Diagnosis: Type 2 diabetes mellitus with hyperglycemia[ICD10: E11.65] Laney Sow MD, [facility] CPT-4: 66106 04/20/2018 ([id number]) 93732 EST. PATIENT, LEVEL III Diagnosis: Low back pain[ICD10: M54.5] Elizabeth Sow MD [facility] CPT-4 : 49329 04/12/2018 ([id number]) 22228 EST. PATIENT, LEVEL III Diagnosis: Essential (primary) hypertension[ICD10: I10] Diagnosis: Type 2 diabetes mellitus with hyperglycemia[ICD10: E11.65] Kate Sow MD , [facility] CPT-4: 21256 04/10/2018 ([id number]) 43340 EST. PATIENT, LEVEL III Diagnosis: Lumbago with sciatica, left side[ICD10: M54.42] Diagnosis: Essential (primary) hypertension[ICD10: I10] Laney Sow MD, [facility] CPT-4: 70760 04/03/2018 ([id number]) 20608 EST. PATIENT, LEVEL IV Diagnosis: Type 2 diabetes mellitus with hyperglycemia[ICD10: E11.65] Diagnosis: Essential (primary) hypertension[ICD10: I10] Kate Sow MD [facility] CPT-4: 12954 03/13/2018 ([id number]) 26352 EST. PATIENT, LEVEL IV Diagnosis: Essential (primary) hypertension[ICD10: I10] Diagnosis: Type 2 diabetes mellitus with hyperglycemia[ICD10: E11.65] Kate Sow MD [facility] CPT-4: 61559 02/01/2018 ([id number]) 88987 EST. PATIENT, LEVEL IV Diagnosis: Type 2 diabetes mellitus with hyperglycemia[ICD10: E11.65] Diagnosis: Essential (primary) hypertension[ICD10: I10] Kate Sow MD, [facility] CPT-4: 20703 01/18/2018 ([id number]) Miscellaneous no charge Diagnosis: Type 2 diabetes mellitus with hyperglycemia[ICD10: E11.65] Elizabeth Sow MD [facility] CPT-4: 82599 12/22/2017 ([id number]) 69740 EST. PATIENT, LEVEL IV Diagnosis: Type 2 diabetes mellitus with hyperglycemia[ICD10: E11.65] Diagnosis: Essential (primary) hypertension[ICD10: I10] Diagnosis: Muscle weakness (generalized)[ICD10: M62.81] Kate Sow MD, [facility] CPT-4: 85576 12/21/2017 92739 EST. PATIENT, LEVEL IV Diagnosis: Type 2 diabetes mellitus without complications[ICD10: E11.9] Diagnosis: Mixed hyperlipidemia[ICD10: E78.2] Diagnosis: Essential (primary) hypertension[ICD10: I10] Elizabeth Sow MD, [facility] CPT-4: 81091 10/10/2017 36850 EST. PATIENT, LEVEL III Diagnosis: Weakness[ICD10: R53.1] Diagnosis: Essential (primary) hypertension[ICD10: I10] Elizabeth Sow MD, [facility] CPT-4: 67749 09/07/2017 00835 EST. PATIENT, LEVEL III Diagnosis: Encounter for follow-up examination after completed treatment for conditions other than malignant neoplasm[ICD10: Z09] Diagnosis: Weakness[ICD10: R53.1] Diagnosis: Essential (primary) hypertension[ICD10: I10] Diagnosis: Dyspnea, unspecified[ICD10: R06.00] Diagnosis: Unsteadiness on feet[ICD10: R26.81] Elizabeth Sow MD, [facility] CPT-4: 25147 08/30/2017 ([id number]) 06713 EST. PATIENT, LEVEL IV Diagnosis: Type 2 diabetes mellitus without complications[ICD10: E11.9] Diagnosis: Essential (primary) hypertension[ICD10: I10] Kate Sow MD, [facility] CPT-4: 67283 08/15/2017 ([id number]) 58154 EST. PATIENT, LEVEL IV Diagnosis: Type 2 diabetes mellitus without complications[ICD10: E11.9] Diagnosis: Essential (primary) hypertension[ICD10: I10] Diagnosis: Unsteadiness on feet[ICD10: R26.81] Kate Sow MD, [facility] CPT-4: 73404 06/15/2017 ([id number]) Miscellaneous no charge Diagnosis: Essential (primary) hypertension[ICD10: I10] Laney Sow MD, [facility] CPT-4: 44631 05/29/2017 ([id number]) 84299 EST. PATIENT, LEVEL IV Diagnosis: Type 2 diabetes mellitus without complications[ICD10: E11.9] Diagnosis: Essential (primary) hypertension[ICD10: I10] Diagnosis: Mixed hyperlipidemia[ICD10: E78.2] Kate Sow MD, [facility] CPT-4: 86977 05/11/2017 ([id number]) 78566 EST. PATIENT, LEVEL IV Diagnosis: Type 2 diabetes mellitus without complications[ICD10: E11.9] Diagnosis: Essential (primary) hypertension[ICD10: I10] Kate Sow MD [facility] CPT-4: 43095 01/05/2017 ([id number]) 82940 EST. PATIENT, LEVEL III Diagnosis: Essential (primary) hypertension[ICD10: I10] Kate Sow MD [facility] CPT-4: 63609 09/20/2016 ([id number]) 24093 EST. PATIENT, LEVEL III Diagnosis: Essential (primary) hypertension[ICD10: I10] Laney Sow MD, [facility] CPT-4: 98490 09/01/2016 ([id number]) Miscellaneous no charge Diagnosis: Impacted cerumen, right ear[ICD10: H61.21] Elizabeth Sow MD, [facility] CPT-4: 44121 06/08/2016 ([id number]) 71871 EST. PATIENT, LEVEL IV Diagnosis: Type 2 diabetes mellitus without complications[ICD10: E11.9] Diagnosis: Essential (primary) hypertension[ICD10: I10] Diagnosis: Encounter for immunization[ICD10: Z23] Kate Sow MD, [facility] CPT-4: 15912 06/02/2016 [id number] EST. PATIENT, LEVEL III Diagnosis: Essential (primary) hypertension[ICD10: I10] Diagnosis: Other specified cardiac arrhythmias[ICD10: I49.8] Elizabeth Sow MD, [facility] CPT-4: 42203 03/25/2016 ([id number]) 81973 EST. PATIENT, LEVEL IV Diagnosis: Type 2 diabetes mellitus without complications[ICD10: E11.9] Diagnosis: Essential (primary) hypertension[ICD10: I10] Kate Sow MD, [facility] CPT-4: 03735 01/26/2016 ([id number]) 46396 EST. PATIENT, LEVEL IV Diagnosis: Essential (primary) hypertension[ICD10: I10] Diagnosis: Type 2 diabetes mellitus without complications[ICD10: E11.9] Kate Sow MD, [facility] CPT-4: 71963 10/29/2015 ([id number]) 21169 EST. PATIENT, LEVEL IV Diagnosis: Essential (primary) hypertension[ICD10: I10] Diagnosis: Dyspnea, unspecified[ICD10: R06.00] Kate Sow MD, [facility] CPT-4: 50231 07/21/2015 ([id number]) 57531 EST. PATIENT, LEVEL III Diagnosis: Edema, unspecified[ICD10: R60.9] Kate Sow MD, [facility] CPT-4: 09115 07/08/2015 ([id number]) OFFICE VISIT, NEW - LEVEL 4 Diagnosis: ESSENTIAL HYPERTENSION[ICD9: 401.9] Diagnosis: DIABETES TYPE II[ICD9: 250.00] Kate Sow MD, [facility] CPT- 4: 35104 05/04/2015 Plan of Care Planned Activity Notes Codes Status Date Visit Plan: URI - Pt advised to [...] peripheral edema. 09/25/2018 Appointment: Elizabeth Milner WPtel: [address] [place], [place] [phone] (15 min) Moderate 09/25/2018 Patient Education: Patient [...] edema. 09/14/2018 Appointment: [phone] (15 min) Moderate 09/14/2018 Patient Education: Patient Medication Summary Completed 09/14/2018 Visit Plan: Hypertension - well controlled at the CT- continue with current medications, continue with no [...] time. 09/04/2018 Appointment: Laney Mcmillan WPtel: [phone] [phone] (30 min) Complex 09/04/2018 Patient Education: Patient Medication Summary Completed 09/04/2018 Patient Education: Diabetes Completed 09/04/2018 Appointment: Laney Mcmillan WPtel: [phone] [phone] (15 min) Moderate 08/28/2018 Visit Plan: Hypertension [...] or concerns. 08/17/2018 Appointment: Elizabeth Milner WPtel: [facility] (15 min) Moderate 08/17/2018 Patient Education: Patient [...] acute concerns. 08/08/2018 Appointment: Kate Sow WPtel: [facility]5 [facility] 30 min appointments only in this slot 08/08/2018 Patient Education: Patient Medication Summary Completed 08/08/2018 Patient Education: Diabetes Completed 08/08/2018 Appointment: Kate Sow WPtel: [address] [place], [place] [phone] (15 min) Moderate 08/07/2018 Visit Plan: Diabetes [...] control. 07/17/2018 Appointment: Elizabeth Milner [facility]el[phone] (15 min) Moderate 07/17/2018 Patient Education: Patient [...] instability. 06/26/2018 Appointment: Elizabeth Milner [phone] [facility] (15 min) Moderate 06/26/2018 Patient Education: Patient Medication Summary Completed 06/26/2018 Patient Education: Diabetes Completed 06/26/2018 Visit Plan: Diabetes improved control while at the care home - discussed with patient and her [...] Appointment: Kate Sow WPtel: [facility]4 [facility] (15 min) Moderate 06/21/2018 Patient Education: Patient Medication Summary Completed 06/21/2018 Patient Education: Diabetes Completed 06/21/2018 Appointment: Kate Sow WPtel: [facility]3 [facility] (15 min) Moderate 05/09/2018 Visit Plan: Uncontrolled [...] better. 05/02/2018 Appointment: Kate Sow WPtel: [phone] [facility] (15 min) Moderate 05/02/2018 Patient Education: Patient Medication Summary Completed 05/02/2018 Care Plan: X-RAY EXAM L-S SPINE 2/3 [facility] LOINC : 15427-4 Pending 05/02/2018 Visit Plan: Low back pain- the patient was instructed in appropriate posture - The pt is to use prn antiinflammatories to manage acute pain. The patient is to call the office if the pain is worsening or does not improve. 04/27/2018 Appointment: Elizabeth Milner [facility]Ptel: [phone] [facility] [place] (15 min) Moderate 04/27/2018 Patient Education: Patient Medication Summary Completed 04/27/2018 Visit Plan: Double vision-suspect due to elevated blood sugars -recommend patient bring in log of blood sugars to next appt -notify hunter trapper of elevated readings and watch diet closely -also recommend f/u with eye doctor Rash-suspect shingles-rx for acyclovir provided and instructed on use 04/20/2018 Appointment: Laney Mcmillan WPtel: [phone] [phone] (15 min) Moderate 04/20/2018 Patient Education: Patient [...] they worsen. 04/12/2018 Appointment: Elizabeth Milner WPtel: [phone] [facility] (15 min) Moderate 04/12/2018 Patient Education: Patient [...] controlled. 04/10/2018 Appointment: Kate Sow WPtel: [phone] [facility] (15 min) Moderate 04/10/2018 Patient [...] call for acute concerns. 04/03/2018 Appointment: Laney cMmillan WPtel: [phone] [phone] [place] (15 min) Moderate 04/03/2018 Patient Education: [...] home. 03/13/2018 Appointment: Kate Sow [facility]Ptel: [phone] [place] (15 min) Moderate 03/13/2018 Patient Education: [...] Continue with diabetic diet. 02/01/2018 Appointment: Kate Swo WPtel: [address] [place] [address] (15 min) Moderate 02/01/2018 Patient Education: Patient [...] daily. 01/18/2018 Appointment: Kate Sow WPtel: [phone] [place] (15 min) Moderate 01/18/2018 Patient Education: Patient Medication Summary Completed 01/18/2018 Appointment: Kate Sow WPtel: [phone] [facility] [place] (15 min) Moderate 01/11/2018 Appointment: Kate Sow WPtel: [phone] [facility] (15 min) Moderate 12/25/2017 Visit Plan: Diabetes [...] home. Generalized weakness - physical therapy at [facility] outpt 12/21/2017 Appointment: [place] Kate WPtel: [phone] [facility] [place] (15 min) Moderate 12/21/2017 Patient Education: Patient Medication Summary Completed 12/21/2017 Appointment: Kate Sow WPtel: [phone] [facility] [place] (15 min) Moderate 12/13/2017 Visit Plan: [...] control. 10/10/2017 Appointment: Elizabeth Milner WPtel: [phone] [facility] [place] (15 min) Moderate 10/10/2017 Patient Education: [...] home. 09/07/2017 Appointment: Elizabeth Milner WPtel: [phone] [phone] (30 min) Complex 09/07/2017 Patient Education: Patient Medication Summary Completed 09/07/2017 Appointment: Kate Sow WPtel: [phone] [facility] (15 min) Moderate 09/05/2017 Visit Plan: Hospital follow up - Dr. Sow in to see pt - pt was in the hospital with uncontrolled hypertension and a. fib - controlled at this time - persistent weakness requiring ongoing PT and assistance with some ADLs and medication management - will [facility] pt to [facility] for [facility]. 08/30/2017 Appointment: Elizabeth Milner WPtel: [phone] [facility] [place] (30 min) Complex 08/30/2017 Patient Education: Patient Medication Summary Completed 08/30/2017 Appointment: Elizabeth Milner WPtel: [phone] [phone] (15 min) Moderate 08/29/2017 Visit Plan: Diabetes [...] home. 08/15/2017 Appointment: Kate Sow WPtel: [phone] [facility]6[address] (15 min) Moderate 08/15/2017 Patient Education: Patient Medication Summary Completed 08/15/2017 Care Plan: [facility] 88050-7 Cancelled 08/15/2017 Referral: [facility] WPtel: [phone] [facility]66[facility] Patient's informed. Completed 06/26/2017 Visit Plan: Diabetes [...] glucose control. Gait Instability - [facility]. Hypertension - well controlled - continue with current medications , continue with no added salt diet. Pt has been encouraged to exercise daily. The pt has been advised to call the office if there are any acute concerns about change in blood pressure readings at home. 06/15/2017 Appointment: Kate Sow WPtel: [phone] [facility] (15 min) Moderate 06/15/2017 Patient Education: Patient Medication Summary Completed 06/15/2017 Care Plan: Referral Order SNOMED-CT : [id number] Pending 06/15/2017 Appointment: Nurse Visit 05/29/2017 Patient [...] and come in here or go to [facility] or [facility] to get this set of labs done. [...] with Statin 05/11/2017 Appointment: Kate Sow WPtel: [address] [place] [address] (15 min) Moderate 05/11/2017 Patient Education: Patient [...] pill daily. 01/05/2017 Appointment: Kate Sow WPtel: [facility]8 [facility] (15 min) Moderate 01/05/2017 Patient [...] home. 09/20/2016 Appointment: Kate Sow WPtel: [phone] [facility] (30 min) Complex 09/20/2016 Patient [...] acute concerns. 09/01/2016 Appointment: Laney Mcmillan WPtel: [phone] [phone] [place] (30 min) Complex 09/01/2016 Patient Education: Patient Medication Summary Completed 09/01/2016 Appointment: Kate Sow WPtel: [facility]4 [facility] [place] (15 min) Moderate 08/31/2016 Appointment: Nurse [...] less controlled. 06/02/2016 Appointment: Kate Sow WPtel: [phone] [facility]6[address] (15 min) Moderate 06/02/2016 Patient Education: Patient Medication Summary Completed 06/02/2016 Patient Education: Hypertension Completed 06/02/2016 Visit Plan: Bradycardia - reports pt has brought in indicates that the pt has been having a pulse in the 40s-50s. Will adjust medications, pt is to notify clinic if her symptoms do not improve, or with any concerns. 03/25/2016 Appointment: Laney Mcmillan WPtel: [phone] [facility] [place] [address] (10 min) Simple 03/25/2016 Patient Education: Patient [...] DM - managed by Dr. Johnson from [place] 01/26/2016 Patient Education: Patient Medication Summary Completed 01/26/2016 Patient Education: Hypertension Completed 01/26/2016 Appointment: Laney Mcmillan WPtel: [facility]9 [phone] (30 min) Complex 12/31/2015 Visit Plan: Hypertension [...] controlled. 10/29/2015 Appointment: Kate Sow WPtel: [phone] (15 min) Moderate 10/29/2015 Patient Education: Patient Medication Summary Completed 10/29/2015 Patient Education: Hypertension Completed 10/29/2015 Appointment: Kate Sow WPtel: [facility] [place] (15 min) Moderate 09/14/2015 Visit Plan: [...] today, as soon as you get to [place], monday morning, then start taking the lasix [...] Begin using muscle rub on back ([place] balm) 05/04/2015 Appointment: Kate Sow WPtel: [phone] [place] (S) New Patient 05/04/2015 Patient Education: Patient Medication Summary Completed 05/04/2015 Patient Education: Hypertension Completed 05/04/2015 [phone] Referral Appointment Requested Instructions Comment see if Dr. Johnson has the toujeo samples for you - if not , go to the pharmacy to cotton picker operator the toujeo script. if the toujeo script [...] glucose control. Gait Instability - [facility] gait [facility]. Hypertension - [...] home. Generalized weakness - [facility] with [facility] Increase amlodipine to 5mg (take 2 pills [...] started on januvia 100mg 1/2 pill daily. you need to see your eye doctor to get a dilated eye exam for complete diabetes health checks - this needs to be done every year - please have a copy sent to this office. GET YOUR NEXT SET OF LABS DONE AFTER - these need to be fasting labs - don't eat after midnight and come in here or go to [facility] or [facility] to get this set of labs done. [...] and come in here or go to [facility] or [facility] to get this set of labs done. [...] response to medications. Continue with Statin . Joint Injection - Pt was given [...] not improve or if they worsen. . Hypertension - well controlled - continue [...] DM - managed by Dr. Johnson from [place] . Diabetes Mellitus - Uncontrolled - per [...] . Hypertension - well controlled at the CT- continue with current medications, continue with no [...] medication management - will admit pt to [facility] for ongoing rehabilitation. Stop the Atorvastatin [...] , as soon as you get to [place], monday morning, then start taking the lasix [...] , as soon as you get to [place], monday morning, then start taking the lasix [...] of blood sugars to next appt -notify hunter trapper of elevated readings and watch diet closely [...] . Diabetes improved control while at the care home - discussed with patient and her [...] Begin using muscle rub on back ([place] balm) Begin taking Lasix again No blood [...] Begin using muscle rub on back ([place] balm) . Edema - pt has been [...]
[2018-12-26 07:18] LABS: BASOPHILS # (AUTO) 0.1 10^3/uL (0.0-0.1); BASOPHILS % (AUTO) 1 % (0-10); EOSINOPHILS # (AUTO) 0.5 10^3/uL (0.0-0.3); EOSINOPHILS % (AUTO) 6 % (0-10); HEMATOCRIT 42 % (35-52); HEMOGLOBIN 13.3 G/DL (11.5-16.0); LYMPHOCYTES % (AUTO) 50 % (12-44); MEAN CORPUSCULAR HEMOGLOBIN 28 PG (25-34); MEAN CORPUSCULAR HGB CONC 32 G/DL (32-36); MEAN CORPUSCULAR VOLUME 88 FL (80-99); MEAN PLATELET VOLUME 10.4 FL (7.4-10.4); MONOCYTES % (AUTO) 12 % (0-12); NEUTROPHILS # (AUTO) 2.5 X 10^3 (1.8-7.8); NEUTROPHILS % (AUTO) 31 % (42-75); PLATELET COUNT 414 10^3/uL (130-400); RED CELL DISTRIBUTION WIDTH 16.3 % (10.0-14.5); WHITE BLOOD COUNT 8.1 10^3/uL (4.3-11.0)
--- OUTSIDE RECORDS SUMMARY | 2018-12-26 07:22 | XMS REPORT | CCD ---
Author Author [facility] Organization [facility] Address [address] [place] [address] Phone Care Team Providers Care Glost Placer Name Role Phone PP Unavailable CCM Unavailable Summary Purpose Interface Exchange Insurance Providers Payer name Policy type / Coverage type Covered democrat ID Effective Begin Date Effective End Date WPS Medicare Part B Medicare Part B [id number] Unknown Unknown [employer] Medicare Part B [id number] Unknown Unknown Family history Mother Diagnosis Age [...] Unknown 2 05/04/[address]: 840613465 Never smoker 05/04/2015 Alcohol history Unknown occasionally [...] Start Date Stop Date Status Fill Instructions Kenalog 40 mg/mL suspension for injection RxNorm: 3618664 1 Milliliter(s) Inj 09/25/2018 09/25/2018 Inactive Augmentin 500 mg-125 mg tablet RxNorm: 969796 1 Tablet(s) PO TID 09/25/2018 10/04/2018 Active Estevan SolJerilynar U-300 Insulin 300 unit/mL (1.5 mL) subcutaneous pen RxNorm: 4791921 20 Unit(s) SQ QHS MANAGED BY DR. JOHNSON 2017 No Stop Date Active Voltaren 1 % topical gel RxNorm: 471850 APPLY THIN LAYER TOPICALLY TO AFFECTED AREA 4 TIMES DAILY 08/24/2018 No Stop Date Active Levaquin 250 mg tablet RxNorm: 372049 2 tabs on 1st day then 1 tab day 2-7 Tablet( s) PO daily 08/20/2018 09/03/2018 Inactive dc keflex Levaquin 250 mg tablet RxNorm: 507071 2 tabs on 1st day then 1 tab day 2-7 Tablet( s) PO daily 08/20/2018 08/19/2018 Inactive dc keflex Keflex 500 mg capsule RxNorm: 168865 1 Capsule(s) PO TID 201708/19/2018 Inactive Magnokadevipul MarreroJerilyndavid U-300 Insulin 300 unit/mL (1.5 mL) subcutaneous pen RxNorm: 6247408 25 Unit(s) SQ QHS MANAGED BY DR. JOHNSON 201709/03/2018 Inactive Norvasc 10 mg tablet RxNorm: 786912 1 Tablet(s) PO daily 201701/25/2019 Active update RX Eliquis 2.5 mg tablet RxNorm: 1779095 Tablet(s) PO TAKE ONE TABLET BY MOUTH TWICE DAILY 06/21/2018 06/15/2019 Active cyclobenzaprine 5 mg tablet RxNorm: 902093 1/2 Tablet(s) PO BID as needed muscle spasms/back pain 05/02/2018 05/31/2018 Inactive tramadol 50 mg tablet RxNorm: 132156 1 Tablet(s) PO TID as needed for pain 04/27/2018 05/01/2018 Inactive Voltaren 1 % topical gel RxNorm: 748516 1 Application TOP QID 04/27/2018 08/23/2018 Inactive acyclovir 400 mg tablet RxNorm: 142509 2 Tablet(s) PO QID 04/2006/20/2018 Inactive mupirocin 2 % topical ointment RxNorm: 560208 1 Application TOP BID 04/20/2018 04/29/2018 Inactive right cheek/nose gentamicin 0.3 % eye drops RxNorm: 498400 2 Drop(s) ophthalmic (eye) left eye Q8 04/16/2018 09/03/2018 Inactive prednisone 20 mg tablet RxNorm: 793317 2 Tablet(s) PO daily 04/12/2018 Inactive prednisone 20 mg tablet RxNorm: 675371 2 Tablet(s) PO daily 04/17/2018 Inactive Kenalog 40 mg/mL suspension for injection RxNorm: 7423519 1 Milliliter(s) Inj 04/12/2018 04/12/2018 Inactive losartan 100 mg tablet RxNorm: 952989 1 Tablet(s) PO QAM 201712/28/2018 Active update RX -dose should be 100mg Norvasc 5 mg tablet RxNorm: 184406 1 Tablet(s) PO daily 201707/29/2018 Inactive update RX losartan 50 mg tablet RxNorm: 319649 TAKE ONE TABLET BY MOUTH ONCE DAILY IN THE MORNING 03/26/2018 04/02/2018 Inactive Humalog U-100 Insulin 100 unit/mL subcutaneous solution RxNorm: 870618 15 Unit(s) SQ AC MANAGED BY DR. JOHNSON 03/13/2018 No Stop Date Active 201- 200 17 units, greater than 300 21 units Toujeo SoloStar U-300 Insulin 300 unit/mL (1.5 mL) subcutaneous pen RxNorm: 3251879 20 Unit(s) SQ QHS MANAGED BY DR. JOHNSON 201707/10/2018 Inactive losartan 100 mg tablet RxNorm: 303486 1 Tablet(s) PO QAM 201704/02/2018 Inactive pantoprazole 40 mg tablet,delayed release RxNorm: 516048 1 Tablet(s) PO daily 01/11/2018 07/19/2018 Inactive carvedilol 12.5 mg tablet RxNorm: 087011 1 Tablet(s) PO BID 07/19/2018 Inactive Toujeo SoloStar U-300 Insulin 300 unit/mL (1.5 mL) subcutaneous pen RxNorm: 1357289 15 Unit(s) SQ QHS MANAGED BY DR. JOHNSON 201703/12/2018 Inactive Multaq 400 mg tablet RxNorm: 921038 1 Tablet(s) PO BID 201712/14/2018 Active potassium chloride ER 10 mEq tablet,extended release RxNorm: 780153 1 Tablet(s) PO daily while on the Lasix 10/18/201701/2018 Inactive losartan 50 mg tablet RxNorm: 459696 1 Tablet(s) PO QAM 201601/17/2018 Inactive Lasix 20 mg tablet RxNorm: 328604 1 Tablet(s) PO daily 201610/03/2017 Inactive potassium chloride ER 10 mEq tablet,extended release RxNorm: 905291 1 Tablet(s) PO daily while on the Lasix 08/30/2017 Inactive Toujeo SoloStar 300 unit/mL (1.5 mL) subcutaneous insulin pen RxNorm: 0390934 35 Unit(s) SQ QHS MANAGED BY DR. JOHNSON 06/15/2017 10/12/2017 Inactive Eliquis 5 mg tablet RxNorm: 1927189 TAKE ONE TABLET BY MOUTH TWICE DAILY 03/01/2017 02/23/2018 Inactive Januvia 100 mg tablet RxNorm: 728199 1/2 Tablet(s) PO daily 07/19/2018 Inactive losartan 50 mg tablet RxNorm: 096500 1 Tablet(s) PO BID 201509/13/2017 Inactive amlodipine 10 mg tablet RxNorm: 401339 1 Tablet(s) PO daily 06/14/2017 Inactive generic for NORVASC losartan 50 mg tablet RxNorm: 937145 1 Tablet(s) PO daily 201508/31/2016 Inactive Toujeo SoloStar 300 unit/mL (1.5 mL) subcutaneous insulin pen RxNorm: 4336737 40 Unit(s) SQ QHS MANAGED BY DR. JOHNSON 07/01/2016 06/14/2017 Inactive Toujeo SoloStar 300 unit/mL (1.5 mL) subcutaneous insulin pen RxNorm: 0169473 35 Unit(s) SQ QHS MANAGED BY DR. JOHNSON 06/02/2016 06/30/2016 Inactive Humalog 100 unit/mL subcutaneous solution RxNorm: 989956 15 Unit(s) SQ AC MANAGED BY DR. JOHNSON 06/02/2016 03/12/2018 Inactive carvedilol 3.125 mg tablet RxNorm: 750172 1 Tablet(s) PO BID 04/23/2016 Inactive simvastatin 40 mg tablet RxNorm: 716955 1 Tablet(s) PO QHS 07/19/2018 Inactive Humalog 100 unit/mL subcutaneous solution RxNorm: 277342 13 Unit(s) SQ AC MANAGED BY DR. JOHNSON 01/26/2016 06/01/2016 Inactive Eliquis 5 mg tablet RxNorm: 7296269 1 Tablet(s) PO BID 201501/13/2017 Inactive carvedilol 6.25 mg tablet RxNorm: 010452 1 Tablet(s) PO BID 2016 Inactive Humalog 100 unit/mL subcutaneous solution RxNorm: 681648 Unit(s) SQ UD as directed by office 08/07/2015 01/25/2016 Inactive Klor-Con 10 mEq tablet,extended release RxNorm: 134951 1 Tablet(s) PO daily as needed 06/26/2015 10/23/2015 Inactive Lasix 20 mg tablet RxNorm: 1 Tablet(s) PO daily as needed 06/26/2015 10/23/2015 Inactive metoprolol succinate ER 50 mg tablet,extended release 24 hr RxNorm: 705610 1 Tablet(s) PO daily No Start Date Active aspirin 81 mg capsule,delayed release RxNorm: 495306 1 Capsule(s) PO daily No Start Date Active Novolog U-100 Insulin aspart 100 unit/mL subcutaneous solution RxNorm: 769302 SSI 80-150 10u 151-200 15u 201-300 17u over 300 21u Unit(s) SQ AC & HS as needed No Start Date Active Co Q-10 50 mg capsule RxNorm: 880782 1 Capsule(s) PO daily No Start Date Active Lasix 20 mg tablet RxNorm: 1 Tablet(s) PO daily as needed edema No Start Date Active Culturelle Probiotics 10 billion cell-200 mg capsule RxNorm: 1 Capsule(s) PO TID No Start Date Active losartan 25 mg tablet RxNorm: 081942 1 Tablet(s) PO daily No Start Date 08/31/2016 Inactive losartan 100 mg tablet RxNorm: 221278 1 Tablet(s) PO daily No Start Date 06/30/2016 Inactive gentamicin 0.3 % eye drops RxNorm: 003343 2 Drop(s) ophthalmic (eye) left eye Q8 No Start Date 04/15/2018 Inactive fluticasone 50 mcg/actuation nasal spray,suspension RxNorm: 499654 2 [place] NASAL daily No Start Date 09/03/2018 Inactive Multaq 400 mg tablet RxNorm: 617272 1 Tablet(s) PO BID No Start Date 12/19/2017 Inactive Klor-Con 10 mEq tablet,extended release RxNorm: 338451 1 Tablet(s) PO daily as needed No Start Date 06/25/2015 Inactive simvastatin 40 mg tablet RxNorm: 843628 1 Tablet(s) PO daily No Start Date 02/04/2016 Inactive carvedilol 6.25 mg tablet RxNorm: 148840 1 Tablet(s) PO BID No Start Date 11/30/2015 Inactive cetirizine 10 mg tablet RxNorm: 3889899 1 Tablet(s) PO daily No Start Date 09/03/2018 Inactive Eliquis 5 mg tablet RxNorm: 5645387 1 Tablet(s) PO BID No Start Date 01/19/2016 Inactive Toujeo SoloStar 300 unit/mL (1.5 mL) subcutaneous insulin pen RxNorm: 4965070 33 Unit(s) SQ QHS MANAGED BY DR. JOHNSON No Start Date 06/01/2016 Inactive Lasix 20 mg tablet RxNorm: 382763 1 Tablet(s) PO daily as needed No Start Date 06/25/2015 Inactive atorvastatin 40 mg tablet RxNorm: 004489 1 Tablet(s) PO daily No Start Date 09/03/2018 Inactive Humalog 100 unit/mL subcutaneous solution RxNorm: 068886 10 Unit(s) SQ TID No Start Date 08/06/2015 Inactive amlodipine 5 mg tablet RxNorm: 978823 1 Tablet(s) PO daily No Start Date 08/31/2016 Inactive Norvasc 2.5 mg tablet RxNorm: 519131 1 Tablet(s) PO daily No Start Date 04/02/2018 Inactive Medication Administered Medication Codes Instructions Start Date Status Kenalog 40 mg/mL suspension for injection RxNorm: 2498168 1Milliliter 09/25/2018 Active Kenalog 40 mg/mL suspension for injection RxNorm: 5007542 1Milliliter 04/12/2018 No longer Active Immunizations Vaccine [...] 31.2 pg 05/25/2017 Cbc With Differential Ord2 [place]% 8.9 % 05/25/2017 Cbc With Differential Ord2 [...] 3.78 K/ul 05/25/2017 Cbc With Differential Ord2 [place] ABS# 0.7 K/ul 05/25/2017 Cbc With Differential Ord2 Eos ABS# 0.8 K/ul 05/25/2017 Cbc With Differential Ord2 Baso ABS# 0.3 K/ul 05/25/2017 Manual Differential Ord52 D-Neutr 50 % 05/25/2017 Manual Differential Ord52 D-Lymph 38 % 05/25/2017 Manual Differential Ord52 D-Eos 10 % 05/25/2017 Manual Differential Ord52 D-1 2 NRBC 05/25/2017 Comp Metabolic Bhl876 NA 140 mEq/L 05/25/2017 Comp Metabolic Kcb812 K 4.0 mEq/L 05/25/2017 Comp Metabolic Izh808 CL 107 mEq/L 05/25/2017 Comp Metabolic Byw753 CO2 22.0 mEq/L 05/25/2017 Comp Metabolic Cym984 ANION GAP 15 05/25/2017 Comp Metabolic Yht379 GLUCOSE 97 mg/dL 05/25/2017 Comp Metabolic Luy820 Creat 0.9 mg/dL 05/25/2017 Comp Metabolic Wxv007 eGFR 61 ml/min/1.73m2 05/25/2017 Comp Metabolic Gkw037 BUN 16 mg/dL 05/25/2017 Comp Metabolic Wtm491 B/C Ratio 17.4 Ratio 05/25/2017 Comp Metabolic Rbz252 CALCIUM 9.1 mg/dL 05/25/2017 Comp Metabolic Eyu398 ALK PHOS 109 U/L 05/25/2017 Comp Metabolic Owe540 AST(SGOT) 19 U/L 05/25/2017 Comp Metabolic Qhm696 ALT(SGPT) 17 U/L 05/25/2017 Comp Metabolic Fly423 BILI T 0.4 mg/dL 05/25/2017 Comp Metabolic Dhf781 ALBUMIN 3.3 g/dL 05/25/2017 Comp Metabolic Gcn104 TPRO 6.0 g/dL 05/25/2017 Comp Metabolic Xux948 GLOB 2.7 g/dL 05/25/2017 Comp Metabolic Qll580 A/G Ratio 1.2 Ratio 05/25/2017 Comp Metabolic Ave708 Osmo 281 mOsmo 05/25/2017 Lipid Ord30 CHOL 204 mg/dL 05/25/2017 Lipid Ord30 HDL 49.0 mg/dl 05/25/2017 Lipid Ord30 TRIG 117 mg/dL 05/25/2017 Lipid Ord30 LDL 132 mg/dL 05/25/2017 Lipid Ord30 C/HDL 4.2 Ratio 05/25/2017 %Hba1C Kha414 % HbA1c 31967-7 10.5 % 05/25/2017 %Hba1C Iod167 Gluc Ave 255 mg/dL 05/25/2017 Microalbumin Ock394 MicroAlb 95.0 mg/dL 05/25/2017 Review of Systems [...] CPT-4: J3301 09/25/2018 THER/PROPH/DIAG INJ SC/IM CPT-4: 21638 09/25/2018 DRAIN/INJECT JOINT/BURSA CPT-4: 21357 04/12/2018 TRIAMCINOLONE ACET INJ NOS CPT-4: J3301 04/12/2018 PPPS, SUBSEQ VISIT CPT -4: G0439 02/22/2018 ADMIN INFLUENZA VIRUS VAC CPT-4: G0008 06/02/2016 FLU VACC PRSV FREE INC ANTIG CPT-4: 36301 06/02/2016 Vital Signs Date Vital 09/25/2018 Blood Pressure 1: 140/62 Code : 8480-6 BMI: 27.4 Code : 43796-5 Heart Rate 1 : 89 bpm Height: 4'8" SpO2: 97% Temperature: 37.6 (C) / 99.6 (F) Weight: 122 lbs 09/14/2018 Blood Pressure 1: 148/72 Code : 8480-6 BMI: 27.4 Code : 41367-5 Heart Rate 1 : 68 bpm Height: 4'8" SpO2: 98% Weight: 122 lbs 09/04/2018 Blood Pressure 1: 152/60 Code : 8480-6 BMI: 27.1 Code : 70608-3 Heart Rate 1 : 56 bpm Height: 4'8" SpO2: 96% Weight: 121 lbs 08/17/2018 Blood Pressure 1: 140/66 Code : 8480-6 BMI: 25.3 Code : 13220-7 Heart Rate 1 : 66 bpm Height: 4'8" SpO2: 97% Weight: 113 lbs 08/08/2018 Blood Pressure 1: 174/70 Code : 8480-6 BMI: 25.3 Code : 36377-8 Heart Rate 1 : 60 bpm Height: 4'8" SpO2: 97% Weight: 113 lbs 07/17/2018 Blood Pressure 1: 148/62 Code : 8480-6 BMI: 24.9 Code : 25369-1 Heart Rate 1 : 65 bpm Height: 4'8" SpO2: 97% Weight: 111 lbs 06/26/2018 Blood Pressure 1: 118/72 Code : 8480-6 BMI: 25.1 Code : 65978-5 Heart Rate 1 : 58 bpm Height: 4'8" SpO2: 97% Weight: 112 lbs 06/21/2018 Blood Pressure 1: 120/72 Code : 8480-6 BMI: 25.1 Code : 19696-9 Heart Rate 1 : 56 bpm Height: 4'8" SpO2: 96% Weight: 112 lbs 05/02/2018 Blood Pressure 1: 178/76 Code : 8480-6 BMI: 24.7 Code : 43504-7 Heart Rate 1 : 72 bpm Height: 4'8" SpO2: 98% Weight: 110 lbs 04/27/2018 Blood Pressure 1: 164/78 Code : 8480-6 BMI: 24.7 Code : 80746-7 Heart Rate 1 : 69 bpm Height: 4'8" SpO2: 97% Weight: 110 lbs 04/20/2018 Blood Pressure 1: 140/80 Code : 8480-6 BMI: 24.7 Code : 84247-4 Heart Rate 1 : 83 bpm Height: 4'8" SpO2: 97% Weight: 110 lbs 04/12/2018 Blood Pressure 1: 146/78 Code : 8480-6 Heart Rate 1: 68 bpm Height: SpO2: 98% Weight: 04/10/2018 Blood Pressure 1: 146/60 Code : 8480-6 BMI: 24.7 Code : 55834-2 Heart Rate 1 : 60 bpm Height: 4'8" SpO2: 95% Weight: 110 lbs 04/03/2018 Blood Pressure 1: 204/80 Code : 8480-6 BMI: 24.9 Code : 02754-2 Heart Rate 1 : 62 bpm Height: 4'8" SpO2: 98% Weight: 111 lbs 03/13/2018 Blood Pressure 1: 140/68 Code : 8480-6 BMI: 25.6 Code : 52233-5 Heart Rate 1 : 68 bpm Height: 4'8" SpO2: 95% Weight: 114 lbs 02/22/2018 Blood Pressure 1: 166/88 Code : 8480-6 BMI: 24.7 Code : 07418-9 Heart Rate 1 : 72 bpm Height: 4'8" SpO2: 95% Weight: 110 lbs 02/01/2018 Blood Pressure 1: 162/70 Code : 8480-6 BMI: 23.2 Code : 15689-4 Heart Rate 1 : 64 bpm Height: 4'11" SpO2: 95% Weight: 115 lbs 01/18/2018 Blood Pressure 1: 192/86 Code : 8480-6 BMI: 22.6 Code : 94286-4 Heart Rate 1 : 68 bpm Height: 4'11" SpO2: 94% Weight: 112 lbs 12/21/2017 Blood Pressure 1: 110/52 Code : 8480-6 BMI: 23.0 Code : 06784-2 Heart Rate 1 : 58 bpm Height: 4'11" SpO2: 94% Weight: 114 lbs 10/10/2017 Blood Pressure 1: 168/78 Code : 8480-6 BMI: 23.0 Code : 89818-7 Heart Rate 1 : 54 bpm Height: 4'11" SpO2: 98% Weight: 114 lbs 09/07/2017 Blood Pressure 1: 142/72 Code : 8480-6 Heart Rate 1: 84 bpm Height: 4'11" SpO2: 97% Weight: 08/30/2017 Blood Pressure 1: 188/82 Code : 8480-6 BMI: 24.4 Code : 83924-6 Heart Rate 1 : 79 bpm Height: 4'11" SpO2: 88% Temperature: 38.5 (C) / 101.3 (F) Weight: 121 lbs 08/15/2017 Blood Pressure 1: 166/78 Code : 8480-6 BMI: 22.8 Code : 89282-0 Heart Rate 1 : 71 bpm Height: 4'11" SpO2: 96% Weight: 113 lbs 06/15/2017 Blood Pressure 1: 138/68 Code : 8480-6 BMI: 22.8 Code : 13395-0 Heart Rate 1 : 54 bpm Height: 4'11" SpO2: 98% Weight: 113 lbs 05/29/2017 Blood Pressure 1: 96/46 Code : 8480-6 Blood Pressure 2: 116/57 Code: 8480-6 Heart Rate 1: 54 bpm 05/11/2017 Blood Pressure 1: 144/60 Code : 8480-6 BMI: 23.8 Code : 99026-1 Heart Rate 1 : 68 bpm Height: 4'11" SpO2: 97% Weight: 118 lbs 01/05/2017 Blood Pressure 1: 134/72 Code : 8480-6 BMI: 24.8 Code : 51587-6 Heart Rate 1 : 64 bpm Height: 4'11" SpO2: 94% Weight: 123 lbs 09/20/2016 Blood Pressure 1: 148/66 Code : 8480-6 BMI: 25.4 Code : 81397-1 Heart Rate 1 : 68 bpm Height: 4'11" SpO2: 97% Weight: 126 lbs 09/01/2016 Blood Pressure 1: 162/80 Code : 8480-6 BMI: 26.1 Code : 87496-0 Heart Rate 1 : 75 bpm Height: 4'11" SpO2: 95% Weight: 129 lbs 06/02/2016 Blood Pressure 1: 144/82 Code : 8480-6 BMI: 25.4 Code : 48723-3 Heart Rate 1 : 68 bpm Height: 4'11" SpO2: 98% Weight: 126 lbs 03/25/2016 Blood Pressure 1: 140/58 Code : 8480-6 BMI: 25.9 Code : 35803-1 Heart Rate 1 : 58 bpm Height: 4'11" SpO2: 95% Weight: 128 lbs 01/26/2016 Blood Pressure 1: 138/68 Code : 8480-6 BMI: 26.3 Code : 19035-5 Heart Rate 1 : 66 bpm Height: 4'11" SpO2: 96% Weight: 130 lbs 10/29/2015 Blood Pressure 1: 180/78 Code : 8480-6 BMI: 25.7 Code : 69116-9 Heart Rate 1 : 74 bpm Height: 4'11" SpO2: 97% Weight: 127 lbs 07/21/2015 Blood Pressure 1: 136/70 Code : 8480-6 BMI: 25.9 Code : 59617-6 Heart Rate 1 : 63 bpm Height: 4'11" SpO2: 95% Weight: 128 lbs 07/08/2015 Blood Pressure 1: 140/70 Code : 8480-6 BMI: 26.5 Code : 68223-4 Heart Rate 1 : 59 bpm Height: 4'11" SpO2: 94% Weight: 131 lbs 5 oz 05/04/2015 Blood Pressure 1: 140/60 Code : 8480-6 BMI: 25.7 Code : 65581-2 Heart Rate 1 : 60 bpm Height: [...] Present Encounters Encounter Performer Location Codes Date 21776 EST. PATIENT, LEVEL IV Diagnosis: Other acute sinusitis[ICD10: J01.80] Diagnosis: Other allergic rhinitis[ICD10: J30.89] Diagnosis: Localized edema[ICD10: R60.0] Diagnosis: Cough[ICD10: R05] Elizabeth Sow MD, [facility] CPT-4: 30684 09/25/2018 [id number] EST. PATIENT, LEVEL IV Diagnosis: Localized edema[ICD10: R60.0] Elizabeth Sow MD, [facility] CPT-4 : 76660 09/14/2018 ([id number]) 35513 EST. PATIENT, LEVEL IV Diagnosis: Essential (primary) hypertension[ICD10: I10] Diagnosis: Localized edema[ICD10: R60.0] Diagnosis: Type 2 diabetes mellitus with hyperglycemia[ICD10: E11.65] Laney Sow MD, [facility] CPT-4: 56881 09/04/2018 [id number] EST. PATIENT, LEVEL III Diagnosis: Essential (primary) hypertension[ICD10: I10] Diagnosis: Type 2 diabetes mellitus without complications[ICD10: E11.9] Diagnosis: Myalgia, other site[ICD10: M79.18] Elizabeth Sow MD, [facility] CPT-4: 97500 08/17/2018 ([id number]) 24068 EST. PATIENT, LEVEL IV Diagnosis: Essential (primary) hypertension[ICD10: I10] Diagnosis: Type 2 diabetes mellitus without complications[ICD10: E11.9] Kate Sow MD, [facility] CPT-4: 04452 08/08/2018 00943 EST. PATIENT, LEVEL III Diagnosis: Type 2 diabetes mellitus with hyperglycemia[ICD10: E11.65] Elizabeth Sow MD, [facility] CPT-4: 87090 07/17/2018 47940 EST. PATIENT, LEVEL III Diagnosis: Type 2 diabetes mellitus with hyperglycemia[ICD10: E11.65] Diagnosis: Weakness[ICD10: R53.1] Diagnosis: Unsteadiness on feet[ICD10: R26.81] Elizabeth Sow MD, [facility] CPT-4: 63711 06/26/2018 ([id number]) 07569 EST. PATIENT, LEVEL IV Diagnosis: Type 2 diabetes mellitus with hyperglycemia[ICD10: E11.65] Diagnosis: Essential (primary) hypertension[ICD10: I10] Diagnosis: Muscle weakness (generalized)[ICD10: M62.81] Diagnosis: Localized edema[ICD10: R60.0] Kate Sow MD, [facility] CPT- 4: 45713 06/21/2018 ([id number]) 94018 EST. 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 PATIENT, LEVEL III Diagnosis: Low back pain[ICD10: M54.5] Elizabeth Sow MD, [facility] CPT-4 : 34771 04/27/2018 ([id number]) 73617 EST. PATIENT, LEVEL IV Diagnosis: Diplopia[ICD10: H53.2] Diagnosis: Rash and other nonspecific skin eruption[ICD10: R21] Diagnosis: Type 2 diabetes mellitus with hyperglycemia[ICD10: E11.65] Laney Sow MD, [facility] CPT-4: 85077 04/20/2018 ([id number]) 29240 EST. PATIENT, LEVEL III Diagnosis: Low back pain[ICD10: M54.5] Elizabeth Sow MD, [facility] CPT-4 : 18784 04/12/2018 ([id number]) 27200 EST. PATIENT, LEVEL III Diagnosis: Essential (primary) hypertension[ICD10: I10] Diagnosis: Type 2 diabetes mellitus with hyperglycemia[ICD10: E11.65] Kate Sow MD , [facility] CPT-4: 47377 04/10/2018 ([id number]) 53652 EST. PATIENT, LEVEL III Diagnosis: Lumbago with sciatica, left side[ICD10: M54.42] Diagnosis: Essential (primary) hypertension[ICD10: I10] Laney Hipolito Sow MD, [facility] CPT-4: 97789 04/03/2018 ([id number]) 95050 EST. PATIENT, LEVEL IV Diagnosis: Type 2 diabetes mellitus with hyperglycemia[ICD10: E11.65] Diagnosis: Essential (primary) hypertension[ICD10: I10] Kate Sow MD, [facility] CPT-4: 54280 03/13/2018 ([id number]) 16352 EST. PATIENT, LEVEL IV Diagnosis: Essential (primary) hypertension[ICD10: I10] Diagnosis: Type 2 diabetes mellitus with hyperglycemia[ICD10: E11.65] Kate Sow MD [facility] CPT-4: 89535 02/01/2018 ([id number]) 02673 EST. PATIENT, LEVEL IV Diagnosis: Type 2 diabetes mellitus with hyperglycemia[ICD10: E11.65] Diagnosis: Essential (primary) hypertension[ICD10: I10] Kate Sow MD, [facility] CPT-4: 96250 01/18/2018 ([id number]) Miscellaneous no charge Diagnosis: Type 2 diabetes mellitus with hyperglycemia[ICD10: E11.65] Elizabeth Sow MD, [facility] CPT-4: 53590 12/22/2017 ([id number]) 49857 EST. PATIENT, LEVEL IV Diagnosis: Type 2 diabetes mellitus with hyperglycemia[ICD10: E11.65] Diagnosis: Essential (primary) hypertension[ICD10: I10] Diagnosis: Muscle weakness (generalized)[ICD10: M62.81] Kate Sow MD, [facility] CPT-4: 75790 12/21/2017 17812 EST. PATIENT, LEVEL IV Diagnosis: Type 2 diabetes mellitus without complications[ICD10: E11.9] Diagnosis: Mixed hyperlipidemia[ICD10: E78.2] Diagnosis: Essential (primary) hypertension[ICD10: I10] Elizabeth Sow MD, [facility] CPT-4: 27083 10/10/2017 72818 EST. PATIENT, LEVEL III Diagnosis: Weakness[ICD10: R53.1] Diagnosis: Essential (primary) hypertension[ICD10: I10] Elizabeth Sow MD, [facility] CPT-4: 20530 09/07/2017 30894 EST. PATIENT, LEVEL III Diagnosis: Encounter for follow-up examination after completed treatment for conditions other than malignant neoplasm[ICD10: Z09] Diagnosis: Weakness[ICD10: R53.1] Diagnosis: Essential (primary) hypertension[ICD10: I10] Diagnosis: Dyspnea, unspecified[ICD10: R06.00] Diagnosis: Unsteadiness on feet[ICD10: R26.81] Elizabeth Sow MD, [facility] CPT-4: 72910 08/30/2017 ([id number]) 88546 EST. PATIENT, LEVEL IV Diagnosis: Type 2 diabetes mellitus without complications[ICD10: E11.9] Diagnosis: Essential (primary) hypertension[ICD10: I10] Kate oSw MD [facility] CPT-4: 64373 08/15/2017 ([id number]) 09712 EST. PATIENT, LEVEL IV Diagnosis: Type 2 diabetes mellitus without complications[ICD10: E11.9] Diagnosis: Essential (primary) hypertension[ICD10: I10] Diagnosis: Unsteadiness on feet[ICD10: R26.81] Kate Sow MD, [facility] CPT-4: 95501 06/15/2017 ([id number]) Miscellaneous no charge Diagnosis: Essential (primary) hypertension[ICD10: I10] Laney Sow MD, [facility] CPT-4: 70815 05/29/2017 ([id number]) 50103 EST. PATIENT, LEVEL IV Diagnosis: Type 2 diabetes mellitus without complications[ICD10: E11.9] Diagnosis: Essential (primary) hypertension[ICD10: I10] Diagnosis: Mixed hyperlipidemia[ICD10: E78.2] Kate Sow MD, [facility] CPT-4: 63020 05/11/2017 ([id number]) 08365 EST. PATIENT, LEVEL IV Diagnosis: Type 2 diabetes mellitus without complications[ICD10: E11.9] Diagnosis: Essential (primary) hypertension[ICD10: I10] Kate Sow MD, [facility] CPT-4: 68761 01/05/2017 ([id number]) 50344 EST. PATIENT, LEVEL III Diagnosis: Essential (primary) hypertension[ICD10: I10] Kate Sow MD, [facility] CPT-4: 66438 09/20/2016 ([id number]) 87349 EST. PATIENT, LEVEL III Diagnosis: Essential (primary) hypertension[ICD10: I10] Laney Sow MD, [facility] CPT-4: 26247 09/01/2016 ([id number]) Miscellaneous no charge Diagnosis: Impacted cerumen, right ear[ICD10: H61.21] Elizabeth Sow MD, [facility] CPT-4: 95469 06/08/2016 ([id number]) 49903 EST. PATIENT, LEVEL IV Diagnosis: Type 2 diabetes mellitus without complications[ICD10: E11.9] Diagnosis: Essential (primary) hypertension[ICD10: I10] Diagnosis: Encounter for immunization[ICD10: Z23] Kate Sow MD, [facility] CPT-4: 33085 06/02/2016 32211 EST. PATIENT, LEVEL III Diagnosis: Essential (primary) hypertension[ICD10: I10] Diagnosis: Other specified cardiac arrhythmias[ICD10: I49.8] Elizabeth Sow MD, [facility] CPT-4: 47684 03/25/2016 ([id number]) 89216 EST. PATIENT, LEVEL IV Diagnosis: Type 2 diabetes mellitus without complications[ICD10: E11.9] Diagnosis: Essential (primary) hypertension[ICD10: I10] Kate Sow MD, [facility] CPT-4: 59781 01/26/2016 ([id number]) [id number] EST. PATIENT, LEVEL IV Diagnosis: Essential (primary) hypertension[ICD10: I10] Diagnosis: Type 2 diabetes mellitus without complications[ICD10: E11.9] Kate Sow MD, [facility] CPT-4: 56090 10/29/2015 ([id number]) [id number] EST. PATIENT, LEVEL IV Diagnosis: Essential (primary) hypertension[ICD10: I10] Diagnosis: Dyspnea, unspecified[ICD10: R06.00] Kate Sow MD, [facility] CPT-4: 63852 07/21/2015 ([id number]) 88419 EST. PATIENT, LEVEL III Diagnosis: Edema, unspecified[ICD10: R60.9] [facility] CPT-4: 08381 07/08/2015 ([id number]) OFFICE VISIT, NEW - LEVEL 4 Diagnosis: ESSENTIAL HYPERTENSION[ICD9: 401.9] Diagnosis: DIABETES TYPE II[ICD9: 250.00] [facility]ow [facility], [facility] CPT- 4: 65089 05/04/2015 Plan of Care Planned Activity Notes [...] further attempt to reduce peripheral edema. 09/25/2018 Patient Education: Patient Medication Summary Completed [...] peripheral edema. 09/14/2018 Appointment: Elizabeth Milner WPtel: [address] [place], [place] [address] (15 min) Moderate 09/14/2018 Patient Education: Patient Medication Summary Completed 09/14/2018 Visit Plan: Hypertension - well controlled at the [facility]- continue with current medications, continue with no [...] this time. 09/04/2018 Appointment: Laney Mcmillan WPtel: [facility]5 [phone] (30 min) Complex 09/04/2018 Patient Education: Patient Medication Summary Completed 09/04/2018 Patient Education: Diabetes Completed 09/04/2018 Appointment: Laney Mcmillan WPtel: [address] [place], [place] [phone] (15 min) Moderate 08/28/2018 Visit Plan: Hypertension [...] or concerns. 08/17/2018 Appointment: Elizabeth Milner WPtel: [facility]5 [facility] (15 min) Moderate 08/17/2018 Patient Education: Patient [...] concerns. 08/08/2018 Appointment: Kate Sow WPtel: [phone] [facility] 30 min appointments only in this slot 08/08/2018 Patient Education: Patient Medication Summary Completed 08/08/2018 Patient Education: Diabetes Completed 08/08/2018 Appointment: Kate Sow WPtel: [phone] [facility] (15 min) Moderate 08/07/2018 Visit Plan: Diabetes [...] glucose control. 07/17/2018 Appointment: Elizabeth Milner WPtel: [phone] [facility] (15 min) Moderate 07/17/2018 Patient Education: Patient [...] instability. 06/26/2018 App[facility]ment: [phone] (15 min) Moderate 06/26/2018 Patient Education: Patient Medication Summary Completed 06/26/2018 Patient Education: Diabetes Completed 06/26/2018 Visit Plan: Diabetes [facility] - discussed with patient and her marisaughte [...] Living. 06/21/2018 App[facility]ment[phone] (15 min) Moderate 06/21/2018 Patient Education: Patient Medication Summary Completed 06/21/2018 Patient Education: Diabetes Completed 06/21/2018 Appointment: [phone] [place] (15 min) [...] sleep better. 05/02/2018 Appointment: Kate Sow WPtel: [facility]2 [facility] [place] (15 min) Moderate 05/02/2018 Patient Education: Patient Medication Summary Completed 05/02/2018 Care Plan: X-RAY EXAM L-S SPINE 10/21 VWS LOINC : 43105-4 Pending 05/02/2018 Visit Plan: Low back pain- the patient was instructed in appropriate posture - The pt is to use prn antiinflammatories to manage acute pain. The patient is to call the office if the pain is worsening or does not improve. 04/27/2018 Appointment: Elizabeth Milner WPtel: [facility]7 [facility] [place] (15 min) Moderate 04/27/2018 Patient Education: Patient Medication Summary Completed 04/27/2018 Visit Plan: Double vision-suspect due to elevated blood sugars -recommend patient bring in log of blood sugars to next appt -notify purchasing agent of elevated readings and watch diet closely -also recommend f/u with eye doctor Rash-suspect shingles-rx for acyclovir provided and instructed on use 04/20/2018 Appointment: Laney Mcmillan WPtel: [phone] [phone] [place] (15 min) Moderate 04/20/2018 Patient [...] worsen. 04/12/2018 Appointment: Elizabeth Milner WPtel: [phone] [facility]66[facility] (15 min) Moderate 04/12/2018 Patient Education: [...] controlled. 04/10/2018 Appointment: Kate Sow WPtel: [phone] [facility] (15 min) Moderate 04/10/2018 Patient Education: Patient [...] concerns. 04/03/2018 Appointment: [facility] Mcmillan [facility]el[phone] (15 min) Moderate 04/03/2018 Patient Education: Patient [...] home. 03/13/2018 Appointment: [facility]el[phone] (15 min) Moderate [...] diet. 02/01/2018 Appointment: [facility]el[phone] [place] (15 min) Moderate 02/01/2018 Patient Education: [...] 100mg daily. 01/18/2018 Appointment: [facility]ow [facility]Ptel[phone] [place] (15 min) Moderate 01/18/2018 Patient Education: Patient Medication Summary Completed 01/18/2018 Appointment: [facility]el[phone] [place] (15 min) Moderate 01/11/2018 Appointment: [facility]ow [facility]Ptel[phone] [place] (15 min) Moderate 12/25/2017 Visit Plan: [...] Generalized weakness - physical [facility] at [facility] 12/21/2017 Appointment: [facility]ow [facility]Ptel[phone] [place] (15 min) Moderate 12/21/2017 Patient Education: Patient Medication Summary Completed 12/21/2017 Appointment: [facility]ow [facility]Ptel[phone] [place] (15 min) Moderate 12/13/2017 Visit Plan: [...] glucose control. 10/10/2017 Appointment: Elizabeth Milner WPtel: [facility]4 [facility] (15 min) Moderate 10/10/2017 Patient Education: [...] at home. 09/07/2017 Appointment: [facility] Mil[facility]Ptel[phone] (30 min) Complex 09/07/2017 Patient Education: Patient Medication Summary Completed 09/07/2017 Appointment: Kate Sow WPtel: [phone] [facility] (15 min) Moderate 09/05/2017 Visit Plan: [...] rehabilitation. 08/30/2017 Appointment: Elizabeth Milner WPtel: [phone] [facility] (30 min) Complex 08/30/2017 Patient Education: Patient Medication Summary Completed 08/30/2017 Appointment: Elizabeth Milner WPtel: [phone] [facility] (15 min) Moderate 08/29/2017 Visit Plan: Diabetes [...] home. 08/15/2017 Appointment: [facility]el[phone] (15 min) Moderate 08/15/2017 Patient Education: Patient Medication Summary Completed 08/15/2017 Care Plan: %Hba1C LOINC : 34613-6 Cancelled 08/15/2017 [phone] Patient's informed. Completed 06/26/2017 Visit Plan: Diabetes [...] at home. 06/15/2017 Appointment: Kate Sow WPtel: [address] [place], [place] [address] (15 min) Moderate 06/15/2017 Patient Education: Patient Medication Summary Completed 06/15/2017 Care Plan: Referral Order SNOMED-CT : [id number] Pending 06/15/2017 Appointment: Nurse Visit 05/29/2017 Patient [...] [facility] to get this set of [...] with Statin 05/11/2017 Appointment: [facility]ow [facility]Ptel[phone] (15 min) Moderate 05/11/2017 Patient Education: Patient [...] daily. 01/05/2017 Appointment: [facility]ow [facility]Ptel[phone] (15 min) Moderate [...] home. 09/20/2016 Appointment: [facility]ow [facility]Ptel[phone] (30 min) [...] acute concerns. 09/01/2016 Appointment: Laney Mcmillan WPtel: [phone] [phone] [place] (30 min) Complex 09/01/2016 Patient Education: Patient Medication Summary Completed 09/01/2016 Appointment: Kate Sow WPtel: [phone] [facility] [place] (15 min) Moderate 08/31/2016 Appointment: Nurse [...] less controlled. 06/02/2016 Appointment: [facility]ow [facility]Ptel[phone] [place] (15 min) Moderate 06/02/2016 Patient Education: Patient Medication Summary Completed 06/02/2016 Patient Education: Hypertension Completed 06/02/2016 Visit Plan: Bradycardia - reports pt has brought in indicates that the pt has been having a pulse in the 40s-50s. Will adjust medications, pt is to notify clinic if her symptoms do not improve, or with any concerns. 03/25/2016 Appointment: Laney Mcmillan WPtel: [phone] [phone] (10 min) Simple 03/25/2016 Patient Education: [...] DM - managed by Dr. Johnson from [place] 01/26/2016 Patient Education: Patient Medication Summary Completed 01/26/2016 Patient Education: Hypertension Completed 01/26/2016 Appointment: Laney Mcmillan WPtel: [phone] [phone] (30 min) Complex 12/31/2015 Visit Plan: [...] less controlled. 10/29/2015 Appointment: [facility]ow [facility]Ptel[phone] (15 min) Moderate 10/29/2015 Patient Education: Patient Medication Summary Completed 10/29/2015 Patient Education: Hypertension Completed 10/29/2015 Appointment: Kate Sow WPtel: [phone] [facility] (15 min) Moderate 09/14/2015 Visit Plan: [...] today, as soon as you get to [place], monday morning, then start taking the lasix [...] handout Begin using muscle rub on back ([place] balm) 05/04/2015 Appointment: Kate [facility]ow [facility]Ptel[phone] [place] (S) New Patient 05/04/2015 Patient Education: Patient Medication Summary Completed 05/04/2015 Patient Education: Hypertension Completed 05/04/2015 Referral: [phone] [place] Referral Appointment Requested Instructions Comment see if Dr. 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 if the [...] Generalized weakness - physical therapy at [facility] Increase amlodipine to 5mg (take 2 pills [...] DM - managed by Dr. Johnson from [place] . Diabetes Mellitus - Uncontrolled - per [...] . Hypertension - well controlled at the [facility]- continue with current medications, continue with no [...] pt to shelter facility for ongoing rehabilitation. Stop the Atorvastatin [...] . Diabetes improved control [facility] at the [facility] - discussed with patient and her hirale [...] handout Begin using muscle rub on back ([place] balm) Begin taking Lasix again No blood [...] handout Begin using muscle rub on back ([place] balm) . Edema - pt has been [...] pt is to call for acute concerns. Appt with Dr Richmond for eye exam start acyclovir four times daily mupirocin ointment to rash on face -don't use on eye/eyelids -continue the eye drops you already have . Double vision-suspect due to elevated blood sugars -recommend patient bring in log of blood sugars to next appt -notify purchasing agent of elevated readings and watch diet closely -also recommend f/u with eye doctor Rash-suspect shingles-rx for acyclovir provided and instructed on use
--- OUTSIDE RECORDS SUMMARY | 2018-12-26 07:26 | XMS REPORT | CCD ---
Author Author [facility] Organization [facility] Address [address] [place] [address] Phone Care Team Providers Care [employer] Agent Name Role Phone PP Unavailable CCM Unavailable Summary Purpose Interface Exchange Insurance Providers Payer name Policy type / Coverage type Covered libertarian ID Effective Begin Date Effective End Date WPS Medicare Part B Medicare Part B [id number] Unknown Unknown [employer] Medicare Part B [id number] Unknown Unknown Family history Mother Diagnosis Age [...] Unknown 2 05/04/[address]: 679455493 Never smoker 05/04/2015 Alcohol history Unknown occasionally [...] Kenalog 40 mg/mL suspension for injection RxNorm: 7853116 1 Milliliter(s) Inj 09/25/2018 09/25/2018 Inactive Augmentin 500 mg-125 mg tablet RxNorm: 700625 1 Tablet(s) PO TID 09/25/2018 10/04/2018 Active Estevan SolJerilynar U-300 Insulin 300 unit/mL (1.5 mL) subcutaneous pen RxNorm: 9526233 20 Unit(s) SQ QHS MANAGED BY DR. JOHNSON 2017 No Stop Date Active Voltaren 1 % topical gel RxNorm: 596983 APPLY THIN LAYER TOPICALLY TO AFFECTED AREA 4 TIMES DAILY 08/24/2018 No Stop Date Active Levaquin 250 mg tablet RxNorm: 996568 2 tabs on 1st day then 1 tab day 2-7 Tablet( s) PO daily 08/20/2018 09/03/2018 Inactive dc keflex Levaquin 250 mg tablet RxNorm: 764355 2 tabs on 1st day then 1 tab day 2-7 Tablet( s) PO daily 08/20/2018 08/19/2018 Inactive dc keflex Keflex 500 mg capsule RxNorm: 272842 1 Capsule(s) PO TID 201708/19/2018 Inactive Magnokadevipul MarreroJerilyndavid U-300 Insulin 300 unit/mL (1.5 mL) subcutaneous pen RxNorm: 5219345 25 Unit(s) SQ QHS MANAGED BY DR. JOHNSON 201709/03/2018 Inactive Norvasc 10 mg tablet RxNorm: 133054 1 Tablet(s) PO daily 201701/25/2019 Active update RX Eliquis 2.5 mg tablet RxNorm: 9827622 Tablet(s) PO TAKE ONE TABLET BY MOUTH TWICE DAILY 06/21/2018 06/15/2019 Active cyclobenzaprine 5 mg tablet RxNorm: 071675 1/2 Tablet(s) PO BID as needed muscle spasms/back pain 05/02/2018 05/31/2018 Inactive tramadol 50 mg tablet RxNorm: 916451 1 Tablet(s) PO TID as needed for pain 04/27/2018 05/01/2018 Inactive Voltaren 1 % topical gel RxNorm: 952116 1 Application TOP QID 04/27/2018 08/23/2018 Inactive acyclovir 400 mg tablet RxNorm: 198875 2 Tablet(s) PO QID 04/2006/20/2018 Inactive mupirocin 2 % topical ointment RxNorm: 587423 1 Application TOP BID 04/20/2018 04/29/2018 Inactive right cheek/nose gentamicin 0.3 % eye drops RxNorm: 965470 2 Drop(s) ophthalmic (eye) left eye Q8 04/16/2018 09/03/2018 Inactive prednisone 20 mg tablet RxNorm: 915287 2 Tablet(s) PO daily 04/12/2018 Inactive prednisone 20 mg tablet RxNorm: 211620 2 Tablet(s) PO daily 04/17/2018 Inactive Kenalog 40 mg/mL suspension for injection RxNorm: 7747752 1 Milliliter(s) Inj 04/12/2018 04/12/2018 Inactive losartan 100 mg tablet RxNorm: 425210 1 Tablet(s) PO QAM 201712/28/2018 Active update RX -dose should be 100mg Norvasc 5 mg tablet RxNorm: 879728 1 Tablet(s) PO daily 201707/29/2018 Inactive update RX losartan 50 mg tablet RxNorm: 494460 TAKE ONE TABLET BY MOUTH ONCE DAILY IN THE MORNING 03/26/2018 04/02/2018 Inactive Humalog U-100 Insulin 100 unit/mL subcutaneous solution RxNorm: 344735 15 Unit(s) SQ AC MANAGED BY DR. JOHNSON 03/13/2018 No Stop Date Active 201- 200 17 units, greater than 300 21 units Toujeo SoloStar U-300 Insulin 300 unit/mL (1.5 mL) subcutaneous pen RxNorm: 1660677 20 Unit(s) SQ QHS MANAGED BY DR. JOHNSON 201707/10/2018 Inactive losartan 100 mg tablet RxNorm: 703899 1 Tablet(s) PO QAM 201704/02/2018 Inactive pantoprazole 40 mg tablet,delayed release RxNorm: 824475 1 Tablet(s) PO daily 01/11/2018 07/19/2018 Inactive carvedilol 12.5 mg tablet RxNorm: 075366 1 Tablet(s) PO BID 07/19/2018 Inactive Toujeo SoloStar U-300 Insulin 300 unit/mL (1.5 mL) subcutaneous pen RxNorm: 3217167 15 Unit(s) SQ QHS MANAGED BY DR. JOHNSON 201703/12/2018 Inactive Multaq 400 mg tablet RxNorm: 787170 1 Tablet(s) PO BID 201712/14/2018 Active potassium chloride ER 10 mEq tablet,extended release RxNorm: 324958 1 Tablet(s) PO daily while on the Lasix 10/18/201701/2018 Inactive losartan 50 mg tablet RxNorm: 165866 1 Tablet(s) PO QAM 201601/17/2018 Inactive Lasix 20 mg tablet RxNorm: 608768 1 Tablet(s) PO daily 201610/03/2017 Inactive potassium chloride ER 10 mEq tablet,extended release RxNorm: 234816 1 Tablet(s) PO daily while on the Lasix 08/30/2017 Inactive Toujeo SoloStar 300 unit/mL (1.5 mL) subcutaneous insulin pen RxNorm: 5928790 35 Unit(s) SQ QHS MANAGED BY DR. JOHNSON 06/15/2017 10/12/2017 Inactive Eliquis 5 mg tablet RxNorm: 4668306 TAKE ONE TABLET BY MOUTH TWICE DAILY 03/01/2017 02/23/2018 Inactive Januvia 100 mg tablet RxNorm: 654676 1/2 Tablet(s) PO daily 07/19/2018 Inactive losartan 50 mg tablet RxNorm: 756860 1 Tablet(s) PO BID 201509/13/2017 Inactive amlodipine 10 mg tablet RxNorm: 475717 1 Tablet(s) PO daily 06/14/2017 Inactive generic for NORVASC losartan 50 mg tablet RxNorm: 153463 1 Tablet(s) PO daily 201508/31/2016 Inactive Toujeo SoloStar 300 unit/mL (1.5 mL) subcutaneous insulin pen RxNorm: 2214066 40 Unit(s) SQ QHS MANAGED BY DR. JOHNSON 07/01/2016 06/14/2017 Inactive Toujeo SoloStar 300 unit/mL (1.5 mL) subcutaneous insulin pen RxNorm: 4465176 35 Unit(s) SQ QHS MANAGED BY DR. JOHNSON 06/02/2016 06/30/2016 Inactive Humalog 100 unit/mL subcutaneous solution RxNorm: 084867 15 Unit(s) SQ AC MANAGED BY DR. JOHNSON 06/02/2016 03/12/2018 Inactive carvedilol 3.125 mg tablet RxNorm: 991257 1 Tablet(s) PO BID 04/23/2016 Inactive simvastatin 40 mg tablet RxNorm: 129229 1 Tablet(s) PO QHS 07/19/2018 Inactive Humalog 100 unit/mL subcutaneous solution RxNorm: 320339 13 Unit(s) SQ AC MANAGED BY DR. JOHNSON 01/26/2016 06/01/2016 Inactive Eliquis 5 mg tablet RxNorm: 2509666 1 Tablet(s) PO BID 201501/13/2017 Inactive carvedilol 6.25 mg tablet RxNorm: 658245 1 Tablet(s) PO BID 2016 Inactive Humalog 100 unit/mL subcutaneous solution RxNorm: 075837 Unit(s) SQ UD as directed by office 08/07/2015 01/25/2016 Inactive Klor-Con 10 mEq tablet,extended release RxNorm: 421097 1 Tablet(s) PO daily as needed 06/26/2015 10/23/2015 Inactive Lasix 20 mg tablet RxNorm: 1 Tablet(s) PO daily as needed 06/26/2015 10/23/2015 Inactive metoprolol succinate ER 50 mg tablet,extended release 24 hr RxNorm: 842643 1 Tablet(s) PO daily No Start Date Active aspirin 81 mg capsule,delayed release RxNorm: 286097 1 Capsule(s) PO daily No Start Date Active Novolog U-100 Insulin aspart 100 unit/mL subcutaneous solution RxNorm: 022904 SSI 80-150 10u 151-200 15u 201-300 17u over 300 21u Unit(s) SQ AC & HS as needed No Start Date Active Co Q-10 50 mg capsule RxNorm: 926955 1 Capsule(s) PO daily No Start Date Active Lasix 20 mg tablet RxNorm: 1 Tablet(s) PO daily as needed edema No Start Date Active Culturelle Probiotics 10 billion cell-200 mg capsule RxNorm: 1 Capsule(s) PO TID No Start Date Active losartan 25 mg tablet RxNorm: 165763 1 Tablet(s) PO daily No Start Date 08/31/2016 Inactive losartan 100 mg tablet RxNorm: 013531 1 Tablet(s) PO daily No Start Date 06/30/2016 Inactive gentamicin 0.3 % eye drops RxNorm: 333559 2 Drop(s) ophthalmic (eye) left eye Q8 No Start Date 04/15/2018 Inactive fluticasone 50 mcg/actuation nasal spray,suspension RxNorm: 157059 2 [place] NASAL daily No Start Date 09/03/2018 Inactive Multaq 400 mg tablet RxNorm: 197956 1 Tablet(s) PO BID No Start Date 12/19/2017 Inactive Klor-Con 10 mEq tablet,extended release RxNorm: 511988 1 Tablet(s) PO daily as needed No Start Date 06/25/2015 Inactive simvastatin 40 mg tablet RxNorm: 287079 1 Tablet(s) PO daily No Start Date 02/04/2016 Inactive carvedilol 6.25 mg tablet RxNorm: 061231 1 Tablet(s) PO BID No Start Date 11/30/2015 Inactive cetirizine 10 mg tablet RxNorm: 5464605 1 Tablet(s) PO daily No Start Date 09/03/2018 Inactive Eliquis 5 mg tablet RxNorm: 5897362 1 Tablet(s) PO BID No Start Date 01/19/2016 Inactive Toujeo SoloStar 300 unit/mL (1.5 mL) subcutaneous insulin pen RxNorm: 3322697 33 Unit(s) SQ QHS MANAGED BY DR. JOHNSON No Start Date 06/01/2016 Inactive Lasix 20 mg tablet RxNorm: 520528 1 Tablet(s) PO daily as needed No Start Date 06/25/2015 Inactive atorvastatin 40 mg tablet RxNorm: 367499 1 Tablet(s) PO daily No Start Date 09/03/2018 Inactive Humalog 100 unit/mL subcutaneous solution RxNorm: 067406 10 Unit(s) SQ TID No Start Date 08/06/2015 Inactive amlodipine 5 mg tablet RxNorm: 756499 1 Tablet(s) PO daily No Start Date 08/31/2016 Inactive Norvasc 2.5 mg tablet RxNorm: 452502 1 Tablet(s) PO daily No Start Date 04/02/2018 Inactive Medication Administered Medication Codes Instructions Start Date Status Kenalog 40 mg/mL suspension for injection RxNorm: 3644831 1Milliliter 09/25/2018 Active Kenalog 40 mg/mL suspension for injection RxNorm: 1744168 1Milliliter 04/12/2018 No longer Active Immunizations Vaccine [...] 31.2 pg 05/25/2017 Cbc With Differential Ord2 [place]% 8.9 % 05/25/2017 Cbc With Differential Ord2 [...] 3.78 K/ul 05/25/2017 Cbc With Differential Ord2 [place] ABS# 0.7 K/ul 05/25/2017 Cbc With Differential Ord2 Eos ABS# 0.8 K/ul 05/25/2017 Cbc With Differential Ord2 Baso ABS# 0.3 K/ul 05/25/2017 Manual Differential Ord52 D-Neutr 50 % 05/25/2017 Manual Differential Ord52 D-Lymph 38 % 05/25/2017 Manual Differential Ord52 D-Eos 10 % 05/25/2017 Manual Differential Ord52 D-1 2 NRBC 05/25/2017 Comp Metabolic Fef640 NA 140 mEq/L 05/25/2017 Comp Metabolic Jpa005 K 4.0 mEq/L 05/25/2017 Comp Metabolic Cfe242 CL 107 mEq/L 05/25/2017 Comp Metabolic Niz068 CO2 22.0 mEq/L 05/25/2017 Comp Metabolic Wyi263 ANION GAP 15 05/25/2017 Comp Metabolic Sfx881 GLUCOSE 97 mg/dL 05/25/2017 Comp Metabolic Riu189 Creat 0.9 mg/dL 05/25/2017 Comp Metabolic Jja372 eGFR 61 ml/min/1.73m2 05/25/2017 Comp Metabolic Hwv683 BUN 16 mg/dL 05/25/2017 Comp Metabolic Gwl548 B/C Ratio 17.4 Ratio 05/25/2017 Comp Metabolic Mlj699 CALCIUM 9.1 mg/dL 05/25/2017 Comp Metabolic Wzh744 ALK PHOS 109 U/L 05/25/2017 Comp Metabolic Fnt328 AST(SGOT) 19 U/L 05/25/2017 Comp Metabolic Ryc726 ALT(SGPT) 17 U/L 05/25/2017 Comp Metabolic Ajw377 BILI T 0.4 mg/dL 05/25/2017 Comp Metabolic Aaj083 ALBUMIN 3.3 g/dL 05/25/2017 Comp Metabolic Qrm642 TPRO 6.0 g/dL 05/25/2017 Comp Metabolic Kgl594 GLOB 2.7 g/dL 05/25/2017 Comp Metabolic Dui685 A/G Ratio 1.2 Ratio 05/25/2017 Comp Metabolic Una345 Osmo 281 mOsmo 05/25/2017 Lipid Ord30 CHOL 204 mg/dL 05/25/2017 Lipid Ord30 HDL 49.0 mg/dl 05/25/2017 Lipid Ord30 TRIG 117 mg/dL 05/25/2017 Lipid Ord30 LDL 132 mg/dL 05/25/2017 Lipid Ord30 C/HDL 4.2 Ratio 05/25/2017 %Hba1C Vmc860 % HbA1c 32504-4 10.5 % 05/25/2017 %Hba1C Oqs711 Gluc Ave 255 mg/dL 05/25/2017 Microalbumin Tmy961 MicroAlb 95.0 mg/dL 05/25/2017 Review of Systems [...] CPT-4: J3301 09/25/2018 THER/PROPH/DIAG INJ SC/IM CPT-4: 26787 09/25/2018 DRAIN/INJECT JOINT/BURSA CPT-4: 05646 04/12/2018 TRIAMCINOLONE ACET INJ NOS CPT-4: J3301 04/12/2018 PPPS, SUBSEQ VISIT CPT -4: G0439 02/22/2018 ADMIN INFLUENZA VIRUS VAC CPT-4: G0008 06/02/2016 FLU VACC PRSV FREE INC ANTIG CPT-4: 56533 06/02/2016 Vital Signs Date Vital 09/25/2018 Blood Pressure 1: 140/62 Code : 8480-6 BMI: 27.4 Code : 78443-2 Heart Rate 1 : 89 bpm Height: 4'8" SpO2: 97% Temperature: 37.6 (C) / 99.6 (F) Weight: 122 lbs 09/14/2018 Blood Pressure 1: 148/72 Code : 8480-6 BMI: 27.4 Code : 80856-6 Heart Rate 1 : 68 bpm Height: 4'8" SpO2: 98% Weight: 122 lbs 09/04/2018 Blood Pressure 1: 152/60 Code : 8480-6 BMI: 27.1 Code : 93646-8 Heart Rate 1 : 56 bpm Height: 4'8" SpO2: 96% Weight: 121 lbs 08/17/2018 Blood Pressure 1: 140/66 Code : 8480-6 BMI: 25.3 Code : 12789-2 Heart Rate 1 : 66 bpm Height: 4'8" SpO2: 97% Weight: 113 lbs 08/08/2018 Blood Pressure 1: 174/70 Code : 8480-6 BMI: 25.3 Code : 97888-5 Heart Rate 1 : 60 bpm Height: 4'8" SpO2: 97% Weight: 113 lbs 07/17/2018 Blood Pressure 1: 148/62 Code : 8480-6 BMI: 24.9 Code : 93668-8 Heart Rate 1 : 65 bpm Height: 4'8" SpO2: 97% Weight: 111 lbs 06/26/2018 Blood Pressure 1: 118/72 Code : 8480-6 BMI: 25.1 Code : 36757-4 Heart Rate 1 : 58 bpm Height: 4'8" SpO2: 97% Weight: 112 lbs 06/21/2018 Blood Pressure 1: 120/72 Code : 8480-6 BMI: 25.1 Code : 69027-5 Heart Rate 1 : 56 bpm Height: 4'8" SpO2: 96% Weight: 112 lbs 05/02/2018 Blood Pressure 1: 178/76 Code : 8480-6 BMI: 24.7 Code : 59705-8 Heart Rate 1 : 72 bpm Height: 4'8" SpO2: 98% Weight: 110 lbs 04/27/2018 Blood Pressure 1: 164/78 Code : 8480-6 BMI: 24.7 Code : 44863-7 Heart Rate 1 : 69 bpm Height: 4'8" SpO2: 97% Weight: 110 lbs 04/20/2018 Blood Pressure 1: 140/80 Code : 8480-6 BMI: 24.7 Code : 12918-8 Heart Rate 1 : 83 bpm Height: 4'8" SpO2: 97% Weight: 110 lbs 04/12/2018 Blood Pressure 1: 146/78 Code : 8480-6 Heart Rate 1: 68 bpm Height: SpO2: 98% Weight: 04/10/2018 Blood Pressure 1: 146/60 Code : 8480-6 BMI: 24.7 Code : 65038-6 Heart Rate 1 : 60 bpm Height: 4'8" SpO2: 95% Weight: 110 lbs 04/03/2018 Blood Pressure 1: 204/80 Code : 8480-6 BMI: 24.9 Code : 80721-1 Heart Rate 1 : 62 bpm Height: 4'8" SpO2: 98% Weight: 111 lbs 03/13/2018 Blood Pressure 1: 140/68 Code : 8480-6 BMI: 25.6 Code : 64125-6 Heart Rate 1 : 68 bpm Height: 4'8" SpO2: 95% Weight: 114 lbs 02/22/2018 Blood Pressure 1: 166/88 Code : 8480-6 BMI: 24.7 Code : 40217-7 Heart Rate 1 : 72 bpm Height: 4'8" SpO2: 95% Weight: 110 lbs 02/01/2018 Blood Pressure 1: 162/70 Code : 8480-6 BMI: 23.2 Code : 31691-6 Heart Rate 1 : 64 bpm Height: 4'11" SpO2: 95% Weight: 115 lbs 01/18/2018 Blood Pressure 1: 192/86 Code : 8480-6 BMI: 22.6 Code : 99230-3 Heart Rate 1 : 68 bpm Height: 4'11" SpO2: 94% Weight: 112 lbs 12/21/2017 Blood Pressure 1: 110/52 Code : 8480-6 BMI: 23.0 Code : 97884-3 Heart Rate 1 : 58 bpm Height: 4'11" SpO2: 94% Weight: 114 lbs 10/10/2017 Blood Pressure 1: 168/78 Code : 8480-6 BMI: 23.0 Code : 69311-7 Heart Rate 1 : 54 bpm Height: 4'11" SpO2: 98% Weight: 114 lbs 09/07/2017 Blood Pressure 1: 142/72 Code : 8480-6 Heart Rate 1: 84 bpm Height: 4'11" SpO2: 97% Weight: 08/30/2017 Blood Pressure 1: 188/82 Code : 8480-6 BMI: 24.4 Code : 60445-1 Heart Rate 1 : 79 bpm Height: 4'11" SpO2: 88% Temperature: 38.5 (C) / 101.3 (F) Weight: 121 lbs 08/15/2017 Blood Pressure 1: 166/78 Code : 8480-6 BMI: 22.8 Code : 55685-5 Heart Rate 1 : 71 bpm Height: 4'11" SpO2: 96% Weight: 113 lbs 06/15/2017 Blood Pressure 1: 138/68 Code : 8480-6 BMI: 22.8 Code : 51027-9 Heart Rate 1 : 54 bpm Height: 4'11" SpO2: 98% Weight: 113 lbs 05/29/2017 Blood Pressure 1: 96/46 Code : 8480-6 Blood Pressure 2: 116/57 Code: 8480-6 Heart Rate 1: 54 bpm 05/11/2017 Blood Pressure 1: 144/60 Code : 8480-6 BMI: 23.8 Code : 91465-6 Heart Rate 1 : 68 bpm Height: 4'11" SpO2: 97% Weight: 118 lbs 01/05/2017 Blood Pressure 1: 134/72 Code : 8480-6 BMI: 24.8 Code : 09475-2 Heart Rate 1 : 64 bpm Height: 4'11" SpO2: 94% Weight: 123 lbs 09/20/2016 Blood Pressure 1: 148/66 Code : 8480-6 BMI: 25.4 Code : 68634-2 Heart Rate 1 : 68 bpm Height: 4'11" SpO2: 97% Weight: 126 lbs 09/01/2016 Blood Pressure 1: 162/80 Code : 8480-6 BMI: 26.1 Code : 18380-2 Heart Rate 1 : 75 bpm Height: 4'11" SpO2: 95% Weight: 129 lbs 06/02/2016 Blood Pressure 1: 144/82 Code : 8480-6 BMI: 25.4 Code : 67565-5 Heart Rate 1 : 68 bpm Height: 4'11" SpO2: 98% Weight: 126 lbs 03/25/2016 Blood Pressure 1: 140/58 Code : 8480-6 BMI: 25.9 Code : 36136-5 Heart Rate 1 : 58 bpm Height: 4'11" SpO2: 95% Weight: 128 lbs 01/26/2016 Blood Pressure 1: 138/68 Code : 8480-6 BMI: 26.3 Code : 52150-1 Heart Rate 1 : 66 bpm Height: 4'11" SpO2: 96% Weight: 130 lbs 10/29/2015 Blood Pressure 1: 180/78 Code : 8480-6 BMI: 25.7 Code : 82286-7 Heart Rate 1 : 74 bpm Height: 4'11" SpO2: 97% Weight: 127 lbs 07/21/2015 Blood Pressure 1: 136/70 Code : 8480-6 BMI: 25.9 Code : 21261-3 Heart Rate 1 : 63 bpm Height: 4'11" SpO2: 95% Weight: 128 lbs 07/08/2015 Blood Pressure 1: 140/70 Code : 8480-6 BMI: 26.5 Code : 28847-3 Heart Rate 1 : 59 bpm Height: 4'11" SpO2: 94% Weight: 131 lbs 5 oz 05/04/2015 Blood Pressure 1: 140/60 Code : 8480-6 BMI: 25.7 Code : 98733-7 Heart Rate 1 : 60 bpm Height: [...] Present Encounters Encounter Performer Location Codes Date 76353 EST. PATIENT, LEVEL IV Diagnosis: Other acute sinusitis[ICD10: J01.80] Diagnosis: Other allergic rhinitis[ICD10: J30.89] Diagnosis: Localized edema[ICD10: R60.0] Diagnosis: Cough[ICD10: R05] Elizabeth Sow MD, [facility] CPT-4: 41606 09/25/2018 15111 EST. PATIENT, LEVEL IV Diagnosis: Localized edema[ICD10: R60.0] Elizabeth Sow MD, [facility] CPT-4 : 99831 09/14/2018 ([id number]) 70630 EST. PATIENT, LEVEL IV Diagnosis: Essential (primary) hypertension[ICD10: I10] Diagnosis: Localized edema[ICD10: R60.0] Diagnosis: Type 2 diabetes mellitus with hyperglycemia[ICD10: E11.65] Laney Sow MD, [facility] CPT-4: 41653 09/04/2018 71311 EST. PATIENT, LEVEL III Diagnosis: Essential (primary) hypertension[ICD10: I10] Diagnosis: Type 2 diabetes mellitus without complications[ICD10: E11.9] Diagnosis: Myalgia, other site[ICD10: M79.18] Elizabeth Sow MD, [facility] CPT-4: 99682 08/17/2018 ([id number]) 87545 EST. PATIENT, LEVEL IV Diagnosis: Essential (primary) hypertension[ICD10: I10] Diagnosis: Type 2 diabetes mellitus without complications[ICD10: E11.9] Kate Sow MD, [facility] CPT-4: 05750 08/08/2018 43013 EST. PATIENT, LEVEL III Diagnosis: Type 2 diabetes mellitus with hyperglycemia[ICD10: E11.65] Elizabeth Sow MD, [facility] CPT-4: 40505 07/17/2018 53821 EST. PATIENT, LEVEL III Diagnosis: Type 2 diabetes mellitus with hyperglycemia[ICD10: E11.65] Diagnosis: Weakness[ICD10: R53.1] Diagnosis: Unsteadiness on feet[ICD10: R26.81] Elizabeth Sow MD, [facility] CPT-4: 89979 06/26/2018 ([id number]) 16009 EST. PATIENT, LEVEL IV Diagnosis: Type 2 diabetes mellitus with hyperglycemia[ICD10: E11.65] Diagnosis: Essential (primary) hypertension[ICD10: I10] Diagnosis: Muscle weakness (generalized)[ICD10: M62.81] Diagnosis: Localized edema[ICD10: R60.0] Kate Sow MD, [facility] CPT- 4: 41400 06/21/2018 ([id number]) 38092 EST. 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 PATIENT, LEVEL III Diagnosis: Low back pain[ICD10: M54.5] Elizabeth Sow MD, [facility] CPT-4 : 99327 04/27/2018 ([id number]) 07199 EST. PATIENT, LEVEL IV Diagnosis: Diplopia[ICD10: H53.2] Diagnosis: Rash and other nonspecific skin eruption[ICD10: R21] Diagnosis: Type 2 diabetes mellitus with hyperglycemia[ICD10: E11.65] Laney Sow MD, [facility] CPT-4: 92068 04/20/2018 ([id number]) 38919 EST. PATIENT, LEVEL III Diagnosis: Low back pain[ICD10: M54.5] Elizabeth Sow MD, [facility] CPT-4 : 46382 04/12/2018 ([id number]) 80744 EST. PATIENT, LEVEL III Diagnosis: Essential (primary) hypertension[ICD10: I10] Diagnosis: Type 2 diabetes mellitus with hyperglycemia[ICD10: E11.65] Kate Sow MD , [facility] CPT-4: 79180 04/10/2018 ([id number]) 09443 EST. PATIENT, LEVEL III Diagnosis: Lumbago with sciatica, left side[ICD10: M54.42] Diagnosis: Essential (primary) hypertension[ICD10: I10] Laney Hipolito Sow MD, [facility] CPT-4: 22502 04/03/2018 ([id number]) 36772 EST. PATIENT, LEVEL IV Diagnosis: Type 2 diabetes mellitus with hyperglycemia[ICD10: E11.65] Diagnosis: Essential (primary) hypertension[ICD10: I10] Kate Sow MD, [facility] CPT-4: 58133 03/13/2018 ([id number]) 36094 EST. PATIENT, LEVEL IV Diagnosis: Essential (primary) hypertension[ICD10: I10] Diagnosis: Type 2 diabetes mellitus with hyperglycemia[ICD10: E11.65] Kate Sow MD [facility] CPT-4: 80534 02/01/2018 ([id number]) 95715 EST. PATIENT, LEVEL IV Diagnosis: Type 2 diabetes mellitus with hyperglycemia[ICD10: E11.65] Diagnosis: Essential (primary) hypertension[ICD10: I10] Kate Sow MD, [facility] CPT-4: 34270 01/18/2018 ([id number]) Miscellaneous no charge Diagnosis: Type 2 diabetes mellitus with hyperglycemia[ICD10: E11.65] Elizabeth Sow MD, [facility] CPT-4: 92405 12/22/2017 ([id number]) 04123 EST. PATIENT, LEVEL IV Diagnosis: Type 2 diabetes mellitus with hyperglycemia[ICD10: E11.65] Diagnosis: Essential (primary) hypertension[ICD10: I10] Diagnosis: Muscle weakness (generalized)[ICD10: M62.81] Kate Sow MD, [facility] CPT-4: 33240 12/21/2017 91069 EST. PATIENT, LEVEL IV Diagnosis: Type 2 diabetes mellitus without complications[ICD10: E11.9] Diagnosis: Mixed hyperlipidemia[ICD10: E78.2] Diagnosis: Essential (primary) hypertension[ICD10: I10] Elizabeth Sow MD, [facility] CPT-4: 21201 10/10/2017 55916 EST. PATIENT, LEVEL III Diagnosis: Weakness[ICD10: R53.1] Diagnosis: Essential (primary) hypertension[ICD10: I10] Elizabeth Sow MD, [facility] CPT-4: 53120 09/07/2017 60407 EST. PATIENT, LEVEL III Diagnosis: Encounter for follow-up examination after completed treatment for conditions other than malignant neoplasm[ICD10: Z09] Diagnosis: Weakness[ICD10: R53.1] Diagnosis: Essential (primary) hypertension[ICD10: I10] Diagnosis: Dyspnea, unspecified[ICD10: R06.00] Diagnosis: Unsteadiness on feet[ICD10: R26.81] Elizabeth Sow MD, [facility] CPT-4: 37140 08/30/2017 ([id number]) 15585 EST. PATIENT, LEVEL IV Diagnosis: Type 2 diabetes mellitus without complications[ICD10: E11.9] Diagnosis: Essential (primary) hypertension[ICD10: I10] Kate Sow MD [facility] CPT-4: 50628 08/15/2017 ([id number]) 04485 EST. PATIENT, LEVEL IV Diagnosis: Type 2 diabetes mellitus without complications[ICD10: E11.9] Diagnosis: Essential (primary) hypertension[ICD10: I10] Diagnosis: Unsteadiness on feet[ICD10: R26.81] Kate Sow MD, [facility] CPT-4: 14232 06/15/2017 ([id number]) Miscellaneous no charge Diagnosis: Essential (primary) hypertension[ICD10: I10] Laney Sow MD, [facility] CPT-4: 41712 05/29/2017 ([id number]) 17712 EST. PATIENT, LEVEL IV Diagnosis: Type 2 diabetes mellitus without complications[ICD10: E11.9] Diagnosis: Essential (primary) hypertension[ICD10: I10] Diagnosis: Mixed hyperlipidemia[ICD10: E78.2] Kate Sow MD, [facility] CPT-4: 16477 05/11/2017 ([id number]) 84744 EST. PATIENT, LEVEL IV Diagnosis: Type 2 diabetes mellitus without complications[ICD10: E11.9] Diagnosis: Essential (primary) hypertension[ICD10: I10] Kate Sow MD, [facility] CPT-4: 93470 01/05/2017 ([id number]) 70240 EST. PATIENT, LEVEL III Diagnosis: Essential (primary) hypertension[ICD10: I10] Kate Sow MD, [facility] CPT-4: 27344 09/20/2016 ([id number]) 02468 EST. PATIENT, LEVEL III Diagnosis: Essential (primary) hypertension[ICD10: I10] Laney Sow MD, [facility] CPT-4: 68182 09/01/2016 ([id number]) Miscellaneous no charge Diagnosis: Impacted cerumen, right ear[ICD10: H61.21] Elizabeth Sow MD, [facility] CPT-4: 05566 06/08/2016 ([id number]) 78151 EST. PATIENT, LEVEL IV Diagnosis: Type 2 diabetes mellitus without complications[ICD10: E11.9] Diagnosis: Essential (primary) hypertension[ICD10: I10] Diagnosis: Encounter for immunization[ICD10: Z23] Kate Sow MD, [facility] CPT-4: 82603 06/02/2016 84964 EST. PATIENT, LEVEL III Diagnosis: Essential (primary) hypertension[ICD10: I10] Diagnosis: Other specified cardiac arrhythmias[ICD10: I49.8] Elizabeth Sow MD, [facility] CPT-4: 53143 03/25/2016 ([id number]) 70836 EST. PATIENT, LEVEL IV Diagnosis: Type 2 diabetes mellitus without complications[ICD10: E11.9] Diagnosis: Essential (primary) hypertension[ICD10: I10] Kate Sow MD, [facility] CPT-4: 30580 01/26/2016 ([id number]) 27766 EST. PATIENT, LEVEL IV Diagnosis: Essential (primary) hypertension[ICD10: I10] Diagnosis: Type 2 diabetes mellitus without complications[ICD10: E11.9] Kate Sow MD, [facility] CPT-4: 65711 10/29/2015 ([id number]) 24731 EST. PATIENT, LEVEL IV Diagnosis: Essential (primary) hypertension[ICD10: I10] Diagnosis: Dyspnea, unspecified[ICD10: R06.00] Kate Sow MD, [facility] CPT-4: 05767 07/21/2015 ([id number]) [id number] EST. PATIENT, LEVEL III Diagnosis: Edema, unspecified[ICD10: R60.9] [facility] CPT-4: 64936 07/08/2015 ([id number]) OFFICE VISIT, NEW - LEVEL 4 Diagnosis: ESSENTIAL HYPERTENSION[ICD9: 401.9] Diagnosis: DIABETES TYPE II[ICD9: 250.00] [facility] CPT- 4: 30674 05/04/2015 Plan of Care Planned Activity Notes [...] peripheral edema. 09/14/2018 Appointment: Elizabeth Milner WPtel: [address] [place], [place] [id number] (15 min) Moderate 09/14/2018 Patient Education: Patient Medication Summary Completed 09/14/2018 Visit Plan: Hypertension - well controlled at the [place]- continue with current medications, continue with no [...] this time. 09/04/2018 Appointment: Laney Mcmillan WPtel: [facility] [phone] (30 min) Complex 09/04/2018 Patient Education: Patient Medication Summary Completed 09/04/2018 Patient Education: Diabetes Completed 09/04/2018 Appointment: Laney Mcmillan WPtel: [address] [place], [place] [id number] (15 min) Moderate 08/28/2018 Visit Plan: Hypertension [...] or concerns. 08/17/2018 Appointment: Elizabeth Milner WPtel: [facility] [place] (15 min) Moderate 08/17/2018 Patient Education: [...] concerns. 08/08/2018 Appointment: Kate Sow WPtel: [phone] [facility] 30 min appointments only in this slot 08/08/2018 Patient Education: Patient Medication Summary Completed 08/08/2018 Patient Education: Diabetes Completed 08/08/2018 Appointment: Kate Sow WPtel: [phone] [facility] (15 min) Moderate 08/07/2018 Visit Plan: [...] control. 07/17/2018 Appointment: Elizabeth Milner WPtel: [phone] [facility] (15 min) Moderate 07/17/2018 Patient Education: [...] control. 06/26/2018 Appointment: [phone] (15 min) Moderate 06/26/2018 Patient Education: Patient Medication Summary Completed 06/26/2018 Patient Education: Diabetes Completed 06/26/2018 Visit Plan: Diabetes improved control while at the long-term - discussed with patient and her daughte [...] Living. 06/21/2018 App[facility]ment: [phone] ([facility] min) Moderate 06/21/2018 Patient Education: Patient Medication Summary Completed 06/21/2018 Patient Education: Diabetes Completed 06/21/2018 Appointment: [phone] [place] (15 min) Moderate 05/09/2018 [...] sleep better. 05/02/2018 Appointment: Kate Sow WPtel: [facility] [place] [place] (15 min) Moderate 05/02/2018 Patient Education: Patient Medication Summary Completed 05/02/2018 Care Plan: X-RAY EXAM L-S SPINE 10/21 VWS LOINC : 93523-8 Pending 05/02/2018 Visit Plan: Low back pain- the patient was instructed in appropriate posture - The pt is to use prn antiinflammatories to manage acute pain. The patient is to call the office if the pain is worsening or does not improve. 04/27/2018 Appointment: Elizabeth Milner WPtel: [facility] [place] [place] (15 min) Moderate 04/27/2018 Patient Education: Patient Medication Summary Completed 04/27/2018 Visit Plan: Double vision-suspect due to elevated blood sugars -recommend patient bring in log of blood sugars to next appt -notify endoscopy specialty technician of elevated readings and watch diet closely -also recommend f/u with eye doctor Rash-suspect shingles-rx for acyclovir provided and instructed on use 04/20/2018 Appointment: Laney Mcmillan WPtel: [phone] [phone] [place] (15 min) Moderate 04/20/2018 Patient [...] worsen. 04/12/2018 Appointment: Elizabeth Milner WPtel: [phone] [facility]66[facility] (15 min) Moderate 04/12/2018 Patient Education: [...] controlled. 04/10/2018 Appointment: Kate Sow WPtel: [phone] [facility] (15 min) Moderate 04/10/2018 Patient Education: [...] acute concerns. 04/03/2018 Appointment: [facility] Mcmillan [phone] (15 min) Moderate 04/03/2018 Patient Education: Patient [...] home. 03/13/2018 Appointment: [phone] (15 min) Moderate 03/13/2018 Patient Education: [...] diet. 02/01/2018 Appointment: [facility]el: [phone] [place] (15 min) Moderate 02/01/2018 Patient [...] 100mg daily. 01/18/2018 Appointment: [facility]ow [phone] [place] (15 min) Moderate 01/18/2018 Patient Education: Patient Medication Summary Completed 01/18/2018 Appointment: [facility]el[phone] [place] (15 min) Moderate 01/11/2018 Appointment: [facility]el: [phone] [place] (15 min) Moderate 12/25/2017 [...] outpt 12/21/2017 Appointment: [facility]el: [phone] [place] (15 min) Moderate 12/21/2017 Patient Education: Patient Medication Summary Completed 12/21/2017 Appointment: [facility]ow [facility]el: [phone] [place] (15 min) Moderate 12/13/2017 Visit [...] glucose control. 10/10/2017 Appointment: Elizabeth Milner WPtel: [facility] [place] (15 min) Moderate 10/10/2017 Patient Education: [...] at home. 09/07/2017 Appointment: Elizabeth Milner [facility]Ptel: [phone] [facility] (30 min) Complex 09/07/2017 Patient Education: Patient Medication Summary Completed 09/07/2017 Appointment: Kate Sow WPtel: [phone] [facility] (15 min) Moderate 09/05/2017 Visit Plan: Hospital follow up - Dr. Sow in to see pt - pt was in the hospital with uncontrolled hypertension and a. fib - controlled at this time - persistent weakness requiring ongoing PT and assistance with some ADLs and medication management - will admit pt to alf facility for ongoing rehabilitation. 08/30/2017 Appointment: Elizabeth Milner WPtel: [phone] [facility] (30 min) Complex 08/30/2017 Patient Education: Patient Medication Summary Completed 08/30/2017 Appointment: Elizabeth Milner WPtel: [phone] [facility] (15 min) Moderate 08/29/2017 Visit Plan: [...] home. 08/15/2017 Appointment: [phone] (15 min) Moderate 08/15/2017 Patient Education: Patient Medication Summary Completed 08/15/2017 Care Plan: %Hba1C LOINC : 53495-7 Cancelled 08/15/2017 [phone] Patient's informed. Completed 06/26/2017 Visit Plan: Diabetes [...] control. Gait Instability - referral to [facility] physical therapy for gait instability. Hypertension - well controlled - continue with current medications , continue with no added salt diet. Pt has been encouraged to exercise daily. The pt has been advised to call the office if there are any acute concerns about change in blood pressure readings at home. 06/15/2017 Appointment: Kate Sow WPtel: [address] [place] [address] (15 min) Moderate 06/15/2017 Patient Education: Patient Medication Summary Completed 06/15/2017 Care Plan: Referral Order SNOMED-CT : [id number] Pending 06/15/2017 Appointment: Nurse Visit 05/29/2017 Patient [...] and come in here or go to [facility] or [facility] to get this set of [...] with Statin 05/11/2017 Appointment: [facility]el[phone] (15 min) Moderate 05/11/2017 Patient [...] daily. 01/05/2017 Appointment: [facility]el[phone] (15 min) Moderate 01/05/2017 Patient [...] home. 09/20/2016 Appointment: [facility]el[phone] (30 min) Complex 09/20/2016 Patient [...] concerns. 09/01/2016 Appointment: Laney Mcmillan WPtel: [phone] [phone] [place] (30 min) Complex 09/01/2016 Patient Education: Patient Medication Summary Completed 09/01/2016 Appointment: Kate Sow WPtel: [phone] [facility] [place] (15 min) Moderate 08/31/2016 Appointment: [...] controlled. 06/02/2016 Appointment: [facility]Ptel: [phone] [place] (15 min) Moderate 06/02/2016 Patient [...] 03/25/2016 Appointment: Laney Mcmillan WPtel: [phone] [phone] (10 min) Simple 03/25/2016 Patient Education: [...] DM - managed by Dr. Johnson from [place] 01/26/2016 Patient Education: Patient Medication Summary Completed 01/26/2016 Patient Education: Hypertension Completed 01/26/2016 Appointment: Laney Mcmillan WPtel: [phone] [phone] (30 min) Complex 12/31/2015 Visit Plan: [...] less controlled. 10/29/2015 Appointment: Kate [facility]ow [facility]Ptel: [phone] (15 min) Moderate 10/29/2015 Patient Education: Patient Medication Summary Completed 10/29/2015 Patient Education: Hypertension Completed 10/29/2015 Appointment: Kate Sow WPtel: [phone] [facility] (15 min) Moderate 09/14/2015 Visit Plan: [...] today, as soon as you get to [place], monday morning, then start taking the lasix [...] handout Begin using muscle rub on back ([place] balm) 05/04/2015 Appointment: [facility]ow [facility]Ptel: [phone] [facility] [place] ([place]) New Patient 05/04/2015 Patient Education: Patient Medication Summary Completed 05/04/2015 Patient Education: Hypertension Completed 05/04/2015 Referral[phone] [place] Referral Appointment Requested Instructions Comment see if Dr. Johnson has the toujeo samples for you - if not , go to the pharmacy to picking tech the toujeo script. if the toujeo script [...] control. Gait Instability - referral to [facility] physical therapy for gait instability. Hypertension [...] of blood sugars to next appt -notify endoscopy specialty technician of elevated readings and watch diet [...] she is feeling on Monday. take lasix today as soon as you get to monday [...] . Hypertension - well controlled at the [place]- continue with current medications, continue with no [...] DM - managed by Dr. Johnson from [place] . Low back pain- the patient was [...] . Diabetes improved control while at the long-term - discussed with patient and her hirale [...] handout Begin using muscle rub on back ([place] balm) Begin taking Lasix again No blood [...] handout Begin using muscle rub on back ([place] balm) . Edema - pt has been [...]
[2018-12-26 07:29] LABS: INR 1.1 (0.8-1.4); PROTHROMBIN TIME PATIENT 14.8 SEC (12.2-14.7)
--- OUTSIDE RECORDS SUMMARY | 2018-12-26 07:30 | XMS REPORT | CCD ---
Author Author [facility] Organization [facility] Address [address] [place] [address] Phone Care Team Providers Care Administrative Support Specialist Name Role Phone PP Unavailable CCM Unavailable Summary Purpose Interface Exchange Insurance Providers Payer name Policy type / Coverage type Covered green party ID Effective Begin Date Effective End Date WPS Medicare Part B Medicare Part B [id number] Unknown Unknown [employer] Medicare Part B [id number] Unknown Unknown Family history Mother Diagnosis Age [...] Unknown 3 05/04/[address]: 850139960 Never smoker 05/04/2015 Alcohol history Unknown occasionally drinks alcohol 05/04/2015 Allergies, Adverse Reactions, Alerts Substance Reaction Codes Entered Date Inactivated Date Status * NO KNOWN DRUG ALLERGIES Unknown 07/08/2015 No Inactive Date Active Past Medical History Illness Codes Condition Status Onset Date Resolved Date Localized edema ICD-9 : 782.3 ICD-10: R60.0 Active 06/21/2018 Unknown Essential (primary) hypertension ICD-9: 401.1 ICD-10: [...] Problems Condition Codes Effective Dates Condition Status Localized edema ICD-9 : 782.3 ICD-10: R60.0 06/21/2018 Active Essential (primary) hypertension ICD-9: 401.1 ICD-10: [...] Start Date Stop Date Status Fill Instructions Toujeo SoloStar U-300 Insulin 300 unit/mL (1.5 mL) subcutaneous pen RxNorm: 4800886 20 Unit(s) SQ QHS MANAGED BY DR. JOHNSON 2017 No Stop Date Active Voltaren 1 % topical gel RxNorm: 972924 APPLY THIN LAYER TOPICALLY TO AFFECTED AREA 4 TIMES DAILY 08/24/2018 No Stop Date Active Levaquin 250 mg tablet RxNorm: 693552 2 tabs on 1st day then 1 tab day 2-7 Tablet( s) PO daily 08/20/2018 09/03/2018 Inactive dc keflex Levaquin 250 mg tablet RxNorm: 621218 2 tabs on 1st day then 1 tab day 2-7 Tablet( s) PO daily 08/20/2018 08/19/2018 Inactive dc keflex Keflex 500 mg capsule RxNorm: 219558 1 Capsule(s) PO TID 201708/19/2018 Inactive Toujeo SoloStar U-300 Insulin 300 unit/mL (1.5 mL) subcutaneous pen RxNorm: 9517164 25 Unit(s) SQ QHS MANAGED BY DR. JOHNSON 201709/03/2018 Inactive Norvasc 10 mg tablet RxNorm: 325575 1 Tablet(s) PO daily 201701/25/2019 Active update RX Eliquis 2.5 mg tablet RxNorm: 1256004 Tablet(s) PO TAKE ONE TABLET BY MOUTH TWICE DAILY 06/21/2018 06/15/2019 Active cyclobenzaprine 5 mg tablet RxNorm: 413416 1/2 Tablet(s) PO BID as needed muscle spasms/back pain 05/02/2018 05/31/2018 Inactive tramadol 50 mg tablet RxNorm: 441809 1 Tablet(s) PO TID as needed for pain 04/27/2018 05/01/2018 Inactive Voltaren 1 % topical gel RxNorm: 739429 1 Application TOP QID 04/27/2018 08/23/2018 Inactive acyclovir 400 mg tablet RxNorm: 582104 2 Tablet(s) PO QID 04/2006/20/2018 Inactive mupirocin 2 % topical ointment RxNorm: 987681 1 Application TOP BID 04/20/2018 04/29/2018 Inactive right cheek/nose gentamicin 0.3 % eye drops RxNorm: 523262 2 Drop(s) ophthalmic (eye) left eye Q8 04/16/2018 09/03/2018 Inactive prednisone 20 mg tablet RxNorm: 761241 2 Tablet(s) PO daily 04/12/2018 Inactive prednisone 20 mg tablet RxNorm: 441440 2 Tablet(s) PO daily 04/17/2018 Inactive Kenalog 40 mg/mL suspension for injection RxNorm: 0439508 1 Milliliter(s) Inj 04/12/2018 04/12/2018 Inactive losartan 100 mg tablet RxNorm: 629522 1 Tablet(s) PO QAM 201712/28/2018 Active update RX -dose should be 100mg Norvasc 5 mg tablet RxNorm: 471226 1 Tablet(s) PO daily 201707/29/2018 Inactive update RX losartan 50 mg tablet RxNorm: 550538 TAKE ONE TABLET BY MOUTH ONCE DAILY IN THE MORNING 03/26/2018 04/02/2018 Inactive Humalog U-100 Insulin 100 unit/mL subcutaneous solution RxNorm: 211895 15 Unit(s) SQ AC MANAGED BY DR. JOHNSON 03/13/2018 No Stop Date Active 201- 200 17 units, greater than 300 21 units Tourutho SoloStar U-300 Insulin 300 unit/mL (1.5 mL) subcutaneous pen RxNorm: 3368994 20 Unit(s) SQ QHS MANAGED BY DR. JOHNSON 201707/10/2018 Inactive losartan 100 mg tablet RxNorm: 915624 1 Tablet(s) PO QAM 201704/02/2018 Inactive pantoprazole 40 mg tablet,delayed release RxNorm: 432954 1 Tablet(s) PO daily 01/11/2018 07/19/2018 Inactive carvedilol 12.5 mg tablet RxNorm: 658783 1 Tablet(s) PO BID 07/19/2018 Inactive Toujeo SoloStar U-300 Insulin 300 unit/mL (1.5 mL) subcutaneous pen RxNorm: 3986930 15 Unit(s) SQ QHS MANAGED BY DR. JOHNSON 201703/12/2018 Inactive Multaq 400 mg tablet RxNorm: 508736 1 Tablet(s) PO BID 201712/14/2018 Active potassium chloride ER 10 mEq tablet,extended release RxNorm: 125090 1 Tablet(s) PO daily while on the Lasix 10/18/201701/2018 Inactive losartan 50 mg tablet RxNorm: 537564 1 Tablet(s) PO QAM 201601/17/2018 Inactive Lasix 20 mg tablet RxNorm: 949576 1 Tablet(s) PO daily 201610/03/2017 Inactive potassium chloride ER 10 mEq tablet,extended release RxNorm: 437987 1 Tablet(s) PO daily while on the Lasix 08/30/2017 Inactive Toujeo SoloStar 300 unit/mL (1.5 mL) subcutaneous insulin pen RxNorm: 1786163 35 Unit(s) SQ QHS MANAGED BY DR. JOHNSON 06/15/2017 10/12/2017 Inactive Eliquis 5 mg tablet RxNorm: 5751010 TAKE ONE TABLET BY MOUTH TWICE DAILY 03/01/2017 02/23/2018 Inactive Januvia 100 mg tablet RxNorm: 112649 1/2 Tablet(s) PO daily 07/19/2018 Inactive losartan 50 mg tablet RxNorm: 705335 1 Tablet(s) PO BID 201509/13/2017 Inactive amlodipine 10 mg tablet RxNorm: 497052 1 Tablet(s) PO daily 06/14/2017 Inactive generic for NORVASC losartan 50 mg tablet RxNorm: 963576 1 Tablet(s) PO daily 201508/31/2016 Inactive Toujeo SoloStar 300 unit/mL (1.5 mL) subcutaneous insulin pen RxNorm: 6746632 40 Unit(s) SQ QHS MANAGED BY DR. JOHNSON 07/01/2016 06/14/2017 Inactive Toujeo SoloStar 300 unit/mL (1.5 mL) subcutaneous insulin pen RxNorm: 2478898 35 Unit(s) SQ QHS MANAGED BY DR. JOHNSON 06/02/2016 06/30/2016 Inactive Humalog 100 unit/mL subcutaneous solution RxNorm: 685002 15 Unit(s) SQ AC MANAGED BY DR. JOHNSON 06/02/2016 03/12/2018 Inactive carvedilol 3.125 mg tablet RxNorm: 188728 1 Tablet(s) PO BID 04/23/2016 Inactive simvastatin 40 mg tablet RxNorm: 650317 1 Tablet(s) PO QHS 07/19/2018 Inactive Humalog 100 unit/mL subcutaneous solution RxNorm: 335089 13 Unit(s) SQ AC MANAGED BY DR. JOHNSON 01/26/2016 06/01/2016 Inactive Eliquis 5 mg tablet RxNorm: 0741606 1 Tablet(s) PO BID 201501/13/2017 Inactive carvedilol 6.25 mg tablet RxNorm: 499866 1 Tablet(s) PO BID 2016 Inactive Humalog 100 unit/mL subcutaneous solution RxNorm: 079071 Unit(s) SQ UD as directed by office 08/07/2015 01/25/2016 Inactive Klor-Con 10 mEq tablet,extended release RxNorm: 574765 1 Tablet(s) PO daily as needed 06/26/2015 10/23/2015 Inactive Lasix 20 mg tablet RxNorm: 131709 1 Tablet(s) PO daily as needed 06/26/2015 10/23/2015 Inactive metoprolol succinate ER 50 mg tablet,extended release 24 hr RxNorm: 884975 1 Tablet(s) PO daily No Start Date Active aspirin 81 mg capsule,delayed release RxNorm: 063591 1 Capsule(s) PO daily No Start Date Active Novolog U-100 Insulin aspart 100 unit/mL subcutaneous solution RxNorm: 859547 SSI 80-150 10u 151-200 15u 201-300 17u over 300 21u Unit(s) SQ AC & HS as needed No Start Date Active Co Q-10 50 mg capsule RxNorm: 436939 1 Capsule(s) PO daily No Start Date Active Lasix 20 mg tablet RxNorm: 1 Tablet(s) PO daily as needed edema No Start Date Active Culturelle Probiotics 10 billion cell-200 mg capsule RxNorm: 1 Capsule(s) PO TID No Start Date Active losartan 25 mg tablet RxNorm: 667627 1 Tablet(s) PO daily No Start Date 08/31/2016 Inactive losartan 100 mg tablet RxNorm: 023543 1 Tablet(s) PO daily No Start Date 06/30/2016 Inactive gentamicin 0.3 % eye drops RxNorm: 587743 2 Drop(s) ophthalmic (eye) left eye Q8 No Start Date 04/15/2018 Inactive fluticasone 50 mcg/actuation nasal spray,suspension RxNorm: 978814 2 Bailey NASAL daily No Start Date 09/03/2018 Inactive Multaq 400 mg tablet RxNorm: 348063 1 Tablet(s) PO BID No Start Date 12/19/2017 Inactive Klor-Con 10 mEq tablet,extended release RxNorm: 818256 1 Tablet(s) PO daily as needed No Start Date 06/25/2015 Inactive simvastatin 40 mg tablet RxNorm: 495505 1 Tablet(s) PO daily No Start Date 02/04/2016 Inactive carvedilol 6.25 mg tablet RxNorm: 374115 1 Tablet(s) PO BID No Start Date 11/30/2015 Inactive cetirizine 10 mg tablet RxNorm: 9787181 1 Tablet(s) PO daily No Start Date 09/03/2018 Inactive Eliquis 5 mg tablet RxNorm: 0374254 1 Tablet(s) PO BID No Start Date 01/19/2016 Inactive Toujeo SoloStar 300 unit/mL (1.5 mL) subcutaneous insulin pen RxNorm: 3314059 33 Unit(s) SQ QHS MANAGED BY DR. JOHNSON No Start Date 06/01/2016 Inactive Lasix 20 mg tablet RxNorm: 1 Tablet(s) PO daily as needed No Start Date 06/25/2015 Inactive atorvastatin 40 mg tablet RxNorm: 756272 1 Tablet(s) PO daily No Start Date 09/03/2018 Inactive Humalog 100 unit/mL subcutaneous solution RxNorm: 743696 10 Unit(s) SQ TID No Start Date 08/06/2015 Inactive amlodipine 5 mg tablet RxNorm: 111786 1 Tablet(s) PO daily No Start Date 08/31/2016 Inactive Norvasc 2.5 mg tablet RxNorm: 968667 1 Tablet(s) PO daily No Start Date 04/02/2018 Inactive Medication Administered Medication Codes Instructions Start Date Status Kenalog 40 mg/mL suspension for injection RxNorm: 3052847 1Milliliter 04/12/2018 No longer Active Immunizations Vaccine Codes Date Status Influenza CVX: 141 06/02/2016 completed Influenza CVX: 141 07/17/2015 completed Influenza CVX: 141 06/18/2014 completed Pneumococcal CVX: 33 06/18/2014 completed Assessments Condition Codes Effective Dates Localized edema ICD-10: R60.0 ICD-9: 782.3 09/14/2018 Type 2 diabetes mellitus with hyperglycemia ICD-10: [...] Visit Reason For Visit Effective Dates Notes edema 09/14/2018 Hospital Follow Up 09/04/2018 Hospital [...] 31.2 pg 05/25/2017 Cbc With Differential Ord2 Dupage% 8.9 % 05/25/2017 Cbc With Differential Ord2 [...] 3.78 K/ul 05/25/2017 Cbc With Differential Ord2 Dupage ABS# 0.7 K/ul 05/25/2017 Cbc With Differential Ord2 Eos ABS# 0.8 K/ul 05/25/2017 Cbc With Differential Ord2 Baso ABS# 0.3 K/ul 05/25/2017 Manual Differential Ord52 D-Neutr 50 % 05/25/2017 Manual Differential Ord52 D-Lymph 38 % 05/25/2017 Manual Differential Ord52 D-Eos 10 % 05/25/2017 Manual Differential Ord52 D-1 2 NRBC 05/25/2017 Comp Metabolic Isk179 NA 140 mEq/L 05/25/2017 Comp Metabolic Nlg021 K 4.0 mEq/L 05/25/2017 Comp Metabolic Gow199 CL 107 mEq/L 05/25/2017 Comp Metabolic Okk376 CO2 22.0 mEq/L 05/25/2017 Comp Metabolic Wgj964 ANION GAP 15 05/25/2017 Comp Metabolic Pob998 GLUCOSE 97 mg/dL 05/25/2017 Comp Metabolic Bym952 Creat 0.9 mg/dL 05/25/2017 Comp Metabolic Yvx408 eGFR 61 ml/min/1.73m2 05/25/2017 Comp Metabolic Xob563 BUN 16 mg/dL 05/25/2017 Comp Metabolic Ugq152 B/C Ratio 17.4 Ratio 05/25/2017 Comp Metabolic Rlz933 CALCIUM 9.1 mg/dL 05/25/2017 Comp Metabolic Tgs860 ALK PHOS 109 U/L 05/25/2017 Comp Metabolic Ktf338 AST(SGOT) 19 U/L 05/25/2017 Comp Metabolic Mnd020 ALT(SGPT) 17 U/L 05/25/2017 Comp Metabolic Mgu525 BILI T 0.4 mg/dL 05/25/2017 Comp Metabolic Zvw756 ALBUMIN 3.3 g/dL 05/25/2017 Comp Metabolic Jwi305 TPRO 6.0 g/dL 05/25/2017 Comp Metabolic Qga636 GLOB 2.7 g/dL 05/25/2017 Comp Metabolic Lay952 A/G Ratio 1.2 Ratio 05/25/2017 Comp Metabolic Gka672 Osmo 281 mOsmo 05/25/2017 Lipid Ord30 CHOL 204 mg/dL 05/25/2017 Lipid Ord30 HDL 49.0 mg/dl 05/25/2017 Lipid Ord30 TRIG 117 mg/dL 05/25/2017 Lipid Ord30 LDL 132 mg/dL 05/25/2017 Lipid Ord30 C/HDL 4.2 Ratio 05/25/2017 %Hba1C Qls730 % HbA1c 95160-7 10.5 % 05/25/2017 %Hba1C Okq165 Gluc Ave 255 mg/dL 05/25/2017 Microalbumin Bwo939 MicroAlb 95.0 mg/dL 05/25/2017 Review of Systems [...] lips 07/21/2015 None Full Exam - General 1995 Ears/Nose/Throat lips/teeth/gingiva Overall: normal dentition 07/21/2015 None Full Exam - General 1994 Ears/Nose/Throat oral cavity/pharynx/larynx Overall: oral mucosa clear 07/21/2015 None Full Exam - General 1994 Ears/Nose/Throat oral cavity/pharynx/larynx Overall: oropharyngeal mucosa clear 07/21/2015 None Full Exam - General 1995 Ears/Nose/Throat oral cavity/pharynx/larynx Overall: hypopharynx benign 07/21/2015 [...] Procedures Procedure Codes Date DRAIN/INJECT JOINT/BURSA CPT-4: 47687 04/12/2018 TRIAMCINOLONE ACET INJ NOS CPT-4: J3301 04/12/2018 PPPS, SUBSEQ VISIT CPT -4: G0439 02/22/2018 ADMIN INFLUENZA VIRUS VAC CPT-4: G0008 06/02/2016 FLU VACC PRSV FREE INC ANTIG CPT-4: 10266 06/02/2016 Vital Signs Date Vital 09/14/2018 Blood Pressure 1: 148/72 Code : 8480-6 BMI: 27.4 Code : 69433-7 Heart Rate 1 : 68 bpm Height: 4'8" SpO2: 98% Weight: 122 lbs 09/04/2018 Blood Pressure 1: 152/60 Code : 8480-6 BMI: 27.1 Code : 45029-6 Heart Rate 1 : 56 bpm Height: 4'8" SpO2: 96% Weight: 121 lbs 08/17/2018 Blood Pressure 1: 140/66 Code : 8480-6 BMI: 25.3 Code : 60874-8 Heart Rate 1 : 66 bpm Height: 4'8" SpO2: 97% Weight: 113 lbs 08/08/2018 Blood Pressure 1: 174/70 Code : 8480-6 BMI: 25.3 Code : 65252-8 Heart Rate 1 : 60 bpm Height: 4'8" SpO2: 97% Weight: 113 lbs 07/17/2018 Blood Pressure 1: 148/62 Code : 8480-6 BMI: 24.9 Code : 56679-7 Heart Rate 1 : 65 bpm Height: 4'8" SpO2: 97% Weight: 111 lbs 06/26/2018 Blood Pressure 1: 118/72 Code : 8480-6 BMI: 25.1 Code : 97828-6 Heart Rate 1 : 58 bpm Height: 4'8" SpO2: 97% Weight: 112 lbs 06/21/2018 Blood Pressure 1: 120/72 Code : 8480-6 BMI: 25.1 Code : 16168-0 Heart Rate 1 : 56 bpm Height: 4'8" SpO2: 96% Weight: 112 lbs 05/02/2018 Blood Pressure 1: 178/76 Code : 8480-6 BMI: 24.7 Code : 08073-4 Heart Rate 1 : 72 bpm Height: 4'8" SpO2: 98% Weight: 110 lbs 04/27/2018 Blood Pressure 1: 164/78 Code : 8480-6 BMI: 24.7 Code : 25841-8 Heart Rate 1 : 69 bpm Height: 4'8" SpO2: 97% Weight: 110 lbs 04/20/2018 Blood Pressure 1: 140/80 Code : 8480-6 BMI: 24.7 Code : 21641-9 Heart Rate 1 : 83 bpm Height: 4'8" SpO2: 97% Weight: 110 lbs 04/12/2018 Blood Pressure 1: 146/78 Code : 8480-6 Heart Rate 1: 68 bpm Height: SpO2: 98% Weight: 04/10/2018 Blood Pressure 1: 146/60 Code : 8480-6 BMI: 24.7 Code : 92706-7 Heart Rate 1 : 60 bpm Height: 4'8" SpO2: 95% Weight: 110 lbs 04/03/2018 Blood Pressure 1: 204/80 Code : 8480-6 BMI: 24.9 Code : 62844-4 Heart Rate 1 : 62 bpm Height: 4'8" SpO2: 98% Weight: 111 lbs 03/13/2018 Blood Pressure 1: 140/68 Code : 8480-6 BMI: 25.6 Code : 19582-8 Heart Rate 1 : 68 bpm Height: 4'8" SpO2: 95% Weight: 114 lbs 02/22/2018 Blood Pressure 1: 166/88 Code : 8480-6 BMI: 24.7 Code : 84067-8 Heart Rate 1 : 72 bpm Height: 4'8" SpO2: 95% Weight: 110 lbs 02/01/2018 Blood Pressure 1: 162/70 Code : 8480-6 BMI: 23.2 Code : 09724-1 Heart Rate 1 : 64 bpm Height: 4'11" SpO2: 95% Weight: 115 lbs 01/18/2018 Blood Pressure 1: 192/86 Code : 8480-6 BMI: 22.6 Code : 98164-2 Heart Rate 1 : 68 bpm Height: 4'11" SpO2: 94% Weight: 112 lbs 12/21/2017 Blood Pressure 1: 110/52 Code : 8480-6 BMI: 23.0 Code : 47408-3 Heart Rate 1 : 58 bpm Height: 4'11" SpO2: 94% Weight: 114 lbs 10/10/2017 Blood Pressure 1: 168/78 Code : 8480-6 BMI: 23.0 Code : 29668-8 Heart Rate 1 : 54 bpm Height: 4'11" SpO2: 98% Weight: 114 lbs 09/07/2017 Blood Pressure 1: 142/72 Code : 8480-6 Heart Rate 1: 84 bpm Height: 4'11" SpO2: 97% Weight: 08/30/2017 Blood Pressure 1: 188/82 Code : 8480-6 BMI: 24.4 Code : 50219-1 Heart Rate 1 : 79 bpm Height: 4'11" SpO2: 88% Temperature: 38.5 (C) / 101.3 (F) Weight: 121 lbs 08/15/2017 Blood Pressure 1: 166/78 Code : 8480-6 BMI: 22.8 Code : 36214-7 Heart Rate 1 : 71 bpm Height: 4'11" SpO2: 96% Weight: 113 lbs 06/15/2017 Blood Pressure 1: 138/68 Code : 8480-6 BMI: 22.8 Code : 80441-6 Heart Rate 1 : 54 bpm Height: 4'11" SpO2: 98% Weight: 113 lbs 05/29/2017 Blood Pressure 1: 96/46 Code : 8480-6 Blood Pressure 2: 116/57 Code: 8480-6 Heart Rate 1: 54 bpm 05/11/2017 Blood Pressure 1: 144/60 Code : 8480-6 BMI: 23.8 Code : 62726-7 Heart Rate 1 : 68 bpm Height: 4'11" SpO2: 97% Weight: 118 lbs 01/05/2017 Blood Pressure 1: 134/72 Code : 8480-6 BMI: 24.8 Code : 90184-6 Heart Rate 1 : 64 bpm Height: 4'11" SpO2: 94% Weight: 123 lbs 09/20/2016 Blood Pressure 1: 148/66 Code : 8480-6 BMI: 25.4 Code : 89642-8 Heart Rate 1 : 68 bpm Height: 4'11" SpO2: 97% Weight: 126 lbs 09/01/2016 Blood Pressure 1: 162/80 Code : 8480-6 BMI: 26.1 Code : 81226-5 Heart Rate 1 : 75 bpm Height: 4'11" SpO2: 95% Weight: 129 lbs 06/02/2016 Blood Pressure 1: 144/82 Code : 8480-6 BMI: 25.4 Code : 82554-6 Heart Rate 1 : 68 bpm Height: 4'11" SpO2: 98% Weight: 126 lbs 03/25/2016 Blood Pressure 1: 140/58 Code : 8480-6 BMI: 25.9 Code : 45089-2 Heart Rate 1 : 58 bpm Height: 4'11" SpO2: 95% Weight: 128 lbs 01/26/2016 Blood Pressure 1: 138/68 Code : 8480-6 BMI: 26.3 Code : 39735-7 Heart Rate 1 : 66 bpm Height: 4'11" SpO2: 96% Weight: 130 lbs 10/29/2015 Blood Pressure 1: 180/78 Code : 8480-6 BMI: 25.7 Code : 80952-2 Heart Rate 1 : 74 bpm Height: 4'11" SpO2: 97% Weight: 127 lbs 07/21/2015 Blood Pressure 1: 136/70 Code : 8480-6 BMI: 25.9 Code : 26532-8 Heart Rate 1 : 63 bpm Height: 4'11" SpO2: 95% Weight: 128 lbs 07/08/2015 Blood Pressure 1: 140/70 Code : 8480-6 BMI: 26.5 Code : 11148-7 Heart Rate 1 : 59 bpm Height: 4'11" SpO2: 94% Weight: 131 lbs 5 oz 05/04/2015 Blood Pressure 1: 140/60 Code : 8480-6 BMI: 25.7 Code : 07693-2 Heart Rate 1 : 60 bpm Height: 4'11" SpO2: 94% Weight: 127 lbs Functional Status No Functional Status data History of Present Illness Symptom Name Status Result Effective Date Notes Onset and Resolution gradual in onset 09/14/2018 [...] Codes Date EST. PATIENT, LEVEL IV Diagnosis: Localized edema[ICD10: R60.0] Elizabeth Sow MD, [facility] CPT-4 : 09302 09/14/2018 ([id number]) 46267 EST. PATIENT, LEVEL IV Diagnosis: Essential (primary) hypertension[ICD10: I10] Diagnosis: Localized edema[ICD10: R60.0] Diagnosis: Type 2 diabetes mellitus with hyperglycemia[ICD10: E11.65] [facility] CPT-4: 62673 09/04/2018 [id number] EST. PATIENT, LEVEL III Diagnosis: Essential (primary) hypertension[ICD10: I10] Diagnosis: Type 2 diabetes mellitus without complications[ICD10: E11.9] Diagnosis: Myalgia, other site[ICD10: M79.18] Elizabeth Sow MD, [facility] CPT-4: 29134 08/17/2018 ([id number]) 67439 EST. PATIENT, LEVEL IV Diagnosis: Essential (primary) hypertension[ICD10: I10] Diagnosis: Type 2 diabetes mellitus without complications[ICD10: E11.9] Kate Sow MD, [facility] CPT-4: 30152 08/08/2018 [id number] EST. PATIENT, LEVEL III Diagnosis: Type 2 diabetes mellitus with hyperglycemia[ICD10: E11.65] Elizabeth Sow MD, [facility] CPT-4: 82380 07/17/2018 [id number] EST. PATIENT, LEVEL III Diagnosis: Type 2 diabetes mellitus with hyperglycemia[ICD10: E11.65] Diagnosis: Weakness[ICD10: R53.1] Diagnosis: Unsteadiness on feet[ICD10: R26.81] Elizabeth Sow MD, [facility] CPT-4: 74080 06/26/2018 ([id number]) 71206 EST. PATIENT, LEVEL IV Diagnosis: Type 2 diabetes mellitus with hyperglycemia[ICD10: E11.65] Diagnosis: Essential (primary) hypertension[ICD10: I10] Diagnosis: Muscle weakness (generalized)[ICD10: M62.81] Diagnosis: Localized edema[ICD10: R60.0] Kate Sow MD, [facility] CPT- 4: 78774 06/21/2018 ([id number]) 41109 EST. 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 PATIENT, LEVEL III Diagnosis: Low back pain[ICD10: M54.5] Elizabeth Sow MD, [facility] CPT-4 : 68723 04/27/2018 ([id number]) 18911 EST. PATIENT, LEVEL IV Diagnosis: Diplopia[ICD10: H53.2] Diagnosis: Rash and other nonspecific skin eruption[ICD10: R21] Diagnosis: Type 2 diabetes mellitus with hyperglycemia[ICD10: E11.65] Laney Sow MD, [facility] CPT-4: 32144 04/20/2018 ([id number]) 01021 EST. PATIENT, LEVEL III Diagnosis: Low back pain[ICD10: M54.5] Elizabeth Sow MD, [facility] CPT-4 : 94234 04/12/2018 ([id number]) 51215 EST. PATIENT, LEVEL III Diagnosis: Essential (primary) hypertension[ICD10: I10] Diagnosis: Type 2 diabetes mellitus with hyperglycemia[ICD10: E11.65] Kate Sow MD [facility] CPT-4: 68173 04/10/2018 ([id number]) 10663 EST. PATIENT, LEVEL III Diagnosis: Lumbago with sciatica, left side[ICD10: M54.42] Diagnosis: Essential (primary) hypertension[ICD10: I10] Laney Sow MD, [facility] CPT-4: 36351 04/03/2018 ([id number]) 14973 EST. PATIENT, LEVEL IV Diagnosis: Type 2 diabetes mellitus with hyperglycemia[ICD10: E11.65] Diagnosis: Essential (primary) hypertension[ICD10: I10] Kate Sow MD, [facility] CPT-4: 89522 03/13/2018 ([id number]) 81624 EST. PATIENT, LEVEL IV Diagnosis: Essential (primary) hypertension[ICD10: I10] Diagnosis: Type 2 diabetes mellitus with hyperglycemia[ICD10: E11.65] Kate Sow MD , [facility] CPT-4: 43174 02/01/2018 ([id number]) 03166 EST. PATIENT, LEVEL IV Diagnosis: Type 2 diabetes mellitus with hyperglycemia[ICD10: E11.65] Diagnosis: Essential (primary) hypertension[ICD10: I10] Kate Sow MD, [facility] CPT-4: 64176 01/18/2018 ([id number]) Miscellaneous no charge Diagnosis: Type 2 diabetes mellitus with hyperglycemia[ICD10: E11.65] Elizabeth Sow MD, [facility] CPT-4: 11412 12/22/2017 ([id number]) 82024 EST. PATIENT, LEVEL IV Diagnosis: Type 2 diabetes mellitus with hyperglycemia[ICD10: E11.65] Diagnosis: Essential (primary) hypertension[ICD10: I10] Diagnosis: Muscle weakness (generalized)[ICD10: M62.81] Kate Sow MD, [facility] CPT-4: 94912 12/21/2017 46862 EST. PATIENT, LEVEL IV Diagnosis: Type 2 diabetes mellitus without complications[ICD10: E11.9] Diagnosis: Mixed hyperlipidemia[ICD10: E78.2] Diagnosis: Essential (primary) hypertension[ICD10: I10] Elizabeth Sow MD [facility] CPT-4: 81654 10/10/2017 88810 EST. PATIENT, LEVEL III Diagnosis: Weakness[ICD10: R53.1] Diagnosis: Essential (primary) hypertension[ICD10: I10] Elizabeth Sow MD [facility] CPT-4: 55169 09/07/2017 29513 EST. PATIENT, LEVEL III Diagnosis: Encounter for follow-up examination after completed treatment for conditions other than malignant neoplasm[ICD10: Z09] Diagnosis: Weakness[ICD10: R53.1] Diagnosis: Essential (primary) hypertension[ICD10: I10] Diagnosis: Dyspnea, unspecified[ICD10: R06.00] Diagnosis: Unsteadiness on feet[ICD10: R26.81] Elizabeth Sow MD [facility] CPT-4: 50968 08/30/2017 ([id number]) 37383 EST. PATIENT, LEVEL IV Diagnosis: Type 2 diabetes mellitus without complications[ICD10: E11.9] Diagnosis: Essential (primary) hypertension[ICD10: I10] Kate Sow MD [facility] CPT-4: 75277 08/15/2017 ([id number]) 70076 EST. PATIENT, LEVEL IV Diagnosis: Type 2 diabetes mellitus without complications[ICD10: E11.9] Diagnosis: Essential (primary) hypertension[ICD10: I10] Diagnosis: Unsteadiness on feet[ICD10: R26.81] Kate Sow MD, [facility] CPT-4: 05988 06/15/2017 ([id number]) Miscellaneous no charge Diagnosis: Essential (primary) hypertension[ICD10: I10] Laney Sow MD [facility] CPT-4: 44419 05/29/2017 ([id number]) 58578 EST. PATIENT, LEVEL IV Diagnosis: Type 2 diabetes mellitus without complications[ICD10: E11.9] Diagnosis: Essential (primary) hypertension[ICD10: I10] Diagnosis: Mixed hyperlipidemia[ICD10: E78.2] Kate Sow MD [facility] CPT-4: 23387 05/11/2017 ([id number]) 61132 EST. PATIENT, LEVEL IV Diagnosis: Type 2 diabetes mellitus without complications[ICD10: E11.9] Diagnosis: Essential (primary) hypertension[ICD10: I10] Kate Sow MD [facility] CPT-4: 32030 01/05/2017 ([id number]) 55106 EST. PATIENT, LEVEL III Diagnosis: Essential (primary) hypertension[ICD10: I10] Kate Sow MD [facility] CPT-4: 36994 09/20/2016 ([id number]) 89485 EST. PATIENT, LEVEL III Diagnosis: Essential (primary) hypertension[ICD10: I10] Laney Sow MD, [facility] CPT-4: 03886 09/01/2016 ([id number]) Miscellaneous no charge Diagnosis: Impacted cerumen, right ear[ICD10: H61.21] Elizabeth Sow MD [facility] CPT-4: 78162 06/08/2016 ([id number]) 05604 EST. PATIENT, LEVEL IV Diagnosis: Type 2 diabetes mellitus without complications[ICD10: E11.9] Diagnosis: Essential (primary) hypertension[ICD10: I10] Diagnosis: Encounter for immunization[ICD10: Z23] Kate Sow MD, [facility] CPT-4: 26163 06/02/2016 30363 EST. PATIENT, LEVEL III Diagnosis: Essential (primary) hypertension[ICD10: I10] Diagnosis: Other specified cardiac arrhythmias[ICD10: I49.8] Elizabeth Sow MD, [facility] CPT-4: 78120 03/25/2016 ([id number]) 14841 EST. PATIENT, LEVEL IV Diagnosis: Type 2 diabetes mellitus without complications[ICD10: E11.9] Diagnosis: Essential (primary) hypertension[ICD10: I10] Kate Sow MD, [facility] CPT-4: 16654 01/26/2016 ([id number]) [id number] EST. PATIENT, LEVEL IV Diagnosis: Essential (primary) hypertension[ICD10: I10] Diagnosis: Type 2 diabetes mellitus without complications[ICD10: E11.9] Kate Sow MD, [facility] CPT-4: 26824 10/29/2015 ([id number]) 22605 EST. PATIENT, LEVEL IV Diagnosis: Essential (primary) hypertension[ICD10: I10] Diagnosis: Dyspnea, unspecified[ICD10: R06.00] Kate Sow MD, [facility] CPT-4: 70210 07/21/2015 ([id number]) [id number] EST. PATIENT, LEVEL III Diagnosis: Edema, unspecified[ICD10: R60.9] Kate Sow MD, [facility] CPT-4: 06090 07/08/2015 ([id number]) OFFICE VISIT, NEW - LEVEL 4 Diagnosis: ESSENTIAL HYPERTENSION[ICD9: 401.9] Diagnosis: DIABETES TYPE II[ICD9: 250.00] Kate Sow MD, [facility] CPT- 4: 05590 05/04/2015 Plan of Care Planned Activity Notes Codes Status Date Visit Plan: Edema - pt has been advised to elevate legs to prevent dependent edema, compression has been recommended to help to naturally decrease peripheral edema. Diuretic use has been discussed and pt has been instructed in appropriate use of such medication as necessary to further attempt to reduce peripheral edema. 09/14/2018 Appointment: Elizabeth Milner WPtel: [phone] [facility] (15 min) Moderate 09/14/2018 Patient Education: Patient Medication Summary Completed 09/14/2018 Visit Plan: Hypertension - well controlled at the [place]- continue with current medications, continue with no [...] this time. 09/04/2018 Appointment: Laney Mcmillan WPtel: [facility]1 [phone] (30 min) Complex 09/04/2018 Patient Education: Patient Medication Summary Completed 09/04/2018 Patient Education: Diabetes Completed 09/04/2018 App[facility]ment[phone] [place] (15 min) Moderate 08/28/2018 Visit Plan: [...] concerns. 08/17/2018 Appointment: [phone] [place] (15 min) Moderate 08/17/2018 Patient Education: [...] concerns. 08/08/2018 Appointment: [phone] 30 min appointments only in this slot 08/08/2018 Patient Education: Patient Medication Summary Completed 08/08/2018 Patient Education: Diabetes Completed 08/08/2018 Appointment: Kate Sow WPtel: [phone] [facility] (15 min) Moderate 08/07/2018 Visit [...] greater blood glucose control. 07/17/2018 Appointment: [facility] Miln[phone] (15 min) Moderate 07/17/2018 Patient [...] instability. 06/26/2018 Appointment: [phone] (15 min) Moderate 06/26/2018 Patient Education: Patient Medication Summary Completed 06/26/2018 Patient Education: Diabetes Completed 06/26/2018 Visit Plan: Diabetes improved [place] - discussed with patient and her daughte [...] Living. 06/21/2018 Appointment: Kate Sow [phone] (15 min) Moderate 06/21/2018 Patient Education: Patient Medication Summary Completed 06/21/2018 Patient Education: Diabetes Completed 06/21/2018 Appointment: Kate Sow [facility]Ptel: [phone] [place] (15 min) Moderate 05/09/2018 Visit Plan: [...] better. 05/02/2018 Appointment: Kate Sow WPtel: [phone] [facility] (15 min) Moderate 05/02/2018 Patient Education: Patient Medication Summary Completed 05/02/2018 Care Plan: X-RAY EXAM L-S SPINE 2/3 VWS LOINC : 88033-2 Pending 05/02/2018 Visit Plan: Low back pain- the patient was instructed in appropriate posture - The pt is to use prn antiinflammatories to manage acute pain. The patient is to call the office if the pain is worsening or does not improve. 04/27/2018 Appointment: [phone] (15 min) Moderate 04/27/2018 Patient Education: Patient Medication Summary Completed 04/27/2018 Visit Plan: Double vision-suspect due to elevated blood sugars -recommend patient bring in log of blood sugars to next appt -notify plant reliability engineer of elevated readings and watch diet closely -also recommend f/u with eye doctor Rash-suspect shingles-rx for acyclovir provided and instructed on use 04/20/2018 Appointment: Lane[facility] Mcmillan [phone] [place] (15 min) Moderate 04/20/2018 Patient Education: [...] worsen. 04/12/2018 Appointment: Elizabeth Milner WPtel: [phone] [facility] (15 min) Moderate 04/12/2018 Patient Education: Patient [...] controlled. 04/10/2018 Appointment: Kate Sow [facility]Ptel: [phone] [place] (15 min) Moderate 04/10/2018 Patient Education: [...] concerns. 04/03/2018 Appointment: Lane[facility] Mcmillan [facility]el[phone] [place] (15 min) Moderate 04/03/2018 Patient Education: [...] at home. 03/13/2018 Appointment: Kate Sow WPtel: [address] [place], [place] [phone] (15 min) Moderate 03/13/2018 Patient Education: Patient [...] diet. 02/01/2018 Appointment: Kate Sow [facility]Ptel: [phone] (15 min) Moderate 02/01/2018 Patient Education: Patient [...] daily. 01/18/2018 Appointment: Kate Sow WPtel: [phone] [facility] (15 min) Moderate 01/18/2018 Patient Education: Patient Medication Summary Completed 01/18/2018 Appointment: Kate Sow WPtel: [phone] (15 min) Moderate 01/11/2018 Appointment: Kate Sow WPtel: [phone] (15 min) Moderate 12/25/2017 Visit Plan: Diabetes [...] Generalized weakness - physical therapy at [facility] [place] outpt 12/21/2017 Appointment: Kate Sow WPtel: [phone] [facility] (15 min) Moderate 12/21/2017 Patient Education: Patient Medication Summary Completed 12/21/2017 Appointment: Kate Sow [facility]Ptel: [phone] (15 min) Moderate 12/13/2017 Visit Plan: Hypertension [...] control. 10/10/2017 Appointment: [facility] Mil[phone] (15 min) Moderate 10/10/2017 Patient [...] home. 09/07/2017 Appointment: [phone] (30 min) Complex 09/07/2017 Patient Education: Patient Medication Summary Completed 09/07/2017 Appointment: Kate Sow [facility]Ptel: [phone] (15 min) Moderate 09/05/2017 Visit Plan: Hospital follow up - Dr. Sow in to see pt - pt was in the hospital with uncontrolled hypertension and a. fib - controlled at this time - persistent weakness requiring ongoing PT and assistance with some ADLs and medication management - [facility] admit pt [facility]. 08/30/2017 Appointment: Elizabeth Milner WPtel: [phone] [facility] (30 min) Complex 08/30/2017 Patient Education: Patient Medication Summary Completed 08/30/2017 Appointment: Elizabeth Milner WPtel: [phone] [facility] (15 min) Moderate 08/29/2017 Visit [...] at home. 08/15/2017 Appointment: Kate Sow WPtel: [facility]5 [facility] (15 min) Moderate 08/15/2017 Patient Education: Patient Medication Summary Completed 08/15/2017 Care Plan: %Hba1C [facility] : [address]-3 Cancelled 08/15/2017 Referral: [facility] therapy WPtel: [phone] [facility] Patient's informed. Completed 06/26/2017 Visit [...] at home. 06/15/2017 Appointment: Kate Sow WPtel: [facility] [place] (15 min) Moderate 06/15/2017 Patient Education: Patient Medication Summary Completed 06/15/2017 Care Plan: Referral Order SNOMED-CT : [id number] Pending 06/15/2017 Appointment: Nurse Visit 05/29/2017 Patient [...] and come in here or go to [facility] or [facility] to get this set of labs done. [...] Statin 05/11/2017 Appointment: Kate Sow WPtel: [phone] [facility] (15 min) Moderate 05/11/2017 Patient Education: Patient [...] daily. 01/05/2017 Appointment: Kate Sow WPtel: [phone] (15 min) Moderate 01/05/2017 Patient Education: Patient Medication Summary Completed 01/05/2017 Visit Plan: Hypertension - well controlled - continue with current medications, continue with no added salt diet. Pt has been encouraged to exercise daily. The pt has been advised to call the office if there are any acute concerns about change in blood pressure readings at home. 09/20/2016 Appointment: Kate Sow WPtel: [phone] (30 min) Complex 09/20/2016 Patient Education: Patient [...] concerns. 09/01/2016 Appointment: Laney Mcmillan WPtel: [phone] [phone] (30 min) Complex 09/01/2016 Patient Education: Patient Medication Summary Completed 09/01/2016 Appointment: Kate Sow WPtel: [facility]5 [facility] (15 min) Moderate 08/31/2016 Appointment: [...] Sow WPtel: [facility] (15 min) Moderate 06/02/2016 Patient Education: Patient [...] Mcmillan WPtel: [phone] (10 min) Simple 03/25/2016 Patient Education: Patient [...] DM - managed by Dr. Johnson from [place] 01/26/2016 Patient Education: Patient Medication Summary Completed 01/26/2016 Patient Education: Hypertension Completed 01/26/2016 Appointment: Laney Mcmillan WPtel: [phone] [id number] (30 min) Complex 12/31/2015 Visit Plan: [...] controlled. 10/29/2015 Appointment: Kate Sow WPtel: [phone] [facility] (15 min) Moderate 10/29/2015 Patient Education: Patient Medication Summary Completed 10/29/2015 Patient Education: Hypertension Completed 10/29/2015 Appointment: Kate Sow WPtel: [phone] [facility] (15 min) Moderate 09/14/2015 Visit [...] today, as soon as you get to [place], monday morning, then start taking the lasix [...] handout Begin using muscle rub on back (Champlain balm) 05/04/2015 Appointment: Kate Sow [facility]Ptel: [phone] [place] (S) New Patient 05/04/2015 Patient Education: Patient Medication Summary Completed 05/04/2015 Patient Education: Hypertension Completed 05/04/2015 Referral: [phone] [place] Referral Appointment Requested Instructions Comment [...] improve or with any questions or concerns. give lasix and potassium daily x 5 days then daily prn weight gain 2# . Hypertension - well controlled at the [place]- continue with current medications, continue with no [...] current management-no changes at this time. . Weakness - improved - pt is [...] change in blood pressure readings at home. PT with Sade Amaya Increase amlodipine to [...] call for acute concerns. . Hypertension - not yet optimally controlled - however we will not change medications today. She has been advised to cut out extra salt in her diet. DM - will bring back glucose monitor for download next Monday. Continue with diabetic diet. see if Dr. Johnson has the toujeo samples for you - if not , go to the pharmacy to pick up man the toujeo script. if the toujeo script [...] DM - managed by Dr. Johnson from [place] . Diabetes Mellitus - Uncontrolled - per [...] allow for greater blood glucose control. . Edema - pt has been advised to elevate legs to prevent dependent edema, compression has been recommended to help to naturally decrease peripheral edema. Diuretic use has been discussed and pt has been instructed in appropriate use of such medication as necessary to further attempt to reduce peripheral edema. . Bradycardia - reports pt has brought [...] medication management - [facility] pt [facility]. Increase the toujeo to 20 units . [...] blood pressure readings at home. take lasix today as soon as you [...] blood sugars to next appt -notify plant reliability engineer of elevated readings and watch diet closely [...] to allow for greater blood glucose control. use the losartan 50mg - give her [...] 100mg daily. . Diabetes Mellitus - uncontrolled - [...] on januvia 100mg 1/2 pill daily. . Joint Injection - Pt was given [...] to become less controlled. . Hypertension - well controlled - continue [...] . Diabetes improved control [place] - discussed with patient and her hirale [...] handout Begin using muscle rub on back (Champlain balm) Begin taking Lasix again No blood [...] handout Begin using muscle rub on back (Champlain balm) . Diabetes Mellitus - improved control- [...] call for acute concerns. . Hypertension - uncontrolled - the patient's [...] and come in here or go to [facility] or [facility] to get this set [...] and come in here or go to [facility] or [facility] to get this set [...]
--- OUTSIDE RECORDS SUMMARY | 2018-12-26 07:34 | XMS REPORT | CCD ---
Author Author [facility] Organization [facility] Address [address] [place] [address] Phone Care Team Providers Care [employer] Tender Name Role Phone PP Unavailable CCM Unavailable Summary Purpose Interface Exchange Insurance Providers Payer name Policy type / Coverage type Covered republican ID Effective Begin Date Effective End Date WPS Medicare Part B Medicare Part B [id number] Unknown Unknown [employer] Medicare Part B [id number] Unknown Unknown Family history Mother Diagnosis Age [...] Unknown 3 05/04/[address]: 409842861 Never smoker 05/04/2015 Alcohol history Unknown occasionally [...] 300 unit/mL (1.5 mL) subcutaneous pen RxNorm: 5108625 20 Unit(s) SQ QHS MANAGED BY DR. JOHNSON 2017 No Stop Date Active Voltaren 1 % topical gel RxNorm: 912941 APPLY THIN LAYER TOPICALLY TO AFFECTED AREA 4 TIMES DAILY 08/24/2018 No Stop Date Active Levaquin 250 mg tablet RxNorm: 653728 2 tabs on 1st day then 1 tab day 2-7 Tablet( s) PO daily 08/20/2018 09/03/2018 Inactive dc keflex Levaquin 250 mg tablet RxNorm: 756225 2 tabs on 1st day then 1 tab day 2-7 Tablet( s) PO daily 08/20/2018 08/19/2018 Inactive dc keflex Keflex 500 mg capsule RxNorm: 623908 1 Capsule(s) PO TID 201708/19/2018 Inactive Toujeo SoloStar U-300 Insulin 300 unit/mL (1.5 mL) subcutaneous pen RxNorm: 6094850 25 Unit(s) SQ QHS MANAGED BY DR. JOHNSON 201709/03/2018 Inactive Norvasc 10 mg tablet RxNorm: 487254 1 Tablet(s) PO daily 201701/25/2019 Active update RX Eliquis 2.5 mg tablet RxNorm: 1861351 Tablet(s) PO TAKE ONE TABLET BY MOUTH TWICE DAILY 06/21/2018 06/15/2019 Active cyclobenzaprine 5 mg tablet RxNorm: 124531 1/2 Tablet(s) PO BID as needed muscle spasms/back pain 05/02/2018 05/31/2018 Inactive tramadol 50 mg tablet RxNorm: 141966 1 Tablet(s) PO TID as needed for pain 04/27/2018 05/01/2018 Inactive Voltaren 1 % topical gel RxNorm: 147277 1 Application TOP QID 04/27/2018 08/23/2018 Inactive acyclovir 400 mg tablet RxNorm: 055676 2 Tablet(s) PO QID 04/2006/20/2018 Inactive mupirocin 2 % topical ointment RxNorm: 938536 1 Application TOP BID 04/20/2018 04/29/2018 Inactive right cheek/nose gentamicin 0.3 % eye drops RxNorm: 996484 2 Drop(s) ophthalmic (eye) left eye Q8 04/16/2018 09/03/2018 Inactive prednisone 20 mg tablet RxNorm: 991619 2 Tablet(s) PO daily 04/12/2018 Inactive prednisone 20 mg tablet RxNorm: 007219 2 Tablet(s) PO daily 04/17/2018 Inactive Kenalog 40 mg/mL suspension for injection RxNorm: 7723635 1 Milliliter(s) Inj 04/12/2018 04/12/2018 Inactive losartan 100 mg tablet RxNorm: 267566 1 Tablet(s) PO QAM 201712/28/2018 Active update RX -dose should be 100mg Norvasc 5 mg tablet RxNorm: 262494 1 Tablet(s) PO daily 201707/29/2018 Inactive update RX losartan 50 mg tablet RxNorm: 186521 TAKE ONE TABLET BY MOUTH ONCE DAILY IN THE MORNING 03/26/2018 04/02/2018 Inactive Humalog U-100 Insulin 100 unit/mL subcutaneous solution RxNorm: 237215 15 Unit(s) SQ AC MANAGED BY DR. OJHNSON 03/13/2018 No Stop Date Active 201- 200 17 units, greater than 300 21 units Tourutho SoloStar U-300 Insulin 300 unit/mL (1.5 mL) subcutaneous pen RxNorm: 7225709 20 Unit(s) SQ QHS MANAGED BY DR. JOHNSON 201707/10/2018 Inactive losartan 100 mg tablet RxNorm: 642364 1 Tablet(s) PO QAM 201704/02/2018 Inactive pantoprazole 40 mg tablet,delayed release RxNorm: 785175 1 Tablet(s) PO daily 01/11/2018 07/19/2018 Inactive carvedilol 12.5 mg tablet RxNorm: 193921 1 Tablet(s) PO BID 07/19/2018 Inactive Toujeo SoloStar U-300 Insulin 300 unit/mL (1.5 mL) subcutaneous pen RxNorm: 8683205 15 Unit(s) SQ QHS MANAGED BY DR. JOHNSON 201703/12/2018 Inactive Multaq 400 mg tablet RxNorm: 441537 1 Tablet(s) PO BID 201712/14/2018 Active potassium chloride ER 10 mEq tablet,extended release RxNorm: 803085 1 Tablet(s) PO daily while on the Lasix 10/18/201701/2018 Inactive losartan 50 mg tablet RxNorm: 421757 1 Tablet(s) PO QAM 201601/17/2018 Inactive Lasix 20 mg tablet RxNorm: 167218 1 Tablet(s) PO daily 201610/03/2017 Inactive potassium chloride ER 10 mEq tablet,extended release RxNorm: 979430 1 Tablet(s) PO daily while on the Lasix 08/30/2017 Inactive Toujeo SoloStar 300 unit/mL (1.5 mL) subcutaneous insulin pen RxNorm: 1140590 35 Unit(s) SQ QHS MANAGED BY DR. JOHNSON 06/15/2017 10/12/2017 Inactive Eliquis 5 mg tablet RxNorm: 4662816 TAKE ONE TABLET BY MOUTH TWICE DAILY 03/01/2017 02/23/2018 Inactive Januvia 100 mg tablet RxNorm: 763469 1/2 Tablet(s) PO daily 07/19/2018 Inactive losartan 50 mg tablet RxNorm: 863180 1 Tablet(s) PO BID 201509/13/2017 Inactive amlodipine 10 mg tablet RxNorm: 180229 1 Tablet(s) PO daily 06/14/2017 Inactive generic for NORVASC losartan 50 mg tablet RxNorm: 208774 1 Tablet(s) PO daily 201508/31/2016 Inactive Toujeo SoloStar 300 unit/mL (1.5 mL) subcutaneous insulin pen RxNorm: 0023976 40 Unit(s) SQ QHS MANAGED BY DR. JOHNSON 07/01/2016 06/14/2017 Inactive Toujeo SoloStar 300 unit/mL (1.5 mL) subcutaneous insulin pen RxNorm: 4981415 35 Unit(s) SQ QHS MANAGED BY DR. JOHNSON 06/02/2016 06/30/2016 Inactive Humalog 100 unit/mL subcutaneous solution RxNorm: 410266 15 Unit(s) SQ AC MANAGED BY DR. JOHNSON 06/02/2016 03/12/2018 Inactive carvedilol 3.125 mg tablet RxNorm: 350759 1 Tablet(s) PO BID 04/23/2016 Inactive simvastatin 40 mg tablet RxNorm: 099046 1 Tablet(s) PO QHS 07/19/2018 Inactive Humalog 100 unit/mL subcutaneous solution RxNorm: 684341 13 Unit(s) SQ AC MANAGED BY DR. JOHNSON 01/26/2016 06/01/2016 Inactive Eliquis 5 mg tablet RxNorm: 0969017 1 Tablet(s) PO BID 201501/13/2017 Inactive carvedilol 6.25 mg tablet RxNorm: 047378 1 Tablet(s) PO BID 2016 Inactive Humalog 100 unit/mL subcutaneous solution RxNorm: 824502 Unit(s) SQ UD as directed by office 08/07/2015 01/25/2016 Inactive Klor-Con 10 mEq tablet,extended release RxNorm: 150407 1 Tablet(s) PO daily as needed 06/26/2015 10/23/2015 Inactive Lasix 20 mg tablet RxNorm: 663804 1 Tablet(s) PO daily as needed 06/26/2015 10/23/2015 Inactive metoprolol succinate ER 50 mg tablet,extended release 24 hr RxNorm: 618437 1 Tablet(s) PO daily No Start Date Active aspirin 81 mg capsule,delayed release RxNorm: 775922 1 Capsule(s) PO daily No Start Date Active Novolog U-100 Insulin aspart 100 unit/mL subcutaneous solution RxNorm: 923270 SSI 80-150 10u 151-200 15u 201-300 17u over 300 21u Unit(s) SQ AC & HS as needed No Start Date Active Co Q-10 50 mg capsule RxNorm: 075223 1 Capsule(s) PO daily No Start Date Active Lasix 20 mg tablet RxNorm: 1 Tablet(s) PO daily as needed edema No Start Date Active Culturelle Probiotics 10 billion cell-200 mg capsule RxNorm: 1 Capsule(s) PO TID No Start Date Active losartan 25 mg tablet RxNorm: 036369 1 Tablet(s) PO daily No Start Date 08/31/2016 Inactive losartan 100 mg tablet RxNorm: 075000 1 Tablet(s) PO daily No Start Date 06/30/2016 Inactive gentamicin 0.3 % eye drops RxNorm: 715025 2 Drop(s) ophthalmic (eye) left eye Q8 No Start Date 04/15/2018 Inactive fluticasone 50 mcg/actuation nasal spray,suspension RxNorm: 686998 2 Lyle NASAL daily No Start Date 09/03/2018 Inactive Multaq 400 mg tablet RxNorm: 724583 1 Tablet(s) PO BID No Start Date 12/19/2017 Inactive Klor-Con 10 mEq tablet,extended release RxNorm: 292480 1 Tablet(s) PO daily as needed No Start Date 06/25/2015 Inactive simvastatin 40 mg tablet RxNorm: 967867 1 Tablet(s) PO daily No Start Date 02/04/2016 Inactive carvedilol 6.25 mg tablet RxNorm: 525852 1 Tablet(s) PO BID No Start Date 11/30/2015 Inactive cetirizine 10 mg tablet RxNorm: 2357388 1 Tablet(s) PO daily No Start Date 09/03/2018 Inactive Eliquis 5 mg tablet RxNorm: 6918295 1 Tablet(s) PO BID No Start Date 01/19/2016 Inactive Toujeo SoloStar 300 unit/mL (1.5 mL) subcutaneous insulin pen RxNorm: 0613205 33 Unit(s) SQ QHS MANAGED BY DR. JOHNSON No Start Date 06/01/2016 Inactive Lasix 20 mg tablet RxNorm: 1 Tablet(s) PO daily as needed No Start Date 06/25/2015 Inactive atorvastatin 40 mg tablet RxNorm: 476489 1 Tablet(s) PO daily No Start Date 09/03/2018 Inactive Humalog 100 unit/mL subcutaneous solution RxNorm: 810023 10 Unit(s) SQ TID No Start Date 08/06/2015 Inactive amlodipine 5 mg tablet RxNorm: 977370 1 Tablet(s) PO daily No Start Date 08/31/2016 Inactive Norvasc 2.5 mg tablet RxNorm: 735649 1 Tablet(s) PO daily No Start Date 04/02/2018 Inactive Medication Administered Medication Codes Instructions Start Date Status Kenalog 40 mg/mL suspension for injection RxNorm: 9482972 1Milliliter 04/12/2018 No longer Active Immunizations Vaccine Codes Date Status Influenza CVX: 141 06/02/2016 completed Influenza CVX: 141 07/17/2015 completed Influenza CVX: 141 06/18/2014 completed Pneumococcal CVX: 33 06/18/2014 completed Assessments Condition Codes Effective Dates Type 2 diabetes mellitus with hyperglycemia ICD-10: E11.65 ICD-9: 250.02 09/04/2018 Essential (primary) hypertension ICD-10: I10 ICD-9: 401.1 09/04/2018 Localized edema ICD-10: R60.0 ICD-9: 782.3 09/04/2018 Type 2 diabetes mellitus without complications [...] Visit Effective Dates Notes Hospital Follow Up 09/04/2018 Hospital Follow Up [...] 31.2 pg 05/25/2017 Cbc With Differential Ord2 Dale% 8.9 % 05/25/2017 Cbc With Differential Ord2 [...] 3.78 K/ul 05/25/2017 Cbc With Differential Ord2 Dale ABS# 0.7 K/ul 05/25/2017 Cbc With Differential Ord2 Eos ABS# 0.8 K/ul 05/25/2017 Cbc With Differential Ord2 Baso ABS# 0.3 K/ul 05/25/2017 Manual Differential Ord52 D-Neutr 50 % 05/25/2017 Manual Differential Ord52 D-Lymph 38 % 05/25/2017 Manual Differential Ord52 D-Eos 10 % 05/25/2017 Manual Differential Ord52 D-1 2 NRBC 05/25/2017 Comp Metabolic Xld255 NA 140 mEq/L 05/25/2017 Comp Metabolic Enr219 K 4.0 mEq/L 05/25/2017 Comp Metabolic Gei888 CL 107 mEq/L 05/25/2017 Comp Metabolic Yec724 CO2 22.0 mEq/L 05/25/2017 Comp Metabolic Moa615 ANION GAP 15 05/25/2017 Comp Metabolic Vpu000 GLUCOSE 97 mg/dL 05/25/2017 Comp Metabolic Zcy375 Creat 0.9 mg/dL 05/25/2017 Comp Metabolic Ncw774 eGFR 61 ml/min/1.73m2 05/25/2017 Comp Metabolic Pny595 BUN 16 mg/dL 05/25/2017 Comp Metabolic Mhe565 B/C Ratio 17.4 Ratio 05/25/2017 Comp Metabolic Tkj928 CALCIUM 9.1 mg/dL 05/25/2017 Comp Metabolic Zwh210 ALK PHOS 109 U/L 05/25/2017 Comp Metabolic Wuv253 AST(SGOT) 19 U/L 05/25/2017 Comp Metabolic Yrt190 ALT(SGPT) 17 U/L 05/25/2017 Comp Metabolic Vjk632 BILI T 0.4 mg/dL 05/25/2017 Comp Metabolic Sxg075 ALBUMIN 3.3 g/dL 05/25/2017 Comp Metabolic Rbe812 TPRO 6.0 g/dL 05/25/2017 Comp Metabolic Lxu652 GLOB 2.7 g/dL 05/25/2017 Comp Metabolic Xvb514 A/G Ratio 1.2 Ratio 05/25/2017 Comp Metabolic Wdu005 Osmo 281 mOsmo 05/25/2017 Lipid Ord30 CHOL 204 mg/dL 05/25/2017 Lipid Ord30 HDL 49.0 mg/dl 05/25/2017 Lipid Ord30 TRIG 117 mg/dL 05/25/2017 Lipid Ord30 LDL 132 mg/dL 05/25/2017 Lipid Ord30 C/HDL 4.2 Ratio 05/25/2017 %Hba1C Wpf302 % HbA1c 60790-1 10.5 % 05/25/2017 %Hba1C Tyf535 Gluc Ave 255 mg/dL 05/25/2017 Microalbumin Hdk910 MicroAlb 95.0 mg/dL 05/25/2017 Review of Systems System Result Effective Dates Constitutional recent illness 09/04/2018 Constitutional No anorexia [...] nourished 07/17/2018 None Full Exam - General 1995 Eyes conjunctiva /eyelids Overall: conjunctiva clear 07/17/2018 [...] Procedures Procedure Codes Date DRAIN/INJECT JOINT/BURSA CPT-4: 56749 04/12/2018 TRIAMCINOLONE ACET INJ NOS CPT-4: J3301 04/12/2018 PPPS, SUBSEQ VISIT CPT -4: G0439 02/22/2018 ADMIN INFLUENZA VIRUS VAC CPT-4: G0008 06/02/2016 FLU VACC PRSV FREE INC ANTIG CPT-4: 58073 06/02/2016 Vital Signs Date Vital 09/04/2018 Blood Pressure 1: 152/60 Code : 8480-6 BMI: 27.1 Code : 24261-2 Heart Rate 1 : 56 bpm Height: 4'8" SpO2: 96% Weight: 121 lbs 08/17/2018 Blood Pressure 1: 140/66 Code : 8480-6 BMI: 25.3 Code : 10220-2 Heart Rate 1 : 66 bpm Height: 4'8" SpO2: 97% Weight: 113 lbs 08/08/2018 Blood Pressure 1: 174/70 Code : 8480-6 BMI: 25.3 Code : 05958-9 Heart Rate 1 : 60 bpm Height: 4'8" SpO2: 97% Weight: 113 lbs 07/17/2018 Blood Pressure 1: 148/62 Code : 8480-6 BMI: 24.9 Code : 04722-9 Heart Rate 1 : 65 bpm Height: 4'8" SpO2: 97% Weight: 111 lbs 06/26/2018 Blood Pressure 1: 118/72 Code : 8480-6 BMI: 25.1 Code : 70647-5 Heart Rate 1 : 58 bpm Height: 4'8" SpO2: 97% Weight: 112 lbs 06/21/2018 Blood Pressure 1: 120/72 Code : 8480-6 BMI: 25.1 Code : 67003-8 Heart Rate 1 : 56 bpm Height: 4'8" SpO2: 96% Weight: 112 lbs 05/02/2018 Blood Pressure 1: 178/76 Code : 8480-6 BMI: 24.7 Code : 07213-0 Heart Rate 1 : 72 bpm Height: 4'8" SpO2: 98% Weight: 110 lbs 04/27/2018 Blood Pressure 1: 164/78 Code : 8480-6 BMI: 24.7 Code : 17432-6 Heart Rate 1 : 69 bpm Height: 4'8" SpO2: 97% Weight: 110 lbs 04/20/2018 Blood Pressure 1: 140/80 Code : 8480-6 BMI: 24.7 Code : 41717-8 Heart Rate 1 : 83 bpm Height: 4'8" SpO2: 97% Weight: 110 lbs 04/12/2018 Blood Pressure 1: 146/78 Code : 8480-6 Heart Rate 1: 68 bpm Height: SpO2: 98% Weight: 04/10/2018 Blood Pressure 1: 146/60 Code : 8480-6 BMI: 24.7 Code : 72654-9 Heart Rate 1 : 60 bpm Height: 4'8" SpO2: 95% Weight: 110 lbs 04/03/2018 Blood Pressure 1: 204/80 Code : 8480-6 BMI: 24.9 Code : 96620-9 Heart Rate 1 : 62 bpm Height: 4'8" SpO2: 98% Weight: 111 lbs 03/13/2018 Blood Pressure 1: 140/68 Code : 8480-6 BMI: 25.6 Code : 54054-0 Heart Rate 1 : 68 bpm Height: 4'8" SpO2: 95% Weight: 114 lbs 02/22/2018 Blood Pressure 1: 166/88 Code : 8480-6 BMI: 24.7 Code : 29346-6 Heart Rate 1 : 72 bpm Height: 4'8" SpO2: 95% Weight: 110 lbs 02/01/2018 Blood Pressure 1: 162/70 Code : 8480-6 BMI: 23.2 Code : 02005-2 Heart Rate 1 : 64 bpm Height: 4'11" SpO2: 95% Weight: 115 lbs 01/18/2018 Blood Pressure 1: 192/86 Code : 8480-6 BMI: 22.6 Code : 83221-1 Heart Rate 1 : 68 bpm Height: 4'11" SpO2: 94% Weight: 112 lbs 12/21/2017 Blood Pressure 1: 110/52 Code : 8480-6 BMI: 23.0 Code : 64158-4 Heart Rate 1 : 58 bpm Height: 4'11" SpO2: 94% Weight: 114 lbs 10/10/2017 Blood Pressure 1: 168/78 Code : 8480-6 BMI: 23.0 Code : 10804-4 Heart Rate 1 : 54 bpm Height: 4'11" SpO2: 98% Weight: 114 lbs 09/07/2017 Blood Pressure 1: 142/72 Code : 8480-6 Heart Rate 1: 84 bpm Height: 4'11" SpO2: 97% Weight: 08/30/2017 Blood Pressure 1: 188/82 Code : 8480-6 BMI: 24.4 Code : 59664-9 Heart Rate 1 : 79 bpm Height: 4'11" SpO2: 88% Temperature: 38.5 (C) / 101.3 (F) Weight: 121 lbs 08/15/2017 Blood Pressure 1: 166/78 Code : 8480-6 BMI: 22.8 Code : 57388-8 Heart Rate 1 : 71 bpm Height: 4'11" SpO2: 96% Weight: 113 lbs 06/15/2017 Blood Pressure 1: 138/68 Code : 8480-6 BMI: 22.8 Code : 42617-5 Heart Rate 1 : 54 bpm Height: 4'11" SpO2: 98% Weight: 113 lbs 05/29/2017 Blood Pressure 1: 96/46 Code : 8480-6 Blood Pressure 2: 116/57 Code: 8480-6 Heart Rate 1: 54 bpm 05/11/2017 Blood Pressure 1: 144/60 Code : 8480-6 BMI: 23.8 Code : 23248-1 Heart Rate 1 : 68 bpm Height: 4'11" SpO2: 97% Weight: 118 lbs 01/05/2017 Blood Pressure 1: 134/72 Code : 8480-6 BMI: 24.8 Code : 52772-2 Heart Rate 1 : 64 bpm Height: 4'11" SpO2: 94% Weight: 123 lbs 09/20/2016 Blood Pressure 1: 148/66 Code : 8480-6 BMI: 25.4 Code : 80431-1 Heart Rate 1 : 68 bpm Height: 4'11" SpO2: 97% Weight: 126 lbs 09/01/2016 Blood Pressure 1: 162/80 Code : 8480-6 BMI: 26.1 Code : 46571-9 Heart Rate 1 : 75 bpm Height: 4'11" SpO2: 95% Weight: 129 lbs 06/02/2016 Blood Pressure 1: 144/82 Code : 8480-6 BMI: 25.4 Code : 13713-0 Heart Rate 1 : 68 bpm Height: 4'11" SpO2: 98% Weight: 126 lbs 03/25/2016 Blood Pressure 1: 140/58 Code : 8480-6 BMI: 25.9 Code : 20790-2 Heart Rate 1 : 58 bpm Height: 4'11" SpO2: 95% Weight: 128 lbs 01/26/2016 Blood Pressure 1: 138/68 Code : 8480-6 BMI: 26.3 Code : 41234-2 Heart Rate 1 : 66 bpm Height: 4'11" SpO2: 96% Weight: 130 lbs 10/29/2015 Blood Pressure 1: 180/78 Code : 8480-6 BMI: 25.7 Code : 39220-8 Heart Rate 1 : 74 bpm Height: 4'11" SpO2: 97% Weight: 127 lbs 07/21/2015 Blood Pressure 1: 136/70 Code : 8480-6 BMI: 25.9 Code : 99533-4 Heart Rate 1 : 63 bpm Height: 4'11" SpO2: 95% Weight: 128 lbs 07/08/2015 Blood Pressure 1: 140/70 Code : 8480-6 BMI: 26.5 Code : 01241-8 Heart Rate 1 : 59 bpm Height: 4'11" SpO2: 94% Weight: 131 lbs 5 oz 05/04/2015 Blood Pressure 1: 140/60 Code : 8480-6 BMI: 25.7 Code : 16413-1 Heart Rate 1 : 60 bpm Height: 4'11" SpO2: 94% Weight: 127 lbs Functional Status No Functional Status data History of Present Illness Symptom Name Status Result Effective Date Notes _ Other: uncontrolled blood sugar 09/04/2018 None [...] Encounters Encounter Performer Location Codes Date ( [id number] EST. PATIENT, LEVEL IV Diagnosis: Essential (primary) hypertension[ICD10: I10] Diagnosis: Localized edema[ICD10: R60.0] Diagnosis: Type 2 diabetes mellitus with hyperglycemia[ICD10: E11.65] Laney Sow MD, [facility] CPT-4: 85730 09/04/2018 26961 EST. PATIENT, LEVEL III Diagnosis: Essential (primary) hypertension[ICD10: I10] Diagnosis: Type 2 diabetes mellitus without complications[ICD10: E11.9] Diagnosis: Myalgia, other site[ICD10: M79.18] Elizabeth Swo MD, [facility] CPT-4: 36334 08/17/2018 [id number]) 62852 EST. PATIENT, LEVEL IV Diagnosis: Essential (primary) hypertension[ICD10: I10] Diagnosis: Type 2 diabetes mellitus without complications[ICD10: E11.9] Kate Sow MD, [facility] CPT-4: 79620 08/08/2018 48361 EST. PATIENT, LEVEL III Diagnosis: Type 2 diabetes mellitus with hyperglycemia[ICD10: E11.65] Elizabeth Sow MD, [facility] CPT-4: 97879 07/17/2018 26707 EST. PATIENT, LEVEL III Diagnosis: Type 2 diabetes mellitus with hyperglycemia[ICD10: E11.65] Diagnosis: Weakness[ICD10: R53.1] Diagnosis: Unsteadiness on feet[ICD10: R26.81] Elizabeth Sow MD, [facility] CPT-4: 70240 06/26/2018 ([id number]) 11728 EST. PATIENT, LEVEL IV Diagnosis: Type 2 diabetes mellitus with hyperglycemia[ICD10: E11.65] Diagnosis: Essential (primary) hypertension[ICD10: I10] Diagnosis: Muscle weakness (generalized)[ICD10: M62.81] Diagnosis: Localized edema[ICD10: R60.0] Kate Sow MD, [facility] CPT- 4: 30867 06/21/2018 ([id number]) 94129 EST. 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 PATIENT, LEVEL III Diagnosis: Low back pain[ICD10: M54.5] Elizabeth Sow MD, [facility] CPT-4 : 21808 04/27/2018 ([id number]) 80575 EST. PATIENT, LEVEL IV Diagnosis: Diplopia[ICD10: H53.2] Diagnosis: Rash and other nonspecific skin eruption[ICD10: R21] Diagnosis: Type 2 diabetes mellitus with hyperglycemia[ICD10: E11.65] Laney Sow MD, [facility] CPT-4: 40021 04/20/2018 ([id number]) 51067 EST. PATIENT, LEVEL III Diagnosis: Low back pain[ICD10: M54.5] Elizabeth Sow MD, [facility] CPT-4 : 99026 04/12/2018 ([id number]) 22440 EST. PATIENT, LEVEL III Diagnosis: Essential (primary) hypertension[ICD10: I10] Diagnosis: Type 2 diabetes mellitus with hyperglycemia[ICD10: E11.65] Kate Sow MD , [facility] CPT-4: 99069 04/10/2018 ([id number]) 83492 EST. PATIENT, LEVEL III Diagnosis: Lumbago with sciatica, left side[ICD10: M54.42] Diagnosis: Essential (primary) hypertension[ICD10: I10] Laney Sow MD, [facility] CPT-4: 71223 04/03/2018 ([id number]) 94649 EST. PATIENT, LEVEL IV Diagnosis: Type 2 diabetes mellitus with hyperglycemia[ICD10: E11.65] Diagnosis: Essential (primary) hypertension[ICD10: I10] Kate Sow MD, [facility] CPT-4: 20896 03/13/2018 ([id number]) 53295 EST. PATIENT, LEVEL IV Diagnosis: Essential (primary) hypertension[ICD10: I10] Diagnosis: Type 2 diabetes mellitus with hyperglycemia[ICD10: E11.65] Kate Sow MD , [facility] CPT-4: 97913 02/01/2018 ([id number]) 72363 EST. PATIENT, LEVEL IV Diagnosis: Type 2 diabetes mellitus with hyperglycemia[ICD10: E11.65] Diagnosis: Essential (primary) hypertension[ICD10: I10] Kate Sow MD, [facility] CPT-4: 82424 01/18/2018 ([id number]) Miscellaneous no charge Diagnosis: Type 2 diabetes mellitus with hyperglycemia[ICD10: E11.65] Elizabeth Sow MD, [facility] CPT-4: 64674 12/22/2017 ([id number]) 59067 EST. PATIENT, LEVEL IV Diagnosis: Type 2 diabetes mellitus with hyperglycemia[ICD10: E11.65] Diagnosis: Essential (primary) hypertension[ICD10: I10] Diagnosis: Muscle weakness (generalized)[ICD10: M62.81] Kate Sow MD, [facility] CPT-4: 30773 12/21/2017 75837 EST. PATIENT, LEVEL IV Diagnosis: Type 2 diabetes mellitus without complications[ICD10: E11.9] Diagnosis: Mixed hyperlipidemia[ICD10: E78.2] Diagnosis: Essential (primary) hypertension[ICD10: I10] Elizabeth Sow MD, [facility] CPT-4: 99023 10/10/2017 31308 EST. PATIENT, LEVEL III Diagnosis: Weakness[ICD10: R53.1] Diagnosis: Essential (primary) hypertension[ICD10: I10] Elizabeth Sow MD, [facility] CPT-4: 00230 09/07/2017 33257 EST. PATIENT, LEVEL III Diagnosis: Encounter for follow-up examination after completed treatment for conditions other than malignant neoplasm[ICD10: Z09] Diagnosis: Weakness[ICD10: R53.1] Diagnosis: Essential (primary) hypertension[ICD10: I10] Diagnosis: Dyspnea, unspecified[ICD10: R06.00] Diagnosis: Unsteadiness on feet[ICD10: R26.81] Elizabeth Sow MD, [facility] CPT-4: 16846 08/30/2017 ([id number]) 53401 EST. PATIENT, LEVEL IV Diagnosis: Type 2 diabetes mellitus without complications[ICD10: E11.9] Diagnosis: Essential (primary) hypertension[ICD10: I10] Kate Sow MD, [facility] CPT-4: 02804 08/15/2017 ([id number]) 25025 EST. PATIENT, LEVEL IV Diagnosis: Type 2 diabetes mellitus without complications[ICD10: E11.9] Diagnosis: Essential (primary) hypertension[ICD10: I10] Diagnosis: Unsteadiness on feet[ICD10: R26.81] Kate Swo MD [facility] CPT-4: 45215 06/15/2017 ([id number]) Miscellaneous no charge Diagnosis: Essential (primary) hypertension[ICD10: I10] Laney Sow MD [facility] CPT-4: 00021 05/29/2017 ([id number]) 85474 EST. PATIENT, LEVEL IV Diagnosis: Type 2 diabetes mellitus without complications[ICD10: E11.9] Diagnosis: Essential (primary) hypertension[ICD10: I10] Diagnosis: Mixed hyperlipidemia[ICD10: E78.2] Kate Sow MD [facility] CPT-4: 22217 05/11/2017 ([id number]) 57571 EST. PATIENT, LEVEL IV Diagnosis: Type 2 diabetes mellitus without complications[ICD10: E11.9] Diagnosis: Essential (primary) hypertension[ICD10: I10] Kate Sow MD [facility] CPT-4: 10265 01/05/2017 ([id number]) 44891 EST. PATIENT, LEVEL III Diagnosis: Essential (primary) hypertension[ICD10: I10] Kate Sow MD [facility] CPT-4: 01390 09/20/2016 ([id number]) 81066 EST. PATIENT, LEVEL III Diagnosis: Essential (primary) hypertension[ICD10: I10] Laney Sow MD [facility] CPT-4: 54915 09/01/2016 ([id number]) Miscellaneous no charge Diagnosis: Impacted cerumen, right ear[ICD10: H61.21] Elizabeth Sow MD [facility] CPT-4: 19766 06/08/2016 ([id number]) 21073 EST. PATIENT, LEVEL IV Diagnosis: Type 2 diabetes mellitus without complications[ICD10: E11.9] Diagnosis: Essential (primary) hypertension[ICD10: I10] Diagnosis: Encounter for immunization[ICD10: Z23] Kate Sow MD, [facility] CPT-4: 09389 06/02/2016 59576 EST. PATIENT, LEVEL III Diagnosis: Essential (primary) hypertension[ICD10: I10] Diagnosis: Other specified cardiac arrhythmias[ICD10: I49.8] Elizabeth Sow MD [facility] CPT-4: 03508 03/25/2016 ([id number]) 95558 EST. PATIENT, LEVEL IV Diagnosis: Type 2 diabetes mellitus without complications[ICD10: E11.9] Diagnosis: Essential (primary) hypertension[ICD10: I10] Kate Sow MD [facility] CPT-4: 58880 01/26/2016 ([id number]) 80540 EST. PATIENT, LEVEL IV Diagnosis: Essential (primary) hypertension[ICD10: I10] Diagnosis: Type 2 diabetes mellitus without complications[ICD10: E11.9] Kate Sow MD [facility] CPT-4: 75261 10/29/2015 ([id number]) 96996 EST. PATIENT, LEVEL IV Diagnosis: Essential (primary) hypertension[ICD10: I10] Diagnosis: Dyspnea, unspecified[ICD10: R06.00] Kate Sow MD [facility] CPT-4: 68792 07/21/2015 ([id number]) 57469 EST. PATIENT, LEVEL III Diagnosis: Edema, unspecified[ICD10: R60.9] Kate Sow MD [facility] CPT-4: 98871 07/08/2015 ([id number]) OFFICE VISIT, NEW - LEVEL 4 Diagnosis: ESSENTIAL HYPERTENSION[ICD9: 401.9] Diagnosis: DIABETES TYPE II[ICD9: 250.00] Kate Sow MD [facility] CPT- 4: 84645 05/04/2015 Plan of Care Planned Activity Notes Codes Status Date Visit Plan: Hypertension - well controlled at the MI- continue with current medications, continue with no [...] this time. 09/04/2018 Appointment: Laney Mcmillan WPtel: [facility]5 [phone] (30 min) Complex 09/04/2018 Patient Education: Patient Medication Summary Completed 09/04/2018 Patient Education: Diabetes Completed 09/04/2018 Appointment: Laney Mcmillan WPtel: [facility]5 [phone] (15 min) Moderate 08/28/2018 Visit Plan: Hypertension [...] or concerns. 08/17/2018 Appointment: Elizabeth Milner WPtel: [facility]5 [facility] (15 min) Moderate 08/17/2018 Patient Education: Patient [...] concerns. 08/08/2018 Appointment: Kate Sow WPtel: [phone] [facility] 30 min appointments only in this slot 08/08/2018 Patient Education: Patient Medication Summary Completed 08/08/2018 Patient Education: Diabetes Completed 08/08/2018 Appointment: Kate Sow WPtel: [phone] [facility] (15 min) Moderate 08/07/2018 Visit Plan: Diabetes [...] control. 07/17/2018 Appointment: Elizabeth Milner WPtel: [phone] [facility] [place] (15 min) Moderate 07/17/2018 Patient Education: [...] instability. 06/26/2018 [phone] ([facility]) Moderate 06/26/2018 Patient Education: [...] Living. 06/21/2018 [phone] [place] (15 min) Moderate 06/21/2018 Patient Education: Patient Medication Summary Completed 06/21/2018 Patient Education: Diabetes Completed 06/21/2018 [facility]ment: [phone] [place] (15 min) Moderate 05/09/2018 Visit [...] better. 05/02/2018 Appointment: Kate Sow WPtel: [phone] [facility] [place] (15 min) Moderate 05/02/2018 Patient Education: Patient Medication Summary Completed 05/02/2018 Care Plan: X-RAY EXAM L-S SPINE 10/21 [facility] LOINC : 93051-2 Pending 05/02/2018 Visit Plan: Low back pain- the patient was instructed in appropriate posture - The pt is to use prn antiinflammatories to manage acute pain. The patient is to call the office if the pain is worsening or does not improve. 04/27/2018 Appointment: Elizabeth Milner WPtel: [phone] [facility] [place] (15 min) Moderate 04/27/2018 Patient Education: Patient Medication Summary Completed 04/27/2018 Visit Plan: Double vision-suspect due to elevated blood sugars -recommend patient bring in log of blood sugars to next appt -notify lineman of elevated readings and watch diet closely -also recommend f/u with eye doctor Rash-suspect shingles-rx for acyclovir provided and instructed on use 04/20/2018 Appointment: Laney Mcmillan WPtel: [phone] [id number] [place] (15 min) Moderate 04/20/2018 Patient Education: [...] Milner WPtel: [phone] [id number] (15 min) Moderate 04/12/2018 Patient Education: [...] controlled. 04/10/2018 Appointment: Kate Sow WPtel: [phone] [facility] (15 min) Moderate 04/10/2018 Patient Education: Patient [...] concerns. 04/03/2018 Appointment: [phone] (15 min) Moderate 04/03/2018 Patient Education: [...] home. 03/13/2018 Appointment: [phone] (15 min) Moderate 03/13/2018 Patient Education: [...] diabetic diet. 02/01/2018 Appointment: [phone] (15 min) Moderate 02/01/2018 Patient Education: [...] daily. 01/18/2018 Appointment: [phone] [place] (15 min) Moderate 01/18/2018 Patient Education: Patient Medication Summary Completed 01/18/2018 Appointment: [phone] [place] (15 min) Moderate 01/11/2018 Appointment: [phone] [place] (15 min) Moderate 12/25/2017 Visit [...] home. Generalized weakness - physical therapy at [facility] outpt 12/21/2017 Appointment: [phone] [place] (15 min) Moderate 12/21/2017 Patient Education: Patient Medication Summary Completed 12/21/2017 Appointment: [phone] [place] (15 min) Moderate 12/13/2017 Visit [...] control. 10/10/2017 Appointment: [phone] (15 min) Moderate 10/10/2017 Patient Education: [...] at home. 09/07/2017 Appointment: [facility]el[phone] (30 min) Complex 09/07/2017 Patient Education: Patient Medication Summary Completed 09/07/2017 Appointment: Kate Sow WPtel: [phone] [facility] (15 min) Moderate 09/05/2017 Visit Plan: Hospital follow up - Dr. Sow in to see pt - pt was in the hospital with uncontrolled hypertension and a. fib - controlled at this time - persistent weakness requiring ongoing PT and assistance with some ADLs and medication management - will admit pt to assisted facility for ongoing rehabilitation. 08/30/2017 Appointment: [facility]el[phone] (30 min) Complex 08/30/2017 Patient Education: Patient Medication Summary Completed 08/30/2017 Appointment: [facility]Ptel[facility] [phone] [facility] (15 min) Moderate 08/29/2017 Visit Plan: [...] home. 08/15/2017 Appointment: [phone] (15 min) Moderate 08/15/2017 Patient Education: Patient Medication Summary Completed 08/15/2017 Care Plan: %Hba1C LOINC : 67107-3 Cancelled 08/15/2017 [phone] Patient's informed. Completed 06/26/2017 Visit [...] glucose control. 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 Hypertension - well controlled - continue with current medications , continue with no added salt diet. Pt has been encouraged to exercise daily. The pt has been advised to call the office if there are any acute concerns about change in blood pressure readings at home. 06/15/2017 Appointment: [phone] (15 min) Moderate 06/15/2017 Patient Education: Patient Medication Summary Completed 06/15/2017 Care Plan: Referral Order SNOMED-CT : [id number] Pending 06/15/2017 Appointment: Nurse Visit 05/29/2017 Patient [...] and come in here or go to [facility] or [facility] to get this set of [...] Statin 05/11/2017 Appointment: Kate [facility]ow [facility]el[phone] (15 min) Moderate 05/11/2017 Patient Education: [...] daily. 01/05/2017 Appointment: [phone] (15 min) Moderate 01/05/2017 Patient Education: [...] home. 09/20/2016 Appointment: [phone] (30 min) Complex 09/20/2016 Patient Education: [...] Mcmillan WPtel: [phone] [id number] [place] (30 min) Complex 09/01/2016 Patient Education: Patient Medication Summary Completed 09/01/2016 Appointment: Kate Sow WPtel: [phone] [facility] [place] (15 min) Moderate 08/31/2016 Appointment: Nurse [...] controlled. 06/02/2016 Appointment: Kate Sow WPtel: [phone] [facility] [place] (15 min) Moderate 06/02/2016 Patient Education: Patient Medication Summary Completed 06/02/2016 Patient Education: Hypertension Completed 06/02/2016 Visit Plan: Bradycardia - reports pt has brought in indicates that the pt has been having a pulse in the 40s-50s. Will adjust medications, pt is to notify clinic if her symptoms do not improve, or with any concerns. 03/25/2016 Appointment: Laney Mcmillan [facility]el[phone] [place] (10 min) Simple 03/25/2016 Patient [...] DM - managed by Dr. Johnson from [place] 01/26/2016 Patient Education: Patient Medication Summary Completed 01/26/2016 Patient Education: Hypertension Completed 01/26/2016 Appointment: Laney Mcmillan WPtel: [phone] [phone] (30 min) Complex 12/31/2015 Visit Plan: Hypertension [...] controlled. 10/29/2015 Appointment: [phone] (15 min) Moderate 10/29/2015 Patient Education: Patient Medication Summary Completed 10/29/2015 Patient Education: Hypertension Completed 10/29/2015 Appointment: [phone] (15 min) Moderate 09/14/2015 Visit Plan: [...] today, as soon as you get to [place], monday morning, then start taking the lasix [...] handout Begin using muscle rub on back ([place] balm) 05/04/2015 Appointment: [facility]el[phone] [place] (S) New Patient 05/04/2015 Patient Education: Patient Medication Summary Completed 05/04/2015 Patient Education: Hypertension Completed 05/04/2015 Ref[phone] [place] Referral Appointment Requested Instructions Comment . Hypertension - well controlled - continue [...] started on januvia 100mg 1/2 pill daily. give lasix and potassium daily x 5 days then daily prn weight gain 2# . Hypertension - well controlled at the [place]- continue with current medications, continue with no [...] current management-no changes at this time. . Diabetes Mellitus - I have recommended [...] at via isabell espinal . Hypertension - not yet optimally controlled [...] glucose control. 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 Hypertension - [...] at home. DM - managed by Dr. Jonhson from [place] . Diabetes Mellitus - Uncontrolled - per [...] of blood sugars to next appt -notify lineman of elevated readings and watch diet closely [...] and come in here or go to [facility] or [facility] to get this set of [...] and come in here or go to [facility] or [facility] to get this set of [...] handout Begin using muscle rub on back ([place] balm) Begin taking Lasix again No blood [...] handout Begin using muscle rub on back ([place] balm) . Diabetes Mellitus - improved control- [...]
[2018-12-26 07:39] LABS: CARBON DIOXIDE 24 MMOL/L (21-32); CHLORIDE 111 MMOL/L (98-107); CREATININE SERUM 1.39 MG/DL (0.60-1.30); POTASSIUM 4.2 MMOL/L (3.6-5.0); SODIUM 141 MMOL/L (135-145)
--- OUTSIDE RECORDS SUMMARY | 2018-12-26 07:39 | XMS REPORT | CCD ---
Author Author [facility] Organization [facility] Address [address] [place] [address] Phone Care Team Providers Care Fuel Quality Tech Name Role Phone PP Unavailable CCM Unavailable Summary Purpose Interface Exchange Insurance Providers Payer name Policy type / Coverage type Covered libertarian ID Effective Begin Date Effective End Date WPS Medicare Part B Medicare Part B [id number] Unknown Unknown [employer] Medicare Part B [id number] Unknown Unknown Family history Mother Diagnosis Age [...] Unknown 2 05/04/[address]: 478421951 Never smoker 05/04/2015 Alcohol history Unknown occasionally [...] 300 unit/mL (1.5 mL) subcutaneous pen RxNorm: 8041670 20 Unit(s) SQ QHS MANAGED BY DR. JOHNSON 2017 No Stop Date Active Voltaren 1 % topical gel RxNorm: 069769 APPLY THIN LAYER TOPICALLY TO AFFECTED AREA 4 TIMES DAILY 08/24/2018 No Stop Date Active Levaquin 250 mg tablet RxNorm: 919178 2 tabs on 1st day then 1 tab day 2-7 Tablet( s) PO daily 08/20/2018 09/03/2018 Inactive dc keflex Levaquin 250 mg tablet RxNorm: 707160 2 tabs on 1st day then 1 tab day 2-7 Tablet( s) PO daily 08/20/2018 08/19/2018 Inactive dc keflex Keflex 500 mg capsule RxNorm: 489351 1 Capsule(s) PO TID 201708/19/2018 Inactive Toujeo SoloStar U-300 Insulin 300 unit/mL (1.5 mL) subcutaneous pen RxNorm: 7451745 25 Unit(s) SQ QHS MANAGED BY DR. JOHNSON 201709/03/2018 Inactive Norvasc 10 mg tablet RxNorm: 070112 1 Tablet(s) PO daily 201701/25/2019 Active update RX Eliquis 2.5 mg tablet RxNorm: 5977280 Tablet(s) PO TAKE ONE TABLET BY MOUTH TWICE DAILY 06/21/2018 06/15/2019 Active cyclobenzaprine 5 mg tablet RxNorm: 716870 1/2 Tablet(s) PO BID as needed muscle spasms/back pain 05/02/2018 05/31/2018 Inactive tramadol 50 mg tablet RxNorm: 672281 1 Tablet(s) PO TID as needed for pain 04/27/2018 05/01/2018 Inactive Voltaren 1 % topical gel RxNorm: 509444 1 Application TOP QID 04/27/2018 08/23/2018 Inactive acyclovir 400 mg tablet RxNorm: 858261 2 Tablet(s) PO QID 04/2006/20/2018 Inactive mupirocin 2 % topical ointment RxNorm: 550299 1 Application TOP BID 04/20/2018 04/29/2018 Inactive right cheek/nose gentamicin 0.3 % eye drops RxNorm: 161087 2 Drop(s) ophthalmic (eye) left eye Q8 04/16/2018 09/03/2018 Inactive prednisone 20 mg tablet RxNorm: 693601 2 Tablet(s) PO daily 04/12/2018 Inactive prednisone 20 mg tablet RxNorm: 708906 2 Tablet(s) PO daily 04/17/2018 Inactive Kenalog 40 mg/mL suspension for injection RxNorm: 8243801 1 Milliliter(s) Inj 04/12/2018 04/12/2018 Inactive losartan 100 mg tablet RxNorm: 970176 1 Tablet(s) PO QAM 201712/28/2018 Active update RX -dose should be 100mg Norvasc 5 mg tablet RxNorm: 236264 1 Tablet(s) PO daily 201707/29/2018 Inactive update RX losartan 50 mg tablet RxNorm: 953642 TAKE ONE TABLET BY MOUTH ONCE DAILY IN THE MORNING 03/26/2018 04/02/2018 Inactive Humalog U-100 Insulin 100 unit/mL subcutaneous solution RxNorm: 778643 15 Unit(s) SQ AC MANAGED BY DR. JOHNSON 03/13/2018 No Stop Date Active 201- 200 17 units, greater than 300 21 units Tourutho SoloStar U-300 Insulin 300 unit/mL (1.5 mL) subcutaneous pen RxNorm: 7094834 20 Unit(s) SQ QHS MANAGED BY DR. JOHNSON 201707/10/2018 Inactive losartan 100 mg tablet RxNorm: 157843 1 Tablet(s) PO QAM 201704/02/2018 Inactive pantoprazole 40 mg tablet,delayed release RxNorm: 953919 1 Tablet(s) PO daily 01/11/2018 07/19/2018 Inactive carvedilol 12.5 mg tablet RxNorm: 094088 1 Tablet(s) PO BID 07/19/2018 Inactive Toujeo SoloStar U-300 Insulin 300 unit/mL (1.5 mL) subcutaneous pen RxNorm: 5100556 15 Unit(s) SQ QHS MANAGED BY DR. JOHNSON 201703/12/2018 Inactive Multaq 400 mg tablet RxNorm: 111066 1 Tablet(s) PO BID 201712/14/2018 Active potassium chloride ER 10 mEq tablet,extended release RxNorm: 398733 1 Tablet(s) PO daily while on the Lasix 10/18/201701/2018 Inactive losartan 50 mg tablet RxNorm: 687403 1 Tablet(s) PO QAM 201601/17/2018 Inactive Lasix 20 mg tablet RxNorm: 449844 1 Tablet(s) PO daily 201610/03/2017 Inactive potassium chloride ER 10 mEq tablet,extended release RxNorm: 838358 1 Tablet(s) PO daily while on the Lasix 08/30/2017 Inactive Toujeo SoloStar 300 unit/mL (1.5 mL) subcutaneous insulin pen RxNorm: 0054562 35 Unit(s) SQ QHS MANAGED BY DR. JOHNSON 06/15/2017 10/12/2017 Inactive Eliquis 5 mg tablet RxNorm: 7997747 TAKE ONE TABLET BY MOUTH TWICE DAILY 03/01/2017 02/23/2018 Inactive Januvia 100 mg tablet RxNorm: 690770 1/2 Tablet(s) PO daily 07/19/2018 Inactive losartan 50 mg tablet RxNorm: 375739 1 Tablet(s) PO BID 201509/13/2017 Inactive amlodipine 10 mg tablet RxNorm: 608221 1 Tablet(s) PO daily 06/14/2017 Inactive generic for NORVASC losartan 50 mg tablet RxNorm: 022971 1 Tablet(s) PO daily 201508/31/2016 Inactive Toujeo SoloStar 300 unit/mL (1.5 mL) subcutaneous insulin pen RxNorm: 8668714 40 Unit(s) SQ QHS MANAGED BY DR. JOHNSON 07/01/2016 06/14/2017 Inactive Toujeo SoloStar 300 unit/mL (1.5 mL) subcutaneous insulin pen RxNorm: 8509717 35 Unit(s) SQ QHS MANAGED BY DR. JOHNSON 06/02/2016 06/30/2016 Inactive Humalog 100 unit/mL subcutaneous solution RxNorm: 132044 15 Unit(s) SQ AC MANAGED BY DR. JOHNSON 06/02/2016 03/12/2018 Inactive carvedilol 3.125 mg tablet RxNorm: 384328 1 Tablet(s) PO BID 04/23/2016 Inactive simvastatin 40 mg tablet RxNorm: 272910 1 Tablet(s) PO QHS 07/19/2018 Inactive Humalog 100 unit/mL subcutaneous solution RxNorm: 546852 13 Unit(s) SQ AC MANAGED BY DR. JOHNSON 01/26/2016 06/01/2016 Inactive Eliquis 5 mg tablet RxNorm: 6391794 1 Tablet(s) PO BID 201501/13/2017 Inactive carvedilol 6.25 mg tablet RxNorm: 568844 1 Tablet(s) PO BID 2016 Inactive Humalog 100 unit/mL subcutaneous solution RxNorm: 980031 Unit(s) SQ UD as directed by office 08/07/2015 01/25/2016 Inactive Klor-Con 10 mEq tablet,extended release RxNorm: 410375 1 Tablet(s) PO daily as needed 06/26/2015 10/23/2015 Inactive Lasix 20 mg tablet RxNorm: 591464 1 Tablet(s) PO daily as needed 06/26/2015 10/23/2015 Inactive metoprolol succinate ER 50 mg tablet,extended release 24 hr RxNorm: 776524 1 Tablet(s) PO daily No Start Date Active aspirin 81 mg capsule,delayed release RxNorm: 468127 1 Capsule(s) PO daily No Start Date Active Novolog U-100 Insulin aspart 100 unit/mL subcutaneous solution RxNorm: 406979 SSI 80-150 10u 151-200 15u 201-300 17u over 300 21u Unit(s) SQ AC & HS as needed No Start Date Active Co Q-10 50 mg capsule RxNorm: 100201 1 Capsule(s) PO daily No Start Date Active Lasix 20 mg tablet RxNorm: 1 Tablet(s) PO daily as needed edema No Start Date Active Culturelle Probiotics 10 billion cell-200 mg capsule RxNorm: 1 Capsule(s) PO TID No Start Date Active losartan 25 mg tablet RxNorm: 503084 1 Tablet(s) PO daily No Start Date 08/31/2016 Inactive losartan 100 mg tablet RxNorm: 209146 1 Tablet(s) PO daily No Start Date 06/30/2016 Inactive gentamicin 0.3 % eye drops RxNorm: 077032 2 Drop(s) ophthalmic (eye) left eye Q8 No Start Date 04/15/2018 Inactive fluticasone 50 mcg/actuation nasal spray,suspension RxNorm: 115628 2 [place] NASAL daily No Start Date 09/03/2018 Inactive Multaq 400 mg tablet RxNorm: 381056 1 Tablet(s) PO BID No Start Date 12/19/2017 Inactive Klor-Con 10 mEq tablet,extended release RxNorm: 397559 1 Tablet(s) PO daily as needed No Start Date 06/25/2015 Inactive simvastatin 40 mg tablet RxNorm: 475074 1 Tablet(s) PO daily No Start Date 02/04/2016 Inactive carvedilol 6.25 mg tablet RxNorm: 766331 1 Tablet(s) PO BID No Start Date 11/30/2015 Inactive cetirizine 10 mg tablet RxNorm: 2914637 1 Tablet(s) PO daily No Start Date 09/03/2018 Inactive Eliquis 5 mg tablet RxNorm: 9003246 1 Tablet(s) PO BID No Start Date 01/19/2016 Inactive Toujeo SoloStar 300 unit/mL (1.5 mL) subcutaneous insulin pen RxNorm: 2827133 33 Unit(s) SQ QHS MANAGED BY DR. JOHNSON No Start Date 06/01/2016 Inactive Lasix 20 mg tablet RxNorm: 1 Tablet(s) PO daily as needed No Start Date 06/25/2015 Inactive atorvastatin 40 mg tablet RxNorm: 810956 1 Tablet(s) PO daily No Start Date 09/03/2018 Inactive Humalog 100 unit/mL subcutaneous solution RxNorm: 683227 10 Unit(s) SQ TID No Start Date 08/06/2015 Inactive amlodipine 5 mg tablet RxNorm: 130246 1 Tablet(s) PO daily No Start Date 08/31/2016 Inactive Norvasc 2.5 mg tablet RxNorm: 204779 1 Tablet(s) PO daily No Start Date 04/02/2018 Inactive Medication Administered Medication Codes Instructions Start Date Status Kenalog 40 mg/mL suspension for injection RxNorm: 8608319 1Milliliter 04/12/2018 No longer Active Immunizations Vaccine [...] 31.2 pg 05/25/2017 Cbc With Differential Ord2 Peach% 8.9 % 05/25/2017 Cbc With Differential Ord2 [...] 3.78 K/ul 05/25/2017 Cbc With Differential Ord2 Peach ABS# 0.7 K/ul 05/25/2017 Cbc With Differential Ord2 Eos ABS# 0.8 K/ul 05/25/2017 Cbc With Differential Ord2 Baso ABS# 0.3 K/ul 05/25/2017 Manual Differential Ord52 D-Neutr 50 % 05/25/2017 Manual Differential Ord52 D-Lymph 38 % 05/25/2017 Manual Differential Ord52 D-Eos 10 % 05/25/2017 Manual Differential Ord52 D-1 2 NRBC 05/25/2017 Comp Metabolic Mnf267 NA 140 mEq/L 05/25/2017 Comp Metabolic Bzq509 K 4.0 mEq/L 05/25/2017 Comp Metabolic Xwx270 CL 107 mEq/L 05/25/2017 Comp Metabolic Ifs328 CO2 22.0 mEq/L 05/25/2017 Comp Metabolic Xge571 ANION GAP 15 05/25/2017 Comp Metabolic Hyd356 GLUCOSE 97 mg/dL 05/25/2017 Comp Metabolic Kvk550 Creat 0.9 mg/dL 05/25/2017 Comp Metabolic Nws421 eGFR 61 ml/min/1.73m2 05/25/2017 Comp Metabolic Byk270 BUN 16 mg/dL 05/25/2017 Comp Metabolic Ygc533 B/C Ratio 17.4 Ratio 05/25/2017 Comp Metabolic Mfn990 CALCIUM 9.1 mg/dL 05/25/2017 Comp Metabolic Xni216 ALK PHOS 109 U/L 05/25/2017 Comp Metabolic Jen551 AST(SGOT) 19 U/L 05/25/2017 Comp Metabolic Ayg317 ALT(SGPT) 17 U/L 05/25/2017 Comp Metabolic Vtt484 BILI T 0.4 mg/dL 05/25/2017 Comp Metabolic Ifj978 ALBUMIN 3.3 g/dL 05/25/2017 Comp Metabolic Aoc469 TPRO 6.0 g/dL 05/25/2017 Comp Metabolic Yjj169 GLOB 2.7 g/dL 05/25/2017 Comp Metabolic Kfn331 A/G Ratio 1.2 Ratio 05/25/2017 Comp Metabolic Rmm232 Osmo 281 mOsmo 05/25/2017 Lipid Ord30 CHOL 204 mg/dL 05/25/2017 Lipid Ord30 HDL 49.0 mg/dl 05/25/2017 Lipid Ord30 TRIG 117 mg/dL 05/25/2017 Lipid Ord30 LDL 132 mg/dL 05/25/2017 Lipid Ord30 C/HDL 4.2 Ratio 05/25/2017 %Hba1C Vvu075 % HbA1c 31508-2 10.5 % 05/25/2017 %Hba1C Hwn445 Gluc Ave 255 mg/dL 05/25/2017 Microalbumin Nfg340 MicroAlb 95.0 mg/dL 05/25/2017 Review of Systems [...] Procedures Procedure Codes Date DRAIN/INJECT JOINT/BURSA CPT-4: 52148 04/12/2018 TRIAMCINOLONE ACET INJ NOS CPT-4: J3301 04/12/2018 PPPS, SUBSEQ VISIT CPT -4: G0439 02/22/2018 ADMIN INFLUENZA VIRUS VAC CPT-4: G0008 06/02/2016 FLU VACC PRSV FREE INC ANTIG CPT-4: 43734 06/02/2016 Vital Signs Date Vital 09/04/2018 Blood Pressure 1: 152/60 Code : 8480-6 BMI: 27.1 Code : 98299-9 Heart Rate 1 : 56 bpm Height: 4'8" SpO2: 96% Weight: 121 lbs 08/17/2018 Blood Pressure 1: 140/66 Code : 8480-6 BMI: 25.3 Code : 94437-6 Heart Rate 1 : 66 bpm Height: 4'8" SpO2: 97% Weight: 113 lbs 08/08/2018 Blood Pressure 1: 174/70 Code : 8480-6 BMI: 25.3 Code : 66757-6 Heart Rate 1 : 60 bpm Height: 4'8" SpO2: 97% Weight: 113 lbs 07/17/2018 Blood Pressure 1: 148/62 Code : 8480-6 BMI: 24.9 Code : 61959-8 Heart Rate 1 : 65 bpm Height: 4'8" SpO2: 97% Weight: 111 lbs 06/26/2018 Blood Pressure 1: 118/72 Code : 8480-6 BMI: 25.1 Code : 33261-8 Heart Rate 1 : 58 bpm Height: 4'8" SpO2: 97% Weight: 112 lbs 06/21/2018 Blood Pressure 1: 120/72 Code : 8480-6 BMI: 25.1 Code : 65059-9 Heart Rate 1 : 56 bpm Height: 4'8" SpO2: 96% Weight: 112 lbs 05/02/2018 Blood Pressure 1: 178/76 Code : 8480-6 BMI: 24.7 Code : 28727-2 Heart Rate 1 : 72 bpm Height: 4'8" SpO2: 98% Weight: 110 lbs 04/27/2018 Blood Pressure 1: 164/78 Code : 8480-6 BMI: 24.7 Code : 62718-7 Heart Rate 1 : 69 bpm Height: 4'8" SpO2: 97% Weight: 110 lbs 04/20/2018 Blood Pressure 1: 140/80 Code : 8480-6 BMI: 24.7 Code : 84020-5 Heart Rate 1 : 83 bpm Height: 4'8" SpO2: 97% Weight: 110 lbs 04/12/2018 Blood Pressure 1: 146/78 Code : 8480-6 Heart Rate 1: 68 bpm Height: SpO2: 98% Weight: 04/10/2018 Blood Pressure 1: 146/60 Code : 8480-6 BMI: 24.7 Code : 32384-8 Heart Rate 1 : 60 bpm Height: 4'8" SpO2: 95% Weight: 110 lbs 04/03/2018 Blood Pressure 1: 204/80 Code : 8480-6 BMI: 24.9 Code : 97778-9 Heart Rate 1 : 62 bpm Height: 4'8" SpO2: 98% Weight: 111 lbs 03/13/2018 Blood Pressure 1: 140/68 Code : 8480-6 BMI: 25.6 Code : 56822-9 Heart Rate 1 : 68 bpm Height: 4'8" SpO2: 95% Weight: 114 lbs 02/22/2018 Blood Pressure 1: 166/88 Code : 8480-6 BMI: 24.7 Code : 00348-0 Heart Rate 1 : 72 bpm Height: 4'8" SpO2: 95% Weight: 110 lbs 02/01/2018 Blood Pressure 1: 162/70 Code : 8480-6 BMI: 23.2 Code : 57708-8 Heart Rate 1 : 64 bpm Height: 4'11" SpO2: 95% Weight: 115 lbs 01/18/2018 Blood Pressure 1: 192/86 Code : 8480-6 BMI: 22.6 Code : 82037-1 Heart Rate 1 : 68 bpm Height: 4'11" SpO2: 94% Weight: 112 lbs 12/21/2017 Blood Pressure 1: 110/52 Code : 8480-6 BMI: 23.0 Code : 26973-2 Heart Rate 1 : 58 bpm Height: 4'11" SpO2: 94% Weight: 114 lbs 10/10/2017 Blood Pressure 1: 168/78 Code : 8480-6 BMI: 23.0 Code : 10376-0 Heart Rate 1 : 54 bpm Height: 4'11" SpO2: 98% Weight: 114 lbs 09/07/2017 Blood Pressure 1: 142/72 Code : 8480-6 Heart Rate 1: 84 bpm Height: 4'11" SpO2: 97% Weight: 08/30/2017 Blood Pressure 1: 188/82 Code : 8480-6 BMI: 24.4 Code : 62539-9 Heart Rate 1 : 79 bpm Height: 4'11" SpO2: 88% Temperature: 38.5 (C) / 101.3 (F) Weight: 121 lbs 08/15/2017 Blood Pressure 1: 166/78 Code : 8480-6 BMI: 22.8 Code : 81358-5 Heart Rate 1 : 71 bpm Height: 4'11" SpO2: 96% Weight: 113 lbs 06/15/2017 Blood Pressure 1: 138/68 Code : 8480-6 BMI: 22.8 Code : 30097-6 Heart Rate 1 : 54 bpm Height: 4'11" SpO2: 98% Weight: 113 lbs 05/29/2017 Blood Pressure 1: 96/46 Code : 8480-6 Blood Pressure 2: 116/57 Code: 8480-6 Heart Rate 1: 54 bpm 05/11/2017 Blood Pressure 1: 144/60 Code : 8480-6 BMI: 23.8 Code : 76475-5 Heart Rate 1 : 68 bpm Height: 4'11" SpO2: 97% Weight: 118 lbs 01/05/2017 Blood Pressure 1: 134/72 Code : 8480-6 BMI: 24.8 Code : 45861-2 Heart Rate 1 : 64 bpm Height: 4'11" SpO2: 94% Weight: 123 lbs 09/20/2016 Blood Pressure 1: 148/66 Code : 8480-6 BMI: 25.4 Code : 54246-1 Heart Rate 1 : 68 bpm Height: 4'11" SpO2: 97% Weight: 126 lbs 09/01/2016 Blood Pressure 1: 162/80 Code : 8480-6 BMI: 26.1 Code : 45504-5 Heart Rate 1 : 75 bpm Height: 4'11" SpO2: 95% Weight: 129 lbs 06/02/2016 Blood Pressure 1: 144/82 Code : 8480-6 BMI: 25.4 Code : 19720-3 Heart Rate 1 : 68 bpm Height: 4'11" SpO2: 98% Weight: 126 lbs 03/25/2016 Blood Pressure 1: 140/58 Code : 8480-6 BMI: 25.9 Code : 60563-6 Heart Rate 1 : 58 bpm Height: 4'11" SpO2: 95% Weight: 128 lbs 01/26/2016 Blood Pressure 1: 138/68 Code : 8480-6 BMI: 26.3 Code : 39798-2 Heart Rate 1 : 66 bpm Height: 4'11" SpO2: 96% Weight: 130 lbs 10/29/2015 Blood Pressure 1: 180/78 Code : 8480-6 BMI: 25.7 Code : 32727-1 Heart Rate 1 : 74 bpm Height: 4'11" SpO2: 97% Weight: 127 lbs 07/21/2015 Blood Pressure 1: 136/70 Code : 8480-6 BMI: 25.9 Code : 71080-8 Heart Rate 1 : 63 bpm Height: 4'11" SpO2: 95% Weight: 128 lbs 07/08/2015 Blood Pressure 1: 140/70 Code : 8480-6 BMI: 26.5 Code : 23458-2 Heart Rate 1 : 59 bpm Height: 4'11" SpO2: 94% Weight: 131 lbs 5 oz 05/04/2015 Blood Pressure 1: 140/60 Code : 8480-6 BMI: 25.7 Code : 39372-7 Heart Rate 1 : 60 bpm Height: [...] Encounters Encounter Performer Location Codes Date ( 00050 EST. PATIENT, LEVEL IV Diagnosis: Essential (primary) hypertension[ICD10: I10] Diagnosis: Localized edema[ICD10: R60.0] Diagnosis: Type 2 diabetes mellitus with hyperglycemia[ICD10: E11.65] Laney Sow MD, [facility] CPT-4: 30071 09/04/2018 47249 EST. PATIENT, LEVEL III Diagnosis: Essential (primary) hypertension[ICD10: I10] Diagnosis: Type 2 diabetes mellitus without complications[ICD10: E11.9] Diagnosis: Myalgia, other site[ICD10: M79.18] Elizabeth Sow MD, [facility] CPT-4: 14520 08/17/2018 [id number]) 79613 EST. PATIENT, LEVEL IV Diagnosis: Essential (primary) hypertension[ICD10: I10] Diagnosis: Type 2 diabetes mellitus without complications[ICD10: E11.9] Kate Sow MD, [facility] CPT-4: 23566 08/08/2018 67197 EST. PATIENT, LEVEL III Diagnosis: Type 2 diabetes mellitus with hyperglycemia[ICD10: E11.65] Elizabeth Sow MD, [facility] CPT-4: 67887 07/17/2018 54787 EST. PATIENT, LEVEL III Diagnosis: Type 2 diabetes mellitus with hyperglycemia[ICD10: E11.65] Diagnosis: Weakness[ICD10: R53.1] Diagnosis: Unsteadiness on feet[ICD10: R26.81] Elizabeth Sow MD, [facility] CPT-4: 73345 06/26/2018 ([id number]) 36189 EST. PATIENT, LEVEL IV Diagnosis: Type 2 diabetes mellitus with hyperglycemia[ICD10: E11.65] Diagnosis: Essential (primary) hypertension[ICD10: I10] Diagnosis: Muscle weakness (generalized)[ICD10: M62.81] Diagnosis: Localized edema[ICD10: R60.0] Kate Sow MD, [facility] CPT- 4: 63957 06/21/2018 ([id number]) 35040 EST. 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 PATIENT, LEVEL III Diagnosis: Low back pain[ICD10: M54.5] Elizabeth Sow MD, [facility] CPT-4 : 55589 04/27/2018 ([id number]) 42183 EST. PATIENT, LEVEL IV Diagnosis: Diplopia[ICD10: H53.2] Diagnosis: Rash and other nonspecific skin eruption[ICD10: R21] Diagnosis: Type 2 diabetes mellitus with hyperglycemia[ICD10: E11.65] Laney Sow MD, [facility] CPT-4: 95062 04/20/2018 ([id number]) 27579 EST. PATIENT, LEVEL III Diagnosis: Low back pain[ICD10: M54.5] Elizabeth Sow MD, [facility] CPT-4 : 20590 04/12/2018 ([id number]) 06661 EST. PATIENT, LEVEL III Diagnosis: Essential (primary) hypertension[ICD10: I10] Diagnosis: Type 2 diabetes mellitus with hyperglycemia[ICD10: E11.65] Kate Sow MD , [facility] CPT-4: 80023 04/10/2018 ([id number]) 40480 EST. PATIENT, LEVEL III Diagnosis: Lumbago with sciatica, left side[ICD10: M54.42] Diagnosis: Essential (primary) hypertension[ICD10: I10] Laney Sow MD, [facility] CPT-4: 93286 04/03/2018 ([id number]) 20898 EST. PATIENT, LEVEL IV Diagnosis: Type 2 diabetes mellitus with hyperglycemia[ICD10: E11.65] Diagnosis: Essential (primary) hypertension[ICD10: I10] Kate Sow MD, [facility] CPT-4: 35166 03/13/2018 ([id number]) 94570 EST. PATIENT, LEVEL IV Diagnosis: Essential (primary) hypertension[ICD10: I10] Diagnosis: Type 2 diabetes mellitus with hyperglycemia[ICD10: E11.65] Kate Sow MD , [facility] CPT-4: 16473 02/01/2018 ([id number]) 77162 EST. PATIENT, LEVEL IV Diagnosis: Type 2 diabetes mellitus with hyperglycemia[ICD10: E11.65] Diagnosis: Essential (primary) hypertension[ICD10: I10] Kate Sow MD, [facility] CPT-4: 46334 01/18/2018 ([id number]) Miscellaneous no charge Diagnosis: Type 2 diabetes mellitus with hyperglycemia[ICD10: E11.65] Elizabeth Sow MD, [facility] CPT-4: 54740 12/22/2017 ([id number]) 31584 EST. PATIENT, LEVEL IV Diagnosis: Type 2 diabetes mellitus with hyperglycemia[ICD10: E11.65] Diagnosis: Essential (primary) hypertension[ICD10: I10] Diagnosis: Muscle weakness (generalized)[ICD10: M62.81] Kate Sow MD, [facility] CPT-4: 54764 12/21/2017 29487 EST. PATIENT, LEVEL IV Diagnosis: Type 2 diabetes mellitus without complications[ICD10: E11.9] Diagnosis: Mixed hyperlipidemia[ICD10: E78.2] Diagnosis: Essential (primary) hypertension[ICD10: I10] Elizabeth Sow MD, [facility] CPT-4: 91366 10/10/2017 10072 EST. PATIENT, LEVEL III Diagnosis: Weakness[ICD10: R53.1] Diagnosis: Essential (primary) hypertension[ICD10: I10] Elizabeth Sow MD, [facility] CPT-4: 79041 09/07/2017 23096 EST. PATIENT, LEVEL III Diagnosis: Encounter for follow-up examination after completed treatment for conditions other than malignant neoplasm[ICD10: Z09] Diagnosis: Weakness[ICD10: R53.1] Diagnosis: Essential (primary) hypertension[ICD10: I10] Diagnosis: Dyspnea, unspecified[ICD10: R06.00] Diagnosis: Unsteadiness on feet[ICD10: R26.81] Elizabeth Sow MD, [facility] CPT-4: 08599 08/30/2017 ([id number]) 59585 EST. PATIENT, LEVEL IV Diagnosis: Type 2 diabetes mellitus without complications[ICD10: E11.9] Diagnosis: Essential (primary) hypertension[ICD10: I10] Kate Sow MD, [facility] CPT-4: 17513 08/15/2017 ([id number]) 58451 EST. PATIENT, LEVEL IV Diagnosis: Type 2 diabetes mellitus without complications[ICD10: E11.9] Diagnosis: Essential (primary) hypertension[ICD10: I10] Diagnosis: Unsteadiness on feet[ICD10: R26.81] Kate Sow MD [facility] CPT-4: 51946 06/15/2017 ([id number]) Miscellaneous no charge Diagnosis: Essential (primary) hypertension[ICD10: I10] Laney Sow MD [facility] CPT-4: 48986 05/29/2017 ([id number]) 88978 EST. PATIENT, LEVEL IV Diagnosis: Type 2 diabetes mellitus without complications[ICD10: E11.9] Diagnosis: Essential (primary) hypertension[ICD10: I10] Diagnosis: Mixed hyperlipidemia[ICD10: E78.2] Kate Sow MD [facility] CPT-4: 94817 05/11/2017 ([id number]) 95637 EST. PATIENT, LEVEL IV Diagnosis: Type 2 diabetes mellitus without complications[ICD10: E11.9] Diagnosis: Essential (primary) hypertension[ICD10: I10] Kate Sow MD [facility] CPT-4: 80979 01/05/2017 ([id number]) 55049 EST. PATIENT, LEVEL III Diagnosis: Essential (primary) hypertension[ICD10: I10] Kate Sow MD [facility] CPT-4: 32031 09/20/2016 ([id number]) 19782 EST. PATIENT, LEVEL III Diagnosis: Essential (primary) hypertension[ICD10: I10] Laney Sow MD [facility] CPT-4: 74263 09/01/2016 ([id number]) Miscellaneous no charge Diagnosis: Impacted cerumen, right ear[ICD10: H61.21] Elizabeth Sow MD [facility] CPT-4: 08950 06/08/2016 ([id number]) 03021 EST. PATIENT, LEVEL IV Diagnosis: Type 2 diabetes mellitus without complications[ICD10: E11.9] Diagnosis: Essential (primary) hypertension[ICD10: I10] Diagnosis: Encounter for immunization[ICD10: Z23] Kate Sow MD, [facility] CPT-4: 54202 06/02/2016 82579 EST. PATIENT, LEVEL III Diagnosis: Essential (primary) hypertension[ICD10: I10] Diagnosis: Other specified cardiac arrhythmias[ICD10: I49.8] Elizabeth Sow MD [facility] CPT-4: 23452 03/25/2016 ([id number]) 11289 EST. PATIENT, LEVEL IV Diagnosis: Type 2 diabetes mellitus without complications[ICD10: E11.9] Diagnosis: Essential (primary) hypertension[ICD10: I10] Kate Sow MD [facility] CPT-4: 95099 01/26/2016 ([id number]) 92549 EST. PATIENT, LEVEL IV Diagnosis: Essential (primary) hypertension[ICD10: I10] Diagnosis: Type 2 diabetes mellitus without complications[ICD10: E11.9] Kate Sow MD [facility] CPT-4: 06051 10/29/2015 ([id number]) 18218 EST. PATIENT, LEVEL IV Diagnosis: Essential (primary) hypertension[ICD10: I10] Diagnosis: Dyspnea, unspecified[ICD10: R06.00] Kate Sow MD [facility] CPT-4: 50409 07/21/2015 ([id number]) 61419 EST. PATIENT, LEVEL III Diagnosis: Edema, unspecified[ICD10: R60.9] Kate Sow MD [facility] CPT-4: 04340 07/08/2015 ([id number]) OFFICE VISIT, NEW - LEVEL 4 Diagnosis: ESSENTIAL HYPERTENSION[ICD9: 401.9] Diagnosis: DIABETES TYPE II[ICD9: 250.00] Kate Sow MD [facility] CPT- 4: 97983 05/04/2015 Plan of Care Planned Activity Notes Codes Status Date Visit Plan: Hypertension - well controlled at the NM- continue with current medications, continue with no [...] current management-no changes at this time. 09/04/2018 Patient Education: Patient Medication Summary Completed 09/04/2018 Patient Education: Diabetes Completed 09/04/2018 Appointment: Laney Mcmillan WPtel: [phone] [phone] (15 min) Moderate 08/28/2018 Visit Plan: Hypertension [...] concerns. 08/17/2018 [phone] [facility] [place] (15 min) Moderate 08/17/2018 Patient [...] to call for acute concerns. 08/08/2018 [phone] [facility] 30 min appointments only in this slot 08/08/2018 Patient Education: Patient Medication Summary Completed 08/08/2018 Patient Education: Diabetes Completed 08/08/2018 Appointment: Casselberry Kate WPtel: [phone] [phone] (15 min) Moderate 08/07/2018 Visit Plan: [...] control. 07/17/2018 App[facility]ment: [facility] [phone] [facility] (15 min) Moderate 07/17/2018 Patient Education: [...] glucose control. 06/26/2018 App[facility]ment: [facility] [phone] [facility] (15 min) Moderate 06/26/2018 Patient Education: Patient Medication Summary Completed 06/26/2018 Patient Education: Diabetes Completed 06/26/2018 Visit Plan: Diabetes improved control while at the [facility] - discussed with patient and her daughte [...] Assisted Living. 06/21/2018 [phone] (15 min) Moderate 06/21/2018 Patient Education: Patient Medication Summary Completed 06/21/2018 Patient Education: Diabetes Completed 06/21/2018 Appointment: [phone] [facility] (15 min) Moderate 05/09/2018 Visit Plan: [...] sleep better. 05/02/2018 Appointment: Kate Sow WPtel: [phone] [facility] (15 min) Moderate 05/02/2018 Patient Education: Patient Medication Summary Completed 05/02/2018 Care Plan: X-RAY EXAM L-S SPINE 10/21 VWS LOINC : 75433-9 Pending 05/02/2018 Visit Plan: Low back pain- the patient was instructed in appropriate posture - The pt is to use prn antiinflammatories to manage acute pain. The patient is to call the office if the pain is worsening or does not improve. 04/27/2018 Appointment: [phone] (15 min) Moderate 04/27/2018 Patient Education: Patient Medication Summary Completed 04/27/2018 Visit Plan: Double vision-suspect due to elevated blood sugars -recommend patient bring in log of blood sugars to next appt -notify patient care associate of elevated readings and watch diet closely -also recommend f/u with eye doctor Rash-suspect shingles-rx for acyclovir provided and instructed on use 04/20/2018 Appointment: [phone] [place] (15 min) Moderate 04/20/2018 Patient [...] worsen. 04/12/2018 Appointment: Elizabeth Milner WPtel: [phone] [facility] (15 min) Moderate 04/12/2018 Patient [...] controlled. 04/10/2018 Appointment: Kate Sow WPtel: [phone] [facility] (15 min) Moderate 04/10/2018 Patient Education: [...] concerns. 04/03/2018 Appointment: Laney Mcmillan WPtel: [phone] [phone] [place] (15 min) Moderate 04/03/2018 Patient [...] 03/13/2018 Appointment: [facility]el[phone] [facility] [place] (15 min) Moderate 03/13/2018 Patient [...] diabetic diet. 02/01/2018 Appointment: Kate Sow WPtel: [facility]5 [facility] (15 min) Moderate 02/01/2018 Patient Education: [...] 100mg daily. 01/18/2018 Appointment: Kate Sow WPtel: [facility]5 [facility] (15 min) Moderate 01/18/2018 Patient Education: Patient Medication Summary Completed 01/18/2018 Appointment: Kate Sow WPtel: [facility] (15 min) Moderate 01/11/2018 Appointment: Kate Sow WPtel: [address] [place], [place] [address] (15 min) Moderate 12/25/2017 Visit Plan: Diabetes [...] home. Generalized weakness - physical therapy at [facility] outpt 12/21/2017 Appointment: [facility]ow [facility]Ptel[phone] [facility] [place] (15 min) Moderate 12/21/2017 Patient Education: Patient Medication Summary Completed 12/21/2017 Appointment: [facility]ow [facility]el[facility] [phone] [facility] [place] (15 min) Moderate 12/13/2017 Visit [...] glucose control. 10/10/2017 Appointment: Elizabeth Milner WPtel: [facility]5 [facility] (15 min) Moderate 10/10/2017 Patient Education: [...] home. 09/07/2017 Appointment: [phone] (30 min) Complex 09/07/2017 Patient Education: Patient Medication Summary Completed 09/07/2017 Appointment: [facility]el[phone] [facility] (15 min) Moderate 09/05/2017 Visit Plan: Hospital follow up - Dr. Sow in to see pt - pt was in the hospital with uncontrolled hypertension and a. fib - controlled at this time - persistent weakness requiring ongoing PT and assistance with some ADLs and medication management - will admit pt to longterm facility for ongoing rehabilitation. 08/30/2017 Appointment: Elizabeth Milner WPtel: [phone] [facility] (30 min) Complex 08/30/2017 Patient Education: Patient Medication Summary Completed 08/30/2017 Appointment: Elizabeth Milner WPtel: [phone] [facility] (15 min) Moderate 08/29/2017 Visit [...] at home. 08/15/2017 Appointment: Kate Sow WPtel: [facility]5 [facility] (15 min) Moderate 08/15/2017 Patient Education: Patient Medication Summary Completed 08/15/2017 Care Plan: %Hba1C LOINC : 30203-4 Cancelled 08/15/2017 Referral: Karlee physical therapy WPtel: 1012 [facility] Patient's informed. Completed 06/26/2017 Visit [...] glucose control. Gait Instability - referral to [facility] for gait instability. Hypertension - well controlled - continue with current medications , continue with no added salt diet. Pt has been encouraged to exercise daily. The pt has been advised to call the office if there are any acute concerns about change in blood pressure readings at home. 06/15/2017 Appointment: Kate Sow WPtel: [facility] (15 min) Moderate 06/15/2017 Patient Education: Patient Medication Summary Completed 06/15/2017 Care Plan: Referral Order SNOMED-CT : [id number] Pending 06/15/2017 Appointment: Nurse Visit 05/29/2017 Patient [...] come in here or go [place] [facility] to get this set of labs done. [...] with Statin 05/11/2017 Appointment: [facility]el[facility] [facility] (15 min) Moderate 05/11/2017 Patient Education: [...] 01/05/2017 Appointment: [facility]ow [facility]Ptel[facility] [address] [facility] (15 min) Moderate 01/05/2017 Patient Education: [...] home. 09/20/2016 Appointment: [facility]el[facility] [phone] [facility] (30 min) Complex 09/20/2016 Patient Education: [...] concerns. 09/01/2016 Appointment: Laney Mcmillan WPtel: [phone] [phone] [place] (30 min) Complex 09/01/2016 Patient Education: Patient Medication Summary Completed 09/01/2016 Appointment: Kate Sow WPtel: [phone] [facility] (15 min) Moderate 08/31/2016 Appointment: Nurse [...] controlled. 06/02/2016 Appointment: Kate [facility]ow [facility]Ptel: [phone] [facility] [place] (15 min) Moderate 06/02/2016 Patient Education: Patient Medication Summary Completed 06/02/2016 Patient Education: Hypertension Completed 06/02/2016 Visit Plan: Bradycardia - reports pt has brought in indicates that the pt has been having a pulse in the 40s-50s. Will adjust medications, pt is to notify clinic if her symptoms do not improve, or with any concerns. 03/25/2016 Appointment: Laney Mcmillan WPtel: [phone] [phone] [place] (10 min) Simple 03/25/2016 Patient [...] DM - managed by Dr. Johnson from [facility] 01/26/2016 Patient Education: Patient Medication Summary Completed 01/26/2016 Patient Education: Hypertension Completed 01/26/2016 Appointment: Laney Mcmillan WPtel: [phone] [phone] [place] (30 min) Complex 12/31/2015 Visit Plan: [...] less controlled. 10/29/2015 Appointment: Kate Sow WPtel: [facility]5 [facility] (15 min) Moderate 10/29/2015 Patient Education: Patient Medication Summary Completed 10/29/2015 Patient Education: Hypertension Completed 10/29/2015 Appointment: Kate Sow WPtel: [facility]5 [facility] (15 min) Moderate 09/14/2015 Visit Plan: [...] today, as soon as you get to [place], monday morning, then start taking the lasix [...] handout Begin using muscle rub on back (Ringwood balm) 05/04/2015 Appointment: Kate Sow [facility]el[phone] [facility] [place] (S) New Patient 05/04/2015 Patient Education: Patient Medication Summary Completed 05/04/2015 Patient Education: Hypertension Completed 05/04/2015 [phone] [place] Referral Appointment Requested Instructions Comment see if Dr. Johnson has the toujeo samples for you - if not , go to the pharmacy to cotton picker the toujeo script. if the toujeo [...] glucose control. Gait Instability - referral to [facility] for gait instability. [...] of blood sugars to next appt -notify patient care associate of elevated readings and watch diet closely [...] today, as soon as you get to [place], monday morning, then start taking the lasix [...] today, as soon as you get to [place], monday morning, then start taking the lasix [...] concerns. . Hospital follow up - Dr. oSw in to see pt - pt was in the hospital with uncontrolled hypertension and a. fib - controlled at this time - persistent weakness requiring ongoing PT and assistance with some ADLs and medication management - will admit pt to longterm facility for ongoing rehabilitation. . Bradycardia - reports pt has brought in indicates that the pt has been having a pulse in the 40s-50s. Will adjust medications, pt is to notify clinic if her symptoms do not improve, or with any concerns. give lasix and potassium daily x 5 days then daily prn weight gain 2# . Hypertension - well controlled at the [facility]- continue with current medications, continue with no [...] DM - managed by Dr. Johnson from [place] . Low back pain- the patient was [...] come in here or go to [facility] to get this set of labs done. [...] come in here or go to [facility] to get this set of labs done. [...] handout Begin using muscle rub on back (Ringwood balm) Begin taking Lasix again No blood [...] handout Begin using muscle rub on back (Ringwood balm) . Diabetes Mellitus - improved control- [...]
[2018-12-26 07:40] LABS: ALANINE AMINOTRANSFERASE 55 U/L (0-55); ALBUMIN 3.6 GM/DL (3.2-4.5); ALKALINE PHOSPHATASE 112 U/L (40-136); BILIRUBIN,TOTAL 0.3 MG/DL (0.1-1.0); BUN/CREATININE RATIO 21; GFR ESTIMATED 36; GLUCOSE 93 MG/DL (70-105); MAGNESIUM 2.2 MG/DL (1.8-2.4); TOTAL PROTEIN 6.6 GM/DL (6.4-8.2)
[2018-12-26] MEDS ORDERED: NS IV 500 ML 500 ML IV ONE (07:54)
[2018-12-26 08:14] VITALS: BP 158/62
--- NOTE | 2018-12-26 08:39 | Diagnostic Imaging Report ---
PATIENT HISTORY: Chest pain. TECHNIQUE: Frontal view of the chest. COMPARISON: 08/28/2018. FINDINGS: Lung volumes are mildly large. There are diffuse interstitial opacities which appear increased compared to the prior study. The cardiac silhouette is upper normal in size. There is aortic atherosclerosis. No pneumothorax or pleural effusion is seen. No acute osseous abnormality seen. A cardiac cath lab radiology technologist is noted. IMPRESSION: 1. Diffuse interstitial opacities appear increased compared to the prior exam, may be due to mild interstitial edema. Dictated by: Dictated on workstation # [id number]
--- NOTE | 2018-12-26 09:01 | NUR ---
2ND TROPONIN DRAWN.
--- NOTE | 2018-12-26 09:17 | NUR ---
2ND TROPONIN DRAW HEMOLIZED REDRAWN AND SENT TO LAB
[2018-12-26 10:00] VITALS: BP 141/45
[2018-12-27] MEDS ORDERED: INSU100I23 SQ (11:30)
[2018-12-27] MEDS ORDERED: GLUC1KIT IJ (11:30)
[2018-12-27] MEDS ORDERED: UBID1CAP3 PO (11:30)
[2018-12-28] MEDS ORDERED: HYDR-3922 PO (09:04)
== END 2018-12-26 10:00 | disposition home or self-care (01) ==
LOC: EDUNIT# 06:49 → ER 06:51
DX: R07.9 Chest pain, unspecified (principal); I48.91 Unspecified atrial fibrillation; I25.2 Old myocardial infarction; I10 Essential (primary) hypertension; E11.51 Type 2 diabetes mellitus with diabetic peripheral angiopathy without gangrene; I73.9 Peripheral vascular disease, unspecified; Z82.49 Family history of ischemic heart disease and other diseases of the circulatory system; Z87.440 Personal history of urinary (tract) infections; Z86.73 Personal history of transient ischemic attack (TIA), and cerebral infarction without residual deficits; Z79.01 Long term (current) use of anticoagulants; Z79.82 Long term (current) use of aspirin; Z79.4 Long term (current) use of insulin; Z95.5 Presence of coronary angioplasty implant and graft
CPT/HCPCS: 36415; 71045; 80053; 83735; 83874; 84484; 85025; 85610; 85730; 93005; 93041

== ENCOUNTER 2018-12-26 19:00 | Observation (INO) | payer MEDICARE, OTHER ==
[~2018-12-26] VITALS: Ht 144.8 cm; Wt 59.1 kg
--- NOTE | 2018-12-26 19:33 | ED General ---
General Chief Complaint: General Problems/Pain Stated Complaint: HIGH BLOOD SUGAR,DIZZY Nursing Triage Note: PT WAS SEEN THIS AM IN ER FOR CHEST PAIN. PT PRESENTS BACK TO ED WITH NUMEROUS COMPLAINTS. PT COMPLAINS OF BLOOD SUGAR BEING 385 PRIOR TO DINNER AND PRIOR TO INSULIN DOSE. PT REPORTS SOA, CHEST PRESSURE ON THE RIGHT SIDE, FEELING DIZZY, AND HAVING "LEAL" SPOTS AT THE TOP OF HER VISION FIELD. Nursing Sepsis Screen: No Definite Risk Source of Information: Patient, Family (daughter and ), Spouse Exam Limitations: No Limitations History of Present Illness Date Seen by Provider: Dec 26, 2018 Time Seen by Provider: 19:15 Initial Comments The patient presents to ER by private conveyance with her family and chief complaint that she was in here earlier today with some chest pain and had EKG done worked up and went home and was feeling okay but then she noted her sugar was high before dinner at 350 according to her daughter but 250 according the patient. She took her usual 14 units of short-acting insulin and ate dinner and then by time she got to the ER nursing staff had an Accu-Chek of 100. Patient is not feeling sweaty clammy dysuria fever, chills chest pain shortness of breath. She does however have a leal Matos at the top of her vision she says. She does not have a history of macular degeneration, hemorrhagic retina, required any laser surgery. She says she also feels dizzy with the room spinning around and it makes it hard for her to walk. She's not experienced this before. She does not feel like she is going to pass out. Allergies and Home Medications Allergies Coded Allergies: No Known Drug Allergies (Unverified , 03/17/18) Home Medications Amlodipine Besylate 10 Mg Tablet, 10 MG PO HS, (Reported) Apixaban 2.5 Mg Tablet, 2.5 MG PO BID, (Reported) LAST FILLED #60 05-05-18 Aspirin 81 Mg Tablet.dr, 81 MG PO DAILY, (Reported) Diclofenac Sodium 100 Gm Gel..gram., TOP QID PRN for ARTHRITIS PAIN, (Reported) Dronedarone HCl 400 Mg Tablet, 400 MG PO BID, (Reported) Furosemide 20 Mg Tablet, 20 MG PO DAILY PRN for SWELLING, (Reported) Insulin Aspart 300 Units/3 Ml Solution, 1 UNIT SC AC 80-120 = 0 UNITS 120 -150 = 5 UNITS 151-200 = 10 UNITS 201-300 = 15 UNITS > 300 = 20 UNITS Prescribed by: JONN YAO on 08/28/18 1018 Insulin Glargine,Hum.rec.anlog 300 Unit/1 Ml Insuln.pen, 20 UNIT SQ HS, ( Reported) L.acidoph & Paracasei,B.lactis 1 Each Capsule, 1 CAP PO TID, (Reported) Levofloxacin 250 Mg Tablet, PO UD, (Reported) 7 DAY SUPPLY FILLED 08-20-18 TAKE 2 (250MG) TABS DAY 1 THEN TAKE 1 (250MG) TAB DAYS 2-7 Losartan Potassium 100 Mg Tablet, 100 MG PO DAILY, (Reported) LAST FILLED #90 04-03-18 Metoprolol Succinate 50 Mg Tab.er.24h, 50 MG PO DAILY, (Reported) Potassium Chloride 10 Meq Tablet.er, 10 MEQ PO DAILY PRN for WHEN TAKING FUROSEMIDE, (Reported) Ubidecarenone 50 Mg Tab.chew, 50 MG PO DAILY, (Reported) Patient Home Medication List Home Medication List Reviewed: Yes Review of Systems Review of Systems Constitutional: No chills, No fever EENTM: No ear pain, No eye pain Respiratory: No cough, No short of breath Cardiovascular: No chest pain, No edema Gastrointestinal: No abdominal pain, No nausea Genitourinary: No discharge, No dysuria Past Jyezmxn-Jjtefp-Oeihqj Hx Patient Social History Alcohol Use: Denies Use Number of Drinks Today: DD Alcohol Beverage of Choice: Rum Recreational Drug Use: No Smoking Status: Never a Smoker 2nd Hand Smoke Exposure: No Recent Foreign Travel: No Contact w/Someone Who Travel: No Recent Infectious Disease Expo: No Recent Hopitalizations: No Immunizations Up To Date Tetanus Booster (TDap): Unknown PED Vaccines UTD: No Date of Pneumonia Vaccine: Jun 18, 2017 Date of Influenza Vaccine: Aug 08, 2018 Seasonal Allergies Seasonal Allergies: No Past Medical History Surgeries: Yes (RIGHT FOOT SURGERY) Respiratory: No Currently Using CPAP: No Currently Using BIPAP: No Cardiac: Yes (STENTS, MONITOR PLACED BY DR. RIVAS) Atrial Fibrillation, Heart Attack, Hypertension, Peripheral Vascular Neurological: Yes (SEIZURES WHEN BLOOD SUGAR IS HIGH) Stroke Reproductive Disorders: No [employer] History: Menopausal Sexually Transmitted Disease: No HIV/AIDS: No Genitourinary: Yes ( KIDNEY DISEASE, recurrent urinary tract infection) Renal Failure Gastrointestinal: No Musculoskeletal: Yes Arthritis Endocrine: Yes Diabetes, Insulin dep HEENT: Yes Cataract Loss of Vision: Denies Hearing Impairment: Hard of Hearing, Bilateral Hearing Aide Cancer: No Psychosocial: No Integumentary: No Blood Disorders: No Adverse Reaction/Blood Tranf: No Family Medical History Alzheimer's disease 19 MOTHER, Arthritis 19 FATHER, 19 MOTHER, G8 BROTHER, G8 BROTHER, G8 BROTHER G8 SISTER G8 SISTER Cardiovascular disease 19 MOTHER, G8 BROTHER, Completed stroke 19 MOTHER, G8 SISTER Hypercholesterolemia 19 FATHER, G8 BROTHER, Hypertension 19 MOTHER, Myocardial infarction 19 FATHER, G8 BROTHER, Heart Disease, Diabetes, Hypertension, Stroke Physical Exam Vital Signs Vital Signs - First Documented 12/26/18 19:10 Temp 99.5 Pulse 45 Resp 14 B/P (MAP) 153/100 (117) Pulse Ox 96 Capillary Refill : Less Than 3 Seconds Height, Weight, BMI Height: 5'0.00" Weight: 126lbs. 1.0oz. 57.667366ay; 24.6 BMI Method:Stated General Appearance: No Apparent Distress, WD/WN, Anxious Eyes: Bilateral Eye Normal Inspection, Bilateral Eye PERRL, Bilateral Eye EOMI HEENT: PERRL/EOMI, TMs Normal, Normal ENT Inspection, Pharynx Normal, Moist Mucous Membranes, Other (pupils are 2-3 mm bilateral and funduscopic exam was unrevealing of any overt hemorrhage or tumor.) Neck: Full Range of Motion, Normal Inspection Respiratory: Lungs Clear, Normal Breath Sounds, No Accessory Muscle Use, No Respiratory Distress Cardiovascular: Regular Rate, Rhythm, Normal Peripheral Pulses, Other (trace bipedal edema) Extremity: Normal Capillary Refill, Normal Inspection, Pedal Edema (trace bipedal) Neurologic/Psychiatric: Alert, Oriented x3, No Motor/Sensory Deficits, Normal Mood/Affect, water pumper II-XII Norm as Tested, Other (no drift. No cerebellar signs. Heel to snyder and finger to nose intact bilaterally.) Skin: Normal Color, Warm/Dry Progress/Results/Core Measures Suspected Sepsis Recent Fever Within 48 Hours: No Infection Criteria Present: None New/Unexplained Altered Menta: No Sepsis Screen: No Definite Risk SIRS Temperature:99.5 Pulse: 45 Respiratory Rate: 14 Blood Pressure 153 /100 Mean: 117 Results/Orders Lab Results Laboratory Tests Test 12/26/18 19:15 12/26/18 20:55 Range/Units Glucometer 100 39 *L 70-110 MG/DL My Orders Orders - IVONNE MUHAMMAD Orthostatic Vital Signs (Adult (12/26/18 19:26) Accucheck Stat ONCE (12/26/18 19:26) Ekg Tracing (12/26/18 19:27) Continuous Ekg Monitoring (12/26/18 19:27) Accucheck Stat ONCE (12/26/18 20:52) D50w (Emergency) Syringe (Dextrose 50% 5 (12/26/18 21:00) Accucheck Stat ONCE (12/26/18 21:16) Vital Signs/I&O 12/26/18 12/26/18 19:10 19:41 Temp 99.5 Pulse 45 43 44 44 Resp 14 B/P (MAP) 153/100 (117) 123/54 (77) 125/49 (74) 134/46 (75) Pulse Ox 96 Capillary Refill : Less Than 3 Seconds Blood Pressure Mean: 117 Progress Note #1: Time: 19:31 Progress Note After cleaning the patient's eyeglasses and doing a proper eye funduscopic exam her vision has improved back to normal. Her dizziness may be due to her bradycardia heart rate in the 40s versus less likely vertigo. Neurologically otherwise intact. Orthostatics unremarkable. We'll check a visual acuity scan. Patient also has a history of significant left carotid stenosis 60-80% in 2014 on the CTA. She has a history of multivessel coronary disease, TIA in 2018, maintained on Eliquis with a implanted Lynq device that is past its useful service life. She has a history of intolerance to beta blockers secondary to causing bradycardia and dizziness. She had a CT angiogram here May 2018 after strokelike symptom which revealed 70% left ICA stenosis with calcifications and plaque but no intracranial stenosis. She states that Dr. fulton performed a carotid ultrasound in July and also said there was nothing further needed done surgically at this time. Progress Note #2: Time: 20:12 Progress Note Visual acuity corrected a left 20/30, right 20/25. Bilateral 20/25. Progress Note #3: Time: 20:54 Progress Note Patient and was having some sweating and more confused speech so we rechecked her blood sugar and it was 39. Give her half amp D50. Her reports that she did eat something tonight before coming in. Blood sugar is about 100 when she arrived. Progress Note #4: Time: 21:38 Progress Note We applied tetracaine to both eyes and then got pen tonometry readings on the right eye of 21 and 19 in the left eye 24 and 20. No history of glaucoma. ECG Initial ECG Impression Date: Dec 26, 2018 Initial ECG Impression Time: 19:29 Initial ECG Rate: 42 Initial ECG Rhythm: S.Dinesh Initial ECG Intervals: Normal Initial ECG Impression: Nonspecific Changes, Sinus Bradycardia Initial ECG Comparisson: Unchanged Comment Bradycardia without ST elevation or depression. Consults Consults : Consulting Physician: SILVIO JACOBSEN OD Consults Notes Since the patient has diabetes. He would recommend getting a Rico-Pen and having the patient sleep elevated position tonight. She still having blurry vision tomorrow either they can come out and see her over the lunch break or she can make an appointment to be seen tomorrow in the clinic. Departure Communication (Admissions) Time/Spoke to Admitting Phy: 20:26 Discussed the case with Dr. Yao and she agrees with observation. Time/Spoke to Consulting Phy: 20:21 Discussed the case EKG bradycardia and symptoms with Dr. Rivas and he agrees with observing her overnight on telemetry. Hold beta blockers continue her aspirin. Impression Primary Impression: Symptomatic sinus bradycardia Additional Impressions: Blurry vision, bilateral Hypoglycemia Disposition: ADMITTED INPATIENT Condition: Stable Admissions Decision to Admit Reason: Admit from ER (General) Decision to Admit/Date: Dec 26, 2018 Time/Decision to Admit Time: 20:25 Departure-Patient Inst. Referrals: JONN YAO MD (PCP/Family) Primary Care Physician IVONNE MUHAMMAD Dec 26, 2018 19:33
[2018-12-26 19:41] VITALS: BP_SYST 123; BP_SYST 125; BP_SYST 134; BP_DIAS 46; BP_DIAS 49; BP_DIAS 54
[2018-12-26] MEDS ORDERED: DEXTROSE 50% 50 ML (IMS) SYR ONE (20:55)
[2018-12-26] MEDS ORDERED: DEXTROSE 50% 50 ML (IMS) SYR IV ONE (21:00)
[2018-12-26] MEDS ORDERED: TETRACAINE 0.5% OPHTH SOLN 4 ML BTL (SINGLE DOSE ONLY) ONE (21:29)
[2018-12-26 21:47] VITALS: BP 163/59
--- NOTE | 2018-12-26 21:47 | NUR ---
ABBIE JENKINS admitted to room 409-1, with an admitting diagnosis of SYMPTOMATIC BRADYCARDIA , on 12/26/18 from [place] via , accompanied by STAFF AND FAMILY.ABBIE JENKINS introduced to surroundings, call light, bed controls, phone, TV, temperature control, lights, meal times, smoking policy, visitor policy, side rail policy, bathrooms and showers. Patient Rights given to patient in the handbook. ABBIE JENKINS verbalizes understanding that [facility] is not responsible for the loss or damage to any personal effects or valuables that are kept in the patients posession during their hospitalization.
--- NOTE | 2018-12-26 22:05 | NUR ---
THIS RN CALLED DR. YAO IN REGARDS TO THE PT'S FINGER STICK BLOOD GLUCOSE BEING 49. ORDERS RECEIVED FOR DEXTROSE 5% WATER IV @ 100 MLS/HR FOR 2 HOURS WITH A TOTAL OF 200MLS GIVEN AND NS @100MLS/HR IV FOLLOWING THE DEXTROSE 5% WATER. ORDERS READ BACK AND VERIFIED. WILL CONTINUE TO MONITOR.
[2018-12-26] MEDS ORDERED: D5W 500 ML IV SOLUTION 500 ML IV ONE (22:15)
[2018-12-26] MEDS ORDERED: MELATONIN 3 MG TABLET PO PRN (23:00)
[2018-12-27 00:31] VITALS: BP 158/67
[2018-12-27] MEDS: NS IV 1000 ML 1,000 ML IV SCH ×4 (01:24→22:01)
[2018-12-27 04:00] VITALS: BP 161/72
[2018-12-27 04:50] LABS: BASOPHILS % (AUTO) 0 % (0-10); EOSINOPHILS # (AUTO) 0.2 10^3/uL (0.0-0.3); EOSINOPHILS % (AUTO) 3 % (0-10); HEMATOCRIT 37 % (35-52); HEMOGLOBIN 11.9 G/DL (11.5-16.0); LYMPHOCYTES # (AUTO) 3.4 X 10^3 (1.0-4.0); LYMPHOCYTES % (AUTO) 43 % (12-44); MEAN CORPUSCULAR HEMOGLOBIN 28 PG (25-34); MEAN CORPUSCULAR HGB CONC 32 G/DL (32-36); MEAN CORPUSCULAR VOLUME 88 FL (80-99); MONOCYTES # (AUTO) 0.9 X 10^3 (0.0-1.0); MONOCYTES % (AUTO) 11 % (0-12); NEUTROPHILS # (AUTO) 3.3 X 10^3 (1.8-7.8); NEUTROPHILS % (AUTO) 42 % (42-75); PLATELET COUNT 357 10^3/uL (130-400); RED CELL DISTRIBUTION WIDTH 16.1 % (10.0-14.5); WHITE BLOOD COUNT 7.9 10^3/uL (4.3-11.0)
[2018-12-27 05:16] LABS: BUN/CREATININE RATIO 22; CALCIUM 9.1 MG/DL (8.5-10.1); CARBON DIOXIDE 20 MMOL/L (21-32); CHLORIDE 113 MMOL/L (98-107); CREATININE SERUM 1.32 MG/DL (0.60-1.30); GFR ESTIMATED 38; GLUCOSE 130 MG/DL (70-105); POTASSIUM 4.3 MMOL/L (3.6-5.0); SODIUM 140 MMOL/L (135-145)
[2018-12-27] MEDS: inSUlin ASPART (NovoLOG) 1 UNIT/0.01 ML (CHARGE PER UNIT) SC SCH ×4 (05:23→20:26)
--- NOTE | 2018-12-27 07:53 | Consultation-Cardiology ---
HPI-Cardiology Cardiology Consultation Date of Consultation 12/27/18 Date of Admission Time Seen by Provider: 07:47 Indication: chest pain, dizziness HPI 88 years old lady with history of coronary artery disease, came into the emergency room by ambulance yesterday morning with an episode of chest pain responded to nitroglycerin, she was monitored and discharged home, returned in the evening with dizziness and unsteady gait. Has been complaining of generalized weakness, noted to be bradycardic. So far she has been feeling better but she is still in bed, denied any further episode of chest pain. No palpitation. No syncope or near syncopal episodes. No claudications. Denied any fever or chills. No cough or sputum Home Medications & Allergies Allergies: Coded Allergies: No Known Drug Allergies (Unverified , 03/17/18) Home Medication List Reviewed: Yes LFI-Kwssoa-Jnvstd Hx Patient Social History Marital Status: Employed/Student: retired Alcohol Use: Denies Use Recreational Drug Use: No Smoking Status: Never a Smoker 2nd Hand Smoke Exposure: No Recent Foreign Travel: No Recent Infectious Disease Expo: No Recent Hopitalizations: No Immunizations Up To Date Tetanus Booster (TDap): Unknown Date of Pneumonia Vaccine: Jul 28, 2018 Date of Influenza Vaccine: Aug 08, 2018 Past Medical History past medical history as described below Family Medical History Significant Family History: Heart Disease, Diabetes, Hypertension, Stroke Family History: Alzheimer's disease 19 MOTHER, Arthritis 19 FATHER, 19 MOTHER, G8 BROTHER, G8 BROTHER, G8 BROTHER G8 SISTER G8 SISTER Cardiovascular disease 19 MOTHER, G8 BROTHER, Completed stroke 19 MOTHER, G8 SISTER Hypercholesterolemia 19 FATHER, G8 BROTHER, Hypertension 19 MOTHER, Myocardial infarction 19 FATHER, G8 BROTHER, Review of Systems Constitutional: see HPI, dizziness, malaise, weakness EENTM: see HPI, no symptoms reported, hearing loss Respiratory: no symptoms reported, see HPI; No cough, No dyspnea on exertion, No hemoptysis, No orthopnea, No phlegm, No short of breath, No stridor, No wheezing, No other Cardiovascular: see HPI, chest pain; No edema, No Hx of Intervention, No palpitations, No syncope, No vascular heart diseas, No other Gastrointestinal: no symptoms reported, see HPI Genitourinary: no symptoms reported, see HPI Musculoskeletal: no symptoms reported, see HPI Skin: no symptoms reported, see HPI Psychiatric/Neurological: No Symptoms Reported, See HPI Reviewed Test Results Reviewed Test Results Lab Laboratory Tests Test 12/26/18 19:15 12/26/18 20:55 12/26/18 21:19 12/26/18 22:00 Range/Units Glucometer 100 39 *L 108 49 *L 70-110 MG/DL Test 12/26/18 22:31 12/27/18 04:25 12/27/18 05:22 Range/Units Glucometer 85 122 H 70-110 MG/DL White Blood Count 7.9 4.3-11.0 10^3/uL Red Blood Count 4.22 L 4.35-5.85 10^6/uL Hemoglobin 11.9 11.5-16.0 G/DL Hematocrit 37 35-52 % Mean Corpuscular Volume 88 80-99 FL Mean Corpuscular Hemoglobin 28 25-34 PG Mean Corpuscular Hemoglobin Concent 32 32-36 G/DL Red Cell Distribution Width 16.1 H 10.0-14.5 % Platelet Count 357 130-400 10^3/uL Mean Platelet Volume 11.0 H 7.4-10.4 FL Neutrophils (%) (Auto) 42 42-75 % Lymphocytes (%) (Auto) 43 12-44 % Monocytes (%) (Auto) 11 0-12 % Eosinophils (%) (Auto) 3 0-10 % Basophils (%) (Auto) 0 0-10 % Neutrophils # (Auto) 3.3 1.8-7.8 X 10^3 Lymphocytes # (Auto) 3.4 1.0-4.0 X 10^3 Monocytes # (Auto) 0.9 0.0-1.0 X 10^3 Eosinophils # (Auto) 0.2 0.0-0.3 10^3/uL Basophils # (Auto) 0.0 0.0-0.1 10^3/uL Sodium Level 140 135-145 MMOL/L Potassium Level 4.3 3.6-5.0 MMOL/L Chloride Level 113 H 98-107 MMOL/L Carbon Dioxide Level 20 L 21-32 MMOL/L Anion Gap 7 5-14 MMOL/L Blood Urea Nitrogen 29 H 7-18 MG/DL Creatinine 1.32 H 0.60-1.30 MG/DL Estimat Glomerular Filtration Rate 38 BUN/Creatinine Ratio 22 Glucose Level 130 H 70-105 MG/DL Calcium Level 9.1 8.5-10.1 MG/DL Troponin I < 0.028 <0.028 NG/ML Physical Exam Vital Signs Vital Signs - First Documented 12/26/18 12/26/18 19:10 21:37 Temp 99.5 Pulse 45 Resp 14 B/P (MAP) 153/100 (117) Pulse Ox 96 O2 Delivery Room Air Capillary Refill : Less Than 3 Seconds Height, Weight, BMI Height: 4'9.00" Weight: 114lbs. 0.0oz. 51.000933ls; 24.7 BMI Method:Stated General Appearance: WD/WN, Mild Distress Eyes: Bilateral Eye Normal Inspection, Bilateral Eye PERRL, Bilateral Eye EOMI HEENT: PERRL/EOMI, TMs Normal, Normal ENT Inspection, Pharynx Normal Neck: Full Range of Motion, Normal Inspection, Non Tender, Supple, Carotid Bruit Respiratory: Chest Non Tender, Lungs Clear, Normal Breath Sounds, No Accessory Muscle Use, No Respiratory Distress Cardiovascular: Regular Rate, Rhythm, No Edema, No Gallop, No JVD, Normal Peripheral Pulses, Systolic Murmur Gastrointestinal: Normal Bowel Sounds, No Organomegaly, No Pulsatile Mass, Non Tender, Soft Back: Normal Inspection, No CVA Tenderness, No Vertebral Tenderness Extremity: Normal Capillary Refill, Normal Inspection, Normal Range of Motion, Non Tender, No Calf Tenderness, No Pedal Edema Neurologic/Psychiatric: Alert, Oriented x3, No Motor/Sensory Deficits, Normal Mood/Affect Skin: Normal Color, Warm/Dry Lymphatic: No Adenopathy A/P-Cardiology Admission Diagnosis Unstable angina Dizziness Coronary artery disease Sick sinus syndrome Assessment/Plan Chest pain nonspecific etiology, resulting in angina, reporting improvement, Cardec enzymes were negative, EKG did not show any acute changes, planning to evaluate stress test. Generalized weakness, dizziness and lightheadedness. Sinus bradycardia, improved, continue to monitor Sick sinus syndrome, paroxysmal atrial fibrillation, intolerant to beta blockers in the past with bradycardia and dizziness, has been tolerating Toprol- XL 50 mg daily, I will discontinue the medication and monitor heart rate and blood pressure response. Coronary artery disease-left heart catheterization on 04/04/2013 revealing multivessel disease. Patient had Promus 2.5 x 8 mm stent to LAD, Promus 2.25 x 12 mm stent to diagonal, and complex intervention to the RCA using Promus stents x3, 2.75 x 16 mm, 3.0 x 38 mm, and 3.0 x 12 mm, done by Dr. Vargas at [place]. planning to evaluate stress test TIA, left sided weakness occurred in November 2017, workup showed unremarkable MRI , resolved and reporting improvement. Continue to monitor POE2BC0-HGHm score is 5, yearly risk of stroke without oral anticoagulation is 6.5 percent. Maintained on Eliquis, Multaq. History of Linq implantation, Linq device is ANNY as of July 2017, I am restarting Multaq Hypertension, restart losartan and monitor tolerance and response Hyperlipidemia, controlled, continue to monitor. Diabetes mellitus, followed and managed by primary care physician. Renal insufficiency, managed by primary care physician. Carotid artery stenosis-carotid duplex done in the office in May 2014 revealed significant left ICA stenosis. CTA of the neck showed significant stenosis on the left carotid artery, 60-80 percent. Otherwise mild disease on the right side. Patient was referred to Dr. Correia who recommended monitoring at this time. Monitored by Dr. Correia at [place] Clinical Quality Measures DVT/VTE Risk/Contraindication: Risk Factor Score Per Nursin RFS Level Per Nursing on Admit: 2=Moderate TAMMIE REHMAN MD Dec 27, 2018 07:53
[2018-12-27] MEDS ORDERED: REGADENOSON 0.4 MG/5 ML SYR (LEXISCAN) IV ONE (08:00)
[2018-12-27 08:21] VITALS: BP 170/72
--- NOTE | 2018-12-27 08:51 | History & Physicial ---
History of Present Illness History of Present Illness Reason for visit/HPI PT IS AN 88 Y/O FEMALE WHO IS WELL KNOWN TO ME [facility]. SHE APPARENTLY HAD BEEN TO THE EMERGENCY DEPARTMENT A FEW TIMES YESTERDAY WITH CHEST PAIN, SHE THEN PRESENTED IN THE EVENING WITH DIZZINESS. AT THE ER EVALUATION PRIOR TO HER ADMISSION, NOTE WAS MADE OF BRADYCARDIA. THE ER PHYSICIAN DISCUSSED HER CASE WITH CARDIOLOGY AND THEY DETERMINED THAT SINCE SHE HAD BEEN SEEN IN THE ER SEVERAL TIMES AND WAS COMPLAINING OF DIZZINESS WITH THE BRADYCARDIA, OBSERVATION IN THE HOSPITAL WAS WARRANTED TO DETERMINE IF FURTHER INTERVENTION WAS NECESSARY. PT HAD TWO EPISODES OF HYPOGLYCEMIA IN THE HOSPITAL OVER NIGHT. Date of Admission Dec 26, 2018 at 20:25 Date Seen by a Provider: Dec 27, 2018 Time Seen by a Provider: 08:40 I consulted on this patient on 12/27/18 08:43 Attending Physician Jonn Sow MD Admitting Physician Jonn Sow MD Consult TAMMIE REHMAN MD Allergies and Home Medications Allergies Coded Allergies: No Known Drug Allergies (Unverified , 03/17/18) Home Medications Amlodipine Besylate 10 Mg Tablet, 10 MG PO DAILY, (Reported) Apixaban 2.5 Mg Tablet, 2.5 MG PO BID, (Reported) Aspirin 81 Mg Tablet.dr, 81 MG PO DAILY, (Reported) Dronedarone HCl 400 Mg Tablet, 400 MG PO BID, (Reported) Furosemide 20 Mg Tablet, 20 MG PO DAILY PRN for SWELLING, (Reported) Glucagon,Human Recombinant 1 Mg/Kit Soln, 1 MG IJ UD PRN for BLOOD SUGAR, ( Reported) Insulin Glargine,Hum.rec.anlog 300 Unit/1 Ml Insuln.pen, 18 UNIT SQ HS, ( Reported) Insulin Lispro 100 Unit/1 Ml Insuln.pen, SQ AC, (Reported) 90-120 = 2 UNITS 121-150 = 5 UNITS 151-200 = 8 UNITS 201-250 = 11 UNITS 251- 300 = 14 UNITS >300 + 17 UNITS Losartan Potassium 100 Mg Tablet, 100 MG PO DAILY, (Reported) Ubidecarenone/Vitamin E 1 Each Capsule, 50 MG PO DAILY, (Reported) Patient Home Medication List Home Medication List Reviewed: Yes Past Hvdwyht-Wjrlut-Vowvgi Hx Patient Social History Marrital Status: Living Status: LIVES AT [facility] IN [place] Employed/Student: retired Alcohol Use: Denies Use Number of Drinks Today: DD Alcohol Beverage of Choice: Rum Recreational Drug Use: No Smoking Status: Never a Smoker 2nd Hand Smoke Exposure: No Physical Abuse Screen: No Sexual Abuse: No Recent Foreign Travel: No Contact w/other who traveled: No Recent Hopitalizations: No Recent Infectious Disease Expo: No Immunizations Up To Date Tetanus Booster (TDap): Unknown Pediatric: No Date of Pneumonia Vaccine: Jul 28, 2018 Date of Influenza Vaccine: Aug 08, 2018 Seasonal Allergies Seasonal Allergies: No Surgeries Yes (RIGHT FOOT SURGERY) Respiratory No Currently Using CPAP: No Currently Using BIPAP: No Cardiovascular Yes (STENTS, MONITOR PLACED BY DR. 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 Genitourinary Yes ( KIDNEY DISEASE, recurrent urinary tract infection) Renal Failure Gastrointestinal No Musculoskeletal Yes Arthritis Endocrine History of Endocrine Disorders: Yes Endocrine Disorders: Diabetes, Insulin dep HEENT History of HEENT Disorders: Yes HEENT Disorders: Cataract Loss of Vision: Denies Hearing Impairment: Hard of Hearing, Bilateral Hearing Aide Cancer No Psychosocial History of Psychiatric Problem: No Integumentary History of Skin or Integumenta: No Blood Transfusions History of Blood Disorders: No Adverse Reaction to a Blood Tr: No Reviewed Nursing Assessment Reviewed/Agree w Nursing PMH: Yes Family Medical History Significant Family History: Heart Disease, Diabetes, Hypertension, Stroke Family Hx: Alzheimer's disease 19 MOTHER, Arthritis 19 FATHER, 19 MOTHER, G8 BROTHER, G8 BROTHER, G8 BROTHER G8 SISTER G8 SISTER Cardiovascular disease 19 MOTHER, G8 BROTHER, Completed stroke 19 MOTHER, G8 SISTER Hypercholesterolemia 19 FATHER, G8 BROTHER, Hypertension 19 MOTHER, Myocardial infarction 19 FATHER, G8 BROTHER, Review of Systems Constitutional: No chills, No fever, No malaise, No weakness EENTM: hearing loss; No hoarseness, No throat pain Respiratory: No cough, No dyspnea on exertion, No short of breath Cardiovascular: chest pain (ON ADMISSION); No edema; Hx of Intervention Gastrointestinal: No abdominal pain, No nausea, No vomiting Genitourinary: no symptoms reported Musculoskeletal: no symptoms reported Skin: no symptoms reported Psychiatric/Neurological: Denies Anxiety, Denies Depressed; Other ( INTERMITTENT CONFUSION) Physical Exam Vital Signs Vital Signs - First Documented 12/26/18 12/26/18 19:10 21:37 Temp 99.5 Pulse 45 Resp 14 B/P (MAP) 153/100 (117) Pulse Ox 96 O2 Delivery Room Air Capillary Refill : Less Than 3 Seconds Height, Weight, BMI Height: 4'9.00" Weight: 114lbs. 0.0oz. 51.802352is; 24.7 BMI Method:Stated General Appearance: No Apparent Distress, WD/WN Eyes: Bilateral Eye Normal Inspection, Bilateral Eye PERRL, Bilateral Eye EOMI HEENT: PERRL/EOMI, Pharynx Normal Neck: Full Range of Motion, Normal Inspection, Non Tender, Supple, Carotid Bruit Respiratory: Chest Non Tender, Lungs Clear, Normal Breath Sounds, No Accessory Muscle Use Cardiovascular: Regular Rate, Rhythm, Normal Peripheral Pulses Gastrointestinal: Normal Bowel Sounds, No Organomegaly, No Pulsatile Mass, Non Tender, Soft Rectal: Deferred Back: Normal Inspection, No CVA Tenderness, No Vertebral Tenderness Extremity: Normal Capillary Refill, Non Tender, No Calf Tenderness, No Pedal Edema Neurologic/Psychiatric: Alert, Oriented x3, No Motor/Sensory Deficits, Normal Mood/Affect, technical support assistant II-XII Norm as Tested Skin: Normal Color, Warm/Dry Lymphatic: No Adenopathy Assessment/Plan Assessment and Plan BRADYCARDIA DIZZINESS HYPOGLYCEMIA CHRONIC INSULIN DEPENDENT DIABETES MELLITUS HX OF STROKE HX OF CAD HX OF CAROTID STENOSIS HYPERTENSION ATRIAL FIBRILLATION BRADYCARDIA - PT HAS BEEN ON BETA DENIES THERAPY - WAS TOLERATING THIS WITHOUT INCIDENT - HOWEVER WITH HER CURRENT ISSUES OF BRADYCARDIA - THIS MEDICATION IS TO BE STOPPED AND PT WILL BE MONITORED FOR RESPONSE TO A WASH-OUT OF THE BETA DENISE. DEFER TO CARDIOLOGY. DIZZINESS - DUE TO BRADYCARDIA - MONITOR SYMPTOMS. HYPOGLYCEMIA - IMPROVED WITH D5W OVERNIGHT. CHRONIC INSULIN DEPENDENT DIABETES MELLITUS - MONITOR FSBS, RESUME HOME REGIMEN. HX OF STROKE - SUPPORTIVE CARE AT THIS TIME. HX OF CAD - SEE DR. REHMAN'S NOTE FOR FULL DETAILS - PLANNING ON STRESS TESTING HX OF CAROTID STENOSIS - MONITORED BY DR. SORIANO - HE HAS DECIDED AGAINST SURGICAL INTERVENTION AT THIS TIME. HYPERTENSION - DEFER TO DR. REHMAN - PT TO BE OFF OF METOPROLOL AND STARTED ON ARB ATRIAL FIBRILLATION - DEFER TO DR. REHMAN- HE IS GOING TO RESTART MULTAQ SINCE SHE WILL BE OFF OF BETA DENISE THERAPY, CONTINUE WITH ELIQUIS. Admission Diagnosis BRADYCARDIA DIZZINESS HYPOGLYCEMIA CHRONIC INSULIN DEPENDENT DIABETES MELLITUS HX OF STROKE HX OF CAD HX OF CAROTID STENOSIS HYPERTENSION ATRIAL FIBRILLATION Admission Status: Observation Clinical Quality Measures DVT/VTE Risk/Contraindication: Risk Factor Score Per Nursin RFS Level Per Nursing on Admit: 2=Moderate JONN SOW MD Dec 27, 2018 08:51
[2018-12-27] MEDS ORDERED: DRONEDARONE TABLET 400 MG TABLET PO SCH (09:00)
[2018-12-27] MEDS ORDERED: LOSARTAN 100 MG (COZAAR) TABLET PO SCH (09:00)
[2018-12-27] MEDS: amLODIPine 10 MG (NORVASC) TAB PO SCH (09:42)
[2018-12-27] MEDS: APIXABAN 2.5 MG (ELIQUIS) TABLET PO SCH ×2 (09:42→20:25)
[2018-12-27] MEDS: LOSARTAN 100 MG (COZAAR) TABLET PO SCH (09:42)
[2018-12-27] MEDS: DRONEDARONE TABLET 400 MG TABLET PO SCH ×2 (09:42→20:25)
[2018-12-27] MEDS: ASPIRIN 81 MG CHEW (CHILDREN'S ASA) PO SCH (09:42)
--- NOTE | 2018-12-27 10:00 | NUR ---
ADD ON TO [facility] FAXED FOR [facility] FOR TOMORROW.
--- NOTE | 2018-12-27 10:28 | NUR ---
CM/SS. Patient and her spouse are now residing at [facility] and plan is that patient will return there when medically released. Visited with daughter Isabelle Tobar, family will transport patient back when discharged. SUMMARY: Daughter Isabelle indicates there is a cardiac stress test scheduled for tomorrow with anticipated release thereafter. Patient has history of multiple hospital admissions and complex discharge planning for return home or jail placement. History of intermittent admissions at [facility] and discussions about patient/spouse moving from home into some sort of assisted environment. Thankfully, this has been accomplished, they reside in the more independent area of [facility] and daughters are already thinking they really need to reside inside the main building for access to higher level of care/oversight. No psychosocial needs identified at this time. Daughters are very supportive and available if alternate plans become prominent. Addendum: 12/27/18 at 1052 by MINERVA CASON Adding daughter Oliva Martinezroger as alternate contact and removing spouse because he resides in [facility] with patient, is extremely hard of hearing, and daughters are essential decision-makers: Olvia Anderson, Daughter [address] [place] [address] Requested Registration update demographics.
[2018-12-27] MEDS ORDERED: GLUC1KIT IJ (11:30)
[2018-12-27] MEDS ORDERED: INSU100I23 SQ (11:30)
[2018-12-27] MEDS ORDERED: UBID1CAP3 PO (11:30)
--- NOTE | 2018-12-27 11:38 | NUR ---
WENT OVER THE MEDICATION LIST FAXED OVER FROM [employer] WITH THE PATIENT AND FAMILY IN THE ROOM. THEY ALSO HAD A LIST ON THEIR PHONE. THERE WAS ALSO A PHYSICIAN ORDERS/MEDICATION LIST ON THE CHART FROM THE ASSISTED LIVING. FAMILY STATES SEVERAL OF THE PRN ORDERS ON THAT LIST WERE FROM THE [facility] AND THE PATIENT HAS NOT BEEN USING THEM SINCE SHE HAS BEEN HOME. [employer] FILLED: 12-24-18 FUROSEMIDE 20MG DAILY #30 (FAMILY STATES PRN) 12-24-18 ELIQUIS 2.5MG BID #60 11-16-18 METOPROLOL ER 50MG DAILY #30 10-23-18 HUMALOG KWIK PEN SLIDING SCALE AC 10-23-18 MULTAQ 400MG BID #60 08-24-18 LOSARTAN 100MG DAILY #90 08-06-18 TONY GANN (STATES SHE USES 18 UNITS HS) 07-30-18 AMLODIPINE 10MG DAILY #90 01-03-18 GLUCAGON KIT PRN HAS NOT FILLED POTASSIUM 10MEQ SINCE 09-08-17 #3 TABS - I REMOVED THIS FROM THE MED REC AT THIS TIME. OTC MEDS: ASPIRIN 81MG DAILY CO Q 10 DAILY
[2018-12-27 11:41] VITALS: BP 155/85
--- NOTE | 2018-12-27 14:43 | NUR ---
PT JUST FINISHED EATING AND BECAME CONFUSED AND ANGRY THAT SHE HAD NOT REC'D INSULIN. ASKED METAL CANS SUPERVISOR TO CHECK BLOOD SUGAR. ELEVATED R/T JUST EATING. EXPLAINED TO PT THAT SHE WAS ON SSI AND WOULD CHECK BLOOD SUGAR AROUND 1600.
[2018-12-27 16:07] VITALS: BP 146/69
[2018-12-27] MEDS ORDERED: GLUCAGON EMERGENCY 1 MG/KIT IJ PRN (17:00)
[2018-12-27 20:00] VITALS: BP 179/89
--- NOTE | 2018-12-27 20:32 | NUR ---
THIS RN CALLED DR. YAO IN REGARDS TO THE PT'S BLOOD PRESSURE BEING 179/89 WITH A HEART RATE OF 70 BPM. ORDERS RECEIVED FOR HYDRALAZINE 10 MG PO ONCE. ORDERS READ BACK AND VERIFIED.
[2018-12-27] MEDS ORDERED: [UNRECOGNIZED DRUG - OTHER] SQ SCH (21:00)
[2018-12-27] MEDS ORDERED: INSULIN GLARGINE HUM REC ANLOG 18 UNIT SQ SCH (21:00)
[2018-12-28] VITALS (8 sets, daily range): BP systolic 116–196; BP diastolic 61–98
--- NOTE | 2018-12-28 00:55 | NUR ---
THIS RN CALLED DR. YAO IN REGARDS TO THE PT'S TEMPORAL TEMPERATURE BEING 100.4. ORDERS RECEIVED FOR TORADOL 15 MG IV ONCE, URINALYSIS, CBC AT 0600, CMP AT 0600, AND CHEST X-RAY 2 VIEW AT 0600.
[2018-12-28] MEDS ORDERED: KETOROLAC 15 MG/ML VIAL IVP ONE (01:00)
[2018-12-28] MEDS ORDERED: KETOROLAC 15 MG/ML VIAL ONE (01:44)
--- NOTE | 2018-12-28 06:20 | NUR ---
THIS RN CALLED DR. YAO IN REGARDS TO THE PT'S FINGER STICK BLOOD GLUCOSE BEING 51. ORDERS RECEIVED FOR DEXTROSE 5% WATER IV @ 150 MLS/HR FOR 2 HOURS AND A TOTAL OF 300 MLS THEN SWITCH BACK TO THE NORMAL SALINE IV @ 100 MLS/HR. ORDERS READ BACK AND VERIFIED.
[2018-12-28] MEDS: inSUlin ASPART (NovoLOG) 1 UNIT/0.01 ML (CHARGE PER UNIT) SC SCH ×2 (06:23→11:23)
[2018-12-28 06:26] LABS: BASOPHILS % (AUTO) 0 % (0-10); EOSINOPHILS # (AUTO) 0.1 10^3/uL (0.0-0.3); EOSINOPHILS % (AUTO) 0 % (0-10); HEMATOCRIT 37 % (35-52); HEMOGLOBIN 11.9 G/DL (11.5-16.0); LYMPHOCYTES # (AUTO) 4.7 X 10^3 (1.0-4.0); LYMPHOCYTES % (AUTO) 32 % (12-44); MEAN CORPUSCULAR HEMOGLOBIN 28 PG (25-34); MEAN CORPUSCULAR HGB CONC 32 G/DL (32-36); MEAN CORPUSCULAR VOLUME 87 FL (80-99); MEAN PLATELET VOLUME 10.3 FL (7.4-10.4); MONOCYTES # (AUTO) 1.2 X 10^3 (0.0-1.0); MONOCYTES % (AUTO) 8 % (0-12); NEUTROPHILS # (AUTO) 8.6 X 10^3 (1.8-7.8); NEUTROPHILS % (AUTO) 59 % (42-75); PLATELET COUNT 384 10^3/uL (130-400); RED CELL DISTRIBUTION WIDTH 16.5 % (10.0-14.5); WHITE BLOOD COUNT 14.6 10^3/uL (4.3-11.0)
[2018-12-28] MEDS ORDERED: D5W 500 ML IV SOLUTION 500 ML IV ONE (06:30)
[2018-12-28 06:44] LABS: BILIRUBIN,TOTAL 0.4 MG/DL (0.1-1.0); CALCIUM 9.2 MG/DL (8.5-10.1); CREATININE SERUM 1.23 MG/DL (0.60-1.30); POTASSIUM 4.2 MMOL/L (3.6-5.0); TOTAL PROTEIN 5.6 GM/DL (6.4-8.2)
[2018-12-28] MEDS ORDERED: CATHETER FLUSH 10 ML SYR IV PRN (07:00)
[2018-12-28 07:21] LABS: LYMPHOCYTES % (MANUAL) 27 %; MONOCYTES % (MANUAL) 7 %; NEUTROPHILS % (MANUAL) 66 %
[2018-12-28 07:22] LABS: ANISOCYTOSIS SLIGHT
--- NOTE | 2018-12-28 07:22 | NUR ---
OFF FLOOR --- HEART CATH STAFF TO FLOOR AND TAKING T JEN FOR NU SCAN -- Addendum: 12/28/18 at 0804 by OSCAR LEDEZMA RN PT OFF FLOOR --WILL ASSESS PT WHEN BACK TO FLOOR
[2018-12-28] MEDS: NS IV 1000 ML 1,000 ML IV SCH (07:23)
[2018-12-28] MEDS ORDERED: REGADENOSON 0.4 MG/5 ML SYR (LEXISCAN) IV ONE (08:14)
--- NOTE | 2018-12-28 08:53 | Discharge Summary ---
Diagnosis/Chief Complaint Date of Admission Dec 26, 2018 at 20:25 Date of Discharge Reason Hospital Visit PT IS AN 88 Y/O FEMALE WHO IS WELL KNOWN TO ME FROM [facility]. SHE APPARENTLY HAD BEEN TO THE EMERGENCY DEPARTMENT A FEW TIMES YESTERDAY WITH CHEST PAIN, SHE THEN PRESENTED IN THE EVENING WITH DIZZINESS. AT THE ER EVALUATION PRIOR TO HER ADMISSION, NOTE WAS MADE OF BRADYCARDIA. THE ER PHYSICIAN DISCUSSED HER CASE WITH CARDIOLOGY AND THEY DETERMINED THAT SINCE SHE HAD BEEN SEEN IN THE ER SEVERAL TIMES AND WAS COMPLAINING OF DIZZINESS WITH THE BRADYCARDIA, OBSERVATION IN THE HOSPITAL WAS WARRANTED TO DETERMINE IF FURTHER INTERVENTION WAS NECESSARY. PT HAD TWO EPISODES OF HYPOGLYCEMIA IN THE HOSPITAL OVER NIGHT. Discharge Summary Discharge Physical Examination Allergies: Coded Allergies: No Known Drug Allergies (Unverified , 03/17/18) Vitals & I&Os Vital Signs Date Time Temp Pulse Resp B/P (MAP) Pulse Ox O2 Delivery O2 Flow Rate FiO2 12/28/18 08:42 78 18 152/61 (91) 97 Room Air 12/28/18 08:00 98.4 Hospital Course Pending Labs Laboratory Tests 12/28/18 06:06: Glucometer 51 12/28/18 06:20: White Blood Count 14.6, Red Blood Count 4.22, Hemoglobin 11.9, Hematocrit 37, Mean Corpuscular Volume 87, Mean Corpuscular Hemoglobin 28, Mean Corpuscular Hemoglobin Concent 32, Red Cell Distribution Width 16.5, Platelet Count 384, Mean Platelet Volume 10.3, Neutrophils (%) (Auto) 59, Lymphocytes (%) (Auto) 32 , Monocytes (%) (Auto) 8, Eosinophils (%) (Auto) 0, Basophils (%) (Auto) 0, Neutrophils # (Auto) 8.6, Lymphocytes # (Auto) 4.7, Monocytes # (Auto) 1.2, Eosinophils # (Auto) 0.1, Basophils # (Auto) 0.0, Neutrophils % (Manual) 66, Lymphocytes % (Manual) 27, Monocytes % (Manual) 7, Anisocytosis SLIGHT, Sodium Level 143, Potassium Level 4.2, Chloride Level 117, Carbon Dioxide Level 16, Anion Gap 10, Blood Urea Nitrogen 30, Creatinine 1.23, Estimat Glomerular Filtration Rate 41, BUN/Creatinine Ratio 24, Glucose Level 51, Calcium Level 9.2 , Corrected Calcium 10.0, Total Bilirubin 0.4, Aspartate Amino Transf (AST/SGOT ) 38, Alanine Aminotransferase (ALT/SGPT) 77, Alkaline Phosphatase 104, Total Protein 5.6, Albumin 3.0 Discharge Instructions to patient/family Please see electronic discharge instructions given to patient. Discharge Medications Reviewed and agree with Discharge Medication list on patient's Discharge Instruction sheet Clinical Quality Measures DVT/VTE Risk/Contraindication: Risk Factor Score Per Nursin RFS Level Per Nursing on Admit: 2=Moderate JONN YAO MD Dec 28, 2018 08:53
[2018-12-28] MEDS ORDERED: HYDR-3922 PO (09:04)
--- NOTE | 2018-12-28 09:08 | D/C HH Face to Face Order ---
D/C Face to Face Orders Instructions for Patient [facility] Patient Instructions/FollowUp: FOLLOW UP WITH [facility] IN 1 WK FROM DISCHARGE Physician to follow Patient: [facility] Discharge Diet for Home: ADA Diet Patient Problems: BRADYCARDIA DIZZINESS HYPOGLYCEMIA CHRONIC INSULIN DEPENDENT DIABETES MELLITUS HX OF STROKE HX OF CAD HX OF CAROTID STENOSIS HYPERTENSION ATRIAL FIBRILLATION Patient Data-Allergies,Ht & Wt Patient Allergies: Coded Allergies: No Known Drug Allergies (Unverified , 03/17/18) Height (Feet): 4 Height (Inches): 9.00 Weight (Pounds): 130 Weight (Ounces): 6.0 Home Health Need/Face to Face Date of Face to Face: Dec 28, 2018 Clinical Findings: Generalized weakness and fatigue, Shortness of breath I have seen Pt adse-ve-prsw: Yes Discharged To: Home Diagnosis/Conditions: BRADYCARDIA DIZZINESS HYPOGLYCEMIA CHRONIC INSULIN DEPENDENT DIABETES MELLITUS HX OF STROKE HX OF CAD HX OF CAROTID STENOSIS HYPERTENSION ATRIAL FIBRILLATION Patient is Homebound due to: CognItive deficits, Muscle weakness Homebound Status Due to the above stated illness, injury or surgical procedure (medical condition or diagnosis) and associated clinical findings, the patient is homebound because of his/her inability to leave home except with aid of a supportive device and/or person AND leaving the home requires a considerable and taxing effort or is medically contraindicated. Pt req the following assistanc: Aid of another person, Cane Home Health Nursing Orders Home Health Services Order: Nursing Services, Physical Therapy-Evaluate & Treat Home Health Infusion Therapy Line Start Date: Dec 26, 2018 Line Start Time: 2027 Line Type: Peripheral IV Site Location: Antecubital Therapy Orders Therapy Orders: Physical Therapy Certify Stmt I certify that this patient is under my care and that I, a nurse practitioner or a physician; a floor covering printer assistant working with me, had a face to face encounter that - meets the physician face to face encounter requirements with this patient as dated. JONN YAO MD Dec 28, 2018 09:08
--- NOTE | 2018-12-28 09:15 | Diagnostic Imaging Report ---
INDICATION: Fever. Comparison made with prior examination from 12/26/18. FINDINGS: The heart size is normal. There is mild venous congestion. There is some left basilar subsegmental atelectasis and/or pneumonitis. There may be a tiny left pleural effusion. There is no pneumothorax. The mediastinum is unremarkable. IMPRESSION: Left basilar subsegmental atelectasis and/or pneumonitis and probable tiny left pleural effusion. Mild central pulmonary venous congestion. Dictated by: Dictated on workstation # [id number]
--- NOTE | 2018-12-28 10:50 | Cardiology Progress Note ---
Subjective Date Seen by Provider: Dec 28, 2018 Time Seen by Provider: 10:48 Subjective/Events-last exam patient is laying down in bed, no new complaint, no chest pain. Review of Systems General: No Chills, No Night Sweats, No Fatigue, No Malaise, No Appetite, No Other HEENT: No Head Aches, No Visual Changes, No Eye Pain, No Ear Pain, No Dysphasia , No Sinus Congestion, No Post Nasal Drip, No Sore Throat, No Other Pulmonary: No Dyspnea, No Cough, No Pleuritic Chest Pain, No Other Cardiovascular: No: Chest Pain, Palpitations, Orthopnea, Paroxysmal Noc. Dyspnea, Edema, Lt Headedness, Other Objective-Cardiology Exam Last Set of Vital Signs Vital Signs 12/28/18 12/28/18 12/28/18 08:00 08:42 09:45 Temp 98.4 Pulse 78 Resp 18 B/P (MAP) 152/61 (91) Pulse Ox 97 O2 Delivery Room Air Capillary Refill : Less Than 3 SecondsLess Than 3 Seconds I&O Intake and Output 12/28/18 00:00 Intake Total 3040 ml Output Total 1750 ml Balance 1290 ml Intake Oral 1040 ml IV Total 2000 ml Output Urine Total 1750 ml # Bowel Movements 1 Daily Weight Change No General: Alert, Oriented X3, Cooperative HEENT: Atraumatic, PERRLA Neck: Supple, No JVD, No Thyromegaly Lungs: Clear to Auscultation, Normal Air Movement Heart: Regular Rate, Normal S1, Normal S2, Other (systolic murmur at the left sternal border) Abdomen: Normal Bowel Sounds, Soft, No Tenderness, No Hepatosplenomegaly, No Masses Extremities: No Clubbing, No Cyanosis, No Edema, Normal Pulses, No Tenderness/ Swelling Skin: No Rashes, No Breakdown, No Significant Lesion Neuro: Normal Gait, Normal Speech, Strength at 5/5 X4 Ext, Normal Tone, Sensation Intact Psych/Mental Status: Mental Status NL, Mood NL Results Lab Laboratory Tests 12/28/18 06:20 A/P-Cardiology Admission Diagnosis Unstable angina Dizziness Coronary artery disease Sick sinus syndrome Assessment/Plan Chest pain nonspecific etiology, reporting improvement, stress test showed no ischemia or infarction with normal left ventricular size and function. Generalized weakness, dizziness and lightheadedness. Sinus bradycardia, improved, continue to monitor Sick sinus syndrome, paroxysmal atrial fibrillation, intolerant to beta blockers in the past with bradycardia and dizziness, has been tolerating Toprol- XL 50 mg daily, Arteritis better while off beta blockers. Continue to monitor Coronary artery disease-left heart catheterization on 04/04/2013 revealing multivessel disease. Patient had Promus 2.5 x 8 mm stent to LAD, Promus 2.25 x 12 mm stent to diagonal, and complex intervention to the RCA using Promus stents x3, 2.75 x 16 mm, 3.0 x 38 mm, and 3.0 x 12 mm, done by Dr. Vargas at [place]. Stress test showed no ischemia or infarction with normal LV function. Continue to monitor TIA, left sided weakness occurred in November 2017, workup showed unremarkable MRI , resolved and reporting improvement. Continue to monitor [id number] score is 5, yearly risk of stroke without oral anticoagulation is 6.5 percent. Maintained on Eliquis, Multaq. History of Linq implantation, Linq device is ANNY as of July 2017 Hypertension, Continue current medication, I agree with hydralazine use Hyperlipidemia, controlled, continue to monitor. Diabetes mellitus, followed and managed by primary care physician. Renal insufficiency, managed by primary care physician. Carotid artery stenosis-carotid duplex done in the office in May 2014 revealed significant left ICA stenosis. CTA of the neck showed significant stenosis on the left carotid artery, 60-80 percent. Otherwise mild disease on the right side. Patient was referred to Dr. Correia who recommended monitoring at this time. Monitored by Dr. Correia at [place] Clinical Quality Measures DVT/VTE Risk/Contraindication: Risk Factor Score Per Nursin RFS Level Per Nursing on Admit: 2=Moderate TAMMIE REHMAN MD Dec 28, 2018 10:50
[2018-12-28] MEDS: ASPIRIN 81 MG CHEW (CHILDREN'S ASA) PO SCH (11:16)
[2018-12-28] MEDS: amLODIPine 10 MG (NORVASC) TAB PO SCH (11:16)
[2018-12-28] MEDS: APIXABAN 2.5 MG (ELIQUIS) TABLET PO SCH (11:16)
[2018-12-28] MEDS: LOSARTAN 100 MG (COZAAR) TABLET PO SCH (11:16)
[2018-12-28] MEDS: DRONEDARONE TABLET 400 MG TABLET PO SCH (11:16)
--- NOTE | 2018-12-28 11:52 | NUR ---
Pt is Jew and getting ready for discharge.
--- NOTE | 2018-12-28 11:54 | NUR ---
DISCHARGE PLANNING: Patient to dismiss today back to [facility] with [facility] for Nursing et Physical Therapy. Patient has chosen [facility] for these services. Contacted [facility] and [facility] to notify of dismissal today. Faxed D/C info to [facility]. Patient et daughter deny any further needs at this time.
--- NOTE | 2018-12-28 12:59 | STRESS TEST ---
DATE OF SERVICE: 12/28/2018 LEXISCAN MYOVIEW STRESS TEST REPORT REFERRING PHYSICIAN: Kate Sow MD. Baseline heart rate is 61 and baseline blood pressure is 177/67. Baseline EKG is sinus rhythm with no ischemic changes. In summary, the patient was injected with 10.83 mCi of technetium-99 Myoview and the resting images were obtained. Then, the patient received 0.4 mg of Lexiscan followed by 31.8 mCi of technetium-99 Myoview. Throughout the test, there were no EKG changes. The resting and stress images were reviewed and compared in the short axis, horizontal long axis and vertical long axis views. Review of the images showed good radiotracer uptake with no significant ischemia or infarction. SSS is 1, SDS 1 and TID value 1.11. On the gated images, the left ventricle appeared to be small in size with normal contractility. Calculated ejection fraction is 87%. CONCLUSION: 1. The patient tolerated the Lexiscan well. 2. No ischemia or infarction on SPECT images. 3. Small left ventricular size with normal contractility. Calculated ejection fraction is 87%. Job ID: [id number] DocumentID: [id number] Dictated Date: 12/28/2018 10:36:18 Temperature Logging Operator Date: 12/28/2018 12:58:21 Dictated By: TAMMIE REHMAN MD
== END 2018-12-28 09:00 | disposition home health service (06) ==
LOC: EDUNIT# 19:00 → ER 19:02 → 4TH 20:25 → UNDOADMOB 20:25 → 4TH 21:47 → UNDODISOB 12-28 13:25
PROVIDERS: ADMIT Family Medicine; ATTEND Family Medicine
DX: I25.110 Atherosclerotic heart disease of native coronary artery with unstable angina pectoris (principal); I49.5 Sick sinus syndrome; R42 Dizziness and giddiness; I48.0 Paroxysmal atrial fibrillation; R53.1 Weakness; I10 Essential (primary) hypertension; E78.5 Hyperlipidemia, unspecified; E11.51 Type 2 diabetes mellitus with diabetic peripheral angiopathy without gangrene; N28.9 Disorder of kidney and ureter, unspecified; I65.23 Occlusion and stenosis of bilateral carotid arteries; H91.90 Unspecified hearing loss, unspecified ear; I25.2 Old myocardial infarction; H53.8 Other visual disturbances; Z95.5 Presence of coronary angioplasty implant and graft; Z86.73 Personal history of transient ischemic attack (TIA), and cerebral infarction without residual deficits; Z79.01 Long term (current) use of anticoagulants; Z79.4 Long term (current) use of insulin; Z79.82 Long term (current) use of aspirin
CPT/HCPCS: 36415; 71046; 78452; 80048; 80053; 82962; 84484; 85007; 85025; 85027; 93005; 93017; 93306; 96374; G0378